=== PATIENT | male | born 1960 | race Caucasian/White ===

== ENCOUNTER → 2016-10-14 | Emergency (ER) | payer MEDICARE, OTHER | LOC: ED 13:51 | DX: I73.9 Peripheral vascular disease, unspecified (principal); E87.6 Hypokalemia; E87.1 Hypo-osmolality and hyponatremia; F17.200 Nicotine dependence, unspecified, uncomplicated; Z88.2 Allergy status to sulfonamides | CPT/HCPCS: 80053; 85025; 93925; 99284; J7040 ==

== ENCOUNTER → 2016-11-16 | Emergency (ER) | payer MEDICARE, OTHER ==
[~2016-11-16] VITALS: Ht 167.6 cm; Wt 56.7 kg
--- NOTE | ~2016-11-16 | CONS ---
[facility] [address] [place], [place] [address] Draft DATE OF CONSULATION: 11/16/16 IDENTIFICATION The patient came to the ER complaining of left buttock pain for 5 days. He could not eat 5 days ago because he says it hurts and need to have a bowel movement. An ER doctor felt this tender mass and called me thinking it was a perirectal abscess and I looked at him and said, "you know, it very well may be an abscess," but this thing is kind of far away from his rectum and there is no redness at all that I can see, which I usually see with perirectal abscesses as I thought that the patient should have further workup with a CT of his abdomen and pelvis with IV contrast to try to sort this out. The patient carries a little bit of medical baggage with what sounds like excessive alcohol usage. The patient plays it down, but he has elevated LFTs, he has cirrhosis, he has some ascites and bilirubin 7.4, half of is direct and half of is indirect. His AST is up. The radiologist on his CT says he has evidence of cirrhosis and portal hypertension also. The patient says he has not had any fevers. He says he is allergic to nothing. Takes no medicines. Operations includes what sounds like an AF bypass graft in [place] years ago. He appears quite malnourished, quite unkempt and he was a little bit hypotensive when he came in with a blood pressure in the 90s. With pain medicine, went down into the mid-80s, but now it is back up to the 100s with fluids. His white count is 20,000 and the ER doctor already gave him some Vancomycin. I suggested something t h at kills stool bugs like Levaquin and Flagyl and I went and talked to our Hospitalist with a feeling that this man if we operated on him here, we would require help because he is pretty ill looking. Hospitalist suggested Cefepime because he says a lot of our stool bugs are not sensitive to Levaquin, so we added Cefepime and I told him to go ahead and get a CT scan, give him fluids and give him some Potassium because his potassium was 2.8, and it took about an hour to get a CT scan, maybe a little bit longer. I reviewed the CT scan with the radiologist. Radiologist says this is a huge pelvic abscess that is pushing down into his perineum on his gluteus amelia and during the course of this work up, it became obvious that this ean very well might do better wi th possible interventional radiology rather than surgical treatment. I think anesthesia in this fellow who is malnourished and who has likely some severe liver disease could tip him over. Our Hospitalist clearly said that if this ean has cirrhosis, we should not take care of him here. So I went back and talked to the ER doctor and told him I thought that we should ship him somewhere where they have Interventional Radiology, suggested wherever he preferred or the [place]. The rest of his history and physical, he denies hypertension, diabetes, tuberculosis, seizures. Does not know if he has had transfusions. He says he quit smoking today. He said he drinks 3 beers a day, Georges, 16 ounces, I suspect it is more. He has no history of thromboembolic disease. He is not , never been, has 2 children, 1 in [place], 1 in [place]. Does not have any communication with them. A friend of his, Lele Mcintyre, he said to talk to if he has serious problems. He is not employed. 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 He was in the at some point in the past. He says he has had an ID in the past. Does not have any angina. Says his lungs are okay. Denies COPD. Says his GI tract is okay. Denies problems, skin problem, blood problems. Says his muscles are stiff and denies nerve PATIENT NAME: LARRY MCGOVERN CONSULTATION DATE OF : 56 PHYSICIAN: RAUL JAQUEZ MD REPORT #: [id number] REPORT IS CONFIDENTIAL AND NOT TO BE RELEASED WITHOUT AUTHORIZATION [facility] [address] [place], [place] [address] Draft problems. PHYSICAL EXAMINATION VITAL SIGNS: His blood pressure was pulse was in the 80s. He is afebrile. HEAD, EYES, EARS, NOSE, AND THROAT: Appear normal. His face has pretty good size, golf ball sized sebaceous cyst on his cheek, which nobody has dealt with. At some point in future that likely should be dealt with if he survives all this. CHEST: Pretty clear. I told to go ahead and get a chest x-ray. ABDOMEN: Healed midline incision. No abdominal tenderness. EXTREMITIES: He got a palpable right femoral pulse. Cannot feel a left femoral pulse. I suspect that limb of his graft is occluded. I cannot feel any pedal pulses anywhere. RECTAL: Everything feels okay. I got to say he has disk bulging in his left buttock in the perineum a good 3 inches from his anus and a CT kind of confirmed. Our radiologist here says that he cannot do interventional techniques here. I think he should go somewhere where interventional techniques likely should be the first point of attack and if that does not work, other surgical issues. The option is to send him to [place] or to a nearby larger institution that has those capability. It was discussed by me with the ER doctor and hopefully I will get him on road and get him some help. Of note, I did discuss the code situation with the patient. He said he did not want to be coded. I suspect that he already got Cefepime, Flagyl and Vancomycin and Levaquin in him, a little bit of pain medicine, a little bit of nausea medicine. I told him that he ought to put a Laguerre in him, probably put him on some oxygen and get him on the road. I have discussed this thoroughly with the ER doctor, thoroughly with our Hospitalist doctor and hopefully people will be able to help him. Total time spent back and forth to x-ray, seeing the patient in the ER, dictating, reviewing labs and discussing him with the Hospitalist was about an hour. MD LICO Camilo/Essence /[id number] cc: VERONICA Gallo PATIENT NAME: LARRY MCGOVERN CONSULTATION DATE OF : 56 PHYSICIAN: RAUL JAQUEZ MD REPORT #: [id number] REPORT IS CONFIDENTIAL AND NOT TO BE RELEASED WITHOUT AUTHORIZATION
--- NOTE | 2016-11-16 20:16 | EKG ---
[facility] [address] [facility] [place], [place] [address] Signed Normal sinus rhythm Low voltage QRS Prolonged QT Abnormal ECG No previous ECGs available Confirmed by RIAN CALERO MD ([id number]) on 11/16/2016 8:16:30 PM Electronically Signed By: RIAN CALERO MD 11/16/16 2016 PATIENT NAME: LARRY MCGOVERN Kwaku Electrocardiogram DATE OF : 56 PHYSICIAN: RIAN CALERO MD REPORT #: [id number] REPORT IS CONFIDENTIAL AND NOT TO BE RELEASED WITHOUT AUTHORIZATION
== END ==
LOC: ED 09:20
DX: L02.31 Cutaneous abscess of buttock (principal); K65.1 Peritoneal abscess; E80.6 Other disorders of bilirubin metabolism; E87.6 Hypokalemia; E46 Unspecified protein-calorie malnutrition; F17.200 Nicotine dependence, unspecified, uncomplicated; I73.9 Peripheral vascular disease, unspecified; J44.9 Chronic obstructive pulmonary disease, unspecified
CPT/HCPCS: 74177; 80053; 82248; 83605; 83880; 84484; 85025; 85610; 86850; 86900; 86901; 87040; 93005; 93010; 96361; 96365; 96366; 96368; 96375; 99291; 99292; J0692; J1170; J2405; J3370; J3480; J7030; J7060; Q9967

== ENCOUNTER 2019-10-03 10:24 | Emergency (ER) | payer MEDICARE, OTHER ==
[~2019-10-03] VITALS: Ht 167.6 cm; Wt 56.7 kg
--- OUTSIDE RECORDS SUMMARY | ~2019-10-03 | XMS | Encounter Summary ---
Demographics + + + | Address | [address] | | | [place] [address] | + + + | Home Phone | | + + + | Preferred Language | Unknown | + + + | Marital Status | Single | + + + | Presybeterian Affiliation | BAP | + + + | Race | White | + + + | Ethnic Group | Not or | + + + Author + + + | Author | [facility] | + + + | Organization | [facility] [employer] [facility] | + + + | Address | Unknown | + + + | Phone | Unavailable | + + + Support + + +---------+ + | Name | Relationship | Address | Phone | + + +---------+ + | Lele Conley | ECON | Unknown | | + + +---------+ + Care Team Providers + +------+ + | Care Clinical Systems Educator Name | Role | Phone | + +------+ + PCP | Unavailable | + +------+ + Encounter Details +--------+ + + + + | Date | Type | Department | Care Team | Description | +--------+ + + + + | 04/30/ | Respiratory | Respiratory | Nikita Holliday | | | 2007 | Therapy | Therapy [address] | [phone] | | | | | [address] | | | | | | Mailcode: [address] | | | | | | [place], [place] | | | | | | [address] | | | | | | [phone] | | | +--------+ + + + [...] on file | | + + + + + + + | Job Start Date | Occupation | Industry | + + + + | Not on file | Not on file | Not on file | + + + + + + + + | Travel History | Travel Start | Travel End | + + + + + + | No recent travel history available. | + + documented as of this encounter Plan of Treatment Not on filedocumented as of this encounter Procedures + +--------+ + + + | Procedure Name | Priori | Date/Time | Associated Diagnosis | Comments | | | ty | | | | + +--------+ + + + | RESP CARE THERAPY | Routin | 05/01/2007 | | Results for this | | | e | 11:30 PM | | procedure are in the | | | | PST | | results section. | + +--------+ + + + | RESP CARE THERAPY | Routin | 05/01/2007 | | Results for this | | | e | 3:16 AM | | procedure are in the | | | | PST | | results section. | + +--------+ + + + documented in this encounter Results RESP CARE THERAPY (05/01/2007 11:30 PM PST) + + + + + + | Component | Value | Ref Range | Performed | Pathologist | | | | | At | Signature | + + + + + + | RESPIRATORY | Oxygen device on | | [facility] | | | CARE | standby, nasal | | RESPIRATORY | | | | canula.Electronically | | THERAPY | | | | Signed by: George Caputo, | | | | | | SETTLEMENT WORKER | | | | + + + + + + + + | Specimen | + + | | + + + + + | Narrative | Performed At | + + + | Ordered by an unspecified provider. | [facility] | | | RESPIRATORY | | | THERAPY | + + + + + + + + | Performing | Address | City/State/Zipcode | Phone Number | | Organization | | | | + + + + + | [facility] | [address] | [place], [place] | | | THERAPY | [address] | [address] | | + + + + + | [facility] | [address] | [place], [place] | | | THERAPY | [facility] | [address] | | + + + + + RESP CARE THERAPY (05/01/2007 3:16 AM PST) + + + + + + | Component | Value | Ref Range | Performed | Pathologist | | | | | At | Signature | + + + + + + | RESPIRATORY | Nasal cannula at 4 | | [facility] | | | CARE | LPM.Electronically | | RESPIRATORY | | | | Signed by: Fern | | THERAPY | | | | DIE[place] Winter | | | | + + + + + + + + | Specimen | + + | | + + + + + | Narrative | Performed At | + + + | Ordered by an unspecified provider. | [facility] | | | RESPIRATORY | | | THERAPY | + + + + + + + + | Performing | Address | City/State/Zipcode | Phone Number | | Organization | | | | + + + + + | [facility] | [address] | [place], [place] | | | THERAPY | [address] | [address] | | + + + + + | [facility] | [address] | [place], [place] | | | THERAPY | [facility] | [address] | | + + + + + documented in this encounter Visit Diagnoses Not on filedocumented in this encounter"
--- OUTSIDE RECORDS SUMMARY | ~2019-10-03 | XMS | Encounter Summary ---
Demographics + + + | Address | [address] | | | [place] [address] | + + + | Home Phone | | + + + | Preferred Language | Unknown | + + + | Marital Status | Single | + + + | Protestant Affiliation | BAP | + + + | Race | White | + + + | Ethnic Group | Not or | + + + Author + + + | Organization | Unknown | + + + | Address | Unknown | + + + | Phone | Unavailable | + + + Support + + +---------+ + | Name | Relationship | Address | Phone | + + +---------+ + | Lele Conley | ECON | Unknown | | + + +---------+ + Care Team Providers + +------+ + | Care Catalytic Converter Operator Helper Name | Role | Phone | + +------+ + PCP | Unavailable | + +------+ + Encounter Details +--------+ + + + + | Date | Type | Department | Care Team | Description | +--------+ + + + + | // | Discharge | | Bina Harrington, | D/C Summary ODDS | | 2008 | Summary-Tra | | GNP [address] | | | | nscribed | | [facility] | | | | | | [place] [address] | | | | | | [phone] | | +--------+ + + + + [...] + + documented as of this encounter Discharge Summaries Bina Harrington - 05/13/2007 1:35 PM PDT [id number] 8005/02/2007 [id number] FROILAN JUAREZ [id number] Admission Date: 04/29/2007 Discharge Date: 05/02/2007 Staff Physician: Bina Harrington N.P. ADDENDUM The patient phoned prescription of Keflex 500 mg p.o. q.i.d. x5 days to [facility] at [phone]. Bina Harrington N.P. / [id number] / [id number] / [id number] / Reviewed or Edited By Bina Harrington on 05-04-2007 Electronically signed by Orlando Churchill 05-13-2007 01:33:53 PM documented in this encounter Plan of Treatment Not on filedocumented as of this encounter Visit Diagnoses Not on filedocumented in this encounter"
--- OUTSIDE RECORDS SUMMARY | ~2019-10-03 | XMS | Encounter Summary ---
Demographics + + + | Address | [address] | | | [place] [address] | + + + | Home Phone [...] Author + + + | Author | [facility] | + + + | Organization | [facility] | + + + | Address | Unknown | + + + | Phone | Unavailable | + + + Support + + +---------+ + | Name | Relationship | Address | Phone | + + +---------+ + | Lele Conley | ECON | Unknown | | + + +---------+ + Care Team Providers + +------+ + | Care Air Traffic Controller Name | Role | Phone | + +------+ + | No Pcp Per Patient | PCP | Unavailable | + +------+ + Reason for Visit +--------+ + | Reason | Comments | +--------+ + | Sepsis | | +--------+ + | Other | Pelvic Abscess | +--------+ + AUTH/CERT +--------+--------+ + + + + | Status | Reason | Specialty | Diagnoses / | Referred By | Referred To | | | | | Procedures | Contact | Contact | +--------+--------+ + + + + | | | | | | | +--------+--------+ + + + + Encounter Details +--------+ + + + + | Date | Type | Department | Care Team | Description | +--------+ + + + + | 11/17/ | Emergency | [facility] Emergency | Cristhian Mayer, | | | 2016 | | Department [address] | [address] [facility] | | | | | [address] | [facility] [place] | | | | | [facility] | [place], [place] | | | | | [place], [place] | [address] | | | | | [address] | [phone] | | | | | [phone] | | | +--------+ + + + [...] + + documented as of this encounter Medications at Time of Discharge + + + +---------+ + + | Medication | Sig | Dispensed | Refills | Start | End Date | | | | | | Date | | + + + +---------+ + + | | take 1 tablet by | 50 | 0 | 05/26/19 | | | hydrocodone-acetamin | oral route every 4-6 | | | 08 | | | ophen 5-500 mg Oral | hours as needed for | | | | | | Tablet | pain | | | | | + + + +---------+ + + documented as of this encounter Plan of Treatment Not on filedocumented as of this encounter Visit Diagnoses Not on filedocumented in this encounter"
--- OUTSIDE RECORDS SUMMARY | ~2019-10-03 | XMS | Encounter Summary ---
Demographics + + + | Address | [address] | | | [place] [address] | + + + | Home Phone | | + + + | Preferred Language | Unknown | + + + | Marital Status | Single | + + + | Orthodox Affiliation | BAP | + + + | Race | White | + + + | Ethnic Group | Not or | + + + Author + + + | Author | [facility] | + + + | Organization | [facility] | + + + | Address | Unknown | + + + | Phone | Unavailable | + + + Support + + +---------+ + | Name | Relationship | Address | Phone | + + +---------+ + | Lele Conley | ECON | Unknown | | + + +---------+ + Care Team Providers + +------+ + | Care Operator Weapon Locating Radar Name | Role | Phone | + +------+ + PCP | Unavailable | + +------+ + Encounter Details +--------+ + + + + | Date | Type | Department | Care Team | Description | +--------+ + + + + | / | Document-Sc | UNKNOWN DEPARTMENT | Unknown . | | | 2007 | anned | [address] | | | | | | [address] | | | | | | [place], [place] | | | | | | [address] | | | +--------+ + + + [...] | + +--------+ + + + | ORDERS OTHER | | 04/29/2007 | | Results for this | | | | 12:00 AM | | procedure are in the | | | | PST | | results section. | + +--------+ + + + | ORDERS OTHER | | 04/29/2007 | | Results for this | | | | 12:00 AM | | procedure are in the | | | | PST | | results section. | + +--------+ + + + documented in this encounter Results ORDERS OTHER (04/29/2007 12:00 AM PST) + + + | Narrative | Performed At | + + + | | | + + + + + | Transcriptions | + + | Nikita Holliday - 07/22/2011 9:38 AM PDT | + + ORDERS OTHER (04/29/2007 12:00 AM PST) + + + | Narrative | Performed At | + + + | | | + + + + + | Transcriptions | + + | Nikita Holliday - 07/22/2011 10:15 AM PDT | + + documented in this encounter Visit Diagnoses Not on filedocumented in this encounter"
--- OUTSIDE RECORDS SUMMARY | ~2019-10-03 | XMS | Encounter Summary ---
Demographics + + + | Address | [address] | | | [place] [address] | + + + | Home Phone | | + + + | Preferred Language | Unknown | + + + | Marital Status | Single | + + + | Restorationism Affiliation | BAP | + + + | Race | White | + + + | Ethnic Group | Not or | + + + Author + + + | Author | [facility] [employer] [facility] | + + + | Organization | [facility] | + + + | Address | Unknown | + + + | Phone | Unavailable | + + + Support + + +---------+ + | Name | Relationship | Address | Phone | + + +---------+ + | Lele Conley | ECON | Unknown | | + + +---------+ + Care Team Providers + +------+ + | Care Fusion Operator Name | Role | Phone | + +------+ + PCP | Unavailable | + +------+ + Encounter Details +--------+ + + + + | Date | Type | Department | Care Team | Description | +--------+ + + + + | 04/30/ | Respiratory | Respiratory | Nikita Holliday | | | 2007 | Therapy | Therapy [address] [facility] | [phone] | | | | | [address] | | | | | | Mailcode: [address] | | | | | | [place], [place] | | | | | | [address] | | | | | | [phone] | | | +--------+ + + + [...] Caputo, | | | | | | CARPENTER PROTOTYPE | | | | + + + [...] [facility] | [address] | [place], [place] | | | THERAPY | [address] | [address] | | + + + + + | [facility] | [address] | [place], [place] | | | THERAPY | [facility] | [address] | | + + + + + [...] [facility] | [address] | [place], [place] | | | THERAPY | [address] | [address] | | + + + + + | [facility] | [address] | [place], [place] | | | THERAPY | [facility] | [address] | | + + + + + documented in this encounter Visit Diagnoses Not on filedocumented in this encounter"
--- OUTSIDE RECORDS SUMMARY | ~2019-10-03 | XMS | Encounter Summary ---
Demographics + + + | Address | [address] | | | [place] [address] | + + + | Home Phone | | + + + | Preferred Language | Unknown | + + + | Marital Status | Single | + + + | Tenriism Affiliation | BAP | + + + | Race | White | + + + | Ethnic Group | Not or | + + + Author + + + | Author | [facility] | + + + | Organization | [facility] [employer] [facility] | + + + | Address | Unknown | + + + | Phone | Unavailable | + + + Support + + +---------+ + | Name | Relationship | Address | Phone | + + +---------+ + | Lele Conley | ECON | Unknown | | + + +---------+ + Care Team Providers + +------+ + | Care .Net Developer Name | Role | Phone | + +------+ + PCP | Unavailable | + +------+ + Encounter Details +--------+ + + + + | Date | Type | Department | Care Team | Description | +--------+ + + + + | 05/24/ | Telephone | Vascular Surgery | Orlando Mancilla, | | | 2007 | | at [facility] [address] | [address] | | | | | [address] | [address] | | | | | Physicians [place], | [place], [place] | | | | | [address] [place] [address] | [address] | | | | | [place], [place] | [phone] | | | | | [address] | | | | | | [phone] | | | +--------+ + + + [...]
--- OUTSIDE RECORDS SUMMARY | ~2019-10-03 | XMS | Encounter Summary ---
Demographics + + + | Address | [address] | | | [place] [address] | + + + | Home Phone [...] Author + + + | Author | [facility] | + + + | Organization | [facility] [employer] [facility] | + + + | Address | Unknown | + + + | Phone | Unavailable | + + + Support + + +---------+ + | Name | Relationship | Address | Phone | + + +---------+ + | Lele Conley | ECON | Unknown | | + + +---------+ + Care Team Providers + +------+ + | Care Environmental Scientist Name | Role | Phone | + [...] | | | | | [address] [facility] | [facility] [address] | | | | | [address] Mailcode: [address] | [place], [place] | | | | | [facility] | [address] | | | | | [place], [place] | [phone] | | | | | [address] | | | | | | [phone] | | | +--------+ + + + [...] + + + + | PRODUCT | [id number] | | [facility] | | | UNIT [...] + + + + + | [facility] DEPARTMENT OF | [address] | [place] [address] | | | PATHOLOGY | [address] | | | + + + + + | [facility] DEPARTMENT OF | [address] | [place] [address] | | | PATHOLOGY | [address] [...] | + + + + + | [facility] | [address] [facility] | [place] [address] | | | PATHOLOGY | [address] | | | + + + + + | [facility] DEPARTMENT OF | [facility] | [place] [address] | | | PATHOLOGY | [address] | | | + + + + + documented in this encounter Visit Diagnoses Not on filedocumented in this encounter"
--- OUTSIDE RECORDS SUMMARY | ~2019-10-03 | XMS | Clinical Summary ---
Demographics + + + | Address | [address] | | | [place] [address] | + + + | Home Phone | | + + + | Preferred Language | Unknown | + + + | Marital Status | Single | + + + | Episcopalian Affiliation | BAP | + + + | Race | White | + + + | Ethnic Group | Not or | + + + Author + + + | Author | NON REVENUE LOCATIONS | + + + | Organization | NON REVENUE LOCATIONS | + + + | Address | Unknown | + + + | Phone | Unavailable | + + + Support + + +---------+ + | Name | Relationship | Address | Phone | + + +---------+ + | Lele Conley | ECON | Unknown | | + + +---------+ + Care Team Providers + +------+ + | Care Painter And Body Mechanic Apprentice Name | Role | Phone | + +------+ + | No Pcp Per Patient | PCP | Unavailable | + +------+ + Source Comments [facility] is fully live [facility] both [facility] and [facility] Allergies Not on File Medications + + + +---------+------+------+-------+ | Medication | Sig | Dispensed | Refills | Star | End | Statu | | | | | | t | Date | s | | | | | | Date | | | + + + +---------+------+------+-------+ | | take 1 tablet by | 50 | 0 | 03/2 | | Activ | | hydrocodone-acetamin | oral route every 4-6 | | | 7/20 | | e | | ophen 5-500 mg Oral | hours as needed for | | | 08 | | | | Tablet | pain | | | | | | + + + +---------+------+------+-------+ Active Problems Not on file Social History + +-------+ +--------+------+ | Tobacco [...] recent travel history available. | + + Last Filed Vital Signs Not on file Plan of Treatment + + + + + | Health Maintenance | Due Date | Last Done | Comments | + + + + + | Influenza (Flu) | | | | | vaccination (#1) | 9 | | | + + + + + | Pneumococcal | Aged Out | | No longer eligible | | vaccination | | | based on patient's | | | | | age to complete this | | | | | topic | + + + + + Results Not on filefrom Last 3 Months Insurance + +--------+ +--------+ + +--------+ | Payer | Benefi | Subscriber | Effect | Phone | Address | Type | | | t Plan | ID | lance | | | | | | / | | Dates | | | | | | Group | | | | | | + +--------+ +--------+ + +--------+ | MEDICARE | MEDICA | xxxxxxxxxx | 04/30/19 | [phone] | [address] | [address] | | | RE A & | | 08-Pre | [phone] | [phone] | [address] | | | B | | sent | | [place] | | | | | | | | [address] | | + +--------+ +--------+ + +--------+ | SYSTEMS MANAGER MEDICAID | SYSTEMS MANAGER | xxxxxxxx | 10/31/19 | | | Medica | | | CAREOR | | 12-Pre | | | id | | | | | sent | | | | | | HEALTH | | | | | | | | SHARE | | | | | | + +--------+ +--------+ + +--------+ + +--------+ +--------+ + + | Guarantor Name | Accoun | Relation to | Date | Phone | Billing Address | | | t Type | Patient | of | | | | | | | | | | + +--------+ +--------+ + + | Jairo Theodore | Person | Self | [birth year] | [address] | | | al/Fam | | [address] | [phone] | [address] [place], | | | [place] | | | [address] (Home) | [place] [address] | + +--------+ +--------+ + +"
--- OUTSIDE RECORDS SUMMARY | ~2019-10-03 | XMS | Encounter Summary ---
Demographics + + + | Address | [address] | | | [place] [address] | + + + | Home Phone | | + + + | Preferred Language | Unknown | + + + | Marital Status | Single | + + + | Jainism Affiliation | BAP | + + + | Race | White | + + + | Ethnic Group | Not or | + + + Author + + + | Author | [facility] | + + + | Organization | [facility] | + + + | Address | Unknown | + + + | Phone | Unavailable | + + + Support + + +---------+ + | Name | Relationship | Address | Phone | + + +---------+ + | Lele Conley | ECON | Unknown | | + + +---------+ + Care Team Providers + +------+ + | Care Eligibility Consultant Name | Role | Phone | + +------+ + PCP | Unavailable | + +------+ + Encounter Details +--------+ + + + + | Date | Type | Department | Care Team | Description | +--------+ + + + + | 04/29/ | Procedure - | Vascular Surgery | Orlando Churchill, | Operative Report | | 2007 | | Interventional 3[address] | [address] | | | | Transcribed | [address] [facility] | Beny Ayesha Catherine | | | | | [address] Mail[address]: [address] | [place], [place] | | | | | [facility] | [address] | | | | | [place], [place] | [phone] | | | | | [address] | | | | | | [phone] | | | +--------+ + + + [...] Churchill MD - 04/30/2007 12:00 AM PST [id number] | | [id number] THEODORE LARRY [id number] Date: | | 04/30/2007 Attending Surgeon: Orlando Churchill M.D. Co-Surgeon: Rudolph Brewer M.D. | | Oil Burner(s): Jacky Morgan M.D. 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 Postoperative Diagnosis(es): Abdominal aortic | | pseudoaneurysm. Procedures Performed: Endovascular repair of abdominal aortic | | pseudoaneurysm. Anesthesia: General. Indications: This is a 47-year-old man who was | | flown to [facility] with an abdominal aortic pseudoaneurysm at the [...] The aneurysm was repaired with 2 Zenith Cook endovascular components. | | The most proximal [...] into the | | abdominal aorta. A 4-Cambodian pigtail catheter was then placed over the guidewire at | | approximately the level of the renal artery origins. A separate site on the graft limb | | was then punctured with an 18-gauge needle, and the guidewire advanced into the | | abdominal aorta. The patient was systematically heparinized at this point. A 16-Cambodian | | sheath was then placed over [...] aortofemoral graft limb. An | | iliac reflector driller and deburrer that is 12 mm at the proximal [...] | condition. Orlando Churchill M.D. OUSMANE / [id number] / [id number] / [id number] / D: | | 04/30/2007 Electronically signed [...] direct vision into the abdominal aorta. A 4-Cambodian pigtail | | catheter was then placed over the guidewire at approximately the level of | | the renal artery origins. | | | | A separate site on the graft limb was then punctured with an 18-gauge | | needle, and the guidewire advanced into the abdominal aorta. The patient | | was systematically heparinized at this point. A 16-Cambodian sheath was then | | placed over [...] | | aortofemoral graft limb. An iliac reflector driller and deburrer that is 12 mm at the proximal [...] | | GJL / HS | | [id number] / [id number] / [id number] / | | | | | | | | | | | | Electronically signed by Orlando Churchill 05-13-2007 01:33:44 PM | | | | | + + documented in this encounter Visit Diagnoses Not on filedocumented in this encounter"
--- OUTSIDE RECORDS SUMMARY | ~2019-10-03 | XMS | Encounter Summary ---
Demographics + + + | Address | [address] | | | [place] [address] | + + + | Home Phone [...] Providers + +------+ + | Care Vegetable Loader Machine Operator Name | Role | Phone | [...] Rd | | | | | | [place] [address] | | +--------+ + + + + [...] documented as of this encounter Discharge Summaries Roman Swartz - 05/13/2007 1:34 PM [facility] [id number] FROILAN JUAREZ [id number] Admission Date: 04/29/2007 Discharge Date: 05/02/2007 Staff [...] abdominal aortic pseudoaneurysm. He was transferred to [facility] via [facility] for definitive care. During [...] appointment. I also e-mailed the Vascular Surgery herpetologist with the patient's information to call the patient to schedule appointment as well. The patient should also follow up with his primary care doctor in 1 to 2 weeks and is to call to schedule appointment. Roman Swartz M.D. Orlando Churchill M.D. PDF / HS [id number] / [id number] / [id number] / Reviewed or Edited By Roman Swratz M.D. on 05-10-2007 Electronically signed by Orlando Churchill 05-13-2007 01:33:23 PM documented in this encounter Plan of Treatment Not on filedocumented as of this encounter Visit Diagnoses Not on filedocumented in this encounter"
--- OUTSIDE RECORDS SUMMARY | ~2019-10-03 | XMS | Encounter Summary ---
Demographics + + + | Address | [address] | | | [place] [address] | + + + | Home Phone | | + + + | Preferred Language | Unknown | + + + | Marital Status | Single | + + + | Sikh Affiliation | BAP | + + + | Race | White | + + + | Ethnic Group | Not or | + + + Author + + + | Author | [facility] | + + + | Organization | [facility] | + + + | Address | Unknown | + + + | Phone | Unavailable | + + + Support + + +---------+ + | Name | Relationship | Address | Phone | + + +---------+ + | Lele Conley | ECON | Unknown | | + + +---------+ + Care Team Providers + +------+ + | Care Insulation Board Coater Operator Name | Role | Phone | [...] + + | 11/17/ | Emergency | [facility] Emergency | Cristhian Mayer, | | | 2016 | | Department [address] | [address] [facility] | | | | | [address] | [facility] [place] | | | | | [facility] | [place], [place] | | | | | [place], [place] | [address] | | | | | [address] | [phone] | | | | | [phone] | | | +--------+ + + + [...]
--- OUTSIDE RECORDS SUMMARY | ~2019-10-03 | XMS | Encounter Summary ---
Demographics + + + | Address | [address] | | | [place] [address] | + + + | Home Phone | | + + + | Preferred Language | Unknown | + + + | Marital Status | Single | + + + | Christian Affiliation | BAP | + + + | Race | White | + + + | Ethnic Group | Not or | + + + Author + + + | Author | [facility] | + + + | Organization | [facility] | + + + | Address | Unknown | + + + | Phone | Unavailable | + + + Support + + +---------+ + | Name | Relationship | Address | Phone | + + +---------+ + | Lele Conley | ECON | Unknown | | + + +---------+ + Care Team Providers + +------+ + | Care Hog Room Supervisor Name | Role | Phone | [...] | | | | | [place], | | | | | | [place] [address] | | | +--------+ + + + [...] | + + | 05/02/2007 12:07 PM PST Anesthesia PostOp Report | | | | Patient: LARRY THEODORE [facility] Rec: [id number] Sex M Bdate: 1960 | | Date/Time Data | | Entered Into [facility] | | Anesth PostOp | | Surgery Date [id number] 05/02/07 12:07 | | Anesthesiologist NOEL CASH 05/02/07 12:07 | | | + + documented in this encounter Visit Diagnoses Not on filedocumented in this encounter"
--- OUTSIDE RECORDS SUMMARY | ~2019-10-03 | XMS | Encounter Summary ---
Demographics + + + | Address | [address] | | | [place] [address] | + + + | Home Phone | | + + + | Preferred Language | Unknown | + + + | Marital Status | Single | + + + | Sikhism Affiliation | BAP | + + + | Race | White | + + + | Ethnic Group | Not or | + + + Author + + + | Author | [facility] [employer] [facility] | + + + | Organization | [facility] | + + + | Address | Unknown | + + + | Phone | Unavailable | + + + Support + + +---------+ + | Name | Relationship | Address | Phone | + + +---------+ + | Lele Conley | ECON | Unknown | | + + +---------+ + Care Team Providers + +------+ + | Care Shake Packer Name | Role | Phone | [...] | | | | | [address] [facility] | [facility] [address] | | | | | Rd Mailcode: [address] | [place], [place] | | | | | [facility] | [address] | | | | | [place], [place] | [phone] | | | | | [address] | | | | | | [phone] | | | +--------+ + + + [...] + + + + | PRODUCT | [id number] | | [facility] | | | UNIT [...] | + + + + + | [facility] DEPARTMENT OF | [address] | [place] [address] | | | PATHOLOGY | [address] | | | + + + + + | [facility] DEPARTMENT OF | [address] | [place] [address] | | | PATHOLOGY | [address] [...] | + + + + + | [facility] | [address] [facility] | [place] [address] | | | PATHOLOGY | [address] | | | + + + + + | [facility] DEPARTMENT OF | [facility] | [place] [address] | | | PATHOLOGY | [address] | | | + + + + + documented in this encounter Visit Diagnoses Not on filedocumented in this encounter"
--- OUTSIDE RECORDS SUMMARY | ~2019-10-03 | XMS | Encounter Summary ---
Demographics + + + | Address | [address] | | | [place] [address] | + + + | Home Phone [...] Team Providers + +------+ + | Care Cna Pct Name | Role | Phone | + [...] | | | | cribed | | [facility] | | | | | | [place] [address] | | | | | | [phone] | | +--------+ + + + + [...] Bina Harrington - 05/18/2007 9:27 AM PDT [id number] 05/12/19 [id number] FROILAN JUAREZ [id number] Date: 05/12/2007 Patient: Jairo Theodore MR# [id number] The patient called to say that he is not able to keep his appointment on May 16, 2007, due to transportation issues. The patient cannot afford gas from [employer]. He states he is doing well. His incision line is without erythema, edema, or exudate. He is having no pain and not requiring any oxycodone. He is in the process of finding a PCP. He does have a 6-month refill of his metoprolol which he is taking. Bina Harrington N.P. / [id number] / [id number] / [id number] / [id number] C: 05/18/2007 rosa documented in this encounter Plan of Treatment Not on filedocumented as of this encounter Visit Diagnoses Not on filedocumented in this encounter"
--- OUTSIDE RECORDS SUMMARY | ~2019-10-03 | XMS | Encounter Summary ---
Demographics + + + | Address | [address] | | | [place] [address] | + + + | Home Phone | | + + + | Preferred Language | Unknown | + + + | Marital Status | Single | + + + | Voodoo Affiliation | BAP | + + + [...] Team Providers + +------+ + | Care Superintendent Building Name | Role | Phone | + [...] [address] | | | | | | [place] [address] | | +--------+ + + + + [...] Summaries Roman Swartz - 05/13/2007 1:34 PM [facility] [id number] FROILAN JUAREZ [id number] Admission Date: 04/29/2007 Discharge Date: 05/02/2007 Staff [...] abdominal aortic pseudoaneurysm. He was transferred to [facility] via [facility] for definitive care. [...] appointment. I also e-mailed the Vascular Surgery maintenance scheduler with the patient's information to call the patient to schedule appointment as well. The patient should also follow up with his primary care doctor in 1 to 2 weeks and is to call to schedule appointment. Roman Swartz M.D. Orlando Churchill M.D. PDF / HS [id number] / [id number] / [id number] / Reviewed or Edited By Roman Swartz M.D. on 05-10-2007 Electronically signed by Orlando Churchill 05-13-2007 01:33:23 PM documented in this encounter Plan of Treatment Not on filedocumented as of this encounter Visit Diagnoses Not on filedocumented in this encounter"
--- OUTSIDE RECORDS SUMMARY | ~2019-10-03 | XMS | Encounter Summary ---
Demographics + + + | Address | [address] | | | [place] [address] | + + + | Home Phone | | + + + | Preferred Language | Unknown | + + + | Marital Status | Single | + + + | Yazidism Affiliation | BAP | + + + | Race | White | + + + | Ethnic Group | Not or | + + + Author + + + | Author | [facility] | + + + | Organization | [facility] | + [...] Providers + +------+ + | Care Cloth Folder Hand Name | Role | Phone | [...] [address] | | | | | [place], [place] | [place], [place] | | | | | [address] | [address] | | | | | [phone] | [phone] | | | | | | | [...] [facility] DEPARTMENT OF | [facility] | [place] [address] | | | PATHOLOGY | [address] | | | + + + + + | [place] DEPARTMENT OF | [facility] | [place] [address] | | | PATHOLOGY | [address] [...] [facility] DEPARTMENT OF | [address] | [place] [address] | | | PATHOLOGY | [address] | | | + + + + + | [facility] DEPARTMENT OF | [address] | [place] [address] | | | PATHOLOGY | [address] [...] DEPARTMENT OF | [address] | [place] [address] | | | PATHOLOGY | [address] | | | + + + + + | [facility] DEPARTMENT OF | [address] | [place] [address] | | | PATHOLOGY | [address] [...] [facility] DEPARTMENT | [address] | [place] [address] | | | PATHOLOGY | [address] | | | + + + + + | [facility] | [address] [place] [address] | [place] [address] | | | PATHOLOGY | [address] [...] | [place] DEPARTMENT OF | [address] | [place] [address] | | | PATHOLOGY | [address] | | | + + + + + | [facility] DEPARTMENT OF | [address] | [place] [address] | | | PATHOLOGY | [address] | | | + + + + + MAGNESIUM, PLASMA (05/01/2007 2:10 AM PST) + +-------+ + + + | Component | Value | Ref Range | Performed | Pathologist | | | | | At | Signature | + +-------+ + + + | MAGNESIUM,P | 2.2 | 1.8 - 2.5 mg/dL | [place] | | | [facility] | | | [...] [facility] DEPARTMENT OF | [address] | [place] [address] | | | PATHOLOGY | [address] | | | + + + + + | [facility] DEPARTMENT OF | [address] | [place] [address] | | | PATHOLOGY | [address] [...] [facility] DEPARTMENT OF | [address] | [place] [address] | | | PATHOLOGY | [address] | | | + + + + + | [place] DEPARTMENT OF | [address] | [place] [address] | | | PATHOLOGY | [address] [...] | + + + + + | [facility] | [address] | [place] [address] | | | PATHOLOGY | [address] | | | + + + + + | [facility] | [address] | [place] [address] | | | PATHOLOGY | [address] [...] DEPARTMENT OF | [address] | [place] [address] | | | PATHOLOGY | [address] | | | + + + + + | [place] DEPARTMENT OF | [address] | [place] [address] | | | PATHOLOGY | [address] [...] | + + + + + | [facility] | [address] | [place] [address] | | | PATHOLOGY | [address] | | | + + + + + | [facility] | [address] | [place] [address] | | | PATHOLOGY | [address] [...] DEPARTMENT OF | [address] | [place] [address] | | | PATHOLOGY | [address] | | | + + + + + | [facility] DEPARTMENT OF | [address] | [place] [address] | | | PATHOLOGY | [address] [...] | + + + + + | [facility] | [address] | [place] [address] | | | PATHOLOGY | [address] | | | + + + + + | [facility] | [address] | [place] [address] | | | PATHOLOGY | [address] [...] | + + + + + | [facility] | [facility] | [place] [address] | | | PATHOLOGY | [address] | | | + + + + + | [facility] DEPARTMENT OF | [facility] | [place] [address] | | | PATHOLOGY | [address] [...] [facility] DEPARTMENT OF | [address] | [place] [address] | | | PATHOLOGY | [address] | | | + + + + + | [facility] DEPARTMENT OF | [address] | [place] [address] | | | PATHOLOGY | [address] [...] DEPARTMENT OF | [address] | [place] [address] | | | PATHOLOGY | [address] | | | + + + + + | [facility] DEPARTMENT OF | [address] | [place] [address] | | | PATHOLOGY | [address] | | | + + + + + PROTHROMBIN TIME (04/30/2007 6:30 PM PST) + + + + + + | Component | Value | Ref Range | Performed | Pathologist | | | | | At | Signature | + + + + + + | INR | 1.19Comment: | 0.90 - 1.20 INR | [facility] | | | | PT INR [...] DEPARTMENT OF | [address] | [place] [address] | | | PATHOLOGY | [address] | | | + + + + + | [facility] | [address] | [place] [address] | | | PATHOLOGY | [address] [...] endograftPrimary | | | | | | investment banking manager: Mickey | | | | | | Rigoberto | | | | | | attending investment banking manager: | | | | | | Rudolph Brewer | | | | | | JackyPrimarysurgeon: | | | | | | Leroy Jay M.D.Primary | | | | | | attending surgeon: | | | | | | Zhao | | | | | | GregoryM.D.Preoperative | | | | | | diagnosis: Proximal | | | | | | anastomoticpseudoaneurys | | | | | | mPostoperative | | | | | | diagnosis: | | | | | | SameOperations:Operation | | | | | | 1. 4-Slovak pigtail | | | | | | catheter and abdominal | | | | | | aortaOperation 2. | | | | | | 22-71 reversed graft | | | | | | proximallyOperation 3. | | | | | | 14-88 iliac | | | | | | extensiondistallyOperati | | | | | | on 4. Palmaz 4010 | | | | | | stent within | | | | | | endograftOperation5. | | | | | | 5-Slovak pigtail | | | | | | [...] | | | | | technique a 4-Slovak | | | | | | pigtail [...] a | | | | | | 16-Slovak sheath was | | | | | [...] | | | | | | the 16-Slovak sheath and | | | | | [...] | | | | | | balloon. A5-Slovak | | | | | | pigtail [...] above.STATUS | | | | | | FINAL / Dr. ROCKY BERNAL | | | | | | A. | | | | + + + + + + + + | Specimen | + + | | + + + +---------+ + + | Performing | Address | City/State/Zipcode | Phone Number | | Organization | | | | + +---------+ + + | [facility] DEPARTMENT OF | | | | | [...] | + + + + + | [facility] | [facility] | [place] [address] | | | PATHOLOGY | [address] | | | + + + + + | [facility] DEPARTMENT OF | [address] | [place] [address] | | | PATHOLOGY | [address] | | | + + + + + PHOSPHORUS, PLASMA (04/30/2007 4:05 AM PST) + +-------+ + + + | Component | Value | Ref Range | Performed | Pathologist | | | | | At | Signature | + +-------+ + + + | PHOSPHORUS, | 2.9 | 2.4 - 4.7 mg/dL | [facility] [...] DEPARTMENT OF | [address] | [place] [address] | | | PATHOLOGY | [address] | | | + + + + + | [place] DEPARTMENT OF | [address] | [place] [address] | | | PATHOLOGY | [address] [...] [facility] DEPARTMENT OF | [address] | [place] [address] | | | PATHOLOGY | [address] | | | + + + + + | [facility] DEPARTMENT OF | [address] | [place] [address] | | | PATHOLOGY | [address] [...] [facility] DEPARTMENT OF | [address] | [place] [address] | | | PATHOLOGY | [address] | | | + + + + + | [place] DEPARTMENT OF | [address] | [place] [address] | | | PATHOLOGY | [address] [...] DEPARTMENT OF | [address] | [place] [address] | | | PATHOLOGY | [address] | | | + + + + + | [facility] | [address] | [place] [address] | | | PATHOLOGY | [address] [...] the | | | | | | [place] and | | | | | [...] | + +---------+ + + | [facility] DEPARTMENT OF | | | | [...] the | | | | | | [place] and | | | | | [...] | + +---------+ + + | [facility] DEPARTMENT OF | | | | [...] | | + +---------+ + + | [facility] DEPARTMENT OF | | | | | [...] | + + + + + | [facility] | [address] [place] [address] | [place] [address] | | | PATHOLOGY | [address] | | | + + + + + | [facility] DEPARTMENT | [address] [place] [address] | [place] [address] | | | PATHOLOGY | [address] [...] | + + + + + | [facility] | [address] | [place] [address] | | | PATHOLOGY | [address] | | | + + + + + | [facility] | [address] | [place] [address] | | | PATHOLOGY | [address] [...] | | | PROTEIN | performed by [facility] | | | | | | [facility] | | | | | | [facility]. | | | | + + + + + + + + | Specimen | + + | | + + + + + + + | Performing | Address | City/State/Zipcode | Phone Number | | Organization | | | | + + + + + | [facility] | [address] | [place] [address] | | | LABORATORY | | | [...] DEPARTMENT OF | [address] | [place] [address] | | | PATHOLOGY | [address] | | | + + + + + | [facility] DEPARTMENT OF | [address] | [place] [address] | | | PATHOLOGY | [address] [...] (L) | 60 - 99 mg/dL | [facility] | | | PLASMA | | | [...] DEPARTMENT OF | [address] | [place] [address] | | | PATHOLOGY | [address] | | | + + + + + | [facility] DEPARTMENT OF | [address] | [place] [address] | | | PATHOLOGY | [address] | | | + + + + + SEDIMENTATION RATE (04/29/2007 6:15 PM PST) + + + + + + | Component | Value | Ref Range | Performed | Pathologist | | | | | At | Signature | + + + + + + | SEDIMENTATI | Quantity not Sufficient | <16 mm/hr | [facility] | | | ON RATE | for [...] [facility] DEPARTMENT OF | [address] | [place] [address] | | | PATHOLOGY | [address] | | | + + + + + | [place] DEPARTMENT OF | [address] | [place] [address] | | | PATHOLOGY | [address] [...] [facility] DEPARTMENT OF | [address] | [place] [address] | | | PATHOLOGY | [address] | | | + + + + + | [facility] DEPARTMENT OF | [address] | [place] [address] | | | PATHOLOGY | [address] [...] [facility] DEPARTMENT OF | [address] | [place] [address] | | | PATHOLOGY | [address] | | | + + + + + | [facility] DEPARTMENT OF | [address] | [place] [address] | | | PATHOLOGY | [address] [...] | + + + + + | [facility] | [address] | [place] [address] | | | PATHOLOGY | [address] | | | + + + + + | [facility] | [facility] | [place] [address] | | | PATHOLOGY | [address] | | | + + + + + PROTHROMBIN TIME (04/29/2007 6:15 PM PST) + + + + + + | Component | Value | Ref Range | Performed | Pathologist | | | | | At | Signature | + + + + + + | INR | 1.05Comment: | 0.90 - 1.20 INR | [facility] [...] [facility] DEPARTMENT | [address] | [place] [address] | | | PATHOLOGY | [address] | | | + + + + + | [facility] | [address] | [place] [address] | | | PATHOLOGY | [address] [...] + | Ionized Calcium, Whole Blood | [facility] | | | DEPARTMENT OF | | | PATHOLOGY | + + + + + + + + | Performing | Address | City/State/Zipcode | Phone Number | | Organization | | | | + + + + + | [facility] DEPARTMENT OF | [facility] | [place] [address] | | | PATHOLOGY | [address] | | | + + + + + | [facility] DEPARTMENT OF | [address] | [place] [address] | | | PATHOLOGY | [address] [...] | + + + + + | [facility] | [address] | [place] [address] | | | PATHOLOGY | [address] | | | + + + + + | [facility] | [address] | [place] [address] | | | PATHOLOGY | [address] | | | + + + + + documented in this encounter Visit Diagnoses Not on filedocumented in this encounter"
--- OUTSIDE RECORDS SUMMARY | ~2019-10-03 | XMS | Encounter Summary ---
Demographics + + + | Address | [address] | | | [place] [address] | + + + | Home Phone | | + + + | Preferred Language | Unknown | + + + | Marital Status | Single | + + + | Buddhism Affiliation | BAP | + + + | Race | White | + + + | Ethnic Group | Not or | + + + Author + + + | Author | [facility] | + + + | Organization | [facility] | + + + | Address | Unknown | + + + | Phone | Unavailable | + + + Support + + +---------+ + | Name | Relationship | Address | Phone | + + +---------+ + | Lele Conley | ECON | Unknown | | + + +---------+ + Care Team Providers + +------+ + | Care Manager Managed Backup Services Name | Role | Phone | + [...] [address] | | | | | | [place], [place] | | | | | | [address] | | | +--------+ + + + [...]
--- OUTSIDE RECORDS SUMMARY | ~2019-10-03 | XMS | Encounter Summary ---
Demographics + + + | Address | [address] | | | [place] [address] | + + + | Home Phone | | + + + | Preferred Language | Unknown | + + + | Marital Status | Single | + + + | Gnosticism Affiliation | BAP | + + + [...] Team Providers + +------+ + | Care Cane Weigher Name | Role | Phone | + [...] | | | | cribed | | [facility] | | | | | | [place] [address] | | | | | | [phone] | | +--------+ + + + + [...] Bina Harrington - 05/18/2007 9:27 AM PDT [id number] 05/12/19 [id number] [address] [id number] Date: 05/12/2007 Patient: Jairo Theodore MR# [id number] The patient called to say that he is not able to keep his appointment on May 16, 2007, due to transportation issues. The patient cannot afford gas from [employer]. He states he is doing well. His incision line is without erythema, edema, or exudate. He is having no pain and not requiring any oxycodone. He is in the process of finding a PCP. He does have a 6-month refill of his metoprolol which he is taking. Bina Harrington N.P. / [id number] / [id number] / [id number] / [id number] C: 05/18/2007 rosa documented in this encounter Plan of Treatment Not on filedocumented as of this encounter Visit Diagnoses Not on filedocumented in this encounter"
--- OUTSIDE RECORDS SUMMARY | ~2019-10-03 | XMS | Encounter Summary ---
Demographics + + + | Address | [address] | | | [place] [address] | + + + | Home Phone | | + + + | Preferred Language | Unknown | + + + | Marital Status | Single | + + + | Hindu Affiliation | BAP | + + + | Race | White | + + + | Ethnic Group | Not or | + + + Author + + + | Author | [facility] | + + + | Organization | [facility] | + + + | Address | Unknown | + + + | Phone | Unavailable | + + + Support + + +---------+ + | Name | Relationship | Address | Phone | + + +---------+ + | Lele Conley | ECON | Unknown | | + + +---------+ + Care Team Providers + +------+ + | Care Chef Instructor Name | Role | Phone | + [...] | | | Transcribed | [address] [facility] | [address] Ayesha Catherine | | | | | Florin Mailcode: OP11 | [place], [place] | | | | | [facility] | [address] | | | | | [place], [place] | [phone] | | | | | [address] | | | | | | [phone] | | | +--------+ + + + [...] Churchill MD - 04/30/2007 12:00 AM PST [id number] | | [id number] THEODORE LARRY [id number] Date: | | 04/30/2007 Attending Surgeon: Orlando Churchill M.D. Co-Surgeon: Rudolph Brewer M.D. | | Desk Officer(s): Jacky Morgan M.D. 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 Postoperative Diagnosis(es): Abdominal aortic | | pseudoaneurysm. Procedures Performed: Endovascular repair of abdominal aortic | | pseudoaneurysm. Anesthesia: General. Indications: This is a 47-year-old man who was | | flown to [facility] with an abdominal aortic pseudoaneurysm [...] into the | | abdominal aorta. A 4-Namibian pigtail catheter was then placed over the guidewire at | | approximately the level of the renal artery origins. A separate site on the graft limb | | was then punctured with an 18-gauge needle, and the guidewire advanced into the | | abdominal aorta. The patient was systematically heparinized at this point. A 16-Namibian | | sheath was then placed over [...] aortofemoral graft limb. An | | iliac veneer manufacturer that is 12 mm at the proximal [...] | condition. Orlando Churchill M.D. OUSMANE / [id number] / [id number] / [id number] / D: | | 04/30/2007 Electronically signed [...] direct vision into the abdominal aorta. A 4-Namibian pigtail | | catheter was then placed over the guidewire at approximately the level of | | the renal artery origins. | | | | A separate site on the graft limb was then punctured with an 18-gauge | | needle, and the guidewire advanced into the abdominal aorta. The patient | | was systematically heparinized at this point. A 16-Namibian sheath was then | | placed over [...] | | aortofemoral graft limb. An iliac veneer manufacturer that is 12 mm at the proximal [...] | | GJL / HS | | [id number] / [id number] / [id number] / | | | | | | | | | | | | Electronically signed by Orlando Churchill 05-13-2007 01:33:44 PM | | | | | + + documented in this encounter Visit Diagnoses Not on filedocumented in this encounter"
--- OUTSIDE RECORDS SUMMARY | ~2019-10-03 | XMS | Encounter Summary ---
Demographics + + + | Address | [address] | | | [place] [address] | + + + | Home Phone | | + + + | Preferred Language | Unknown | + + + | Marital Status | Single | + + + | Synagogue Affiliation | BAP | + + + [...] Team Providers + +------+ + | Care Lumber Cutter Name | Role | Phone | [...] | | | | nscribed | | [facility] | | | | | | [place] [address] | | | | | | [phone] | | +--------+ + + + + [...] Bina Harrington - 05/13/2007 1:35 PM PDT [id number] 8005/02/2007 [id number] [address]UARE[address] [id number] Admission Date: 04/29/2007 Discharge Date: 05/02/2007 Staff Physician: Bina Harrington N.P. ADDENDUM The patient phoned prescription of Keflex 500 mg p.o. q.i.d. x5 days to [facility] at [phone]. Bina Harrington N.P. / [id number] / [id number] / [id number] / Reviewed or Edited By Bina Harrington on 05-04-2007 Electronically signed by Orlando Churchill 05-13-2007 01:33:53 PM documented in this encounter Plan of Treatment Not on filedocumented as of this encounter Visit Diagnoses Not on filedocumented in this encounter"
--- OUTSIDE RECORDS SUMMARY | ~2019-10-03 | XMS | Clinical Summary ---
Demographics + + + | Address | [address] | | | [place] [address] | + + + | Home Phone [...] Team Providers + +------+ + | Care Pulp Mixer Name | Role | Phone | + +------+ + | No Pcp Per Patient | PCP | Unavailable | + +------+ + Source Comments [facility] Allergies Not on File Medications + + [...] | | | | | | | [id number] | | + +--------+ +--------+ + +--------+ | SUPERVISOR GRADING MEDICAID | SUPERVISOR GRADING | xxxxxxxx | 10/31/19 | | | [...] | | | 0 (Home) | [place] [address] | + +--------+ +--------+ + +"
--- OUTSIDE RECORDS SUMMARY | ~2019-10-03 | XMS | Encounter Summary ---
Demographics + + + | Address | [address] | | | [place] [address] | + + + | Home Phone | | + + + | Preferred Language | Unknown | + + + | Marital Status | Single | + + + | Latter-Day Affiliation | BAP | + + + | Race | White | + + + | Ethnic Group | Not or | + + + Author + + + | Author | [facility] [employer] [facility] | + + + | Organization | [facility] | + + + | Address | Unknown | + + + | Phone | Unavailable | + + + Support + + +---------+ + | Name | Relationship | Address | Phone | + + +---------+ + | Lele Conley | ECON | Unknown | | + + +---------+ + Care Team Providers + +------+ + | Care Flight Operations Coordinator Name | Role | Phone | [...] | | | | Physicians Katelyn, | [place], [place] | | | | | [address] [place] [address] | [address] | | | | | [place], [place] | [phone] | | | | | [address] | | | | | | [phone] | | | +--------+ + + + [...]
--- OUTSIDE RECORDS SUMMARY | ~2019-10-03 | XMS | Encounter Summary ---
Demographics + + + | Address | [address] | | | [place] [address] | + + + | Home Phone [...] | Author | [facility] [employer] [facility] | + + + | Organization | [facility] | [...] Team Providers + +------+ + | Care Vest Front Presser Name | Role | Phone | + [...] | | | | | [place], | | | | | | [place] [address] | | | +--------+ + + + [...] | | | | Patient: LARRY THEODORE [facility] Rec: [id number] Sex M Bdate: 1960 | | Date/Time Data | | Entered Into [facility] | | Anesth PostOp | | Surgery Date [id number] 05/02/07 12:07 | | Anesthesiologist NOEL CASH 05/02/07 12:07 | | | + + documented in this encounter Visit Diagnoses Not on filedocumented in this encounter"
--- OUTSIDE RECORDS SUMMARY | ~2019-10-03 | XMS | Encounter Summary ---
Demographics + + + | Address | [address] | | | [place] [address] | + + + | Home Phone [...] Author + + + | Author | [email or web address] | + + + | Organization | [facility] | + + + | Address | Unknown | + + + | Phone | Unavailable | + + + Support + + +---------+ + | Name | Relationship | Address | Phone | + + +---------+ + | Lele Conley | ECON | Unknown | | + + +---------+ + Care Team Providers + +------+ + | Care Immunohematologist Name | Role | Phone | + [...] [address] | | | | | [place], [place] | [place] | | | | | [address] | [address] | | | | | [phone] | [phone] | | | | | | | [...] | + + + + + | [facility] DEPARTMENT OF | [facility] | [place] [address] | | | PATHOLOGY | [address] | | | + + + + + | [place] DEPARTMENT OF | [facility] | [place] [address] | | | PATHOLOGY | [address] [...] | + + + + + | [facility] DEPARTMENT OF | [address] | [place] [address] | | | PATHOLOGY | [address] | | | + + + + + | [facility] DEPARTMENT OF | [address] | [place] [address] | | | PATHOLOGY | [address] [...] | + + + + + | [facility] DEPARTMENT OF | [address] | [place] [address] | | | PATHOLOGY | [address] | | | + + + + + | [facility] DEPARTMENT OF | [address] | [place] [address] | | | PATHOLOGY | [address] [...] | + + + + + | [facility] DEPARTMENT | [address] [facility] | [place] [address] | | | PATHOLOGY | [address] | | | + + + + + | [facility] | [address] [place] [address] | [place] [address] | | | PATHOLOGY | [address] [...] DEPARTMENT OF | [address] | [place] [address] | | | PATHOLOGY | [address] | | | + + + + + | [facility] DEPARTMENT OF | [address] | [place] [address] | | | PATHOLOGY | [address] [...] | + + + + + | [facility] DEPARTMENT OF | [address] | [place] [address] | | | PATHOLOGY | [address] | | | + + + + + | [facility] DEPARTMENT OF | [address] | [place] [address] | | | PATHOLOGY | [address] [...] | + + + + + | [facility] DEPARTMENT OF | [address] | [place] [address] | | | PATHOLOGY | [address] | | | + + + + + | [place] DEPARTMENT OF | [address] | [place] [address] | | | PATHOLOGY | [address] [...] + + + + + | [facility] | [address] [facility] | [place] [address] | | | PATHOLOGY | [address] | | | + + + + + | [facility] | [address] [facility] | [place] [address] | | | PATHOLOGY | [address] [...] | + + + + + | [facility] DEPARTMENT OF | [address] | [place] [address] | | | PATHOLOGY | [address] | | | + + + + + | [place] DEPARTMENT OF | [address] | [place] [address] | | | PATHOLOGY | [address] [...] + + + + + | [facility] | [address] [facility] | [place] [address] | | | PATHOLOGY | [address] | | | + + + + + | [facility] | [address] [facility] | [place] [address] | | | PATHOLOGY | [address] [...] | + + + + + | [facility] DEPARTMENT OF | [address] | [place] [address] | | | PATHOLOGY | [address] | | | + + + + + | [facility] DEPARTMENT OF | [address] | [place] [address] | | | PATHOLOGY | [address] [...] + + + + + | [facility] | [address] | [place] [address] | | | PATHOLOGY | [address] | | | + + + + + | [facility] | [address] | [place] [address] | | | PATHOLOGY | [address] [...] + + + + + | [facility] | [facility] | [place] [address] | | | PATHOLOGY | [address] | | | + + + + + | [facility] DEPARTMENT OF | [facility] | [place] [address] | | | PATHOLOGY | [address] [...] | + + + + + | [facility] DEPARTMENT OF | [address] [facility] | [place] [address] | | | PATHOLOGY | [address] | | | + + + + + | [facility] DEPARTMENT OF | [address] | [place] [address] | | | PATHOLOGY | [address] [...] DEPARTMENT OF | [address] | [place] [address] | | | PATHOLOGY | [address] | | | + + + + + | [facility] DEPARTMENT OF | [address] | [place] [address] | | | PATHOLOGY | [address] | | | + + + + + PROTHROMBIN TIME (04/30/2007 6:30 PM PST) + + + + + + | Component | Value | Ref Range | Performed | Pathologist | | | | | At | Signature | + + + + + + | INR | 1.19Comment: | 0.90 - 1.20 INR | [facility] | | | | [...] DEPARTMENT OF | [address] | [place] [address] | | | PATHOLOGY | [address] | | | + + + + + | [facility] | [address] | [place] [address] | | | PATHOLOGY | [address] [...] endograftPrimary | | | | | | liner installer: Mickey | | | | | | Rigoberto | | | | | | attending liner installer: | | | | | | Rudolph [...] | | | | | | 1. 4-Peruvian pigtail | | | | | | [...] endograftOperation5. | | | | | | 5-Peruvian pigtail | | | | | | [...] | | | | | technique a 4-Peruvian | | | | | | pigtail [...] a | | | | | | 16-Peruvian sheath was | | | | | [...] | | | | | | the 16-Peruvian sheath and | | | | | [...] | | | | | | balloon. A5-Peruvian | | | | | | pigtail [...] + + + + + | [facility] | [facility] | [place] [address] | | | PATHOLOGY | [address] | | | + + + + + | [facility] DEPARTMENT OF | [address] | [place] [address] | | | PATHOLOGY | [address] [...] DEPARTMENT OF | [address] | [place] [address] | | | PATHOLOGY | [address] | | | + + + + + | [place] DEPARTMENT OF | [address] [facility] | [place] [address] | | | PATHOLOGY | [address] [...] | + + + + + | [facility] DEPARTMENT OF | [address] | [place] [address] | | | PATHOLOGY | [address] | | | + + + + + | [facility] DEPARTMENT OF | [address] | [place] [address] | | | PATHOLOGY | [address] [...] | + + + + + | [facility] DEPARTMENT OF | [address] [facility] | [place] [address] | | | PATHOLOGY | [address] | | | + + + + + | [place] DEPARTMENT OF | [address] | [place] [address] | | | PATHOLOGY | [address] [...] DEPARTMENT OF | [address] | [place] [address] | | | PATHOLOGY | [address] | | | + + + + + | [facility] | [address] [facility] | [place] [address] | | | PATHOLOGY | [address] [...] the | | | | | | [place] and | | | | | [...] | | + +---------+ + + | [facility] DEPARTMENT OF | | [...] the | | | | | | [place] and | | | | | [...] | | + +---------+ + + | [facility] DEPARTMENT OF | | [...] + + + + + | [facility] | [address] [place] [address] | [place] [address] | | | PATHOLOGY | [address] | | | + + + + + | [facility] DEPARTMENT | [address] [place] [address] | [place] [address] | | | PATHOLOGY | [address] [...] + + + + + | [facility] | [address] [facility] | [place] [address] | | | PATHOLOGY | [address] | | | + + + + + | [facility] | [address] [facility] | [place] [address] | | | PATHOLOGY | [address] [...] + + + + + | [facility] | [address] | [place] [address] | | | LABORATORY | | | [...] DEPARTMENT OF | [address] | [place] [address] | | | PATHOLOGY | [address] | | | + + + + + | [facility] DEPARTMENT OF | [address] | [place] [address] | | | PATHOLOGY | [address] [...] (L) | 60 - 99 mg/dL | [facility] | | | PLASMA | | | [...] | + + + + + | [facility] DEPARTMENT OF | [address] | [place] [address] | | | PATHOLOGY | [address] | | | + + + + + | [facility] DEPARTMENT OF | [address] | [place] [address] | | | PATHOLOGY | [address] [...] | + + + + + | [facility] DEPARTMENT OF | [address] [facility] | [place] [address] | | | PATHOLOGY | [address] | | | + + + + + | [place] DEPARTMENT OF | [address] [facility] | [place] [address] | | | PATHOLOGY | [address] [...] | + + + + + | [facility] DEPARTMENT OF | [address] [facility] | [place] [address] | | | PATHOLOGY | [address] | | | + + + + + | [facility] DEPARTMENT OF | [address] [facility] | [place] [address] | | | PATHOLOGY | [address] [...] | + + + + + | [facility] DEPARTMENT OF | [address] | [place] [address] | | | PATHOLOGY | [address] | | | + + + + + | [facility] DEPARTMENT OF | [address] | [place] [address] | | | PATHOLOGY | [address] [...] + + + + + | [facility] | [address] [facility] | [place] [address] | | | PATHOLOGY | [address] | | | + + + + + | [facility] | [facility] | [place] [address] | | | PATHOLOGY | [address] [...] | + + + + + | [facility] DEPARTMENT | [address] [facility] | [place] [address] | | | PATHOLOGY | [address] | | | + + + + + | [facility] | [address] [facility] | [place] [address] | | | PATHOLOGY | [address] [...] | + + + + + | [facility] DEPARTMENT OF | [facility] | [place] [address] | | | PATHOLOGY | [address] | | | + + + + + | [facility] DEPARTMENT OF | [address] [facility] | [place] [address] | | | PATHOLOGY | [address] [...] + + + + + | [facility] | [address] | [place] [address] | | | PATHOLOGY | [address] | | | + + + + + | [facility] | [address] | [place] [address] | | | PATHOLOGY | [address] | | | + + + + + documented in this encounter Visit Diagnoses Not on filedocumented in this encounter"
--- OUTSIDE RECORDS SUMMARY | 2019-10-03 10:28 | XMS ---
PreManage Notification: LARRY MCGOVERN Security Youth Minister Events No recent Security Events currently on file CRITERIA MET - History of Sepsis Dx CARE PROVIDERS There are no care providers on record at this time. Brionna has no Care Guidelines for this patient. Luis VISIT COUNT (12 MO.) 1 ARELI [place] TOTAL 1 NOTE: Visits indicate total known visits. ED/C VISIT TRACKING (12 MO.) 10/03/2019 10:25 [place] TYPE: Emergency COMPLAINT: - SKIN ISSUE, R LEG/FOOT SWOLLEN INPATIENT VISIT TRACKING (12 MO.) No inpatient visits to display in this time frame [email or web address]
== END 2019-10-03 20:00 | disposition short-term general hospital (02) ==
LOC: ED 10:24
DX: L03.115 Cellulitis of right lower limb (principal); I72.4 Aneurysm of artery of lower extremity; F17.200 Nicotine dependence, unspecified, uncomplicated
CPT/HCPCS: 73630; 75635; 76857; 80053; 83605; 85025; 96365; 99284-25; J0696; Q9967

== ENCOUNTER 2019-10-23 11:17 | Emergency (ER) | payer MEDICARE, OTHER ==
[~2019-10-23] VITALS: Ht 167.6 cm; Wt 56.7 kg
--- OUTSIDE RECORDS SUMMARY | ~2019-10-23 | XMS | Encounter Summary ---
Demographics + + + | Address | [address] | | | [place] [address] | + + + | Home Phone | | + + + | Preferred Language | Unknown | + + + | Marital Status | Single | + + + | Quaker Affiliation | [id number] | + + + | Race | White | + + + | Ethnic Group | Not or | + + + Author + + + | Author | [facility] | | | and [place] | + + + | Organization | [facility] | | | and [place] | + + + | Address | Unknown | + + + | Phone | Unavailable | + + + Support + + +---------+ + | Name | Relationship | Address | Phone | + + +---------+ + | Lele Maysmartin | ECON | Unknown | | + + +---------+ + Care Team Providers + +------+ + | Care Fibreglass Gun Hand Name | Role | Phone | + +------+ + PCP | Unavailable | + +------+ + Encounter Details +--------+ + + + + | Date | Type | Department | Care Team | Description | +--------+ + + + + | 11/16/ | Hospital | [facility] | Conversion | Pain | | 2017 | Encounter | CONVERSION [address] | Transaction, | | | | | [address] | Provider Unknown | | | | | [place] | | | | | | [phone] | (Fax) | | | | | [phone] | | | +--------+ + + + + Social History + +-------+ +--------+------+ | Tobacco Use | Types | Packs/Day | Years | Date | | | | | Used | | + +-------+ +--------+------+ | Never Assessed | | | | | + +-------+ +--------+------+ + + + | Sex Assigned at | Date Recorded | | | | + + + | Not on file | | + + + documented as of this encounter Plan of Treatment +--------+---------+ + + + | Date | Type | Specialty | Care Team | Description | +--------+---------+ + + + | 10/24/ | Office | Vascular Surgery | Ricci De León DNP | | | 2019 | Visit | | [address] | | | | | | [place] | | | | | | [address] | | | | | | | | +--------+---------+ + + + documented as of this encounter Procedures + +--------+ + + + | Procedure Name | Priori | Date/Time | Associated Diagnosis | Comments | | | ty | | | | + +--------+ + + + | CT ABDOMEN PELVIS W | Routin | 11/16/2016 | | Results for this | | CONTRAST | e | 1:57 PM | | procedure are in the | | | | PDT | | results section. | + +--------+ + + + documented in this encounter Results CT Abdomen Pelvis w Contrast (11/16/2016 1:57 PM PDT) + + | Specimen | + + | | + + + + + | Narrative | Performed At | + + + | This is a non-reportable procedure without a radiologist report and | | | is used for image storage only | | + + + + + | Procedure Note | + + | Rafita Doran Cristiane - 10/13/2018 10:07 AM PDT This is a non-reportable procedure | | without a radiologist report and isused for image storage only | + + documented in this encounter Visit Diagnoses + + | Diagnosis | + + | Pain Generalized pain | + + documented in this encounter"
--- OUTSIDE RECORDS SUMMARY | ~2019-10-23 | XMS | Encounter Summary ---
Demographics + + + | Address | [address] | | | [place] [address] | + + + | Home Phone | | + + + | Preferred Language | Unknown | + + + | Marital Status | Single | + + + | Sabianism Affiliation | [id number] | + + + | Race | White | + + + | Ethnic Group | Not or | + + + Author + + + | Author | [facility] | | | and [place] | + + + | Organization | [facility] | | | and [...] Team Providers + +------+ + | Care Library Media Specialist Name | Role | Phone | + [...] | | | sm | | | +--------+--------+ + + + + Encounter Details +--------+---------+ + + + | Date | Type | Department | Care Team | Description | +--------+---------+ + + + | 10/06/ | Surgery | [facility] | Magdiel Arteaga MD | REPAIR | | 2020 | | [facility] | [address] | [place] | | | | OPER[address] | [address] | [address]EM[address]AL | | | | [address] | [place] [address] | | | | | [place], [place] | [phone] | | | | | [address] | | | | | | [phone] | | | +--------+---------+ + + + Social History + +-------+ +--------+ + | [...] of beer | 30.0 | last drink 10/01 | + + +---------+ + + + + | Sex Assigned at | Date Recorded | | | | + + + | Not on file | | + + + documented as of this encounter Last Filed Vital Signs + + + + + | Vital Sign | Reading | Time Taken | Comments | + + + + + | Blood Pressure | 171/82 | 10/07/2019 7:17 AM | | | | | PDT | | + + + + + | Pulse | 76 | 10/07/2019 7:17 AM | | | | | PDT | | + + + + + | Temperature | 36.4 C (97.6 F) | 10/07/2019 7:17 AM | | | | | PDT | | + + + + + | Respiratory Rate | 18 | 10/07/2019 7:17 AM | | | | | PDT | | + + + + + | Oxygen Saturation | 98% | 10/07/2019 7:17 AM | | | | | PDT | | + + + + + | Inhaled Oxygen | - | - | | | Concentration | | | | + + + + + | Weight | 54.3 kg (119 lb 11.2 | 10/03/2019 10:24 PM | | | | oz) | PDT | | + + + + + | Height | 170.2 cm (5' 7") | 10/03/2019 10:24 PM | | | | | PDT | | + + + + + | Body Mass Index | 22.86 | 10/03/2019 10:24 PM | | | | | PDT | | + + + + + documented in this encounter Discharge Summaries Mundo Pack MD - 10/16/2019 10:20 AM PDTFormatting of this note might be diff erent from the original. Hospitalist Discharge Summary Patient: Jairo Theodore : 1960 Date of Admission: 10/03/2019 Date of Discharge: 10/16/2019 Treatment Team: Magdiel Arteaga MD Discharging Provider: Mundo Pack MD Discharge Diagnoses: Principal Problem: Pseudoaneurysm right aorto femoral bypass Active Problems: Alcohol abuse Tobacco abuse Thrombosis of femoral-femoral bypass graft Resolved Problems: Cellulitis of right foot Peripheral arterial disease Post-operative pain Postprocedural hypotension Acute hyponatremia Leucocytosis Procedures Performed: Procedure(s) (LRB): THROMBECTOMY / EMBOLECTOMY of fem fem bypass (N/A) BYPASS GRAFT FEMORAL-POPLITEAL (Bilateral) ANGIOGRAM - EXTREMITY BILATERAL (24684) (Bilateral) Chief Complaint: No chief complaint on file. Hospital Course: Jairo Theodore is a 59 y.o. male Patient is a 59-year-old gentleman with past medical hist ory significant for coronary artery disease, hypertension, ongoing tobacco use, ongoing alco hol use, PAD, status post previous aorto bi femoral bypass and subsequent occluded limb and then underwent aorto uni-endograft, and who was admitted on 10/03/2019 Transfer from [facility] with bilateral hip and pelvic burning pain which occurs when he walks short distances relieved by resting and was also found to have a low right groin pseudoaneurysm fr om the aortobifemoral drop graft and cellulitis, patient was started on IV Unasyn initially then subsequently oral Augmentin for his cellulitis which he completed while he was in the h ospital, vascular surgery consulted, patient put on CIWA protocol for alcohol withdrawal, an d the patient subsequently had "1. Repair of right femoral limb of axillary bifemoral bypass with interposition dacron graft 2. Right femoral endarterectomy with patch angioplasty 3. Left femoral endarterectomy 4. Right to left femoral to femoral artery bypass with 8 mm PTFE" by vascular surgery on 10/07/2019. Patient had estimated blood loss of 1 L and was given 2 units of packed RBC post surgery, and was initially on Wade-Synephrine, subsequently pulse signal was lost on 10/09/2019 the pat ient was taken back to the OR and patient had"Right retroperitoneal exposure of right aortob ifemoral limb -Repair of large right groin pseudoaneurysm with interposition dacron graft -Right common femoral endarterectomy with patch angioplasty -Left common femoral endarterectomy -Right to left femoral to femoral artery bypass with 8 mm ringed PTFE graft " by vascular s ramiro, with the patient getting another 2 units of PRBC intraoperatively the patient was in ICU postop was able to get weaned off Wade-Synephrine and was transferred to acute care floo r service on 10/10/2019, continue to recover well there after with the patient getting his wo und VAC of bilateral groin wounds on 10/13/2019, subsequently the AUGUSTUS drain was removed 020 with the patient continued to progress well, was seen by OT PT considered safe enough to be discharged home with home OT PT and arrangements made for home health and nurse and woun d care visits patient then discharged home. Discharge Exam and Data: Vital Signs: BP 144/74 | Pulse 99 | Temp 36.7 C (98 F) (Oral) | Resp 18 | Ht 1.702 m (5' 7") | Wt 66.2 kg (145 lb 15.1 oz) | SpO2 93% | BMI 22.86 kg/m Physical Exam General Appearance: Alert, cooperative, no distress, appears older than stated age Head: Normocephalic, without obvious abnormality, atraumatic Eyes: PERRL, pale conjunctiva/corneas clear, EOM's intact, Ears: Normal external ear canals, both ears Nose: Nares normal, septum midline, mucosa normal, no drainage or sinus tenderness Throat: Lips, mucosa, and tongue normal, hole without drainage on right cheek; teeth and gums normal Neck: Supple, symmetrical, trachea midline, no adenopathy; thyroid: No enlargement/tenderness/nodules; no carotid bruit or JVD Back: Symmetric, no curvature, ROM normal, no CVA tenderness Lungs: Clear to auscultation bilaterally, respirations unlabored Chest wall: No tenderness or deformity Heart: Regular rate and rhythm, S1 and S2 normal, no murmur, rub or gallop Abdomen: Soft, tenderness around incision sites, bandaged, no bleeding,, bowel sounds a ctive all four quadrants, no masses, no organomegaly, incision site no erythema or discharg e healing well. And bandage no strikethrough bleeding from AUGUSTUS drain site Extremities: Positive bilateral groin wounds with positive bandaged wounds on both groi ns, no strikethrough bleeding. Both thighs are soft not stiff Pulses: 2+ and symmetric all extremities Skin: Skin color, texture, turgor normal, no rashes or lesions Lymph nodes: Cervical, supraclavicular, and axillary nodes normal Neurologic: CNII-XII intact. Normal strength, sensation and reflexes throughout Recent Labs Recent Labs Lab 10/16/19 0511 WBC 12.59* HGB 9.7* HCT 28.2* PLT 274 Recent Labs Lab 10/16/19 0511 10/15/19 0513 NA -- 134* K 3.0* 4.3 CL -- 106 CO2 -- 23 BUN -- 3* CALCIUM -- 7.5* Recent Radiology Results Xr Chest Ap Portable Result Date: 10/11/2019 CHEST PORTABLE ONE VIEW CLINICAL INFORMATION: Leukocytosis. COMPARISON: XR COUNT VERIFICATI ON NO CHARGE (10/07/2019); CT ABDOMEN PELVIS W CONTRAST (11/16/2016); FINDINGS: Coarsened inter stitial markings throughout the lungs bilaterally. Poorly defined opacities in the left mid lung and right lung base. Costophrenic angles are clear. No pneumothorax. Cardiac silhouet te is unremarkable. 1. Poorly defined opacities in the left mid lung and right lung base, which may represent a telectasis or consolidation. 2. Architectural changes concerning for COPD. Final Report Sign ed by: Jacky Mercado John Sign Date/Time: 10/11/2019 10:39 AM Vas Carotid Duplex Bilateral Result Date: 10/04/2019 CAROTID DUPLEX ULTRASOUND CLINICAL INFORMATION: Uncontrolled hypertension and cholesterol. COMPARISON: None PROCEDURE: Evaluation of the extracranial carotid and vertebral arteries wi production of real-time images integrating B-mode two-dimensional vascular structure, Dop pler spectral analysis and color-flow Doppler imaging. Carotid stenosis measurements based o n Society of Radiologists in Ultrasound consensus and [place] Criteria. FINDINGS: Peak sy stolic and diastolic velocities measured in the common and internal carotid arteries. All ve locities recorded in cm/sec: Anterior Circulation: Right CCA: 62/14 ICA: 56/13 ECA: 147/21 I CA/CCA: .9 Left CCA: 74/15 ICA: 67 /18 ECA: 101/11 ICA/CCA: .9 Posterior Circulation: Right: Vertebral: 62/12 Antegrade Left: Vertebral: 75/12 Antegrade Lauren scale images: Right: No si gnificant atherosclerotic plaque or significant stenosis by grayscale imaging. Left: No sign ificant atherosclerotic plaque or significant stenosis by grayscale imaging. Atherosclerotic vascular disease of both carotid bulbs but no high-grade stenosis to visual inspection. Mu ltifocal calcified plaque but no high-grade stenosis to visual inspection. There is some sh adowing through the plaques for example at the left carotid bulb on image 33/45. However wa veforms are normal 1. Atherosclerotic vascular disease with some shadowing plaque, limiting proximal left ICA visualization. However, no high-grade stenosis of either internal carotid artery by veloci ty. Final Report Signed by: Jacky Anderson Timothy Sign Date/Time: 10/04/2019 12:06 PM No results found. Outstanding Issues: Principal Problem: Peripheral arterial disease / Pseudoaneurysm right aorto femoral bypass status post v ascular surgery, patient will continue with wound care, [facility], continue with aspirin 81 mg daily, Plavix 75 mg daily, atorv astatin 40 mg daily. Active Problems: Alcohol abuse/ Tobacco abuse advised to stop smoking and drinking Cellulitis of right foot has been completely treated with Augmentin while in the hospital Discharge Information: Follow up: Teresita Bob MD [address] [place] [id number] Follow up for Home health [facility]ound [facility] [address] [place] [phone] Follow up Wound Care and Physical Therapy Discharge Procedure Orders Renal Function Panel Standing Status: Future Standing Exp. Date: 10/15/20 Order Comments: Send to his provider CBC w/ Auto Differential Standing Status: Future Standing Exp. Date: 10/15/20 Order Comments: Send to his provider Phosphorus Standing Status: Future Standing Exp. Date: 10/15/20 Order Comments: Send to his provider Magnesium Standing Status: Future Standing Exp. Date: 10/15/20 Order Comments: Send to his provider Calcium Standing Status: Future Standing Exp. Date: 10/15/20 Order Comments: Send to his provider Referral to Home Health Referral Priority: Routine Referral Type: Evaluate & Treat Referral Reason: Specialty Services Required Requested Specialty: Home Health Services Number of Visits Requested: 1 Diet fat and cholesterol modified; 1000 ml fluid Order Specific Question Answer Comments Type Diet fat and cholesterol modified fluid volume restictions 1000 ml fluid Activity Order Comments: As recommended by PT and OT Leave dressing on - Keep it clean, dry, and intact until clinic visit Order Comments: Until wound care sees you Follow Up Appointments: Follow-up with surgeon (specify): Order Comments: Dr. Arteaga on 10/25/2019 Call MD For: Temperature >100.4 Call MD For: Persistant Nausea and Vomiting Call MD For: Severe Uncontrolled Pain Call MD For: Redness, Tenderness, Or Signs Of Infection (pain, swelling, redness, odor or green/yellow discharge around incision site) Call MD For: Difficulty Breathing, Headache Or Visual Disturbances Call MD For: Persistant Dizziness Or Light-Headedness Call MD For: Extreme Fatigue Discharge Medications New Medications Details acetaminophen 325 mg tablet Take 2 tablets by mouth every 4 hours as needed for Pain (or fever >= 38.6 C (101.5 F)) fo r up to 30 days. aka: TYLENOL aspirin 81 mg chewable tablet Chew and swallow 1 tablet Daily for 30 days. Start: October 17, 2019 atorvaSTATin 40 mg tablet Take 1 tablet by mouth nightly for 30 days. aka: LIPITOR calcium carbonate 500 mg chewable tablet Chew and swallow 2 tablets every 4 hours as needed for Indigestion. aka: TUMS clopidogrel 75 mg tablet Take 1 tablet by mouth Daily. aka: PLAVIX Start: October 17, 2019 Disposition: home Condition: Stable Code Status: Prior Discharge medications reconciliation was completed by myself. I carefully reviewed all the medications with the patient. All the dosages was confirmed with the patient to the best o f patient's knowledge. I resumed most of patient's home medication after talking to the patient. I informed the p atient that, If you are not taking any of those medicines or if you think that dose is not right please talk to the primary care doctor for adjustment of doses and medications. Armani e take all the medication to your PCP and show him what medication you are taking so that he can adjust your medications if needed. An After Visit Summary was printed and given to the patient. Patient verbalized understanding, agreement, and compliance with discharge plan. Discharge took more than 35 minutes, to include final examination, discussion of admission, and preparation of prescriptions, instructions for on-going care, follow-up and documentati on of discharge summary. Mundo Pack MD 10:21 AM PDT documented i n this encounter Discharge Instructions Instructions Michael Abel PA-C - 10/16/2019 Discharge Instructions After Peripheral Artery Bypass Surgery You had a procedure known as peripheral artery bypass surgery. Peripheral arteries send blo od to your legs and feet. Over time,your artery palma may thicken and build up with a fatt y substance (plaque). As plaque builds up in an artery,blood flow can be reduced or even b locked. This can cause peripheral artery disease (PAD). Surgery to go around (bypass) this b lockage is called peripheral artery bypass surgery.A surgeon stitches a special tube (pk t) into the artery above and below the blockage. This creates a new path for blood flow. Activity Talk with your doctor about what you can and can t do as you recover. Don t drive for at ttyrr5dgyd after your surgery or while you are taking opioid pa in medicine (or if you are still having a lot of leg pain). Expect to start walking soon after surgery. Walking helps reduce swelling and helps your cut (incision)heal. But you will likely have some leg swelling after surgery. Don t stand or sit with your feet down for long. When you sit,raise your feet as hig h as you comfortably can. Home care Check your incision every day for signs of infection such as swelling, redness, warmth, or drainage. Don t bathe or soak in a tub or go swimming until your incisions are well healed (severo alvarez at as 2 weeks). You can shower to keep your incisions clean. Just make sure you dry th em well afterward. Take your medicines exactly as directed. Don t skip doses. Prevent skin basurto by testing the temperature of shower water before you get in. Wear slippers or shoes when walking. Don t go barefoot or wear open-toed shoes. Learn to take your pulse in your leg and your foot. Keep a record of your results. Ask y our doctor or nurse which pulse changes might be a problem. Follow-up See your doctor to have your stitches or tasha removed 10 to 14 days after your surger y. When to call your healthcare provider Call your provider right away if you have any of the following: Fever of 100.4F ( 38C) or higher, or as advised by your provider Signs of infection (redness, swelling, or warmth at the incision site) Drainage from your incision Changes in color,temperature,feeling,or movement in either foot Increasing pain or numbness inyour foot or leg Leg swelling that doesn't get better overnight Chest pain or trouble breathing [employer] last reviewed this educational content on 11/29/201819990502-[address] [employer]. [address] [place] [address], [place] [address]. All righ ts reserved. This information is not intended as a substitute for professional medical care. Always follow your healthcare professional's instructions. Smoking and Peripheral Arterial Disease (PAD) Smoking is the greatest single danger to the health of your arteries. It puts you at higher riskforperipheral arterialdisease (PAD). PAD is a disease of the arteries in the legs . If you have PAD, it s likely that other parts of your body are diseased, too. That puts you at high riskfor heart attack or stroke. How can smoking lead to PAD? Smoking causes swelling and redness (inflammation) that leads to plaque forming. Plaque is a waxy material made up of cholesterol and other particles. It can build up in your artery w alls. When there is too much plaque, your arteries can become narrowed and restrict blood fl ow. This then raisesyour risk for PAD and blood clots. It also worsens other risk factors, such as high blood pressure and high cholesterol. These are things that make you more likel y to have artery disease. What happens if you don t quit smoking? You have 2 to 4 times the riskof dying from a heart attack or stroke as a nonsmoker. You have a greater risk of getting severe PAD, pain in your legs when walking (claudicat ion), body tissue due to lack of blood flow (gangrene), or having a leg or foot amputat ed. You are at greater risk for abdominal aortic aneurysm (AAA). This is a bulge in the aort a, a major artery. It can burst suddenly and be fatal. What happens if you quit smoking? Your risk for heart attack and stroke drops as soon as you quit smoking. After 1 year of not smoking, your riskfor heart attack falls by half. In 5 to 15 years after you quit, yourriskfor heart attack or stroke is the same as s omeone who never smoked. Your riskfor amputation and other complications of PAD is reduced. Your risk of developing AAA decreases. To learn more Smokefree.gov/yhkc-lw-dh-expert National Cancer [place] Smoking Quitline:426-32E-TZVN (324-960-8079) [employer] last reviewed this educational content on 12/30/201819996121-[address] [employer]. [address] [place] [address], [place] [address]. All righ ts reserved. This information is not intended as a substitute for professional medical care. Always follow your healthcare professional's instructions. How to Quit Smoking Smoking is a hard habit to break. About 50% of allpeople who have ever smoked have been a ble to quit. Most peoplewho still smoke want to quit. Here are some of the best ways to st op smoking. Keep in mind the health benefits of quitting The health benefits of quitting start right away. They keep improving the longer you go wit hout smoking. Knowing this can help inspire you to stay on track. These benefits occur at an y age. If you are 17 or 70, quitting is a good choice. Some of the health benefits after you r last cigarette include: After 20 minutes: Your blood pressure and pulse return to normal. After 8 hours: Your oxygen levels return to normal. After 2 days: Your ability to smell and taste start to improve as damaged nerves regrow. After 2 to 3 weeks: Your circulation and lung function improve. After 1 to 9 months: Your coughing, congestion, and shortness of breath decrease. Your t iredness decreases. After 1 year: Your risk of heart attack decreases by 50%. After 5 years: Your risk of lung cancer decreases by 50%. Your risk of stroke becomes th e same as a nonsmoker s. Go cold turkey Mostformer smokers quit cold turkey. This means stopping all at once. Trying to cut back slowly often doesn't work as well. This may be because it continues the habit of smoking. Al so you may inhale more smoke while smoking fewer cigarettes. This leads to the same amount o f nicotine in your body. Get support Support programs can be a big help, especially for heavy smokers. These groups offer lectur es, ways to change behavior, and peer support. Here are some ways to find a support program: Free national quitline 070-KPDY-FEU (846-996-5556) [facility] quit-smoking programs [employer] 363-808-5152 [employer] 707-256-7422 Support at home is important too. Family and friends can offer praise and reassurance. If t he smoker in your life finds it hard to quit, encourage them to keep trying. Try juoq-zli-sjpulgj medicine Nicotine replacement therapymay make iteasier to quit. Some aids are available without a prescription. These include a nicotine patch, gum, and lozenges. But it's best to use thes e under the care of your healthcare provider. The skin patch gives a steady supply of nicoti ne. Nicotine gum and lozenges giveshort-time doses of low levels of nicotine. Both methods reduce the craving for cigarettes. If youhave nausea, vomiting, dizziness, weakness, or a fast heartbeat, stop using these products. See your provider. Ask about prescription medicine After reviewingyour smoking patterns and past attempts to quit, your healthcare provider may offer a prescription medicine such as bupropion, varenicline, a nicotine inhaler, or chris al spray. Each has advantages and side effects. Your provider can review these with you. Keep trying Most smokers make many attempts at quitting before they succeed. It s important not to gi ve up. To learn more For more on how to quit smoking, try these resources: www.cdc.gov/tobacco/quit_smoking/ 683-SWMI-JTW (179-083-3660) www.smokefree.gov 339-43N-OCPP (661-399-1445) www.lung.org/stop-smoking/ 800-LUNGUSA (167-919-2230) Herve lynn reviewed this educational content on 01/29/201919996624-[address] [employer]. [address] [place] [address]. All righ ts reserved. This information is not intended as a substitute for professional medical care. Always follow your healthcare professional's instructions. documented in this encounter Medications at Time of Discharge + + + +---------+ + + | Medication | Sig | Dispensed | Refills | Start | End Date | | | | | | Date | | + + + +---------+ + + | acetaminophen | Take 2 tablets by | 120 | 0 | 10/16/19 | | | (TYLENOL) 325 mg | mouth every 4 hours | tablet | | 20 | 0 | | tablet | as needed for Pain | | | | | | | (or fever >= 38.6 C | | | | | | | (101.5 F)) for up to | | | | | | | 30 days. | | | | | + + + +---------+ + + | aspirin 81 mg | Chew and swallow 1 | 30 | 1 | 10/17/19 | | | chewable tablet | tablet Daily for 30 | tablet | | 20 | 0 | | | days. | | | | | + + + +---------+ + + | atorvaSTATin | Take 1 tablet by | 30 | 1 | 10/16/19 | | | (LIPITOR) 40 mg | mouth nightly for 30 | tablet | | 20 | 0 | | tablet | days. | | | | | + + + +---------+ + + | calcium carbonate | Chew and swallow 2 | 90 | 0 | 10/16/19 | | | (TUMS) 500 mg | tablets every 4 | tablet | | 20 | | | chewable tablet | hours as needed for | | | | | | | Indigestion. | | | | | + + + +---------+ + + | clopidogrel | Take 1 tablet by | 30 | 1 | 10/17/19 | | | (PLAVIX) 75 mg | mouth Daily. | tablet | | 20 | | | tablet | | | | | | + + + +---------+ + + documented as of this encounter Progress Notes Celeste Gaviria RN - 10/16/2019 1:12 PM PDTDischarge information discussed with pt inclu ding dressing changes, site care, medications and follow up appointments. Pres[facility] sent to [facility], pt is picking up. Pt going home with friend. Wheelchair escort to exit. VSS . Celeste Gaviria RN 10/16/19 Michael Milian PA- C - 10/16/2019 7:20 AM PDT [facility] Service: Vascular Surgery Progress Note Hospital Day: LOS: 13 days Post-Op Day: 11/06 SUBJECTIVE Patient Summary: The patient is a 59 y.o. 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 He unde rwent aortobifemoral bypass in 1999. 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 He reports that his right foot has been swol roque for about one week now and also developed redness concerning for infection. 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 He was transferred to [facility] for evaluation and Vascular was consulted for management of his right groin pseudoan eurysm. Of note, he continues to drink more than a 6 pack per day and also is smoking 1 ppd currently. He additionally reports bilateral hip and pelvic "burning" which occurs when he w alks short distances that is relieved with resting. He denies any rest pain in either leg. Eyal angel denies any pain in his left leg on a regular basis but reports his left foot has been numb for a long time. Events Overnight: No acute events overnight. AUGUSTUS removed yesterday. Stool becoming more formed. Still having significant serous drainage from his left groin, dressings replaced mu ltiple times. Ambulating without walker. Quite adamant he wound like to go home today. Scheduled Medications aspirin 81 mg Oral Daily atorvaSTATin 40 mg Oral Nightly clopidogrel 75 mg Oral Daily enoxaparin 40 mg Subcutaneous Q24H lactobacillus 1 packet Oral TID sodium chloride 1 g Oral TID Continuous Infusions PRN Medications acetaminophen, calcium carbonate, dextrose, diphenhydrAMINE, diphenoxylate-atropine, docusa te sodium, hydrocortisone, labetalol, LORazepam, Magnesium replacement - NON ICU AND Mag nesium AND magnesium oxide AND magnesium sulfate AND magnesium sulfate, melatoni n, morphine, naloxone, ondansetron, oxyCODONE, Potassium replacement - NON ICU AND Potas sium AND potassium chloride AND potassium chloride AND potassium chloride IVPB ( other volumes & diluents) AND potassium chloride IVPB (other volumes & diluents), mei hernández OBJECTIVE Vital Signs: Vitals: 10/16/19 0706 BP: 144/74 Pulse: 99 Resp: 18 Temp: 36.7 C (98 F) Constitutional: Cachetic HENT: Right cheek with ulceration. Cardiovascular: Normal rate, regular rhythm Pulmonary/Chest: No respiratory distress Abdominal: Incision well approximated without erythema, induration or exudate. Dressing re placed Extremities: Poor muscle tone throughout his lower extremities. 1+ edema in right lower ex tremity and foot. LLE without edema. Groin incisions with mild erythema, well approximated no induration, exudate or dehiscence, cleansed and redressed. Serous drainage noted on dres sings. Left groin AUGUSTUS drain removed today. Above knee incisions well approximated no erythe ma, induration, exudate. Neurological: He is alert and oriented. VASCULAR: 2+PT and multiphasic DP and 1st digit arteries bilaterally. Toes are warm to kush ch, able to wiggle toes and dorsiflex and plantarflex DATA Recent Results (from the past 24 hour(s)) Potassium Collection Time: 10/16/19 5:11 AM Result Value Ref Range K 3.0 (L) 3.5 - 4.9 mmol/L Magnesium Collection Time: 10/16/19 5:11 AM Result Value Ref Range Magnesium 1.7 1.7 - 2.4 mg/dL CBC no Differential Collection Time: 10/16/19 5:11 AM Result Value Ref Range WBC 12.59 (H) 3.80 - 11.00 K/uL Red Blood Cells 3.06 (L) 4.20 - 5.70 M/uL Hemoglobin 9.7 (L) 13.2 - 17.0 g/dL Hematocrit 28.2 (L) 39.0 - 50.0 % MCV 92.2 80.0 - 100.0 fl MCH 31.7 27.0 - 34.0 pg MCHC 34.4 32.0 - 35.5 g/dL RDW-SD 50.3 37 - 53 fl Platelet Count 274 150 - 400 K/uL MPV 10.2 fl PROBLEM LIST Principal Problem: Pseudoaneurysm right aorto femoral bypass Active Problems: Alcohol abuse Tobacco abuse Cellulitis of right foot Peripheral arterial disease Thrombosis of femoral-femoral bypass graft Post-operative pain Acute hyponatremia Leucocytosis ASSESSMENT & PLAN POD 8 Femoral artery to femoral bypass thrombectomy, bilateral femoral to popliteal artery bypasses; POD 9 - Repair of right femoral limb of aorto bifemoral bypass with interposition dacron graft / Right femoral endarterectomy with patch angioplasty / Left femoral endarterec torie / Right to left femoral to femoral artery bypass with 8 mm PTFE - PT pulses and DP si gnals remain unchanged. No new pain in either leg. Ambulating without walker last night and this am. Still having some significant drainage from his left AUGUSTUS site, but it is serous. Con tinue to replace dressings when wet. He will need dressing supplies to go home with. 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 Still recommend discharge ho me with assist for his safety. Bilateral groin incisions remain erythematous, continue with dressing changes if soiled or wet. Continue on aspirin, plavix and statin daily. Appreciate hospitalist help with this patient. Stable for discharge today or tomorrow from surgical sta ndpoint. Will need close follow up given high risk of infection. Follow up in 2 weeks with Edgardo Arteaga. Will also need bilateral arterial duplex with DIANNE as outpatient. Disposition: Inpatient Code Status: Full Michael Abel PA-C 10/16/2019 uolayinka, Gerard Chaparro RN - 10/15/2019 6:52 PM PDTA/O, AUGUSTUS removed today, wounds less oozy today, possible d/ c tomorrow Electronically signed by: Nigel Starkey RN 10/15/2019 6:53 PM PDT undo Pack MD - 10/15/2019 10:30 AM PDT . Jairo Theodore [id number] Hospital Day: 12 SUBJECTIVE Events Overnight: Patient seen and examined at bedside on follow-up. Overnight the tracey walters has patient has been afebrile vital signs continue to be stable patient continues to b e on room air , his diarrhea has eased up, with the patient getting Imodium, as well his bi lateral groin wound vacs have been removed. Otherwise the patient denies chest pain, shortn ess of breath, he has been eating well. AUGUSTUS drain was removed by vascular surgery today. OBJECTIVE Vital Signs: Blood pressure 150/71, pulse 80, temperature 36.9 C (98.4 F), temperature source Oral, resp. rate 19, height 1.702 m (5' 7"), weight 66.2 kg (145 lb 15.1 oz), SpO2 100 %. Physical Exam General Appearance: Alert, cooperative, no distress, appears older than stated age Head: Normocephalic, without obvious abnormality, atraumatic Eyes: PERRL, pale conjunctiva/corneas clear, EOM's intact, Ears: Normal external ear canals, both ears Nose: Nares normal, septum midline, mucosa normal, no drainage or sinus tenderness Throat: Lips, mucosa, and tongue normal, hole without drainage on right cheek; teeth and gums normal Neck: Supple, symmetrical, trachea midline, no adenopathy; thyroid: No enlargement/tenderness/nodules; no carotid bruit or JVD Back: Symmetric, no curvature, ROM normal, no CVA tenderness Lungs: Clear to auscultation bilaterally, respirations unlabored Chest wall: No tenderness or deformity Heart: Regular rate and rhythm, S1 and S2 normal, no murmur, rub or gallop Abdomen: Soft, tenderness around incision sites, bandaged, no bleeding,, bowel sounds a ctive all four quadrants, no masses, no organomegaly, incision site no erythema or discharg e healing well. Extremities: Positive bilateral groin wounds with positive bandaged wounds on both groi ns, no strikethrough bleeding. Both thighs are soft not stiff Pulses: 2+ and symmetric all extremities Skin: Skin color, texture, turgor normal, no rashes or lesions Lymph nodes: Cervical, supraclavicular, and axillary nodes normal Neurologic: CNII-XII intact. Normal strength, sensation and reflexes throughout DATA Recent Labs Lab 10/15/19 0513 10/14/19 1528 10/14/19 0549 10/13/19 0437 10/12/19 1852 10/12/19 0408 10/11/19 0718 10/10/19 0416 10/09/19 0512 10/09/19 0510 10/08/19 1723 WBC 13.12* -- 12.21* -- -- -- -- 14.13* -- 21.39* 21.52* -- 24.92* -- 26.78 * HGB 9.9* -- 10.0* -- -- 9.5* -- 6.9* -- 7.8* 7.3* -- 8.7* -- 10.2* HCT 28.4* -- 29.1* -- -- 27.5* -- 19.9* -- 22.0* 20.6* -- 24.2* -- 29.7* PLT 242 -- 235 -- -- -- -- 192 -- 192 127* -- 129* -- 130* NA 134* -- 135 -- 135 -- -- 130* < > 128* 129* -- 129* -- 133* K 4.3 3.3* 3.2* < > 3.5 | 3.5 -- < > 3.1* -- 3.5 3.4* -- 3.9 -- 4.0 CL 106 -- 103 -- 104 -- -- 102 -- 100 102 -- 102 -- 106 CO2 23 -- 26 -- 25 -- -- 23 -- 24 20* -- 19* -- 18* ANIONGAP 9 -- 9 -- 10 -- -- 8 -- 8 10 -- 12 -- 13 BUN 3* -- 4* -- <5* -- -- 6* -- 8 12 -- 14 -- 11 CREA 0.60* -- 0.60* -- 0.65* -- -- 0.75 -- 0.89 1.03 -- 1.19 -- 0.69* GLU 76 -- 90 -- 89 -- -- 82 -- 72 94 -- 110* -- 144* CALCIUM 7.5* -- 7.6* -- 7.3* -- -- 7.2* -- 7.2* 6.7* -- 6.4* -- 6.3* TP -- -- -- -- -- -- -- 4.3* -- 4.8* 3.9* -- 4.0* < > -- ALBUMIN -- -- -- -- -- -- -- 2.5* -- 2.8* 2.4* -- 2.4* < > -- LACTATE -- -- -- -- -- -- -- -- -- -- -- 1.8 -- -- -- PHOS -- 1.3* -- -- -- -- -- -- -- -- -- -- 4.0 -- 3.4 MG 1.9 2.1 1.6* -- 1.7 -- -- 1.9 -- -- 1.8 -- 1.7 -- 1.8 BILI -- -- -- -- -- -- -- 1.0 -- 1.1 0.8 -- 0.9 < > -- AST -- -- -- -- -- -- -- 78* -- 73* 64* -- 37 < > -- ALT -- -- -- -- -- -- -- 37 -- 34 31 -- 21 < > -- ALKPHOS -- -- -- -- -- -- -- 80 -- 83 62 -- 55 < > -- < > = values in this interval not displayed. Recent Labs Lab 10/11/19 1116 COLORUA YELLOW CLARITYUA CLEAR SPECGRAVU 1.008 LEUKEST NEGATIVE NITRITEUA NEGATIVE UUROB <1.6 URINEPROTEIN NEGATIVE LABPH 6.0 BLOODUA SMALL* KETONESUA TRACE* BILIRUBINUA NEGATIVE GLUCOSEU NEGATIVE WBCUA 3-5 RBCUA 3-5 SQUAMEPIUA 6-10 BACTERIAUA NONE SEEN No results found. PROBLEM LIST/IMPRESSION/PLAN: Principal Problem: Thrombosis of femoral-femoral bypass graft Peripheral arterial disease Pseudoaneurysm right aorto femoral bypass status postStatus post femoral artery to femoral bypass, thro mbectomy, bilateral femoral to popliteal artery bypasses, repair of right femoral limb of ax illary bifemoral bypass with interposition of Dacron graft, right femoral endarterectomy wit h patch angioplasty left femoral endarterectomy right to left femoral [facility]. Continue with postop vascular surgery care. AUGUSTUS drain removed today and on discussion with vascular surgery if the patient continues to do well possible discharge t omorrow patient only needs front wheeled walker has been ambulating more than 200 feet. Active Problems: Alcohol abuse No signs of alcohol withdrawal Tobacco abuse patient does not appear to have any signs of nicotine withdrawal continu e to advise smoking cessation Cellulitis of right foot continue with Augmentin 875 125 twice daily for 7 doses com pleted, continue with wound care. Post-operative pain patient pain seems to have improved after removal of the drains, co ntinue with pain medication as needed. Acute hyponatremia ? Secondary to SIADH, serum osmolality is low, urine osmolality is normal fluid restriction for now and I have added salt tablets 1 g 3 times daily. It is now improved and is 134 sodium today diarrhea most likely secondary to patient being on amoxicillin, with C. difficile a resu lt being negative will give Lomotil as needed. Disposition: Likely home as recommended by PT Labs pending: pending CBC CMP tomorrow Radiology studies pending: None Cultures pending: Blood culture, Code Status: Full code I explainedlab findings and plan of care to patient and he verbalized understanding and ag reement and had no more questions for me after my interaction with him, he stated that he limon s been in touch with his Merrill, Lele [phone] and he did not want me to call him.. More th an 35 minutes spent directly face to face with patient and more than 65% spent for physical examination and discussing care and counseling about patient illness with patient and relat augusta at bedside, on chart review, coordinating care with other providers, formulating a plan of care and management as well as Computerized Physician Internet Technology Manager. Dictation software, [employer], used which may contain error for similar sounding words even af ter review. Portions of this chart may have been copied from previous notes for continuity of care. Mundo Pack MD, FACP, FAAP 10/15/2019 il son, Chelsi HebertJUICE - 10/15/2019 8:47 AM PDT [facility] Service: Vascular Surgery Progress Note Hospital Day: LOS: 12 days Post-Op Day: POD 7 Femoral artery to femoral bypass thrombectomy, bilateral femoral to pop liteal artery bypasses; POD 8 - Repair of right femoral limb of axillary bifemoral bypass wi th interposition dacron graft / Right femoral endarterectomy with patch angioplasty / Left f emoral endarterectomy / Right to left femoral to femoral artery bypass with 8 mm PTFE SUBJECTIVE Patient Summary: The patient is a 59 y.o. 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 He unde rwent aortobifemoral bypass in 1999. 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 He reports that his right foot has been swol roque for about one week now and also developed redness concerning for infection. 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 He was transferred to [facility] for evaluation and Vascular was consulted for management of his right groin pseudoan eurysm. Of note, he continues to drink more than a 6 pack per day and also is smoking 1 ppd currently. He additionally reports bilateral hip and pelvic "burning" which occurs when he w alks short distances that is relieved with resting. He denies any rest pain in either leg. Eyal angel denies any pain in his left leg on a regular basis but reports his left foot has been numb for a long time. Events Overnight: Showered yesterday, dressing changes over incisions slowing, loose b owel movements decreasing (total of 2 yesterday). Making good progress with PT, able to amb ulate a total 255 feet with a 2 wheeled walker. AUGUSTUS drain in left groin with 160 mL out yeste rday. He is eager to get home and have fresh food from his garden. Scheduled Medications aspirin 81 mg Oral Daily atorvaSTATin 40 mg Oral Nightly clopidogrel 75 mg Oral Daily enoxaparin 40 mg Subcutaneous Q24H lactobacillus 1 packet Oral TID sodium chloride 1 g Oral TID Continuous Infusions PRN Medications acetaminophen, calcium carbonate, dextrose, diphenhydrAMINE, diphenoxylate-atropine, docusa te sodium, hydrocortisone, labetalol, LORazepam, Magnesium replacement - NON ICU AND Mag nesium AND magnesium oxide AND magnesium sulfate AND magnesium sulfate, melatoni n, morphine, naloxone, ondansetron, oxyCODONE, Potassium replacement - NON ICU AND Potas sium AND potassium chloride AND potassium chloride AND potassium chloride IVPB ( other volumes & diluents) AND potassium chloride IVPB (other volumes & diluents), promet emeterio, sencharla OBJECTIVE Vital Signs: Vitals: 10/15/19 0532 BP: 145/73 Pulse: 89 Resp: 18 Temp: 36.5 C (97.7 F) Constitutional: Cachetic HENT: Right cheek with ulceration. Cardiovascular: Normal rate, regular rhythm Pulmonary/Chest: No respiratory distress Abdominal: Incision well approximated without erythema, induration or exudate. Dressing re placed Extremities: Poor muscle tone throughout his lower extremities. 1+ edema in right lower ex tremity and foot. LLE without edema. Groin incisions with mild erythema, well approximated no induration, exudate or dehiscence, cleansed and redressed. Serous drainage noted on dres sings. Left groin AUGUSTUS drain removed today. Above knee incisions well approximated no erythe ma, induration, exudate. Neurological: He is alert and oriented. VASCULAR: 2+PT and multiphasic DP and 1st digit arteries bilaterally. Toes are warm to kush ch, able to wiggle toes and dorsiflex and plantarflex DATA Recent Results (from the past 24 hour(s)) Phosphorus Collection Time: 10/14/19 3:28 PM Result Value Ref Range Phosphorus 1.3 (L) 2.3 - 4.8 mg/dL Magnesium Collection Time: 10/14/19 3:28 PM Result Value Ref Range Magnesium 2.1 1.7 - 2.4 mg/dL Potassium Collection Time: 10/14/19 3:28 PM Result Value Ref Range K 3.3 (L) 3.5 - 4.9 mmol/L Magnesium Collection Time: 10/15/19 5:13 AM Result Value Ref Range Magnesium 1.9 1.7 - 2.4 mg/dL Basic Metabolic Panel Collection Time: 10/15/19 5:13 AM Result Value Ref Range Na 134 (L) 135 - 145 mmol/L K 4.3 3.5 - 4.9 mmol/L Cl 106 99 - 109 mmol/L CO2 23 23 - 32 mmol/L Anion Gap 9 5 - 20 mmol/L Glucose 76 65 - 99 mg/dL BUN 3 (L) 8 - 25 mg/dL Creatinine 0.60 (L) 0.70 - 1.30 mg/dL BUN/Creatinine Ratio 5 Calcium 7.5 (L) 8.5 - 10.5 mg/dL Estimated GFR >60 >60 mL/min/1.73m2 CBC no Differential Collection Time: 10/15/19 5:13 AM Result Value Ref Range WBC 13.12 (H) 3.80 - 11.00 K/uL Red Blood Cells 3.06 (L) 4.20 - 5.70 M/uL Hemoglobin 9.9 (L) 13.2 - 17.0 g/dL Hematocrit 28.4 (L) 39.0 - 50.0 % MCV 92.8 80.0 - 100.0 fl MCH 32.4 27.0 - 34.0 pg MCHC 34.9 32.0 - 35.5 g/dL RDW-SD 50.2 37 - 53 fl Platelet Count 242 150 - 400 K/uL MPV 10.6 fl PROBLEM LIST Principal Problem: Pseudoaneurysm right aorto femoral bypass Active Problems: Alcohol abuse Tobacco abuse Cellulitis of right foot Peripheral arterial disease Thrombosis of femoral-femoral bypass graft Post-operative pain Acute hyponatremia Leucocytosis ASSESSMENT & PLAN POD 7 Femoral artery to femoral bypass thrombectomy, bilateral femoral to popliteal artery bypasses; POD 8 - Repair of right femoral limb of axillary bifemoral bypass with interpositi on dacron graft / Right femoral endarterectomy with patch angioplasty / Left femoral endarte rectomy / Right to left femoral to femoral artery bypass with 8 mm PTFE - PT pulses and DP signals remain unchanged. Patient able to ambulate 255 feet with two wheeled walker during physical therapy and is making good progress toward goal of discharging home with assist. D oes have three stairs to navigate to get into his home that he will have to be able to navig ate safely. AUGUSTUS drain in left groin with 160 mL serous output was removed today. Incisions are well approximated. Bilateral groin incisions with erythema, continue with dressing orellana ges if soiled or wet. Overall dressing changes are slowing and edema has improved. May teresa an incisions with wound cleanser if soiled. Encourage daily shower. Continue on aspirin, p lavix and statin daily. Continue encouraging ambulation with assistance, being OOB to chair and keeping feet elevated to minimize swelling. Call with any neurovascular changes. [facility] this patient. Disposition: Inpatient Code Status: Full Chelsi Arteaga PA-C 10/15/2019 Zuleyka Avila RN - 10/14/2019 6:37 PM PDTPatient's VSS. OOB to chair and ambulated in room. Dr campbell to R groin changed X1. AUGUSTUS drain remains in place. Potassium and magnesium levels chec ked after replacement. Phosphorus checked and low. Replacement ordered. End of shift chart audit complete. Zuleyka Gamez RN P Víctor Slade Chaplain - 10/14/2019 4:57 PM PDTRe-admit risk of 80 triggered visit. Pt sit ting up in chair, welcomed visit. Chp provided caring presence & listening. Pt gave brief hx of illness, surgery, hoped-for recovery & getting to go home early this coming week. Pt did life review r/t friends, losses, evolution of living situation. Pt seemed fairly relaxed, s aid he was getting great care, wanting to get home to help gagan the many veggies coming o ut of his garden. Good visit. Chaplain Víctor Russoy Zuleyka Gamez RN - 10/14/2019 1:17 PM PDTAssumed care of patient. Bedside handoff pe rformed. Agree with previous assessment. Zuleyka Gamez RN undo Pack MD - 10/14/2019 9:23 AM PDT Jairo Theodore [id number] Hospital Day: 11 SUBJECTIVE Events Overnight: Patient seen and examined at bedside on follow-up. Overnight the tracey walters has patient has been afebrile vital signs continue to be stable patient continues to b e on room air , his diarrhea has eased up, with the patient getting Imodium, as well his bi lateral groin wound vacs have been removed. Otherwise the patient denies chest pain, shortn ess of breath, he has been eating well. Count down to 12.1 from 14.13 on 10/12/2019, hemoglo bin is up to 10.0 today after the patient got 2 units of packed RBC on 10/12/2019, platelets are 235. Patient was seen by PT today and was able to ambulate with front-wheeled walker mo re than 200 feet. OBJECTIVE Vital Signs: Blood pressure 146/72, pulse 95, temperature 37.1 C (98.7 F), temperature source Oral, resp. rate 19, height 1.702 m (5' 7"), weight 66.2 kg (145 lb 15.1 oz), SpO2 97 %. Physical Exam General Appearance: Alert, cooperative, no distress, appears older than stated age Head: Normocephalic, without obvious abnormality, atraumatic Eyes: PERRL, pale conjunctiva/corneas clear, EOM's intact, Ears: Normal external ear canals, both ears Nose: Nares normal, septum midline, mucosa normal, no drainage or sinus tenderness Throat: Lips, mucosa, and tongue normal, hole without drainage on right cheek; teeth and gums normal Neck: Supple, symmetrical, trachea midline, no adenopathy; thyroid: No enlargement/tenderness/nodules; no carotid bruit or JVD Back: Symmetric, no curvature, ROM normal, no CVA tenderness Lungs: Clear to auscultation bilaterally, respirations unlabored Chest wall: No tenderness or deformity Heart: Regular rate and rhythm, S1 and S2 normal, no murmur, rub or gallop Abdomen: Soft, tenderness around incision sites, one drain in place with serosanguineou s fluid on the left pelvic area,, bowel sounds active all four quadrants, no masses, no org anomegaly, incision site no erythema or discharge healing well. Extremities: Positive bilateral groin wounds with wound VAC in place, positive bandaged wounds on both coughs, no strikethrough bleeding. Both thighs are soft not stiff Pulses: 2+ and symmetric all extremities Skin: Skin color, texture, turgor normal, no rashes or lesions Lymph nodes: Cervical, supraclavicular, and axillary nodes normal Neurologic: CNII-XII intact. Normal strength, sensation and reflexes throughout DATA Recent Labs Lab 10/14/19 0549 10/13/19 1107 10/13/19 0437 10/12/19 1852 10/12/19 0408 10/11/19 0718 10/10/19 0416 10/09/19 0512 10/09/19 0510 10/08/19 1723 10/07/19 1721 WBC 12.21* -- -- -- -- 14.13* -- 21.39* 21.52* -- 24.92* -- 26.78* < > -- HGB 10.0* -- -- 9.5* -- 6.9* -- 7.8* 7.3* -- 8.7* -- 10.2* < > -- HCT 29.1* -- -- 27.5* -- 19.9* -- 22.0* 20.6* -- 24.2* -- 29.7* < > -- PLT 235 -- -- -- -- 192 -- 192 127* -- 129* -- 130* < > -- NA 135 -- 135 -- -- 130* < > 128* 129* -- 129* -- 133* < > 137 K 3.2* 3.5 3.5 | 3.5 -- < > 3.1* -- 3.5 3.4* -- 3.9 -- 4.0 < > 4.4 CL 103 -- 104 -- -- 102 -- 100 102 -- 102 -- 106 < > 109 CO2 26 -- 25 -- -- 23 -- 24 20* -- 19* -- 18* < > 21* ANIONGAP 9 -- 10 -- -- 8 -- 8 10 -- 12 -- 13 < > 11 BUN 4* -- <5* -- -- 6* -- 8 12 -- 14 -- 11 < > 8 CREA 0.60* -- 0.65* -- -- 0.75 -- 0.89 1.03 -- 1.19 -- 0.69* < > 0.68* GLU 90 -- 89 -- -- 82 -- 72 94 -- 110* -- 144* < > 126* CALCIUM 7.6* -- 7.3* -- -- 7.2* -- 7.2* 6.7* -- 6.4* -- 6.3* < > 7.0* TP -- -- -- -- -- 4.3* -- 4.8* 3.9* -- 4.0* < > -- -- -- ALBUMIN -- -- -- -- -- 2.5* -- 2.8* 2.4* -- 2.4* < > -- -- -- LACTATE -- -- -- -- -- -- -- -- -- 1.8 -- -- -- -- -- PHOS -- -- -- -- -- -- -- -- -- -- 4.0 -- 3.4 -- -- MG 1.6* -- 1.7 -- -- 1.9 -- -- 1.8 -- 1.7 -- 1.8 < > -- BILI -- -- -- -- -- 1.0 -- 1.1 0.8 -- 0.9 < > -- -- -- AST -- -- -- -- -- 78* -- 73* 64* -- 37 < > -- -- -- ALT -- -- -- -- -- 37 -- 34 31 -- 21 < > -- -- -- ALKPHOS -- -- -- -- -- 80 -- 83 62 -- 55 < > -- -- -- INR -- -- -- -- -- -- -- -- -- -- -- -- -- -- 1.3 < > = values in this interval not displayed. Recent Labs Lab 10/11/19 1116 COLORUA YELLOW CLARITYUA CLEAR SPECGRAVU 1.008 LEUKEST NEGATIVE NITRITEUA NEGATIVE UUROB <1.6 URINEPROTEIN NEGATIVE LABPH 6.0 BLOODUA SMALL* KETONESUA TRACE* BILIRUBINUA NEGATIVE GLUCOSEU NEGATIVE WBCUA 3-5 RBCUA 3-5 SQUAMEPIUA 6-10 BACTERIAUA NONE SEEN No results found. PROBLEM LIST/IMPRESSION/PLAN: Principal Problem: Thrombosis of femoral-femoral bypass graft Peripheral arterial disease Pseudoaneurysm right aorto femoral bypass status postStatus post femoral artery to femoral bypass, thro mbectomy, bilateral femoral to popliteal artery bypasses, repair of right femoral limb of ax illary bifemoral bypass with interposition of Dacron graft, right femoral endarterectomy wit h patch angioplasty left femoral endarterectomy right to left femoral to femoral artery bytracey ss with 8 mm PTFE. Continue with postop vascular surgery care. AUGUSTUS drain is still in as it still had 150 mL out over 24 hours, and vascular surgery will reassess if the AUGUSTUS drain can b e removed tomorrow Active Problems: Alcohol abuse No signs of alcohol withdrawal Tobacco abuse patient does not appear to have any signs of nicotine withdrawal continu e to advise smoking cessation Cellulitis of right foot continue with Augmentin 875 125 twice daily for 7 doses, co ntinue with wound care. Post-operative pain patient pain seems to have improved after removal of the drains, co ntinue with pain medication as needed. Acute hyponatremia ? Secondary to SIADH, serum osmolality is low, urine osmolality is normal fluid restriction for now and I have added salt tablets 1 g 3 times daily. Continue to monitor Diarrhea most likely secondary to patient being on amoxicillin, with C. difficile a resu lt being negative will give Lomotil as needed. Disposition: Likely home as recommended by PT Labs pending: pending CBC CMP tomorrow Radiology studies pending: None Cultures pending: Blood culture, Code Status: Full code I explainedlab findings and plan of care to patient and he verbalized understanding and ag reement and had no more questions for me after my interaction with him, he stated that he limon s been in touch with his Merrill, Lele [phone] and he did not want me to call him.. More th an 35 minutes spent directly face to face with patient and more than 65% spent for physical examination and discussing care and counseling about patient illness with patient and relat augusta at bedside, on chart review, coordinating care with other providers, formulating a plan of care and management as well as Computerized Physician Internet Technology Manager. Dictation software, [employer], used which may contain error for similar sounding words even af ter review. Portions of this chart may have been copied from previous notes for continuity of care. Mundo Pack MD, FACP, FAAP 10/14/2019 il son, Chelsi HebertJUICE - 10/14/2019 8:44 AM PDT [facility] Service: Vascular Surgery Progress Note Hospital Day: LOS: 11 days Post-Op Day: POD 6 Femoral artery to femoral bypass thrombectomy, bilateral femoral to pop liteal artery bypasses; POD 7 - Repair of right femoral limb of axillary bifemoral bypass wi th interposition dacron graft / Right femoral endarterectomy with patch angioplasty / Left f emoral endarterectomy / Right to left femoral to femoral artery bypass with 8 mm PTFE SUBJECTIVE Patient Summary: The patient is a 59 y.o. 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 He unde rwent aortobifemoral bypass in 1999. 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 He reports that his right foot has been swol roque for about one week now and also developed redness concerning for infection. 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 He was transferred to [facility] for evaluation and Vascular was consulted for management of his right groin pseudoan eurysm. Of note, he continues to drink more than a 6 pack per day and also is smoking 1 ppd currently. He additionally reports bilateral hip and pelvic "burning" which occurs when he w alks short distances that is relieved with resting. He denies any rest pain in either leg. H e denies any pain in his left leg on a regular basis but reports his left foot has been numb for a long time. Events Overnight: continues with loose stools, improving in overall frequency with add ition of lomotil; tested negative for C.diff. Overall improving, plans on showering today. Scheduled Medications aspirin 81 mg Oral Daily atorvaSTATin 40 mg Oral Nightly clopidogrel 75 mg Oral Daily enoxaparin 40 mg Subcutaneous Q24H lactobacillus 1 packet Oral TID sodium chloride 1 g Oral TID Continuous Infusions PRN Medications acetaminophen, calcium carbonate, dextrose, diphenhydrAMINE, diphenoxylate-atropine, docusa te sodium, hydrocortisone, labetalol, LORazepam, Magnesium replacement - NON ICU AND Mag nesium AND magnesium oxide AND magnesium sulfate AND magnesium sulfate, melatoni n, morphine, naloxone, ondansetron, oxyCODONE, Potassium replacement - NON ICU AND Potas sium AND potassium chloride AND potassium chloride AND potassium chloride IVPB ( other volumes & diluents) AND potassium chloride IVPB (other volumes & diluents), promet hazine, senna OBJECTIVE Vital Signs: Vitals: 10/14/19 0736 BP: 146/72 Pulse: 95 Resp: 19 Temp: 37.1 C (98.7 F) Constitutional: Cachetic HENT: Right cheek with ulceration. Cardiovascular: Normal rate, regular rhythm Pulmonary/Chest: No respiratory distress Abdominal: Incision with minimal weeping of serous fluid Extremities: Poor muscle tone throughout his lower extremities. 2+ edema persisting in rig ht lower extremity and foot. LLE 1+ edema. Neurological: He is alert and oriented. VASCULAR: 2+PT and multiphasic DP and 1st digit arteries bilaterally. Toes are warm to kush ch, able to wiggle toes and dorsiflex and plantarflex DATA Recent Results (from the past 24 hour(s)) Potassium Collection Time: 10/13/19 11:07 AM Result Value Ref Range K 3.5 3.5 - 4.9 mmol/L Magnesium Collection Time: 10/14/19 5:49 AM Result Value Ref Range Magnesium 1.6 (L) 1.7 - 2.4 mg/dL Basic Metabolic Panel Collection Time: 10/14/19 5:49 AM Result Value Ref Range Na 135 135 - 145 mmol/L K 3.2 (L) 3.5 - 4.9 mmol/L Cl 103 99 - 109 mmol/L CO2 26 23 - 32 mmol/L Anion Gap 9 5 - 20 mmol/L Glucose 90 65 - 99 mg/dL BUN 4 (L) 8 - 25 mg/dL Creatinine 0.60 (L) 0.70 - 1.30 mg/dL BUN/Creatinine Ratio 7 Calcium 7.6 (L) 8.5 - 10.5 mg/dL Estimated GFR >60 >60 mL/min/1.73m2 CBC no Differential Collection Time: 10/14/19 5:49 AM Result Value Ref Range WBC 12.21 (H) 3.80 - 11.00 K/uL Red Blood Cells 3.16 (L) 4.20 - 5.70 M/uL Hemoglobin 10.0 (L) 13.2 - 17.0 g/dL Hematocrit 29.1 (L) 39.0 - 50.0 % MCV 92.1 80.0 - 100.0 fl MCH 31.6 27.0 - 34.0 pg MCHC 34.4 32.0 - 35.5 g/dL RDW-SD 48.8 37 - 53 fl Platelet Count 235 150 - 400 K/uL MPV 10.5 fl PROBLEM LIST Principal Problem: Pseudoaneurysm right aorto femoral bypass Active Problems: Alcohol abuse Tobacco abuse Cellulitis of right foot Peripheral arterial disease Thrombosis of femoral-femoral bypass graft Post-operative pain Acute hyponatremia Leucocytosis ASSESSMENT & PLAN POD 6 Femoral artery to femoral bypass thrombectomy, bilateral femoral to popliteal artery bypasses; POD 7 - Repair of right femoral limb of axillary bifemoral bypass with interpositi on dacron graft / Right femoral endarterectomy with patch angioplasty / Left femoral endarte rectomy / Right to left femoral to femoral artery bypass with 8 mm PTFE - Patient continue s with good perfusion to legs, and feels ambulation is improving. AUGUSTUS in left groin with 150 mL output. Will re-evaluate for removal tomorrow. Incisional dressing changes have decreas ed in frequency, continues to have serous weeping. Continue with dressing changes if soiled or wet. May clean with betadine if soiled. Encourage daily shower. Continue on aspirin, plavix and statin daily. Continue oral Augmentin per primary team. Continue encouraging am bulation with assistance, being OOB to chair and keeping feet elevated to minimize swelling. Call with any neurovascular changes. Appreciate hospitalitis assistance with management o f this patient. Disposition: Inpatient Code Status: Full Chelsi Arteaga PA-C 10/14/2019 [place] COTA - 10/13/2019 2:45 PM PDT MISSED OCCUPATIONAL THERAPY VISIT: Therapy attempted to see the following patient today: Jairo Theodore Missed Visit (patient declined) The reason for the missed visit was: .pt supine in bed refused to participate in OT session. Discussed completing bed level and or bedside pt continued to decline. Educated on importance of participating to maximize ind as well as assisting with returning back home. RN to assist with encouragement however chucho nued to decline. Will reattempt later as census permits and pt avilability erry, Xiang Allen, RD - 10/13/2019 2:22 PM PDT NUTRITION NOTE Summary Reason For Assessment: per organizational policy(Moderate follow up.) Visited pt this morning who is resting in bed, reports he feels hungry this morning. Fluid/Beverage Intake Oral Fluids Amount: 1000 ml FR. Food Intake Type of Food/Meals: Current active diet order is: Diet Diet fat and cholesterol modified; 1000 ml fluid; Effective Now Amount of Food: Pt reports appetite improving since this am, ordered the breakfast special. Per charting pt ate 100% of breakfast and 100% of lunch today. Nourishments: Pt agreeable to try chocolate boost pudding to optimize oral intake and promo te post op healing. Nutritionally Relevant Medications Lactobacillus, NaCl tab. Nutrition-Focused Physical Findings Extremities, Muscles and Bones: + 1 generalized, + 2 R/L leg, + 1 L foot, + 3 R foot edema noted. Skin: Wound care following. Anthropometrics Current wt is from 10/10, recommend daily wt's if able. Current Weight: 66.2 kg (145 lb 15.1 oz) Admit Weight: 54.3 kg (119 lb 11.2 oz) Biochemical Data, Medical Test, and Procedures Recent Labs 10/13/19 1107 10/13/19 0437 NA -- 135 K 3.5 3.5 | 3.5 GLU -- 89 BUN -- <5* CREA -- 0.65* MG -- 1.7 Estimated Energy Needs Energy Calorie Requirements: 0088-0486(28-32 kcal/kg per 54.3 kg admit wt ) Estimated Protein Needs Range Gm Protein (gm): 65-81(1.2-1.5 g/kg per 54.3 kg admit wt ) Nutrition Diagnosis Inadequate oral intake related to decreased ability to consume sufficient energy and protei n as evidenced by 81% IBW Recommendations Continue diet as ordered. Encourage high protein, nutrient dense foods. Send chocolate Angela t pudding BID as mid am, mid pm snack. RD staff to continue to follow per protocol. Nutritional Risk Required Follow Up: 5 days(10/12 M) Xiang Meyer RD,CD 10/13/2019 2:22 PM PDT Problem: Oral Intake Inadequate Goal: Improved Oral Intake Description: Pt will consume >75% of meals and snacks Outcome: Ongoing, progressing Note: Pt will consume > 75% of meals, supplements. Arlene Crum PA- C - 10/13/2019 10:33 AM PDT [facility] Service: Vascular Surgery Progress Note Hospital Day: LOS: 10 days Post-Op Day: POD 5 Femoral artery to femoral bypass thrombectomy, bilateral femoral to pop liteal artery bypasses; POD 6 - Repair of right femoral limb of axillary bifemoral bypass wi th interposition dacron graft / Right femoral endarterectomy with patch angioplasty / Left f emoral endarterectomy / Right to left femoral to femoral artery bypass with 8 mm PTFE SUBJECTIVE Patient Summary: The patient is a 59 y.o. 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 He unde rwent aortobifemoral bypass in 1999. 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 He reports that his right foot has been swol roque for about one week now and also developed redness concerning for infection. 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 He was transferred to [facility] for evaluation and Vascular was consulted for management of his right groin pseudoan eurysm. Of note, he continues to drink more than a 6 pack per day and also is smoking 1 ppd currently. He additionally reports bilateral hip and pelvic "burning" which occurs when he w alks short distances that is relieved with resting. He denies any rest pain in either leg. H e denies any pain in his left leg on a regular basis but reports his left foot has been numb for a long time. Events Overnight: patient with diarrhea; tested negative for C.diff. He complains of cramping over his left thigh near his incision. He is afebrile with yesterday's WBC count e levated. 2 units PRBCs yesterday. Scheduled Medications amoxicillin-clavulanate 1 tablet Oral BID aspirin 81 mg Oral Daily atorvaSTATin 40 mg Oral Nightly clopidogrel 75 mg Oral Daily enoxaparin 40 mg Subcutaneous Q24H lactobacillus 1 packet Oral TID sodium chloride 1 g Oral TID Continuous Infusions PRN Medications acetaminophen, calcium carbonate, dextrose, diphenhydrAMINE, diphenoxylate-atropine, docusa te sodium, hydrocortisone, labetalol, LORazepam, Magnesium replacement - NON ICU AND Mag nesium AND magnesium oxide AND magnesium sulfate AND magnesium sulfate, melatoni n, morphine, naloxone, ondansetron, oxyCODONE, Potassium replacement - NON ICU AND Potas sium AND potassium chloride AND potassium chloride AND potassium chloride IVPB ( other volumes & diluents) AND potassium chloride IVPB (other volumes & diluents), mei hernández OBJECTIVE Vital Signs: Vitals: 10/13/19 0833 BP: 155/76 Pulse: 85 Resp: 19 Temp: 36.9 C (98.5 F) Constitutional: Cachetic HENT: Right cheek with ulceration. Cardiovascular: Normal rate, regular rhythm Pulmonary/Chest: No respiratory distress Abdominal: Incision with minimal weeping of serous fluid, one dressing change overnight. P jean-incisional tenderness present. Extremities: Poor muscle tone throughout his lower extremities. 2+ edema persisting in rig ht lower extremity and foot. Left foot edema improved this AM. Neurological: He is alert and oriented. VASCULAR: Prevenas will be removed later today with replacement of dry dressings. 2+PT and multiphasic DP and 1st digit arteries bilaterally. Toes are warm to touch, able to wiggle toes and dorsiflex and plantarflex. 2+swelling over lower extremities. DATA Recent Results (from the past 24 hour(s)) Potassium Collection Time: 10/12/19 11:02 AM Result Value Ref Range K 3.3 (L) 3.5 - 4.9 mmol/L Clostridium difficile A and B EIA Collection Time: 10/12/19 4:03 PM Specimen: Stool Result Value Ref Range Clostridium Difficile GDH Antigen NEGATIVE NEG C. Diff Toxin A/B EIA NEGATIVE NEG C. difficile, Interp Negative for toxigenic C.difficile. Potassium Collection Time: 10/12/19 4:28 PM Result Value Ref Range K 3.3 (L) 3.5 - 4.9 mmol/L Hemoglobin and Hematocrit Collection Time: 10/12/19 6:52 PM Result Value Ref Range Hemoglobin 9.5 (L) 13.2 - 17.0 g/dL Hematocrit 27.5 (L) 39.0 - 50.0 % Magnesium Collection Time: 10/13/19 4:37 AM Result Value Ref Range Magnesium 1.7 1.7 - 2.4 mg/dL Basic Metabolic Panel Collection Time: 10/13/19 4:37 AM Result Value Ref Range Na 135 135 - 145 mmol/L K 3.5 3.5 - 4.9 mmol/L Cl 104 99 - 109 mmol/L CO2 25 23 - 32 mmol/L Anion Gap 10 5 - 20 mmol/L Glucose 89 65 - 99 mg/dL BUN <5 (L) 8 - 25 mg/dL Creatinine 0.65 (L) 0.70 - 1.30 mg/dL BUN/Creatinine Ratio UNABLE TO CALCULATE Calcium 7.3 (L) 8.5 - 10.5 mg/dL Estimated GFR >60 >60 mL/min/1.73m2 Potassium Collection Time: 10/13/19 4:37 AM Result Value Ref Range K 3.5 3.5 - 4.9 mmol/L PROBLEM LIST Principal Problem: Pseudoaneurysm right aorto femoral bypass Active Problems: Alcohol abuse Tobacco abuse Cellulitis of right foot Peripheral arterial disease Thrombosis of femoral-femoral bypass graft Post-operative pain Acute hyponatremia Leucocytosis ASSESSMENT & PLAN POD 5 Femoral artery to femoral bypass thrombectomy, bilateral femoral to popliteal artery bypasses; POD 6 - Repair of right femoral limb of axillary bifemoral bypass with interpositi on dacron graft / Right femoral endarterectomy with patch angioplasty / Left femoral endarte rectomy / Right to left femoral to femoral artery bypass with 8 mm PTFE - Patient continue s to have good perfusion to his legs. Please be sure that the patient's incisions are kept clean in light of his current diarrhea. If his incisions become soiled then please clean th em with betadine and place a clean dressing. The patient may shower on a vascular standpoin t. He continues on oral Augmentin. Continue aspirin, Plavix and statin daily. Continue encouraging the patient out of bed to chair and ambulating with assistance. Feet are to be elevated while his is in bed to minimize swelling. Please call with any neurovascular martin es. Appreciate hospitalitis assistance with management of this patient. Nutrition consult to increase protein and optimize wound healing. Addendum: 10/13/19 17:30 I returned to the room in the evening as the patient refused to ta ke a shower earlier today. Patient states he had not bathed since prior to his admission, " on the ." He continues to have diarrhea with concern for his incisions becoming infecte d. I spoke with the patient regarding the risks of his grafts becoming infected. After our discussion he is willing to take a shower everyday, "sometime in the afternoon." Please as sist the patient to shower everyday. Afterwards, be sure to pat the incisions dry and repla ce the dressings. At this time his incisions do not indicate any infection. He continues to have significant drainage from his AUGUSTUS at 170mL. Keep this drain in place until the serous fluid in minimize d. Please continue cleaning his incisions and changing his dressings if his wounds become s oiled or wet. Disposition: Inpatient Code Status: Full Arlene Lamar PA-C 10/13/2019 Mundo Munguia MD - 10/13/2019 9:19 AM PDTFormatting of this note might be different from stephon schneider original. Jairo Theodore [phone] Hospital Day: 10 SUBJECTIVE Events Overnight: Patient seen and examined at bedside on follow-up. Overnight the tracey walters has patient has been afebrile vital signs continue to be stable patient continues to b e on room air , his diarrhea has eased up, with the patient getting Imodium, as well his bi lateral groin wound vacs have been removed. Otherwise the patient denies chest pain, shortn ess of breath, he has been eating well. OBJECTIVE Vital Signs: Blood pressure 155/76, pulse 85, temperature 36.9 C (98.5 F), temperature source Axilla ry, resp. rate 19, height 1.702 m (5' 7"), weight 66.2 kg (145 lb 15.1 oz), SpO2 98 %. Physical Exam General Appearance: Alert, cooperative, no distress, appears older than stated age Head: Normocephalic, without obvious abnormality, atraumatic Eyes: PERRL, pale conjunctiva/corneas clear, EOM's intact, Ears: Normal external ear canals, both ears Nose: Nares normal, septum midline, mucosa normal, no drainage or sinus tenderness Throat: Lips, mucosa, and tongue normal, hole without drainage on right cheek; teeth and gums normal Neck: Supple, symmetrical, trachea midline, no adenopathy; thyroid: No enlargement/tenderness/nodules; no carotid bruit or JVD Back: Symmetric, no curvature, ROM normal, no CVA tenderness Lungs: Clear to auscultation bilaterally, respirations unlabored Chest wall: No tenderness or deformity Heart: Regular rate and rhythm, S1 and S2 normal, no murmur, rub or gallop Abdomen: Soft, tenderness around incision sites, one drain in place with serosanguineou s fluid on the left pelvic area,, bowel sounds active all four quadrants, no masses, no org anomegaly, incision site no erythema or discharge healing well. Extremities: Positive bilateral groin wounds with wound VAC in place, positive bandaged wounds on both coughs, no strikethrough bleeding. Both thighs are soft not stiff Pulses: 2+ and symmetric all extremities Skin: Skin color, texture, turgor normal, no rashes or lesions Lymph nodes: Cervical, supraclavicular, and axillary nodes normal Neurologic: CNII-XII intact. Normal strength, sensation and reflexes throughout DATA Recent Labs Lab 10/13/19 0437 10/12/19 1852 10/12/19 1628 10/12/19 1102 10/12/19 0408 10/11/19 0930 10/11/19 0718 10/10/19 0416 10/09/19 0512 10/09/19 0510 10/08/19 1723 10/07/19 1721 WBC -- -- -- -- 14.13* -- 21.39* 21.52* -- 24.92* -- 26.78* < > -- HGB -- 9.5* -- -- 6.9* -- 7.8* 7.3* -- 8.7* -- 10.2* < > -- HCT -- 27.5* -- -- 19.9* -- 22.0* 20.6* -- 24.2* -- 29.7* < > -- PLT -- -- -- -- 192 -- 192 127* -- 129* -- 130* < > -- NA 135 -- -- -- 130* 127* 128* 129* -- 129* -- 133* < > 137 K 3.5 | 3.5 -- 3.3* 3.3* 3.1* -- 3.5 3.4* -- 3.9 -- 4.0 < > 4.4 CL 104 -- -- -- 102 -- 100 102 -- 102 -- 106 < > 109 CO2 25 -- -- -- 23 -- 24 20* -- 19* -- 18* < > 21* ANIONGAP 10 -- -- -- 8 -- 8 10 -- 12 -- 13 < > 11 BUN <5* -- -- -- 6* -- 8 12 -- 14 -- 11 < > 8 CREA 0.65* -- -- -- 0.75 -- 0.89 1.03 -- 1.19 -- 0.69* < > 0.68* GLU 89 -- -- -- 82 -- 72 94 -- 110* -- 144* < > 126* CALCIUM 7.3* -- -- -- 7.2* -- 7.2* 6.7* -- 6.4* -- 6.3* < > 7.0* TP -- -- -- -- 4.3* -- 4.8* 3.9* -- 4.0* < > -- -- -- ALBUMIN -- -- -- -- 2.5* -- 2.8* 2.4* -- 2.4* < > -- -- -- LACTATE -- -- -- -- -- -- -- -- 1.8 -- -- -- -- -- PHOS -- -- -- -- -- -- -- -- -- 4.0 -- 3.4 -- -- MG 1.7 -- -- -- 1.9 -- -- 1.8 -- 1.7 -- 1.8 < > -- BILI -- -- -- -- 1.0 -- 1.1 0.8 -- 0.9 < > -- -- -- AST -- -- -- -- 78* -- 73* 64* -- 37 < > -- -- -- ALT -- -- -- -- 37 -- 34 31 -- 21 < > -- -- -- ALKPHOS -- -- -- -- 80 -- 83 62 -- 55 < > -- -- -- INR -- -- -- -- -- -- -- -- -- -- -- -- -- 1.3 < > = values in this interval not displayed. Recent Labs Lab 10/11/19 1116 COLORUA YELLOW CLARITYUA CLEAR SPECGRAVU 1.008 LEUKEST NEGATIVE NITRITEUA NEGATIVE UUROB <1.6 URINEPROTEIN NEGATIVE LABPH 6.0 BLOODUA SMALL* KETONESUA TRACE* BILIRUBINUA NEGATIVE GLUCOSEU NEGATIVE WBCUA 3-5 RBCUA 3-5 SQUAMEPIUA 6-10 BACTERIAUA NONE SEEN No results found. PROBLEM LIST/IMPRESSION/PLAN: Principal Problem: Thrombosis of femoral-femoral bypass graft Peripheral arterial disease Pseudoaneurysm right aorto femoral bypass status postStatus post femoral artery to femoral bypass, thro mbectomy, bilateral femoral to popliteal artery bypasses, repair of right femoral limb of ax illary bifemoral bypass with interposition of Dacron graft, right femoral endarterectomy wit h patch angioplasty left femoral endarterectomy right [facility]. Continue with postop vascular surgery care. AUGUSTUS drain is still in as it still had 170 mL out over 24 hours, however both wound vacs have been removed today. Active Problems: Alcohol abuse No signs of alcohol withdrawal Tobacco abuse patient does not appear to have any signs of nicotine withdrawal continu e to advise smoking cessation Cellulitis of right foot continue with Augmentin 875 125 twice daily for 7 doses, co ntinue with wound care. Post-operative pain patient pain seems to have improved after removal of the drains, co ntinue with pain medication as needed. Acute hyponatremia ? Secondary to SIADH, serum osmolality is low, urine osmolality is normal fluid restriction for now and I have added salt tablets 1 g 3 times daily. Continue to monitor Diarrhea most likely secondary to patient being on amoxicillin, with C. difficile a resu lt being negative will give Lomotil as needed. Disposition: Likely home as recommended by PT Labs pending: pending CBC CMP tomorrow Radiology studies pending: None Cultures pending: Blood culture, Code Status: Full code I explainedlab findings and plan of care to patient and he verbalized understanding and ag reement and had no more questions for me after my interaction with him, he stated that he limon s been in touch with his Merrill, Lele [phone] and he did not want me to call him.. More th an 35 minutes spent directly face to face with patient and more than 65% spent for physical examination and discussing care and counseling about patient illness with patient and relat augusta at bedside, on chart review, coordinating care with other providers, formulating a plan of care and management as well as Computerized Physician Internet Technology Manager. Dictation software, [employer], used which may contain error for similar sounding words even af ter review. Portions of this chart may have been copied from previous notes for continuity of care. Mundo Pack MD, FACP, FAAP 10/13/2019 Chiquita Cook OTR/[place] - 10/12/2019 3:28 PM PDT MISSED OCCUPATIONAL THERAPY VISIT: Therapy attempted to see the following patient today: Jairo Theodore Missed Visit (patient declined) The reason for the missed visit was: Pt reports he is not feeling well and will not get out of bed today nor complete in bed exercises. Will f/u as able and census permits. Mundo Munguia MD - 10/12/2019 9:34 AM PDTFormatting of this note might be different from the orig inal. Jairo Theodore [id number] Hospital Day: 9 SUBJECTIVE Events Overnight: Patient seen and examined at bedside on follow-up. Overnight the tracey walters has patient has been afebrile vital signs continue to be stable patient continues to b e on room air and saturating 96 to 100% but has had more serosanguineous output, and his hem oglobin dropped to 6.9 this morning, sodium is starting to creep up to 130, potassium is sti ll bit low at 3.3 and continue to need replacement, creatinine is 0.75 and BUN is 6 calcium 7.2 total protein 4.3 and albumin 2.5. Patient also has had more than 3 episodes of loose s tools today no blood. OBJECTIVE Vital Signs: Blood pressure 120/60, pulse 90, temperature 37.4 C (99.3 F), resp. rate 20, height 1.7 02 m (5' 7"), weight 66.2 kg (145 lb 15.1 oz), SpO2 100 %. Physical Exam General Appearance: Alert, cooperative, no distress, appears older than stated age Head: Normocephalic, without obvious abnormality, atraumatic Eyes: PERRL, pale conjunctiva/corneas clear, EOM's intact, Ears: Normal external ear canals, both ears Nose: Nares normal, septum midline, mucosa normal, no drainage or sinus tenderness Throat: Lips, mucosa, and tongue normal, hole without drainage on right cheek; teeth and gums normal Neck: Supple, symmetrical, trachea midline, no adenopathy; thyroid: No enlargement/tenderness/nodules; no carotid bruit or JVD Back: Symmetric, no curvature, ROM normal, no CVA tenderness Lungs: Clear to auscultation bilaterally, respirations unlabored Chest wall: No tenderness or deformity Heart: Regular rate and rhythm, S1 and S2 normal, no murmur, rub or gallop Abdomen: Soft, tenderness around incision sites, one drain in place with serosanguineou s fluid on the left pelvic area,, bowel sounds active all four quadrants, no masses, no org anomegaly, incision site no erythema or discharge healing well. Extremities: Positive bilateral groin wounds with wound VAC in place, positive bandaged wounds on both coughs, no strikethrough bleeding. Both thighs are soft not stiff Pulses: 2+ and symmetric all extremities Skin: Skin color, texture, turgor normal, no rashes or lesions Lymph nodes: Cervical, supraclavicular, and axillary nodes normal Neurologic: CNII-XII intact. Normal strength, sensation and reflexes throughout DATA Recent Labs Lab 10/12/19 0408 10/11/19 0930 10/11/19 0718 10/10/19 0416 10/09/19 0512 10/09/19 0510 10/08/19 1723 10/07/19 1721 WBC 14.13* -- 21.39* 21.52* -- 24.92* -- 26.78* < > -- HGB 6.9* -- 7.8* 7.3* -- 8.7* -- 10.2* < > -- HCT 19.9* -- 22.0* 20.6* -- 24.2* -- 29.7* < > -- PLT 192 -- 192 127* -- 129* -- 130* < > -- NA 130* 127* 128* 129* -- 129* -- 133* < > 137 K 3.1* -- 3.5 3.4* -- 3.9 -- 4.0 < > 4.4 CL 102 -- 100 102 -- 102 -- 106 < > 109 CO2 23 -- 24 20* -- 19* -- 18* < > 21* ANIONGAP 8 -- 8 10 -- 12 -- 13 < > 11 BUN 6* -- 8 12 -- 14 -- 11 < > 8 CREA 0.75 -- 0.89 1.03 -- 1.19 -- 0.69* < > 0.68* GLU 82 -- 72 94 -- 110* -- 144* < > 126* CALCIUM 7.2* -- 7.2* 6.7* -- 6.4* -- 6.3* < > 7.0* TP 4.3* -- 4.8* 3.9* -- 4.0* < > -- -- -- ALBUMIN 2.5* -- 2.8* 2.4* -- 2.4* < > -- -- -- LACTATE -- -- -- -- 1.8 -- -- -- -- -- PHOS -- -- -- -- -- 4.0 -- 3.4 -- -- MG 1.9 -- -- 1.8 -- 1.7 -- 1.8 < > -- BILI 1.0 -- 1.1 0.8 -- 0.9 < > -- -- -- AST 78* -- 73* 64* -- 37 < > -- -- -- ALT 37 -- 34 31 -- 21 < > -- -- -- ALKPHOS 80 -- 83 62 -- 55 < > -- -- -- INR -- -- -- -- -- -- -- -- -- 1.3 < > = values in this interval not displayed. Recent Labs Lab 10/11/19 1116 COLORUA YELLOW CLARITYUA CLEAR SPECGRAVU 1.008 LEUKEST NEGATIVE NITRITEUA NEGATIVE UUROB <1.6 URINEPROTEIN NEGATIVE LABPH 6.0 BLOODUA SMALL* KETONESUA TRACE* BILIRUBINUA NEGATIVE GLUCOSEU NEGATIVE WBCUA 3-5 RBCUA 3-5 SQUAMEPIUA 6-10 BACTERIAUA NONE SEEN No results found. PROBLEM LIST/IMPRESSION/PLAN: Principal Problem: Thrombosis of femoral-femoral bypass graft Peripheral arterial disease Pseudoaneurysm right aorto femoral bypass status postStatus post femoral artery to femoral bypass, thro mbectomy, bilateral femoral to popliteal artery bypasses, repair of right femoral limb of ax illary bifemoral bypass with interposition of Dacron graft, right femoral endarterectomy wit h patch angioplasty left femoral endarterectomy right [facility] femoral [facility] 8 mm [facility]. Continue with postop vascular surgery care. Active Problems: Alcohol abuse No signs of alcohol withdrawal Tobacco abuse patient does not appear to have any signs of nicotine withdrawal continu e to advise smoking cessation Cellulitis of right foot continue with Augmentin 875 125 twice daily for 7 doses, co ntinue with wound care. Post-operative pain patient pain seems to have improved after removal of the drains, co ntinue with pain medication as needed. Acute hyponatremia ? Secondary to SIADH, serum osmolality is low, urine osmolality is normal fluid restriction for now and I have added salt tablets 1 g 3 times daily. Continue to monitor Diarrhea most likely secondary to patient being on amoxicillin, with C. difficile a resu lt being negative will give Lomotil as needed. Disposition: Likely home as recommended by PT Labs pending: Urine osmolality, pending CBC CMP tomorrow Radiology studies pending: None Cultures pending: Blood culture, Code Status: Full code I explainedlab findings and plan of care to patient and he verbalized understanding and ag reement and had no more questions for me after my interaction with him, he stated that he limon s been in touch with his Merrill, Lele [phone] and he did not want me to call him.. More th an 35 minutes spent directly face to face with patient and more than 65% spent for physical examination and discussing care and counseling about patient illness with patient and relat augusta at bedside, on chart review, coordinating care with other providers, formulating a plan of care and management as well as Computerized Physician Internet Technology Manager. Dictation software, [employer], used which may contain error for similar sounding words even af ter review. Portions of this chart may have been copied from previous notes for continuity of care. Mundo Pack MD, FACP, FAAP 10/12/2019 il son, Chelsi JUICE Hebert - 10/12/2019 9:17 AM PDT [facility] Service: Vascular Surgery Progress Note Hospital Day: LOS: 9 days Post-Op Day: POD 4 Femoral artery to femoral bypass thrombectomy, bilateral femoral to pop liteal artery bypasses; POD 5 - Repair of right femoral limb of axillary bifemoral bypass wi th interposition dacron graft / Right femoral endarterectomy with patch angioplasty / Left f emoral endarterectomy / Right to left femoral to femoral artery bypass with 8 mm PTFE SUBJECTIVE Patient Summary: The patient is a 59 y.o. 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 He unde rwent aortobifemoral bypass in 1999. 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 He reports that his right foot has been swol orque for about one week now and also developed redness concerning for infection. 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 He was transferred to [facility] for evaluation and Vascular was consulted for management of his right groin pseudoan eurysm. Of note, he continues to drink more than a 6 pack per day and also is smoking 1 ppd currently. He additionally reports bilateral hip and pelvic "burning" which occurs when he w alks short distances that is relieved with resting. He denies any rest pain in either leg. Eyal angel denies any pain in his left leg on a regular basis but reports his left foot has been numb for a long time. Events Overnight: Patient very upset over fluid restriction. Does not want to engage in conversation secondary to anger. Continues to tolerate diet, however state he is not hun gry, continues to have regular BMs. BM this morning watery and black. Scheduled Medications amoxicillin-clavulanate 1 tablet Oral BID aspirin 81 mg Oral Daily atorvaSTATin 40 mg Oral Nightly clopidogrel 75 mg Oral Daily enoxaparin 40 mg Subcutaneous Q24H sodium chloride 1 g Oral TID Continuous Infusions PRN Medications acetaminophen, calcium carbonate, dextrose, diphenhydrAMINE, docusate sodium, hydrocortison e, labetalol, LORazepam, Magnesium replacement - NON ICU AND Magnesium AND magnesium oxide AND magnesium sulfate AND magnesium sulfate, melatonin, morphine, naloxone, o ndansetron, oxyCODONE, Potassium replacement - NON ICU AND Potassium AND potassium c hloride AND potassium chloride AND potassium chloride IVPB (other volumes & diluents ) AND potassium chloride IVPB (other volumes & diluents), promethazine, senna OBJECTIVE Vital Signs: Vitals: 10/12/19 0857 BP: 127/63 Pulse: 96 Resp: 20 Temp: 37.4 C (99.3 F) Constitutional: Cachetic HENT: Right cheek with ulceration. Cardiovascular: Normal rate, regular rhythm Pulmonary/Chest: No respiratory distress Abdominal: Incision with minimal weeping of serous fluid, one dressing change overnight. P jean-incisional tenderness present. Extremities: Poor muscle tone throughout his lower extremities. 2+ edema persisting in rig ht lower extremity and foot. Left foot edema improved this AM. Neurological: He is alert and oriented. VASCULAR: Prevenas needing continued reinforcement due to serous drainage from previous AUGUSTUS sites. AUGUSTUS #1 remains in left groin - 160 mL serous fluid overnight, remains in place. Lowe r extremity dressings replaced bilaterally x3 overnight secondary to serous drainage. 2+PT and multiphasic DP and 1st digit arteries bilaterally. Toes are warm to touch, able to wiggle toes and dorsiflex and plantarflex. DATA Recent Results (from the past 24 hour(s)) Osmolality, Serum Collection Time: 10/11/19 9:30 AM Result Value Ref Range Osmolality, Serum 262 (L) 280 - 301 mOsm/kg Sodium Collection Time: 10/11/19 9:30 AM Result Value Ref Range Na 127 (L) 135 - 145 mmol/L Osmolality, Urine Collection Time: 10/11/19 11:16 AM Result Value Ref Range OSMO URINE 239 50 - 1,200 mOsm/kg Urinalysis with Microscopic with Culture if Indicated Collection Time: 10/11/19 11:16 AM Specimen: Urine, Clean Catch Result Value Ref Range Color, UA YELLOW Clarity, Urine CLEAR Specific [place], Urine 1.008 1.002 - 1.030 Leukocyte esterase, UA NEGATIVE NEG Nitrite, UA NEGATIVE NEG Urobilinogen, Ur <1.6 <1.6 mg/dL Protein, Urine (mg/dL) NEGATIVE NEG mg/dL pH, Urine 6.0 5.0 - 8.0 Blood, UA SMALL (A) NEG Ketones, UA TRACE (A) NEG mg/dL Bilirubin, UA NEGATIVE NEG Glucose, Ur NEGATIVE NEG mg/dL WBC UA 3-5 0 - 5 /hpf Red Blood Cells, Urine 3-5 0 - 2 /hpf Squamous Epithelial Cells, Urine 6-10 /lpf Bacteria, Urine NONE SEEN NONE CBC no Differential Collection Time: 10/12/19 4:08 AM Result Value Ref Range WBC 14.13 (H) 3.80 - 11.00 K/uL Red Blood Cells 2.10 (L) 4.20 - 5.70 M/uL Hemoglobin 6.9 (LL) 13.2 - 17.0 g/dL Hematocrit 19.9 (LL) 39.0 - 50.0 % MCV 94.8 80.0 - 100.0 fl MCH 32.9 27.0 - 34.0 pg MCHC 34.7 32.0 - 35.5 g/dL RDW-SD 50.0 37 - 53 fl Platelet Count 192 150 - 400 K/uL MPV 9.9 fl Comprehensive Metabolic Panel Collection Time: 10/12/19 4:08 AM Result Value Ref Range Na 130 (L) 135 - 145 mmol/L K 3.1 (L) 3.5 - 4.9 mmol/L Cl 102 99 - 109 mmol/L CO2 23 23 - 32 mmol/L Anion Gap 8 5 - 20 mmol/L Glucose 82 65 - 99 mg/dL BUN 6 (L) 8 - 25 mg/dL Creatinine 0.75 0.70 - 1.30 mg/dL BUN/Creatinine Ratio 8 Calcium 7.2 (L) 8.5 - 10.5 mg/dL Protein, Total 4.3 (L) 6.3 - 8.2 g/dL Albumin 2.5 (L) 3.3 - 4.8 g/dL Globulin 1.8 1.3 - 4.9 g/dL A/G Ratio 1.4 1.0 - 2.4 BILIRUBIN, TOTAL 1.0 0.1 - 1.5 mg/dL ALK PHOS 80 35 - 115 U/L AST 78 (H) 10 - 45 U/L ALT 37 10 - 65 U/L Estimated GFR >60 >60 mL/min/1.73m2 Magnesium Collection Time: 10/12/19 4:08 AM Result Value Ref Range Magnesium 1.9 1.7 - 2.4 mg/dL Red Blood Cells (PRBC) - Crossmatch Collection Time: 10/12/19 7:41 AM Result Value Ref Range Product Code RED CELL GROUP Units ordered 2 BLOOD BANK COMMENT ORDER RECEIVED IN BLOOD BANK. BLOOD BANK COMMENT [place] [facility] [place] [place] [id number] Type and Screen Collection Time: 10/12/19 7:52 AM Result Value Ref Range ABO Rh A POSITIVE Antibody Screen NEGATIVE BB BAND [id number] BB BAND Testing [place] [facility] [place] [place] [id number] UNIT # [id number] Product Code LEUKODEPLETED PC Unit Division 00 Unit Status ALLOCATED Transfusion Status OK TO TRANSFUSE CROSSMATCH RESULT COMPATIBLE UNIT # [id number] Product Code LEUKODEPLETED PC Unit Division 00 Unit Status ALLOCATED Transfusion Status OK TO TRANSFUSE CROSSMATCH RESULT COMPATIBLE PROBLEM LIST Principal Problem: Pseudoaneurysm right aorto femoral bypass Active Problems: Alcohol abuse Tobacco abuse Cellulitis of right foot Peripheral arterial disease Thrombosis of femoral-femoral bypass graft Post-operative pain Acute hyponatremia Leucocytosis ASSESSMENT & PLAN POD 4 Femoral artery to femoral bypass thrombectomy, bilateral femoral to popliteal artery bypasses; POD 5 - Repair of right femoral limb of axillary bifemoral bypass with interpositi on dacron graft / Right femoral endarterectomy with patch angioplasty / Left femoral endarte rectomy / Right to left femoral to femoral artery bypass with 8 mm PTFE - Patient continue s to have good perfusion to his legs. Vitals improving, normal heart rate, normotensive tod ay. H&H at 6.9/19.9 today, no overt signs of bleeding from incisions or drain. Did have w atery, black stool this AM, will continue to monitor as all other stools have been brown in color. Will transfuse 2 units PRBC today. WBC improved at 14.1 today. He continues on ora l Augmentin. Sodium improved to 130 today. Drain wounds with copious serous drainage, con tinue to exchange dressings as needed to keep clean/dry/intact. Drain # 1 that remains with 160 mL overnight of serous output, will re-evaluate for removal tomorrow. Vascular team wi ll take down Prevenas tomorrow (10/13/19). Pain is controlled on current pain medication reg imen. Please continue with neurovascular checks. Continue aspirin, Plavix and statin daily . Continue encouraging the patient out of bed to chair with feet elevated. Please call [facility] h any neurovascular changes. Appreciate hospitalitis assistance with management of this pat ient. Disposition: Inpatient Code Status: Full Chelsi Arteaga PA-C 10/12/2019 Associated attestation - Magdiel Arteaga MD - 10/13/2019 7:53 AM PDTI saw and evaluated th e patient, participated in the management, and agree with the findings in the above note. W jeanne discussed the case and the treatment plan. Magdiel Arteaga MD Vascular Surgery Tonja Abel, RN - 10/12/2019 6:53 AM PDTEducated the pt on the need of FR due to low s odium. BL groins, and abd dressing changed 3 times with OPTI lock during shift due to copiou s serous drainage. Critical H/H 6.11/17, notified. 1 Unit of PRBC ordered. K+ and Mag+ re placed per protocol, recheck potassium at 1040. Chart Check Complete Tonja Abel RN vMundo spencer MD - 10/11/2019 9:16 AM PDTFormatting of this note might be different from the origina l. Jairo Theodore [id number] Hospital Day: 8 SUBJECTIVE Events Overnight: Patient seen and examined at bedside on follow-up. Overnight the pa romeo has been afebrile, he has needed intermittently 1 to 2 L of O2 by nasal cannula but th e time I saw him he did not have any oxygen on and was saturating 93%, his bandages were asha ng changed. His blood pressure now ranges from 111/82-170 no more hypotensive episodes . Patient states that he feels crappy as he had not eaten anything except clear liquid diet until breakfast this morning. No nausea or vomiting. Pain today ranges from 8-1 with joanne ent last getting 50 mg of oxycodone last night. Is a bilateral wound VAC on the groins are still in and vascular surgery today removed drains 2-5. He only has 1 drain left and his pe lvic area. WBC today is 21.39 hemoglobin 7.8 higher than 7.3 yesterday platelets are 192, s odium today is down to 128 from 129 yesterday, creatinine is 1.19 from 0.69 yesterday and se rum lactate is 1.8. Serum osmolality is a little bit low at 262, urine osmolality and urina lysis still pending. OBJECTIVE Vital Signs: Blood pressure 166/72, pulse 135, temperature 37.2 C (98.9 F), temperature source Oral, resp. rate 20, height 1.702 m (5' 7"), weight 66.2 kg (145 lb 15.1 oz), SpO2 98 %. Physical Exam General Appearance: Alert, cooperative, no distress, appears older than stated age Head: Normocephalic, without obvious abnormality, atraumatic Eyes: PERRL, pale conjunctiva/corneas clear, EOM's intact, Ears: Normal external ear canals, both ears Nose: Nares normal, septum midline, mucosa normal, no drainage or sinus tenderness Throat: Lips, mucosa, and tongue normal, hole without drainage on right cheek; teeth and gums normal Neck: Supple, symmetrical, trachea midline, no adenopathy; thyroid: No enlargement/tenderness/nodules; no carotid bruit or JVD Back: Symmetric, no curvature, ROM normal, no CVA tenderness Lungs: Clear to auscultation bilaterally, respirations unlabored Chest wall: No tenderness or deformity Heart: Regular rate and rhythm, S1 and S2 normal, no murmur, rub or gallop Abdomen: Soft, tenderness around incision sites, one drain in place with serosanguineou s fluid on the left pelvic area,, bowel sounds active all four quadrants, no masses, no org anomegaly, incision site no erythema or discharge healing well. Extremities: Positive bilateral groin wounds with wound VAC in place, positive bandaged wounds on both coughs, no strikethrough bleeding. Pulses: 2+ and symmetric all extremities Skin: Skin color, texture, turgor normal, no rashes or lesions Lymph nodes: Cervical, supraclavicular, and axillary nodes normal Neurologic: CNII-XII intact. Normal strength, sensation and reflexes throughout DATA Recent Labs Lab 10/11/19 0718 10/10/19 0416 10/09/19 0512 10/09/19 0510 10/08/19 1723 10/07/19 1721 WBC 21.39* 21.52* -- 24.92* 26.78* < > -- HGB 7.8* 7.3* -- 8.7* 10.2* < > -- HCT 22.0* 20.6* -- 24.2* 29.7* < > -- PLT 192 127* -- 129* 130* < > -- NA 128* 129* -- 129* 133* < > 137 K 3.5 3.4* -- 3.9 4.0 < > 4.4 CL 100 102 -- 102 106 < > 109 CO2 24 20* -- 19* 18* < > 21* ANIONGAP 8 10 -- 12 13 < > 11 BUN 8 12 -- 14 11 < > 8 CREA 0.89 1.03 -- 1.19 0.69* < > 0.68* GLU 72 94 -- 110* 144* < > 126* CALCIUM 7.2* 6.7* -- 6.4* 6.3* < > 7.0* TP 4.8* 3.9* -- 4.0* -- -- -- ALBUMIN 2.8* 2.4* -- 2.4* -- -- -- LACTATE -- -- 1.8 -- -- -- -- PHOS -- -- -- 4.0 3.4 -- -- MG -- 1.8 -- 1.7 1.8 < > -- BILI 1.1 0.8 -- 0.9 -- -- -- AST 73* 64* -- 37 -- -- -- ALT 34 31 -- 21 -- -- -- ALKPHOS 83 62 -- 55 -- -- -- INR -- -- -- -- -- -- 1.3 < > = values in this interval not displayed. No results for input(s): COLORUA, CLARITYUA, SPECGRAVU, LEUKEST, NITRITEUA, UUROB, URINEPRO TEIN, LABPH, BLOODUA, KETONESUA, BILIRUBINUA, GLUCOSEU, WBCUA, RBCUA, SQUAMEPIUA, BACTERIAUA , MUCUSUA, CRYSTALUA in the last 168 hours. No results found. PROBLEM LIST/IMPRESSION/PLAN: Principal Problem: Thrombosis of femoral-femoral bypass graft Peripheral arterial disease Pseudoaneurysm right aorto femoral bypass status postStatus post femoral artery to femoral bypass, thro mbectomy, bilateral femoral to popliteal artery bypasses, repair of right femoral limb of ax illary bifemoral bypass with interposition of Dacron graft, right femoral endarterectomy wit h patch angioplasty left femoral endarterectomy right to [facility] femoral [facility] 8 mm PTFE. Continue with postop vascular surgery care. Active Problems: Alcohol abuse No signs of alcohol withdrawal Tobacco abuse patient does not appear to have any signs of nicotine withdrawal continu e to advise smoking cessation Cellulitis of right foot continue with Augmentin 875 125 twice daily for 7 doses, co ntinue with wound care. Post-operative pain patient pain seems to have improved after removal of the drains, co ntinue with pain medication as needed. Acute hyponatremia ? Secondary to SIADH, serum osmolality is low, fluid restriction fo r now and I have added salt tablets 1 g 3 times daily. Leucocytosis ? Reactive secondary to the cellulitis, continue to monitor. Disposition: Likely home as recommended by PT Labs pending: Urine osmolality, pending CBC CMP tomorrow Radiology studies pending: None Cultures pending: Blood culture, Code Status: Full code I explainedlab findings and plan of care to patient and he verbalized understanding and ag reement and had no more questions for me after my interaction with him, he stated that he limon s been in touch with his Merrill, Lele [phone] and he did not want me to call him.. More th an 35 minutes spent directly face to face with patient and more than 65% spent for physical examination and discussing care and counseling about patient illness with patient and relat augusta at bedside, on chart review, coordinating care with other providers, formulating a plan of care and management as well as Computerized Physician Internet Technology Manager. Dictation software, [employer], used which may contain error for similar sounding words even af ter review. Portions of this chart may have been copied from previous notes for continuity of care. Mundo Pack MD, FACP, FAAP 10/11/2019 il son, Chelsi HebertJUICE - 10/11/2019 6:45 AM PDT [facility] Service: Vascular Surgery Progress Note Hospital Day: LOS: 8 days Post-Op Day: POD 3 Femoral artery to femoral bypass thrombectomy, bilateral femoral to pop liteal artery bypasses; POD 4 - Repair of right femoral limb of axillary bifemoral bypass wi th interposition dacron graft / Right femoral endarterectomy with patch angioplasty / Left f emoral endarterectomy / Right to left femoral to femoral artery bypass with 8 mm PTFE SUBJECTIVE Patient Summary: The patient is a 59 y.o. 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 He unde rwent aortobifemoral bypass in 1999. 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 He reports that his right foot has been swol roque for about one week now and also developed redness concerning for infection. 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 He was transferred to [facility] for evaluation and Vascular was consulted for management of his right groin pseudoan eurysm. Of note, he continues to drink more than a 6 pack per day and also is smoking 1 ppd currently. He additionally reports bilateral hip and pelvic "burning" which occurs when he w alks short distances that is relieved with resting. He denies any rest pain in either leg. Eyal angel denies any pain in his left leg on a regular basis but reports his left foot has been numb for a long time. Events Overnight: Itching has improved, swelling continues to persist, neurologically intact. Had BM overnight, and diet has been advanced. Prevenas reinforced and holding sucti on. His AUGUSTUS output is primarily serous fluid, JPs #2-5 removed today. Scheduled Medications amoxicillin-clavulanate 1 tablet Oral BID aspirin 81 mg Oral Daily atorvaSTATin 40 mg Oral Nightly clopidogrel 75 mg Oral Daily enoxaparin 40 mg Subcutaneous Q24H sodium chloride 1 g Oral TID Continuous Infusions PRN Medications acetaminophen, calcium carbonate, dextrose, diphenhydrAMINE, docusate sodium, hydrocortison e, labetalol, LORazepam, melatonin, morphine, naloxone, ondansetron, oxyCODONE, promethazine , senna OBJECTIVE Vital Signs: Vitals: 10/11/19 0917 BP: 111/82 Pulse: 99 Resp: Temp: 37.3 C (99.2 F) Constitutional: Cachetic HENT: Right cheek with ulceration. Cardiovascular: Tachycardic, regular rhythm Pulmonary/Chest: No respiratory distress Abdominal: Swelling and tenderness at bypass sites. Extremities: Poor muscle tone throughout his lower extremities with 2+edema. Neurological: He is alert and oriented. VASCULAR: Prevenas with good seal. AUGUSTUS drains with serous fluid. Drain #1 (left groin)- with 50mL overnight, remains in place Drain #2 (right) 20 mL, Drain #3 (right) 20 mL Drain #4 (right thigh) 7.5mL Drain #5 (left thigh) 20 mL Drains 2-5 removed and, dressings replaced with 4x4 and medipore. All incisions healing ni tomer, well approximated, no erythema, exudate or dehiscence. (abdomen and bilateral lower e xtremity dressings replaced) Bilateral 2+leg swelling. 2+PT and multiphasic DP and 1st digit arteries. Toes are warm t o touch, able to wiggle toes and dorsiflex and plantarflex. DATA Recent Results (from the past 24 hour(s)) CBC no Differential Collection Time: 10/11/19 7:18 AM Result Value Ref Range WBC 21.39 (H) 3.80 - 11.00 K/uL Red Blood Cells 2.31 (L) 4.20 - 5.70 M/uL Hemoglobin 7.8 (L) 13.2 - 17.0 g/dL Hematocrit 22.0 (L) 39.0 - 50.0 % MCV 95.2 80.0 - 100.0 fl MCH 33.8 27.0 - 34.0 pg MCHC 35.5 32.0 - 35.5 g/dL RDW-SD 49.3 37 - 53 fl Platelet Count 192 150 - 400 K/uL MPV 10.1 fl Comprehensive Metabolic Panel Collection Time: 10/11/19 7:18 AM Result Value Ref Range Na 128 (L) 135 - 145 mmol/L K 3.5 3.5 - 4.9 mmol/L Cl 100 99 - 109 mmol/L CO2 24 23 - 32 mmol/L Anion Gap 8 5 - 20 mmol/L Glucose 72 65 - 99 mg/dL BUN 8 8 - 25 mg/dL Creatinine 0.89 0.70 - 1.30 mg/dL BUN/Creatinine Ratio 9 Calcium 7.2 (L) 8.5 - 10.5 mg/dL Protein, Total 4.8 (L) 6.3 - 8.2 g/dL Albumin 2.8 (L) 3.3 - 4.8 g/dL Globulin 2.0 1.3 - 4.9 g/dL A/G Ratio 1.4 1.0 - 2.4 BILIRUBIN, TOTAL 1.1 0.1 - 1.5 mg/dL ALK PHOS 83 35 - 115 U/L AST 73 (H) 10 - 45 U/L ALT 34 10 - 65 U/L Estimated GFR >60 >60 mL/min/1.73m2 PROBLEM LIST Principal Problem: Pseudoaneurysm right aorto femoral bypass Active Problems: Alcohol abuse Tobacco abuse Cellulitis of right foot Peripheral arterial disease Thrombosis of femoral-femoral bypass graft Post-operative pain Postprocedural hypotension Acute hyponatremia Leucocytosis ASSESSMENT & PLAN POD 3 Femoral artery to femoral bypass thrombectomy, bilateral femoral to popliteal artery bypasses; POD 4 - Repair of right femoral limb of axillary bifemoral bypass with interpositi on dacron graft / Right femoral endarterectomy with patch angioplasty / Left femoral endarte rectomy / Right to left femoral to femoral artery bypass with 8 mm PTFE - Patient appears to have good perfusion to his legs. Drain output decreased, and drains 2-5 removed today. Prevenas to remain until 10/13/19, then will be taken down by vascular team. Pain is control led on current pain medication regimen. Please continue with neurovascular checks. He cont inues with IV Unasyn; WBCs stable at 21.39. He is hyponautremic today, discussed management with primary team, on fluid restriction 1L/day. He is to continue with Plavix 75 mg and as pirin 81 mg daily. Continue encouraging the patient out of bed to chair. Please call with any neurovascular changes. Disposition: To be determined Code Status: Full Chelsi Arteaga PA-C 10/11/2019 Rachel Trinidad, [facility] - 10/10/2019 11:59 AM PDTFormatting of this note might be different from the o riginal. Clinical Pharmacy Note: Intravenous to Oral Conversion Jairo Theodore is a 59 y.o. male. A review of patient's medication profile was conducted f or targeted drugs per Pharmacy Driven Intravenous to Oral Conversion Protocol (IV to PO Inte rchange). Assessment: Jairo meets the following criteria for initiation of IV to PO conversion: Has been tolerating food. There is no contraindications to oral medications. Has been tole rating other oral medications. Has been afebrile for at least 24 hours, trend in WBC is imp roving, and vital signs are stable. Diet: Clear liquid BP 118/58 | Pulse 107 | Temp 36.7 C (98.1 F) (Oral) | Resp 14 | Ht 1.702 m (5' 7") | Wt 59.7 kg (131 lb 9.8 oz) | SpO2 (P) 92% | BMI 20.61 kg/m Recent Labs Lab 10/10/19 0416 10/09/19 0510 10/08/19 1723 WBC 21.52* 24.92* 26.78* Plan: The following IV to PO conversion(s) was/were made per protocol: Ampicillin-sulbatam (Unasyn) 3 g IV every 6 hours to Augmentin 875-125 mg PO every 12 hours . Pharmacy will continue monitoring patient's ability to tolerate PO medications. Thank You, Rachel Cifuentes, PharmD, [facility] 10/10/19 11:59 AM PDT Arlene Crum P A-C - 10/10/2019 11:36 AM PDT [facility] Service: Vascular Surgery Progress Note Hospital Day: LOS: 7 days Post-Op Day: POD 2 Femoral artery to femoral bypass thrombectomy, bilateral femoral to pop liteal artery bypasses; POD 3 - Repair of right femoral limb of axillary bifemoral bypass wi th interposition dacron graft / Right femoral endarterectomy with patch angioplasty / Left f emoral endarterectomy / Right to left femoral to femoral artery bypass with 8 mm PTFE SUBJECTIVE Patient Summary: The patient is a 59 y.o. 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 He unde rwent aortobifemoral bypass in 1999. 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 He reports that his right foot has been swol roque for about one week now and also developed redness concerning for infection. 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 He was transferred to [facility] for evaluation and Vascular was consulted for management of his right groin pseudoan eurysm. Of note, he continues to drink more than a 6 pack per day and also is smoking 1 ppd currently. He additionally reports bilateral hip and pelvic "burning" which occurs when he w alks short distances that is relieved with resting. He denies any rest pain in either leg. Eyal angel denies any pain in his left leg on a regular basis but reports his left foot has been numb for a long time. 10/09/19 Required transfer to ICU secondary to hypotension and IV pain control post-operativ aracelis. Patient's blood pressures improved this AM, had IVF bolus yesterday evening, Phenylep hrine requirement decreasing. H&H 8.7/24.2 (received 2 units PRBC intraoperatively yesterda y), WBC 24.92 (improved from 26.78 yesterday), will continue to monitor. Lactate this AM at 1.8, procalcitonin at 0.65, continue IV antibiotics. Will resume Plavix 75 mg daily today. He is passing some gas, will progress diet to clear liquids. Encourage getting out of bed to chair today, PT eval/treat ordered. Events Overnight: Patient complains of pain and feeling, "itchy." He is neurologicall y intact however increased swelling over legs and abdomen. His Prevena is not longer vacuu melissa. His AUGUSTUS output is primarily serous fluid. WBCs trending down at 21.52 this morning, p latelet at 127. Hyponatremic at 129 and albumin at 2.4. Today, he is normotensive and tac hycardic. Scheduled Medications ampicillin-sulbactam 3 g Intravenous Q6H aspirin 81 mg Oral Daily atorvaSTATin 40 mg Oral Nightly clopidogrel 75 mg Oral Daily nicotine 1 patch Transdermal Daily Continuous Infusions sodium chloride 0.9% 50 mL/hr at 10/09/19 2331 PRN Medications acetaminophen, calcium carbonate, dextrose, diphenhydrAMINE, docusate sodium, fentaNYL (PF) , hydrocortisone, HYDROmorphone, labetalol, LORazepam, Magnesium replacement - NON ICU AND Magnesium AND magnesium oxide AND magnesium sulfate AND magnesium sulfate, me latonin, naloxone, ondansetron, oxyCODONE, Potassium replacement - NON ICU AND [START ON 10/11/2019] Potassium AND potassium chloride AND potassium chloride AND potassiu m chloride IVPB (other volumes & diluents) AND potassium chloride IVPB (other volumes & diluents), promethazine, senna OBJECTIVE Vital Signs: Vitals: 10/10/19 0800 BP: 118/58 Pulse: 107 Resp: 14 Temp: 36.7 C (98.1 F) Constitutional: Cachetic HENT: Right cheek with ulceration. Cardiovascular: Tachycardic, regular rhythm Pulmonary/Chest: No respiratory distress Abdominal: Swelling and tenderness at bypass sites. Extremities: Poor muscle tone throughout his lower extremities with 2+edema. Neurological: He is alert and oriented. VASCULAR: Prevenas in bilateral groins no longer suctioning. Lower leg Aquacel dressings w ith blood stain, however no indication of active bleeding. AUGUSTUS drains with serous fluid. Drain #1 (left)-150mL Drain #2 (right) 70L Drain #3 (right) 50L Drain #4 (right thigh)2mL Drain #5 (left thigh) 40mL Bilateral 2+leg swelling. 2+PT and multiphasic DP and 1st digit arteries. Toes are warm t o touch, able to wiggle toes and dorsiflex and plantarflex. DATA Recent Results (from the past 24 hour(s)) Magnesium Collection Time: 10/10/19 4:16 AM Result Value Ref Range Magnesium 1.8 1.7 - 2.4 mg/dL CBC with Differential Collection Time: 10/10/19 4:16 AM Result Value Ref Range WBC 21.52 (H) 3.80 - 11.00 K/uL Red Blood Cells 2.21 (L) 4.20 - 5.70 M/uL Hemoglobin 7.3 (L) 13.2 - 17.0 g/dL Hematocrit 20.6 (LL) 39.0 - 50.0 % MCV 93.2 80.0 - 100.0 fl MCH 33.0 27.0 - 34.0 pg MCHC 35.4 32.0 - 35.5 g/dL RDW-SD 51.9 37 - 53 fl Platelet Count 127 (L) 150 - 400 K/uL MPV 10.4 fl Diff Type AUTOMATED % nRBC 0.1 (H) 0 /100WBC % Neutrophils 86.40 % IMMATURE GRANULOCYTE 0.70 % % Lymphocytes 5.30 % Monocyte % 7.10 % Eosinophils % 0.30 % Basophils % 0.20 % Neutrophils, Absolute 18.57 (H) 1.90 - 7.40 K/uL IMMATURE GRANS AB 0.16 (H) 0.00 - 0.07 K/uL Absolute Lymphocytes 1.15 1.00 - 3.90 K/uL Absolute Monocytes 1.53 (H) 0.00 - 0.80 K/uL Eosinophils, Absolute 0.06 0.00 - 0.50 K/uL Basophils, Absolute 0.05 0.00 - 0.10 K/uL Comprehensive Metabolic Panel Collection Time: 10/10/19 4:16 AM Result Value Ref Range Na 129 (L) 135 - 145 mmol/L K 3.4 (L) 3.5 - 4.9 mmol/L Cl 102 99 - 109 mmol/L CO2 20 (L) 23 - 32 mmol/L Anion Gap 10 5 - 20 mmol/L Glucose 94 65 - 99 mg/dL BUN 12 8 - 25 mg/dL Creatinine 1.03 0.70 - 1.30 mg/dL BUN/Creatinine Ratio 12 Calcium 6.7 (L) 8.5 - 10.5 mg/dL Protein, Total 3.9 (L) 6.3 - 8.2 g/dL Albumin 2.4 (L) 3.3 - 4.8 g/dL Globulin 1.5 1.3 - 4.9 g/dL A/G Ratio 1.6 1.0 - 2.4 BILIRUBIN, TOTAL 0.8 0.1 - 1.5 mg/dL ALK PHOS 62 35 - 115 U/L AST 64 (H) 10 - 45 U/L ALT 31 10 - 65 U/L Estimated GFR >60 >60 mL/min/1.73m2 PROBLEM LIST Principal Problem: Pseudoaneurysm right aorto femoral bypass Active Problems: Alcohol abuse Tobacco abuse Cellulitis of right foot Peripheral arterial disease Thrombosis of femoral-femoral bypass graft Post-operative pain Postprocedural hypotension ASSESSMENT & PLAN POD 2 Femoral artery to femoral bypass thrombectomy, bilateral femoral to popliteal artery bypasses; POD 3 - Repair of right femoral limb of axillary bifemoral bypass with interpositi on dacron graft / Right femoral endarterectomy with patch angioplasty / Left femoral endarte rectomy / Right to left femoral to femoral artery bypass with 8 mm PTFE - Patient appears to have good perfusion to his legs. He continues to have pain and is requesting morphine ov er Dilaudid. Dilaudid has been cancelled and morphine 2-4mg IV for breakthrough pain ahs be en ordered. Please offer oral pain medications while the patient is awake. Please continue with neurovascular checks. He continues with IV Unasyn; WBCs trending down. He is normote nsive and no longer on phenylephrine. He is to continue with Plavix 75 mg and aspirin 81mg daily. DVT prophylaxis has been ordered, Lovenox 40units. Please encourage the patient out of bed to chair. Wound Care has been called and ordered to have [employer] wound vacs placed in li eu of the Prevena pumps. Please do not change the Prevena dressings. Vascular Services renato l assess his incisions tomorrow and perform dressing changes. Please call with any neurovas cular changes. He may be transferred to the step down unit on a Vascular standpoint. Joanne ent is to be transitioned back under the Hospitalist Service. We appreciate their managemen t of this patient. Disposition: To be determined Code Status: Prior Arlene Lamar PA-C 10/10/2019 Tyler Rivers MD - 10/10/2019 1:03 AM PDTFormatting of this note might be different from the or iginal. [facility] Service: Disc Pad Grinding Machine Feeder Progress Note Jairo Theodore 59 y.o. Hospital Day: LOS: 7 days Post-Op Day: 1 Day Post-Op Consulting Physicians Treatment Team: Magdiel Arteaga MD SUBJECTIVE Patient Summary: Per Dr. Vázquez's Consult note: The patient is a 59 y.o. male with significant past medical history of smoking, alcohol abu se, PAD, h/o right aortobifemoral bypass in 1999 complicated by pseudoaneurysm. He was farnsworth sferred on 10/03/2019 from [facility] for right foot swelling and increase in size of a rig ht groin pseudoaneurysm. On 10/07/19: he underwent repair of the right femoral limb of an axillary bifemoral bypass wi th interposition graft, right fem endarterectomy, left fem endarterectomy, right to left fem to fem artery bypass with 8 mm PTFE. On 10/08/19, faint left PT signal and no signal in the left fem-fem bypass. Dr. Arteaga, took patient to the OR for thrombosed femoral to femoral artery bypass and performed repair of ri ght femoral limb of axillary bifemoral bypass with interposition of dacron graft, right femo ral endarterectomy with patch angioplasty, left femoral endarterectomy, right to left femora l to femoral bypass with 8 mm PTFE. Patient was transferred to the ICU for pain management post-operatively and hemodynamic sup port requiring phenylephrine infusion. ICU Timeline: 10/08/19: transferred to ICU post-op for repair of thrombosed fem-fem artery bypass. Remai ns on phenylephrine infusion. 2 u PRBC intra-operatively 10/08: Remains in ICU. Off wade-later in the day. Events Overnight: Remains off of phenylephrine. SCHEDULED MEDICATIONS Reviewed. OBJECTIVE VITAL SIGNS Temp: [36.3 C (97.4 F)-37.2 C (98.9 F)] 36.6 C (97.9 F) Pulse: [92-135] 114 Resp: [11-29] 15 BP: (76-133)/(42-70) 109/56 Intake/Output Summary (Last 24 hours) at 10/10/2019 0103 Last data filed at 10/09/2019 2300 Gross per 24 hour Intake 3068.4 ml Output 1144 ml Net 1924.4 ml EXAM GEN: thin, appears older than stated age, sleeping, arousable not in acute distress. NEURO: PERRL, no facial asymmetry, moves all extremities to command GCS: 15 HEENT: sclerae clear, nonicteric, oral mmm, pink, no exudates NECK: supple, trachea midline CV: Regular rhythm, tachycardic, S1-S2 no murmur, rub or gallop, peripheral pulses doppler able, slow cap refill LUNGS: clear b/l, no wheezing, rales or rhonchi, symmetric chest expansion, even/unlabored respirations ABD: soft, nondistended, nontender to palpation, no masses, (+) surgical site w drain on ri ght lower quadrant EXTR: no edema, clubbing or cyanosis, (+) surgical incisions in both groin areas with 2 AUGUSTUS drains each side, 2 additional bilateral AUGUSTUS drains popliteal area pulses dopplerable both lo wer extremities DPs and PTs SKIN: cool, dry, no rash or mottling; (+) small hole on right cheek area - no purulent drai nage, has been present for several years per patient LINES/TUBES: PIV, Laguerre (10/06), right radial A line (10/06), AUGUSTUS drains x 5 Diagnostic Studies: Available labs and images have been reviewed and will be addressed as indicated in the assessment and plan. PROBLEM LIST Principal Problem: Pseudoaneurysm right aorto femoral bypass Active Problems: Alcohol abuse Tobacco abuse Cellulitis of right foot Peripheral arterial disease Thrombosis of femoral-femoral bypass graft Post-operative pain Postprocedural hypotension Resolved Problems: * No resolved hospital problems. * ASSESSMENT & PLAN NEURO: Post-operative pain. Fentanyl IV PRN for breakthrough pain as well as oxycodone. H/o alcohol abuse: patient admitted since 10/02 and so far no signs of withdrawals. On CI WA protocol CV: Hypotension: likely secondary to fluid shifts perioperatively and anesthetic effects. Now resolved off Wade-Synephrine.. PAD: as above, s/p fem-fem bypass (10/07), s/p repair of a femoral limb of axillary bifemo ral bypass, bilateral femoral endarterectomy (10/06). Continue dual antiplatelet therapy with ASA, Plavix as per vascular surgery. Vascular surgery following closely. PULM: No acute issues Tobacco abuse: needs to stop smoking; continue nicotine patch. Counseled on smoking jyoti sation GI/NUTRITION Care liquid diet. Advance as per vascular surgery. Nausea/Vomiting. Ondansetron prn RENAL/LYTES: Strict I&Os Avoid nephrotoxins and renally dose medications Monitor electrolytes and replace as needed ID: Cellulitis: right foot; on Unasyn. Present on admission. Resolving. HEME: Anemia: likely due to post-operative acute blood loss anemia. Last Hgb 10.2, received 2 u PRBC on 10/07 intra-operatively and 2 u PRBC on 10/07/19. Monitor CBCs and coags. ENDO: No acute issues. Blood glucose goal 100-180 mg/dL, maintain glycemic goal with SSI MUSC/SKIN: Reviewed skin cares with nursing. Mobilize when able Turns q2h to prevent pressure ulcers PT/OT when appropriate PROPHYLAXIS: Stress ulcer prophylaxis: N/A DVT prophylaxis: SCD's while in bed VAP: N/A Disposition: ICU cares as above. May be transferred to acute care later in the day. Code Status: Prior *Please bill 35 minutes of critical care time spent evaluating the patient, reviewing the d sue and formulating a plan exclusive of all other procedures. Tyler Elias MD 10/10/2019 Dictation software, [employer], was used which may contain error with similar sound words even after review. Portions of this chart may have been copied from previous notes for continuity of care. aniella Coleman RN - 10/09/2019 10:20 AM PDTFamily/ urgent care nurse practitioner updated by pt. Chelsi Orta PA-C - 10/09/2019 7:08 AM PDT [facility] Service: Vascular Surgery Progress Note Hospital Day: LOS: 6 days Post-Op Day: POD 1 Femoral artery to femoral bypass thrombectomy, bilateral femoral to pop liteal artery bypasses; POD 2 - Repair of right femoral limb of axillary bifemoral bypass wi th interposition dacron graft / Right femoral endarterectomy with patch angioplasty / Left f emoral endarterectomy / Right to left femoral to femoral artery bypass with 8 mm PTFE SUBJECTIVE Patient Summary: The patient is a 59 y.o. 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 He unde rwent aortobifemoral bypass in 1999. 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 He reports that his right foot has been swol roque for about one week now and also developed redness concerning for infection. 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 He was transferred to [facility] for evaluation and Vascular was consulted for management of his right groin pseudoan eurysm. Of note, he continues to drink more than a 6 pack per day and also is smoking 1 ppd currently. He additionally reports bilateral hip and pelvic "burning" which occurs when he w alks short distances that is relieved with resting. He denies any rest pain in either leg. Eyal angel denies any pain in his left leg on a regular basis but reports his left foot has been numb for a long time. Events Overnight: Required transfer to ICU secondary to hypotension and IV pain contro l post-operatively. Has been able to wean down on phenylephrine, reports legs feel better t alejandro. Passing a little gas, no BM yet. Scheduled Medications ampicillin-sulbactam 3 g Intravenous Q6H aspirin 81 mg Oral Daily atorvaSTATin 40 mg Oral Nightly clopidogrel 75 mg Oral Daily nicotine 1 patch Transdermal Daily Continuous Infusions phenylephrine 30 mcg/min (10/09/19 0251) sodium chloride 0.9% 50 mL/hr at 10/09/19 0240 PRN Medications acetaminophen, calcium carbonate, dextrose, dextrose, docusate sodium, fentaNYL (PF), hydro cortisone, HYDROmorphone, HYDROmorphone, labetalol, LORazepam, Magnesium replacement - NON I CU AND Magnesium AND magnesium oxide AND magnesium sulfate AND magnesium sul fate, melatonin, meperidine, naloxone, ondansetron, oxyCODONE, Potassium replacement - NON I CU AND Potassium AND potassium chloride AND potassium chloride, promethazine, se nna OBJECTIVE Vital Signs: Vitals: 10/09/19 0645 BP: Pulse: 107 Resp: 15 Temp: Constitutional: Cachetic HENT: Right cheek with ulceration. Cardiovascular: Tachycardic, regular rhythm Pulmonary/Chest: No respiratory distress Abdominal: Soft. No abdominal distension or tenderness. . Extremities: Poor muscle tone throughout his lower extremities. Neurological: He is alert and oriented. VASCULAR: Prevenas in bilateral groins holding suction. Lower leg dressings with small ooz e. AUGUSTUS drain to retroperitoneal space with ~100 mL overnight all others (right and left groi ns, and right and left lower legs) all with ~40 mL each overnight. No pulsatile abdominal o r groin mass noted. Right foot with improving cellulitis. Right foot Palpable PT dopplered DP, Left foot- Pal pable PT, dopplered DP DATA Recent Results (from the past 24 hour(s)) POC ISTAT, CG8, Arterial Collection Time: 10/08/19 1:22 PM Result Value Ref Range pH, Arterial, POC 7.334 (L) 7.350 - 7.450 pCO2, Arterial 39 35 - 45 mmHg pO2, Arterial 245 (HH) 80 - 105 mmHg HCO3, Arterial 21 (L) 22 - 26 mmol/L TCO2, Arterial, POC 22 (L) 23 - 27 mEq/L POC Base Deficit mmol/L 5 (H) 0.0 - 2.0 mmol/L SO2, Arterial, POC 100 (H) 95 - 98 % Sodium, POC 133 (L) 135 - 145 mEq/L Potassium, POC 3.8 3.5 - 5.0 mEq/L Ionized Calcium, POC 0.94 (L) 1.12 - 1.32 mmol/L Glucose, POC 87 65 - 99 mg/dL Hematocrit, POC 17 (LL) 40.0 - 50.0 % Hemoglobin, POC 5.8 (LL) 13.7 - 16.7 g/dL POC ISTAT, CG8, Arterial Collection Time: 10/08/19 2:04 PM Result Value Ref Range pH, Arterial, POC 7.291 (L) 7.350 - 7.450 pCO2, Arterial 39 35 - 45 mmHg pO2, Arterial 237 (HH) 80 - 105 mmHg HCO3, Arterial 19 (L) 22 - 26 mmol/L TCO2, Arterial, POC 20 (L) 23 - 27 mEq/L POC Base Deficit mmol/L 8 (H) 0.0 - 2.0 mmol/L SO2, Arterial, POC 100 (H) 95 - 98 % Sodium, POC 135 135 - 145 mEq/L Potassium, POC 3.6 3.5 - 5.0 mEq/L Ionized Calcium, POC 0.88 (L) 1.12 - 1.32 mmol/L Glucose, POC 99 65 - 99 mg/dL Hematocrit, POC 25 (L) 40.0 - 50.0 % Hemoglobin, POC 8.5 (L) 13.7 - 16.7 g/dL PTT Collection Time: 10/08/19 5:23 PM Result Value Ref Range PTT 32 23 - 32 seconds Basic Metabolic Panel Collection Time: 10/08/19 5:23 PM Result Value Ref Range Na 133 (L) 135 - 145 mmol/L K 4.0 3.5 - 4.9 mmol/L Cl 106 99 - 109 mmol/L CO2 18 (L) 23 - 32 mmol/L Anion Gap 13 5 - 20 mmol/L Glucose 144 (H) 65 - 99 mg/dL BUN 11 8 - 25 mg/dL Creatinine 0.69 (L) 0.70 - 1.30 mg/dL BUN/Creatinine Ratio 16 Calcium 6.3 (L) 8.5 - 10.5 mg/dL Estimated GFR >60 >60 mL/min/1.73m2 CBC with Differential Collection Time: 10/08/19 5:23 PM Result Value Ref Range WBC 26.78 (H) 3.80 - 11.00 K/uL Red Blood Cells 3.17 (L) 4.20 - 5.70 M/uL Hemoglobin 10.2 (L) 13.2 - 17.0 g/dL Hematocrit 29.7 (L) 39.0 - 50.0 % MCV 93.7 80.0 - 100.0 fl MCH 32.2 27.0 - 34.0 pg MCHC 34.3 32.0 - 35.5 g/dL RDW-SD 54.7 (H) 37 - 53 fl Platelet Count 130 (L) 150 - 400 K/uL MPV 11.0 fl Diff Type MANUAL % Segmented Neutrophils 74 % % Bands 19 % % Lymphocytes 2 % % Monocytes 4 % Basophils % 1 % Neutrophils, Absolute 19.81 (H) 1.90 - 7.40 K/uL Absolute Band Neutrophils 5.09 (H) 0.00 - 0.20 K/uL Absolute Lymphocytes 0.54 (L) 1.00 - 3.90 K/uL Absolute Monocytes 1.07 (H) 0.00 - 0.80 K/uL Basophils, Absolute 0.27 (H) 0.00 - 0.10 K/uL RBC Morphology RBC AND PLT MORPHOLOGY APPEAR NORMAL Magnesium Collection Time: 10/08/19 5:23 PM Result Value Ref Range Magnesium 1.8 1.7 - 2.4 mg/dL Phosphorus Collection Time: 10/08/19 5:23 PM Result Value Ref Range Phosphorus 3.4 2.3 - 4.8 mg/dL POC Glucose Collection Time: 10/09/19 12:47 AM Result Value Ref Range Glucose, POC 128 (H) 65 - 99 mg/dL CBC with Differential Collection Time: 10/09/19 5:10 AM Result Value Ref Range WBC 24.92 (H) 3.80 - 11.00 K/uL Red Blood Cells 2.61 (L) 4.20 - 5.70 M/uL Hemoglobin 8.7 (L) 13.2 - 17.0 g/dL Hematocrit 24.2 (L) 39.0 - 50.0 % MCV 92.7 80.0 - 100.0 fl MCH 33.3 27.0 - 34.0 pg MCHC 36.0 (H) 32.0 - 35.5 g/dL RDW-SD 54.6 (H) 37 - 53 fl Platelet Count 129 (L) 150 - 400 K/uL MPV 11.4 fl Diff Type AUTOMATED % nRBC 0.0 0 /100WBC % Neutrophils 81.10 % % Lymphocytes 7.40 % Monocyte % 10.40 % Eosinophils % 0.00 % Basophils % 0.20 % IMMATURE GRANULOCYTE 0.90 % Neutrophils, Absolute 20.22 (H) 1.90 - 7.40 K/uL Absolute Lymphocytes 1.84 1.00 - 3.90 K/uL Absolute Monocytes 2.59 (H) 0.00 - 0.80 K/uL Eosinophils, Absolute 0.00 0.00 - 0.50 K/uL Basophils, Absolute 0.05 0.00 - 0.10 K/uL IMMATURE GRANS AB 0.22 (H) 0.00 - 0.07 K/uL Platelet Estimate DECREASED RBC Morphology RBC AND PLT MORPHOLOGY APPEAR NORMAL Comment SLIDE SCANNED, AGREES WITH AUTOMATED RESULTS. Comprehensive Metabolic Panel Collection Time: 10/09/19 5:10 AM Result Value Ref Range Na 129 (L) 135 - 145 mmol/L K 3.9 3.5 - 4.9 mmol/L Cl 102 99 - 109 mmol/L CO2 19 (L) 23 - 32 mmol/L Anion Gap 12 5 - 20 mmol/L Glucose 110 (H) 65 - 99 mg/dL BUN 14 8 - 25 mg/dL Creatinine 1.19 0.70 - 1.30 mg/dL BUN/Creatinine Ratio 12 Calcium 6.4 (L) 8.5 - 10.5 mg/dL Protein, Total 4.0 (L) 6.3 - 8.2 g/dL Albumin 2.4 (L) 3.3 - 4.8 g/dL Globulin 1.6 1.3 - 4.9 g/dL A/G Ratio 1.5 1.0 - 2.4 BILIRUBIN, TOTAL 0.9 0.1 - 1.5 mg/dL ALK PHOS 55 35 - 115 U/L AST 37 10 - 45 U/L ALT 21 10 - 65 U/L Estimated GFR >60 >60 mL/min/1.73m2 Magnesium Collection Time: 10/09/19 5:10 AM Result Value Ref Range Magnesium 1.7 1.7 - 2.4 mg/dL Phosphorus Collection Time: 10/09/19 5:10 AM Result Value Ref Range Phosphorus 4.0 2.3 - 4.8 mg/dL Procalcitonin Collection Time: 10/09/19 5:10 AM Result Value Ref Range PROCALCITONIN 0.65 (H) <0.5 ng/mL Lactic Acid Collection Time: 10/09/19 5:12 AM Result Value Ref Range Lactate, Serum 1.8 0.4 - 2.0 mmol/L PROBLEM LIST Principal Problem: Pseudoaneurysm right aorto femoral bypass Active Problems: Alcohol abuse Tobacco abuse Cellulitis of right foot Peripheral arterial disease Thrombosis of femoral-femoral bypass graft Post-operative pain Postprocedural hypotension ASSESSMENT & PLAN POD 1 Femoral artery to femoral bypass thrombectomy, bilateral femoral to popliteal artery bypasses; POD 2 - Repair of right femoral limb of axillary bifemoral bypass with interpositi on dacron graft / Right femoral endarterectomy with patch angioplasty / Left femoral endarte rectomy / Right to left femoral to femoral artery bypass with 8 mm PTFE - Patient's blood pr essures improved this AM, had IVF bolus yesterday evening, Phenylephrine requirement decreas ing. H&H 8.7/24.2 (received 2 units PRBC intraoperatively yesterday), WBC 24.92 (improved f rom 26.78 yesterday), will continue to monitor. Lactate this AM at 1.8, procalcitonin at 0. 65, continue IV antibiotics. Will resume Plavix 75 mg daily today. He is passing some gas, will progress diet to clear liquids. Encourage getting out of bed to chair today, PT eval/ treat ordered. Appreciate ICU's management of this patient. Vascular will continue to foll ow. Disposition: To be determined Code Status: Prior Chelsi Philippe Chandler, PA-C 10/09/2019 Associated attestation - Magdiel Arteaga MD - 10/09/2019 10:38 AM PDTI saw and evaluated th e patient, participated in the management, and agree with the findings in the above note. W e discussed the case and the treatment plan. Magdiel Arteaga MD Vascular Surgery Julian Gr MD - 10/09/2019 1:28 AM PDT [facility] Service: Disc Pad Grinding Machine Feeder Progress Note Jairo Theodore 59 y.o. Hospital Day: LOS: 6 days Post-Op Day: 1 Day Post-Op Consulting Physicians Treatment Team: Magdiel Arteaga MD SUBJECTIVE Patient Summary: Per Dr. Vázquez's Consult note: The patient is a 59 y.o. male with significant past medical history of smoking, alcohol abu se, PAD, h/o right aortobifemoral bypass in 1999 complicated by pseudoaneurysm. He was [place] sferred on 10/03/2019 from [facility] for right foot swelling and increase in size of a rig ht groin pseudoaneurysm. On 10/07/19: he underwent repair of the right femoral limb of an axillary bifemoral bypass wi th interposition graft, right fem endarterectomy, left fem endarterectomy, right to left fem to fem artery bypass with 8 mm PTFE. On 10/08/19, faint left PT signal and no signal in the left fem-fem bypass. Dr. Arteaga, took patient to the OR for thrombosed femoral to femoral artery bypass and performed repair of ri ght femoral limb of axillary bifemoral bypass with interposition of dacron graft, right femo ral endarterectomy with patch angioplasty, left femoral endarterectomy, right to left femora l to femoral bypass with 8 mm PTFE. Patient was transferred to the ICU for pain management post-operatively and hemodynamic sup port requiring phenylephrine infusion. ICU Timeline: 10/08/19: transferred to ICU post-op for repair of thrombosed fem-fem artery bypass. Remai ns on phenylephrine infusion. 2 u PRBC intra-operatively Events Overnight: Weaning down phenylephrine. Receiving fentanyl prn for leg pain SCHEDULED MEDICATIONS Reviewed. OBJECTIVE VITAL SIGNS Temp: [35.6 C (96.1 F)-37.1 C (98.7 F)] 35.6 C (96.1 F) Pulse: [91-146] 114 Resp: [9-25] 16 BP: (71-124)/(38-75) 123/70 Arterial Line BP: (0-131)/(0-66) 86/55 Intake/Output Summary (Last 24 hours) at 10/09/2019 0228 Last data filed at 10/09/2019 0200 Gross per 24 hour Intake 5212 ml Output 2375 ml Net 2837 ml EXAM GEN: thin, appears older than stated age, awake, alert, complaining of leg pain and nausea NEURO: PERRL, no facial asymmetry, moves all extremities GCS: 15 HEENT: sclerae clear, nonicteric, oral mmm, pink, no exudates NECK: supple, trachea midline CV: tachycardic to 110s, no murmur, rub or gallop, peripheral pulses dopplerable, slow cap refill LUNGS: clear b/l, no wheezing, rales or rhonchi, symmetric chest expansion, even/unlabored respirations ABD: soft, nondistended, nontender to palpation, no masses, (+) surgical site w drain on ri ght lower quadrant EXTR: no edema, clubbing or cyanosis, (+) surgical incisions in both groin areas with 2 AUGUSTUS drains each side, 2 additional bilateral AUGUSTUS drains popliteal area SKIN: cool, dry, no rash or mottling; (+) small hole on right cheek area - no purulent drai nage, has been present for several years per patient LINES/TUBES: PIV, Laguerre (10/06), right radial A line (10/06), AUGUSTUS drains x 5 Diagnostic Studies: Available labs and images have been reviewed and will be addressed as indicated in the assessment and plan. PROBLEM LIST Principal Problem: Pseudoaneurysm right aorto femoral bypass Active Problems: Alcohol abuse Tobacco abuse Cellulitis of right foot Peripheral arterial disease Thrombosis of femoral-femoral bypass graft Post-operative pain Postprocedural hypotension Resolved Problems: * No resolved hospital problems. * ASSESSMENT & PLAN NEURO: Post-operative pain. Fentanyl IV PRN for breakthrough pain as well as oxycodone. H/o alcohol abuse: patient admitted since 10/02 and so far no signs of withdrawals. On CI WA protocol CV: Hypotension: likely secondary to fluid shifts perioperatively and anesthetic effects. N o significant output from drains. Monitor H/H and evaluate for signs of bleeding. Continue neosynephrine to keep MAP >65. Check lactate. PAD: as above, s/p fem-fem bypass (10/07), s/p repair of a femoral limb of axillary bifemo ral bypass, bilateral femoral endarterectomy (10/06). Continue dual antiplatelet therapy with ASA, Plavix. Vascular surgery following closely. PULM: No acute issues Tobacco abuse: needs to stop smoking; continue nicotine patch. Counseled on smoking jyoti sation GI/NUTRITION NPO for now Monitor for signs of ileus. Nausea/Vomiting. Ondansetron prn RENAL/LYTES: Strict I&Os Avoid nephrotoxins and renally dose medications Monitor electrolytes and replace as needed ID: Cellulitis: right foot; on Unasyn. Present on admission. Appears to be improving. HEME: Anemia: likely due to post-operative acute blood loss anemia. Last Hgb 10.2, received 2 u PRBC on 10/07 intra-operatively and 2 u PRBC on 10/07/19. Monitor CBCs and coags. ENDO: No acute issues. Blood glucose goal 100-180 mg/dL, maintain glycemic goal with SSI MUSC/SKIN: Reviewed skin cares with nursing. Mobilize when able Turns q2h to prevent pressure ulcers PT/OT when appropriate PROPHYLAXIS: Stress ulcer prophylaxis: N/A DVT prophylaxis: SCD's while in bed VAP: N/A Disposition: ICU cares as above. Code Status: Prior *Please bill 45 minutes of critical care time spent evaluating the patient, reviewing the d sue and formulating a plan exclusive of all other procedures. Julian Gr MD 10/09/2019 Dictation software, [employer], was used which may contain error with similar sound words even after review. Portions of this chart may have been copied from previous notes for continuity of care. Jada Petit RN - 10/08/2019 4:57 PM PDTPt arrived to [id number] around 1530. Pt SBPs were in 80-90s requir ing him to quickly go up to 60mcg of phenylephrine. ICU was consulted by vascular surgery. R eport given to [facility] ARCHITECT. Pt safely transferred to room 19860. Incisions and dressings were teresa an and dry. Post tib and pedal pulses dopplerable. JADA SHINE RN Chyna Rashid MD - 10/08/2019 4:07 PM PDT [facility] Service: Hospitalist Progress Note Hospital Day: LOS: 5 days SUBJECTIVE Patient Summary: Mr. Theodore is a 59 yr old man active smoker 1ppday with alcohol abuse, hx of PAD, s/p right aorto bifemoral bypass in 1999 complicated by pseudoaneurysm, s/p revision, was transferred from [facility] ED for right foot swelling and increasing size of the right groin pseud oaneurysm and was transferred here for cellulitis of the right foot and impending pseudoaneu rsym rupture. Patient was seen by vascular surgery and patient underwent repair of right fem oral limb of axillary bifemoral bypass with interposition graft; right femoral endarterectom y with patch angioplasty; left femoral endarterectomy, right to left femoral to femoral bytracey on 10/07/19. Patient had an EBL of 1L and received 2 units pRBC. He required to neosynephri ne for [persistently low BP readings. Events Overnight: Patient this morning was noted to have very faint PT signal on doppler on the left and no s ignal on the fem-fem bypass. Patient was taken back to the OR and underwent thrombectomy/emb olectomy of fem-fem bypass. EBL 200-400ml. He remains on neosynephrine at 50mcg/min with Bps in the 80's. Patient is still in pain. Vascular surgery has requested for ICU admission for pain control and vasopressor support. Scheduled Medications ampicillin-sulbactam 3 g Intravenous Q6H aspirin 81 mg Oral Daily atorvaSTATin 40 mg Oral Nightly clopidogrel 75 mg Oral Daily esmolol heparin 3,600 Units Intravenous Once nicotine 1 patch Transdermal Daily Continuous Infusions niCARdipine Stopped (10/07/19 1824) phenylephrine 60 mcg/min (10/08/19 1555) PRN Medications acetaminophen, calcium carbonate, dextrose, dextrose, docusate sodium, fentaNYL (PF), hydro cortisone, HYDROmorphone, HYDROmorphone, labetalol, labetalol, labetalol, LORazepam, Magnesi um replacement - NON ICU AND Magnesium AND magnesium oxide AND magnesium sulfate AND magnesium sulfate, melatonin, meperidine, naloxone, ondansetron, oxyCODONE, Potassi um replacement - NON ICU AND Potassium AND potassium chloride AND potassium chlo ride, promethazine, senna OBJECTIVE Vital Signs: BP 93/55 | Pulse 107 | Temp 36.3 C (97.3 F) (Temporal) | Resp 12 | Ht 1.702 m (5' 7 ") | Wt 59.7 kg (131 lb 9.8 oz) | SpO2 99% | BMI 20.61 kg/m Patient Vitals for the past 24 hrs: BP Temp Temp src Pulse Resp SpO2 Weight 10/08/19 1535 93/55 107 12 99 % 10/08/19 1530 (!) 86/55 105 99 % 10/08/19 1525 102 11 99 % 10/08/19 1520 91/58 100 10 99 % 10/08/19 1515 95/60 94 9 100 % 10/08/19 1510 96/56 96 9 100 % 10/08/19 1505 112/63 101 13 100 % 10/08/19 1500 102/63 94 11 100 % 10/08/19 1455 111/62 91 12 99 % 10/08/19 1450 101/62 93 14 100 % 10/08/19 1445 100/59 96 16 100 % 10/08/19 1432 (!) 88/72 36.3 C (97.3 F) Temporal 128 14 98 % 10/08/19 0900 118/59 101 14 97 % 10/08/19 0807 115/69 37.1 C (98.7 F) Oral 101 18 98 % 10/08/19 0800 110/67 101 15 96 % 10/08/19 0600 124/65 101 18 97 % 10/08/19 0530 117/69 105 17 97 % 10/08/19 0500 124/74 104 18 96 % 10/08/19 0430 116/75 109 18 98 % 10/08/19 0400 120/75 111 19 97 % 10/08/19 0330 117/69 111 19 96 % 10/08/19 0310 106/64 37 C (98.6 F) Oral 118 13 98 % 59.7 kg (131 lb 9.8 oz) 10/08/19 0300 117/65 115 18 97 % 10/08/19 0230 110/67 115 18 97 % 10/08/19 0200 118/68 110 17 98 % 10/08/19 0130 129/81 110 17 97 % 10/08/19 0100 122/69 117 14 98 % 10/08/19 0000 122/70 101 19 98 % 10/07/19 2343 136/78 36.8 C (98.3 F) Oral 117 16 99 % 10/07/19 2330 133/77 100 18 98 % 10/07/19 2300 130/77 96 18 97 % 10/07/19 2229 134/79 95 17 96 % 10/07/19 2200 139/74 105 15 98 % 10/07/19 2130 105/63 99 16 96 % 10/07/19 2100 113/71 121 17 98 % 10/07/19 2030 114/80 125 13 99 % 10/07/19 2000 116/71 96 17 98 % 10/07/19 1931 116/74 36.3 C (97.4 F) Axillary 101 12 98 % 10/07/19 1925 125/80 106 14 97 % 10/07/19 1900 118/73 99 17 97 % 10/07/19 1820 (!) 76/58 36.3 C (97.3 F) Oral 108 12 97 % 10/07/19 1735 99/68 36.4 C (97.6 F) 109 16 98 % 10/07/19 1730 96/66 101 19 100 % 10/07/19 1725 91/65 100 17 100 % 10/07/19 1720 113/68 98 18 100 % 10/07/19 1715 118/66 95 18 100 % 10/07/19 1710 104/63 100 17 100 % 10/07/19 1705 113/71 100 18 100 % 10/07/19 1700 119/73 91 16 100 % 10/07/19 1655 90/55 92 18 100 % 10/07/19 1650 136/68 85 14 100 % 10/07/19 1645 112/73 95 16 100 % 10/07/19 1642 102/64 36.5 C (97.7 F) Temporal 98 20 100 % Intake/Output Summary (Last 24 hours) at 10/08/2019 1607 Last data filed at 10/08/2019 1500 Gross per 24 hour Intake 6512 ml Output 1935 ml Net 4577 ml Physical Exam Constitutional: He is oriented to person, place, and time. Thin elderly man, lying in bed not in any distress HENT: Head: Normocephalic and atraumatic. Mouth/Throat: Oropharynx is clear and moist. Eyes: Pupils are equal, round, and reactive to light. Neck: Normal range of motion. No JVD present. Cardiovascular: Normal rate and regular rhythm. No murmur heard. Pulmonary/Chest: Effort normal. He has no wheezes. He has no rales. Abdominal: Soft. Bowel sounds are normal. There is no abdominal tenderness. AUGUSTUS drain in place Musculoskeletal: Comments: Right groin with dressing, AUGUSTUS drain in place, swelling and redness right leg i mproved, bilateral feet cool to touch, posterior tibial pulses by doppler only, no DP pulses appreciated Lymphadenopathy: He has no cervical adenopathy. Neurological: He is alert and oriented to person, place, and time. No cranial nerve deficit . Skin: Skin is warm. Psychiatric: Affect normal. DATA Recent Results (from the past 24 hour(s)) CBC no Differential Result Value Ref Range WBC 18.93 (H) 3.80 - 11.00 K/uL Red Blood Cells 3.18 (L) 4.20 - 5.70 M/uL Hemoglobin 10.6 (L) 13.2 - 17.0 g/dL Hematocrit 31.4 (L) 39.0 - 50.0 % MCV 98.7 80.0 - 100.0 fl MCH 33.3 27.0 - 34.0 pg MCHC 33.8 32.0 - 35.5 g/dL RDW-SD 58.3 (H) 37 - 53 fl Platelet Count 154 150 - 400 K/uL MPV 10.6 fl Basic Metabolic Panel Result Value Ref Range Na 137 135 - 145 mmol/L K 4.4 3.5 - 4.9 mmol/L Cl 109 99 - 109 mmol/L CO2 21 (L) 23 - 32 mmol/L Anion Gap 11 5 - 20 mmol/L Glucose 126 (H) 65 - 99 mg/dL BUN 8 8 - 25 mg/dL Creatinine 0.68 (L) 0.70 - 1.30 mg/dL BUN/Creatinine Ratio 12 Calcium 7.0 (L) 8.5 - 10.5 mg/dL Estimated GFR >60 >60 mL/min/1.73m2 Protime INR Result Value Ref Range INR 1.3 PTT Result Value Ref Range PTT 28 23 - 32 seconds Magnesium Result Value Ref Range Magnesium 1.6 (L) 1.7 - 2.4 mg/dL CBC with Differential Result Value Ref Range WBC 17.81 (H) 3.80 - 11.00 K/uL Red Blood Cells 2.79 (L) 4.20 - 5.70 M/uL Hemoglobin 9.5 (L) 13.2 - 17.0 g/dL Hematocrit 27.4 (L) 39.0 - 50.0 % MCV 98.2 80.0 - 100.0 fl MCH 34.1 (H) 27.0 - 34.0 pg MCHC 34.7 32.0 - 35.5 g/dL RDW-SD 56.7 (H) 37 - 53 fl Platelet Count 128 (L) 150 - 400 K/uL MPV 11.7 fl Diff Type AUTOMATED % nRBC 0.0 0 /100WBC % Neutrophils 79.60 % IMMATURE GRANULOCYTE 1.10 % % Lymphocytes 8.70 % Monocyte % 10.00 % Eosinophils % 0.20 % Basophils % 0.40 % Neutrophils, Absolute 14.18 (H) 1.90 - 7.40 K/uL IMMATURE GRANS AB 0.19 (H) 0.00 - 0.07 K/uL Absolute Lymphocytes 1.55 1.00 - 3.90 K/uL Absolute Monocytes 1.78 (H) 0.00 - 0.80 K/uL Eosinophils, Absolute 0.03 0.00 - 0.50 K/uL Basophils, Absolute 0.08 0.00 - 0.10 K/uL Basic Metabolic Panel Result Value Ref Range Na 134 (L) 135 - 145 mmol/L K 4.2 3.5 - 4.9 mmol/L Cl 105 99 - 109 mmol/L CO2 21 (L) 23 - 32 mmol/L Anion Gap 12 5 - 20 mmol/L Glucose 109 (H) 65 - 99 mg/dL BUN 12 8 - 25 mg/dL Creatinine 1.00 0.70 - 1.30 mg/dL BUN/Creatinine Ratio 12 Calcium 7.2 (L) 8.5 - 10.5 mg/dL Estimated GFR >60 >60 mL/min/1.73m2 POC ISTAT, CG8, Arterial Result Value Ref Range pH, Arterial, POC 7.334 (L) 7.350 - 7.450 pCO2, Arterial 39 35 - 45 mmHg pO2, Arterial 245 (HH) 80 - 105 mmHg HCO3, Arterial 21 (L) 22 - 26 mmol/L TCO2, Arterial, POC 22 (L) 23 - 27 mEq/L POC Base Deficit mmol/L 5 (H) 0.0 - 2.0 mmol/L SO2, Arterial, POC 100 (H) 95 - 98 % Sodium, POC 133 (L) 135 - 145 mEq/L Potassium, POC 3.8 3.5 - 5.0 mEq/L Ionized Calcium, POC 0.94 (L) 1.12 - 1.32 mmol/L Glucose, POC 87 65 - 99 mg/dL Hematocrit, POC 17 (LL) 40.0 - 50.0 % Hemoglobin, POC 5.8 (LL) 13.7 - 16.7 g/dL POC ISTAT, CG8, Arterial Result Value Ref Range pH, Arterial, POC 7.291 (L) 7.350 - 7.450 pCO2, Arterial 39 35 - 45 mmHg pO2, Arterial 237 (HH) 80 - 105 mmHg HCO3, Arterial 19 (L) 22 - 26 mmol/L TCO2, Arterial, POC 20 (L) 23 - 27 mEq/L POC Base Deficit mmol/L 8 (H) 0.0 - 2.0 mmol/L SO2, Arterial, POC 100 (H) 95 - 98 % Sodium, POC 135 135 - 145 mEq/L Potassium, POC 3.6 3.5 - 5.0 mEq/L Ionized Calcium, POC 0.88 (L) 1.12 - 1.32 mmol/L Glucose, POC 99 65 - 99 mg/dL Hematocrit, POC 25 (L) 40.0 - 50.0 % Hemoglobin, POC 8.5 (L) 13.7 - 16.7 g/dL IMAGES Recent Results (from the past 360 hour(s)) VAS Carotid Duplex Bilateral Narrative CAROTID DUPLEX ULTRASOUND CLINICAL INFORMATION: Uncontrolled hypertension and cholesterol. COMPARISON: None PROCEDURE: Evaluation of the extracranial carotid and vertebral arteries with production of real-time images integrating B-mode two-dimensional vascular structure, Doppler spectral analysis and color-flow Doppler imaging. Carotid stenosis measurements based on Society of Radiologists in Ultrasound consensus and [place] Criteria. FINDINGS: Peak systolic and diastolic velocities measured in the common and internal carotid arteries. All velocities recorded in cm/sec: Anterior Circulation: Right CCA: 62/14 ICA: 56/13 ECA: 147/21 ICA/CCA: .9 Left CCA: 74/15 ICA: 67 /18 ECA: 101/11 ICA/CCA: .9 Posterior Circulation: Right: Vertebral: 62/12 Antegrade Left: Vertebral: 75/12 Antegrade Lauren scale images: Right: No significant atherosclerotic plaque or significant stenosis by grayscale imaging. Left: No significant atherosclerotic plaque or significant stenosis by grayscale imaging. Atherosclerotic vascular disease of both carotid bulbs but no high-grade stenosis to visual inspection. Multifocal calcified plaque but no high-grade stenosis to visual inspection. There is some shadowing through the plaques for example at the left carotid bulb on image 33/45. However waveforms are normal Impression 1. Atherosclerotic vascular disease with some shadowing plaque, limiting proximal left ICA visualization. However, no high-grade stenosis of either internal carotid artery by velocity. Final Report Signed by: Jacky Anderson, Nicolas Graham Date/Time: 10/04/2019 12:06 PM PROBLEM LIST Principal Problem: Pseudoaneurysm right aorto femoral bypass Active Problems: Alcohol abuse Tobacco abuse Cellulitis of right foot Peripheral arterial disease ASSESSMENT & PLAN Cellulitis, right foot Improving Unasyn D4 MRSA PCR negative Prn pain medication Pseudoaneurysm right femoral artery S/p right femoral limb of axillary bifemoral bypass with interposition graft; right femora l endarterectomy with patch angioplasty; left femoral endarterectomy, right to left femoral to femoral bypass on 10/07/19 Complicated by fem-fem bypass thrombosis, s/p thrombectomy, embolectomy 10/08/19 Acute blood loss anemia, postsurgical hgb 8.5 now Continue to monitor tranfuse for hgb <7 or per vascular surgery's discretion Consider JALEEL From decreased renal perfusion Secondary to hypotension Creatinine today 1.0, baseline of ~ 7 Will continue to monitor creatinine Optimize hemodynamics Alcohol abuse CIWA protocol in place counseled Nicotine abuse On nicotine patch Counseled Elevated BP without prior diagnosis of HTN Hypotensive post op, on neosynephrine Held lisinopril 10mg daliy Prn labetalol Hypokalemia Replete per protocol Hypomagnesemia Related to ETOH abuse Replete per protocol DVT prophylaxis with lovenox Disposition: pending Code Status: Prior Chyna Shook MD 10/08/2019 4:07 PM PDT Magdiel Orta MD - 8:53 AM PDTVascular surgery 10/08/2019 Mr. Theodore is s/p repair of a large right groin psuedoaneurysm originating from the limb of his old aortobifemoral bypass with patch angioplasty of common femoral, interposition graft from right limb of aortobifemoral bypass to right common femoral, left common femoral endart erectomy, and right to left femoral to femoral artery bypass. Patient is doing well this mo rning. Quite a bit of pain from the right retroperitoneal exposure. He has a good PT, amisha levi, and AT signal on the right, however has a faint PT signal on the left which is new. N o signal in the fem-fem unfortunately. Bedside ultrasound holden not confirm flow in the fem-f em bypass. Given these finding I think the best course of action is to take back to the OR for thrombectomy of fem-fem, possible revision. I reviewed findings with patient. Patient wishes to proceed. Consent obtained. Magdiel Arteaga MD Vascular Surgery Jada Wilkins RN - 10/07/2019 7:45 PM PDTPt arrived at 1800. SBPs in 70-80s upon arrival. N eo increased to 50mcg. Pedal pulses remain absent. Post tib pulses dopplerable. Medicated fo r pain with PRN tylenol. Remains on RA. HR 90-110s. JADA SHINE RN Chyna Rashid MD - 10/07/2019 3:55 PM PDT [facility] Service: Hospitalist Progress Note Hospital Day: LOS: 4 days SUBJECTIVE Patient Summary: Mr. Theodore is a 59 yr old man active smoker 1ppday with alcohol abuse, hx of PAD, s/p right aorto bifemoral bypass in 1999 complicated by pseudoaneurysm, s/p revision, was transferred from [facility] ED for right foot swelling and increasing size of the right groin pseud oaneurysm and was transferred here for cellulitis of the right foot and impending pseudoaneu rsym rupture. Events Overnight: Patient was seen today at bedside, s/p pseudoaneursym repair. EBL was 1L. He received 2 uni ts pRBCs and now on neosynephrine. Scheduled Medications [APR Hold] ampicillin-sulbactam 3 g Intravenous Q6H [APR Hold] aspirin 81 mg Oral Daily [APR Hold] atorvaSTATin 40 mg Oral Nightly [APR Hold] ceFAZolin 2 g Intravenous Prior to Incision [APR Hold] heparin 5,000 Units Subcutaneous Q12H [APR Hold] lisinopril 10 mg Oral Daily [APR Hold] nicotine 1 patch Transdermal Daily Continuous Infusions phenylephrine PRN Medications [APR Hold] acetaminophen, [APR Hold] calcium carbonate, heparin, [APR Hold] hydrocortisone, [APR Hold] labetalol, [APR Hold] LORazepam, Magnesium replacement - NON ICU AND Magnesi um AND [APR Hold] magnesium oxide AND [APR Hold] magnesium sulfate AND [APR Hold ] magnesium sulfate, [APR Hold] melatonin, [APR Hold] morphine, [APR Hold] ondansetron, [APR Hold] oxyCODONE-acetaminophen, Potassium replacement - NON ICU AND Potassium AND [] potassium chloride AND [APR Hold] potassium chloride, [APR Hold] senna, thrombi n (recombinant) OBJECTIVE Vital Signs: BP 171/82 | Pulse 76 | Temp 36.4 C (97.6 F) (Temporal) | Resp 18 | Ht 1.702 m (5' 7 ") | Wt 54.3 kg (119 lb 11.2 oz) | SpO2 98% | BMI 18.75 kg/m Patient Vitals for the past 24 hrs: BP Temp Temp src Pulse Resp SpO2 10/07/19 0717 171/82 36.4 C (97.6 F) Temporal 76 18 98 % 10/07/19 0421 163/79 37.1 C (98.7 F) Oral 75 18 94 % 10/07/19 0130 159/78 80 10/06/19 2356 176/88 37.2 C (99 F) Oral 83 20 96 % 10/06/19 1938 150/90 36.9 C (98.4 F) Oral 78 18 97 % 10/06/19 1609 177/89 36.8 C (98.3 F) Temporal 59 18 99 % Intake/Output Summary (Last 24 hours) at 10/07/2019 1555 Last data filed at 10/07/2019 1533 Gross per 24 hour Intake 5600 ml Output 3375 ml Net 2225 ml Physical Exam Constitutional: He is oriented to person, place, and time. Thin elderly man, lying in bed not in any distress HENT: Head: Normocephalic and atraumatic. Mouth/Throat: Oropharynx is clear and moist. Eyes: Pupils are equal, round, and reactive to light. Neck: Normal range of motion. No JVD present. Cardiovascular: Normal rate and regular rhythm. No murmur heard. Pulmonary/Chest: Effort normal. He has no wheezes. He has no rales. Abdominal: Soft. Bowel sounds are normal. There is no abdominal tenderness. Musculoskeletal: Comments: Right groin with dressing, AUGUSTUS drain in place, swelling and redness right leg i mproved, bilateral feet cool to touch, posterior tibial pulses by doppler only, no DP pulses appreciated Lymphadenopathy: He has no cervical adenopathy. Neurological: He is alert and oriented to person, place, and time. No cranial nerve deficit . Skin: Skin is warm. Psychiatric: Affect normal. DATA Recent Results (from the past 24 hour(s)) CBC with Differential Result Value Ref Range WBC 9.34 3.80 - 11.00 K/uL Red Blood Cells 3.86 (L) 4.20 - 5.70 M/uL Hemoglobin 13.8 13.2 - 17.0 g/dL Hematocrit 39.8 39.0 - 50.0 % MCV 103.1 (H) 80.0 - 100.0 fl MCH 35.8 (H) 27.0 - 34.0 pg MCHC 34.7 32.0 - 35.5 g/dL RDW-SD 48.6 37 - 53 fl Platelet Count 156 150 - 400 K/uL MPV 10.2 fl Diff Type AUTOMATED % nRBC 0.0 0 /100WBC % Neutrophils 68.80 % IMMATURE GRANULOCYTE 0.60 % % Lymphocytes 17.30 % Monocyte % 9.50 % Eosinophils % 3.10 % Basophils % 0.70 % Neutrophils, Absolute 6.41 1.90 - 7.40 K/uL IMMATURE GRANS AB 0.06 0.00 - 0.07 K/uL Absolute Lymphocytes 1.62 1.00 - 3.90 K/uL Absolute Monocytes 0.89 (H) 0.00 - 0.80 K/uL Eosinophils, Absolute 0.29 0.00 - 0.50 K/uL Basophils, Absolute 0.07 0.00 - 0.10 K/uL Basic Metabolic Panel Result Value Ref Range Na 134 (L) 135 - 145 mmol/L K 4.1 3.5 - 4.9 mmol/L Cl 103 99 - 109 mmol/L CO2 26 23 - 32 mmol/L Anion Gap 9 5 - 20 mmol/L Glucose 98 65 - 99 mg/dL BUN 13 8 - 25 mg/dL Creatinine 0.81 0.70 - 1.30 mg/dL BUN/Creatinine Ratio 16 Calcium 9.2 8.5 - 10.5 mg/dL Estimated GFR >60 >60 mL/min/1.73m2 Magnesium Result Value Ref Range Magnesium 1.6 (L) 1.7 - 2.4 mg/dL Type and Screen Result Value Ref Range ABO Rh A POSITIVE Antibody Screen NEGATIVE BB BAND HOTEL LOBBY CONCIERGE 0630 BB BAND [place] [facility] [place] [place] [address];[place] [address] UNIT # [id number] Product Code LEUKODEPLETED PC Unit Division 00 Unit Status ISSUED Transfusion Status OK TO TRANSFUSE CROSSMATCH RESULT COMPATIBLE UNIT # [id number] Product Code LEUKODEPLETED PC Unit Division 00 Unit Status ISSUED Transfusion Status OK TO TRANSFUSE CROSSMATCH RESULT COMPATIBLE UNIT # [id number] Product Code LEUKODEPLETED PC Unit Division 00 Unit Status ALLOCATED Transfusion Status OK TO TRANSFUSE CROSSMATCH RESULT COMPATIBLE UNIT # [id number] Product Code LEUKODEPLETED PC Unit Division 00 Unit Status ALLOCATED Transfusion Status OK TO TRANSFUSE CROSSMATCH RESULT COMPATIBLE Red Blood Cells (PRBC) - Crossmatch and Hold Result Value Ref Range Product Code RED CELL GROUP Units ordered 2 BLOOD BANK COMMENT ORDER RECEIVED IN BLOOD BANK. BLOOD BANK COMMENT Testing performed [place] [facility] [place] [place] [address];[place] [address] POC ISTAT, CG8, Arterial Result Value Ref Range pH, Arterial, POC 7.314 (L) 7.350 - 7.450 pCO2, Arterial 44 35 - 45 mmHg pO2, Arterial 183 (H) 80 - 105 mmHg HCO3, Arterial 22 22 - 26 mmol/L TCO2, Arterial, POC 24 23 - 27 mEq/L POC Base Deficit mmol/L 4 (H) 0.0 - 2.0 mmol/L SO2, Arterial, POC 100 (H) 95 - 98 % Sodium, POC 136 135 - 145 mEq/L Potassium, POC 4.1 3.5 - 5.0 mEq/L Ionized Calcium, POC 1.13 1.12 - 1.32 mmol/L Glucose, POC 130 (H) 65 - 99 mg/dL Hematocrit, POC 42 40.0 - 50.0 % Hemoglobin, POC 14.3 13.7 - 16.7 g/dL POC ISTAT, CG8, Arterial Result Value Ref Range pH, Arterial, POC 7.334 (L) 7.350 - 7.450 pCO2, Arterial 39 35 - 45 mmHg pO2, Arterial 214 (HH) 80 - 105 mmHg HCO3, Arterial 20 (L) 22 - 26 mmol/L TCO2, Arterial, POC 22 (L) 23 - 27 mEq/L POC Base Deficit mmol/L 5 (H) 0.0 - 2.0 mmol/L SO2, Arterial, POC 100 (H) 95 - 98 % Sodium, POC 138 135 - 145 mEq/L Potassium, POC 3.6 3.5 - 5.0 mEq/L Ionized Calcium, POC 1.03 (L) 1.12 - 1.32 mmol/L Glucose, POC 111 (H) 65 - 99 mg/dL Hematocrit, POC 36 (L) 40.0 - 50.0 % Hemoglobin, POC 12.2 (L) 13.7 - 16.7 g/dL POC ISTAT, CG8, Arterial Result Value Ref Range pH, Arterial, POC 7.326 (L) 7.350 - 7.450 pCO2, Arterial 41 35 - 45 mmHg pO2, Arterial 221 (HH) 80 - 105 mmHg HCO3, Arterial 21 (L) 22 - 26 mmol/L TCO2, Arterial, POC 22 (L) 23 - 27 mEq/L POC Base Deficit mmol/L 5 (H) 0.0 - 2.0 mmol/L SO2, Arterial, POC 100 (H) 95 - 98 % Sodium, POC 137 135 - 145 mEq/L Potassium, POC 3.8 3.5 - 5.0 mEq/L Ionized Calcium, POC 1.21 1.12 - 1.32 mmol/L Glucose, POC 108 (H) 65 - 99 mg/dL Hematocrit, POC 32 (L) 40.0 - 50.0 % Hemoglobin, POC 10.9 (L) 13.7 - 16.7 g/dL Red Blood Cells (PRBC) - Crossmatch and Hold Result Value Ref Range Product Code RED CELL GROUP Units ordered 2 BLOOD BANK COMMENT ORDER RECEIVED IN BLOOD BANK. BLOOD BANK COMMENT Testing [place] [facility] [place] [place] [address];[place] [address] POC ISTAT, CG8, Arterial Result Value Ref Range pH, Arterial, POC 7.323 (L) 7.350 - 7.450 pCO2, Arterial 40 35 - 45 mmHg pO2, Arterial 234 (HH) 80 - 105 mmHg HCO3, Arterial 21 (L) 22 - 26 mmol/L TCO2, Arterial, POC 22 (L) 23 - 27 mEq/L POC Base Deficit mmol/L 5 (H) 0.0 - 2.0 mmol/L SO2, Arterial, POC 100 (H) 95 - 98 % Sodium, POC 138 135 - 145 mEq/L Potassium, POC 3.9 3.5 - 5.0 mEq/L Ionized Calcium, POC 1.13 1.12 - 1.32 mmol/L Glucose, POC 116 (H) 65 - 99 mg/dL Hematocrit, POC 36 (L) 40.0 - 50.0 % Hemoglobin, POC 12.2 (L) 13.7 - 16.7 g/dL IMAGES Recent Results (from the past 360 hour(s)) VAS Carotid Duplex Bilateral Narrative CAROTID DUPLEX ULTRASOUND CLINICAL INFORMATION: Uncontrolled hypertension and cholesterol. COMPARISON: None PROCEDURE: Evaluation of the extracranial carotid and vertebral arteries with production of real-time images integrating B-mode two-dimensional vascular structure, Doppler spectral analysis and color-flow Doppler imaging. Carotid stenosis measurements based on Society of Radiologists in Ultrasound consensus and Strandness Criteria. FINDINGS: Peak systolic and diastolic velocities measured in the common and internal carotid arteries. All velocities recorded in cm/sec: Anterior Circulation: Right CCA: 62/14 ICA: 56/13 ECA: 147/21 ICA/CCA: .9 Left CCA: 74/15 ICA: 67 /18 ECA: 101/11 ICA/CCA: .9 Posterior Circulation: Right: Vertebral: 62/12 Antegrade Left: Vertebral: 75/12 Antegrade Lauren scale images: Right: No significant atherosclerotic plaque or significant stenosis by grayscale imaging. Left: No significant atherosclerotic plaque or significant stenosis by grayscale imaging. Atherosclerotic vascular disease of both carotid bulbs but no high-grade stenosis to visual inspection. Multifocal calcified plaque but no high-grade stenosis to visual inspection. There is some shadowing through the plaques for example at the left carotid bulb on image 33/45. However waveforms are normal Impression 1. Atherosclerotic vascular disease with some shadowing plaque, limiting proximal left ICA visualization. However, no high-grade stenosis of either internal carotid artery by velocity. Final Report Signed by: Jacky Anderson Timothy Sign Date/Time: 10/04/2019 12:06 PM PROBLEM LIST Principal Problem: Pseudoaneurysm right aorto femoral bypass Active Problems: Alcohol abuse Tobacco abuse Cellulitis of right foot ASSESSMENT & PLAN Cellulitis, right foot Continue unasyn, will consider changing to PO in am MRSA PCR negative Prn pain medication Pseudoaneurysm right femoral artery S/p repair Acute blood loss anemia, postsurgical EBL 1L hgb dropped to 10, S/p 2 units pRBC Last hgb 12 posttransfusion Will continue to monitor Alcohol abuse CIWA protocol in place counseled Nicotine abuse On nicotine patch Counseled Elevated BP without prior diagnosis of HTN BP marginal at PACU, currently on neosynephrine Hold lisinopril 10mg daliy Prn labetalol Hypokalemia Replete per protocol Hypomagnesemia Related to ETOH abuse Replete per protocol DVT prophylaxis with lovenox Disposition: For discharge once cleared by vascular surgery Code Status: Full Code Chyna Shook MD 10/07/2019 3:55 PM PDT Michael Milian PA-C - 10/07/2019 7:08 AM PDT [facility] Service: Vascular Surgery Progress Note Hospital Day: LOS: 4 days Post-Op Day: * No surgery date entered * SUBJECTIVE Patient Summary: The patient is a 59 y.o. 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 He unde rwent aortobifemoral bypass in 1999. 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 He reports that his right foot has been swol roque for about one week now and also developed redness concerning for infection. 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 He was transferred to [facility] for evaluation and Vascular was consulted for management of his right groin pseudoan eurysm. Of note, he continues to drink more than a 6 pack per day and also is smoking 1 ppd currently. He additionally reports bilateral hip and pelvic "burning" which occurs when he w alks short distances that is relieved with resting. He denies any rest pain in either leg. H e denies any pain in his left leg on a regular basis but reports his left foot has been numb for a long time. Events Overnight: NPO since midnight. Surgery postponed yesterday and plan to go to OR this am. No acute events overnight. Scheduled Medications ampicillin-sulbactam 3 g Intravenous Q6H aspirin 81 mg Oral Daily atorvaSTATin 40 mg Oral Nightly ceFAZolin 2 g Intravenous Prior to Incision heparin 5,000 Units Subcutaneous Q12H lisinopril 10 mg Oral Daily nicotine 1 patch Transdermal Daily Continuous Infusions phenylephrine PRN Medications acetaminophen, calcium carbonate, hydrocortisone, labetalol, LORazepam, Magnesium replaceme nt - NON ICU AND Magnesium AND magnesium oxide AND magnesium sulfate AND mag nesium sulfate, melatonin, morphine, ondansetron, oxyCODONE-acetaminophen, Potassium replace ment - NON ICU AND Potassium AND potassium chloride AND potassium chloride, clark a OBJECTIVE Vital Signs: Vitals: 10/07/19 0421 BP: 163/79 Pulse: 75 Resp: 18 Temp: 37.1 C (98.7 F) Constitutional: Cachetic HENT: Right cheek with ulceration. Cardiovascular: Normal rate, regular rhythm Pulmonary/Chest: No respiratory distress, ronchi. Abdominal: Soft. No abdominal distension or tenderness. . Extremities: Poor muscle tone throughout his lower extremities. Neurological: He is alert and oriented. VASCULAR: Large pulsatile mass with thrill noted in right groin. No pulsatile abdominal ma ss noted. Right foot with cellulitis. No wounds noted. Dopplered PT and DP, 5 second capillary refi ll Left foot- Dopplered PT, 5 second capillary refill DATA Recent Results (from the past 24 hour(s)) CBC with Differential Collection Time: 10/07/19 3:55 AM Result Value Ref Range WBC 9.34 3.80 - 11.00 K/uL Red Blood Cells 3.86 (L) 4.20 - 5.70 M/uL Hemoglobin 13.8 13.2 - 17.0 g/dL Hematocrit 39.8 39.0 - 50.0 % MCV 103.1 (H) 80.0 - 100.0 fl MCH 35.8 (H) 27.0 - 34.0 pg MCHC 34.7 32.0 - 35.5 g/dL RDW-SD 48.6 37 - 53 fl Platelet Count 156 150 - 400 K/uL MPV 10.2 fl Diff Type AUTOMATED % nRBC 0.0 0 /100WBC % Neutrophils 68.80 % IMMATURE GRANULOCYTE 0.60 % % Lymphocytes 17.30 % Monocyte % 9.50 % Eosinophils % 3.10 % Basophils % 0.70 % Neutrophils, Absolute 6.41 1.90 - 7.40 K/uL IMMATURE GRANS AB 0.06 0.00 - 0.07 K/uL Absolute Lymphocytes 1.62 1.00 - 3.90 K/uL Absolute Monocytes 0.89 (H) 0.00 - 0.80 K/uL Eosinophils, Absolute 0.29 0.00 - 0.50 K/uL Basophils, Absolute 0.07 0.00 - 0.10 K/uL Basic Metabolic Panel Collection Time: 10/07/19 3:55 AM Result Value Ref Range Na 134 (L) 135 - 145 mmol/L K 4.1 3.5 - 4.9 mmol/L Cl 103 99 - 109 mmol/L CO2 26 23 - 32 mmol/L Anion Gap 9 5 - 20 mmol/L Glucose 98 65 - 99 mg/dL BUN 13 8 - 25 mg/dL Creatinine 0.81 0.70 - 1.30 mg/dL BUN/Creatinine Ratio 16 Calcium 9.2 8.5 - 10.5 mg/dL Estimated GFR >60 >60 mL/min/1.73m2 Magnesium Collection Time: 10/07/19 3:55 AM Result Value Ref Range Magnesium 1.6 (L) 1.7 - 2.4 mg/dL Type and Screen Collection Time: 10/07/19 3:55 AM Result Value Ref Range ABO Rh A POSITIVE Antibody Screen NEGATIVE BB BAND HOTEL LOBBY [employer]CIERGE 0630 BB BAND Testing [place] [facility] [place] [place] [address];[place] [address] UNIT # [id number] Product Code LEUKODEPLETED PC Unit Division 00 Unit Status ALLOCATED Transfusion Status OK TO TRANSFUSE CROSSMATCH RESULT COMPATIBLE UNIT # [id number] Product Code LEUKODEPLETED PC Unit Division 00 Unit Status ALLOCATED Transfusion Status OK TO TRANSFUSE CROSSMATCH RESULT COMPATIBLE Red Blood Cells (PRBC) - Crossmatch and Hold Collection Time: 10/07/19 6:30 AM Result Value Ref Range Product Code RED CELL GROUP Units ordered 2 BLOOD BANK COMMENT ORDER RECEIVED IN BLOOD BANK. BLOOD BANK COMMENT Testing performed [place] [facility] [place] [place] [address];[place] [address] PROBLEM LIST Principal Problem: Pseudoaneurysm right aorto femoral bypass Active Problems: Alcohol abuse Tobacco abuse Cellulitis of right foot ASSESSMENT & PLAN Pseudoaneurysm of right femoral artery / Status post aortobifem bypass complicated by pseud oaneurysm and subsequent right aortofemoral limb graft placement - NPO since midnight. Surge ry postpone yesterday and plan to proceed to OR this am. He did not have any questions rega rding his surgery. Previously consented for the above mentioned procedure. The risks of pr oposed treatment plan include potential bleeding, arterial occlusion, infection, leg ischemi a, heart attack, stroke, and . Will proceed to OR this am. Disposition: To be determined Code Status: Prior Michael Abel PA-C 10/07/2019 Associated attestation - Magdiel Arteaga MD - 10/07/2019 7:25 AM PDTI saw and evaluated th e patient, participated in the management, and agree with the findings in the above note. W e discussed the case and the treatment plan. Case cancelled yesterday d/t OR staffing. No changes overnight. Plan for OR this morning. Magdiel Arteaga MD Vascular Surgery Chyna Shook MD - 10/06/2019 10:34 AM PDT [facility] Service: Hospitalist Progress Note Hospital Day: LOS: 3 days SUBJECTIVE Patient Summary: Mr. Theodore is a 59 yr old man active smoker 1ppday with alcohol abuse, hx of PAD, s/p right aorto bifemoral bypass in 1999 complicated by pseudoaneurysm, s/p revision, was transferred from [facility] ED for right foot swelling and increasing size of the right groin pseud oaneurysm and was transferred here for cellulitis of the right foot and impending pseudoaneu rsym rupture. Events Overnight: Patient was seen today at bedside, has no complaint, pain and swelling of his right foot is improving. Scheduled Medications ampicillin-sulbactam 3 g Intravenous Q6H aspirin 81 mg Oral Daily atorvaSTATin 40 mg Oral Nightly heparin 5,000 Units Subcutaneous Q12H lisinopril 10 mg Oral Daily nicotine 1 patch Transdermal Daily Continuous Infusions PRN Medications acetaminophen, calcium carbonate, hydrocortisone, labetalol, LORazepam, Magnesium replaceme nt - NON ICU AND Magnesium AND magnesium oxide AND magnesium sulfate AND mag nesium sulfate, melatonin, morphine, ondansetron, oxyCODONE-acetaminophen, Potassium replace ment - NON ICU AND Potassium AND potassium chloride AND potassium chloride, clark a OBJECTIVE Vital Signs: BP 166/82 | Pulse 71 | Temp 37 C (98.6 F) (Oral) | Resp 18 | Ht 1.702 m (5' 7") | Wt 54.3 kg (119 lb 11.2 oz) | SpO2 99% | BMI 18.75 kg/m Patient Vitals for the past 24 hrs: BP Temp Temp src Pulse Resp SpO2 08/07/20 0804 166/82 37 C (98.6 F) Oral 71 18 99 % 10/06/19 0406 155/80 36.9 C (98.4 F) Oral 75 18 100 % 10/05/19 2322 159/81 36.7 C (98.1 F) Oral 72 18 97 % 10/05/19 1923 145/74 37 C (98.6 F) Oral 75 18 98 % 10/05/19 1653 151/83 10/05/19 1506 (!) 186/98 78 20 98 % 10/05/19 1459 37.3 C (99.1 F) Oral 78 20 98 % 10/05/19 1200 151/86 36.9 C (98.5 F) Oral 80 18 99 % Intake/Output Summary (Last 24 hours) at 10/06/2019 1034 Last data filed at 10/06/2019 0603 Gross per 24 hour Intake 2841 ml Output 700 ml Net 2141 ml Physical Exam Constitutional: He is oriented to person, place, and time. Thin elderly man, lying in bed not in any distress HENT: Head: Normocephalic and atraumatic. Mouth/Throat: Oropharynx is clear and moist. Eyes: Pupils are equal, round, and reactive to light. Neck: Normal range of motion. No JVD present. Cardiovascular: Normal rate and regular rhythm. No murmur heard. Pulmonary/Chest: Effort normal. He has no wheezes. He has no rales. Abdominal: Soft. Bowel sounds are normal. There is no abdominal tenderness. Musculoskeletal: Comments: + right groin mass; improving redness over entire right foot extending to the distal leg, improving swelling on the lateral side of the right foot Lymphadenopathy: He has no cervical adenopathy. Neurological: He is alert and oriented to person, place, and time. No cranial nerve deficit . Skin: Skin is warm. Psychiatric: Affect normal. DATA Recent Results (from the past 24 hour(s)) CBC with Differential Result Value Ref Range WBC 8.77 3.80 - 11.00 K/uL Red Blood Cells 3.86 (L) 4.20 - 5.70 M/uL Hemoglobin 13.6 13.2 - 17.0 g/dL Hematocrit 38.9 (L) 39.0 - 50.0 % MCV 100.8 (H) 80.0 - 100.0 fl MCH 35.2 (H) 27.0 - 34.0 pg MCHC 35.0 32.0 - 35.5 g/dL RDW-SD 47.2 37 - 53 fl Platelet Count 140 (L) 150 - 400 K/uL MPV 11.0 fl Diff Type AUTOMATED % nRBC 0.0 0 /100WBC % Neutrophils 70.90 % IMMATURE GRANULOCYTE 0.60 % % Lymphocytes 14.00 % Monocyte % 11.40 % Eosinophils % 2.20 % Basophils % 0.90 % Neutrophils, Absolute 6.22 1.90 - 7.40 K/uL IMMATURE GRANS AB 0.05 0.00 - 0.07 K/uL Absolute Lymphocytes 1.23 1.00 - 3.90 K/uL Absolute Monocytes 1.00 (H) 0.00 - 0.80 K/uL Eosinophils, Absolute 0.19 0.00 - 0.50 K/uL Basophils, Absolute 0.08 0.00 - 0.10 K/uL Basic Metabolic Panel Result Value Ref Range Na 136 135 - 145 mmol/L K 3.9 3.5 - 4.9 mmol/L Cl 105 99 - 109 mmol/L CO2 22 (L) 23 - 32 mmol/L Anion Gap 13 5 - 20 mmol/L Glucose 92 65 - 99 mg/dL BUN 9 8 - 25 mg/dL Creatinine 0.70 0.70 - 1.30 mg/dL BUN/Creatinine Ratio 13 Calcium 8.3 (L) 8.5 - 10.5 mg/dL Estimated GFR >60 >60 mL/min/1.73m2 Magnesium Result Value Ref Range Magnesium 1.6 (L) 1.7 - 2.4 mg/dL IMAGES Recent Results (from the past 360 hour(s)) VAS Carotid Duplex Bilateral Narrative CAROTID DUPLEX ULTRASOUND CLINICAL INFORMATION: Uncontrolled hypertension and cholesterol. COMPARISON: None PROCEDURE: Evaluation of the extracranial carotid and vertebral arteries with production of real-time images integrating B-mode two-dimensional vascular structure, Doppler spectral analysis and color-flow Doppler imaging. Carotid stenosis measurements based on Society of Radiologists in Ultrasound consensus and Strandness Criteria. FINDINGS: Peak systolic and diastolic velocities measured in the common and internal carotid arteries. All velocities recorded in cm/sec: Anterior Circulation: Right CCA: 62/14 ICA: 56/13 ECA: 147/21 ICA/CCA: .9 Left CCA: 74/15 ICA: 67 /18 ECA: 101/11 ICA/CCA: .9 Posterior Circulation: Right: Vertebral: 62/12 Antegrade Left: Vertebral: 75/12 Antegrade Lauren scale images: Right: No significant atherosclerotic plaque or significant stenosis by grayscale imaging. Left: No significant atherosclerotic plaque or significant stenosis by grayscale imaging. Atherosclerotic vascular disease of both carotid bulbs but no high-grade stenosis to visual inspection. Multifocal calcified plaque but no high-grade stenosis to visual inspection. There is some shadowing through the plaques for example at the left carotid bulb on image 33/45. However waveforms are normal Impression 1. Atherosclerotic vascular disease with some shadowing plaque, limiting proximal left ICA visualization. However, no high-grade stenosis of either internal carotid artery by velocity. Final Report Signed by: Jacky Anderson Timothy Sign Date/Time: 10/04/2019 12:06 PM PROBLEM LIST Principal Problem: Pseudoaneurysm right aorto femoral bypass Active Problems: Alcohol abuse Tobacco abuse Cellulitis of right foot ASSESSMENT & PLAN Cellulitis, right foot Continue unasyn MRSA PCR negative Prn pain medication Pseudoaneurysm right femoral artery Seen by vascular surgery, plan for repair on 10/06/19 Alcohol abuse CIWA protocol in place counseled Nicotine abuse On nicotine patch Counseled Elevated BP without prior diagnosis of HTN Suspect undiagnosed HTN Started lisinopril 10mg daily 10/05/19, will consider increasing dose if BP continues t obe Prn labetalol Hypokalemia Replete per protocol Hypomagnesemia Related to ETOH abuse Replete per protocol DVT prophylaxis with lovenox Disposition: For discharge once cleared by vascular surgery Code Status: Full Code Cyhna Shook MD 10/06/2019 10:34 AM PDT Arlene Crum PA-C - 10/06/2019 9:32 AM PDT [facility] Service: Vascular Surgery Progress Note Hospital Day: LOS: 3 days Post-Op Day: * No surgery date entered * SUBJECTIVE Patient Summary: The patient is a 59 y.o. 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 He unde rwent aortobifemoral bypass in 1999. 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 He reports that his right foot has been swol roque for about one week now and also developed redness concerning for infection. 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 He was transferred to [facility] for evaluation and Vascular was consulted for management of his right groin pseudoan eurysm. Of note, he continues to drink more than a 6 pack per day and also is smoking 1 ppd currently. He additionally reports bilateral hip and pelvic "burning" which occurs when he w alks short distances that is relieved with resting. He denies any rest pain in either leg. H e denies any pain in his left leg on a regular basis but reports his left foot has been numb for a long time. 10/05/19 Patient complains of right groin pain which has not changed since admission. Signed the consent for bypass. His echocardiogram was completed yesterday with 70% EF. Events Overnight: Patient has no complaints and ready for procedure later today. He is crossmatched 2 units, Covid negative, and vitals stable. He denies any fever, chills, coug h. Scheduled Medications ampicillin-sulbactam 3 g Intravenous Q6H aspirin 81 mg Oral Daily atorvaSTATin 40 mg Oral Nightly heparin 5,000 Units Subcutaneous Q12H lisinopril 10 mg Oral Daily nicotine 1 patch Transdermal Daily Continuous Infusions PRN Medications acetaminophen, calcium carbonate, hydrocortisone, labetalol, LORazepam, Magnesium replaceme nt - NON ICU AND Magnesium AND magnesium oxide AND magnesium sulfate AND mag nesium sulfate, melatonin, morphine, ondansetron, oxyCODONE-acetaminophen, Potassium replace ment - NON ICU AND Potassium AND potassium chloride AND potassium chloride, clrak a OBJECTIVE Vital Signs: Vitals: 10/06/19 0804 BP: 166/82 Pulse: 71 Resp: 18 Temp: 37 C (98.6 F) Constitutional: Cachetic HENT: Right cheek with ulceration. Cardiovascular: Normal rate, regular rhythm Pulmonary/Chest: No respiratory distress, ronchi. Abdominal: Soft. No abdominal distension or tenderness. . Extremities: Poor muscle tone throughout his lower extremities. Neurological: He is alert and oriented. VASCULAR: Large pulsatile mass with thrill noted in right groin. No pulsatile abdominal ma ss noted. Right foot with cellulitis. No wounds noted. Dopplered PT and DP, 5 second capillary refi ll Left foot- Dopplered PT, 5 second capillary refill DATA Recent Results (from the past 24 hour(s)) CBC with Differential Collection Time: 10/06/19 6:27 AM Result Value Ref Range WBC 8.77 3.80 - 11.00 K/uL Red Blood Cells 3.86 (L) 4.20 - 5.70 M/uL Hemoglobin 13.6 13.2 - 17.0 g/dL Hematocrit 38.9 (L) 39.0 - 50.0 % MCV 100.8 (H) 80.0 - 100.0 fl MCH 35.2 (H) 27.0 - 34.0 pg MCHC 35.0 32.0 - 35.5 g/dL RDW-SD 47.2 37 - 53 fl Platelet Count 140 (L) 150 - 400 K/uL MPV 11.0 fl Diff Type AUTOMATED % nRBC 0.0 0 /100WBC % Neutrophils 70.90 % IMMATURE GRANULOCYTE 0.60 % % Lymphocytes 14.00 % Monocyte % 11.40 % Eosinophils % 2.20 % Basophils % 0.90 % Neutrophils, Absolute 6.22 1.90 - 7.40 K/uL IMMATURE GRANS AB 0.05 0.00 - 0.07 K/uL Absolute Lymphocytes 1.23 1.00 - 3.90 K/uL Absolute Monocytes 1.00 (H) 0.00 - 0.80 K/uL Eosinophils, Absolute 0.19 0.00 - 0.50 K/uL Basophils, Absolute 0.08 0.00 - 0.10 K/uL Basic Metabolic Panel Collection Time: 10/06/19 6:27 AM Result Value Ref Range Na 136 135 - 145 mmol/L K 3.9 3.5 - 4.9 mmol/L Cl 105 99 - 109 mmol/L CO2 22 (L) 23 - 32 mmol/L Anion Gap 13 5 - 20 mmol/L Glucose 92 65 - 99 mg/dL BUN 9 8 - 25 mg/dL Creatinine 0.70 0.70 - 1.30 mg/dL BUN/Creatinine Ratio 13 Calcium 8.3 (L) 8.5 - 10.5 mg/dL Estimated GFR >60 >60 mL/min/1.73m2 Magnesium Collection Time: 10/06/19 6:27 AM Result Value Ref Range Magnesium 1.6 (L) 1.7 - 2.4 mg/dL PROBLEM LIST Principal Problem: Pseudoaneurysm right aorto femoral bypass Active Problems: Alcohol abuse Tobacco abuse Cellulitis of right foot ASSESSMENT & PLAN Pseudoaneurysm of right femoral artery / Status post aortobifem bypass complicated by pseud oaneurysm and subsequent right aortofemoral limb graft placement - The patient is tentativel y scheduled for a iliofemoral bypass as well as a right to left fem fem bypass today at 13:3 0. Please keep the patient NPO. He did not have any questions regarding his surgery. Yest erday he was consented for the above mentioned procedure. The risks of proposed treatment p griffin include potential bleeding, arterial occlusion, infection, leg ischemia, heart attack, s troke, and . Patient consented for this procedure and this was filed in his chart. Disposition: To be determined Code Status: Full Code Arlene Lamar PA-C 10/06/2019 Rachid, Haley weston MD - 10/05/2019 12:14 PM PDT [facility] Service: Hospitalist Progress Note Hospital Day: LOS: 2 days SUBJECTIVE Patient Summary: Mr. Theodore is a 59 yr old man active smoker 1ppday with alcohol abuse, hx of PAD, s/p right aorto bifemoral bypass in 1999 complicated by pseudoaneurysm, s/p revision, was transferred from [place]'s ED for right foot swelling and increasing size of the right groin pseud oaneurysm and was transferred here for cellulitis of the right foot and impending pseudoaneu rsym rupture. Events Overnight: Patient was seen today at bedside, complained of pain that was worse on the lateral side of his right foot and mild discomfort in his right groin. Scheduled Medications ampicillin-sulbactam 3 g Intravenous Q6H aspirin 81 mg Oral Daily atorvaSTATin 40 mg Oral Nightly folic acid with thiamine IVPB 1 mg Intravenous Daily heparin 5,000 Units Subcutaneous Q12H nicotine 1 patch Transdermal Daily Continuous Infusions PRN Medications acetaminophen, calcium carbonate, labetalol, LORazepam, Magnesium replacement - NON ICU A ND [START ON 10/06/2019] Magnesium AND magnesium oxide AND magnesium sulfate AND magnesium sulfate, melatonin, morphine, ondansetron, oxyCODONE-acetaminophen, Potassium rep lacement - NON ICU AND [START ON 10/06/2019] Potassium AND potassium chloride AND potassium chloride, senna OBJECTIVE Vital Signs: BP 161/77 | Pulse 68 | Temp 37.1 C (98.8 F) (Oral) | Resp 16 | Ht 1.702 m (5' 7") | Wt 54.3 kg (119 lb 11.2 oz) | SpO2 95% | BMI 18.75 kg/m Patient Vitals for the past 24 hrs: BP Temp Temp src Pulse Resp SpO2 10/05/19 1000 161/77 10/05/19 0720 189/86 37.1 C (98.8 F) Oral 16 95 % 10/05/19 0450 160/78 10/05/19 0448 182/86 36.9 C (98.4 F) Oral 68 16 99 % 10/05/19 0006 (!) 180/96 36.7 C (98.1 F) Oral 68 16 97 % 10/04/19 2031 183/81 36.8 C (98.3 F) Oral 79 16 98 % 10/04/19 1604 137/76 36.6 C (97.9 F) Oral 78 16 99 % 10/04/19 1219 181/80 36.7 C (98 F) Oral 81 16 99 % Intake/Output Summary (Last 24 hours) at 10/05/2019 1214 Last data filed at 10/05/2019 1000 Gross per 24 hour Intake 2448 ml Output 3485 ml Net -1037 ml Physical Exam Constitutional: He is oriented to person, place, and time. Thin elderly man, lying in bed not in any distress HENT: Head: Normocephalic and atraumatic. Mouth/Throat: Oropharynx is clear and moist. Eyes: Pupils are equal, round, and reactive to light. Neck: Normal range of motion. No JVD present. Cardiovascular: Normal rate and regular rhythm. No murmur heard. Pulmonary/Chest: Effort normal. He has no wheezes. He has no rales. Abdominal: Soft. Bowel sounds are normal. There is no abdominal tenderness. Musculoskeletal: Comments: + right groin mass; improving redness over entire right foot extending to the distal leg, improving swelling on the lateral side of the right foot Lymphadenopathy: He has no cervical adenopathy. Neurological: He is alert and oriented to person, place, and time. No cranial nerve deficit . Skin: Skin is warm. Psychiatric: Affect normal. DATA Recent Results (from the past 24 hour(s)) ECHO Complete Result Value Ref Range LVEF-TTE TRANSTHORACIC ECHO 70 % Aortic Valve Area by Planimetry 1.45 cm2 RA PRESSURE 3 mmHg LVIDd 3.63 cm FS 31 % LA volume 44.15 mL Ascending aorta 3.17 cm AV mean gradient 5.27 mmHg Aortic Valve Area by Continuity VTI 1.98 cm2 MV Area by P 1/2 method 2.72 cm2 PV peak gradient 2.21 mmHg LVOT diameter 2.11 cm LVOT peak destiny 95.12 cm/s LVOT peak VTI 18.91 cm AV peak destiny 160.32 cm/s AV VTI 33.46 cm AV peak gradient 10.28 mmHg TV peak gradient 0.77 mmHg PV mean gradient 0.97 mmHg MV Pressure 1/2 time 80.77 msec LA Volume Index 27 mL/m2 AV LVOT Peak Gradient 3.62 mmHg AV LVOT Mean Gradient 1.66 mmHg TR Peak Gradient 18 mmHg TR Velocity 212.75 cm/s PI Peak Velocity 74.32 cm/s LV Diastolic Length 4C 7.96 cm RV Diastolic Basal Diameter 2.69 cm LV Chung's Biplane EF 73 % LV ED Volume (Chung's) 68.34 ml LV ED Volume Index 42 ml/m2 LV ES Volume 18.2 ml LVOT Mean Velocity 60.64 cm/s RVSP Estimated 21 mmHg MV Deceleration Time 264.3 msec MV E/A Ratio 0.81 MV Peak A-Wave 96.32 cm/s MV Peak E-Wave 78.23 cm/s TV Deceleration Time 311.21 msec TV Peak A-Wave 37.53 cm/s TV Peak E-Wave 43.8 cm/s PV Mean Velocity 44.3 cm/s AV Mean Velocity 107.41 cm/s RA Area 13.12 cm2 LA/Aorta Ratio 0.98 LA Area 13.28 cm2 LA Major 0.3346 cm LV ES Volume Index 11 ml/m2 Cardiac Output 6.08 l/min Cardiac Index 3.75 l/min/m2 Vitals Heart Rate Rest 92 Vitals Height 170.2 Vitals Weight 54.30 Aortic Root Diameter 3.22 cm IVS Diastolic Thickness MM 1.28 cm LVPW Diastolic Thickness MM 1.39 cm IVS Systolic Thickness MM 1.69 cm LV Systolic Diameter MM 2.5 cm LVPW Systolic Thickness MM 1.9 cm AV Cusp Seperation MM 1.31 cm LA Systolic Diameter MM 3.16 cm TAPSE 1.96 cm CBC with Differential Result Value Ref Range WBC 7.93 3.80 - 11.00 K/uL Red Blood Cells 4.03 (L) 4.20 - 5.70 M/uL Hemoglobin 13.9 13.2 - 17.0 g/dL Hematocrit 40.3 39.0 - 50.0 % MCV 100.0 80.0 - 100.0 fl MCH 34.5 (H) 27.0 - 34.0 pg MCHC 34.5 32.0 - 35.5 g/dL RDW-SD 45.5 37 - 53 fl Platelet Count 130 (L) 150 - 400 K/uL MPV 10.7 fl Diff Type AUTOMATED % nRBC 0.0 0 /100WBC % Neutrophils 67.70 % IMMATURE GRANULOCYTE 0.60 % % Lymphocytes 17.00 % Monocyte % 11.60 % Eosinophils % 2.10 % Basophils % 1.00 % Neutrophils, Absolute 5.36 1.90 - 7.40 K/uL IMMATURE GRANS AB 0.05 0.00 - 0.07 K/uL Absolute Lymphocytes 1.35 1.00 - 3.90 K/uL Absolute Monocytes 0.92 (H) 0.00 - 0.80 K/uL Eosinophils, Absolute 0.17 0.00 - 0.50 K/uL Basophils, Absolute 0.08 0.00 - 0.10 K/uL Basic Metabolic Panel Result Value Ref Range Na 134 (L) 135 - 145 mmol/L K 3.3 (L) 3.5 - 4.9 mmol/L Cl 102 99 - 109 mmol/L CO2 26 23 - 32 mmol/L Anion Gap 9 5 - 20 mmol/L Glucose 92 65 - 99 mg/dL BUN 8 8 - 25 mg/dL Creatinine 0.70 0.70 - 1.30 mg/dL BUN/Creatinine Ratio 11 Calcium 8.4 (L) 8.5 - 10.5 mg/dL Estimated GFR >60 >60 mL/min/1.73m2 Magnesium Result Value Ref Range Magnesium 1.7 1.7 - 2.4 mg/dL IMAGES Recent Results (from the past 360 hour(s)) VAS Carotid Duplex Bilateral Narrative CAROTID DUPLEX ULTRASOUND CLINICAL INFORMATION: Uncontrolled hypertension and cholesterol. COMPARISON: None PROCEDURE: Evaluation of the extracranial carotid and vertebral arteries with production of real-time images integrating B-mode two-dimensional vascular structure, Doppler spectral analysis and color-flow Doppler imaging. Carotid stenosis measurements based on Society of Radiologists in Ultrasound consensus and [place] Criteria. FINDINGS: Peak systolic and diastolic velocities measured in the common and internal carotid arteries. All velocities recorded in cm/sec: Anterior Circulation: Right CCA: 62/14 ICA: 56/13 ECA: 147/21 ICA/CCA: .9 Left CCA: 74/15 ICA: 67 /18 ECA: 101/11 ICA/CCA: .9 Posterior Circulation: Right: Vertebral: 62/12 Antegrade Left: Vertebral: 75/12 Antegrade Lauren scale images: Right: No significant atherosclerotic plaque or significant stenosis by grayscale imaging. Left: No significant atherosclerotic plaque or significant stenosis by grayscale imaging. Atherosclerotic vascular disease of both carotid bulbs but no high-grade stenosis to visual inspection. Multifocal calcified plaque but no high-grade stenosis to visual inspection. There is some shadowing through the plaques for example at the left carotid bulb on image 33/45. However waveforms are normal Impression 1. Atherosclerotic vascular disease with some shadowing plaque, limiting proximal left ICA visualization. However, no high-grade stenosis of either internal carotid artery by velocity. Final Report Signed by: Jacky Anderson Timothy Sign Date/Time: 10/04/2019 12:06 PM PROBLEM LIST Principal Problem: Pseudoaneurysm right aorto femoral bypass Active Problems: Alcohol abuse Tobacco abuse Cellulitis of right foot ASSESSMENT & PLAN Cellulitis, right foot Continue unasyn MRSA PCR negative Prn pain medication Pseudoaneurysm right femoral artery Seen by vascular surgery, plan for repair on 10/06/19 NPO tonight Alcohol abuse CIKY protocol in place counseled Nicotine abuse On nicotine patch Counseled Elevated BP without prior diagnosis of HTN Suspect undiagnosed HTN Start lisinopril 10mg daily Prn albuterol Hypokalemia Replete per protocol DVT prophylaxis with lovenox Disposition: For discharge once cleared by vascular surgery Code Status: Full Code Chyna Shook MD 10/05/2019 12:14 PM PDT Arlene Crum PA-C - 10/05/2019 8:18 AM PDT [facility] Service: Vascular Surgery Progress Note Hospital Day: LOS: 2 days Post-Op Day: * No surgery date entered * SUBJECTIVE Patient Summary: The patient is a 59 y.o. 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 He unde rwent aortobifemoral bypass in 1999. 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 He reports that his right foot has been swol roque for about one week now and also developed redness concerning for infection. 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 He was transferred to [facility] for evaluation and Vascular was consulted for management of his right groin pseudoan eurysm. Of note, he continues to drink more than a 6 pack per day and also is smoking 1 ppd currently. He additionally reports bilateral hip and pelvic "burning" which occurs when he w alks short distances that is relieved with resting. He denies any rest pain in either leg. H e denies any pain in his left leg on a regular basis but reports his left foot has been numb for a long time. Events Overnight: Patient complains of right groin pain which has not changed since ad mission. He is prepared for his procedure tomorrow and signed the consent. His echocardiog vidal was completed yesterday with 70% EF. He denies any fever, chills, cough. Scheduled Medications ampicillin-sulbactam 3 g Intravenous Q6H aspirin 81 mg Oral Daily atorvaSTATin 40 mg Oral Nightly folic acid with thiamine IVPB 1 mg Intravenous Daily heparin 5,000 Units Subcutaneous Q12H nicotine 1 patch Transdermal Daily Continuous Infusions PRN Medications acetaminophen, calcium carbonate, labetalol, LORazepam, Magnesium replacement - NON ICU A ND [START ON 10/06/2019] Magnesium AND magnesium oxide AND magnesium sulfate AND magnesium sulfate, melatonin, morphine, ondansetron, oxyCODONE-acetaminophen, Potassium rep lacement - NON ICU AND [START ON 10/06/2019] Potassium AND potassium chloride AND potassium chloride, senna OBJECTIVE Vital Signs: Vitals: 10/05/19 0720 BP: 189/86 Pulse: Resp: 16 Temp: 37.1 C (98.8 F) Constitutional: Cachetic HENT: Right cheek with ulceration. Cardiovascular: Normal rate, regular rhythm Pulmonary/Chest: No respiratory distress, ronchi. Abdominal: Soft. No abdominal distension or tenderness. . Extremities: Poor muscle tone throughout his lower extremities. Neurological: He is alert and oriented. VASCULAR: Large pulsatile mass with thrill noted in right groin. No pulsatile abdominal ma ss noted. Right foot with cellulitis. No wounds noted. Dopplered PT and DP, 5 second capillary refi ll Left foot- Dopplered PT, 5 second capillary refill DATA Recent Results (from the past 24 hour(s)) MRSA NAAT Collection Time: 10/04/19 9:41 AM Specimen: Nares; Tissue Result Value Ref Range SOURCE: NARES(NOSE) Result NEGATIVE MRSNEG ECHO Complete Collection Time: 10/04/19 3:31 PM Result Value Ref Range LVEF-TTE TRANSTHORACIC ECHO 70 % Aortic Valve Area by Planimetry 1.45 cm2 RA PRESSURE 3 mmHg LVIDd 3.63 cm FS 31 % LA volume 44.15 mL Ascending aorta 3.17 cm AV mean gradient 5.27 mmHg Aortic Valve Area by Continuity VTI 1.98 cm2 MV Area by P 1/2 method 2.72 cm2 PV peak gradient 2.21 mmHg LVOT diameter 2.11 cm LVOT peak destiny 95.12 cm/s LVOT peak VTI 18.91 cm AV peak destiny 160.32 cm/s AV VTI 33.46 cm AV peak gradient 10.28 mmHg TV peak gradient 0.77 mmHg PV mean gradient 0.97 mmHg MV Pressure 1/2 time 80.77 msec LA Volume Index 27 mL/m2 AV LVOT Peak Gradient 3.62 mmHg AV LVOT Mean Gradient 1.66 mmHg TR Peak Gradient 18 mmHg TR Velocity 212.75 cm/s PI Peak Velocity 74.32 cm/s LV Diastolic Length 4C 7.96 cm RV Diastolic Basal Diameter 2.69 cm LV Chung's Biplane EF 73 % LV ED Volume (Chung's) 68.34 ml LV ED Volume Index 42 ml/m2 LV ES Volume 18.2 ml LVOT Mean Velocity 60.64 cm/s RVSP Estimated 21 mmHg MV Deceleration Time 264.3 msec MV E/A Ratio 0.81 MV Peak A-Wave 96.32 cm/s MV Peak E-Wave 78.23 cm/s TV Deceleration Time 311.21 msec TV Peak A-Wave 37.53 cm/s TV Peak E-Wave 43.8 cm/s PV Mean Velocity 44.3 cm/s AV Mean Velocity 107.41 cm/s RA Area 13.12 cm2 LA/Aorta Ratio 0.98 LA Area 13.28 cm2 LA Major 0.3346 cm LV ES Volume Index 11 ml/m2 Cardiac Output 6.08 l/min Cardiac Index 3.75 l/min/m2 Vitals Heart Rate Rest 92 Vitals Height 170.2 Vitals Weight 54.30 Aortic Root Diameter 3.22 cm IVS Diastolic Thickness MM 1.28 cm LVPW Diastolic Thickness MM 1.39 cm IVS Systolic Thickness MM 1.69 cm LV Systolic Diameter MM 2.5 cm LVPW Systolic Thickness MM 1.9 cm AV Cusp Seperation MM 1.31 cm LA Systolic Diameter MM 3.16 cm TAPSE 1.96 cm CBC with Differential Collection Time: 10/05/19 5:02 AM Result Value Ref Range WBC 7.93 3.80 - 11.00 K/uL Red Blood Cells 4.03 (L) 4.20 - 5.70 M/uL Hemoglobin 13.9 13.2 - 17.0 g/dL Hematocrit 40.3 39.0 - 50.0 % MCV 100.0 80.0 - 100.0 fl MCH 34.5 (H) 27.0 - 34.0 pg MCHC 34.5 32.0 - 35.5 g/dL RDW-SD 45.5 37 - 53 fl Platelet Count 130 (L) 150 - 400 K/uL MPV 10.7 fl Diff Type AUTOMATED % nRBC 0.0 0 /100WBC % Neutrophils 67.70 % IMMATURE GRANULOCYTE 0.60 % % Lymphocytes 17.00 % Monocyte % 11.60 % Eosinophils % 2.10 % Basophils % 1.00 % Neutrophils, Absolute 5.36 1.90 - 7.40 K/uL IMMATURE GRANS AB 0.05 0.00 - 0.07 K/uL Absolute Lymphocytes 1.35 1.00 - 3.90 K/uL Absolute Monocytes 0.92 (H) 0.00 - 0.80 K/uL Eosinophils, Absolute 0.17 0.00 - 0.50 K/uL Basophils, Absolute 0.08 0.00 - 0.10 K/uL Basic Metabolic Panel Collection Time: 10/05/19 5:02 AM Result Value Ref Range Na 134 (L) 135 - 145 mmol/L K 3.3 (L) 3.5 - 4.9 mmol/L Cl 102 99 - 109 mmol/L CO2 26 23 - 32 mmol/L Anion Gap 9 5 - 20 mmol/L Glucose 92 65 - 99 mg/dL BUN 8 8 - 25 mg/dL Creatinine 0.70 0.70 - 1.30 mg/dL BUN/Creatinine Ratio 11 Calcium 8.4 (L) 8.5 - 10.5 mg/dL Estimated GFR >60 >60 mL/min/1.73m2 Magnesium Collection Time: 10/05/19 5:02 AM Result Value Ref Range Magnesium 1.7 1.7 - 2.4 mg/dL PROBLEM LIST Principal Problem: Pseudoaneurysm right aorto femoral bypass Active Problems: Alcohol abuse Tobacco abuse Cellulitis of right foot ASSESSMENT & PLAN Pseudoaneurysm of right femoral artery / Status post aortobifem bypass complicated by pseud oaneurysm and subsequent right aortofemoral limb graft placement - The patient will require revascularization and open repair for his enlarging right RED HAT OPEN STACK ADMINISTRATOR pseudoaneurysm. He will need r etroperitoneal exposure with anticipated iliofemoral bypass as well as a right to left fem f em bypass. Patient is tentatively scheduled for his procedure tomorrow, 10/06/2019. The benef its and risks of operation were explained to the patient and the patient agreed to proceed. The risks of proposed treatment plan include potential bleeding, arterial occlusion, infect ion, leg ischemia, heart attack, stroke, and . Patient consented for this procedure. Please continue his aspirin and statin therapy. Patient is NPO after midnight. We had a lengthy discussion about smoking cessation. He is committed to quitting smoking. He would like to be discharged with nicotine patches. Disposition: To be determined Code Status: Full Code Arlene Lamar PA-C 10/05/2019 Haley Rashid MD - 10/04/2019 9:15 AM PDT [facility] Service: Hospitalist Progress Note Hospital Day: LOS: 1 day SUBJECTIVE Patient Summary: Mr. Theodore is a 59 yr old man active smoker 1ppday with alcohol abuse, hx of PAD, s/p right aorto bifemoral bypass in 1999 complicated by pseudoaneurysm, s/p revision, was transferred from [place]' ED for right foot swelling and increasing size of the right groin pseud oaneurysm and was transferred here for cellulitis of the right foot and impending pseudoaneu rsym rupture. Events Overnight: Patient was seen today at bedside, complained of pain that was worse on the lateral side of his right foot and mild discomfort in his right groin. Scheduled Medications ampicillin-sulbactam 3 g Intravenous Q6H atorvaSTATin 40 mg Oral Nightly folic acid with thiamine IVPB 1 mg Intravenous Daily heparin 5,000 Units Subcutaneous Q12H nicotine 1 patch Transdermal Daily Continuous Infusions sodium chloride 0.9% 100 mL/hr at 10/03/19 2345 PRN Medications acetaminophen, calcium carbonate, LORazepam, melatonin, morphine, ondansetron, oxyCODONE-ac etaminophen, senna OBJECTIVE Vital Signs: BP 154/90 | Pulse 72 | Temp 36.9 C (98.5 F) (Oral) | Resp 16 | Ht 1.702 m (5' 7") | Wt 54.3 kg (119 lb 11.2 oz) | SpO2 97% | BMI 18.75 kg/m Patient Vitals for the past 24 hrs: BP Temp Temp src Pulse Resp SpO2 Height Weight 10/04/19 0700 154/90 36.9 C (98.5 F) Oral 16 97 % 10/04/19 0339 169/77 37.1 C (98.8 F) Oral 72 18 96 % 10/04/19 0021 166/77 36.9 C (98.5 F) Oral 80 19 97 % 10/03/19 2224 1.702 m (5' 7") 54.3 kg (119 lb 11.2 oz) 10/03/19 2218 189/84 36.8 C (98.2 F) Oral 82 20 96 % Intake/Output Summary (Last 24 hours) at 10/04/2019 0915 Last data filed at 10/04/2019 0339 Gross per 24 hour Intake Output 675 ml Net -675 ml Physical Exam Constitutional: He is oriented to person, place, and time. Thin elderly man, appeared older than stated age, not in any distress HENT: Head: Normocephalic and atraumatic. Mouth/Throat: Oropharynx is clear and moist. Eyes: Pupils are equal, round, and reactive to light. Neck: Normal range of motion. No JVD present. Cardiovascular: Normal rate and regular rhythm. No murmur heard. Pulmonary/Chest: Effort normal. He has no wheezes. He has no rales. Abdominal: Soft. Bowel sounds are normal. There is no abdominal tenderness. Musculoskeletal: Comments: + right groin mass; + redness over entire right foot extending to the distal l eg, + swelling on the lateral side of the right foot Lymphadenopathy: He has no cervical adenopathy. Neurological: He is alert and oriented to person, place, and time. No cranial nerve deficit . Skin: Skin is warm. Psychiatric: Affect normal. DATA Recent Results (from the past 24 hour(s)) CBC with Differential Result Value Ref Range WBC 8.53 3.80 - 11.00 K/uL Red Blood Cells 3.96 (L) 4.20 - 5.70 M/uL Hemoglobin 14.0 13.2 - 17.0 g/dL Hematocrit 40.0 39.0 - 50.0 % MCV 101.0 (H) 80.0 - 100.0 fl MCH 35.4 (H) 27.0 - 34.0 pg MCHC 35.0 32.0 - 35.5 g/dL RDW-SD 47.9 37 - 53 fl Platelet Count 116 (L) 150 - 400 K/uL MPV 10.1 fl Diff Type AUTOMATED % nRBC 0.0 0 /100WBC % Neutrophils 72.10 % IMMATURE GRANULOCYTE 0.40 % % Lymphocytes 14.50 % Monocyte % 10.80 % Eosinophils % 1.50 % Basophils % 0.70 % Neutrophils, Absolute 6.15 1.90 - 7.40 K/uL IMMATURE GRANS AB 0.03 0.00 - 0.07 K/uL Absolute Lymphocytes 1.24 1.00 - 3.90 K/uL Absolute Monocytes 0.92 (H) 0.00 - 0.80 K/uL Eosinophils, Absolute 0.13 0.00 - 0.50 K/uL Basophils, Absolute 0.06 0.00 - 0.10 K/uL Comprehensive Metabolic Panel Result Value Ref Range Na 132 (L) 135 - 145 mmol/L K 3.2 (L) 3.5 - 4.9 mmol/L Cl 99 99 - 109 mmol/L CO2 26 23 - 32 mmol/L Anion Gap 10 5 - 20 mmol/L Glucose 89 65 - 99 mg/dL BUN 5 (L) 8 - 25 mg/dL Creatinine 0.64 (L) 0.70 - 1.30 mg/dL BUN/Creatinine Ratio 8 Calcium 8.6 8.5 - 10.5 mg/dL Protein, Total 6.4 6.3 - 8.2 g/dL Albumin 3.7 3.3 - 4.8 g/dL Globulin 2.7 1.3 - 4.9 g/dL A/G Ratio 1.4 1.0 - 2.4 BILIRUBIN, TOTAL 1.2 0.1 - 1.5 mg/dL ALK PHOS 114 35 - 115 U/L AST 58 (H) 10 - 45 U/L ALT 35 10 - 65 U/L Estimated GFR >60 >60 mL/min/1.73m2 Type and Screen Result Value Ref Range ABO Rh A POSITIVE Antibody Screen NEGATIVE BB BAND LYTY 0809 BB BAND [place] [facility] [place] [place] [address];[place] [address] ECG 12 lead Result Value Ref Range INTERPRETATION TEXT Not Confirmed Coronavirus (COVID-19) NAAT Specimen: Nasopharynx; Tissue Result Value Ref Range SARS-CoV-2, NAAT (COVID-19) NEGATIVE NEG CBC with Differential Result Value Ref Range WBC 8.64 3.80 - 11.00 K/uL Red Blood Cells 3.87 (L) 4.20 - 5.70 M/uL Hemoglobin 13.6 13.2 - 17.0 g/dL Hematocrit 38.9 (L) 39.0 - 50.0 % MCV 100.5 (H) 80.0 - 100.0 fl MCH 35.1 (H) 27.0 - 34.0 pg MCHC 35.0 32.0 - 35.5 g/dL RDW-SD 46.9 37 - 53 fl Platelet Count 114 (L) 150 - 400 K/uL MPV 10.7 fl Diff Type AUTOMATED % nRBC 0.0 0 /100WBC % Neutrophils 71.10 % IMMATURE GRANULOCYTE 0.50 % % Lymphocytes 13.50 % Monocyte % 12.40 % Eosinophils % 1.60 % Basophils % 0.90 % Neutrophils, Absolute 6.14 1.90 - 7.40 K/uL IMMATURE GRANS AB 0.04 0.00 - 0.07 K/uL Absolute Lymphocytes 1.17 1.00 - 3.90 K/uL Absolute Monocytes 1.07 (H) 0.00 - 0.80 K/uL Eosinophils, Absolute 0.14 0.00 - 0.50 K/uL Basophils, Absolute 0.08 0.00 - 0.10 K/uL Comprehensive Metabolic Panel Result Value Ref Range Na 134 (L) 135 - 145 mmol/L K 3.9 3.5 - 4.9 mmol/L Cl 101 99 - 109 mmol/L CO2 26 23 - 32 mmol/L Anion Gap 11 5 - 20 mmol/L Glucose 81 65 - 99 mg/dL BUN 7 (L) 8 - 25 mg/dL Creatinine 0.60 (L) 0.70 - 1.30 mg/dL BUN/Creatinine Ratio 12 Calcium 8.7 8.5 - 10.5 mg/dL Protein, Total 6.6 6.3 - 8.2 g/dL Albumin 2.7 (L) 3.3 - 4.8 g/dL Globulin 3.9 1.3 - 4.9 g/dL A/G Ratio 0.7 (L) 1.0 - 2.4 BILIRUBIN, TOTAL 1.1 0.1 - 1.5 mg/dL ALK PHOS 119 (H) 35 - 115 U/L AST 48 (H) 10 - 45 U/L ALT 35 10 - 65 U/L Estimated GFR >60 >60 mL/min/1.73m2 Lipid Panel Result Value Ref Range Cholesterol 129 <200 mg/dL Triglycerides 65 <150 mg/dL HDL 36 (L) >40 mg/dL LDL, Calculated 80 <100 mg/dL Protime INR Result Value Ref Range INR 1.1 IMAGES No results found for this or any previous visit (from the past 360 hour(s)). PROBLEM LIST Principal Problem: Pseudoaneurysm right aorto femoral bypass Active Problems: Alcohol abuse Tobacco abuse Cellulitis of right foot ASSESSMENT & PLAN Cellulitis, right foot Continue unasyn For MRSA PCR Will check if blood cultures were taken at [facility] Prn pain medication Pseudoaneurysm right femoral artery Seen by vascular surgery, plan for repair on 10/06/19 Alcohol abuse CIWA protocol in place counseled Nicotine abuse On nicotine patch Counseled DVT prophylaxis with lovenox Disposition: For discharge once cleared by vascular surgery Code Status: Full Code Chyna Shook MD 10/04/2019 9:15 AM PDT documented in this enco unter H&P Notes Latoya Oh DO - 10/03/2019 10:22 PM PDTFormatting of this note might be different from t he original. [facility] Service: Hospitalist Admission History & Physical Date of Admission: 10/03/2019 Primary Care Physician: No Physician on file Reason for Admission: Pseudoaneurysm right aortofemoral bypass, cellulitis of the right keny t, alcohol abuse and tobacco abuse History obtained chart review and the patient. CHIEF COMPLAINT: Pseudoaneurysm and prior aortofemoral bypass and cellulitis of the right f oot HISTORY OF PRESENT ILLNESS The patient is a 59 y.o. male with significant past medical history of aorta bifemoral bypa ss in 1999 with subsequent pseudoaneurysm and revision, PAD, alcohol and tobacco abuse who p resents as a transfer from [facility] ED for pseudoaneurysm of the right groin and celluli tis of the RLE. Per patient right pseudoaneurysm of the right groin has been getting bigger for at least a year. Right foot swelling for 5 days. Patient reports similar episodes at [facility] twice a year but this time it has persited. Patient soaked his feet in epson salt two ni ght in a row trying to get the swelling down but it worsen. Right groin and foot are not pa inful but uncomfortable. Patient is walking on his right heel due to pain in the front of hi s foot. Drinks a 6 pack of beer or more daily and smoke 1 ppd. No hx of withdrawal or DT or seizure. [facility] Medications acetaminophen (TYLENOL) tablet 650 mg (has no administration in time range) melatonin tablet 3 mg (has no administration in time range) calcium carbonate (TUMS) chewable tablet 1,000 mg (has no administration in time range) heparin 5,000 units/mL injection 5,000 Units (has no administration in time range) sodium chloride 0.9% (NS) infusion (has no administration in time range) oxyCODONE-acetaminophen (PERCOCET) 5-325 mg per tablet 1-2 tablet (has no administration in time range) morphine injection 2-6 mg (has no administration in time range) senna (SENOKOT) tablet 8.6 mg (has no administration in time range) ondansetron (ZOFRAN) injection 4 mg (has no administration in time range) nicotine (NICODERM) 14 mg/24 hr 1 patch (has no administration in time range) LORazepam (ATIVAN) injection 1-4 mg (has no administration in time range) folic acid 1 mg, thiamine (VITAMIN B-1) 100 mg in sodium chloride 0.9% 50 mL IVPB (has no a dministration in time range) ampicillin-sulbactam (UNASYN) 3 g in sodium chloride 0.9% 100 mL IVPB (has no administratio n in time range) potassium chloride (KLOR-CON) ER tablet 40 mEq (has no administration in time range) Active comorbid conditions include: - hypertension; essential - PVD Review of Systems Constitutional: Negative for appetite change, chills and fever. HENT: Negative for congestion, nosebleeds and sore throat. Eyes: Negative for photophobia and visual disturbance. Respiratory: Positive for cough (when he smokes pot). Negative for chest tightness, shortne ss of breath and wheezing. Cardiovascular: Negative for chest pain and palpitations. Gastrointestinal: Negative for abdominal pain, constipation, diarrhea, nausea and vomiting. Endocrine: Negative for polyuria. Genitourinary: Positive for frequency. Negative for dysuria. Musculoskeletal: Negative for arthralgias and myalgias. Left foot numb. Right painful / uncomfortable Psychiatric/Behavioral: Negative for agitation and confusion. PAST MEDICAL HISTORY Past Medical History: Diagnosis Date Coronary artery disease Hypertension Tobacco use PAST SURGICAL HISTORY Past Surgical History: Procedure Laterality Date AORTO-FEMORAL BYPASS GRAFT Bilateral ALLERGIES No Known Allergies HOME MEDICATIONS Prior to Admission medications None SOCIAL HISTORY reports that he has been smoking. He has been smoking about 1.00 pack per day. He has quit using smokeless tobacco. He reports current alcohol use of about 30.0 standard drinks of al cohol per week. He reports current drug use. Drug: Marijuana. FAMILY HISTORY family history includes Aneurysm in his mother; Stroke in his father. PHYSICAL EXAM BP 189/84 | Pulse 82 | Temp 36.8 C (98.2 F) (Oral) | Resp 20 | Ht 1.702 m (5' 7") | Wt 54.3 kg (119 lb 11.2 oz) | SpO2 96% | BMI 18.75 kg/m Physical Exam Constitutional: General: He is not in acute distress. Appearance: He is underweight. He is not diaphoretic. Comments: Appears older than his stated age HENT: Head: Normocephalic and atraumatic. Right Ear: External ear normal. Left Ear: External ear normal. Nose: Nose normal. Mouth/Throat: Pharynx: No oropharyngeal exudate. Eyes: General: No scleral icterus. Right eye: No discharge. Left eye: No discharge. Conjunctiva/sclera: Conjunctivae normal. Pupils: Pupils are equal, round, and reactive to light. Neck: Musculoskeletal: Normal range of motion and neck supple. Cardiovascular: Rate and Rhythm: Normal rate and regular rhythm. Heart sounds: Normal heart sounds. No murmur. Pulmonary: Effort: Pulmonary effort is normal. No respiratory distress. Breath sounds: Rhonchi present. No wheezing or rales. Chest: Chest wall: No tenderness. Abdominal: General: Bowel sounds are normal. There is no distension. Palpations: Abdomen is soft. Tenderness: There is no abdominal tenderness. Comments: Right groin protuberance 5 x 7 cm, nontender to palpation and without surround ing erythema or edema Musculoskeletal: Normal range of motion. General: No tenderness or deformity. Comments: Right foot edematous and erythematous. Fifth toe nail curve and burring into the flesh Skin: General: Skin is warm and dry. Findings: No erythema or rash. Neurological: Mental Status: He is alert and oriented to person, place, and time. Cranial Nerves: No cranial nerve deficit. Sensory: No sensory deficit. Motor: No abnormal muscle tone. Coordination: Coordination normal. Psychiatric: Behavior: Behavior normal. Thought Content: Thought content normal. Judgment: Judgment normal. DATA Recent Results (from the past 24 hour(s)) CBC with Differential Result Value Ref Range WBC 8.53 3.80 - 11.00 K/uL Red Blood Cells 3.96 (L) 4.20 - 5.70 M/uL Hemoglobin 14.0 13.2 - 17.0 g/dL Hematocrit 40.0 39.0 - 50.0 % MCV 101.0 (H) 80.0 - 100.0 fl MCH 35.4 (H) 27.0 - 34.0 pg MCHC 35.0 32.0 - 35.5 g/dL RDW-SD 47.9 37 - 53 fl Platelet Count 116 (L) 150 - 400 K/uL MPV 10.1 fl Diff Type AUTOMATED % nRBC 0.0 0 /100WBC % Neutrophils 72.10 % IMMATURE GRANULOCYTE 0.40 % % Lymphocytes 14.50 % Monocyte % 10.80 % Eosinophils % 1.50 % Basophils % 0.70 % Neutrophils, Absolute 6.15 1.90 - 7.40 K/uL IMMATURE GRANS AB 0.03 0.00 - 0.07 K/uL Absolute Lymphocytes 1.24 1.00 - 3.90 K/uL Absolute Monocytes 0.92 (H) 0.00 - 0.80 K/uL Eosinophils, Absolute 0.13 0.00 - 0.50 K/uL Basophils, Absolute 0.06 0.00 - 0.10 K/uL Comprehensive Metabolic Panel Result Value Ref Range Na 132 (L) 135 - 145 mmol/L K 3.2 (L) 3.5 - 4.9 mmol/L Cl 99 99 - 109 mmol/L CO2 26 23 - 32 mmol/L Anion Gap 10 5 - 20 mmol/L Glucose 89 65 - 99 mg/dL BUN 5 (L) 8 - 25 mg/dL Creatinine 0.64 (L) 0.70 - 1.30 mg/dL BUN/Creatinine Ratio 8 Calcium 8.6 8.5 - 10.5 mg/dL Protein, Total 6.4 6.3 - 8.2 g/dL Albumin 3.7 3.3 - 4.8 g/dL Globulin 2.7 1.3 - 4.9 g/dL A/G Ratio 1.4 1.0 - 2.4 BILIRUBIN, TOTAL 1.2 0.1 - 1.5 mg/dL ALK PHOS 114 35 - 115 U/L AST 58 (H) 10 - 45 U/L ALT 35 10 - 65 U/L Estimated GFR >60 >60 mL/min/1.73m2 Type and Screen Result Value Ref Range ABO Rh A POSITIVE Antibody Screen NEGATIVE BB BAND LYTY 0809 BB BAND Testing [place] [facility] [place] [place] [address];[place] [address] ECG 12 lead Result Value Ref Range INTERPRETATION TEXT Not Confirmed IMAGING No orders to display EKG at 2310: NSR, VR 72, Qtc 455. Data from [facility] -Ultrasound impression: 6.3 x 5.1 x 5.8 lobulated pseudoaneurysm extending off the anterior aspect of the aortofemoral bypass graft. This has increased in size compared to prior scan s dated November 16, 2016 -Foot x-ray 3 views, impression: Aside from a skin defect and soft tissue swelling overlyin g the fifth toe normal views of right foot ASSESSMENT & PLAN Principal Problem: Pseudoaneurysm right aorto femoral bypass: -Confirmed by ultrasound a 6.3 x 5.1 x 5.8 lobulated pseudoaneurysm -History of bifemoral aortic bypass in 1999 with subsequent revision -Dr. Chandler Veloz consulted, will see patient in the morning -N.p.o. after midnight -IV hydration -Pain management -Lipid profile and statins Active Problems: Cellulitis of right foot: -We will order Unasyn -Podiatric consultation in the morning for ingrown fifth toenail Alcohol abuse: -Drinks 6+ beers per day for many years -Denies history of delirium tremens, seizures from withdrawals or withdrawals -[facility] protocol initiated Tobacco abuse: -Quit smoking today smoke a pack of cigarettes per day -Nicotine patch Hypokalemia GI and DVT prophylaxis Code Status: Full Code Dictation software, Eve, used which may contain errors for similar sounding words even a fter reviewed. Personal communication requested for any clarification Latoya Oh DO 10/03/2019 11:43 PM PDT documented in this encou nter Consult Notes Asia Almodovar RD - 10/14/2019 8:12 AM PDTAssociated Order(s): IP CONSULT TO NUTRITION SE RVICESRD received consult to optimize nutrition for wound healing. RD has been following pt since admission, including an assessment yesterday (10/13/2019). RD has discussed importanc e of high protein foods with pt and pt is receiving high protein supplements. RD will chucho nue to follow per protocol. Asia Almodovar RD 10/14/2019 Feli Jordan RN - 10/10/2019 1:11 PM PDTAssociated Order(s): IP CONSULT TO WOUND OSTOMY NURSEHEIDI lópez from vascular surgery, they would like pt placed on NPWT to prevena dressings placed in OR. Vac Ulta's applied to bilateral groin Prevena dressings. Seal obtained with re-inforceme nt of dressing. Pt tolerated well. Pt has portable prevena machines in the room for DC when pt is ready. LETICIA Garcia RN CWON 10/10/19 13:12 PDT era Vázquez MD - 10/08/2019 5:40 PM PDTFormatting of this note might be different from the [facility] Service: Disc Pad Grinding Machine Feeder Initial Consult Note Jairo Theodore 59 y.o. Date of Admission: 10/03/2019 Reason for Consultation: hypotension Requesting Physician: Dr. Arteaga, [facility] History Obtained From: patient, chart review CHIEF COMPLAINT: right foot cellulitis Subjective HISTORY OF PRESENT ILLNESS The patient is a 59 y.o. male with significant past medical history of smoking, alcohol abu se, PAD ho right aortobifemoral bypass in 1999 complicated by pseudoaneurysm. He was transf erred 5 days ago from [facility] for right foot swelling and increase in size of a right groin pseudoaneurysm. He underwent repair of the right femoral limb of an axillary bifemora l bypass with interposition graft, right fem endarterectomy, left fem endarterectomy, right to left fem to fem artery bypass. Today he then underwent thrombectomy/embolectomy of fem f em bypass, bilateral bypass graft fem po with 6 mm PTFE. He was transferred to the ICU from the 9th floor initially for a dilaudid or fentanyl infusion to control pain, however, the p atient currently denies pain. He has been on phenylephrine gtt though at 50 mcg/min. Lashanda colindres denies complaints. He denies dyspnea. He is slightly tachycardic. Active comorbid conditions include: - CAD - hypertension; essential - PVD - HIV - Drugs/Alcohol/Tobacco - alcohol problem - substance abuse - tobacco use REVIEW OF SYSTEMS At least 10 of the 14 systems are reviewed PAST MEDICAL HISTORY Past Medical History: Diagnosis Date Coronary artery disease Hypertension Tobacco use PAST SURGICAL HISTORY Past Surgical History: Procedure Laterality Date AORTO-FEMORAL BYPASS GRAFT Bilateral ARTERY SURGERY Left 10/07/2019 Procedure: ENDARTERECTOMY FEMORAL; Surgeon: Magdiel Arteaga MD; [place] [facility] [place] FEMORAL-FEMORAL BYPASS GRAFT N/A 10/07/2019 Procedure: BYPASS GRAFT FEMORAL-FEMORAL; Surgeon: Magdiel Arteaga MD; [place] [facility] [place] OTHER SURGICAL HISTORY Right 10/07/2019 Procedure: REPAIR PSEUDOANEURYSM- FEMORAL; Surgeon: Magdiel Arteaga MD; [place] [facility] [place] GABI N OR ALLERGIES Allergies Allergen Reactions Protamine Other (See Comments) Significant hypotension, SBP in the 40s, responded to ephedrine and phenylephrine. Able to give rest of protamine but extremely slow infusion rate. MEDICATIONS PRIOR TO ADMISSION No medications prior to admission. SCHEDULED MEDICATIONS Reviewed. FAMILY HISTORY OF SIGNIFICANCE Family History Problem Relation Age of Onset Aneurysm Mother Stroke Father SOCIAL HISTORY Social History Socioeconomic History Marital status: Single Spouse name: Not on file Number of children: Not on file Years of education: Not on file Highest education level: Not on file Occupational History Not on file Social Needs Financial resource strain: Not on file Food insecurity Worry: Not on file Inability: Not on file Transportation needs Medical: Not on file Non-medical: Not on file Tobacco Use Smoking status: Current Every Day Smoker Packs/day: 1.00 Last attempt to quit: 10/03/2019 Years since quittin.0 Smokeless tobacco: Former User Substance and Sexual Activity Alcohol use: Yes Alcohol/week: 30.0 standard drinks Types: 30 Cans of beer per week Comment: last drink 10/01 Drug use: Yes Types: Marijuana Sexual activity: Not on file Lifestyle Physical activity Days per week: Not on file Minutes per session: Not on file Stress: Not on file Relationships Social connections Talks on phone: Not on file Gets together: Not on file Attends congregation service: Not on file Active member of club or organization: Not on file Attends meetings of clubs or organizations: Not on file Relationship status: Not on file Intimate partner violence Fear of current or ex partner: Not on file Emotionally abused: Not on file Physically abused: Not on file Forced sexual activity: Not on file Other Topics Concern Not on file Social History Narrative Not on file PHYSICAL EXAM VITAL SIGNS Temp: [36.3 C (97.3 F)-37.1 C (98.7 F)] 36.3 C (97.3 F) Pulse: [91-128] 117 Resp: [9-19] 14 BP: (76-139)/(55-81) 91/59 Arterial Line BP: (0-131)/(0-66) 0/0 Intake/Output Summary (Last 24 hours) at 10/08/2019 1743 Last data filed at 10/08/2019 1500 Gross per 24 hour Intake 5912 ml Output 1900 ml Net 4012 ml EXAM GEN: awake, alert, oriented x3, NAD NEURO: PERRLA, EOMI, no facial asymmetry, moves all extremities well GCS: 15 HEENT: sclerae clear, nonicteric, oral mmm, pink, no exudates NECK: supple, trachea midline CV: tachy, RR, S1/S2, no murmur, rub or gallop, peripheral pulses palpable, cap refill bris k LUNGS: clear b/l, no wheezing, rales or rhonchi, symmetric chest expansion, even/unlabored respirations ABD: soft, nondistended, nontender to palpation, no masses, no hepatosplenomegaly, (+) surg ical site w drain on right lower quadrant EXTR: no edema, clubbing or cyanosis, (+) surgical incisions in both groin areas with 2 catrina ins each side SKIN: warm, dry, no rash or mottling; no e/o skin breakdown over the occiput, scapulae, elb ows, sacrum or heels, (+) small hole on right cheek area - no purulent drainage, has been pr esent for several years per patient LINES/TUBES: A line (10/07) PROBLEM LIST Principal Problem: Pseudoaneurysm right aorto femoral bypass Active Problems: Alcohol abuse Tobacco abuse Cellulitis of right foot Peripheral arterial disease Resolved Problems: * No resolved hospital problems. * Diagnostic Studies: Available labs and images have been reviewed and will be addressed as indicated in the assessment and plan. ASSESSMENT & PLAN NEURO: Currently awake and alert. Denies pain. If needed he has dilaudid PRN ordered as well as oxycodone. If this is not enough, then fentanyl or dilaudid drips may be considered with EtCO2 monitoring H/o alcohol abuse: he has been here since 10/02 and so far no signs of withdrawals. On CI [place] CV: Hypotension: likely secondary to fluid shifts perioperatively but could also be due to b leeding. No significant output from drains. Will monitor H/H. Continue neosynephrine to k eep MAP >65 PAD: as above, s/p fem-fem bypass 10/07, s/p repair of a femoral limb of an ax fem bypass (10/06). On ASA, Plavix. Vascular surgery is following closely. PULM: No acute issues Tobacco abuse: needs to stop smoking; cont nicotine patch GI/NUTRITION No acute issues RENAL/LYTES: Creatinine normal at 0.69. Monitor urine ouptut Replace Mg and K per protocol ID: Cellulitis: right foot; on Unasyn, day 4. Appears to be improving. HEME: Anemia: likely due to acute blood loss anemia. Last Hgb 8.5. will recheck. ENDO: No acute issues MUSC/SKIN: No acute issues PROPHYLAXIS: Stress ulcer prophylaxis: N/A DVT prophylaxis: SCD's while in bed VAP: N/A Disposition: ICU care as above. Code Status: Prior Primary Care Physician: No Physician on file *Please bill 60 minutes of critical care time spent evaluating the patient, reviewing the d sue and formulating a plan exclusive of all other procedures. Tera Vázquez MD 10/08/2019 Michael Neville PA-C - 10/04/2019 8:26 AM PDTAssociated Order(s): PROVIDER TO PROVIDER CONSUL T [facility] Service: Vascular Surgery Initial Consult Note Date of Admission: 10/03/2019 Date of Consultation: 10/04/2019 Reason for Consultation: Pseudoaneurysm of right RED HAT OPEN STACK ADMINISTRATOR Primary Care Physician: Maribel Physician on file History Obtained From: Patient, chart review Code Status: Full Code CHIEF COMPLAINT: Right foot swelling and pain; Enlarging right femoral pseudoaneurysm HISTORY OF PRESENT ILLNESS The patient is a 59 y.o. male with significant past medical history of tobacco abuse, HTN, CAD, history of alcohol abuse who presented to [facility] with complaints of cellulitis o f right leg as well as enlarging pseudoaneurysm of right RED HAT OPEN STACK ADMINISTRATOR. He underwent aortobifemoral by pass in 1999. 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 He reports that his right foot has been swollen for about one week now and also developed redness concerning for infection. He underwent a CT scan which reveal ed enlargement of known right RED HAT OPEN STACK ADMINISTRATOR pseudoaneurysm. He was transferred to [facility] for evaluation and Vascular was consulted for management of his right groin pseudoaneurysm. Of note, he con tinues to drink more than a 6 pack per day and also is smoking 1 ppd currently. He additiona lly reports bilateral hip and pelvic "burning" which occurs when he walks short distances th at is relieved with resting. He denies any rest pain in either leg. He denies any pain in hi s left leg on a regular basis but reports his left foot has been numb for a long time. REVIEW OF SYSTEMS Review of Systems - Negative except those listed in HPI. Past Medical History: Diagnosis Date Coronary artery disease Hypertension Tobacco use Past Surgical History: Procedure Laterality Date AORTO-FEMORAL BYPASS GRAFT Bilateral No Known Allergies No medications prior to admission. Scheduled Medications ampicillin-sulbactam 3 g Intravenous Q6H atorvaSTATin 40 mg Oral Nightly folic acid with thiamine IVPB 1 mg Intravenous Daily heparin 5,000 Units Subcutaneous Q12H nicotine 1 patch Transdermal Daily Continuous Infusions sodium chloride 0.9% 100 mL/hr at 10/03/19 3305 PRN Medications acetaminophen, calcium carbonate, LORazepam, melatonin, morphine, ondansetron, oxyCODONE-ac etaminophen, senna Family History Problem Relation Age of Onset Aneurysm Mother Stroke Father Social History Socioeconomic History Marital status: Single Spouse name: Not on file Number of children: Not on file Years of education: Not on file Highest education level: Not on file Tobacco Use Smoking status: Current Every Day Smoker Packs/day: 1.00 Last attempt to quit: 10/03/2019 Smokeless tobacco: Former User Substance and Sexual Activity Alcohol use: Yes Alcohol/week: 30.0 standard drinks Types: 30 Cans of beer per week Comment: last drink 10/01 Drug use: Yes Types: Marijuana PHYSICAL EXAM Vital Signs: BP 154/90 | Pulse 72 | Temp 36.9 C (98.5 F) (Oral) | Resp 16 | Ht 1.702 m (5' 7") | Wt 54.3 kg (119 lb 11.2 oz) | SpO2 97% | BMI 18.75 kg/m Constitutional: Well nourished, no signs of distress HENT: Non icteric sclerae, oropharynx clear. Cardiovascular: Normal rate, regular rhythm Pulmonary/Chest: No respiratory distress. Abdominal: Soft. No abdominal distension or tenderness. Musculoskeletal: Normal range of motion. No evidence of arthritis. Extremities: No edema, cyanosis or clubbing. Neurological: He is alert and oriented. No muscle weakness and normal gait. VASCULAR: Palpable femoral pulse bilaterally. Large pulsatile mass with thrill noted in rig ht groin. No pulsatile abdominal mass noted. Right foot with cellulitis. No wounds noted. DATA Lab Results Component Value Date WBC 8.64 10/04/2019 HGB 13.6 10/04/2019 HCT 38.9 (L) 10/04/2019 PLT 114 (L) 10/04/2019 CHOL 129 10/04/2019 TRIG 65 10/04/2019 HDL 36 (L) 10/04/2019 LDL 80 10/04/2019 ALT 35 10/04/2019 AST 48 (H) 10/04/2019 NA 134 (L) 10/04/2019 K 3.9 10/04/2019 CL 101 10/04/2019 CREA 0.60 (L) 10/04/2019 BUN 7 (L) 10/04/2019 CO2 26 10/04/2019 INR 1.1 10/04/2019 PROBLEM LIST Principal Problem: Pseudoaneurysm right aorto femoral bypass Active Problems: Alcohol abuse Tobacco abuse Cellulitis of right foot ASSESSMENT & PLAN Pseudoaneurysm of right femoral artery / Status post aortobifem bypass complicated by pseud oaneurysm and subsequent right aortofemoral limb graft placement - The patient was transferr ed to [facility] for evaluation of his enlarging pseudoaneurysm, which has been the same size for the last year he reports. He was evaluated by [facility] doctor for his groin mass last year but was lost to any follow up. He has a complex history regarding his aortic repair and his left si de is chronically occluded per review of [facility] notes and angiographic report from 2007. His C TA with runoff yesterday showed enlarging right femoral pseudoaneurysm. Left RED HAT OPEN STACK ADMINISTRATOR shows no in flow but reconstitutes. The patient will require revascularization and open repair for his e nlarging right RED HAT OPEN STACK ADMINISTRATOR pseudoaneurysm. He will need retroperitoneal exposure with anticipated il iofemoral bypass as well as a right to left fem fem bypass. Will begin ASA 81 mg. He was alr federica started on statin therapy. We discussed need for abstinence from tobacco and alcohol. W ill give him a diet today and plan for OR on Wednesday. Keep NPO after midnight on 10/06/19, sips with meds. Covid testing negative. Will also get baseline echo. TRACEY Duran-Megan Vascular Surgery Associated attestation - Magdiel Arteaga MD - 10/05/2019 3:10 PM PDTI saw and evaluated th e patient, participated in the management, and agree with the findings in the above note. Krysta angel discussed the case and the treatment plan. Briefly, Mr. Theodore is a 59 year old male with significant vascular history. He has had a p revious Aortobifemoral bypass with subsequent occluded left limb. He then underwent a aorto -uni endograft. He has not seen a physician for several years. He recently presented to an OSH with a right lower extremity cellulitis. While there he was found to have a large righ t groin pulsatile mass. 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 I discussed his option to include re-do aortobifemoral graft vs iliofemoral, and f em-fem bypass. A redo aortobifemoral bypass would be challenging given need for endograft r emoval, redo surgery. I think the best course of action is an iliofemoral bypass with femor al to femoral bypass to address the left leg. I reviewed the risk, benefits and alternative s to surgery. Patient wishes to proceed. Plan for OR in am. Magdiel Arteaga MD Vascular Surgery documented in this encounter Miscellaneous Notes Plan of Care - Elijah Walker MSW - 10/16/2019 1:16 PM PDTCare Management Final Discharge Plan Readmission Risk: HIGH Discharge Plan Planned Disposition: Home Planned Destination: Home PCP: Lauren Bob MD Patient/Family Notified: yes Transportation will be provided by: Pt friend Transportation Date/Time: Ride Contact: Name: Pt friend Community Support Services Current Outpt/Agency/Support Groups: yes Community Agency Name: [facility] Home Health Disciplines: RN and PT - RN for wound care Equipment Durable Medical Equipment Provider: Home Equipment at Discharge: none Equipment Used at Home: cane, straight, single point Pharmacy Pharmacy/Medication needs: Pt is going to use Rx Pharmacy and will use his Medicare Part D benefits. TRAINING DIRECTOR and Pt called [facility], got him reestablished with the [facility], has not been seen since 2018 . Pt is now assigned to Team Linda [facility]. TRAINING DIRECTOR p/c with Rudolph at [facility] Team Linda Bob, states they will be calling Pt for follow up appt and will send referral for outpatient wound care. TRAINING DIRECTOR p/c with Carol at [facility], states she has received [facility] orders in the p ast and will follow up with Dr. Bob's office. TRAINING DIRECTOR provided referral and faxed Home health referral. Electronically signed: PORTILLO MCGUIRE 10/16/2019 1:16 PM PDT lan of Care - Avinash Philip, PT - 10/16/2019 11:55 AM PDT Physical Therapy Treatment Note Recommended discharge disposition: home with assist Post discharge physical therapy recommendation: home health Equipment Recommendations: none Barriers to community-based discharge None Recommended Frequency: 5 times/wk for 7 days with reassessment due by 10/16/19 Summary: Patient resting in bed, eager to DC home. Discussed DC planning, he is agreeable to HH RN/therapy. He declines needing an AD. Gait assessment reveals pt is able to ambulate without an assistive device. Pt able to independently dress as well including up and lower b rojelio dressing, as well as socks/shoes. All needs are met. PT services to DC. Pt appropriate t o return home. No DME needed (pt does have a SPC that he can use if needed). Vitals at rest in supine: HR 96, BP 144/74, SpO2 97% RA. Precautions Precautions/Limitations: falls Cognitive Assessment Mood/Behavior: cooperative, calm Orientation: oriented x 4 Arousal Level: opens eyes spontaneously Speech: clear Bed Mobility Supine to Sit, Level of Cochran: modified independent Sit to Supine, Level of Cochran: modified independent Safety Issues: decreased use of legs for bridging/pushing Transfers Sit-Stand, Level of Cochran: supervised Stand-Sit, Level of Cochran: supervised [id number], Assistive Device: none Gait Level of Cochran: supervised Assistive Device: none Distance (feet): 40 Goals Reflects last filed data and may be from multiple contributors. All Bed Mobility Goal Most Recent Value LTG Status new at 10/09/2019 1108 LTG Cochran Level modified independent at 10/09/2019 1108 LTG Assistive Device none at 10/09/2019 1108 All Transfers Goal Most Recent Value LTG Status new at 10/09/2019 1108 LTG Cochran Level modified independent at 10/09/2019 1108 LTG Assistive Device 2 wheeled walker (FWW) at 10/09/2019 1108 Gait Goal Most Recent Value LTG Status new at 10/09/2019 1108 LTG Cochran Level modified independent at 10/09/2019 1108 LTG Assistive Device 2 wheeled walker (FWW) at 10/09/2019 1108 LTG Distance (feet) 100 at 10/09/2019 1108 Stair Goal Most Recent Value LTG Status new at 10/09/2019 1108 LTG Cochran Level modified independent at 10/09/2019 1108 LTG Assistive Device 1 rail at 10/09/2019 1108 LTG Number of Stairs 3 at 10/09/2019 1108 PT Time Calculation Individual Start Time: 1048 Individual Stop Time: 1113 Individual Total Time: 25 PT Total Treatment Time: 25 lan of Celeste Smith RN - 10/16/2019 11:06 AM PDTPt ready for discharge. Ambulating well with no a ssistive devices. Nonskid socks in place. Bed in low position and locked. Celeste Gaviria RN 10/16/19 lan of Elijah Bradley RN - 10/16/2019 6:15 AM PDT Problem: Bleeding (Revascularization) Goal: Absence of Bleeding Outcome: Ongoing, progressing Bleeding has stopped, moderate amounts of serous fluid still weeping from incisions sites Problem: Skin Injury Risk Increased Goal: Skin Health and Integrity Outcome: Ongoing, progressing Dressings assessed and changed q4h, wounds cleansed and new, dry dressings replaced. Problem: Infection Goal: Infection Symptom Resolution Outcome: Ongoing, progressing Pt remains afebrile, no noted chills, N/V/D lan of Nigel Rahman RN - 10/15/2019 5:40 PM PDTProblem: B leeding (Revascularization) Goal: Absence of Bleeding Outcome: Ongoing, progressing Note: AUGUSTUS drain removed, dressings less saturated throughout shift, no s/s of acute bleed, H /H remains stable lan of Sigrid Salmeron RN - 10/14/2019 12:00 PM PDTProblem: Skin Injury Risk Increased Goal: Skin Health and Integrity Outcome: Ongoing, progressing PRN dressing changed provided d/t drainage. All incisions are healing with tasha intact. Mild drainage from incisions. Pillows used on pressure points. Pt up ambulating in the halls this shift. New pictures of incisions uploaded in the chart, per PA request. Chart check complete. Sigrid Calzada RN lan of Care - Makenzie Hunter, PT - 10/14/2019 10:05 AM PDT Physical Therapy Treatment Note Recommended discharge disposition: home with assist Post discharge physical therapy recommendation: home health Equipment Recommendations: 2 wheeled walker (FWW)(see OT recs for ADLs) Barriers to community-based discharge Lack of equipment, Home Design, and Precautions Recommended Frequency: 5 times/wk for 7 days with reassessment due by 10/16/19 Summary: Pt demonstrating marked increase in level of independence for transitional moveme nt and ambulation with ongoing postural assistance for acute pain management with poor martha manjinder stability and compensatory stabilization at transfer surface when not obtaining upright with FWW. Ongoing reduced motion of LE at surgical sites with education and return demo for LE HEP completed with patient to minimize kinematic impact on gait pattern and efficacy. Pt making good functional progress to anticipated d/c location of home with assistance. Isaias g benefit for acute care intervention with stair training to maximize d/c planning. Precautions Precautions/Limitations: falls Cognitive Assessment Mood/Behavior: calm, cooperative Bed Mobility Assistive Device: bed rails Supine to Sit, Level of Cochran: modified independent Safety Issues: decreased use of legs for bridging/pushing Impairments: ROM decreased, strength decreased Transfers Sit-Stand, Level of Cochran: stand by assist, verbal cues required Stand-Sit, Level of Cochran: stand by assist, verbal cues required [id number], Assistive Device: 2 wheeled walker (FWW), none Toilet, Level of Cochran: stand by assist, verbal cues required Toilet, Assistive Device: 2 wheeled walker (FWW), grab bars Gait Gait Comments: antalgic gait with flexed trunk posture and intermittent crouch position Level of Cochran: stand by assist, verbal cues required(verbal cues to reduce anterior translation walker frame) Assistive Device: 2 wheeled walker (FWW) Distance (feet): 125, 100, 2x15 Balance Sitting Balance: Static: good balance Sitting Balance: Dynamic: good balance Standing Balance: Static: fair balance Standing Balance: Dynamic: fair balance Goals Reflects last filed data and may be from multiple contributors. All Bed Mobility Goal Most Recent Value LTG Status new at 10/09/2019 1108 LTG Cochran Level modified independent at 10/09/2019 1108 LTG Assistive Device none at 10/09/2019 1108 All Transfers Goal Most Recent Value LTG Status new at 10/09/2019 1108 LTG Cochran Level modified independent at 10/09/2019 1108 LTG Assistive Device 2 wheeled walker (FWW) at 10/09/2019 1108 Gait Goal Most Recent Value LTG Status new at 10/09/2019 1108 LTG Cochran Level modified independent at 10/09/2019 1108 LTG Assistive Device 2 wheeled walker (FWW) at 10/09/2019 1108 LTG Distance (feet) 100 at 10/09/2019 1108 Stair Goal Most Recent Value LTG Status new at 10/09/2019 1108 LTG Cochran Level modified independent at 10/09/2019 1108 LTG Assistive Device 1 rail at 10/09/2019 1108 LTG Number of Stairs 3 at 10/09/2019 1108 PT Time Calculation Individual Start Time: 1005 Individual Stop Time: 1047 Individual Total Time: 42 PT Total Treatment Time: 42 lan of Care - Raghu Barton RN - 10/14/2019 6:42 AM PDT Problem: Adult Inpatient Plan of Care Goal: Plan of Care Review Outcome: Ongoing, progressing Plan of care reviewed with pt. All questions answered at this time. Problem: Bleeding (Revascularization) Goal: Absence of Bleeding Outcome: Ongoing, progressing No s/s of bleeding. Dressings monitored, changed (moderated amount of serous fluid). Bilat eral pedal and tibial pulses present, strong with doppler (improving). R foot > L foot (3+ pitting edema in R foot vs 1+ pitting edema in L foot). BLE elevated with pillows overnight. Pt verbalizes understand that he needs to restrict fluids, but pt is noncompliant with 1L F .R. and requests more water/ice from every staff member that enters room. Fluid restriction is clearly listed on sign outside of room. Small amount of ice chips provided throughout nig ht for pt comfort. Hourly rounding performed. No acute events overnight. All dressings changed as needed. Pt d eclined shower, but would like one later today. Chart check complete. lan of Care - Mundo Novoa, PT, DP T - 10/13/2019 10:39 AM PDT Physical Therapy Treatment Note Recommended discharge disposition: home with assist(Pt. continues to report that he will limon ve 21/09 support) Post discharge physical therapy recommendation: home health Equipment Recommendations: 2 wheeled walker (FWW) Barriers to community-based discharge Level of assistance for ADLs/mobility Recommended Frequency: 5 times/wk for 7 days with reassessment due by 10/16/19 Summary: wound vacs are out. The pt. continues to report frequent loose BMs but is much m ore agreeable to PT tx. today. He continues to report pain rated >5/10 throughout however d oes report ambulation "helped things feel better" even though pain continued to be >5/10. H e ambulated approx. 150' total with use of FWW and CGA during gait cycle. He requires Daphney for bed mobility and transfers. Gait is slow and antalgic however he was able to increase g ait speed slightly during ambulation. VSS throughout mobility progression. Precautions Precaution Comment: fall risk Precautions/Limitations: falls Cognitive Assessment Orientation: oriented x 4 Bed Mobility Supine to Sit, Level of Cochran: minimal assist (75% patient effort) Transfers Sit-Stand, Level of Cochran: minimal assist (75% patient effort) Gait Level of Cochran: minimal assist (75% patient effort) Assistive Device: 2 wheeled walker (FWW) Distance (feet): 150(4 standing rest breaks) Additional Documentation: pattern, deviations, safety, impairments Gait Pattern Analysis: swing-to gait Gait Deviations: stride length decreased, lionel decreased Safety Issues: step length decreased, weight-shifting ability decreased Balance Sitting Balance: Static: good balance Sitting Balance: Dynamic: good balance Standing Balance: Static: fair balance Standing Balance: Dynamic: fair balance Goals Reflects last filed data and may be from multiple contributors. All Bed Mobility Goal Most Recent Value LTG Status new at 10/09/2019 1108 LTG Cochran Level modified independent at 10/09/2019 1108 LTG Assistive Device none at 10/09/2019 1108 All Transfers Goal Most Recent Value LTG Status new at 10/09/2019 1108 LTG Cochran Level modified independent at 10/09/2019 1108 LTG Assistive Device 2 wheeled walker (FWW) at 10/09/2019 1108 Gait Goal Most Recent Value LTG Status new at 10/09/2019 1108 LTG Cochran Level modified independent at 10/09/2019 1108 LTG Assistive Device 2 wheeled walker (FWW) at 10/09/2019 1108 LTG Distance (feet) 100 at 10/09/2019 1108 Stair Goal Most Recent Value LTG Status new at 10/09/2019 1108 LTG Cochran Level modified independent at 10/09/2019 1108 LTG Assistive Device 1 rail at 10/09/2019 1108 LTG Number of Stairs 3 at 10/09/2019 1108 lan of Care - Archana Art RN - 10/13/2019 9:21 AM PDTPatient more pleasant and cooperative today , but refused shower, and has poor appetite. All incisions still draining copiously, needed to be changed frequently this shift d/t sundeep jarquin and stools. Bilat wound vacs removed (per Dr Arteaga). Incontinenet BMs x 6. Lomotol given x2. End of shift chart check done. Care plan note: Problem: Adult Inpatient Plan of Care Goal: Plan of Care Review Outcome: Ongoing, progressing Plan of care and daily goals discussed with patient; pt's questions answered, all care exp lained. Problem: Adult Inpatient Plan of Care Goal: Absence of Hospital-Acquired Illness or Injury Outcome: Ongoing, progressing Safe environment maintained. Problem: Adult Inpatient Plan of Care Goal: Optimal Comfort and Wellbeing Outcome: Ongoing, progressing Patient calm, pleasant and cooperative today, and appears motivated to work towards gettin g better. Problem: Fall Injury Risk Goal: Absence of Fall and Fall-Related Injury Outcome: Ongoing, progressing Fall prevention bundle implementation continued. Problem: Oral Intake Inadequate Goal: Improved Oral Intake Description: Pt will consume >75% of meals and snacks Outcome: Ongoing, progressing Patient more motivated to eat today. Will continue to encourage pt to eat and take nutriti on supplements. Problem: Bleeding (Revascularization) Goal: Absence of Bleeding Outcome: Ongoing, progressing Patient's bilat incisions still having copious amounts of serous drainage. lan of Care - Raghu Barton RN - 10/13/2019 6:47 AM PDT Problem: Adult Inpatient Plan of Care Goal: Plan of Care Review Outcome: Ongoing, progressing Plan of care reviewed. All questions answered at this time. Problem: Bleeding (Revascularization) Goal: Absence of Bleeding Outcome: Ongoing, progressing All sites monitored for bleeding. Optilocks reapplied to weeping wounds throughout night as needed (serous output). Bilateral pedal and tibial pulses present with doppler. Hourly rounding performed. Pt noncompliant with fluid restriction (pt went over his fluid r estriction but still attempted to talk phlebotomists, lab techs, or whoever who came into e room into giving him more water/ice). PRN Lomotil administered for diarrhea (dayshift had loose stool x9, nightshift had loose stool x3). Potassium replaced x2. AM Mg replaced x1. Next potassium lab draw @ 1045. Chart check complete. P DTPlan of Care - Archana Art RN - 10/12/2019 10:42 AM PDTVital signs stable. 2 units of PRBC given. Bilat pedal pulses to doppler. Bilateral upper leg incision and R ab dominal dressings still having large amount of drainage (dressings saturated and changed x3) . 120ml AUGUSTUS drain output. All output serous. Patient had 9 liquidy BMs this shift, but c-diff test negative. End of shift chart check done. Care plan note: Problem: Adult Inpatient Plan of Care Goal: Plan of Care Review Outcome: Ongoing, progressing Plan of care and daily goals discussed with patient; pt's questions answered, all care exp lained. Problem: Adult Inpatient Plan of Care Goal: Absence of Hospital-Acquired Illness or Injury Outcome: Ongoing, progressing Safe environment maintained. Problem: Adult Inpatient Plan of Care Goal: Optimal Comfort and Wellbeing Outcome: Ongoing, progressing Patient curses frequently and states he is frustrated with everything, but is cooperative, and is kind under gruff exterior. Problem: Fall Injury Risk Goal: Absence of Fall and Fall-Related Injury Outcome: Ongoing, progressing Fall prevention bundle implementation continued. Problem: Oral Intake Inadequate Goal: Improved Oral Intake Description: Pt will consume >75% of meals and snacks Outcome: Ongoing, progressing Patient has poor appetite. Will encourage pt to eat more, and at least try a couple bites of each meal tray. Problem: Bleeding (Revascularization) Goal: Absence of Bleeding Outcome: Ongoing, progressing Patient's bilat incisions still having copious amounts of serous drainage. 2 units PRBC to be given today d/t low H&H. lan of Care - Tonja Diaz RN - 10/12/2019 12:21 AM PDTPt has remained fall free during shift. Hourly round ing done and call light with in reach. Electronically signed by Tonja Abel RN at 2019 12:22 AM PDTPlan of Care - Kathie Llamas RN - 10/11/2019 5:22 PM PDT Problem: Fall Injury Risk Goal: Absence of Fall and Fall-Related Injury Outcome: Ongoing, progressing Patient calls appropriately, was up in chair for majority of day, back in bed at this time , wheels locked, call light and bed side table with personal possessions in reach. Problem: Bleeding (Revascularization) Goal: Absence of Bleeding Outcome: Ongoing, progressing Patient's removed AUGUSTUS drain sites have been very oozy, serous drainage, dressings changed f requently. L groin wound vac had 110 mL serous output, L groin AUGUSTUS drain had 110 mL serous o utput, R groin wound vac had 175 mL serosanguineous output. Wound vacs remain at 125 mmHg o f suction. Problem: Tissue Perfusion Altered (Revascularization) Goal: Effective Tissue Perfusion Outcome: Ongoing, progressing Patient's pulses are marked on bilateral feet, can be heard using doppler. Chart check complete. P DTPlan of Care - Avinash Carreon, PT - 10/11/2019 11:30 AM PDTFormatting of this note nicole ht be different from the original. Physical Therapy Treatment Note Recommended discharge disposition: home with assist Post discharge physical therapy recommendation: home health Equipment Recommendations: 2 wheeled walker (FWW) Barriers to community-based discharge Physical Impairment and Level of assistance for ADLs/mobility Recommended Frequency: 5 times/wk for 7 days with reassessment due by 10/16/19 Summary: Pt resting in the chair upon PT arrival, agreeable to participation. Pt with an i ncontinent BM. PROCESS PLANT OPERATOR and PT assisting with mobility and pericare. Pt benefits from 1+1 assist due to lines/tubes and having 2 wound vacs. He reports his pain is fairly well controlled, m ostly limited by stiffness in his LEs. Only 1 Augustus drain remains. Pt still needs min A for mob ility for safety. Gait is slow, shuffled, and antalgic. Pt is in the chair after activity. N eeds met. Vitals at rest in sitting: HR 14, BP 124/71, SpO2 95%RA, Precautions Precaution Comment: 2 wound vacs Precautions/Limitations: falls Cognitive Assessment Mood/Behavior: cooperative, anxious Orientation: oriented x 4 Arousal Level: opens eyes spontaneously Speech: clear Transfers Additional Documentation: toilet Sit-Stand, Level of Cochran: minimal assist (75% patient effort) Stand-Sit, Level of Cochran: minimal assist (75% patient effort) [id number], Assistive Device: 2 wheeled walker (FWW) Toilet, Level of Cochran: minimal assist (75% patient effort) Toilet, Assistive Device: 2 wheeled walker (FWW) Safety Issues: loses balance backward, weight-shifting ability decreased, step length decre ased, sequencing ability decreased, balance decreased during turns Impairments: ROM decreased, strength decreased, impaired balance Gait Gait Comments: reduced step length BLE, excessive trunk flexion, reduced weight bearing RLE , avoidance COG over HAN Level of Cochran: minimal assist (75% patient effort) Assistive Device: 2 wheeled walker (FWW) Distance (feet): 15x2 Goals Reflects last filed data and may be from multiple contributors. All Bed Mobility Goal Most Recent Value LTG Status new at 10/09/2019 1108 LTG Cochran Level modified independent at 10/09/2019 1108 LTG Assistive Device none at 10/09/2019 1108 All Transfers Goal Most Recent Value LTG Status new at 10/09/2019 1108 LTG Cochran Level modified independent at 10/09/2019 1108 LTG Assistive Device 2 wheeled walker (FWW) at 10/09/2019 1108 Gait Goal Most Recent Value LTG Status new at 10/09/2019 1108 LTG Cochran Level modified independent at 10/09/2019 1108 LTG Assistive Device 2 wheeled walker (FWW) at 10/09/2019 1108 LTG Distance (feet) 100 at 10/09/2019 1108 Stair Goal Most Recent Value LTG Status new at 10/09/2019 1108 LTG Cochran Level modified independent at 10/09/2019 1108 LTG Assistive Device 1 rail at 10/09/2019 1108 LTG Number of Stairs 3 at 10/09/2019 1108 PT Time Calculation Individual Start Time: 1052 Individual Stop Time: 1122 Individual Total Time: 30 PT Total Treatment Time: 30 lan of Care - Georgie Molina cia, RN - 10/11/2019 6:38 AM PDT Problem: Adult Inpatient Plan of Care Goal: Optimal Comfort and Wellbeing Outcome: Ongoing, progressing Pt's pain was well managed with PRN oxycodone per Pt. Pt reports pain level is at acceptabl e level. Appears comfortable. Problem: Oral Intake Inadequate Goal: Improved Oral Intake Description: Pt will consume >75% of meals and snacks Outcome: Ongoing, progressing Pt was frustrated at beginning of shift d/t being on clear liquid diet. Pt denied any nause a. Pt's diet was advanced. Pt ate fruit and refused to eat his sandwich. H2O intake adequate . Problem: Tissue Perfusion Altered (Revascularization) Goal: Effective Tissue Perfusion Outcome: Ongoing, progressing Pt's BLE appear normal in color and are warm to touch. Pedal pulses doppler. Pt reports bas michelle numbness to BLE. Problem: Skin Injury Risk Increased Goal: Skin Health and Integrity Outcome: Ongoing, progressing Pt does not have any signs of skin breakdown. Pt repositioned q2h and on ICU specialty bed . Hydrocolloids to BLE and RLQ abdomen changed per serous drainage noted. Surgical sites ignacio ear pink and tasha are intact. Bilateral groins with wound vac at 125 mm Hg. Left vac with 90cc of serosanguinous drainage noted. Right vac with scant amount of serous drainage noted and unable to measure. AUGUSTUS bulb drains intact and compressed X5. lan of Diana - Daniella Coleman RN - 10/10/2019 6:54 PM PDT Problem: Fall Injury Risk Goal: Absence of Fall and Fall-Related Injury 10/10/20191847 by Daniella Coleman RN Outcome: Ongoing, progressing Note: Room remain free of clutter, non-skid sock when OOB, call light and personal belongin gs within reach. Problem: Oral Intake Inadequate Goal: Improved Oral Intake Description: Pt will consume >75% of meals and snacks Outcome: Ongoing, progressing Intervention: Promote and Optimize Oral Intake Note: Oral hydration promoted. Problem: Bleeding (Revascularization) Goal: Absence of Bleeding 10/10/20191847 by Daniella Coleman RN Outcome: Ongoing, progressing Intervention: Monitor and Manage Bleeding Note: H/H trending down but no evidence of bleeding and blood pressure WNL. Wound dressings and AUGUSTUS drains monitored. Problem: Pain (Revascularization) Goal: Acceptable Pain Control 10/10/20191847 by Daniella Coleman RN Outcome: Ongoing, progressing 10/10/20191846 by Daniella Coleman RN Outcome: Ongoing, progressing Intervention: Prevent or Manage Pain Note: Pt received 15mg oxycodone q4 and one dose of 50mcg Fentanly for breakthrough. Pain h as been manageable, last pain assessment was rated 4/10. Pt has been experiencing discomfort from bodily itch; he was given benadryl PRN dose twice during this shift. lan of Diana - Kathie Yun, OT Student - 10/10/2019 3:45 PM PDTFormatting of this note might be diff erent from the original. Occupational Therapy Initial Evaluation Note Recommended discharge disposition: home with assist, other (see comments)(pending progress ) Post discharge occupational therapy recommendation: home health Equipment Recommendations: 2 wheeled walker (FWW), shower chair, contract clerk automobile, sock aide, long handled sponge, long handled shoe horn Barriers to community-based discharge Physical Impairment, Level of assistance for ADLs/mobility, Lack of equipment, and Fall ris k Planned Interventions: ADL retraining, IADL retraining, balance training, bed mobility vianney childress, cognitive retraining, fine motor coordination training, functional endurance training, patient/family education, strengthening, transfer training, discharge planning Frequency: 3 times/wk for 10 days with reassessment due by 10/20/19 Summary: Pt in bed and agreeable to OT evaluation. Pt oriented x4 and demonstrated good B UE strength and ROM. Pt completed bed mobility to sit EOB min A, STS t/f min A, stood for a minute with FWW, attempted to take a step forward and lost balance backwards and sat back on bed with assist from OT and OT student. Pt's vitals remained stable and left in bed with ne eds met at end of session. Living Environment Lives With: friend(s) Living Arrangements: mobile home Home Accessibility: stairs to enter home, stairs (1 railing present) Number of Stairs to Enter Home: 3 Number of Stairs Within Home: 0 Stair Railings at Home: outside, present on left side Living Environment Comment: BR: tub shower with grab bar, no HHSH, regular toilet, walker c ould fit in bathroom. Roomate able to assist at home. Prior Functional Level Comment: Indep in ADls/IADls. Used SPC occassionally. Plans to get a FWW before d/c home. Precautions Precaution Comment: monitor vitals, 6 AUGUSTUS, 2 wound vacs, loss of balance when standing Precautions/Limitations: falls Cognitive Assessment Cognitive Comments: Pt wanted to order a ham and cheese sandwhich. OT explained to pt that he is on a liquid diet. Pt stated he has eaten many ham and cheese snadwhiches since being a t the [facility] despite his chart saying he has been on a liquid diet. Unsure if his memory a nd recall of events is correct at this time. Orientation: oriented x 4 Impairments Found (describe specific impairments): functional endurance/activity tolerance, gait, locomotion, and balance, ROM Sensory Assessment Sensation Comments: Pt reports a little numbness to B UE hands. Vision Comments: wears reading glasses Bed Mobility Additional Documentation: supine to/from sit Assistive Device: HOB elevated, bed rails Supine to Sit, Level of Cochran: minimal assist (75% patient effort) Sit to Supine, Level of Cochran: moderate assist (50% patient effort) Safety Issues: decreased use of legs for bridging/pushing, decreased use of arms for pushin g/pulling Impairments: ROM decreased, strength decreased, postural control impaired, pain Transfers Additional Documentation: sit to/from stand Sit-Stand, Level of Cochran: minimal assist (75% patient effort) Stand-Sit, Level of Cochran: maximal assist (25% patient effort) Hco-Cyvrs-Yia, Assistive Device: 2 wheeled walker (FWW), gait belt Safety Issues: loses balance backward, weight-shifting ability decreased, step length decre ased, sequencing ability decreased, balance decreased during turns Impairments: ROM decreased, strength decreased, impaired balance ROM Comments: WFL Strength Comments: WFL. B talent sourcing specialist strength 4/5. B UE MMT 4/5 except for biceps 3+/5 Balance Sitting Balance: Static: good balance Sitting Balance: Dynamic: good balance Standing Balance: Static: poor balance Standing Balance: Dynamic: poor balance Goals Reflects last filed data and may be from multiple contributors. LB Dressing Goal Most Recent Value LTG Status new at 10/10/2019 1545 LTG Cochran Level minimum assist (75% patient effort), set up required at 10/10/2019 1545 LTG Adaptive Equipment contract clerk automobile, sock-aid at 10/10/2019 1545 Toilet Transfer Goal Most Recent Value LTG Status new at 10/10/2019 1545 LTG Cochran Level minimum assist (75% patient effort) at 10/10/2019 1545 LTG Assistive Device 2 wheeled walker (FWW), grab bars at 10/10/2019 1545 Associated attestation - Chiquita Ramirez OTR/L - 10/10/2019 5:09 PM PDTDocumentation and evaluation conducted by OTS , under the direction of the therapist cosigning below. I, the undersigning therapist, have reviewed and gone over this evaluation and/or treatment session that includes interventions and plan of care as noted below. I am directly responsible for all the treatments and interventions listed, I have reviewed this note, and I agree with the above plan of care and goals. Plan of Care - Sepideh Odonnell ARNP - 10/10/2019 12:07 PM PDTPatient evaluated for tr ansfer out of the ICU. Report was called to Dr. Pack who has graciously accepted the patient to the hospitalist service. Patient to be transferred to 9th floor per vascular dunn rgamber's request. Orders have been placed for transfer. GLEN Briggs 10/10/2019 12:08 PM PDT lan of Diana - Ramone, Mundo Powell MD - 10/10/2019 12:04 PM PDTPatient seen and examined briefly as day progress note has been made, at bedside in ICU on turnover by rigging engineer. Patient stat es he feels better, no headache, no dizziness no faintness, blood pressures and vital signs have been stable no fever. We will continue present course of treatments, and will continue to follow closely. lan of Diana - Makenzie Hunter PT - 10/10/2019 11:13 AM PDTFormatting of this note m ight be different from the original. Physical Therapy Treatment Note Recommended discharge disposition: home with assist Post discharge physical therapy recommendation: home health Equipment Recommendations: 2 wheeled walker (FWW)(see OT recs for ADLs) Barriers to community-based discharge Physical Impairment, Level of assistance for ADLs/mobility, Lack of equipment, Home Design, Pain, and Fall risk Recommended Frequency: 5 times/wk for 7 days with reassessment due by 10/16/19 Summary: Treatment intervention with emphasis for mobility progression, improved vitals st ability following positional change and activity demand this date with pt able to maintain t herapeutic SpO2 on RA and HR noted tachy with max at 140's versus previous 150's during stat ic task. Noted ongoing limitation for activity tolerance due to post op B groin pain with va scular surgeon aware, also aware of notable distal edema B LE with pedal and dorsal pulses a udible. Pt with progressive reduction for burden of transition to stance with increased repe tition and emerging ability to ambulate household distance with crouch posture due to pain a t AD. Pt anticipated to be able to progress to safe d/c to home with roommate support when m edically appropriate with ongoing acute PT intervention to facilitate normalizing gait patte rn, safety during stair negotiation and functional strength. Cognitive Assessment Mood/Behavior: calm, cooperative Bed Mobility Assistive Device: HOB elevated, bed rails Supine to Sit, Level of Cochran: minimal assist (75% patient effort) Transfers Bed-Chair, Level of Cochran: minimal assist (75% patient effort) Rwi-Djzia-Grm, Assistive Device: 2 wheeled walker (FWW), gait belt Sit-Stand, Level of Cochran: minimal assist (75% patient effort), stand by assist Stand-Sit, Level of Cochran: minimal assist (75% patient effort), stand by assist Gait Gait Comments: reduced step length BLE, excessive trunk flexion, reduced weight bearing RLE , avoidance COG over HAN Level of Cochran: minimal assist (75% patient effort), verbal cues required Assistive Device: 2 wheeled walker (FWW) Distance (feet): 12 Balance Balance Comments: retrowalking for facilitation knee extension/hip extension Sitting Balance: Static: good balance Sitting Balance: Dynamic: good balance Standing Balance: Static: fair balance Standing Balance: Dynamic: fair balance Goals Reflects last filed data and may be from multiple contributors. All Bed Mobility Goal Most Recent Value LTG Status new at 10/09/2019 1108 LTG Cochran Level modified independent at 10/09/2019 1108 LTG Assistive Device none at 10/09/2019 1108 All Transfers Goal Most Recent Value LTG Status new at 10/09/2019 1108 LTG Cochran Level modified independent at 10/09/2019 1108 LTG Assistive Device 2 wheeled walker (FWW) at 10/09/2019 1108 Gait Goal Most Recent Value LTG Status new at 10/09/2019 1108 LTG Cochran Level modified independent at 10/09/2019 1108 LTG Assistive Device 2 wheeled walker (FWW) at 10/09/2019 1108 LTG Distance (feet) 100 at 10/09/2019 1108 Stair Goal Most Recent Value LTG Status new at 10/09/2019 1108 LTG Cochran Level modified independent at 10/09/2019 1108 LTG Assistive Device 1 rail at 10/09/2019 1108 LTG Number of Stairs 3 at 10/09/2019 1108 PT Time Calculation Individual Start Time: 1113 Individual Stop Time: 1220 Individual Total Time: 67 PT Total Treatment Time: 67 lan of Viv Kelley MSW - 10/10/2019 10:10 AM PDTAttended morning rounds. Reviewed PT notes. PT is recommending home with assist and HH. Lives with roommate who reportedly plans to help care for pt after d/c. Contact Information Family Contact Information: Name: Lele Conley (Roommate) [id number] signed by PORTILLO Varner at 10/10/2019 10:13 AM PD TPlan of Moreno Tenorio RN - 10/10/2019 6:44 AM PDT Problem: Postoperative Nausea and Vomiting (Revascularization) Goal: Nausea and Vomiting Relief Outcome: Ongoing, progressing Prn antiemetics. Advance diet as able per vascular surgery. Problem: Tissue Perfusion Altered (Revascularization) Goal: Effective Tissue Perfusion Outcome: Ongoing, progressing Denies numbness/tingling. Pedal pulses per doppler. Remains off Wade. lan of Makenzie Scanlon PT - 10/09/2019 11:08 AM PDT Physical Therapy Initial Evaluation Note Recommended discharge disposition: home with assist Post discharge physical therapy recommendation: home health Equipment Recommendations: 2 wheeled walker (FWW)(see OT recs for ADLs) Barriers to community-based discharge Physical Impairment, Level of assistance for ADLs/mobility, Lack of equipment, Home Design, Precautions, Pain, and Fall risk Impairments Found (describe specific impairments): ROM, muscle performance, functional endu kenyatta/activity tolerance, gait, locomotion, and balance Planned Interventions: balance training, bed mobility training, gait training, home exercis e program, neuromuscular re-education, patient/family education, postural re-education, ROM (Range of Motion), stair training, strengthening, transfer training Recommended Frequency: 5 times/wk for 7 days with reassessment due by 10/16/19 Summary: Pt is a 59 yo M presenting POD2 femoral endarterectomy and POD1 B fem-pop bypass for PT evauluation with ongoing anticipated strength and motion limitations BLE reducing eff icacy and tolerance of transitional movements and brief duration of weight bearing. Benefit from use of FWW to unweight B LE with noted avoidance for full weight bearing through trey line versus increased hip flexion/plantar flexion BLE with fair self stabilization to uprigh t. Pt endorsing dizziness with initial mobility OOB, however unrelated to significant bp dec line. Noted significant limitations to mobility this date 2/2 post op pain despite being pre medicated for mobility intervention. Despite limitations for motion, strength and pain limi ting movement pt anticipated to be able to progress mobility skills with ongoing acute PT in tervention to allow d/c to home with roommate's support and ongoing benefit from HH services to reduce restriction of AD and DME when medically appropriate. Living Environment Lives With: friend(s) Living Arrangements: mobile home Home Accessibility: stairs to enter home, stairs (1 railing present) Number of Stairs to Enter Home: 3 Number of Stairs Within Home: 0 Stair Railings at Home: outside, present on left side Transportation Available: car, family or friend will provide Prior Functional Level Comment: Pt reporting intermittent use of SPC, mod I at baseline for mobility and independent with all ADLs/IADLs. Lives with a friend in mobile home, tub showe r with bathing completed in standing at baseline. Pt denie hx of falling. Precautions Precaution Comment: pre medicate for pain, bp monitor Precautions/Limitations: falls Cognitive Assessment Additional Documentation: mood/behavior Mood/Behavior: calm, cooperative Orientation: oriented x 4 Bed Mobility Additional Documentation: supine to/from sit Assistive Device: bed rails, HOB elevated Supine to Sit, Level of Cochran: maximal assist (25% patient effort) Safety Issues: decreased use of legs for bridging/pushing, impaired trunk control for bed m obility Impairments: pain, strength decreased, ROM decreased Transfers Additional Documentation: sit to/from stand, bed to/from chair Bed-Chair, Level of Cochran: moderate assist (50% patient effort) Cdz-Syeop-Gdw, Assistive Device: 2 wheeled walker (FWW) Sit-Stand, Level of Cochran: minimal assist (75% patient effort) Stand-Sit, Level of Cochran: minimal assist (75% patient effort) Wwz-Fnzii-Pre, Assistive Device: 2 wheeled walker (FWW) Safety Issues: weight-shifting ability decreased, loses balance backward, step length decre ased, balance decreased during turns Impairments: ROM decreased, strength decreased, impaired balance, pain Muscle Tone Assessment Muscle Tone Assessment: within normal limits Sensory Assessment Sensation Comments: Pt describes baseline distal numbness to L knee. Endorsing post op burn ing sensation to saddle region, RN aware. Range of Motion ROM Comments: BUE WFL, limitations B knee flexion/extension 2/2 post op pain, noted edema Strength Strength Comments: BUE WFL L LE Strength: MMT ankle DF 3+/5, PF 4/5 R LE Strength: MMT ankle DF 4/5, PF 4/5 Trunk strength: good Balance Sitting Balance: Static: good balance Sitting Balance: Dynamic: good balance Standing Balance: Static: poor balance Standing Balance: Dynamic: poor balance Goals Reflects last filed data and may be from multiple contributors. All Bed Mobility Goal Most Recent Value LTG Status new at 10/09/2019 1108 LTG Cochran Level modified independent at 10/09/2019 1108 LTG Assistive Device none at 10/09/2019 1108 All Transfers Goal Most Recent Value LTG Status new at 10/09/2019 1108 LTG Cochran Level modified independent at 10/09/2019 1108 LTG Assistive Device 2 wheeled walker (FWW) at 10/09/2019 1108 Gait Goal Most Recent Value LTG Status new at 10/09/2019 1108 LTG Cochran Level modified independent at 10/09/2019 1108 LTG Assistive Device 2 wheeled walker (FWW) at 10/09/2019 1108 LTG Distance (feet) 100 at 10/09/2019 1108 Stair Goal Most Recent Value LTG Status new at 10/09/2019 1108 LTG Cochran Level modified independent at 10/09/2019 1108 LTG Assistive Device 1 rail at 10/09/2019 1108 LTG Number of Stairs 3 at 10/09/2019 1108 lan of Care - Tyesha Holt RD - 10/09/2019 10:36 AM PDT NUTRITION NOTE Summary Moderate risk follow-up. Attended morning rounds. Pt s/p thrombectomy of femoral to femoral artery bypass, BLE angiogram, BL femoral to popliteal artery bypass on 10/07. Per RN, diet wi ll be advanced to clears today. Nutrition Intake Current active diet order is: Diet Diet NPO; strict NPO; Effective Now Nourishments: pt declined supplements at initial visit Medications NS @ 50 mL/hr Nutrition-Focused Physical Findings Extremities, Muscles and Bones: +2 BUE edema Digestive System (Mouth to Rectum): last BM 10/06 Skin: surgical incisions, R cheek wound Anthropometrics Current Weight: 59.7 kg (131 lb 9.8 oz) Admit Weight: 54.3 kg (119 lb 11.2 oz) Biochemical Data, Medical Test, and Procedures Recent Labs 10/09/19 0510 NA 129* K 3.9 GLU 110* BUN 14 CREA 1.19 PHOS 4.0 MG 1.7 Estimated Energy Needs Energy Calorie Requirements: 0287-4336(28-32 kcal/kg per 54.3 kg admit wt ) Estimated Protein Needs Range Gm Protein (gm): 65-81(1.2-1.5 g/kg per 54.3 kg admit wt ) Nutrition Diagnosis Inadequate oral intake related to decreased ability to consume sufficient energy and protei n as evidenced by 81% IBW Recommendations ADAT to general to optimize PO intake Encourage intake of nutrient-dense, high protein foods Oral nutrition supplements can be provided if patient agreeable Nutritional Risk Required Follow Up: (8/15 M) Tyesha Dove RD 10/09/2019 10:37 AM PDT Problem: Oral Intake Inadequate Goal: Improved Oral Intake Description: Pt will consume >75% of meals and snacks Outcome: Ongoing, progressing lan of Care - Daniella Ambrocio RN - 10/09/2019 10:24 AM PDT Problem: Adult Inpatient Plan of Care Goal: Rounds/Family Conference Outcome: Ongoing, progressing Flowsheets (Taken 10/09/2019 1024) Participants: catalytic case operator dietitian/nutrition services advanced practice nurse nursing pharmacy provider Note: Plan is to transfer out if pt remains off wade by noon. Problem: Fall Injury Risk Goal: Absence of Fall and Fall-Related Injury Outcome: Ongoing, progressing Intervention: Promote Injury-Free Environment Note: Pt room remains clutter free, personal belongings and call light within reach. Problem: Oral Intake Inadequate Goal: Improved Oral Intake Description: Pt will consume >70% of meals and snacks Outcome: Ongoing, progressing Intervention: Promote and Optimize Oral Intake Note: Pt started on clear liquid diet. Problem: Bleeding (Revascularization) Goal: Absence of Bleeding Outcome: Ongoing, progressing Intervention: Monitor and Manage Bleeding Flowsheets (Taken 10/09/2019 1024) Bleeding Precautions: blood pressure closely monitored Bleeding Management: dressing monitored Note: No evidence of bleeding. Will continue to monitor. Problem: Pain (Revascularization) Goal: Acceptable Pain Control Outcome: Ongoing, not progressing Intervention: Prevent or Manage Pain Note: Pain has been manageable per pt; pain rated between 3-5/10 with pain location at hip and groin. Pt given a lower dose of oxycodone - 5mg instead of 15mg to manage his pain. Will continue to monitor. Problem: Skin Injury Risk Increased Goal: Skin Health and Integrity Intervention: Promote and Optimize Oral Intake Note: Pt started on clear liquid diet. lan of [facility] Viv Santos MSW - 10/09/2019 9:44 AM PDTAttended morning rounds. Pt transferred to ICU post -op for repair of thrombosed fem-fem artery bypass. Progressing. Await PT to julissa and alissa tinajero. Has no PCP per CM note and FS. Insurance is [facility]. lan of Urszula Viramontes RN - 10/09/2019 8:02 AM PDTProblem: Adult Inpatient Plan of Care Goal: Optimal Comfort and Wellbeing Outcome: Ongoing, progressing Pt was given PRN oxycodone x2, PRN fentanyl x1 and PRN dilaudid x1 to manage his pain throu ghout the night. Problem: Postoperative Nausea and Vomiting (Revascularization) Goal: Nausea and Vomiting Relief Outcome: Ongoing, progressing Pt required PRN zofran and phenergan for nausea control. Pt experienced dry-heaving, howeve r it did not result in pt having emesis. Problem: Tissue Perfusion Altered (Revascularization) Goal: Effective Tissue Perfusion Outcome: Ongoing, progressing Pt was on wade at 30 mcg to maintain a SBP >90 and a MAP >65. Problem: Skin Injury Risk Increased Goal: Skin Health and Integrity Outcome: Ongoing, progressing Pt refused re-positioning throughout the night. Pt was educated regarding the importance of being repositioned, however he stated he was not able to tolerate turns related to having p ain. Urszula RN. reatme nt Amanda Shah RN - 10/08/2019 7:52 PM PDT12 hr chart check complete Electronic ally signed by Amanda Tim RN at 10/08/2019 7:53 PM PDTTreatment Amanda Shah RN - 10/08/2019 5:00 PM PDTPt responded to IVF bolus. Nurse held IV pain meds due to hypo tension. Pt has minimal pain. Labs sent H/H is stable/ Nurse will wean off Wade. Electronical ly signed by Amanda Tim RN at 10/08/2019 7:52 PM PDTBrief Op Note - Magdiel Arteaga MD - 10/08/2019 2:31 PM PDT BRIEF OPERATIVE NOTE [facility] Pt. Name/Age/: Jairo Theodore 59 y.o. 1960 Med. Record Number: [id number] Date of admission: 10/03/2019 Date of Operation/Procedure: 10/08/2019 Preoperative Diagnosis: 1. Thrombosed femoral to femoral artery bypass 2. 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 Procedure(s): THROMBECTOMY / EMBOLECTOMY of fem fem bypass BILATERAL BYPASS GRAFT FEMORAL-POPLITEAL WITH 6 MM PTFE ANGIOGRAM - EXTREMITY BILATERAL ([id number]) Operative Findings: Thrombosed femoral to femoral artery bypass without evidence of techni mago failure. Flow re-established and a lower extremity angiogram completed which showed poo r outflow of the left lower extremity. After bilat fem-pop bypass patient had palpable PT p ulses bilaterally. Wound Closure: Primary closure Evidence of infection: No infection noted. Estimated Blood Loss: 200-400mL IV Fluids: refer to anesthesia record Blood Transfusion: 2units PRBC Drains: Beny Almeida Drain/Device Site 10/07/19 1530 #1 Left gravity (Active) Insertion Site Appearance no hematoma;clean and dry 10/08/19 0315 Insertion Site Care dressing intact 10/07/19 1930 Drainage Characteristics/Odor sanguineous 10/08/19 0315 Drainage Amount small 10/08/19 0315 Output (mL) 10 10/08/19 0630 Drain/Device Site 10/07/19 1532 #3 Right gravity (Active) Insertion Site Appearance no hematoma;clean and dry 10/08/19 0315 Insertion Site Care dressing intact 10/07/19 1930 Drainage Characteristics/Odor sanguineous 10/08/19 0315 Drainage Amount small 10/08/19 0315 Output (mL) 10 10/08/19 0630 Drain/Device Site 10/07/19 1534 #2 Right gravity (Active) Insertion Site Appearance no hematoma;clean and dry 10/08/19 0315 Insertion Site Care dressing intact 10/07/19 1930 Drainage Characteristics/Odor sanguineous 10/08/19 0315 Drainage Amount small 10/08/19 0315 Output (mL) 10 10/08/19 0630 Drain/Device Site Right anterior thigh (Active) Drain/Device Site 10/08/19 1344 #2 other (see comments) anterior thigh (Active) Specimen (s): * No specimens in log * Implants: Implant Name Type Inv. Item Serial No. Correspondence Clerk Lot No. LRB No. Used Action GRAFT VAS PROPATEN 6-80MM - [id number] Graft GRAFT VAS PROPATEN 6-80MM [id number] [facility] [place] 1 Implanted GRAFT VAS PROPATEN 6-80MM - [id number] Graft GRAFT VAS PROPATEN 6-80MM [id number] [facility] [place] 1 Implanted Counts: Instrument, sponge, and needle counts were correct prior to closure and at the con clusion of the case. Complications: None Disposition: The patient was taken to PACU Immediate Post-Operative Condition: Stable Electronically signed by: Magdiel Arteaga MD, 10/08/2019, 2:31 PM PDT p Note - Magdiel Arteaga MD - 10/08/2019 10 :06 AM PDT [facility] OPERATIVE REPORT PATIENT NAME: Jairo Theodore AGE: 59 y.o. TODAY'S DATE: 10/09/2019 Surgeon: Surgeon(s): Magdiel Arteaga MD Surgical Assists: Maicol Abel PA-C (JUICE was required to help with positioning, prepping an d draping, exposure and closure). Anesthesiologist: No responsible provider has been recorded for the case. Anesthesia: General Pre-op Diagnosis: 1. Thrombosed right to left femoral to femoral artery bypass 2. Peripheral artery disease 3. Left lower extremity critical limb ischemia 4. Status post the following procedures: -Right retroperitoneal exposure of right aortobifemoral limb -Repair of large right groin pseudoaneurysm with interposition dacron graft -Right common femoral endarterectomy with patch angioplasty -Left common femoral endarterectomy -Right to left femoral to femoral artery bypass with 8 mm ringed PTFE graft -Modifier 25 for bilateral re-do groin exposures -Right groin angiogram Post-op Diagnosis: Same Procedures: 1. Thrombectomy of femoral to femoral artery bypass 2. Bilateral lower extremity angiogram 3. Bilateral femoral to popliteal artery bypass with 6 mm ringed PTFE Indications: Mr. Theodore is a 59-year-old gentleman with a past medical history significant f or an aortobifem bypass and done several years ago. Patient subsequently was noted to have an occluded left aortobifem limb. He then had undergone a endovascular aorto uni-graft of t he right aortobifem. Patient presented to our facility after being noted to have a very lar ge pulsatile right groin mass. 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 Patient had no evidence of recent illness or infection. Patient was taken to the operating room 1 day ago and underwent repair of the right pseudoaneurysm, bilateral femoral endarterectomies, and f emoral to femoral artery bypass. On exam this morning the patient was noted to have no puls e in his femoral to femoral artery bypass. He was also noted to have a very faint Doppler s ignal in his left foot with worsening pain. Therefore the decision was made to take the pat ient back to the operating room for intervention. I reviewed the risks, benefits, and alter natives to the procedure. The patient wished to proceed. Consent was obtained prior to the procedure. Findings: bilateral SFA occlusion. Poor outflow in left lower extremity which was likely r michelle for fem-fem thrombosis. Palpable PT bilaterally at conclusion. Estimated Blood Loss: 300 mL Transfused: Yes Complications: None apparent Technique/Procedure Description: The patient was brought to the operating room and placed i n the supine position. General endotracheal anesthesia was induced and maintained uneventfu lly throughout the case. The patient's abdomen and bilateral lower extremities were prepped and draped in the usual sterile fashion. A timeout was held verifying patient, procedure t o be performed, and consent. We began the procedure by reopening the patient's left groin i ncision. There was no appreciable pulse in the femoral to femoral artery bypass. Using a # 11 blade a transverse incision was made in the moncada of the left bypass. There was a visible clot. Using a #4 Alida catheter this was passed and a thrombectomy was performed of the femoral to femoral artery bypass. After several passes brisk inflow was reestablished. No further clot was which relieved on the final passing of the Alida catheter. The #4 Fogart y was then passed down the superficial femoral artery with no return of thrombus. There was a small amount of backbleeding from the SFA. Using a #3 Alida catheter a thrombectomy of the profunda femoris was performed. The first pass retrieved a small amount of thrombus. The Alida was passed again twice more without retrieval of clot and good strong backbleedi ng from the profunda. The graftotomy was then closed with interrupted 6-0 Prolene sutures. Using a micropuncture needle the moncada of the graft was accessed. A wire was advanced and t he femoral to femoral artery bypass and a micropuncture sheath was placed. Through the micr opuncture sheath and angiogram was performed of the left lower extremity. Angiography demon strated poor outflow from the extremity. The profunda appeared patent however diseased. Th e SFA appeared occluded with reconstitution of the above-knee popliteal artery. There looke d to be at least one main tibial vessel however the imaging quality was not ideal. Using a Kumpe catheter and angiogram was done of the right lower extremity. This demonstrated a pat ent profunda femoris artery. The SFA appeared to be occluded with reconstitution of the abo ve-knee popliteal artery. There looked to be three-vessel runoff proximally. Given the ang iogram findings I suspected that the femoral to femoral artery bypass occluded due to poor l eft lower extremity outflow. Therefore I made the decision to proceed with a left femoral t o popliteal artery bypass. Given the SFA occlusion and the extensive reconstruction of the right groin I elected to also perform a right femoral to popliteal artery bypass given the d ifficulty returning to the right groin. I introduced to 6 mm ringed PTFE graft to the field . I then turned my attention to making a medial incision just above the knee. This was car ried down with electrocautery. Fascia was incised. The popliteal fossa was entered and the popliteal artery was identified and freed from surrounding tissues. Vesseloops were then p laced proximally and distally. The artery was small but did not appear to have significant disease. After doing this in the left extremity I then turned my attention to the right low er extremity and again made a medial incision just above the knee. This was carried down wi th electrocautery. Fascia was incised. The popliteal fossa was entered and the popliteal a rtery was identified and encircled with Vesseloops proximally and distally. Then using the Azeb tunneler I tunneled a 6 mm ringed PTFE graft in both legs. I first performed the fe moral to popliteal artery bypass in the left lower extremity. Clamps were applied to the pr ofunda, SFA and the femorofemoral bypass. Using a #11 blade a graftotomy was made in the ho od of the femorofemoral bypass. Using 2 CV 6 [place]-Jamie sutures the 6 mm bypass was anastomos ed to the moncada of the left femoral to femoral artery bypass in a end-to-side fashion. Prior to completing the anastomosis the vessels were flushed with heparinized saline there was ex cellent backbleeding and inflow appreciated. The anastomosis was completed and flow was est ablished through the bypass graft. A clamp was then applied to the proximal femoral to abov e-knee popliteal artery bypass. I then turned my attention to the popliteal artery anastomo sis. The clamps were applied to the proximal and distal above-knee popliteal artery. Using a #11 blade a arteriotomy was made. This was extended with the Roberts scissors. The vessel appeared to be healthy with good backbleeding. The PTFE graft was cut to size. And the an astomosis was created with 2 CV 6 [place]-Jamie sutures. Prior to completing the anastomosis the arteries were flushed copiously with heparinized saline. There was good inflow and backble eding from the distal popliteal artery. The anastomosis was completed and flow was reestabl ished to the left lower extremity. Patient was noted to have a palpable posterior tibial ar re after completion of the bypass which augmented nicely. Patient also was noted to have a dorsalis pedis Doppler signal. After completing the bypass in the left lower extremity I turned my attention to the right lower extremity and repeated the steps creating the right l ower extremity femoral to above-knee popliteal artery bypass. Proximally the bypass origina daniela from the profunda femoris artery on the right. The above-knee popliteal artery also ignacio eared healthy on the right with no significant atherosclerotic disease. There was excellent backbleeding from the distal popliteal artery. Once flow was reestablished through the rig ht femoral to above-knee popliteal artery bypass there was a palpable posterior tibial pulse . Patient was noted to have a good anterior tibial Doppler signal as well. All wounds were copiously irrigated with an antibiotic solution. Hemostasis was achieved. 7 [place] drains were placed in both groins and both lower extremity incisions. Drains were brought out thr ough separate stab incisions and secured with a 3-0 nylon suture. The groin incisions were then closed in layers. The deep layers were closed with a 2-0 Vicryl followed by 3-0 Vicryl . The skin was reapproximated with tasha. Bilateral Tierney skin negative pressure dres sings were placed on bilateral groins. The lower extremity incisions were closed in layers first with a 3-0 Vicryl followed by tasha to reapproximate the skin. Sterile dressings we re applied to bilateral lower extremity incisions. The patient tolerated the procedure well . The patient received 2 units of PRBCs during the case. The patient was awakened, and ext ubated in the operating room. The patient was transferred to the recovery area in stable co ndition. All counts were correct at the conclusion of the case. Magdiel Arteaga MD Vascular Surgery Dictation software, [employer], used which may contain error for similar sounding words even af ter review. Personal communication requested for any clarification. Electronically signed by: Magdiel Arteaga MD, 10/09/2019 10:06 AM PDT [facility] lan of Care - Aggie Hayden RN - 10/08/2019 6:44 AM PDT Problem: Adult Inpatient Plan of Care Goal: Plan of Care Review Outcome: Ongoing, progressing Note: Plan of care reviewed with pt. Questions encouraged and answered. All care explained. Problem: Fall Injury Risk Goal: Absence of Fall and Fall-Related Injury Outcome: Ongoing, progressing Note: Fall prevention bundle maintained. Problem: Bleeding (Revascularization) Goal: Absence of Bleeding Outcome: Ongoing, progressing Note: Left groin, right abdomen, and right groin dressing sites are clean, dry, and intact. No signs of bleeding noted. Left Augustus drain put out 95ml, R abd 110ml, and R groin put out 80 ml. Problem: Pain (Revascularization) Goal: Acceptable Pain Control Outcome: Ongoing, progressing Note: Pt states pain persistently at 10/10. PRN pain meds given, see MAR. Problem: Postoperative Nausea and Vomiting (Revascularization) Goal: Nausea and Vomiting Relief Outcome: Ongoing, progressing Note: Pt c/o nausea and vomiting. PRN zofran given with relief. Problem: Tissue Perfusion Altered (Revascularization) Goal: Effective Tissue Perfusion Outcome: Ongoing, progressing Note: Pedal pulses continue to be absent; however, post tib pulses are dopplerable. Feet ar e cool to touch. VS stable. On RA. Pt weaned off Wade gtt at 0149. Post SBPs 110-120s. Laguerre UO 500ml. Aggie Hayden RN p Note - Edgardo Arteaga MD - 10/07/2019 7:00 PM PDT [facility] OPERATIVE REPORT PATIENT NAME: Jairo Theodore AGE: 59 y.o. TODAY'S DATE: 10/09/2019 Surgeon: Surgeon(s): Magdiel Arteaga MD Surgical Assists: Maicol Abel PA-C (JUICE was required to help with positioning, prepping an d draping, exposure and closure). Anesthesiologist: No responsible provider has been recorded for the case. Anesthesia: General Pre-op Diagnosis: 1. Peripheral arterial disease 2. Right groin pseudoaneurysm of aortobifemoral bypass 3. Left lower extremity critical limb ischemia Post-op Diagnosis: Same Procedures: 1. Right retroperitoneal exposure of right aortobifemoral limb 2. Repair of large right groin pseudoaneurysm with interposition dacron graft 3. Right common femoral endarterectomy with patch angioplasty 4. Left common femoral endarterectomy 5. Right to left femoral to femoral artery bypass with 8 mm ringed PTFE graft 6. Modifier 25 for bilateral re-do groin exposures 7. Right groin angiogram Indications: See preoperative history and physical Findings: Extensive scar tissue in bilateral groins. The right groin had complete disrupt ion of the aortobifemoral limb anastomosis. There was a disruption of the moncada of the limb as well. Bilateral SFA with disease. Estimated Blood Loss: 1000 ml Transfused: Yes Complications: None apparent Technique/Procedure Description: The patient was brought to the operating room and placed i n the supine position. General endotracheal anesthesia was induced uneventfully and maintai linnette throughout the case. Preoperative antibiotics were delivered. The patient's abdomen an d bilateral groins were prepped and draped in the usual sterile fashion. A timeout was held verifying patient, procedure to be performed, and consent. We began the procedure by jagruti cruz a vertical incision in the lower right groin and upper thigh. The incision was carried do wn with electrocautery. The sheath was incised and the superficial femoral artery was ident ified. The superficial femoral artery appeared small and sclerotic. It was freed from it s urrounding tissues and encircled with a vessel loop. We next identified the patient's profu nda femoris artery which appeared quite a bit larger. This was freed from surrounding tissu es and encircled with a vessel loop. After gaining inferior control we then accessed the co mmon femoral artery with a micropuncture needle. A wire was advanced and a micropuncture sh eath was placed. An angiogram of the right common femoral and aortobifem limb was completed however we are unable to fully identify the origin of the aortobifem graft. The angiogram of the right iliac and groin area showed just the a large pseudoaneurysm. Through the micro puncture sheath we placed a Glidewire and attempted to gain access to the limb of the aorto bifemoral bypass. The micropuncture sheath was then exchanged for a short Kumpe catheter. Using a Glidewire catheter and we are still unable to select out the limb of the aortobifem. The wire tract along in the pseudoaneurysm into the lower parts of the pelvis. We then ad vanced a wire and placed a 7 Mexican sheath. We again attempted to select out the limb of th e aortobifem bypass but were unsuccessful. The sheath was removed and a pursestring stitch was placed for hemostasis. At this point we elected to proceed with a right retroperitoneal exposure. A vertical incision was made in the right lower quadrant of the abdomen just lat eral to the rectus abdominal muscle. The fascia was incised sharply. The peritoneum was id entified and freed from its surrounding attachments with blunt dissection. The abdominal co ntents were retracted medially and superiorly. The Bookwalter retraction system was then se t up. We identified the right limb of the old aortobifem bypass graft which had dense adher ed tissue surrounding it. Using blunt and sharp dissection we are able to free a portion of the bypass and encircled it with a umbilical tape. At this point gauze was placed into thi s wound and I turned my attention to exposing the left groin. In an vertical incision was m meenakshi along the left groin. This incision was carried down with electrocautery. Using sharp dissection we were able to identify the old aortobifemoral bypass which was near the inguina l ligament. We are able to then dissect out the common femoral, superficial femoral, and pr ofunda femoris arteries. The superficial femoral artery was quite small sclerotic with no a ppreciable pulse within it. There was a weak pulse within the profunda femoris artery. The left groin had extensive scar tissue in required extra time for dissection. After encircli ng the vessels with Vesseloops and a moist gauze was placed in the groin and then I turned m y attention to dissecting out the right groin pseudoaneurysm. The patient was given systemi c heparin. After a period of 3 minutes clamps were applied to the limb of the right aortobi fem bypass, profunda, and superficial femoral arteries. I then extended the right vertical groin incision up to the level of the inguinal ligament. This was carried down with electro cautery. The capsule of the pseudoaneurysm was identified and was quite large. Using sharp dissection the pseudoaneurysm was opened. There was some inflow from large circumflex vess els on the external iliac artery. After controlling this with further dissection the pseudo aneurysm was resected back. There was complete disruption of the old aortobifem anastomosis . There was also a circular disruption on the moncada of the bypass graft which was likely due to the previous access years ago from the aorto uni-endograft. The common femoral artery w as quite disrupted with a large amount of tissue damage. This area was resected back. The groin dissection was quite difficult given the large amount of scar tissue and disruption re lated to the pseudoaneurysm. The old aortobifem graft did not appear to have any evidence o f infection and looked to be well incorporated by the tissue. Therefore the disrupted area was sharply debrided back. We obtained a healthy part of graft to which we could sew a new anastomosis on 2. Prior to doing this a right common femoral endarterectomy was performed w ith a [place] elevator. There was good backbleeding from the profunda femoris artery. The re did not appear to be good backbleeding from the superficial femoral artery however there was some present. After doing the endarterectomy I then proceeded to patch the right common femoral artery with a piece of Dacron graft. This was completed with two 5-0 Prolene sutur es. After completing the anastomosis using a #11 blade a graftotomy was made. This was ext ended with the Roberts scissors. I then introduced a new piece of 8 mm dacron graft. This wa s then anastomosed to the proximal piece of remaining graft from the aorto bifemoral bypass using 5-0 Prolene sutures. After completing the anastomosis the clamp on the proximal limb was released and there was excellent inflow through this graft. The graft was then cut to s ize and this was anastomosed to the new right common femoral artery patch using two 5-0 Prol leeroy sutures. Prior to completing the anastomosis the vessel was flushed with copious amount s of heparinized saline. The profunda had excellent backbleeding there again was some backb leeding from the superficial femoral artery. The anastomosis was completed and flow was ree stablished to the patient's right lower extremity. There was an excellent signal in the pro sandy femoris artery at the conclusion. There was a weak signal in the superficial femoral artery. The proximal dacron bypass had an excellent pulse. Using an aortic clamp a tunnel was made suprapubic for the femorofemoral bypass. I then passed a 8 mm ringed PTFE graft fr om the right to the left groin. A clamp was then placed on the new dacryon bypass as well a s the profunda and SFA. Using a #11 blade a graftotomy was made in the moncada of the new dacr yon interposition graft. The PTFE graft was cut to size. And then a end to side anastomosi s was created using two 6-0 Prolene sutures. After completing the anastomosis the clamps we re released and there was excellent inflow through the femorofemoral bypass. Clamps were re applied after flushing the graft with heparinized saline. I then turned my attention to the patient's left groin. Clamps were applied to the profunda and SFA. No proximal clamps wer e applied given known occlusion of that limb. Using a #11 blade a graftotomy was made in th e old aortobifem moncada. This was extended with Roberts scissors. There was no appreciable prashanth kbleeding from the profunda after releasing the clamp. It looked to be a large amount of in timal hyperplasia which had occluded the proximal profunda. Therefore a left common femoral endarterectomy was performed using the [place] elevator. After performing the endarterect carlyle there was brisk backbleeding from the profunda and some backbleeding from a small sclero tic superficial femoral artery. After performing the endarterectomy I cut the PTFE graft an d use this for the patch. Using two 6-0 Prolene sutures the PTFE graft was anastomosed in a end to side fashion to the common femoral artery which extended onto the superficial femora l artery. Prior to completing the anastomosis all vessels were allowed to backbleed and flu shed. There was excellent inflow through the femorofemoral bypass. The anastomosis was com pleted and flow was established into the patient's left lower extremity. There was a good s ignal in the profunda and a weak signal in the superficial femoral artery at the conclusion of the anastomosis. Then using the Doppler we noticed a PT signal in bilateral lower extrem ities. This point all wounds were copiously irrigated. Hemostasis was achieved. A 19 Fren ch round Deny drain was placed in the right retroperitoneal space and brought out through a separate stab incision. The drain was secured with a 3-0 nylon suture. The abdominal woun d was then closed in layers. The fascia was closed with 1-0 non-looped PDS sutures. Subcut aneous tissue was closed with a 3-0 Vicryl. Limestone were used to close the skin. I then tu rned my attention to closing the groin wounds. The groin wounds were copiously irrigated. There was good hemostasis. 7 Mexican flat AUGUSTUS drains were placed in both the groin wound beds . These were brought out through separate stab incisions. These were secured with 3-0 nylo n sutures. The wound were closed in layers first with a 2-0 Vicryl followed by 3-0 Vicryl f ollowed by tasha to reapproximate the skin. Sterile dressings were applied to all incisio ns. The patient tolerated the procedure well. The patient did receive 2 units of PRBCs dur ing the case. The patient was awakened and extubated in the operating room. The patient wa s transferred to the recovery area in stable condition. Magdiel Arteaga MD Vascular Surgery Dictation software, [employer], used which may contain error for similar sounding words even af ter review. Personal communication requested for any clarification. Electronically signed by: Magdiel Arteaga MD, 10/09/2019 9:28 AM PDT [facility] rief Op Note - Magdiel Arteaga MD - 10/07/2019 4:30 PM PDTFormatting of this note might be different from the or iginal. BRIEF OPERATIVE NOTE [facility] Pt. Name/Age/: Jairo Theodore 59 y.o. 1960 Med. Record Number: [id number] Date of admission: 10/03/2019 Date of Operation/Procedure: 10/07/2019 Preoperative Diagnosis: 1. Large right groin pseudoaneurysm 2. Peripheral arterial disease Postoperative Diagnosis: * Pseudoaneurysm (HCC) [I72.9] Surgeon: Magdiel Arteaga MD Recreational Programs Director: Maicol Abel PA-C Anesthesia Provider(s): Anesthesiologist: Rudolph Lowery MD BAKERY SALES CLERK: Neville Rush CRNA Anesthesia Type: General Procedure(s): 1. Repair of right femoral limb of axillary bifemoral bypass with interposition dacron pk t 2. Right femoral endarterectomy with patch angioplasty 3. Left femoral endarterectomy 4. Right to left femoral to femoral artery bypass with 8 mm PTFE Operative Findings: Large pseudoaneurysm of right axillary bifemoral bypass limb. PT sign als bilaterally. Wound Closure: Primary closure Evidence of infection: No infection noted. Estimated Blood Loss: 800-1000mL IV Fluids: refer to anesthesia record Blood Transfusion: 2 units PRBC Drains: 19F deny in right retroperitoneum, 7F AUGUSTUS in bilateral groins Drain/Device Site 10/07/19 1530 #1 Left gravity (Active) Drain/Device Site 10/07/19 1531 Right gravity (Active) Drain/Device Site 10/07/19 1532 #3 Right gravity (Active) Drain/Device Site 10/07/19 1534 #2 Right gravity (Active) Specimen (s): ID Type Source Tests Collected by Time Destination A : aortic limb of aortic by fem Tissue Leg, Right SURGICAL PATHOLOGY EXAM Alissa Marrufo 10/07/2019 1427 Implants: Implant Name Type Inv. Item Serial No. Correspondence Clerk Lot No. LRB No. Used Action GRAFT GORE PROPATEN [id number] - [id number] Graft GRAFT GORE PROPATEN [id number] WL GORE - WLGO NA Right 1 Implanted GRAFT HEMGRD KNIT [id number] - [id number] Graft GRAFT HEMGRD KNIT [id number] [employer] SALES - MAQU [id number] Right 1 Implanted Counts: Instrument, sponge, and needle counts were correct prior to closure and at the con clusion of the case. Complications: None Disposition: The patient was taken to PACU Immediate Post-Operative Condition: Stable Electronically signed by: Magdiel Arteaga MD, 10/07/2019, 4:31 PM PDT lan of Asia Alves RN - 10/07/19 20 6:50 AM PDTUneventful noc, up to the BR several times, VSS with one SBP in 170s recheck [id number]. Report given to preop nurse and 0600IVPB administered pror to leaving floor 24 hour chart check reviewed. Audit completed. Asia Snow RN Problem: Fall Injury Risk Goal: Absence of Fall and Fall-Related Injury Outcome: Ongoing, progressing Note: Ensure pt free of falls with frequent rounding, call light at bedside and clear walk pathways lan of Edgardo Carmichael RN - 10/06/2019 5:32 PM PDTPt procedure rescheduled for tomorrow morning. Pt place d on general diet and to resume NPO status at midnight. Morning meds held for surgery. No ch dane from morning assessment, vital signs stable. End of shift review complete. lan of Ian Carmichael RN - 10/06/2019 2:47 PM PDTCalled PACU for procedure u pdate, Pt scheduled for procedure at 1300 and still in room, Pt rescheduled for 1500 due to add-ons. lan of Emily Quick RN - 10/06/2019 1:19 PM PDTCare Management Follow-Up Readmission Risk: Medium Current Discharge Plan Anticipated Discharge Disposition: home Expected DC Date: 10/12/2019 Barriers to Discharge: none Steps Taken Toward Discharge: Initial assessment completed. Next Steps: CM to follow for discharge planning. Community Support Services Current Outpt/Agency/Support Groups: none Discharge Transportation Transportation Needs: family or friend will provide Notes:Per daily rounds, pt will have surgery today and will need to remain inpatient for 5 days post op. Pts needs will be dependent upon medical stability and PT recommendations. Electronically signed: EMILY CHRISTIANSON RN 10/06/2019 1:19 PM PDT lan of Ian Carmichael RN - 10/06/2019 1:13 PM PDTPt pre-procedure report given. Pt consent, blood ban d, and blood consent verified. Pt last voided at 1314, saline locked and ready for transport . lan of Diamond Guerrero RN - 10/06/2019 12:29 PM PDT Problem: Fall Injury Risk Goal: Absence of Fall and Fall-Related Injury Outcome: Ongoing, progressing Intervention: Identify and Manage Contributors to Fall Injury Risk Flowsheets (Taken 10/05/20192019 by Candace Manriquez, HARRISON) Self-Care Promotion: independence encouraged Note: Patient has been injury free while in the hospital. Patient has his call light with i n reach lan of Candace Azul RN - 10/06/2019 6:15 AM PDTProblem: Adult Inpatient Plan of Care Goal: Plan of Care Review Outcome: Ongoing, progressing Problem: Fall Injury Risk Goal: Absence of Fall and Fall-Related Injury Outcome: Ongoing, progressing End of shift note: Patient has been NPO since midnight. No acute changes to initial assessment overnight. Chart review and 24 hour chart check complete. lan of Zuleyka Olivier RN - 10/05/2019 5:28 PM PDTEND OF SHIFT NOTE: Pt has had no events this shift. Pt set for surgery tomorrow at 12:15 with vasculature. Pt to be NPO tat midnight. No changes from initial assessment. BP elevated this shift, PRNs giv en with good relief. Potassium replaced this shift. VSS will continue to monitor. End of breanna ft review complete. Problem: Fall Injury Risk Goal: Absence of Fall and Fall-Related Injury Outcome: Ongoing, progressing Intervention: Identify and Manage Contributors to Fall Injury Risk Flowsheets (Taken 10/05/2019 0755) Self-Care Promotion: independence encouraged Note: Pt uses non skid socks and is able to ambulate to the bathroom and back. Pt is indepe ndent in the room. Educated on the risk for falls. Problem: Oral Intake Inadequate Goal: Improved Oral Intake Description: Pt will consume >70% of meals and snacks Outcome: Ongoing, progressing Intervention: Promote and Optimize Oral Intake Flowsheets (Taken 10/05/2019 0755) Oral Nutrition Promotion: calorie dense foods provided Note: Pt tolerating oral liquids well. NPO at midnight. lan of Care - Oriana Mar RN - 10/04/2019 8:07 PM PDT Problem: Fall Injury Risk Goal: Absence of Fall and Fall-Related Injury Outcome: Ongoing, progressing Note: Patient provided with arm band, uncluttered walking paths in room, adequate room ligh ting, call light within reach, bed in lowest position, and non-skid footwear. Fall and injur y risk assessed. End of Shift Note: Patient had uneventful shift. No changes from shift assessment. No needs expressed throughout shift. Vital signs unremarkable for patient. 24 hour chart check and audit complete. lan of Care - Zuleyka Ramos RN - 10/04/2019 6:55 PM PDTEND OF SHIFT NOTE: Pt has had no events this shift. Tolerated abx. ECHO completed this shift. No changes from initial assessment. VSS will continue to monitor. End of shift review complete. Problem: Oral Intake Inadequate Goal: Improved Oral Intake Description: Pt will consume >70% of meals and snacks Outcome: Ongoing, progressing Intervention: Promote and Optimize Oral Intake Flowsheets (Taken 10/04/20192000) Oral Nutrition Promotion: calorie dense foods provided Note: Pt tolerated gen diet this shift. Pt NPO at midnight. Problem: Fall Injury Risk Goal: Absence of Fall and Fall-Related Injury Outcome: Ongoing, progressing Note: Pt walking to and from the bathroom. Path to the bathroom clear of clutter. lan of [facility] - Carol Olivares MSW - 10/04/2019 12:52 PM PDTCare Management Initial Assessment Readmission Risk: Medium Status Prior to Admission or Illness Arrival From: admitted as an inpatient, home or self-care Lives With: friend(s) Living Arrangements: mobile home Caregiver For: no one Home Accessibility: no concerns, stairs to enter home Transportation Available: car, family or friend will provide Able to return to prior living: yes Care Management Concerns Readmission Within Last 30 Days: no previous admission in last 30 days PCP: No Physician on file Contact Information Family Contact Information: Name: Lele Conley (Roommate) [place] Needs Assessment Current Outpt/Agency/Support Groups: none - pt is [facility] Anticipated Changes Related to Illness: none Concerns to be Addressed: no discharge needs identified Services Anticipated at Discharge: none Equipment Used at Home: cane, straight, single point Equipment Needed after Discharge: none Pharmacy/Medication Needs: other (see comments)([facility]) Transportation Needs: family or friend will provide Initial Plan Anticipated Discharge Disposition: home Expected DC Date: yes Steps Taken Toward Discharge: Initial assessment completed. Next Steps: CM to follow for discharge planning. Notes: Pt resides with his friend in [place]. Pt is independent - no caregiver, home health, oxy gen / CPAP, outpatient services, or blood thinners. Pt reports he uses a cane. Pt reports th at he drinks about a six-pack a day. Pt denies resources for ETOH, reports that he will drin k "until I ". Electronically signed: PORTILLO HERRERA 10/04/2019 12:53 PM PDT lan of Diana - Juli Sims, SHERWIN - 10/04/2019 11:16 AM PDTFormatting of this note might be differ ent from the original. NUTRITION NOTE Summary Triggered for screening secondary to IBW <85%. 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 Pt scheduled for pseudoaneurysm repair on 10/04. Diet Experience Self-Selected Diet: Pt states "I don't stop eating all day long", states he does not follow B/L/D meal times but just eats "whenever my stomach tells me to." Pt reports drinking a 6 pack of Yasmin beer per day. Fluid/Beverage Intake Oral Fluids Amount: Ad jyoti Food Intake Type of Food/Meals: Fat and Cholesterol Modified Amount of Food: No intake documented. Nourishments: Pt declined offer for oral nutrition supplements, states "I would rather eat the real stuff." Nutritionally Relevant Medications NS@100mL/hr, Folic Acid, Thiamine Nutrition-Focused Physical Findings Overall Appearance: Thin Digestive System (Mouth to Rectum): BM on 10/01; pt has no teeth or dentures - will order den shawna soft diet Skin: RLE cellulitis Anthropometrics Admit Weight: 54.3 kg, 81% IBW and BMI of 18.8. Pt reports no changes in weight, states 120 lbs has been his normal weight for years. No previous weights found on record. Biochemical Data, Medical Test, and Procedures Recent Labs 10/04/19 0426 NA 134* K 3.9 GLU 81 BUN 7* CREA 0.60* Estimated Energy Needs 8547-4811 kcal/day (28-32 kcal/kg per 54.3 kg admit wt) Estimated Protein Needs 65-81 g/day (1.2-1.5 g/kg per 54.3 kg admit wt) Nutrition Diagnosis Inadequate oral intake related to decreased ability to consume sufficient energy and protei n as evidenced by 81% IBW Recommendations General Diet to provide additional food choices Encourage intake of nutrient-dense, protein-rich food choices with goal to consume >70 of m eals and snacks Oral nutrition supplements available if patient agreeable Continue supplementation with thiamine and folic acid, as indicated - Monitor diet tolerance, adequacy of intake, weight trend, labs, hydration status, and sto oling patterns. Nutritional Risk and Follow-Up Level of Risk: Moderate Required Follow Up: 5 days(M; 10/08) Juli Hayes, MS-MPH, RDN 10/04/2019 11:16 AM PDT lan of Care - Oriana Vuong RN - 10/04/2019 1:26 AM PDT Problem: Fall Injury Risk Goal: Absence of Fall and Fall-Related Injury Outcome: Ongoing, progressing Note: Patient provided with arm band, uncluttered walking paths in room, adequate room ligh ting, call light within reach, bed in lowest position, and non-skid footwear. Fall and injur y risk assessed. End of Shift Note: Patient had uneventful shift. CIWA negative. NPO since midnight. No orellana ges from shift assessment. No needs expressed throughout shift. Vital signs unremarkable for patient. 24 hour chart check and audit complete. documented in th is encounter Plan of Treatment +--------+---------+ + + + | Date | Type | Specialty | Care Team | Description | +--------+---------+ + + + | 10/24/ | Office | Vascular Surgery | Ricci De León DNP | | | 2019 | Visit | | [address] | | | | | | [place] | | | | | | [id number] | | | | | | | | +--------+---------+ + + + + +---------+--------+ + + | Name | Type | Priori | Associated Diagnoses | Date/Time | | | | ty | | | + +---------+--------+ + + | FL C-Arm | Imaging | Routin | | 10/07/2019 5:07 PM | | | | e | | PDT | + +---------+--------+ + + | XR Count | Imaging | Routin | | 10/07/2019 5:03 PM | | Verification No | | e | | PDT | | Charge | | | | | + +---------+--------+ + + | FL C-Arm | Imaging | Routin | | 10/08/2019 3:56 PM | | | | e | | PDT | + +---------+--------+ + + + +---------+--------+ + + | Name | Type | Priori | Associated Diagnoses | Order Schedule | | | | ty | | | + +---------+--------+ + + | FL C-Arm | Imaging | Routin | | One time imaging One | | | | e | | time imaging for 1 | | | | | | Occurrences starting | | | | | | 10/07/2019 until | | | | | | 10/07/2019 | + +---------+--------+ + + | XR Count | Imaging | Routin | | One time imaging One | | Verification No | | e | | time imaging for 1 | | Charge | | | | Occurrences starting | | | | | | 10/07/2019 until | | | | | | 10/07/2019 | + +---------+--------+ + + | FL C-Arm | Imaging | Routin | | One time imaging One | | | | e | | time imaging for 1 | | | | | | Occurrences starting | | | | | | 10/08/2019 until | | | | | | 10/08/2019 | + +---------+--------+ + + | Renal Function Panel | Lab | Routin | Pseudoaneurysm | Expected: | | | | e | ([facility]) right aorto | 10/23/2019, Expires: | | | | | femoral bypass | 10/15/2020 | + +---------+--------+ + + | CBC w/ Auto | Lab | Routin | Pseudoaneurysm | Expected: | | Differential | | e | ([facility]) right aorto | 10/23/2019, Expires: | | | | | femoral bypass | 10/15/2020 | + +---------+--------+ + + | Phosphorus | Lab | Routin | Pseudoaneurysm | 1 Occurrences | | | | e | ([facility]) right aorto | starting 10/16/2019 | | | | | femoral bypass | until 10/15/2020 | + +---------+--------+ + + | Magnesium | Lab | Routin | Pseudoaneurysm | Expected: | | | | e | ([facility]) right aorto | 10/23/2019, Expires: | | | | | femoral bypass | 10/15/2020 | + +---------+--------+ + + | Calcium | Lab | Routin | Pseudoaneurysm | Expected: | | | | e | ([facility]) right aorto | 10/23/2019, Expires: | | | | | femoral bypass | 10/15/2020 | + +---------+--------+ + + + + +--------+ + + | Name | Type | Priori | Associated Diagnoses | Order Schedule | | | | ty | | | + + +--------+ + + | Referral to Home | Outpatient | Routin | Pseudoaneurysm | Ordered: 10/16/2019 | | Health | Referral | e | ([facility]) right aorto | | | | | | femoral bypass | | | | | | Cellulitis of right | | | | | | foot 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 | + +--------+ + + + | POTASSIUM | Routin | 10/16/2019 | | Results for this | | | e | 5:11 AM | | procedure are in the | | | | PDT | | results section. | + +--------+ + + + | MAGNESIUM | Routin | 10/16/2019 | | Results for this | | | e | 5:11 AM | | procedure are in the | | | | PDT | | results section. | + +--------+ + + + | CBC NO DIFFERENTIAL | Routin | 10/15/2019 | | Results for this | | | e | 5:13 AM | | procedure are in the | | | | PDT | | results section. | + +--------+ + + + | MAGNESIUM | Routin | 10/15/2019 | | Results for this | | | e | 5:13 AM | | procedure are in the | | | | PDT | | results section. | + +--------+ + + + | BASIC METABOLIC | Routin | 10/15/2019 | | Results for this | | PANEL | e | 5:13 AM | | procedure are in the | | | | PDT | | results section. | + +--------+ + + + | POTASSIUM | Add-On | 10/14/2019 | | Results for this | | | | 3:28 PM | | procedure are in the | | | | PDT | | results section. | + +--------+ + + + | PHOSPHORUS | Routin | 10/14/2019 | | Results for this | | | e | 3:28 PM | | procedure are in the | | | | PDT | | results section. | + +--------+ + + + | MAGNESIUM | Routin | 10/14/2019 | | Results for this | | | e | 3:28 PM | | procedure are in the | | | | PDT | | results section. | + +--------+ + + + | CBC NO DIFFERENTIAL | Routin | 10/14/2019 | | Results for this | | | e | 5:49 AM | | procedure are in the | | | | PDT | | results section. | + +--------+ + + + | MAGNESIUM | Routin | 10/14/2019 | | Results for this | | | e | 5:49 AM | | procedure are in the | | | | PDT | | results section. | + +--------+ + + + | BASIC METABOLIC | Routin | 10/14/2019 | | Results for this | | PANEL | e | 5:49 AM | | procedure are in the | | | | PDT | | results section. | + +--------+ + + + | POTASSIUM | Timed | 10/13/2019 | | Results for this | | | | 11:07 AM | | procedure are in the | | | | PDT | | results section. | + +--------+ + + + | POTASSIUM | STAT | 10/13/2019 | | Results for this | | | | 4:37 AM | | procedure are in the | | | | PDT | | results section. | + +--------+ + + + | MAGNESIUM | Routin | 10/13/2019 | | Results for this | | | e | 4:37 AM | | procedure are in the | | | | PDT | | results section. | + +--------+ + + + | BASIC METABOLIC | Routin | 10/13/2019 | | Results for this | | PANEL | e | 4:37 AM | | procedure are in the | | | | PDT | | results section. | + +--------+ + + + | HEMOGLOBIN AND | Timed | 10/12/2019 | | Results for this | | HEMATOCRIT | | 6:52 PM | | procedure are in the | | | | PDT | | results section. | + +--------+ + + + | POTASSIUM | Timed | 10/12/2019 | | Results for this | | | | 4:28 PM | | procedure are in the | | | | PDT | | results section. | + +--------+ + + + | CLOSTRIDIUM | Routin | 10/12/2019 | | Results for this | | DIFFICILE A AND B | e | 4:03 PM | | procedure are in the | | EIA | | PDT | | results section. | + +--------+ + + + | TRANSFUSE 1 UNIT RED | Routin | 10/12/2019 | | | | BLOOD CELLS | e | 3:00 PM | | | | | | PDT | | | + +--------+ + + + | TRANSFUSE 1 UNIT RED | Routin | 10/12/2019 | | | | BLOOD CELLS | e | 12:13 PM | | | | | | PDT | | | + +--------+ + + + | POTASSIUM | [facility] | 10/12/2019 | | Results for this | | | | 11:02 AM | | procedure are in the | | | | PDT | | results section. | + +--------+ + + + | TYPE AND SCREEN | [facility] | 10/12/2019 | | Results for this | | | | 7:52 AM | | procedure are in the | | | | PDT | | results section. | + +--------+ + + + | PRODUCT: RBC | [facility] | 10/12/2019 | | Results for this | | | | 7:41 AM | | procedure are in the | | | | PDT | | results section. | + +--------+ + + + | CBC NO DIFFERENTIAL | STAT | 10/12/2019 | | Results for this | | | | 4:08 AM | | procedure are in the | | | | PDT | | results section. | + +--------+ + + + | MAGNESIUM | Routin | 10/12/2019 | | Results for this | | | e | 4:08 AM | | procedure are in the | | | | PDT | | results section. | + +--------+ + + + | COMPREHENSIVE | STAT | 10/12/2019 | | Results for this | | METABOLIC PANEL | | 4:08 AM | | procedure are in the | | | | PDT | | results section. | + +--------+ + + + | URINALYSIS WITH | Routin | 10/11/2019 | | Results for this | | MICROSCOPIC WITH | e | 11:16 AM | | procedure are in the | | CULTURE IF INDICATED | | PDT | | results section. | + +--------+ + + + | OSMOLALITY, URINE | STAT | 10/11/2019 | | Results for this | | | | 11:16 AM | | procedure are in the | | | | PDT | | results section. | + +--------+ + + + | CULTURE, BLOOD | STAT | 10/11/2019 | | Results for this | | | | 10:15 AM | | procedure are in the | | | | PDT | | results section. | + +--------+ + + + | XR CHEST AP PORTABLE | Routin | 10/11/2019 | | Results for this | | | e | 9:59 AM | | procedure are in the | | | | PDT | | results section. | + +--------+ + + + | CULTURE, BLOOD | STAT | 10/11/2019 | | Results for this | | | | 9:30 AM | | procedure are in the | | | | PDT | | results section. | + +--------+ + + + | SODIUM | STAT | 10/11/2019 | | Results for this | | | | 9:30 AM | | procedure are in the | | | | PDT | | results section. | + +--------+ + + + | OSMOLALITY, SERUM | STAT | 10/11/2019 | | Results for this | | | | 9:30 AM | | procedure are in the | | | | PDT | | results section. | + +--------+ + + + | CBC NO DIFFERENTIAL | STAT | 10/11/2019 | | Results for this | | | | 7:18 AM | | procedure are in the | | | | PDT | | results section. | + +--------+ + + + | COMPREHENSIVE | STAT | 10/11/2019 | | Results for this | | METABOLIC PANEL | | 7:18 AM | | procedure are in the | | | | PDT | | results section. | + +--------+ + + + | CBC WITH | Routin | 10/10/2019 | | Results for this | | DIFFERENTIAL | e | 4:16 AM | | procedure are in the | | | | PDT | | results section. | + +--------+ + + + | MAGNESIUM | Routin | 10/10/2019 | | Results for this | | | e | 4:16 AM | | procedure are in the | | | | PDT | | results section. | + +--------+ + + + | COMPREHENSIVE | Routin | 10/10/2019 | | Results for this | | METABOLIC PANEL | e | 4:16 AM | | procedure are in the | | | | PDT | | results section. | + +--------+ + + + | LACTIC ACID | STAT | 10/09/2019 | | Results for this | | | | 5:12 AM | | procedure are in the | | | | PDT | | results section. | + +--------+ + + + | PROCALCITONIN, SERUM | STAT | 10/09/2019 | | Results for this | | | | 5:10 AM | | procedure are in the | | | | PDT | | results section. | + +--------+ + + + | CBC WITH | Routin | 10/09/2019 | | Results for this | | DIFFERENTIAL | e | 5:10 AM | | procedure are in the | | | | PDT | | results section. | + +--------+ + + + | PHOSPHORUS | Routin | 10/09/2019 | | Results for this | | | e | 5:10 AM | | procedure are in the | | | | PDT | | results section. | + +--------+ + + + | MAGNESIUM | Routin | 10/09/2019 | | Results for this | | | e | 5:10 AM | | procedure are in the | | | | PDT | | results section. | + +--------+ + + + | COMPREHENSIVE | Routin | 10/09/2019 | | Results for this | | METABOLIC PANEL | e | 5:10 AM | | procedure are in the | | | | PDT | | results section. | + +--------+ + + + | POC GLUCOSE (NON | Routin | 10/09/2019 | | Results for this | | ORD) | e | 12:47 AM | | procedure are in the | | | | PDT | | results section. | + +--------+ + + + | PTT | STAT | 10/08/2019 | | Results for this | | | | 5:23 PM | | procedure are in the | | | | PDT | | results section. | + +--------+ + + + | CBC WITH | STAT | 10/08/2019 | | Results for this | | DIFFERENTIAL | | 5:23 PM | | procedure are in the | | | | PDT | | results section. | + +--------+ + + + | PHOSPHORUS | STAT | 10/08/2019 | | Results for this | | | | 5:23 PM | | procedure are in the | | | | PDT | | results section. | + +--------+ + + + | MAGNESIUM | STAT | 10/08/2019 | | Results for this | | | | 5:23 PM | | procedure are in the | | | | PDT | | results section. | + +--------+ + + + | BASIC METABOLIC | STAT | 10/08/2019 | | Results for this | | PANEL | | 5:23 PM | | procedure are in the | | | | PDT | | results section. | + +--------+ + + + | EDWARD CASTILLO, | Routin | 10/08/2019 | | Results for this | | ARTERIAL | e | 2:04 PM | | procedure are in the | | | | PDT | | results section. | + +--------+ + + + | TRANSFUSE RED BLOOD | Routin | 10/08/2019 | | | | CELLS INTRAOP | e | 1:55 PM | | | | | | PDT | | | + +--------+ + + + | TRANSFUSE RED BLOOD | Routin | 10/08/2019 | | | | CELLS INTRAOP | e | 1:53 PM | | | | | | PDT | | | + +--------+ + + + | POC MIRNA, CG8, | Routin | 10/08/2019 | | Results for this | | ARTERIAL | e | 1:22 PM | | procedure are in the | | | | PDT | | results section. | + +--------+ + + + | CBC WITH | Routin | 10/08/2019 | | Results for this | | DIFFERENTIAL | e | 5:44 AM | | procedure are in the | | | | PDT | | results section. | + +--------+ + + + | MAGNESIUM | Routin | 10/08/2019 | | Results for this | | | e | 5:44 AM | | procedure are in the | | | | PDT | | results section. | + +--------+ + + + | BASIC METABOLIC | Routin | 10/08/2019 | | Results for this | | PANEL | e | 5:44 AM | | procedure are in the | | | | PDT | | results section. | + +--------+ + + + | PTT | STAT | 10/07/2019 | | Results for this | | | | 5:21 PM | | procedure are in the | | | | PDT | | results section. | + +--------+ + + + | PROTIME INR | STAT | 10/07/2019 | | Results for this | | | | 5:21 PM | | procedure are in the | | | | PDT | | results section. | + +--------+ + + + | BASIC METABOLIC | STAT | 10/07/2019 | | Results for this | | PANEL | | 5:21 PM | | procedure are in the | | | | PDT | | results section. | + +--------+ + + + | CBC NO DIFFERENTIAL | STAT | 10/07/2019 | | Results for this | | | | 5:20 PM | | procedure are in the | | | | PDT | | results section. | + +--------+ + + + | SURGICAL PATHOLOGY | Routin | 10/07/2019 | Pseudoaneurysm | Results for this | | EXAM | e | 2:27 PM | ([facility]) | procedure are in the | | | | PDT | | results section. | + +--------+ + + + | EDWARD CASTILLO, | Routin | 10/07/2019 | | Results for this | | ARTERIAL | e | 2:04 PM | | procedure are in the | | | | PDT | | results section. | + +--------+ + + + | PRODUCT: RBC | [facility] | 10/07/2019 | | Results for this | | | | 1:03 PM | | procedure are in the | | | | PDT | | results section. | + +--------+ + + + | TRANSFUSE RED BLOOD | Routin | 10/07/2019 | | | | CELLS INTRAOP | e | 1:01 PM | | | | | | PDT | | | + +--------+ + + + | TRANSFUSE RED BLOOD | Routin | 10/07/2019 | | | | CELLS INTRAOP | e | 12:41 PM | | | | | | PDT | | | + +--------+ + + + | EDWARD CASTILLO, | Routin | 10/07/2019 | | Results for this | | ARTERIAL | e | 12:37 PM | | procedure are in the | | | | PDT | | results section. | + +--------+ + + + | EDWARD CASTILLO, | Routin | 10/07/2019 | | Results for this | | ARTERIAL | e | 10:47 AM | | procedure are in the | | | | PDT | | results section. | + +--------+ + + + | EDWARD CASTILLO, | Routin | 10/07/2019 | | Results for this | | ARTERIAL | e | 8:40 AM | | procedure are in the | | | | PDT | | results section. | + +--------+ + + + | BYPASS GRAFT | | 10/07/2019 | Pseudoaneurysm | | | FEMORAL-FEMORAL | | 7:07 AM | ([facility]) | | | | | PDT | | | + +--------+ + + + +---+--------+ | | Case | | | Notes | | | | | | [facility] | | | | | | expect | | | s this | | | case | | | to be | | | long | | | per | | | Maya | | | in | | | office | | | | | | -10/03 | | | 17:46 | | | jw | +---+--------+ | | | | | Specia | | | l | | | Needs | | | Pt in | | | rm | | | 6619-1 | +---+--------+ + +---+ + +---+ | ENDARTERECTOMY | | 10/07/2019 | Pseudoaneurysm | | | FEMORAL | | 7:07 AM | ([facility]) | | | | | PDT | | | + +---+ + +---+ +---+--------+ | | Case | | | Notes | | | | | | Chandler | | | | | | expect | | | s this | | | case | | | to be | | | long | | | per | | | Maya | | | in | | | office | | | | | | -10/03 | | | 17:46 | | | jw | +---+--------+ | | | | | Specia | | | l | | | Needs | | | Pt in | | | rm | | | 6619-1 | +---+--------+ + +---+ + +---+ | REPAIR | | 10/07/2019 | Pseudoaneurysm | | | PSEUDOANEURYSM | | 7:07 AM | ([facility]CC) | | | | | PDT | | | + +---+ + +---+ +---+--------+ | | Case | | | Notes | | | | | | Chandler | | | | | | expect | | | s this | | | case | | | to be | | | long | | | per | | | Maya | | | in | | | office | | | | | | -10/03 | | | 17:46 | | | jw | +---+--------+ | | | | | Specia | | | l | | | Needs | | | Pt in | | | rm | | | 6619-1 | +---+--------+ + +--------+ +---+ + | PRODUCT: RBC | [facility] | 10/07/2019 | | Results for this | | | | 6:30 AM | | procedure are in the | | | | PDT | | results section. | + +--------+ +---+ + | CBC WITH | Routin | 10/07/2019 | | Results for this | | DIFFERENTIAL | e | 3:55 AM | | procedure are in the | | | | PDT | | results section. | + +--------+ +---+ + | TYPE AND SCREEN | [facility] | 10/07/2019 | | Results for this | | | | 3:55 AM | | procedure are in the | | | | PDT | | results section. | + +--------+ +---+ + | MAGNESIUM | Routin | 10/07/2019 | | Results for this | | | e | 3:55 AM | | procedure are in the | | | | PDT | | results section. | + +--------+ +---+ + | BASIC METABOLIC | Routin | 10/07/2019 | | Results for this | | PANEL | e | 3:55 AM | | procedure are in the | | | | PDT | | results section. | + +--------+ +---+ + | CBC WITH | Routin | 10/06/2019 | | Results for this | | DIFFERENTIAL | e | 6:27 AM | | procedure are in the | | | | PDT | | results section. | + +--------+ +---+ + | MAGNESIUM | Routin | 10/06/2019 | | Results for this | | | e | 6:27 AM | | procedure are in the | | | | PDT | | results section. | + +--------+ +---+ + | BASIC METABOLIC | Routin | 10/06/2019 | | Results for this | | PANEL | e | 6:27 AM | | procedure are in the | | | | PDT | | results section. | + +--------+ +---+ + | CBC WITH | Routin | 10/05/2019 | | Results for this | | DIFFERENTIAL | e | 5:02 AM | | procedure are in the | | | | PDT | | results section. | + +--------+ +---+ + | MAGNESIUM | Routin | 10/05/2019 | | Results for this | | | e | 5:02 AM | | procedure are in the | | | | PDT | | results section. | + +--------+ +---+ + | BASIC METABOLIC | Routin | 10/05/2019 | | Results for this | | PANEL | e | 5:02 AM | | procedure are in the | | | | PDT | | results section. | + +--------+ +---+ + | ECHO COMPLETE | Routin | 10/04/2019 | | Results for this | | | e | 3:31 PM | | procedure are in the | | | | PDT | | results section. | + +--------+ +---+ + | VAS CAROTID DUPLEX | Routin | 10/04/2019 | | Results for this | | BILATERAL | e | 11:50 AM | | procedure are in the | | | | PDT | | results section. | + +--------+ +---+ + | MRSA NAAT | Routin | 10/04/2019 | | Results for this | | | e | 9:41 AM | | procedure are in the | | | | PDT | | results section. | + +--------+ +---+ + | PROTIME INR | Routin | 10/04/2019 | | Results for this | | | e | 6:12 AM | | procedure are in the | | | | PDT | | results section. | + +--------+ +---+ + | LIPID PANEL | Routin | 10/04/2019 | | Results for this | | | e | 4:26 AM | | procedure are in the | | | | PDT | | results section. | + +--------+ +---+ + | CBC WITH | Routin | 10/04/2019 | | Results for this | | DIFFERENTIAL | e | 4:26 AM | | procedure are in the | | | | PDT | | results section. | + +--------+ +---+ + | URIC ACID | Add-On | 10/04/2019 | | Results for this | | | | 4:26 AM | | procedure are in the | | | | PDT | | results section. | + +--------+ +---+ + | COMPREHENSIVE | Routin | 10/04/2019 | | Results for this | | METABOLIC PANEL | e | 4:26 AM | | procedure are in the | | | | PDT | | results section. | + +--------+ +---+ + | CORONAVIRUS | Routin | 10/04/2019 | | Results for this | | (COVID-19) NAAT | e | 12:49 AM | | procedure are in the | | | | PDT | | results section. | + +--------+ +---+ + | ECG 12 LEAD | Routin | 10/03/2019 | | Results for this | | | e | 11:10 PM | | procedure are in the | | | | PDT | | results section. | + +--------+ +---+ + | CBC WITH | STAT | 10/03/2019 | | Results for this | | DIFFERENTIAL | | 10:41 PM | | procedure are in the | | | | PDT | | results section. | + +--------+ +---+ + | TYPE AND SCREEN | [facility] | 10/03/2019 | | Results for this | | | | 10:41 PM | | procedure are in the | | | | PDT | | results section. | + +--------+ +---+ + | COMPREHENSIVE | STAT | 10/03/2019 | | Results for this | | METABOLIC PANEL | | 10:41 PM | | procedure are in the | | | | PDT | | results section. | + +--------+ +---+ + documented in this encounter Results CBC no Differential (10/16/2019 5:11 AM PDT) + + + + + + | Component | Value | Ref Range | Performed | Pathologist | | | | | At | Signature | + + + + + + | WBC | 12.59 (H) | 3.80 - 11.00 | [facility] | | | | | K/uL | LABORATORY | | + + + + + + | Red Blood | 3.06 (L) | 4.20 - 5.70 | [facility] | | | Cells | | M/uL | LABORATORY | | + + + + + + | Hemoglobin | 9.7 (L) | 13.2 - 17.0 | [facility] | | | | | g/dL | LABORATORY | | + + + + + + | Hematocrit | 28.2 (L) | 39.0 - 50.0 % | [facility] | | | | | | LABORATORY | | + + + + + + | MCV | 92.2 | 80.0 - 100.0 fl | [facility] | | | | | | LABORATORY | | + + + + + + | MCH | 31.7 | 27.0 - 34.0 pg | [facility] | | | | | | LABORATORY | | + + + + + + | MCHC | 34.4 | 32.0 - 35.5 | [facility] | | | | | g/dL | LABORATORY | | + + + + + + | RDW-SD | 50.3 | 37 - 53 fl | [facility] | | | | | | LABORATORY | | + + + + + + | Platelet | 274 | 150 - 400 K/uL | [facility] | | | Count | | | LABORATORY | | + + + + + + | MPV | 10.2Comment: NO NORMAL | fl | [facility] | | | | RANGE ESTABLISHEDTesting | | LABORATORY | | | | performed at [facility], [address], | | | | | | [place] [address] | | | | + + + + + + + + | Specimen | + + | Blood | + + + + + + + | Performing | Address | City/State/Zipcode | Phone Number | | Organization | | | | + + + + + | [facility] | [address] | [place] [address] | [phone] | + + + + + Magnesium (10/16/2019 5:11 AM PDT) + + + + + + | Component | Value | Ref Range | Performed | Pathologist | | | | | At | Signature | + + + + + + | Magnesium | 1.7Comment: Testing | 1.7 - 2.4 mg/dL | [facility] | | | | performed at [facility] [place] | | LABORATORY | | | | [address];[place], [place] | | | | | | [address] | | | | + + + + + + + + | Specimen | + + | Blood | + + + + + + + | Performing | Address | City/State/Zipcode | Phone Number | | Organization | | | | + + + + + | [facility] | [address] | [place] [address] | [phone] | + + + + + Potassium (10/16/2019 5:11 AM PDT) + + + + + + | Component | Value | Ref Range | Performed | Pathologist | | | | | At | Signature | + + + + + + | K | 3.0 (L)Comment: Testing | 3.5 - 4.9 | [facility] | | | | performed at [facility] [place] | mmol/L | LABORATORY | | | | [address];[place] | | | | | | [address] | | | | + + + + + + + + | Specimen | + + | Blood | + + + + + + + | Performing | Address | City/State/Zipcode | Phone Number | | Organization | | | | + + + + + | [facility] | [address] | [place] [address] | [phone] | + + + + + CBC no Differential (10/15/2019 5:13 AM PDT) + + + + + + | Component | Value | Ref Range | Performed | Pathologist | | | | | At | Signature | + + + + + + | WBC | 13.12 (H) | 3.80 - 11.00 | [facility] | | | | | K/uL | LABORATORY | | + + + + + + | Red Blood | 3.06 (L) | 4.20 - 5.70 | [facility] | | | Cells | | M/uL | LABORATORY | | + + + + + + | Hemoglobin | 9.9 (L) | 13.2 - 17.0 | [facility] | | | | | g/dL | LABORATORY | | + + + + + + | Hematocrit | 28.4 (L) | 39.0 - 50.0 % | [facility] | | | | | | LABORATORY | | + + + + + + | MCV | 92.8 | 80.0 - 100.0 fl | [facility] | | | | | | LABORATORY | | + + + + + + | MCH | 32.4 | 27.0 - 34.0 pg | [facility] | | | | | | LABORATORY | | + + + + + + | MCHC | 34.9 | 32.0 - 35.5 | [facility] | | | | | g/dL | LABORATORY | | + + + + + + | RDW-SD | 50.2 | 37 - 53 fl | [facility] | | | | | | LABORATORY | | + + + + + + | Platelet | 242 | 150 - 400 K/uL | [facility] | | | Count | | | LABORATORY | | + + + + + + | MPV | 10.6Comment: NO NORMAL | fl | [facility] | | | | RANGE ESTABLISHEDTesting | | LABORATORY | | | | performed at [facility], [address] | | [address] | [address], | | | | | | [place] [address] | | | | + + + + + + + + | Specimen | + + | Blood | + + + + + + + | Performing | Address | City/State/Zipcode | Phone Number | | Organization | | | | + + + + + | [facility] | [address] | [place] [address] | [phone] | + + + + + Magnesium (10/15/2019 5:13 AM PDT) + + + + + + | Component | Value | Ref Range | Performed | Pathologist | | | | | At | Signature | + + + + + + | Magnesium | 1.9Comment: Testing | 1.7 - 2.4 mg/dL | [facility] | | | | performed at [facility] [place] | | LABORATORY | | | | [address];[place], [place] | | | | | | [address] | | | | + + + + + + + + | Specimen | + + | Blood | + + + + + + + | Performing | Address | City/State/Zipcode | Phone Number | | Organization | | | | + + + + + | [facility] | [address] | [place] [address] | [phone] | + + + + + Basic Metabolic Panel (10/15/2019 5:13 AM PDT) + + + + + + | Component | Value | Ref Range | Performed | Pathologist | | | | | At | Signature | + + + + + + | Na | 134 (L) | 135 - 145 | [facility] | | | | | mmol/L | LABORATORY | | + + + + + + | K | 4.3 | 3.5 - 4.9 | [facility] | | | | | mmol/L | LABORATORY | | + + + + + + | Cl | 106 | 99 - 109 mmol/L | [facility] | | | | | | LABORATORY | | + + + + + + | CO2 | 23 | 23 - 32 mmol/L | [facility] | | | | | | LABORATORY | | + + + + + + | Anion Gap | 9 | 5 - 20 mmol/L | [facility] | | | | | | LABORATORY | | + + + + + + | Glucose | 76 | 65 - 99 mg/dL | [facility] | | | | | | LABORATORY | | + + + + + + | BUN | 3 (L) | 8 - 25 mg/dL | [facility] | | | | | | LABORATORY | | + + + + + + | Creatinine | 0.60 (L) | 0.70 - 1.30 | [facility] | | | | | mg/dL | LABORATORY | | + + + + + + | BUN/Creatin | 5 | | [facility] | | | ine Ratio | | | LABORATORY | | + + + + + + | Calcium | 7.5 (L) | 8.5 - 10.5 | [facility] | | | | | mg/dL | LABORATORY | | + + + + + + | Estimated | >60Comment: GFR <60: | >60 | [facility] | | | GFR | CHRONIC KIDNEY DISEASE, | mL/min/1.73m2 | LABORATORY | | | | IF FOUND OVER A 3 MONTH | | | | | | PERIOD.GFR <15: KIDNEY | | | | | | FAILURE.FOR | | | | | | AMERICANS, MULTIPLY THE | | | | | | CALCULATED GFR BY | | | | | | 1.210.This eGFR is | | | | | | calculated using the | | | | | | MDRD IDCA traceable | | | | | | equation.Testing | | | | | | performed at [facility], [address] | | | | | | [facility], | | | | | | [place] [address] | | | | + + + + + + + + | Specimen | + + | Blood | + + + + + + + | Performing | Address | City/State/Zipcode | Phone Number | | Organization | | | | + + + + + | [facility] | [address] | [place] [address] | [phone] | + + + + + Potassium (10/14/2019 3:28 PM PDT) + + + + + + | Component | Value | Ref Range | Performed | Pathologist | | | | | At | Signature | + + + + + + | K | 3.3 (L)Comment: Testing | 3.5 - 4.9 | [facility] | | | | performed at [facility] [place] | mmol/L | LABORATORY | | | | [address];[place] | | | | | | [address] | | | | + + + + + + + + | Specimen | + + | Blood | + + + + + + + | Performing | Address | City/State/Zipcode | Phone Number | | Organization | | | | + + + + + | [facility] | [address] | [place] [address] | [phone] | + + + + + Magnesium (10/14/2019 3:28 PM PDT) + + + + + + | Component | Value | Ref Range | Performed | Pathologist | | | | | At | Signature | + + + + + + | Magnesium | 2.1Comment: Testing | 1.7 - 2.4 mg/dL | [facility] | | | | performed at [facility] [place] | | LABORATORY | | | | [address];[place], [place] | | | | | | [address] | | | | + + + + + + + + | Specimen | + + | Blood | + + + + + + + | Performing | Address | City/State/Zipcode | Phone Number | | Organization | | | | + + + + + | [facility] | [address] | [place] [address] | [phone] | + + + + + Phosphorus (10/14/2019 3:28 PM PDT) + + + + + + | Component | Value | Ref Range | Performed | Pathologist | | | | | At | Signature | + + + + + + | Phosphorus | 1.3 (L)Comment: Testing | 2.3 - 4.8 mg/dL | [facility] | | | | performed at [facility] [place] [place] | | LABORATORY | | | | [address];[place], [place] | | | | | | [address] | | | | + + + + + + + + | Specimen | + + | Blood | + + + + + + + | Performing | Address | City/State/Zipcode | Phone Number | | Organization | | | | + + + + + | [facility] | [address] | [place] [address] | [phone] | + + + + + CBC no Differential (10/14/2019 5:49 AM PDT) + + + + + + | Component | Value | Ref Range | Performed | Pathologist | | | | | At | Signature | + + + + + + | WBC | 12.21 (H) | 3.80 - 11.00 | [facility] | | | | | K/uL | LABORATORY | | + + + + + + | Red Blood | 3.16 (L) | 4.20 - 5.70 | [facility] | | | Cells | | M/uL | LABORATORY | | + + + + + + | Hemoglobin | 10.0 (L) | 13.2 - 17.0 | [facility] | | | | | g/dL | LABORATORY | | + + + + + + | Hematocrit | 29.1 (L) | 39.0 - 50.0 % | [facility] | | | | | | LABORATORY | | + + + + + + | MCV | 92.1 | 80.0 - 100.0 fl | [facility] | | | | | | LABORATORY | | + + + + + + | MCH | 31.6 | 27.0 - 34.0 pg | [facility] | | | | | | LABORATORY | | + + + + + + | MCHC | 34.4 | 32.0 - 35.5 | [facility] | | | | | g/dL | LABORATORY | | + + + + + + | RDW-SD | 48.8 | 37 - 53 fl | [facility] | | | | | | LABORATORY | | + + + + + + | Platelet | 235 | 150 - 400 K/uL | [facility] | | | Count | | | LABORATORY | | + + + + + + | MPV | 10.5Comment: NO NORMAL | fl | [facility] | | | | RANGE ESTABLISHEDTesting | | LABORATORY | | | | performed at [facility], [address] | | | | | [address], | | | | | | [place] [address] | | | | + + + + + + + + | Specimen | + + | Blood | + + + + + + + | Performing | Address | City/State/Zipcode | Phone Number | | Organization | | | | + + + + + | [facility] | [address] | [place] [address] | [phone] | + + + + + Magnesium (10/14/2019 5:49 AM PDT) + + + + + + | Component | Value | Ref Range | Performed | Pathologist | | | | | At | Signature | + + + + + + | Magnesium | 1.6 (L)Comment: Testing | 1.7 - 2.4 mg/dL | [facility] | | | | performed at [facility] [place] [place] | | LABORATORY | | | | [address];[place], [place] | | | | | | [address] | | | | + + + + + + + + | Specimen | + + | Blood | + + + + + + + | Performing | Address | City/State/Zipcode | Phone Number | | Organization | | | | + + + + + | [facility] | [address] | [place] [address] | [phone] | + + + + + Basic Metabolic Panel (10/14/2019 5:49 AM PDT) + + + + + + | Component | Value | Ref Range | Performed | Pathologist | | | | | At | Signature | + + + + + + | Na | 135 | 135 - 145 | [facility] | | | | | mmol/L | LABORATORY | | + + + + + + | K | 3.2 (L) | 3.5 - 4.9 | [facility] | | | | | mmol/L | LABORATORY | | + + + + + + | Cl | 103 | 99 - 109 mmol/L | [facility] | | | | | | LABORATORY | | + + + + + + | CO2 | 26 | 23 - 32 mmol/L | [facility] | | | | | | LABORATORY | | + + + + + + | Anion Gap | 9 | 5 - 20 mmol/L | [facility] | | | | | | LABORATORY | | + + + + + + | Glucose | 90 | 65 - 99 mg/dL | [facility] | | | | | | LABORATORY | | + + + + + + | BUN | 4 (L) | 8 - 25 mg/dL | [facility] | | | | | | LABORATORY | | + + + + + + | Creatinine | 0.60 (L) | 0.70 - 1.30 | [facility] | | | | | mg/dL | LABORATORY | | + + + + + + | BUN/Creatin | 7 | | [facility] | | | ine Ratio | | | LABORATORY | | + + + + + + | Calcium | 7.6 (L) | 8.5 - 10.5 | [facility] | | | | | mg/dL | LABORATORY | | + + + + + + | Estimated | >60Comment: GFR <60: | >60 | [facility] | | | GFR | CHRONIC KIDNEY DISEASE, | mL/min/1.73m2 | LABORATORY | | | | IF FOUND OVER A 3 MONTH | | | | | | PERIOD.GFR <15: KIDNEY | | | | | | FAILURE.FOR | | | | | | AMERICANS, MULTIPLY THE | | | | | | CALCULATED GFR BY | | | | | | 1.210.This eGFR is | | | | | | calculated using the | | | | | | MDRD IDCA traceable | | | | | | equation.Testing | | | | | | performed at [facility], [address] | | | | | | [facility], | | | | | | [place] [address] | | | | + + + + + + + + | Specimen | + + | Blood | + + + + + + + | Performing | Address | City/State/Zipcode | Phone Number | | Organization | | | | + + + + + | [facility] | [address] | [place] [address] | [phone] | + + + + + Potassium (10/13/2019 11:07 AM PDT) + + + + + + | Component | Value | Ref Range | Performed | Pathologist | | | | | At | Signature | + + + + + + | K | 3.5Comment: Testing | 3.5 - 4.9 | [facility] | | | | performed at [facility] [place] | mmol/L | LABORATORY | | | | [address];[place] | | | | | | [address] | | | | + + + + + + + + | Specimen | + + | Blood | + + + + + + + | Performing | Address | City/State/Zipcode | Phone Number | | Organization | | | | + + + + + | [facility] | [address] | [place] [address] | [phone] | + + + + + Potassium (10/13/2019 4:37 AM PDT) + + + + + + | Component | Value | Ref Range | Performed | Pathologist | | | | | At | Signature | + + + + + + | K | 3.5Comment: Testing | 3.5 - 4.9 | [facility] | | | | performed at [facility] [place] | mmol/L | LABORATORY | | | | [address];[place], [place] | | | | | | [address] | | | | + + + + + + + + | Specimen | + + | Blood | + + + + + + + | Performing | Address | City/State/Zipcode | Phone Number | | Organization | | | | + + + + + | [facility] | [address] | [place] [address] | [phone] | + + + + + Magnesium (10/13/2019 4:37 AM PDT) + + + + + + | Component | Value | Ref Range | Performed | Pathologist | | | | | At | Signature | + + + + + + | Magnesium | 1.7Comment: Testing | 1.7 - 2.4 mg/dL | [facility] | | | | [place] [facility] [place] | | LABORATORY | | | | [address];[place], [place] | | | | | | [address] | | | | + + + + + + + + | Specimen | + + | Blood | + + + + + + + | Performing | Address | City/State/Zipcode | Phone Number | | Organization | | | | + + + + + | [facility] | [address] | [place] [address] | [phone] | + + + + + Basic Metabolic Panel (10/13/2019 4:37 AM PDT) + + + + + + | Component | Value | Ref Range | Performed | Pathologist | | | | | At | Signature | + + + + + + | Na | 135 | 135 - 145 | [facility] | | | | | mmol/L | LABORATORY | | + + + + + + | K | 3.5 | 3.5 - 4.9 | [facility] | | | | | mmol/L | LABORATORY | | + + + + + + | Cl | 104 | 99 - 109 mmol/L | [facility] | | | | | | LABORATORY | | + + + + + + | CO2 | 25 | 23 - 32 mmol/L | [facility] | | | | | | LABORATORY | | + + + + + + | Anion Gap | 10 | 5 - 20 mmol/L | [facility] | | | | | | LABORATORY | | + + + + + + | Glucose | 89 | 65 - 99 mg/dL | [facility] | | | | | | LABORATORY | | + + + + + + | BUN | <5 (L) | 8 - 25 mg/dL | [facility] | | | | | | LABORATORY | | + + + + + + | Creatinine | 0.65 (L) | 0.70 - 1.30 | [facility] | | | | | mg/dL | LABORATORY | | + + + + + + | BUN/Creatin | UNABLE TO CALCULATE | | [facility] | | | ine Ratio | | | LABORATORY | | + + + + + + | Calcium | 7.3 (L) | 8.5 - 10.5 | [facility] | | | | | mg/dL | LABORATORY | | + + + + + + | Estimated | >60Comment: GFR <60: | >60 | [facility] | | | GFR | CHRONIC KIDNEY DISEASE, | mL/min/1.73m2 | LABORATORY | | | | IF FOUND OVER A 3 MONTH | | | | | | PERIOD.GFR <15: KIDNEY | | | | | | FAILURE.FOR | | | | | | AMERICANS, MULTIPLY THE | | | | | | CALCULATED GFR BY | | | | | | 1.210.This eGFR is | | | | | | calculated using the | | | | | | MDRD IDCA traceable | | | | | | equation.Testing | | | | | | performed at [facility] [place] | | | | | | [facility];[place], [place] | | | | | | [address] | | | | + + + + + + + + | Specimen | + + | Blood | + + + + + + + | Performing | Address | City/State/Zipcode | Phone Number | | Organization | | | | + + + + + | [facility] | [address] | [place] [address] | [phone] | + + + + + Hemoglobin and Hematocrit (10/12/2019 6:52 PM PDT) + + + + + + | Component | Value | Ref Range | Performed | Pathologist | | | | | At | Signature | + + + + + + | Hemoglobin | 9.5 (L) | 13.2 - 17.0 | [facility] | | | | | g/dL | LABORATORY | | + + + + + + | Hematocrit | 27.5 (L)Comment: Testing | 39.0 - 50.0 % | [facility] | | | | performed at [facility] [place] | | LABORATORY | | | | [address];[place] | | | | | | [address] | | | | + + + + + + + + | Specimen | + + | Blood | + + + + + + + | Performing | Address | City/State/Zipcode | Phone Number | | Organization | | | | + + + + + | [facility] | [address] | [place] [address] | [phone] | + + + + + Potassium (10/12/2019 4:28 PM PDT) + + + + + + | Component | Value | Ref Range | Performed | Pathologist | | | | | At | Signature | + + + + + + | K | 3.3 (L)Comment: Testing | 3.5 - 4.9 | [facility] | | | | performed at [facility] [place] | mmol/L | LABORATORY | | | | [address];[place] | | | | | | [address] | | | | + + + + + + + + | Specimen | + + | Blood | + + + + + + + | Performing | Address | City/State/Zipcode | Phone Number | | Organization | | | | + + + + + | [facility] | [address] | [place] [address] | [phone] | + + + + + Clostridium difficile A and B EIA (10/12/2019 4:03 PM PDT) + + + + + + | Component | Value | Ref Range | Performed | Pathologist | | | | | At | Signature | + + + + + + | Clostridium | NEGATIVE | NEG | [facility] | | | Difficile | | | LABORATORY | | | GDH Antigen | | | | | + + + + + + | C. Diff | NEGATIVE | NEG | [facility] | | | Toxin A/B | | | LABORATORY | | | EIA | | | | | + + + + + + | C. | Negative for toxigenic | | [facility] | | | difficile, | C.difficile.Comment: | | LABORATORY | | | Interp | Testing performed at | | | | | | [facility] [place] | | | | | | [address];[place] [address] | | | | + + + + + + + + | Specimen | + + | Stool - Stool | | specimen (specimen) | + + + + + + + | Performing | Address | City/State/Zipcode | Phone Number | | Organization | | | | + + + + + | [facility] | [address] | [place] [address] | [phone] | + + + + + Potassium (10/12/2019 11:02 AM PDT) + + + + + + | Component | Value | Ref Range | Performed | Pathologist | | | | | At | Signature | + + + + + + | K | 3.3 (L)Comment: Testing | 3.5 - 4.9 | [facility] | | | | performed at [facility] [place] | mmol/L | LABORATORY | | | | [facility];[place], [place] | | | | | | [address] | | | | + + + + + + + + | Specimen | + + | Blood | + + + + + + + | Performing | Address | City/State/Zipcode | Phone Number | | Organization | | | | + + + + + | [facility] | [address] | [place] [address] | [phone] | + + + + + Type and Screen (10/12/2019 7:52 AM PDT) + + + + + + | Component | Value | Ref Range | Performed | Pathologist | | | | | At | Signature | + + + + + + | ABO Rh | A POSITIVE | | [facility] | | | | | | LABORATORY | | + + + + + + | Antibody | NEGATIVE | | [facility] | | | Screen | | | LABORATORY | | + + + + + + | BB BAND | [id number] | | [facility] | | | | | | LABORATORY | | + + + + + + | UNIT # | [id number] | | [facility] | | | | | | LABORATORY | | + + + + + + | Product | LEUKODEPLETED PC | | [facility] | | | Code | | | LABORATORY | | + + + + + + | Unit | 00 | | [facility] | | | Division | | | LABORATORY | | + + + + + + | Unit Status | ISSUED,FINAL | | [facility] | | | | | | LABORATORY | | + + + + + + | Transfusion | OK TO TRANSFUSE | | [facility] | | | Status | | | LABORATORY | | + + + + + + | CROSSMATCH | COMPATIBLETesting | | [facility] | | | RESULT | performed at [facility] [place] | | LABORATORY | | | | [address];[place], [place] | | | | | | [address] | | | | + + + + + + | UNIT # | [id number] | | [facility] | | | | | | LABORATORY | | + + + + + + | Product | LEUKODEPLETED PC | | [facility] | | | Code | | | LABORATORY | | + + + + + + | Unit | 00 | | [facility] | | | Division | | | LABORATORY | | + + + + + + | Unit Status | ISSUED,FINAL | | [facility] | | | | | | LABORATORY | | + + + + + + | Transfusion | OK TO TRANSFUSE | | [facility] | | | Status | | | LABORATORY | | + + + + + + | CROSSMATCH | COMPATIBLE | | [facility] | | | RESULT | | | LABORATORY | | + + + + + + + + | Specimen | + + | Blood | + + + + + + + | Performing | Address | City/State/Zipcode | Phone Number | | Organization | | | | + + + + + | [facility] | [address] | [place] [address] | [phone] | + + + + + Red Blood Cells (PRBC) - Crossmatch (10/12/2019 7:41 AM PDT) + + + + + + | Component | Value | Ref Range | Performed | Pathologist | | | | | At | Signature | + + + + + + | Product | RED CELL GROUP | | [facility] | | | Code | | | LABORATORY | | + + + + + + | Units | 2 | | [facility] | | | ordered | | | LABORATORY | | + + + + + + | BLOOD BANK | ORDER RECEIVED IN BLOOD | | [facility] | | | COMMENT | BANK. | | LABORATORY | | + + + + + + | BLOOD BANK | Testing performed at | | [facility] | | | COMMENT | [facility] | | LABORATORY | | | | [address];[place] [address] | | | | + + + + + + + + | Specimen | + + | | + + + + + + + | Performing | Address | City/State/Zipcode | Phone Number | | Organization | | | | + + + + + | [facility] | [address] | [place] [address] | [phone] | + + + + + Magnesium (10/12/2019 4:08 AM PDT) + + + + + + | Component | Value | Ref Range | Performed | Pathologist | | | | | At | Signature | + + + + + + | Magnesium | 1.9Comment: Testing | 1.7 - 2.4 mg/dL | [facility] | | | | performed at [facility] [place];[address] | | LABORATORY | | | | [address];[place] | | | | | | [address] | | | | + + + + + + + + | Specimen | + + | Blood | + + + + + + + | Performing | Address | City/State/Zipcode | Phone Number | | Organization | | | | + + + + + | [facility] | [address] | [place] [address] | [phone] | + + + + + Comprehensive Metabolic Panel (10/12/2019 4:08 AM PDT) + + + + + + | Component | Value | Ref Range | Performed | Pathologist | | | | | At | Signature | + + + + + + | Na | 130 (L) | 135 - 145 | [facility] | | | | | mmol/L | LABORATORY | | + + + + + + | K | 3.1 (L) | 3.5 - 4.9 | [facility] | | | | | mmol/L | LABORATORY | | + + + + + + | Cl | 102 | 99 - 109 mmol/L | [facility] | | | | | | LABORATORY | | + + + + + + | CO2 | 23 | 23 - 32 mmol/L | [facility] | | | | | | LABORATORY | | + + + + + + | Anion Gap | 8 | 5 - 20 mmol/L | [facility] | | | | | | LABORATORY | | + + + + + + | Glucose | 82 | 65 - 99 mg/dL | [facility] | | | | | | LABORATORY | | + + + + + + | BUN | 6 (L) | 8 - 25 mg/dL | [facility] | | | | | | LABORATORY | | + + + + + + | Creatinine | 0.75 | 0.70 - 1.30 | [facility] | | | | | mg/dL | LABORATORY | | + + + + + + | BUN/Creatin | 8 | | [facility] | | | ine Ratio | | | LABORATORY | | + + + + + + | Calcium | 7.2 (L) | 8.5 - 10.5 | [facility] | | | | | mg/dL | LABORATORY | | + + + + + + | Protein, | 4.3 (L) | 6.3 - 8.2 g/dL | [facility] | | | Total | | | LABORATORY | | + + + + + + | Albumin | 2.5 (L) | 3.3 - 4.8 g/dL | [facility] | | | | | | LABORATORY | | + + + + + + | Globulin | 1.8 | 1.3 - 4.9 g/dL | [facility] | | | | | | LABORATORY | | + + + + + + | A/G Ratio | 1.4 | 1.0 - 2.4 | [facility] | | | | | | LABORATORY | | + + + + + + | BILIRUBIN, | 1.0 | 0.1 - 1.5 mg/dL | [facility] | | | TOTAL | | | LABORATORY | | + + + + + + | ALK PHOS | 80 | 35 - 115 U/L | [facility] | | | | | | LABORATORY | | + + + + + + | AST | 78 (H) | 10 - 45 U/L | [facility] | | | | | | LABORATORY | | + + + + + + | ALT | 37 | 10 - 65 U/L | [facility] | | | | | | LABORATORY | | + + + + + + | Estimated | >60Comment: GFR <60: | >60 | [facility] | | | GFR | CHRONIC KIDNEY DISEASE, | mL/min/1.73m2 | LABORATORY | | | | IF FOUND OVER A 3 MONTH | | | | | | PERIOD.GFR <15: KIDNEY | | | | | | FAILURE.FOR | | | | | | AMERICANS, MULTIPLY THE | | | | | | CALCULATED GFR BY | | | | | | 1.210.This eGFR is | | | | | | calculated using the | | | | | | MDRD IDCA traceable | | | | | | equation.Testing | | | | | | performed at [facility] [place] | | | | | | [facility];[place], [place] | | | | | | [address] | | | | + + + + + + + + | Specimen | + + | Blood | + + + + + + + | Performing | Address | City/State/Zipcode | Phone Number | | Organization | | | | + + + + + | [facility] | [address] | [place] [address] | [phone] | + + + + + CBC no Differential (10/12/2019 4:08 AM PDT) + + + + + + | Component | Value | Ref Range | Performed | Pathologist | | | | | At | Signature | + + + + + + | WBC | 14.13 (H) | 3.80 - 11.00 | [facility] | | | | | K/uL | LABORATORY | | + + + + + + | Red Blood | 2.10 (L) | 4.20 - 5.70 | [facility] | | | Cells | | M/uL | LABORATORY | | + + + + + + | Hemoglobin | 6.9 (LL)Comment: CALLED | 13.2 - 17.0 | [facility] | | | | NURSING [id number] H | g/dL | LABORATORY | | | | AT 0436 BY RHREAD BACK | | | | | | RESULTS VERIFIED | | | | | |READ BACK RESULTS VERIFIED | | | | | | | | | | + + + + + + | Hematocrit | 19.9 (LL)Comment: CALLED | 39.0 - 50.0 % | [facility] | | | | NURSING [id number] | | LABORATORY | | | | H AT 0436 BY RHREAD BACK | | | | | | RESULTS VERIFIED | | | | | |READ BACK RESULTS VERIFIED | | | | | | | | | | + + + + + + | MCV | 94.8 | 80.0 - 100.0 fl | [facility] | | | | | | LABORATORY | | + + + + + + | MCH | 32.9 | 27.0 - 34.0 pg | [facility] | | | | | | LABORATORY | | + + + + + + | MCHC | 34.7 | 32.0 - 35.5 | [facility] | | | | | g/dL | LABORATORY | | + + + + + + | RDW-SD | 50.0 | 37 - 53 fl | [facility] | | | | | | LABORATORY | | + + + + + + | Platelet | 192 | 150 - 400 K/uL | [facility] | | | Count | | | LABORATORY | | + + + + + + | MPV | 9.9Comment: NO NORMAL | fl | [facility] | | | | RANGE ESTABLISHEDTesting | | LABORATORY | | | | performed at [facility] [place] | | | | | | [address];[place], [place] | | | | | | [address] | | | | + + + + + + + + | Specimen | + + | Blood | + + + + + + + | Performing | Address | City/State/Zipcode | Phone Number | | Organization | | | | + + + + + | [facility] | [address] | [place] [address] | [phone] | + + + + + Urinalysis with Microscopic with Culture if Indicated (10/11/2019 11:16 AM PDT) + + + + + + | Component | Value | Ref Range | Performed | Pathologist | | | | | At | Signature | + + + + + + | Color, UA | YELLOW | | [facility] | | | | | | LABORATORY | | + + + + + + | Clarity, | CLEAR | | [facility] | | | Urine | | | LABORATORY | | + + + + + + | Specific | 1.008 | 1.002 - 1.030 | [facility] | | | [place], | | | LABORATORY | | | Urine | | | | | + + + + + + | Leukocyte | NEGATIVE | NEG | [facility] | | | esterase, | | | LABORATORY | | | UA | | | | | + + + + + + | Nitrite, UA | NEGATIVE | NEG | [facility] | | | | | | LABORATORY | | + + + + + + | Urobilinoge | <1.6 | <1.6 mg/dL | [facility] | | | n, Ur | | | LABORATORY | | + + + + + + | Protein, | NEGATIVE | NEG mg/dL | [facility] | | | Urine | | | LABORATORY | | | (mg/dL) | | | | | + + + + + + | pH, Urine | 6.0 | 5.0 - 8.0 | [facility] | | | | | | LABORATORY | | + + + + + + | Blood, UA | SMALL (A) | NEG | [facility] | | | | | | LABORATORY | | + + + + + + | Ketones, UA | TRACE (A) | NEG mg/dL | [facility] | | | | | | LABORATORY | | + + + + + + | Bilirubin, | NEGATIVE | NEG | [facility] | | | UA | | | LABORATORY | | + + + + + + | Glucose, Ur | NEGATIVE | NEG mg/dL | [facility] | | | | | | LABORATORY | | + + + + + + | WBC UA | 3-5 | 0 - 5 /hpf | [facility] | | | | | | LABORATORY | | + + + + + + | Red Blood | 3-5 | 0 - 2 /hpf | [facility] | | | Cells, | | | LABORATORY | | | Urine | | | | | + + + + + + | Squamous | 6-10 | /lpf | [facility] | | | Epithelial | | | LABORATORY | | | Cells, | | | | | | Urine | | | | | + + + + + + | Bacteria, | NONE SEENComment: | NONE | [facility] | | | Urine | Testing performed at | | LABORATORY | | | | [facility], [address] | | | | | | [place] | | | | | | [address] | | | | + + + + + + + + | Specimen | + + | Urine - Urine | | specimen obtained by | | clean catch | | procedure (specimen) | + + + + + + + | Performing | Address | City/State/Zipcode | Phone Number | | Organization | | | | + + + + + | [facility] | [address] | [place] [address] | [phone] | + + + + + Osmolality, Urine (10/11/2019 11:16 AM PDT) + + + + + + | Component | Value | Ref Range | Performed | Pathologist | | | | | At | Signature | + + + + + + | OSMO URINE | 239Comment: Testing | 50 - 1,200 | [facility] | | | | performed at [facility], [address] | mOsm/kg | LABORATORY | | | | [address], | | | | | | [place] [address] | | | | + + + + + + + + | Specimen | + + | Urine - Urine | | specimen obtained by | | clean catch | | procedure (specimen) | + + + + + + + | Performing | Address | City/State/Zipcode | Phone Number | | Organization | | | | + + + + + | [facility] | [address] | [place] [address] | [phone] | + + + + + Culture, Blood (10/11/2019 10:15 AM PDT) + + + + + + | Component | Value | Ref Range | Performed | Pathologist | | | | | At | Signature | + + + + + + | Special | LAC | | [facility] | | | Requests | | | LABORATORY | | + + + + + + | Special | Testing performed at | | [facility] | | | Requests | [facility] | | LABORATORY | | | | [address] [address] | | | | + + + + + + | RESULT | NO GROWTH 6 DAYS | | [facility] | | | | | | LABORATORY | | + + + + + + | RESULT | Testing performed at | | [facility] | | | | L, [address] [facility] | | LABORATORY | | | | [place] | | | | | | [address]Gbpaiin: Testing | | | | | | performed at [facility], [address] | | | | | | [address], [place] | | | | | | [address] | | | | + + + + + + + + | Specimen | + + | Blood - Swab of line | | insertion site | | (specimen) | + + + + + + + | Performing | Address | City/State/Zipcode | Phone Number | | Organization | | | | + + + + + | [facility] | [address] | [place] [address] | [phone] | + + + + + XR Chest AP Portable (10/11/2019 9:59 AM PDT) + + | Specimen | + + | | + + + + + | Impressions | Performed At | + + + | 1. Poorly defined opacities in the left mid lung and right lung | [facility] | | base, which may represent atelectasis or consolidation. 2. | | | Architectural changes concerning for COPD. Final Report | | | Signed by: Jacky Mercado, Rudolph Graham Date/Time: 10/11/2019 10:39 AM | | + + + + + + | Narrative | Performed At | + + + | CHEST PORTABLE ONE VIEW CLINICAL INFORMATION: Leukocytosis. | [facility] | | COMPARISON: XR COUNT VERIFICATION NO CHARGE (10/07/2019); CT | | | ABDOMEN PELVIS W CONTRAST (11/16/2016); FINDINGS: Coarsened | | | interstitial markings throughout the lungs bilaterally. Poorly | | | defined opacities in the left mid lung and right lung base. | | | Costophrenic angles are clear. No pneumothorax. Cardiac silhouette | | | is unremarkable. | | + + + + + | Procedure Note | + + | Espinoza, [id number] - 10/11/2019 10:42 AM PDT | | CHEST PORTABLE ONE VIEW | | | | CLINICAL INFORMATION: | | Leukocytosis. | | | | COMPARISON: | | XR COUNT VERIFICATION NO CHARGE (10/07/2019); CT ABDOMEN PELVIS W | | CONTRAST (11/16/2016); | | | | FINDINGS: | | Coarsened interstitial markings throughout the lungs bilaterally. | | Poorly defined opacities in the left mid lung and right lung base. | | Costophrenic angles are clear. No pneumothorax. Cardiac silhouette is | | unremarkable. | | | | IMPRESSION: | | 1. Poorly defined opacities in the left mid lung and right lung base, | | which may represent atelectasis or consolidation. | | 2. Architectural changes concerning for COPD. | | | | | | | | | | Final Report Signed by: Jacky Mercado John | | Sign Date/Time: 10/11/2019 10:39 AM | + + + +---------+ + + | Performing | Address | City/State/Zipcode | Phone Number | | Organization | | | | + +---------+ + + | [facility] | | | | + +---------+ + + Culture, Blood (10/11/2019 9:30 AM PDT) + + + + + + | Component | Value | Ref Range | Performed | Pathologist | | | | | At | Signature | + + + + + + | Special | R AC | | [facility] | | | Requests | | | LABORATORY | | + + + + + + | Special | Testing performed at | | [facility] | | | Requests | [facility] | | LABORATORY | | | | [place] [address] | | | | + + + + + + | RESULT | NO GROWTH 6 DAYS | | [facility] | | | | | | LABORATORY | | + + + + + + | RESULT | Testing performed at | | [facility] | | | | [facility], [address] [facility] | | LABORATORY | | | | [place] | | | | | | [id number]: Testing | | | | | | performed at [facility], [address] | | | | | | [address], [place] | | | | | | [address] | | | | + + + + + + + + | Specimen | + + | Blood - Peripheral | | blood specimen | | (specimen) | + + + + + + + | Performing | Address | City/State/Zipcode | Phone Number | | Organization | | | | + + + + + | [facility] | [address] | [place] [address] | [phone] | + + + + + Sodium (10/11/2019 9:30 AM PDT) + + + + + + | Component | Value | Ref Range | Performed | Pathologist | | | | | At | Signature | + + + + + + | Na | 127 (L)Comment: Testing | 135 - 145 | [facility] | | | | performed at [facility] | mmol/L | LABORATORY | | | | [address];[place] | | | | | | [address] | | | | + + + + + + + + | Specimen | + + | Blood | + + + + + + + | Performing | Address | City/State/Zipcode | Phone Number | | Organization | | | | + + + + + | [facility] | [address] | [place] [address] | [phone] | + + + + + Osmolality, Serum (10/11/2019 9:30 AM PDT) + + + + + + | Component | Value | Ref Range | Performed | Pathologist | | | | | At | Signature | + + + + + + | Osmolality, | 262 (L)Comment: Testing | 280 - 301 | [facility] | | | Serum | performed at [facility], [address] | mOsm/kg | LABORATORY | | | | [address], | | | | | | [place] [address] | | | | + + + + + + + + | Specimen | + + | Blood | + + + + + + + | Performing | Address | City/State/Zipcode | Phone Number | | Organization | | | | + + + + + | [facility] | [address] | [place] [address] | [phone] | + + + + + Comprehensive Metabolic Panel (10/11/2019 7:18 AM PDT) + + + + + + | Component | Value | Ref Range | Performed | Pathologist | | | | | At | Signature | + + + + + + | Na | 128 (L) | 135 - 145 | [facility] | | | | | mmol/L | LABORATORY | | + + + + + + | K | 3.5 | 3.5 - 4.9 | [facility] | | | | | mmol/L | LABORATORY | | + + + + + + | Cl | 100 | 99 - 109 mmol/L | [facility] | | | | | | LABORATORY | | + + + + + + | CO2 | 24 | 23 - 32 mmol/L | [facility] | | | | | | LABORATORY | | + + + + + + | Anion Gap | 8 | 5 - 20 mmol/L | [facility] | | | | | | LABORATORY | | + + + + + + | Glucose | 72 | 65 - 99 mg/dL | [facility] | | | | | | LABORATORY | | + + + + + + | BUN | 8 | 8 - 25 mg/dL | [facility] | | | | | | LABORATORY | | + + + + + + | Creatinine | 0.89 | 0.70 - 1.30 | [facility] | | | | | mg/dL | LABORATORY | | + + + + + + | BUN/Creatin | 9 | | [facility] | | | ine Ratio | | | LABORATORY | | + + + + + + | Calcium | 7.2 (L) | 8.5 - 10.5 | [facility] | | | | | mg/dL | LABORATORY | | + + + + + + | Protein, | 4.8 (L) | 6.3 - 8.2 g/dL | [facility] | | | Total | | | LABORATORY | | + + + + + + | Albumin | 2.8 (L) | 3.3 - 4.8 g/dL | [facility] | | | | | | LABORATORY | | + + + + + + | Globulin | 2.0 | 1.3 - 4.9 g/dL | [facility] | | | | | | LABORATORY | | + + + + + + | A/G Ratio | 1.4 | 1.0 - 2.4 | [facility] | | | | | | LABORATORY | | + + + + + + | BILIRUBIN, | 1.1 | 0.1 - 1.5 mg/dL | [facility] | | | TOTAL | | | LABORATORY | | + + + + + + | ALK PHOS | 83 | 35 - 115 U/L | [facility] | | | | | | LABORATORY | | + + + + + + | AST | 73 (H) | 10 - 45 U/L | [facility] | | | | | | LABORATORY | | + + + + + + | ALT | 34 | 10 - 65 U/L | [facility] | | | | | | LABORATORY | | + + + + + + | Estimated | >60Comment: GFR <60: | >60 | [facility] | | | GFR | CHRONIC KIDNEY DISEASE, | mL/min/1.73m2 | LABORATORY | | | | IF FOUND OVER A 3 MONTH | | | | | | PERIOD.GFR <15: KIDNEY | | | | | | FAILURE.FOR | | | | | | AMERICANS, MULTIPLY THE | | | | | | CALCULATED GFR BY | | | | | | 1.210.This eGFR is | | | | | | calculated using the | | | | | | MDRD IDCA traceable | | | | | | equation.Testing | | | | | | performed at [facility];[address] | | | | | | [facility];[place], [place] | | | | | | [address] | | | | + + + + + + + + | Specimen | + + | Blood | + + + + + + + | Performing | Address | City/State/Zipcode | Phone Number | | Organization | | | | + + + + + | [facility] | [address] | [place] [address] | [phone] | + + + + + CBC no Differential (10/11/2019 7:18 AM PDT) + + + + + + | Component | Value | Ref Range | Performed | Pathologist | | | | | At | Signature | + + + + + + | WBC | 21.39 (H) | 3.80 - 11.00 | [facility] | | | | | K/uL | LABORATORY | | + + + + + + | Red Blood | 2.31 (L) | 4.20 - 5.70 | [facility] | | | Cells | | M/uL | LABORATORY | | + + + + + + | Hemoglobin | 7.8 (L) | 13.2 - 17.0 | [facility] | | | | | g/dL | LABORATORY | | + + + + + + | Hematocrit | 22.0 (L) | 39.0 - 50.0 % | [facility] | | | | | | LABORATORY | | + + + + + + | MCV | 95.2 | 80.0 - 100.0 fl | [facility] | | | | | | LABORATORY | | + + + + + + | MCH | 33.8 | 27.0 - 34.0 pg | [facility] | | | | | | LABORATORY | | + + + + + + | MCHC | 35.5 | 32.0 - 35.5 | [facility] | | | | | g/dL | LABORATORY | | + + + + + + | RDW-SD | 49.3 | 37 - 53 fl | [facility] | | | | | | LABORATORY | | + + + + + + | Platelet | 192 | 150 - 400 K/uL | [facility] | | | Count | | | LABORATORY | | + + + + + + | MPV | 10.1Comment: NO NORMAL | fl | [facility] | | | | RANGE ESTABLISHEDTesting | | LABORATORY | | | | [place] [facility] [place] | | | | | | Anthony Mata;[place] | | | | | | [id number] | | | | + + + + + + + + | Specimen | + + | Blood | + + + + + + + | Performing | Address | City/State/Zipcode | Phone Number | | Organization | | | | + + + + + | [facility] | [address] | [place] [address] | [phone] | + + + + + Comprehensive Metabolic Panel (10/10/2019 4:16 AM PDT) + + + + + + | Component | Value | Ref Range | Performed | Pathologist | | | | | At | Signature | + + + + + + | Na | 129 (L) | 135 - 145 | [facility] | | | | | mmol/L | LABORATORY | | + + + + + + | K | 3.4 (L) | 3.5 - 4.9 | [facility] | | | | | mmol/L | LABORATORY | | + + + + + + | Cl | 102 | 99 - 109 mmol/L | [facility] | | | | | | LABORATORY | | + + + + + + | CO2 | 20 (L) | 23 - 32 mmol/L | [facility] | | | | | | LABORATORY | | + + + + + + | Anion Gap | 10 | 5 - 20 mmol/L | [facility] | | | | | | LABORATORY | | + + + + + + | Glucose | 94 | 65 - 99 mg/dL | [facility] | | | | | | LABORATORY | | + + + + + + | BUN | 12 | 8 - 25 mg/dL | [facility] | | | | | | LABORATORY | | + + + + + + | Creatinine | 1.03 | 0.70 - 1.30 | [facility] | | | | | mg/dL | LABORATORY | | + + + + + + | BUN/Creatin | 12 | | [facility] | | | ine Ratio | | | LABORATORY | | + + + + + + | Calcium | 6.7 (L) | 8.5 - 10.5 | [facility] | | | | | mg/dL | LABORATORY | | + + + + + + | Protein, | 3.9 (L) | 6.3 - 8.2 g/dL | [facility] | | | Total | | | LABORATORY | | + + + + + + | Albumin | 2.4 (L) | 3.3 - 4.8 g/dL | [facility] | | | | | | LABORATORY | | + + + + + + | Globulin | 1.5 | 1.3 - 4.9 g/dL | [facility] | | | | | | LABORATORY | | + + + + + + | A/G Ratio | 1.6 | 1.0 - 2.4 | [facility] | | | | | | LABORATORY | | + + + + + + | BILIRUBIN, | 0.8 | 0.1 - 1.5 mg/dL | [facility] | | | TOTAL | | | LABORATORY | | + + + + + + | ALK PHOS | 62 | 35 - 115 U/L | [facility] | | | | | | LABORATORY | | + + + + + + | AST | 64 (H) | 10 - 45 U/L | [facility] | | | | | | LABORATORY | | + + + + + + | ALT | 31 | 10 - 65 U/L | [facility] | | | | | | LABORATORY | | + + + + + + | Estimated | >60Comment: GFR <60: | >60 | [facility] | | | GFR | CHRONIC KIDNEY DISEASE, | mL/min/1.73m2 | LABORATORY | | | | IF FOUND OVER A 3 MONTH | | | | | | PERIOD.GFR <15: KIDNEY | | | | | | FAILURE.FOR | | | | | | AMERICANS, MULTIPLY THE | | | | | | CALCULATED GFR BY | | | | | | 1.210.This eGFR is | | | | | | calculated using the | | | | | | MDRD IDMS traceable | | | | | | equation.Testing | | | | | | performed at [facility] [place] | | | | | | [facility];[place], [place] | | | | | | [address] | | | | + + + + + + + + | Specimen | + + | Blood | + + + + + + + | Performing | Address | City/State/Zipcode | Phone Number | | Organization | | | | + + + + + | [facility] | [address] | [place] [address] | [phone] | + + + + + Magnesium (10/10/2019 4:16 AM PDT) + + + + + + | Component | Value | Ref Range | Performed | Pathologist | | | | | At | Signature | + + + + + + | Magnesium | 1.8Comment: Testing | 1.7 - 2.4 mg/dL | [facility] | | | | performed at [facility] [place] | | LABORATORY | | | | [address];[place] | | | | | | [address] | | | | + + + + + + + + | Specimen | + + | Blood | + + + + + + + | Performing | Address | City/State/Zipcode | Phone Number | | Organization | | | | + + + + + | [facility] | [address] | [place] [address] | [phone] | + + + + + CBC with Differential (10/10/2019 4:16 AM PDT) + + + + + + | Component | Value | Ref Range | Performed | Pathologist | | | | | At | Signature | + + + + + + | WBC | 21.52 (H) | 3.80 - 11.00 | [facility] | | | | | K/uL | LABORATORY | | + + + + + + | Red Blood | 2.21 (L) | 4.20 - 5.70 | [facility] | | | Cells | | M/uL | LABORATORY | | + + + + + + | Hemoglobin | 7.3 (L) | 13.2 - 17.0 | [facility] | | | | | g/dL | LABORATORY | | + + + + + + | Hematocrit | 20.6 (LL)Comment: CALLED | 39.0 - 50.0 % | [facility] | | | | TO RENETTA Garcia RN/10RP AT | | LABORATORY | | | | [id number] BY MWREAD BACK | | | | | | RESULTS VERIFIED | | | | | | | | | | + + + + + + | MCV | 93.2 | 80.0 - 100.0 fl | [facility] | | | | | | LABORATORY | | + + + + + + | MCH | 33.0 | 27.0 - 34.0 pg | [facility] | | | | | | LABORATORY | | + + + + + + | MCHC | 35.4 | 32.0 - 35.5 | [facility] | | | | | g/dL | LABORATORY | | + + + + + + | RDW-SD | 51.9 | 37 - 53 fl | [facility] | | | | | | LABORATORY | | + + + + + + | Platelet | 127 (L) | 150 - 400 K/uL | [facility] | | | Count | | | LABORATORY | | + + + + + + | MPV | 10.4Comment: NO NORMAL | fl | [facility] | | | | RANGE ESTABLISHED | | LABORATORY | | + + + + + + | Diff Type | AUTOMATED | | [facility] | | | | | | LABORATORY | | + + + + + + | % nRBC | 0.1 (H) | 0 /100WBC | [facility] | | | | | | LABORATORY | | + + + + + + | % | 86.40 | % | [facility] | | | Neutrophils | | | LABORATORY | | + + + + + + | IMMATURE | 0.70 | % | [facility] | | | GRANULOCYTE | | | LABORATORY | | + + + + + + | % | 5.30 | % | [facility] | | | Lymphocytes | | | LABORATORY | | + + + + + + | Monocyte % | 7.10 | % | [facility] | | | | | | LABORATORY | | + + + + + + | Eosinophils | 0.30 | % | [facility] | | | % | | | LABORATORY | | + + + + + + | Basophils % | 0.20 | % | [facility] | | | | | | LABORATORY | | + + + + + + | Neutrophils | 18.57 (H) | 1.90 - 7.40 | [facility] | | | , Absolute | | K/uL | LABORATORY | | + + + + + + | IMMATURE | 0.16 (H)Comment: NOTE | 0.00 - 0.07 | [facility] | | | GRANS AB | NEW REFERENCE RANGE | K/uL | LABORATORY | | + + + + + + | Absolute | 1.15 | 1.00 - 3.90 | [facility] | | | Lymphocytes | | K/uL | LABORATORY | | + + + + + + | Absolute | 1.53 (H) | 0.00 - 0.80 | [facility] | | | Monocytes | | K/uL | LABORATORY | | + + + + + + | Eosinophils | 0.06 | 0.00 - 0.50 | [facility] | | | , Absolute | | K/uL | LABORATORY | | + + + + + + | Basophils, | 0.05Comment: Testing | 0.00 - 0.10 | [facility] | | | Absolute | performed at [facility] [place] | K/uL | LABORATORY | | | | [address];[place] | | | | | | [address] | | | | + + + + + + + + | Specimen | + + | Blood | + + + + + + + | Performing | Address | City/State/Zipcode | Phone Number | | Organization | | | | + + + + + | [facility] | [address] | [place] [address] | [phone] | + + + + + Lactic Acid (10/09/2019 5:12 AM PDT) + + + + + + | Component | Value | Ref Range | Performed | Pathologist | | | | | At | Signature | + + + + + + | Lactate, | 1.8Comment: Testing | 0.4 - 2.0 | [facility] | | Serum | performed at [facility] [place] | mmol/L | LABORATORY | | | | [address];[place], [place] | | | | | | [address] | | | | + + + + + + + + | Specimen | + + | Blood | + + + + + + + | Performing | Address | City/State/Zipcode | Phone Number | | Organization | | | | + + + + + | [facility] | [address] | [place] [address] | [phone] | + + + + + Comprehensive Metabolic Panel (10/09/2019 5:10 AM PDT) + + + + + + | Component | Value | Ref Range | Performed | Pathologist | | | | | At | Signature | + + + + + + | Na | 129 (L) | 135 - 145 | [facility] | | | | | mmol/L | LABORATORY | | + + + + + + | K | 3.9 | 3.5 - 4.9 | [facility] | | | | | mmol/L | LABORATORY | | + + + + + + | Cl | 102 | 99 - 109 mmol/L | [facility] | | | | | | LABORATORY | | + + + + + + | CO2 | 19 (L) | 23 - 32 mmol/L | [facility] | | | | | | LABORATORY | | + + + + + + | Anion Gap | 12 | 5 - 20 mmol/L | [facility] | | | | | | LABORATORY | | + + + + + + | Glucose | 110 (H) | 65 - 99 mg/dL | [facility] | | | | | | LABORATORY | | + + + + + + | BUN | 14 | 8 - 25 mg/dL | [facility] | | | | | | LABORATORY | | + + + + + + | Creatinine | 1.19 | 0.70 - 1.30 | [facility] | | | | | mg/dL | LABORATORY | | + + + + + + | BUN/Creatin | 12 | | [facility] | | | ine Ratio | | | LABORATORY | | + + + + + + | Calcium | 6.4 (L) | 8.5 - 10.5 | [facility] | | | | | mg/dL | LABORATORY | | + + + + + + | Protein, | 4.0 (L) | 6.3 - 8.2 g/dL | [facility] | | | Total | | | LABORATORY | | + + + + + + | Albumin | 2.4 (L) | 3.3 - 4.8 g/dL | [facility] | | | | | | LABORATORY | | + + + + + + | Globulin | 1.6 | 1.3 - 4.9 g/dL | [facility] | | | | | | LABORATORY | | + + + + + + | A/G Ratio | 1.5 | 1.0 - 2.4 | [facility] | | | | | | LABORATORY | | + + + + + + | BILIRUBIN, | 0.9 | 0.1 - 1.5 mg/dL | [facility] | | | TOTAL | | | LABORATORY | | + + + + + + | ALK PHOS | 55 | 35 - 115 U/L | [facility] | | | | | | LABORATORY | | + + + + + + | AST | 37 | 10 - 45 U/L | [facility] | | | | | | LABORATORY | | + + + + + + | ALT | 21 | 10 - 65 U/L | [facility] | | | | | | LABORATORY | | + + + + + + | Estimated | >60Comment: GFR <60: | >60 | [facility] | | | GFR | CHRONIC KIDNEY DISEASE, | mL/min/1.73m2 | LABORATORY | | | | IF FOUND OVER A 3 MONTH | | | | | | PERIOD.GFR <15: KIDNEY | | | | | | FAILURE.FOR | | | | | | AMERICANS, MULTIPLY THE | | | | | | CALCULATED GFR BY | | | | | | 1.210.This eGFR is | | | | | | calculated using the | | | | | | MDRD IDMS traceable | | | | | | equation.Testing | | | | | | performed at [facility] [place] | | | | | | [facility];[place], [place] | | | | | | [address] | | | | + + + + + + + + | Specimen | + + | Blood | + + + + + + + | Performing | Address | City/State/Zipcode | Phone Number | | Organization | | | | + + + + + | [facility] | [address] | [place] [address] | [phone] | + + + + + Procalcitonin (10/09/2019 5:10 AM PDT) + + + + + + | Component | Value | Ref Range | Performed | Pathologist | | | | | At | Signature | + + + + + + | PROCALCITON | 0.65 (H)Comment: | <0.5 ng/mL | [facility] | | | IN | INTERPRETIVE | | LABORATORY | | | | INFORMATION: | | | | | | PROCALCITONIN PCT <= | | | | | | 0.5 ng/mL: Low risk | | | | | | for progression to | | | | | | severe systemic | | | | | | bacterial infection | | | | | | (severe sepsis/septic | | | | | | shock). Does not | | | | | | exclude an infection, | | | | | | because localized | | | | | | infections may be | | | | | | associated with such low | | | | | | levels. If PCT is | | | | | | measured very early | | | | | | after bacterial | | | | | | challenge (usually <6 | | | | | | hours), results may | | | | | | still be low and | | | | | | should re-assess PCT | | | | | | 6-24 hours later. PCT | | | | | | >0.5 and <= 2 ng/mL: | | | | | | Moderate risk for | | | | | | progression to severe | | | | | | systemic infection | | | | | | (severe sepsis/septic | | | | | | shock). Other | | | | | | conditions are known | | | | | | to elevate PCT, patient | | | | | | should be closely | | | | | | monitored both | | | | | | clinically and by | | | | | | re-assessing PCT | | | | | | within 6-24 hours. PCT > | | | | | | 2 ng/mL: High | | | | | | likelihood for | | | | | | progression to severe | | | | | | systemic bacterial | | | | | | infection (severe | | | | | | sepsis/septic shock). | | | | | | PCT >= 10 ng/mL: | | | | | | High likelihood of | | | | | | severe sepsis or septic | | | | | | shock.Testing performed | | | | | | at [facility] [place] | | | | | | [address];[place] [address] | | | | + + + + + + + + | Specimen | + + | Blood | + + + + + + + | Performing | Address | City/State/Zipcode | Phone Number | | Organization | | | | + + + + + | [facility] | [address] | [place] [address] | [phone] | + + + + + Phosphorus (10/09/2019 5:10 AM PDT) + + + + + + | Component | Value | Ref Range | Performed | Pathologist | | | | | At | Signature | + + + + + + | Phosphorus | 4.0Comment: Testing | 2.3 - 4.8 mg/dL | [facility] | | | | performed at [facility] [place] | | LABORATORY | | | | [facility];[place], [place] | | | | | | [address] | | | | + + + + + + + + | Specimen | + + | Blood | + + + + + + + | Performing | Address | City/State/Zipcode | Phone Number | | Organization | | | | + + + + + | [facility] | [address] | [place] [address] | [phone] | + + + + + Magnesium (10/09/2019 5:10 AM PDT) + + + + + + | Component | Value | Ref Range | Performed | Pathologist | | | | | At | Signature | + + + + + + | Magnesium | 1.7Comment: Testing | 1.7 - 2.4 mg/dL | [facility] | | | | performed at [facility] [place] | | LABORATORY | | | | [address];[place] | | | | | | [address] | | | | + + + + + + + + | Specimen | + + | Blood | + + + + + + + | Performing | Address | City/State/Zipcode | Phone Number | | Organization | | | | + + + + + | [facility] | [address] | [place] [address] | [phone] | + + + + + CBC with Differential (10/09/2019 5:10 AM PDT) + + + + + + | Component | Value | Ref Range | Performed | Pathologist | | | | | At | Signature | + + + + + + | WBC | 24.92 (H) | 3.80 - 11.00 | [facility] | | | | | K/uL | LABORATORY | | + + + + + + | Red Blood | 2.61 (L) | 4.20 - 5.70 | [facility] | | | Cells | | M/uL | LABORATORY | | + + + + + + | Hemoglobin | 8.7 (L) | 13.2 - 17.0 | [facility] | | | | | g/dL | LABORATORY | | + + + + + + | Hematocrit | 24.2 (L) | 39.0 - 50.0 % | [facility] | | | | | | LABORATORY | | + + + + + + | MCV | 92.7 | 80.0 - 100.0 fl | [facility] | | | | | | LABORATORY | | + + + + + + | MCH | 33.3 | 27.0 - 34.0 pg | [facility] | | | | | | LABORATORY | | + + + + + + | MCHC | 36.0 (H) | 32.0 - 35.5 | [facility] | | | | | g/dL | LABORATORY | | + + + + + + | RDW-SD | 54.6 (H) | 37 - 53 fl | [facility] | | | | | | LABORATORY | | + + + + + + | Platelet | 129 (L) | 150 - 400 K/uL | [facility] | | | Count | | | LABORATORY | | + + + + + + | MPV | 11.4Comment: NO NORMAL | fl | [facility] | | | | RANGE ESTABLISHED | | LABORATORY | | + + + + + + | Diff Type | AUTOMATED | | [facility] | | | | | | LABORATORY | | + + + + + + | % nRBC | 0.0 | 0 /100WBC | [facility] | | | | | | LABORATORY | | + + + + + + | % | 81.10 | % | [facility] | | | Neutrophils | | | LABORATORY | | + + + + + + | % | 7.40 | % | [facility] | | | Lymphocytes | | | LABORATORY | | + + + + + + | Monocyte % | 10.40 | % | [facility] | | | | | | LABORATORY | | + + + + + + | Eosinophils | 0.00 | % | [facility] | | | % | | | LABORATORY | | + + + + + + | Basophils % | 0.20 | % | [facility] | | | | | | LABORATORY | | + + + + + + | IMMATURE | 0.90 | % | [facility] | | | GRANULOCYTE | | | LABORATORY | | + + + + + + | Neutrophils | 20.22 (H) | 1.90 - 7.40 | [facility] | | | , Absolute | | K/uL | LABORATORY | | + + + + + + | Absolute | 1.84 | 1.00 - 3.90 | [facility] | | | Lymphocytes | | K/uL | LABORATORY | | + + + + + + | Absolute | 2.59 (H) | 0.00 - 0.80 | [facility] | | | Monocytes | | K/uL | LABORATORY | | + + + + + + | Eosinophils | 0.00 | 0.00 - 0.50 | [facility] | | | , Absolute | | K/uL | LABORATORY | | + + + + + + | Basophils, | 0.05 | 0.00 - 0.10 | [facility] | | | Absolute | | K/uL | LABORATORY | | + + + + + + | IMMATURE | 0.22 (H) | 0.00 - 0.07 | [facility] | | | GRANS AB | | K/uL | LABORATORY | | + + + + + + | Platelet | DECREASED | | [facility] | | | Estimate | | | LABORATORY | | + + + + + + | RBC | RBC AND PLT MORPHOLOGY | | [facility] | | | Morphology | APPEAR NORMAL | | LABORATORY | | + + + + + + | Comment | SLIDE SCANNED, AGREES | | [facility] | | | | WITH AUTOMATED | | LABORATORY | | | | RESULTS.Comment: Testing | | | | | | performed at [facility] [place] | | | | | | [facility];[place], [place] | | | | | | [address] | | | | + + + + + + + + | Specimen | + + | Blood | + + + + + + + | Performing | Address | City/State/Zipcode | Phone Number | | Organization | | | | + + + + + | [facility] | [address] | [place] [address] | [phone] | + + + + + POC Glucose (10/09/2019 12:47 AM PDT) + + + + + + | Component | Value | Ref Range | Performed | Pathologist | | | | | At | Signature | + + + + + + | Glucose, | 128 (H)Comment: Testing | 65 - 99 mg/dL | [facility] | | | POC | performed at [facility] [place] | | LABORATORY | | | | [address];[place], [place] | | | | | | [address] | | | | + + + + + + + + | Specimen | + + | | + + + + + + + | Performing | Address | City/State/Zipcode | Phone Number | | Organization | | | | + + + + + | [facility] | [address] | [place] [address] | [phone] | + + + + + Phosphorus (10/08/2019 5:23 PM PDT) + + + + + + | Component | Value | Ref Range | Performed | Pathologist | | | | | At | Signature | + + + + + + | Phosphorus | 3.4Comment: Testing | 2.3 - 4.8 mg/dL | [facility] | | | | performed at [facility] [place];[address] | | LABORATORY | | | | [address];[place] | | | | | | [address] | | | | + + + + + + + + | Specimen | + + | Blood | + + + + + + + | Performing | Address | City/State/Zipcode | Phone Number | | Organization | | | | + + + + + | [facility] | [address] | [place] [address] | [phone] | + + + + + Magnesium (10/08/2019 5:23 PM PDT) + + + + + + | Component | Value | Ref Range | Performed | Pathologist | | | | | At | Signature | + + + + + + | Magnesium | 1.8Comment: Testing | 1.7 - 2.4 mg/dL | [facility] | | | | performed at [facility] [place] | | LABORATORY | | | | [address];[place] | | | | | | [address] | | | | + + + + + + + + | Specimen | + + | Blood | + + + + + + + | Performing | Address | City/State/Zipcode | Phone Number | | Organization | | | | + + + + + | [facility] | [address] | [place] [address] | [phone] | + + + + + CBC with Differential (10/08/2019 5:23 PM PDT) + + + + + + | Component | Value | Ref Range | Performed | Pathologist | | | | | At | Signature | + + + + + + | WBC | 26.78 (H) | 3.80 - 11.00 | [facility] | | | | | K/uL | LABORATORY | | + + + + + + | Red Blood | 3.17 (L) | 4.20 - 5.70 | [facility] | | | Cells | | M/uL | LABORATORY | | + + + + + + | Hemoglobin | 10.2 (L) | 13.2 - 17.0 | [facility] | | | | | g/dL | LABORATORY | | + + + + + + | Hematocrit | 29.7 (L) | 39.0 - 50.0 % | [facility] | | | | | | LABORATORY | | + + + + + + | MCV | 93.7 | 80.0 - 100.0 fl | [facility] | | | | | | LABORATORY | | + + + + + + | MCH | 32.2 | 27.0 - 34.0 pg | [facility] | | | | | | LABORATORY | | + + + + + + | MCHC | 34.3 | 32.0 - 35.5 | [facility] | | | | | g/dL | LABORATORY | | + + + + + + | RDW-SD | 54.7 (H) | 37 - 53 fl | [facility] | | | | | | LABORATORY | | + + + + + + | Platelet | 130 (L) | 150 - 400 K/uL | [facility] | | | Count | | | LABORATORY | | + + + + + + | MPV | 11.0Comment: NO NORMAL | fl | [facility] | | | | RANGE ESTABLISHED | | LABORATORY | | + + + + + + | Diff Type | MANUAL | | [facility] | | | | | | LABORATORY | | + + + + + + | % Segmented | 74 | % | [facility] | | | | | | LABORATORY | | | Neutrophils | | | | | + + + + + + | % Bands | 19 | % | [facility] | | | | | | LABORATORY | | + + + + + + | % | 2 | % | [facility] | | | Lymphocytes | | | LABORATORY | | + + + + + + | % Monocytes | 4 | % | [facility] | | | | | | LABORATORY | | + + + + + + | Basophils % | 1 | % | [facility] | | | | | | LABORATORY | | + + + + + + | Neutrophils | 19.81 (H) | 1.90 - 7.40 | [facility] | | | , Absolute | | K/uL | LABORATORY | | + + + + + + | Absolute | 5.09 (H) | 0.00 - 0.20 | [facility] | | | Band | | K/uL | LABORATORY | | | Neutrophils | | | | | + + + + + + | Absolute | 0.54 (L) | 1.00 - 3.90 | [facility] | | | Lymphocytes | | K/uL | LABORATORY | | + + + + + + | Absolute | 1.07 (H) | 0.00 - 0.80 | [facility] | | | Monocytes | | K/uL | LABORATORY | | + + + + + + | Basophils, | 0.27 (H) | 0.00 - 0.10 | [facility] | | | Absolute | | K/uL | LABORATORY | | + + + + + + | RBC | RBC AND PLT MORPHOLOGY | | [facility] | | | Morphology | APPEAR NORMALComment: | | LABORATORY | | | | Testing performed at | | | | | | [facility] [place] [place] [address] | | | | | | [facility];[place] [address] | | | | + + + + + + + + | Specimen | + + | Blood | + + + + + + + | Performing | Address | City/State/Zipcode | Phone Number | | Organization | | | | + + + + + | [facility] | [address] | [place] [address] | [phone] | + + + + + Basic Metabolic Panel (10/08/2019 5:23 PM PDT) + + + + + + | Component | Value | Ref Range | Performed | Pathologist | | | | | At | Signature | + + + + + + | Na | 133 (L) | 135 - 145 | [facility] | | | | | mmol/L | LABORATORY | | + + + + + + | K | 4.0 | 3.5 - 4.9 | [facility] | | | | | mmol/L | LABORATORY | | + + + + + + | Cl | 106 | 99 - 109 mmol/L | [facility] | | | | | | LABORATORY | | + + + + + + | CO2 | 18 (L) | 23 - 32 mmol/L | [facility] | | | | | | LABORATORY | | + + + + + + | Anion Gap | 13 | 5 - 20 mmol/L | [facility] | | | | | | LABORATORY | | + + + + + + | Glucose | 144 (H) | 65 - 99 mg/dL | [facility] | | | | | | LABORATORY | | + + + + + + | BUN | 11 | 8 - 25 mg/dL | [facility] | | | | | | LABORATORY | | + + + + + + | Creatinine | 0.69 (L) | 0.70 - 1.30 | [facility] | | | | | mg/dL | LABORATORY | | + + + + + + | BUN/Creatin | 16 | | [facility] | | | ine Ratio | | | LABORATORY | | + + + + + + | Calcium | 6.3 (L) | 8.5 - 10.5 | [facility] | | | | | mg/dL | LABORATORY | | + + + + + + | Estimated | >60Comment: GFR <60: | >60 | [facility] | | | GFR | CHRONIC KIDNEY DISEASE, | mL/min/1.73m2 | LABORATORY | | | | IF FOUND OVER A 3 MONTH | | | | | | PERIOD.GFR <15: KIDNEY | | | | | | FAILURE.FOR | | | | | | AMERICANS, MULTIPLY THE | | | | | | CALCULATED GFR BY | | | | | | 1.210.This eGFR is | | | | | | calculated using the | | | | | | MDRD [facility] traceable | | | | | | equation.Testing | | | | | | performed at [facility] [place] | | | | | | [facility];[place], [place] | | | | | | [address] | | | | + + + + + + + + | Specimen | + + | Blood | + + + + + + + | Performing | Address | City/State/Zipcode | Phone Number | | Organization | | | | + + + + + | [facility] | [address] | [place] [address] | [phone] | + + + + + PTT (10/08/2019 5:23 PM PDT) + + + + + + | Component | Value | Ref Range | Performed | Pathologist | | | | | At | Signature | + + + + + + | PTT | 32Comment: Testing | 23 - 32 seconds | [facility] | | | | performed at [facility] [place];[address] | | LABORATORY | | | | [address];[place] | | | | | | [address] | | | | + + + + + + + + | Specimen | + + | Blood | + + + + + + + | Performing | Address | City/State/Zipcode | Phone Number | | Organization | | | | + + + + + | [facility] | [address] | [place] [address] | [phone] | + + + + + POC EDWARD BRADLEY Arterial (10/08/2019 2:04 PM PDT) + + + + + + | Component | Value | Ref Range | Performed | Pathologist | | | | | At | Signature | + + + + + + | pH, | 7.291 (L) | 7.350 - 7.450 | [facility] | | | Arterial, | | | LABORATORY | | | POC | | | | | + + + + + + | pCO2, | 39 | 35 - 45 mmHg | [facility] | | | Arterial | | | LABORATORY | | + + + + + + | pO2, | 237 (HH) | 80 - 105 mmHg | [facility] | | | Arterial | | | LABORATORY | | + + + + + + | HCO3, | 19 (L) | 22 - 26 mmol/L | [facility] | | | Arterial | | | LABORATORY | | + + + + + + | TCO2, | 20 (L) | 23 - 27 mEq/L | [facility] | | | Arterial, | | | LABORATORY | | | POC | | | | | + + + + + + | POC Base | 8 (H) | 0.0 - 2.0 | [facility] | | | Deficit | | mmol/L | LABORATORY | | | mmol/L | | | | | + + + + + + | SO2, | 100 (H) | 95 - 98 % | [facility] | | | Arterial, | | | LABORATORY | | | POC | | | | | + + + + + + | Sodium, POC | 135 | 135 - 145 mEq/L | [facility] | | | | | | LABORATORY | | + + + + + + | Potassium, | 3.6 | 3.5 - 5.0 mEq/L | [facility] | | | POC | | | LABORATORY | | + + + + + + | Ionized | 0.88 (L) | 1.12 - 1.32 | [facility] | | | Calcium, | | mmol/L | LABORATORY | | | POC | | | | | + + + + + + | Glucose, | 99 | 65 - 99 mg/dL | [facility] | | | POC | | | LABORATORY | | + + + + + + | Hematocrit, | 25 (L) | 40.0 - 50.0 % | [facility] | | | POC | | | LABORATORY | | + + + + + + | Hemoglobin, | 8.5 (L)Comment: Testing | 13.7 - 16.7 | [facility] | | | POC | performed at [facility] [place] | g/dL | LABORATORY | | | | [address];[place], [place] | | | | | | [address] | | | | + + + + + + + + | Specimen | + + | | + + + + + + + | Performing | Address | City/State/Zipcode | Phone Number | | Organization | | | | + + + + + | [facility] | [address] | [place] [address] | [phone] | + + + + + POC ISTAStephon, [id number], Arterial (10/08/2019 1:22 PM PDT) + + + + + + | Component | Value | Ref Range | Performed | Pathologist | | | | | At | Signature | + + + + + + | pH, | 7.334 (L) | 7.350 - 7.450 | [facility] | | | Arterial, | | | LABORATORY | | | POC | | | | | + + + + + + | pCO2, | 39 | 35 - 45 mmHg | [facility] | | | Arterial | | | LABORATORY | | + + + + + + | pO2, | 245 (HH) | 80 - 105 mmHg | [facility] | | | Arterial | | | LABORATORY | | + + + + + + | HCO3, | 21 (L) | 22 - 26 mmol/L | [facility] | | | Arterial | | | LABORATORY | | + + + + + + | TCO2, | 22 (L) | 23 - 27 mEq/L | [facility] | | | Arterial, | | | LABORATORY | | | POC | | | | | + + + + + + | POC Base | 5 (H) | 0.0 - 2.0 | [facility] | | | Deficit | | mmol/L | LABORATORY | | | mmol/L | | | | | + + + + + + | SO2, | 100 (H) | 95 - 98 % | [facility] | | | Arterial, | | | LABORATORY | | | POC | | | | | + + + + + + | Sodium, POC | 133 (L) | 135 - 145 mEq/L | [facility] | | | | | | LABORATORY | | + + + + + + | Potassium, | 3.8 | 3.5 - 5.0 mEq/L | [facility] | | | POC | | | LABORATORY | | + + + + + + | Ionized | 0.94 (L) | 1.12 - 1.32 | [facility] | | | Calcium, | | mmol/L | LABORATORY | | | POC | | | | | + + + + + + | Glucose, | 87 | 65 - 99 mg/dL | [facility] | | | POC | | | LABORATORY | | + + + + + + | Hematocrit, | 17 (LL) | 40.0 - 50.0 % | [facility] | | | POC | | | LABORATORY | | + + + + + + | Hemoglobin, | 5.8 (LL)Comment: Testing | 13.7 - 16.7 | [facility] | | | POC | performed at [facility] [place] | g/[place] | LABORATORY | | | | [address];[place], [place] | | | | | | [address] | | | | + + + + + + + + | Specimen | + + | | + + + + + + + | Performing | Address | City/State/Zipcode | Phone Number | | Organization | | | | + + + + + | [facility] | [address] | [place] [address] | [phone] | + + + + + Basic Metabolic Panel (10/08/2019 5:44 AM PDT) + + + + + + | Component | Value | Ref Range | Performed | Pathologist | | | | | At | Signature | + + + + + + | Na | 134 (L) | 135 - 145 | [facility] | | | | | mmol/L | LABORATORY | | + + + + + + | K | 4.2 | 3.5 - 4.9 | [facility] | | | | | mmol/L | LABORATORY | | + + + + + + | Cl | 105 | 99 - 109 mmol/L | [facility] | | | | | | LABORATORY | | + + + + + + | CO2 | 21 (L) | 23 - 32 mmol/L | [facility] | | | | | | LABORATORY | | + + + + + + | Anion Gap | 12 | 5 - 20 mmol/L | [facility] | | | | | | LABORATORY | | + + + + + + | Glucose | 109 (H) | 65 - 99 mg/dL | [facility] | | | | | | LABORATORY | | + + + + + + | BUN | 12 | 8 - 25 mg/dL | [facility] | | | | | | LABORATORY | | + + + + + + | Creatinine | 1.00 | 0.70 - 1.30 | [facility] | | | | | mg/dL | LABORATORY | | + + + + + + | BUN/Creatin | 12 | | [facility] | | | ine Ratio | | | LABORATORY | | + + + + + + | Calcium | 7.2 (L) | 8.5 - 10.5 | [facility] | | | | | mg/dL | LABORATORY | | + + + + + + | Estimated | >60Comment: GFR <60: | >60 | [facility] | | | GFR | CHRONIC KIDNEY DISEASE, | mL/min/1.73m2 | LABORATORY | | | | IF FOUND OVER A 3 MONTH | | | | | | PERIOD.GFR <15: KIDNEY | | | | | | FAILURE.FOR | | | | | | AMERICANS, MULTIPLY THE | | | | | | CALCULATED GFR BY | | | | | | 1.210.This eGFR is | | | | | | calculated using the | | | | | | MDRD IDMS traceable | | | | | | equation.Testing | | | | | | performed at [facility], [address] | | | | | [facility], | | | | | | [place] [address] | | | | + + + + + + + + | Specimen | + + | Blood | + + + + + + + | Performing | Address | City/State/Zipcode | Phone Number | | Organization | | | | + + + + + | [facility] | [address] | [place] [address] | [phone] | + + + + + CBC with Differential (10/08/2019 5:44 AM PDT) + + + + + + | Component | Value | Ref Range | Performed | Pathologist | | | | | At | Signature | + + + + + + | WBC | 17.81 (H) | 3.80 - 11.00 | [facility] | | | | | K/uL | LABORATORY | | + + + + + + | Red Blood | 2.79 (L) | 4.20 - 5.70 | [facility] | | | Cells | | M/uL | LABORATORY | | + + + + + + | Hemoglobin | 9.5 (L) | 13.2 - 17.0 | [facility] | | | | | g/dL | LABORATORY | | + + + + + + | Hematocrit | 27.4 (L) | 39.0 - 50.0 % | [facility] | | | | | | LABORATORY | | + + + + + + | MCV | 98.2 | 80.0 - 100.0 fl | [facility] | | | | | | LABORATORY | | + + + + + + | MCH | 34.1 (H) | 27.0 - 34.0 pg | [facility] | | | | | | LABORATORY | | + + + + + + | MCHC | 34.7 | 32.0 - 35.5 | [facility] | | | | | g/dL | LABORATORY | | + + + + + + | RDW-SD | 56.7 (H) | 37 - 53 fl | [facility] | | | | | | LABORATORY | | + + + + + + | Platelet | 128 (L) | 150 - 400 K/uL | [facility] | | | Count | | | LABORATORY | | + + + + + + | MPV | 11.7Comment: NO NORMAL | fl | [facility] | | | | RANGE ESTABLISHED | | LABORATORY | | + + + + + + | Diff Type | AUTOMATED | | [facility] | | | | | | LABORATORY | | + + + + + + | % nRBC | 0.0 | 0 /100WBC | [facility] | | | | | | LABORATORY | | + + + + + + | % | 79.60 | % | [facility] | | | Neutrophils | | | LABORATORY | | + + + + + + | IMMATURE | 1.10 | % | [facility] | | | GRANULOCYTE | | | LABORATORY | | + + + + + + | % | 8.70 | % | [facility] | | | Lymphocytes | | | LABORATORY | | + + + + + + | Monocyte % | 10.00 | % | [facility] | | | | | | LABORATORY | | + + + + + + | Eosinophils | 0.20 | % | [facility] | | | % | | | LABORATORY | | + + + + + + | Basophils % | 0.40 | % | [facility] | | | | | | LABORATORY | | + + + + + + | Neutrophils | 14.18 (H) | 1.90 - 7.40 | [facility] | | | , Absolute | | K/uL | LABORATORY | | + + + + + + | IMMATURE | 0.19 (H)Comment: NOTE | 0.00 - 0.07 | [facility] | | | GRANS AB | NEW REFERENCE RANGE | K/uL | LABORATORY | | + + + + + + | Absolute | 1.55 | 1.00 - 3.90 | [facility] | | | Lymphocytes | | K/uL | LABORATORY | | + + + + + + | Absolute | 1.78 (H) | 0.00 - 0.80 | [facility] | | | Monocytes | | K/uL | LABORATORY | | + + + + + + | Eosinophils | 0.03 | 0.00 - 0.50 | [facility] | | | , Absolute | | K/uL | LABORATORY | | + + + + + + | Basophils, | 0.08Comment: Testing | 0.00 - 0.10 | [facility] | | | Absolute | performed at [facility], [address] | K/uL | LABORATORY | | | | [address], | | | | | | [place] [address] | | | | + + + + + + + + | Specimen | + + | Blood | + + + + + + + | Performing | Address | City/State/Zipcode | Phone Number | | Organization | | | | + + + + + | [facility] | [address] | [place] [address] | [phone] | + + + + + Magnesium (10/08/2019 5:44 AM PDT) + + + + + + | Component | Value | Ref Range | Performed | Pathologist | | | | | At | Signature | + + + + + + | Magnesium | 1.6 (L)Comment: Testing | 1.7 - 2.4 mg/dL | [facility] | | | | performed at [facility] | | LABORATORY | | | | [address];[place], [place] | | | | | | [address] | | | | + + + + + + + + | Specimen | + + | Blood | + + + + + + + | Performing | Address | City/State/Zipcode | Phone Number | | Organization | | | | + + + + + | [facility] | [address] | [place] [address] | [phone] | + + + + + PTT (10/07/2019 5:21 PM PDT) + + + + + + | Component | Value | Ref Range | Performed | Pathologist | | | | | At | Signature | + + + + + + | PTT | 28Comment: Testing | 23 - 32 seconds | [facility] | | | | performed at [facility];[address] | | LABORATORY | | | | [address];[place] | | | | | | [address] | | | | + + + + + + + + | Specimen | + + | Blood - Artery, | | Radial, Right | + + + + + + + | Performing | Address | City/State/Zipcode | Phone Number | | Organization | | | | + + + + + | [facility] | [address] | [place] [address] | [phone] | + + + + + Protime INR (10/07/2019 5:21 PM PDT) + + + + + + | Component | Value | Ref Range | Performed | Pathologist | | | | | At | Signature | + + + + + + | INR | 1.3Comment: REFERENCE | | [facility] | | | | RANGE:0.9 - 1.2 | | LABORATORY | | | | NON-ANTICOAGULATED2.0 | | | | | | - 3.0 ALL OTHER | | | | | | THERAPEUTIC | | | | | | INDICATIONS2.5 - 3.5 | | | | | | MECHANICAL HEART VALVES, | | | | | | RECURRENT OR SYSTEMIC | | | | | | EMBOLISMTesting | | | | | | performed at [facility] | | | | | | [facility];[place], [place] | | | | | | [address] | | | | + + + + + + + + | Specimen | + + | Blood - Artery, | | Radial, Right | + + + + + + + | Performing | Address | City/State/Zipcode | Phone Number | | Organization | | | | + + + + + | [facility] | [address] | [place] [address] | [phone] | + + + + + Basic Metabolic Panel (10/07/2019 5:21 PM PDT) + + + + + + | Component | Value | Ref Range | Performed | Pathologist | | | | | At | Signature | + + + + + + | Na | 137 | 135 - 145 | [facility] | | | | | mmol/L | LABORATORY | | + + + + + + | K | 4.4 | 3.5 - 4.9 | [facility] | | | | | mmol/L | LABORATORY | | + + + + + + | Cl | 109 | 99 - 109 mmol/L | [facility] | | | | | | LABORATORY | | + + + + + + | CO2 | 21 (L) | 23 - 32 mmol/L | [facility] | | | | | | LABORATORY | | + + + + + + | Anion Gap | 11 | 5 - 20 mmol/L | [facility] | | | | | | LABORATORY | | + + + + + + | Glucose | 126 (H) | 65 - 99 mg/dL | [facility] | | | | | | LABORATORY | | + + + + + + | BUN | 8 | 8 - 25 mg/dL | [facility] | | | | | | LABORATORY | | + + + + + + | Creatinine | 0.68 (L) | 0.70 - 1.30 | [facility] | | | | | mg/dL | LABORATORY | | + + + + + + | BUN/Creatin | 12 | | [facility] | | | ine Ratio | | | LABORATORY | | + + + + + + | Calcium | 7.0 (L) | 8.5 - 10.5 | [facility] | | | | | mg/dL | LABORATORY | | + + + + + + | Estimated | >60Comment: GFR <60: | >60 | [facility] | | | GFR | CHRONIC KIDNEY DISEASE, | mL/min/1.73m2 | LABORATORY | | | | IF FOUND OVER A 3 MONTH | | | | | | PERIOD.GFR <15: KIDNEY | | | | | | FAILURE.FOR | | | | | | AMERICANS, MULTIPLY THE | | | | | | CALCULATED GFR BY | | | | | | 1.210.This eGFR is | | | | | | calculated using the | | | | | | MDRD IDMS traceable | | | | | | equation.Testing | | | | | | performed at [facility];[address] | | | | | | [facility];[place], [place] | | | | | | [address] | | | | + + + + + + + + | Specimen | + + | Blood - Artery, | | Radial, Right | + + + + + + + | Performing | Address | City/State/Zipcode | Phone Number | | Organization | | | | + + + + + | [facility] | [address] [facility] | [place] [address] | [phone] | + + + + + CBC no Differential (10/07/2019 5:20 PM PDT) + + + + + + | Component | Value | Ref Range | Performed | Pathologist | | | | | At | Signature | + + + + + + | WBC | 18.93 (H) | 3.80 - 11.00 | [facility] | | | | | K/uL | LABORATORY | | + + + + + + | Red Blood | 3.18 (L) | 4.20 - 5.70 | [facility] | | | Cells | | M/uL | LABORATORY | | + + + + + + | Hemoglobin | 10.6 (L) | 13.2 - 17.0 | [facility] | | | | | g/dL | LABORATORY | | + + + + + + | Hematocrit | 31.4 (L) | 39.0 - 50.0 % | [facility] | | | | | | LABORATORY | | + + + + + + | MCV | 98.7 | 80.0 - 100.0 fl | [facility] | | | | | | LABORATORY | | + + + + + + | MCH | 33.3 | 27.0 - 34.0 pg | [facility] | | | | | | LABORATORY | | + + + + + + | MCHC | 33.8 | 32.0 - 35.5 | [facility] | | | | | g/dL | LABORATORY | | + + + + + + | RDW-SD | 58.3 (H) | 37 - 53 fl | [facility] | | | | | | LABORATORY | | + + + + + + | Platelet | 154 | 150 - 400 K/uL | [facility] | | | Count | | | LABORATORY | | + + + + + + | MPV | 10.6Comment: NO NORMAL | fl | [facility] | | | | RANGE ESTABLISHEDTesting | | LABORATORY | | | | performed at [facility];[address] | | | | | | [address];[place] | | | | | | [address] | | | | + + + + + + + + | Specimen | + + | Blood - Right upper | | arm structure (body | | structure) | + + + + + + + | Performing | Address | City/State/Zipcode | Phone Number | | Organization | | | | + + + + + | [facility] | [address] | [place] [address] | [phone] | + + + + + Surgical Pathology Exam (10/07/2019 2:27 PM PDT) + + | Specimen | + + | Tissue - Entire | | right lower leg | | (body structure) | + + + + + | Narrative | Performed At | + + + | SPECIMEN(S): A | [facility] | | AORTIC LIMB OF AORTA BY FEM SPECIMEN SOURCE:A. AORTIC LIMB OF AORTA | [facility] | | BY FEM / CLINICAL HISTORY:I72.9 (aneurysm of unspecified site) FINAL | | | PATHOLOGIC DIAGNOSIS:Pseudo-aneurysmal tissue, resection:- Synthetic | | | tubular mesh with attached fibrin, focal hemorrhage and inflammation | | | including foreign body giant cell reaction. AMB:emh:C2NR MICROSCOPIC | | | EXAMINATION:Histologic sections of all submitted blocks are examined | | | by light microscopy. These findings, together with the gross | | | examination, support the pathologic diagnosis. 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 Seam Presser sections are submitted in | | | onecassette (A1).AI (under the direct supervision of a pathologist) | | | The Gross Description was prepared using a voice recognition system. | | | The report was reviewed for accuracy; however, sound-alike word | | | errors, addition and/or deletions may occur. If there is anyquestion | | | about this report, please contact Client Services. PERFORMING | | | LABORATORY:The technical component was performed by [facility] | | | [employer], [address] [place] [address] (Ecommerce Marketing Manager: | | | Asia Rodriguez MD; CLIA# [id number]).Professional interpretation was | | | performed by [facility] [place] [address] | | | [place] [address] (Ecommerce Marketing Manager: Sol[employer] | | | Jacky Recio; CLIA#: [id number]). Diagnostician: Asia Rodriguez | | | MDPathologistElectronically Signed 10/10/2019 | | | | | |PERFORMING LABORATORY: | | |The technical component was performed by [facility], [address] [place] [address] (Ecommerce Marketing Manager: Asia Rodriguez MD; CLIA# [id number]). | | |Professional interpretation was [facility] by [facility], [address] [place] [id number] (Ecommerce Marketing Manager: Solitario Recio M.D.; CLIA#: [id number]). | | | | | |Diagnostician: Asia Rodriguez MD | | |Pathologist | | |Electronically Signed 10/10/2019 | | | | | | | | + + + + +---------+ + + | Performing | Address | City/State/Zipcode | Phone Number | | Organization | | | | + +---------+ + + | [facility] | | | | | [facility] | | | | + +---------+ + + POC ISTAT, CG8, Arterial (10/07/2019 2:04 PM PDT) + + + + + + | Component | Value | Ref Range | Performed | Pathologist | | | | | At | Signature | + + + + + + | pH, | 7.323 (L) | 7.350 - 7.450 | [facility] | | | Arterial, | | | LABORATORY | | | POC | | | | | + + + + + + | pCO2, | 40 | 35 - 45 mmHg | [facility] | | | Arterial | | | LABORATORY | | + + + + + + | pO2, | 234 (HH) | 80 - 105 mmHg | [facility] | | | Arterial | | | LABORATORY | | + + + + + + | HCO3, | 21 (L) | 22 - 26 mmol/L | [facility] | | | Arterial | | | LABORATORY | | + + + + + + | TCO2, | 22 (L) | 23 - 27 mEq/L | [facility] | | | Arterial, | | | LABORATORY | | | POC | | | | | + + + + + + | POC Base | 5 (H) | 0.0 - 2.0 | [facility] | | | Deficit | | mmol/L | LABORATORY | | | mmol/L | | | | | + + + + + + | SO2, | 100 (H) | 95 - 98 % | [facility] | | | Arterial, | | | LABORATORY | | | POC | | | | | + + + + + + | Sodium, POC | 138 | 135 - 145 mEq/L | [facility] | | | | | | LABORATORY | | + + + + + + | Potassium, | 3.9 | 3.5 - 5.0 mEq/L | [facility] | | | POC | | | LABORATORY | | + + + + + + | Ionized | 1.13 | 1.12 - 1.32 | [facility] | | | Calcium, | | mmol/L | LABORATORY | | | POC | | | | | + + + + + + | Glucose, | 116 (H) | 65 - 99 mg/dL | [facility] | | | POC | | | LABORATORY | | + + + + + + | Hematocrit, | 36 (L) | 40.0 - 50.0 % | [facility] | | | POC | | | LABORATORY | | + + + + + + | Hemoglobin, | 12.2 (L)Comment: Testing | 13.7 - 16.7 | [facility] | | | POC | performed at [facility] | g/dL | LABORATORY | | | | [address];[place], [place] | | | | | | [address] | | | | + + + + + + + + | Specimen | + + | | + + + + + + + | Performing | Address | City/State/Zipcode | Phone Number | | Organization | | | | + + + + + | [facility] | [address] | [place] [address] | [phone] | + + + + + Red Blood Cells (PRBC) - Crossmatch and Hold (10/07/2019 1:03 PM PDT) + + + + + + | Component | Value | Ref Range | Performed | Pathologist | | | | | At | Signature | + + + + + + | Product | RED CELL GROUP | | [facility] | | | Code | | | LABORATORY | | + + + + + + | Units | 2 | | [facility] | | | ordered | | | LABORATORY | | + + + + + + | BLOOD BANK | ORDER RECEIVED IN BLOOD | | [facility] | | | COMMENT | BANK. | | LABORATORY | | + + + + + + | BLOOD BANK | Testing performed at | | [facility] | | | COMMENT | [facility];[address] [facility] | | LABORATORY | | | | [address]vd;[place] [address] | | | | + + + + + + + + | Specimen | + + | | + + + + + + + | Performing | Address | City/State/Zipcode | Phone Number | | Organization | | | | + + + + + | [facility] | [address] | [place] [address] | [phone] | + + + + + POC ISTAT, CG8, Arterial (10/07/2019 12:37 PM PDT) + + + + + + | Component | Value | Ref Range | Performed | Pathologist | | | | | At | Signature | + + + + + + | pH, | 7.326 (L) | 7.350 - 7.450 | [facility] | | | Arterial, | | | LABORATORY | | | POC | | | | | + + + + + + | pCO2, | 41 | 35 - 45 mmHg | [facility] | | | Arterial | | | LABORATORY | | + + + + + + | pO2, | 221 (HH) | 80 - 105 mmHg | [facility] | | | Arterial | | | LABORATORY | | + + + + + + | HCO3, | 21 (L) | 22 - 26 mmol/L | [facility] | | | Arterial | | | LABORATORY | | + + + + + + | TCO2, | 22 (L) | 23 - 27 mEq/L | [facility] | | | Arterial, | | | LABORATORY | | | POC | | | | | + + + + + + | POC Base | 5 (H) | 0.0 - 2.0 | [facility] | | | Deficit | | mmol/L | LABORATORY | | | mmol/L | | | | | + + + + + + | SO2, | 100 (H) | 95 - 98 % | [facility] | | | Arterial, | | | LABORATORY | | | POC | | | | | + + + + + + | Sodium, POC | 137 | 135 - 145 mEq/L | [facility] | | | | | | LABORATORY | | + + + + + + | Potassium, | 3.8 | 3.5 - 5.0 mEq/L | [facility] | | | POC | | | LABORATORY | | + + + + + + | Ionized | 1.21 | 1.12 - 1.32 | [facility] | | | Calcium, | | mmol/L | LABORATORY | | | POC | | | | | + + + + + + | Glucose, | 108 (H) | 65 - 99 mg/dL | [facility] | | | POC | | | LABORATORY | | + + + + + + | Hematocrit, | 32 (L) | 40.0 - 50.0 % | [facility] | | | POC | | | LABORATORY | | + + + + + + | Hemoglobin, | 10.9 (L)Comment: Testing | 13.7 - 16.7 | [facility] | | | POC | performed at [facility] | g/dL | LABORATORY | | | | [address];[place], [place] | | | | | | [address] | | | | + + + + + + + + | Specimen | + + | | + + + + + + + | Performing | Address | City/State/Zipcode | Phone Number | | Organization | | | | + + + + + | [facility] | [address] | [place] [address] | [phone] | + + + + + POC ISTAT, CG8, Arterial (10/07/2019 10:47 AM PDT) + + + + + + | Component | Value | Ref Range | Performed | Pathologist | | | | | At | Signature | + + + + + + | pH, | 7.334 (L) | 7.350 - 7.450 | [facility] | | | Arterial, | | | LABORATORY | | | POC | | | | | + + + + + + | pCO2, | 39 | 35 - 45 mmHg | [facility] | | | Arterial | | | LABORATORY | | + + + + + + | pO2, | 214 (HH) | 80 - 105 mmHg | [facility] | | | Arterial | | | LABORATORY | | + + + + + + | HCO3, | 20 (L) | 22 - 26 mmol/L | [facility] | | | Arterial | | | LABORATORY | | + + + + + + | TCO2, | 22 (L) | 23 - 27 mEq/L | [facility] | | | Arterial, | | | LABORATORY | | | POC | | | | | + + + + + + | POC Base | 5 (H) | 0.0 - 2.0 | [facility] | | | Deficit | | mmol/L | LABORATORY | | | mmol/L | | | | | + + + + + + | SO2, | 100 (H) | 95 - 98 % | [facility] | | | Arterial, | | | LABORATORY | | | POC | | | | | + + + + + + | Sodium, POC | 138 | 135 - 145 mEq/L | [facility] | | | | | | LABORATORY | | + + + + + + | Potassium, | 3.6 | 3.5 - 5.0 mEq/L | [facility] | | | POC | | | LABORATORY | | + + + + + + | Ionized | 1.03 (L) | 1.12 - 1.32 | [facility] | | | Calcium, | | mmol/L | LABORATORY | | | POC | | | | | + + + + + + | Glucose, | 111 (H) | 65 - 99 mg/dL | [facility] | | | POC | | | LABORATORY | | + + + + + + | Hematocrit, | 36 (L) | 40.0 - 50.0 % | [facility] | | | POC | | | LABORATORY | | + + + + + + | Hemoglobin, | 12.2 (L)Comment: Testing | 13.7 - 16.7 | [facility] | | | POC | performed at [facility] | g/dL | LABORATORY | | | | [address];[place], [place] | | | | | | [address] | | | | + + + + + + + + | Specimen | + + | | + + + + + + + | Performing | Address | City/State/Zipcode | Phone Number | | Organization | | | | + + + + + | [facility] | [address] | [place] [address] | [phone] | + + + + + POC SCOTT [id number], Arterial (10/07/2019 8:40 AM PDT) + + + + + + | Component | Value | Ref Range | Performed | Pathologist | | | | | At | Signature | + + + + + + | pH, | 7.314 (L) | 7.350 - 7.450 | [facility] | | | Arterial, | | | LABORATORY | | | POC | | | | | + + + + + + | pCO2, | 44 | 35 - 45 mmHg | [facility] | | | Arterial | | | LABORATORY | | + + + + + + | pO2, | 183 (H) | 80 - 105 mmHg | [facility] | | | Arterial | | | LABORATORY | | + + + + + + | HCO3, | 22 | 22 - 26 mmol/L | [facility] | | | Arterial | | | LABORATORY | | + + + + + + | TCO2, | 24 | 23 - 27 mEq/L | [facility] | | | Arterial, | | | LABORATORY | | | POC | | | | | + + + + + + | POC Base | 4 (H) | 0.0 - 2.0 | [facility] | | | Deficit | | mmol/L | LABORATORY | | | mmol/L | | | | | + + + + + + | SO2, | 100 (H) | 95 - 98 % | [facility] | | | Arterial, | | | LABORATORY | | | POC | | | | | + + + + + + | Sodium, POC | 136 | 135 - 145 mEq/L | [facility] | | | | | | LABORATORY | | + + + + + + | Potassium, | 4.1 | 3.5 - 5.0 mEq/L | [facility] | | | POC | | | LABORATORY | | + + + + + + | Ionized | 1.13 | 1.12 - 1.32 | [facility] | | | Calcium, | | mmol/L | LABORATORY | | | POC | | | | | + + + + + + | Glucose, | 130 (H) | 65 - 99 mg/dL | [facility] | | | POC | | | LABORATORY | | + + + + + + | Hematocrit, | 42 | 40.0 - 50.0 % | [facility] | | | POC | | | LABORATORY | | + + + + + + | Hemoglobin, | 14.3Comment: Testing | 13.7 - 16.7 | [facility] | | | POC | performed at [facility] | g/dL | LABORATORY | | | | [address];[place] | | | | | | [address] | | | | + + + + + + + + | Specimen | + + | | + + + + + + + | Performing | Address | City/State/Zipcode | Phone Number | | Organization | | | | + + + + + | [facility] | [address] | [place] [address] | [phone] | + + + + + Red Blood Cells (PRBC) - Crossmatch and Hold (10/07/2019 6:30 AM PDT) + + + + + + | Component | Value | Ref Range | Performed | Pathologist | | | | | At | Signature | + + + + + + | Product | [facility] | | [facility] | | | Code | | | LABORATORY | | + + + + + + | Units | 2 | | [facility] | | | ordered | | | LABORATORY | | + + + + + + | BLOOD BANK | ORDER RECEIVED IN BLOOD | | [facility] | | | COMMENT | BANK. | | LABORATORY | | + + + + + + | BLOOD BANK | Testing performed at | | [facility] | | | COMMENT | [facility] [place] | | LABORATORY | | | | [place] [address] | | | | + + + + + + + + | Specimen | + + | | + + + + + + + | Performing | Address | City/State/Zipcode | Phone Number | | Organization | | | | + + + + + | [facility] | [address] | [place] [address] | [phone] | + + + + + Magnesium (10/07/2019 3:55 AM PDT) + + + + + + | Component | Value | Ref Range | Performed | Pathologist | | | | | At | Signature | + + + + + + | Magnesium | 1.6 (L)Comment: Testing | 1.7 - 2.4 mg/dL | [facility] | | | | [place] at [facility] [place] | | LABORATORY | | | | [facility];[place], [place] | | | | | | [address] | | | | + + + + + + + + | Specimen | + + | Blood | + + + + + + + | Performing | Address | City/State/Zipcode | Phone Number | | Organization | | | | + + + + + | [facility] | [address] | [place] [address] | [phone] | + + + + + Type and Screen (10/07/2019 3:55 AM PDT) + + + + + + | Component | Value | Ref Range | Performed | Pathologist | | | | | At | Signature | + + + + + + | ABO Rh | A POSITIVE | | [facility] | | | | | | LABORATORY | | + + + + + + | Antibody | NEGATIVE | | [facility] | | | Screen | | | LABORATORY | | + + + + + + | BB BAND | [address] | | [facility] | | | | | | LABORATORY | | + + + + + + | UNIT # | [id number] | | [facility] | | | | | | LABORATORY | | + + + + + + | Product | [employer]UKODE[employer] | | [facility] | | | Code | | | LABORATORY | | + + + + + + | Unit | 00 | | [facility] | | | Division | | | LABORATORY | | + + + + + + | Unit Status | ISSUED,FINAL | | [facility] | | | | | | LABORATORY | | + + + + + + | Transfusion | OK TO TRANSFUSE | | [facility] | | | Status | | | LABORATORY | | + + + + + + | CROSSMATCH | COMPATIBLE | | [facility] | | | RESULT | | | LABORATORY | | + + + + + + | UNIT # | [id number] | | [facility] | | | | | | LABORATORY | | + + + + + + | Product | LEUKODEPLETED PC | | [facility] | | | Code | | | LABORATORY | | + + + + + + | Unit | 00 | | [facility] | | | Division | | | LABORATORY | | + + + + + + | Unit Status | ISSUED,FINAL | | [facility] | | | | | | LABORATORY | | + + + + + + | Transfusion | OK TO TRANSFUSE | | [facility] | | | Status | | | LABORATORY | | + + + + + + | CROSSMATCH | COMPATIBLE | | [facility] | | | RESULT | | | LABORATORY | | + + + + + + | UNIT # | [id number] | | [facility] | | | | | | LABORATORY | | + + + + + + | Product | LE[employer]KODEPLET[employer] | | [facility] | | | Code | | | LABORATORY | | + + + + + + | Unit | 00 | | [facility] | | | Division | | | LABORATORY | | + + + + + + | Unit Status | ISSUED,FINAL | | [facility] | | | | | | LABORATORY | | + + + + + + | Transfusion | OK TO TRANSFUSE | | [facility] | | | Status | | | LABORATORY | | + + + + + + | CROSSMATCH | COMPATIBLE | | [facility] | | | RESULT | | | LABORATORY | | + + + + + + | UNIT # | [id number] | | [facility] | | | | | | LABORATORY | | + + + + + + | Product | LEUKODEPLETED PC | | [facility] | | | Code | | | LABORATORY | | + + + + + + | Unit | 00 | | [facility] | | | Division | | | LABORATORY | | + + + + + + | Unit Status | ISSUED,FINAL | | [facility] | | | | | | LABORATORY | | + + + + + + | Transfusion | OK TO TRANSFUSE | | [facility] | | | Status | | | LABORATORY | | + + + + + + | CROSSMATCH | COMPATIBLETesting | | JUAN M | | | RESULT | performed [place] [facility] [place] | | LABORATORY | | | | [address];[place], [place] | | | | | | [address] | | | | + + + + + + + + | Specimen | + + | Blood | + + + + + + + | Performing | Address | City/State/Zipcode | Phone Number | | Organization | | | | + + + + + | [facility] | [address] | [place] [address] | [phone] | + + + + + Basic Metabolic Panel (10/07/2019 3:55 AM PDT) + + + + + + | Component | Value | Ref Range | Performed | Pathologist | | | | | At | Signature | + + + + + + | Na | 134 (L) | 135 - 145 | [facility] | | | | | mmol/L | LABORATORY | | + + + + + + | K | 4.1 | 3.5 - 4.9 | [facility] | | | | | mmol/L | LABORATORY | | + + + + + + | Cl | 103 | 99 - 109 mmol/L | [facility] | | | | | | LABORATORY | | + + + + + + | CO2 | 26 | 23 - 32 mmol/L | [facility] | | | | | | LABORATORY | | + + + + + + | Anion Gap | 9 | 5 - 20 mmol/L | [facility] | | | | | | LABORATORY | | + + + + + + | Glucose | 98 | 65 - 99 mg/dL | [facility] | | | | | | LABORATORY | | + + + + + + | BUN | 13 | 8 - 25 mg/dL | [facility] | | | | | | LABORATORY | | + + + + + + | Creatinine | 0.81 | 0.70 - 1.30 | [facility] | | | | | mg/dL | LABORATORY | | + + + + + + | BUN/Creatin | 16 | | [facility] | | | ine Ratio | | | LABORATORY | | + + + + + + | Calcium | 9.2 | 8.5 - 10.5 | [facility] | | | | | mg/dL | LABORATORY | | + + + + + + | Estimated | >60Comment: GFR <60: | >60 | [facility] | | | GFR | CHRONIC KIDNEY DISEASE, | mL/min/1.73m2 | LABORATORY | | | | IF FOUND OVER A 3 MONTH | | | | | | PERIOD.GFR <15: KIDNEY | | | | | | FAILURE.FOR | | | | | | AMERICANS, MULTIPLY THE | | | | | | CALCULATED GFR BY | | | | | | 1.210.This eGFR is | | | | | | calculated using the | | | | | | MDRD IDMS traceable | | | | | | equation.Testing | | | | | | performed at [facility] [place] | | | | | | [facility];[place], [place] | | | | | | [address] | | | | + + + + + + + + | Specimen | + + | Blood | + + + + + + + | Performing | Address | City/State/Zipcode | Phone Number | | Organization | | | | + + + + + | [facility] | [address] | [place] [address] | [phone] | + + + + + CBC with Differential (10/07/2019 3:55 AM PDT) + + + + + + | Component | Value | Ref Range | Performed | Pathologist | | | | | At | Signature | + + + + + + | WBC | 9.34 | 3.80 - 11.00 | [facility] | | | | | K/uL | LABORATORY | | + + + + + + | Red Blood | 3.86 (L) | 4.20 - 5.70 | [facility] | | | Cells | | M/uL | LABORATORY | | + + + + + + | Hemoglobin | 13.8 | 13.2 - 17.0 | [facility] | | | | | g/dL | LABORATORY | | + + + + + + | Hematocrit | 39.8 | 39.0 - 50.0 % | [facility] | | | | | | LABORATORY | | + + + + + + | MCV | 103.1 (H) | 80.0 - 100.0 fl | [facility] | | | | | | LABORATORY | | + + + + + + | MCH | 35.8 (H) | 27.0 - 34.0 pg | [facility] | | | | | | LABORATORY | | + + + + + + | MCHC | 34.7 | 32.0 - 35.5 | [facility] | | | | | g/dL | LABORATORY | | + + + + + + | RDW-SD | 48.6 | 37 - 53 fl | [facility] | | | | | | LABORATORY | | + + + + + + | Platelet | 156 | 150 - 400 K/uL | [facility] | | | Count | | | LABORATORY | | + + + + + + | MPV | 10.2Comment: NO NORMAL | fl | [facility] | | | | RANGE ESTABLISHED | | LABORATORY | | + + + + + + | Diff Type | AUTOMATED | | [facility] | | | | | | LABORATORY | | + + + + + + | % nRBC | 0.0 | 0 /100WBC | [facility] | | | | | | LABORATORY | | + + + + + + | % | 68.80 | % | [facility] | | | Neutrophils | | | LABORATORY | | + + + + + + | IMMATURE | 0.60 | % | [facility] | | | GRANULOCYTE | | | LABORATORY | | + + + + + + | % | 17.30 | % | [facility] | | | Lymphocytes | | | LABORATORY | | + + + + + + | Monocyte % | 9.50 | % | [facility] | | | | | | LABORATORY | | + + + + + + | Eosinophils | 3.10 | % | [facility] | | | % | | | LABORATORY | | + + + + + + | Basophils % | 0.70 | % | [facility] | | | | | | LABORATORY | | + + + + + + | Neutrophils | 6.41 | 1.90 - 7.40 | [facility] | | | , Absolute | | K/uL | LABORATORY | | + + + + + + | IMMATURE | 0.06Comment: NOTE NEW | 0.00 - 0.07 | [facility] | | | GRANS AB | REFERENCE RANGE | K/uL | LABORATORY | | + + + + + + | Absolute | 1.62 | 1.00 - 3.90 | [facility] | | | Lymphocytes | | K/uL | LABORATORY | | + + + + + + | Absolute | 0.89 (H) | 0.00 - 0.80 | [facility] | | | Monocytes | | K/uL | LABORATORY | | + + + + + + | Eosinophils | 0.29 | 0.00 - 0.50 | [facility] | | | , Absolute | | K/uL | LABORATORY | | + + + + + + | Basophils, | 0.07Comment: Testing | 0.00 - 0.10 | [facility] | | | Absolute | performed at [facility] [place] | K/uL | LABORATORY | | | | [address];[place], [place] | | | | | | [address] | | | | + + + + + + + + | Specimen | + + | Blood | + + + + + + + | Performing | Address | City/State/Zipcode | Phone Number | | Organization | | | | + + + + + | [facility] | [address] | [place] [address] | [phone] | + + + + + Magnesium (10/06/2019 6:27 AM PDT) + + + + + + | Component | Value | Ref Range | Performed | Pathologist | | | | | At | Signature | + + + + + + | Magnesium | 1.6 (L)Comment: Testing | 1.7 - 2.4 mg/dL | [facility] | | | | performed at [facility] [place] | | LABORATORY | | | | [address];[place] | | | | | | [address] | | | | + + + + + + + + | Specimen | + + | Blood | + + + + + + + | Performing | Address | City/State/Zipcode | Phone Number | | Organization | | | | + + + + + | [facility] | [address] | [place] [address] | [phone] | + + + + + Basic Metabolic Panel (10/06/2019 6:27 AM PDT) + + + + + + | Component | Value | Ref Range | Performed | Pathologist | | | | | At | Signature | + + + + + + | Na | 136 | 135 - 145 | [facility] | | | | | mmol/L | LABORATORY | | + + + + + + | K | 3.9 | 3.5 - 4.9 | [facility] | | | | | mmol/L | LABORATORY | | + + + + + + | Cl | 105 | 99 - 109 mmol/L | [facility] | | | | | | LABORATORY | | + + + + + + | CO2 | 22 (L) | 23 - 32 mmol/L | [facility] | | | | | | LABORATORY | | + + + + + + | Anion Gap | 13 | 5 - 20 mmol/L | [facility] | | | | | | LABORATORY | | + + + + + + | Glucose | 92 | 65 - 99 mg/dL | [facility] | | | | | | LABORATORY | | + + + + + + | BUN | 9 | 8 - 25 mg/dL | [facility] | | | | | | LABORATORY | | + + + + + + | Creatinine | 0.70 | 0.70 - 1.30 | [facility] | | | | | mg/dL | LABORATORY | | + + + + + + | BUN/Creatin | 13 | | [facility] | | | ine Ratio | | | LABORATORY | | + + + + + + | Calcium | 8.3 (L) | 8.5 - 10.5 | [facility] | | | | | mg/dL | LABORATORY | | + + + + + + | Estimated | >60Comment: GFR <60: | >60 | [facility] | | | GFR | CHRONIC KIDNEY DISEASE, | mL/min/1.73m2 | LABORATORY | | | | IF FOUND OVER A 3 MONTH | | | | | | PERIOD.GFR <15: KIDNEY | | | | | | FAILURE.FOR | | | | | | AMERICANS, MULTIPLY THE | | | | | | CALCULATED GFR BY | | | | | | 1.210.This eGFR is | | | | | | calculated using the | | | | | | MDRD IDMS traceable | | | | | | equation.Testing | | | | | | performed at [facility], [address] | | | | | | [address], | | | | | | [place] [address] | | | | + + + + + + + + | Specimen | + + | Blood | + + + + + + + | Performing | Address | City/State/Zipcode | Phone Number | | Organization | | | | + + + + + | [facility] | [address] | [place] [address] | [phone] | + + + + + CBC with Differential (10/06/2019 6:27 AM PDT) + + + + + + | Component | Value | Ref Range | Performed | Pathologist | | | | | At | Signature | + + + + + + | WBC | 8.77 | 3.80 - 11.00 | [facility] | | | | | K/uL | LABORATORY | | + + + + + + | Red Blood | 3.86 (L) | 4.20 - 5.70 | [facility] | | | Cells | | M/uL | LABORATORY | | + + + + + + | Hemoglobin | 13.6 | 13.2 - 17.0 | [facility] | | | | | g/dL | LABORATORY | | + + + + + + | Hematocrit | 38.9 (L) | 39.0 - 50.0 % | [facility] | | | | | | LABORATORY | | + + + + + + | MCV | 100.8 (H) | 80.0 - 100.0 fl | [facility] | | | | | | LABORATORY | | + + + + + + | MCH | 35.2 (H) | 27.0 - 34.0 pg | [facility] | | | | | | LABORATORY | | + + + + + + | MCHC | 35.0 | 32.0 - 35.5 | [facility] | | | | | g/dL | LABORATORY | | + + + + + + | RDW-SD | 47.2 | 37 - 53 fl | [facility] | | | | | | LABORATORY | | + + + + + + | Platelet | 140 (L) | 150 - 400 K/uL | [facility] | | | Count | | | LABORATORY | | + + + + + + | MPV | 11.0Comment: NO NORMAL | fl | [facility] | | | | RANGE ESTABLISHED | | LABORATORY | | + + + + + + | Diff Type | AUTOMATED | | [facility] | | | | | | LABORATORY | | + + + + + + | % nRBC | 0.0 | 0 /100WBC | [facility] | | | | | | LABORATORY | | + + + + + + | % | 70.90 | % | [facility] | | | Neutrophils | | | LABORATORY | | + + + + + + | IMMATURE | 0.60 | % | [facility] | | | GRANULOCYTE | | | LABORATORY | | + + + + + + | % | 14.00 | % | [facility] | | | Lymphocytes | | | LABORATORY | | + + + + + + | Monocyte % | 11.40 | % | [facility] | | | | | | LABORATORY | | + + + + + + | Eosinophils | 2.20 | % | [facility] | | | % | | | LABORATORY | | + + + + + + | Basophils % | 0.90 | % | [facility] | | | | | | LABORATORY | | + + + + + + | Neutrophils | 6.22 | 1.90 - 7.40 | [facility] | | | , Absolute | | K/uL | LABORATORY | | + + + + + + | IMMATURE | 0.05Comment: NOTE NEW | 0.00 - 0.07 | [facility] | | | GRANS AB | REFERENCE RANGE | K/uL | LABORATORY | | + + + + + + | Absolute | 1.23 | 1.00 - 3.90 | [facility] | | | Lymphocytes | | K/uL | LABORATORY | | + + + + + + | Absolute | 1.00 (H) | 0.00 - 0.80 | [facility] | | | Monocytes | | K/uL | LABORATORY | | + + + + + + | Eosinophils | 0.19 | 0.00 - 0.50 | [facility] | | | , Absolute | | K/uL | LABORATORY | | + + + + + + | Basophils, | 0.08Comment: Testing | 0.00 - 0.10 | [facility] | | | Absolute | performed at [facility], [address] | K/uL | LABORATORY | | | | [address], | | | | | | [place] [address] | | | | + + + + + + + + | Specimen | + + | Blood | + + + + + + + | Performing | Address | City/State/Zipcode | Phone Number | | Organization | | | | + + + + + | [facility] | [address] | [place] [address] | [phone] | + + + + + Magnesium (10/05/2019 5:02 AM PDT) + + + + + + | Component | Value | Ref Range | Performed | Pathologist | | | | | At | Signature | + + + + + + | Magnesium | 1.7Comment: Testing | 1.7 - 2.4 mg/dL | [facility] | | | | performed at [facility] [place] | | LABORATORY | | | | [address];[place] | | | | | | [address] | | | | + + + + + + + + | Specimen | + + | Blood | + + + + + + + | Performing | Address | City/State/Zipcode | Phone Number | | Organization | | | | + + + + + | [facility] | [address] | [place] [address] | [phone] | + + + + + Basic Metabolic Panel (10/05/2019 5:02 AM PDT) + + + + + + | Component | Value | Ref Range | Performed | Pathologist | | | | | At | Signature | + + + + + + | Na | 134 (L) | 135 - 145 | [facility] | | | | | mmol/L | LABORATORY | | + + + + + + | K | 3.3 (L) | 3.5 - 4.9 | [facility] | | | | | mmol/L | LABORATORY | | + + + + + + | Cl | 102 | 99 - 109 mmol/L | [facility] | | | | | | LABORATORY | | + + + + + + | CO2 | 26 | 23 - 32 mmol/L | [facility] | | | | | | LABORATORY | | + + + + + + | Anion Gap | 9 | 5 - 20 mmol/L | [facility] | | | | | | LABORATORY | | + + + + + + | Glucose | 92 | 65 - 99 mg/dL | [facility] | | | | | | LABORATORY | | + + + + + + | BUN | 8 | 8 - 25 mg/dL | [facility] | | | | | | LABORATORY | | + + + + + + | Creatinine | 0.70 | 0.70 - 1.30 | [facility] | | | | | mg/dL | LABORATORY | | + + + + + + | BUN/Creatin | 11 | | [facility] | | | ine Ratio | | | LABORATORY | | + + + + + + | Calcium | 8.4 (L) | 8.5 - 10.5 | [facility] | | | | | mg/dL | LABORATORY | | + + + + + + | Estimated | >60Comment: GFR <60: | >60 | [facility] | | | GFR | CHRONIC KIDNEY DISEASE, | mL/min/1.73m2 | LABORATORY | | | | IF FOUND OVER A 3 MONTH | | | | | | PERIOD.GFR <15: KIDNEY | | | | | | FAILURE.FOR | | | | | | AMERICANS, MULTIPLY THE | | | | | | CALCULATED GFR BY | | | | | | 1.210.This eGFR is | | | | | | calculated using the | | | | | | MDRD IDMS traceable | | | | | | equation.Testing | | | | | | performed at [facility], [address] | | | | | | [facility], | | | | | | [place] [address] | | | | + + + + + + + + | Specimen | + + | Blood | + + + + + + + | Performing | Address | City/State/Zipcode | Phone Number | | Organization | | | | + + + + + | [facility] | [address] | [place] [address] | [phone] | + + + + + CBC with Differential (10/05/2019 5:02 AM PDT) + + + + + + | Component | Value | Ref Range | Performed | Pathologist | | | | | At | Signature | + + + + + + | WBC | 7.93 | 3.80 - 11.00 | [facility] | | | | | K/uL | LABORATORY | | + + + + + + | Red Blood | 4.03 (L) | 4.20 - 5.70 | [facility] | | | Cells | | M/uL | LABORATORY | | + + + + + + | Hemoglobin | 13.9 | 13.2 - 17.0 | [facility] | | | | | g/dL | LABORATORY | | + + + + + + | Hematocrit | 40.3 | 39.0 - 50.0 % | [facility] | | | | | | LABORATORY | | + + + + + + | MCV | 100.0 | 80.0 - 100.0 fl | [facility] | | | | | | LABORATORY | | + + + + + + | MCH | 34.5 (H) | 27.0 - 34.0 pg | [facility] | | | | | | LABORATORY | | + + + + + + | MCHC | 34.5 | 32.0 - 35.5 | [facility] | | | | | g/dL | LABORATORY | | + + + + + + | RDW-SD | 45.5 | 37 - 53 fl | [facility] | | | | | | LABORATORY | | + + + + + + | Platelet | 130 (L) | 150 - 400 K/uL | [facility] | | | Count | | | LABORATORY | | + + + + + + | MPV | 10.7Comment: NO NORMAL | fl | [facility] | | | | RANGE ESTABLISHED | | LABORATORY | | + + + + + + | Diff Type | AUTOMATED | | [facility] | | | | | | LABORATORY | | + + + + + + | % nRBC | 0.0 | 0 /100WBC | [facility] | | | | | | LABORATORY | | + + + + + + | % | 67.70 | % | [facility] | | | Neutrophils | | | LABORATORY | | + + + + + + | IMMATURE | 0.60 | % | [facility] | | | GRANULOCYTE | | | LABORATORY | | + + + + + + | % | 17.00 | % | [facility] | | | Lymphocytes | | | LABORATORY | | + + + + + + | Monocyte % | 11.60 | % | [facility] | | | | | | LABORATORY | | + + + + + + | Eosinophils | 2.10 | % | [facility] | | | % | | | LABORATORY | | + + + + + + | Basophils % | 1.00 | % | [facility] | | | | | | LABORATORY | | + + + + + + | Neutrophils | 5.36 | 1.90 - 7.40 | [facility] | | | , Absolute | | K/uL | LABORATORY | | + + + + + + | IMMATURE | 0.05Comment: NOTE NEW | 0.00 - 0.07 | [facility] | | | GRANS AB | REFERENCE RANGE | K/uL | LABORATORY | | + + + + + + | Absolute | 1.35 | 1.00 - 3.90 | [facility] | | | Lymphocytes | | K/uL | LABORATORY | | + + + + + + | Absolute | 0.92 (H) | 0.00 - 0.80 | [facility] | | | Monocytes | | K/uL | LABORATORY | | + + + + + + | Eosinophils | 0.17 | 0.00 - 0.50 | [facility] | | | , Absolute | | K/uL | LABORATORY | | + + + + + + | Basophils, | 0.08Comment: Testing | 0.00 - 0.10 | [facility] | | | Absolute | performed at [facility], [address] | K/uL | LABORATORY | | | | [address], | | | | | | [place] [address] | | | | + + + + + + + + | Specimen | + + | Blood | + + + + + + + | Performing | Address | City/State/Zipcode | Phone Number | | Organization | | | | + + + + + | [facility] | [address] | [place] [address] | [phone] | + + + + + ECHO Complete (10/04/2019 3:31 PM PDT) + +--------+ + + + | Component | Value | Ref Range | Performed | Pathologist | | | | | At | Signature | + +--------+ + + + | LVEF-TTE | 70 | % | [facility] | | | TRANSTHORAC | | | | | | IC ECHO | | | | | + +--------+ + + + | Aortic | 1.45 | cm2 | [facility] | | | Valve Area | | | | | | by | | | | | | Planimetry | | | | | + +--------+ + + + | RA PRESSURE | 3 | mmHg | [facility] | | + +--------+ + + + | LVIDd | 3.63 | cm | [facility] | | + +--------+ + + + | FS | 31 | % | [facility] | | + +--------+ + + + | LA volume | 44.15 | mL | [facility] | | + +--------+ + + + | Ascending | 3.17 | cm | [facility] | | | aorta | | | | | + +--------+ + + + | AV mean | 5.27 | mmHg | [facility] | | | gradient | | | | | + +--------+ + + + | Aortic | 1.98 | cm2 | [facility] | | | Valve Area | | | | | | by | | | | | | Continuity | | | | | | VTI | | | | | + +--------+ + + + | MV Area by | 2.72 | cm2 | [facility] | | | P 1/2 | | | | | | method | | | | | + +--------+ + + + | PV peak | 2.21 | mmHg | [facility] | | | gradient | | | | | + +--------+ + + + | LVOT | 2.11 | cm | [facility] | | | diameter | | | | | + +--------+ + + + | LVOT peak | 95.12 | cm/s | [facility] | | | destiny | | | | | + +--------+ + + + | LVOT peak | 18.91 | cm | [facility] | | | VTI | | | | | + +--------+ + + + | AV peak destiny | 160.32 | cm/s | [facility] | | + +--------+ + + + | AV VTI | 33.46 | cm | [facility] | | + +--------+ + + + | AV peak | 10.28 | mmHg | [facility] | | | gradient | | | | | + +--------+ + + + | TV peak | 0.77 | mmHg | [facility] | | | gradient | | | | | + +--------+ + + + | PV mean | 0.97 | mmHg | [facility] | | | gradient | | | | | + +--------+ + + + | MV Pressure | 80.77 | msec | [facility] | | | 1/2 time | | | | | + +--------+ + + + | LA Volume | 27 | mL/m2 | [facility] | | | Index | | | | | + +--------+ + + + | AV LVOT | 3.62 | mmHg | [facility] | | | Peak | | | | | | Gradient | | | | | + +--------+ + + + | AV LVOT | 1.66 | mmHg | [facility] | | | Mean | | | | | | Gradient | | | | | + +--------+ + + + | TR Peak | 18 | mmHg | [facility] | | | Gradient | | | | | + +--------+ + + + | TR Velocity | 212.75 | cm/s | [facility] | | + +--------+ + + + | PI Peak | 74.32 | cm/s | [facility] | | | Velocity | | | | | + +--------+ + + + | LV | 7.96 | cm | [facility] | | | Diastolic | | | | | | Length 4C | | | | | + +--------+ + + + | RV | 2.69 | cm | [facility] | | | Diastolic | | | | | | Basal | | | | | | Diameter | | | | | + +--------+ + + + | LV | 73 | % | [facility] | | | Chung's | | | | | | Biplane EF | | | | | + +--------+ + + + | LV ED | 68.34 | ml | [facility] | | | Volume | | | | | | (Chung's) | | | | | + +--------+ + + + | LV ED | 42 | ml/m2 | [facility] | | | Volume | | | | | | Index | | | | | + +--------+ + + + | LV ES | 18.2 | ml | [facility] | | | Volume | | | | | + +--------+ + + + | LVOT Mean | 60.64 | cm/s | [facility] | | | Velocity | | | | | + +--------+ + + + | RVSP | 21 | mmHg | [facility] | | | Estimated | | | | | + +--------+ + + + | MV | 264.3 | msec | [facility] | | | Deceleratio | | | | | | n Time | | | | | + +--------+ + + + | MV E/A | 0.81 | | [facility] | | | Ratio | | | | | + +--------+ + + + | MV Peak | 96.32 | cm/s | [facility] | | | A-Wave | | | | | + +--------+ + + + | MV Peak | 78.23 | cm/s | [facility] | | | E-Wave | | | | | + +--------+ + + + | TV | 311.21 | msec | [facility] | | | Deceleratio | | | | | | n Time | | | | | + +--------+ + + + | TV Peak | 37.53 | cm/s | [facility] | | | A-Wave | | | | | + +--------+ + + + | TV Peak | 43.8 | cm/s | [facility] | | | E-Wave | | | | | + +--------+ + + + | PV Mean | 44.3 | cm/s | [facility] | | | Velocity | | | | | + +--------+ + + + | AV Mean | 107.41 | cm/s | [facility] | | | Velocity | | | | | + +--------+ + + + | RA Area | 13.12 | cm2 | [facility] | | + +--------+ + + + | LA/Aorta | 0.98 | | [facility] | | | Ratio | | | | | + +--------+ + + + | LA Area | 13.28 | cm2 | [facility] | | + +--------+ + + + | LA Major | 0.3346 | cm | [facility] | | + +--------+ + + + | LV ES | 11 | ml/m2 | [facility] | | | Volume | | | | | | Index | | | | | + +--------+ + + + | Cardiac | 6.08 | l/min | [facility] | | | Output | | | | | + +--------+ + + + | Cardiac | 3.75 | l/min/m2 | [facility] | | | Index | | | | | + +--------+ + + + | Vitals | 92 | | [facility] | | | Heart Rate | | | | | | Rest | | | | | + +--------+ + + + | Vitals | 170.2 | | [facility] | | | Height | | | | | + +--------+ + + + | Vitals | 54.30 | | [facility] | | | Weight | | | | | + +--------+ + + + | Aortic Root | 3.22 | cm | [facility] | | | Diameter | | | | | + +--------+ + + + | IVS | 1.28 | cm | [facility] | | | Diastolic | | | | | | Thickness | | | | | | MM | | | | | + +--------+ + + + | LVPW | 1.39 | cm | [facility] | | | Diastolic | | | | | | Thickness | | | | | | MM | | | | | + +--------+ + + + | IVS | 1.69 | cm | [facility] | | | Systolic | | | | | | Thickness | | | | | | MM | | | | | + +--------+ + + + | LV Systolic | 2.5 | cm | [facility] | | | Diameter | | | | | | MM | | | | | + +--------+ + + + | LVPW | 1.9 | cm | [facility] | | | Systolic | | | | | | Thickness | | | | | | MM | | | | | + +--------+ + + + | AV Cusp | 1.31 | cm | [facility] | | | Seperation | | | | | | MM | | | | | + +--------+ + + + | LA Systolic | 3.16 | cm | [facility] | | | Diameter | | | | | | MM | | | | | + +--------+ + + + | TAPSE | 1.96 | cm | [facility] | | + +--------+ + + + + + | Specimen | + + | | + + + + + | Narrative | Performed At | + + + | There is | [facility] | | normal left ventricular systolic function. The left ventricular | | | ejection fraction is 70%. There is moderate concentric left | | | ventricular hypertrophy. There is normal left atrial pressure and | | | grade I left ventricular diastolic dysfunction. Normal size right | | | ventricle, with normal right ventricular systolic function. There is | | | mild aortic sclerosis, without stenosis. No significant valvular | | | abnormalities are noted. There are no previous echocardiographic | | | studies available for comparison. | | | There are no previous echocardiographic studies available for | | |comparison. | | | | | + + + + +---------+ + + | Performing | Address | City/State/Zipcode | Phone Number | | Organization | | | | + +---------+ + + | [facility] | | | | + +---------+ + + VAS Carotid Duplex Bilateral (10/04/2019 11:50 AM PDT) + + | Specimen | + + | | + + + + + | Impressions | Performed At | + + + | 1. Atherosclerotic vascular disease with some shadowing plaque, | [facility] | | limiting proximal left ICA visualization. However, no high-grade | | | stenosis of either internal carotid artery by velocity. | | | Final Report Signed by: Jacky Anderson, Nicolas Graham Date/Time: | | | 10/04/2019 12:06 PM | | + + + + + + | Narrative | Performed At | + + + | CAROTID DUPLEX ULTRASOUND CLINICAL INFORMATION: Uncontrolled | [facility] | | hypertension and cholesterol. COMPARISON: None PROCEDURE: | | | Evaluation of the extracranial carotid and vertebral arteries with | | | production of real-time images integrating B-mode two-dimensional | | | vascular structure, Doppler spectral analysis and color-flow Doppler | | | imaging. Carotid stenosis measurements based on Society of | | | Radiologists in Ultrasound consensus and [place] Criteria. | | | FINDINGS: Peak systolic and diastolic velocities measured in the | | | common and internal carotid arteries. All velocities recorded in | | | cm/sec: Anterior Circulation: Right CCA: 62/14 ICA: 56/13 | | | ECA: 147/21 ICA/CCA: .9 Left CCA: 74/15 ICA: 67 /18 ECA: | | | 101/11 ICA/CCA: .9 Posterior Circulation: Right: Vertebral: | | | 62/12 Antegrade Left: Vertebral: 75/12 Antegrade Lauren scale | | | images: Right: No significant atherosclerotic plaque or | | | significant stenosis by grayscale imaging. Left: No significant | | | atherosclerotic plaque or significant stenosis by grayscale imaging. | | | Atherosclerotic vascular disease of both carotid bulbs but no | | | high-grade stenosis to visual inspection. Multifocal calcified | | | plaque but no high-grade stenosis to visual inspection. There is | | | some shadowing through the plaques for example at the left carotid | | | bulb on image 33/45. However waveforms are normal | | + + + + + | Procedure Note | + + | Espinoza, [id number] - 10/04/2019 12:10 PM PDT | | CAROTID DUPLEX ULTRASOUND | | | | CLINICAL INFORMATION: | | Uncontrolled hypertension and cholesterol. | | | | COMPARISON: | | None | | | | PROCEDURE: | | Evaluation of the extracranial carotid and vertebral arteries with | | production of real-time images integrating B-mode two-dimensional | | vascular structure, Doppler spectral analysis and color-flow Doppler | | imaging. | | | | Carotid stenosis measurements based on Society of Radiologists in | | Ultrasound consensus and [place] Criteria. | | | | FINDINGS: | | Peak systolic and diastolic velocities measured in the common and | | internal carotid arteries. All velocities recorded in cm/sec: | | | | Anterior Circulation: | | | | Right | | CCA: 62/14 | | ICA: 56/13 | | ECA: 147/21 | | ICA/CCA: .9 | | | | Left | | CCA: 74/15 | | ICA: 67 /18 | | ECA: 101/11 | | ICA/CCA: .9 | | | | Posterior Circulation: | | | | Right: | | Vertebral: 62/12 Antegrade | | | | Left: | | Vertebral: 75/12 Antegrade | | | | Lauren scale images: | | | | Right: No significant atherosclerotic plaque or significant stenosis by | | grayscale imaging. | | | | Left: No significant atherosclerotic plaque or significant stenosis by | | grayscale imaging. | | | | Atherosclerotic vascular disease of both carotid bulbs but no | | high-grade stenosis to visual inspection. Multifocal calcified plaque | | but no high-grade stenosis to visual inspection. There is some | | shadowing through the plaques for example at the left carotid bulb on | | image 33/45. However waveforms are normal | | | | IMPRESSION: | | 1. Atherosclerotic vascular disease with some shadowing plaque, | | limiting proximal left ICA visualization. However, no high-grade | | stenosis of either internal carotid artery by velocity. | | | | | | | | Final Report Signed by: Jacky Anderson, Nicolas | | Sign Date/Time: 10/04/2019 12:06 PM | + + + +---------+ + + | Performing | Address | City/State/Zipcode | Phone Number | | Organization | | | | + +---------+ + + | [facility] | | | | + +---------+ + + MRSA NAAT (10/04/2019 9:41 AM PDT) + + + + + + | Component | Value | Ref Range | Performed | Pathologist | | | | | At | Signature | + + + + + + | SOURCE: | NARES(NOSE) | | [facility] | | | | | | LABORATORY | | + + + + + + | Result | NEGATIVEComment: Testing | MRSNEG | [facility] | | | | performed at [facility] [place] | | LABORATORY | | | | [address];[place] | | | | | | [address] | | | | + + + + + + + + | Specimen | + + | Tissue - Both | | anterior nares (body | | structure) | + + + + + + + | Performing | Address | City/State/Zipcode | Phone Number | | Organization | | | | + + + + + | [facility] | [address] | [place] [address] | [phone] | + + + + + Protime INR (10/04/2019 6:12 AM PDT) + + + + + + | Component | Value | Ref Range | Performed | Pathologist | | | | | At | Signature | + + + + + + | INR | 1.1Comment: REFERENCE | | [facility] | | | | RANGE:0.9 - 1.2 | | LABORATORY | | | | NON-ANTICOAGULATED2.0 | | | | | | - 3.0 ALL OTHER | | | | | | THERAPEUTIC | | | | | | INDICATIONS2.5 - 3.5 | | | | | | MECHANICAL HEART VALVES, | | | | | | RECURRENT OR SYSTEMIC | | | | | | EMBOLISMTesting | | | | | | performed at [facility] [place] | | | | | | [address];[place] | | | | | | [address] | | | | + + + + + + + + | Specimen | + + | Blood | + + + + + + + | Performing | Address | City/State/Zipcode | Phone Number | | Organization | | | | + + + + + | [facility] | [address] | [place] [address] | [phone] | + + + + + Uric Acid (10/04/2019 4:26 AM PDT) + + + + + + | Component | Value | Ref Range | Performed | Pathologist | | | | | At | Signature | + + + + + + | Uric Acid | 3.2Comment: Testing | 3.2 - 8.6 mg/dL | [facility] | | | | performed at [facility], [address] | | LABORATORY | | | | [address], | | | | | | [place] [address] | | | | + + + + + + + + | Specimen | + + | Blood | + + + + + + + | Performing | Address | City/State/Zipcode | Phone Number | | Organization | | | | + + + + + | [facility] | [address] | [place] [address] | [phone] | + + + + + Lipid Panel (10/04/2019 4:26 AM PDT) + + + + + + | Component | Value | Ref Range | Performed | Pathologist | | | | | At | Signature | + + + + + + | Cholesterol | 129 | <200 mg/dL | [facility] | | | | | | LABORATORY | | + + + + + + | Triglycerid | 65 | <150 mg/dL | [facility] | | | es | | | LABORATORY | | + + + + + + | HDL | 36 (L) | >40 mg/dL | [facility] | | | | | | LABORATORY | | + + + + + + | LDL, | 80Comment: Testing | <100 mg/dL | [facility] | | | Calculated | performed at [facility], [address] | | LABORATORY | | | | [address], | | | | | | [place] [address] | | | | + + + + + + + + | Specimen | + + | Blood | + + + + + + + | Performing | Address | City/State/Zipcode | Phone Number | | Organization | | | | + + + + + | [facility] | [address] | [place] [address] | [phone] | + + + + + Comprehensive Metabolic Panel (10/04/2019 4:26 AM PDT) + + + + + + | Component | Value | Ref Range | Performed | Pathologist | | | | | At | Signature | + + + + + + | Na | 134 (L) | 135 - 145 | [facility] | | | | | mmol/L | LABORATORY | | + + + + + + | K | 3.9 | 3.5 - 4.9 | [facility] | | | | | mmol/L | LABORATORY | | + + + + + + | Cl | 101 | 99 - 109 mmol/L | [facility] | | | | | | LABORATORY | | + + + + + + | CO2 | 26 | 23 - 32 mmol/L | [facility] | | | | | | LABORATORY | | + + + + + + | Anion Gap | 11 | 5 - 20 mmol/L | [facility] | | | | | | LABORATORY | | + + + + + + | Glucose | 81 | 65 - 99 mg/dL | [facility] | | | | | | LABORATORY | | + + + + + + | BUN | 7 (L) | 8 - 25 mg/dL | [facility] | | | | | | LABORATORY | | + + + + + + | Creatinine | 0.60 (L) | 0.70 - 1.30 | [facility] | | | | | mg/dL | LABORATORY | | + + + + + + | BUN/Creatin | 12 | | [facility] | | | ine Ratio | | | LABORATORY | | + + + + + + | Calcium | 8.7 | 8.5 - 10.5 | [facility] | | | | | mg/dL | LABORATORY | | + + + + + + | Protein, | 6.6 | 6.3 - 8.2 g/dL | [facility] | | | Total | | | LABORATORY | | + + + + + + | Albumin | 2.7 (L) | 3.3 - 4.8 g/dL | [facility] | | | | | | LABORATORY | | + + + + + + | Globulin | 3.9 | 1.3 - 4.9 g/dL | [facility] | | | | | | LABORATORY | | + + + + + + | A/G Ratio | 0.7 (L) | 1.0 - 2.4 | [facility] | | | | | | LABORATORY | | + + + + + + | BILIRUBIN, | 1.1 | 0.1 - 1.5 mg/dL | [facility] | | | TOTAL | | | LABORATORY | | + + + + + + | ALK PHOS | 119 (H) | 35 - 115 U/L | [facility] | | | | | | LABORATORY | | + + + + + + | AST | 48 (H) | 10 - 45 U/L | [facility] | | | | | | LABORATORY | | + + + + + + | ALT | 35 | 10 - 65 U/L | [facility] | | | | | | LABORATORY | | + + + + + + | Estimated | >60Comment: GFR <60: | >60 | [facility] | | | GFR | CHRONIC KIDNEY DISEASE, | mL/min/1.73m2 | LABORATORY | | | | IF FOUND OVER A 3 MONTH | | | | | | PERIOD.GFR <15: KIDNEY | | | | | | FAILURE.FOR | | | | | | AMERICANS, MULTIPLY THE | | | | | | CALCULATED GFR BY | | | | | | 1.210.This eGFR is | | | | | | calculated using the | | | | | | MDRD IDCA traceable | | | | | | equation.Testing | | | | | | performed at [facility], [address] | | | | | | [facility], | | | | | | [place] [address] | | | | + + + + + + + + | Specimen | + + | Blood | + + + + + + + | Performing | Address | City/State/Zipcode | Phone Number | | Organization | | | | + + + + + | [facility] | [address] | [place] [address] | [phone] | + + + + + CBC with Differential (10/04/2019 4:26 AM PDT) + + + + + + | Component | Value | Ref Range | Performed | Pathologist | | | | | At | Signature | + + + + + + | WBC | 8.64 | 3.80 - 11.00 | [facility] | | | | | K/uL | LABORATORY | | + + + + + + | Red Blood | 3.87 (L) | 4.20 - 5.70 | [facility] | | | Cells | | M/uL | LABORATORY | | + + + + + + | Hemoglobin | 13.6 | 13.2 - 17.0 | [facility] | | | | | g/dL | LABORATORY | | + + + + + + | Hematocrit | 38.9 (L) | 39.0 - 50.0 % | [facility] | | | | | | LABORATORY | | + + + + + + | MCV | 100.5 (H) | 80.0 - 100.0 fl | [facility] | | | | | | LABORATORY | | + + + + + + | MCH | 35.1 (H) | 27.0 - 34.0 pg | [facility] | | | | | | LABORATORY | | + + + + + + | MCHC | 35.0 | 32.0 - 35.5 | [facility] | | | | | g/dL | LABORATORY | | + + + + + + | RDW-SD | 46.9 | 37 - 53 fl | [facility] | | | | | | LABORATORY | | + + + + + + | Platelet | 114 (L) | 150 - 400 K/uL | [facility] | | | Count | | | LABORATORY | | + + + + + + | MPV | 10.7Comment: NO NORMAL | fl | [facility] | | | | RANGE ESTABLISHED | | LABORATORY | | + + + + + + | Diff Type | AUTOMATED | | [facility] | | | | | | LABORATORY | | + + + + + + | % nRBC | 0.0 | 0 /100WBC | [facility] | | | | | | LABORATORY | | + + + + + + | % | 71.10 | % | [facility] | | | Neutrophils | | | LABORATORY | | + + + + + + | IMMATURE | 0.50 | % | [facility] | | | GRANULOCYTE | | | LABORATORY | | + + + + + + | % | 13.50 | % | [facility] | | | Lymphocytes | | | LABORATORY | | + + + + + + | Monocyte % | 12.40 | % | [facility] | | | | | | LABORATORY | | + + + + + + | Eosinophils | 1.60 | % | [facility] | | | % | | | LABORATORY | | + + + + + + | Basophils % | 0.90 | % | [facility] | | | | | | LABORATORY | | + + + + + + | Neutrophils | 6.14 | 1.90 - 7.40 | [facility] | | | , Absolute | | K/uL | LABORATORY | | + + + + + + | IMMATURE | 0.04Comment: NOTE NEW | 0.00 - 0.07 | [facility] | | | GRANS AB | REFERENCE RANGE | K/uL | LABORATORY | | + + + + + + | Absolute | 1.17 | 1.00 - 3.90 | [facility] | | | Lymphocytes | | K/uL | LABORATORY | | + + + + + + | Absolute | 1.07 (H) | 0.00 - 0.80 | [facility] | | | Monocytes | | K/uL | LABORATORY | | + + + + + + | Eosinophils | 0.14 | 0.00 - 0.50 | [facility] | | | , Absolute | | K/uL | LABORATORY | | + + + + + + | Basophils, | 0.08Comment: Testing | 0.00 - 0.10 | [facility] | | | Absolute | performed at [address], [address] | K/u[address] | LABORATORY | | | | [facility] [address] | | | | | | [place] [address] | | | | + + + + + + + + | Specimen | + + | Blood | + + + + + + + | Performing | Address | City/State/Zipcode | Phone Number | | Organization | | | | + + + + + | [facility] | [address] | [place] [address] | [phone] | + + + + + Coronavirus (COVID-19) NAAStephon (10/04/2019 12:49 AM PDT) + + + + + + | Component | Value | Ref Range | Performed | Pathologist | | | | | At | Signature | + + + + + + | SARS-CoV-2, | NEGATIVEComment: This | NEG | [facility] | | | NAAT | test was developed and | | LABORATORY | | | (COVID-19) | its performance | | | | | | characteristics | | | | | | determined byCepheid. It | | | | | | has not been cleared or | | | | | | approved by the [place] FDA. | | | | | | This test has | | | | | | beenauthorized by FDA | | | | | | under an Emergency Use | | | | | | Authorization (EUA). | | | | | | Clinicians shouldbe | | | | | | advised to consider a | | | | | | patients signs, | | | | | | symptoms, history, and | | | | | | results ofother | | | | | | diagnostic tests when | | | | | | interpreting | | | | | | results.Testing | | | | | | performed at [facility] [place] | | | | | | [facility];[place], [place] | | | | | | [address] | | | | + + + + + + + + | Specimen | + + | Tissue - Entire | | nasopharynx (body | | structure) | + + + + + + + | Performing | Address | City/State/Zipcode | Phone Number | | Organization | | | | + + + + + | [facility] | [address] | [place] [address] | [phone] | + + + + + ECG 12 lead (10/03/2019 11:10 PM PDT) + + + + + + | Component | Value | Ref Range | Performed | Pathologist | | | | | At | Signature | + + + + + + | VENTRICULAR | 72 | BPM | [facility] | | | RATE EKG | | | | | + + + + + + | ATRIAL RATE | 72 | BPM | [facility] | | + + + + + + | P-R | 168 | ms | [facility] | | | INTERVAL | | | | | + + + + + + | QRS | 82 | ms | [facility] | | | DURATION | | | | | + + + + + + | Q-T | 416 | ms | [facility] | | | INTERVAL | | | | | + + + + + + | Q-T | 455 | ms | [facility] | | | INTERVAL | | | | | | (CORRECTED) | | | | | + + + + + + | P WAVE AXIS | 69 | degrees | [facility] | | + + + + + + | QRS AXIS | 38 | degrees | [facility] | | + + + + + + | T AXIS | 61 | degrees | [facility] | | + + + + + + | INTERPRETAT | Normal sinus | | [facility] | | | ION TEXT | rhythmPossible Left | | | | | | atrial enlargementMildly | | | | | | Prolonged Q-T | | | | | | intervalOtherwise normal | | | | | | ECGNo previous ECGs | | | | | | availableConfirmed by | | | | | | XIANG HART MD ([id number]) | | | | | | on 10/04/2019 7:50:43 PM | | | | + + + + + + + + | Specimen | + + | | + + + + + | Narrative | Performed At | + + + | | | + + + + +---------+ + + | Performing | Address | City/State/Zipcode | Phone Number | | Organization | | | | + +---------+ + + | [facility] | | | | + +---------+ + + Type and Screen (10/03/2019 10:41 PM PDT) + + + + + + | Component | Value | Ref Range | Performed | Pathologist | | | | | At | Signature | + + + + + + | ABO Rh | A POSITIVE | | [facility] | | | | | | LABORATORY | | + + + + + + | Antibody | NEGATIVE | | [facility] | | | Screen | | | LABORATORY | | + + + + + + | BB BAND | [address] | | [facility] | | | | | | LABORATORY | | + + + + + + | BB BAND | Testing performed at | | [facility] | | | | [facility] [place] | | LABORATORY | | | | [place] [address] | | | | + + + + + + + + | Specimen | + + | Blood | + + + + + + + | Performing | Address | City/State/Zipcode | Phone Number | | Organization | | | | + + + + + | [facility] | [address] | [place] [address] | [phone] | + + + + + Comprehensive Metabolic Panel (10/03/2019 10:41 PM PDT) + + + + + + | Component | Value | Ref Range | Performed | Pathologist | | | | | At | Signature | + + + + + + | Na | 132 (L) | 135 - 145 | [facility] | | | | | mmol/L | LABORATORY | | + + + + + + | K | 3.2 (L) | 3.5 - 4.9 | [facility] | | | | | mmol/L | LABORATORY | | + + + + + + | Cl | 99 | 99 - 109 mmol/L | [facility] | | | | | | LABORATORY | | + + + + + + | CO2 | 26 | 23 - 32 mmol/L | [facility] | | | | | | LABORATORY | | + + + + + + | Anion Gap | 10 | 5 - 20 mmol/L | [facility] | | | | | | LABORATORY | | + + + + + + | Glucose | 89 | 65 - 99 mg/dL | [facility] | | | | | | LABORATORY | | + + + + + + | BUN | 5 (L) | 8 - 25 mg/dL | [facility] | | | | | | LABORATORY | | + + + + + + | Creatinine | 0.64 (L) | 0.70 - 1.30 | [facility] | | | | | mg/dL | LABORATORY | | + + + + + + | BUN/Creatin | 8 | | [facility] | | | ine Ratio | | | LABORATORY | | + + + + + + | Calcium | 8.6 | 8.5 - 10.5 | [facility] | | | | | mg/dL | LABORATORY | | + + + + + + | Protein, | 6.4 | 6.3 - 8.2 g/dL | [facility] | | | Total | | | LABORATORY | | + + + + + + | Albumin | 3.7 | 3.3 - 4.8 g/dL | [facility] | | | | | | LABORATORY | | + + + + + + | Globulin | 2.7 | 1.3 - 4.9 g/dL | [facility] | | | | | | LABORATORY | | + + + + + + | A/G Ratio | 1.4 | 1.0 - 2.4 | [facility] | | | | | | LABORATORY | | + + + + + + | BILIRUBIN, | 1.2 | 0.1 - 1.5 mg/dL | [facility] | | | TOTAL | | | LABORATORY | | + + + + + + | ALK PHOS | 114 | 35 - 115 U/L | [facility] | | | | | | LABORATORY | | + + + + + + | AST | 58 (H) | 10 - 45 U/L | [facility] | | | | | | LABORATORY | | + + + + + + | ALT | 35 | 10 - 65 U/L | [facility] | | | | | | LABORATORY | | + + + + + + | Estimated | >60Comment: GFR <60: | >60 | [facility] | | | GFR | CHRONIC KIDNEY DISEASE, | mL/min/1.73m2 | LABORATORY | | | | IF FOUND OVER A 3 MONTH | | | | | | PERIOD.GFR <15: KIDNEY | | | | | | FAILURE.FOR | | | | | | AMERICANS, MULTIPLY THE | | | | | | CALCULATED GFR BY | | | | | | 1.210.This eGFR is | | | | | | calculated using the | | | | | | MDRD IDMS traceable | | | | | | equation.Testing | | | | | | performed at [facility] [place] | | | | | [address];[place] | | | | | | [address] | | | | + + + + + + + + | Specimen | + + | Blood | + + + + + + + | Performing | Address | City/State/Zipcode | Phone Number | | Organization | | | | + + + + + | [facility] | [address] | [place] [address] | [phone] | + + + + + CBC with Differential (10/03/2019 10:41 PM PDT) + + + + + + | Component | Value | Ref Range | Performed | Pathologist | | | | | At | Signature | + + + + + + | WBC | 8.53 | 3.80 - 11.00 | [facility] | | | | | K/uL | LABORATORY | | + + + + + + | Red Blood | 3.96 (L) | 4.20 - 5.70 | [facility] | | | Cells | | M/uL | LABORATORY | | + + + + + + | Hemoglobin | 14.0 | 13.2 - 17.0 | [facility] | | | | | g/dL | LABORATORY | | + + + + + + | Hematocrit | 40.0 | 39.0 - 50.0 % | [facility] | | | | | | LABORATORY | | + + + + + + | MCV | 101.0 (H) | 80.0 - 100.0 fl | [facility] | | | | | | LABORATORY | | + + + + + + | MCH | 35.4 (H) | 27.0 - 34.0 pg | [facility] | | | | | | LABORATORY | | + + + + + + | MCHC | 35.0 | 32.0 - 35.5 | [facility] | | | | | g/dL | LABORATORY | | + + + + + + | RDW-SD | 47.9 | 37 - 53 fl | [facility] | | | | | | LABORATORY | | + + + + + + | Platelet | 116 (L) | 150 - 400 K/uL | [facility] | | | Count | | | LABORATORY | | + + + + + + | MPV | 10.1Comment: NO NORMAL | fl | [facility] | | | | RANGE ESTABLISHED | | LABORATORY | | + + + + + + | Diff Type | AUTOMATED | | [facility] | | | | | | LABORATORY | | + + + + + + | % nRBC | 0.0 | 0 /100WBC | [facility] | | | | | | LABORATORY | | + + + + + + | % | 72.10 | % | [facility] | | | Neutrophils | | | LABORATORY | | + + + + + + | IMMATURE | 0.40 | % | [facility] | | | GRANULOCYTE | | | LABORATORY | | + + + + + + | % | 14.50 | % | [facility] | | | Lymphocytes | | | LABORATORY | | + + + + + + | Monocyte % | 10.80 | % | [facility] | | | | | | LABORATORY | | + + + + + + | Eosinophils | 1.50 | % | [facility] | | | % | | | LABORATORY | | + + + + + + | Basophils % | 0.70 | % | [facility] | | | | | | LABORATORY | | + + + + + + | Neutrophils | 6.15 | 1.90 - 7.40 | [facility] | | | , Absolute | | K/uL | LABORATORY | | + + + + + + | IMMATURE | 0.03Comment: NOTE NEW | 0.00 - 0.07 | [facility] | | | GRANS AB | REFERENCE RANGE | K/uL | LABORATORY | | + + + + + + | Absolute | 1.24 | 1.00 - 3.90 | [facility] | | | Lymphocytes | | K/uL | LABORATORY | | + + + + + + | Absolute | 0.92 (H) | 0.00 - 0.80 | [facility] | | | Monocytes | | K/uL | LABORATORY | | + + + + + + | Eosinophils | 0.13 | 0.00 - 0.50 | [facility] | | | , Absolute | | K/uL | LABORATORY | | + + + + + + | Basophils, | 0.06Comment: Testing | 0.00 - 0.10 | [facility] | | | Absolute | performed at [facility] [place] | [address] | LABORATORY | | | | [address];[place] | | | | | | [address] | | | | + + + + + + + + | Specimen | + + | Blood | + + + + + + + | Performing | Address | City/State/Zipcode | Phone Number | | Organization | | | | + + + + + | [facility] | [address] | [place] [address] | [phone] | + + + + + documented in this encounter Visit Diagnoses + + | Diagnosis | + + | Pseudoaneurysm (HCC) Aneurysm of unspecified site | + + documented in this encounter Admitting Diagnoses + + | Diagnosis | + + | Peripheral arterial disease (HCC) Unspecified disorders of arteries and arterioles | + + documented in this encounter Administered Medications + +--------+ +--------+------+------+ | Medication Order | MAR | Action | Dose | Rate | Site | | | Action | Date | | | | + +--------+ +--------+------+------+ | acetaminophen (TYLENOL) tablet | Given | 10/15/19 | 650 mg | | | | 650 mg 650 mg, Oral, EVERY 4 | | 20 8:40 | | | | | HOURS PRN, Pain, or fever >= 38.6 | | AM PDT | | | | | C (101.5 F), Starting 10/03/19 | | | | | | | at 2230 | | | | | | + +--------+ +--------+------+------+ +-------+ +--------+---+---+ | Given | 10/11/19 | 650 mg | | | | | 20 3:59 | | | | | | PM PDT | | | | +-------+ +--------+---+---+ | Given | 10/09/19 | 650 mg | | | | | 20 4:19 | | | | | | PM PDT | | | | +-------+ +--------+---+---+ +---+---+ | | | +---+---+ + +-------+ +-------+---+---+ | aspirin chewable tablet 81 mg | Given | 10/16/19 | 81 mg | | | | 81 mg, Oral, DAILY, First dose on | | 20 8:37 | | | | | 10/04/19 at 1100 | | AM PDT | | | | + +-------+ +-------+---+---+ +-------+ +-------+---+---+ | Given | 10/15/19 | 81 mg | | | | | 20 8:39 | | | | | | AM PDT | | | | +-------+ +-------+---+---+ | Given | 10/14/19 | 81 mg | | | | | 20 8:36 | | | | | | AM PDT | | | | +-------+ +-------+---+---+ +---+---+ | | | +---+---+ + +-------+ +-------+---+---+ | atorvaSTATin (LIPITOR) tablet | Given | 10/15/19 | 40 mg | | | | 40 mg 40 mg, Oral, NIGHTLY, | | 20 7:51 | | | | | First dose on Wed10/04/19 at 0015 | | PM PDT | | | | + +-------+ +-------+---+---+ +-------+ +-------+---+---+ | Given | 10/14/19 | 40 mg | | | | | 20 8:35 | | | | | | PM PDT | | | | +-------+ +-------+---+---+ | Given | 10/13/19 | 40 mg | | | | | 20 9:03 | | | | | | PM PDT | | | | +-------+ +-------+---+---+ +---+---+ | | | +---+---+ + +-------+ +-------+---+---+ | clopidogrel (PLAVIX) tablet 75 | Given | 10/16/19 | 75 mg | | | | mg 75 mg, Oral, DAILY, First | | 20 8:37 | | | | | dose on 10/08/19 at 1600 | | AM PDT | | | | + +-------+ +-------+---+---+ +-------+ +-------+---+---+ | Given | 10/15/19 | 75 mg | | | | | 20 8:39 | | | | | | AM PDT | | | | +-------+ +-------+---+---+ | Given | 10/14/19 | 75 mg | | | | | 20 8:36 | | | | | | AM PDT | | | | +-------+ +-------+---+---+ + +---+ | | | + +---+ | dextrose 50% injection 12.5-25 | | | g 12.5-25 g, Intravenous, EVERY | | | 15 MIN PRN, Low Blood Sugar, For | | | hypoglycemia. Give 12.5g (25ml) | | | IV if blood glucose 50-69 | | | mg/dL. Give 25g (50ml) IV if | | | blood glucose < 50, Starting Sun | | | 10/08/19 at 1431, Give over 2 min. | | | Repeat in 15 min if blood | | | glucose remains < 70 mg/dL. | | | Repeat blood glucose in 30 min | | | once blood glucose > 70., | | + +---+ | | | + +---+ + +-------+ +---------+---+---+ | diphenhydrAMINE (BENADRYL) | Given | 10/11/19 | 12.5 mg | | | | injection 12.5 mg 12.5 mg, | | 20 12:33 | | | | | Intravenous, EVERY 6 HOURS PRN, | | AM PDT | | | | | Itching, Starting 10/10/19 at | | | | | | | 1057, Notify provider if | | | | | | | ineffective. Monitor | | | | | | | respiratory status closely during | | | | | | | concomitant use of opioid | | | | | | | agonists., | | | | | | + +-------+ +---------+---+---+ +-------+ +---------+---+---+ | Given | 10/10/19 | 12.5 mg | | | | | 20 6:11 | | | | | | PM PDT | | | | +-------+ +---------+---+---+ | Given | 10/10/19 | 12.5 mg | | | | | 20 11:14 | | | | | | AM PDT | | | | +-------+ +---------+---+---+ +---+---+ | | | +---+---+ + +-------+ +---------+---+---+ | diphenoxylate-atropine | Given | 10/13/19 | 2 | | | | (LOMOTIL) 2.5-0.025 mg per tablet | | 20 5:20 | tablets | | | | 2 tablet 2 tablet, Oral, 4 | | PM PDT | | | | | TIMES DAILY PRN, Diarrhea, | | | | | | | Starting [facility] 10/12/19 at 1744 | | | | | | + +-------+ +---------+---+---+ +-------+ +---------+---+---+ | Given | 10/13/19 | 2 | | | | | 20 8:55 | tablets | | | | | AM PDT | | | | +-------+ +---------+---+---+ | Given | 10/12/19 | 2 | | | | | 20 8:13 | tablets | | | | | PM PDT | | | | +-------+ +---------+---+---+ +---+---+ | | | +---+---+ + +-------+ +-------+---+ + | enoxaparin (LOVENOX) 40 mg/0.4 | Given | 10/16/19 | 40 mg | | Abdomen- | | mL injection 40 mg 40 mg, | | 20 8:36 | | | RLQ | | Subcutaneous, EVERY 24 HOURS, | | AM PDT | | | | | First dose on Wed10/10/19 at 1215 | | | | | | + +-------+ +-------+---+ + +-------+ +-------+---+ + | Given | 08/16/20 | 40 mg | | Abdomen- | | | 20 8:40 | | | LLQ | | | AM PDT | | | | +-------+ +-------+---+ + | Given | 08/15/20 | 40 mg | | Abdomen- | | | 20 8:37 | | | LLQ | | | AM PDT | | | | +-------+ +-------+---+ + +---+---+ | | | +---+---+ + +-------+ +--------+---+---+ | heparin 5,000 units/mL | Given | 10/07/19 | 5,000 | | | | injection PRN, Starting Sat | | 20 9:04 | Units | | | | 20 at 0904, Intra-op | | AM PDT | | | | + +-------+ +--------+---+---+ + +---+ | | | + +---+ | hydrocortisone (ANUSOL-HC) | | | suppository 25 mg 25 mg, Rectal, | | | 2 TIMES DAILY PRN, Hemorrhoidal | | | Pain, Starting [facility] 10/05/19 at 1227 | | + +---+ | | | + +---+ + +-------+ +---+---+---+ | labetalol (TRANDATE) 5 mg/mL | Given | 10/11/19 | | | | | injection 10 mg 10 mg, | | 20 9:07 | | | | | Intravenous, EVERY 1 HOUR PRN, | | AM PDT | | | | | SBP > 180, Starting 10/09/19 | | | | | | | at 0200 | | | | | | + +-------+ +---+---+---+ +---+---+ | | | +---+---+ + +-------+ + +---+---+ | lactobacillus (FLORANEX) | Given | 10/16/19 | 1 packet | | | | granule 1 packet 1 packet, Oral, | | 20 8:37 | | | | | 3 TIMES DAILY, First dose on [facility] | | AM PDT | | | | | 10/12/19 at 1545, Do not crush., | | | | | | + +-------+ + +---+---+ +-------+ + +---+---+ | Given | 10/15/19 | 1 packet | | | | | 20 7:51 | | | | | | PM PDT | | | | +-------+ + +---+---+ | Given | 10/15/19 | 1 packet | | | | | 20 1:14 | | | | | | PM PDT | | | | +-------+ + +---+---+ +---+---+ | | | +---+---+ + +-------+ +------+---+---+ | LORazepam (ATIVAN) injection | Given | 10/11/19 | 1 mg | | | | 1-4 mg 1-4 mg, Intravenous, PRN, | | 20 3:26 | | | | | Withdrawal Symptoms, Starting | | AM PDT | | | | | 10/03/19 at 2308, CIWA less | | | | | | | than 9: No dose, reassess in 4 | | | | | | | hours CIWA 9-14: Give 1 mg, | | | | | | | reassess in 2 hours CIWA 15-20: | | | | | | | Give 2 mg, reassess in 1 hour | | | | | | | CIWA 21-25: Give 3 mg, reassess | | | | | | | in 30 minutes CIWA greater than | | | | | | | 25: 4 mg, reassess in 30 minutes, | | | | | | | | | | | | | + +-------+ +------+---+---+ +-------+ +------+---+---+ | Given | 10/09/19 | 1 mg | | | | | 20 1:00 | | | | | | AM PDT | | | | +-------+ +------+---+---+ +---+---+ | | | +---+---+ + +-------+ +--------+---+---+ | magnesium oxide (MAG-OX) tablet | Given | 10/15/19 | 800 mg | | | | 800 mg 800 mg, Oral, DAILY PRN, | | 20 8:40 | | | | | Per protocol, Starting Wed | | AM PDT | | | | | 10/11/19 at 1111, NON-ICU Protocol | | | | | | | Replace magnesium once per day | | | | | | | based on morning magnesium level. | | | | | | | Use scale below to determine | | | | | | | dose. If further replacement is | | | | | | | required after this morning dose | | | | | | | of magnesium, notify provider | | | | | | | Protocol NOT recommended if Scr > | | | | | | | 1.8, dialysis patients or CrCl < | | | | | | | 50 mL/min Magnesium = 1-1.9 | | | | | | | mg/dL Give magnesium oxide 800 | | | | | | | mg PO x1 * Check magnesium in | | | | | | | AM If unable to tolerate po or | | | | | | | magnesium < 1mg/dL use IV | | | | | | | magnesium replacement. Give PO or | | | | | | | IV but never both. Maximum | | | | | | | recommended infusion rate = 1 | | | | | | | gram/hour., | | | | | | + +-------+ +--------+---+---+ +-------+ +--------+---+---+ | Given | 10/13/19 | 800 mg | | | | | 20 6:44 | | | | | | AM PDT | | | | +-------+ +--------+---+---+ | Given | 10/12/19 | 800 mg | | | | | 20 6:40 | | | | | | AM PDT | | | | +-------+ +--------+---+---+ +---+---+ | | | +---+---+ + +---------+ +-----+ +---+ | magnesium sulfate 2 g/50 mL | New Bag | 10/14/19 | 2 g | 25 mL/hr | | | IVPB 2 g 2 g, Intravenous, | | 20 8:37 | | | | | Administer over 120 Minutes, | | AM PDT | | | | | DAILY PRN, Per protocol, Starting | | | | | | | 10/11/19 at 1111, NON-ICU | | | | | | | Protocol Replace magnesium once | | | | | | | per day based on morning | | | | | | | magnesium level. Use scale below | | | | | | | to determine dose. If further | | | | | | | replacement is required after | | | | | | | this morning dose of magnesium, | | | | | | | notify provider Protocol NOT | | | | | | | recommended if Scr > 1.8, | | | | | | | dialysis patients or CrCl < 50 | | | | | | | mL/min Magnesium = 1-1.9 mg/dL | | | | | | | Give magnesium sulfate 2 g IV x1 | | | | | | | * Check magnesium 2 hours | | | | | | | after infusion is completed If | | | | | | | magnesium still < 1.9 mg/dL, | | | | | | | contact provider for further | | | | | | | instruction. Give PO or IV but | | | | | | | never both. Maximum recommended | | | | | | | infusion rate = 1 gram/hour., | | | | | | + +---------+ +-----+ +---+ + +---+ | | | + +---+ | magnesium sulfate 4 g/100 mL | | | IVPB 4 g 4 g, Intravenous, | | | Administer over 240 Minutes, | | | DAILY PRN, Per protocol, Starting | | | Wed10/11/19 at 1111, NON-ICU | | | Protocol Replace magnesium once | | | per day based on morning | | | magnesium level. Use scale below | | | to determine dose. If further | | | replacement is required after | | | this morning dose of magnesium, | | | notify provider Protocol NOT | | | recommended if Scr > 1.8, | | | dialysis patients or CrCl < 50 | | | mL/min Magnesium < 1 mg/dL | | | Give magnesium sulfate 4 g IV x1 | | | * Check magnesium 2 hours | | | after infusion is completed If | | | magnesium still < 1.9 mg/dL, | | | contact provider for further | | | instruction. Give PO or IV but | | | never both. Maximum recommended | | | infusion rate = 1 gram/hour., | | + +---+ | | | + +---+ + +-------+ +------+---+---+ | melatonin tablet 3 mg 3 mg, | Given | 10/08/19 | 3 mg | | | | Oral, NIGHTLY PRN, Insomnia, | | 20 8:48 | | | | | Starting Wed10/03/19 at 2230 | | PM PDT | | | | + +-------+ +------+---+---+ + +---+ | | | + +---+ | morphine injection 2-4 mg 2-4 | | | mg, Intravenous, EVERY 2 HOURS | | | PRN, Other, breakthrough pain, | | | Starting 10/10/19 at 1216, | | | First dose must be the lowest | | | dose, can titrate to effective | | | dose by repeat of lowest dose | | | every 60 minutes prn pain, may | | | not exceed maximum dose ordered | | | per interval. Use Pasero Sedation | | | Scale., | | + +---+ | | | + +---+ + +-------+ +------+---+---+ | ondansetron (ZOFRAN) injection | Given | 10/09/19 | 4 mg | | | | 4 mg 4 mg, Intravenous, EVERY 4 | | 20 6:41 | | | | | HOURS PRN, Nausea, Vomiting, | | PM PDT | | | | | Starting 10/08/19 at 1431 | | | | | | + +-------+ +------+---+---+ +-------+ +------+---+---+ | Given | 10/08/19 | 4 mg | | | | | 20 11:18 | | | | | | PM PDT | | | | +-------+ +------+---+---+ | Given | 10/08/19 | 4 mg | | | | | 20 6:47 | | | | | | PM PDT | | | | +-------+ +------+---+---+ +---+---+ | | | +---+---+ + +-------+ +------+---+---+ | oxyCODONE (ROXICODONE) tablet | Given | 10/12/19 | 5 mg | | | | 5-15 mg 5-15 mg, Oral, EVERY 4 | | 20 8:14 | | | | | HOURS PRN, Pain, Starting Wed | | PM PDT | | | | | 10/11/19 at 0815, First dose must | | | | | | | be the lowest dose, can titrate | | | | | | | to effective dose by repeat of | | | | | | | lowest dose every 60 minutes prn | | | | | | | pain, may not exceed maximum dose | | | | | | | ordered per interval. Use Pasero | | | | | | | Sedation Scale., | | | | | | + +-------+ +------+---+---+ +---+---+ | | | +---+---+ + +-------+ +--------+---+---+ | potassium chloride (KLOR-CON) | Given | 10/16/19 | 40 mEq | | | | ER tablet 20-40 mEq 20-40 mEq, | | 20 8:37 | | | | | Oral, DAILY PRN, Per protocol, | | AM PDT | | | | | Starting Wed10/11/19 at 1111, | | | | | | | NON-ICU Protocol Replace | | | | | | | potassium once per day based on | | | | | | | morning potassium level. Use | | | | | | | scale below to determine dose. If | | | | | | | further replacement is required | | | | | | | after this morning dose of | | | | | | | potassium, notify provider | | | | | | | Protocol NOT recommended if Scr > | | | | | | | 1.8, dialysis patients or CrCl < | | | | | | | 50 mL/min [K+] =3.6 - 4 mEql/L | | | | | | | Give 20 mEq KCl PO x 1 dose | | | | | | | [K+] 3.0 - 3.5 mEql/L Give 40 | | | | | | | mEq KCl PO x 1 dose [K+] < 3.0 | | | | | | | mEq/L Notify provider * | | | | | | | Recheck K+ 4 hours after | | | | | | | replacement is done. Give either | | | | | | | tablet, liquid, or IV but never | | | | | | | more than one form. If repeat K | | | | | | | is still < 3.5, contact provider | | | | | | | for further instruction. May take | | | | | | | with food to decrease GI upset., | | | | | | | | | | | | | + +-------+ +--------+---+---+ +-------+ +--------+---+---+ | Given | 10/13/19 | 40 mEq | | | | | 20 6:43 | | | | | | AM PDT | | | | +-------+ +--------+---+---+ | Given | 10/12/19 | 40 mEq | | | | | 20 12:24 | | | | | | PM PDT | | | | +-------+ +--------+---+---+ +---+---+ | | | +---+---+ + +-------+ +--------+---+---+ | potassium chloride (KLOR-CON) | Given | 10/14/19 | 40 mEq | | | | packet 20-40 mEq 20-40 mEq, Per | | 20 6:32 | | | | | G Tube, DAILY PRN, Per Protocol, | | PM PDT | | | | | Starting 10/11/19 at 1111, | | | | | | | NON-ICU Protocol Replace | | | | | | | potassium once per day based on | | | | | | | morning potassium level. Use | | | | | | | scale below to determine dose. If | | | | | | | further replacement is required | | | | | | | after this morning dose of | | | | | | | potassium, notify provider | | | | | | | Protocol NOT recommended if Scr > | | | | | | | 1.8, dialysis patients or CrCl < | | | | | | | 50 mL/min [K+] =3.6 - 4 mEql/L | | | | | | | Give 20 mEq KCl PO x 1 dose | | | | | | | [K+] 3.0 - 3.5 mEql/L Give 40 | | | | | | | mEq KCl PO x 1 dose [K+] < 3.0 | | | | | | | mEq/L Notify provider * | | | | | | | Recheck K+ 4 hours after | | | | | | | replacement is done. Give either | | | | | | | tablet, liquid, or IV but never | | | | | | | more than one form. If repeat K | | | | | | | is still < 3.5, contact provider | | | | | | | for further instruction., | | | | | | + +-------+ +--------+---+---+ + +---+ | | | + +---+ | potassium chloride 20 mEq in | | | sodium chloride 0.9% 250 mL IVPB | | | 20 mEq, Intravenous, Administer | | | over 2 Hours, DAILY PRN, Per | | | protocol, Starting 10/11/19 at | | | 1111, NON-ICU Protocol Replace | | | potassium once per day based on | | | morning potassium level. Use | | | scale below to determine dose. If | | | further replacement is required | | | after this morning dose of | | | potassium, notify provider | | | Protocol NOT recommended if Scr > | | | 1.8, dialysis patients or CrCl < | | | 50 mL/min [K+] =3.6 - 4 mEql/L | | | Give 20 mEq KCl IV X 1 dose | | | * Recheck K+ 2 hours after | | | replacement is done. Give either | | | tablet, liquid, or IV but never | | | more than one form. If repeat K | | | is still < 3.5, contact provider | | | for further instruction., | | + +---+ | | | + +---+ + +---------+ +--------+-------+---+ | potassium chloride 40 mEq in | New Bag | 10/14/19 | 40 mEq | 130 | | | sodium chloride 0.9% 500 mL IVPB | | 20 9:10 | | mL/hr | | | 40 mEq, Intravenous, Administer | | AM PDT | | | | | over 4 Hours, DAILY PRN, Per | | | | | | | protocol, Starting 10/11/19 at | | | | | | | 1111, NON-ICU Protocol Replace | | | | | | | potassium once per day based on | | | | | | | morning potassium level. Use | | | | | | | scale below to determine dose. If | | | | | | | further replacement is required | | | | | | | after this morning dose of | | | | | | | potassium, notify provider | | | | | | | Protocol NOT recommended if Scr > | | | | | | | 1.8, dialysis patients or CrCl < | | | | | | | 50 mL/min [K+] 3.0 - 3.5 mEql/L | | | | | | | Give 40 mEq KCl IV X 1 dose | | | | | | | * Recheck K+ 2 hours after | | | | | | | replacement is done. Give either | | | | | | | tablet, liquid, or IV but never | | | | | | | more than one form. If repeat K | | | | | | | is still < 3.5, contact provider | | | | | | | for further instruction., | | | | | | + +---------+ +--------+-------+---+ +---------+ +--------+-------+---+ | New Bag | 10/12/19 | 40 mEq | 130 | | | | 20 8:15 | | mL/hr | | | | PM PDT | | | | +---------+ +--------+-------+---+ +---+---+ | | | +---+---+ + +-------+ +---------+---+---+ | promethazine (PHENERGAN) (IV | Given | 10/09/19 | 6.25 mg | | | | ONLY) injection 6.25 mg 6.25 mg, | | 20 8:58 | | | | | Intravenous, EVERY 15 MIN PRN, | | PM PDT | | | | | Nausea, Starting 10/08/19 at | | | | | | | 1431, For 4 doses, TAKE | | | | | | | PRECAUTIONS WHEN ADMINISTERING | | | | | | | Dilute to 10-20 mL with NS. Give | | | | | | | over 2-3 minutes into large vein. | | | | | | | Use Ondansetron first if both | | | | | | | are ordered., | | | | | | + +-------+ +---------+---+---+ +-------+ +---------+---+---+ | Given | 10/09/19 | 6.25 mg | | | | | 20 2:37 | | | | | | AM PDT | | | | +-------+ +---------+---+---+ +---+---+ | | | +---+---+ + +-------+ +-----+---+---+ | sodium chloride tablet 1 g 1 | Given | 10/16/19 | 1 g | | | | g, Oral, 3 TIMES DAILY, First | | 20 8:37 | | | | | dose on Wed10/10/19 at 1400 | | AM PDT | | | | + +-------+ +-----+---+---+ +-------+ +-----+---+---+ | Given | 10/15/19 | 1 g | | | | | 20 11:16 | | | | | | PM PDT | | | | +-------+ +-----+---+---+ | Given | 10/15/19 | 1 g | | | | | 20 4:21 | | | | | | PM PDT | | | | +-------+ +-----+---+---+ +---+---+ | | | +---+---+ + +-------+ +--------+---+---+ | thrombin (recombinant) | Given | 10/07/19 | 5,000 | | | | (RECOTHROM) solution PRN, | | 20 9:04 | Units | | | | Starting 10/07/19 at 0904, | | AM PDT | | | | | Intra-op | | | | | | + +-------+ +--------+---+---+ +---+---+ | | | +---+---+ documented in this encounter Additional Health Concerns + + + + + | Infection | Onset Date | Last Indicated | Resolved Time | + + + + + | Rule out C. | 10/12/2019 | 10/12/2019 | 10/12/2019 5:07 PM | | Difficile | | | PDT | + + + + + documented as of this encounter
--- OUTSIDE RECORDS SUMMARY | ~2019-10-23 | XMS | Encounter Summary ---
Demographics + + + | Address | [address] | | | [place] [address] | + + + | Home Phone | | + + + | Preferred Language | Unknown | + + + | Marital Status | Single | + + + | Moravian Affiliation | BAP | + + + | Race | White | + + + | Ethnic Group | Not or | + + + Author + + + | Author | [facility] [employer] [facility] | + + + | Organization | [facility] | + + + | Address | Unknown | + + + | Phone | Unavailable | + + + Support + + +---------+ + | Name | Relationship | Address | Phone | + + +---------+ + | Lele Conley | ECON | Unknown | | + + +---------+ + Care Team Providers + +------+ + | Care Swine Extension Field Specialist Name | Role | Phone | + +------+ + PCP | Unavailable | + +------+ + Encounter Details +--------+ + + + + | Date | Type | Department | Care Team | Description | +--------+ + + + + | / | Results | Vascular Surgery | Orlando Churchill, | | | 2007 | Only | Interventional [address] | | | | | [address] [facility] | [facility] [address] | | | | | [address] Mailcode: [address] | [place], [place] | | | | | [facility] | [address] | | | | | [place], [place] | [phone] | | | | | [address] | | | | | | [phone] | | | +--------+ + + + [...] | + +--------+ + + + | PRODUCT - RED CELLS | Routin | 04/29/2007 | | Results for this | | LEUKOREDUCED | e | 7:16 PM | | procedure are in the | | | | PST | | results section. | + +--------+ + + + | TYPE AND CROSSMATCH | Routin | 04/29/2007 | | Results for this | | | e | 6:58 PM | | procedure are in the | | | | PST | | results section. | + +--------+ + + + documented in this encounter Results RED CELLS, LEUKOREDUCED (04/29/2007 7:16 PM PST) + + + + + + | Component | Value | Ref Range | Performed | Pathologist | | | | | At | Signature | + + + + + + | PRODUCT | -1 RED BLOOD | | [facility] | | | DESCRIPTION | CELLS,ADENINE-SALINE | | DEPARTMENT | | | | ADDED,LEUKOCYTES REDUCED | | OF | | | | | | PATHOLOGY | | + + + + + + | PRODUCT | [id number] | | [facility] | | | UNIT # | | | DEPARTMENT | | | | | | OF | | | | | | PATHOLOGY | | + + + + + + | UNIT ABO | A | | [facility] | | | | | | DEPARTMENT | | | | | | OF | | | | | | PATHOLOGY | | + + + + + + | UNIT RH | POS | | [facility] | | | | | | DEPARTMENT | | | | | | OF | | | | | | PATHOLOGY | | + + + + + + | CROSSMATCH | Compatible | | [facility] | | | ANALYSIS | | | DEPARTMENT | | | | | | OF | | | | | | PATHOLOGY | | + + + + + + | STATUS OF | Released | | [facility] | | | UNIT | | | DEPARTMENT | | | | | | OF | | | | | | PATHOLOGY | | + + + + + + + + | Specimen | + + | | + + + + + + + | Performing | Address | City/State/Zipcode | Phone Number | | Organization | | | | + + + + + | [facility]MENT [facility] | [address] | [place] [address] | | | PATHOLOGY | [address] | | | + + + + + | [facility] DEPARTMENT OF | [address] | [place] [address] | | | PATHOLOGY | [address] | | | + + + + + TYPE AND CROSSMATCH (04/29/2007 6:58 PM PST) + + + + + + | Component | Value | Ref Range | Performed | Pathologist | | | | | At | Signature | + + + + + + | ABO GROUP | A | | [facility] | | | | | | DEPARTMENT | | | | | | OF | | | | | | PATHOLOGY | | + + + + + + | RH TYPE | Positive | | [facility] | | | | | | DEPARTMENT | | | | | | OF | | | | | | PATHOLOGY | | + + + + + + | Antibody | Negative | | [facility] | | | Screen | | | DEPARTMENT | | | | | | OF | | | | | | PATHOLOGY | | + + + + + + + + | Specimen | + + | | + + + + + + + | Performing | Address | City/State/Zipcode | Phone Number | | Organization | | | | + + + + + | [facility] DEPARTMENT OF | [address] | [place] [address] | | | PATHOLOGY | [address] | | | + + + + + | [facility] | [address] | [place] [address] | | | PATHOLOGY | [address] | | | + + + + + documented in this encounter Visit Diagnoses Not on filedocumented in this encounter"
--- OUTSIDE RECORDS SUMMARY | ~2019-10-23 | XMS | Encounter Summary ---
Demographics + + + | Address | [address] | | | [place] [address] | + + + | Home Phone | | + + + | Preferred Language | Unknown | + + + | Marital Status | Single | + + + | Jew Affiliation | 1009 | + + + | Race | White | + + + | Ethnic Group | Not or | + + + Author + + + | Author | [facility] | | | and [place] | + + + | Organization | [facility] | | [...] Team Providers + +------+ + | Care Blacksmith Assistant Name | Role | Phone | [...] + | 10/07/ | Anesthesia | [facility] | Katina, | | | 2020 | [facility] | DO [address] | | | | | OPERATING ROOM [address] | | | | | [place] | [place] [address] | | | | | [place], [place] | [phone] | | | | | [address] | | | | | | [phone] | | | +--------+ + + + [...] +----+---+ + + | | 1 | [place] | | | | 0 | 43-degrees | | | | 0 | | | | | 0 | | | +----+---+ + + | | 1 | Quick Note | [facility] transfusion Unit [id number] | | | 3 | | | | | 3 | | | | | 2 | | | +----+---+ + + | | 1 | Quick Note | [facility] unit [id number] | | | 3 | | | [...] + + + | Periph | 10/06/19; 1857; Right; Posterior | 10/06/19 1857 by | 10/11/19 0900 by | | eral | (dorsal); Forearm; | Ian Linn RN | Amanda Tim RN | | IV | llev-vwd-vrnvit catheter system; | | | | | 20 gauge; distraction; IV leaking | | | | | ; 10/11/19; 0900 | | | +--------+ + + + | Urethr | 10/07/19; 0733; indicated due to | 10/07/19 0733 by | 10/09/19 2338 by | | al | specific surgical [...] Starkey RN | | Site | | Schoengarth, RN | | +--------+ + + + | Drain/ | 10/07/19; 1532; #3; Right; | 10/07/19 1532 by | 10/11/19 0900 by | | Device | gravity; removed in past; | Beverley Logan | Kathie Llamas RN | | Site | 10/11/19; 09 (not present upon | HARRISON Flanagan | | | | arrival) | | | +--------+ + + + | Drain/ | 10/07/19; 1534; #2; Right; | 10/07/19 1534 by | 10/11/19 0900 by | | Device | (groin); gravity; removed in | Beverley Logan | Kathie Llamas RN | | Site | past; 10/11/19; 09 (not present | HARRISON Flanagan | | | | upon arrival) | | | +--------+ + + + | Drain/ | 10/08/19; #4; Right; anterior; | 10/08/19 0000 by | 10/11/19 0800 by | | Device | thigh; collapsible closed device; | Karishma Hunter RN | Amanda Tim RN | | Site | 10/11/19; 08 | | | +--------+ + + + | Airway | Placement Date: 10/08/19; | 10/08/19 09 by | 10/08/19 142 by | | | Placement Time: 945 [...] | | | | 10/08/19; Removal Time: 1427 | | | +--------+ + + + | Drain/ | 10/08/19; 1344; #5; Left | 10/08/19 1344 by | 10/11/19 0900 by | | Device | (bilateral drain 7 f deny | Beverley Logan | Kathie Llamas RN | | Site | drain); anterior; thigh; | HARRISON Flanagan | | | | collapsible closed device; | | | | | removed in past; 10/11/19; 0900 | | | | | (not present [...] EVALUATION Jairo Theodore 59 y.o. male 1960 [id number] Procedure(s) THROMBECTOMY / EMBOLECTOMY of fem fem bypass (N/A ) BYPASS GRAFT FEMORAL-POPLITEAL (Bilateral Leg Upper) ANGIOGRAM - EXTREMITY BILATERAL (92824) (Bilateral ) Cooperates? Yes Mental Status Answers [...] Orlando Ambriz DO 10/08/2019 2:39 PM PDT [facility] Orlando Ambriz DO at 2019 [...] 9:25 AM PDT ANESTHESIA PREANESTHESIA EVALUATION Jairo Kwaku Arben 59 y.o. 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 male 1960 [id number] THROMBECTOMY / EMBOLECTOMY of fem fem bypass (N/A ) BYPASS GRAFT FEMORAL-POPLITEAL (Bilateral Leg Upper) ANGIOGRAM - EXTREMITY BILATERAL (44161) (Bilateral ) HANDOFF NOTE Handoff Protocol Used: [...] Orlando Ambriz DO 10/08/2019 2:33 PM PDT [facility] by Orlando Ambriz DO at 2019 2:34 PM PDTdocumented in this encounter Plan of Treatment +--------+---------+ + [...] [place] | | | | | | [address] | | | | | | | [...] | | | DO Authorizing provider: Orlando MacDonnell, DO Please see | | | intraoperative [...] | +---+---+ + +-------+ +--------+---+---+ | glycopyrrolate (EMEARLD) | Given | 10/08/19 | 0.4 mg [...]
--- OUTSIDE RECORDS SUMMARY | ~2019-10-23 | XMS | Encounter Summary ---
Demographics + + + | Address | [address] | | | [place] [address] | + + + | Home Phone | | + + + | Preferred Language | Unknown | + + + | Marital Status | Single | + + + | Yazdanism Affiliation | BAP | + + + | Race | White | + + + | Ethnic Group | Not or | + + + Author + + + | Author | [facility] | + + + | Organization | [facility] | + + + | Address | Unknown | + + + | Phone | Unavailable | + + + Support + + +---------+ + | Name | Relationship | Address | Phone | + + +---------+ + | Lele Conley | ECON | Unknown | | + + +---------+ + Care Team Providers + +------+ + | Care Plant Guide Name | Role | Phone | + +------+ + PCP | Unavailable | + +------+ + Encounter Details +--------+ + + + + | Date | Type | Department | Care Team | Description | +--------+ + + + + | 04/29/ | Procedure - | Vascular Surgery | Orlando Churchill, | Operative Report | | 2007 | | Interventional [id number] | [id number] | | | | Transcribed | INDIGO Resendiz [facility] | Beny Ayesha Catherine | | | | | Florin Mailcode: OP11 | [place], [place] | | | | | [facility] | [address] | | | | | [place], [place] | [phone] | | | | | [address] | | | | | | [phone] | | | +--------+ + + + [...] + documented as of this encounter Procedure Orlando Tamayo - 04/30/2007 12:00 AM PSTAssociated Order(s): OPERATION RECORD [id number] FROILAN JUAREZ [id number] Date: 04/30/2007 Attending Surgeon: Orlando Churchill M.D. Co-Surgeon: Rudolph Brewer M.D. Reinsurance Claims Analyst(s): Jacky Morgan M.D. 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 Procedures Performed: Endovascular repair of abdominal aortic pseudoaneurysm. Anesthesia: General. Indications: This is a 47-year-old man who was flown to [facility] with an abdominal aortic pseudoaneurysm at the proximal anastomosis of a previous aortobifemoral graft. He has suitable anatomy for endovascular repair of the pseudoaneurysm, and is taken to surgery for this. Findings: 1. The repair was performed through a right femoral cutdown accessing the distal moncada of his right aortofemoral graft limb. 2. The aneurysm was repaired with 2 [employer] endovascular components. The most proximal component is a 23 x 12 mm iliac flared limb which was replaced in a reversed fashion such that the 23 mm component is just distal to the left renal artery origin. The graft was then extended down the right aortofemoral graft limb with a 14 mm iliac extension limb. There was an infolding in the stent in its midportion which was further repaired with a Palmaz balloon expandable stent. 3. Completion arteriogram demonstrated excellent arterial flow in the right aortofemoral graft limb. There was no evidence of endoleak. 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 Procedure: The procedure was performed in the interventional radiology suite. The patient was brought to the angiography suite, and general anesthesia was administered by the anesthesiologists. The abdomen and legs were then prepped and draped sterilely. A longitudinal right groin incision was made using the patient's previous right groin incision from his aortobifemoral bypass. Sharp dissection and electrocautery were used to dissect down to the moncada of the right aortofemoral graft limb. The graft limb was accessed with an 18-gauge needle and a guidewire advanced under direct vision into the abdominal aorta. A 4-Scottish pigtail catheter was then placed over the guidewire at approximately the level of the renal artery origins. A separate site on the graft limb was then punctured with an 18-gauge needle, and the guidewire advanced into the abdominal aorta. The patient was systematically heparinized at this point. A 16-Scottish sheath was then placed over the guidewire and advanced approximately to the level of the renal artery origin under direct vision. An arteriogram was then performed to demonstrate the renal artery origins. A 12 x 23 mm iliac extension limb was then reversed in its sheath and placed such that the 23 mm portion is most cephalad. An arteriogram was performed to confirm placement of the stent just distal to the left renal artery origin, and after confirming this, the stent was deployed. An extension limb was then placed to extend the graft down the right aortofemoral graft limb. An iliac trainman that is 12 mm at the proximal end and 14 at the distal end, was deployed with a 2-stent body overlap between the 2 components. The graft was deployed under direct vision, ending in the right aortofemoral graft limb. Balloon angioplasty was then performed of the entire graft. We did notice an area of infolding in the graft that we felt may be potentially flow limiting, and therefore, an additional stent was placed. A bare metal Palmaz stent was mounted, a 12 mm balloon, and was deployed at the site of fabric infolding, with resolution of the infolding. A completion arteriogram was then performed demonstrating excellent flow through the stent with no evidence of endoleak. The pigtail catheter and sheath were then removed and hemostasis achieved with 4-0 Prolene suture. The wound was then irrigated and closed in multiple layers. He had excellent Doppler signals in his feet at the completion of the case. He tolerated the procedure well without complication and was taken to the recovery room in stable condition. Orlando Churchill M.D. OUSMANE / HS [id number] / [id number] / [id number] / Electronically signed by Orlando Churchill 05-13-2007 01:33:44 PM documented in this enco unter Plan of Treatment Not on filedocumented as of this encounter Procedures + +--------+ + + + | Procedure Name | Priori | Date/Time | Associated Diagnosis | Comments | | | ty | | | | + +--------+ + + + | OPERATION RECORD | | 04/30/2007 | | Results for this | | | | 12:00 AM | | procedure are in the | | | | PST | | results section. | + +--------+ + + + documented in this encounter Results OPERATION RECORD (04/30/2007 12:00 AM PST) + + | Procedure Note | + + | Orlando Churchill MD - 04/30/2007 12:00 AM PST [id number] | | [id number] FROILAN JUAREZ [id number] Date: | | 04/30/2007 Attending Surgeon: Orlando Churchill M.D. Co-Surgeon: Rudolph Brewer M.D. | | Reinsurance Claims Analyst(s): Leroy Jay M.D. Marc Arevalo M.D. 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 Postoperative Diagnosis(es): Abdominal aortic | | pseudoaneurysm. Procedures Performed: Endovascular repair of abdominal aortic | | pseudoaneurysm. Anesthesia: General. Indications: This is a 47-year-old man who was | | flown to [facility] with an abdominal aortic pseudoaneurysm at the proximal anastomosis of a | | previous aortobifemoral graft. He has suitable anatomy for endovascular repair of the | | pseudoaneurysm, and is taken to surgery for this. Findings: 1. The repair was performed | | through a right femoral cutdown accessing the distal moncada of his right aortofemoral | | graft limb. 2. The aneurysm was repaired with 2 [employer] endovascular components. | | The most proximal component is a 23 x 12 mm iliac flared limb which was replaced in a | | reversed fashion such that the 23 mm component is just distal to the left renal artery | | origin. The graft was then extended down the right aortofemoral graft limb with a 14 mm | | iliac extension limb. There was an infolding in the stent in its midportion which was | | further repaired with a Palmaz balloon expandable stent. 3. Completion arteriogram | | demonstrated excellent arterial flow in the right aortofemoral graft limb. There was no | | evidence of endoleak. 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 | | Procedure: The procedure was performed in the interventional radiology suite. The | | patient was brought to the angiography suite, and general anesthesia was administered by | | the anesthesiologists. The abdomen and legs were then prepped and draped sterilely. A | | longitudinal right groin incision was made using the patient's previous right groin | | incision from his aortobifemoral bypass. Sharp dissection and electrocautery were used | | to dissect down to the moncada of the right aortofemoral graft limb. The graft limb was | | accessed with an 18-gauge needle and a guidewire advanced under direct vision into the | | abdominal aorta. A 4-Scottish pigtail catheter was then placed over the guidewire at | | approximately the level of the renal artery origins. A separate site on the graft limb | | was then punctured with an 18-gauge needle, and the guidewire advanced into the | | abdominal aorta. The patient was systematically heparinized at this point. A 16-Scottish | | sheath was then placed over the guidewire and advanced approximately to the level of the | | renal artery origin under direct vision. An arteriogram was then performed to | | demonstrate the renal artery origins. A 12 x 23 mm iliac extension limb was then | | reversed in its sheath and placed such that the 23 mm portion is most cephalad. An | | arteriogram was performed to confirm placement of the stent just distal to the left | | renal artery origin, and after confirming this, the stent was deployed. An extension | | limb was then placed to extend the graft down the right aortofemoral graft limb. An | | iliac trainman that is 12 mm at the proximal end and 14 at the distal end, was deployed | | with a 2-stent body overlap between the 2 components. The graft was deployed under | | direct vision, ending in the right aortofemoral graft limb. Balloon angioplasty was | | then performed of the entire graft. We did notice an area of infolding in the graft that | | we felt may be potentially flow limiting, and therefore, an additional stent was | | placed. A bare metal Palmaz stent was mounted, a 12 mm balloon, and was deployed at the | | site of fabric infolding, with resolution of the infolding. A completion arteriogram | | was then performed demonstrating excellent flow through the stent with no evidence of | | endoleak. The pigtail catheter and sheath were then removed and hemostasis achieved with | | 4-0 Prolene suture. The wound was then irrigated and closed in multiple layers. He had | | excellent Doppler signals in his feet at the completion of the case. He tolerated the | | procedure well without complication and was taken to the recovery room in stable | | condition. Orlando Churchill M.D. OUSMANE / REBEL [id number] / [id number] / [id number] / D: | | 04/30/2007 Electronically signed by Orlando Churchill 05-13-2007 01:33:44 | | PM | | bypass. Sharp dissection and electrocautery were used to dissect down to | | the moncada of the right aortofemoral graft limb. | | | | The graft limb was accessed with an 18-gauge needle and a guidewire | | advanced under direct vision into the abdominal aorta. A 4-Scottish pigtail | | catheter was then placed over the guidewire at approximately the level of | | the renal artery origins. | | | | A separate site on the graft limb was then punctured with an 18-gauge | | needle, and the guidewire advanced into the abdominal aorta. The patient | | was systematically heparinized at this point. A 16-Scottish sheath was then | | placed over the guidewire and advanced approximately to the level of the | | renal artery origin under direct vision. | | | | An arteriogram was then performed to demonstrate the renal artery origins. | | A 12 x 23 mm iliac extension limb was then reversed in its sheath and | | placed such that the 23 mm portion is most cephalad. An arteriogram was | | performed to confirm placement of the stent just distal to the left renal | | artery origin, and after confirming this, the stent was deployed. | | | | An extension limb was then placed to extend the graft down the right | | aortofemoral graft limb. An iliac trainman that is 12 mm at the proximal | | end and 14 at the distal end, was deployed with a 2-stent body overlap | | between the 2 components. The graft was deployed under direct vision, | | ending in the right aortofemoral graft limb. | | | | Balloon angioplasty was then performed of the entire graft. We did notice | | an area of infolding in the graft that we felt may be potentially flow | | limiting, and therefore, an additional stent was placed. A bare metal | | Palmaz stent was mounted, a 12 mm balloon, and was deployed at the site of | | fabric infolding, with resolution of the infolding. | | | | A completion arteriogram was then performed demonstrating excellent flow | | through the stent with no evidence of endoleak. The pigtail catheter and | | sheath were then removed and hemostasis achieved with 4-0 Prolene suture. | | The wound was then irrigated and closed in multiple layers. He had | | excellent Doppler signals in his feet at the completion of the case. He | | tolerated the procedure well without complication and was taken to the | | recovery room in stable condition. | | | | | | | | | | Orlando Churchill M.D. | | | | GJL / HS | | [id number] / [id number] / [id number] / | | | | | | | | | | | | Electronically signed by Orlando Churchill 05-13-2007 01:33:44 PM | | | | | + + documented in this encounter Visit Diagnoses Not on filedocumented in this encounter"
--- OUTSIDE RECORDS SUMMARY | ~2019-10-23 | XMS | Encounter Summary ---
Demographics + + + | Address | [address] | | | [place] [address] | + + + | Home Phone | | + + + | Preferred Language | Unknown | + + + | Marital Status | Single | + + + | Bahai Affiliation | 1009 | + + + | Race | White | + + + | Ethnic Group | Not or | + + + Author + + + | Author | [facility] | | | and [place] | + + + | Organization | [facility] | | | and [...] Team Providers + +------+ + | Care Truck Cleaner Name | Role | Phone | + +------+ + | No, Physician | PCP | Unavailable | + +------+ + Encounter Details +--------+ + + + + | Date | Type | Department | Care Team | Description | +--------+ + + + + | 10/06/ | Anesthesia | [facility] | Rudolph Lowery | | | 2020 | Event | [facility] | MD [address] | | | | | [address]PER[address] | [address] | | | | | [address] | [place] [address] | | | | | [place], [place] | [phone] | | | | | [address] | | | | | | [phone] | Hossein Gregorio, Taisha, | | | | | | UNSTACKER [address] [facility] | | | | | | [place] [address] | | | | | | [phone] | | | | | | | [...] EVALUATION Jairo Covarrubiases 59 y.o. male 1960 [id number] Procedure(s): REPAIR PSEUDOANEURYSM- FEMORAL (Right ) Medical,anesthesia, [...] who presents as a tra nsfer from [facility] ED for pseudoaneurysm of the right [...] to aid in hemodynamic monitoring. documented in is encounter Plan of Treatment +--------+---------+ + + + | Date | Type | Specialty | Care Team | Description | +--------+---------+ + + + | 10/24/ | Office | Vascular Surgery | Ricci De León DNP | | | 2019 | Visit | | [address] | | | | | | [place] | | | | | | [id number] | | | | | | | | +--------+---------+ + + + documented as of this encounter Visit Diagnoses Not on filedocumented in this encounter"
--- OUTSIDE RECORDS SUMMARY | ~2019-10-23 | XMS | Encounter Summary ---
Demographics + + + | Address | [address] | | | [place] [address] | + + + | Home Phone | | + + + | Preferred Language | Unknown | + + + | Marital Status | Single | + + + | Episcopal Affiliation | BAP | + + + [...] Providers + +------+ + | Care Rn Shift Mgr Name | Role | Phone | + [...] | | | | cribed | | [facility] | | | | | | [place] [address] | | | | | | [phone] | | +--------+ + + + + [...] documented as of this encounter Progress Notes Bian Harrington - 05/18/2007 9:27 AM PDT [id number] 05/12/19 08 [id number] FROILAN JUAREZ [id number] Date: 05/12/2007 Patient: Jairo Theodore MR# [id number] The patient called to say that he is not able to keep his appointment on May 16, 2007, due to transportation issues. The patient cannot afford gas from [employer]. He states he is doing well. His incision line is without erythema, edema, or exudate. He is having no pain and not requiring any oxycodone. He is in the process of finding a PCP. He does have a 6-month refill of his metoprolol which he is taking. Bina Harrington, N.P. / [id number] / [id number] / [id number] / [id number] C: 05/18/2007 rosa documented in this encounter Plan of Treatment Not on filedocumented as of this encounter Visit Diagnoses Not on filedocumented in this encounter"
--- OUTSIDE RECORDS SUMMARY | ~2019-10-23 | XMS | Encounter Summary ---
Demographics + + + | Address | [address] | | | [place] [address] | + + + | Home Phone | | + + + | Preferred Language | Unknown | + + + | Marital Status | Single | + + + | Lutheran Affiliation | 1009 | + + + | Race | White | + + + | Ethnic Group | Not or | + + + Author + + + | Author | [facility] | | | and [place] | + + + | Organization | [facility] | | | [...] Team Providers + +------+ + | Care Supervisor Wet Room Name | Role | Phone | + [...] | | | | | | sm ([facility]) | MD Alissa [address] | | | | | | Cellulitis | [address] | | | | | | of right | [place], [place] | | | | | | foot | [address] | | | | | | Thrombosis | Phone: | | | | | | of | [phone] | | | | | | femoral-femo | Fax: | | | | | | ral bypass | [phone] | | | | | | graft ([facility]) | | | | | | | [...] + + | 10/02/ | Hospital | [facility] | Jairo Renner MD | Pseudoaneurysm ([facility]) | | 2020 - | Encounter | [facility] | [address] | right aorto femoral | | | | [address] | [place] [address] | bypass (Primary | | 10/15/ | | [place], [place] | [phone] | Dx); Peripheral | | 2019 | | [phone] | | arterial disease | | | | [phone] | Latoya Oh, | ([facility]); | | | | | [address] | Pseudoaneurysm | | | | | [place] [address] | ([facility]); Peripheral | | | | | [phone] | arterial disease | | | | | | ([facility]); Cellulitis of | | | | | Chyna Shook MD | right foot; | | | | | [address] | Thrombosis of | | | | | [place] [address] | femoral-femoral | | | | | [phone] | bypass graft (HCC); | | | | | | Post-operative pain | | | | | Tera Vázquez | | | | | | Jose Castañeda MD [address] | | | | | [address] | | | | | | [place] [address] | | | | | | [phone] | | | | | | | | | | | | Mundo Pack | | | | | | Poli Powell MD [address] | | | | [address] [place], [place] | | | | | | [address] | | | | | | | [...] GRAFT FEMORAL-POPLITEAL (Bilateral) ANGIOGRAM - EXTREMITY BILATERAL (03202) (Bilateral) Chief Complaint: No chief complaint on [...] who was admitted on 10/03/2019 Transfer from [facility] with bilateral hip and pelvic burning [...] Anderson, Nicolas Graham Date/Time: 10/04/2019 12:06 PM No results found. Outstanding Issues: Principal Problem: Peripheral arterial disease / Pseudoaneurysm right aorto femoral bypass status post v ascular surgery, patient will continue with wound care, will have wound check in 2 weeks wit [facility] to provide transportation, continue with aspirin 81 mg daily, Plavix 75 mg daily, atorv astatin 40 mg daily. Active Problems: Alcohol abuse/ Tobacco abuse advised to stop smoking and drinking Cellulitis of right foot has been completely treated with Augmentin while in the hospital Discharge Information: Follow up: Teresita Bob MD [address] [place] [address] Follow up for Home health Wound Care ZULY GRIFFIN [facility] [address] [place] [phone] Follow up Wound Care and Physical [...] doctor for adjustment of doses and medications. Airamnoelle angel take all the medication to your [...] you recover. Don t drive for at skokm3nval after your surgery or while you are [...] swimming until your incisions are well healed (usua lly at leas 2 weeks). You can shower [...] better overnight Chest pain or trouble breathing [employer] last reviewed this educational content on 11/29/201819999288-0366 [employer]. [address] [place] [address], [place] [address]. All righ ts reserved. This information is [...] of developing AAA decreases. To learn more Smokefree.gov/daek-lw-ay-expert National Cancer [employer] Smoking Quitline:958-47S-BTRR (786-547-2214) [employer] last reviewed this educational content on 12/30/201819997005-2386 [employer]. [address] [place] [address]. All righ ts reserved. This information is [...] find a support program: Free national quitline 452-GTQD-ZQR (084-135-8743) [facility] quit-smoking programs [employer] 675-503-4542 [place] [employer] 886-221-9024 Support at home is important too. Family and friends can offer praise and reassurance. If t he smoker in your life finds it hard to quit, encourage them to keep trying. Try jewj-yub-fdwzitn medicine Nicotine replacement therapymay make iteasier to [...] to quit smoking, try these resources: www.cdc.gov/tobacco/quit_smoking/ 573-PKNM-NXG (050-956-7362) www.smokefree.gov 260-96T-HONC (402-767-1876) www.lung.org/stop-smoking/ 800-LUNGUSA (139-736-1604) [employer] last reviewed this educational content on 01/29/201919998525-2623 [employer]. [address] [place] [address]. All righ ts reserved. This information is [...] PA- C - 10/16/2019 7:20 AM PDT [facility] Service: Vascular Surgery Progress Note Hospital Day: LOS: 13 days Post-Op Day: 11/06 SUBJECTIVE Patient Summary: The patient is a 59 y.o. 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 He unde rwent aortobifemoral bypass in 1999. [...] scan which revealed enlargement of known right PUSHER OPERATOR pseudoaneurysm. He was transferred to [facility] for evaluation and Vascular was consulted [...] importance of following up with our office mcc. Still recommend discharge ho me with assist [...] Nigel Starkey RN 10/15/2019 6:53 PM PDT amone, Mundo Powell MD - 10/15/2019 10:30 AM PDT . Jairo Theodore [id number] Hospital Day: 12 SUBJECTIVE Events Overnight: Patient [...] been in touch with his Merrill, Lele [phone] and he did not want me to [...] and management as well as Computerized Physician Baseball Scout. Dictation software, [employer], used which may contain error for similar sounding words even af ter review. Portions of this chart may have been copied from previous notes for continuity of care. 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 He unde rwent aortobifemoral bypass in 1999. [...] scan which revealed enlargement of known right PUSHER OPERATOR pseudoaneurysm. He was transferred to [facility] for evaluation and Vascular was consulted [...] minimize swelling. Call with any neurovascular changes. [facility] [place] with management of this patient. Disposition: Inpatient Code Status: Full Chelsi Atreaga PA-C 10/15/2019 Zuleyka Avila RN - 10/14/2019 6:37 PM PDTPatient's VSS. OOB to chair and ambulated in room. Dr campbell to R groin changed X1. AUGUSTUS drain remains in place. Potassium and magnesium levels che ked after replacement. Phosphorus checked and low. [...] Agree with previous assessment. Zuleyka Gamez RN amone, Mundo Powell MD - 10/14/2019 9:23 AM PDT Jairo Theodore [id number] Hospital Day: 11 SUBJECTIVE Events Overnight: Patient [...] right [facility] left [facility] with 8 mm PTFE. Continue with [...] been in touch with his Merrill, Lele [phone] and he did not want me to [...] and management as well as Computerized Physician Baseball Scout. Dictation software, [employer], used which may contain error for similar sounding words even af ter review. Portions of this chart may have been copied from previous notes for continuity of care. Mundo Pack MD, FACP, FAAP 10/14/2019 il son, Chelsi Hebert TRACEY-Megan - 10/14/2019 8:44 AM PDT [facility] Service: Vascular Surgery Progress Note Hospital [...] history of alcohol abuse who presented to [facility] with com plaints of cellulitis of right leg as well as enlarging pseudoaneurysm of right PUSHER OPERATOR. He unde rwent aortobifemoral bypass in 1999. [...] scan which revealed enlargement of known right PUSHER OPERATOR pseudoaneurysm. He was transferred to [facility] for evaluation and Vascular was consulted [...] 1.7 Estimated Energy Needs Energy Calorie Requirements: 7644-7354(28-32 kcal/kg per 54.3 kg admit wt ) [...] PA- C - 10/13/2019 10:33 AM PDT [facility] Service: Vascular Surgery Progress Note Hospital [...] history of alcohol abuse who presented to [facility] with com plaints of cellulitis of right leg as well as enlarging pseudoaneurysm of right PUSHER OPERATOR. He unde rwent aortobifemoral bypass in 1999. [...] scan which revealed enlargement of known right PUSHER OPERATOR pseudoaneurysm. He was transferred to [facility] for evaluation and Vascular was consulted [...] Code Status: Full Arlene Lamar PA-C 10/13/2019 vjohanna , Mundo Powell MD - 10/13/2019 9:19 AM PDTFormatting of this note might be different from t wyatt original. Jairo Theodore [id number] Hospital Day: 10 SUBJECTIVE Events Overnight: Patient [...] been in touch with his Merrill, Lele [phone] and he did not want me to [...] and management as well as Computerized Physician Baseball Scout. Dictation software, [employer], used which may contain error for similar [...] different from the orig inal. Jairo Theodore [id number] Hospital Day: 9 SUBJECTIVE Events Overnight: Patient [...] been in touch with his Merrill, Lele [phone] and he did not want me to [...] and management as well as Computerized Physician Baseball Scout. Dictation software, [employer], used which may contain error for similar sounding words even af ter review. Portions of this chart may have been copied from previous notes for continuity of care. Mundo Pack MD, FACP, FAAP 10/12/2019 il son, Chelsi HebertJUICE - 10/12/2019 9:17 AM PDT [facility] Service: Vascular Surgery Progress Note Hospital [...] history of alcohol abuse who presented to [facility] with com plaints of cellulitis of right leg as well as enlarging pseudoaneurysm of right PUSHER OPERATOR. He unde rwent aortobifemoral bypass in 1999. [...] scan which revealed enlargement of known right PUSHER OPERATOR pseudoaneurysm. He was transferred to [facility] for evaluation and Vascular was consulted [...] Color, UA YELLOW Clarity, Urine CLEAR Specific Haskell, Urine 1.008 1.002 - 1.030 Leukocyte esterase, [...] BANK. BLOOD BANK COMMENT Testing performed at [facility];[address] [place] [address] Type and Screen Collection Time: 10/12/19 7:52 AM Result Value Ref Range ABO Rh A POSITIVE Antibody Screen NEGATIVE BB BAND [id number] BB BAND Testing performed at [facility];[address] [place] [address] UNIT # [id number] Product Code LEUKODEPLETED PC Unit Division 00 Unit Status ALLOCATED Transfusion Status OK TO TRANSFUSE CROSSMATCH RESULT COMPATIBLE UNIT # [id number] Product Code LEUKODEPLETED PC Unit Division 00 [...] call wit h any neurovascular changes. Appreciate hospitalitis assistance [...] this note might be different from the gregorio Theodore [id number] Hospital Day: 8 SUBJECTIVE Events Overnight: Patient [...] been in touch with his Merrill, Lele [phone] and he did not want me to [...] and management as well as Computerized Physician Baseball Scout. Dictation software, [employer], used which may contain error for similar sounding words even af ter review. Portions of this chart may have been copied from previous notes for continuity of care. Mundo Pack MD, FACP, FAAP 10/11/2019 il son, Chelsi HebertJUICE - 10/11/2019 6:45 AM PDT [facility] Service: Vascular Surgery Progress Note Hospital [...] history of alcohol abuse who presented to [facility] with com plaints of cellulitis of right leg as well as enlarging pseudoaneurysm of right PUSHER OPERATOR. He unde rwent aortobifemoral bypass in 1999. [...] scan which revealed enlargement of known right PUSHER OPERATOR pseudoaneurysm. He was transferred to [facility] for evaluation and Vascular was consulted [...] Full Chelsi Arteaga PA-C 10/11/2019 Rachel Trinidad, [facility] - 10/10/2019 11:59 AM PDTFormatting of this [...] PO medications. Thank You, Rachel Cifuentes, PharmD, [facility] 10/10/19 11:59 AM PDT Radames ArleneSiddharth Day - 10/10/2019 11:36 AM PDT [facility] Service: Vascular Surgery Progress Note Hospital [...] history of alcohol abuse who presented to [facility] with com plaints of cellulitis of right leg as well as enlarging pseudoaneurysm of right PUSHER OPERATOR. He unde rwent aortobifemoral bypass in 1999. [...] scan which revealed enlargement of known right PUSHER OPERATOR pseudoaneurysm. He was transferred to [facility] for evaluation and Vascular was consulted [...] might be different from the or iginal. [facility] Service: Quality Facilitator Progress Note Jairo Theodore 59 y.o. Hospital [...] He was farnsworth sferred on 10/03/2019 from [facility] for right foot swelling and increase in [...] right cheek area - no purulent drai nagjeanne, has been present for several years per [...] procedures. Tyler Elias MD 10/10/2019 Dictation software, [employer], was used which may contain error with similar sound words even after review. Portions of this chart may have been copied from previous notes for continuity of care. ared, Daniella Golden RN - 10/09/2019 10:20 AM PDTFamily/ child daycare worker updated by pt. Chelsi Orta PA-C - 10/09/2019 7:08 AM PDT [facility] Service: Vascular Surgery Progress Note Hospital [...] history of alcohol abuse who presented to [facility] with com plaints of cellulitis of right leg as well as enlarging pseudoaneurysm of right PUSHER OPERATOR. He unde rwent aortobifemoral bypass in 1999. [...] scan which revealed enlargement of known right PUSHER OPERATOR pseudoaneurysm. He was transferred to [facility] for evaluation and Vascular was consulted [...] Gr MD - 10/09/2019 1:28 AM PDT [facility] Service: Quality Facilitator Progress Note Jairo Theodore 59 y.o. Hospital [...] He was farnsworth sferred on 10/03/2019 from [facility] for right foot swelling and increase in [...] continue nicotine patch. Counseled on smoking jyoti laguerre GI/NUTRITION NPO for now Monitor for signs [...] procedures. Julian Gr MD 10/09/2019 Dictation software, [employer], was used which may contain error with [...] by vascular surgery. R eport given to RESEARCH ENVIRONMENTAL SCIENTIST. Pt safely transferred to room 76147. Incisions and dressings were teresa an and dry. Post tib and pedal pulses dopplerable. JADA SHINE RN Chyna Rashid MD - 10/08/2019 4:07 PM PDT [facility] Service: Hospitalist Progress Note Hospital Day: LOS: 5 days SUBJECTIVE Patient Summary: Mr. Theodore is a 59 yr old man active smoker 1ppday with alcohol abuse, hx of PAD, s/p right aorto bifemoral bypass in 1999 complicated by pseudoaneurysm, s/p revision, was transferred from [facility] ED for right foot swelling and increasing [...] endarterectomy, right [facility]. Patient had an EBL [...] Shook MD 10/08/2019 4:07 PM PDT Magdiel rOta MD - 8:53 AM PDTVascular surgery 10/08/2019 [...] Consent obtained. Magdiel Arteaga MD Vascular Surgery apisherri willson, Jada Mercado RN - 10/07/2019 7:45 PM PDTPt arrived at 1800. SBPs in 70-80s upon arrival. N eo increased to 50mcg. Pedal pulses remain absent. Post tib pulses dopplerable. Medicated fo r pain with PRN tylenol. Remains on RA. HR 90-110s. JADA SHINE RN Chyna Rashid MD - 10/07/2019 3:55 PM PDT [facility] Service: Hospitalist Progress Note Hospital Day: LOS: 4 days SUBJECTIVE Patient Summary: Mr. Theodore is a 59 yr old man active smoker 1ppday with alcohol abuse, hx of PAD, s/p right aorto bifemoral bypass in 1999 complicated by pseudoaneurysm, s/p revision, was transferred from [facility] ED for right foot swelling and increasing size of the right groin pseud oaneurysm and was transferred here for cellulitis of the right foot and impending pseudoaneu rsym rupture. Events Overnight: Patient was seen today at bedside, s/p pseudoaneursym repair. EBL was 1L. He received 2 uni ts pRBCs and now on neosynephrine. Scheduled Medications [Apr] ampicillin-sulbactam 3 g Intravenous Q6H [APR Hold] aspirin 81 mg Oral Daily [APR Hold] atorvaSTATin 40 mg Oral Nightly [Apr] ceFAZolin [...] magnesium oxide AND [Apr] magnesium sulfate AND [APR Hold ] magnesium sulfate, [Apr] melatonin, [APR Hold] morphine, [APR Hold] ondansetron, [...] (98.4 F) Oral 78 18 97 % 08/07/20 1609 177/89 36.8 C (98.3 F) Temporal [...] A POSITIVE Antibody Screen NEGATIVE BB BAND STATION MECHANIC 0630 BB BAND Testing performed at [facility];[address] [place] [address];[place] [address] UNIT # [id number] Product Code LEUKODEPLETED PC Unit Division 00 Unit Status ISSUED Transfusion Status OK TO TRANSFUSE CROSSMATCH RESULT COMPATIBLE UNIT # [id number] Product Code LEUKODEPLETED PC Unit Division 00 Unit Status ISSUED Transfusion Status OK TO TRANSFUSE CROSSMATCH RESULT COMPATIBLE UNIT # [id number] Product Code LEUKODEPLETED PC Unit Division 00 Unit Status ALLOCATED Transfusion Status OK TO TRANSFUSE CROSSMATCH RESULT COMPATIBLE UNIT # [id number] Product Code LEUKODEPLETED PC Unit Division 00 Unit Status ALLOCATED Transfusion Status OK TO TRANSFUSE CROSSMATCH RESULT COMPATIBLE Red Blood Cells (PRBC) - Crossmatch and Hold Result Value Ref Range Product Code RED CELL GROUP Units ordered 2 BLOOD BANK COMMENT ORDER RECEIVED IN BLOOD BANK. BLOOD BANK COMMENT Testing performed at [facility];[address] [place] [address];[place] [address] POC ISTAT, CG8, Arterial Result Value Ref [...] BANK. BLOOD BANK COMMENT Testing performed at [facility];[address] [facility];[place] [address] POC ISTAT, CG8, Arterial Result Value Ref [...] Milian PA-C - 10/07/2019 7:08 AM PDT [facility] Service: Vascular Surgery Progress Note Hospital Day: LOS: 4 days Post-Op Day: * No surgery date entered * SUBJECTIVE Patient Summary: The patient is a 59 y.o. 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 He unde rwent aortobifemoral bypass in 1999. [...] scan which revealed enlargement of known right PUSHER OPERATOR pseudoaneurysm. He was transferred to [facility] for evaluation and Vascular was consulted [...] A POSITIVE Antibody Screen NEGATIVE BB BAND STATION MECHANIC 0630 BB BAND Testing performed at [facility];[address] [place] [address] UNIT # [id number] Product Code LEUKODEPLETED PC Unit Division 00 Unit Status ALLOCATED Transfusion Status OK TO TRANSFUSE CROSSMATCH RESULT COMPATIBLE UNIT # [id number] Product Code LEUKODEPLETED PC Unit Division 00 Unit Status ALLOCATED Transfusion Status OK TO TRANSFUSE CROSSMATCH RESULT COMPATIBLE Red Blood Cells (PRBC) - Crossmatch and Hold Collection Time: 10/07/19 6:30 AM Result Value Ref Range Product Code RED CELL GROUP Units ordered 2 BLOOD BANK COMMENT ORDER RECEIVED IN BLOOD BANK. BLOOD BANK COMMENT Testing performed at [facility];[address] [place] [address] PROBLEM LIST Principal Problem: Pseudoaneurysm right aorto [...] Shook MD - 10/06/2019 10:34 AM PDT [facility] Service: Hospitalist Progress Note Hospital Day: LOS: 3 days SUBJECTIVE Patient Summary: Mr. Theodore is a 59 yr old man active smoker 1ppday with alcohol abuse, hx of PAD, s/p right aorto bifemoral bypass in 1999 complicated by pseudoaneurysm, s/p revision, was transferred from [facility] ED for right foot swelling and increasing [...] velocity. Final Report Signed by: Jacky Anderson Nicolas Santos Date/Time: 10/04/2019 12:06 PM PROBLEM LIST Principal [...] Crum PA-C - 10/06/2019 9:32 AM PDT [facility] Service: Vascular Surgery Progress Note Hospital Day: LOS: 3 days Post-Op Day: * No surgery date entered * SUBJECTIVE Patient Summary: The patient is a 59 y.o. 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 He unde rwent aortobifemoral bypass in 1999. [...] scan which revealed enlargement of known right PUSHER OPERATOR pseudoaneurysm. He was transferred to [facility] for evaluation and Vascular was consulted [...] Rashid MD - 10/05/2019 12:14 PM PDT [facility] Service: Hospitalist Progress Note Hospital Day: LOS: 2 days SUBJECTIVE Patient Summary: Mr. Theodore is a 59 yr old man active smoker 1ppday with alcohol abuse, hx of PAD, s/p right aorto bifemoral bypass in 1999 complicated by pseudoaneurysm, s/p revision, was transferred from [place] ED for right foot swelling and increasing [...] Crum PA-C - 10/05/2019 8:18 AM PDT [facility] Service: Vascular Surgery Progress Note Hospital Day: LOS: 2 days Post-Op Day: * No surgery date entered * SUBJECTIVE Patient Summary: The patient is a 59 y.o. 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 He unde rwent aortobifemoral bypass in 1999. [...] scan which revealed enlargement of known right PUSHER OPERATOR pseudoaneurysm. He was transferred to [facility] for evaluation and Vascular was consulted [...] and open repair for his enlarging right PUSHER OPERATOR pseudoaneurysm. He will need r etroperitoneal exposure [...] Rashid MD - 10/04/2019 9:15 AM PDT [facility] Service: Hospitalist Progress Note Hospital Day: LOS: 1 day SUBJECTIVE Patient Summary: Mr. Theodore is a 59 yr old man active smoker 1ppday with alcohol abuse, hx of PAD, s/p right aorto bifemoral bypass in 1999 complicated by pseudoaneurysm, s/p revision, was transferred from [facility] ED for right foot swelling and increasing [...] LYTY 0809 BB BAND Testing performed at [facility];[address] [place] [address];[place] [address] ECG 12 lead Result Value Ref Range [...] check if blood cultures were taken at [facility] Prn pain medication Pseudoaneurysm right femoral artery Seen by vascular surgery, plan for repair on 10/06/19 Alcohol abuse CIWA protocol in place counseled Nicotine abuse On nicotine patch Counseled DVT prophylaxis with lovenox Disposition: For discharge once cleared by vascular surgery Code Status: Full Code Chyna Shook MD 10/04/2019 9:15 AM PDT documented in this enco unter H&P Notes Latoya Oh, DO - 10/03/2019 10:22 PM PDTFormatting of this note might be different from t he original. [facility] Service: Hospitalist Admission History & Physical [...] who p resents as a transfer from [facility] ED for pseudoaneurysm of the right groin and celluli tis of the RLE. Per patient right pseudoaneurysm of the right groin has been getting bigger for at least a year. Right foot swelling for 5 days. Patient reports similar episodes at [facility] twice a year but this time [...] LYTY 0809 BB BAND Testing performed at [facility];[address];[place] [address] ECG 12 lead Result Value Ref Range INTERPRETATION TEXT Not Confirmed IMAGING No orders to display EKG at 2310: NSR, VR 72, Qtc 455. Data from [facility] -Ultrasound impression: 6.3 x 5.1 x 5.8 [...] delirium tremens, seizures from withdrawals or withdrawals -METHODIST JENNIE EDMUNDSON protocol initiated Tobacco abuse: -Quit smoking today smoke a pack of cigarettes per day -Nicotine patch Hypokalemia GI and DVT prophylaxis Code Status: Full Code Dictation software, Cognitum, used which may contain errors for similar [...] Order(s): IP CONSULT TO WOUND OSTOMY NURSETC giulianoi rene from vascular surgery, they would like [...] this note might be different from the [facility] Service: Quality Facilitator Initial Consult Note Jairo Theodore 59 y.o. [...] was transf erred 5 days ago from [facility] for right foot swelling and increase in [...] ENDARTERECTOMY FEMORAL; Surgeon: Magdiel Arteaga MD; Location: [facility] MAIN OR FEMORAL-FEMORAL BYPASS GRAFT N/A 10/07/2019 Procedure: BYPASS GRAFT FEMORAL-FEMORAL; Surgeon: Magdiel Arteaga MD; Location: [facility] MAIN OR OTHER SURGICAL HISTORY Right 10/07/2019 Procedure: REPAIR PSEUDOANEURYSM- FEMORAL; Surgeon: Magdiel Arteaga MD; Location: [facility] GABI N OR ALLERGIES Allergies Allergen [...] file Gets together: Not on file Attends alevism service: Not on file Active member of [...] incisions in both groin areas with 2 cartina ins each side SKIN: warm, dry, no [...] PDTAssociated Order(s): PROVIDER TO PROVIDER CONSUL T [facility] Service: Vascular Surgery Initial Consult Note Date of Admission: 10/03/2019 Date of Consultation: 10/04/2019 Reason for Consultation: Pseudoaneurysm of right PUSHER OPERATOR Primary Care Physician: No Physician on file History Obtained From: Patient, chart review Code Status: Full Code CHIEF COMPLAINT: Right foot swelling and pain; Enlarging right femoral pseudoaneurysm HISTORY OF PRESENT ILLNESS The patient is a 59 y.o. male with significant past medical history of tobacco abuse, HTN, CAD, history of alcohol abuse who presented to [facility] with complaints of cellulitis o f right leg as well as enlarging pseudoaneurysm of right PUSHER OPERATOR. He underwent aortobifemoral by pass in 1999. [...] which reveal ed enlargement of known right PUSHER OPERATOR pseudoaneurysm. He was transferred to [facility] for evaluation and Vascular was consulted [...] - The patient was transferr ed to [facility] for evaluation of his enlarging pseudoaneurysm, which has been the same size for the last year he reports. [facility] year but was lost to any follow up. He has a complex history regarding his aortic repair and his left si de is chronically occluded per review of [facility] notes and angiographic report from 2007. His C TA with runoff yesterday showed enlarging right femoral pseudoaneurysm. Left PUSHER OPERATOR shows no in flow but reconstitutes. The patient will require revascularization and open repair for his e nlarging right PUSHER OPERATOR pseudoaneurysm. He will need retroperitoneal exposure with [...] negative. Will also get baseline echo. TRACEY Duran-C Vascular Surgery Associated attestation - Magdiel Arteaga [...] Miscellaneous Notes Plan of Care - Elijah aWlker MSW - 10/16/2019 1:16 PM PDTCare Management Final Discharge Plan Readmission Risk: HIGH Discharge Plan Planned Disposition: Home Planned Destination: Home PCP: Lauren Bob MD Patient/Family Notified: yes Transportation will be provided by: Pt friend Transportation Date/Time: Ride Contact: Name: Pt friend Community Support Services Current Outpt/Agency/Support Groups: yes Community Agency Name: [facility] Home Health Disciplines: RN and PT - RN for wound care Equipment Durable Medical Equipment Provider: Home Equipment at Discharge: none Equipment Used at Home: cane, straight, single point Pharmacy Pharmacy/Medication needs: Pt is going to use [facility] and will use his Medicare Part D benefits. ENTRY MANAGER and Pt called [facility], got him reestablished with the [facility], has not been seen since 2018 . Pt is now assigned to Team Linda Bob. ENTRY MANAGER p/c with Rudolph at [facility] Team Linda Bob, states they will be calling Pt for follow up appt and will send referral for outpatient wound care. ENTRY MANAGER p/c with Carol at [facility], states she has received [facility] orders in the p ast and will follow up with Dr. Bob's office. ENTRY MANAGER provided referral and faxed Home health referral. [...] Bed Mobility Supine to Sit, Level of Dewey: modified independent Sit to Supine, Level of Dewey: modified independent Safety Issues: decreased use of legs for bridging/pushing Transfers Sit-Stand, Level of Dewey: supervised Stand-Sit, Level of Dewey: supervised Qts-Vkgnm-Wvd, Assistive Device: none Gait Level of Dewey: supervised Assistive Device: none Distance (feet): 40 Goals Reflects last filed data and may be from multiple contributors. All Bed Mobility Goal Most Recent Value LTG Status new at 10/09/2019 1108 LTG Dewey Level modified independent at 10/09/2019 1108 LTG Assistive Device none at 10/09/2019 1108 All Transfers Goal Most Recent Value LTG Status new at 10/09/2019 1108 LTG Dewey Level modified independent at 10/09/2019 1108 LTG Assistive Device 2 wheeled walker (FWW) at 10/09/2019 1108 Gait Goal Most Recent Value LTG Status new at 10/09/2019 1108 LTG Dewey Level modified independent at 10/09/2019 1108 LTG Assistive Device 2 wheeled walker (FWW) at 10/09/2019 1108 LTG Distance (feet) 100 at 10/09/2019 1108 Stair Goal Most Recent Value LTG Status new at 10/09/2019 1108 LTG Dewey Level modified independent at 10/09/2019 1108 LTG [...] bed rails Supine to Sit, Level of Dewey: modified independent Safety Issues: decreased use of legs for bridging/pushing Impairments: ROM decreased, strength decreased Transfers Sit-Stand, Level of Dewey: stand by assist, verbal cues required Stand-Sit, Level of Dewey: stand by assist, verbal cues required Kkx-Yffld-Ejf, Assistive Device: 2 wheeled walker (FWW), none Toilet, Level of Dewey: stand by assist, verbal cues required Toilet, Assistive Device: 2 wheeled walker (FWW), grab bars Gait Gait Comments: antalgic gait with flexed trunk posture and intermittent crouch position Level of Dewey: stand by assist, verbal cues required(verbal cues [...] LTG Status new at 10/09/2019 1108 LTG Dewey Level modified independent at 10/09/2019 1108 LTG Assistive Device none at 10/09/2019 1108 All Transfers Goal Most Recent Value LTG Status new at 10/09/2019 1108 LTG Dewey Level modified independent at 10/09/2019 1108 LTG Assistive Device 2 wheeled walker (FWW) at 10/09/2019 1108 Gait Goal Most Recent Value LTG Status new at 10/09/2019 1108 LTG Dewey Level modified independent at 10/09/2019 1108 LTG Assistive Device 2 wheeled walker (FWW) at 10/09/2019 1108 LTG Distance (feet) 100 at 10/09/2019 1108 Stair Goal Most Recent Value LTG Status new at 10/09/2019 1108 LTG Dewey Level modified independent at 10/09/2019 1108 LTG [...] to report that he will limon ve 24/7 support) Post discharge physical therapy recommendation: home [...] Bed Mobility Supine to Sit, Level of Dewey: minimal assist (75% patient effort) Transfers Sit-Stand, Level of Dewey: minimal assist (75% patient effort) Gait Level of Dewey: minimal assist (75% patient effort) Assistive Device: [...] LTG Status new at 10/09/2019 1108 LTG Dewey Level modified independent at 10/09/2019 1108 LTG Assistive Device none at 10/09/2019 1108 All Transfers Goal Most Recent Value LTG Status new at 10/09/2019 1108 LTG Dewey Level modified independent at 10/09/2019 1108 LTG Assistive Device 2 wheeled walker (FWW) at 10/09/2019 1108 Gait Goal Most Recent Value LTG Status new at 10/09/2019 1108 LTG Dewey Level modified independent at 10/09/2019 1108 LTG Assistive Device 2 wheeled walker (FWW) at 10/09/2019 1108 LTG Distance (feet) 100 at 10/09/2019 1108 Stair Goal Most Recent Value LTG Status new at 10/09/2019 1108 LTG Dewey Level modified independent at 10/09/2019 1108 LTG [...] participation. Pt with an i ncontinent BM. INDUSTRIAL ELECTRICIAN JOURNEYMAN and PT assisting with mobility and pericare. [...] Transfers Additional Documentation: toilet Sit-Stand, Level of Dewey: minimal assist (75% patient effort) Stand-Sit, Level of Dewey: minimal assist (75% patient effort) Ozj-Btscv-Bgl, Assistive Device: 2 wheeled walker (FWW) Toilet, Level of Dewey: minimal assist (75% patient effort) Toilet, Assistive Device: 2 wheeled walker (FWW) Safety Issues: loses balance backward, weight-shifting ability decreased, step length decre ased, sequencing ability decreased, balance decreased during turns Impairments: ROM decreased, strength decreased, impaired balance Gait Gait Comments: reduced step length BLE, excessive trunk flexion, reduced weight bearing RLE , avoidance COG over HAN Level of Dewey: minimal assist (75% patient effort) Assistive Device: 2 wheeled walker (FWW) Distance (feet): 15x2 Goals Reflects last filed data and may be from multiple contributors. All Bed Mobility Goal Most Recent Value LTG Status new at 10/09/2019 1108 LTG Dewey Level modified independent at 10/09/2019 1108 LTG Assistive Device none at 10/09/2019 1108 All Transfers Goal Most Recent Value LTG Status new at 10/09/2019 1108 LTG Dewey Level modified independent at 10/09/2019 1108 LTG Assistive Device 2 wheeled walker (FWW) at 10/09/2019 1108 Gait Goal Most Recent Value LTG Status new at 10/09/2019 1108 LTG Dewey Level modified independent at 10/09/2019 1108 LTG Assistive Device 2 wheeled walker (FWW) at 10/09/2019 1108 LTG Distance (feet) 100 at 10/09/2019 1108 Stair Goal Most Recent Value LTG Status new at 10/09/2019 1108 LTG Dewey Level modified independent at 10/09/2019 1108 LTG Assistive Device 1 rail at 10/09/2019 1108 LTG Number of Stairs 3 at 10/09/2019 1108 PT Time Calculation Individual Start Time: 1052 Individual Stop Time: 1122 Individual Total Time: 30 PT Total Treatment Time: 30 lan of Georgie Maya cia RN - 10/11/2019 6:38 AM PDT Problem: [...] Absence of Fall and Fall-Related Injury 10/10/2019 184 by Daniella Coleman, H[place]ISON Outcome: Ongoing, progressing [...] Recommendations: 2 wheeled walker (FWW), shower chair, hospitalist, sock aide, long handled sponge, long handled [...] cheese snadwhiches since being a t the [facility] despite his chart saying he has [...] bed rails Supine to Sit, Level of Dewey: minimal assist (75% patient effort) Sit to Supine, Level of Dewey: moderate assist (50% patient effort) Safety Issues: decreased use of legs for bridging/pushing, decreased use of arms for pushin g/pulling Impairments: ROM decreased, strength decreased, postural control impaired, pain Transfers Additional Documentation: sit to/from stand Sit-Stand, Level of Dewey: minimal assist (75% patient effort) Stand-Sit, Level of Dewey: maximal assist (25% patient effort) Kwz-Danhm-Hfw, Assistive Device: 2 wheeled walker (FWW), gait belt Safety Issues: loses balance backward, weight-shifting ability decreased, step length decre ased, sequencing ability decreased, balance decreased during turns Impairments: ROM decreased, strength decreased, impaired balance ROM Comments: WFL Strength Comments: WFL. B aerospace engineer officer armament strength 4/5. B UE MMT 4/5 except for biceps 3+/5 Balance Sitting Balance: Static: good balance Sitting Balance: Dynamic: good balance Standing Balance: Static: poor balance Standing Balance: Dynamic: poor balance Goals Reflects last filed data and may be from multiple contributors. LB Dressing Goal Most Recent Value LTG Status new at 10/10/2019 1545 LTG Dewey Level minimum assist (75% patient effort), set up required at 10/10/2019 1545 LTG Adaptive Equipment hospitalist, sock-aid at 10/10/2019 1545 Toilet Transfer Goal Most Recent Value LTG Status new at 10/10/2019 1545 LTG Dewey Level minimum assist (75% patient effort) at [...] Briggs 10/10/2019 12:08 PM PDT lan of Care - Mundo Pack MD - 10/10/2019 12:04 PM PDTPatient seen and examined briefly as day progress note has been made, at bedside in ICU on turnover by flanging operator. Patient stat es he feels better, no headache, no dizziness no faintness, blood pressures and vital signs have been stable no fever. We will continue present course of treatments, and will continue to follow closely. lan of Care - Makenzie Hunter T, PT - 10/10/2019 11:13 AM PDTFormatting of [...] PT intervention to facilitate normalizing gait guillermina rn, safety during stair negotiation and functional strength. Cognitive Assessment Mood/Behavior: calm, cooperative Bed Mobility Assistive Device: HOB elevated, bed rails Supine to Sit, Level of Dewey: minimal assist (75% patient effort) Transfers Bed-Chair, Level of Dewey: minimal assist (75% patient effort) Jno-Nvwim-Dph, Assistive Device: 2 wheeled walker (FWW), gait belt Sit-Stand, Level of Dewey: minimal assist (75% patient effort), stand by assist Stand-Sit, Level of Dewey: minimal assist (75% patient effort), stand by assist Gait Gait Comments: reduced step length BLE, excessive trunk flexion, reduced weight bearing RLE , avoidance COG over HAN Level of Dewey: minimal assist (75% patient effort), verbal cues [...] LTG Status new at 10/09/2019 1108 LTG Dewey Level modified independent at 10/09/2019 1108 LTG Assistive Device none at 10/09/2019 1108 All Transfers Goal Most Recent Value LTG Status new at 10/09/2019 1108 LTG Dewey Level modified independent at 10/09/2019 1108 LTG Assistive Device 2 wheeled walker (FWW) at 10/09/2019 1108 Gait Goal Most Recent Value LTG Status new at 10/09/2019 1108 LTG Dewey Level modified independent at 10/09/2019 1108 LTG Assistive Device 2 wheeled walker (FWW) at 10/09/2019 1108 LTG Distance (feet) 100 at 10/09/2019 1108 Stair Goal Most Recent Value LTG Status new at 10/09/2019 1108 LTG Dewey Level modified independent at 10/09/2019 1108 LTG [...] Family Contact Information: Name: Lele Conley (Roommate) [id number] signed by PORTILLO Varner at 10/10/2019 10:13 [...] doppler. Remains off Wade. lan of Makenzie Scanlon, PT - 10/09/2019 11:08 AM PDT Physical [...] with roommate's support and ongoing benefit from services to reduce restriction of AD and [...] HOB elevated Supine to Sit, Level of Dewey: maximal assist (25% patient effort) Safety Issues: decreased use of legs for bridging/pushing, impaired trunk control for bed m obility Impairments: pain, strength decreased, ROM decreased Transfers Additional Documentation: sit to/from stand, bed to/from chair Bed-Chair, Level of Dewey: moderate assist (50% patient effort) Qbi-Rxhtk-Zst, Assistive Device: 2 wheeled walker (FWW) Sit-Stand, Level of Dewey: minimal assist (75% patient effort) Stand-Sit, Level of Dewey: minimal assist (75% patient effort) Sxg-Meecf-Zvs, Assistive Device: 2 wheeled walker (FWW) Safety [...] LTG Status new at 10/09/2019 1108 LTG Dewey Level modified independent at 10/09/2019 1108 LTG Assistive Device none at 10/09/2019 1108 All Transfers Goal Most Recent Value LTG Status new at 10/09/2019 1108 LTG Dewey Level modified independent at 10/09/2019 1108 LTG Assistive Device 2 wheeled walker (FWW) at 10/09/2019 1108 Gait Goal Most Recent Value LTG Status new at 10/09/2019 1108 LTG Dewey Level modified independent at 10/09/2019 1108 LTG Assistive Device 2 wheeled walker (FWW) at 10/09/2019 1108 LTG Distance (feet) 100 at 10/09/2019 1108 Stair Goal Most Recent Value LTG Status new at 10/09/2019 1108 LTG Dewey Level modified independent at 10/09/2019 1108 LTG [...] 1.7 Estimated Energy Needs Energy Calorie Requirements: 5698-1001(28-32 kcal/kg per 54.3 kg admit wt ) [...] patient agreeable Nutritional Risk Required Follow Up: (815 M) Tyesha Dove RD 10/09/2019 10:37 AM PDT Problem: Oral Intake Inadequate Goal: Improved Oral Intake Description: Pt will consume >75% of meals and snacks Outcome: Ongoing, progressing lan of Care - Daniella Ambrocio RN - 10/09/2019 10:24 AM PDT Problem: Adult Inpatient Plan of Care Goal: Rounds/Family Conference Outcome: Ongoing, progressing Flowsheets (Taken 10/09/2019 1024) Participants: disease case manager dietitian/nutrition services advanced practice nurse [...] started on clear liquid diet. lan of [facility] - Viv Santos MSW - 10/09/2019 9:44 AM PDTAttended morning rounds. Pt transferred to ICU post -op for repair of thrombosed fem-fem artery bypass. Progressing. Await PT to eval and alissa baez recommendations. Has no PCP per CM note and FS. Insurance is [email or web address]. lan of [facility] - Urszula Garcia RN - 10/09/2019 8:02 AM [...] having p ainWalter Seaman RN. reatme nt Amanda Shah RN - [...] 10/08/2019 2:31 PM PDT BRIEF OPERATIVE NOTE [facility] Pt. Name/Age/: Jairo Theodore 59 y.o. 1960 Med. Record Number: [id number] Date of admission: 10/03/2019 Date of Operation/Procedure: [...] disease (HCC) [I73.9] Surgeon: Magdiel Arteaga MD Search Engine Optimization Analyst: Maicol Abel PA-C Anesthesia Provider(s): Anesthesiologist: Orlando Ambriz DO APPLICATIONS DEVELOPMENT ANALYST: Som Garcia CRNA Anesthesia Type: Anesthesia type not filed in the log. Procedure(s): THROMBECTOMY / EMBOLECTOMY of fem fem bypass BILATERAL BYPASS GRAFT FEMORAL-POPLITEAL WITH 6 MM PTFE ANGIOGRAM - EXTREMITY BILATERAL (64829) Operative Findings: Thrombosed femoral to femoral artery [...] Implant Name Type Inv. Item Serial No. Mask Design Engineer Lot No. LRB No. Used Action GRAFT VAS PROPATEN 6-80MM - [id number] Graft GRAFT VAS PROPATEN 6-80MM [id number] NEPTALI [facility] NA N/A 1 Implanted GRAFT VAS PROPATEN 6-80MM - [id number] Graft GRAFT VAS PROPATEN 6-80MM [id number] Norma [facility] NA N/A 1 Implanted Counts: Instrument, sponge, and needle counts were correct prior to closure and at the con clusion of the case. Complications: None Disposition: The patient was taken to PACU Immediate Post-Operative Condition: Stable Electronically signed by: Magdiel Arteaga MD, 10/08/2019, 2:31 PM PDT p Note - Magdiel Arteaga MD - 10/08/2019 10 :06 AM PDT [facility] OPERATIVE REPORT PATIENT NAME: Jairo Theodore [...] imaging quality was not ideal. Using a PWRFpe catheter and angiogram was done of the [...] the femorofemoral bypass. Using 2 CV 6 [place]-Jamie sutures the 6 mm bypass was anastomos [...] astomosis was created with 2 CV 6 [place]-Jamie sutures. Prior to completing the anastomosis the [...] an antibiotic solution. Hemostasis was achieved. 7 Malaysian drains were placed in both groins and [...] Magdiel Arteaga MD Vascular Surgery Dictation software, [employer], used which may contain error for similar sounding words even af ter review. Personal communication requested for any clarification. Electronically signed by: Magdiel Arteaga MD, 10/09/2019 10:06 AM [address] [facility] lan of Care [...] Arteaga MD - 10/07/2019 7:00 PM PDT [facility] OPERATIVE REPORT PATIENT NAME: Jairo Theodore [...] vanced a wire and placed a 7 Malaysian sheath. We again attempted to select out [...] femoral endarterectomy was performed w ith a Ward elevator. There was good backbleeding from the [...] common femoral endarterectomy was performed using the Ward elevator. After performing the endarterect carlyle there [...] copiously irrigated. There was good hemostasis. 7 Malaysian flat AUGUSTUS drains were placed in both [...] Magdiel Arteaga MD Vascular Surgery Dictation software, [employer], used which may contain error for similar sounding words even af ter review. Personal communication requested for any clarification. Electronically signed by: Magdiel Arteaga MD, 10/09/2019 9:28 AM PDT [facility] rief Op Note - Magdiel Arteaga MD - 10/07/2019 4:30 PM PDTFormatting of this note might be different from the or iginal. BRIEF OPERATIVE NOTE [facility] Pt. Name/Age/: Jairo Theodore 59 y.o. 1960 Med. Record Number: [id number] Date of admission: 10/03/2019 Date of Operation/Procedure: 10/07/2019 Preoperative Diagnosis: 1. Large right groin pseudoaneurysm 2. Peripheral arterial disease Postoperative Diagnosis: * Pseudoaneurysm (HCC) [I72.9] Surgeon: Magdiel Arteaga MD Search Engine Optimization Analyst: Maicol Abel PA-C Anesthesia Provider(s): Anesthesiologist: Rudolph Lowery MD APPLICATIONS DEVELOPMENT ANALYST: Neville Rush CRNA Anesthesia Type: General Procedure(s): [...] Implant Name Type Inv. Item Serial No. Mask Design Engineer Lot No. LRB No. Used Action GRAFT GORE PROPATEN [id number] - [id number] Graft GRAFT GORE PROPATEN [id number] WL GORE - WLGO NA Right 1 Implanted GRAFT HEMGRD KNIT [id number] - [id number] Graft GRAFT HEMGRD KNIT [id number] [employer] SALES - MAQU [id number] Right 1 Implanted Counts: Instrument, sponge, and needle counts were correct prior to closure and at the con clusion of the case. Complications: None Disposition: The patient was taken to PACU Immediate Post-Operative Condition: Stable Electronically signed by: Magdiel Arteaga MD, 10/07/2019, 4:31 PM PDT lan of [place] - Asia Snow RN - 10/07/19 6:50 AM PDTUneventful noc, up to the BR several times, VSS with one SBP in 170s recheck [id number]. Report given to preop nurse and [id number] [...] and ready for transport . lan of Care - Diamond Yang RN - 10/06/2019 12:29 [...] light with i n reach lan of Care - Candace Chavira RN - 10/06/2019 6:15 AM PDTProblem: Adult Inpatient Plan of Care Goal: Plan of Care Review Outcome: Ongoing, progressing Problem: Fall Injury Risk Goal: Absence of Fall and Fall-Related Injury Outcome: Ongoing, progressing End of shift note: Patient has been NPO since midnight. No acute changes to initial assessment overnight. Chart review and 24 hour chart check complete. lan of Care - Zuleyka Valdovinos RN - 10/05/2019 5:28 [...] to Fall Injury Risk Flowsheets (Taken 10/05/2019 0655) Self-Care Promotion: independence encouraged Note: Pt uses [...] liquids well. NPO at midnight. lan of [facility] - Oriana Mar RN - 10/04/2019 8:07 [...] chart check and audit complete. lan of [facility] - Zuleyka Ramos RN - 10/04/2019 6:55 [...] the bathroom clear of clutter. lan of [facility] - Carol Olivares MSW - 10/04/2019 12:52 [...] Current Outpt/Agency/Support Groups: none - pt is [place] Anticipated Changes Related to Illness: none Concerns [...] Notes: Pt resides with his friend in [place]. Pt is independent - no caregiver, home [...] of RLE and enlarging pseudoaneurysm of right PUSHER OPERATOR. Pt scheduled for pseudoaneurysm repair on 10/04. [...] BUN 7* CREA 0.60* Estimated Energy Needs 9478-9036 kcal/day (28-32 kcal/kg per 54.3 kg admit [...] RDN 10/04/2019 11:16 AM PDT lan of Oriana Gutierrez RN - 10/04/2019 1:26 AM PDT Problem: [...] | | | | | [place], [place] | | | | | | [id number] | | | | | | | [...] Expected: | | | | e | [facility] right aorto | 10/23/2019, Expires: | | | | | femoral bypass | 10/15/2020 | + +---------+--------+ + + | CBC w/ Auto | Lab | Routin | Pseudoaneurysm | Expected: | | Differential | | e | ([facility] right aorto | 10/23/2019, Expires: | | | | | femoral bypass | 10/15/2020 | + +---------+--------+ + + | Phosphorus | Lab | Routin | Pseudoaneurysm | 1 Occurrences | | | | e | ([facility]) right aorto | starting 10/16/2019 | | | | | femoral bypass | until 10/15/2020 | + +---------+--------+ + + | Magnesium | Lab | Routin | Pseudoaneurysm | Expected: | | | | e | ([facility]) right aorto | 10/23/2019, Expires: | | | | | femoral bypass | 10/15/2020 | + +---------+--------+ + + | Calcium | Lab | Routin | Pseudoaneurysm | Expected: | | | | e | ([facility]) right aorto | 10/23/2019, [...] | Health | Referral | e | ([facility]) right aorto | | | | | | femoral bypass | | | | | | Cellulitis of right | | | | | | foot 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 (HCC) | | | | | | Post-operative [...] EXTREMITY BILATERAL | | 9:22 AM | ([facility]) Peripheral | | | (12971) | | PDT | arterial disease | | | | | | ([facility]) | | + +--------+ + + + | BYPASS GRAFT | | 10/08/2019 | Pseudoaneurysm | | | FEMORAL-POPLITEAL | | 9:22 AM | ([facility]) Peripheral | | | | | PDT | arterial disease | | | | | | ([facility]) | | + +--------+ + [...] | + +--------+ + + + | SCOTT CASTILLO8, | Routin | 10/07/2019 | | Results [...] + +--------+ + + + | POC EDWARD BRADLEY, | Routin | 10/07/2019 | | Results [...] +---+--------+ | | Case | | | Janet | | | | | | Chandler | | | | | | expect | | | s this | | | case | | | to be | | | long | | | per | | | Maya | | | in | | | office | | | | | | -08 | | | 17:46 | | | [...] LABORATORY | | | | performed at [facility], [address] | | | [address], | | | | | | [place] [address] | | | | + + + + + + + + | Specimen | + + | Blood | + + + + + + + | Performing | Address | City/State/Zipcode | Phone Number | | Organization | | | | + + + + + | [facility] | [address] | [place] [address] | [phone] | + + + + + Magnesium (10/16/2019 5:11 AM PDT) + + + + + + | Component | Value | Ref Range | Performed | Pathologist | | | | | At | Signature | + + + + + + | Magnesium | 1.7Comment: Testing | 1.7 - 2.4 mg/dL | [facility] | | | | performed at [facility];[address] | | LABORATORY | | | | [address];[place] | | | | | | [address] | | | | + + + + + + + + | Specimen | + + | Blood | + + + + + + + | Performing | Address | City/State/Zipcode | Phone Number | | Organization | | | | + + + + + | [facility] | [address] [facility] | [place] [address] | [phone] | + + + + + Potassium (10/16/2019 5:11 AM PDT) + + + + + + | Component | Value | Ref Range | Performed | Pathologist | | | | | At | Signature | + + + + + + | K | 3.0 (L)Comment: Testing | 3.5 - 4.9 | [facility] | | | | performed at [facility];[address] | mmol/L | LABORATORY | | | | [address];[place], [place] | | | | | | [address] | | | | + + + + + + + + | Specimen | + + | Blood | + + + + + + + | Performing | Address | City/State/Zipcode | Phone Number | | Organization | | | | + + + + + | [facility] | [address] | [place] [address] | [phone] | + + + + + CBC [...] LABORATORY | | | | performed at [facility], [address] | | | [address] | [address], | | | | | | [place] [address] | | | | + + + + + + + + | Specimen | + + | Blood | + + + + + + + | Performing | Address | City/State/Zipcode | Phone Number | | Organization | | | | + + + + + | [facility] | [address] | [place] [address] | [phone] | + + + + + Magnesium (10/15/2019 5:13 AM PDT) + + + + + + | Component | Value | Ref Range | Performed | Pathologist | | | | | At | Signature | + + + + + + | Magnesium | 1.9Comment: Testing | 1.7 - 2.4 mg/dL | [facility] | | | | performed at [facility];[address] | | LABORATORY | | | | [address];[place], [place] | | | | | | [address] | | | | + + + + + + + + | Specimen | + + | Blood | + + + + + + + | Performing | Address | City/State/Zipcode | Phone Number | | Organization | | | | + + + + + | [facility] | [address] | [place] [address] | [phone] | + + + + + Basic [...] | | | | | performed at [facility], [address] | | | | | | [address] [facility], | | | | | | [place] [address] | | | | + + + + + + + + | Specimen | + + | Blood | + + + + + + + | Performing | Address | City/State/Zipcode | Phone Number | | Organization | | | | + + + + + | [facility] | [address] | [place] [address] | [phone] | + + + + + Potassium (10/14/2019 3:28 PM PDT) + + + + + + | Component | Value | Ref Range | Performed | Pathologist | | | | | At | Signature | + + + + + + | K | 3.3 (L)Comment: Testing | 3.5 - 4.9 | [facility] | | | | performed at [facility];[address] | mmol/L | LABORATORY | | | | [address];[place], [place] | | | | | | [address] | | | | + + + + + + + + | Specimen | + + | Blood | + + + + + + + | Performing | Address | City/State/Zipcode | Phone Number | | Organization | | | | + + + + + | [facility] | [address] | [place] [address] | [phone] | + + + + + Magnesium (10/14/2019 3:28 PM PDT) + + + + + + | Component | Value | Ref Range | Performed | Pathologist | | | | | At | Signature | + + + + + + | Magnesium | 2.1Comment: Testing | 1.7 - 2.4 mg/dL | [facility] | | | | performed at [facility];[address] | | LABORATORY | | | | [address];[place] | | | | | | [address] | | | | + + + + + + + + | Specimen | + + | Blood | + + + + + + + | Performing | Address | City/State/Zipcode | Phone Number | | Organization | | | | + + + + + | [facility] | [address] | [place] [address] | [phone] | + + + + + Phosphorus (10/14/2019 3:28 PM PDT) + + + + + + | Component | Value | Ref Range | Performed | Pathologist | | | | | At | Signature | + + + + + + | Phosphorus | 1.3 (L)Comment: Testing | 2.3 - 4.8 mg/dL | [facility] | | | | performed at [facility];[address] | | LABORATORY | | | | [address];[place], [place] | | | | | | [address] | | | | + + + + + + + + | Specimen | + + | Blood | + + + + + + + | Performing | Address | City/State/Zipcode | Phone Number | | Organization | | | | + + + + + | [facility] | [address] | [place] [address] | [phone] | + + + + + CBC [...] LABORATORY | | | | performed at [facility], [address] | | | | | [address], | | | | | | [place] [address] | | | | + + + + + + + + | Specimen | + + | Blood | + + + + + + + | Performing | Address | City/State/Zipcode | Phone Number | | Organization | | | | + + + + + | [facility] | [address] | [place] [address] | [phone] | + + + + + Magnesium (10/14/2019 5:49 AM PDT) + + + + + + | Component | Value | Ref Range | Performed | Pathologist | | | | | At | Signature | + + + + + + | Magnesium | 1.6 (L)Comment: Testing | 1.7 - 2.4 mg/dL | [facility] | | | | performed at [facility];[address] | | LABORATORY | | | | [address];[place] | | | | | | [address] | | | | + + + + + + + + | Specimen | + + | Blood | + + + + + + + | Performing | Address | City/State/Zipcode | Phone Number | | Organization | | | | + + + + + | [facility] | [address] | [place] [address] | [phone] | + + + + + Basic [...] | | | | | performed at [facility], [address] | | | | | | [facility], | | | | | | [place] [address] | | | | + + + + + + + + | Specimen | + + | Blood | + + + + + + + | Performing | Address | City/State/Zipcode | Phone Number | | Organization | | | | + + + + + | [facility] | [address] | [place] [address] | [phone] | + + + + + Potassium (10/13/2019 11:07 AM PDT) + + + + + + | Component | Value | Ref Range | Performed | Pathologist | | | | | At | Signature | + + + + + + | K | 3.5Comment: Testing | 3.5 - 4.9 | [facility] | | | | performed at [facility];888 | mmol/L | LABORATORY | | | | [address];[place] | | | | | | [address] | | | | + + + + + + + + | Specimen | + + | Blood | + + + + + + + | Performing | Address | City/State/Zipcode | Phone Number | | Organization | | | | + + + + + | [facility] | [address] | [place] [address] | [phone] | + + + + + Potassium (10/13/2019 4:37 AM PDT) + + + + + + | Component | Value | Ref Range | Performed | Pathologist | | | | | At | Signature | + + + + + + | K | 3.5Comment: Testing | 3.5 - 4.9 | [facility] | | | | performed at [facility];[address] | mmol/L | LABORATORY | | | | [address];[place] | | | | | | [address] | | | | + + + + + + + + | Specimen | + + | Blood | + + + + + + + | Performing | Address | City/State/Zipcode | Phone Number | | Organization | | | | + + + + + | [facility] | [address] | [place] [address] | [phone] | + + + + + Magnesium (10/13/2019 4:37 AM PDT) + + + + + + | Component | Value | Ref Range | Performed | Pathologist | | | | | At | Signature | + + + + + + | Magnesium | 1.7Comment: Testing | 1.7 - 2.4 mg/dL | [facility] | | | | performed at [facility];[address] | | LABORATORY | | | | [address];[place] | | | | | | [address] | | | | + + + + + + + + | Specimen | + + | Blood | + + + + + + + | Performing | Address | City/State/Zipcode | Phone Number | | Organization | | | | + + + + + | [facility] | [address] | [place] [address] | [phone] | + + + + + Basic [...] | | | | | performed at [facility];[address] | | | | | | [facility];[place], [place] | | | | | | [address] | | | | + + + + + + + + | Specimen | + + | Blood | + + + + + + + | Performing | Address | City/State/Zipcode | Phone Number | | Organization | | | | + + + + + | [facility] | [address] | [place] [address] | [phone] | + + + + + Hemoglobin [...] [facility] | | | | performed at [facility];[address] | | LABORATORY | | | | [address];[place] | | | | | | [address] | | | | + + + + + + + + | Specimen | + + | Blood | + + + + + + + | Performing | Address | City/State/Zipcode | Phone Number | | Organization | | | | + + + + + | [facility] | [address] | [place] [address] | [phone] | + + + + + Potassium (10/12/2019 4:28 PM PDT) + + + + + + | Component | Value | Ref Range | Performed | Pathologist | | | | | At | Signature | + + + + + + | K | 3.3 (L)Comment: Testing | 3.5 - 4.9 | [facility] | | | | performed at [facility];[address] | mmol/L | LABORATORY | | | | [address];[place] | | | | | | [address] | | | | + + + + + + + + | Specimen | + + | Blood | + + + + + + + | Performing | Address | City/State/Zipcode | Phone Number | | Organization | | | | + + + + + | [facility] | [address] | [place] [address] | [phone] | + + + + + Clostridium [...] at | | | | | | [facility];[address] [place] [address] | | | | | | [facility];[place] [address] | | | | + + + + + + + + | Specimen | + + | Stool - Stool | | specimen (specimen) | + + + + + + + | Performing | Address | City/State/Zipcode | Phone Number | | Organization | | | | + + + + + | [facility] | [address] | [place] [address] | [phone] | + + + + + Potassium (10/12/2019 11:02 AM PDT) + + + + + + | Component | Value | Ref Range | Performed | Pathologist | | | | | At | Signature | + + + + + + | K | 3.3 (L)Comment: Testing | 3.5 - 4.9 | [facility] | | | | performed at [facility];[address] | mmol/L | LABORATORY | | | | [address];[place], [place] | | | | | | [address] | | | | + + + + + + + + | Specimen | + + | Blood | + + + + + + + | Performing | Address | City/State/Zipcode | Phone Number | | Organization | | | | + + + + + | [facility] | [address] | [place] [address] | [phone] | + + + + + Type [...] + + + | BB BAND | [id number] | | [facility] | | | | | | LABORATORY | | + + + + + + | UNIT # | [id number] | | [facility] | | | | [...] | | | RESULT | performed at [facility];[address] | | LABORATORY | | | | [address];[place], [place] | | | | | | [address] | | | | + + + + + + | UNIT # | [id number] | | [facility] | | | | [...] + + | [facility] | [address] | [place] [address] | [phone] | + + + + + Red [...] BANK | Testing performed at | | [facility] | | | COMMENT | [facility];[address] | | LABORATORY | | | | [address];[place] [address] | | | | + + + + + + + + | Specimen | + + | | + + + + + + + | Performing | Address | City/State/Zipcode | Phone Number | | Organization | | | | + + + + + | [facility] | [address] | [place] [address] | [phone] | + + + + + Magnesium (10/12/2019 4:08 AM PDT) + + + + + + | Component | Value | Ref Range | Performed | Pathologist | | | | | At | Signature | + + + + + + | Magnesium | 1.9Comment: Testing | 1.7 - 2.4 mg/dL | [facility] | | | | performed at [facility];[address] | | LABORATORY | | | | [facility];[place], [place] | | | | | | [address] | | | | + + + + + + + + | Specimen | + + | Blood | + + + + + + + | Performing | Address | City/State/Zipcode | Phone Number | | Organization | | | | + + + + + | [facility] | [address] | [place] [address] | [phone] | + + + + + Comprehensive [...] | >60Comment: GFR <60: | >60 | [facility] | | | GFR | CHRONIC [...] | | | | | | MDRD IDTX traceable | | | | | | equation.Testing | | | | | | performed at [facility] | | | | | | [facility];[place], [place] | | | | | | [address] | | | | + + + + + + + + | Specimen | + + | Blood | + + + + + + + | Performing | Address | City/State/Zipcode | Phone Number | | Organization | | | | + + + + + | [facility] | [address] | [place] [address] | [phone] | + + + + + CBC [...] | [facility] | | | | NURSING [id number] H | g/dL | LABORATORY | | [...] | [facility] | | | | NURSING [id number] | | LABORATORY | | | | [...] LABORATORY | | | | performed at [facility];[address] | | | | | | [address];[place], [place] | | | | | | [address] | | | | + + + + + + + + | Specimen | + + | Blood | + + + + + + + | Performing | Address | City/State/Zipcode | Phone Number | | Organization | | | | + + + + + | [facility] | [address] | [place] [address] | [phone] | + + + + + Urinalysis [...] - 1.030 | [facility] | | | [place], | | | LABORATORY | | | [...] | | LABORATORY | | | | [address] | | | | | | [place] | | | | | | [address] | | | | + + + [...] | + + + + + | [facility] | [address] | [place] [address] | [phone] | + + + + + Osmolality, Urine (10/11/2019 11:16 AM PDT) + + + + + + | Component | Value | Ref Range | Performed | Pathologist | | | | | At | Signature | + + + + + + | OSMO URINE | 239Comment: Testing | 50 - 1,200 | [facility] | | | | performed at [facility], [address] | mOsm/kg | LABORATORY | | | | [address], | | | | | | [place] [address] | | | | + + + [...] | + + + + + | [facility] | [address] | [place] [address] | [phone] | + + + + + Culture, [...] | | LABORATORY | | | | Blvd;[place] [address] | | | | + + + + + + | RESULT | NO GROWTH 6 DAYS | | [facility] | | | | | | LAB[facility]AT[facility] | | + + + + + + | RESULT | Testing performed at | | [facility] | | | | [facility], [address] [facility] | | LABORATORY | | | | [place] | | | | | | [id number]: Testing | | | | | | performed at [facility], [address] | | | | | | [address] [place] | | | | | | [address] | | | | + + + + + + + + | Specimen | + + | Blood - Swab of line | | insertion site | | (specimen) | + + + + + + + | Performing | Address | City/State/Zipcode | Phone Number | | Organization | | | | + + + + + | [facility] | [address] | [place] [address] | [phone] | + + + + + XR [...] Procedure Note | + + | Espinoza, [id number] - 10/11/2019 10:42 AM PDT | | [...] | | LABORATORY | | | | Blvd;[place] [address] | | | | + + + + + + | RESULT | NO GROWTH 6 DAYS | | [facility] | | | | | | LABORATORY | | + + + + + + | RESULT | Testing performed at | | [facility] | | | | [facility], [address] [facility] | | LABORATORY | | | | [place] | | | | | | [address]Frutbih: Testing | | | | | | performed at [facility], [address] | | | | | | [address] [place] [place] | | | | | | [address] | | | | + + + + + + + + | Specimen | + + | Blood - Peripheral | | blood specimen | | (specimen) | + + + + + + + | Performing | Address | City/State/Zipcode | Phone Number | | Organization | | | | + + + + + | [facility] | [address] | [place] [address] | [phone] | + + + + + Sodium (10/11/2019 9:30 AM PDT) + + + + + + | Component | Value | Ref Range | Performed | Pathologist | | | | | At | Signature | + + + + + + | Na | 127 (L)Comment: Testing | 135 - 145 | [facility] | | | | performed at [facility];[address] | mmol/L | LABORATORY | | | | [address];[place] | | | | | | [address] | | | | + + + + + + + + | Specimen | + + | Blood | + + + + + + + | Performing | Address | City/State/Zipcode | Phone Number | | Organization | | | | + + + + + | [facility] | [address] | [place] [address] | [phone] | + + + + + Osmolality, Serum (10/11/2019 9:30 AM PDT) + + + + + + | Component | Value | Ref Range | Performed | Pathologist | | | | | At | Signature | + + + + + + | Osmolality, | 262 (L)Comment: Testing | 280 - 301 | [facility] | | | Serum | performed at [facility], [address] | mOsm/kg | LABORATORY | | | | [address], | | | | | | [place] [address] | | | | + + + + + + + + | Specimen | + + | Blood | + + + + + + + | Performing | Address | City/State/Zipcode | Phone Number | | Organization | | | | + + + + + | [facility] | [address] | [place] [address] | [phone] | + + + + + Comprehensive [...] | | | | | performed at [facility] | | | | | | [facility];[place], [place] | | | | | | [address] | | | | + + + + + + + + | Specimen | + + | Blood | + + + + + + + | Performing | Address | City/State/Zipcode | Phone Number | | Organization | | | | + + + + + | [facility] | [address] | [place] [address] | [phone] | + + + + + CBC [...] LABORATORY | | | | performed at [facility] | | | | | | [address];[place], [place] | | | | | | [address] | | | | + + + + + + + + | Specimen | + + | Blood | + + + + + + + | Performing | Address | City/State/Zipcode | Phone Number | | Organization | | | | + + + + + | [facility] | [address] | [place] [address] | [phone] | + + + + + Comprehensive [...] | | | | | performed at [facility];[address] | | | | | | [facility];[place], [place] | | | | | | [address] | | | | + + + + + + + + | Specimen | + + | Blood | + + + + + + + | Performing | Address | City/State/Zipcode | Phone Number | | Organization | | | | + + + + + | [facility] | [address] [facility] [address] | [place] [address] | [phone] | + + + + + Magnesium (10/10/2019 4:16 AM PDT) + + + + + + | Component | Value | Ref Range | Performed | Pathologist | | | | | At | Signature | + + + + + + | Magnesium | 1.8Comment: Testing | 1.7 - 2.4 mg/dL | [facility] | | | | performed at [facility];[address] | | LABORATORY | | | | [facility];[place], [place] | | | | | | [address] | | | | + + + + + + + + | Specimen | + + | Blood | + + + + + + + | Performing | Address | City/State/Zipcode | Phone Number | | Organization | | | | + + + + + | [facility] | [address] | [place] [address] | [phone] | + + + + + CBC with Differential (10/10/2019 4:16 AM PDT) + + + + + + | Component | Value | Ref Range | Performed | Pathologist | | | | | At | Signature | + + + + + + | WBC | 21.52 (H) | 3.80 - 11.00 | [facility] [...] | | | Absolute | performed at [facility];[address] | K/uL | LABORATORY | | | | [address];[place], [place] | | | | | | [address] | | | | + + + + + + + + | Specimen | + + | Blood | + + + + + + + | Performing | Address | City/State/Zipcode | Phone Number | | Organization | | | | + + + + + | [facility] | [address] | [place] [address] | [phone] | + + + + + Lactic Acid (10/09/2019 5:12 AM PDT) + + + + + + | Component | Value | Ref Range | Performed | Pathologist | | | | | At | Signature | + + + + + + | Lactate, | 1.8Comment: Testing | 0.4 - 2.0 | [facility] | | | Serum | performed at [facility];[address] | mmol/L | LABORATORY | | | | [address];[place] | | | | | | [address] | | | | + + + + + + + + | Specimen | + + | Blood | + + + + + + + | Performing | Address | City/State/Zipcode | Phone Number | | Organization | | | | + + + + + | [facility] | [address] | [place] [address] | [phone] | + + + + + Comprehensive [...] | >60Comment: GFR <60: | >60 | [facility] | | | GFR | CHRONIC [...] | | | | | performed at [facility] | | | | | | [facility];[place], [place] | | | | | | [address] | | | | + + + + + + + + | Specimen | + + | Blood | + + + + + + + | Performing | Address | City/State/Zipcode | Phone Number | | Organization | | | | + + + + + | [facility] | [address] | [place] [address] | [phone] | + + + + + Procalcitonin (10/09/2019 5:10 AM PDT) + + + + + + | Component | Value | Ref Range | Performed | Pathologist | | | | | At | Signature | + + + + + + | PROCALCITON | 0.65 (H)Comment: | <0.5 ng/mL | [facility] | | | [place] | INTERPRETIVE [...] | | | | | | at [facility];[address] [place] [address] | | | | | | [facility];[place] [address] | | | | + + + + + + + + | Specimen | + + | Blood | + + + + + + + | Performing | Address | City/State/Zipcode | Phone Number | | Organization | | | | + + + + + | [facility] | [address] | [place] [address] | [phone] | + + + + + Phosphorus (10/09/2019 5:10 AM PDT) + + + + + + | Component | Value | Ref Range | Performed | Pathologist | | | | | At | Signature | + + + + + + | Phosphorus | 4.0Comment: Testing | 2.3 - 4.8 mg/dL | [facility] | | | | performed at [facility];[address] | | LABORATORY | | | | [address];[place] | | | | | | [address] | | | | + + + + + + + + | Specimen | + + | Blood | + + + + + + + | Performing | Address | City/State/Zipcode | Phone Number | | Organization | | | | + + + + + | [facility] | [address] | [place] [address] | [phone] | + + + + + Magnesium (10/09/2019 5:10 AM PDT) + + + + + + | Component | Value | Ref Range | Performed | Pathologist | | | | | At | Signature | + + + + + + | Magnesium | 1.7Comment: Testing | 1.7 - 2.4 mg/dL | [facility] | | | | performed at [facility] | | LABORATORY | | | | [address] [facility];[place], [place] | | | | | | [address] | | | | + + + + + + + + | Specimen | + + | Blood | + + + + + + + | Performing | Address | City/State/Zipcode | Phone Number | | Organization | | | | + + + + + | [facility] | [address] | [place] [address] | [phone] | + + + + + CBC [...] | | | | | performed at [facility] [place];[facility] | | | | | | [address];[place] | | | | | | [address] | | | | + + + + + + + + | Specimen | + + | Blood | + + + + + + + | Performing | Address | City/State/Zipcode | Phone Number | | Organization | | | | + + + + + | [facility] | [address] | [place] [address] | [phone] | + + + + + POC Glucose (10/09/2019 12:47 AM PDT) + + + + + + | Component | Value | Ref Range | Performed | Pathologist | | | | | At | Signature | + + + + + + | Glucose, | 128 (H)Comment: Testing | 65 - 99 mg/dL | [facility] | | | POC | performed at [facility];[address] | | LABORATORY | | | | [address];[place], [place] | | | | | | [address] | | | | + + + + + + + + | Specimen | + + | | + + + + + + + | Performing | Address | City/State/Zipcode | Phone Number | | Organization | | | | + + + + + | [facility] | [address] | [place] [address] | [phone] | + + + + + Phosphorus (10/08/2019 5:23 PM PDT) + + + + + + | Component | Value | Ref Range | Performed | Pathologist | | | | | At | Signature | + + + + + + | Phosphorus | 3.4Comment: Testing | 2.3 - 4.8 mg/dL | [facility] | | | | performed at [facility];[address] | | LABORATORY | | | | [address];[place], [place] | | | | | | [address] | | | | + + + + + + + + | Specimen | + + | Blood | + + + + + + + | Performing | Address | City/State/Zipcode | Phone Number | | Organization | | | | + + + + + | [facility] | [address] | [place] [address] | [phone] | + + + + + Magnesium (10/08/2019 5:23 PM PDT) + + + + + + | Component | Value | Ref Range | Performed | Pathologist | | | | | At | Signature | + + + + + + | Magnesium | 1.8Comment: Testing | 1.7 - 2.4 mg/dL | [facility] | | | | performed at [facility];[address] | | LABORATORY | | | | [address];[place] | | | | | | [address] | | | | + + + + + + + + | Specimen | + + | Blood | + + + + + + + | Performing | Address | City/State/Zipcode | Phone Number | | Organization | | | | + + + + + | [facility] | [address] | [place] [address] | [phone] | + + + + + CBC [...] at | | | | | | [facility];[address];[place] [address] | | | | + + + + + + + + | Specimen | + + | Blood | + + + + + + + | Performing | Address | City/State/Zipcode | Phone Number | | Organization | | | | + + + + + | [facility] | [address] | [place] [address] | [phone] | + + + + + Basic [...] | | | | | performed at [facility];[address] | | | | | | [address];[place] | | | | | | [address] | | | | + + + + + + + + | Specimen | + + | Blood | + + + + + + + | Performing | Address | City/State/Zipcode | Phone Number | | Organization | | | | + + + + + | [facility] | [address] | [place] [address] | [phone] | + + + + + PTT (10/08/2019 5:23 PM PDT) + + + + + + | Component | Value | Ref Range | Performed | Pathologist | | | | | At | Signature | + + + + + + | PTT | 32Comment: Testing | 23 - 32 seconds | [facility] | | | | performed at [facility];[address] | | LABORATORY | | | | [address];[place], [place] | | | | | | [address] | | | | + + + + + + + + | Specimen | + + | Blood | + + + + + + + | Performing | Address | City/State/Zipcode | Phone Number | | Organization | | | | + + + + + | [facility] | [address] | [place] [address] | [phone] | + + + + + POC [...] | | | POC | performed at [facility];888 | g/dL | LABORATORY | | | | [address];[place] | | | | | | [address] | | | | + + + + + + + + | Specimen | + + | | + + + + + + + | Performing | Address | City/State/Zipcode | Phone Number | | Organization | | | | + + + + + | [facility] | [address] | [place] [address] | [phone] | + + + + + POC MIRNA, CG8, Arterial (10/08/2019 1:22 PM PDT) + [...] | | | POC | performed at [facility];[address] | g/dL | LABORATORY | | | | [address];[place], [place] | | | | | | [address] | | | | + + + + + + + + | Specimen | + + | | + + + + + + + | Performing | Address | City/State/Zipcode | Phone Number | | Organization | | | | + + + + + | [facility] | [address] | [place] [address] | [phone] | + + + + + Basic [...] | | | | | performed at [facility], [address] | | | | | | [facility], | | | | | | [place] [address] | | | | + + + + + + + + | Specimen | + + | Blood | + + + + + + + | Performing | Address | City/State/Zipcode | Phone Number | | Organization | | | | + + + + + | [facility] | [address] | [place] [address] | [phone] | + + + + + CBC [...] | | | Absolute | performed at [facility], [address] | K/uL | LABORATORY | | | | [address], | | | | | | [place] [address] | | | | + + + + + + + + | Specimen | + + | Blood | + + + + + + + | Performing | Address | City/State/Zipcode | Phone Number | | Organization | | | | + + + + + | [facility] | [address] | [place] [address] | [phone] | + + + + + Magnesium (10/08/2019 5:44 AM PDT) + + + + + + | Component | Value | Ref Range | Performed | Pathologist | | | | | At | Signature | + + + + + + | Magnesium | 1.6 (L)Comment: Testing | 1.7 - 2.4 mg/dL | [facility] | | | | performed at [facility];[address] | | LABORATORY | | | | [address];[place], [place] | | | | | | [address] | | | | + + + + + + + + | Specimen | + + | Blood | + + + + + + + | Performing | Address | City/State/Zipcode | Phone Number | | Organization | | | | + + + + + | [facility] | [address] | [place] [address] | [phone] | + + + + + PTT (10/07/2019 5:21 PM PDT) + + + + + + | Component | Value | Ref Range | Performed | Pathologist | | | | | At | Signature | + + + + + + | PTT | 28Comment: Testing | 23 - 32 seconds | [facility] | | | | performed at [facility];[address] | | LABORATORY | | | | [address];[place] | | | | | | [address] | | | | + + + + + + + + | Specimen | + + | Blood - Artery, | | Radial, Right | + + + + + + + | Performing | Address | City/State/Zipcode | Phone Number | | Organization | | | | + + + + + | [facility] | [address] | [place] [address] | [phone] | + + + + + Protime INR (10/07/2019 5:21 PM PDT) + + + + + + | Component | Value | Ref Range | Performed | Pathologist | | | | | At | Signature | + + + + + + | INR | 1.3Comment: REFERENCE | | [facility] | | | | RANGE:0.9 - [...] | | | | | performed at [facility];[address] | | | | | | [address];[place] | | | | | | [address] | | | | + + + + + + + + | Specimen | + + | Blood - Artery, | | Radial, Right | + + + + + + + | Performing | Address | City/State/Zipcode | Phone Number | | Organization | | | | + + + + + | [facility] | [address] | [place] [address] | [phone] | + + + + + Basic [...] | | | | | performed at [facility] | | | | | | [facility];[place], [place] | | | | | | [address] | | | | + + + + + + + + | Specimen | + + | Blood - Artery, | | Radial, Right | + + + + + + + | Performing | Address | City/State/Zipcode | Phone Number | | Organization | | | | + + + + + | [facility] | [address] | [place] [address] | [phone] | + + + + + CBC [...] LABORATORY | | | | performed at [facility];[address] | | | | | | [address];[place] | | | | | | [address] | | | | + + + + + + + + | Specimen | + + | Blood - Right upper | | arm structure (body | | structure) | + + + + + + + | Performing | Address | City/State/Zipcode | Phone Number | | Organization | | | | + + + + + | [facility] | [address] | [place] [address] | [phone] | + + + + + Surgical [...] | including foreign body giant cell reaction. AMB:[facility]:C2NR MICROSCOPIC | | | EXAMINATION:Histologic sections [...] attached red-white | | | fibromembranous tissue. Cable[employer] sections are submitted in | | [...] | LABORATORY:The technical component was performed by [facility] | | | [facility], [address] [place] [address] (Molding Supervisor: | | | Asia Rodriguez MD; CLIA# [id number]).Professional interpretation was | | | performed by [facility], [facility], [facility] | | | [place] [address] (Molding Supervisor: Solitario | | | Jacky Recio; CLIA#: [id number]). Diagnostician: Asia Rodriguez | | | MDPathologistElectronically Signed 10/10/2019 | | | | | |PERFORMING LABORATORY: | | |The technical component was performed by [facility], [address] [place] [address] (Molding Supervisor: Asia Rodriguez MD; CLIA# [id number]). | | |Professional interpretation was performed by [facility], [facility], [address] [place] [id number] (Molding Supervisor: Solitario Recio M.D.; CLIA#: [id number]). | | | | | |Diagnostician: Asia [...] | | + +---------+ + + POC MIRNA CG8, Arterial (10/07/2019 2:04 PM PDT) + [...] | | | POC | performed at [facility];888 | g/dL | LABORATORY | | | | [address];[place], [place] | | | | | | [address] | | | | + + + + + + + + | Specimen | + + | | + + + + + + + | Performing | Address | City/State/Zipcode | Phone Number | | Organization | | | | + + + + + | [facility] | [address] | [place] [address] | [phone] | + + + + + Red [...] | [facility] | | | COMMENT | [address] | | LABORATORY | | | | [address];[place] [address] | | | | + + + + + + + + | Specimen | + + | | + + + + + + + | Performing | Address | City/State/Zipcode | Phone Number | | Organization | | | | + + + + + | [facility] | [address] | [place] [address] | [phone] | + + + + + EDWARD CASTILLO Arterial (10/07/2019 12:37 PM PDT) + + [...] | | | POC | performed at [facility];[address] | g/dL | LABORATORY | | | | [address];[place], [place] | | | | | | [address] | | | | + + + + + + + + | Specimen | + + | | + + + + + + + | Performing | Address | City/State/Zipcode | Phone Number | | Organization | | | | + + + + + | [facility] | [address] | [place] [address] | [phone] | + + + + + POC ISTAT CG8, Arterial (10/07/2019 10:47 AM PDT) + [...] | | | POC | performed at [facility];[address] | g/dL | LABORATORY | | | | [address];[place], [place] | | | | | | [address] | | | | + + + + + + + + | Specimen | + + | | + + + + + + + | Performing | Address | City/State/Zipcode | Phone Number | | Organization | | | | + + + + + | [facility] | [address] | [place] [address] | [phone] | + + + + + POC ISTAT, CG8, Arterial (10/07/2019 8:40 AM PDT) + + + + + + | Component | Value | Ref Range | Performed | Pathologist | | | | | At | Signature | + + + + + + | pH, | 7.314 (L) | 7.350 - 7.450 | [facility] | | | Arterial, | | [...] | | | POC | performed at [facility];[address] | g/dL | LABORATORY | | | | [address];[place], [place] | | | | | | [address] | | | | + + + + + + + + | Specimen | + + | | + + + + + + + | Performing | Address | City/State/Zipcode | Phone Number | | Organization | | | | + + + + + | [facility] | [address] | [place] [address] | [phone] | + + + + + Red [...] BANK | Testing performed at | | JUA NM | | | COMMENT | [facility];[address] | | LABORATORY | | | | [address];[place] [address] | | | | + + + + + + + + | Specimen | + + | | + + + + + + + | Performing | Address | City/State/Zipcode | Phone Number | | Organization | | | | + + + + + | [facility] | [address] | [place] [address] | [phone] | + + + + + Magnesium (10/07/2019 3:55 AM PDT) + + + + + + | Component | Value | Ref Range | Performed | Pathologist | | | | | At | Signature | + + + + + + | Magnesium | 1.6 (L)Comment: Testing | 1.7 - 2.4 mg/dL | [facility] | | | | performed at [facility];[address] | | LABORATORY | | | | [address];[place], [place] | | | | | | [address] | | | | + + + + + + + + | Specimen | + + | Blood | + + + + + + + | Performing | Address | City/State/Zipcode | Phone Number | | Organization | | | | + + + + + | [facility] | [address] | [place] [address] | [phone] | + + + + + Type [...] + + + | BB BAND | [address] | | [facility] | | | | | | LABORATORY | | + + + + + + | UNIT # | [id number] | | [facility] | | | | [...] + + + | UNIT # | [id number] | | [facility] | | | | [...] + + + | UNIT # | [id number] | | [facility] | | | | [...] + + + | UNIT # | [id number] | | [facility] | | | | [...] | | | RESULT | performed at [facility] | | LABORATORY | | | | [address];[place] | | | | | | [address] | | | | + + + + + + + + | Specimen | + + | Blood | + + + + + + + | Performing | Address | City/State/Zipcode | Phone Number | | Organization | | | | + + + + + | [facility] | [address] | [place] [address] | [phone] | + + + + + Basic [...] | 9.2 | 8.5 - 10.5 | [facility] | | | | | mg/dL | LABORATORY | | + + + + + + | Estimated | >60Comment: GFR <60: | >60 | [facility] | | | GFR | CHRONIC [...] | | | | | | MDRD IDTX traceable | | | | | | equation.Testing | | | | | | performed at [facility];[address] | | | | | | [facility];[place], [place] | | | | | | [address] | | | | + + + + + + + + | Specimen | + + | Blood | + + + + + + + | Performing | Address | City/State/Zipcode | Phone Number | | Organization | | | | + + + + + | [facility] | [address] | [place] [address] | [phone] | + + + + + CBC [...] 0.07Comment: Testing | 0.00 - 0.10 | [facility] | | | Absolute | performed at [facility];[address] | K/uL | LABORATORY | | | | [address];[place] | | | | | | [address] | | | | + + + + + + + + | Specimen | + + | Blood | + + + + + + + | Performing | Address | City/State/Zipcode | Phone Number | | Organization | | | | + + + + + | [facility] | [address] | [place] [address] | [phone] | + + + + + Magnesium (10/06/2019 6:27 AM PDT) + + + + + + | Component | Value | Ref Range | Performed | Pathologist | | | | | At | Signature | + + + + + + | Magnesium | 1.6 (L)Comment: Testing | 1.7 - 2.4 mg/dL | [facility] | | | | performed at [facility];[address] | | LABORATORY | | | | [address];[place] | | | | | | [address] | | | | + + + + + + + + | Specimen | + + | Blood | + + + + + + + | Performing | Address | City/State/Zipcode | Phone Number | | Organization | | | | + + + + + | [facility] | [address] | [place] [address] | [phone] | + + + + + Basic [...] | >60Comment: GFR <60: | >60 | [facility] | | | GFR | CHRONIC [...] | | | | | performed at [facility], [address] | | | | | | [facility], | | | | | | [place] [address] | | | | + + + + + + + + | Specimen | + + | Blood | + + + + + + + | Performing | Address | City/State/Zipcode | Phone Number | | Organization | | | | + + + + + | [facility] | [address] | [place] [address] | [phone] | + + + + + CBC [...] 0.08Comment: Testing | 0.00 - 0.10 | [facility] | | | Absolute | performed at [facility], [address] | K/uL | LABORATORY | | | | [address], | | | | | | [place] [address] | | | | + + + + + + + + | Specimen | + + | Blood | + + + + + + + | Performing | Address | City/State/Zipcode | Phone Number | | Organization | | | | + + + + + | [facility] | [address] | [place] [address] | [phone] | + + + + + Magnesium (10/05/2019 5:02 AM PDT) + + + + + + | Component | Value | Ref Range | Performed | Pathologist | | | | | At | Signature | + + + + + + | Magnesium | 1.7Comment: Testing | 1.7 - 2.4 mg/dL | [facility] | | | | performed at [facility];[address] | | LABORATORY | | | | [address];[place], [place] | | | | | | [address] | | | | + + + + + + + + | Specimen | + + | Blood | + + + + + + + | Performing | Address | City/State/Zipcode | Phone Number | | Organization | | | | + + + + + | [facility] | [address] | [place] [address] | [phone] | + + + + + Basic [...] | >60Comment: GFR <60: | >60 | [facility] | | | GFR | CHRONIC [...] | | | | | performed at [facility], [address] | | | | | | [facility], | | | | | | [place] [address] | | | | + + + + + + + + | Specimen | + + | Blood | + + + + + + + | Performing | Address | City/State/Zipcode | Phone Number | | Organization | | | | + + + + + | [facility] | [address] | [place] [address] | [phone] | + + + + + CBC [...] 0.08Comment: Testing | 0.00 - 0.10 | [facility] | | | Absolute | performed at [facility], [address] | [address]/u[address] | LABORATORY | | | | [address], | | | | | | [place] [address] | | | | + + + + + + + + | Specimen | + + | Blood | + + + + + + + | Performing | Address | City/State/Zipcode | Phone Number | | Organization | | | | + + + + + | [facility] | [address] | [place] [address] | [phone] | + + + + + ECHO [...] | Procedure Note | + + | [facility], [id number] - 10/04/2019 12:10 PM PDT | | [...] Result | NEGATIVEComment: Testing | MRSNEG | KT | | | | performed at [facility];[address] | | LABORATORY | | | | [address];[place] | | | | | | [address] | | | | + + + [...] [facility] | [address] | [place] [address] | [phone] | + + + + + Protime [...] | | | | | performed at [facility] | | | | | | [facility];[place], [place] | | | | | | [address] | | | | + + + + + + + + | Specimen | + + | Blood | + + + + + + + | Performing | Address | City/State/Zipcode | Phone Number | | Organization | | | | + + + + + | [facility] | [address] | [place] [address] | [phone] | + + + + + Uric Acid (10/04/2019 4:26 AM PDT) + + + + + + | Component | Value | Ref Range | Performed | Pathologist | | | | | At | Signature | + + + + + + | Uric Acid | 3.2Comment: Testing | 3.2 - 8.6 mg/dL | [facility] | | | | performed at [facility], [address] | | LABORATORY | | | | [address], | | | | | | [place] [address] | | | | + + + + + + + + | Specimen | + + | Blood | + + + + + + + | Performing | Address | City/State/Zipcode | Phone Number | | Organization | | | | + + + + + | [facility] | [address] | [place] [address] | [phone] | + + + + + Lipid [...] | 80Comment: Testing | <100 mg/dL | [facility] | | | Calculated | performed at [facility], [address] | | LABORATORY | | | | [address], | | | | | | [place] [address] | | | | + + + + + + + + | Specimen | + + | Blood | + + + + + + + | Performing | Address | City/State/Zipcode | Phone Number | | Organization | | | | + + + + + | [facility] | [address] | [place] [address] | [phone] | + + + + + Comprehensive [...] | | | | | performed at [facility], [address] | | | | | | [facility], | | | | | | [place] [address] | | | | + + + + + + + + | Specimen | + + | Blood | + + + + + + + | Performing | Address | City/State/Zipcode | Phone Number | | Organization | | | | + + + + + | [facility] | [address] | [place] [address] | [phone] | + + + + + CBC [...] | | | Absolute | performed at [facility], [address] | K/u[address] | LABORATORY | | | | [facility], | | | | | | [place] [address] | | | | + + + + + + + + | Specimen | + + | Blood | + + + + + + + | Performing | Address | City/State/Zipcode | Phone Number | | Organization | | | | + + + + + | [facility] | [address] | [place] [address] | [phone] | + + + + + Coronavirus [...] | | | | | performed at [facility] | | | | | | [facility];[place], [place] | | | | | | [address] | | | | + + + + + + + + | Specimen | + + | Tissue - Entire | | nasopharynx (body | | structure) | + + + + + + + | Performing | Address | City/State/Zipcode | Phone Number | | Organization | | | | + + + + + | [facility] | [address] | [place] [address] | [phone] | + + + + + ECG [...] | | | | XIANG HART MD ([id number]) | | | | | | on [...] LABORATORY | | | | Blvd;[place] [address] | | | | + + + + + + + + | Specimen | + + | Blood | + + + + + + + | Performing | Address | City/State/Zipcode | Phone Number | | Organization | | | | + + + + + | [facility] | [address] | [place] [address] | [phone] | + + + + + Comprehensive [...] | | | | | performed at [facility];[address] | | | | | | [facility];[place], [place] | | | | | | [address] | | | | + + + + + + + + | Specimen | + + | Blood | + + + + + + + | Performing | Address | City/State/Zipcode | Phone Number | | Organization | | | | + + + + + | [facility] | [address] | [place] [address] | [phone] | + + + + + CBC [...] 0.06Comment: Testing | 0.00 - 0.10 | [facility] | | | Absolute | performed at [facility];[address] | K/uL | LABORATORY | | | | [address];[place] | | | | | | [address] | | | | + + + + + + + + | Specimen | + + | Blood | + + + + + + + | Performing | Address | City/State/Zipcode | Phone Number | | Organization | | | | + + + + + | [facility] | [address] | [place] [address] | [phone] | + + + + + documented [...] clopidogrel (PLAVIX) tablet 75 | Given | 08/17/20 | 75 mg | | | | [...] | | | | | | Starting [facility] 10/12/19 at 1744 | | | [...] | | | | | | longer, svebez-kqc-hiedu use of | | | | | [...] | | | | | | | kofrse-swt-mlkmb use of at least | | | [...] | | | | | | | cciqhn-lvr-qenkj use of at least | | | [...] | | | | | | | Wed10/11/19 at 1111, NON-ICU | | | | [...] 11:51 | | | | | ONCE, Wed10/04/19 at 0000, For 1 | | PM [...]
--- OUTSIDE RECORDS SUMMARY | ~2019-10-23 | XMS | Encounter Summary ---
Demographics + + + | Address | [address] | | | [place] [address] | + + + | Home Phone | | + + + | Preferred Language | Unknown | + + + | Marital Status | Single | + + + | Orthodoxy Affiliation | BAP | + + + | Race | White | + + + | Ethnic Group | Not or | + + + Author + + + | Author | [facility] [employer] [facility] | + + + | Organization | [facility] | + + + | Address | Unknown | + + + | Phone | Unavailable | + + + Support + + +---------+ + | Name | Relationship | Address | Phone | + + +---------+ + | Lele Conley | ECON | Unknown | | + + +---------+ + Care Team Providers + +------+ + | Care Tanker Serviceman Name | Role | Phone | + [...] [address] | | | | | [place] | [place] | | | | | [address] | [address] | | | | | [phone] | [phone] | | | | | | | [...] DEPARTMENT OF | [address] | [place] [address] | | | PATHOLOGY | [address] | | | + + + + + | [facility] DEPARTMENT OF | [address] | [place] [address] | | | PATHOLOGY | [address] [...] DEPARTMENT OF | [address] | [place] [address] | | | PATHOLOGY | [address] | | | + + + + + | [facility] DEPARTMENT OF | [address] | [place] [address] | | | PATHOLOGY | [address] [...] + | [facility] DEPARTMENT OF | [address] | [place] [address] | | | PATHOLOGY | [address] | | | + + + + + | [facility] DEPARTMENT OF | [address] | [place] [address] | | | PATHOLOGY | [address] [...] | + + + + + | [facility] DEPARTMENT OF | [address] | [place] [address] | | | PATHOLOGY | [address] | | | + + + + + | [facility] DEPARTMENT OF | [address] | [place] [address] | | | PATHOLOGY | [address] [...] | + + + + + | [facility] OF | [address] | [place] [address] | | | PATHOLOGY | [address] | | | + + + + + | [facility] OF | [facility] [address] | [place] [address] | | | PATHOLOGY | [address] [...] | + + + + + | [facility] DEPARTMENT OF | [address] | [place] [address] | | | PATHOLOGY | [address] | | | + + + + + | [facility] DEPARTMENT OF | [address] | [place] [address] | | | PATHOLOGY | [address] | | | + + + + + PHOSPHORUS, PLASMA (05/01/2007 2:10 AM PST) + +-------+ + + + | Component | Value | Ref Range | Performed | Pathologist | | | | | At | Signature | + +-------+ + + + | PHOSPHORUS, | 3.0 | 2.4 - 4.7 mg/dL | [facility] | | | PLASMA | | | [...] | + + + + + | [facility] DEPARTMENT | [address] | [place] [address] | | | PATHOLOGY | [address] | | | + + + + + | [facility] | [address] [place] [address] | [place] [address] | | | PATHOLOGY | [address] [...] | + + + + + | [facility] DEPARTMENT OF | [address] | [place] [address] | | | PATHOLOGY | [address] | | | + + + + + | [facility] DEPARTMENT OF | [address] | [place] [address] | | | PATHOLOGY | [address] [...] | + + + + + | [facility] DEPARTMENT OF | [address] | [place] [address] | | | PATHOLOGY | [address] | | | + + + + + | [facility] DEPARTMENT OF | [address] | [place] [address] | | | PATHOLOGY | [address] [...] | + + + + + | [facility] DEPARTMENT OF | [address] | [place] [address] | | | PATHOLOGY | [address] | | | + + + + + | [facility] DEPARTMENT OF | [address] | [place] [address] | | | PATHOLOGY | [address] [...] | + + + + + | [facility] DEPARTMENT OF | [address] | [place] [address] | | | PATHOLOGY | [address] | | | + + + + + | [facility] DEPARTMENT OF | [address] | [place] [address] | | | PATHOLOGY | [address] [...] | + + + + + | [facility] DEPARTMENT OF | [address] | [place] [address] | | | PATHOLOGY | [address] | | | + + + + + | [facility] DEPARTMENT OF | [address] | [place] [address] | | | PATHOLOGY | [address] [...] + + | [facility] DEPARTMENT OF | [address] | [place] [address] | | | PATHOLOGY | [address] | | | + + + + + | [facility] DEPARTMENT OF | [address] | [place] [address] | | | PATHOLOGY | [address] [...] | + + + + + | [facility] DEPARTMENT OF | [address] | [place] [address] | | | PATHOLOGY | [address] | | | + + + + + | [facility] DEPARTMENT OF | [address] | [place] [address] | | | PATHOLOGY | [address] [...] + | [facility] DEPARTMENT OF | [address] | [place] [address] | | | PATHOLOGY | [address] | | | + + + + + | [facility] DEPARTMENT OF | [address] | [place] [address] | | | PATHOLOGY | [address] [...] + + + + + | [facility] | [address] | [place] [address] | | | PATHOLOGY | [address] | | | + + + + + | [facility] | [address] | [place] [address] | | | PATHOLOGY | [address] [...] endograftPrimary | | | | | | destination imagination coordinator: Mickey, | | | | | | PederMDAssistant | | | | | | attending destination imagination coordinator: | | | | | | Rudolph [...] | | | | | | 1. 4-Indonesian pigtail | | | | | | [...] endograftOperation5. | | | | | | 5-Indonesian pigtail | | | | | | [...] | | | | | technique a 4-Indonesian | | | | | | pigtail [...] a | | | | | | 16-Indonesian sheath was | | | | | [...] | | | | | | the 16-Indonesian sheath and | | | | | [...] | | | | | | balloon. A5-Indonesian | | | | | | pigtail [...] | | + +---------+ + + | [facility] DEPARTMENT OF | | | | | [...] DEPARTMENT OF | [address] | [place] [address] | | | PATHOLOGY | [address] | | | + + + + + | [facility] DEPARTMENT OF | [address] | [place] [address] | | | PATHOLOGY | [address] | | | + + + + + PHOSPHORUS, PLASMA (04/30/2007 4:05 AM PST) + +-------+ + + + | Component | Value | Ref Range | Performed | Pathologist | | | | | At | Signature | + +-------+ + + + | PHOSPHORUS, | 2.9 | 2.4 - 4.7 mg/dL | [facility] | | | PLASMA | | | [...] + + + + + | [facility] | [address] | [place] [address] | | | PATHOLOGY | [address] | | | + + + + + | [facility] OF | [address] | [place] [address] | | | PATHOLOGY | [address] [...] + + + + + | [facility] | [facility] | [place] [address] | | | PATHOLOGY | [address] | | | + + + + + | [facility] DEPARTMENT OF | [facility] | [place] [address] | | | PATHOLOGY | [address] [...] | + + + + + | [facility] DEPARTMENT OF | [address] | [place] [address] | | | PATHOLOGY | [address] | | | + + + + + | [facility] DEPARTMENT OF | [address] | [place] [address] | | | PATHOLOGY | [address] [...] + + + + + | [facility] | [address] | [place] [address] | | | PATHOLOGY | [address] | | | + + + + + | [facility] | [address] | [place] [address] | | | PATHOLOGY | [address] [...] the | | | | | | [facility] and | | | | | [...] | | + +---------+ + + | [facility] DEPARTMENT OF | | | | | [...] the | | | | | | [facility] and | | | | | [...] | | + +---------+ + + | [facility] DEPARTMENT OF | | | | | [...] | | + +---------+ + + | [facility] DEPARTMENT OF | | | | | [...] DEPARTMENT OF | [address] | [place] [address] | | | PATHOLOGY | [address] | | | + + + + + | [facility] DEPARTMENT | [address] | [place] [address] | | | PATHOLOGY | [address] [...] + + + + + | [facility] | [address] | [place] [address] | | | PATHOLOGY | [address] | | | + + + + + | [facility] | [address] | [place] [address] | | | PATHOLOGY | [address] [...] + + + | [facility] | [address] | [place] [address] | | | LABORATORY | | | [...] + + + + + | [facility] | [address] | [place] [address] | | | PATHOLOGY | [address] | | | + + + + + | [facility] | [address] | [place] [address] | | | PATHOLOGY | [address] [...] | + + + + + | [facility] DEPARTMENT OF | [address] | [place] [address] | | | PATHOLOGY | [address] | | | + + + + + | [facility] DEPARTMENT OF | [address] | [place] [address] | | | PATHOLOGY | [address] [...] | + + + + + | [facility] | [address] | [place] [address] | | | PATHOLOGY | [address] | | | + + + + + | [facility] OF | [address] | [place] [address] | | | PATHOLOGY | [address] [...] + + + + + | [facility] | [facility] | [place] [address] | | | PATHOLOGY | [address] | | | + + + + + | [facility] DEPARTMENT OF | [facility] | [place] [address] | | | PATHOLOGY | [address] [...] | + + + + + | [facility] DEPARTMENT OF | [address] | [place] [address] | | | PATHOLOGY | [address] | | | + + + + + | [facility] DEPARTMENT OF | [address] | [place] [address] | | | PATHOLOGY | [address] [...] + + | [facility] DEPARTMENT OF | [address] | [place] [address] | | | PATHOLOGY | [address] | | | + + + + + | [facility] DEPARTMENT OF | [address] | [place] [address] | | | PATHOLOGY | [address] | | | + + + + + PROTHROMBIN TIME (04/29/2007 6:15 PM PST) + + + + + + | Component | Value | Ref Range | Performed | Pathologist | | | | | At | Signature | + + + + + + | INR | 1.05Comment: | 0.90 - 1.20 INR | [facility] | | | | PT INR Therapeutic [...] + + + + + | [facility] | [facility] | [place] [address] | | | PATHOLOGY | [address] | | | + + + + + | [facility] DEPARTMENT OF | [address] | [place] [address] | | | PATHOLOGY | [address] [...] DEPARTMENT OF | [address] | [place] [address] | | | PATHOLOGY | [address] | | | + + + + + | [facility] DEPARTMENT | [address] | [place] [address] | | | PATHOLOGY | [address] [...] + + + + + | [facility] | [address] | [place] [address] | | | PATHOLOGY | [address] | | | + + + + + | [facility] | [address] | [place] [address] | | | PATHOLOGY | [address] | | | + + + + + documented in this encounter Visit Diagnoses Not on filedocumented in this encounter"
--- OUTSIDE RECORDS SUMMARY | ~2019-10-23 | XMS | Encounter Summary ---
Demographics + + + | Address | [address] | | | [place] [address] | + + + | Home Phone | | + + + | Preferred Language | Unknown | + + + | Marital Status | Single | + + + | Latter Day Affiliation | 1009 | + + + [...] Team Providers + +------+ + | Care Laser/Electro Optics Technician Name | Role | Phone | [...] + + + | 10/16/ Telephone | [facility] | Rachel Juarez, | Follow-up | | 2019 | | VASCULAR SURGERY | RN | | | | | [address] | | | | | | [place] | | | | | | [address] | | | | | | [phone] | | | +--------+ + + + [...] Justinjeanne Iveth Desmond - [facility]2019 [facility] and [...] | | 2019 | Visit | | [address] | | | | | | [place] | | | | | | [id number] | | | | | | | | +--------+---------+ + + + documented as of this encounter Visit Diagnoses Not on filedocumented in this encounter"
--- OUTSIDE RECORDS SUMMARY | ~2019-10-23 | XMS | Clinical Summary ---
Demographics + + + | Address | [address] | | | [place] [address] | + + + | Home Phone | | + + + | Preferred Language | Unknown | + + + | Marital Status | Single | + + + | Yazidism Affiliation | 1009 | + + + | Race | White | + + + | Ethnic Group | Not or | + + + Author + + + | Author | [facility] | | | and [place] | + + + | Organization | [facility] | | [...] Team Providers + +------+ + | Care Lieutenant General Name | Role | Phone | + [...] | | + + + +---------+------+------+-------+ | acetaminophen | Take 2 tablets by | 120 | 0 | 08/1 | 09/ | Activ | | (TYLENOL) 325 mg | mouth every 4 hours | tablet | | / | 08/18 | e | | tablet | as needed for Pain | | | 20 | 20 | | | | (or fever >= 38.6 C | | | | | | | | (101.5 F)) for up to | | | | | | | | 30 days. | | | | | | + + + +---------+------+------+-------+ | aspirin 81 mg | Chew and swallow 1 | 30 | 1 | 08/1 | 09/1 | Activ | | chewable tablet | tablet Daily for 30 | tablet | | 8/20 | 7/20 | e | | | days. | | | 20 | 20 | | + + + +---------+------+------+-------+ | atorvaSTATin | Take 1 tablet by | 30 | 1 | 08/1 | 09/ | Activ | | (LIPITOR) 40 mg | mouth nightly for 30 | tablet | | 7/20 | 6/20 | e | | tablet | days. | | | 20 | 20 | | + + + +---------+------+------+-------+ | [...] | mouth Daily. | tablet | | 8 | | e | | tablet | | | | 20 | | | + + + +---------+------+------+-------+ Active Problems + + + | Problem [...] automatically from request for surgery | | [id number] | + + Encounters +--------+ + + + + | Date | Type | Specialty | Care Team | Description | +--------+ + + + + | 10/16/ | Telephone | Vascular Surgery | Rachel Juarez, | Follow-up | | 2019 | | | RN | | +--------+ + + + + | 10/07/ | Anesthesia | | Katina, | | | 2019 | Event | [...] 2019 | Event | | MD Ketan Hossein | | | | | | Taisha Perkins CRNA | | +--------+ + + + + | 10/02/ | Hospital | Internal Medicine | Jairo Renner MD | 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); | | | | | Poli Powell MD | Pseudoaneurysm | | | | | | ([facility]); Peripheral | | | | | | arterial disease | | | | | | (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); | | | | | [...] + + + | Blood Pressure | 144/74 | 10/16/2019 7:06 AM | | | | | PDT | | + + + + + | Pulse | 99 | 10/16/2019 7:06 AM | | | | | PDT | | + + + + + | Temperature | 36.7 C (98 F) | 10/16/2019 7:06 AM | | | | | PDT | | + + + + + | Respiratory Rate | 18 | 10/16/2019 7:06 AM | | | | | PDT | | + + + + + | Oxygen Saturation | 93% | 10/16/2019 7:06 AM | | | [...] + + + + Plan of Treatment +--------+---------+ + + + | Date | Type | Specialty | Care Team | Description | +--------+---------+ + + + | 10/24/ | Office | Vascular Surgery | Ricci De León DNP | | | 2020 | Visit | | [address] | | | | | | [place] | | | | | | [address] | | | | | | | | +--------+---------+ + + + + + +-------+ + | Health Maintenance | Due Date | Last | Comments | | | | Done | | + + +-------+ + | Hepatitis C | | | | | Screening | 8 | | | + + +-------+ + | Vaccine: | | | | | Pneumococcal 19-64 | 4 | | | | (1 of 1 - PPSV23) | | | | + + +-------+ + | Vaccine: | | | | | Dtap/Tdap/Td (1 - | 7 | | | | Tdap) | | | | + + +-------+ + | Colorectal Cancer | | | | | Screening | 8 | | | | (Colonoscopy) | | | | + + +-------+ + | Vaccine: Zoster (1 | | | | | of 2) | 8 | | | + + +-------+ + | Vaccine: Influenza | | | | | (#1) | 0 | | | + + +-------+ + Implants + +-------+------+ +--------+--------+--------+ | Implanted | Type | Area | Manufacture | Device | Shelf | Model | | | | | r | | Expira | / | | | | | | Identi | tion | Serial | | | | | | fier | Date | / Lot | + +-------+------+ +--------+--------+--------+ | Graft Emerson Propaten [id number] | Graft | | [facility] - | | | [id number] | | - [id number]: | | | WLGO | | | 50A | | Qty: 1 on 10/07/2019 by | | | | | | /[id number] | | Magdiel Arteaga MD at [facility] | | | | | | [id number] | | [facility] | | | | | | 5 /NA | | CENTER | | | | | | | + +-------+------+ +--------+--------+--------+ | Graft Hemgrd Knit [id number] - | Graft | | MAQUET | | | [id number] | | [id number]: Qty: 1 | | | CARDIOVASCU | | | 8-40 | | on 10/07/2019 by Magdiel Arteaga | | | LAR US | | | /[id number] | | MD Norma at [facility] | | | SALES - | | | [id number] | | [facility] | | | MAQU | | | /[id number] | + +-------+------+ +--------+--------+--------+ | Graft Vas Propaten 6-80mm - | Graft | | [facility] - | | 02/22/ | [id number] | | [id number]: Qty: | | | WLGO | | 3 | 80A | | 1 on 10/08/2019 by Chandler, | | | | | | /[id number] | | Magdiel Green MD at [facility] | | | | | | [id number] | | [facility] | | | | | | 1 /NA | + +-------+------+ +--------+--------+--------+ | Graft Vas Propaten 6-80mm - | Graft | | [facility] - | | 06/27/ | [id number] | | [id number]: Qty: | | | WLGO | | 4 | 80A | | 1 on 10/08/2019 by Chandler, | | | | | | /[id number] | | Magdiel Green MD at [facility] | | | | | | [id number] | | [facility] | | | | | | 2 [...] EXTREMITY BILATERAL | | 9:22 AM | ([facility]) Peripheral | | | (77455) | | PDT | arterial disease | | | | | | (HCC) | | + +--------+ + + + | BYPASS GRAFT | | 10/08/2019 | Pseudoaneurysm | | | FEMORAL-POPLITEAL | | 9:22 AM | ([facility]) Peripheral | | | | [...] + +--------+ + + + | POC SCOTT BRADLEY8, | Routin | 10/07/2019 | | Results [...] | FEMORAL | | 7:07 AM | ([facility]) | | | | | [...] +---+ + from Last 3 Months Results CBC no Differential (10/16/2019 5:11 AM PDT)Only the most recent of 6 results within the martha period is included. + + + [...] LABORATORY | | | | performed at [facility], [address] | | [address], | | | | | | [place] [address] | | | | + + + + + + + + | Specimen | + + | Blood | + + + + + + + | Performing | Address | City/State/Zipcode | Phone Number | | Organization | | | | + + + + + | [facility] | [address] | [place] [address] | [phone] | + + + + + Potassium [...] (L)Comment: Testing | 3.5 - 4.9 | [facility] | | | | performed at [facility];[address] | mmol/L | LABORATORY | | | | [address];[place], [place] | | | | | | [address] | | | | + + + + + + + + | Specimen | + + | Blood | + + + + + + + | Performing | Address | City/State/Zipcode | Phone Number | | Organization | | | | + + + + + | [facility] | [address] | [place] [address] | [phone] | + + + + + Magnesium [...] KT | | | | performed at [facility];[address] | | LABORATORY | | | | [address];[place] | | | | | | [address] | | | | + + + + + + + + | Specimen | + + | Blood | + + + + + + + | Performing | Address | City/State/Zipcode | Phone Number | | Organization | | | | + + + + + | [facility] | [address] | [place] [address] | [phone] | + + + + + Basic [...] 134 (L) | 135 - 145 | [facility] [...] | | | | | performed at [facility], [address] | | | | | | [facility], | | | | | | [place] [address] | | | | + + + + + + + + | Specimen | + + | Blood | + + + + + + + | Performing | Address | City/State/Zipcode | Phone Number | | Organization | | | | + + + + + | [facility] | [address] | [place] [address] | [phone] | + + + + + Phosphorus [...] Testing | 2.3 - 4.8 mg/dL | [facility] | | | | performed at [facility];[address] | | LABORATORY | | | | [address];[place], [place] | | | | | | [address] | | | | + + + + + + + + | Specimen | + + | Blood | + + + + + + + | Performing | Address | City/State/Zipcode | Phone Number | | Organization | | | | + + + + + | [facility] | [address] | [place] [address] | [phone] | + + + + + Hemoglobin [...] KT | | | | performed at [facility];[address] | | LABORATORY | | | | [address];[place] | | | | | | [address] | | | | + + + + + + + + | Specimen | + + | Blood | + + + + + + + | Performing | Address | City/State/Zipcode | Phone Number | | Organization | | | | + + + + + | [facility] | [address] | [place] [address] | [phone] | + + + + + Clostridium [...] C. | Negative for toxigenic | | [facility] | | | difficile, | C.difficile.Comment: | | LABORATORY | | | Interp | Testing performed at | | | | | | [facility];[address] | | | | | | [address];[place] [address] | | | | + + + + + + + + | Specimen | + + | Stool - Stool | | specimen (specimen) | + + + + + + + | Performing | Address | City/State/Zipcode | Phone Number | | Organization | | | | + + + + + | [facility] | [address] | [place] [address] | [phone] | + + + + + Red [...] + + + | BB BAND | [id number] | | [facility] | | | | | | LABORATORY | | + + + + + + | UNIT # | [id number] | | [facility] | | | | [...] | | | RESULT | performed at [facility];[address] | | LABORATORY | | | | [address];[place], [place] | | | | | | [address] | | | | + + + + + + | UNIT # | [id number] | | [facility] | | | | [...] + + + + + | [facility] | [address] | [place] [address] | [phone] | + + + + + Red [...] | ORDER RECEIVED IN BLOOD | | [facility] | | | COMMENT | BANK. | | LABORATORY | | + + + + + + | BLOOD BANK | Testing performed at | | [facility] | | | COMMENT | [facility];[address] | | LABORATORY | | | | [address];[place] [address] | | | | + + + + + + + + | Specimen | + + | | + + + + + + + | Performing | Address | City/State/Zipcode | Phone Number | | Organization | | | | + + + + + | [facility] | [address] | [place] [address] | [phone] | + + + + + Comprehensive [...] | | | | | | MDRD [facility] traceable | | | | | | equation.Testing | | | | | | performed at [facility];[address] | | | | | | [address];[place], [place] | | | | | | [address] | | | | + + + + + + + + | Specimen | + + | Blood | + + + + + + + | Performing | Address | City/State/Zipcode | Phone Number | | Organization | | | | + + + + + | [facility] | [address] | [place] [address] | [phone] | + + + + + Urinalysis [...] - 1.030 | [facility] | | | [place], | | | LABORATORY | | | [...] LABORATORY | | | | [facility], [address] | | | | | | [place] | | | | | | [address] | | | | + + + [...] + + + + + | [facility] | [address] | [place] [address] | [phone] | + + + + + Osmolality, [...] | | | | | [place] [address] | | | | + + + [...] [facility] | [address] | [place] [address] | [phone] | + + + + + Culture, [...] Special | Testing performed at | | [facility] | | | Requests | [facility];[address] | | LABORATORY | | | | [address];[place] [address] | | | | + + + + + + | RESULT | NO GROWTH 6 DAYS | | [facility] | | | | | | LABORATORY | | + + + + + + | RESULT | Testing performed at | | [facility] | | | | [facility], [address] [facility] | | LABORATORY | | | | [address], [place], [place] | | | | | | [address]Juzaoug: Testing | | | | | | performed at [facility], [address] | | | | | [address], [place], [place] | | | | | | [address] | | | | + + + + + + + + | Specimen | + + | Blood - Swab of line | | insertion site | | (specimen) | + + + + + + + | Performing | Address | City/State/Zipcode | Phone Number | | Organization | | | | + + + + + | [facility] | [address] | [place] [address] | [phone] | + + + + + XR [...] Procedure Note | + + | Espinoza, [id number] - 10/11/2019 10:42 AM PDT | | [...] [facility] | | | | performed at [facility];[address] | mmol/L | LABORATORY | | | | [address];[place], [place] | | | | | | [address] | | | | + + + + + + + + | Specimen | + + | Blood | + + + + + + + | Performing | Address | City/State/Zipcode | Phone Number | | Organization | | | | + + + + + | [facility] | [address] | [place] [address] | [phone] | + + + + + Osmolality, Serum (10/11/2019 9:30 AM PDT) + + + + + + | Component | Value | Ref Range | Performed | Pathologist | | | | | At | Signature | + + + + + + | Osmolality, | 262 (L)Comment: Testing | 280 - 301 | [facility] | | | Serum | performed at [facility], [address] | mOsm/kg | LABORATORY | | | | [address], | | | | | | [place] [address] | | | | + + + + + + + + | Specimen | + + | Blood | + + + + + + + | Performing | Address | City/State/Zipcode | Phone Number | | Organization | | | | + + + + + | [facility] | [address] | [place] [address] | [phone] | + + + + + CBC [...] 0.05Comment: Testing | 0.00 - 0.10 | [facility] | | | Absolute | performed at [facility];[address] | K/uL | LABORATORY | | | | [address];[place], [place] | | | | | | [address] | | | | + + + + + + + + | Specimen | + + | Blood | + + + + + + + | Performing | Address | City/State/Zipcode | Phone Number | | Organization | | | | + + + + + | [facility] | [address] | [place] [address] | [phone] | + + + + + Lactic Acid (10/09/2019 5:12 AM PDT) + + + + + + | Component | Value | Ref Range | Performed | Pathologist | | | | | At | Signature | + + + + + + | Lactate, | 1.8Comment: Testing | 0.4 - 2.0 | [facility] | | | Serum | performed at [facility];[address] | mmol/L | LABORATORY | | | | [address];[place], [place] | | | | | | [address] | | | | + + + + + + + + | Specimen | + + | Blood | + + + + + + + | Performing | Address | City/State/Zipcode | Phone Number | | Organization | | | | + + + + + | [facility] | [address] | [place] [address] | [phone] | + + + + + Procalcitonin (10/09/2019 5:10 AM PDT) + + + + + + | Component | Value | Ref Range | Performed | Pathologist | | | | | At | Signature | + + + + + + | PROCALCITON | 0.65 (H)Comment: | <0.5 ng/mL | [facility] | | | IN | INTERPRETIVE [...] | | | | | | at [facility];[address] [place] [address] | | | | | | [facility];[place] [address] | | | | + + + + + + + + | Specimen | + + | Blood | + + + + + + + | Performing | Address | City/State/Zipcode | Phone Number | | Organization | | | | + + + + + | [facility] | [address] | [place] [address] | [phone] | + + + + + POC Glucose (10/09/2019 12:47 AM PDT) + + + + + + | Component | Value | Ref Range | Performed | Pathologist | | | | | At | Signature | + + + + + + | Glucose, | 128 (H)Comment: Testing | 65 - 99 mg/dL | [facility] | | | POC | performed at [facility];[address] | | LABORATORY | | | | [address];[place], [place] | | | | | | [address] | | | | + + + + + + + + | Specimen | + + | | + + + + + + + | Performing | Address | City/State/Zipcode | Phone Number | | Organization | | | | + + + + + | [facility] | [address] | [place] [address] | [phone] | + + + + + PTT [...] [facility] | | | | performed at [facility];[address] | | LABORATORY | | | | [address];[place] | | | | | | [address] | | | | + + + + + + + + | Specimen | + + | Blood | + + + + + + + | Performing | Address | City/State/Zipcode | Phone Number | | Organization | | | | + + + + + | [facility] | [address] | [place] [address] | [phone] | + + + + + POC [...] 7.291 (L) | 7.350 - 7.450 | [facility] | | | Arterial, | | [...] | | | POC | performed at [facility];[address] | g/dL | LABORATORY | | | | [address];[place], [place] | | | | | | [address] | | | | + + + + + + + + | Specimen | + + | | + + + + + + + | Performing | Address | City/State/Zipcode | Phone Number | | Organization | | | | + + + + + | [facility] | [address] | [place] [address] | [phone] | + + + + + Red [...] | INR | 1.3Comment: REFERENCE | | [facility] | | | | RANGE:0.9 - [...] | | | | | performed at [facility];[address] | | | | | | [address];[place], [place] | | | | | | [address] | | | | + + + + + + + + | Specimen | + + | Blood - Artery, | | Radial, Right | + + + + + + + | Performing | Address | City/State/Zipcode | Phone Number | | Organization | | | | + + + + + | [facility] | [address] | [place] [address] | [phone] | + + + + + Surgical [...] | including foreign body giant cell reaction. AMB:[facility]:C2NR MICROSCOPIC | | | EXAMINATION:Histologic sections [...] attached red-white | | | fibromembranous tissue. Shadowgraph Scale Operator sections are submitted in | | | laith (A1).COLTEN (under the direct supervision of a [...] | LABORATORY:The technical component was performed by [facility] | | | [facility], [address] [place] [address] (Fiber Technologist: | | | Asia Rodriguez MD; CLIA# [id number]).Professional interpretation was | | | performed by [facility] | | | [place] [address] (Fiber Technologist: Solitario | | | Jacky Recio; CLIA#: [id number]). Diagnostician: Asia Rodriguez | | | MDPathologistElectronically Signed 10/10/2019 | | | | | |PERFORMING LABORATORY: | | |The technical component was performed by [facility], [address] [place] [address] (Fiber Technologist: Asia Rodriguez MD; CLIA# [id number]). | | |Professional interpretation [facility], [address] [place] [address] (Fiber Technologist: Solitario Recio M.D.; CLIA#: [id number]). | | | | | |Diagnostician: Asia [...] Authorizing provider: Rudolph Lowery | | | MD Please see intraoperative grid for any [...] | + + | [facility], [id number] - 10/04/2019 12:10 PM PDT | | [...] + + | Performing | Address | City/State/[facility] Centercode | Phone Number | | Organization [...] [facility] | | | | performed at [facility] | | LABORATORY | | | | [address];[place] | | | | | | [address] | | | | + + + + + + + + | Specimen | + + | Tissue - Both | | anterior nares (body | | structure) | + + + + + + + | Performing | Address | City/State/Zipcode | Phone Number | | Organization | | | | + + + + + | [facility] | [address] | [place] [address] | [phone] | + + + + + Lipid [...] | | | Calculated | performed at [facility], [address] | | LABORATORY | | | | [address], | | | | | | [place] [address] | | | | + + + + + + + + | Specimen | + + | Blood | + + + + + + + | Performing | Address | City/State/Zipcode | Phone Number | | Organization | | | | + + + + + | [facility] | [address] | [place] [address] | [phone] | + + + + + Uric Acid (10/04/2019 4:26 AM PDT) + + + + + + | Component | Value | Ref Range | Performed | Pathologist | | | | | At | Signature | + + + + + + | Uric Acid | 3.2Comment: Testing | 3.2 - 8.6 mg/dL | [facility] | | | | performed at [facility], [address] | | LABORATORY | | | | [address], | | | | | | [place] [address] | | | | + + + + + + + + | Specimen | + + | Blood | + + + + + + + | Performing | Address | City/State/Zipcode | Phone Number | | Organization | | | | + + + + + | [facility] | [address] | [place] [address] | [phone] | + + + + + Coronavirus [...] | | | | | performed at [facility] | | | | | | [address];[place], [place] | | | | | | [address] | | | | + + + + + + + + | Specimen | + + | Tissue - Entire | | nasopharynx (body | | structure) | + + + + + + + | Performing | Address | City/State/Zipcode | Phone Number | | Organization | | | | + + + + + | [facility] | [address] | [place] [address] | [phone] | + + + + + ECG [...] | | | | ELLA HART MD ([id number]) | | | | | | on [...] from Last 3 Months Insurance + +--------+ +--------+-------+---------+--------+ | Payer | Benefi | Subscriber | Effect | Phone | Address | Type | | | t Plan | ID | lance | | | | | | / | | Dates | | | | | | Group | | | | | | + +--------+ +--------+-------+---------+--------+ | [employer] [place] | [id number] | 10/04/19 | | | Indemn | | | COMMUN | | 20-Pre | | | ity | | | ITY | | sent | | | | | | CARE | | | | | | + +--------+ +--------+-------+---------+--------+ | [employer] | [place] | [id number] | | | | Indemn | | | NS | | 009-Pr | | | ity | | | ADMIN | | esent | | | | | | [place] | | | | | | | | [place] | | | | | | + +--------+ +--------+-------+---------+--------+ + +--------+ +--------+ + + | Guarantor [...] Mike | | | al/Fam | | 1960 | [phone] | [address] | | | [place] | | | [address] (Home) | [place] [address] | + +--------+ +--------+ + + Advance Directives + + + + + | Type | Date Recorded | Patient | Explanation | | | | Shadowgraph Scale Operator | | + + + + + | Power of | | | | | Tanning Consultant | | | | + + + [...]
--- OUTSIDE RECORDS SUMMARY | ~2019-10-23 | XMS | Encounter Summary ---
Demographics + + + | Address | [address] | | | [place] [address] | + + + | Home Phone [...] + + | Author | [facility] | + + + | Organization | [facility] | + + + | Address | Unknown | + + + | Phone | Unavailable | + + + Support + + +---------+ + | Name | Relationship | Address | Phone | + + +---------+ + | Lele Conley | ECON | Unknown | | + + +---------+ + Care Team Providers + +------+ + | Care Train Gate Attendant Name | Role | Phone | + [...] [address] | | | | | | [place], [place] | | | | | | [address] | | | +--------+ + + + [...]
--- OUTSIDE RECORDS SUMMARY | ~2019-10-23 | XMS | Encounter Summary ---
Demographics + + + | Address | [address] | | | [place] [address] | + + + | Home Phone [...] Team Providers + +------+ + | Care Training Director Name | Role | Phone | + [...] + + | 10/06/ | Anesthesia | [facility] | Rudolph Lowery | | | 2020 | [facility] | MD [address] | | | | | OPER[address] RO[address] | [address] | | | | | ANTHONY MENDEZ | [place] [address] | | | | | [place], [place] | [phone] | | | | | [address] | | | | | | [phone] | | | +--------+ + + + + Anesthesia Record + + + + + | Procedure Name | Responsible | Anesthesia Start | Anesthesia Stop Time | | | Anesthesiologist | Time | | + + + + + | REPAIR | Rudolph Lowery, | 10/07/19 07 | 10/07/19 1645 | | PSEUDOANEURYSM- | [...] +----+---+ + + | | 0 | [place] | | | | 8 | 43-degrees [...] Wound | 10/07/19; 1615; Incision; | 10/07/19 161 by | | | | Bilateral; groin | Beverley Logan | | | | | HARRISON Flanagan | | +--------+ + + + | Wound | 10/07/19; 1615; Incision; | 10/07/19 161 by | | | | Bilateral; abdomen; right | Beverley Logan | | | | | HARRISON Flanagan | | +--------+ + + + | Periph | 10/06/19; 1856; Right; Posterior | 10/06/191856 by | 10/11/19 0900 by | | eral | (dorsal); Forearm; | Ian Linn RN | Amanda Tim RN | | IV | [id number] catheter system; | | | | | 20 gauge; distraction; IV leaking | | | | | ; 10/11/19; 09 | | | +--------+ + + + | Airway | Placement Date: 10/07/19; | 10/07/19729 by | 10/07/19 1634 by | | | Placement Time: 729 (created via | Rudolph Lowery, | Rudolph Lowery, | | | procedure documentation); Mask [...] | | | | | Removal Time: 1634; Additional | | | | | Comments: No issues with | | | | | intubation. ET tube placed | | | | | atraumatically with preservation | | | | | of oral structures in their | | | | | pre-operative state. | | | +--------+ + + + | Urethr | 10/07/19; 07; indicated due to | 10/07/19 0733 by | 10/09/192337 by | | al | specific surgical [...] use; | | | | | 10/09/19; 2337 | | | +--------+ + + + [...] | 10/07/19; 0753 (created via | 10/07/19 075 by | 10/10/19 0431 by | | [...] IV | Proximal, Medial; Forearm; 18 | | RN | | | gauge; site [...] Llamas RN | | Cecelia | 10/11/19; 0900 (not present upon | [...] EVALUATION Jairo Theodore 59 y.o. male 1960 [id number] Procedure(s) REPAIR PSEUDOANEURYSM- FEMORAL (Right ) Cooperates? [...] Rudolph Lowery MD 10/07/2019 4:54 PM PDT [facility] Lowery MD at 10/06 4:54 PM PDTAnesthesia Procedure Notes - Rudolph Lowery MD - 10/07/2019 8:39 A M PDTAssociated [...] provider: Rudolph Lowery MD Authorizing provider: Rudolph Lowrey MD Comments: No issues with intubation. ET [...] EVALUATION Jairo Theodore 59 y.o. male 1960 [id number] Procedure(s): REPAIR PSEUDOANEURYSM- FEMORAL (Right ) Medical,anesthesia, [...] who presents as a tra nsfer from [facility] ED for pseudoaneurysm of the right groin [...] NOTE Jairo Theodore 59 y.o. male 1960 [id number] REPAIR PSEUDOANEURYSM- FEMORAL (Right ) HANDOFF NOTE [...] Rudolph Lowery MD 10/07/2019 4:45 PM PDT [facility] Rud[facility] Lowery MD at 10/06 [...] RANKIN | | | | | | [id number] | | | | | | | [...] 20 4:07 | | | | | 820 at 0805, Anesthesia | | PM PDT [...]
--- OUTSIDE RECORDS SUMMARY | ~2019-10-23 | XMS | Clinical Summary ---
Demographics + + + | Address | [address] | | | [place] [address] | + + + | Home Phone | | + + + | Preferred Language | Unknown | + + + | Marital Status | Single | + + + | Nondenominational Affiliation | BAP | + + + [...] Team Providers + +------+ + | Care Aquatics Director Name | Role | Phone | + +------+ + | No Pcp Per Patient | PCP | Unavailable | + +------+ + Source Comments [facility] is fully live [facility] both [facility] and [facility] Allergies Not on File Medications + [...] + +--------+ | MEDICARE | MEDICA | [id number] | 04/30/19 | [phone] | [address] | | | RE A & | | 08-Pre | [phone] | [address] | | | [address] | | sent | | [place], [place] | | | | | | | | [address] | | + +--------+ +--------+ + +--------+ | SECURITY ATTENDANT MEDICAID | SECURITY ATTENDANT | [id number] | 10/31/19 | | | [address] | [...] | | | 0 (Home) | [place] [address] | + +--------+ +--------+ + +"
--- OUTSIDE RECORDS SUMMARY | ~2019-10-23 | XMS | Encounter Summary ---
Demographics + + + | Address | [address] | | | [place] [address] | + + + | Home Phone | | + + + | Preferred Language | Unknown | + + + | Marital Status | Single | + + + | Anabaptism Affiliation | BAP | + + + | Race | White | + + + | Ethnic Group | Not or | + + + Author + + + | Author | [facility] [employer] [facility] | + + + | Organization | [facility] | + + + | Address | Unknown | + + + | Phone | Unavailable | + + + Support + + +---------+ + | Name | Relationship | Address | Phone | + + +---------+ + | Lele Conley | ECON | Unknown | | + + +---------+ + Care Team Providers + +------+ + | Care Nurse Epidemiologist Name | Role | Phone | + [...] | | | | | [place], | | | | | | [place] [address] | | | +--------+ + + + [...] Anesthesia PostO p Report Patient: LARRY THEODORE [facility] Rec: [id number] Sex M Bdate: 1960 Date/Time Data Entered Into [facility] Anesth PostOp Surgery Date [id number] 05/02/07 12:07 Anesthesiologist NOEL CASH 05/02/07 12:07 [...] | + + | 05/02/2007 12:07 PM [facility] Anesthesia PostOp Report | | | | Patient: LARRY THEODORE [facility] Rec: [id number] Sex M Bdate: 1960 | | Date/Time Data | | Entered Into [facility] | | Anesth PostOp | | Surgery Date [id number] 05/02/07 12:07 | | Anesthesiologist NOEL CASH 05/02/07 12:07 | | | + + documented in this encounter Visit Diagnoses Not on filedocumented in this encounter"
--- OUTSIDE RECORDS SUMMARY | ~2019-10-23 | XMS | Encounter Summary ---
Demographics + + + | Address | [address] | | | [place] [address] | + + + | Home Phone | | + + + | Preferred Language | Unknown | + + + | Marital Status | Single | + + + | Shinto Affiliation | 1009 | + + + | Race | White | + + + | Ethnic Group | Not or | + + + Author + + + | Author | [facility] | | | and [place] | + + + | Organization | [facility] | | | [...] Team Providers + +------+ + | Care Silver Steward Name | Role | Phone | + [...] + + | 10/07/ | Surgery | [facility] | Magdiel Arteaga MD | THROMBECTOMY / | | 2019 | | [facility] | [address] | EMBOLECTOMY of fem | | | | OPERATING ROOM [address] | [facility] Yoana [facility] | fem bypass | | | | [address] | [place] [address] | | | | | [place], [place] | [phone] | | | | | [address] | | | | | | [phone] | | | +--------+---------+ + + + [...] GRAFT FEMORAL-POPLITEAL (Bilateral) ANGIOGRAM - EXTREMITY BILATERAL (03497) (Bilateral) Chief Complaint: No chief complaint on [...] who was admitted on 10/03/2019 Transfer from [facility] with bilateral hip and pelvic burning [...] have wound check in 2 weeks wit [facility] to provide transportation, continue with aspirin 81 mg daily, Plavix 75 mg daily, atorv astatin 40 mg daily. Active Problems: Alcohol abuse/ Tobacco abuse advised to stop smoking and drinking Cellulitis of right foot has been completely treated with Augmentin while in the hospital Discharge Information: Follow up: Teresita Bob MD [address] [facility] [place] [address] Follow up for Home health Wound Care [facility] [address] [phone] Follow up Wound Care and [...] you recover. Don t drive for at [id number] after your surgery or while you are [...] better overnight Chest pain or trouble breathing Vestiage last reviewed this educational content on 11/29/201819992259-7742 [employer]. [address] [place] [address], [place] [address]. All righ ts reserved. This information is [...] of developing AAA decreases. To learn more Smokefree.gov/vgmf-yi-ws-expert National Cancer [place] Smoking Quitline:095-91C-LYDB (077-478-3719) [employer] last reviewed this educational content on 12/30/201819999869-8754 [employer]. [address] [place] [address], [place] [address]. All righ ts reserved. This information is [...] find a support program: Free national quitline 470-KIFZ-APB (595-889-8039) [facility] quit-smoking programs [employer] [employer] 198-028-0512 [place] [employer] 779-156-3737 Support at home is important too. Family and friends can offer praise and reassurance. If t he smoker in your life finds it hard to quit, encourage them to keep trying. Try kjbq-pno-fphaetg medicine Nicotine replacement therapymay make iteasier to [...] to quit smoking, try these resources: www.cdc.gov/tobacco/quit_smoking/ 342-CGJY-CPT (358-024-5072) www.smokefree.gov 122-24Q-UYMQ (023-171-1177) www.lung.org/stop-smoking/ 800-LUNGUSA (841-438-8166) Herve lynn reviewed this educational content on 01/29/201919992927-5078 [employer]. [address] [place] [address]. All righ ts reserved. This information is [...] PA- C - 10/16/2019 7:20 AM PDT [facility] Service: Vascular Surgery Progress Note Hospital Day: LOS: 13 days Post-Op Day: 11/06 SUBJECTIVE Patient Summary: The patient is a 59 y.o. male with significant past medical history of tobacco abuse, HTN, CAD, history of alcohol abuse who presented to 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 He unde rwent aortobifemoral bypass in 1999. [...] scan which revealed enlargement of known right FINANCIAL ANALYST ACCOUNTANT pseudoaneurysm. He was transferred to [facility] for evaluation and Vascular was [...] importance of following up with our office customer field representative. Still recommend discharge ho me with assist [...] Code Status: Full Michael Abel PA-C 10/16/2019 unlmalathi, Gerard Chaparro RN - 10/15/2019 6:52 PM PDTA/O, AUGUSTUS removed today, wounds less oozy today, possible d/ c tomorrow Electronically signed by: Nigel Starkey RN 10/15/2019 6:53 PM PDT undo Pack MD - 10/15/2019 10:30 AM PDT . Jairo Theodore [id number] Hospital Day: 12 SUBJECTIVE Events Overnight: Patient [...] right to left femoral to femoral artery [facility] with 8 mm PTFE. Continue with [...] been in touch with his Merrill, Lele [phone] and he did not want me to [...] and management as well as Computerized Physician Scorer Helper. Dictation software, Pharmaxis, used which may contain error for similar sounding words even af ter review. Portions of this chart may have been copied from previous notes for continuity of care. 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 He unde rwent aortobifemoral bypass in 1999. [...] scan which revealed enlargement of known right FINANCIAL ANALYST ACCOUNTANT pseudoaneurysm. He was transferred to [facility] for evaluation and Vascular was [...] swelling. Call with any neurovascular changes. [facility] with management of this patient. Disposition: [...] - 10/14/2019 9:23 AM PDT Jairo Theodore [id number] Hospital Day: 11 SUBJECTIVE Events Overnight: Patient [...] to left femoral to femoral artery gill ss with 8 mm PTFE. Continue with [...] been in touch with his Merrill, Lele [phone] and he did not want me to [...] and management as well as Computerized Physician Scorer Helper. Dictation software, Pharmaxis, used which may contain error for similar sounding words even af ter review. Portions of this chart may have been copied from previous notes for continuity of care. 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 He unde rwent aortobifemoral bypass in 1999. [...] scan which revealed enlargement of known right FINANCIAL ANALYST ACCOUNTANT pseudoaneurysm. He was transferred to 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 He unde rwent aortobifemoral bypass in 1999. [...] scan which revealed enlargement of known right FINANCIAL ANALYST ACCOUNTANT pseudoaneurysm. He was transferred to [facility] for evaluation and Vascular was [...] be different from t wyatt original. Jairo Covarrubiases [id number] Hospital Day: 10 SUBJECTIVE Events Overnight: Patient [...] right to left femoral to femoral [facility] with 8 mm PTFE. Continue with [...] been in touch with his Merrill, Lele [phone] and he did not want me to [...] and management as well as Computerized Physician Scorer Helper. Dictation software, Pharmaxis, used which may contain error for similar [...] different from the orig inal. Jairo Theodore [id number] Hospital Day: 9 SUBJECTIVE Events Overnight: Patient [...] right to left femoral to femoral [facility] with 8 mm PTFE. Continue with [...] been in touch with his Merrill, Lele [phone] and he did not want me to [...] and management as well as Computerized Physician Scorer Helper. Dictation software, Pharmaxis, used which may contain error for similar sounding words even af ter review. Portions of this chart may have been copied from previous notes for continuity of care. 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 He unde rwent aortobifemoral bypass in 1999. [...] scan which revealed enlargement of known right FINANCIAL ANALYST ACCOUNTANT pseudoaneurysm. He was transferred to [facility] for evaluation and Vascular was [...] Color, UA YELLOW Clarity, Urine CLEAR Specific [place], Urine 1.008 1.002 - 1.030 Leukocyte esterase, [...] BANK. BLOOD BANK COMMENT Testing performed at [facility];[address] [place] [address] Type and Screen Collection Time: 10/12/19 7:52 AM Result Value Ref Range ABO Rh A POSITIVE Antibody Screen NEGATIVE BB BAND [id number] BB BAND Testing performed at [facility];[address] [place] [address] UNIT # [id number] Product Code LEUKODEPLETED PC Unit Division 00 Unit Status ALLOCATED Transfusion Status OK TO TRANSFUSE CROSSMATCH RESULT COMPATIBLE UNIT # [id number] Product Code LEUKODEPLETED PC Unit Division 00 [...] different from the origina l. Jairo Theodore [id number] Hospital Day: 8 SUBJECTIVE Events Overnight: Patient [...] right to left femoral to femoral [facility] with 8 mm PTFE. Continue with [...] been in touch with his Merrill, Lele [phone] and he did not want me to [...] and management as well as Computerized Physician Scorer Helper. Dictation software, Pharmaxis, used which may contain error for similar sounding words even af ter review. Portions of this chart may have been copied from previous notes for continuity of care. 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 He unde rwent aortobifemoral bypass in 1999. [...] scan which revealed enlargement of known right FINANCIAL ANALYST ACCOUNTANT pseudoaneurysm. He was transferred to [facility] for evaluation and Vascular was [...] any rest pain in either leg. H yoana denies any pain in his left leg [...] Arteaga PA-C 10/11/2019 Rachel Trinidad [facility] - 10/10/2019 11:59 AM PDTFormatting of [...] PO medications. 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 He unde rwent aortobifemoral bypass in 1999. [...] scan which revealed enlargement of known right FINANCIAL ANALYST ACCOUNTANT pseudoaneurysm. He was transferred to [facility] for evaluation and Vascular was [...] might be different from the or iginal. [facility] Service: Sampler And Test Preparer Progress Note Jairo Theodore 59 [facility].o. Hospital [...] procedures. Tyler Elias MD 10/10/2019 Dictation software, Pharmaxis, was used which may contain error with similar sound words even after review. Portions of this chart may have been copied from previous notes for continuity of care. Daniella Arias RN - 10/09/2019 10:20 AM PDTFamily/ neurocritical care physician updated by pt. 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 He unde rwent aortobifemoral bypass in 1999. [...] scan which revealed enlargement of known right FINANCIAL ANALYST ACCOUNTANT pseudoaneurysm. He was transferred to [facility] for evaluation and Vascular was [...] Results (from the past 24 hour(s)) POC ISPHANIT, CG8, Arterial Collection Time: 10/08/19 1:22 PM [...] plan. Magdiel Arteaga MD Vascular Surgery Julian rG MD - 10/09/2019 1:28 AM PDT [facility] Service: Sampler And Test Preparer Progress Note Jairo Theodore 59 y.o. Hospital [...] procedures. Julian Gr MD 10/09/2019 Dictation software, Pharmaxis, was used which may contain error with [...] by vascular surgery. R eport given to DIRECTOR GRAPHICS. Pt safely transferred to room 76453. Incisions and dressings were teresa an and dry. Post tib and pedal pulses dopplerable. JADA SHINE RN Chyna Rashid MD - 10/08/2019 4:07 PM PDT [facility] Service: Hospitalist Progress Note Hospital Day: [...] endarterectomy, right to left femoral to femoral [facility] on 10/07/19. Patient had an EBL [...] 10/07/19 1710 104/63 100 17 100 % 08/08/20 1705 113/71 100 18 100 % 10/07/19 [...] artery by velocity. Final Report Signed by: aJcky Anderson Timothy Sign Date/Time: 10/04/2019 12:06 PM [...] Rashid MD - 10/07/2019 3:55 PM PDT [facility] Service: Hospitalist Progress Note Hospital Day: [...] A POSITIVE Antibody Screen NEGATIVE BB BAND STRAIGHT KNIFE MACHINE CUTTER 0630 BB BAND Testing performed at [facility];[address] [place] [address];[place] [address] UNIT # [id number] Product Code LEUKODEPLETED PC Unit Division 00 Unit Status ISSUED Transfusion Status OK TO TRANSFUSE CROSSMATCH RESULT COMPATIBLE UNIT # [id number] Product Code LEUKODEPLETED PC Unit Division 00 Unit Status ISSUED Transfusion Status OK TO TRANSFUSE CROSSMATCH RESULT COMPATIBLE UNIT # [id number] Product Code LEUKODEPLETED PC Unit Division 00 Unit Status ALLOCATED Transfusion Status OK TO TRANSFUSE CROSSMATCH RESULT COMPATIBLE UNIT # [id number] Product Code LEUKODEPLETED PC Unit Division 00 Unit Status ALLOCATED Transfusion Status OK TO TRANSFUSE CROSSMATCH RESULT COMPATIBLE Red Blood Cells (PRBC) - Crossmatch and Hold Result Value Ref Range Product Code RED CELL GROUP Units ordered 2 BLOOD BANK COMMENT ORDER RECEIVED IN BLOOD BANK. BLOOD BANK COMMENT Testing performed at [facility];[address] [place] [address];[place] [address] POC ISTAT, CG8, Arterial Result Value Ref [...] BANK. 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 He unde rwent aortobifemoral bypass in 1999. [...] scan which revealed enlargement of known right FINANCIAL ANALYST ACCOUNTANT pseudoaneurysm. He was transferred to [facility] for evaluation and Vascular was [...] A POSITIVE Antibody Screen NEGATIVE BB BAND STRAIGHT KNIFE MACHINE CUTTER 0630 BB BAND Testing performed at [facility];[address] [place] [address];[place] [address] UNIT # [id number] Product Code LEUKODEPLETED PC Unit Division 00 Unit Status ALLOCATED Transfusion Status OK TO TRANSFUSE CROSSMATCH RESULT COMPATIBLE UNIT # [id number] Product Code LEUKODEPLETED PC Unit Division 00 Unit Status ALLOCATED Transfusion Status OK TO TRANSFUSE CROSSMATCH RESULT COMPATIBLE Red Blood Cells (PRBC) - Crossmatch and Hold Collection Time: 10/07/19 6:30 AM Result Value Ref Range Product Code RED CELL GROUP Units ordered 2 BLOOD BANK COMMENT ORDER RECEIVED IN BLOOD BANK. 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 He unde rwent aortobifemoral bypass in 1999. [...] scan which revealed enlargement of known right FINANCIAL ANALYST ACCOUNTANT pseudoaneurysm. He was transferred to [facility] for evaluation and Vascular was [...] Rashid MD - 10/05/2019 12:14 PM PDT [facility] Service: Hospitalist Progress Note Hospital Day: [...] repair on 10/06/19 NPO tonight Alcohol abuse CILA protocol in place counseled Nicotine abuse On nicotine patch Counseled Elevated BP without prior diagnosis of HTN Suspect undiagnosed HTN Start lisinopril 10mg daily Prn albuterol Hypokalemia Replete per protocol DVT prophylaxis with lovenox Disposition: For discharge once cleared by vascular surgery Code Status: Full Code Chyna Shook MD 10/05/2019 12:14 PM PDT Arlene Crum PA-C - 10/05/2019 8:18 AM PDT [facility] Service: Vascular Surgery Progress Note Hospital Day: [...] as well as enlarging pseudoaneurysm of right 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 He unde rwent aortobifemoral bypass in 1999. [...] scan which revealed enlargement of known right FINANCIAL ANALYST ACCOUNTANT pseudoaneurysm. He was transferred to [facility] for evaluation and Vascular was [...] and open repair for his enlarging right FINANCIAL ANALYST ACCOUNTANT pseudoaneurysm. He will need r etroperitoneal exposure [...] Rashid MD - 10/04/2019 9:15 AM PDT [facility] Service: Hospitalist Progress Note Hospital Day: LOS: 1 day SUBJECTIVE Patient Summary: Mr. Theodore is a 59 yr old man active smoker 1ppday with alcohol abuse, hx of PAD, s/p right aorto bifemoral bypass in 1999 complicated by pseudoaneurysm, s/p revision, was transferred from [place]'s ED for right foot swelling and increasing [...] LYTY 0809 BB BAND Testing performed at [facility];[address] [place] [address];[place] [address] ECG 12 lead Result Value Ref Range [...] might be different from t he original. [facility] Service: Hospitalist Admission History & Physical [...] who p resents as a transfer from [facility] ED for pseudoaneurysm of the right groin and celluli tis of the RLE. Per patient right pseudoaneurysm of the right groin has been getting bigger for at least a year. Right foot swelling for 5 days. Patient reports similar episodes at le ast twice a year but this time it [...] LYTY 0809 BB BAND Testing performed at [facility];[address] [place] [address];[place] [address] ECG 12 lead Result Value Ref Range INTERPRETATION TEXT Not Confirmed IMAGING No orders to display EKG at 2310: NSR, VR 72, Qtc 455. Data from [facility] -Ultrasound impression: 6.3 x 5.1 x [...] delirium tremens, seizures from withdrawals or withdrawals -[facility] protocol initiated Tobacco abuse: -Quit smoking today smoke a pack of cigarettes per day -Nicotine patch Hypokalemia GI and DVT prophylaxis Code Status: Full Code Dictation software, Capigami, used which may contain errors for similar [...] this note might be different from the [facility] Service: Sampler And Test Preparer Initial Consult Note Jairo Theodore 59 y.o. [...] ENDARTERECTOMY FEMORAL; Surgeon: Magdiel Arteaga MD; Location: [facility] MAIN OR FEMORAL-FEMORAL BYPASS GRAFT N/A 10/07/2019 Procedure: BYPASS GRAFT FEMORAL-FEMORAL; Surgeon: Magdiel Arteaga MD; Location: [facility] MAIN OR OTHER SURGICAL HISTORY Right 10/07/2019 Procedure: REPAIR PSEUDOANEURYSM- FEMORAL; Surgeon: Magdiel Arteaga MD; Location: [facility] GABI N OR ALLERGIES Allergies [...] PDTAssociated Order(s): PROVIDER TO PROVIDER CONSUL T [facility] Service: Vascular Surgery Initial Consult Note Date of Admission: 10/03/2019 Date of Consultation: 10/04/2019 Reason for Consultation: Pseudoaneurysm of right FINANCIAL ANALYST ACCOUNTANT Primary Care Physician: No Physician on file [...] as well as enlarging pseudoaneurysm of right 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 He underwent aortobifemoral by pass in 1999. [...] which reveal ed enlargement of known right FINANCIAL ANALYST ACCOUNTANT pseudoaneurysm. He was transferred to [facility] for evaluation and Vascular was [...] sodium chloride 0.9% 100 mL/hr at 10/03/19 2655 PRN Medications acetaminophen, calcium carbonate, LORazepam, melatonin, [...] - The patient was transferr ed to [facility] for evaluation of his enlarging pseudoaneurysm, which has been the same size for the last year he reports. He was evaluated by [place] doctor for his groin mass last year but was lost to any follow up. 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 His C TA with runoff yesterday showed enlarging right femoral pseudoaneurysm. Left FINANCIAL ANALYST ACCOUNTANT shows no in flow but reconstitutes. The patient will require revascularization and open repair for his e nlarging right FINANCIAL ANALYST ACCOUNTANT pseudoaneurysm. He will need retroperitoneal exposure with [...] Current Outpt/Agency/Support Groups: yes Community Agency Name: [facility] Health Disciplines: RN and PT - RN for wound care Equipment Durable Medical Equipment Provider: Home Equipment at Discharge: none Equipment Used at Home: cane, straight, single point Pharmacy Pharmacy/Medication needs: Pt is going to use [facility] Pharm[facility] and will use his Medicare Part D benefits. SENIOR CLINICAL RESEARCH SCIENTIST and Pt called [facility], got him reestablished with the [facility], has not been seen since 2018 . Pt is now assigned to Team Linda Bob. SENIOR CLINICAL RESEARCH SCIENTIST p/c with Rudolph at [facility] Team Linda Bob, states they will be calling Pt for follow up appt and will send referral for outpatient wound care. SENIOR CLINICAL RESEARCH SCIENTIST p/c with Carol at [facility], states she has received [facility] orders in the p ast and will follow up with Dr. Bob's office. SENIOR CLINICAL RESEARCH SCIENTIST provided referral and faxed Home health referral. [...] Bed Mobility Supine to Sit, Level of [place]: modified independent Sit to Supine, Level of [place]: modified independent Safety Issues: decreased use of legs for bridging/pushing Transfers Sit-Stand, Level of [place]: supervised Stand-Sit, Level of [place]: supervised Uga-Ztvar-Xqa, Assistive Device: none Gait Level of [place]: supervised Assistive Device: none Distance (feet): 40 Goals Reflects last filed data and may be from multiple contributors. All Bed Mobility Goal Most Recent Value LTG Status new at 10/09/2019 1108 LTG [place] Level modified independent at 10/09/2019 1108 LTG Assistive Device none at 10/09/2019 1108 All Transfers Goal Most Recent Value LTG Status new at 10/09/2019 1108 LTG [place] Level modified independent at 10/09/2019 1108 LTG Assistive Device 2 wheeled walker (FWW) at 10/09/2019 1108 Gait Goal Most Recent Value LTG Status new at 10/09/2019 1108 LTG [place] Level modified independent at 10/09/2019 1108 LTG Assistive Device 2 wheeled walker (FWW) at 10/09/2019 1108 LTG Distance (feet) 100 at 10/09/2019 1108 Stair Goal Most Recent Value LTG Status new at 10/09/2019 1108 LTG [place] Level modified independent at 10/09/2019 1108 [...] bed rails Supine to Sit, Level of [place]: modified independent Safety Issues: decreased use of legs for bridging/pushing Impairments: ROM decreased, strength decreased Transfers Sit-Stand, Level of [place]: stand by assist, verbal cues required Stand-Sit, Level of [place]: stand by assist, verbal cues required Vsy-Rytzc-Acd, Assistive Device: 2 wheeled walker (FWW), none Toilet, Level of [place]: stand by assist, verbal cues required Toilet, Assistive Device: 2 wheeled walker (FWW), grab bars Gait Gait Comments: antalgic gait with flexed trunk posture and intermittent crouch position Level of [place]: stand by assist, verbal cues required(verbal [...] LTG Status new at 10/09/2019 1108 LTG [place] Level modified independent at 10/09/2019 1108 LTG Assistive Device none at 10/09/2019 1108 All Transfers Goal Most Recent Value LTG Status new at 10/09/2019 1108 LTG [place] Level modified independent at 10/09/2019 1108 LTG Assistive Device 2 wheeled walker (FWW) at 10/09/2019 1108 Gait Goal Most Recent Value LTG Status new at 10/09/2019 1108 LTG [place] Level modified independent at 10/09/2019 1108 LTG Assistive Device 2 wheeled walker (FWW) at 10/09/2019 1108 LTG Distance (feet) 100 at 10/09/2019 1108 Stair Goal Most Recent Value LTG Status new at 10/09/2019 1108 LTG [place] Level modified independent at 10/09/2019 1108 [...] Chart check complete. lan of Care - Sommer, Mundo Logan, PT, DP T - 10/13/2019 10:39 AM [...] Bed Mobility Supine to Sit, Level of [place]: minimal assist (75% patient effort) Transfers Sit-Stand, Level of [place]: minimal assist (75% patient effort) Gait Level of [place]: minimal assist (75% patient effort) Assistive [...] LTG Status new at 10/09/2019 1108 LTG [place] Level modified independent at 10/09/2019 1108 LTG Assistive Device none at 10/09/2019 1108 All Transfers Goal Most Recent Value LTG Status new at 10/09/2019 1108 LTG [place] Level modified independent at 10/09/2019 1108 LTG Assistive Device 2 wheeled walker (FWW) at 10/09/2019 1108 Gait Goal Most Recent Value LTG Status new at 10/09/2019 1108 LTG [place] Level modified independent at 10/09/2019 1108 LTG Assistive Device 2 wheeled walker (FWW) at 10/09/2019 1108 LTG Distance (feet) 100 at 10/09/2019 1108 Stair Goal Most Recent Value LTG Status new at 10/09/2019 1108 LTG [place] Level modified independent at 10/09/2019 1108 [...] participation. Pt with an i ncontinent BM. COMMUNITY ARTIST and PT assisting with mobility and pericare. [...] Transfers Additional Documentation: toilet Sit-Stand, Level of [place]: minimal assist (75% patient effort) Stand-Sit, Level of [place]: minimal assist (75% patient effort) Vps-Whtgg-Fpi, Assistive Device: 2 wheeled walker (FWW) Toilet, Level of [place]: minimal assist (75% patient effort) Toilet, Assistive Device: 2 wheeled walker (FWW) Safety Issues: loses balance backward, weight-shifting ability decreased, step length decre ased, sequencing ability decreased, balance decreased during turns Impairments: ROM decreased, strength decreased, impaired balance Gait Gait Comments: reduced step length BLE, excessive trunk flexion, reduced weight bearing RLE , avoidance COG over HAN Level of [place]: minimal assist (75% patient effort) Assistive Device: 2 wheeled walker (FWW) Distance (feet): 15x2 Goals Reflects last filed data and may be from multiple contributors. All Bed Mobility Goal Most Recent Value LTG Status new at 10/09/2019 1108 LTG [place] Level modified independent at 10/09/2019 1108 LTG Assistive Device none at 10/09/2019 1108 All Transfers Goal Most Recent Value LTG Status new at 10/09/2019 1108 LTG [place] Level modified independent at 10/09/2019 1108 LTG Assistive Device 2 wheeled walker (FWW) at 10/09/2019 1108 Gait Goal Most Recent Value LTG Status new at 10/09/2019 1108 LTG [place] Level modified independent at 10/09/2019 1108 LTG Assistive Device 2 wheeled walker (FWW) at 10/09/2019 1108 LTG Distance (feet) 100 at 10/09/2019 1108 Stair Goal Most Recent Value LTG Status new at 10/09/2019 1108 LTG [place] Level modified independent at 10/09/2019 1108 [...] Recommendations: 2 wheeled walker (FWW), shower chair, bulk plant operator, sock aide, long handled sponge, long [...] ham and cheese snadwhiches since being a the [facility] despite his chart saying he has been [...] bed rails Supine to Sit, Level of [place]: minimal assist (75% patient effort) Sit to Supine, Level of [place]: moderate assist (50% patient effort) Safety Issues: decreased use of legs for bridging/pushing, decreased use of arms for pushin g/pulling Impairments: ROM decreased, strength decreased, postural control impaired, pain Transfers Additional Documentation: sit to/from stand Sit-Stand, Level of [place]: minimal assist (75% patient effort) Stand-Sit, Level of [place]: maximal assist (25% patient effort) Ulj-Bvzkq-Ddr, Assistive Device: 2 wheeled walker (FWW), gait belt Safety Issues: loses balance backward, weight-shifting ability decreased, step length decre ased, sequencing ability decreased, balance decreased during turns Impairments: ROM decreased, strength decreased, impaired balance ROM Comments: WFL Strength Comments: WFL. B log handling equipment operator strength 4/5. B UE MMT 4/5 except for biceps 3+/5 Balance Sitting Balance: Static: good balance Sitting Balance: Dynamic: good balance Standing Balance: Static: poor balance Standing Balance: Dynamic: poor balance Goals Reflects last filed data and may be from multiple contributors. LB Dressing Goal Most Recent Value LTG Status new at 10/10/2019 1545 LTG [place] Level minimum assist (75% patient effort), set up required at 10/10/2019 1545 LTG Adaptive Equipment bulk plant operator, sock-aid at 10/10/2019 1545 Toilet Transfer Goal Most Recent Value LTG Status new at 10/10/2019 1545 LTG [place] Level minimum assist (75% patient effort) [...] Briggs 10/10/2019 12:08 PM PDT lan of Mundo Andersen MD - 10/10/2019 12:04 PM PDTPatient seen and examined briefly as day progress note has been made, at bedside in ICU on turnover by bulk plant operator. Patient stat es he feels better, no headache, no dizziness no faintness, blood pressures and vital signs have been stable no fever. We will continue present course of treatments, and will continue to follow closely. lan of Makenzie Scanlon PT - 10/10/2019 11:13 AM PDTFormatting of [...] bed rails Supine to Sit, Level of [place]: minimal assist (75% patient effort) Transfers Bed-Chair, Level of [place]: minimal assist (75% patient effort) Zvk-Qwtrh-Xob, Assistive Device: 2 wheeled walker (FWW), gait belt Sit-Stand, Level of [place]: minimal assist (75% patient effort), stand by assist Stand-Sit, Level of [place]: minimal assist (75% patient effort), stand by assist Gait Gait Comments: reduced step length BLE, excessive trunk flexion, reduced weight bearing RLE , avoidance COG over HAN Level of [place]: minimal assist (75% patient effort), verbal [...] LTG Status new at 10/09/2019 1108 LTG [place] Level modified independent at 10/09/2019 1108 LTG Assistive Device none at 10/09/2019 1108 All Transfers Goal Most Recent Value LTG Status new at 10/09/2019 1108 LTG [place] Level modified independent at 10/09/2019 1108 LTG Assistive Device 2 wheeled walker (FWW) at 10/09/2019 1108 Gait Goal Most Recent Value LTG Status new at 10/09/2019 1108 LTG [place] Level modified independent at 10/09/2019 1108 LTG Assistive Device 2 wheeled walker (FWW) at 10/09/2019 1108 LTG Distance (feet) 100 at 10/09/2019 1108 Stair Goal Most Recent Value LTG Status new at 10/09/2019 1108 LTG [place] Level modified independent at 10/09/2019 1108 [...] Family Contact Information: Name: Lele Conley (Roommate) Fimavmzfiloysy signed by PORTILLO Varner at 10/10/2019 10:13 [...] HOB elevated Supine to Sit, Level of [place]: maximal assist (25% patient effort) Safety Issues: decreased use of legs for bridging/pushing, impaired trunk control for bed m obility Impairments: pain, strength decreased, ROM decreased Transfers Additional Documentation: sit to/from stand, bed to/from chair Bed-Chair, Level of [place]: moderate assist (50% patient effort) Fxv-Gchus-Nsf, Assistive Device: 2 wheeled walker (FWW) Sit-Stand, Level of [place]: minimal assist (75% patient effort) Stand-Sit, Level of [place]: minimal assist (75% patient effort) Xfj-Sztwm-Brz, Assistive Device: 2 wheeled walker (FWW) Safety [...] LTG Status new at 10/09/2019 1108 LTG [place] Level modified independent at 10/09/2019 1108 LTG Assistive Device none at 10/09/2019 1108 All Transfers Goal Most Recent Value LTG Status new at 10/09/2019 1108 LTG [place] Level modified independent at 10/09/2019 1108 LTG Assistive Device 2 wheeled walker (FWW) at 10/09/2019 1108 Gait Goal Most Recent Value LTG Status new at 10/09/2019 1108 LTG [place] Level modified independent at 10/09/2019 1108 LTG Assistive Device 2 wheeled walker (FWW) at 10/09/2019 1108 LTG Distance (feet) 100 at 10/09/2019 1108 Stair Goal Most Recent Value LTG Status new at 10/09/2019 1108 LTG [place] Level modified independent at 10/09/2019 1108 [...] 1.7 Estimated Energy Needs Energy Calorie Requirements: 6606-4450(28-32 kcal/kg per 54.3 kg admit wt ) [...] Ongoing, progressing Flowsheets (Taken 10/09/2019 1024) Participants: rn case management dietitian/nutrition services advanced practice nurse [...] started on clear liquid diet. lan of [facility] - Viv Santos MSW - 10/09/2019 9:44 AM PDTAttended morning rounds. Pt transferred to ICU post -op for repair of thrombosed fem-fem artery bypass. Progressing. Await PT to cecil tinajero. Has no PCP per CM note and FS. Insurance is [facility]. lan of [facility] Urszula Chaudhary RN - 10/09/2019 8:02 AM [...] tolerate turns related to having p ain. Usrzula RN. reatme nt Plan - Amanda Tim [...] 10/08/2019 2:31 PM PDT BRIEF OPERATIVE NOTE [facility] Pt. Name/Age/: Jairo Theodore 59 y.o. 1960 Med. Record Number: [id number] Date of admission: 10/03/2019 Date of Operation/Procedure: [...] disease (HCC) [I73.9] Surgeon: Magdiel Arteaga MD English Horn Player: Maicol Abel PA-C Anesthesia Provider(s): Anesthesiologist: Orlando Ambriz DO BLACK TOP PAVER OPERATOR: Som Garcai CRNA Anesthesia Type: Anesthesia type not filed in the log. Procedure(s): THROMBECTOMY / EMBOLECTOMY of fem fem bypass BILATERAL BYPASS GRAFT FEMORAL-POPLITEAL WITH 6 MM PTFE ANGIOGRAM - EXTREMITY BILATERAL (90380) Operative Findings: Thrombosed femoral to femoral artery [...] Implant Name Type Inv. Item Serial No. Assembler Unit Lot No. LRB No. Used Action GRAFT VAS PROPATEN 6-80MM - [id number] Graft GRAFT VAS PROPATEN 6-80MM [id number] [facility] NA N/A 1 Implanted GRAFT VAS PROPATEN 6-80MM - [id number] Graft GRAFT VAS PROPATEN 6-80MM [id number] [facility] NA N/A 1 Implanted Counts: Instrument, sponge, and needle counts were correct prior to closure and at the con clusion of the case. Complications: None Disposition: The patient was taken to PACU Immediate Post-Operative Condition: Stable Electronically signed by: Magdiel Arteaga MD, 10/08/2019, 2:31 PM PDT p Note - Magdiel Arteaga MD - 10/08/2019 10 :06 AM PDT [facility] OPERATIVE REPORT PATIENT NAME: Jairo [...] the femorofemoral bypass. Using 2 CV 6 [place]-Jamie sutures the 6 mm bypass was anastomos [...] astomosis was created with 2 CV 6 [place]-Jamie sutures. Prior to completing the anastomosis the [...] an antibiotic solution. Hemostasis was achieved. 7 Lao drains were placed in both groins and [...] Magdiel Arteaga MD Vascular Surgery Dictation software, Pharmaxis, used which may contain error for similar sounding words even af ter review. Personal communication requested for any clarification. Electronically signed by: Magdiel Arteaga MD, 10/09/2019 10:06 AM PDT [facility] lan of Care - Aggie Hayden [...] 110-120s. Laguerre UO 500ml. Aggie Hayden RN itlaly Note - Edgardo Arteaga MD - 10/07/2019 7:00 PM PDT [facility] OPERATIVE REPORT PATIENT NAME: Jairo [...] vanced a wire and placed a 7 Lao sheath. We again attempted to select out [...] femoral endarterectomy was performed w ith a Hunt elevator. There was good backbleeding from the [...] common femoral endarterectomy was performed using the Hunt elevator. After performing the endarterect carlyle there [...] copiously irrigated. There was good hemostasis. 7 Lao flat AUGUSTUS drains were placed in both [...] Magdiel Arteaga MD Vascular Surgery Dictation software, Pharmaxis, used which may contain error for similar sounding words even af ter review. Personal communication requested for any clarification. Electronically signed by: Magdiel Arteaga MD, 10/09/2019 9:28 AM PDT [facility] rief Op Note - Magdiel Arteaga MD - 10/07/2019 4:30 PM PDTFormatting of this note might be different from the or iginal. BRIEF OPERATIVE NOTE [facility] Pt. Name/Age/: Jairo Theodore 59 y.o. 1960 Med. Record Number: [id number] Date of admission: 10/03/2019 Date of Operation/Procedure: 10/07/2019 Preoperative Diagnosis: 1. Large right groin pseudoaneurysm 2. Peripheral arterial disease Postoperative Diagnosis: * Pseudoaneurysm (HCC) [I72.9] Surgeon: Magdiel Arteaga MD English Horn Player: Maicol Abel PA-C Anesthesia Provider(s): Anesthesiologist: Rudolph Lowery MD BLACK TOP PAVER OPERATOR: Neville Rush CRNA Anesthesia Type: General [...] fem Tissue Leg, Right SURGICAL PATHOLOGY EXAM Sherry Marrufo 10/07/2019 1427 Implants: Implant Name Type Inv. Item Serial No. Assembler Unit Lot No. LRB No. Used Action GRAFT GORE PROPATEN [id number] - [id number] Graft GRAFT GORE PROPATEN [id number] [employer] - WLGO NA Right 1 Implanted GRAFT HEMGRD KNIT [id number] - [id number] Graft GRAFT HEMGRD KNIT [id number] [employer] - MAQU [id number] Right 1 Implanted [...] VSS with one SBP in 170s recheck [id number]. Report given to preop nurse and 0600IVPB [...] Notes: Pt resides with his friend in [place]. 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 Pt scheduled for pseudoaneurysm repair on 10/04. [...] BUN 7* CREA 0.60* Estimated Energy Needs 5840-9203 kcal/day (28-32 kcal/kg per 54.3 kg admit [...] | | | | | [place] | | | | | | [address] [...] Expected: | | | | e | ([facility]) right aorto | 10/23/2019, Expires: | | | | | femoral bypass | 10/15/2020 | + +---------+--------+ + + | CBC w/ Auto | Lab | Routin | Pseudoaneurysm | Expected: | | Differential | | e | ([facility]) right aorto | 10/23/2019, Expires: | | | | | femoral bypass | 10/15/2020 | + +---------+--------+ + + | Phosphorus | Lab | Routin | Pseudoaneurysm | 1 Occurrences | | | | e | ([facility]) right aorto | starting 10/16/2019 | [...] Expected: | | | | e | ([facility]) right aorto | 10/23/2019, Expires: | [...] | Health | Referral | e | ([facility]) right aorto | | | | | | femoral bypass | | | | | | Cellulitis of right | | | | | | foot 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 ([facility]) | | | | | | [...] + +--------+ + + + | POC ISTASerenity, CG8, | Routin | 10/08/2019 | | [...] [facility]) Peripheral | | | ([address]177) | | PDT | arterial disease | [...] +--------+ + + + | POC ISLILLIE, SCOTT8, | Routin | 10/07/2019 | | Results for this | | ARTERIAL | e | 10:47 AM | | procedure are in the | | | | PDT | | results section. | + +--------+ + + + | POC ASPENSCOTT MOREIRA8, | Routin | 10/07/2019 | | Results [...] LABORATORY | | | | performed at [facility], [address] | | | | | [address], | | | | | | [place] [address] | | | | + + + + + + + + | Specimen | + + | Blood | + + + + + + + | Performing | Address | City/State/Zipcode | Phone Number | | Organization | | | | + + + + + | [facility] | [address] | [place] [address] | [phone] | + + + + + Magnesium (10/16/2019 5:11 AM PDT) + + + + + + | Component | Value | Ref Range | Performed | Pathologist | | | | | At | Signature | + + + + + + | Magnesium | 1.7Comment: Testing | 1.7 - 2.4 mg/dL | KT | | | | performed at [facility];[address] | | LABORATORY | | | | [address];[place], [place] | | | | | | [address] | | | | + + + + + + + + | Specimen | + + | Blood | + + + + + + + | Performing | Address | City/State/Zipcode | Phone Number | | Organization | | | | + + + + + | [facility] | [address] | [place] [address] | [phone] | + + + + + Potassium (10/16/2019 5:11 AM PDT) + + + + + + | Component | Value | Ref Range | Performed | Pathologist | | | | | At | Signature | + + + + + + | K | 3.0 (L)Comment: Testing | 3.5 - 4.9 | [facility] | | | | performed at [facility];[address] | mmol/L | LABORATORY | | | | [address];[place] | | | | | | [address] | | | | + + + + + + + + | Specimen | + + | Blood | + + + + + + + | Performing | Address | City/State/Zipcode | Phone Number | | Organization | | | | + + + + + | [facility] | [address] | [place] [address] | [phone] | + + + + + CBC [...] LABORATORY | | | | performed at [facility], [address] | | | | | [address], | | | | | | [place] [address] | | | | + + + + + + + + | Specimen | + + | Blood | + + + + + + + | Performing | Address | City/State/Zipcode | Phone Number | | Organization | | | | + + + + + | [facility] | [address] | [place] [address] | [phone] | + + + + + Magnesium (10/15/2019 5:13 AM PDT) + + + + + + | Component | Value | Ref Range | Performed | Pathologist | | | | | At | Signature | + + + + + + | Magnesium | 1.9Comment: Testing | 1.7 - 2.4 mg/dL | [facility] | | | | performed at [facility];[address] | | LABORATORY | | | | [address];[place], [place] | | | | | | [address] | | | | + + + + + + + + | Specimen | + + | Blood | + + + + + + + | Performing | Address | City/State/Zipcode | Phone Number | | Organization | | | | + + + + + | [facility] | [address] | [place] [address] | [phone] | + + + + + Basic [...] | >60Comment: GFR <60: | >60 | [facility] | | | GFR | [...] | | | | | performed at [facility], [address] | | | | | | [facility], | | | | | | [place] [address] | | | | + + + + + + + + | Specimen | + + | Blood | + + + + + + + | Performing | Address | City/State/Zipcode | Phone Number | | Organization | | | | + + + + + | [facility] | [address] | [place] [address] | [phone] | + + + + + Potassium (10/14/2019 3:28 PM PDT) + + + + + + | Component | Value | Ref Range | Performed | Pathologist | | | | | At | Signature | + + + + + + | K | 3.3 (L)Comment: Testing | 3.5 - 4.9 | [facility] | | | | performed at [facility];[address] | mmol/L | LABORATORY | | | | [address];[place] | | | | | | [address] | | | | + + + + + + + + | Specimen | + + | Blood | + + + + + + + | Performing | Address | City/State/Zipcode | Phone Number | | Organization | | | | + + + + + | [facility] | [address] | [place] [address] | [phone] | + + + + + Magnesium (10/14/2019 3:28 PM PDT) + + + + + + | Component | Value | Ref Range | Performed | Pathologist | | | | | At | Signature | + + + + + + | Magnesium | 2.1Comment: Testing | 1.7 - 2.4 mg/dL | [facility] | | | | performed at [facility];[address] | | LABORATORY | | | | [address];[place] | | | | | | [address] | | | | + + + + + + + + | Specimen | + + | Blood | + + + + + + + | Performing | Address | City/State/Zipcode | Phone Number | | Organization | | | | + + + + + | [facility] | [address] | [place] [address] | [phone] | + + + + + Phosphorus (10/14/2019 3:28 PM PDT) + + + + + + | Component | Value | Ref Range | Performed | Pathologist | | | | | At | Signature | + + + + + + | Phosphorus | 1.3 (L)Comment: Testing | 2.3 - 4.8 mg/dL | [facility] | | | | performed at [facility];[address] | | LABORATORY | | | | [address];[place], [place] | | | | | | [address] | | | | + + + + + + + + | Specimen | + + | Blood | + + + + + + + | Performing | Address | City/State/Zipcode | Phone Number | | Organization | | | | + + + + + | [facility] | [address] | [place] [address] | [phone] | + + + + + CBC no Differential (10/14/2019 5:49 AM PDT) + + + + + + | Component | Value | Ref Range | Performed | Pathologist | | | | | At | Signature | + + + + + + | WBC | 12.21 (H) | 3.80 - 11.00 | [facility] | | | | | K/uL | [...] LABORATORY | | | | performed at [facility], [address] | | | | | [address], | | | | | | [place] [address] | | | | + + + + + + + + | Specimen | + + | Blood | + + + + + + + | Performing | Address | City/State/Zipcode | Phone Number | | Organization | | | | + + + + + | [facility] | [address] | [place] [address] | [phone] | + + + + + Magnesium (10/14/2019 5:49 AM PDT) + + + + + + | Component | Value | Ref Range | Performed | Pathologist | | | | | At | Signature | + + + + + + | Magnesium | 1.6 (L)Comment: Testing | 1.7 - 2.4 mg/dL | [facility] | | | | performed at [facility];[address] | | LABORATORY | | | | [address];[place], [place] | | | | | | [address] | | | | + + + + + + + + | Specimen | + + | Blood | + + + + + + + | Performing | Address | City/State/Zipcode | Phone Number | | Organization | | | | + + + + + | [facility] | [address] | [place] [address] | [phone] | + + + + + Basic [...] | | | | | | [facility]D [facility] traceable | | | | | | equation.Testing | | | | | | performed at [facility], [address] | | | | | | [facility], | | | | | | [place] [address] | | | | + + + + + + + + | Specimen | + + | Blood | + + + + + + + | Performing | Address | City/State/Zipcode | Phone Number | | Organization | | | | + + + + + | [facility] | [address] | [place] [address] | [phone] | + + + + + Potassium (10/13/2019 11:07 AM PDT) + + + + + + | Component | Value | Ref Range | Performed | Pathologist | | | | | At | Signature | + + + + + + | K | 3.5Comment: Testing | 3.5 - 4.9 | [facility] | | | | performed at [facility];[address] | mmol/L | LABORATORY | | | | [facility];[place], [place] | | | | | | [address] | | | | + + + + + + + + | Specimen | + + | Blood | + + + + + + + | Performing | Address | City/State/Zipcode | Phone Number | | Organization | | | | + + + + + | [facility] | [address] | [place] [address] | [phone] | + + + + + Potassium (10/13/2019 4:37 AM PDT) + + + + + + | Component | Value | Ref Range | Performed | Pathologist | | | | | At | Signature | + + + + + + | K | 3.5Comment: Testing | 3.5 - 4.9 | [facility] | | | | performed at [facility];[address] | mmol/L | LABORATORY | | | | [address];[place] | | | | | | [address] | | | | + + + + + + + + | Specimen | + + | Blood | + + + + + + + | Performing | Address | City/State/Zipcode | Phone Number | | Organization | | | | + + + + + | [facility] [facility] | [address] | [place] [address] | [phone] | + + + + + Magnesium (10/13/2019 4:37 AM PDT) + + + + + + | Component | Value | Ref Range | Performed | Pathologist | | | | | At | Signature | + + + + + + | Magnesium | 1.7Comment: Testing | 1.7 - 2.4 mg/dL | KT | | | | performed at [facility];[address] | | LABORATORY | | | | [address];[place] | | | | | | [address] | | | | + + + + + + + + | Specimen | + + | Blood | + + + + + + + | Performing | Address | City/State/Zipcode | Phone Number | | Organization | | | | + + + + + | [facility] | [address] | [place] [address] | [phone] | + + + + + Basic [...] | | | | | performed at [facility];888 | | | | | | [facility];[place], [place] | | | | | | [address] | | | | + + + + + + + + | Specimen | + + | Blood | + + + + + + + | Performing | Address | City/State/Zipcode | Phone Number | | Organization | | | | + + + + + | [facility] | [address] [facility] | [place] [address] | [phone] | + + + + + Hemoglobin [...] [facility] | | | | performed at [facility];888 | | LABORATORY | | | | [address];[place] | | | | | | [address] | | | | + + + + + + + + | Specimen | + + | Blood | + + + + + + + | Performing | Address | City/State/Zipcode | Phone Number | | Organization | | | | + + + + + | [facility] | [address] | [place] [address] | [phone] | + + + + + Potassium (10/12/2019 4:28 PM PDT) + + + + + + | Component | Value | Ref Range | Performed | Pathologist | | | | | At | Signature | + + + + + + | K | 3.3 (L)Comment: Testing | 3.5 - 4.9 | [facility] | | | | performed at [facility];888 | mmol/L | LABORATORY | [...] + + + + + | [facility] | [address] | [place] [address] | [phone] | + + + + + Clostridium [...] at | | | | | | [facility];[address] [place] [address] | | | | | | Blvd;[place] [address] | | | | + + + + + + + + | Specimen | + + | Stool - Stool | | specimen (specimen) | + + + + + + + | Performing | Address | City/State/Zipcode | Phone Number | | Organization | | | | + + + + + | [facility] | [address] | [place] [address] | [phone] | + + + + + Potassium (10/12/2019 11:02 AM PDT) + + + + + + | Component | Value | Ref Range | Performed | Pathologist | | | | | At | Signature | + + + + + + | K | 3.3 (L)Comment: Testing | 3.5 - 4.9 | [facility] | | | | performed at [facility];888 | mmol/L | LABORATORY | | | | [address];[place] | | | | | | [address] | | | | + + + + + + + + | Specimen | + + | Blood | + + + + + + + | Performing | Address | City/State/Zipcode | Phone Number | | Organization | | | | + + + + + | [facility] | [address] | [place] [address] | [phone] | + + + + + Type [...] + + + | BB BAND | [id number] | | [facility] | | | | | | LABORATORY | | + + + + + + | UNIT # | [id number] | | [facility] | | | | [...] | | | RESULT | performed at [facility] | | LABORATORY | | | | [address];[place], [place] | | | | | | [address] | | | | + + + + + + | UNIT # | [id number] | | [facility] | | | | [...] + + + + + | [facility] | [address] | [place] [address] | [phone] | + + + + + Red [...] | [facility] | | | COMMENT | [facility];[address] | | LABORATORY | | | | [address];[place] [address] | | | | + + + + + + + + | Specimen | + + | | + + + + + + + | Performing | Address | City/State/Zipcode | Phone Number | | Organization | | | | + + + + + | [facility] | [address] | [place] [address] | [phone] | + + + + + Magnesium (10/12/2019 4:08 AM PDT) + + + + + + | Component | Value | Ref Range | Performed | Pathologist | | | | | At | Signature | + + + + + + | Magnesium | 1.9Comment: Testing | 1.7 - 2.4 mg/dL | [facility] | | | | performed at [facility];[address] | | LABORATORY | | | | [address];[place] | | | | | | [address] | | | | + + + + + + + + | Specimen | + + | Blood | + + + + + + + | Performing | Address | City/State/Zipcode | Phone Number | | Organization | | | | + + + + + | [facility] | [address] | [place] [address] | [phone] | + + + + + Comprehensive [...] 37 | 10 - 65 U/L | [facility] | | | | | | LABORATORY | | + + + + + + | Estimated | >60Comment: GFR <60: | >60 | [facility] | | | GFR | [...] | | | | | performed at [facility];88 | | | | | | [facility];[place], [place] | | | | | | [address] | | | | + + + + + + + + | Specimen | + + | Blood | + + + + + + + | Performing | Address | City/State/Zipcode | Phone Number | | Organization | | | | + + + + + | [facility] | [address] | [place] [address] | [phone] | + + + + + CBC [...] | [facility] | | | | NURSING [id number] | g/dL | LABORATORY | | [...] | [facility] | | | | NURSING [id number] | | LABORATORY | | | | [...] LABORATORY | | | | performed at [facility];[address] | | | | | | [address];[place] | | | | | | [address] | | | | + + + + + + + + | Specimen | + + | Blood | + + + + + + + | Performing | Address | City/State/Zipcode | Phone Number | | Organization | | | | + + + + + | [facility] | [address] | [place] [address] | [phone] | + + + + + Urinalysis [...] - 1.030 | [facility] | | | [place], | | | LABORATORY | | | [...] Bacteria, | NONE SEENComment: | NONE | [facility] | | | Urine | Testing performed at | | LABORATORY | | | | [facility], [address] | | | | | | [place] | | | | | | [address] | | | | + + + [...] + + + + + | [facility] | [address] | [place] [address] | [phone] | + + + + + Osmolality, [...] | | | | | [place] [address] | | | | + + + [...] [facility] | [address] | [place] [address] | [phone] | + + + + + Culture, [...] Special | Testing performed at | | [facility] | | | Requests | [facility];[address] | | LABORATORY | | | | [address];[place] [address] | | | | + + + + + + | RESULT | NO GROWTH 6 DAYS | | [facility] | | | | | | LABORATORY | | + + + + + + | RESULT | Testing performed at | | [facility] | | | | T[facility], [address] [facility] | | LABORATORY | | | | [place] | | | | | | [address]Koolond: Testing | | | | | | performed at [facility], [address] | | | | | | [address], [place] | | | | | | [address] | | | | + + + + + + + + | Specimen | + + | Blood - Swab of line | | insertion site | | (specimen) | + + + + + + + | Performing | Address | City/State/Zipcode | Phone Number | | Organization | | | | + + + + + | [facility] | [address] | [place] [address] | [phone] | + + + + + XR [...] Procedure Note | + + | Espinoza, [id number] - 10/11/2019 10:42 AM PDT | | [...] Special | Testing performed at | | [facility] | | | Requests | [address] | | LABORATORY | | | | [address];[place] [address] | | | | + + + + + + | RESULT | NO GROWTH 6 DAYS | | [facility] | | | | | | LABORATORY | | + + + + + + | RESULT | Testing performed at | | [facility] | | | | TCL, [address] [facility] | | LABORATORY | | | | [place] | | | | | | [address]Vacsany: Testing | | | | | | performed at [facility], [address] | | | | | | [address] [place] | | | | | | [address] | | | | + + + + + + + + | Specimen | + + | Blood - Peripheral | | blood specimen | | (specimen) | + + + + + + + | Performing | Address | City/State/Zipcode | Phone Number | | Organization | | | | + + + + + | [facility] | [address] | [place] [address] | [phone] | + + + + + Sodium (10/11/2019 9:30 AM PDT) + + + + + + | Component | Value | Ref Range | Performed | Pathologist | | | | | At | Signature | + + + + + + | Na | 127 (L)Comment: Testing | 135 - 145 | [facility] | | | | performed at [facility];888 | mmol/L | LABORATORY | | | | [address];[place] | | | | | | [address] | | | | + + + + + + + + | Specimen | + + | Blood | + + + + + + + | Performing | Address | City/State/Zipcode | Phone Number | | Organization | | | | + + + + + | [facility] | [address] | [place] [address] | [phone] | + + + + + Osmolality, [...] | | | | | [place] [address] | | | | + + + + + + + + | Specimen | + + | Blood | + + + + + + + | Performing | Address | City/State/Zipcode | Phone Number | | Organization | | | | + + + + + | [facility] | [address] | [place] [address] | [phone] | + + + + + Comprehensive [...] | | | | | | MDRD [facility] traceable | | | | | | equation.Testing | | | | | | performed at [facility];[address] | | | | | | [facility];[place], [place] | | | | | | [address] | | | | + + + + + + + + | Specimen | + + | Blood | + + + + + + + | Performing | Address | City/State/Zipcode | Phone Number | | Organization | | | | + + + + + | [facility] | [address] | [place] [address] | [phone] | + + + + + CBC [...] LABORATORY | | | | performed at [facility];[address] | | | | | [address];[place], [place] | | | | | | [address] | | | | + + + + + + + + | Specimen | + + | Blood | + + + + + + + | Performing | Address | City/State/Zipcode | Phone Number | | Organization | | | | + + + + + | [facility] | [address] | [place] [address] | [phone] | + + + + + Comprehensive [...] | >60Comment: GFR <60: | >60 | [facility] | | | GFR | [...] | | | | | | MDRD [facility] traceable | | | | | | equation.Testing | | | | | | performed at [facility];[address] | | | | | | [facility];[place], [place] | | | | | | [address] | | | | + + + + + + + + | Specimen | + + | Blood | + + + + + + + | Performing | Address | City/State/Zipcode | Phone Number | | Organization | | | | + + + + + | [facility] | [address] | [place] [address] | [phone] | + + + + + Magnesium (10/10/2019 4:16 AM PDT) + + + + + + | Component | Value | Ref Range | Performed | Pathologist | | | | | At | Signature | + + + + + + | Magnesium | 1.8Comment: Testing | 1.7 - 2.4 mg/dL | [facility] | | | | performed at [facility];[address] | | LABORATORY | | | | [address];[place] | | | | | | [address] | | | | + + + + + + + + | Specimen | + + | Blood | + + + + + + + | Performing | Address | City/State/Zipcode | Phone Number | | Organization | | | | + + + + + | [facility] | [address] | [place] [address] | [phone] | + + + + + CBC [...] | | | Absolute | performed at [facility];[address] | K/uL | LABORATORY | | | | [address];[place], [place] | | | | | | [address] | | | | + + + + + + + + | Specimen | + + | Blood | + + + + + + + | Performing | Address | City/State/Zipcode | Phone Number | | Organization | | | | + + + + + | [facility] | [address] | [place] [address] | [phone] | + + + + + Lactic Acid (10/09/2019 5:12 AM PDT) + + + + + + | Component | Value | Ref Range | Performed | Pathologist | | | | | At | Signature | + + + + + + | Lactate, | 1.8Comment: Testing | 0.4 - 2.0 | [facility] | | | Serum | performed at [facility];888 | mmol/L | LABORATORY | | | | [address];[place], [place] | | | | | | [address] | | | | + + + + + + + + | Specimen | + + | Blood | + + + + + + + | Performing | Address | City/State/Zipcode | Phone Number | | Organization | | | | + + + + + | [facility] | [address] | [place] [address] | [phone] | + + + + + Comprehensive [...] | | | | | | MDRD ID[facility] traceable | | | | | | equation.Testing | | | | | | performed at [facility];[address] | | | | | | [facility];[place], [place] | | | | | | [address] | | | | + + + + + + + + | Specimen | + + | Blood | + + + + + + + | Performing | Address | City/State/Zipcode | Phone Number | | Organization | | | | + + + + + | [facility] | [address] | [place] [address] | [phone] | + + + + + Procalcitonin [...] | | | | | | at [facility];[address] | | | | | | [address];[place] [address] | | | | + + + + + + + + | Specimen | + + | Blood | + + + + + + + | Performing | Address | City/State/Zipcode | Phone Number | | Organization | | | | + + + + + | [facility] | [address] | [place] [address] | [phone] | + + + + + Phosphorus (10/09/2019 5:10 AM PDT) + + + + + + | Component | Value | Ref Range | Performed | Pathologist | | | | | At | Signature | + + + + + + | Phosphorus | 4.0Comment: Testing | 2.3 - 4.8 mg/dL | [facility] | | | | performed at [facility];[address] | | LABORATORY | | | | [address];[place], [place] | | | | | | [address] | | | | + + + + + + + + | Specimen | + + | Blood | + + + + + + + | Performing | Address | City/State/Zipcode | Phone Number | | Organization | | | | + + + + + | [facility] | [address] | [place] [address] | [phone] | + + + + + Magnesium (10/09/2019 5:10 AM PDT) + + + + + + | Component | Value | Ref Range | Performed | Pathologist | | | | | At | Signature | + + + + + + | Magnesium | 1.7Comment: Testing | 1.7 - 2.4 mg/dL | [facility] | | | | performed at [facility];[address] | | LABORATORY | | | | [address];[place] | | | | | | [address] | | | | + + + + + + + + | Specimen | + + | Blood | + + + + + + + | Performing | Address | City/State/Zipcode | Phone Number | | Organization | | | | + + + + + | [facility] | [address] | [place] [address] | [phone] | + + + + + CBC [...] Comment | SLIDE SCANNED, AGREES | | [facility] | | | | WITH AUTOMATED | | LABORATORY | | | | RESULTS.Comment: Testing | | | | | | performed at [facility];[address] | | | | | | [address];[place], [place] | | | | | | [address] | | | | + + + + + + + + | Specimen | + + | Blood | + + + + + + + | Performing | Address | City/State/Zipcode | Phone Number | | Organization | | | | + + + + + | [facility] | [address] | [place] [address] | [phone] | + + + + + POC [...] | | | POC | performed at [facility];[address] | | LABORATORY | | | | [address];[place], [place] | | | | | | [address] | | | | + + + + + + + + | Specimen | + + | | + + + + + + + | Performing | Address | City/State/Zipcode | Phone Number | | Organization | | | | + + + + + | [facility] | [address] | [place] [address] | [phone] | + + + + + Phosphorus (10/08/2019 5:23 PM PDT) + + + + + + | Component | Value | Ref Range | Performed | Pathologist | | | | | At | Signature | + + + + + + | Phosphorus | 3.4Comment: Testing | 2.3 - 4.8 mg/dL | [facility] | | | | performed at [facility];[address] | | LABORATORY | | | | [address];[place] | | | | | | [address] | | | | + + + + + + + + | Specimen | + + | Blood | + + + + + + + | Performing | Address | City/State/Zipcode | Phone Number | | Organization | | | | + + + + + | [facility] | [address] | [place] [address] | [phone] | + + + + + Magnesium (10/08/2019 5:23 PM PDT) + + + + + + | Component | Value | Ref Range | Performed | Pathologist | | | | | At | Signature | + + + + + + | Magnesium | 1.8Comment: Testing | 1.7 - 2.4 mg/dL | [facility] | | | | performed at [facility];[address] | | LABORATORY | | | | [address];[place], [place] | | | | | | [address] | | | | + + + + + + + + | Specimen | + + | Blood | + + + + + + + | Performing | Address | City/State/Zipcode | Phone Number | | Organization | | | | + + + + + | [facility] | [address] | [place] [address] | [phone] | + + + + + CBC [...] at | | | | | | [facility];[address] [place] [address] | | | | | | [facility];[place] [address] | | | | + + + + + + + + | Specimen | + + | Blood | + + + + + + + | Performing | Address | City/State/Zipcode | Phone Number | | Organization | | | | + + + + + | [facility] | [address] | [place] [address] | [phone] | + + + + + Basic [...] | >60Comment: GFR <60: | >60 | [facility] | | | GFR | [...] | | | | | performed at [facility] | | | | | | [facility];[place], [place] | | | | | | [address] | | | | + + + + + + + + | Specimen | + + | Blood | + + + + + + + | Performing | Address | City/State/Zipcode | Phone Number | | Organization | | | | + + + + + | [facility] | [address] | [place] [address] | [phone] | + + + + + PTT (10/08/2019 5:23 PM PDT) + + + + + + | Component | Value | Ref Range | Performed | Pathologist | | | | | At | Signature | + + + + + + | PTT | 32Comment: Testing | 23 - 32 seconds | [facility] | | | | performed at [facility];[address] | | LABORATORY | | | | [address];[place] | | | | | | [address] | | | | + + + + + + + + | Specimen | + + | Blood | + + + + + + + | Performing | Address | City/State/Zipcode | Phone Number | | Organization | | | | + + + + + | [facility] | [address] | [place] [address] | [phone] | + + + + + POC SCOTT BRADLEY8, Arterial (10/08/2019 2:04 PM PDT) + [...] | | | POC | performed at [facility];888 | g/dL | LABORATORY | | | | [address];[place], [place] | | | | | | [address] | | | | + + + + + + + + | Specimen | + + | | + + + + + + + | Performing | Address | City/State/Zipcode | Phone Number | | Organization | | | | + + + + + | [facility] | [address] | [place] [address] | [phone] | + + + + + EDWARD CASTILLO Arterial (10/08/2019 1:22 PM PDT) + + [...] (LL)Comment: Testing | 13.7 - 16.7 | [facility] | | | POC | performed at [facility];[address] | g/dL | LABORATORY | | | | [address];[place], [place] | | | | | | [address] | | | | + + + + + + + + | Specimen | + + | | + + + + + + + | Performing | Address | City/State/Zipcode | Phone Number | | Organization | | | | + + + + + | [facility] | [address] | [place] [address] | [phone] | + + + + + Basic [...] | | | | | performed at [facility], [address] | | | | | | [address], | | | | | | [place] [address] | | | | + + + + + + + + | Specimen | + + | Blood | + + + + + + + | Performing | Address | City/State/Zipcode | Phone Number | | Organization | | | | + + + + + | [facility] | [address] | [place] [address] | [phone] | + + + + + CBC [...] | | | Absolute | performed at [facility], [address] | K/uL | LABORATORY | | | | [address], | | | | | | [place] [address] | | | | + + + + + + + + | Specimen | + + | Blood | + + + + + + + | Performing | Address | City/State/Zipcode | Phone Number | | Organization | | | | + + + + + | [facility] | [address] | [place] [address] | [phone] | + + + + + Magnesium (10/08/2019 5:44 AM PDT) + + + + + + | Component | Value | Ref Range | Performed | Pathologist | | | | | At | Signature | + + + + + + | Magnesium | 1.6 (L)Comment: Testing | 1.7 - 2.4 mg/dL | [facility] | | | | performed at [facility];[address] | | LABORATORY | | | | [address];[place] | | | | | | [address] | | | | + + + + + + + + | Specimen | + + | Blood | + + + + + + + | Performing | Address | City/State/Zipcode | Phone Number | | Organization | | | | + + + + + | [facility] | [address] | [place] [address] | [phone] | + + + + + PTT (10/07/2019 5:21 PM PDT) + + + + + + | Component | Value | Ref Range | Performed | Pathologist | | | | | At | Signature | + + + + + + | PTT | 28Comment: Testing | 23 - 32 seconds | [facility] | | | | performed at [facility];[address] | | LABORATORY | | | | [facility];[place], [place] | | | | | | [address] | | | | + + + + + + + + | Specimen | + + | Blood - Artery, | | Radial, Right | + + + + + + + | Performing | Address | City/State/Zipcode | Phone Number | | Organization | | | | + + + + + | [facility] | [address] | [place] [address] | [phone] | + + + + + Protime [...] | | | | | performed at [facility];[address] | | | | | | [address];[place] | | | | | | [address] | | | | + + + + + + + + | Specimen | + + | Blood - Artery, | | Radial, Right | + + + + + + + | Performing | Address | City/State/Zipcode | Phone Number | | Organization | | | | + + + + + | [facility] | [address] | [place] [address] | [phone] | + + + + + Basic [...] | | | | | performed at [facility];[address] | | | | | | [facility];[place], [place] | | | | | | [address] | | | | + + + + + + + + | Specimen | + + | Blood - Artery, | | Radial, Right | + + + + + + + | Performing | Address | City/State/Zipcode | Phone Number | | Organization | | | | + + + + + | [facility] | [address] | [place] [address] | [phone] | + + + + + CBC [...] LABORATORY | | | | performed at [facility];[address] | | | | | | [address];[place] | | | | | | [address] | | | | + + + + + + + + | Specimen | + + | Blood - Right upper | | arm structure (body | | structure) | + + + + + + + | Performing | Address | City/State/Zipcode | Phone Number | | Organization | | | | + + + + + | [facility] | [address] | [place] [address] | [phone] | + + + + + Surgical [...] attached red-white | | | fibromembranous tissue. Exchange Operator sections are submitted in | | | onezaneette (A1).AI (under the direct supervision of a [...] | LABORATORY:The technical component was performed by [employer] | | | [facility], [address] [place] [address] (Cafeteria Director: | | | Asia Rodriguez MD; CLIA# [id number]).Professional interpretation was | | | performed by [facility] [address] | | | [address] (Cafeteria Director: Solitario | | | Jacky Recio; CLIA#: [id number]). Diagnostician: Asia Rodriguez | | | MDPathologistElectronically Signed 10/10/2019 | | | | | |PERFORMING LABORATORY: | | |The technical component was performed by [employer], [address] [place] [address] (Cafeteria Director: Asia Rodriguez MD; CLIA# [id number]). | | |[facility], [address] [place], [place] [id number] (Cafeteria Director: Solitario Recio M.D.; CLIA#: [id number]). | | | | | |Diagnostician: Asia [...] (L)Comment: Testing | 13.7 - 16.7 | [facility] | | | POC | performed at [facility];[address] | g/dL | LABORATORY | | | | [address];[place] | | | | | | [address] | | | | + + + + + + + + | Specimen | + + | | + + + + + + + | Performing | Address | City/State/Zipcode | Phone Number | | Organization | | | | + + + + + | [facility] | [address] | [place] [address] | [phone] | + + + + + Red [...] | [facility] | | | COMMENT | [facility]. | | LABORATORY | | + + + + + + | BLOOD BANK | Testing performed at | | [facility] | | | COMMENT | [facility];[address] | | LABORATORY | | | | [address];[place] [address] | | | | + + + + + + + + | Specimen | + + | | + + + + + + + | Performing | Address | City/State/Zipcode | Phone Number | | Organization | | | | + + + + + | [facility] | [address] | [place] [address] | [phone] | + + + + + POC [...] | | | POC | performed at [facility];[address] | g/dL | LABORATORY | | | | [address];[place], [place] | | | | | | [address] | | | | + + + + + + + + | Specimen | + + | | + + + + + + + | Performing | Address | City/State/Zipcode | Phone Number | | Organization | | | | + + + + + | [facility] | [address] | [place] [address] | [phone] | + + + + + POC ISTAT, CG8, Arterial (10/07/2019 10:47 AM PDT) + + + + + + | Component | Value | Ref Range | Performed | Pathologist | | | | | At | Signature | + + + + + + | pH, | 7.334 (L) | 7.350 - 7.450 | [facility] | | | Arterial, | [...] | | | POC | performed at [facility];[address] | g/dL | LABORATORY | | | | [address];[place] | | | | | | [address] | | | | + + + + + + + + | Specimen | + + | | + + + + + + + | Performing | Address | City/State/Zipcode | Phone Number | | Organization | | | | + + + + + | [facility] | [address] | [place] [address] | [phone] | + + + + + POC [...] | | | POC | performed at [facility];[address] | g/dL | LABORATORY | | | | [address];[place], [place] | | | | | | [address] | | | | + + + + + + + + | Specimen | + + | | + + + + + + + | Performing | Address | City/State/Zipcode | Phone Number | | Organization | | | | + + + + + | [facility] | [address] | [place] [address] | [phone] | + + + + + Red [...] | [facility] | | | COMMENT | [facility] | | LABORATORY | | | | [address];[place] [address] | | | | + + + + + + + + | Specimen | + + | | + + + + + + + | Performing | Address | City/State/Zipcode | Phone Number | | Organization | | | | + + + + + | [facility] | [address] | [place] [address] | [phone] | + + + + + Magnesium (10/07/2019 3:55 AM PDT) + + + + + + | Component | Value | Ref Range | Performed | Pathologist | | | | | At | Signature | + + + + + + | Magnesium | 1.6 (L)Comment: Testing | 1.7 - 2.4 mg/dL | [facility] | | | | performed at [facility] | | LABORATORY | | | | [address];[place], [place] | | | | | | [address] | | | | + + + + + + + + | Specimen | + + | Blood | + + + + + + + | Performing | Address | City/State/Zipcode | Phone Number | | Organization | | | | + + + + + | [facility] | [address] | [place] [address] | [phone] | + + + + + Type [...] + + + | BB BAND | STRAIGHT 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 | [address] | [place] [address] | [phone] | + + + + + Basic [...] | | | | | performed at [facility];[address] | | | | | | [address];[place], [place] | | | | | | [address] | | | | + + + + + + + + | Specimen | + + | Blood | + + + + + + + | Performing | Address | City/State/Zipcode | Phone Number | | Organization | | | | + + + + + | [facility] | [address] | [place] [address] | [phone] | + + + + + CBC [...] | | | Absolute | performed at [facility];[address] | K/uL | LABORATORY | | | | [address];[place], [place] | | | | | | [address] | | | | + + + + + + + + | Specimen | + + | Blood | + + + + + + + | Performing | Address | City/State/Zipcode | Phone Number | | Organization | | | | + + + + + | [facility] | [address] | [place] [address] | [phone] | + + + + + Magnesium (10/06/2019 6:27 AM PDT) + + + + + + | Component | Value | Ref Range | Performed | Pathologist | | | | | At | Signature | + + + + + + | Magnesium | 1.6 (L)Comment: Testing | 1.7 - 2.4 mg/dL | [facility] | | | | performed at [facility];[address] | | LABORATORY | | | | [address];[place] | | | | | | [address] | | | | + + + + + + + + | Specimen | + + | Blood | + + + + + + + | Performing | Address | City/State/Zipcode | Phone Number | | Organization | | | | + + + + + | [facility] | [address] | [place] [address] | [phone] | + + + + + Basic [...] 8.3 (L) | 8.5 - 10.5 | [facility] | | | | | mg/dL | LABORATORY | | + + + + + + | Estimated | >60Comment: GFR <60: | >60 | [facility] | | | GFR | [...] | | | | | performed at [facility], [address] | | | | | | [facility], | | | | | | [place] [address] | | | | + + + + + + + + | Specimen | + + | Blood | + + + + + + + | Performing | Address | City/State/Zipcode | Phone Number | | Organization | | | | + + + + + | [facility] | [address] | [place] [address] | [phone] | + + + + + CBC [...] | | | Absolute | performed at [facility], [address] | K/uL | LABORATORY | | | | [address], | | | | | | [place] [address] | | | | + + + + + + + + | Specimen | + + | Blood | + + + + + + + | Performing | Address | City/State/Zipcode | Phone Number | | Organization | | | | + + + + + | [facility] | [address] | [place] [address] | [phone] | + + + + + Magnesium (10/05/2019 5:02 AM PDT) + + + + + + | Component | Value | Ref Range | Performed | Pathologist | | | | | At | Signature | + + + + + + | Magnesium | 1.7Comment: Testing | 1.7 - 2.4 mg/dL | [facility] | | | | performed at [facility];[address] | | LABORATORY | | | | [address];[place] | | | | | | [address] | | | | + + + + + + + + | Specimen | + + | Blood | + + + + + + + | Performing | Address | City/State/Zipcode | Phone Number | | Organization | | | | + + + + + | [facility] | [address] | [place] [address] | [phone] | + + + + + Basic [...] 8.4 (L) | 8.5 - 10.5 | [facility] | | | | | mg/dL | LABORATORY | | + + + + + + | Estimated | >60Comment: GFR <60: | >60 | [facility] | | | GFR | [...] | | | | | | MDRD [facility] traceable | | | | | | equation.Testing | | | | | | performed at [facility], [address] | | | | | | [facility], | | | | | | [place] [address] | | | | + + + + + + + + | Specimen | + + | Blood | + + + + + + + | Performing | Address | City/State/Zipcode | Phone Number | | Organization | | | | + + + + + | [facility] | [address] | [place] [address] | [phone] | + + + + + CBC [...] | | | Absolute | performed at [facility], [address] | K/uL | LABORATORY | | | | [address], | | | | | | [place] [address] | | | | + + + + + + + + | Specimen | + + | Blood | + + + + + + + | Performing | Address | City/State/Zipcode | Phone Number | | Organization | | | | + + + + + | [facility] | [address] | [place] [address] | [phone] | + + + + + ECHO [...] Procedure Note | + + | Espinoza, [id number] - 10/04/2019 12:10 PM PDT | | [...] [facility] | | | | performed at [facility] | | LABORATORY | | | | [address];[place] | | | | | | [address] | | | | + + + + + + + + | Specimen | + + | Tissue - Both | | anterior nares (body | | structure) | + + + + + + + | Performing | Address | City/State/Zipcode | Phone Number | | Organization | | | | + + + + + | [facility] | [address] | [place] [address] | [phone] | + + + + + Protime INR (10/04/2019 6:12 AM PDT) + + + + + + | Component | Value | Ref Range | Performed | Pathologist | | | | | At | Signature | + + + + + + | INR | 1.1Comment: REFERENCE | | [facility] | | | | RANGE:0.9 [...] | | | | | performed at [facility];[address] | | | | | | [address];[place] | | | | | | [address] | | | | + + + + + + + + | Specimen | + + | Blood | + + + + + + + | Performing | Address | City/State/Zipcode | Phone Number | | Organization | | | | + + + + + | [facility] | [address] | [place] [address] | [phone] | + + + + + Uric Acid (10/04/2019 4:26 AM PDT) + + + + + + | Component | Value | Ref Range | Performed | Pathologist | | | | | At | Signature | + + + + + + | Uric Acid | 3.2Comment: Testing | 3.2 - 8.6 mg/dL | [facility] | | | | performed at [facility], [address] | | LABORATORY | | | | [address], | | | | | | [place] [address] | | | | + + + + + + + + | Specimen | + + | Blood | + + + + + + + | Performing | Address | City/State/Zipcode | Phone Number | | Organization | | | | + + + + + | [facility] | [address] | [place] [address] | [phone] | + + + + + Lipid [...] | | | Calculated | performed at [facility], [address] | | LABORATORY | | | | [address], | | | | | | [place] [address] | | | | + + + + + + + + | Specimen | + + | Blood | + + + + + + + | Performing | Address | City/State/Zipcode | Phone Number | | Organization | | | | + + + + + | [facility] | [address] | [place] [address] | [phone] | + + + + + Comprehensive [...] | | | | | performed at [facility], [address] | | | | | | [facility], | | | | | | [place] [address] | | | | + + + + + + + + | Specimen | + + | Blood | + + + + + + + | Performing | Address | City/State/Zipcode | Phone Number | | Organization | | | | + + + + + | [facility] | [address] | [place] [address] | [phone] | + + + + + CBC [...] | | | | | [place] [address] | | | | + + + + + + + + | Specimen | + + | Blood | + + + + + + + | Performing | Address | City/State/Zipcode | Phone Number | | Organization | | | | + + + + + | [facility] | [address] | [place] [address] | [phone] | + + + + + Coronavirus (COVID-19) NAAT (10/04/2019 12:49 AM PDT) + + + + + + | Component | Value | Ref Range | Performed | Pathologist | | | | | At | Signature | + + + + + + | SARS-CoV-2, | NEGATIVEComment: This | NEG | [facility] | | | NAAT | [...] | | | | | performed at [facility];[address] | | | | | | [address];[place], [place] | | | | | | [address] | | | | + + + + + + + + | Specimen | + + | Tissue - Entire | | nasopharynx (body | | structure) | + + + + + + + | Performing | Address | City/State/Zipcode | Phone Number | | Organization | | | | + + + + + | [facility] | [address] | [place] [address] | [phone] | + + + + + ECG [...] | | | | XIANG HART MD ([id number]) | | | | | | on [...] BAND | Testing performed at | | [facility] | | | | [facility];[address] | | LABORATORY | | | | [address];[place] [address] | | | | + + + + + + + + | Specimen | + + | Blood | + + + + + + + | Performing | Address | City/State/Zipcode | Phone Number | | Organization | | | | + + + + + | [facility] | [address] | [place] [address] | [phone] | + + + + + Comprehensive [...] | | | | | performed at [facility];[address] | | | | | | [facility];[place], [place] | | | | | | [address] | | | | + + + + + + + + | Specimen | + + | Blood | + + + + + + + | Performing | Address | City/State/Zipcode | Phone Number | | Organization | | | | + + + + + | [facility] | [address] | [place] [address] | [phone] | + + + + + CBC [...] | | | Absolute | performed at [facility];[address] | K/uL | LABORATORY | | | | [address];[place] | | | | | | [address] | | | | + + + + + + + + | Specimen | + + | Blood | + + + + + + + | Performing | Address | City/State/Zipcode | Phone Number | | Organization | | | | + + + + + | [facility] | [address] | [place] [address] | [phone] | + + + + + documented [...] +-------+ +-------+---+---+ +-------+ +-------+---+---+ | Given | 08/16/20 | 75 mg | | | | [...] | | | Starting [facility] 10/12/19 at 1744 | | | | [...] 8:48 | | | | | Starting Tu 10/03/19 at 2230 | | PM PDT | | | | + +-------+ +------+---+---+ + +---+ | | | + +---+ | morphine injection 2-4 mg 2-4 | | | mg, Intravenous, EVERY 2 HOURS | | | PRN, Other, breakthrough pain, | | | Starting [facility] 10/10/19 at 1216, | | | First [...]
--- OUTSIDE RECORDS SUMMARY | ~2019-10-23 | XMS | Encounter Summary ---
Demographics + + + | Address | [address] | | | [place] [address] | + + + | Home Phone | | + + + | Preferred Language | Unknown | + + + | Marital Status | Single | + + + | Mandaeism Affiliation | BAP | + + + [...] Team Providers + +------+ + | Care Lens And Frames Prescription Clerk Name | Role | Phone | [...] | | | | nscribed | | [facility] | | | | | | [place] [address] | | | | | | [phone] | | +--------+ + + + + [...] Bina Harrington - 05/13/2007 1:35 PM PDT [id number] 8005/02/2007 [id number] [place] JUAREZ [id number] Admission Date: 04/29/2007 Discharge Date: 05/02/2007 Staff Physician: Bina Harrington N.P. ADDENDUM The patient phoned prescription of Keflex 500 mg p.o. q.i.d. x5 days to [facility] at [phone]. Bina Harrington N.P. / [id number] / [id number] / [id number] / Reviewed or Edited By Bina Harrington on 05-04-2007 Electronically signed by Orlando Churchill 05-13-2007 01:33:53 PM documented in this encounter Plan of Treatment Not on filedocumented as of this encounter Visit Diagnoses Not on filedocumented in this encounter"
--- OUTSIDE RECORDS SUMMARY | ~2019-10-23 | XMS | Encounter Summary ---
Demographics + + + | Address | [address] | | | [place] [address] | + + + | Home Phone [...] Team Providers + +------+ + | Care Fleet Operations Manager Name | Role | Phone | [...] [address] | | | | | | [place] [address] | | +--------+ + + + + [...] Roman Reynoso - 05/13/2007 1:34 PM PDT [id number] FROILAN JUAREZ [id number] Admission Date: 04/29/2007 Discharge Date: 05/02/2007 Staff [...] abdominal aortic pseudoaneurysm. He was transferred to [facility] via [facility] for definitive care. [...] appointment. I also e-mailed the Vascular Surgery assembler wire group with the patient's information to call the patient to schedule appointment as well. The patient should also follow up with his primary care doctor in 1 to 2 weeks and is to call to schedule appointment. Jacky Elizabeth M.D. PDF / HS [id number] / [id number] / [id number] / Reviewed or Edited By Roman Swartz M.D. on 05-10-2007 Electronically signed by Orlando Churchill 05-13-2007 01:33:23 PM documented in this encounter Plan of Treatment Not on filedocumented as of this encounter Visit Diagnoses Not on filedocumented in this encounter"
--- OUTSIDE RECORDS SUMMARY | ~2019-10-23 | XMS | Encounter Summary ---
Demographics + + + | Address | [address] | | | [place] [address] | + + + | Home Phone [...] Author + + + | Author | [facility] [email or web address] [facility] | + + + | Organization | [facility] [employer] [facility] | + + + | Address | Unknown | + + + | Phone | Unavailable | + + + Support + + +---------+ + | Name | Relationship | Address | Phone | + + +---------+ + | Lele Conley | ECON | Unknown | | + + +---------+ + Care Team Providers + +------+ + | Care Crew Director Name | Role | Phone | + +------+ + PCP | Unavailable | + +------+ + Encounter Details +--------+ + + + + | Date | Type | Department | Care Team | Description | +--------+ + + + + | 04/30/ | Respiratory | Respiratory | Nikita Holliday | | | 2007 | Therapy | Therapy [address] [facility] | [phone] | | | | | [address] | | | | | | Mailcode: [address] | | | | | | [place], [place] | | | | | | [address] | | | | | | [phone] | | | +--------+ + + + [...] Caputo, | | | | | | GASSER MACHINE OPERATOR | | | | + + + [...] [facility] | [address] | [place], [place] | | | THERAPY | [facility] | [address] | | + + + + + | [facility] | [address] [facility] [address] | [place], [place] | | | THERAPY | [facility] | [address] | | + + + + + [...] | THERAPY | | | | Moy, GASSER MACHINE OPERATOR | | | | + + + [...] [facility] | [address] | [place], [place] | | | THERAPY | [address] | [address] | | + + + + + | [facility] | [address] | [place], [place] | | | THERAPY | [address] [place] | [address] | | + + + + + documented in this encounter Visit Diagnoses Not on filedocumented in this encounter"
--- OUTSIDE RECORDS SUMMARY | ~2019-10-23 | XMS | Encounter Summary ---
Demographics + + + | Address | [address] | | | [place] [address] | + + + | Home Phone [...] [facility] | + + + | Organization | [facility] | + + + | Address | Unknown | + + + | Phone | Unavailable | + + + Support + + +---------+ + | Name | Relationship | Address | Phone | + + +---------+ + | Lele Conley | ECON | Unknown | | + + +---------+ + Care Team Providers + +------+ + | Care Ross Lift Operator Name | Role | Phone | [...] | | | | Physicians Katelyn, | [place], [place] | | | | | [address] [place] [address] | [address] | | | | | [place], [place] | [phone] | | | | | [address] | | | | | | [phone] | | | +--------+ + + + [...] Jairo know this was called to his [facility] in [place] at [phone]. 10 :25 AM PDTTelephone Encounter - Nicolas [...]
--- OUTSIDE RECORDS SUMMARY | ~2019-10-23 | XMS | Encounter Summary ---
Demographics + + + | Address | [address] | | | [place] [address] | + + + | Home Phone [...] + + | Author | [facility] [employer] [facility] | + + + | Organization | [facility] | + + + | Address | Unknown | + + + | Phone | Unavailable | + + + Support + + +---------+ + | Name | Relationship | Address | Phone | + + +---------+ + | Lele Conley | ECON | Unknown | | + + +---------+ + Care Team Providers + +------+ + | Care Hand Developer Name | Role | Phone | [...] + + | 11/17/ | Emergency | [facility] Emergency | Cristhian Mayer, | | | 2016 | | Department [address] | [address] [facility] | | | | | [address] | [facility] | | | | | [facility] | [place], [place] | | | | | [place], [place] | [address] | | | | | [address] | [phone] | | | | | [phone] | | | +--------+ + + + [...] per ref pt will be going to [facility] MCElectronically signed by Joanna Vuong at 10:58 PM [facility] Jojo Ayers - 11/16/2016 8:48 PM PDTHOLD-referring exp jorge placement elsewhere due to delays. Will call back to update if bed found elsewhere. E lectronically signed by Jojo Adams at 11/16/2016 8:48 PM [facility] AdamsJojo - 11/16/2016 8:20 [address] PDTSt Hiren [...] [facility] transfer [facility] Carlie Mejia - 11/16/2016 5:49 [...] from transferring tonight. Paged group 18. omm [place] - Carlie Mcdowell - 11/16/2016 5:[address] [place]on (Colorectal). [place] weeks signed by Carlie Lincoln at 11/16/2016 5:45 PM PDTdocumented in this encounter Plan of Treatment Not on filedocumented as of this encounter Visit Diagnoses Not on filedocumented in this encounter"
--- OUTSIDE RECORDS SUMMARY | 2019-10-23 11:20 | XMS ---
PreManage Notification: LARRY MCGOVERN Security Top Collar Maker Events No recent Security Events currently on file CRITERIA MET - History of Sepsis [facility] - 2 Visits in 30 Days CARE PROVIDERS Name Unknown Metalizer: Clinical 10/04/2019-Current PHONE: [phone] Brionna has no Care Guidelines for this patient. Care History Medical/Surgical 10/04/2019 [facility] \T\middot;\T\nbsp; PATIENT [place]CE[place]OUGH [place]. \T\middot;\T\nbsp; Location: [address], [place] [address]- E.D. VISIT COUNT (12 MO.) 2 [facility] TOTAL 2 NOTE: Visits indicate total known visits. ED/UCC VISIT TRACKING (12 MO.) 10/23/2019 11:17 [facility] [place] TYPE: Emergency COMPLAINT: - HAND LAC 10/03/2019 10:25 [facility] [place] TYPE: Emergency COMPLAINT: - SKIN ISSUE, R LEG/FOOT SWOLLEN DIAGNOSES: - Aneurysm of artery of lower extremity - Cellulitis of right lower limb - Nicotine dependence, unspecified, uncomplicated INPATIENT VISIT TRACKING (12 MO.) 10/03/2019 22:09 [facility] TYPE: Internal Medicine DIAGNOSES: - Peripheral vascular disease, unspecified - Cellulitis of right lower limb - pseudoaneurysm - Thrombosis due to vascular prosthetic devices, implants and g - Other acute postprocedural pain - Aneurysm of unspecified site [email or web address]
== END 2019-10-23 11:32 | disposition home or self-care (01) ==
LOC: ED 11:17
DX: S61.412A Laceration without foreign body of left hand, initial encounter (principal); W26.0XXA Contact with knife, initial encounter

== ENCOUNTER 2019-10-28 11:15 | Emergency (ER) | payer MEDICARE, OTHER ==
[~2019-10-28] VITALS: Ht 167.6 cm; Wt 56.7 kg
--- OUTSIDE RECORDS SUMMARY | 2019-10-28 11:18 | XMS ---
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 Care History Medical/Surgical 10/04/2019 [facility] \T\middot;\T\nbsp; PATIENT IS A -RECEIVES SERVICES THROUGH [facility] IN [place]. \T\middot;\T\nbsp; Location: [address], [place] [address]- E.D. VISIT COUNT ([address] [facility] TOTAL 3 NOTE: Visits indicate total known visits. ED/UCC VISIT TRACKING (12 MO.) 10/28/2019 11:16 [facility] [place] TYPE: Emergency COMPLAINT: - HAND PAIN/ INJ 10/23/2019 11:17 [facility] [place] TYPE: Emergency COMPLAINT: - HAND LAC DIAGNOSES: - Laceration without foreign body of left hand, initial encount - Contact with knife, initial encounter - Laceration without foreign body of left hand, initial encount 10/03/2019 10:25 [facility] [place] [facility] [place] TYPE: Emergency COMPLAINT: - SKIN ISSUE, R LEG/FOOT SWOLLEN DIAGNOSES: - Aneurysm of artery of lower extremity - Cellulitis of right lower limb - Nicotine dependence, unspecified, uncomplicated INPATIENT VISIT TRACKING (12 MO.) 10/03/2019 22:09 [facility] Cassy [facility] TYPE: Internal Medicine DIAGNOSES: - Peripheral vascular disease, unspecified - Cellulitis of right lower limb - pseudoaneurysm - Thrombosis due to vascular prosthetic devices, implants and g - Other acute postprocedural pain - Aneurysm of unspecified site [email or web address]
[2019-10-28] MEDS ORDERED: KEFLEX500 MG PO (14:54)
[2019-10-28] MEDS ORDERED: NORCO 5-325 TA1 EACH PO (14:54)
== END 2019-10-28 15:23 | disposition home or self-care (01) ==
LOC: ED 11:15
DX: L03.113 Cellulitis of right upper limb (principal); F17.200 Nicotine dependence, unspecified, uncomplicated
CPT/HCPCS: 99283; A9270

== ENCOUNTER 2019-11-02 20:20 | Inpatient (IN) | payer MEDICARE, OTHER ==
[~2019-11-02] VITALS: Ht 167.6 cm; Wt 50.8 kg
--- OUTSIDE RECORDS SUMMARY | ~2019-11-02 | XMS | Encounter Summary ---
Demographics + + + | Address | [address] | | | [place] [address] | + + + | Home Phone | | + + + | Preferred Language | Unknown | + + + | Marital Status | Single | + + + | Adventist Affiliation | [id number] | + + + | Race | White | + + + | Ethnic Group | Not or | + + + Author + + + | Author | [facility] | | | and [place] | + + + | Organization | [facility] | | | and [...] Team Providers + +------+ + | Care Cutter V Groove Name | Role | Phone | + +------+ + | Teresita Bob MD | PCP | | + +------+ + Reason for Referral Evaluate & Treat (Routine) + + + + + + + | Status | Reason | Specialty | Diagnoses / | Referred By | Referred To | | | | | Procedures | Contact | Contact | + + + + + + + | Pending | Specialty | Home Health | Diagnoses | | | | Review | Services | Services | | Ramone, | | | | Required | | Pseudoaneury | Mundo Ashton | | | | | | sm ([facility]) | MD Alissa [address] | | | | | | Cellulitis | [address] | | | | | | of right | [place], [place] | | | | | | foot | [address] | | | | | | Thrombosis | Phone: | | | | | | of | [phone] | | | | | | femoral-femo | Fax: | | | | | | ral bypass | [phone] | | | | | | graft ([facility]) | | | | | | | | | | | | | | Post-operati | | | | | | | ve pain | | | + + + + + + + Reason for Visit Auth/Cert +--------+--------+ + [...] | +--------+ + + + + | 10/02/ | Hospital | [facility] | Jairo Renner MD | Pseudoaneurysm ([facility]) | | 2019 - | Encounter | [facility] | [address] | right aorto femoral | | | | [address] | [place] [address] | bypass (Primary | | 10/15/ | | [place], [place] | [phone] | Dx); Peripheral | | 2019 | | [address] | | arterial disease | | | | [phone] | Latoya Oh DO | ([facility]); | | | | | [address] | Pseudoaneurysm | | | | | [place] [address] | ([facility]); Peripheral | | | | | [phone] | arterial disease | | | | | | ([facility]); Cellulitis of | | | | | Chyna Shook MD | right foot; | | | | | [address] | Thrombosis of | | | | | [place] [address] | femoral-femoral | | | | | [phone] | bypass graft (HCC); | | | | | | Post-operative pain | | | | | Tera Vázquez | | | | | | Jose Castañeda MD [address] | | | | [address] | | | | | | [place] [address] | | | | | | [phone] | | | | | | | | | | | | Mundo Pack | | | | | | Poli [place] MD [address] | | | | [address] [place], [place] | | | | | | [address] | | | | | | | [...] + + + | Blood Pressure | 159/78 | 10/15/2019 11:11 PM | | | | | PDT | | + + + + + | Pulse | 87 | 10/15/2019 11:11 PM | | | | | PDT | | + + + + + | Temperature | 37.1 C (98.8 F) | 10/15/2019 11:11 PM | | | | | PDT | | + + + + + | Respiratory Rate | 20 | 10/15/2019 11:11 PM | | | | | PDT | | + + + + + | Oxygen Saturation | 98% | 10/15/2019 11:11 PM | | | | | PDT | | + + + + + | Inhaled Oxygen | - | - | | | Concentration | | | | + + + + + | Weight | 66.2 kg (145 lb 15.1 | 10/11/2019 5:00 AM | | | | oz) | PDT [...] GRAFT FEMORAL-POPLITEAL (Bilateral) ANGIOGRAM - EXTREMITY BILATERAL (76951) (Bilateral) Chief Complaint: No chief complaint on [...] who was admitted on 10/03/2019 Transfer from [facility] with bilateral hip and pelvic burning [...] veloci ty. Final Report Signed by: Jacky Anderson, Nicolas Sign Date/Time: 10/04/2019 12:06 PM No results found. Outstanding Issues: Principal Problem: Peripheral arterial disease / Pseudoaneurysm right aorto femoral bypass status post v ascular surgery, patient will continue with wound care, will have wound check in 2 weeks wit [facility] to provide transportation, continue with aspirin 81 mg daily, Plavix 75 mg daily, atorv astatin 40 mg daily. Active Problems: Alcohol abuse/ Tobacco abuse advised to stop smoking and drinking Cellulitis of right foot has been completely treated with Augmentin while in the hospital Discharge Information: Follow up: Teresita Bob MD [address] [place] [id number] Follow up for Home health Wound Care ZULY GRIFFIN [address] [address] Follow up Wound Care and Physical Therapy [...] for adjustment of doses and medications. Armani angel take all the medication to your PCP [...] you recover. Don t drive for at [id number] after your surgery or while you are [...] incisions are well healed (severo alvarez at leas 2 weeks). You can shower to keep [...] better overnight Chest pain or trouble breathing INVOLTA last reviewed this educational content on 11/29/201819996729-0670 [employer]. [address] [place] [address]. All righ ts reserved. This information is [...] of developing AAA decreases. To learn more Smokefree.gov/hzuz-pg-ap-expert National Cancer [place] Smoking Quitline:303-01Q-NENL (804-454-7120) INVOLTA last reviewed this educational content on 12/30/201819992250-3783 [employer]. [address] [place] [address]. All righ ts reserved. This information is [...] find a support program: Free national quitline 353-LTOH-ZTJ (491-470-5026) [facility] quit-smoking programs [employer] [place] 555-357-7174 [place] [employer] 938-746-3474 Support at home is important too. Family and friends can offer praise and reassurance. If t he smoker in your life finds it hard to quit, encourage them to keep trying. Try djxk-qfq-celzxod medicine Nicotine replacement therapymay make iteasier to [...] to quit smoking, try these resources: www.cdc.gov/tobacco/quit_smoking/ 145-XEST-WHN (828-327-3236) www.smokefree.gov 235-25J-LWCX (408-661-0085) www.lung.org/stop-smoking/ 800-LUNGUSA (419-728-7989) Herve last reviewed this educational content on 01/29/201919990530-9790 [employer]. [address] [place] [address], [place] [address]. All righ ts reserved. This information is [...] Wheelchair escort to exit. VSS . Celeste Guzman. HARRISON Gaviria 10/16/19 Michael Milian PA- C - 10/16/2019 7:20 AM PDT [facility] Service: Vascular Surgery Progress Note Hospital Day: LOS: 13 days Post-Op Day: 11/06 SUBJECTIVE Patient Summary: The patient is a 59 y.o. male with significant past medical history of tobacco abuse, HTN, CAD, history of alcohol abuse who presented to [facility] with com plaints of cellulitis of right leg as well as enlarging pseudoaneurysm of right MANAGER BASKETBALL. He unde rwent aortobifemoral bypass in 1999. [...] scan which revealed enlargement of known right MANAGER BASKETBALL pseudoaneurysm. He was transferred to [facility] for evaluation and Vascular was [...] promet hazine, senna OBJECTIVE Vital Signs: Vitals: 10/16/19 0706 BP: [...] arteries bilaterally. Toes are warm to kush , able to wiggle toes and dorsiflex and [...] importance of following up with our office correction. Still recommend discharge ho me with assist [...] Code Status: Full Michael Abel PA-C 10/16/2019 uGerard bhagat RN - 10/15/2019 6:52 PM PDTA/O, AUGUSTUS removed today, wounds less oozy today, possible d/ c tomorrow Electronically signed by: Nigel Starkey RN 10/15/2019 6:53 PM PDT undo Pack MD - 10/15/2019 10:30 AM PDT . Jairo Theodore [id number] Hospital Day: 12 SUBJECTIVE Events Overnight: Patient seen and examined at bedside on follow-up. Overnight the pa romeo has patient has been afebrile vital signs [...] right to left femoral to femoral artery bypa ss with 8 mm PTFE. Continue with [...] been in touch with his Merrill, Lele [phone] and he did not want me to [...] and management as well as Computerized Physician Recyclable Materials Distributor. Dictation software, Skyepack, used which may contain error for similar sounding words even af ter review. Portions of this chart may have been copied from previous notes for continuity of care. Mundo Pack MD, FACP, FAAP 10/15/2019 il son, Chelsi JUICE Hebert - 10/15/2019 8:47 AM PDT [facility] Service: Vascular Surgery Progress Note Hospital [...] history of alcohol abuse who presented to [facility] with com plaints of cellulitis of right leg as well as enlarging pseudoaneurysm of right MANAGER BASKETBALL. He unde rwent aortobifemoral bypass in 1999. [...] scan which revealed enlargement of known right MANAGER BASKETBALL pseudoaneurysm. He was transferred to [facility] for evaluation and Vascular was [...] promet hazine, senna OBJECTIVE Vital Signs: Vitals: 10/15/19 0532 BP: [...] swelling. Call with any neurovascular changes. [facility] with management of this patient. Disposition: [...] - 10/14/2019 9:23 AM PDT Jairo Theodore [id number] Hospital Day: 11 SUBJECTIVE Events Overnight: Patient seen and examined at bedside on follow-up. Overnight the pa tient has patient has been afebrile vital signs [...] right to left femoral to femoral artery bypa ss with 8 mm PTFE. Continue with [...] been in touch with his Merrill, Lele [phone] and he did not want me to [...] and management as well as Computerized Physician Recyclable Materials Distributor. Dictation software, Skyepack, used which may contain error for similar sounding words even af ter review. Portions of this chart may have been copied from previous notes for continuity of care. Mundo Pack MD, FACP, FAAP 10/14/2019 il son, Chelsi HebertJUICE - 10/14/2019 8:44 AM PDT [facility] Service: Vascular Surgery Progress Note Hospital [...] history of alcohol abuse who presented to [facility] with com plaints of cellulitis of right leg as well as enlarging pseudoaneurysm of right MANAGER BASKETBALL. He unde rwent aortobifemoral bypass in 1999. [...] scan which revealed enlargement of known right MANAGER BASKETBALL pseudoaneurysm. He was transferred to [facility] for evaluation and Vascular was [...] potassium chloride IVPB (other volumes & diluents), alejandraet mei storm OBJECTIVE Vital Signs: Vitals: 10/14/19 0736 BP: [...] later as census permits and pt avilability Ella Anand RD - 10/13/2019 2:22 PM PDT NUTRITION [...] 1.7 Estimated Energy Needs Energy Calorie Requirements: 1526-2217(28-32 kcal/kg per 54.3 kg admit wt ) [...] Risk Required Follow Up: 5 days(10/12 M) Ella Meyer RD,CD 10/13/2019 2:22 PM PDT Problem: Oral Intake Inadequate Goal: Improved Oral Intake Description: Pt will consume >75% of meals and snacks Outcome: Ongoing, progressing Note: Pt will consume > 75% of meals, supplements. Arlene Crum PA- C - 10/13/2019 10:33 AM PDT [facility] Service: Vascular Surgery Progress Note Hospital [...] history of alcohol abuse who presented to [facility] with com plaints of cellulitis of right leg as well as enlarging pseudoaneurysm of right MANAGER BASKETBALL. He unde rwent aortobifemoral bypass in 1999. [...] scan which revealed enlargement of known right MANAGER BASKETBALL pseudoaneurysm. He was transferred to [facility] for evaluation and Vascular was [...] potassium chloride IVPB (other volumes & diluents), alejandraet mei storm OBJECTIVE Vital Signs: Vitals: 10/13/19 0833 BP: [...] this note might be different from t wyatt original. Jairo Theodore [id number] Hospital Day: 10 SUBJECTIVE Events Overnight: Patient seen and examined at bedside on follow-up. Overnight the pa romeo has patient has been afebrile vital signs [...] to left femoral to femoral artery bytracey with 8 mm PTFE. Continue with postop [...] been in touch with his Merrill, Lele [phone] and he did not want me to [...] and management as well as Computerized Physician Recyclable Materials Distributor. Dictation software, Skyepack, used which may contain error for similar sounding words even af ter review. Portions of this chart may have been copied from previous notes for continuity of care. Mundo Pack MD, FACP, FAAP 10/13/2019 Chiquita Cook OTR/L - 10/12/2019 3:28 PM PDT MISSED OCCUPATIONAL [...] different from the orig inal. Jairo Theodore [id number] Hospital Day: 9 SUBJECTIVE Events Overnight: Patient [...] right to left femoral to femoral artery bypa ss with 8 mm PTFE. Continue with [...] been in touch with his Merrill, Lele [phone] and he did not want me to [...] and management as well as Computerized Physician Recyclable Materials Distributor. Dictation software, Skyepack, used which may contain error for similar sounding words even af ter review. Portions of this chart may have been copied from previous notes for continuity of care. Mundo Pack MD, FACP, FAAP 10/12/2019 il son, Chelsi Hebert, JUICE - 10/12/2019 9:17 AM PDT [facility] Service: Vascular Surgery Progress Note Hospital [...] history of alcohol abuse who presented to [facility] with com plaints of cellulitis of right leg as well as enlarging pseudoaneurysm of right MANAGER BASKETBALL. He unde rwent aortobifemoral bypass in 1999. [...] scan which revealed enlargement of known right MANAGER BASKETBALL pseudoaneurysm. He was transferred to [facility] for evaluation and Vascular was [...] Color, UA YELLOW Clarity, Urine CLEAR Specific Hoffmeister, Urine 1.008 1.002 - 1.030 Leukocyte esterase, [...] BANK. BLOOD BANK COMMENT Testing performed at [facility] [place] [address] Type and Screen Collection Time: 10/12/19 7:52 AM Result Value Ref Range ABO Rh A POSITIVE Antibody Screen NEGATIVE BB BAND [id number] BB BAND Testing performed at [facility] [place] [address] UNIT # [id number] Product Code LEUKODEPLETED PC Unit Division 00 Unit Status ALLOCATED Transfusion Status OK TO TRANSFUSE CROSSMATCH RESULT COMPATIBLE UNIT # [id number] Product Code LEUKODEPLETED PC Unit Division 00 [...] heart rate, normotensive tod ay. H&H at .11/17.9 today, no overt signs of bleeding from [...] to chair with feet elevated. Please call [facility] h any neurovascular changes. Appreciate hospitalitis [...] plan. Magdiel Arteaga MD Vascular Surgery Tonja Abel RN - 10/12/2019 6:53 AM PDTEducated the pt on the need of FR due to low s odium. BL groins, and abd dressing changed 3 times with OPTI lock during shift due to copiou s serous drainage. Critical H/H .11/17MD notified. 1 Unit of PRBC ordered. K+ and Mag+ re placed per protocol, recheck potassium at 1040. Chart Check Complete Tonja Abel RN undo Pack MD - 10/11/2019 9:16 AM PDTFormatting of this note might be different from the origina smooth Jairo Theodore [id number] Hospital Day: 8 SUBJECTIVE Events Overnight: Patient [...] His blood pressure now ranges from 111/82-170 9/75 no more hypotensive episodes . Patient states [...] right [facility] left femoral [facility]. Continue with [...] been in touch with his Merrill, Lele [phone] and he did not want me to [...] and management as well as Computerized Physician Recyclable Materials Distributor. Dictation software, Skyepack, used which may contain error for similar sounding words even af ter review. Portions of this chart may have been copied from previous notes for continuity of care. Mundo Pack MD, FACP, FAAP 10/11/2019 il son, Chelsi Hebert, JUICE - 10/11/2019 6:45 AM PDT [facility] Service: Vascular Surgery Progress Note Hospital [...] history of alcohol abuse who presented to [facility] with com plaints of cellulitis of right leg as well as enlarging pseudoaneurysm of right MANAGER BASKETBALL. He unde rwent aortobifemoral bypass in 1999. [...] scan which revealed enlargement of known right MANAGER BASKETBALL pseudoaneurysm. He was transferred to [facility] for evaluation and Vascular was [...] Full Chelsi Arteaga PA-C 10/11/2019 Rachel Trinidad, [facility] - 10/10/2019 11:59 AM PDTFormatting of this note might be different from the o riginal. Clinical Pharmacy Note: Intravenous to Oral Conversion Jairo Theodore is a 59 y.o. male. A review of patient's medication profile was conducted f or targeted drugs per Pharmacy Driven Intravenous to Oral Conversion Protocol (IV to PO Inte rchan). Assessment: Jairo meets the following criteria for [...] PO medications. Thank You, Rachel Cifuentes, PharmD, [facility] 10/10/19 11:59 AM PDT rlene Lamar P A-C - 10/10/2019 11:36 AM PDT [facility] Service: Vascular Surgery Progress Note Hospital [...] history of alcohol abuse who presented to [facility] with com plaints of cellulitis of right leg as well as enlarging pseudoaneurysm of right MANAGER BASKETBALL. He unde rwent aortobifemoral bypass in 1999. [...] scan which revealed enlargement of known right MANAGER BASKETBALL pseudoaneurysm. He was transferred to [facility] for evaluation and Vascular was [...] change the Prevena dressings. Vascular Services renato castañeda assess his incisions tomorrow and perform dressing [...] the or iginal. [facility] Service: Lead Etl Developer Progress Note Jairo Theodore 59 y.o. Hospital [...] He was farnsworth sferred on 10/03/2019 from [facility] for right foot swelling and increase in [...] procedures. Tyler Elias MD 10/10/2019 Dictation software, Skyepack, was used which may contain error with similar sound words even after review. Portions of this chart may have been copied from previous notes for continuity of care. Daniella Arias RN - 10/09/2019 10:20 AM PDTFamily/ child care associate teacher updated by pt. Chelsi Orta PA-C - 10/09/2019 7:08 AM PDT [facility] Service: Vascular Surgery Progress Note Hospital [...] history of alcohol abuse who presented to [facility] with com plaints of cellulitis of right leg as well as enlarging pseudoaneurysm of right MANAGER BASKETBALL. He unde rwent aortobifemoral bypass in 1999. [...] scan which revealed enlargement of known right MANAGER BASKETBALL pseudoaneurysm. He was transferred to [facility] for evaluation and Vascular was [...] To be determined Code Status: Prior Chelsi Arteaga PA-C 10/09/2019 Associated attestation - Magdiel Arteaga MD - 10/09/2019 10:38 AM PDTI saw and evaluated th e patient, participated in the management, and agree with the findings in the above note. W e discussed the case and the treatment plan. Magdiel Arteaga MD Vascular Surgery Julian Gr MD - 10/09/2019 1:28 AM PDT [facility] Service: Lead Etl Developer Progress Note Jairo Theodore 59 y.o. Hospital [...] He was farnsworth sferred on 10/03/2019 from [facility] for right foot swelling and increase in [...] procedures. Julian Gr MD 10/09/2019 Dictation software, Skyepack, was used which may contain error with [...] by vascular surgery. R eport given to HAND EDGER. Pt safely transferred to room 24849. Incisions and dressings were teresa an and dry. Post tib and pedal pulses dopplerable. JADA SHINE RN Chyna Rashid MD - 10/08/2019 4:07 PM PDT [facility] Service: Hospitalist Progress Note Hospital Day: LOS: 5 days SUBJECTIVE Patient Summary: Mr. Theodore is a 59 yr old man active smoker 1ppday with alcohol abuse, hx of PAD, s/p right aorto bifemoral bypass in 1999 complicated by pseudoaneurysm, s/p revision, was transferred from [facility] ED for right foot swelling and increasing [...] endarterectomy, right to left femoral to femoral bypa ss on 10/07/19. Patient had an EBL of [...] 10/07/19 2100 113/71 121 17 98 % 10/07/192029 114/80 125 13 99 % 10/07/19 2000 [...] Chyna Shook MD 10/08/2019 4:07 PM PDT agdiel Arteaga MD - 8:53 AM PDTVascular surgery 10/08/2019 [...] retroperitoneal exposure. He has a good PT, maisha levi, and AT signal on the right, [...] Consent obtained. Magdiel Arteaga MD Vascular Surgery ada Chen RN - 10/07/2019 7:45 PM PDTPt arrived at 1800. SBPs in 70-80s upon arrival. N eo increased to 50mcg. Pedal pulses remain absent. Post tib pulses dopplerable. Medicated fo r pain with PRN tylenol. Remains on RA. HR 90-110s. JADA SHINE RN Chyna Rashid MD - 10/07/2019 3:55 PM PDT [facility] Service: Hospitalist Progress Note Hospital Day: LOS: 4 days SUBJECTIVE Patient Summary: Mr. Theodore is a 59 yr old man active smoker 1ppday with alcohol abuse, hx of PAD, s/p right aorto bifemoral bypass in 1999 complicated by pseudoaneurysm, s/p revision, was transferred from [facility] ED for right foot swelling and increasing size of the right groin pseud oaneurysm and was transferred here for cellulitis of the right foot and impending pseudoaneu rsym rupture. Events Overnight: Patient was seen today at bedside, s/p pseudoaneursym repair. EBL was 1L. He received 2 uni ts pRBCs and now on neosynephrine. Scheduled Medications [Apr] ampicillin-sulbactam 3 g Intravenous Q6H [Apr] aspirin 81 mg Oral Daily [Apr] atorvaSTATin 40 mg Oral Nightly [Apr] ceFAZolin 2 g Intravenous Prior to Incision [Apr] heparin 5,000 Units Subcutaneous Q12H [APR Hold] lisinopril 10 mg Oral Daily [Apr] nicotine 1 patch Transdermal Daily Continuous Infusions phenylephrine PRN Medications [Apr] acetaminophen, [Apr] calcium carbonate, heparin, [Apr] hydrocortisone, [Apr] labetalol, [Apr] LORazepam, Magnesium replacement - NON ICU AND Magnesi um AND [Apr] magnesium oxide AND [Apr] magnesium sulfate AND [Apr ] magnesium sulfate, [Apr] melatonin, [Apr] morphine, [APR Hold] ondansetron, [APR Hold] oxyCODONE-acetaminophen, Potassium replacement - NON ICU AND Potassium AND [] potassium chloride AND [Apr] potassium chloride, [Apr] senna, thrombi n (recombinant) OBJECTIVE Vital Signs: [...] A POSITIVE Antibody Screen NEGATIVE BB BAND GRINDING SUPERVISOR 0630 BB BAND Testing performed at [facility] [place] [address] UNIT # [id number] Product Code LEUKODEPLETED PC Unit Division 00 Unit Status ISSUED Transfusion Status OK TO TRANSFUSE CROSSMATCH RESULT COMPATIBLE UNIT # [id number] Product Code LEUKODEPLETED PC Unit Division 00 Unit Status ISSUED Transfusion Status OK TO TRANSFUSE CROSSMATCH RESULT COMPATIBLE UNIT # [id number] Product Code LEUKODEPLETED PC Unit Division 00 Unit Status ALLOCATED Transfusion Status OK TO TRANSFUSE CROSSMATCH RESULT COMPATIBLE UNIT # [id number] Product Code LEUKODEPLETED PC Unit Division 00 Unit Status ALLOCATED Transfusion Status OK TO TRANSFUSE CROSSMATCH RESULT COMPATIBLE Red Blood Cells (PRBC) - Crossmatch and Hold Result Value Ref Range Product Code RED CELL GROUP Units ordered 2 BLOOD BANK COMMENT ORDER RECEIVED IN BLOOD BANK. BLOOD BANK COMMENT Testing performed at [facility];[address] [place] [address];[place] [address] POC ISTAT, CG8, Arterial Result Value Ref [...] BANK. BLOOD BANK COMMENT Testing performed at [facility];[address] [place] [address];[place] [address] POC ISTAT, CG8, Arterial Result Value Ref [...] Final Report Signed by: Jacky Anderson, Nicolas Sign Date/Time: 10/04/2019 12:06 PM PROBLEM LIST [...] Milian PA-C - 10/07/2019 7:08 AM PDT [facility] Service: Vascular Surgery Progress Note Hospital Day: LOS: 4 days Post-Op Day: * No surgery date entered * SUBJECTIVE Patient Summary: The patient is a 59 y.o. male with significant past medical history of tobacco abuse, HTN, CAD, history of alcohol abuse who presented to [facility] with com plaints of cellulitis of right leg as well as enlarging pseudoaneurysm of right MANAGER BASKETBALL. He unde rwent aortobifemoral bypass in 1999. [...] scan which revealed enlargement of known right MANAGER BASKETBALL pseudoaneurysm. He was transferred to [facility] for evaluation and Vascular was [...] A POSITIVE Antibody Screen NEGATIVE BB BAND GRINDING SUPERVISOR 0630 BB BAND Testing [place] [facility] [place] [address];[place] [address] UNIT # [id number] Product Code LEUKODEPLETED PC Unit Division 00 Unit Status ALLOCATED Transfusion Status OK TO TRANSFUSE CROSSMATCH RESULT COMPATIBLE UNIT # [id number] Product Code LEUKODEPLETED PC Unit Division 00 Unit Status ALLOCATED Transfusion Status OK TO TRANSFUSE CROSSMATCH RESULT COMPATIBLE Red Blood Cells (PRBC) - Crossmatch and Hold Collection Time: 10/07/19 6:30 AM Result Value Ref Range Product Code RED CELL GROUP Units ordered 2 BLOOD BANK COMMENT ORDER RECEIVED IN BLOOD BANK. BLOOD BANK COMMENT Testing performed at [facility] [place] [address];[place] [address] PROBLEM LIST Principal Problem: Pseudoaneurysm right aorto [...] 10:34 AM PDT [facility] Service: Hospitalist Progress Note Hospital Day: LOS: 3 days SUBJECTIVE Patient Summary: Mr. Theodore is a 59 yr old man active smoker 1ppday with alcohol abuse, hx of PAD, s/p right aorto bifemoral bypass in 1999 complicated by pseudoaneurysm, s/p revision, was transferred from [facility] ED for right foot swelling and increasing [...] BP Temp Temp src Pulse Resp SpO2 10/06/19 0804 166/82 37 C (98.6 F) Oral [...] Code Status: Full Code Chyna Shook MD 10/06/2019 10:34 AM PDT Arlene Crum PA-C - 10/06/2019 9:32 AM PDT [facility] Service: Vascular Surgery Progress Note Hospital Day: LOS: 3 days Post-Op Day: * No surgery date entered * SUBJECTIVE Patient Summary: The patient is a 59 y.o. male with significant past medical history of tobacco abuse, HTN, CAD, history of alcohol abuse who presented to [facility] with com plaints of cellulitis of right leg as well as enlarging pseudoaneurysm of right MANAGER BASKETBALL. He unde rwent aortobifemoral bypass in 1999. [...] scan which revealed enlargement of known right MANAGER BASKETBALL pseudoaneurysm. He was transferred to [facility] for evaluation and Vascular was [...] chloride, clark a OBJECTIVE Vital Signs: Vitals: 10/06/19 0804 [...] Status: Full Code Arlene Lamar PA-C 10/06/2019 Haley Rashid MD - 10/05/2019 12:14 PM PDT [facility] Service: Hospitalist Progress Note Hospital Day: LOS: 2 days SUBJECTIVE Patient Summary: Mr. Theodore is a 59 yr old man active smoker 1ppday with alcohol abuse, hx of PAD, s/p right aorto bifemoral bypass in 1999 complicated by pseudoaneurysm, s/p revision, was transferred from [facility] ED for right foot swelling and increasing [...] repair on 10/06/19 NPO tonight Alcohol abuse CIWA protocol in place counseled [...] Crum PA-C - 10/05/2019 8:18 AM PDT [facility] Service: Vascular Surgery Progress Note Hospital Day: LOS: 2 days Post-Op Day: * No surgery date entered * SUBJECTIVE Patient Summary: The patient is a 59 y.o. male with significant past medical history of tobacco abuse, HTN, CAD, history of alcohol abuse who presented to [facility] with com plaints of cellulitis of right leg as well as enlarging pseudoaneurysm of right MANAGER BASKETBALL. He unde rwent aortobifemoral bypass in 1999. [...] scan which revealed enlargement of known right MANAGER BASKETBALL pseudoaneurysm. He was transferred to [facility] for evaluation and Vascular was [...] and open repair for his enlarging right MANAGER BASKETBALL pseudoaneurysm. He will need r etroperitoneal exposure [...] 9:15 AM PDT [facility] Service: Hospitalist Progress Note Hospital Day: LOS: 1 day SUBJECTIVE Patient Summary: Mr. Theodore is a 59 yr old man active smoker 1ppday with alcohol abuse, hx of PAD, s/p right aorto bifemoral bypass in 1999 complicated by pseudoaneurysm, s/p revision, was transferred from [facility] ED for right foot swelling and increasing [...] LYTY 0809 BB BAND Testing performed at [facility] [place] [address];[place] [address] ECG 12 lead Result Value Ref Range [...] check if blood cultures were taken at [facility] Prn pain medication Pseudoaneurysm right femoral artery Seen by vascular surgery, plan for repair on 10/06/19 Alcohol abuse CIWA protocol in place counseled Nicotine abuse On nicotine patch Counseled DVT prophylaxis with lovenox Disposition: For discharge once cleared by vascular surgery Code Status: Full Code Chyna Shook MD 10/04/2019 9:15 AM PDT documented in this enco unter H&P Notes LobitoLatoya castañeda, DO - 10/03/2019 10:22 PM PDTFormatting of this note might be different from t he original. [facility] Service: Hospitalist Admission History & Physical Date [...] who p resents as a transfer from [facility] ED for pseudoaneurysm of the right groin and celluli tis of the RLE. Per patient right pseudoaneurysm of the right groin has been getting bigger for at least a year. Right foot swelling for 5 days. Patient reports similar episodes at [facility] twice a year but this time it [...] LYTY 0809 BB BAND Testing performed at [facility] [place] [address];[place] [address] ECG 12 lead Result Value Ref Range INTERPRETATION TEXT Not Confirmed IMAGING No orders to display EKG at 2310: NSR, VR 72, Qtc 455. Data from [facility] -Ultrasound impression: 6.3 x 5.1 x 5.8 [...] delirium tremens, seizures from withdrawals or withdrawals -[facility] protocol initiated Tobacco abuse: -Quit smoking today smoke a pack of cigarettes per day -Nicotine patch Hypokalemia GI and DVT prophylaxis Code Status: Full Code Dictation software, Avtodoria, used which may contain errors for similar sounding words even a fter reviewed. Personal communication requested for any clarification Latoya Oh DO 10/03/2019 11:43 PM PDT documented in this encou nter Consult Notes Asia Almodovar, RD - 10/14/2019 8:12 AM PDTAssociated Order(s): [...] LETICIA Garcia RN CWON 10/10/19 13:12 PDT Tera Dubon MD - 10/08/2019 5:40 PM PDTFormatting of this note might be different from the [facility] Service: Lead Etl Developer Initial Consult Note Jairo Theodore 59 y.o. Date of Admission: 10/03/2019 Reason for Consultation: hypotension Requesting Physician: Dr. Arteaga, Vascular Surery History Obtained From: patient, chart review CHIEF COMPLAINT: right foot cellulitis Subjective HISTORY OF PRESENT ILLNESS The patient is a 59 y.o. male with significant past medical history of smoking, alcohol abu se, PAD ho right aortobifemoral bypass in 1999 complicated by pseudoaneurysm. He was transf erred 5 days ago from [facility] for right foot swelling and increase in [...] ENDARTERECTOMY FEMORAL; Surgeon: Magdiel Arteaga MD; [place] [facility] [place] FEMORAL-FEMORAL BYPASS GRAFT N/A 10/07/2019 Procedure: BYPASS GRAFT FEMORAL-FEMORAL; Surgeon: Magdiel Arteaga MD; [place] [facility] [place] OTHER SURGICAL HISTORY Right 10/07/2019 Procedure: REPAIR PSEUDOANEURYSM- FEMORAL; Surgeon: Magdiel Arteaga MD; [place] [facility] GABI N OR ALLERGIES Allergies Allergen Reactions [...] file Gets together: Not on file Attends spiritism service: Not on file Active member of [...] PROVIDER CONSUL T [facility] Service: Vascular Surgery Initial Consult Note Date of Admission: 10/03/2019 Date of Consultation: 10/04/2019 Reason for Consultation: Pseudoaneurysm of right MANAGER BASKETBALL Primary Care Physician: No Physician on file History Obtained From: Patient, chart review Code Status: Full Code CHIEF COMPLAINT: Right foot swelling and pain; Enlarging right femoral pseudoaneurysm HISTORY OF PRESENT ILLNESS The patient is a 59 y.o. male with significant past medical history of tobacco abuse, HTN, CAD, history of alcohol abuse who presented to [facility] with complaints of cellulitis o f right leg as well as enlarging pseudoaneurysm of right MANAGER BASKETBALL. He underwent aortobifemoral by pass in 1999. [...] which reveal ed enlargement of known right MANAGER BASKETBALL pseudoaneurysm. He was transferred to [facility] for evaluation and Vascular was consulted for management of his right groin pseudoaneurysm. Of note, he con tinues to drink more than a 6 pack per day and also is smoking 1 ppd currently. He elsie alvarez reports bilateral hip and pelvic "burning" which [...] sodium chloride 0.9% 100 mL/hr at 10/03/19 2195 PRN Medications acetaminophen, calcium carbonate, LORazepam, melatonin, [...] - The patient was transferr ed to [facility] for evaluation of his enlarging pseudoaneurysm, which has been the same size for the last year he reports. [facility] but was lost to any follow up. He has a complex history regarding his aortic repair and his left si de is chronically occluded per review of [facility] notes and angiographic report from 2007. His C TA with runoff yesterday showed enlarging right femoral pseudoaneurysm. Left MANAGER BASKETBALL shows no in flow but reconstitutes. The patient will require revascularization and open repair for his e nlarging right MANAGER BASKETBALL pseudoaneurysm. He will need retroperitoneal exposure with anticipated il iofemoral bypass as well as a right to left fem fem bypass. Will begin ASA 81 mg. He was alr federica started on statin therapy. We discussed need for abstinence from tobacco and alcohol. W maude give him a diet today and plan [...] Current Outpt/Agency/Support Groups: yes Community Agency Name: [facility] Home Health Disciplines: RN and PT - RN for wound care Equipment Durable Medical Equipment Provider: Home Equipment at Discharge: none Equipment Used at Home: cane, straight, single point Pharmacy Pharmacy/Medication needs: Pt is going to use Rx Pharmacy and will use his Medicare Part D benefits. DOCUMENTATION SPECIALIST and Pt called [facility], got him reestablished with the [facility], has not been seen since 2018 . Pt is now assigned to [facility]. Bob. DOCUMENTATION SPECIALIST p/c with Rudolph at [facility], states they will be calling Pt for follow up appt and will send referral for outpatient wound care. DOCUMENTATION SPECIALIST p/c with Carol at [facility], states she has received [place] orders in the p ast and will follow up with Dr. Bob's office. DOCUMENTATION SPECIALIST provided referral and faxed Home health referral. Electronically signed: PORTILLO MCGUIRE 10/16/2019 1:16 PM PDT lan of Care - Avinash Philip PT - 10/16/2019 11:55 AM PDT Physical Therapy Treatment Note Recommended discharge disposition: home with assist Post discharge physical therapy recommendation: home health Equipment Recommendations: none Barriers to community-based discharge None Recommended Frequency: 5 times/wk for 7 days with reassessment due by 10/16/19 Summary: Patient resting in bed, eager to DC home. Discussed DC planning, he is agreeable to RN/therapy. He declines needing an AD. Gait [...] Bed Mobility Supine to Sit, Level of Apache: modified independent Sit to Supine, Level of Apache: modified independent Safety Issues: decreased use of legs for bridging/pushing Transfers Sit-Stand, Level of Apache: supervised Stand-Sit, Level of Apache: supervised Tja-Qzmjh-Xvx, Assistive Device: none Gait Level of Apache: supervised Assistive Device: none Distance (feet): 40 Goals Reflects last filed data and may be from multiple contributors. All Bed Mobility Goal Most Recent Value LTG Status new at 10/09/2019 1108 LTG Apache Level modified independent at 10/09/2019 1108 LTG Assistive Device none at 10/09/2019 1108 All Transfers Goal Most Recent Value LTG Status new at 10/09/2019 1108 LTG Apache Level modified independent at 10/09/2019 1108 LTG Assistive Device 2 wheeled walker (FWW) at 10/09/2019 1108 Gait Goal Most Recent Value LTG Status new at 10/09/2019 1108 LTG Apache Level modified independent at 10/09/2019 1108 LTG Assistive Device 2 wheeled walker (FWW) at 10/09/2019 1108 LTG Distance (feet) 100 at 10/09/2019 1108 Stair Goal Most Recent Value LTG Status new at 10/09/2019 1108 LTG Apache Level modified independent at 10/09/2019 1108 LTG Assistive Device 1 rail at 10/09/2019 1108 LTG Number of Stairs 3 at 10/09/2019 1108 PT Time Calculation Individual Start Time: 1048 Individual Stop Time: 1113 Individual Total Time: 25 PT Total Treatment Time: 25 lan of Diana - Celeste Mendoza RN - 10/16/2019 11:06 AM PDTPt ready [...] check complete. Sigrid Calzada RN lan of Makenzie Scanlon PT - 10/14/2019 10:05 AM PDT Physical [...] anticipated d/c location of home with assistance. Ontremaine g benefit for acute care intervention with stair training to maximize d/c planning. Precautions Precautions/Limitations: falls Cognitive Assessment Mood/Behavior: calm, cooperative Bed Mobility Assistive Device: bed rails Supine to Sit, Level of Apache: modified independent Safety Issues: decreased use of legs for bridging/pushing Impairments: ROM decreased, strength decreased Transfers Sit-Stand, Level of Apache: stand by assist, verbal cues required Stand-Sit, Level of Apache: stand by assist, verbal cues required Ado-Kvape-Xnt, Assistive Device: 2 wheeled walker (FWW), none Toilet, Level of Apache: stand by assist, verbal cues required Toilet, Assistive Device: 2 wheeled walker (FWW), grab bars Gait Gait Comments: antalgic gait with flexed trunk posture and intermittent crouch position Level of Apache: stand by assist, verbal cues required(verbal cues [...] LTG Status new at 10/09/2019 1108 LTG Apache Level modified independent at 10/09/2019 1108 LTG Assistive Device none at 10/09/2019 1108 All Transfers Goal Most Recent Value LTG Status new at 10/09/2019 1108 LTG Apache Level modified independent at 10/09/2019 1108 LTG Assistive Device 2 wheeled walker (FWW) at 10/09/2019 1108 Gait Goal Most Recent Value LTG Status new at 10/09/2019 1108 LTG Apache Level modified independent at 10/09/2019 1108 LTG Assistive Device 2 wheeled walker (FWW) at 10/09/2019 1108 LTG Distance (feet) 100 at 10/09/2019 1108 Stair Goal Most Recent Value LTG Status new at 10/09/2019 1108 LTG Apache Level modified independent at 10/09/2019 1108 LTG [...] lan of Care - Mundo Novoa, PT, ARLETTE T - 10/13/2019 10:39 AM PDT Physical Therapy Treatment Note Recommended discharge disposition: home with assist(Pt. continues to report that he will limon ve 24/ support) Post discharge physical therapy recommendation: home [...] Bed Mobility Supine to Sit, Level of Apache: minimal assist (75% patient effort) Transfers Sit-Stand, Level of Apache: minimal assist (75% patient effort) Gait Level of Apache: minimal assist (75% patient effort) Assistive Device: [...] LTG Status new at 10/09/2019 1108 LTG Apache Level modified independent at 10/09/2019 1108 LTG Assistive Device none at 10/09/2019 1108 All Transfers Goal Most Recent Value LTG Status new at 10/09/2019 1108 LTG Apache Level modified independent at 10/09/2019 1108 LTG Assistive Device 2 wheeled walker (FWW) at 10/09/2019 1108 Gait Goal Most Recent Value LTG Status new at 10/09/2019 1108 LTG Apache Level modified independent at 10/09/2019 1108 LTG Assistive Device 2 wheeled walker (FWW) at 10/09/2019 1108 LTG Distance (feet) 100 at 10/09/2019 1108 Stair Goal Most Recent Value LTG Status new at 10/09/2019 1108 LTG Apache Level modified independent at 10/09/2019 1108 LTG [...] participation. Pt with an i ncontinent BM. CHARGE MASTER ANALYST and PT assisting with mobility and pericare. [...] Transfers Additional Documentation: toilet Sit-Stand, Level of Apache: minimal assist (75% patient effort) Stand-Sit, Level of Apache: minimal assist (75% patient effort) Dxk-Qrnej-Tle, Assistive Device: 2 wheeled walker (FWW) Toilet, Level of Apache: minimal assist (75% patient effort) Toilet, Assistive Device: 2 wheeled walker (FWW) Safety Issues: loses balance backward, weight-shifting ability decreased, step length decre ased, sequencing ability decreased, balance decreased during turns Impairments: ROM decreased, strength decreased, impaired balance Gait Gait Comments: reduced step length BLE, excessive trunk flexion, reduced weight bearing RLE , avoidance COG over HAN Level of Apache: minimal assist (75% patient effort) Assistive Device: 2 wheeled walker (FWW) Distance (feet): 15x2 Goals Reflects last filed data and may be from multiple contributors. All Bed Mobility Goal Most Recent Value LTG Status new at 10/09/2019 1108 LTG Apache Level modified independent at 10/09/2019 1108 LTG Assistive Device none at 10/09/2019 1108 All Transfers Goal Most Recent Value LTG Status new at 10/09/2019 1108 LTG [place] Level modified independent at 10/09/2019 1108 LTG Assistive Device 2 wheeled walker (FWW) at 10/09/2019 1108 Gait Goal Most Recent Value LTG Status new at 10/09/2019 1108 LTG Apache Level modified independent at 10/09/2019 1108 LTG Assistive Device 2 wheeled walker (FWW) at 10/09/2019 1108 LTG Distance (feet) 100 at 10/09/2019 1108 Stair Goal Most Recent Value LTG Status new at 10/09/2019 1108 LTG Apache Level modified independent at 10/09/2019 1108 LTG [...] Goal: Absence of Fall and Fall-Related Injury 10/10/2019 1848 by Daniella Coleman, HARRISON Outcome: Ongoing, progressing Note: Room remain free [...] dose twice during this shift. lan of Care - Kathie Yun, OT Student - 10/10/2019 3:45 PM PDTFormatting of this note might be diff erent from the original. Occupational Therapy Initial Evaluation Note Recommended discharge disposition: home with assist, other (see comments)(pending progress ) Post discharge occupational therapy recommendation: home health Equipment Recommendations: 2 wheeled walker (FWW), shower chair, biology manager, sock aide, long handled sponge, long handled [...] cheese snadwhiches since being a t the [facility] despite his chart saying he has been [...] bed rails Supine to Sit, Level of Apache: minimal assist (75% patient effort) Sit to Supine, Level of Apache: moderate assist (50% patient effort) Safety Issues: decreased use of legs for bridging/pushing, decreased use of arms for pushin g/pulling Impairments: ROM decreased, strength decreased, postural control impaired, pain Transfers Additional Documentation: sit to/from stand Sit-Stand, Level of Apache: minimal assist (75% patient effort) Stand-Sit, Level of Apache: maximal assist (25% patient effort) Mjp-Vvkvp-Yen, Assistive Device: 2 wheeled walker (FWW), gait belt Safety Issues: loses balance backward, weight-shifting ability decreased, step length decre ased, sequencing ability decreased, balance decreased during turns Impairments: ROM decreased, strength decreased, impaired balance ROM Comments: WFL Strength Comments: WFL. B monotype operator strength 4/5. B UE MMT 4/5 except for biceps 3+/5 Balance Sitting Balance: Static: good balance Sitting Balance: Dynamic: good balance Standing Balance: Static: poor balance Standing Balance: Dynamic: poor balance Goals Reflects last filed data and may be from multiple contributors. LB Dressing Goal Most Recent Value LTG Status new at 10/10/2019 154 LTG Apache Level minimum assist (75% patient effort), set up required at 10/10/20191544 LTG Adaptive Equipment biology manager, sock-aid at 10/10/20191544 Toilet Transfer Goal Most Recent Value LTG Status new at 10/10/2019 154 LTG Apache Level minimum assist (75% patient effort) at 10/10/2019 154 LTG Assistive Device 2 wheeled walker (FWW), grab bars at 10/10/20191544 Associated attestation - Chiquita Ramirez OTR/L - [...] 10/10/2019 12:07 PM PDTPatient evaluated for tr sophia out of the ICU. Report was called to Dr. Pack who has graciously accepted the patient to the hospitalist service. Patient to be transferred to 9th floor per vascular dunn rgery's request. Orders have been placed for transfer. GLEN Briggs 10/10/2019 12:08 PM PDT lan of Diana - RamoneMundo smith MD - 10/10/2019 12:04 PM PDTPatient seen and examined briefly as day progress note has been made, at bedside in ICU on turnover by electrical subcontractor. Patient stat es he feels better, no headache, no dizziness no faintness, blood pressures and vital signs have been stable no fever. We will continue present course of treatments, and will continue to follow closely. lan of Care - Makenzie Hunter PT - 10/10/2019 11:13 [...] bed rails Supine to Sit, Level of Apache: minimal assist (75% patient effort) Transfers Bed-Chair, Level of Apache: minimal assist (75% patient effort) Ddl-Oijot-Thc, Assistive Device: 2 wheeled walker (FWW), gait belt Sit-Stand, Level of Apache: minimal assist (75% patient effort), stand by assist Stand-Sit, Level of Apache: minimal assist (75% patient effort), stand by assist Gait Gait Comments: reduced step length BLE, excessive trunk flexion, reduced weight bearing RLE , avoidance COG over HAN Level of Apache: minimal assist (75% patient effort), verbal cues [...] LTG Status new at 10/09/2019 1108 LTG Apache Level modified independent at 10/09/2019 1108 LTG Assistive Device none at 10/09/2019 1108 All Transfers Goal Most Recent Value LTG Status new at 10/09/2019 1108 LTG [place] Level modified independent at 10/09/2019 1108 LTG Assistive Device 2 wheeled walker (FWW) at 10/09/2019 1108 Gait Goal Most Recent Value LTG Status new at 10/09/2019 1108 LTG Apache Level modified independent at 10/09/2019 1108 LTG Assistive Device 2 wheeled walker (FWW) at 10/09/2019 1108 LTG Distance (feet) 100 at 10/09/2019 1108 Stair Goal Most Recent Value LTG Status new at 10/09/2019 1108 LTG Apache Level modified independent at 10/09/2019 1108 LTG Assistive Device 1 rail at 10/09/2019 1108 LTG Number of Stairs 3 at 10/09/2019 1108 PT Time Calculation Individual Start Time: 1113 Individual Stop Time: 1220 Individual Total Time: 67 PT Total Treatment Time: 67 lan of Care - Viv Trinh MSW - 10/10/2019 10:10 AM PDTAttended morning rounds. Reviewed PT notes. PT is recommending home with assist and HH. Lives with roommate who reportedly plans to help care for pt after d/c. Contact Information Family Contact Information: Name: Lele Conley (Roommate) [id number] signed by PORTILLO Varner at 10/10/2019 10:13 [...] HOB elevated Supine to Sit, Level of Apache: maximal assist (25% patient effort) Safety Issues: decreased use of legs for bridging/pushing, impaired trunk control for bed m obility Impairments: pain, strength decreased, ROM decreased Transfers Additional Documentation: sit to/from stand, bed to/from chair Bed-Chair, Level of Apache: moderate assist (50% patient effort) Oiw-Ziiuz-Elt, Assistive Device: 2 wheeled walker (FWW) Sit-Stand, Level of Apache: minimal assist (75% patient effort) Stand-Sit, Level of Apache: minimal assist (75% patient effort) Ogi-Ecttr-Xcd, Assistive Device: 2 wheeled walker (FWW) Safety [...] LTG Status new at 10/09/2019 1108 LTG Apache Level modified independent at 10/09/2019 1108 LTG Assistive Device none at 10/09/2019 1108 All Transfers Goal Most Recent Value LTG Status new at 10/09/2019 1108 LTG [place] Level modified independent at 10/09/2019 1108 LTG Assistive Device 2 wheeled walker (FWW) at 10/09/2019 1108 Gait Goal Most Recent Value LTG Status new at 10/09/2019 1108 LTG [place] Level modified independent at 10/09/2019 1108 LTG Assistive Device 2 wheeled walker (FWW) at 10/09/2019 1108 LTG Distance (feet) 100 at 10/09/2019 1108 Stair Goal Most Recent Value LTG Status new at 10/09/2019 1108 LTG Apache Level modified independent at 10/09/2019 1108 LTG Assistive Device 1 rail at 10/09/2019 1108 LTG Number of Stairs 3 at 10/09/2019 1108 lan of Care - Kimmie reinoso, Tyesha Cruz, RD - 10/09/2019 10:36 AM PDT NUTRITION [...] 1.7 Estimated Energy Needs Energy Calorie Requirements: 4613-9444(28-32 kcal/kg per 54.3 kg admit wt ) [...] Ongoing, progressing Flowsheets (Taken 10/09/2019 1024) Participants: correctional counselor/case manager dietitian/nutrition services advanced practice nurse nursing pharmacy [...] started on clear liquid diet. lan of [facility] Viv Santos MSW - 10/09/2019 9:44 AM PDTAttended morning rounds. Pt transferred to ICU post -op for repair of thrombosed fem-fem artery bypass. Progressing. Await PT to julissa and alissa tinajero. Has no PCP per CM note and FS. Insurance is [facility]. lan of [facility] Urszula Garcia RN - 10/09/2019 8:02 AM PDTProblem: Adult [...] to tolerate turns related to having p ainWalter Seaman RN. reatme nt Plan - Amanda Tim RN - 10/08/2019 7:52 PM PDT12 hr chart check complete Electronic ally signed by Amanda Tim RN at 10/08/2019 7:53 PM PDTTreatment Plan - Amanda Tim RN - 10/08/2019 5:00 PM PDTPt responded to IVF bolus. Nurse held IV pain meds due to hypo tension. Pt has minimal pain. Labs sent H/H is stable/ Nurse will wean off Wade. Electronical ly signed by Amanda Tim RN at 10/08/2019 7:52 PM PDTBrief Op Note - Magdiel Arteaga MD - 10/08/2019 2:31 PM PDT BRIEF OPERATIVE NOTE [facility] Pt. Name/Age/: Jairo Theodore 59 y.o. 1960 Med. Record Number: [id number] Date of admission: 10/03/2019 Date of Operation/Procedure: [...] disease (HCC) [I73.9] Surgeon: Magdiel Arteaga MD Engraved Roller Inspector: Maicol Abel PA-C Anesthesia Provider(s): Anesthesiologist: Orlando Ambriz DO POLICY WRITER SALES: Som Garcia CRNA Anesthesia Type: Anesthesia type not filed in the log. Procedure(s): THROMBECTOMY / EMBOLECTOMY of fem fem bypass BILATERAL BYPASS GRAFT FEMORAL-POPLITEAL WITH 6 MM PTFE ANGIOGRAM - EXTREMITY BILATERAL ([id number]) Operative Findings: Thrombosed femoral to femoral artery [...] Implant Name Type Inv. Item Serial No. Burning Supervisor Lot No. LRB No. Used Action GRAFT VAS PROPATEN 6-80MM - [id number] Graft GRAFT VAS PROPATEN 6-80MM [id number] [facility] NA N/A 1 Implanted GRAFT VAS PROPATEN 6-80MM - [id number] Graft GRAFT VAS PROPATEN 6-80MM [id number] [facility] NA N/A 1 Implanted Counts: Instrument, sponge, and needle counts were correct prior to closure and at the con clusion of the case. Complications: None Disposition: The patient was taken to PACU Immediate Post-Operative Condition: Stable Electronically signed by: Magdiel Arteaga MD, 10/08/2019, 2:31 PM PDT p Note - Magdiel Arteaga MD - 10/08/2019 10 :06 AM PDT [facility] OPERATIVE REPORT PATIENT NAME: Jairo Theodore AGE: [...] the femorofemoral bypass. Using 2 CV 6 [place]-Jamie sutures the 6 mm bypass was anastomos [...] astomosis was created with 2 CV 6 [place]-Jamie sutures. Prior to completing the anastomosis the [...] an antibiotic solution. Hemostasis was achieved. 7 Frisian drains were placed in both groins and [...] Magdiel Arteaga MD Vascular Surgery Dictation software, Skyepack, used which may contain error for similar sounding words even af ter review. Personal communication requested for any clarification. Electronically signed by: Magdiel Arteaga MD, 10/09/2019 10:[address] [facility] lan of Care - Aggie Hayden RN [...] Arteaga MD - 10/07/2019 7:00 PM PDT [facility] OPERATIVE REPORT PATIENT NAME: Jairo Theodore [...] vanced a wire and placed a 7 Frisian sheath. We again attempted to select out [...] femoral endarterectomy was performed w ith a [place] elevator. There was good backbleeding from the [...] common femoral endarterectomy was performed using the [place] elevator. After performing the endarterect carlyle there [...] tissue was closed with a 3-0 Vicryl. Tasha were used to close the skin. I then tu rned my attention to closing the groin wounds. The groin wounds were copiously irrigated. There was good hemostasis. 7 Frisian flat AUGUSTUS drains were placed in both [...] Magdiel Arteaga MD Vascular Surgery Dictation software, Skyepack, used which may contain error for similar sounding words even af ter review. Personal communication requested for any clarification. Electronically signed by: Magdiel Arteaga MD, 10/09/2019 9:[address] [facility] rief Op Note - Magdiel Arteaga MD - 10/07/2019 4:30 PM PDTFormatting of this note might be different from the or iginal. BRIEF OPERATIVE NOTE [facility] Pt. Name/Age/: Jairo Theodore 59 y.o. 1960 Med. Record Number: [id number] Date of admission: 10/03/2019 Date of Operation/Procedure: 10/07/2019 Preoperative Diagnosis: 1. Large right groin pseudoaneurysm 2. Peripheral arterial disease Postoperative Diagnosis: * Pseudoaneurysm (HCC) [I72.9] Surgeon: Magdiel Arteaga MD Engraved Roller Inspector: Maicol Abel PA-C Anesthesia Provider(s): Anesthesiologist: Rudolph Lowery MD POLICY WRITER SALES: Neville Rush CRNA Anesthesia Type: General Procedure(s): [...] Implant Name Type Inv. Item Serial No. Burning Supervisor Lot No. LRB No. Used Action GRAFT GORE PROPATEN [id number] - [id number] Graft GRAFT GORE PROPATEN [id number] [employer] [facility] NA Right 1 Implanted GRAFT HEMGRD KNIT [id number] - [id number] Graft GRAFT HEMGRD KNIT [id number] [employer] - MAQU [id number] Right 1 Implanted Counts: Instrument, sponge, and needle counts were correct prior to closure and at the con clusion of the case. Complications: None Disposition: The patient was taken to PACU Immediate Post-Operative Condition: Stable Electronically signed by: Magdiel Artegaa MD, 10/07/2019, 4:31 PM PDT lan of [facility] Asia Snow RN - 10/07/19 20 6:50 AM PDTUneventful noc, up to the BR several times, VSS with one SBP in 170s recheck [id number]. Report given to preop nurse and [id number] [...] and ready for transport . lan of [facility] - Diamond Yang RN - 10/06/2019 12:29 PM PDT Problem: Fall Injury Risk Goal: Absence of Fall and Fall-Related Injury Outcome: Ongoing, progressing Intervention: Identify and Manage Contributors to Fall Injury Risk Flowsheets (Taken 10/05/20192019 by Candace Manriquez, RN) Self-Care Promotion: independence encouraged Note: Patient has been injury free while in the hospital. Patient has his call light with i n reach lan of [facility] - Candace Chavira RN - 10/06/2019 6:15 AM PDTProblem: Adult Inpatient Plan of Care Goal: Plan of Care Review Outcome: Ongoing, progressing Problem: Fall Injury Risk Goal: Absence of Fall and Fall-Related Injury Outcome: Ongoing, progressing End of shift note: Patient has been NPO since midnight. No acute changes to initial assessment overnight. Chart review and 24 hour chart check complete. lan of [facility] - Zuleyka Valdovinos RN - 10/05/2019 5:28 PM PDTEND OF [...] and Optimize Oral Intake Flowsheets (Taken 10/05/2019 6005) Oral Nutrition Promotion: calorie dense foods provided Note: Pt tolerating oral liquids well. NPO at midnight. lan of [facility] Oriana Mar RN - 10/04/2019 8:07 PM [...] chart check and audit complete. lan of [facility] Zuleyka Ramos RN - 10/04/2019 6:55 PM [...] the bathroom clear of clutter. lan of [facility] Carol Olivares MSW - 10/04/2019 12:52 PM [...] Notes: Pt resides with his friend in [place]. Pt is independent - no caregiver, home health, oxy gen / CPAP, outpatient services, or blood thinners. Pt reports he uses a cane. Pt reports th at he drinks about a six-pack a day. Pt denies resources for ETOH, reports that he will drin k "until I ". Electronically signed: PORTILLO HERRERA 10/04/2019 12:53 PM PDT lan of Care - Juli Sims, SHERWIN - 10/04/2019 11:16 AM PDTFormatting of this note might be differ ent from the original. NUTRITION NOTE Summary Triggered for screening secondary to IBW <85%. 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 Pt scheduled for pseudoaneurysm repair on 10/04. [...] BUN 7* CREA 0.60* Estimated Energy Needs 6453-5633 kcal/day (28-32 kcal/kg per 54.3 kg admit [...] Required Follow Up: 5 days(M; 10/08) Juli Hayes MS-MPH, RDN 10/04/2019 11:16 AM PDT lan of [facility] - Oriana Vuong RN - 10/04/2019 1:26 [...] in th is encounter Plan of Treatment +--------+ + + + + | Date | Type | Specialty | Care Team | Description | +--------+ + + + + | 11/07/ | Appointment | Radiology | Ricci De León DNP | | | 2019 | | | [address] | | | | | | [place] | | | | | | [id number] | | | | | | | | +--------+ + + + + | 11/07/ | Office | Vascular Surgery | Ricci De León DNP | | 2019 | Visit | | [address] | | | | | | [place] | | | | | | [address] | | | | | | | | +--------+ + + + + + +---------+--------+ + + [...] | | Differential | | e | (HCC) right aorto | 10/23/2019, Expires: | | | | | femoral bypass | 10/15/2020 | + +---------+--------+ + + | Phosphorus | Lab | Routin | Pseudoaneurysm | 1 Occurrences | | | | e | (HCC) right aorto | starting 10/16/2019 | | [...] | Health | Referral | e | ([facility]) right aorto | | | | | | femoral bypass | | | | | | Cellulitis of right | | | | | | foot 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 ([facility]) | | | | | | Post-operative [...] + +--------+ + + + | POC ISLILLIE, CG8, | Routin | 10/08/2019 | | Results for this | | ARTERIAL | e | 1:22 PM | | procedure are in the | | | | PDT | | results section. | + +--------+ + + + | ANGIOGRAM - | | 10/08/2019 | Pseudoaneurysm | | | EXTREMITY BILATERAL | | 9:22 AM | ([facility]) Peripheral | | | (97347) | | PDT | arterial disease | | | | | | (HCC) | | + +--------+ + + + | BYPASS GRAFT | | 10/08/2019 | Pseudoaneurysm | | | FEMORAL-POPLITEAL | | 9:22 AM | ([facility]) Peripheral | | | | | PDT | arterial disease | | | | | | ([facility]) | | + +--------+ + + + | THROMBECTOMY / | | 10/08/2019 | Pseudoaneurysm | | | EMBOLECTOMY | | 9:22 AM | ([facility]) Peripheral | | | | | PDT | arterial disease | | | | | | (HCC) | | + +--------+ + + + [...] | + +--------+ + + + | NOAH ASPENEDWARD MOREIRA, | Routin | 10/07/2019 | | Results [...] | FEMORAL-FEMORAL | | 7:07 AM | ([facility]) | | | | | PDT | | | + +--------+ + + + +---+--------+ | | Case | | | Notes | | | . | | | Chandler | | | [...] | FEMORAL | | 7:07 AM | (HCC) | | | | | PDT | | | + +---+ + +---+ +---+--------+ | | Case | | | Notes | | | Dr. | | | Chandler | | | [...] LABORATORY | | | | performed at [facility], [address] | | | | | [address], | | | | | | [place] [address] | | | | + + + + + + + + | Specimen | + + | Blood | + + + + + + + | Performing | Address | City/State/Zipcode | Phone Number | | Organization | | | | + + + + + | [facility] | [address] | [place] [address] | [phone] | + + + + + Magnesium (10/16/2019 5:11 AM PDT) + + + + + + | Component | Value | Ref Range | Performed | Pathologist | | | | | At | Signature | + + + + + + | Magnesium | 1.7Comment: Testing | 1.7 - 2.4 mg/dL | [facility] | | | | performed at [facility];[address] | | LABORATORY | | | | [address];[place] | | | | | | [address] | | | | + + + + + + + + | Specimen | + + | Blood | + + + + + + + | Performing | Address | City/State/Zipcode | Phone Number | | Organization | | | | + + + + + | [facility] | [address] | [place] [address] | [phone] | + + + + + Potassium (10/16/2019 5:11 AM PDT) + + + + + + | Component | Value | Ref Range | Performed | Pathologist | | | | | At | Signature | + + + + + + | K | 3.0 (L)Comment: Testing | 3.5 - 4.9 | [facility] | | | | performed at [facility];[address] | mmol/L | LABORATORY | | | | [address];[place] | | | | | | [address] | | | | + + + + + + + + | Specimen | + + | Blood | + + + + + + + | Performing | Address | City/State/Zipcode | Phone Number | | Organization | | | | + + + + + | [facility] | [address] | [place] [address] | [phone] | + + + + + CBC [...] | 10.6Comment: NO NORMAL | fl | [facility] | | | | RANGE ESTABLISHEDTesting | | LABORATORY | | | | performed at [facility], [address] | | | [address] | [address], | | | | | | [place] [address] | | | | + + + + + + + + | Specimen | + + | Blood | + + + + + + + | Performing | Address | City/State/Zipcode | Phone Number | | Organization | | | | + + + + + | [facility] | [address] | [place] [address] | [phone] | + + + + + Magnesium (10/15/2019 5:13 AM PDT) + + + + + + | Component | Value | Ref Range | Performed | Pathologist | | | | | At | Signature | + + + + + + | Magnesium | 1.9Comment: Testing | 1.7 - 2.4 mg/dL | [facility] | | | | performed at [facility];[address] | | LABORATORY | | | | [facility];[place], [place] | | | | | | [address] | | | | + + + + + + + + | Specimen | + + | Blood | + + + + + + + | Performing | Address | City/State/Zipcode | Phone Number | | Organization | | | | + + + + + | [facility] | [address] | [place] [address] | [phone] | + + + + + Basic [...] 7.5 (L) | 8.5 - 10.5 | [facility] | | | | | mg/dL | LABORATORY | | + + + + + + | Estimated | >60Comment: GFR <60: | >60 | [facility] | | | GFR | [...] | | | | | | [facility] traceable | | | | | | equation.Testing | | | | | | performed at [facility], [address] | | | | | | [facility], | | | | | | [place] [address] | | | | + + + + + + + + | Specimen | + + | Blood | + + + + + + + | Performing | Address | City/State/Zipcode | Phone Number | | Organization | | | | + + + + + | [facility] | [address] | [place] [address] | [phone] | + + + + + Potassium (10/14/2019 3:28 PM PDT) + + + + + + | Component | Value | Ref Range | Performed | Pathologist | | | | | At | Signature | + + + + + + | K | 3.3 (L)Comment: Testing | 3.5 - 4.9 | [facility] | | | | performed at [facility];[address] | mmol/L | LABORATORY | | | | [address];[place] | | | | | | [address] | | | | + + + + + + + + | Specimen | + + | Blood | + + + + + + + | Performing | Address | City/State/Zipcode | Phone Number | | Organization | | | | + + + + + | [facility] | [address] | [place] [address] | [phone] | + + + + + Magnesium (10/14/2019 3:28 PM PDT) + + + + + + | Component | Value | Ref Range | Performed | Pathologist | | | | | At | Signature | + + + + + + | Magnesium | 2.1Comment: Testing | 1.7 - 2.4 mg/dL | [facility] | | | | performed at [facility];[address] | | LABORATORY | | | | [address];[place], [place] | | | | | | [address] | | | | + + + + + + + + | Specimen | + + | Blood | + + + + + + + | Performing | Address | City/State/Zipcode | Phone Number | | Organization | | | | + + + + + | [facility] | [address] | [place] [address] | [phone] | + + + + + Phosphorus (10/14/2019 3:28 PM PDT) + + + + + + | Component | Value | Ref Range | Performed | Pathologist | | | | | At | Signature | + + + + + + | Phosphorus | 1.3 (L)Comment: Testing | 2.3 - 4.8 mg/dL | [facility] | | | | performed at [facility];[address] | | LABORATORY | | | | [facility];[place], [place] | | | | | | [address] | | | | + + + + + + + + | Specimen | + + | Blood | + + + + + + + | Performing | Address | City/State/Zipcode | Phone Number | | Organization | | | | + + + + + | [facility] | [address] | [place] [address] | [phone] | + + + + + CBC [...] | 10.5Comment: NO NORMAL | fl | [facility] | | | | RANGE ESTABLISHEDTesting | | LABORATORY | | | | performed at [facility], [address] | | | | | [address], | | | | | | [place] [address] | | | | + + + + + + + + | Specimen | + + | Blood | + + + + + + + | Performing | Address | City/State/Zipcode | Phone Number | | Organization | | | | + + + + + | [facility] | [address] | [place] [address] | [phone] | + + + + + Magnesium (10/14/2019 5:49 AM PDT) + + + + + + | Component | Value | Ref Range | Performed | Pathologist | | | | | At | Signature | + + + + + + | Magnesium | 1.6 (L)Comment: Testing | 1.7 - 2.4 mg/dL | [facility] | | | | performed at [facility];[address] | | LABORATORY | | | | [facility];[place], [place] | | | | | | [address] | | | | + + + + + + + + | Specimen | + + | Blood | + + + + + + + | Performing | Address | City/State/Zipcode | Phone Number | | Organization | | | | + + + + + | [facility] | [address] | [place] [address] | [phone] | + + + + + Basic [...] | >60Comment: GFR <60: | >60 | [facility] | | | GFR | [...] | | | | | performed at [facility], [address] | | | | | | [facility], | | | | | | [place] [address] | | | | + + + + + + + + | Specimen | + + | Blood | + + + + + + + | Performing | Address | City/State/Zipcode | Phone Number | | Organization | | | | + + + + + | [facility] | [address] | [place] [address] | [phone] | + + + + + Potassium (10/13/2019 11:07 AM PDT) + + + + + + | Component | Value | Ref Range | Performed | Pathologist | | | | | At | Signature | + + + + + + | K | 3.5Comment: Testing | 3.5 - 4.9 | [facility] | | | | performed at [facility];[address] | mmol/L | LABORATORY | | | | [address];[place] | | | | | | [address] | | | | + + + + + + + + | Specimen | + + | Blood | + + + + + + + | Performing | Address | City/State/Zipcode | Phone Number | | Organization | | | | + + + + + | [facility] | [address] | [place] [address] | [phone] | + + + + + Potassium (10/13/2019 4:37 AM PDT) + + + + + + | Component | Value | Ref Range | Performed | Pathologist | | | | | At | Signature | + + + + + + | K | 3.5Comment: Testing | 3.5 - 4.9 | [facility] | | | | performed at [facility];[address] | mmol/L | LABORATORY | | | | [address];[place], [place] | | | | | | [address] | | | | + + + + + + + + | Specimen | + + | Blood | + + + + + + + | Performing | Address | City/State/Zipcode | Phone Number | | Organization | | | | + + + + + | [facility] | [address] | [place] [address] | [phone] | + + + + + Magnesium (10/13/2019 4:37 AM PDT) + + + + + + | Component | Value | Ref Range | Performed | Pathologist | | | | | At | Signature | + + + + + + | Magnesium | 1.7Comment: Testing | 1.7 - 2.4 mg/dL | [facility] | | | | performed at [facility] | | LABORATORY | | | | [address];[place] | | | | | | [address] | | | | + + + + + + + + | Specimen | + + | Blood | + + + + + + + | Performing | Address | City/State/Zipcode | Phone Number | | Organization | | | | + + + + + | [facility] | [address] | [place] [address] | [phone] | + + + + + Basic [...] | >60Comment: GFR <60: | >60 | [facility] | | | GFR | [...] | | | | | | [facility] traceable | | | | | | equation.Testing | | | | | | performed at [facility];[address] | | | | | | [facility] [facility] [address];[place], [place] | | | | | | [address] | | | | + + + + + + + + | Specimen | + + | Blood | + + + + + + + | Performing | Address | City/State/Zipcode | Phone Number | | Organization | | | | + + + + + | [facility] | [address] | [place] [address] | [phone] | + + + + + Hemoglobin [...] [facility] | | | | performed at [facility];[address] | | LABORATORY | | | | [address];[place], [place] | | | | | | [address] | | | | + + + + + + + + | Specimen | + + | Blood | + + + + + + + | Performing | Address | City/State/Zipcode | Phone Number | | Organization | | | | + + + + + | [facility] | [address] | [place] [address] | [phone] | + + + + + Potassium (10/12/2019 4:28 PM PDT) + + + + + + | Component | Value | Ref Range | Performed | Pathologist | | | | | At | Signature | + + + + + + | K | 3.3 (L)Comment: Testing | 3.5 - 4.9 | [facility] | | | | performed at [facility];[address] | mmol/L | LABORATORY | | | | [address];[place] | | | | | | [address] | | | | + + + + + + + + | Specimen | + + | Blood | + + + + + + + | Performing | Address | City/State/Zipcode | Phone Number | | Organization | | | | + + + + + | [facility] | [address] | [place] [address] | [phone] | + + + + + Clostridium [...] C. | Negative for toxigenic | | [facility] | | | difficile, | C.difficile.Comment: | | LABORATORY | | | Interp | Testing performed at | | | | | | [facility];[address] | | | | | | [address];[place] [address] | | | | + + + + + + + + | Specimen | + + | Stool - Stool | | specimen (specimen) | + + + + + + + | Performing | Address | City/State/Zipcode | Phone Number | | Organization | | | | + + + + + | [facility] | [address] | [place] [address] | [phone] | + + + + + Potassium (10/12/2019 11:02 AM PDT) + + + + + + | Component | Value | Ref Range | Performed | Pathologist | | | | | At | Signature | + + + + + + | K | 3.3 (L)Comment: Testing | 3.5 - 4.9 | [facility] | | | | performed at [facility];[address] | mmol/L | LABORATORY | | | | [address];[place], [place] | | | | | | [address] | | | | + + + + + + + + | Specimen | + + | Blood | + + + + + + + | Performing | Address | City/State/Zipcode | Phone Number | | Organization | | | | + + + + + | [facility] | [address] | [place] [address] | [phone] | + + + + + Type [...] + + + | BB BAND | [id number] | | [facility] | | | | | | LABORATORY | | + + + + + + | UNIT # | [id number] | | [facility] | | | | [...] | | | RESULT | performed at [facility] | | LABORATORY | | | | [address];[place], [place] | | | | | | [address] | | | | + + + + + + | UNIT # | [id number] | | [facility] | | | | [...] | + + + + + | [facility] | [address] | [place] [address] | [phone] | + + + + + Red [...] BANK | Testing performed at | | KT | | | COMMENT | [facility];[address] [facility] | | LABORATORY | | | | [address]vd;[place] [address] | | | | + + + + + + + + | Specimen | + + | | + + + + + + + | Performing | Address | City/State/Zipcode | Phone Number | | Organization | | | | + + + + + | [facility] | [address] | [place] [address] | [phone] | + + + + + Magnesium (10/12/2019 4:08 AM PDT) + + + + + + | Component | Value | Ref Range | Performed | Pathologist | | | | | At | Signature | + + + + + + | Magnesium | 1.9Comment: Testing | 1.7 - 2.4 mg/dL | [facility] | | | | performed at [facility];[address] | | LABORATORY | | | | [address];[place] | | | | | | [address] | | | | + + + + + + + + | Specimen | + + | Blood | + + + + + + + | Performing | Address | City/State/Zipcode | Phone Number | | Organization | | | | + + + + + | [facility] | [address] | [place] [address] | [phone] | + + + + + Comprehensive [...] 37 | 10 - 65 U/L | [facility] | | | | | | LABORATORY | | + + + + + + | Estimated | >60Comment: GFR <60: | >60 | [facility] | | | GFR | [...] | | | | | | MDRD IDDE traceable | | | | | | equation.Testing | | | | | | performed at [facility] | | | | | | [facility];[place], [place] | | | | | | [address] | | | | + + + + + + + + | Specimen | + + | Blood | + + + + + + + | Performing | Address | City/State/Zipcode | Phone Number | | Organization | | | | + + + + + | [facility] | [address] | [place] [address] | [phone] | + + + + + CBC [...] | [facility] | | | | NURSING [id number],TONJA H | g/dL | LABORATORY | | [...] | [facility] | | | | NURSING [id number],TONJA | | LABORATORY | | | | [...] LABORATORY | | | | performed at [facility] | | | | | | [address];[place] | | | | | | [address] | | | | + + + + + + + + | Specimen | + + | Blood | + + + + + + + | Performing | Address | City/State/Zipcode | Phone Number | | Organization | | | | + + + + + | [facility] | [address] | [place] [address] | [phone] | + + + + + Urinalysis [...] - 1.030 | [facility] | | | [place], | | | LABORATORY | | | [...] Bacteria, | NONE SEENComment: | NONE | [facility] | | | Urine | Testing performed at | | LABORATORY | | | | [facility], [address] [facility] [address] | | | | | | [place] | | | | | | [address] | | | | + + + [...] | + + + + + | [facility] | [address] | [place] [address] | [phone] | + + + + + Osmolality, [...] | | | | | [place] [address] | | | | + + + [...] | + + + + + | [facility] | [address] | [place] [address] | [phone] | + + + + + Culture, Blood (10/11/2019 10:15 AM PDT) + + + + + + | Component | Value | Ref Range | Performed | Pathologist | | | | | At | Signature | + + + + + + | Special | LAC | | [facility] | | | Requests | | | LABORATORY | | + + + + + + | Special | Testing performed at | | [facility] | | | Requests | [facility];[address] | | LABORATORY | | | | [place] [address] | | | | + + + + + + | RESULT | NO GROWTH 6 DAYS | | [facility] | | | | | | LABORATORY | | + + + + + + | RESULT | Testing performed at | | [facility] | | | | [facility], [address] | | LABORATORY | | | | [place] | | | | | | [address]Stblmyd: Testing | | | | | | performed at [facility], [address] | | | | | | [address] [place], [place] | | | | | | [address] | | | | + + + + + + + + | Specimen | + + | Blood - Swab of line | | insertion site | | (specimen) | + + + + + + + | Performing | Address | City/State/Zipcode | Phone Number | | Organization | | | | + + + + + | [facility] | [address] | [place] [address] | [phone] | + + + + + XR [...] Report | | | Signed by: Jacky Mercado John Sign Date/Time: 10/11/2019 10:39 AM | | + [...] Procedure Note | + + | Espinoza, [id number] - 10/11/2019 10:42 AM PDT | | [...] Special | Testing performed at | | [facility] | | | Requests | [facility];[address] | | LABORATORY | | | | [place] [address] | | | | + + + + + + | RESULT | NO GROWTH 6 DAYS | | [facility] | | | | | | LABORATORY | | + + + + + + | RESULT | Testing performed at | | [facility] | | | | [facility], [address] | | LABORATORY | | | | [place] | | | | | | [address]Qztvftq: Testing | | | | | | performed at [facility], [address] | | | | | | [place] | | | | | | [address] | | | | + + + + + + + + | Specimen | + + | Blood - Peripheral | | blood specimen | | (specimen) | + + + + + + + | Performing | Address | City/State/Zipcode | Phone Number | | Organization | | | | + + + + + | [facility] | [address] | [place] [address] | [phone] | + + + + + Sodium (10/11/2019 9:30 AM PDT) + + + + + + | Component | Value | Ref Range | Performed | Pathologist | | | | | At | Signature | + + + + + + | Na | 127 (L)Comment: Testing | 135 - 145 | [facility] | | | | performed at [facility];[address] | mmol/L | LABORATORY | | | | [address];[place] | | | | | | [address] | | | | + + + + + + + + | Specimen | + + | Blood | + + + + + + + | Performing | Address | City/State/Zipcode | Phone Number | | Organization | | | | + + + + + | [facility] | [address] | [place] [address] | [phone] | + + + + + Osmolality, [...] | | | | | [place] [address] | | | | + + + + + + + + | Specimen | + + | Blood | + + + + + + + | Performing | Address | City/State/Zipcode | Phone Number | | Organization | | | | + + + + + | [facility] | [address] | [place] [address] | [phone] | + + + + + Comprehensive [...] | >60Comment: GFR <60: | >60 | [facility] | | | GFR | [...] | | | | | | MDRD IDDE traceable | | | | | | equation.Testing | | | | | | performed at [facility] | | | | | | [facility];[place], [place] | | | | | | [address] | | | | + + + + + + + + | Specimen | + + | Blood | + + + + + + + | Performing | Address | City/State/Zipcode | Phone Number | | Organization | | | | + + + + + | [facility] | [address] | [place] [address] | [phone] | + + + + + CBC [...] LABORATORY | | | | performed at [facility];[address] | | | | | | [address];[place] | | | | | | [address] | | | | + + + + + + + + | Specimen | + + | Blood | + + + + + + + | Performing | Address | City/State/Zipcode | Phone Number | | Organization | | | | + + + + + | [facility] | [address] | [place] [address] | [phone] | + + + + + Comprehensive [...] 31 | 10 - 65 U/L | [facility] | | | | | [...] | | | | | | MDRD IDDE traceable | | | | | | equation.Testing | | | | | | performed at [facility] | | | | | | [facility];[place], [place] | | | | | | [address] | | | | + + + + + + + + | Specimen | + + | Blood | + + + + + + + | Performing | Address | City/State/Zipcode | Phone Number | | Organization | | | | + + + + + | [facility] | [address] | [place] [address] | [phone] | + + + + + Magnesium (10/10/2019 4:16 AM PDT) + + + + + + | Component | Value | Ref Range | Performed | Pathologist | | | | | At | Signature | + + + + + + | Magnesium | 1.8Comment: Testing | 1.7 - 2.4 mg/dL | [facility] | | | | performed at [facility];[address] | | LABORATORY | | | | [address];[place] | | | | | | [address] | | | | + + + + + + + + | Specimen | + + | Blood | + + + + + + + | Performing | Address | City/State/Zipcode | Phone Number | | Organization | | | | + + + + + | [facility] | [address] | [place] [address] | [phone] | + + + + + CBC [...] | | | Absolute | performed at [facility];[address] | K/uL | LABORATORY | | | | [facility];[place] | | | | | | [address] | | | | + + + + + + + + | Specimen | + + | Blood | + + + + + + + | Performing | Address | City/State/Zipcode | Phone Number | | Organization | | | | + + + + + | [facility] | [address] | [place] [address] | [phone] | + + + + + Lactic Acid (10/09/2019 5:12 AM PDT) + + + + + + | Component | Value | Ref Range | Performed | Pathologist | | | | | At | Signature | + + + + + + | Lactate, | 1.8Comment: Testing | 0.4 - 2.0 | [facility] | | | Serum | performed at [facility];[address] | mmol/L | LABORATORY | | | | [address];[place], [place] | | | | | | [address] | | | | + + + + + + + + | Specimen | + + | Blood | + + + + + + + | Performing | Address | City/State/Zipcode | Phone Number | | Organization | | | | + + + + + | [facility] | [address] | [place] [address] | [phone] | + + + + + Comprehensive [...] | >60Comment: GFR <60: | >60 | [facility] | | | GFR | CHRONIC KIDNEY [...] | | | | | performed at [facility];[address] | | | | | | [address] [facility];[place], [place] | | | | | | [address] | | | | + + + + + + + + | Specimen | + + | Blood | + + + + + + + | Performing | Address | City/State/Zipcode | Phone Number | | Organization | | | | + + + + + | [facility] | [address] | [place] [address] | [phone] | + + + + + Procalcitonin [...] | | | | | | at [facility];[address] | | | | | | [address];[place] [address] | | | | + + + + + + + + | Specimen | + + | Blood | + + + + + + + | Performing | Address | City/State/Zipcode | Phone Number | | Organization | | | | + + + + + | [facility] | [address] | [place] [address] | [phone] | + + + + + Phosphorus (10/09/2019 5:10 AM PDT) + + + + + + | Component | Value | Ref Range | Performed | Pathologist | | | | | At | Signature | + + + + + + | Phosphorus | 4.0Comment: Testing | 2.3 - 4.8 mg/dL | [facility] | | | | performed at [facility] | | LABORATORY | | | | [facility];[place], [place] | | | | | | [address] | | | | + + + + + + + + | Specimen | + + | Blood | + + + + + + + | Performing | Address | City/State/Zipcode | Phone Number | | Organization | | | | + + + + + | [facility] | [address] | [place] [address] | [phone] | + + + + + Magnesium (10/09/2019 5:10 AM PDT) + + + + + + | Component | Value | Ref Range | Performed | Pathologist | | | | | At | Signature | + + + + + + | Magnesium | 1.7Comment: Testing | 1.7 - 2.4 mg/dL | [facility] | | | | performed at [facility];[address] | | LABORATORY | | | | [address];[place] | | | | | | [address] | | | | + + + + + + + + | Specimen | + + | Blood | + + + + + + + | Performing | Address | City/State/Zipcode | Phone Number | | Organization | | | | + + + + + | [facility] | [address] | [place] [address] | [phone] | + + + + + CBC [...] Comment | SLIDE SCANNED, AGREES | | [facility] | | | | WITH AUTOMATED | | LABORATORY | | | | RESULTS.Comment: Testing | | | | | | performed at [facility];[address] | | | | | | [address];[place] | | | | | | [address] | | | | + + + + + + + + | Specimen | + + | Blood | + + + + + + + | Performing | Address | City/State/Zipcode | Phone Number | | Organization | | | | + + + + + | [facility] | [address] | [place] [address] | [phone] | + + + + + POC [...] | | | POC | performed at [facility];[address] | | LABORATORY | | | | [address] [facility];[place], [place] | | | | | | [address] | | | | + + + + + + + + | Specimen | + + | | + + + + + + + | Performing | Address | City/State/Zipcode | Phone Number | | Organization | | | | + + + + + | [facility] | [address] | [place] [address] | [phone] | + + + + + Phosphorus (10/08/2019 5:23 PM PDT) + + + + + + | Component | Value | Ref Range | Performed | Pathologist | | | | | At | Signature | + + + + + + | Phosphorus | 3.4Comment: Testing | 2.3 - 4.8 mg/dL | [facility] | | | | performed at [facility];[address] | | LABORATORY | | | | [address];[place] | | | | | | [address] | | | | + + + + + + + + | Specimen | + + | Blood | + + + + + + + | Performing | Address | City/State/Zipcode | Phone Number | | Organization | | | | + + + + + | [facility] | [address] | [place] [address] | [phone] | + + + + + Magnesium (10/08/2019 5:23 PM PDT) + + + + + + | Component | Value | Ref Range | Performed | Pathologist | | | | | At | Signature | + + + + + + | Magnesium | 1.8Comment: Testing | 1.7 - 2.4 mg/dL | [facility] | | | | performed at [facility];[address] | | LABORATORY | | | | [address];[place] | | | | | | [address] | | | | + + + + + + + + | Specimen | + + | Blood | + + + + + + + | Performing | Address | City/State/Zipcode | Phone Number | | Organization | | | | + + + + + | [facility] | [address] | [place] [address] | [phone] | + + + + + CBC with Differential (10/08/2019 5:23 PM PDT) + + + + + + | Component | Value | Ref Range | Performed | Pathologist | | | | | At | Signature | + + + + + + | WBC | 26.78 (H) | 3.80 - 11.00 | [facility] | | | | | K/uL | LABORATORY | | + + + + + + | Red Blood | 3.17 (L) | 4.20 - 5.70 | [facility] | | | Cells | | M/uL [...] at | | | | | | [facility];[address] [place] [address] | | | | | | [facility];[place] [address] | | | | + + + + + + + + | Specimen | + + | Blood | + + + + + + + | Performing | Address | City/State/Zipcode | Phone Number | | Organization | | | | + + + + + | [facility] | [address] | [place] [address] | [phone] | + + + + + Basic [...] | >60Comment: GFR <60: | >60 | [facility] | | | GFR | [...] | | | | | | MDRD [facility] traceable | | | | | | equation.Testing | | | | | | performed at [facility] | | | | | | [facility];[place], [place] | | | | | | [address] | | | | + + + + + + + + | Specimen | + + | Blood | + + + + + + + | Performing | Address | City/State/Zipcode | Phone Number | | Organization | | | | + + + + + | [facility] | [address] | [place] [address] | [phone] | + + + + + PTT (10/08/2019 5:23 PM PDT) + + + + + + | Component | Value | Ref Range | Performed | Pathologist | | | | | At | Signature | + + + + + + | PTT | 32Comment: Testing | 23 - 32 seconds | [facility] | | | | performed at [facility];[address] | | LABORATORY | | | | [address];[place] | | | | | | [address] | | | | + + + + + + + + | Specimen | + + | Blood | + + + + + + + | Performing | Address | City/State/Zipcode | Phone Number | | Organization | | | | + + + + + | [facility] | [address] | [place] [address] | [phone] | + + + + + POC MIRNA, CG8, Arterial (10/08/2019 2:04 PM PDT) + + [...] (L)Comment: Testing | 13.7 - 16.7 | [facility] | | | POC | performed at [facility];[address] | g/dL | LABORATORY | | | | [address];[place], [place] | | | | | | [address] | | | | + + + + + + + + | Specimen | + + | | + + + + + + + | Performing | Address | City/State/Zipcode | Phone Number | | Organization | | | | + + + + + | [facility] | [address] | [place] [address] | [phone] | + + + + + POC SCOTT BRADLEY8, Arterial (10/08/2019 1:22 PM PDT) + + [...] | | | POC | performed at [facility];[address] | g/dL | LABORATORY | | | | [address];[place], [place] | | | | | | [address] | | | | + + + + + + + + | Specimen | + + | | + + + + + + + | Performing | Address | City/State/Zipcode | Phone Number | | Organization | | | | + + + + + | [facility] | [address] | [place] [address] | [phone] | + + + + + Basic [...] | | | | | performed at [facility], [address] | | | | | | [facility], | | | | | | [place] [address] | | | | + + + + + + + + | Specimen | + + | Blood | + + + + + + + | Performing | Address | City/State/Zipcode | Phone Number | | Organization | | | | + + + + + | [facility] | [address] | [place] [address] | [phone] | + + + + + CBC [...] | | | Absolute | performed at [facility], [address] | K/uL | LABORATORY | | | | [address], | | | | | | [place] [address] | | | | + + + + + + + + | Specimen | + + | Blood | + + + + + + + | Performing | Address | City/State/Zipcode | Phone Number | | Organization | | | | + + + + + | [facility] | [address] | [place] [address] | [phone] | + + + + + Magnesium (10/08/2019 5:44 AM PDT) + + + + + + | Component | Value | Ref Range | Performed | Pathologist | | | | | At | Signature | + + + + + + | Magnesium | 1.6 (L)Comment: Testing | 1.7 - 2.4 mg/dL | [facility] | | | | performed at [facility];[address] | | LABORATORY | | | | [address];[place], [place] | | | | | | [address] | | | | + + + + + + + + | Specimen | + + | Blood | + + + + + + + | Performing | Address | City/State/Zipcode | Phone Number | | Organization | | | | + + + + + | [facility] | [address] | [place] [address] | [phone] | + + + + + PTT (10/07/2019 5:21 PM PDT) + + + + + + | Component | Value | Ref Range | Performed | Pathologist | | | | | At | Signature | + + + + + + | PTT | 28Comment: Testing | 23 - 32 seconds | [facility] | | | | performed at [facility];[address] | | LABORATORY | | | | [address];[place] | | | | | | [address] | | | | + + + + + + + + | Specimen | + + | Blood - Artery, | | Radial, Right | + + + + + + + | Performing | Address | City/State/Zipcode | Phone Number | | Organization | | | | + + + + + | [facility] | [address] | [place] [address] | [phone] | + + + + + Protime INR (10/07/2019 5:21 PM PDT) + + + + + + | Component | Value | Ref Range | Performed | Pathologist | | | | | At | Signature | + + + + + + | INR | 1.3Comment: REFERENCE | | [facility] | | | | RANGE:0.9 - 1.2 [...] | | | | | performed at [facility];[address] | | | | | | [facility];[place], [place] | | | | | | [address] | | | | + + + + + + + + | Specimen | + + | Blood - Artery, | | Radial, Right | + + + + + + + | Performing | Address | City/State/Zipcode | Phone Number | | Organization | | | | + + + + + | [facility] | [address] | [place] [address] | [phone] | + + + + + Basic [...] | | | | | performed at [facility];[address] | | | | | | [facility];[place], [place] | | | | | | [address] | | | | + + + + + + + + | Specimen | + + | Blood - Artery, | | Radial, Right | + + + + + + + | Performing | Address | City/State/Zipcode | Phone Number | | Organization | | | | + + + + + | [facility] | [address] [facility] | [place] [address] | [phone] | + + + + + CBC [...] LABORATORY | | | | performed at [facility];[address] | | | | | | [address];[place] | | | | | | [address] | | | | + + + + + + + + | Specimen | + + | Blood - Right upper | | arm structure (body | | structure) | + + + + + + + | Performing | Address | City/State/Zipcode | Phone Number | | Organization | | | | + + + + + | [facility] | [address] | [place] [address] | [phone] | + + + + + Surgical [...] attached red-white | | | fibromembranous tissue. [employer] sections are submitted in | | | [...] | LABORATORY:The technical component was performed by [facility] | | | [facility], [address] [place] [address] (Re Etcher: | | | Asia Rodriguez MD; CLIA# [id number]).Professional interpretation was | | | performed by [facility] [address] | | | [place] [address] (Re Etcher: Solitario | | | Jacky Recio; CLIA#: [id number]). Diagnostician: Asia Rodriguez | | | MDPathologistElectronically Signed 10/10/2019 | | | | | |PERFORMING LABORATORY: | | |The technical component was performed by [facility], [address] [place] [address] (Re Etcher: Asia Rodriguez MD; CLIA# [id number]). | | |Professional interpretation [facility], [address] [place] [id number] (Re Etcher: Solitario Recio M.D.; CLIA#: [id number]). | | | | | |Diagnostician: Asia [...] | | | POC | performed at [facility];[address] | g/dL | LABORATORY | | | | [address];[place], [place] | | | | | | [address] | | | | + + + + + + + + | Specimen | + + | | + + + + + + + | Performing | Address | City/State/Zipcode | Phone Number | | Organization | | | | + + + + + | [facility] | [address] | [place] [address] | [phone] | + + + + + Red [...] | ORDER RECEIVED IN BLOOD | | [facility] | | | COMMENT | BANK. | | LABORATORY | | + + + + + + | BLOOD BANK | Testing performed at | | [facility] | | | COMMENT | [facility];[address] | | LABORATORY | | | | [address];[place] [address] | | | | + + + + + + + + | Specimen | + + | | + + + + + + + | Performing | Address | City/State/Zipcode | Phone Number | | Organization | | | | + + + + + | [facility] | [address] | [place] [address] | [phone] | + + + + + POC ISTAT, CG8, Arterial (10/07/2019 12:37 PM PDT) + + + + + + | Component | Value | Ref Range | Performed | Pathologist | | | | | At | Signature | + + + + + + | pH, | 7.326 (L) | 7.350 - 7.450 | [facility] | | | Arterial, | | | LABORATORY | | | POC | | | | | + + + + + + | pCO2, | 41 | 35 - 45 mmHg | [facility] [...] | | | POC | performed at [facility];[address] | g/dL | LABORATORY | | | | [address];[place], [place] | | | | | | [address] | | | | + + + + + + + + | Specimen | + + | | + + + + + + + | Performing | Address | City/State/Zipcode | Phone Number | | Organization | | | | + + + + + | [facility] | [address] | [place] [address] | [phone] | + + + + + POC ISTAT, CG8, Arterial (10/07/2019 10:47 AM PDT) + + + + + + | Component | Value | Ref Range | Performed | Pathologist | | | | | At | Signature | + + + + + + | pH, | 7.334 (L) | 7.350 - 7.450 | [facility] [...] | | | POC | performed at [facility];[address] | g/dL | LABORATORY | | | | [address];[place], [place] | | | | | | [address] | | | | + + + + + + + + | Specimen | + + | | + + + + + + + | Performing | Address | City/State/Zipcode | Phone Number | | Organization | | | | + + + + + | [facility] | [address] | [place] [address] | [phone] | + + + + + POC MIRNA CG8, Arterial (10/07/2019 8:40 AM PDT) + + [...] 14.3Comment: Testing | 13.7 - 16.7 | [facility] | | | POC | performed at [facility];[address] | g/dL | LABORATORY | | | | [address];[place], [place] | | | | | | [address] | | | | + + + + + + + + | Specimen | + + | | + + + + + + + | Performing | Address | City/State/Zipcode | Phone Number | | Organization | | | | + + + + + | [facility] | [address] | [place] [address] | [phone] | + + + + + Red [...] BANK | Testing performed at | | [facility] | | | COMMENT | [facility];[address] | | LABORATORY | | | | [address];[place] [address] | | | | + + + + + + + + | Specimen | + + | | + + + + + + + | Performing | Address | City/State/Zipcode | Phone Number | | Organization | | | | + + + + + | [facility] | [address] | [place] [address] | [phone] | + + + + + Magnesium (10/07/2019 3:55 AM PDT) + + + + + + | Component | Value | Ref Range | Performed | Pathologist | | | | | At | Signature | + + + + + + | Magnesium | 1.6 (L)Comment: Testing | 1.7 - 2.4 mg/dL | [facility] | | | | performed at [facility] | | LABORATORY | | | | [address];[place], [place] | | | | | | [address] | | | | + + + + + + + + | Specimen | + + | Blood | + + + + + + + | Performing | Address | City/State/Zipcode | Phone Number | | Organization | | | | + + + + + | [facility] | [address] | [place] [address] | [phone] | + + + + + Type [...] + + + | [facility] | [facility] [address] | | [facility] | | | | | | LABORATORY | | + + + + + + | UNIT # | [id number] | | [facility] | | | | [...] + + + | UNIT # | [id number] | | [facility] | | | | [...] + + + | UNIT # | [id number] | | [facility] | | | | [...] + + + | UNIT # | [id number] | | [facility] | | | | [...] | | | RESULT | performed at [facility];[address] | | LABORATORY | | | | [address];[place], [place] | | | | | | [address] | | | | + + + + + + + + | Specimen | + + | Blood | + + + + + + + | Performing | Address | City/State/Zipcode | Phone Number | | Organization | | | | + + + + + | [facility] | [address] | [place] [address] | [phone] | + + + + + Basic [...] | >60Comment: GFR <60: | >60 | KR | | | GFR | CHRONIC KIDNEY [...] | | | | | performed at [facility];[address] | | | | | | [facility];[place], [place] | | | | | | [address] | | | | + + + + + + + + | Specimen | + + | Blood | + + + + + + + | Performing | Address | City/State/Zipcode | Phone Number | | Organization | | | | + + + + + | [facility] [facility] | [address] | [place] [address] | [phone] | + + + + + CBC [...] | | | Absolute | performed at [facility] | K/uL | LABORATORY | | | | [address];[place] | | | | | | [address] | | | | + + + + + + + + | Specimen | + + | Blood | + + + + + + + | Performing | Address | City/State/Zipcode | Phone Number | | Organization | | | | + + + + + | [facility] | [address] | [place] [address] | [phone] | + + + + + Magnesium (10/06/2019 6:27 AM PDT) + + + + + + | Component | Value | Ref Range | Performed | Pathologist | | | | | At | Signature | + + + + + + | Magnesium | 1.6 (L)Comment: Testing | 1.7 - 2.4 mg/dL | [facility] | | | | performed at [facility] | | LABORATORY | | | | [address];[place] | | | | | | [address] | | | | + + + + + + + + | Specimen | + + | Blood | + + + + + + + | Performing | Address | City/State/Zipcode | Phone Number | | Organization | | | | + + + + + | [facility] | [address] | [place] [address] | [phone] | + + + + + Basic [...] | | | | | performed at [facility], [address] | | | | | | [facility], | | | | | | [place] [address] | | | | + + + + + + + + | Specimen | + + | Blood | + + + + + + + | Performing | Address | City/State/Zipcode | Phone Number | | Organization | | | | + + + + + | [facility] | [address] | [place] [address] | [phone] | + + + + + CBC [...] | | | Absolute | performed at [facility], [address] | K/uL | LABORATORY | | | | [facility], | | | | | | [place] [address] | | | | + + + + + + + + | Specimen | + + | Blood | + + + + + + + | Performing | Address | City/State/Zipcode | Phone Number | | Organization | | | | + + + + + | [facility] | [address] | [place] [address] | [phone] | + + + + + Magnesium (10/05/2019 5:02 AM PDT) + + + + + + | Component | Value | Ref Range | Performed | Pathologist | | | | | At | Signature | + + + + + + | Magnesium | 1.7Comment: Testing | 1.7 - 2.4 mg/dL | [facility] | | | | performed at [facility] | | LABORATORY | | | | [address];[place] | | | | | | [address] | | | | + + + + + + + + | Specimen | + + | Blood | + + + + + + + | Performing | Address | City/State/Zipcode | Phone Number | | Organization | | | | + + + + + | [facility] | [address] | [place] [address] | [phone] | + + + + + Basic [...] | | | | | | [facility] traceable | | | | | | equation.Testing | | | | | | performed at [facility], [address] | | | | | | [facility], | | | | | | [place] [address] | | | | + + + + + + + + | Specimen | + + | Blood | + + + + + + + | Performing | Address | City/State/Zipcode | Phone Number | | Organization | | | | + + + + + | [facility] | [address] | [place] [address] | [phone] | + + + + + CBC [...] | | | Absolute | performed at [facility], [address] | K/uL | LABORATORY | | | | [address], | | | | | | [place] [address] | | | | + + + + + + + + | Specimen | + + | Blood | + + + + + + + | Performing | Address | City/State/Zipcode | Phone Number | | Organization | | | | + + + + + | [facility] | [address] | [place] [address] | [phone] | + + + + + ECHO [...] | | Final Report Signed by: Jacky Anderson Timothy Sign Date/Time: | | | 10/04/2019 12:06 PM [...] | Procedure Note | + + | [facility], [id number] - 10/04/2019 12:10 PM PDT | | [...] [facility] | | | | performed at [facility] | | LABORATORY | | | | [address];[place] | | | | | | [address] | | | | + + + + + + + + | Specimen | + + | Tissue - Both | | anterior nares (body | | structure) | + + + + + + + | Performing | Address | City/State/Zipcode | Phone Number | | Organization | | | | + + + + + | [facility] | [address] | [place] [address] | [phone] | + + + + + Protime INR (10/04/2019 6:12 AM PDT) + + + + + + | Component | Value | Ref Range | Performed | Pathologist | | | | | At | Signature | + + + + + + | INR | 1.1Comment: REFERENCE | | KR | | | | RANGE:0.9 - 1.2 [...] | | | | | performed at [facility] | | | | | | [address];[place] | | | | | | [address] | | | | + + + + + + + + | Specimen | + + | Blood | + + + + + + + | Performing | Address | City/State/Zipcode | Phone Number | | Organization | | | | + + + + + | [facility] | [address] | [place] [address] | [phone] | + + + + + Uric Acid (10/04/2019 4:26 AM PDT) + + + + + + | Component | Value | Ref Range | Performed | Pathologist | | | | | At | Signature | + + + + + + | Uric Acid | 3.2Comment: Testing | 3.2 - 8.6 mg/dL | [facility] | | | | performed at [facility], [address] | | LABORATORY | | | | [address] [facility], | | | | | | [place] [address] | | | | + + + + + + + + | Specimen | + + | Blood | + + + + + + + | Performing | Address | City/State/Zipcode | Phone Number | | Organization | | | | + + + + + | [facility] | [address] | [place] [address] | [phone] | + + + + + Lipid Panel (10/04/2019 4:26 AM PDT) + + + + + + | Component | Value | Ref Range | Performed | Pathologist | | | | | At | Signature | + + + + + + | Cholesterol | 129 | <200 mg/dL | [facility] | | | | | | LABORATORY [...] | | | Calculated | performed at [facility], [address] | | LABORATORY | | | | [address], | | | | | | [place] [address] | | | | + + + + + + + + | Specimen | + + | Blood | + + + + + + + | Performing | Address | City/State/Zipcode | Phone Number | | Organization | | | | + + + + + | [facility] | [address] | [place] [address] | [phone] | + + + + + Comprehensive [...] | | | | | | [facility] traceable | | | | | | equation.Testing | | | | | | performed at [facility], [address] | | | | | | [facility], | | | | | | [place] [address] | | | | + + + + + + + + | Specimen | + + | Blood | + + + + + + + | Performing | Address | City/State/Zipcode | Phone Number | | Organization | | | | + + + + + | [facility] | [address] | [place] [address] | [phone] | + + + + + CBC [...] | | | Absolute | performed at [facility], [address] | K/uL | LABORATORY | | | | [address], | | | | | | [place] [address] | | | | + + + + + + + + | Specimen | + + | Blood | + + + + + + + | Performing | Address | City/State/Zipcode | Phone Number | | Organization | | | | + + + + + | [facility] | [address] | [place] [address] | [phone] | + + + + + Coronavirus (COVID-19) NAASerenity (10/04/2019 12:49 AM PDT) + + + + + + | Component | Value | Ref Range | Performed | Pathologist | | | | | At | Signature | + + + + + + | SARS-CoV-2, | NEGATIVEComment: This | NEG | [facility] | | | NAAT | test was [...] | | | | | performed at [facility] | | | | | | [facility];[place], [place] | | | | | | [address] | | | | + + + + + + + + | Specimen | + + | Tissue - Entire | | nasopharynx (body | | structure) | + + + + + + + | Performing | Address | City/State/Zipcode | Phone Number | | Organization | | | | + + + + + | [facility] | [address] | [place] [address] | [phone] | + + + + + ECG [...] by | | | | | | ELLA HART MD ([id number]) | | | | | | on [...] | | KT | | | | [facility] | | LABORATORY | | | | [address] [address] | | | | + + + + + + + + | Specimen | + + | Blood | + + + + + + + | Performing | Address | City/State/Zipcode | Phone Number | | Organization | | | | + + + + + | [facility] | [address] | [place] [address] | [phone] | + + + + + Comprehensive [...] | | | | | performed at [facility];[address] | | | | | | [address];[place] | | | | | | [address] | | | | + + + + + + + + | Specimen | + + | Blood | + + + + + + + | Performing | Address | City/State/Zipcode | Phone Number | | Organization | | | | + + + + + | [facility] | [address] | [place] [address] | [phone] | + + + + + CBC [...] | | | Absolute | performed at [facility];[address] | K/uL | LABORATORY | | | | [address];[place], [place] | | | | | | [address] | | | | + + + + + + + + | Specimen | + + | Blood | + + + + + + + | Performing | Address | City/State/Zipcode | Phone Number | | Organization | | | | + + + + + | [facility] | [address] | [place] [address] | [phone] | + + + + + documented in this encounter Visit Diagnoses + + | Diagnosis | + + | Pseudoaneurysm (HCC) right aorto femoral bypass - Primary Aneurysm of unspecified | | site | + + | Peripheral arterial disease (HCC) Unspecified disorders of arteries and arterioles | + + | Cellulitis of right foot Cellulitis and abscess of foot, except toes | + + | Thrombosis of femoral-femoral bypass graft (HCC) | + + | Post-operative pain Other acute postoperative pain | + + | Alcohol abuse Alcohol abuse, unspecified | + + | Tobacco abuse Tobacco use disorder | + + | Postprocedural hypotension Other iatrogenic hypotension | + + | Acute hyponatremia Hyposmolality and/or hyponatremia | + + | Leucocytosis Leukocytosis, unspecified | + + documented in this encounter [...] | acetaminophen (TYLENOL) tablet | Given | 16 | 650 mg | | | | 650 mg 650 mg, Oral, EVERY 4 | | 20 8:40 | | | | | HOURS PRN, Pain, or fever >= 38.6 | | AM PDT | | | | | C (101.5 F), Starting Wed10/03/19 | | | | | | | [...] | +---+---+ + +-------+ + +---+---+ | amoxicillin-clavulanate | Given | 10/13/19 | 1 tablet | | | | (AUGMENTIN) 875-125 mg per tablet | | 20 9:03 | | | | | 1 tablet 1 tablet, Oral, 2 | | PM PDT | | | | | TIMES DAILY, First dose (after | | | | | | | last modification) on Wed10/10/19 | | | | | | | at 1800, For 7 doses, | | | | | | | Indications: SKIN AND SOFT TISSUE | | | | | | | ABSCESS | | | | | | + +-------+ + +---+---+ +-------+ + +---+---+ | Given | 10/13/19 | 1 tablet | | | | | 20 8:55 | | | | | | AM PDT | | | | +-------+ + +---+---+ | Given | 10/12/19 | 1 tablet | | | | | 20 8:13 | | | | | | PM PDT | | | | +-------+ + +---+---+ +---+---+ | | | +---+---+ + +---------+ +-----+-------+---+ | ampicillin-sulbactam (UNASYN) 3 | New Bag | 10/10/19 | 3 g | 200 | | | g in sodium chloride 0.9% 100 mL | | 20 12:33 | | mL/hr | | | IVPB 3 g, Intravenous, | | PM PDT | | | | | Administer over 30 Minutes, EVERY | | | | | | | 6 HOURS, First dose on Wed | | | | | | | 10/04/19 at 0000, For 27 doses, | | | | | | | Activate system and mix before | | | | | | | use., Indications: SKIN AND SOFT | | | | | | | TISSUE ABSCESS | | | | | | + +---------+ +-----+-------+---+ +---------+ +-----+-------+---+ | New Bag | 10/10/19 | 3 g | 200 | | | | 20 6:54 | | mL/hr | | | | AM PDT | | | | +---------+ +-----+-------+---+ | New Bag | 10/09/19 | 3 g | 200 | | | | 20 11:30 | | mL/hr | | | | PM PDT | | | | +---------+ +-----+-------+---+ +---+---+ | | | +---+---+ + +-------+ [...] | | | | | | Starting [facility] 10/12/19 at 1744 | | | [...] + +-------+ +-------+---+ + | Given | 10/15/19 | 40 mg | | Abdomen- | | | 20 8:40 | | | LLQ | | | AM PDT | | | | +-------+ +-------+---+ + | Given | 10/14/19 | 40 mg | | Abdomen- | | | 20 8:37 | | | LLQ | | | AM PDT | | | | +-------+ +-------+---+ + +---+---+ | | | +---+---+ + +-------+ +--------+---+---+ | fentaNYL (PF) injection 25-50 | Given | 10/08/19 | 25 mcg | | | | mcg 25-50 mcg, Intravenous, | | 20 8:38 | | | | | EVERY 5 MIN PRN, Pain, Initial | | PM PDT | | | | | postop medication for URGENT PAIN | | | | | | | OR ESCALATING PAIN, Starting Sun | | | | | | | 10/08/19 at 1431, For 4 doses, | | | | | | | First dose must be lowest dose. | | | | | | | Use Pasero Sedation Scale. | | | | | | | [Opioid tolerant = One week or | | | | | | | longer, yimjvv-jvv-wwfen use of | | | | | | | at least the following DAILY | | | | | | | dose: 60mg oral morphine, 60mg | | | | | | | oral hydrocodone, 30mg oral | | | | | | | oxycodone, 8mg oral | | | | | | | hydromorphone, fentanyl patch | | | | | | | 25mcg/hr, or equivalent dose of | | | | | | | another opioid], | | | | | | + +-------+ +--------+---+---+ +---+---+ | | | +---+---+ + +-------+ +--------+---+---+ | fentaNYL (PF) injection 25-50 | Given | 10/09/19 | 50 mcg | | | | mcg 25-50 mcg, Intravenous, | | 20 12:22 | | | | | EVERY 1 HOUR PRN, Pain, Initial | | AM PDT | | | | | postop medication for URGENT PAIN | | | | | | | OR ESCALATING PAIN, Starting Mon | | | | | | | 10/09/19 at 0000, First dose must | | | | | | | be lowest dose. Use Pasero | | | | | | | Sedation Scale. [Opioid tolerant | | | | | | | = One week or longer, | | | | | | | mizrle-wdo-bswro use of at least | | | | | | | the following DAILY dose: 60mg | | | | | | | oral morphine, 60mg oral | | | | | | | hydrocodone, 30mg oral oxycodone, | | | | | | | 8mg oral hydromorphone, fentanyl | | | | | | | patch 25mcg/hr, or equivalent | | | | | | | dose of another opioid], | | | | | | + +-------+ +--------+---+---+ +---+---+ | | | +---+---+ + +-------+ +--------+---+---+ | fentaNYL (PF) injection 25-50 | Given | 10/10/19 | 50 mcg | | | | mcg 25-50 mcg, Intravenous, | | 20 12:35 | | | | | EVERY 1 HOUR PRN, Pain, Starting | | PM PDT | | | | | 10/09/19 at 0206 | | | | | | + +-------+ +--------+---+---+ +---+---+ | | | +---+---+ + +---------+ +------+--------+---+ | folic acid 1 mg, thiamine | New Bag | 10/05/19 | 1 mg | 102.4 | | | (VITAMIN B-1) 100 mg in sodium | | 20 8:44 | | mL/hr | | | chloride 0.9% 50 mL IVPB 1 mg, | | PM PDT | | | | | Intravenous, Administer over 30 | | | | | | | Minutes, DAILY, First dose on Wed | | | | | | | 10/03/19 at 2315, For 3 doses, | | | | | | | give 1st dose prior to any food | | | | | | | or dextrose containing IV., | | | | | | + +---------+ +------+--------+---+ +---------+ +------+--------+---+ | New Bag | 10/04/19 | 1 mg | 102.4 | | | | 20 8:42 | | mL/hr | | | | PM PDT | | | | +---------+ +------+--------+---+ | New Bag | 10/03/19 | 1 mg | 102.4 | | | | 20 11:45 | | mL/hr | | | | PM PDT | | | | +---------+ +------+--------+---+ +---+---+ | | | +---+---+ + +-------+ +--------+---+ + | heparin 5,000 units/mL | Given | 10/07/19 | 5,000 | | Abdomen- | | injection 5,000 Units 5,000 | | 20 8:39 | Units | | LLQ | | Units, Subcutaneous, EVERY 12 | | PM PDT | | | | | HOURS, First dose on Wed10/03/19 | | | | | | | at 2300 | | | | | | + +-------+ +--------+---+ + +-------+ +--------+---+ + | Given | 10/04/19 | 5,000 | | Abdomen- | | | 20 8:42 | Units | | LLQ | | | PM PDT | | | | +-------+ +--------+---+ + + +---+ | | | + +---+ | hydrocortisone (ANUSOL-HC) | | | suppository 25 mg 25 mg, Rectal, | | | 2 TIMES DAILY PRN, Hemorrhoidal | | | Pain, Starting [facility] 10/05/19 at 1227 | | + +---+ | | | + +---+ + +-------+ +--------+---+---+ | HYDROmorphone (DILAUDID) | Given | 10/08/19 | 0.4 mg | | | | injection 0.2-0.6 mg 0.2-0.6 mg, | | 20 3:24 | | | | | Intravenous, EVERY 5 MIN PRN, | | PM PDT | | | | | Pain, Starting 10/08/19 at | | | | | | | 1431, First dose must be lowest | | | | | | | dose, can increase subsequent | | | | | | | doses by 0.2mg within dosing | | | | | | | range. If patient meets opioid | | | | | | | tolerant definition, can start | | | | | | | with 0.4mg dose. [Maximum total | | | | | | | PACU dose 2 mg] Use Pasero | | | | | | | Sedation Scale. [Opioid tolerant | | | | | | | = One week or longer, | | | | | | | pczyxk-apm-cohbd use of at least | | | | | | | the following DAILY dose: 60mg | | | | | | | oral morphine, 60mg oral | | | | | | | hydrocodone, 30mg oral oxycodone, | | | | | | | 8mg oral hydromorphone, fentanyl | | | | | | | patch 25mcg/hr, or equivalent | | | | | | | dose of another opioid], | | | | | | + +-------+ +--------+---+---+ +-------+ +--------+---+---+ | Given | 10/08/19 | 0.4 mg | | | | | 20 3:04 | | | | | | PM PDT | | | | +-------+ +--------+---+---+ +---+---+ | | | +---+---+ + +-------+ +--------+---+---+ | HYDROmorphone (DILAUDID) | Given | 10/09/19 | 0.4 mg | | | | injection 0.4-0.8 mg 0.4-0.8 mg, | | 20 8:20 | | | | | Intravenous, EVERY 1 HOUR PRN, | | PM PDT | | | | | Pain, Starting 10/09/19 at | | | | | | | 0150 | | | | | | + +-------+ +--------+---+---+ +-------+ +--------+---+---+ | Given | 10/09/19 | 0.4 mg | | | | | 20 2:15 | | | | | | AM PDT | | | | +-------+ +--------+---+---+ +---+---+ | | | +---+---+ + +-------+ +---+---+---+ | labetalol (TRANDATE) 5 [...] | | +---+---+ + +-------+ +-------+---+---+ | labetalol (TRANDATE) 5 mg/mL | Given | 10/07/19 | 10 mg | | | | injection 20 mg 20 mg, | | 20 8:05 | | | | | Intravenous, EVERY 4 HOURS PRN, | | AM PDT | | | | | SBP > 180, Starting Urvashi 10/05/19 at | | | | | | | 0807 | | | | | | + +-------+ +-------+---+---+ +-------+ +-------+---+---+ | Given | 10/05/19 | 20 mg | | | | | 20 3:06 | | | | | | PM [...] | | +---+---+ + +-------+ +-------+---+---+ | lisinopril (PRINIVIL, ZESTRIL) | Given | 10/06/19 | 10 mg | | | | tablet 10 mg 10 mg, Oral, DAILY, | | 20 8:04 | | | | | First dose on Wed10/05/19 at 1300 | | AM PDT | | | | + +-------+ +-------+---+---+ +-------+ +-------+---+---+ | Given | 10/05/19 | 10 mg | | | | | 20 12:35 | | | | | | PM [...] 2 g/50 mL | New Bag | 10/10/19 | 2 g | 25 mL/hr | | | IVPB 2 g 2 g, Intravenous, | | 20 5:13 | | | | | Administer over 120 Minutes, | | AM PDT | | | | | DAILY PRN, Per protocol, Starting | | | | | | | Urvashi 10/05/19 at 0648, NON-ICU | | | | | | [...] | | | + +---------+ +-----+ +---+ +---+---+ | | | +---+---+ + +---------+ [...] Other, breakthrough pain, | | | Starting Wed10/10/19 at 1216, | | | First dose [...] | | | + +---+ + +---------+ +---------+---+ + | nicotine (NICODERM) 14 mg/24 hr | Patch | 10/10/19 | 1 patch | | Arm-Righ | | 1 patch 1 patch, Transdermal, | Applied | 20 8:23 | | | t Upper | | DAILY, First dose on Wed10/04/19 | | AM PDT | | | | | at 0900 | | | | | | + +---------+ +---------+---+ + + + +---------+---+ + | Patch Applied | 10/09/19 | 1 patch | | Arm-Left | | | 20 8:30 | | | Upper | | | AM PDT | | | | + + +---------+---+ + | Patch Applied | 10/05/19 | 1 patch | | Arm-Righ | | | 20 9:49 | | | t Lower | | | AM PDT | | | | + + +---------+---+ + +---+---+ | | | +---+---+ + [...] | | +---+---+ + +-------+ +-------+---+---+ | oxyCODONE (ROXICODONE) tablet | Given | 10/10/19 | 15 mg | | | | 15 mg 15 mg, Oral, EVERY 4 HOURS | | 20 9:05 | | | | | PRN, Pain, Starting 10/08/19 | | PM PDT | | | | | at 1445 | | | | | | + +-------+ +-------+---+---+ +-------+ +-------+---+---+ | Given | 10/10/19 | 15 mg | | | | | 20 4:37 | | | | | | PM PDT | | | | +-------+ +-------+---+---+ | Given | 10/10/19 | 15 mg | | | | | 20 10:52 | | | | | | AM PDT | | | | +-------+ +-------+---+---+ +---+---+ | | | +---+---+ + +-------+ +-------+---+---+ | oxyCODONE (ROXICODONE) tablet | Given | 10/08/19 | 10 mg | | | | 5-10 mg 5-10 mg, Oral, EVERY 4 | | 20 6:25 | | | | | HOURS PRN, Pain, Starting Sat | | AM PDT | | | | | 10/07/19 at 1815 | | | | | | + +-------+ +-------+---+---+ +-------+ +-------+---+---+ | Given | 10/08/19 | 10 mg | | | | | 20 1:18 | | | | | | AM PDT | | | | +-------+ +-------+---+---+ | Given | 10/07/19 | 5 mg | | | | | 20 8:38 | | | | | | PM [...] +------+---+---+ +---+---+ | | | +---+---+ + + + +---------+---------+---+ | phenylephrine (WADE-SYNEPHRINE, | Rate/Dos | 10/09/19 | 10 | 6 mL/hr | | | VAZCULEP) 100 mcg/mL in sodium | e Change | 20 4:05 | mcg/min | | | | chloride 0.9% 500 mL infusion | | PM PDT | | | | | 0-180 mcg/min (0-108 mL/hr), at | | | | | | | 0-108 mL/hr, Intravenous, | | | | | | | TITRATED, Starting 10/07/19 at | | | | | | | 1630, Titration Instruction: See | | | | | | | below, Goal: Other, Other goal: | | | | | | | SBP 90 and greater, Initial dose: | | | | | | | 30 mcg/min, Increase rate by: 10 | | | | | | | mcg/min every 5 minutes., | | | | | | | Decrease rate by: 10 mcg/min | | | | | | | every 5 minutes., *: Titrate drug | | | | | | | per order as tolerated. | | | | | | | Titration may vary based on the | | | | | | | patient | | | | | | | | | | | | | | s critical condition. | | | | | | + + + +---------+---------+---+ + + +---------+ +---+ | Rate/Dose Change | 10/09/19 | 20 | 12 mL/hr | | | | 20 3:40 | mcg/min | | | | | PM PDT | | | | + + +---------+ +---+ | Rate/Dose Change | 10/09/19 | 30 | 18 mL/hr | | | | 20 1:41 | mcg/min | | | | | PM PDT | | | | + + +---------+ +---+ +---+---+ | | | +---+---+ + +-------+ +--------+---+---+ | potassium chloride (KLOR-CON) | Given | 10/05/19 | 40 mEq | | | | ER tablet 20-40 mEq 20-40 mEq, | | 20 3:05 | | | | | Oral, DAILY PRN, Per protocol, | | PM PDT | | | | | Starting Urvashi 10/05/19 at 0648, | | | | | | | [...] | | | replacement is done. Give tablet | | | | | | | or liquid but never both. If | | | | | | | repeat K is still < 3.5, contact | | | | | | | provider for further instruction. | | | | | | | May take with food to decrease | | | | | | | GI upset., | | | | | | + [...] | potassium chloride (KLOR-CON) | Given | 10/03/19 | 40 mEq | | | | ER tablet 40 mEq 40 mEq, Oral, | | 20 11:51 | | | | | ONCE, 10/04/19 at 0000, For 1 | | PM PDT | | | | | dose, May take with food to | | | | | | | decrease GI upset., | | | | | | + [...] 40 mEq in | New Bag | 10/10/19 | 40 mEq | 130 | | | sodium chloride 0.9% 500 mL IVPB | | 20 8:00 | | mL/hr | | | 40 mEq, Intravenous, Administer | | AM PDT | | | | | over 4 Hours, DAILY PRN, Per | | | | | | | protocol, Starting 10/10/19 at | | | | | | | 0535, NON-ICU Protocol Replace | | | | [...] | | | | + +---------+ +--------+-------+---+ +---+---+ | | | +---+---+ + +---------+ +--------+-------+---+ | potassium chloride 40 [...] | | | | | protocol, Starting Wed10/11/19 at | | | | | | [...] +---+---+ | | | +---+---+ + +-------+ +--------+---+ + | rifAMPin injection 600 mg 600 | Given | 10/07/19 | 600 mg | | Surgical | | mg, Other, ONCE, 10/07/19 at | | 20 8:36 | | | Site | | 0845, For 1 dose, Rifampin 600 mg | | AM PDT | | | | | to soak dacron graft for surgery | | | | | | | this am Protect from light., | | | | | | | Indications: graft detachment/ | | | | | | | nonadherence | | | | | | + +-------+ +--------+---+ + +---+---+ | | | +---+---+ + +---------+ +---------+-------+---+ | sodium chloride 0.9% (NS) bolus | New Bag | 10/08/19 | 500 mLs | 1000 | | | 500 mL 500 mL, Intravenous, | | 20 4:30 | | mL/hr | | | Administer over 30 Minutes, ONCE, | | PM PDT | | | | | 10/08/19 at 1845, For 1 dose | | | | | | + +---------+ +---------+-------+---+ +---+---+ | | | +---+---+ + +---------+ +---+-------+---+ | sodium chloride 0.9% (NS) | New Bag | 10/03/19 | | 100 | | | infusion at 100 mL/hr, | | 20 11:45 | | mL/hr | | | Intravenous, CONTINUOUS, Starting | | PM PDT | | | | | 10/03/19 at 2300 | | | | | | + +---------+ +---+-------+---+ +---+---+ | | | +---+---+ + +---------+ +---+ +---+ | sodium chloride 0.9% (NS) | New Bag | 10/09/19 | | 50 mL/hr | | | infusion at 50 mL/hr, | | 20 11:31 | | | | | Intravenous, CONTINUOUS, Starting | | PM PDT | | | | | Tanya 10/08/19 at 1930 | | | | | | + +---------+ +---+ +---+ + + +---+ +---+ | Restarted | 10/09/19 | | 50 mL/hr | | | | 20 12:21 | | | | | | PM PDT | | | | + + +---+ +---+ | Rate/Dose Change | 10/09/19 | | 50 mL/hr | | | | 20 2:40 | | | | | | AM PDT | | | | + + +---+ +---+ +---+---+ | | | +---+---+ + +-------+ [...] +-----+---+---+ +---+---+ | | | +---+---+ + +---------+ +---------+-------+---+ | sodium phosphate 15 mmol in | New Bag | 10/14/19 | 15 mmol | 42.5 | | | sodium chloride 0.9% 250 mL IVPB | | 20 7:01 | | mL/hr | | | 15 mmol, Intravenous, Administer | | PM PDT | | | | | over 6 Hours, ONCE, 10/14/19 | | | | | | | at 1900, For 1 dose, For doses | | | | | | | greater than or equal to 33 mMol, | | | | | | | central line administration | | | | | | | preferred. If no central access, | | | | | | | administer peripherally into | | | | | | | large vein. Do not give in | | | | | | | hand/wrist or foot/ankle vein., | | | | | | + +---------+ +---------+-------+---+ +---+---+ | | | +---+---+ documented in [...]
--- OUTSIDE RECORDS SUMMARY | ~2019-11-02 | XMS | Encounter Summary ---
Demographics + + + | Address | [address] | | | [place] [address] | + + + | Home Phone | | + + + | Preferred Language | Unknown | + + + | Marital Status | Single | + + + | Uatsdin Affiliation | 1009 | + + + | Race | White | + + + | Ethnic Group | Not or | + + + Author + + + | Author | [facility] | | | and [place] | + + + | Organization | [facility] | | | [...] Team Providers + +------+ + | Care Head Butler Name | Role | Phone | + +------+ + | No, Physician | PCP | Unavailable | + +------+ + Encounter Details +--------+ + + + + | Date | Type | Department | Care Team | Description | +--------+ + + + + | 10/06/ | Anesthesia | [facility] | Rudolph Lowery | | | 2020 | Event | [facility] | MD [address] | | | | | [address] | [address] | | | | | [address] | [place] [address] | | | | | [place], [place] | [phone] | | | | | [address] | | | | | | [phone] | Hossein Gregorio, Taisha, | | | | | | MEDICAL RECORDS CLERK [address] [facility] | | | | | | [place] [address] | | | | | | [phone] | | | | | | | | +--------+ + + + + Anesthesia Record + + + + + | Procedure Name | Responsible | Anesthesia Start | Anesthesia Stop Time | | | Anesthesiologist | Time | | + + + + + | REPAIR | | | | | PSEUDOANEURYSM- | | | | | FEMORAL (voided) | | | | + + + + + + + | No events on file. | + + +------+ | Meds | +------+ + + + No medications | on file. | + + + + + | No agents on file. | + + + + | No blood administrations on file. | + + +-------+ + +---------+ | Type | Details | Placement | Removal | +-------+ + +---------+ | Wound | 10/07/19; 1615; Incision; | 10/07/19 1615 by | | | | Bilateral; karen | Beverley Logan | | | | | HARRISON Flanagan | | +-------+ + +---------+ | Wound | 10/07/19; 1615; Incision; | 10/07/19 1615 by | | | | Bilateral; abdomen; right | Beverley Logan | | | | | HARRISON Flanagan | | +-------+ + +---------+ | Wound | 10/08/19; 1358; Incision; Left; | 10/08/19 1358 by | | | | anterior; groin; Left Wound Vac | Georgie Catalan RN | | | | and AUGUSTUS drain | | | +-------+ + +---------+ | Wound | 10/08/19; 1358; Incision; Right; | 10/08/19 1358 by | | | | anterior; groin; prevena Wound | Beverley Logan | | | | Vac and AUGUSTUS drain | HARRISON Flanagan | | +-------+ + +---------+ | Wound | 10/08/19; 1417; Incision; | 10/08/19 1417 by | | | | Bilateral; leg; deny drain | Beverley Logan | | | | (bilateral) | HARRISON Flanagan | | +-------+ + +---------+ documented in this encounter Social History + [...] as of this encounter OR Notes Anesthesia Preprocedure Evaluation - Rudolph Lowery MD - 10/06/2019 10:45 AM PDTForm atting of this note might be different from the original. ANESTHESIA PREANESTHESIA EVALUATION Jairo Covarrubiases 59 y.o. male 1960 [id number] Procedure(s): REPAIR PSEUDOANEURYSM- FEMORAL (Right ) Medical,anesthesia, drug, allergy histories reviewed, NPO status verified. ECG reviewed. Labs reviewed. Review of Systems / Med History Anesthesia [...] who presents as a tra nsfer from [facility] ED for pseudoaneurysm of the right [...] valvular abnormalities a re noted. Physical Exam Other LABS: 06 October 2019: CBC: 8>13.6/38.9<140 [...] carotid artery by velocity. Anesthesia Plan ASA: 3 Type: General. GETA Induction: Intravenous. Potential problems: None anticipated. Monitors: Standard ASA monitors. Arterial line and CVP (possible CVP. ) to aid in hemodynamic monitoring. documented in th is encounter Plan of [...] [place] | | | | | | [address] | | | | | | | | +--------+ + + + + | 11/07/ | Office | Vascular Surgery | Ricci De León DNP | | 2019 | Visit | | [address] | | | | | | [place] | | | | | | [address] | | | | | | | | +--------+ + + + + documented as of this encounter Visit Diagnoses Not on filedocumented in this encounter"
--- OUTSIDE RECORDS SUMMARY | ~2019-11-02 | XMS | Encounter Summary ---
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 enlarging right femoral pseudoaneurysm. Left RFID SPECIALIST shows no in flow but reconstitutes. The patient will require revascularization and open repair for his e nlarging right RFID SPECIALIST pseudoaneurysm. He will need retroperitoneal exposure with [...] testing negative. Will also get baseline echo. Michael Abel PA-C Vascular Surgery Associated attestation - Magdiel Arteaga [...] Current Outpt/Agency/Support Groups: yes Community Agency Name: [facility] Home Health Disciplines: RN and PT - RN for wound care Equipment Durable Medical Equipment Provider: Home Equipment at Discharge: none Equipment Used at Home: cane, straight, single point Pharmacy Pharmacy/Medication needs: Pt is going to use Rx Pharmacy and will use his Medicare Part D benefits. WASTE HANDLING TECHNICIAN and Pt called [facility], got him reestablished with the [facility], has not been seen since 2018 . Pt is now assigned to Team Linda Bob. WASTE HANDLING TECHNICIAN p/c with Rudolph at [facility] Team Linda Bob, states they will be calling Pt for follow up appt and will send referral for outpatient wound care. WASTE HANDLING TECHNICIAN p/c with Carol at [facility], states she has received [facility] orders in the p ast and will follow up with Dr. Bob's office. WASTE HANDLING TECHNICIAN provided referral and faxed Home health referral. [...] Bed Mobility Supine to Sit, Level of [place]: modified independent Sit to Supine, Level of [place]: modified independent Safety Issues: decreased use of legs for bridging/pushing Transfers Sit-Stand, Level of [place]: supervised Stand-Sit, Level of [place]: supervised Gbr-Tbnqv-Yfn, Assistive Device: none Gait Level of [place]: supervised Assistive Device: none Distance (feet): 40 Goals Reflects last filed data and may be from multiple contributors. All Bed Mobility Goal Most Recent Value LTG Status new at 10/09/2019 1108 LTG [place] Level modified independent at 10/09/2019 1108 LTG Assistive Device none at 10/09/2019 1108 All Transfers Goal Most Recent Value LTG Status new at 10/09/2019 1108 LTG [place] Level modified independent at 10/09/2019 1108 LTG Assistive Device 2 wheeled walker (FWW) at 10/09/2019 1108 Gait Goal Most Recent Value LTG Status new at 10/09/2019 1108 LTG [place] Level modified independent at 10/09/2019 1108 LTG Assistive Device 2 wheeled walker (FWW) at 10/09/2019 1108 LTG Distance (feet) 100 at 10/09/2019 1108 Stair Goal Most Recent Value LTG Status new at 10/09/2019 1108 LTG [place] Level modified independent at 10/09/2019 1108 LTG [...] d/c location of home with assistance. Isaias cruz benefit for acute care intervention with stair training to maximize d/c planning. Precautions Precautions/Limitations: falls Cognitive Assessment Mood/Behavior: calm, cooperative Bed Mobility Assistive Device: bed rails Supine to Sit, Level of [place]: modified independent Safety Issues: decreased use of legs for bridging/pushing Impairments: ROM decreased, strength decreased Transfers Sit-Stand, Level of [place]: stand by assist, verbal cues required Stand-Sit, Level of [place]: stand by assist, verbal cues required Zye-Ojnhv-Eiz, Assistive Device: 2 wheeled walker (FWW), none Toilet, Level of [place]: stand by assist, verbal cues required Toilet, Assistive Device: 2 wheeled walker (FWW), grab bars Gait Gait Comments: antalgic gait with flexed trunk posture and intermittent crouch position Level of [place]: stand by assist, verbal cues required(verbal cues [...] LTG Status new at 10/09/2019 1108 LTG [place] Level modified independent at 10/09/2019 1108 LTG Assistive Device none at 10/09/2019 1108 All Transfers Goal Most Recent Value LTG Status new at 10/09/2019 1108 LTG [place] Level modified independent at 10/09/2019 1108 LTG Assistive Device 2 wheeled walker (FWW) at 10/09/2019 1108 Gait Goal Most Recent Value LTG Status new at 10/09/2019 1108 LTG [place] Level modified independent at 10/09/2019 1108 LTG Assistive Device 2 wheeled walker (FWW) at 10/09/2019 1108 LTG Distance (feet) 100 at 10/09/2019 1108 Stair Goal Most Recent Value LTG Status new at 10/09/2019 1108 LTG [place] Level modified independent at 10/09/2019 1108 LTG [...] Bed Mobility Supine to Sit, Level of [place]: minimal assist (75% patient effort) Transfers Sit-Stand, Level of [place]: minimal assist (75% patient effort) Gait Level of [place]: minimal assist (75% patient effort) Assistive Device: [...] LTG Status new at 10/09/2019 1108 LTG [place] Level modified independent at 10/09/2019 1108 LTG Assistive Device none at 10/09/2019 1108 All Transfers Goal Most Recent Value LTG Status new at 10/09/2019 1108 LTG [place] Level modified independent at 10/09/2019 1108 LTG Assistive Device 2 wheeled walker (FWW) at 10/09/2019 1108 Gait Goal Most Recent Value LTG Status new at 10/09/2019 1108 LTG [place] Level modified independent at 10/09/2019 1108 LTG Assistive Device 2 wheeled walker (FWW) at 10/09/2019 110 LTG Distance (feet) 100 at 10/09/2019 1108 Stair Goal Most Recent Value LTG Status new at 10/09/2019 1108 LTG [place] Level modified independent at 10/09/2019 1108 LTG Assistive Device 1 rail at 10/09/2019 1108 LTG Number of Stairs 3 at 10/09/2019 1108 lan of Care - Archana Art RN - 10/13/2019 9:21 AM PDTPatient more pleasant and cooperative today , but refused shower, and has poor appetite. All incisions still draining copiously, needed to be changed frequently this shift d/t drrebeca jarquin and stools. Bilat wound vacs removed [...] complete. P DTPlan of Care - Avinash Carreon PT - 10/11/2019 11:30 AM PDTFormatting of [...] participation. Pt with an i ncontinent BM. SUPERVISOR WATERPROOFING and PT assisting with mobility and pericare. [...] Transfers Additional Documentation: toilet Sit-Stand, Level of [place]: minimal assist (75% patient effort) Stand-Sit, Level of [place]: minimal assist (75% patient effort) Ext-Oipeu-Blx, Assistive Device: 2 wheeled walker (FWW) Toilet, Level of [place]: minimal assist (75% patient effort) Toilet, Assistive Device: 2 wheeled walker (FWW) Safety Issues: loses balance backward, weight-shifting ability decreased, step length decre ased, sequencing ability decreased, balance decreased during turns Impairments: ROM decreased, strength decreased, impaired balance Gait Gait Comments: reduced step length BLE, excessive trunk flexion, reduced weight bearing RLE , avoidance COG over HAN Level of [place]: minimal assist (75% patient effort) Assistive Device: 2 wheeled walker (FWW) Distance (feet): 15x2 Goals Reflects last filed data and may be from multiple contributors. All Bed Mobility Goal Most Recent Value LTG Status new at 10/09/2019 1108 LTG [place] Level modified independent at 10/09/2019 1108 LTG Assistive Device none at 10/09/2019 1108 All Transfers Goal Most Recent Value LTG Status new at 10/09/2019 1108 LTG [place] Level modified independent at 10/09/2019 1108 LTG Assistive Device 2 wheeled walker (FWW) at 10/09/2019 1108 Gait Goal Most Recent Value LTG Status new at 10/09/2019 1108 LTG [place] Level modified independent at 10/09/2019 1108 LTG Assistive Device 2 wheeled walker (FWW) at 10/09/2019 1108 LTG Distance (feet) 100 at 10/09/2019 1108 Stair Goal Most Recent Value LTG Status new at 10/09/2019 1108 LTG [place] Level modified independent at 10/09/2019 1108 LTG [...] drains intact and compressed X5. lan of Daniella Chen RN - 10/10/2019 6:54 PM PDT Problem: [...] this shift. lan of Diana - Kathie Yun OT Student - 10/10/2019 3:45 PM PDTFormatting of this note might be diff erent from the original. Occupational Therapy Initial Evaluation Note Recommended discharge disposition: home with assist, other (see comments)(pending progress ) Post discharge occupational therapy recommendation: home health Equipment Recommendations: 2 wheeled walker (FWW), shower chair, part time flexible clerk, sock aide, long handled sponge, long handled [...] cheese snadwhiches since being a t the hospital despite his chart saying he has [...] bed rails Supine to Sit, Level of [place]: minimal assist (75% patient effort) Sit to Supine, Level of [place]: moderate assist (50% patient effort) Safety Issues: decreased use of legs for bridging/pushing, decreased use of arms for pushin g/pulling Impairments: ROM decreased, strength decreased, postural control impaired, pain Transfers Additional Documentation: sit to/from stand Sit-Stand, Level of [place]: minimal assist (75% patient effort) Stand-Sit, Level of [place]: maximal assist (25% patient effort) Pxv-Eeuvo-Miv, Assistive Device: 2 wheeled walker (FWW), gait belt Safety Issues: loses balance backward, weight-shifting ability decreased, step length decre ased, sequencing ability decreased, balance decreased during turns Impairments: ROM decreased, strength decreased, impaired balance ROM Comments: WFL Strength Comments: WFL. B bearing inspector strength 4/5. B UE MMT 4/5 except for biceps 3+/5 Balance Sitting Balance: Static: good balance Sitting Balance: Dynamic: good balance Standing Balance: Static: poor balance Standing Balance: Dynamic: poor balance Goals Reflects last filed data and may be from multiple contributors. LB Dressing Goal Most Recent Value LTG Status new at 10/10/2019 1545 LTG [place] Level minimum assist (75% patient effort), set up required at 10/10/2019 1545 LTG Adaptive Equipment part time flexible clerk, sock-aid at 10/10/2019 1545 Toilet Transfer Goal Most Recent Value LTG Status new at 10/10/2019 1545 LTG [place] Level minimum assist (75% patient effort) at [...] at bedside in ICU on turnover by goodwill representative. Patient stat es he feels better, no [...] acute PT intervention to facilitate normalizing gait guillermina hayes, safety during stair negotiation and functional strength. Cognitive Assessment Mood/Behavior: calm, cooperative Bed Mobility Assistive Device: HOB elevated, bed rails Supine to Sit, Level of [place]: minimal assist (75% patient effort) Transfers Bed-Chair, Level of [place]: minimal assist (75% patient effort) Nmg-Stiqe-Tbe, Assistive Device: 2 wheeled walker (FWW), gait belt Sit-Stand, Level of [place]: minimal assist (75% patient effort), stand by assist Stand-Sit, Level of [place]: minimal assist (75% patient effort), stand by assist Gait Gait Comments: reduced step length BLE, excessive trunk flexion, reduced weight bearing RLE , avoidance COG over HAN Level of [place]: minimal assist (75% patient effort), verbal cues [...] LTG Status new at 10/09/2019 1108 LTG [place] Level modified independent at 10/09/2019 1108 LTG Assistive Device none at 10/09/2019 1108 All Transfers Goal Most Recent Value LTG Status new at 10/09/2019 1108 LTG [place] Level modified independent at 10/09/2019 1108 LTG Assistive Device 2 wheeled walker (FWW) at 10/09/2019 1108 Gait Goal Most Recent Value LTG Status new at 10/09/2019 1108 LTG [place] Level modified independent at 10/09/2019 1108 LTG Assistive Device 2 wheeled walker (FWW) at 10/09/2019 1108 LTG Distance (feet) 100 at 10/09/2019 1108 Stair Goal Most Recent Value LTG Status new at 10/09/2019 1108 LTG [place] Level modified independent at 10/09/2019 1108 LTG [...] Family Contact Information: Name: Lele Conley (Roommate) [id number] signed by PORTILLO Varner at 10/10/2019 10:13 [...] HOB elevated Supine to Sit, Level of [place]: maximal assist (25% patient effort) Safety Issues: decreased use of legs for bridging/pushing, impaired trunk control for bed m obility Impairments: pain, strength decreased, ROM decreased Transfers Additional Documentation: sit to/from stand, bed to/from chair Bed-Chair, Level of [place]: moderate assist (50% patient effort) Wny-Wtglh-Mtq, Assistive Device: 2 wheeled walker (FWW) Sit-Stand, Level of [place]: minimal assist (75% patient effort) Stand-Sit, Level of [place]: minimal assist (75% patient effort) Pwz-Ammnh-Kjj, Assistive Device: 2 wheeled walker (FWW) Safety [...] LTG Status new at 10/09/2019 1108 LTG [place] Level modified independent at 10/09/2019 1108 LTG Assistive Device none at 10/09/2019 1108 All Transfers Goal Most Recent Value LTG Status new at 10/09/2019 1108 LTG [place] Level modified independent at 10/09/2019 1108 LTG Assistive Device 2 wheeled walker (FWW) at 10/09/2019 1108 Gait Goal Most Recent Value LTG Status new at 10/09/2019 1108 LTG [place] Level modified independent at 10/09/2019 1108 LTG Assistive Device 2 wheeled walker (FWW) at 10/09/2019 1108 LTG Distance (feet) 100 at 10/09/2019 1108 Stair Goal Most Recent Value LTG Status new at 10/09/2019 1108 LTG [place] Level modified independent at 10/09/2019 1108 LTG [...] 1.7 Estimated Energy Needs Energy Calorie Requirements: 8346-0725(28-32 kcal/kg per 54.3 kg admit wt ) [...] Ongoing, progressing Flowsheets (Taken 10/09/2019 1024) Participants: case managers dietitian/nutrition services advanced practice nurse nursing pharmacy [...] clear liquid diet. lan of [facility] Viv Santos MSW - 10/09/2019 9:44 AM PDTAttended morning rounds. Pt transferred to ICU post -op for repair of thrombosed fem-fem artery bypass. Progressing. Await PT to julissa and alissa tinajero. Has no PCP per CM note and FS. Insurance is [facility]. lan of [facility] Urszula Garcia RN - 10/09/2019 8:02 [...] having p ain. Urszula RN. reatme nt Plan - Amanda Tim [...] 10/08/2019 2:31 PM PDT BRIEF OPERATIVE NOTE [facility] Pt. Name/Age/: Jairo Theodore 59 y.o. 1960 Med. Record Number: [id number] Date of admission: 10/03/2019 Date of Operation/Procedure: [...] disease (HCC) [I73.9] Surgeon: Magdiel Arteaga MD Instrument Assembler: Maicol Abel PA-C Anesthesia Provider(s): Anesthesiologist: Orlando Ambriz DO CUSTOMER SUPPORT PROFESSIONAL: Som Garcia CRNA Anesthesia Type: Anesthesia type not filed in the log. Procedure(s): THROMBECTOMY / EMBOLECTOMY of fem fem bypass BILATERAL BYPASS GRAFT FEMORAL-POPLITEAL WITH 6 MM PTFE ANGIOGRAM - EXTREMITY BILATERAL ([id number]) Operative Findings: Thrombosed femoral to femoral artery [...] Implant Name Type Inv. Item Serial No. Asparagus Cutter Lot No. LRB No. Used Action GRAFT VAS PROPATEN 6-80MM - [id number] Graft GRAFT VAS PROPATEN 6-80MM [id number] WL G ORE - WLGO NA N/A 1 Implanted GRAFT VAS PROPATEN 6-80MM - [id number] Graft GRAFT VAS PROPATEN 6-80MM [id number] WL G ORE - WLGO NA N/A 1 Implanted Counts: Instrument, sponge, and needle counts were correct prior to closure and at the con clusion of the case. Complications: None Disposition: The patient was taken to PACU Immediate Post-Operative Condition: Stable Electronically signed by: Magdiel Arteaga MD, 10/08/2019, 2:31 PM PDT p Note - Magdiel Arteaga MD - 10/08/2019 10 :06 AM PDT [facility] OPERATIVE REPORT PATIENT NAME: Jairo Theodore [...] the knee. This was carried down wi electrocautery. Fascia was incised. The popliteal fossa [...] the femorofemoral bypass. Using 2 CV 6 [place]-Jamie sutures the 6 mm bypass was anastomos [...] astomosis was created with 2 CV 6 [place]-Jamie sutures. Prior to completing the anastomosis the [...] an antibiotic solution. Hemostasis was achieved. 7 Scottish drains were placed in both groins and [...] Magdiel Arteaga MD Vascular Surgery Dictation software, GoMiles, used which may contain error for similar sounding words even af ter review. Personal communication requested for any clarification. Electronically signed by: Magdiel Arteaga MD, 10/09/2019 10:06 AM PDT [facility] lan of Care - Aggie Hayden [...] Post SBPs 110-120s. Laguerre UO 500ml. Aggie Hayden, RN p Note - Edgardo Arteaga MD - 10/07/2019 7:00 PM PDT [facility] OPERATIVE REPORT PATIENT NAME: Jairo Theodore [...] vanced a wire and placed a 7 Scottish sheath. We again attempted to select out [...] femoral endarterectomy was performed w ith a [place] elevator. There was good backbleeding from the [...] common femoral endarterectomy was performed using the [place] elevator. After performing the endarterect carlyle there [...] copiously irrigated. There was good hemostasis. 7 Scottish flat AUGUSTUS drains were placed in both [...] Magdiel Arteaga MD Vascular Surgery Dictation software, GoMiles, used which may contain error for similar sounding words even af ter review. Personal communication requested for any clarification. Electronically signed by: Magdiel Arteaga MD, 10/09/2019 9:28 AM PDT [facility] rief Op Note - Magdiel Arteaga MD - 10/07/2019 4:30 PM PDTFormatting of this note might be different from the or iginal. BRIEF OPERATIVE NOTE [facility] Pt. Name/Age/: Jairo Theodore 59 y.o. 1960 Med. Record Number: [id number] Date of admission: 10/03/2019 Date of Operation/Procedure: 10/07/2019 Preoperative Diagnosis: 1. Large right groin pseudoaneurysm 2. Peripheral arterial disease Postoperative Diagnosis: * Pseudoaneurysm (HCC) [I72.9] Surgeon: Magdiel Arteaga MD Instrument Assembler: Maicol Abel PA-C Anesthesia Provider(s): Anesthesiologist: Rudolph Lowery MD CUSTOMER SUPPORT PROFESSIONAL: Neville Rush CRNA Anesthesia Type: General Procedure(s): [...] Implant Name Type Inv. Item Serial No. Asparagus Cutter Lot No. LRB No. Used Action GRAFT GORE PROPATEN [id number] - [id number] Graft GRAFT GORE PROPATEN [id number] WL GORE - WLGO NA Right 1 Implanted GRAFT HEMGRD KNIT [id number] - [id number] Graft GRAFT HEMGRD KNIT [id number] [employer] - MAQU [id number] Right 1 Implanted [...] VSS with one SBP in 170s recheck [id number]. Report given to preop nurse and [id number] [...] clear of clutter. lan of [facility] - Carol Olivares MSW - 10/04/2019 12:52 [...] Notes: Pt resides with his friend in [place]. Pt is independent - no caregiver, home health, oxy gen / CPAP, outpatient services, or blood thinners. Pt reports he uses a cane. Pt reports th at he drinks about a six-pack a day. Pt denies resources for ETOH, reports that he will drin k "until I ". Electronically signed: PORTILLO HERRERA 10/04/2019 12:53 PM PDT lan of Diana - Juli Sims RD - 10/04/2019 11:16 AM PDTFormatting of this note might be differ ent from the original. NUTRITION NOTE Summary Triggered for screening secondary to IBW <85%. 59 year-old male with PMG of HTN, CAD, alcohol abuse who was admitted for cellulitis of RLE and enlarging pseudoaneurysm of right RFID SPECIALIST. Pt scheduled for pseudoaneurysm repair on 10/04. [...] BUN 7* CREA 0.60* Estimated Energy Needs 3175-7912 kcal/day (28-32 kcal/kg per 54.3 kg admit [...] [place] | | | | | | [id number] | | | | | | | | +--------+ + + + + | 11/07/ | Office | Vascular Surgery | Ricci De León DNP | | | 2019 | Visit | | [address] | | | | | | [place] | | | | | | [address] | | | | | | | [...] Expected: | | | | e | ([facility]) right aorto | 10/23/2019, Expires: | | | | | femoral bypass | 10/15/2020 | + +---------+--------+ + + | CBC w/ Auto | Lab | Routin | Pseudoaneurysm | Expected: | | Differential | | e | ([facility]) right aorto | 10/23/2019, Expires: | | | | | femoral bypass | 10/15/2020 | + +---------+--------+ + + | Phosphorus | Lab | Routin | Pseudoaneurysm | 1 Occurrences | | | | e | ([facility]) right aorto | starting 10/16/2019 | | | | | femoral bypass | until 10/15/2020 | + +---------+--------+ + + | Magnesium | Lab | Routin | Pseudoaneurysm | Expected: | | | | e | ([facility]) right aorto | 10/23/2019, Expires: | | | | | femoral bypass | 10/15/2020 | + +---------+--------+ + + | Calcium | Lab | Routin | Pseudoaneurysm | Expected: | | | | e | ([facility]) right aorto | 10/23/2019, Expires: [...] | Health | Referral | e | ([facility]) right aorto | | | | | | femoral bypass | | | | | | Cellulitis of right | | | | | | foot 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 ([facility]) | | | | | [...] | POC ISLILLIE, CG8, | Routin | 10/07/2019 | | Results [...] + +--------+ + + + | POC ISTAT, CG8, | Routin | 10/07/2019 | | Results for this | | ARTERIAL | e | 8:40 AM | | procedure are in the | | | | PDT | | results section. | + +--------+ + + + | BYPASS GRAFT | | 10/07/2019 | Pseudoaneurysm | | | FEMORAL-FEMORAL | | 7:07 AM | (HCC) | [...] LABORATORY | | | | performed at [facility], [address] | | | [address], | | | | | | [place] [address] | | | | + + + + + + + + | Specimen | + + | Blood | + + + + + + + | Performing | Address | City/State/Zipcode | Phone Number | | Organization | | | | + + + + + | [facility] | [address] | [place] [address] | [phone] | + + + + + Magnesium (10/16/2019 5:11 AM PDT) + + + + + + | Component | Value | Ref Range | Performed | Pathologist | | | | | At | Signature | + + + + + + | Magnesium | 1.7Comment: Testing | 1.7 - 2.4 mg/dL | [facility] | | | | performed at [facility] [facility];[address] | LABORATORY | | | | [address];[place] | | | | | | [address] | | | | + + + + + + + + | Specimen | + + | Blood | + + + + + + + | Performing | Address | City/State/Zipcode | Phone Number | | Organization | | | | + + + + + | [facility] | [address] | [place] [address] | [phone] | + + + + + Potassium (10/16/2019 5:11 AM PDT) + + + + + + | Component | Value | Ref Range | Performed | Pathologist | | | | | At | Signature | + + + + + + | K | 3.0 (L)Comment: Testing | 3.5 - 4.9 | [facility] [facility] | | | | performed at [facility];888 | mmol/L | LABORATORY | | | | [address];[place] | | | | | | [address] | | | | + + + + + + + + | Specimen | + + | Blood | + + + + + + + | Performing | Address | City/State/Zipcode | Phone Number | | Organization | | | | + + + + + | [facility] | [address] | [place] [address] | [phone] | + + + + + CBC [...] LABORATORY | | | | performed at [facility], [address] | | | | | [address], | | | | | | [place] [address] | | | | + + + + + + + + | Specimen | + + | Blood | + + + + + + + | Performing | Address | City/State/Zipcode | Phone Number | | Organization | | | | + + + + + | [facility] | [address] | [place] [address] | [phone] | + + + + + Magnesium (10/15/2019 5:13 AM PDT) + + + + + + | Component | Value | Ref Range | Performed | Pathologist | | | | | At | Signature | + + + + + + | Magnesium | 1.9Comment: Testing | 1.7 - 2.4 mg/dL | [facility] | | | | performed at [facility];888 | | LABORATORY | | | | [address];[place] | | | | | | [address] | | | | + + + + + + + + | Specimen | + + | Blood | + + + + + + + | Performing | Address | City/State/Zipcode | Phone Number | | Organization | | | | + + + + + | [facility] | [address] | [place] [address] | [phone] | + + + + + Basic [...] | | | | | performed at [facility], [address] | | | | | | [facility], | | | | | | [place] [address] | | | | + + + + + + + + | Specimen | + + | Blood | + + + + + + + | Performing | Address | City/State/Zipcode | Phone Number | | Organization | | | | + + + + + | [facility] | [address] | [place] [address] | [phone] | + + + + + Potassium (10/14/2019 3:28 PM PDT) + + + + + + | Component | Value | Ref Range | Performed | Pathologist | | | | | At | Signature | + + + + + + | K | 3.3 (L)Comment: Testing | 3.5 - 4.9 | [facility] | | | | performed at [facility];888 | mmol/L | LABORATORY | | | | [address];[place] | | | | | | [address] | | | | + + + + + + + + | Specimen | + + | Blood | + + + + + + + | Performing | Address | City/State/Zipcode | Phone Number | | Organization | | | | + + + + + | [facility] | [address] | [place] [address] | [phone] | + + + + + Magnesium (10/14/2019 3:28 PM PDT) + + + + + + | Component | Value | Ref Range | Performed | Pathologist | | | | | At | Signature | + + + + + + | Magnesium | 2.1Comment: Testing | 1.7 - 2.4 mg/dL | [facility] | | | | performed at [facility];[address] | | LABORATORY | | | | [address];[place], [place] | | | | | | [address] | | | | + + + + + + + + | Specimen | + + | Blood | + + + + + + + | Performing | Address | City/State/Zipcode | Phone Number | | Organization | | | | + + + + + | [facility] | [address] | [place] [address] | [phone] | + + + + + Phosphorus (10/14/2019 3:28 PM PDT) + + + + + + | Component | Value | Ref Range | Performed | Pathologist | | | | | At | Signature | + + + + + + | Phosphorus | 1.3 (L)Comment: Testing | 2.3 - 4.8 mg/dL | [facility] | | | | performed at [facility];888 | | LABORATORY | | | | [address];[place], [place] | | | | | | [address] | | | | + + + + + + + + | Specimen | + + | Blood | + + + + + + + | Performing | Address | City/State/Zipcode | Phone Number | | Organization | | | | + + + + + | [facility] | [address] | [place] [address] | [phone] | + + + + + CBC [...] | 10.5Comment: NO NORMAL | fl | [facility] | | | | RANGE ESTABLISHEDTesting | | LABORATORY | | | | performed at [facility], [address] | | | | | | [address], | | | | | | [place] [address] | | | | + + + + + + + + | Specimen | + + | Blood | + + + + + + + | Performing | Address | City/State/Zipcode | Phone Number | | Organization | | | | + + + + + | [facility] | [address] | [place] [address] | [phone] | + + + + + Magnesium (10/14/2019 5:49 AM PDT) + + + + + + | Component | Value | Ref Range | Performed | Pathologist | | | | | At | Signature | + + + + + + | Magnesium | 1.6 (L)Comment: Testing | 1.7 - 2.4 mg/dL | [facility] | | | | performed at [facility];[address] | | LABORATORY | | | | [address];[place] | | | | | | [address] | | | | + + + + + + + + | Specimen | + + | Blood | + + + + + + + | Performing | Address | City/State/Zipcode | Phone Number | | Organization | | | | + + + + + | [facility] | [address] | [place] [address] | [phone] | + + + + + Basic [...] | | | | | performed at [facility], [address] | | | | | | [facility], | | | | | | [place] [address] | | | | + + + + + + + + | Specimen | + + | Blood | + + + + + + + | Performing | Address | City/State/Zipcode | Phone Number | | Organization | | | | + + + + + | [facility] | [address] | [place] [address] | [phone] | + + + + + Potassium (10/13/2019 11:07 AM PDT) + + + + + + | Component | Value | Ref Range | Performed | Pathologist | | | | | At | Signature | + + + + + + | K | 3.5Comment: Testing | 3.5 - 4.9 | [facility] | | | | performed at [facility];888 | mmol/L | LABORATORY | | | | [address];[place], [place] | | | | | | [address] | | | | + + + + + + + + | Specimen | + + | Blood | + + + + + + + | Performing | Address | City/State/Zipcode | Phone Number | | Organization | | | | + + + + + | [facility] | [address] | [place] [address] | [phone] | + + + + + Potassium (10/13/2019 4:37 AM PDT) + + + + + + | Component | Value | Ref Range | Performed | Pathologist | | | | | At | Signature | + + + + + + | K | 3.5Comment: Testing | 3.5 - 4.9 | [facility] | | | | performed at [facility];888 | mmol/L | LABORATORY | | | | [address];[place], [place] | | | | | | [address] | | | | + + + + + + + + | Specimen | + + | Blood | + + + + + + + | Performing | Address | City/State/Zipcode | Phone Number | | Organization | | | | + + + + + | [facility] | [address] | [place] [address] | [phone] | + + + + + Magnesium (10/13/2019 4:37 AM PDT) + + + + + + | Component | Value | Ref Range | Performed | Pathologist | | | | | At | Signature | + + + + + + | Magnesium | 1.7Comment: Testing | 1.7 - 2.4 mg/dL | [facility] | | | | performed at [facility];[address] | | LABORATORY | | | | [address];[place] | | | | | | [address] | | | | + + + + + + + + | Specimen | + + | Blood | + + + + + + + | Performing | Address | City/State/Zipcode | Phone Number | | Organization | | | | + + + + + | [facility] | [address] | [place] [address] | [phone] | + + + + + Basic [...] 7.3 (L) | 8.5 - 10.5 | [facility] | | | | | mg/dL | LABORATORY | | + + + + + + | Estimated | >60Comment: GFR <60: | >60 | [facility] | | | GFR | [...] | | | | | | MDRD [facility] traceable | | | | | | equation.Testing | | | | | | performed at [facility] | | | | | | [address];[place], [place] | | | | | | [address] | | | | + + + + + + + + | Specimen | + + | Blood | + + + + + + + | Performing | Address | City/State/Zipcode | Phone Number | | Organization | | | | + + + + + | [facility] | [address] | [place] [address] | [phone] | + + + + + Hemoglobin and Hematocrit (10/12/2019 6:52 PM PDT) + + + + + + | Component | Value | Ref Range | Performed | Pathologist | | | | | At | Signature | + + + + + + | Hemoglobin | 9.5 (L) | 13.2 - 17.0 | [facility] | | | | | g/dL | LABORATORY | | + + + + + + | Hematocrit | 27.5 (L)Comment: Testing | 39.0 - 50.0 % | [facility] | | | | performed at [facility];888 | | LABORATORY | | | | [address];[place] | | | | | | [address] | | | | + + + + + + + + | Specimen | + + | Blood | + + + + + + + | Performing | Address | City/State/Zipcode | Phone Number | | Organization | | | | + + + + + | [facility] | [address] | [place] [address] | [phone] | + + + + + Potassium (10/12/2019 4:28 PM PDT) + + + + + + | Component | Value | Ref Range | Performed | Pathologist | | | | | At | Signature | + + + + + + | K | 3.3 (L)Comment: Testing | 3.5 - 4.9 | [facility] | | | | performed at [facility];888 | mmol/L | LABORATORY | | | | [address];[place] | | | | | | [address] | | | | + + + + + + + + | Specimen | + + | Blood | + + + + + + + | Performing | Address | City/State/Zipcode | Phone Number | | Organization | | | | + + + + + | [facility] | [address] | [place] [address] | [phone] | + + + + + Clostridium [...] C. | Negative for toxigenic | | [facility] | | | difficile, | C.difficile.Comment: | | LABORATORY | | | Interp | Testing performed at | | | | | | [facility];[address] [place] [address] | | | | | | Bl;[place] [address] | | | | + + + + + + + + | Specimen | + + | Stool - Stool | | specimen (specimen) | + + + + + + + | Performing | Address | City/State/Zipcode | Phone Number | | Organization | | | | + + + + + | [facility] | [address] | [place] [address] | [phone] | + + + + + Potassium (10/12/2019 11:02 AM PDT) + + + + + + | Component | Value | Ref Range | Performed | Pathologist | | | | | At | Signature | + + + + + + | K | 3.3 (L)Comment: Testing | 3.5 - 4.9 | [facility] | | | | performed at [facility];888 | mmol/L | LABORATORY | | | | [address];[place], [place] | | | | | | [address] | | | | + + + + + + + + | Specimen | + + | Blood | + + + + + + + | Performing | Address | City/State/Zipcode | Phone Number | | Organization | | | | + + + + + | [facility] | [address] | [place] [address] | [phone] | + + + + + Type [...] + + + | BB BAND | [id number] | | [facility] | | | | | | LABORATORY | | + + + + + + | UNIT # | [id number] | | [facility] | | | | [...] | | | RESULT | performed at [facility] | | LABORATORY | | | | [address];[place] | | | | | | [address] | | | | + + + + + + | UNIT # | [id number] | | [facility] | | | | [...] M LABORATORY | [address] | [place] [address] | [phone] | + + + + + Red [...] | [facility] | | | COMMENT | [facility];[address] | | LABORATORY | | | | [address];[place] [address] | | | | + + + + + + + + | Specimen | + + | | + + + + + + + | Performing | Address | City/State/Zipcode | Phone Number | | Organization | | | | + + + + + | [facility] | [address] | [place] [address] | [phone] | + + + + + Magnesium (10/12/2019 4:08 AM PDT) + + + + + + | Component | Value | Ref Range | Performed | Pathologist | | | | | At | Signature | + + + + + + | Magnesium | 1.9Comment: Testing | 1.7 - 2.4 mg/dL | [facility] | | | | performed at [facility];888 | | LABORATORY | | | | [address];[place], [place] | | | | | | [address] | | | | + + + + + + + + | Specimen | + + | Blood | + + + + + + + | Performing | Address | City/State/Zipcode | Phone Number | | Organization | | | | + + + + + | [facility] | [address] | [place] [address] | [phone] | + + + + + Comprehensive [...] | | | | | performed at [facility];[address] | | | | | | [address];[place], [place] | | | | | | [address] | | | | + + + + + + + + | Specimen | + + | Blood | + + + + + + + | Performing | Address | City/State/Zipcode | Phone Number | | Organization | | | | + + + + + | [facility] | [address] | [place] [address] | [phone] | + + + + + CBC [...] | [facility] | | | | NURSING [id number],TONJA H | g/dL | LABORATORY | | [...] | [facility] | | | | NURSING TONJA MORRIS | | LABORATORY | | | | [...] LABORATORY | | | | performed at [facility];[address] | | | | | | [address];[place] | | | | | | [address] | | | | + + + + + + + + | Specimen | + + | Blood | + + + + + + + | Performing | Address | City/State/Zipcode | Phone Number | | Organization | | | | + + + + + | [facility] | [address] | [place] [address] | [phone] | + + + + + Urinalysis [...] - 1.030 | [facility] | | | Hardy, | | | LABORATORY | | | [...] Bacteria, | NONE SEENComment: | NONE | [facility] | | | Urine | Testing performed at | | LABORATORY | | | | [facility], [address] | | | | | | [place] | | | | | | [address] | | | | + + + [...] + + + + + | [facility] | [address] | [place] [address] | [phone] | + + + + + Osmolality, Urine (10/11/2019 11:16 AM PDT) + + + + + + | Component | Value | Ref Range | Performed | Pathologist | | | | | At | Signature | + + + + + + | OSMO URINE | 239Comment: Testing | 50 - 1,200 | [facility] | | | | performed at [facility], [address] | mOsm/kg | LABORATORY | | | | [address], | | | | | | [place] [address] | | | | + + + [...] + + + + + | [facility] | [address] | [place] [address] | [phone] | + + + + + Culture, [...] Special | Testing performed at | | [facility] | | | Requests | [facility];[address] | | LABORATORY | | | | [address];[place] [address] | | | | + + + + + + | RESULT | NO GROWTH 6 DAYS | | [facility] | | | | | | LABORATORY | | + + + + + + | RESULT | Testing performed at | | [facility] | | | | [facility], [address] | | LABORATORY | | | | [place], [place] | | | | | | [address]Bxtrnep: Testing | | | | | | performed at [facility], [address] | | | | | | [facility], [place], [place] | | | | | | [address] | | | | + + + + + + + + | Specimen | + + | Blood - Swab of line | | insertion site | | (specimen) | + + + + + + + | Performing | Address | City/State/Zipcode | Phone Number | | Organization | | | | + + + + + | [facility] | [address] | [place] [address] | [phone] | + + + + + XR [...] Procedure Note | + + | Espinoza, [id number] - 10/11/2019 10:42 AM PDT | | [...] Special | Testing performed at | | [facility] | | | Requests | [facility];[address] | | LABORATORY | | | | [address];[place] [address] | | | | + + + + + + | RESULT | NO GROWTH 6 DAYS | | [facility] | | | | | | LABORATORY | | + + + + + + | RESULT | Testing performed at | | [facility] | | | | [facility], [address] | | LABORATORY | | | | [place], [place] | | | | | | [address]Itineyf: Testing | | | | | | performed at [facility], [address] | | | | | | [place], [place] | | | | | | [address] | | | | + + + + + + + + | Specimen | + + | Blood - Peripheral | | blood specimen | | (specimen) | + + + + + + + | Performing | Address | City/State/Zipcode | Phone Number | | Organization | | | | + + + + + | [facility] | [address] | [place] [address] | [phone] | + + + + + Sodium (10/11/2019 9:30 AM PDT) + + + + + + | Component | Value | Ref Range | Performed | Pathologist | | | | | At | Signature | + + + + + + | Na | 127 (L)Comment: Testing | 135 - 145 | [facility] | | | | performed at [facility];888 | mmol/L | LABORATORY | | | | [address];[place], [place] | | | | | | [address] | | | | + + + + + + + + | Specimen | + + | Blood | + + + + + + + | Performing | Address | City/State/Zipcode | Phone Number | | Organization | | | | + + + + + | [facility] | [address] | [place] [address] | [phone] | + + + + + Osmolality, Serum (10/11/2019 9:30 AM PDT) + + + + + + | Component | Value | Ref Range | Performed | Pathologist | | | | | At | Signature | + + + + + + | Osmolality, | 262 (L)Comment: Testing | 280 - 301 | [facility] | | | Serum | performed at [facility], [address] | mOsm/kg | LABORATORY | | | | [address], | | | | | | [place] [address] | | | | + + + + + + + + | Specimen | + + | Blood | + + + + + + + | Performing | Address | City/State/Zipcode | Phone Number | | Organization | | | | + + + + + | [facility] | [address] | [place] [address] | [phone] | + + + + + Comprehensive [...] | | | | | | MDRD [facility] traceable | | | | | | equation.Testing | | | | | | performed at [facility];[address] | | | | | | [address];[place], [place] | | | | | | [address] | | | | + + + + + + + + | Specimen | + + | Blood | + + + + + + + | Performing | Address | City/State/Zipcode | Phone Number | | Organization | | | | + + + + + | [facility] | [address] | [place] [address] | [phone] | + + + + + CBC [...] | 10.1Comment: NO NORMAL | fl | [facility] | | | | RANGE ESTABLISHEDTesting | | LABORATORY | | | | performed at [facility];[address] | | | | | | [address];[place], [place] | | | | | | [address] | | | | + + + + + + + + | Specimen | + + | Blood | + + + + + + + | Performing | Address | City/State/Zipcode | Phone Number | | Organization | | | | + + + + + | [facility] | [address] | [place] [address] | [phone] | + + + + + Comprehensive [...] 31 | 10 - 65 U/L | [facility] [...] | | | | | performed at [facility] | | | | | | [address];[place], [place] | | | | | | [address] | | | | + + + + + + + + | Specimen | + + | Blood | + + + + + + + | Performing | Address | City/State/Zipcode | Phone Number | | Organization | | | | + + + + + | [facility] | [address] | [place] [address] | [phone] | + + + + + Magnesium (10/10/2019 4:16 AM PDT) + + + + + + | Component | Value | Ref Range | Performed | Pathologist | | | | | At | Signature | + + + + + + | Magnesium | 1.8Comment: Testing | 1.7 - 2.4 mg/dL | [facility] | | | | performed at [facility];[address] | | LABORATORY | | | | [address];[place], [place] | | | | | | [address] | | | | + + + + + + + + | Specimen | + + | Blood | + + + + + + + | Performing | Address | City/State/Zipcode | Phone Number | | Organization | | | | + + + + + | [facility] | [address] | [place] [address] | [phone] | + + + + + CBC [...] 0.05Comment: Testing | 0.00 - 0.10 | [facility] | | | Absolute | performed at [facility];[address] | K/uL | LABORATORY | | | | [address];[place], [place] | | | | | | [address] | | | | + + + + + + + + | Specimen | + + | Blood | + + + + + + + | Performing | Address | City/State/Zipcode | Phone Number | | Organization | | | | + + + + + | [facility] | [address] | [place] [address] | [phone] | + + + + + Lactic Acid (10/09/2019 5:12 AM PDT) + + + + + + | Component | Value | Ref Range | Performed | Pathologist | | | | | At | Signature | + + + + + + | Lactate, | 1.8Comment: Testing | 0.4 - 2.0 | [facility] | | | Serum | performed at [facility];[address] | mmol/L | LABORATORY | | | | [address];[place], [place] | | | | | | [address] | | | | + + + + + + + + | Specimen | + + | Blood | + + + + + + + | Performing | Address | City/State/Zipcode | Phone Number | | Organization | | | | + + + + + | [facility] | [address] | [place] [address] | [phone] | + + + + + Comprehensive [...] | | | | | performed at [facility];[address] | | | | | | [address];[place], [place] | | | | | | [address] | | | | + + + + + + + + | Specimen | + + | Blood | + + + + + + + | Performing | Address | City/State/Zipcode | Phone Number | | Organization | | | | + + + + + | [facility] | [address] | [place] [address] | [phone] | + + + + + Procalcitonin [...] | | | | | | at [facility];[address] [place] [address] | | | | | | [facility];[place] [address] | | | | + + + + + + + + | Specimen | + + | Blood | + + + + + + + | Performing | Address | City/State/Zipcode | Phone Number | | Organization | | | | + + + + + | [facility] | [address] | [place] [address] | [phone] | + + + + + Phosphorus (10/09/2019 5:10 AM PDT) + + + + + + | Component | Value | Ref Range | Performed | Pathologist | | | | | At | Signature | + + + + + + | Phosphorus | 4.0Comment: Testing | 2.3 - 4.8 mg/dL | [facility] | | | | performed at [facility];[address] | | LABORATORY | | | | [address];[place] | | | | | | [address] | | | | + + + + + + + + | Specimen | + + | Blood | + + + + + + + | Performing | Address | City/State/Zipcode | Phone Number | | Organization | | | | + + + + + | [facility] | [address] | [place] [address] | [phone] | + + + + + Magnesium (10/09/2019 5:10 AM PDT) + + + + + + | Component | Value | Ref Range | Performed | Pathologist | | | | | At | Signature | + + + + + + | Magnesium | 1.7Comment: Testing | 1.7 - 2.4 mg/dL | [facility] | | | | performed at [facility];[address] | | LABORATORY | | | | [address];[place], [place] | | | | | | [address] | | | | + + + + + + + + | Specimen | + + | Blood | + + + + + + + | Performing | Address | City/State/Zipcode | Phone Number | | Organization | | | | + + + + + | [facility] | [address] | [place] [address] | [phone] | + + + + + CBC [...] Comment | SLIDE SCANNED, AGREES | | [facility] | | | | WITH AUTOMATED | | LABORATORY | | | | RESULTS.Comment: Testing | | | | | | performed at [facility] | | | | | | [address];[place], [place] | | | | | | [address] | | | | + + + + + + + + | Specimen | + + | Blood | + + + + + + + | Performing | Address | City/State/Zipcode | Phone Number | | Organization | | | | + + + + + | [facility] | [address] | [place] [address] | [phone] | + + + + + POC Glucose (10/09/2019 12:47 AM PDT) + + + + + + | Component | Value | Ref Range | Performed | Pathologist | | | | | At | Signature | + + + + + + | Glucose, | 128 (H)Comment: Testing | 65 - 99 mg/dL | [place] | | | POC | performed at [facility];[address] | LABORATORY | [address];[place] | | | | | | [address] | | | | + + + + + + + + | Specimen | + + | | + + + + + + + | Performing | Address | City/State/Zipcode | Phone Number | | Organization | | | | + + + + + | [facility] | [address] | [place] [address] | [phone] | + + + + + Phosphorus (10/08/2019 5:23 PM PDT) + + + + + + | Component | Value | Ref Range | Performed | Pathologist | | | | | At | Signature | + + + + + + | Phosphorus | 3.4Comment: Testing | 2.3 - 4.8 mg/dL | [place] | | | | performed at [facility];[address] | | LABORATORY | | | | [address];[place], [place] | | | | | | [address] | | | | + + + + + + + + | Specimen | + + | Blood | + + + + + + + | Performing | Address | City/State/Zipcode | Phone Number | | Organization | | | | + + + + + | [facility] | [address] | [place] [address] | [phone] | + + + + + Magnesium (10/08/2019 5:23 PM PDT) + + + + + + | Component | Value | Ref Range | Performed | Pathologist | | | | | At | Signature | + + + + + + | Magnesium | 1.8Comment: Testing | 1.7 - 2.4 mg/dL | [facility] | | | | performed at [facility];[address] | | LABORATORY | | | [address];[place], [place] | | | | | | [address] | | | | + + + + + + + + | Specimen | + + | Blood | + + + + + + + | Performing | Address | City/State/Zipcode | Phone Number | | Organization | | | | + + + + + | [facility] | [address] | [place] [address] | [phone] | + + + + + CBC [...] at | | | | | | [facility];[address] [place] [address] | | | | | | Blvd;[place] [address] | | | | + + + + + + + + | Specimen | + + | Blood | + + + + + + + | Performing | Address | City/State/Zipcode | Phone Number | | Organization | | | | + + + + + | [facility] | [address] | [place] [address] | [phone] | + + + + + Basic [...] | | | | | performed at [facility] | | | | | | [facility];[place], [place] | | | | | | [address] | | | | + + + + + + + + | Specimen | + + | Blood | + + + + + + + | Performing | Address | City/State/Zipcode | Phone Number | | Organization | | | | + + + + + | [facility] | [address] | [place] [address] | [phone] | + + + + + PTT (10/08/2019 5:23 PM PDT) + + + + + + | Component | Value | Ref Range | Performed | Pathologist | | | | | At | Signature | + + + + + + | PTT | 32Comment: Testing | 23 - 32 seconds | KT | | | | performed at [facility];[address] | | LABORATORY | | | | [address];[place] | | | | | | [address] | | | | + + + + + + + + | Specimen | + + | Blood | + + + + + + + | Performing | Address | City/State/Zipcode | Phone Number | | Organization | | | | + + + + + | [facility] | [address] | [place] [address] | [phone] | + + + + + POC ISTAT, CG8, Arterial (10/08/2019 2:04 PM PDT) + [...] | | | POC | performed at [facility];[address] | g/dL | LABORATORY | | | | [address];[place], [place] | | | | | | [address] | | | | + + + + + + + + | Specimen | + + | | + + + + + + + | Performing | Address | City/State/Zipcode | Phone Number | | Organization | | | | + + + + + | [facility] | [address] | [place] [address] | [phone] | + + + + + POC ISTAT, CG8, Arterial (10/08/2019 1:22 PM PDT) + [...] | | | POC | performed at [facility];888 | g/dL | LABORATORY | | | | [address];[place] | | | | | | [address] | | | | + + + + + + + + | Specimen | + + | | + + + + + + + | Performing | Address | City/State/Zipcode | Phone Number | | Organization | | | | + + + + + | [facility] | [address] | [place] [address] | [phone] | + + + + + Basic [...] 7.2 (L) | 8.5 - 10.5 | [facility] | | | | | mg/dL | LABORATORY | | + + + + + + | Estimated | >60Comment: GFR <60: | >60 | [facility] | | | GFR | [...] | | | | | | MDRD IDNM traceable | | | | | | equation.Testing | | | | | | performed at [facility], [address] | | | | | | [facility], | | | | | | [place] [address] | | | | + + + + + + + + | Specimen | + + | Blood | + + + + + + + | Performing | Address | City/State/Zipcode | Phone Number | | Organization | | | | + + + + + | [facility] | [address] | [place] [address] | [phone] | + + + + + CBC [...] | | | Absolute | performed at [facility], [address] | K/uL | LABORATORY | | | | [address], | | | | | | [place] [address] | | | | + + + + + + + + | Specimen | + + | Blood | + + + + + + + | Performing | Address | City/State/Zipcode | Phone Number | | Organization | | | | + + + + + | [facility] | [address] | [place] [address] | [phone] | + + + + + Magnesium (10/08/2019 5:44 AM PDT) + + + + + + | Component | Value | Ref Range | Performed | Pathologist | | | | | At | Signature | + + + + + + | Magnesium | 1.6 (L)Comment: Testing | 1.7 - 2.4 mg/dL | [facility] | | | | performed at [facility];[address] | | LABORATORY | | | | [address];[place] | | | | | | [address] | | | | + + + + + + + + | Specimen | + + | Blood | + + + + + + + | Performing | Address | City/State/Zipcode | Phone Number | | Organization | | | | + + + + + | [facility] | [address] | [place] [address] | [phone] | + + + + + PTT (10/07/2019 5:21 PM PDT) + + + + + + | Component | Value | Ref Range | Performed | Pathologist | | | | | At | Signature | + + + + + + | PTT | 28Comment: Testing | 23 - 32 seconds | KT | | | | performed at [facility];[address] | | LABORATORY | | | | [address];[place] | | | | | | [address] | | | | + + + + + + + + | Specimen | + + | Blood - Artery, | | Radial, Right | + + + + + + + | Performing | Address | City/State/Zipcode | Phone Number | | Organization | | | | + + + + + | [facility] | [address] | [place] [address] | [phone] | + + + + + Protime [...] | | | | | performed at [facility] | | | | | | [address];[place], [place] | | | | | | [address] | | | | + + + + + + + + | Specimen | + + | Blood - Artery, | | Radial, Right | + + + + + + + | Performing | Address | City/State/Zipcode | Phone Number | | Organization | | | | + + + + + | [facility] | [address] | [place] [address] | [phone] | + + + + + Basic [...] 7.0 (L) | 8.5 - 10.5 | [facility] | | | | | mg/dL | LABORATORY | | + + + + + + | Estimated | >60Comment: GFR <60: | >60 | [facility] | | | GFR | [...] | | | | | performed at [facility];[address] | | | | | | [address];[place], [place] | | | | | | [address] | | | | + + + + + + + + | Specimen | + + | Blood - Artery, | | Radial, Right | + + + + + + + | Performing | Address | City/State/Zipcode | Phone Number | | Organization | | | | + + + + + | [facility] | [address] | [place] [address] | [phone] | + + + + + CBC [...] | 10.6Comment: NO NORMAL | fl | KT | | | | RANGE ESTABLISHEDTesting | | LABORATORY | | | | performed at [facility];[address] | | | | | | [address];[place] | | | | | | [address] | | | | + + + + + + + + | Specimen | + + | Blood - Right upper | | arm structure (body | | structure) | + + + + + + + | Performing | Address | City/State/Zipcode | Phone Number | | Organization | | | | + + + + + | [facility] | [address] | [place] [address] | [phone] | + + + + + Surgical [...] | including foreign body giant cell reaction. AMB:[facility]:C2NR MICROSCOPIC | | | EXAMINATION:Histologic sections of [...] attached red-white | | | fibromembranous tissue. Housekeeping Assistant sections are submitted in | | | [...] | LABORATORY:The technical component was performed by [employer] | | | [employer], [address] [place] [address] (C Wpf Developer: | | | Asia Rodriguez MD; CLIA# [id number]).Professional interpretation was | | | performed by [facility], [address] | | | [place] [address] (C Wpf Developer: [employer] | | | Jacky Recio; CLIA#: [id number]). Diagnostician: Asia Rodriguez | | | MDPathologistElectronically Signed 10/10/2019 | | | | | |PERFORMING LABORATORY: | | |The technical component was performed by [employer], [address] [place] [address] (C Wpf Developer: Asia Rodriguez MD; CLIA# [id number]). | | |Professional interpretation was performed by [facility], [address] [place] [address] (C Wpf Developer: Solitario Recio M.D.; CLIA#: [id number]). | | | | | |Diagnostician: Asia [...] | | | POC | performed at [facility];[address] | g/dL | LABORATORY | | | | [address];[place] | | | | | | [address] | | | | + + + + + + + + | Specimen | + + | | + + + + + + + | Performing | Address | City/State/Zipcode | Phone Number | | Organization | | | | + + + + + | [facility] | [address] | [place] [address] | [phone] | + + + + + Red [...] BANK | Testing performed at | | [facility] | | | COMMENT | [facility];[address] [facility] | | LABORATORY | | | | Blvd;[place] [address] | | | | + + + + + + + + | Specimen | + + | | + + + + + + + | Performing | Address | City/State/Zipcode | Phone Number | | Organization | | | | + + + + + | [facility] | [address] | [place] [address] | [phone] | + + + + + POC MIRNA, CG8, Arterial (10/07/2019 12:37 PM PDT) + [...] | | | POC | performed at [facility];[address] | g/dL | LABORATORY | | | | [address];[place], [place] | | | | | | [address] | | | | + + + + + + + + | Specimen | + + | | + + + + + + + | Performing | Address | City/State/Zipcode | Phone Number | | Organization | | | | + + + + + | [facility] | [address] | [place] [address] | [phone] | + + + + + POC EDWARD BRADLEY Arterial (10/07/2019 10:47 AM PDT) + + [...] | | | POC | performed at [facility];[address] | g/dL | LABORATORY | | | | [address];[place] | | | | | | [address] | | | | + + + + + + + + | Specimen | + + | | + + + + + + + | Performing | Address | City/State/Zipcode | Phone Number | | Organization | | | | + + + + + | [facility] | [address] | [place] [address] | [phone] | + + + + + POC ISTAT, CG8, Arterial (10/07/2019 8:40 AM PDT) + [...] 14.3Comment: Testing | 13.7 - 16.7 | [facility] | | | POC | performed at [facility];[address] | g/dL | LABORATORY | | | | [address];[place], [place] | | | | | | [address] | | | | + + + + + + + + | Specimen | + + | | + + + + + + + | Performing | Address | City/State/Zipcode | Phone Number | | Organization | | | | + + + + + | [facility] | [address] | [place] [address] | [phone] | + + + + + Red [...] | [facility] | | | COMMENT | [facility];[address] | | LABORATORY | | | | Blvd;[place] [address] | | | | + + + + + + + + | Specimen | + + | | + + + + + + + | Performing | Address | City/State/Zipcode | Phone Number | | Organization | | | | + + + + + | [facility] | [address] | [place] [address] | [phone] | + + + + + Magnesium (10/07/2019 3:55 AM PDT) + + + + + + | Component | Value | Ref Range | Performed | Pathologist | | | | | At | Signature | + + + + + + | Magnesium | 1.6 (L)Comment: Testing | 1.7 - 2.4 mg/dL | [facility] | | | | performed at [facility];[address] | | LABORATORY | | | | [address];[place] | | | | | | [address] | | | | + + + + + + + + | Specimen | + + | Blood | + + + + + + + | Performing | Address | City/State/Zipcode | Phone Number | | Organization | | | | + + + + + | [facility] | [address] | [place] [address] | [phone] | + + + + + Type [...] + + + | BB BAND | ESTATE [employer]30 | | [facility] | | | | | | LABORATORY | | + + + + + + | UNIT # | [id number] | | [facility] | | | | [...] + + + | UNIT # | [id number] | | [facility] | | | | [...] + + + | UNIT # | [id number] | | [facility] | | | | [...] + + + | UNIT # | [id number] | | [facility] | | | | [...] | | | RESULT | performed at [facility] | | LABORATORY | | | | [address];[place], [place] | | | | | | [address] | | | | + + + + + + + + | Specimen | + + | Blood | + + + + + + + | Performing | Address | City/State/Zipcode | Phone Number | | Organization | | | | + + + + + | [facility] | [address] | [place] [address] | [phone] | + + + + + Basic [...] >60Comment: GFR <60: | >60 | [facility] | | | GFR | [...] | | | | | | MDRD IDNM traceable | | | | | | equation.Testing | | | | | | performed at [facility];[address] | | | | | | [address];[place], [place] | | | | | | [address] | | | | + + + + + + + + | Specimen | + + | Blood | + + + + + + + | Performing | Address | City/State/Zipcode | Phone Number | | Organization | | | | + + + + + | [facility] | [address] | [place] [address] | [phone] | + + + + + CBC [...] | | | Absolute | performed at [facility];[address] | K/uL | LABORATORY | | | | [address];[place], [place] | | | | | | [address] | | | | + + + + + + + + | Specimen | + + | Blood | + + + + + + + | Performing | Address | City/State/Zipcode | Phone Number | | Organization | | | | + + + + + | [facility] | [address] | [place] [address] | [phone] | + + + + + Magnesium (10/06/2019 6:27 AM PDT) + + + + + + | Component | Value | Ref Range | Performed | Pathologist | | | | | At | Signature | + + + + + + | Magnesium | 1.6 (L)Comment: Testing | 1.7 - 2.4 mg/dL | [facility] | | | | performed at [facility];[address] | | LABORATORY | | | | [address];[place] | | | | | | [address] | | | | + + + + + + + + | Specimen | + + | Blood | + + + + + + + | Performing | Address | City/State/Zipcode | Phone Number | | Organization | | | | + + + + + | [facility] | [address] | [place] [address] | [phone] | + + + + + Basic [...] | | | | | | MDRD IDNM traceable | | | | | | equation.Testing | | | | | | performed at [facility], [address] | | | | | | [facility], | | | | | | [place] [address] | | | | + + + + + + + + | Specimen | + + | Blood | + + + + + + + | Performing | Address | City/State/Zipcode | Phone Number | | Organization | | | | + + + + + | [facility] | [address] | [place] [address] | [phone] | + + + + + CBC [...] | | | Absolute | performed at [facility], [address] | K/uL | LABORATORY | | | | [address], | | | | | | [place] [address] | | | | + + + + + + + + | Specimen | + + | Blood | + + + + + + + | Performing | Address | City/State/Zipcode | Phone Number | | Organization | | | | + + + + + | [facility] | [address] | [place] [address] | [phone] | + + + + + Magnesium (10/05/2019 5:02 AM PDT) + + + + + + | Component | Value | Ref Range | Performed | Pathologist | | | | | At | Signature | + + + + + + | Magnesium | 1.7Comment: Testing | 1.7 - 2.4 mg/dL | [facility] | | | | performed at [facility];[address] | | LABORATORY | | | | [address];[place] | | | | | | [address] | | | | + + + + + + + + | Specimen | + + | Blood | + + + + + + + | Performing | Address | City/State/Zipcode | Phone Number | | Organization | | | | + + + + + | [facility] | [address] | [place] [address] | [phone] | + + + + + Basic [...] | | | | | performed at [facility], [address] | | | | | | [facility], | | | | | | [place] [address] | | | | + + + + + + + + | Specimen | + + | Blood | + + + + + + + | Performing | Address | City/State/Zipcode | Phone Number | | Organization | | | | + + + + + | [facility] | [address] | [place] [address] | [phone] | + + + + + CBC [...] | | | Absolute | performed at [facility], [address] | K/uL | LABORATORY | | | | [address], | | | | | | [place] [address] | | | | + + + + + + + + | Specimen | + + | Blood | + + + + + + + | Performing | Address | City/State/Zipcode | Phone Number | | Organization | | | | + + + + + | [facility] | [address] | [place] [address] | [phone] | + + + + + ECHO [...] Signed by: Jacky Anderson, Nicolas Sign Date/Time: | | | 10/04/2019 12:06 [...] | Procedure Note | + + | [facility], [id number] - 10/04/2019 12:10 PM PDT | | [...] Final Report Signed by: Jacky Anderson Timothy | | Sign Date/Time: 10/04/2019 12:06 PM [...] + + + + | SOURCE: | LUCY(NOSE) | | [facility] | | | | | | LABORATORY | | + + + + + + | Result | NEGATIVEComment: Testing | MRSNEG | [facility] | | | | performed at [facility];[address] | | LABORATORY | | | | [address];[place] | | | | | | [address] | | | | + + + + + + + + | Specimen | + + | Tissue - Both | | anterior nares (body | | structure) | + + + + + + + | Performing | Address | City/State/Zipcode | Phone Number | | Organization | | | | + + + + + | [facility] | [address] | [place] [address] | [phone] | + + + + + Zeinabime INR (10/04/2019 6:12 AM PDT) + + [...] | | | | | performed at [facility] | | | | | | [address];[place], [place] | | | | | | [address] | | | | + + + + + + + + | Specimen | + + | Blood | + + + + + + + | Performing | Address | City/State/Zipcode | Phone Number | | Organization | | | | + + + + + | [facility] | [address] | [place] [address] | [phone] | + + + + + Uric Acid (10/04/2019 4:26 AM PDT) + + + + + + | Component | Value | Ref Range | Performed | Pathologist | | | | | At | Signature | + + + + + + | Uric Acid | 3.2Comment: Testing | 3.2 - 8.6 mg/dL | [facility] | | | | performed at [facility], [address] | | LABORATORY | | | | [address], | | | | | | [place] [address] | | | | + + + + + + + + | Specimen | + + | Blood | + + + + + + + | Performing | Address | City/State/Zipcode | Phone Number | | Organization | | | | + + + + + | [facility] | [address] | [place] [address] | [phone] | + + + + + Lipid Panel (10/04/2019 4:26 AM PDT) + + + + + + | Component | Value | Ref Range | Performed | Pathologist | | | | | At | Signature | + + + + + + | Cholesterol | 129 | <200 mg/dL | [facility] | | | | [...] | | | Calculated | performed at [facility], [address] | | LABORATORY | | | | [address], | | | | | | [place] [address] | | | | + + + + + + + + | Specimen | + + | Blood | + + + + + + + | Performing | Address | City/State/Zipcode | Phone Number | | Organization | | | | + + + + + | [facility] | [address] | [place] [address] | [phone] | + + + + + Comprehensive [...] 35 | 10 - 65 U/L | [facility] [...] | | | | | | MDRD [facility] traceable | | | | | | equation.Testing | | | | | | performed at [facility], [address] | | | | | | [facility], | | | | | | [place] [address] | | | | + + + + + + + + | Specimen | + + | Blood | + + + + + + + | Performing | Address | City/State/Zipcode | Phone Number | | Organization | | | | + + + + + | [facility] | [address] | [place] [address] | [phone] | + + + + + CBC [...] | | | Absolute | performed at [facility], [address] | K/uL | LABORATORY | | | | [address], | | | | | | [place] [address] | | | | + + + + + + + + | Specimen | + + | Blood | + + + + + + + | Performing | Address | City/State/Zipcode | Phone Number | | Organization | | | | + + + + + | [facility] | [address] | [place] [address] | [phone] | + + + + + Coronavirus (COVID-19) NAAT (10/04/2019 12:49 AM PDT) + + + + + + | Component | Value | Ref Range | Performed | Pathologist | | | | | At | Signature | + + + + + + | SARS-CoV-2, | NEGATIVEComment: This | NEG | [facility] | | | NAAT | [...] | | | | | performed at [facility];[address] | | | | | | [address] [facility];[place], [place] | | | | | | [address] | | | | + + + + + + + + | Specimen | + + | Tissue - Entire | | nasopharynx (body | | structure) | + + + + + + + | Performing | Address | City/State/Zipcode | Phone Number | | Organization | | | | + + + + + | [facility] | [address] | [place] [address] | [phone] | + + + + + ECG [...] | | | | XIANG HART MD ([id number]) | | | | | | on [...] BB BAND | [address] | | [facility] | | | | | | LABORATORY | | + + + + + + | BB BAND | Testing performed at | | [facility] | | | | [address] | | LABORATORY | | | | [address];[place] [address] | | | | + + + + + + + + | Specimen | + + | Blood | + + + + + + + | Performing | Address | City/State/Zipcode | Phone Number | | Organization | | | | + + + + + | [facility] | [address] | [place] [address] | [phone] | + + + + + Comprehensive [...] >60Comment: GFR <60: | >60 | [facility] | | | GFR | [...] | | | | | performed at [facility];[address] | | | | | | [address];[place], [place] | | | | | | [address] | | | | + + + + + + + + | Specimen | + + | Blood | + + + + + + + | Performing | Address | City/State/Zipcode | Phone Number | | Organization | | | | + + + + + | [facility] | [address] | [place] [address] | [phone] | + + + + + CBC [...] | | | Absolute | performed at [facility];[address] | K/uL | LABORATORY | | | | [address];[place], [place] | | | | | | [address] | | | | + + + + + + + + | Specimen | + + | Blood | + + + + + + + | Performing | Address | City/State/Zipcode | Phone Number | | Organization | | | | + + + + + | [facility] | [address] | [place] [address] | [phone] | + + + + + documented [...] | | | | | dose on Wed10/08/19 at 1600 | | AM PDT | [...] | | | | | | Starting [facility] 10/12/19 at 1744 | | | | [...] 9:04 | Units | | | | 10/07/19 at 0904, Intra-op | | AM PDT [...] PRN, Per | | | protocol, Starting Wed10/11/19 at | | | 1111, NON-ICU Protocol [...]
--- OUTSIDE RECORDS SUMMARY | ~2019-11-02 | XMS | Encounter Summary ---
Demographics + + + | Address | [address] | | | [place] [address] | + + + | Home Phone | | + + + | Preferred Language | Unknown | + + + | Marital Status | Single | + + + | Jain Affiliation | BAP | + + + [...] Team Providers + +------+ + | Care Weather Analyst Name | Role | Phone | + +------+ + PCP | Unavailable | + +------+ + Encounter Details +--------+ + + + + | Date | Type | Department | Care Team | Description | +--------+ + + + + | // | Discharge | | Roman Swartz | D/C Summary ODDS | | 2008 | Summary-Tra | | MD Edgardo [address] | | | | nscribed | | [address] | | | | | | [place] [address] | | +--------+ + + + + [...] documented as of this encounter Discharge Summaries Maxime Roman Reynoso - 05/13/2007 1:34 PM PDT [id number] FROILAN JUAREZ [id number] Admission Date: 04/29/2007 Discharge Date: 05/02/2007 Staff Physician: Orlando Churchill M.D. Principal Final Diagnosis: 1. Abdominal aortic pseudoaneurysm. 2. Peripheral vascular disease. Secondary Diagnoses: 1. Coronary artery disease. 2. History of alcohol abuse. 3. History of tobacco abuse. 4. Previous placement of aortobifemoral graft. Principal Procedure: 1. Endovascular repair of abdominal pseudoaneurysm on 04/30/2007 under angiography. 2. Chest radiographs. 3. CT scan of the abdomen and pelvis with and without contrast. Reason for Admission: Mr. Theodore is a very pleasant 47-year-old male with the above-mentioned history who has had some acute onset of right lower quadrant pain on 04/29/2007 and went to his local Emergency Department. He had a CT scan there and was found to have abdominal aortic pseudoaneurysm. He was transferred to [facility] for definitive care. During the entire time, he was completely hemodynamically stable. He was admitted to the Surgical ICU. Brief Hospital Course: The patient was admitted to the Surgical ICU on 04/29/2007 for the above-mentioned diagnoses. During that time, he remained entirely hemodynamically stable. Therefore, it was determined that the patient met criteria for placement of an endovascular repair of abdominal aortic pseudoaneurysm with grafting stenting. This was performed on 04/30/2007 under the supervision of Dr. Churchill from Vascular Surgery. No complications were noted per the computer-generated operative report. The patient had a relatively uncomplicated postoperative course. He was eventually transferred to the floor in stable condition. He continued to progress well. The patient was seen on the morning of 05/02/2007 with Vascular Surgery team, and it was determined that the patient met criteria for discharge home. The patient had palpable bilateral lower extremity DP and PT pulses. Condition on Discharge: Stable. Discharge Medication(s): 1. Aspirin enteric coated 325 mg 1 p.o. daily, quantity #30, six refills. 2. Metoprolol 12.5 mg 1 p.o. b.i.d., quantity #60 with 6 refills. 3. Oxycodone 5 mg 1 to 3 p.o. q.3 h. p.r.n. pain, quantity #50, zero refills. 4. Tylenol 325 mg 1 to 2 p.o. q.4-6 h. p.r.n. pain or fever, quantity #100, six refills. Discharge Instruction(s): 1. Diet: Cardiac diet. 2. Activity: The patient is not to drive or operate heavy machinery while taking pain medications. He is to limit his lifting to less than 10 pounds. Weightbearing is limited to as tolerated. Bathing is limited to sponge bath and showers. No soaking in tub baths or hot tubs. He may return to work or school when cleared by physician at followup appointment. 3. The patient has been instructed to call [facility] or 911 should he experience any difficulty breathing or unusual shortness of breath, excessive bleeding, drainage at the operative site, fevers, chills, increased pain that is not relieved by pain medications, or persistent nausea or vomiting. 4. Followup: The patient is to follow up with [facility] in approximately 2 weeks' time and has been provided phone number and should call for an appointment. I also e-mailed the Vascular Surgery level vial grinder with the patient's information to call the patient to schedule appointment as well. The patient should also follow up with his primary care doctor in 1 to 2 weeks and is to call to schedule appointment. Jacky Elizabeth M.D. PDF / HS [id number] / [id number] / [id number] / Reviewed or Edited By Roman Swartz M.D. on 05-10-2007 Electronically signed by Orlando Churchill 05-13-2007 01:33:23 PM documented in this encounter Plan of Treatment Not on filedocumented as of this encounter Visit Diagnoses Not on filedocumented in this encounter"
--- OUTSIDE RECORDS SUMMARY | ~2019-11-02 | XMS | Encounter Summary ---
Demographics + + + | Address | [address] | | | [place] [address] | + + + | Home Phone | | + + + | Preferred Language | Unknown | + + + | Marital Status | Single | + + + | Islam Affiliation | BAP | + + + [...] Team Providers + +------+ + | Care Telemetry Technician Name | Role | Phone | + +------+ + PCP | Unavailable | + +------+ + Encounter Details +--------+ + + + + | Date | Type | Department | Care Team | Description | +--------+ + + + + | 05/11/ | Office | | Bina Harrington, | Progress Note | | 2007 | Visit-Trans | | [address] | | | | cribed | | [facility] | | | | | | [place] [address] | | | | | | [phone] | | +--------+ + + + + [...] documented as of this encounter Progress Notes Bina Harrington - 05/18/2007 9:27 AM PDT [id number] 05/12/19 08 [id number] FROILAN JUAREZ [id number] Date: 05/12/2007 Patient: Jairo Theodore MR# [id number] The patient called to say that he is not able to keep his appointment on May 16, 2007, due to transportation issues. The patient cannot afford gas from [employer]. He states he is doing well. His incision line is without erythema, edema, or exudate. He is having no pain and not requiring any oxycodone. He is in the process of finding a PCP. He does have a 6-month refill of his metoprolol which he is taking. Bina Harrington, N.P. / [id number] / [id number] / [id number] / [id number] C: 05/18/2007 rosa documented in this encounter Plan of Treatment Not on filedocumented as of this encounter Visit Diagnoses Not on filedocumented in this encounter"
--- OUTSIDE RECORDS SUMMARY | ~2019-11-02 | XMS | Encounter Summary ---
Demographics + + + | Address | [address] | | | [place] [address] | + + + | Home Phone [...] Team Providers + +------+ + | Care Golf Club Head Inspector Name | Role | Phone | + [...] + + | 10/07/ | Anesthesia | [facility] | [facility] | | | 2020 | Event | [facility] | DO [address] | | | | | [address] | [address] | | | | | [address] | [place] [address] | | | | | [place], [place] | [phone] | | | | | [address] | | | | | | [phone] | | | +--------+ + + + [...] +----+---+ + + | | 1 | Cheyney | | | | 0 | 43-degrees | | | | 0 | | | | | 0 | | | +----+---+ + + | | 1 | Quick Note | PRBC transfusion Unit [id number] | | | 3 | | | | | 3 | | | | | 2 | | | +----+---+ + + | | 1 | Quick Note | PRB unit [id number] | | | 3 | | | [...] Amanda Tim RN | | IV | crmo-maa-enofvo catheter system; | | | | | [...] EVALUATION Jairo Theodore 59 y.o. male 1960 [id number] Procedure(s) THROMBECTOMY / EMBOLECTOMY of fem fem bypass (N/A ) BYPASS GRAFT FEMORAL-POPLITEAL (Bilateral Leg Upper) ANGIOGRAM - EXTREMITY BILATERAL (81420) (Bilateral ) Cooperates? Yes Mental Status Answers [...] Orlando Ambriz DO 10/08/2019 2:39 PM PDT [facility] Orlando Ambriz DO at [...] EVALUATION Jairo Theodore 59 y.o. male 1960 [id number] Procedure(s): THROMBECTOMY / EMBOLECTOMY of fem fem [...] who presents as a tra nsfer from [facility] ED for pseudoaneurysm of the right [...] NOTE Jairo Theodore 59 y.o. male 1960 [id number] THROMBECTOMY / EMBOLECTOMY of fem fem bypass (N/A ) BYPASS GRAFT FEMORAL-POPLITEAL (Bilateral Leg Upper) ANGIOGRAM - EXTREMITY BILATERAL (33060) (Bilateral ) HANDOFF NOTE Handoff Protocol Used: [...] Orlando Ambriz DO 10/08/2019 2:33 PM PDT [facility] Orlando Ambriz DO at [...] [place] | | | | | | [address] | | | | | | | | +--------+ + + + + | 11/07/ | Office | Vascular Surgery | Ricci De León DNP | | 2019 | Visit | | [address] | | | | | | [place] | | | | | | [address] | | | | | | | [...] + +---------+ +------+------+------+ +---------+ +---+---+---+ | New Bag | 10/08/19 | | [...] | | | | to Incision, Starting Wed10/06/19 | | | | | | | [...] | | | PRN, Starting 10/08/19 at 1408, | | PM PDT | | | | | Anesthesia Intra-op | | | | | | + +-------+ +------+---+---+ +---+---+ | | | +---+---+ + +-------+ +-------+---+---+ | esmolol (BREVIBLOC) 10 mg/mL | Given | 10/08/19 | 20 mg | | | | injection Intravenous, PRN, | | 20 2:36 | | | | | Starting 10/08/19 at 1436, | | PM PDT | [...] | PRN, Starting 10/08/19 at | | AM PDT | [...]
--- OUTSIDE RECORDS SUMMARY | ~2019-11-02 | XMS | Encounter Summary ---
Demographics + + + | Address | [address] | | | [place] [address] | + + + | Home Phone [...] Team Providers + +------+ + | Care Butter Production Supervisor Name | Role | Phone | + [...] | | | | cribed | | [facility] | | | | | | [place] [address] | | | | | | [phone] | | +--------+ + + + + [...] Bina Harrington - 05/18/2007 9:27 AM PDT [id number] 05/12/19 08 [id number] FROILAN JUAREZ [id number] Date: 05/12/2007 Patient: Jairo Theodore MR# [id number] The patient called to say that he is not able to keep his appointment on May 16, 2007, due to transportation issues. The patient cannot afford gas from [employer]. He states he is doing well. His incision line is without erythema, edema, or exudate. He is having no pain and not requiring any oxycodone. He is in the process of finding a PCP. He does have a 6-month refill of his metoprolol which he is taking. Bina Harrington, N.P. / [id number] / [id number] / [id number] / [id number] C: 05/18/2007 rosa documented in this encounter Plan of Treatment Not on filedocumented as of this encounter Visit Diagnoses Not on filedocumented in this encounter"
--- OUTSIDE RECORDS SUMMARY | ~2019-11-02 | XMS | Encounter Summary ---
Demographics + + + | Address | [address] | | | [place] [address] | + + + | Home Phone | | + + + | Preferred Language | Unknown | + + + | Marital Status | Single | + + + | Lutheran Affiliation | BAP | + + + | Race | White | + + + | Ethnic Group | Not or | + + + Author + + + | Author | [facility] | + + + | Organization | [facility] | + + + | Address | Unknown | + + + | Phone | Unavailable | + + + Support + + +---------+ + | Name | Relationship | Address | Phone | + + +---------+ + | Lele Conley | ECON | Unknown | | + + +---------+ + Care Team Providers + +------+ + | Care Nursing Project Coordinator Name | Role | Phone | + +------+ + PCP | Unavailable | + +------+ + Encounter Details +--------+ + + + + | Date | Type | Department | Care Team | Description | +--------+ + + + + | 05/01/ | Documentati | Anesthesiology | Unknown . | | | 2007 | on | [address] | | | | | | [place], | | | | | | [place] [address] | | | +--------+ + + + [...] + + documented as of this encounter Procedure Notes Unknown - 05/02/2007 12:07 PM PSTAssociated Order(s): ANESTHESIA/SEDATION Anesthesia PostO p Report Patient: LARRY THEODORE [facility] Rec: [id number] Sex M Bdate: 1960 Date/Time Data Entered Into [facility] Anesth PostOp Surgery Date [id number] 05/02/07 12:07 Anesthesiologist NOEL CASH 05/02/07 12:07 documented in this encounter Plan of Treatment Not on filedocumented as of this encounter Procedures + +--------+ + + + | Procedure Name | Priori | Date/Time | Associated Diagnosis | Comments | | | ty | | | | + +--------+ + + + | ANESTHESIA/SEDATION | | 05/02/2007 | | Results for this | | | | 12:07 PM | | procedure are in the | | | | PST | | results section. | + +--------+ + + + documented in this encounter Results ANESTHESIA/SEDATION (05/02/2007 12:07 PM PST) + + + | Narrative | Performed At | + + + | Ordered by an unspecified provider. | | + + + + + | Transcriptions | + + | 05/02/2007 12:07 PM [facility] Anesthesia PostOp Report | | | | Patient: LARRY THEODORE [facility] Rec: [id number] Sex M Bdate: 1960 | | Date/Time Data | | Entered Into [facility] | | Anesth PostOp | | Surgery Date [id number] 05/02/07 12:07 | | Anesthesiologist NOEL CASH 05/02/07 12:07 | | | + + documented in this encounter Visit Diagnoses Not on filedocumented in this encounter"
--- OUTSIDE RECORDS SUMMARY | ~2019-11-02 | XMS | Encounter Summary ---
Demographics + + + | Address | [address] | | | [place] [address] | + + + | Home Phone | | + + + | Preferred Language | Unknown | + + + | Marital Status | Single | + + + | Bahai Affiliation | BAP | + + + | Race | White | + + + | Ethnic Group | Not or | + + + Author + + + | Author | [facility] | + + + | Organization | [facility] | + + + | Address | Unknown | + + + | Phone | Unavailable | + + + Support + + +---------+ + | Name | Relationship | Address | Phone | + + +---------+ + | Lele Conley | ECON | Unknown | | + + +---------+ + Care Team Providers + +------+ + | Care Last Marker Name | Role | Phone | + +------+ + | No Pcp Per Patient | PCP | Unavailable | + +------+ + Encounter Details +--------+ + + + + | Date | Type | Department | Care Team | Description | +--------+ + + + + | / | Hospital | Registration [address] | [place], | | | 2008 | Activity | [address] | [address] | | | | | [address] Mailcode: [id number] | [address] | | | | | [place], [place] | [place], [place] | | | | | [address] | [address] | | | | | [phone] | [phone] | | | | | | | [...] as of this encounter Plan of Treatment + +---------+--------+ + + | Name | Type | Priori | Associated Diagnoses | Date/Time | | | | ty | | | + +---------+--------+ + + | X-RAY CHEST 1 VIEW | Imaging | Urgent | | 04/29/2007 7:35 PM | | | | | | PST | + +---------+--------+ + + documented as of this encounter Procedures + +--------+ + + + | Procedure Name | Priori | Date/Time | Associated Diagnosis | Comments | | | ty | | | | + +--------+ + + + | BASIC METABOLIC SET | Routin | 05/02/2007 | | Results for this | | (NA, K, CL, TCO2, | e | 5:19 AM | | procedure are in the | | BUN, CR, GLU, CA) | | PST | | results section. | + +--------+ + + + | CBC ONLY | Routin | 05/02/2007 | | Results for this | | | e | 5:19 AM | | procedure are in the | | | | PST | | results section. | + +--------+ + + + | HEPARIN PLT AB DAYRON | Routin | 05/01/2007 | | Results for this | | AGG, SERUM | e | 12:00 PM | | procedure are in the | | | | PST | | results section. | + +--------+ + + + | POTASSIUM, PLASMA | Urgent | 05/01/2007 | | Results for this | | | | 12:00 PM | | procedure are in the | | | | PST | | results section. | + +--------+ + + + | RENAL FUNCTION SET | Urgent | 05/01/2007 | | Results for this | | (NA,K,CL,CO2,BUN,CRE | | 2:10 AM | | procedure are in the | | AT,GLUC,CA,PHOS,ALB | | PST | | results section. | | ) | | | | | + +--------+ + + + | CBC ONLY | Urgent | 05/01/2007 | | Results for this | | | | 2:10 AM | | procedure are in the | | | | PST | | results section. | + +--------+ + + + | PHOSPHORUS, PLASMA | Urgent | 05/01/2007 | | Results for this | | | | 2:10 AM | | procedure are in the | | | | PST | | results section. | + +--------+ + + + | MAGNESIUM, PLASMA | Urgent | 05/01/2007 | | Results for this | | | | 2:10 AM | | procedure are in the | | | | PST | | results section. | + +--------+ + + + | INR | Urgent | 04/30/2007 | | Results for this | | | | 6:30 PM | | procedure are in the | | | | PST | | results section. | + +--------+ + + + | TROPONIN I, PLASMA | Routin | 04/30/2007 | | Results for this | | | e | 6:30 PM | | procedure are in the | | | | PST | | results section. | + +--------+ + + + | BASIC METABOLIC SET | Urgent | 04/30/2007 | | Results for this | | (NA, K, CL, TCO2, | | 6:30 PM | | procedure are in the | | BUN, CR, GLU, CA) | | PST | | results section. | + +--------+ + + + | CBC ONLY | Urgent | 04/30/2007 | | Results for this | | | | 6:30 PM | | procedure are in the | | | | PST | | results section. | + +--------+ + + + | APTT (ACT. PART. | Urgent | 04/30/2007 | | Results for this | | THROMBO TIME) | | 6:30 PM | | procedure are in the | | | | PST | | results section. | + +--------+ + + + | PHOSPHORUS, PLASMA | Urgent | 04/30/2007 | | Results for this | | | | 6:30 PM | | procedure are in the | | | | PST | | results section. | + +--------+ + + + | BLOOD GASES, | Urgent | 04/30/2007 | | Results for this | | ARTERIAL - LAB | | 6:30 PM | | procedure are in the | | | | PST | | results section. | + +--------+ + + + | MAGNESIUM, PLASMA | Urgent | 04/30/2007 | | Results for this | | | | 6:30 PM | | procedure are in the | | | | PST | | results section. | + +--------+ + + + | ARTERIO, ABDOMINAL | Routin | 04/30/2007 | | Results for this | | | e | 11:09 AM | | procedure are in the | | | | PST | | results section. | + +--------+ + + + | TROPONIN I, PLASMA | Urgent | 04/30/2007 | | Results for this | | | | 4:05 AM | | procedure are in the | | | | PST | | results section. | + +--------+ + + + | BASIC METABOLIC SET | Urgent | 04/30/2007 | | Results for this | | (NA, K, CL, TCO2, | | 4:05 AM | | procedure are in the | | BUN, CR, GLU, CA) | | PST | | results section. | + +--------+ + + + | CBC ONLY | Urgent | 04/30/2007 | | Results for this | | | | 4:05 AM | | procedure are in the | | | | PST | | results section. | + +--------+ + + + | PHOSPHORUS, PLASMA | Urgent | 04/30/2007 | | Results for this | | | | 4:05 AM | | procedure are in the | | | | PST | | results section. | + +--------+ + + + | MAGNESIUM, PLASMA | Urgent | 04/30/2007 | | Results for this | | | | 4:05 AM | | procedure are in the | | | | PST | | results section. | + +--------+ + + + | CTA PELVIS WWO IV | Routin | 04/29/2007 | | Results for this | | CONTRAST | e | 9:49 PM | | procedure are in the | | | | PST | | results section. | + +--------+ + + + | CTA ABDOMEN WWO IV | Routin | 04/29/2007 | | Results for this | | CONTRAST | e | 9:49 PM | | procedure are in the | | | | PST | | results section. | + +--------+ + + + | X-RAY CHEST 1 VIEW | Urgent | 04/29/2007 | | Results for this | | | | 7:18 PM | | procedure are in the | | | | PST | | results section. | + +--------+ + + + | TROPONIN I, PLASMA | Urgent | 04/29/2007 | | Results for this | | | | 6:40 PM | | procedure are in the | | | | PST | | results section. | + +--------+ + + + | SEDIMENTATION RATE | Urgent | 04/29/2007 | | Results for this | | | | 6:40 PM | | procedure are in the | | | | PST | | results section. | + +--------+ + + + | C-REACTIVE PROTEIN | Routin | 04/29/2007 | | Results for this | | | e | 6:35 PM | | procedure are in the | | | | PST | | results section. | + +--------+ + + + | INR | Urgent | 04/29/2007 | | Results for this | | | | 6:15 PM | | procedure are in the | | | | PST | | results section. | + +--------+ + + + | TROPONIN I, PLASMA | Urgent | 04/29/2007 | | Results for this | | | | 6:15 PM | | procedure are in the | | | | PST | | results section. | + +--------+ + + + | COMPLETE METABOLIC | Urgent | 04/29/2007 | | Results for this | | SET | | 6:15 PM | | procedure are in the | | (NA,K,CL,CO2,BUN,CRE | | PST | | results section. | | AT,GLUC,CA,AST,ALT,B | | | | | | YELENA TOTAL,ALK | | | | | | PHOS,ALB,PROT TOTAL) | | | | | + +--------+ + + + | CBC ONLY | Urgent | 04/29/2007 | | Results for this | | | | 6:15 PM | | procedure are in the | | | | PST | | results section. | + +--------+ + + + | APTT (ACT. PART. | Urgent | 04/29/2007 | | Results for this | | THROMBO TIME) | | 6:15 PM | | procedure are in the | | | | PST | | results section. | + +--------+ + + + | SEDIMENTATION RATE | Urgent | 04/29/2007 | | Results for this | | | | 6:15 PM | | procedure are in the | | | | PST | | results section. | + +--------+ + + + | PHOSPHORUS, PLASMA | Urgent | 04/29/2007 | | Results for this | | | | 6:15 PM | | procedure are in the | | | | PST | | results section. | + +--------+ + + + | CALCIUM, IONIZED, | Urgent | 04/29/2007 | | Results for this | | WHOLE BLOOD | | 6:15 PM | | procedure are in the | | | | PST | | results section. | + +--------+ + + + | MAGNESIUM, PLASMA | Urgent | 04/29/2007 | | Results for this | | | | 6:15 PM | | procedure are in the | | | | PST | | results section. | + +--------+ + + + documented in this encounter Results BASIC METABOLIC SET, PLASMA (05/02/2007 5:19 AM PST) + +---------+ + + + | Component | Value | Ref Range | Performed | Pathologist | | | | | At | Signature | + +---------+ + + + | GLUCOSE, | 96 | 60 - 99 mg/dL | [facility] | | | PLASMA | | | DEPARTMENT | | | (LAB) | | | OF | | | | | | PATHOLOGY | | + +---------+ + + + | BUN, PLASMA | 1 (L) | 6 - 20 mg/dL | [facility] | | | (LAB) | | | DEPARTMENT | | | | | | OF | | | | | | PATHOLOGY | | + +---------+ + + + | CREATININE | 0.7 | 0.7 - 1.3 mg/dL | [facility] | | | PLASMA | | | DEPARTMENT | | | (LAB) | | | OF | | | | | | PATHOLOGY | | + +---------+ + + + | SODIUM, | 130 (L) | 136 - 145 | [facility] | | | PLASMA | | mmol/L | DEPARTMENT | | | (LAB) | | | OF | | | | | | PATHOLOGY | | + +---------+ + + + | POTASSIUM, | 3.4 (L) | 3.5 - 5.1 | [facility] | | | PLASMA | | mmol/L | DEPARTMENT | | | (LAB) | | | OF | | | | | | PATHOLOGY | | + +---------+ + + + | CHLORIDE, | 93 (L) | 98 - 107 mmol/L | [facility] | | | PLASMA | | | DEPARTMENT | | | (LAB) | | | OF | | | | | | PATHOLOGY | | + +---------+ + + + | TOTAL CO2, | 28 | 23 - 29 mmol/L | [facility] | | | PLASMA | | | DEPARTMENT | | | (LAB) | | | OF | | | | | | PATHOLOGY | | + +---------+ + + + | CALCIUM, | 9.2 | 8.5 - 10.5 | [facility] | | | PLASMA | | mg/dL | DEPARTMENT | | | (LAB) | | | OF | | | | | | PATHOLOGY | | + +---------+ + + + + + | Specimen | + + | | + + + + + + + | Performing | Address | City/State/Zipcode | Phone Number | | Organization | | | | + + + + + | [facility] DEPARTMENT OF | [address] | [place] [address] | | | PATHOLOGY | [address] | | | + + + + + | [facility] DEPARTMENT OF | [address] | [place] [address] | | | PATHOLOGY | [address] | | | + + + + + CBC ONLY (05/02/2007 5:19 AM PST) + + + + + + | Component | Value | Ref Range | Performed | Pathologist | | | | | At | Signature | + + + + + + | WHITE CELL | 18.0 (H) | 4.4 - 11.0 K/cu | [facility] | | | COUNT | | mm | DEPARTMENT | | | | | | OF | | | | | | PATHOLOGY | | + + + + + + | RED CELL | 4.51 | 4.50 - 5.90 | [facility] | | | COUNT | | M/cu mm | DEPARTMENT | | | | | | OF | | | | | | PATHOLOGY | | + + + + + + | HEMOGLOBIN | 15.4 | 13.5 - 17.5 | [facility] | | | | | g/dL | DEPARTMENT | | | | | | OF | | | | | | PATHOLOGY | | + + + + + + | HEMATOCRIT | 42.2 | 41.0 - 53.0 % | [facility] | | | | | | DEPARTMENT | | | | | | OF | | | | | | PATHOLOGY | | + + + + + + | MCV | 93.5 | 80.0 - 96.0 fL | [facility] | | | | | | DEPARTMENT | | | | | | OF | | | | | | PATHOLOGY | | + + + + + + | MCHC | 36.4 (H) | 33.4 - 35.5 | [facility] | | | | | g/dL | DEPARTMENT | | | | | | OF | | | | | | PATHOLOGY | | + + + + + + | RDW | 12.3 | 11.5 - 15.0 % | [facility] | | | | | | DEPARTMENT | | | | | | OF | | | | | | PATHOLOGY | | + + + + + + | PLATELET | 108 (L) | 150 - 400 K/cu | [facility] | | | COUNT | | mm | DEPARTMENT | | | | | [...] DEPARTMENT OF | [address] | [place] [address] | | | PATHOLOGY | [address] | | | + + + + + | [facility] DEPARTMENT OF | [address] | [place] [address] | | | PATHOLOGY | [address] | | | + + + + + HEPARIN PLT AB DAYRON AGG (05/01/2007 12:00 PM PST) + + + + + + | Component | Value | Ref Range | Performed | Pathologist | | | | | At | Signature | + + + + + + | HEPARIN PLT | Negative | | [facility] | | | AB DAYRON, | | | DEPARTMENT | | | AGG | | | OF | | | | | | PATHOLOGY | | + + + + + + + + | Specimen | + + | | + + + + + | Narrative | Performed At | + + + | HIT assay may be negative in early stage of HIT. If suspect HIT | [facility] | | clinically, stop all heparin, start alternative anticoagulation with | DEPARTMENT OF | | an anti-Thrombin. Repeat HIT assay in 24-48 hr. | PATHOLOGY | + + + + + + + + | Performing | Address | City/State/Zipcode | Phone Number | | Organization | | | | + + + + + | [facility] DEPARTMENT OF | [address] | [place] [address] | | | PATHOLOGY | [address] | | | + + + + + | [facility] DEPARTMENT OF | [address] | [place] [address] | | | PATHOLOGY | [address] | | | + + + + + POTASSIUM, PLASMA (05/01/2007 12:00 PM PST) + +-------+ + + + | Component | Value | Ref Range | Performed | Pathologist | | | | | At | Signature | + +-------+ + + + | POTASSIUM, | 4.3 | 3.5 - 5.1 | [facility] | | | PLASMA | | mmol/L | DEPARTMENT | | | (LAB) | | | OF | | | | | | PATHOLOGY | | + +-------+ + + + + + | Specimen | + + | | + + + + + + + | Performing | Address | City/State/Zipcode | Phone Number | | Organization | | | | + + + + + | [facility] DEPARTMENT OF | [address] | [place] [address] | | | PATHOLOGY | [address] | | | + + + + + | [facility] DEPARTMENT OF | [address] | [place] [address] | | | PATHOLOGY | [address] | | | + + + + + RENAL FUNCTION SET (05/01/2007 2:10 AM PST) + +---------+ + + + | Component | Value | Ref Range | Performed | Pathologist | | | | | At | Signature | + +---------+ + + + | GLUCOSE, | 99 | 60 - 99 mg/dL | [facility] | | | PLASMA | | | DEPARTMENT | | | (LAB) | | | OF | | | | | | PATHOLOGY | | + +---------+ + + + | BUN, PLASMA | 2 (L) | 6 - 20 mg/dL | [facility] | | | (LAB) | | | DEPARTMENT | | | | | | OF | | | | | | PATHOLOGY | | + +---------+ + + + | CREATININE | 0.5 (L) | 0.7 - 1.3 mg/dL | [facility] | | | PLASMA | | | DEPARTMENT | | | (LAB) | | | OF | | | | | | PATHOLOGY | | + +---------+ + + + | ALBUMIN, | 2.7 (L) | 3.5 - 4.7 g/dL | [facility] | | | PLASMA | | | DEPARTMENT | | | (LAB) | | | OF | | | | | | PATHOLOGY | | + +---------+ + + + | CALCIUM, | 8.3 (L) | 8.5 - 10.5 | [facility] | | | PLASMA | | mg/dL | DEPARTMENT | | | (LAB) | | | OF | | | | | | PATHOLOGY | | + +---------+ + + + | PHOSPHORUS, | 3.0 | 2.4 - 4.7 mg/dL | [facility] | | | PLASMA | | | DEPARTMENT | | | (LAB) | | | OF | | | | | | PATHOLOGY | | + +---------+ + + + | SODIUM, | 131 (L) | 136 - 145 | [facility] | | | PLASMA | | mmol/L | DEPARTMENT | | | (LAB) | | | OF | | | | | | PATHOLOGY | | + +---------+ + + + | POTASSIUM, | 3.3 (L) | 3.5 - 5.1 | [facility] | | | PLASMA | | mmol/L | DEPARTMENT | | | (LAB) | | | OF | | | | | | PATHOLOGY | | + +---------+ + + + | CHLORIDE, | 100 | 98 - 107 mmol/L | [facility] | | | PLASMA | | | DEPARTMENT | | | (LAB) | | | OF | | | | | | PATHOLOGY | | + +---------+ + + + | TOTAL CO2, | 24 | 23 - 29 mmol/L | [facility] | | | PLASMA | | | DEPARTMENT | | | (LAB) | | | OF | | | | | | PATHOLOGY | | + +---------+ + + + + + | Specimen | + + | | + + + + + + + | Performing | Address | City/State/Zipcode | Phone Number | | Organization | | | | + + + + + | [facility] | [address] | [place] [address] | | | PATHOLOGY | [address] | | | + + + + + | [facility] | [facility] [address] | [place] [address] | | | PATHOLOGY | [address] | | | + + + + + MAGNESIUM, PLASMA (05/01/2007 2:10 AM PST) + +-------+ + + + | Component | Value | Ref Range | Performed | Pathologist | | | | | At | Signature | + +-------+ + + + | MAGNESIUM,P | 2.2 | 1.8 - 2.5 mg/dL | [facility] | | | LASMA | | | DEPARTMENT | | | | | | OF | | | | | | PATHOLOGY | | + +-------+ + + + + + | Specimen | + + | | + + + + + + + | Performing | Address | City/State/Zipcode | Phone Number | | Organization | | | | + + + + + | [facility] DEPARTMENT OF | [address] | [place] [address] | | | PATHOLOGY | [address] | | | + + + + + | [facility] DEPARTMENT OF | [address] | [place] [address] | | | PATHOLOGY | [address] | | | + + + + + PHOSPHORUS, PLASMA (05/01/2007 2:10 AM PST) + +-------+ + + + | Component | Value | Ref Range | Performed | Pathologist | | | | | At | Signature | + +-------+ + + + | PHOSPHORUS, | 3.0 | 2.4 - 4.7 mg/dL | [facility] | | | PLASMA | | | DEPARTMENT | | | (LAB) | | | OF | | | | | | PATHOLOGY | | + +-------+ + + + + + | Specimen | + + | | + + + + + + + | Performing | Address | City/State/Zipcode | Phone Number | | Organization | | | | + + + + + | [facility] DEPARTMENT | [address] | [place] [address] | | | PATHOLOGY | [address] | | | + + + + + | [facility] | [address] [place] [address] | [place] [address] | | | PATHOLOGY | [address] | | | + + + + + CBC ONLY (05/01/2007 2:10 AM PST) + + + + + + | Component | Value | Ref Range | Performed | Pathologist | | | | | At | Signature | + + + + + + | WHITE CELL | 8.8 | 4.4 - 11.0 K/cu | [facility] | | | COUNT | | mm | DEPARTMENT | | | | | | OF | | | | | | PATHOLOGY | | + + + + + + | RED CELL | 3.92 (L) | 4.50 - 5.90 | [facility] | | | COUNT | | M/cu mm | DEPARTMENT | | | | | | OF | | | | | | PATHOLOGY | | + + + + + + | HEMOGLOBIN | 13.6 | 13.5 - 17.5 | [facility] | | | | | g/dL | DEPARTMENT | | | | | | OF | | | | | | PATHOLOGY | | + + + + + + | HEMATOCRIT | 36.7 (L) | 41.0 - 53.0 % | [facility] | | | | | | DEPARTMENT | | | | | | OF | | | | | | PATHOLOGY | | + + + + + + | MCV | 93.7 | 80.0 - 96.0 fL | [facility] | | | | | | DEPARTMENT | | | | | | OF | | | | | | PATHOLOGY | | + + + + + + | MCHC | 36.9 (H) | 33.4 - 35.5 | [facility] | | | | | g/dL | DEPARTMENT | | | | | | OF | | | | | | PATHOLOGY | | + + + + + + | RDW | 12.3 | 11.5 - 15.0 % | [facility] | | | | | | DEPARTMENT | | | | | | OF | | | | | | PATHOLOGY | | + + + + + + | PLATELET | 92 (L) | 150 - 400 K/cu | [facility] | | | COUNT | | mm | DEPARTMENT | | | | | | OF | | | | | | PATHOLOGY | | + + + + + + + + | Specimen | + + | | + + + + + + + | Performing | Address | City/State/Zipcode | Phone Number | | Organization | | | | + + + + + | [facility] DEPARTMENT [facility] | [address] | [place] [address] | | | PATHOLOGY | [address] | | | + + + + + | [facility] DEPARTMENT OF | [address] | [place] [address] | | | PATHOLOGY | [address] | | | + + + + + TROPONIN I, PLASMA (04/30/2007 6:30 PM PST) + +-------+ + + + | Component | Value | Ref Range | Performed | Pathologist | | | | | At | Signature | + +-------+ + + + | TROPONIN I | 0.01 | <0.50 ng/mL | [facility] | | | | | | DEPARTMENT | | | | | | OF | | | | | | PATHOLOGY | | + +-------+ + + + + + | Specimen | + + | | + + + + + + + | Performing | Address | City/State/Zipcode | Phone Number | | Organization | | | | + + + + + | [facility] DEPARTMENT [facility] | [address] | [place] [address] | | | PATHOLOGY | [address] | | | + + + + + | [facility] DEPARTMENT OF | [address] | [place] [address] | | | PATHOLOGY | [address] | | | + + + + + PHOSPHORUS, PLASMA (04/30/2007 6:30 PM PST) + +-------+ + + + | Component | Value | Ref Range | Performed | Pathologist | | | | | At | Signature | + +-------+ + + + | PHOSPHORUS, | 3.0 | 2.4 - 4.7 mg/dL | [facility] | | | PLASMA | | | DEPARTMENT | | | (LAB) | | | OF | | | | | | PATHOLOGY | | + +-------+ + + + + + | Specimen | + + | | + + + + + + + | Performing | Address | City/State/Zipcode | Phone Number | | Organization | | | | + + + + + | [facility] DEPARTMENT [facility] | [address] | [place] [address] | | | PATHOLOGY | [address] | | | + + + + + | [facility] DEPARTMENT OF | [address] | [place] [address] | | | PATHOLOGY | [address] | | | + + + + + MAGNESIUM, PLASMA (04/30/2007 6:30 PM PST) + +---------+ + + + | Component | Value | Ref Range | Performed | Pathologist | | | | | At | Signature | + +---------+ + + + | MAGNESIUM,P | 1.7 (L) | 1.8 - 2.5 mg/dL | [facility] | | | LASMA | | | DEPARTMENT | | | | | | OF | | | | | | PATHOLOGY | | + +---------+ + + + + + | Specimen | + + | | + + + + + + + | Performing | Address | City/State/Zipcode | Phone Number | | Organization | | | | + + + + + | [facility] DEPARTMENT [facility] | [address] | [place] [address] | | | PATHOLOGY | [address] | | | + + + + + | [facility] DEPARTMENT OF | [address] | [place] [address] | | | PATHOLOGY | [address] | | | + + + + + BLOOD GASES, ARTERIAL - LAB (04/30/2007 6:30 PM PST) + + + + + + | Component | Value | Ref Range | Performed | Pathologist | | | | | At | Signature | + + + + + + | PAT TEMP | 37.2 | Degree C | [facility] | | | ARTERIAL | | | DEPARTMENT | | | | | | OF | | | | | | PATHOLOGY | | + + + + + + | FIO2 | .40 | | [facility] | | | ARTERIAL | | | DEPARTMENT | | | | | | OF | | | | | | PATHOLOGY | | + + + + + + | PH ARTERIAL | 7.34 (L) | 7.37 - 7.44 | [facility] | | | | | | DEPARTMENT | | | | | | OF | | | | | | PATHOLOGY | | + + + + + + | PCO2 | 43 | 32 - 43 mmHg | [facility] | | | ARTERIAL | | | DEPARTMENT | | | | | | OF | | | | | | PATHOLOGY | | + + + + + + | PO2 | 147 (H) | 72 - 104 mmHg | [facility] | | | ARTERIAL | | | DEPARTMENT | | | | | | OF | | | | | | PATHOLOGY | | + + + + + + | BASE EXCESS | -2.7 | | [facility] | | | ARTERIAL | | | DEPARTMENT | | | | | | OF | | | | | | PATHOLOGY | | + + + + + + | HCO3 | 23 | 21 - 27 mmol/L | [facility] | | | ARTERIAL | | | DEPARTMENT | | | | | | OF | | | | | | PATHOLOGY | | + + + + + + | TOTAL CO2 | 24 | 22 - 28 mmol/L | [facility] | | | ARTERIAL | | | DEPARTMENT | | | | | | OF | | | | | | PATHOLOGY | | + + + + + + | O2 SAT, | 99.6 (H) | 92.0 - 98.0 % | [facility] | | | ARTERIAL | | | DEPARTMENT | | | | | | OF | | | | | | PATHOLOGY | | + + + + + + + + | Specimen | + + | | + + + + + | Narrative | Performed At | + + + | Arterial Blood Gas | [facility] | | | DEPARTMENT OF | | | PATHOLOGY | + + + + + + + + | Performing | Address | City/State/Zipcode | Phone Number | | Organization | | | | + + + + + | [facility] DE[facility]MENT [facility] | [address] | [place] [address] | | | PATHOLOGY | [address] | | | + + + + + | [facility] DEPARTMENT OF | [address] | [place] [address] | | | PATHOLOGY | [address] | | | + + + + + BASIC METABOLIC SET, PLASMA (04/30/2007 6:30 PM PST) + +---------+ + + + | Component | Value | Ref Range | Performed | Pathologist | | | | | At | Signature | + +---------+ + + + | GLUCOSE, | 71 | 60 - 99 mg/dL | [facility] | | | PLASMA | | | DEPARTMENT | | | (LAB) | | | OF | | | | | | PATHOLOGY | | + +---------+ + + + | BUN, PLASMA | 2 (L) | 6 - 20 mg/dL | [facility] | | | (LAB) | | | DEPARTMENT | | | | | | OF | | | | | | PATHOLOGY | | + +---------+ + + + | CREATININE | 0.6 (L) | 0.7 - 1.3 mg/dL | [facility] | | | PLASMA | | | DEPARTMENT | | | (LAB) | | | OF | | | | | | PATHOLOGY | | + +---------+ + + + | SODIUM, | 135 (L) | 136 - 145 | [facility] | | | PLASMA | | mmol/L | DEPARTMENT | | | (LAB) | | | OF | | | | | | PATHOLOGY | | + +---------+ + + + | POTASSIUM, | 3.3 (L) | 3.5 - 5.1 | [facility] | | | PLASMA | | mmol/L | DEPARTMENT | | | (LAB) | | | OF | | | | | | PATHOLOGY | | + +---------+ + + + | CHLORIDE, | 107 | 98 - 107 mmol/L | [facility] | | | PLASMA | | | DEPARTMENT | | | (LAB) | | | OF | | | | | | PATHOLOGY | | + +---------+ + + + | TOTAL CO2, | 23 | 23 - 29 mmol/L | [facility] | | | PLASMA | | | DEPARTMENT | | | (LAB) | | | OF | | | | | | PATHOLOGY | | + +---------+ + + + | CALCIUM, | 7.4 (L) | 8.5 - 10.5 | [facility] | | | PLASMA | | mg/dL | DEPARTMENT | | | (LAB) | | | OF | | | | | | PATHOLOGY | | + +---------+ + + + + + | Specimen | + + | | + + + + + + + | Performing | Address | City/State/Zipcode | Phone Number | | Organization | | | | + + + + + | [facility] DEPARTMENT OF | [id number] | [place] [address] | | | PATHOLOGY | [address] | | | + + + + + | [facility] DEPARTMENT OF | [address] | [place] [address] | | | PATHOLOGY | [address] | | | + + + + + CBC ONLY (04/30/2007 6:30 PM PST) + + + + + + | Component | Value | Ref Range | Performed | Pathologist | | | | | At | Signature | + + + + + + | WHITE CELL | 6.1 | 4.4 - 11.0 K/cu | [facility] | | | COUNT | | mm | DEPARTMENT | | | | | | OF | | | | | | PATHOLOGY | | + + + + + + | RED CELL | 3.56 (L) | 4.50 - 5.90 | [facility] | | | COUNT | | M/cu mm | DEPARTMENT | | | | | | OF | | | | | | PATHOLOGY | | + + + + + + | HEMOGLOBIN | 12.3 (L) | 13.5 - 17.5 | [facility] | | | | | g/dL | DEPARTMENT | | | | | | OF | | | | | | PATHOLOGY | | + + + + + + | HEMATOCRIT | 33.8 (L) | 41.0 - 53.0 % | [facility] | | | | | | DEPARTMENT | | | | | | OF | | | | | | PATHOLOGY | | + + + + + + | MCV | 94.8 | 80.0 - 96.0 fL | [facility] | | | | | | DEPARTMENT | | | | | | OF | | | | | | PATHOLOGY | | + + + + + + | MCHC | 36.3 (H) | 33.4 - 35.5 | [facility] | | | | | g/dL | DEPARTMENT | | | | | | OF | | | | | | PATHOLOGY | | + + + + + + | RDW | 12.3 | 11.5 - 15.0 % | [facility] | | | | | | DEPARTMENT | | | | | | OF | | | | | | PATHOLOGY | | + + + + + + | PLATELET | 95 (L) | 150 - 400 K/cu | [facility] | | | COUNT | | mm | DEPARTMENT | | | | | | OF | | | | | | PATHOLOGY | | + + + + + + + + | Specimen | + + | | + + + + + + + | Performing | Address | City/State/Zipcode | Phone Number | | Organization | | | | + + + + + | [facility] | [address] | [place] [address] | | | PATHOLOGY | [address] | | | + + + + + | [facility] | [address] | [place] [address] | | | PATHOLOGY | [address] | | | + + + + + APTT (ACT. PART. THROMBO TIME) (04/30/2007 6:30 PM PST) + + + + + + | Component | Value | Ref Range | Performed | Pathologist | | | | | At | Signature | + + + + + + | APTT | > 200.0 (*)Comment: | 26.0 - 36.0 | [facility] | | | | APTT Therapeutic | seconds | DEPARTMENT | | | | Range | | OF | | | | | | PATHOLOGY | | | | (75-120)sec | | | | | | Heparin levels | | | | | | of 0.35-0.7 U/mL | | | | + + + + + + + + | Specimen | + + | | + + + + + | Narrative | Performed At | + + + | PTT Phoned Readback. | [facility] | | | DEPARTMENT OF | | | PATHOLOGY | + + + + + + + + | Performing | Address | City/State/Zipcode | Phone Number | | Organization | | | | + + + + + | [facility] | [address] | [place] [address] | | | PATHOLOGY | [address] | | | + + + + + | [facility]MENT [facility] | [address] | [place] [address] | | | PATHOLOGY | [address] | | | + + + + + PROTHROMBIN TIME (04/30/2007 6:30 PM PST) + + + + + + | Component | Value | Ref Range | Performed | Pathologist | | | | | At | Signature | + + + + + + | INR | 1.19Comment: | 0.90 - 1.20 INR | [facility] | | | | PT INR Therapeutic | | DEPARTMENT | | | | ranges for full | | OF | | | | anticoagulation: | | PATHOLOGY | | | | INR for | | | | | | Venous Thromboembolism | | | | | | | | | | | | (2.0-3.0)INR | | | | | | INR for most | | | | | | patients with mech. | | | | | | valves (2.5-3.5)INR | | | | + + + + + + + + | Specimen | + + | | + + + + + | Narrative | Performed At | + + + | PTT Phoned Readback. | [facility] | | | DEPARTMENT OF | | | PATHOLOGY | + + + + + + + + | Performing | Address | City/State/Zipcode | Phone Number | | Organization | | | | + + + + + | [facility] | [address] | [place] [address] | | | PATHOLOGY | [address] | | | + + + + + | [facility] | [address] | [place] [address] | | | PATHOLOGY | [address] | | | + + + + + ARTERIO, ABDOMINAL (04/30/2007 11:09 AM PST) + + + + + + | Component | Value | Ref Range | Performed | Pathologist | | | | | At | Signature | + + + + + + | ARTERIO, | Procedure: Aortic | | | | | ABDOMINAL | endograftPrimary | | | | | | welder operator: Mickey, | | | | | | PederMDAssistant | | | | | | attending welder operator: | | | | | | Rudolph Brewer | | | | | | M.D.Primarysurgeon: | | | | | | Leroy Jay.RosaPrimary | | | | | | attending surgeon: | | | | | | Zhao, | | | | | | ChadPreoperative | | | | | | diagnosis: Proximal | | | | | | anastomoticpseudoaneurys | | | | | | mPostoperative | | | | | | diagnosis: | | | | | | SameOperations:Operation | | | | | | 1. 4-Belarusian pigtail | | | | | | catheter and abdominal | | | | | | aortaOperation 2. | | | | | | 22-71 reversed graft | | | | | | proximallyOperation 3. | | | | | | 14-88 iliac | | | | | | extensiondistallyOperati | | | | | | on 4. Melody 4010 | | | | | | stent within | | | | | | endograftOperation5. | | | | | | 5-Belarusian pigtail | | | | | | catheter abdominal | | | | | | aortaOperation | | | | | | 6.Operation | | | | | | 7.Indications:47-year-ol | | | | | | d male status | | | | | | postaortobifemoral graft | | | | | | with contained rupture | | | | | | of proximal | | | | | | anastomosis.There is no | | | | | | evidence of infection. | | | | | | The left limb of the | | | | | | graft ischronically | | | | | | occluded. There is a | | | | | | change in the proximal | | | | | | portion ofthe right limb | | | | | | of the surgical graft. | | | | | | There is 15 mm long | | | | | | infrarenalneck measuring | | | | | | 18 mm in | | | | | | diameter.Procedure:The | | | | | | attendingphysician was | | | | | | present for the entire | | | | | | procedure. Written | | | | | | informedconsent was | | | | | | obtained in a PARQ | | | | | | conference with the | | | | | | patient. Theprocedure | | | | | | was performed with | | | | | | general anesthesia.The | | | | | | patient wasprepped and | | | | | | draped in the usual | | | | | | manner. The old surgical | | | | | | graft in theright groin | | | | | | was surgically exposed. | | | | | | This will be | | | | | | described in thesurgical | | | | | | note. The endograft | | | | | | portions of the | | | | | | procedure wereperformed | | | | | | with equal contribution | | | | | | by the radiologic and | | | | | | surgicalattending. | | | | | | Utilizing Seldinger | | | | | | technique a 4-Belarusian | | | | | | pigtail catheterwas | | | | | | introduced through the | | | | | | exposed graft and | | | | | | positioned in | | | | | | theabdominal aorta. An | | | | | | AP aortogram was | | | | | | obtained. Utilizing | | | | | | aSeldinger technique a | | | | | | 16-Belarusian sheath was | | | | | | introduced through | | | | | | aseparate access site in | | | | | | the same exposure and | | | | | | advanced into | | | | | | theabdominal aorta. | | | | | | The patient was given | | | | | | 5000 units of heparin. | | | | | | A22-71 Zenith TFLE AAA | | | | | | iliac graft was loaded | | | | | | in reversed fashion | | | | | | intothe sheath and | | | | | | advanced into the aorta. | | | | | | Magnification AP | | | | | | aortogramswere utilized | | | | | | to localize the renal | | | | | | arteries. The pigtail | | | | | | catheterwas withdrawn | | | | | | and the graft deployed. | | | | | | A 14-88 iliac graft | | | | | | wasintroduced through | | | | | | the 16-Belarusian sheath and | | | | | | two stents overlap | | | | | | wasachieved. The graft | | | | | | was deployed with | | | | | | extension into the right | | | | | | limbof the surgical | | | | | | graft. The delivery | | | | | | system was removed and a | | | | | | 20millimeter diameter | | | | | | by 4 cm angioplasty | | | | | | balloon was introduced | | | | | | andinflated throughout | | | | | | the entire length of the | | | | | | graft. | | | | | | Visualinspection of | | | | | | the graft revealed | | | | | | stenosis at the site of | | | | | | previouslyidentified | | | | | | change in the right limb | | | | | | of the graft. This | | | | | | was treatedwith a | | | | | | balloon expandable stent | | | | | | deployed on a 12 mm | | | | | | balloon. A5-Belarusian | | | | | | pigtail catheter was | | | | | | advanced through the | | | | | | sheath into theabdominal | | | | | | aorta and an AP | | | | | | aortogram obtained. A | | | | | | magnification viewof the | | | | | | renal arteries was | | | | | | obtained. All | | | | | | catheters and | | | | | | guidewireswere removed. | | | | | | The access site and | | | | | | surgical exposure was | | | | | | repaired bythe surgeons | | | | | | and will be described in | | | | | | their note. Total | | | | | | fluoroscopytime was 12 | | | | | | minutes 40 seconds. | | | | | | Total contrast was | | | | | | 150cc.Findings:There are | | | | | | single widely patent | | | | | | renal | | | | | | arteriesbilaterally. | | | | | | The left renal artery | | | | | | is lowest. There is no | | | | | | evidenceof contrast | | | | | | extravasation. The | | | | | | left limb of the | | | | | | surgical graft | | | | | | isoccluded. There is a | | | | | | widely patent right | | | | | | limb with a posterior | | | | | | kinkat the origin. The | | | | | | inferior mesenteric | | | | | | artery is reconstituted | | | | | | viathe arc of Riolan and | | | | | | supplies the pelvic | | | | | | vasculature. | | | | | | Followingplacement of | | | | | | the endograft there is | | | | | | no evidence of | | | | | | perigraftperfusion. | | | | | | Both renal arteries | | | | | | remain widely patent | | | | | | with the top ofthe graft | | | | | | one to 2 mm above the | | | | | | inferior aspect of the | | | | | | left renalartery origin. | | | | | | There is no | | | | | | impediment to flow to | | | | | | the left | | | | | | renalartery.Impression:1 | | | | | | . Proximal anastomotic | | | | | | pseudoaneurysm | | | | | | ofaortobifemoral graft | | | | | | with occluded left limb | | | | | | of graft and | | | | | | posteriorkink in right | | | | | | limb.2. Single patent | | | | | | renal | | | | | | arteriesbilaterally.3. | | | | | | Stent graft exclusion | | | | | | of anastomotic | | | | | | pseudoaneurysmwith | | | | | | extension into right | | | | | | limb of graft utilizing | | | | | | tapered | | | | | | endograftcomponents as | | | | | | described above.STATUS | | | | | | MELBA / Dr. ROCKY BERNAL | | | | | | A. | | | | + + + + + + + + | Specimen | + + | | + + + +---------+ + + | Performing | Address | City/State/Zipcode | Phone Number | | Organization | | | | + +---------+ + + | [facility]MENT [facility] | | | | | RADIOLOGY | | | | + +---------+ + + MAGNESIUM, PLASMA (04/30/2007 4:05 AM PST) + +-------+ + + + | Component | Value | Ref Range | Performed | Pathologist | | | | | At | Signature | + +-------+ + + + | MAGNESIUM,P | 1.9 | 1.8 - 2.5 mg/dL | [facility] | | | LASMA | | | DEPARTMENT | | | | | | OF | | | | | | PATHOLOGY | | + +-------+ + + + + + | Specimen | + + | | + + + + + + + | Performing | Address | City/State/Zipcode | Phone Number | | Organization | | | | + + + + + | [facility] DE[facility]MENT [facility] | [address] | [place] [address] | | | PATHOLOGY | [address] | | | + + + + + | [facility] | [address] | [place] [address] | | | PATHOLOGY | [address] | | | + + + + + PHOSPHORUS, PLASMA (04/30/2007 4:05 AM PST) + +-------+ + + + | Component | Value | Ref Range | Performed | Pathologist | | | | | At | Signature | + +-------+ + + + | PHOSPHORUS, | 2.9 | 2.4 - 4.7 mg/dL | [facility] | | | PLASMA | | | DEPARTMENT | | | (LAB) | | | OF | | | | | | PATHOLOGY | | + +-------+ + + + + + | Specimen | + + | | + + + + + + + | Performing | Address | City/State/Zipcode | Phone Number | | Organization | | | | + + + + + | [facility] | [address] | [place] [address] | | | PATHOLOGY | [address] | | | + + + + + | [facility] | [address] | [place] [address] | | | PATHOLOGY | [address] | | | + + + + + BASIC METABOLIC SET, PLASMA (04/30/2007 4:05 AM PST) + +---------+ + + + | Component | Value | Ref Range | Performed | Pathologist | | | | | At | Signature | + +---------+ + + + | GLUCOSE, | 78 | 60 - 99 mg/dL | [facility] | | | PLASMA | | | DEPARTMENT | | | (LAB) | | | OF | | | | | | PATHOLOGY | | + +---------+ + + + | BUN, PLASMA | 3 (L) | 6 - 20 mg/dL | [facility] | | | (LAB) | | | DEPARTMENT | | | | | | OF | | | | | | PATHOLOGY | | + +---------+ + + + | CREATININE | 0.6 (L) | 0.7 - 1.3 mg/dL | [facility] | | | PLASMA | | | DEPARTMENT | | | (LAB) | | | OF | | | | | | PATHOLOGY | | + +---------+ + + + | SODIUM, | 132 (L) | 136 - 145 | [facility] | | | PLASMA | | mmol/L | DEPARTMENT | | | (LAB) | | | OF | | | | | | PATHOLOGY | | + +---------+ + + + | POTASSIUM, | 3.6 | 3.5 - 5.1 | [facility] | | | PLASMA | | mmol/L | DEPARTMENT | | | (LAB) | | | OF | | | | | | PATHOLOGY | | + +---------+ + + + | CHLORIDE, | 101 | 98 - 107 mmol/L | [facility] | | | PLASMA | | | DEPARTMENT | | | (LAB) | | | OF | | | | | | PATHOLOGY | | + +---------+ + + + | TOTAL CO2, | 25 | 23 - 29 mmol/L | [facility] | | | PLASMA | | | DEPARTMENT | | | (LAB) | | | OF | | | | | | PATHOLOGY | | + +---------+ + + + | CALCIUM, | 8.2 (L) | 8.5 - 10.5 | [facility] | | | PLASMA | | mg/dL | DEPARTMENT | | | (LAB) | | | OF | | | | | | PATHOLOGY | | + +---------+ + + + + + | Specimen | + + | | + + + + + + + | Performing | Address | City/State/Zipcode | Phone Number | | Organization | | | | + + + + + | [facility] | [facility] | [place] [address] | | | PATHOLOGY | [address] | | | + + + + + | [facility] | [facility] | [place] [address] | | | PATHOLOGY | [address] | | | + + + + + TROPONIN I, PLASMA (04/30/2007 4:05 AM PST) + +-------+ + + + | Component | Value | Ref Range | Performed | Pathologist | | | | | At | Signature | + +-------+ + + + | TROPONIN I | 0.02 | <0.50 ng/mL | [facility] | | | | | | DEPARTMENT | | | | | | OF | | | | | | PATHOLOGY | | + +-------+ + + + + + | Specimen | + + | | + + + + + + + | Performing | Address | City/State/Zipcode | Phone Number | | Organization | | | | + + + + + | [facility] | [address] | [place] [address] | | | PATHOLOGY | [address] | | | + + + + + | [facility] | [address] | [place] [address] | | | PATHOLOGY | [address] | | | + + + + + CBC ONLY (04/30/2007 4:05 AM PST) + + + + + + | Component | Value | Ref Range | Performed | Pathologist | | | | | At | Signature | + + + + + + | WHITE CELL | 7.5 | 4.4 - 11.0 K/cu | [facility] | | | COUNT | | mm | DEPARTMENT | | | | | | OF | | | | | | PATHOLOGY | | + + + + + + | RED CELL | 4.07 (L) | 4.50 - 5.90 | [facility] | | | COUNT | | M/cu mm | DEPARTMENT | | | | | | OF | | | | | | PATHOLOGY | | + + + + + + | HEMOGLOBIN | 13.9 | 13.5 - 17.5 | [facility] | | | | | g/dL | DEPARTMENT | | | | | | OF | | | | | | PATHOLOGY | | + + + + + + | HEMATOCRIT | 38.3 (L) | 41.0 - 53.0 % | [facility] | | | | | | DEPARTMENT | | | | | | OF | | | | | | PATHOLOGY | | + + + + + + | MCV | 94.0 | 80.0 - 96.0 fL | [facility] | | | | | | DEPARTMENT | | | | | | OF | | | | | | PATHOLOGY | | + + + + + + | MCHC | 36.4 (H) | 33.4 - 35.5 | [facility] | | | | | g/dL | DEPARTMENT | | | | | | OF | | | | | | PATHOLOGY | | + + + + + + | RDW | 12.5 | 11.5 - 15.0 % | [facility] | | | | | | DEPARTMENT | | | | | | OF | | | | | | PATHOLOGY | | + + + + + + | PLATELET | 100 (L) | 150 - 400 K/cu | [facility] | | | COUNT | | mm | DEPARTMENT | | | | | | OF | | | | | | PATHOLOGY | | + + + + + + + + | Specimen | + + | | + + + + + + + | Performing | Address | City/State/Zipcode | Phone Number | | Organization | | | | + + + + + | [facility] | [address] | [place] [address] | | | PATHOLOGY | [address] | | | + + + + + | [facility] | [address] | [place] [address] | | | PATHOLOGY | [address] | | | + + + + + CT CTA PELVIS WWO CONTRAST (04/29/2007 9:49 PM PST) + + + + + + | Component | Value | Ref Range | Performed | Pathologist | | | | | At | Signature | + + + + + + | CT CTA | CT SCAN: ABDOMEN, PELVIS | | | | | PELVIS WWO | AND PROXIMAL LOWER | | | | | CONTRAST | EXTREMITIES, | | | | | | PRECONTRASTAND | | | | | | POSTCONTRAST: (COMPUTED | | | | | | TOMOGRAPHY ANGIOGRAPHY | | | | | | WITH PRE-STENTGRAFT | | | | | | PROTOCOL) ( | | | | | | [facility])TECHNIQUE: | | | | | | Following oral water, | | | | | | helical scanning was | | | | | | performed fromthe | | | | | | diaphragm, through the | | | | | | abdomen, pelvis and | | | | | | proximal | | | | | | lowerextremities to the | | | | | | mid thigh using 3 mm | | | | | | scans at 1.5 | | | | | | intervals..Subsequently, | | | | | | following the infusion | | | | | | of Visipaque 320 (100 | | | | | | cc)helical scanning | | | | | | using 2 mm imaging at 1 | | | | | | mm spacing was | | | | | | performedfrom the | | | | | | diaphragm to the abdomen | | | | | | pelvis and proximal | | | | | | thighs. Inaddition, | | | | | | some scanning was | | | | | | performed during the | | | | | | venous phasesthrough the | | | | | | same regions. | | | | | | Sagittal and coronal | | | | | | reconstructions | | | | | | wereperformed.COMPARISON | | | | | | : NoneFINDINGS:In the | | | | | | visualized thorax, mild | | | | | | centrilobular emphysema | | | | | | is evident.Minimal | | | | | | posterior basilar | | | | | | atelectasis is noted. | | | | | | No focal nodules | | | | | | areidentified. Minimal | | | | | | bronchiectasis is | | | | | | suggested. The | | | | | | mediastinumand chest | | | | | | wall are unremarkable.In | | | | | | the abdomen, severe | | | | | | fatty infiltration of | | | | | | the liver is present. | | | | | | Nofocal abnormalities | | | | | | are identified. The | | | | | | spleen is unremarkable. | | | | | | Asmall hiatal hernia | | | | | | is present. A stomach | | | | | | and duodenum are | | | | | | otherwiseunremarkable. | | | | | | The pancreas, biliary | | | | | | and and portal systems | | | | | | areintact. The adrenal | | | | | | glands are | | | | | | unremarkable. Focal | | | | | | scarring isevident | | | | | | involving a right | | | | | | kidney. There is no | | | | | | evidence ofadenopathy. | | | | | | The mesentery and | | | | | | bowel are | | | | | | unremarkable.In the | | | | | | pelvis, the urinary | | | | | | bladder is moderately | | | | | | distended butotherwise | | | | | | unremarkable. The | | | | | | ureters are opacified on | | | | | | the venousphase and | | | | | | normal in appearance. | | | | | | The pelvic organs are | | | | | | otherwiseunremarkable.Th | | | | | | e distal thoracic aorta | | | | | | is normal in appearance. | | | | | | Calcification | | | | | | isevident at the origin | | | | | | of the celiac axis with | | | | | | minimal stenosispresent. | | | | | | Standard hepatic | | | | | | arterial anatomy is | | | | | | evident. The | | | | | | superiormesenteric | | | | | | artery is intact without | | | | | | evidence of stenosis. | | | | | | Theinferior mesenteric | | | | | | artery is occluded at | | | | | | its origin.An aorto | | | | | | bifemoral bypass graft | | | | | | is evident. At the | | | | | | level of theproximal | | | | | | anastomosis, and | | | | | | anastomotic aneurysm is | | | | | | present with asecond | | | | | | component measuring 3.6 | | | | | | cm in diameter which is | | | | | | immediatelyadjacent to | | | | | | the aneurysmally dilated | | | | | | abdominal aorta, also | | | | | | 3.6 cm indiameter. | | | | | | Below the level of the | | | | | | anastomosis, the | | | | | | abdominal aortaand iliac | | | | | | arteries are occluded. | | | | | | Thrombus is evident | | | | | | within theaortic | | | | | | component of the graft. | | | | | | The left femoral limb | | | | | | is occludedthroughout | | | | | | its entirety. The | | | | | | right limb is intact.On | | | | | | the right, right limb is | | | | | | slightly dilated and | | | | | | terminates in aright | | | | | | common iliac artery | | | | | | which is aneurysmally | | | | | | dilated measuring 18mm | | | | | | in diameter. The | | | | | | superficial femoral and | | | | | | profunda femorisarteries | | | | | | are intact. The study | | | | | | terminates at the level | | | | | | of theabductor canal.On | | | | | | the left, both the | | | | | | [place] common and | | | | | | external iliac arteries | | | | | | andthe left limb of the | | | | | | aortobifemoral bypass | | | | | | graft are occluded. | | | | | | Thecommon femoral | | | | | | artery is also included. | | | | | | There is | | | | | | reconstitution ofthe | | | | | | superficial femoral and | | | | | | profunda femoris just | | | | | | below theirexpected | | | | | | origins. However, the | | | | | | superficial femoral | | | | | | artery isextremely small | | | | | | in caliber throughout | | | | | | its course secondary to | | | | | | severediffuse | | | | | | atherosclerotic disease. | | | | | | Focal occlusions | | | | | | cannot be ruledout with | | | | | | certainty.IMPRESSION:1. | | | | | | Aortobifemoral bypass | | | | | | graft with 3.6 cm | | | | | | proximal | | | | | | anastomoticaneurysm,, | | | | | | minimal distal | | | | | | anastomotic aneurysm on | | | | | | the right andocclusion | | | | | | of the left limb.2. | | | | | | Severe atherosclerotic | | | | | | disease with multiple | | | | | | stenosis involvingthe | | | | | | left superficial femoral | | | | | | artery with occlusion | | | | | | of the left | | | | | | commonfemoral artery.3. | | | | | | Severe fatty | | | | | | infiltration of the | | | | | | liver4. Small hiatal | | | | | | hernia5. Mild | | | | | | centrilobular pulmonary | | | | | | emphysemaI have | | | | | | personally viewed this | | | | | | procedure/exam and | | | | | | reviewed this | | | | | | report.STATUS FINAL / | | | | | | Dr. LUIS WINKLER | | | | + + + + + + + + | Specimen | + + | | + + + +---------+ + + | Performing | Address | City/State/Zipcode | Phone Number | | Organization | | | | + +---------+ + + | [facility]MENT [facility] | | | | | RADIOLOGY | | | | + +---------+ + + CT CTA ABDOMEN WWO CONTRAST (04/29/2007 9:49 PM PST) + + + + + + | Component | Value | Ref Range | Performed | Pathologist | | | | | At | Signature | + + + + + + | CT CTA | CT SCAN: ABDOMEN, PELVIS | | | | | ABDOMEN WWO | AND PROXIMAL LOWER | | | | | CONTRAST | EXTREMITIES, | | | | | | PRECONTRASTAND | | | | | | POSTCONTRAST: (COMPUTED | | | | | | TOMOGRAPHY ANGIOGRAPHY | | | | | | WITH PRE-STENTGRAFT | | | | | | PROTOCOL) ( | | | | | | [facility] | | | | [facility])TECHNIQUE: | | | | | | Following oral water, | | | | | | helical scanning was | | | | | | performed fromthe | | | | | | diaphragm, through the | | | | | | abdomen, pelvis and | | | | | | proximal | | | | | | lowerextremities to the | | | | | | mid thigh using 3 mm | | | | | | scans at 1.5 | | | | | | intervals..Subsequently, | | | | | | following the infusion | | | | | | of Visipaque 320 (100 | | | | | | cc)helical scanning | | | | | | using 2 mm imaging at 1 | | | | | | mm spacing was | | | | | | performedfrom the | | | | | | diaphragm to the abdomen | | | | | | pelvis and proximal | | | | | | thighs. Inaddition, | | | | | | some scanning was | | | | | | performed during the | | | | | | venous phasesthrough the | | | | | | same regions. | | | | | | Sagittal and coronal | | | | | | reconstructions | | | | | | wereperformed.COMPARISON | | | | | | : NoneFINDINGS:In the | | | | | | visualized thorax, mild | | | | | | centrilobular emphysema | | | | | | is evident.Minimal | | | | | | posterior basilar | | | | | | atelectasis is noted. | | | | | | No focal nodules | | | | | | areidentified. Minimal | | | | | | bronchiectasis is | | | | | | suggested. The | | | | | | mediastinumand chest | | | | | | wall are unremarkable.In | | | | | | the abdomen, severe | | | | | | fatty infiltration of | | | | | | the liver is present. | | | | | | Nofocal abnormalities | | | | | | are identified. The | | | | | | spleen is unremarkable. | | | | | | Asmall hiatal hernia | | | | | | is present. A stomach | | | | | | and duodenum are | | | | | | otherwiseunremarkable. | | | | | | The pancreas, biliary | | | | | | and and portal systems | | | | | | areintact. The adrenal | | | | | | glands are | | | | | | unremarkable. Focal | | | | | | scarring isevident | | | | | | involving a right | | | | | | kidney. There is no | | | | | | evidence ofadenopathy. | | | | | | The mesentery and | | | | | | bowel are | | | | | | unremarkable.In the | | | | | | pelvis, the urinary | | | | | | bladder is moderately | | | | | | distended butotherwise | | | | | | unremarkable. The | | | | | | ureters are opacified on | | | | | | the venousphase and | | | | | | normal in appearance. | | | | | | The pelvic organs are | | | | | | otherwiseunremarkable.Th | | | | | | e distal thoracic aorta | | | | | | is normal in appearance. | | | | | | Calcification | | | | | | isevident at the origin | | | | | | of the celiac axis with | | | | | | minimal stenosispresent. | | | | | | Standard hepatic | | | | | | arterial anatomy is | | | | | | evident. The | | | | | | superiormesenteric | | | | | | artery is intact without | | | | | | evidence of stenosis. | | | | | | Theinferior mesenteric | | | | | | artery is occluded at | | | | | | its origin.An aorto | | | | | | bifemoral bypass graft | | | | | | is evident. At the | | | | | | level of theproximal | | | | | | anastomosis, and | | | | | | anastomotic aneurysm is | | | | | | present with asecond | | | | | | component measuring 3.6 | | | | | | cm in diameter which is | | | | | | immediatelyadjacent to | | | | | | the aneurysmally dilated | | | | | | abdominal aorta, also | | | | | | 3.6 cm indiameter. | | | | | | Below the level of the | | | | | | anastomosis, the | | | | | | abdominal aortaand iliac | | | | | | arteries are occluded. | | | | | | Thrombus is evident | | | | | | within theaortic | | | | | | component of the graft. | | | | | | The left femoral limb | | | | | | is occludedthroughout | | | | | | its entirety. The | | | | | | right limb is intact.On | | | | | | the right, right limb is | | | | | | slightly dilated and | | | | | | terminates in aright | | | | | | common iliac artery | | | | | | which is aneurysmally | | | | | | dilated measuring 18mm | | | | | | in diameter. The | | | | | | superficial femoral and | | | | | | profunda femorisarteries | | | | | | are intact. The study | | | | | | terminates at the level | | | | | | of theabductor canal.On | | | | | | the left, both the | | | | | | [place] common and | | | | | | external iliac arteries | | | | | | andthe left limb of the | | | | | | aortobifemoral bypass | | | | | | graft are occluded. | | | | | | Thecommon femoral | | | | | | artery is also included. | | | | | | There is | | | | | | reconstitution ofthe | | | | | | superficial femoral and | | | | | | profunda femoris just | | | | | | below theirexpected | | | | | | origins. However, the | | | | | | superficial femoral | | | | | | artery isextremely small | | | | | | in caliber throughout | | | | | | its course secondary to | | | | | | severediffuse | | | | | | atherosclerotic disease. | | | | | | Focal occlusions | | | | | | cannot be ruledout with | | | | | | certainty.IMPRESSION:1. | | | | | | Aortobifemoral bypass | | | | | | graft with 3.6 cm | | | | | | proximal | | | | | | anastomoticaneurysm,, | | | | | | minimal distal | | | | | | anastomotic aneurysm on | | | | | | the right andocclusion | | | | | | of the left limb.2. | | | | | | Severe atherosclerotic | | | | | | disease with multiple | | | | | | stenosis involvingthe | | | | | | left superficial femoral | | | | | | artery with occlusion | | | | | | of the left | | | | | | commonfemoral artery.3. | | | | | | Severe fatty | | | | | | infiltration of the | | | | | | liver4. Small hiatal | | | | | | hernia5. Mild | | | | | | centrilobular pulmonary | | | | | | emphysemaI have | | | | | | personally viewed this | | | | | | procedure/exam and | | | | | | reviewed this | | | | | | report.STATUS FINAL / | | | | | | Dr. LUIS WINKLER | | | | + + + + + + + + | Specimen | + + | | + + + +---------+ + + | Performing | Address | City/State/Zipcode | Phone Number | | Organization | | | | + +---------+ + + | [facility] DEPARTMENT OF | | | | | RADIOLOGY | | | | + +---------+ + + X-RAY CHEST 1 VIEW (04/29/2007 7:18 PM PST) + + + + + + | Component | Value | Ref Range | Performed | Pathologist | | | | | At | Signature | + + + + + + | CHEST, 1 | EXAM: AP Chest | | | | | VIEW | radiograph | | | | | | 04/29/07COMPARISON: | | | | | | NoneFINDINGS:The right | | | | | | costophrenic angle is | | | | | | excluded from the | | | | | | radiograph. Thelungs | | | | | | are clear. The cardiac | | | | | | silhouette, caitlin and | | | | | | mediastinalcontours are | | | | | | normal. No pleural | | | | | | abnormality is seen. The | | | | | | osseousstructures are | | | | | | unremarkable.IMPRESSION: | | | | | | No acute | | | | | | cardiopulmonaryabnormali | | | | | | ty.I have personally | | | | | | viewed this | | | | | | procedure/exam | | | | | | andreviewed this | | | | | | report.STATUS FINAL / | | | | | | Dr. ELIZABETH SEVERINO | | | | + + + + + + + + | Specimen | + + | | + + + +---------+ + + | Performing | Address | City/State/Zipcode | Phone Number | | Organization | | | | + +---------+ + + | [facility] DEPARTMENT OF | | | | | RADIOLOGY | | | | + +---------+ + + SEDIMENTATION RATE (04/29/2007 6:40 PM PST) + +-------+ + + + | Component | Value | Ref Range | Performed | Pathologist | | | | | At | Signature | + +-------+ + + + | SEDIMENTATI | 7 | <16 mm/hr | [facility] | | | ON RATE | | | DEPARTMENT | | | | | | OF | | | | | | PATHOLOGY | | + +-------+ + + + + + | Specimen | + + | | + + + + + + + | Performing | Address | City/State/Zipcode | Phone Number | | Organization | | | | + + + + + | [facility] DEPARTMENT OF | [address] | [place] [address] | | | PATHOLOGY | [address] | | | + + + + + | [facility] DEPARTMENT | [address] | [place] [address] | | | PATHOLOGY | [address] | | | + + + + + TROPONIN I, PLASMA (04/29/2007 6:40 PM PST) + +-------+ + + + | Component | Value | Ref Range | Performed | Pathologist | | | | | At | Signature | + +-------+ + + + | TROPONIN I | 0.02 | <0.50 ng/mL | [facility] | | | | | | DEPARTMENT | | | | | | OF | | | | | | PATHOLOGY | | + +-------+ + + + + + | Specimen | + + | | + + + + + + + | Performing | Address | City/State/Zipcode | Phone Number | | Organization | | | | + + + + + | [facility] | [address] | [place] [address] | | | PATHOLOGY | [address] | | | + + + + + | [facility] | [address] | [place] [address] | | | PATHOLOGY | [address] | | | + + + + + C-REACTIVE PROTEIN, SERUM (04/29/2007 6:35 PM PST) + + + + + + | Component | Value | Ref Range | Performed | Pathologist | | | | | At | Signature | + + + + + + | C-REACTIVE | 0.2Comment: Test | <0.9 mg/dl | | | | PROTEIN | performed by Sumeet | | | | | | Arnold Dalton | | | | | | Eleanor. | | | | + + + + + + + + | Specimen | + + | | + + + + + + + | Performing | Address | City/State/Zipcode | Phone Number | | Organization | | | | + + + + + | [facility] | [address] | [place] [address] | | | LABORATORY | | | | + + + + + MAGNESIUM, PLASMA (04/29/2007 6:15 PM PST) + +-------+ + + + | Component | Value | Ref Range | Performed | Pathologist | | | | | At | Signature | + +-------+ + + + | MAGNESIUM,P | 2.0 | 1.8 - 2.5 mg/dL | [facility] | | | LASMA | | | DEPARTMENT | | | | | | OF | | | | | | PATHOLOGY | | + +-------+ + + + + + | Specimen | + + | | + + + + + + + | Performing | Address | City/State/Zipcode | Phone Number | | Organization | | | | + + + + + | [facility] | [address] | [place] [address] | | | PATHOLOGY | [address] | | | + + + + + | [facility] | [address] | [place] [address] | | | PATHOLOGY | [address] | | | + + + + + COMP METABOLIC SET, PLASMA (04/29/2007 6:15 PM PST) + +---------+ + + + | Component | Value | Ref Range | Performed | Pathologist | | | | | At | Signature | + +---------+ + + + | GLUCOSE, | 53 (L) | 60 - 99 mg/dL | [facility] | | | PLASMA | | | DEPARTMENT | | | (LAB) | | | OF | | | | | | PATHOLOGY | | + +---------+ + + + | BUN, PLASMA | 3 (L) | 6 - 20 mg/dL | [facility] | | | (LAB) | | | DEPARTMENT | | | | | | OF | | | | | | PATHOLOGY | | + +---------+ + + + | CREATININE | 0.7 | 0.7 - 1.3 mg/dL | [facility] | | | PLASMA | | | DEPARTMENT | | | (LAB) | | | OF | | | | | | PATHOLOGY | | + +---------+ + + + | TOTAL | 6.3 | 6.1 - 7.9 g/dL | [facility] | | | PROTEIN, | | | DEPARTMENT | | | PLASMA | | | OF | | | (LAB) | | | PATHOLOGY | | + +---------+ + + + | ALBUMIN, | 3.3 (L) | 3.5 - 4.7 g/dL | [facility] | | | PLASMA | | | DEPARTMENT | | | (LAB) | | | OF | | | | | | PATHOLOGY | | + +---------+ + + + | CALCIUM, | 8.4 (L) | 8.5 - 10.5 | [facility] | | | PLASMA | | mg/dL | DEPARTMENT | | | (LAB) | | | OF | | | | | | PATHOLOGY | | + +---------+ + + + | BILIRUBIN | 2.2 (H) | 0.3 - 1.2 mg/dL | [facility] | | | TOTAL | | | DEPARTMENT | | | | | | OF | | | | | | PATHOLOGY | | + +---------+ + + + | ALK PHOS | 101 | 53 - 128 U/L | [facility] | | | | | | DEPARTMENT | | | | | | OF | | | | | | PATHOLOGY | | + +---------+ + + + | AST(SGOT) | 92 (H) | 15 - 41 U/L | [facility] | | | | | | DEPARTMENT | | | | | | OF | | | | | | PATHOLOGY | | + +---------+ + + + | SODIUM, | 133 (L) | 136 - 145 | [facility] | | | PLASMA | | mmol/L | DEPARTMENT | | | (LAB) | | | OF | | | | | | PATHOLOGY | | + +---------+ + + + | POTASSIUM, | 3.7 | 3.5 - 5.1 | [facility] | | | PLASMA | | mmol/L | DEPARTMENT | | | (LAB) | | | OF | | | | | | PATHOLOGY | | + +---------+ + + + | CHLORIDE, | 103 | 98 - 107 mmol/L | [facility] | | | PLASMA | | | DEPARTMENT | | | (LAB) | | | OF | | | | | | PATHOLOGY | | + +---------+ + + + | TOTAL CO2, | 17 (L) | 23 - 29 mmol/L | [facility] | | | PLASMA | | | DEPARTMENT | | | (LAB) | | | OF | | | | | | PATHOLOGY | | + +---------+ + + + | ALT (SGPT) | 75 (H) | 13 - 48 U/L | [facility] | | | | | | DEPARTMENT | | | | | | OF | | | | | | PATHOLOGY | | + +---------+ + + + + + | Specimen | + + | | + + + + + + + | Performing | Address | City/State/Zipcode | Phone Number | | Organization | | | | + + + + + | [facility] DEPARTMENT [facility] | [address] | [place] [address] | | | PATHOLOGY | [address] | | | + + + + + | [facility] DEPARTMENT OF | [address] | [place] [address] | | | PATHOLOGY | [address] | | | + + + + + SEDIMENTATION RATE (04/29/2007 6:15 PM PST) + + + + + + | Component | Value | Ref Range | Performed | Pathologist | | | | | At | Signature | + + + + + + | SEDIMENTATI | Quantity not Sufficient | <16 mm/hr | [facility] | | | ON RATE | for test. | | DEPARTMENT | | | | | | OF | | | | | | PATHOLOGY | | + + + + + + + + | Specimen | + + | | + + + + + + + | Performing | Address | City/State/Zipcode | Phone Number | | Organization | | | | + + + + + | [facility] | [address] | [place] [address] | | | PATHOLOGY | [address] | | | + + + + + | [facility] | [address] | [place] [address] | | | PATHOLOGY | [address] | | | + + + + + CBC ONLY (04/29/2007 6:15 PM PST) + + + + + + | Component | Value | Ref Range | Performed | Pathologist | | | | | At | Signature | + + + + + + | WHITE CELL | 8.7 | 4.4 - 11.0 K/cu | [facility] | | | COUNT | | mm | DEPARTMENT | | | | | | OF | | | | | | PATHOLOGY | | + + + + + + | RED CELL | 4.39 (L) | 4.50 - 5.90 | [facility] | | | COUNT | | M/cu mm | DEPARTMENT | | | | | | OF | | | | | | PATHOLOGY | | + + + + + + | HEMOGLOBIN | 15.1 | 13.5 - 17.5 | [facility] | | | | | g/dL | DEPARTMENT | | | | | | OF | | | | | | PATHOLOGY | | + + + + + + | HEMATOCRIT | 42.1 | 41.0 - 53.0 % | [facility] | | | | | | DEPARTMENT | | | | | | OF | | | | | | PATHOLOGY | | + + + + + + | MCV | 95.8 | 80.0 - 96.0 fL | [facility] | | | | | | DEPARTMENT | | | | | | OF | | | | | | PATHOLOGY | | + + + + + + | MCHC | 36.0 (H) | 33.4 - 35.5 | [facility] | | | | | g/dL | DEPARTMENT | | | | | | OF | | | | | | PATHOLOGY | | + + + + + + | RDW | 12.7 | 11.5 - 15.0 % | [facility] | | | | | | DEPARTMENT | | | | | | OF | | | | | | PATHOLOGY | | + + + + + + | PLATELET | 122 (L) | 150 - 400 K/cu | [facility] | | | COUNT | | mm | DEPARTMENT | | | | | | OF | | | | | | PATHOLOGY | | + + + + + + + + | Specimen | + + | | + + + + + + + | Performing | Address | City/State/Zipcode | Phone Number | | Organization | | | | + + + + + | [facility] | [facility] | [place] [address] | | | PATHOLOGY | [address] | | | + + + + + | [facility] DEPARTMENT OF | [facility] | [place] [address] | | | PATHOLOGY | [address] | | | + + + + + APTT (ACT. PART. THROMBO TIME) (04/29/2007 6:15 PM PST) + + + + + + | Component | Value | Ref Range | Performed | Pathologist | | | | | At | Signature | + + + + + + | APTT | 32.3Comment: | 26.0 - 36.0 | [facility] | | | | APTT Therapeutic Range | seconds | DEPARTMENT | | | | | | OF | | | | | | PATHOLOGY | | | | (75-120)sec | | | | | | Heparin levels | | | | | | of 0.35-0.7 U/mL | | | | + + + + + + + + | Specimen | + + | | + + + + + + + | Performing | Address | City/State/Zipcode | Phone Number | | Organization | | | | + + + + + | [facility] DEPARTMENT OF | [address] | [place] [address] | | | PATHOLOGY | [address] | | | + + + + + | [facility] DEPARTMENT OF | [address] | [place] [address] | | | PATHOLOGY | [address] | | | + + + + + PHOSPHORUS, PLASMA (04/29/2007 6:15 PM PST) + +-------+ + + + | Component | Value | Ref Range | Performed | Pathologist | | | | | At | Signature | + +-------+ + + + | PHOSPHORUS, | 3.4 | 2.4 - 4.7 mg/dL | [facility] | | | PLASMA | | | DEPARTMENT | | | (LAB) | | | OF | | | | | | PATHOLOGY | | + +-------+ + + + + + | Specimen | + + | | + + + + + + + | Performing | Address | City/State/Zipcode | Phone Number | | Organization | | | | + + + + + | [facility] DEPARTMENT OF | [address] | [place] [address] | | | PATHOLOGY | [address] | | | + + + + + | [facility] DEPARTMENT OF | [address] | [place] [address] | | | PATHOLOGY | [address] | | | + + + + + PROTHROMBIN TIME (04/29/2007 6:15 PM PST) + + + + + + | Component | Value | Ref Range | Performed | Pathologist | | | | | At | Signature | + + + + + + | INR | 1.05Comment: | 0.90 - 1.20 INR | [facility] | | | | PT INR Therapeutic | | DEPARTMENT | | | | ranges for full | | OF | | | | anticoagulation: | | PATHOLOGY | | | | INR for | | | | | | Venous Thromboembolism | | | | | | | | | | | | (2.0-3.0)INR | | | | | | INR for most | | | | | | patients with mech. | | | | | | valves (2.5-3.5)INR | | | | + + + + + + + + | Specimen | + + | | + + + + + + + | Performing | Address | City/State/Zipcode | Phone Number | | Organization | | | | + + + + + | [facility] | [facility] | [place] [address] | | | PATHOLOGY | [address] | | | + + + + + | [facility] DEPARTMENT OF | [address] | [place] [address] | | | PATHOLOGY | [address] | | | + + + + + CALCIUM, IONIZED, WHOLE BLOOD (04/29/2007 6:15 PM PST) + + + + + + | Component | Value | Ref Range | Performed | Pathologist | | | | | At | Signature | + + + + + + | ANNMARIE ICA, | 1.10 (L) | 1.14 - 1.32 | [facility] | | | WHOLE BLD | | mmol/L | DEPARTMENT | | | | | | OF | | | | | | PATHOLOGY | | + + + + + + | PH, WHOLE | 7.43 | | [facility] | | | BLOOD | | | DEPARTMENT | | | | | | OF | | | | | | PATHOLOGY | | + + + + + + | CALC ICA, | 1.11 (L) | 1.14 - 1.28 | [facility] | | | WHOLE BLD | | mmol/L | DEPARTMENT | | | | | | OF | | | | | | PATHOLOGY | | + + + + + + + + | Specimen | + + | | + + + + + | Narrative | Performed At | + + + | Ionized Calcium, Whole Blood | [facility] | | | DEPARTMENT OF | | | PATHOLOGY | + + + + + + + + | Performing | Address | City/State/Zipcode | Phone Number | | Organization | | | | + + + + + | [facility] DEPARTMENT OF | [address] | [place] [address] | | | PATHOLOGY | [address] | | | + + + + + | [facility] | [address] | [place] [address] | | | PATHOLOGY | [address] | | | + + + + + TROPONIN I, PLASMA (04/29/2007 6:15 PM PST) + + + + + + | Component | Value | Ref Range | Performed | Pathologist | | | | | At | Signature | + + + + + + | TROPONIN I | Spc unsat | <0.50 ng/mL | [facility] | | | | | [...] | + + + + + | [facility] | [address] | [place] [address] | | | PATHOLOGY | [address] | | | + + + + + | [facility] | [address] | [place] [address] | | | PATHOLOGY | [address] | | | + + + + + documented in this encounter Visit Diagnoses Not on filedocumented in this encounter"
--- OUTSIDE RECORDS SUMMARY | ~2019-11-02 | XMS | Encounter Summary ---
Demographics + + + | Address | [address] | | | [place] [address] | + + + | Home Phone | | + + + | Preferred Language | Unknown | + + + | Marital Status | Single | + + + | Catholic Affiliation | BAP | + + + [...] Team Providers + +------+ + | Care Rheologist Name | Role | Phone | + [...] | | | | nscribed | | [facility] | | | | | | [place] [address] | | | | | | [phone] | | +--------+ + + + + [...] Bina Harrington - 05/13/2007 1:35 PM PDT [id number] 8005/02/2007 [id number] THEODOREKOLE JUAREZ [id number] Admission Date: 04/29/2007 Discharge Date: 05/02/2007 Staff Physician: Bina Harrington N.P. ADDENDUM The patient phoned prescription of Keflex 500 mg p.o. q.i.d. x5 days to [facility] at [phone]. Bina Harrington N.P. / [id number] / [id number] / [id number] / Reviewed or Edited By Bina Harrington on 05-04-2007 Electronically signed by Orlando Churchill 05-13-2007 01:33:53 PM documented in this encounter Plan of Treatment Not on filedocumented as of this encounter Visit Diagnoses Not on filedocumented in this encounter"
--- OUTSIDE RECORDS SUMMARY | ~2019-11-02 | XMS | Encounter Summary ---
Demographics + + + | Address | [address] | | | [place] [address] | + + + | Home Phone | | + + + | Preferred Language | Unknown | + + + | Marital Status | Single | + + + | Restoration Affiliation | [id number] | + + + | Race | White | + + + | Ethnic Group | Not or | + + + Author + + + | Author | [facility] | | | and [place] | + + + | Organization | [facility] | | [...] Team Providers + +------+ + | Care Cloth Mercerizer Back Tender Name | Role | Phone | + [...] | | | | | disease) | [place], [place] | | | | | | ([facility]) | [address] | | | | | | Procedures | Phone: | | | | | | VAS Lwr Ext | [phone] | | | | | | Art Bilat w | Fax: | | | | | | DIANNE Multi | [phone] | | | | | | Lvl [...] | | | | | Peripheral | [address] | [place] | | | | | Arterial | Phone: | [place] | | | | | Disease | [phone] | [address] Phone: | | | | | | Fax: | [phone] | | | | | | [phone] | Fax: | | | | | | | [phone] | +--------+--------+ + + + + Encounter Details +--------+---------+ + + + | Date | Type | Department | Care Team | Description | +--------+---------+ + + + | 10/24/ | Office | [facility] | Ricci DeL eón, CLYDE | PAD (peripheral | | 2020 | Visit | VASCULAR SURGERY | [address] | artery disease) | | | | [address] | [place] | ([facility]) (Primary Dx); | | | | [place] | [address] | S/P aortobifemoral | | | | [address] | | bypass surgery; S/P | | | | [phone] | | femoral-femoral | | | | [...] De León DNP - 10/25/2019 9:30 AM [facility] [address] [place] [id number] Office: [phone] DATE OF VISIT: 10/25/2019 PATIENT NAME: Jairo Theodore : 1960; AGE: 59 y.o.; Sex:M PHONE NUMBER: ; ; PROVIDER: Ricci De León DNP PRIMARY CARE / REFERRING PHYSICIAN: No ref. provider found / Lauren Bob MD / [facility] [place] [facility] [address] REASON FOR EVALUATION / CHIEF COMPLAINT: Vascular [...] [place] | | | | | | [address] | | | | | | | | +--------+ + + + + | 11/07/ | Office | Vascular Surgery | Ricci De León DNP | | | 2019 | Visit | | [address] | | | | | | [place] | | | | | | [address] | | | | | | | | +--------+ + + + + + +---------+--------+ + + | Name | Type | Priori | Associated Diagnoses | Order Schedule | | | | ty | | | + +---------+--------+ + + | VAS Lwr Ext Art | Imaging | Routin | PAD (peripheral | Expected: 10/25/2019 | | Bilat w DIANNE Multi | | e | artery disease) | (Approximate), | | Lvl | | | (HCC) | Expires: 10/24/2020 | + +---------+--------+ + + documented as of this encounter Visit Diagnoses + + | Diagnosis | + + | PAD (peripheral artery disease) ([facility]) - Primary Unspecified disorders of arteries and [...]
--- OUTSIDE RECORDS SUMMARY | ~2019-11-02 | XMS | Encounter Summary ---
Demographics + + + | Address | [address] | | | [place] [address] | + + + | Home Phone | | + + + | Preferred Language | Unknown | + + + | Marital Status | Single | + + + | Congregational Affiliation | 1009 | + + + | Race | White | + + + | Ethnic Group | Not or | + + + Author + + + | Author | [facility] | | | and [place] | + + + | Organization | [facility] | | | [...] Team Providers + +------+ + | Care Intermediate Project Manager Name | Role | Phone | [...] | | | | | disease) | [place], [place] | | | | | | ([facility]) | [address] | | | | | | Procedures | Phone: | | | | | | VAS Lwr Ext | [phone] | | | | | | Art Bilat w | Fax: | | | | | | DIANNE Multi | [phone] | | | | | | Lvl [...] | | | | | Peripheral | [address] | [place] | | | | | Arterial | Phone: | [place] | | | | | Disease | [phone] | [address] Phone: | | | | | | Fax: | [phone] | | | | | | [phone] | Fax: | | | | | | | [phone] | +--------+--------+ + + + + Encounter Details +--------+---------+ + + + | Date | Type | Department | Care Team | Description | +--------+---------+ + + + | 10/24/ | Office | [facility] | Ricci De León, CLYDE | PAD (peripheral | | 2020 | Visit | VASCULAR SURGERY | [address] | artery disease) | | | | [address] | [place] | ([facility]) (Primary Dx); | | | | [place] | [address] | S/P aortobifemoral | | | | [address] | | bypass surgery; S/P | | | | [phone] | | femoral-femoral | | | | [...] De León DNP - 10/25/2019 9:30 AM [facility] [address] [place] [id number] Office: [phone] DATE OF VISIT: 10/25/2019 PATIENT NAME: Jairo Theodore : 1960; AGE: 59 y.o.; Sex:M PHONE NUMBER: ; ; PROVIDER: Ricci De León DNP PRIMARY CARE / REFERRING PHYSICIAN: No ref. provider found / Lauren Bob MD / [facility] / [facility] [address] REASON FOR EVALUATION / CHIEF COMPLAINT: Vascular [...] [place] | | | | | | [address] | | | | | | | | +--------+ + + + + | 11/07/ | Office | Vascular Surgery | Ricci De León DNP | | | 2019 | Visit | | [address] | | | | | | [place] | | | | | | [address] | | | | | | | [...] + + | PAD (peripheral artery disease) ([facility]) - Primary Unspecified disorders of [...]
--- OUTSIDE RECORDS SUMMARY | ~2019-11-02 | XMS | Encounter Summary ---
Demographics + + + | Address | [address] | | | [place] [address] | + + + | Home Phone | | + + + | Preferred Language | Unknown | + + + | Marital Status | Single | + + + | Jainism Affiliation | [id number] | + + + | Race | White | + + + | Ethnic Group | Not or | + + + Author + + + | Author | [facility] | | | and [place] | + + + | Organization | [facility] | | [...] Providers + +------+ + | Care Clinical Lab Technologist Name | Role | Phone | + [...] + + | 10/07/ | Anesthesia | [facility] | [facility], | | | 2020 | Event | [facility] | DO [address] | | | | | [address]PER[address] | [address] | | | | | [address] | [place] [address] | | | | | [place], [place] | [phone] | | | | | [address] | | | | | | [phone] | | | +--------+ + + + [...] +----+---+ + + | | 1 | [place] | | | | 0 | 43-degrees | | | | 0 | | | | | 0 | | | +----+---+ + + | | 1 | Quick Note | PRBC transfusion Unit [id number] | | | 3 | | | | | 3 | | | | | 2 | | | +----+---+ + + | | 1 | Quick Note | PRB unit [id number] | | | 3 | | | [...] Amanda Tim RN | | IV | rwta-vxy-ubxygj catheter system; | | | | | [...] 10/11/19; 09 (not present upon | [facility] | | | | arrival) | | [...] EVALUATION Jairo Theodore 59 y.o. male 1960 [id number] Procedure(s) THROMBECTOMY / EMBOLECTOMY of fem fem bypass (N/A ) BYPASS GRAFT FEMORAL-POPLITEAL (Bilateral Leg Upper) ANGIOGRAM - EXTREMITY BILATERAL (47590) (Bilateral ) Cooperates? Yes Mental Status Answers [...] Orlando Ambriz DO 10/08/2019 2:[address] [facility] [place] [facility] [...] EVALUATION Jairo Theodore 59 y.o. male 1960 [id number] Procedure(s): THROMBECTOMY / EMBOLECTOMY of fem fem [...] who presents as a tra nsfer from [facility] ED for pseudoaneurysm of the right [...] NOTE Jairo Theodore 59 y.o. male 1960 [id number] THROMBECTOMY / EMBOLECTOMY of fem fem bypass (N/A ) BYPASS GRAFT FEMORAL-POPLITEAL (Bilateral Leg Upper) ANGIOGRAM - EXTREMITY BILATERAL (53532) (Bilateral ) HANDOFF NOTE Handoff Protocol Used: [...] Orlando Ambriz DO 10/08/2019 2:[address] [facility] [place] Amb[facility] at [...] [place] | | | | | | [address] | | | | | | | | +--------+ + + + + | 11/07/ | Office | Vascular Surgery | Ricci De León DNP | | 2019 | Visit | | [address] | | | | | | [place] | | | | | | [address] | | | | | | | [...]
--- OUTSIDE RECORDS SUMMARY | ~2019-11-02 | XMS | Encounter Summary ---
Demographics + + + | Address | [address] | | | [place] [address] | + + + | Home Phone | | + + + | Preferred Language | Unknown | + + + | Marital Status | Single | + + + | Holiness Affiliation | 1009 | + + + | Race | White | + + + | Ethnic Group | Not or | + + + Author + + + | Author | [facility] | | | and [place] | + + + | Organization | [facility] | | | [...] Team Providers + +------+ + | Care Guest Service Representative Name | Role | Phone | + [...] + + | 10/07/ | Surgery | [facility] | Magdiel Arteaga MD | THROMBECTOMY / | | 2019 | [facility] | [address] | EMBOLECTOMY of fem | | | | OPERATING RO[address] | [address] | fem bypass | | | | [address] | [place] [address] | | | | | [place], [place] | [phone] | | | | | [address] | | | | | | [phone] | | | +--------+---------+ + + + [...] GRAFT FEMORAL-POPLITEAL (Bilateral) ANGIOGRAM - EXTREMITY BILATERAL (31297) (Bilateral) Chief Complaint: No chief complaint on [...] who was admitted on 10/03/2019 Transfer from [facility] with bilateral hip and pelvic burning pain [...] have wound check in 2 weeks wit [facility] to provide transportation, continue with aspirin 81 mg daily, Plavix 75 mg daily, atorv astatin 40 mg daily. Active Problems: Alcohol abuse/ Tobacco abuse advised to stop smoking and drinking Cellulitis of right foot has been completely treated with Augmentin while in the hospital Discharge Information: Follow up: [facility]resita Bob [facility] [place] [address] Follow up for Home health Wound Care [facility] [address] [place] [phone] Follow up Wound Care and Physical [...] you recover. Don t drive for at [id number] after your surgery or while you are [...] Herve last reviewed this educational content on 11/29/201819995787-9877 [employer]. [address] [place] [address], [place] [address]. All righ ts reserved. This information is [...] of developing AAA decreases. To learn more Smokefree.gov/hwbm-rq-fq-expert National Cancer [place] Smoking Quitline:908-25A-GXXP (016-352-9821) [employer] last reviewed this educational content on 12/30/201819995771-4923 [employer]. [address] [place] [address], [place] [address]. All righ ts reserved. This information is [...] find a support program: Free national quitline 126-EKDI-OJA (456-703-7893) [facility] quit-smoking programs [employer] [employer] 277-066-8596 [place] [employer] 112-285-3092 Support at home is important too. Family and friends can offer praise and reassurance. If t he smoker in your life finds it hard to quit, encourage them to keep trying. Try kzir-hru-tclrrbx medicine Nicotine replacement therapymay make iteasier to [...] to quit smoking, try these resources: www.cdc.gov/tobacco/quit_smoking/ 059-NHMJ-HOC (678-399-9894) www.smokefree.gov 808-59Y-HTKJ (854-298-0809) www.lung.org/stop-smoking/ 800-LUNGUSA (470-444-4605) [employer] lynn reviewed this educational content on 01/29/201919992649-1373 [employer]. [address] [place] [address]. All righ ts reserved. This information is [...] swallow 2 | 90 | 0 | 08/17/20 | | | (TUMS) 500 mg | [...] of alcohol abuse who presented to [facility] with com plaints of cellulitis of right leg as well as enlarging pseudoaneurysm of right MIXING PLANT DUMPER. He unde rwent aortobifemoral bypass in 1999. [...] scan which revealed enlargement of known right MIXING PLANT DUMPER pseudoaneurysm. He was transferred to [facility] for evaluation and Vascular was consulted [...] importance of following up with our office long-term. Still recommend discharge ho me with assist [...] possible d/ c tomorrow Electronically signed by: Niegl Starkey RN 10/15/2019 6:53 PM PDT undo Pack MD - 10/15/2019 10:30 AM PDT . Jairo Theodore [id number] Hospital Day: 12 SUBJECTIVE Events Overnight: Patient [...] right [facility] femoral [facility] 8 mm PTFE. Continue with [...] been in touch with his Merrill, Lele [phone] and he did not want me to [...] and management as well as Computerized Physician Tug Boat Engineer. 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 He unde rwent aortobifemoral bypass in 1999. [...] scan which revealed enlargement of known right MIXING PLANT DUMPER pseudoaneurysm. He was transferred to [facility] for evaluation and Vascular was consulted [...] swelling. Call with any neurovascular changes. Appr [facility] assistance with management of this patient. Disposition: Inpatient Code Status: Full Chelis Arteaga PA-C 10/15/2019 Zuleyka Avila RN - [...] - 10/14/2019 9:23 AM PDT Jairo Theodore [id number] Hospital Day: 11 SUBJECTIVE Events Overnight: Patient [...] been in touch with his Merrill, Lele [phone] and he did not want me to [...] and management as well as Computerized Physician Tug Boat Engineer. 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 He unde rwent aortobifemoral bypass in 1999. [...] scan which revealed enlargement of known right MIXING PLANT DUMPER pseudoaneurysm. 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 He unde rwent aortobifemoral bypass in 1999. [...] scan which revealed enlargement of known right MIXING PLANT DUMPER pseudoaneurysm. He was transferred to [facility] for evaluation and Vascular was consulted [...] different from t wyatt original. Jairo Theodore [id number] Hospital Day: 10 SUBJECTIVE Events Overnight: Patient [...] right to left femoral [facility] with 8 mm PTFE. Continue with [...] been in touch with his Merrill, Lele [phone] and he did not want me to [...] and management as well as Computerized Physician Tug Boat Engineer. Dictation software, [employer], used which may contain error for similar [...] different from the orig inal. Jairo Theodore [id number] Hospital Day: 9 SUBJECTIVE Events Overnight: Patient [...] right to left femoral [facility] with 8 mm PTFE. Continue with [...] been in touch with his Merrill, Lele [phone] and he did not want me to [...] and management as well as Computerized Physician Tug Boat Engineer. 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 He unde rwent aortobifemoral bypass in 1999. [...] scan which revealed enlargement of known right MIXING PLANT DUMPER pseudoaneurysm. He was transferred to [facility] for evaluation and Vascular was consulted [...] Color, UA YELLOW Clarity, Urine CLEAR Specific [place], Urine 1.008 1.002 - 1.030 Leukocyte esterase, [...] performed at [facility];[address] [place] [address] Type and Screen Collection Time: 10/12/19 7:52 AM Result Value Ref Range ABO Rh A POSITIVE Antibody Screen NEGATIVE BB BAND [id number] BB BAND Testing performed at [facility];[address] [place] [address] UNIT # [id number] Product Code LEUKODEPLETED PC Unit Division 00 Unit Status ALLOCATED Transfusion Status OK TO TRANSFUSE CROSSMATCH RESULT COMPATIBLE UNIT # [id number] Product Code LEUKODEPLETED PC Unit Division 00 [...] call wit h any neurovascular changes. Appreciate [facility] assistance with management of this pat ient. [...] be different from the originluis lWalter Theodore [id number] Hospital Day: 8 SUBJECTIVE Events Overnight: Patient [...] right to left femoral [facility] with 8 mm PTFE. Continue with [...] been in touch with his Merrill, Lele [phone] and he did not want me to [...] and management as well as Computerized Physician Tug Boat Engineer. 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 He unde rwent aortobifemoral bypass in 1999. [...] scan which revealed enlargement of known right MIXING PL[employer] DUMPER pseudoaneurysm. He was transferred to [facility] for evaluation and Vascular was consulted [...] Full Chelsi Arteaga PA-C 10/11/2019 Rachel Trinidad [facility] - 10/10/2019 11:59 [...] PO medications. 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 He unde rwent aortobifemoral bypass in 1999. [...] scan which revealed enlargement of known right MIXING PLANT DUMPER pseudoaneurysm. He was transferred to [facility] for evaluation and Vascular was consulted [...] might be different from the or iginal. [facility] Service: Wheel Molder Progress Note Jairo Theodore 59 y.o. Hospital [...] was farnsworth sferred on 10/03/2019 from [facility] for right foot swelling and increase [...] procedures. Tyler Elias MD 10/10/2019 Dictation software, [employer], was used which may contain error with similar sound words even after review. Portions of this chart may have been copied from previous notes for continuity of care. Daniella Arias RN - 10/09/2019 10:20 AM PDTFamily/ medicare insurance specialist updated by pt. Chelsi Orta PA-C - [...] of alcohol abuse who presented to [facility] with com plaints of cellulitis of right leg as well as enlarging pseudoaneurysm of right MIXING PLANT DUMPER. He unde rwent aortobifemoral bypass in 1999. [...] scan which revealed enlargement of known right MIXING PLANT DUMPER pseudoaneurysm. He was transferred to [facility] for evaluation and Vascular was consulted [...] Gr MD - 10/09/2019 1:28 AM PDT [facility] Service: Wheel Molder Progress Note Jairo Theodore 59 y.o. Hospital [...] was farnsworth sferred on 10/03/2019 from [facility] for right foot swelling and increase [...] procedures. Julian Gr MD 10/09/2019 Dictation software, [employer], was used which may contain error with [...] by vascular surgery. R eport given to ELECTRONICS ENGINEERING TECHNICIAN. Pt safely transferred to room 20598. Incisions and dressings were teresa an and dry. Post tib and pedal pulses dopplerable. JADA SHINE RN Chyna Rashid MD - 10/08/2019 4:07 PM PDT [facility] Service: Hospitalist Progress Note Hospital Day: LOS: 5 days SUBJECTIVE Patient Summary: Mr. Theodore is a 59 yr old man active smoker 1ppday with alcohol abuse, hx of PAD, s/p right aorto bifemoral bypass in 1999 complicated by pseudoaneurysm, s/p revision, [facility] for right foot swelling and increasing [...] endarterectomy, right to left femoral [facility]. Patient had an EBL [...] Rashid MD - 10/07/2019 3:55 PM PDT [facility] Service: Hospitalist Progress Note Hospital Day: LOS: 4 days SUBJECTIVE Patient Summary: Mr. Theodore is a 59 yr old man active smoker 1ppday with alcohol abuse, hx of PAD, s/p right aorto bifemoral bypass in 1999 complicated by pseudoaneurysm, s/p revision, was transferred from [facility] ED for right foot swelling and [...] A POSITIVE Antibody Screen NEGATIVE BB BAND BATTERY INSPECTOR 0630 BB BAND Testing performed at [facility];[address] [place] [address];[place] [address] UNIT # [id number] Product Code LEUKODEPLETED PC Unit Division 00 Unit Status ISSUED Transfusion Status OK TO TRANSFUSE CROSSMATCH RESULT COMPATIBLE UNIT # [id number] Product Code LEUKODEPLETED PC Unit Division 00 Unit Status ISSUED Transfusion Status OK TO TRANSFUSE CROSSMATCH RESULT COMPATIBLE UNIT # [id number] Product Code LEUKODEPLETED PC Unit Division 00 Unit Status ALLOCATED Transfusion Status OK TO TRANSFUSE CROSSMATCH RESULT COMPATIBLE UNIT # [id number] Product Code LEUKODEPLETED PC Unit Division 00 Unit Status ALLOCATED Transfusion Status OK TO TRANSFUSE CROSSMATCH RESULT COMPATIBLE Red Blood Cells (PRBC) - Crossmatch and Hold Result Value Ref Range Product Code RED CELL GROUP Units ordered 2 BLOOD BANK COMMENT ORDER RECEIVED IN BLOOD BANK. 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 He unde rwent aortobifemoral bypass in 1999. [...] scan which revealed enlargement of known right MIXING PLANT DUMPER pseudoaneurysm. He was transferred to [facility] for evaluation and Vascular was consulted [...] A POSITIVE Antibody Screen NEGATIVE BB BAND BATTERY INSPECTOR 0630 BB BAND Testing performed at [facility];[address] [place] [address] UNIT # [id number] Product Code LEUKODEPLETED PC Unit Division 00 Unit Status ALLOCATED Transfusion Status OK TO TRANSFUSE CROSSMATCH RESULT COMPATIBLE UNIT # [id number] Product Code LEUKODEPLETED PC Unit Division 00 Unit Status ALLOCATED Transfusion Status OK TO TRANSFUSE CROSSMATCH RESULT COMPATIBLE Red Blood Cells (PRBC) - Crossmatch and Hold Collection Time: 10/07/19 6:30 AM Result Value Ref Range Product Code RED CELL GROUP Units ordered 2 BLOOD BANK COMMENT ORDER RECEIVED IN BLOOD BANK. BLOOD BANK COMMENT Testing performed at [facility];[address] [place] [address] PROBLEM LIST Principal Problem: Pseudoaneurysm right aorto [...] Abel PA-C 10/07/2019 Associated attestation - Magdiel Arteaag MD - 10/07/2019 7:25 AM PDTI saw and evaluated th e patient, participated in the management, and agree with the findings in the above note. W e discussed the case and the treatment plan. Case cancelled yesterday d/t OR staffing. No changes overnight. Plan for OR this morning. Magdiel Arteaga MD Vascular Surgery Chyna Shook MD - 10/06/2019 10:34 AM PDT [facility] Service: Hospitalist Progress Note Hospital Day: LOS: 3 days SUBJECTIVE Patient Summary: Mr. 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 He unde rwent aortobifemoral bypass in 1999. [...] scan which revealed enlargement of known right MIXING PLANT DUMPER pseudoaneurysm. He was transferred to [facility] for evaluation and Vascular was consulted [...] Rashid MD - 10/05/2019 12:14 PM PDT [facility] Service: Hospitalist Progress Note Hospital Day: LOS: 2 days SUBJECTIVE Patient Summary: Mr. Theodore is a 59 yr old man active smoker 1ppday with alcohol abuse, hx of PAD, s/p right aorto bifemoral bypass in 1999 complicated by pseudoaneurysm, s/p revision, was transferred from [facility] ED for right foot swelling and [...] of alcohol abuse who presented to [facility] with com plaints of cellulitis of right leg as well as enlarging pseudoaneurysm of right MIXING PLANT DUMPER. He unde rwent aortobifemoral bypass in 1999. [...] scan which revealed enlargement of known right MIXING PLANT DUMPER pseudoaneurysm. He was transferred to [facility] for evaluation and Vascular was consulted [...] and open repair for his enlarging right MIXING PLANT DUMPER pseudoaneurysm. He will need r etroperitoneal exposure [...] Rashid MD - 10/04/2019 9:15 AM PDT [facility] Service: Hospitalist Progress Note Hospital Day: LOS: 1 day SUBJECTIVE Patient Summary: Mr. Theodore is a 59 yr old man active smoker 1ppday with alcohol abuse, hx of PAD, s/p right aorto bifemoral bypass in 1999 complicated by pseudoaneurysm, s/p revision, was [facility] for right foot swelling and increasing [...] performed at [facility];[address] [place] [address];[place] [address] ECG 12 lead Result Value Ref Range [...] if blood cultures were taken at [facility] Prn pain medication Pseudoaneurysm right femoral [...] might be different from t he original. [facility] Service: Hospitalist Admission History & Physical Date [...] resents as a transfer from [facility] ED for pseudoaneurysm of the right groin and celluli tis of the RLE. Per patient right pseudoaneurysm of the right groin has been getting bigger for at least a year. Right foot swelling for 5 days. Patient reports [facility] at [facility] a year but this [...] performed at [facility];[address] [place] [address];[place] [address] ECG 12 lead Result Value Ref Range INTERPRETATION TEXT Not Confirmed IMAGING No orders to display EKG at 2310: NSR, VR 72, Qtc 455. Data from [facility] -Ultrasound impression: 6.3 x 5.1 x 5.8 [...] delirium tremens, seizures from withdrawals or withdrawals -[facility] protocol initiated Tobacco abuse: -Quit smoking today smoke a pack of cigarettes per day -Nicotine patch Hypokalemia GI and DVT prophylaxis Code Status: Full Code Dictation software, [employer], used which may contain errors for similar [...] from the [facility] Service: Wheel Molder Initial Consult Note Jairo Theodore 59 y.o. [...] transf erred 5 days ago from [facility] for right foot swelling and increase [...] file Gets together: Not on file Attends episcopal service: Not on file Active member of [...] PDTAssociated Order(s): PROVIDER TO PROVIDER CONSUL T [facility] Service: Vascular Surgery Initial Consult Note Date of Admission: 10/03/2019 Date of Consultation: 10/04/2019 Reason for Consultation: Pseudoaneurysm of right MIXING PLANT DUMPER Primary Care Physician: No Physician on file History Obtained From: Patient, chart review Code Status: Full Code CHIEF COMPLAINT: Right foot swelling and pain; Enlarging right femoral pseudoaneurysm HISTORY OF PRESENT ILLNESS The patient is a 59 y.o. male with significant past medical history of tobacco abuse, HTN, CAD, history of alcohol abuse who presented to [facility] with complaints of cellulitis o f right leg as well as enlarging pseudoaneurysm of right MIXING PLANT DUMPER. He underwent aortobifemoral by pass in 1999. [...] which reveal ed enlargement of known right MIXING PLANT DUMPER pseudoaneurysm. He was transferred to [facility] for evaluation and Vascular was consulted [...] - The patient was transferr ed to [facility] for evaluation of his enlarging pseudoaneurysm, which has been the same size for the last year he reports. [facility] last year but was lost to any follow up. 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 His C TA with runoff yesterday showed enlarging right femoral pseudoaneurysm. Left MIXING PLANT DUMPER shows no in flow but reconstitutes. The patient will require revascularization and open repair for his e nlarging right MIXING PLANT DUMPER pseudoaneurysm. He will need retroperitoneal exposure with [...] Current Outpt/Agency/Support Groups: yes Community Agency Name: [facility] Disciplines: RN and PT - RN for wound care Equipment Durable Medical Equipment Provider: Home Equipment at Discharge: none Equipment Used at Home: cane, straight, single point Pharmacy Pharmacy/Medication needs: Pt is going to use Rx Pharm[facility] and will use his Medicare Part D benefits. KNOCKER OFF and Pt called [facility], got him reestablished with the [facility], has not been seen since 2018 . Pt is now assigned to [facility]. KNOCKER OFF p/c with Rudolph at [facility] Linda Bob, states they will be calling Pt for follow up appt and will send referral for outpatient wound care. KNOCKER OFF p/c with Carol at [facility], states she has received [facility] orders in the p ast and will follow up with Dr. Bob's office. KNOCKER OFF provided referral and faxed Home health referral. [...] Bed Mobility Supine to Sit, Level of [place]: modified independent Sit to Supine, Level of [place]: modified independent Safety Issues: decreased use of legs for bridging/pushing Transfers Sit-Stand, Level of [place]: supervised Stand-Sit, Level of [place]: supervised Omq-[id number]-Cpa, Assistive Device: none Gait Level of [place]: supervised Assistive Device: none Distance (feet): 40 Goals Reflects last filed data and may be from multiple contributors. All Bed Mobility Goal Most Recent Value LTG Status new at 10/09/2019 1108 LTG [place] Level modified independent at 10/09/2019 1108 LTG Assistive Device none at 10/09/2019 1108 All Transfers Goal Most Recent Value LTG Status new at 10/09/2019 1108 LTG [place] Level modified independent at 10/09/2019 1108 LTG Assistive Device 2 wheeled walker (FWW) at 10/09/2019 1108 Gait Goal Most Recent Value LTG Status new at 10/09/2019 1108 LTG [place] Level modified independent at 10/09/2019 1108 LTG Assistive Device 2 wheeled walker (FWW) at 10/09/2019 1108 LTG Distance (feet) 100 at 10/09/2019 1108 Stair Goal Most Recent Value LTG Status new at 10/09/2019 1108 LTG [place] Level modified independent at 10/09/2019 1108 LTG [...] bed rails Supine to Sit, Level of [place]: modified independent Safety Issues: decreased use of legs for bridging/pushing Impairments: ROM decreased, strength decreased Transfers Sit-Stand, Level of [place]: stand by assist, verbal cues required Stand-Sit, Level of [place]: stand by assist, verbal cues required Ere-Ybreh-Sru, Assistive Device: 2 wheeled walker (FWW), none Toilet, Level of [place]: stand by assist, verbal cues required Toilet, Assistive Device: 2 wheeled walker (FWW), grab bars Gait Gait Comments: antalgic gait with flexed trunk posture and intermittent crouch position Level of [place]: stand by assist, verbal cues required(verbal cues [...] LTG Status new at 10/09/2019 1108 LTG [place] Level modified independent at 10/09/2019 1108 LTG Assistive Device none at 10/09/2019 1108 All Transfers Goal Most Recent Value LTG Status new at 10/09/2019 1108 LTG [place] Level modified independent at 10/09/2019 1108 LTG Assistive Device 2 wheeled walker (FWW) at 10/09/2019 1108 Gait Goal Most Recent Value LTG Status new at 10/09/2019 1108 LTG [place] Level modified independent at 10/09/2019 1108 LTG Assistive Device 2 wheeled walker (FWW) at 10/09/2019 1108 LTG Distance (feet) 100 at 10/09/2019 1108 Stair Goal Most Recent Value LTG Status new at 10/09/2019 1108 LTG [place] Level modified independent at 10/09/2019 1108 LTG [...] Bed Mobility Supine to Sit, Level of [place]: minimal assist (75% patient effort) Transfers Sit-Stand, Level of [place]: minimal assist (75% patient effort) Gait Level of [place]: minimal assist (75% patient effort) Assistive Device: [...] LTG Status new at 10/09/2019 1108 LTG [place] Level modified independent at 10/09/2019 1108 LTG Assistive Device none at 10/09/2019 1108 All Transfers Goal Most Recent Value LTG Status new at 10/09/2019 1108 LTG [place] Level modified independent at 10/09/2019 1108 LTG Assistive Device 2 wheeled walker (FWW) at 10/09/2019 1108 Gait Goal Most Recent Value LTG Status new at 10/09/2019 1108 LTG [place] Level modified independent at 10/09/2019 1108 LTG Assistive Device 2 wheeled walker (FWW) at 10/09/2019 1108 LTG Distance (feet) 100 at 10/09/2019 1108 Stair Goal Most Recent Value LTG Status new at 10/09/2019 1108 LTG [place] Level modified independent at 10/09/2019 1108 LTG [...] participation. Pt with an i ncontinent BM. JUDICIAL CLERK and PT assisting with mobility and pericare. [...] Transfers Additional Documentation: toilet Sit-Stand, Level of [place]: minimal assist (75% patient effort) Stand-Sit, Level of [place]: minimal assist (75% patient effort) [id number]-[id number], Assistive Device: 2 wheeled walker (FWW) Toilet, Level of [place]: minimal assist (75% patient effort) Toilet, Assistive Device: 2 wheeled walker (FWW) Safety Issues: loses balance backward, weight-shifting ability decreased, step length decre ased, sequencing ability decreased, balance decreased during turns Impairments: ROM decreased, strength decreased, impaired balance Gait Gait Comments: reduced step length BLE, excessive trunk flexion, reduced weight bearing RLE , avoidance COG over HAN Level of [place]: minimal assist (75% patient effort) Assistive Device: 2 wheeled walker (FWW) Distance (feet): 15x2 Goals Reflects last filed data and may be from multiple contributors. All Bed Mobility Goal Most Recent Value LTG Status new at 10/09/2019 1108 LTG [place] Level modified independent at 10/09/2019 1108 LTG Assistive Device none at 10/09/2019 1108 All Transfers Goal Most Recent Value LTG Status new at 10/09/2019 1108 LTG [place] Level modified independent at 10/09/2019 1108 LTG Assistive Device 2 wheeled walker (FWW) at 10/09/2019 1108 Gait Goal Most Recent Value LTG Status new at 10/09/2019 1108 LTG [place] Level modified independent at 10/09/2019 1108 LTG Assistive Device 2 wheeled walker (FWW) at 10/09/2019 1108 LTG Distance (feet) 100 at 10/09/2019 1108 Stair Goal Most Recent Value LTG Status new at 10/09/2019 1108 LTG [place] Level modified independent at 10/09/2019 1108 LTG [...] Recommendations: 2 wheeled walker (FWW), shower chair, sew on operator, sock aide, long handled sponge, long handled [...] bed rails Supine to Sit, Level of [place]: minimal assist (75% patient effort) Sit to Supine, Level of [place]: moderate assist (50% patient effort) Safety Issues: decreased use of legs for bridging/pushing, decreased use of arms for pushin g/pulling Impairments: ROM decreased, strength decreased, postural control impaired, pain Transfers Additional Documentation: sit to/from stand Sit-Stand, Level of [place]: minimal assist (75% patient effort) Stand-Sit, Level of [place]: maximal assist (25% patient effort) Xas-Uefij-Ugz, Assistive Device: 2 wheeled walker (FWW), gait belt Safety Issues: loses balance backward, weight-shifting ability decreased, step length decre ased, sequencing ability decreased, balance decreased during turns Impairments: ROM decreased, strength decreased, impaired balance ROM Comments: WFL Strength Comments: WFL. B preparator strength 4/5. B UE MMT 4/5 except for biceps 3+/5 Balance Sitting Balance: Static: good balance Sitting Balance: Dynamic: good balance Standing Balance: Static: poor balance Standing Balance: Dynamic: poor balance Goals Reflects last filed data and may be from multiple contributors. LB Dressing Goal Most Recent Value LTG Status new at 10/10/2019 1545 LTG [place] Level minimum assist (75% patient effort), set up required at 10/10/2019 1545 LTG Adaptive Equipment sew on operator, sock-aid at 10/10/2019 1545 Toilet Transfer Goal Most Recent Value LTG Status new at 10/10/2019 1545 LTG [place] Level minimum assist (75% patient effort) at [...] at bedside in ICU on turnover by team manager. Patient stat es he feels better, no [...] bed rails Supine to Sit, Level of [place]: minimal assist (75% patient effort) Transfers Bed-Chair, Level of [place]: minimal assist (75% patient effort) Wvi-Rfuii-Elo, Assistive Device: 2 wheeled walker (FWW), gait belt Sit-Stand, Level of [place]: minimal assist (75% patient effort), stand by assist Stand-Sit, Level of [place]: minimal assist (75% patient effort), stand by assist Gait Gait Comments: reduced step length BLE, excessive trunk flexion, reduced weight bearing RLE , avoidance COG over HAN Level of [place]: minimal assist (75% patient effort), verbal cues [...] LTG Status new at 10/09/2019 1108 LTG [place] Level modified independent at 10/09/2019 1108 LTG Assistive Device none at 10/09/2019 1108 All Transfers Goal Most Recent Value LTG Status new at 10/09/2019 1108 LTG [place] Level modified independent at 10/09/2019 1108 LTG Assistive Device 2 wheeled walker (FWW) at 10/09/2019 1108 Gait Goal Most Recent Value LTG Status new at 10/09/2019 1108 LTG [place] Level modified independent at 10/09/2019 1108 LTG Assistive Device 2 wheeled walker (FWW) at 10/09/2019 1108 LTG Distance (feet) 100 at 10/09/2019 1108 Stair Goal Most Recent Value LTG Status new at 10/09/2019 1108 LTG [place] Level modified independent at 10/09/2019 1108 LTG [...] Family Contact Information: Name: Lele Conley (Roommate) [id number] signed by PORTILLO Varner at 10/10/2019 10:13 [...] HOB elevated Supine to Sit, Level of [place]: maximal assist (25% patient effort) Safety Issues: decreased use of legs for bridging/pushing, impaired trunk control for bed m obility Impairments: pain, strength decreased, ROM decreased Transfers Additional Documentation: sit to/from stand, bed to/from chair Bed-Chair, Level of [place]: moderate assist (50% patient effort) Qiq-Fypxf-Yoc, Assistive Device: 2 wheeled walker (FWW) Sit-Stand, Level of [place]: minimal assist (75% patient effort) Stand-Sit, Level of [place]: minimal assist (75% patient effort) Mvu-Nkdle-Xzr, Assistive Device: 2 wheeled walker (FWW) Safety [...] LTG Status new at 10/09/2019 1108 LTG [place] Level modified independent at 10/09/2019 1108 LTG Assistive Device none at 10/09/2019 1108 All Transfers Goal Most Recent Value LTG Status new at 10/09/2019 1108 LTG [place] Level modified independent at 10/09/2019 1108 LTG Assistive Device 2 wheeled walker (FWW) at 10/09/2019 1108 Gait Goal Most Recent Value LTG Status new at 10/09/2019 1108 LTG [place] Level modified independent at 10/09/2019 1108 LTG Assistive Device 2 wheeled walker (FWW) at 10/09/2019 1108 LTG Distance (feet) 100 at 10/09/2019 1108 Stair Goal Most Recent Value LTG Status new at 10/09/2019 1108 LTG [place] Level modified independent at 10/09/2019 1108 LTG [...] 1.7 Estimated Energy Needs Energy Calorie Requirements: 3183-1776(28-32 kcal/kg per 54.3 kg admit wt ) [...] Ongoing, progressing Flowsheets (Taken 10/09/2019 1024) Participants: pillowcase maker dietitian/nutrition services advanced practice nurse nursing pharmacy [...] started on clear liquid diet. lan of [facility] - Viv Sanots MSW - 10/09/2019 9:44 AM PDTAttended morning rounds. Pt transferred to ICU post -op for repair of thrombosed fem-fem artery bypass. Progressing. Await PT to eval and alissa baez recommendations. Has no PCP per CM note and FS. Insurance is [place]-. lan of [facility] Urszula Chaudhary RN - 10/09/2019 8:02 AM [...] 10/08/2019 2:31 PM PDT BRIEF OPERATIVE NOTE [facility] Pt. Name/Age/: Jairo Theodore 59 y.o. 1960 Med. Record Number: [id number] Date of admission: 10/03/2019 Date of Operation/Procedure: [...] disease (HCC) [I73.9] Surgeon: Magdiel Arteaga MD Import Clerk: Maicol Abel PA-C Anesthesia Provider(s): Anesthesiologist: Orlando Ambriz DO SONOSCOPE OPERATOR: Som Garcia CRNA Anesthesia Type: Anesthesia type not filed in the log. Procedure(s): THROMBECTOMY / EMBOLECTOMY of fem fem bypass BILATERAL BYPASS GRAFT FEMORAL-POPLITEAL WITH 6 MM PTFE ANGIOGRAM - EXTREMITY BILATERAL (13096) Operative Findings: Thrombosed femoral to femoral artery [...] Implant Name Type Inv. Item Serial No. [employer] Special Education Teacher Lot No. LRB No. Used Action GRAFT VAS PROPATEN 6-80MM - [id number] Graft GRAFT VAS PROPATEN 6-80MM [id number] WL G SABINA - NEPTALIGO NA N/A 1 Implanted GRAFT VAS PROPATEN 6-80MM - [id number] Graft GRAFT VAS PROPATEN 6-80MM [id number] WL G ORE - WLGO NA N/A 1 Implanted Counts: Instrument, sponge, and needle counts were correct prior to closure and at the con clusion of the case. Complications: None Disposition: The patient was taken to PACU Immediate Post-Operative Condition: Stable Electronically signed by: Magdiel Arteaga MD, 10/08/2019, 2:31 PM PDT p Note - Magdiel Arteaga MD - 10/08/2019 10 :06 AM PDT [facility] OPERATIVE REPORT PATIENT NAME: Jairo Theodore [...] the femorofemoral bypass. Using 2 CV 6 [place]-Jamie sutures the 6 mm bypass was anastomos [...] astomosis was created with 2 CV 6 [place]-Jamie sutures. Prior to completing the anastomosis the [...] an antibiotic solution. Hemostasis was achieved. 7 [place] drains were placed in both groins and [...] Magdiel Arteaga MD Vascular Surgery Dictation software, [employer], used which may contain error for similar sounding words even af ter review. Personal communication requested for any clarification. Electronically signed by: Magdiel Arteaga MD, 10/09/2019 10:[address] [facility] lan of Care - Aggie [...] Arteaga MD - 10/07/2019 7:00 PM PDT [facility] OPERATIVE REPORT PATIENT NAME: Jairo Theodore [...] vanced a wire and placed a 7 [place] sheath. We again attempted to select out [...] femoral endarterectomy was performed w ith a [place] elevator. There was good backbleeding from the [...] common femoral endarterectomy was performed using the [place] elevator. After performing the endarterect carlyle there [...] copiously irrigated. There was good hemostasis. 7 [place]ian flat AUGUSTUS drains were placed in both [...] Magdiel Arteaga MD Vascular Surgery Dictation software, [employer], used which may contain error for similar sounding words even af ter review. Personal communication requested for any clarification. Electronically signed by: Magdiel Arteaga MD, 10/09/2019 9:28 AM [facility] rief Op Note - Magdiel Arteaga MD - 10/07/2019 4:30 PM PDTFormatting of this note might be different from the or iginal. BRIEF OPERATIVE NOTE [facility] Pt. Name/Age/: Jairo Theodore 59 y.o. 1960 Med. Record Number: [id number] Date of admission: 10/03/2019 Date of Operation/Procedure: 10/07/2019 Preoperative Diagnosis: 1. Large right groin pseudoaneurysm 2. Peripheral arterial disease Postoperative Diagnosis: * Pseudoaneurysm (HCC) [I72.9] Surgeon: Magdiel Arteaga MD Import Clerk: Maicol Abel PA-C Anesthesia Provider(s): Anesthesiologist: Rudolph Lowery MD SONOSCOPE OPERATOR: Neville Rush CRNA Anesthesia Type: General Procedure(s): [...] Implant Name Type Inv. Item Serial No. [employer] Special Education Teacher Lot No. LRB No. Used Action GRAFT GORE PROPATEN [id number] - [id number] Graft GRAFT GORE PROPATEN [id number] WL GORE - WLGO NA Right 1 Implanted GRAFT HEMGRD KNIT [id number] - [id number] Graft GRAFT HEMGRD KNIT [id number] [employer]NA[employer]ES - MAQU [id number] Right 1 Implanted [...] VSS with one SBP in 170s recheck [id number]. Report given to preop nurse and 0600IVPB [...] VSS will continue to monitor. End of breanan ft review complete. Problem: Fall Injury Risk [...] Notes: Pt resides with his friend in [place]. 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 Pt scheduled for pseudoaneurysm repair on 10/04. [...] BUN 7* CREA 0.60* Estimated Energy Needs 1560-1010 kcal/day (28-32 kcal/kg per 54.3 kg admit [...] [place] | | | | | | [id number] | | | | | | | | +--------+ + + + + | 11/07/ | Office | Vascular Surgery | Ricci De León DNP | | | 2019 | Visit | | [address] | | | | | | [place] | | | | | | [address] | | | | | | | [...] Expected: | | | | e | ([facility]) right aorto | 10/23/2019, Expires: | | | | | femoral bypass | 10/15/2020 | + +---------+--------+ + + | CBC w/ Auto | Lab | Routin | Pseudoaneurysm | Expected: | | Differential | | e | ([facility]) right aorto | 10/23/2019, Expires: | | | | | femoral bypass | 10/15/2020 | + +---------+--------+ + + | Phosphorus | Lab | Routin | Pseudoaneurysm | 1 Occurrences | | | | e | ([facility]) right aorto | starting 10/16/2019 | | | | | femoral bypass | until 10/15/2020 | + +---------+--------+ + + | Magnesium | Lab | Routin | Pseudoaneurysm | Expected: | | | | e | ([facility]) right aorto | 10/23/2019, Expires: | | | | | femoral bypass | 10/15/2020 | + +---------+--------+ + + | Calcium | Lab | Routin | Pseudoaneurysm | Expected: | | | | e | ([facility]) right aorto | 10/23/2019, Expires: | | [...] | Referral | e | ([facility]) right aorto | | | | | | femoral bypass | | | | | | Cellulitis of right | | | | | | foot 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 ([facility]) | | | | | | [...] | | 9:22 AM | ([facility]) Peripheral | | | (53149) | | PDT | arterial disease | | | | | | (HCC) | | + +--------+ + + + | BYPASS GRAFT | | 10/08/2019 | Pseudoaneurysm | | | FEMORAL-POPLITEAL | | 9:22 AM | ([facility]) Peripheral | | | | | PDT | arterial disease | | | | | | ([facility]) | | + +--------+ + + + | THROMBECTOMY / | | 10/08/2019 | Pseudoaneurysm | | | EMBOLECTOMY | | 9:22 AM | ([facility]) Peripheral | | | | | [...] | + +--------+ + + + | EDWADR CASTILLO, | Routin | 10/07/2019 | | [...] LABORATORY | | | | performed at [facility], [address] | | | | | [address], | | | | | | [place] [address] | | | | + + + + + + + + | Specimen | + + | Blood | + + + + + + + | Performing | Address | City/State/Zipcode | Phone Number | | Organization | | | | + + + + + | [facility] | [address] | [place] [address] | [phone] | + + + + + Magnesium (10/16/2019 5:11 AM PDT) + + + + + + | Component | Value | Ref Range | Performed | Pathologist | | | | | At | Signature | + + + + + + | Magnesium | 1.7Comment: Testing | 1.7 - 2.4 mg/dL | [facility] | | | | performed at [facility];[address] | | LABORATORY | | | | [address];[place] | | | | | | [address] | | | | + + + + + + + + | Specimen | + + | Blood | + + + + + + + | Performing | Address | City/State/Zipcode | Phone Number | | Organization | | | | + + + + + | [facility] | [address] | [place] [address] | [phone] | + + + + + Potassium (10/16/2019 5:11 AM PDT) + + + + + + | Component | Value | Ref Range | Performed | Pathologist | | | | | At | Signature | + + + + + + | K | 3.0 (L)Comment: Testing | 3.5 - 4.9 | [facility] | | | | performed at [facility];[address] | mmol/L | LABORATORY | | | | [address];[place], [place] | | | | | | [address] | | | | + + + + + + + + | Specimen | + + | Blood | + + + + + + + | Performing | Address | City/State/Zipcode | Phone Number | | Organization | | | | + + + + + | [facility] | [address] | [place] [address] | [phone] | + + + + + CBC [...] LABORATORY | | | | performed at [facility], [address] | | | | | [address], | | | | | | [place] [address] | | | | + + + + + + + + | Specimen | + + | Blood | + + + + + + + | Performing | Address | City/State/Zipcode | Phone Number | | Organization | | | | + + + + + | [facility] | [address] | [place] [address] | [phone] | + + + + + Magnesium (10/15/2019 5:13 AM PDT) + + + + + + | Component | Value | Ref Range | Performed | Pathologist | | | | | At | Signature | + + + + + + | Magnesium | 1.9Comment: Testing | 1.7 - 2.4 mg/dL | [facility] | | | | performed at [facility];[address] | | LABORATORY | | | | [address];[place] | | | | | | [address] | | | | + + + + + + + + | Specimen | + + | Blood | + + + + + + + | Performing | Address | City/State/Zipcode | Phone Number | | Organization | | | | + + + + + | [facility] | [address] | [place] [address] | [phone] | + + + + + Basic [...] | | | | | performed at [facility], [address] | | | | | | [address], | | | | | | [place] [address] | | | | + + + + + + + + | Specimen | + + | Blood | + + + + + + + | Performing | Address | City/State/Zipcode | Phone Number | | Organization | | | | + + + + + | [facility] | [address] | [place] [address] | [phone] | + + + + + Potassium (10/14/2019 3:28 PM PDT) + + + + + + | Component | Value | Ref Range | Performed | Pathologist | | | | | At | Signature | + + + + + + | K | 3.3 (L)Comment: Testing | 3.5 - 4.9 | [facility] | | | | performed at [facility];[address] | mmol/L | LABORATORY | | | | [address];[place], [place] | | | | | | [address] | | | | + + + + + + + + | Specimen | + + | Blood | + + + + + + + | Performing | Address | City/State/Zipcode | Phone Number | | Organization | | | | + + + + + | [facility] | [address] | [place] [address] | [phone] | + + + + + Magnesium [...] | LABORATORY | | | [address];[place], [place] | | | | | | [address] | | | | + + + + + + + + | Specimen | + + | Blood | + + + + + + + | Performing | Address | City/State/Zipcode | Phone Number | | Organization | | | | + + + + + | [facility] | [address] | [place] [address] | [phone] | + + + + + Phosphorus (10/14/2019 3:28 PM PDT) + + + + + + | Component | Value | Ref Range | Performed | Pathologist | | | | | At | Signature | + + + + + + | Phosphorus | 1.3 (L)Comment: Testing | 2.3 - 4.8 mg/dL | [facility] | | | | performed at [facility];[address] | | LABORATORY | | | | [address];[place], [place] | | | | | | [address] | | | | + + + + + + + + | Specimen | + + | Blood | + + + + + + + | Performing | Address | City/State/Zipcode | Phone Number | | Organization | | | | + + + + + | [facility] | [address] | [place] [address] | [phone] | + + + + + CBC [...] LABORATORY | | | | performed at [facility], [address] | | | | | [address], | | | | | | [place] [address] | | | | + + + + + + + + | Specimen | + + | Blood | + + + + + + + | Performing | Address | City/State/Zipcode | Phone Number | | Organization | | | | + + + + + | [facility] | [address] | [place] [address] | [phone] | + + + + + Magnesium [...] LABORATORY | | | | [address];[place] | | | | | | [address] | | | | + + + + + + + + | Specimen | + + | Blood | + + + + + + + | Performing | Address | City/State/Zipcode | Phone Number | | Organization | | | | + + + + + | [facility] | [address] | [place] [address] | [phone] | + + + + + Basic [...] 7.6 (L) | 8.5 - 10.5 | KR [...] | | | | | performed at [facility], [address] | | | | | | [facility], | | | | | | [place] [address] | | | | + + + + + + + + | Specimen | + + | Blood | + + + + + + + | Performing | Address | City/State/Zipcode | Phone Number | | Organization | | | | + + + + + | [facility] | [address] | [place] [address] | [phone] | + + + + + Potassium (10/13/2019 11:07 AM PDT) + + + + + + | Component | Value | Ref Range | Performed | Pathologist | | | | | At | Signature | + + + + + + | K | 3.5Comment: Testing | 3.5 - 4.9 | [facility] | | | | performed at [facility];[address] | mmol/L | LABORATORY | | | | [address];[place], [place] | | | | | | [address] | | | | + + + + + + + + | Specimen | + + | Blood | + + + + + + + | Performing | Address | City/State/Zipcode | Phone Number | | Organization | | | | + + + + + | [facility] | [address] | [place] [address] | [phone] | + + + + + Potassium [...] | LABORATORY | | | | [address];[place], [place] | | | | | | [address] | | | | + + + + + + + + | Specimen | + + | Blood | + + + + + + + | Performing | Address | City/State/Zipcode | Phone Number | | Organization | | | | + + + + + | [facility] | [address] | [place] [address] | [phone] | + + + + + Magnesium (10/13/2019 4:37 AM PDT) + + + + + + | Component | Value | Ref Range | Performed | Pathologist | | | | | At | Signature | + + + + + + | Magnesium | 1.7Comment: Testing | 1.7 - 2.4 mg/dL | [facility] | | | | performed at [facility];[address] | | LABORATORY | | | | [address];[place] | | | | | | [address] | | | | + + + + + + + + | Specimen | + + | Blood | + + + + + + + | Performing | Address | City/State/Zipcode | Phone Number | | Organization | | | | + + + + + | [facility] | [address] | [place] [address] | [phone] | + + + + + Basic [...] 7.3 (L) | 8.5 - 10.5 | [facility] | | | | | mg/dL | LABORATORY | | + + + + + + | Estimated | >60Comment: GFR <60: | >60 | [facility] | | | GFR | CHRONIC [...] performed at [facility] | | | | | | [facility];[place], [place] | | | | | | [address] | | | | + + + + + + + + | Specimen | + + | Blood | + + + + + + + | Performing | Address | City/State/Zipcode | Phone Number | | Organization | | | | + + + + + | [facility] | [address] | [place] [address] | [phone] | + + + + + Hemoglobin [...] Testing | 39.0 - 50.0 % | [facility] | | | | performed at [facility];[address] | | LABORATORY | | | | [address];[place] | | | | | | [address] | | | | + + + + + + + + | Specimen | + + | Blood | + + + + + + + | Performing | Address | City/State/Zipcode | Phone Number | | Organization | | | | + + + + + | [facility] | [address] | [place] [address] | [phone] | + + + + + Potassium [...] | LABORATORY | | | | [address];[place], [place] | | | | | | [address] | | | | + + + + + + + + | Specimen | + + | Blood | + + + + + + + | Performing | Address | City/State/Zipcode | Phone Number | | Organization | | | | + + + + + | [facility] | [address] | [place] [address] | [phone] | + + + + + Clostridium [...] | | [facility];[address] [place] [address] | | | | | | Bl;[place] [address] | | | | + + + + + + + + | Specimen | + + | Stool - Stool | | specimen (specimen) | + + + + + + + | Performing | Address | City/State/Zipcode | Phone Number | | Organization | | | | + + + + + | [facility] | [address] | [place] [address] | [phone] | + + + + + Potassium (10/12/2019 11:02 AM PDT) + + + + + + | Component | Value | Ref Range | Performed | Pathologist | | | | | At | Signature | + + + + + + | K | 3.3 (L)Comment: Testing | 3.5 - 4.9 | [facility] | | | | performed at [facility];[address] | mmol/L | LABORATORY | | | | [address];[place] | | | | | | [address] | | | | + + + + + + + + | Specimen | + + | Blood | + + + + + + + | Performing | Address | City/State/Zipcode | Phone Number | | Organization | | | | + + + + + | [facility] [facility] | [address] | [place] [address] | [phone] | + + + + + Type [...] + + + | BB BAND | [id number] | | [facility] | | | | | | LABORATORY | | + + + + + + | UNIT # | [id number] | | [facility] | | | | [...] | LABORATORY | | | | [address];[place], [place] | | | | | | [address] | | | | + + + + + + | UNIT # | [id number] | | [facility] | | | | [...] | + + + + + | [facility] | [address] | [place] [address] | [phone] | + + + + + Red [...] COMMENT | [facility];[address] | | LABORATORY | | | | Blvd;[place] [address] | | | | + + + + + + + + | Specimen | + + | | + + + + + + + | Performing | Address | City/State/Zipcode | Phone Number | | Organization | | | | + + + + + | [facility] | [address] | [place] [address] | [phone] | + + + + + Magnesium [...] LABORATORY | | | | [address];[place] | | | | | | [address] | | | | + + + + + + + + | Specimen | + + | Blood | + + + + + + + | Performing | Address | City/State/Zipcode | Phone Number | | Organization | | | | + + + + + | [facility] | [address] | [place] [address] | [phone] | + + + + + Comprehensive [...] CITY;[address] | | | | | | [address];[place] | | | | | | [address] | | | | + + + + + + + + | Specimen | + + | Blood | + + + + + + + | Performing | Address | City/State/Zipcode | Phone Number | | Organization | | | | + + + + + | [facility] | [address] | [place] [address] | [phone] | + + + + + CBC [...] | | | | NURSING TONJA MORRIS H | g/dL | LABORATORY | | [...] | [facility] | | | | NURSING [id number] AJ | | LABORATORY | | | [...] [facility];8 | | | | | | [address];[place] | | | | | | [address] | | | | + + + + + + + + | Specimen | + + | Blood | + + + + + + + | Performing | Address | City/State/Zipcode | Phone Number | | Organization | | | | + + + + + | [facility] | [address] | [place] [address] | [phone] | + + + + + Urinalysis [...] - 1.030 | [facility] | | | [place], | | | LABORATORY | | | [...] [place] | | | | | | [address] | | | | + + + [...] | + + + + + | [facility] | [address] | [place] [address] | [phone] | + + + + + Osmolality, Urine (10/11/2019 11:16 AM PDT) + + + + + + | Component | Value | Ref Range | Performed | Pathologist | | | | | At | Signature | + + + + + + | OSMO URINE | 239Comment: Testing | 50 - 1,200 | [facility] | | | | performed at [facility], [address] | mOsm/kg | LABORATORY | | | | [address], | | | | | | [place] [address] | | | | + + + [...] | + + + + + | [facility] | [address] | [place] [address] | [phone] | + + + + + Culture, [...] | | LABORATORY | | | | Blvd;[place] [address] | | | | + + + + + + | RESULT | NO GROWTH 6 DAYS | | [facility] | | | | | | LABORATORY | | + + + + + + | RESULT | Testing performed at | | [facility] | | | | [facility], [address] | | LABORATORY | | | | [place], [place] | | | | | | [address]Igrgqic: Testing | | | | | | performed at [facility], [address] | | | | | | [address], [place], [place] | | | | | | [address] | | | | + + + + + + + + | Specimen | + + | Blood - Swab of line | | insertion site | | (specimen) | + + + + + + + | Performing | Address | City/State/Zipcode | Phone Number | | Organization | | | | + + + + + | [facility] | [address] | [place] [address] | [phone] | + + + + + XR [...] Procedure Note | + + | Espinoza, [id number] - 10/11/2019 10:42 AM PDT | | [...] | | Final Report Signed by: Jacky eMrcado John | | Sign Date/Time: 10/11/2019 10:39 [...] Requests | [facility];[address] | | LABORATORY | | | | Blvd;[place] [address] | | | | + + + + + + | RESULT | NO GROWTH 6 DAYS | | [facility] | | | | | | LABORATORY | | + + + + + + | RESULT | Testing performed at | | [facility] | | | | [facility], [address] | | LABORATORY | | | | [place], [place] | | | | | | [address]Zacykpn: Testing | | | | | | performed at [facility], [address] | | | | | | [address], [place], [place] | | | | | | [address] | | | | + + + + + + + + | Specimen | + + | Blood - Peripheral | | blood specimen | | (specimen) | + + + + + + + | Performing | Address | City/State/Zipcode | Phone Number | | Organization | | | | + + + + + | [facility] | [address] | [place] [address] | [phone] | + + + + + Sodium [...] | LABORATORY | | | | [address];[place] | | | | | | [address] | | | | + + + + + + + + | Specimen | + + | Blood | + + + + + + + | Performing | Address | City/State/Zipcode | Phone Number | | Organization | | | | + + + + + | [facility] | [address] | [place] [address] | [phone] | + + + + + Osmolality, Serum (10/11/2019 9:30 AM PDT) + + + + + + | Component | Value | Ref Range | Performed | Pathologist | | | | | At | Signature | + + + + + + | Osmolality, | 262 (L)Comment: Testing | 280 - 301 | [facility] | | | Serum | performed at [facility], [address] | mOsm/kg | LABORATORY | | | | [address], | | | | | | [place] [address] | | | | + + + + + + + + | Specimen | + + | Blood | + + + + + + + | Performing | Address | City/State/Zipcode | Phone Number | | Organization | | | | + + + + + | [facility] | [address] | [place] [address] | [phone] | + + + + + Comprehensive [...] 34 | 10 - 65 U/L | [facility] | | | | | | LABORATORY | | + + + + + + | Estimated | >60Comment: GFR <60: | >60 | [facility] | | | GFR | CHRONIC [...] | | | | | | [facility];[place], [place] | | | | | | [address] | | | | + + + + + + + + | Specimen | + + | Blood | + + + + + + + | Performing | Address | City/State/Zipcode | Phone Number | | Organization | | | | + + + + + | [facility] | [address] | [place] [address] | [phone] | + + + + + CBC [...] | 10.1Comment: NO NORMAL | fl | JUAN M | | | | RANGE ESTABLISHEDTesting | | LABORATORY | | | | performed at [facility];[address] | | | | | | [address];[place] | | | | | | [address] | | | | + + + + + + + + | Specimen | + + | Blood | + + + + + + + | Performing | Address | City/State/Zipcode | Phone Number | | Organization | | | | + + + + + | [facility] | [address] | [place] [address] | [phone] | + + + + + Comprehensive [...] | | | | | | [facility];[place], [place] | | | | | | [address] | | | | + + + + + + + + | Specimen | + + | Blood | + + + + + + + | Performing | Address | City/State/Zipcode | Phone Number | | Organization | | | | + + + + + | [facility] | [address] | [place] [address] | [phone] | + + + + + Magnesium (10/10/2019 4:16 AM PDT) + + + + + + | Component | Value | Ref Range | Performed | Pathologist | | | | | At | Signature | + + + + + + | Magnesium | 1.8Comment: Testing | 1.7 - 2.4 mg/dL | [facility] | | | | performed at [facility];[address] | | LABORATORY | | | | [address];[place] | | | | | | [address] | | | | + + + + + + + + | Specimen | + + | Blood | + + + + + + + | Performing | Address | City/State/Zipcode | Phone Number | | Organization | | | | + + + + + | [facility] | [address] | [place] [address] | [phone] | + + + + + CBC [...] | LABORATORY | | | | [address];[place], [place] | | | | | | [address] | | | | + + + + + + + + | Specimen | + + | Blood | + + + + + + + | Performing | Address | City/State/Zipcode | Phone Number | | Organization | | | | + + + + + | [facility] | [address] | [place] [address] | [phone] | + + + + + Lactic [...] | LABORATORY | | | | [address];[place], [place] | | | | | | [address] | | | | + + + + + + + + | Specimen | + + | Blood | + + + + + + + | Performing | Address | City/State/Zipcode | Phone Number | | Organization | | | | + + + + + | [facility] | [address] | [place] [address] | [phone] | + + + + + Comprehensive [...] CITY;[address] | | | | | | [address];[place], [place] | | | | | | [address] | | | | + + + + + + + + | Specimen | + + | Blood | + + + + + + + | Performing | Address | City/State/Zipcode | Phone Number | | Organization | | | | + + + + + | [facility] | [address] [facility] | [place] [address] | [phone] | + + + + + Procalcitonin [...] | at [facility];[address] [place] [address] | | | | | | [facility];[place] [address] | | | | + + + + + + + + | Specimen | + + | Blood | + + + + + + + | Performing | Address | City/State/Zipcode | Phone Number | | Organization | | | | + + + + + | [facility] | [address] | [place] [address] | [phone] | + + + + + Phosphorus (10/09/2019 5:10 AM PDT) + + + + + + | Component | Value | Ref Range | Performed | Pathologist | | | | | At | Signature | + + + + + + | Phosphorus | 4.0Comment: Testing | 2.3 - 4.8 mg/dL | [facility] | | | | performed at [facility];[address] | | LABORATORY | | | | [address];[place] | | | | | | [address] | | | | + + + + + + + + | Specimen | + + | Blood | + + + + + + + | Performing | Address | City/State/Zipcode | Phone Number | | Organization | | | | + + + + + | [facility] | [address] | [place] [address] | [phone] | + + + + + Magnesium (10/09/2019 5:10 AM PDT) + + + + + + | Component | Value | Ref Range | Performed | Pathologist | | | | | At | Signature | + + + + + + | Magnesium | 1.7Comment: Testing | 1.7 - 2.4 mg/dL | [facility] | | | | performed at [facility];[address] | | LABORATORY | | | | [address];[place] | | | | | | [address] | | | | + + + + + + + + | Specimen | + + | Blood | + + + + + + + | Performing | Address | City/State/Zipcode | Phone Number | | Organization | | | | + + + + + | [facility] | [address] | [place] [address] | [phone] | + + + + + CBC [...] CITY;[address] | | | | | | [address];[place] | | | | | | [address] | | | | + + + + + + + + | Specimen | + + | Blood | + + + + + + + | Performing | Address | City/State/Zipcode | Phone Number | | Organization | | | | + + + + + | [facility] | [address] | [place] [address] | [phone] | + + + + + POC Glucose (10/09/2019 12:47 AM PDT) + + + + + + | Component | Value | Ref Range | Performed | Pathologist | | | | | At | Signature | + + + + + + | Glucose, | 128 (H)Comment: Testing | 65 - 99 mg/dL | [facility] | | | POC | performed at [facility];[address] | | LABORATORY | | | | [address];[place] | | | | | | [address] | | | | + + + + + + + + | Specimen | + + | | + + + + + + + | Performing | Address | City/State/Zipcode | Phone Number | | Organization | | | | + + + + + | [facility] | [address] | [place] [address] | [phone] | + + + + + Phosphorus (10/08/2019 5:23 PM PDT) + + + + + + | Component | Value | Ref Range | Performed | Pathologist | | | | | At | Signature | + + + + + + | Phosphorus | 3.4Comment: Testing | 2.3 - 4.8 mg/dL | [facility] | | | | performed at [facility];[address] | | LABORATORY | | | | [address];[place], [place] | | | | | | [address] | | | | + + + + + + + + | Specimen | + + | Blood | + + + + + + + | Performing | Address | City/State/Zipcode | Phone Number | | Organization | | | | + + + + + | [facility] | [address] | [place] [address] | [phone] | + + + + + Magnesium [...] | LABORATORY | | | | [facility];[place], [place] | | | | | | [address] | | | | + + + + + + + + | Specimen | + + | Blood | + + + + + + + | Performing | Address | City/State/Zipcode | Phone Number | | Organization | | | | + + + + + | [facility] | [address] | [place] [address] | [phone] | + + + + + CBC [...] | | [facility];[address] [place] [address] | | | | | | [facility];[place] [address] | | | | + + + + + + + + | Specimen | + + | Blood | + + + + + + + | Performing | Address | City/State/Zipcode | Phone Number | | Organization | | | | + + + + + | [facility] | [address] | [place] [address] | [phone] | + + + + + Basic [...] 6.3 (L) | 8.5 - 10.5 | [facility] | | | | | mg/dL | LABORATORY | | + + + + + + | Estimated | >60Comment: GFR <60: | >60 | [facility] | | | GFR | CHRONIC [...] | | | | | | MDRD IDTN traceable | | | | | | equation.Testing | | | | | | performed at [facility] | | | | | | [facility];[place], [place] | | | | | | [address] | | | | + + + + + + + + | Specimen | + + | Blood | + + + + + + + | Performing | Address | City/State/Zipcode | Phone Number | | Organization | | | | + + + + + | [facility] | [address] | [place] [address] | [phone] | + + + + + PTT [...] | LABORATORY | | | | [address];[place], [place] | | | | | | [address] | | | | + + + + + + + + | Specimen | + + | Blood | + + + + + + + | Performing | Address | City/State/Zipcode | Phone Number | | Organization | | | | + + + + + | [facility] | [address] | [place] [address] | [phone] | + + + + + POC CSOTT BRADLEY8, Arterial (10/08/2019 2:04 PM PDT) + + [...] g/dL | LABORATORY | | | | [address];[place], [place] | | | | | | [address] | | | | + + + + + + + + | Specimen | + + | | + + + + + + + | Performing | Address | City/State/Zipcode | Phone Number | | Organization | | | | + + + + + | [facility] | [address] | [place] [address] | [phone] | + + + + + POC [...] | LABORATORY | | | | [address];[place], [place] | | | | | | [address] | | | | + + + + + + + + | Specimen | + + | | + + + + + + + | Performing | Address | City/State/Zipcode | Phone Number | | Organization | | | | + + + + + | [facility] | [address] | [place] [address] | [phone] | + + + + + Basic [...] 7.2 (L) | 8.5 - 10.5 | [facility] | | | | | mg/dL | LABORATORY | | + + + + + + | Estimated | >60Comment: GFR <60: | >60 | [facility] | | | GFR | CHRONIC [...] | | | | | | MDRD IDTN traceable | | | | | | equation.Testing | | | | | | performed at [facility], [address] | | | | | | [facility], | | | | | | [place] [address] | | | | + + + + + + + + | Specimen | + + | Blood | + + + + + + + | Performing | Address | City/State/Zipcode | Phone Number | | Organization | | | | + + + + + | [facility] | [address] | [place] [address] | [phone] | + + + + + CBC with Differential (10/08/2019 5:44 AM PDT) + + + + + + | Component | Value | Ref Range | Performed | Pathologist | | | | | At | Signature | + + + + + + | WBC | 17.81 (H) | 3.80 - 11.00 | [facility] | | | | | K/uL | [...] 0.08Comment: Testing | 0.00 - 0.10 | [facility] | | | Absolute | performed at [facility], [address] | K/uL | LABORATORY | | | | [address], | | | | | | [place] [address] | | | | + + + + + + + + | Specimen | + + | Blood | + + + + + + + | Performing | Address | City/State/Zipcode | Phone Number | | Organization | | | | + + + + + | [facility] | [address] | [place] [address] | [phone] | + + + + + Magnesium [...] | LABORATORY | | | | [address] [facility];[place], [place] | | | | | | [address] | | | | + + + + + + + + | Specimen | + + | Blood | + + + + + + + | Performing | Address | City/State/Zipcode | Phone Number | | Organization | | | | + + + + + | [facility] | [address] | [place] [address] | [phone] | + + + + + PTT (10/07/2019 5:21 PM PDT) + + + + + + | Component | Value | Ref Range | Performed | Pathologist | | | | | At | Signature | + + + + + + | PTT | 28Comment: Testing | 23 - 32 seconds | [facility] | | | | performed at [facility];[address] | | LABORATORY | | | | [address];[place], [place] | | | | | | [address] | | | | + + + + + + + + | Specimen | + + | Blood - Artery, | | Radial, Right | + + + + + + + | Performing | Address | City/State/Zipcode | Phone Number | | Organization | | | | + + + + + | [facility] | [address] | [place] [address] | [phone] | + + + + + Protime [...] performed at [facility] | | | | | | [address];[place], [place] | | | | | | [address] | | | | + + + + + + + + | Specimen | + + | Blood - Artery, | | Radial, Right | + + + + + + + | Performing | Address | City/State/Zipcode | Phone Number | | Organization | | | | + + + + + | [facility] | [address] | [place] [address] | [phone] | + + + + + Basic [...] | >60Comment: GFR <60: | >60 | [facility] | | | GFR | CHRONIC [...] | | | | | | MDRD [facility] traceable | | | | | | equation.Testing | | | | | | performed at [facility];[address] | | | | | | [facility];[place], [place] | | | | | | [address] | | | | + + + + + + + + | Specimen | + + | Blood - Artery, | | Radial, Right | + + + + + + + | Performing | Address | City/State/Zipcode | Phone Number | | Organization | | | | + + + + + | [facility] | [address] | [place] [address] | [phone] | + + + + + CBC [...] CITY;[address] | | | | | | [address];[place] | | | | | | [address] | | | | + + + + + + + + | Specimen | + + | Blood - Right upper | | arm structure (body | | structure) | + + + + + + + | Performing | Address | City/State/Zipcode | Phone Number | | Organization | | | | + + + + + | [facility] | [address] | [place] [address] | [phone] | + + + + + Surgical [...] | including foreign body giant cell reaction. AMB:[facility]:C2NR MICROSCOPIC | | | EXAMINATION:Histologic sections of [...] attached red-white | | | fibromembranous tissue. Thinner Sprayer sections are submitted in | | | [...] | LABORATORY:The technical component was performed by [employer] | | | [employer], [address] [place] [address] (Athletics Teacher: | | | Asia Rodriguez MD; CLIA# [id number]).Professional interpretation was | | | performed by [employer], [facility], [address] | | | [place] [address] (Athletics Teacher: Solitario | | | Jacky Recio; CLIA#: [id number]). Diagnostician: Asia Rodriguez | | | MDPathologistElectronically Signed 10/10/2019 | | | | | |PERFORMING LABORATORY: | | |The technical component was performed by [employer], [address] [place] [address] (Athletics Teacher: Asia Rodriguez MD; CLIA# [id number]). | | |Professional interpretation was performed by [facility], [address] [place] [address] (Athletics Teacher: Solitario Recio M.D.; CLIA#: [id number]). | | | | | |Diagnostician: Asia [...] | LABORATORY | | | | [address];[place] | | | | | | [address] | | | | + + + + + + + + | Specimen | + + | | + + + + + + + | Performing | Address | City/State/Zipcode | Phone Number | | Organization | | | | + + + + + | [facility] | [address] | [place] [address] | [phone] | + + + + + Red [...] | KT | | | COMMENT | [facility];[address] [facility] | | LABORATORY | | | | Blvd;[place] [address] | | | | + + + + + + + + | Specimen | + + | | + + + + + + + | Performing | Address | City/State/Zipcode | Phone Number | | Organization | | | | + + + + + | [facility] | [address] | [place] [address] | [phone] | + + + + + POC ISTAT, CG8, Arterial (10/07/2019 12:37 PM PDT) + + + + + + | Component | Value | Ref Range | Performed | Pathologist | | | | | At | Signature | + + + + + + | pH, | 7.326 (L) | 7.350 - 7.450 | [facility] | | | Arterial, | | [...] | LABORATORY | | | | [address];[place] | | | | | | [address] | | | | + + + + + + + + | Specimen | + + | | + + + + + + + | Performing | Address | City/State/Zipcode | Phone Number | | Organization | | | | + + + + + | [facility] | [address] | [place] [address] | [phone] | + + + + + POC [...] (L)Comment: Testing | 13.7 - 16.7 | [facility] | | | POC | performed at [facility];[address] | g/dL | LABORATORY | | | | [address];[place] | | | | | | [address] | | | | + + + + + + + + | Specimen | + + | | + + + + + + + | Performing | Address | City/State/Zipcode | Phone Number | | Organization | | | | + + + + + | [facility] | [address] | [place] [address] | [phone] | + + + + + POC [...] | LABORATORY | | | | [address];[place], [place] | | | | | | [address] | | | | + + + + + + + + | Specimen | + + | | + + + + + + + | Performing | Address | City/State/Zipcode | Phone Number | | Organization | | | | + + + + + | [facility] | [address] | [place] [address] | [phone] | + + + + + Red [...] | ORDER RECEIVED IN BLOOD | | [facility] | | | COMMENT | BANK. | | LABORATORY | | + + + + + + | BLOOD BANK | Testing performed at | | [facility] | | | COMMENT | [facility];[address] [facility] | | LABORATORY | | | | [address];[place] [address] | | | | + + + + + + + + | Specimen | + + | | + + + + + + + | Performing | Address | City/State/Zipcode | Phone Number | | Organization | | | | + + + + + | [facility] | [address] | [place] [address] | [phone] | + + + + + Magnesium (10/07/2019 3:55 AM PDT) + + + + + + | Component | Value | Ref Range | Performed | Pathologist | | | | | At | Signature | + + + + + + | Magnesium | 1.6 (L)Comment: Testing | 1.7 - 2.4 mg/dL | [facility] | | | | performed at [facility];[address] | | LABORATORY | | | | [address];[place], [place] | | | | | | [address] | | | | + + + + + + + + | Specimen | + + | Blood | + + + + + + + | Performing | Address | City/State/Zipcode | Phone Number | | Organization | | | | + + + + + | [facility] | [address] | [place] [address] | [phone] | + + + + + Type [...] + + + | BB BAND | BATTERY INSPECTOR 0630 | | [facility] | | | | | | LABORATORY | | + + + + + + | UNIT # | [id number] | | [facility] | | | | [...] + + + | UNIT # | [id number] | | [facility] | | | | [...] + + + | UNIT # | [id number] | | [facility] | | | | [...] + + + | UNIT # | [id number] | | [facility] | | | | [...] performed at [facility] | | LABORATORY | | | | [address];[place], [place] | | | | | | [address] | | | | + + + + + + + + | Specimen | + + | Blood | + + + + + + + | Performing | Address | City/State/Zipcode | Phone Number | | Organization | | | | + + + + + | [facility] | [address] | [place] [address] | [phone] | + + + + + Basic [...] | | | | | | [facility];[place], [place] | | | | | | [address] | | | | + + + + + + + + | Specimen | + + | Blood | + + + + + + + | Performing | Address | City/State/Zipcode | Phone Number | | Organization | | | | + + + + + | [facility] | [address] | [place] [address] | [phone] | + + + + + CBC [...] | LABORATORY | | | | [address];[place] | | | | | | [address] | | | | + + + + + + + + | Specimen | + + | Blood | + + + + + + + | Performing | Address | City/State/Zipcode | Phone Number | | Organization | | | | + + + + + | [facility] | [address] | [place] [address] | [phone] | + + + + + Magnesium (10/06/2019 6:27 AM PDT) + + + + + + | Component | Value | Ref Range | Performed | Pathologist | | | | | At | Signature | + + + + + + | Magnesium | 1.6 (L)Comment: Testing | 1.7 - 2.4 mg/dL | [facility] | | | | performed at [facility];[address] | | LABORATORY | | | | [address];[place] | | | | | | [address] | | | | + + + + + + + + | Specimen | + + | Blood | + + + + + + + | Performing | Address | City/State/Zipcode | Phone Number | | Organization | | | | + + + + + | [facility] | [address] | [place] [address] | [phone] | + + + + + Basic [...] | | | | | performed at [facility] [facility], [address] | | | | | | Albina Alexandremeenakshi, | | | | | | [place] [address] | | | | + + + + + + + + | Specimen | + + | Blood | + + + + + + + | Performing | Address | City/State/Zipcode | Phone Number | | Organization | | | | + + + + + | [facility] | [address] | [place] [address] | [phone] | + + + + + CBC [...] | | | Absolute | performed at [facility], [address] | K/uL | LABORATORY | | | | Albina Mata, | | | | | | [place] [address] | | | | + + + + + + + + | Specimen | + + | Blood | + + + + + + + | Performing | Address | City/State/Zipcode | Phone Number | | Organization | | | | + + + + + | [facility] | [address] | [place] [address] | [phone] | + + + + + Magnesium [...] | LABORATORY | | | | Quinn [place] | | | | | | [address] | | | | + + + + + + + + | Specimen | + + | Blood | + + + + + + + | Performing | Address | City/State/Zipcode | Phone Number | | Organization | | | | + + + + + | [facility] | [address] | [place] [address] | [phone] | + + + + + Basic [...] | | | | | performed at [facility], [address] | | | | | | Albina Adolfo, | | | | | | [place] [address] | | | | + + + + + + + + | Specimen | + + | Blood | + + + + + + + | Performing | Address | City/State/Zipcode | Phone Number | | Organization | | | | + + + + + | [facility] | [address] | [place] [address] | [phone] | + + + + + CBC [...] | | | Absolute | performed at [facility], [address] | K/uL | LABORATORY | | | | Albina Mata, | | | | | | [place] [address] | | | | + + + + + + + + | Specimen | + + | Blood | + + + + + + + | Performing | Address | City/State/Zipcode | Phone Number | | Organization | | | | + + + + + | [facility] | [address] | [place] [address] | [phone] | + + + + + ECHO [...] | Procedure Note | + + | [facility], [id number] - 10/04/2019 12:10 PM PDT | | [...] + + | Performing | Address | City/State/[facility] | Phone Number | | Organization | [...] LABORATORY | | | | Quinn Mata;[place] | | | | | | [address] | | | | + + + + + + + + | Specimen | + + | Tissue - Both | | anterior nares (body | | structure) | + + + + + + + | Performing | Address | City/State/Zipcode | Phone Number | | Organization | | | | + + + + + | [facility] | [address] | [place] [address] | [phone] | + + + + + Zeinabime [...] performed at [facility] | | | | | | [address];[place], [place] | | | | | | [address] | | | | + + + + + + + + | Specimen | + + | Blood | + + + + + + + | Performing | Address | City/State/Zipcode | Phone Number | | Organization | | | | + + + + + | [facility] | [address] | [place] [address] | [phone] | + + + + + Uric Acid (10/04/2019 4:26 AM PDT) + + + + + + | Component | Value | Ref Range | Performed | Pathologist | | | | | At | Signature | + + + + + + | Uric Acid | 3.2Comment: Testing | 3.2 - 8.6 mg/dL | [facility] | | | | performed at [facility], [address] | | LABORATORY | | | | [place] Mata, | | | | | | [place] [address] | | | | + + + + + + + + | Specimen | + + | Blood | + + + + + + + | Performing | Address | City/State/Zipcode | Phone Number | | Organization | | | | + + + + + | [facility] | [address] | [place] [address] | [phone] | + + + + + Lipid [...] | | | Calculated | performed at [facility], [address] | | LABORATORY | | | | Alb[place] Mata, | | | | | | [place] [address] | | | | + + + + + + + + | Specimen | + + | Blood | + + + + + + + | Performing | Address | City/State/Zipcode | Phone Number | | Organization | | | | + + + + + | [facility] | [address] | [place] [address] | [phone] | + + + + + Comprehensive [...] | | | | | performed at [facility], [address] | | | | | | [facility], | | | | | | [place] [address] | | | | + + + + + + + + | Specimen | + + | Blood | + + + + + + + | Performing | Address | City/State/Zipcode | Phone Number | | Organization | | | | + + + + + | [facility] | [address] | [place] [address] | [phone] | + + + + + CBC [...] 0.08Comment: Testing | 0.00 - 0.10 | [facility] | | | Absolute | performed at [facility], [address] | K/uL | LABORATORY | | | | Alb[place] Mata, | | | | | | [place] [address] | | | | + + + + + + + + | Specimen | + + | Blood | + + + + + + + | Performing | Address | City/State/Zipcode | Phone Number | | Organization | | | | + + + + + | [facility] | [address] | [place] [address] | [phone] | + + + + + Coronavirus [...] CITY;[address] | | | | | | [address] [place] | | | | | | [address] | | | | + + + + + + + + | Specimen | + + | Tissue - Entire | | nasopharynx (body | | structure) | + + + + + + + | Performing | Address | City/State/Zipcode | Phone Number | | Organization | | | | + + + + + | [facility] | [address] | [place] [address] | [phone] | + + + + + ECG [...] | | | | XIANG HART MD ([id number]) | | | | | | on [...] | [facility] | | | | [facility] | | LABORATORY | | | | [address];[place] [address] | | | | + + + + + + + + | Specimen | + + | Blood | + + + + + + + | Performing | Address | City/State/Zipcode | Phone Number | | Organization | | | | + + + + + | [facility] | [address] | [place] [address] | [phone] | + + + + + Comprehensive Metabolic Panel (10/03/2019 10:41 PM PDT) + + + + + + | Component | Value | Ref Range | Performed | Pathologist | | | | | At | Signature | + + + + + + | Na | 132 (L) | 135 - 145 | KR | | | | | mmol/L | [...] | >60Comment: GFR <60: | >60 | [facility] | | | GFR | CHRONIC [...] | | | | | | [facility]D [facility] traceable | | | | | | equation.Testing | | | | | | performed at [facility];[address] | | | | | | [address];[place], [place] | | | | | | [address] | | | | + + + + + + + + | Specimen | + + | Blood | + + + + + + + | Performing | Address | City/State/Zipcode | Phone Number | | Organization | | | | + + + + + | [facility] | [address] | [place] [address] | [phone] | + + + + + CBC [...] LABORATORY | | | | [place] [address] | | | | | | [address] | | | | + + + + + + + + | Specimen | + + | Blood | + + + + + + + | Performing | Address | City/State/Zipcode | Phone Number | | Organization | | | | + + + + + | [facility] | [address] | [place] [address] | [phone] | + + + + + documented [...] +--------+ +--------+------+------+ +-------+ +--------+---+---+ | Given | 08/12/20 | 650 mg | | | | [...] < 50, Starting Sun | | | 8/9/20 at 1431, Give over 2 min. | [...] | | | | | | Starting [facility] 10/12/19 at 1744 | | [...]
--- OUTSIDE RECORDS SUMMARY | ~2019-11-02 | XMS | Encounter Summary ---
Demographics + + + | Address | [address] | | | [place] [address] | + + + | Home Phone | | + + + | Preferred Language | Unknown | + + + | Marital Status | Single | + + + | Temple Affiliation | BAP | + + + | Race | White | + + + | Ethnic Group | Not or | + + + Author + + + | Author | Replaced By [facility] | + + + | Organization | Replaced By [facility] | + + + | Address | Unknown | + + + | Phone | Unavailable | + + + Support + + +---------+ + | Name | Relationship | Address | Phone | + + +---------+ + | Lele Conley | ECON | Unknown | | + + +---------+ + Care Team Providers + +------+ + | Care Blood Or Blood Bank Technician Name | Role | Phone | [...] | | | | Physicians [place]n, | [place], [place] | | | | | [address] [place] [address] | [address] | | | | | [place], [place] | [phone] | | | | | [address] | | | | | | [phone] | | | +--------+ + + + [...] this encounter Miscellaneous Notes Telephone Encounter - Laura Lucas Ma - 05/26/2007 10:25 AM PDTPer Jairo Asencio was given Vicoden 5/500, quantity of 50 with no refills. Directions to take 1 tablet by mouth every 4-6 hours as needed for pain. I let Jairo know this was called to his [facility] in [place] at [phone]. 10 :25 AM PDTTelephone Encounter - Nicolas [...]
--- OUTSIDE RECORDS SUMMARY | ~2019-11-02 | XMS | Encounter Summary ---
Demographics + + + | Address | [address] | | | [place] [address] | + + + | Home Phone [...] Author + + + | Author | [facility] | | | and [place] | + + + | Organization | [facility] | | | [...] Team Providers + +------+ + | Care Dental Amalgam Processor Name | Role | Phone | + +------+ + | Teresita Bob MD | PCP | | + +------+ + Reason for Visit + +--------+ + | Reason | Onset | Comments | | | Date | | + +--------+ + | Follow-up | 10/16/ | | | | 2020 | | + +--------+ + Encounter Details +--------+ + + + + | Date | Type | Department | Care Team | Description | +--------+ + + + + | 10/16/ Telephone | [facility] | Rachel Juarez, | Follow-up | | 2019 | | VASCULAR SURGERY | RN | | | | | [address] | | | | | | [place] | | | | | | [address] | | | | | | [phone] | | | +--------+ + + + [...] this encounter Miscellaneous Notes Telephone Encounter - Justinjeanne Iveth Desmond - [facility]20[facility]2019 2[facility] and would like a call back. Additional Call Details: Caller stated they are needing an earlier in the day appointment due to transportation. elephone Rachel Lamas RN - 10/17/2019 2:38 PM PDTFollow up call made to patient. Unable to contact patient or leave a message. Electronically signed by Rachel Juarez RN at 0 10/17/2019 2:42 PM PDTdocumented in this encounter Plan of [...] [place] | | | | | | [address] | | | | | | | | +--------+ + + + + | 11/07/ | Office | Vascular Surgery | Ricci De León DNP | | 2019 | Visit | | [address] | | | | | | [place] | | | | | | [address] | | | | | | | | +--------+ + + + + documented as of this encounter Visit Diagnoses Not on filedocumented in this encounter"
--- OUTSIDE RECORDS SUMMARY | ~2019-11-02 | XMS | Encounter Summary ---
Demographics + + + | Address | [address] | | | [place] [address] | + + + | Home Phone | | + + + | Preferred Language | Unknown | + + + | Marital Status | Single | + + + | Pentecostalism Affiliation | 1009 | + + + | Race | White | + + + | Ethnic Group | Not or | + + + Author + + + | Author | [facility] | | | and [place] | + + + | Organization | [facility] | | | [...] Team Providers + +------+ + | Care Steam Pressure Chamber Operator Name | Role | Phone | [...] + + + | 10/16/ Telephone | [facility] | Rachel Juarez, | Follow-up | | 2019 | | VASCULAR SURGERY | RN | | | | | [address] | | | | | | [place] | | | | | | [address] | | | | | | [phone] | | | +--------+ + + + [...] Justinjeanne Iveth Desmond - 10/20/2019 2:[facility] PM [facility] and would [...]
--- OUTSIDE RECORDS SUMMARY | ~2019-11-02 | XMS | Encounter Summary ---
Demographics + + + | Address | [address] | | | [place] [address] | + + + | Home Phone | | + + + | Preferred Language | Unknown | + + + | Marital Status | Single | + + + | Evangelical Affiliation | BAP | + + + | Race | White | + + + | Ethnic Group | Not or | + + + Author + + + | Author | [facility] [employer] [facility] | + + + | Organization | [facility] | + + + | Address | Unknown | + + + | Phone | Unavailable | + + + Support + + +---------+ + | Name | Relationship | Address | Phone | + + +---------+ + | Lele Colney | ECON | Unknown | | + + +---------+ + Care Team Providers + +------+ + | Care Helpdesk Analyst Name | Role | Phone | [...] + + | 11/17/ | Emergency | [facility] Emergency | Cristhian Mayer, | | | 2016 | | Department [address] | [address] [facility] | | | | | [address] | [facility] | | | | | [facility] | [place], [place] | | | | | [place], [place] | [address] | | | | | [address] | [phone] | | | | | [phone] | | | +--------+ + + + [...] per ref pt will be going to [facility] MCElectronically signed by Joanna Vuong at 10:58 PM PDTCarolinas [facility] Jojo Ayers - 11/16/2016 8:48 PM PDTHOLD-referring exp jorge placement elsewhere due to delays. Will call back to update if bed found elsewhere. E lectronically signed by Jojo Adams at 11/16/2016 8:48 PM PDTAspirus [facility] AdamsJojo - 11/16/2016 8:20 [address]St [...] [facility] transfer l ist at this time. [facility] Carlie Mejia - 11/16/2016 5:49 PM PDTConnected [...] from transferring tonight. Paged group 18. omm [place] - Carlie Mcdowell - 11/16/2016 5:[address] [place] (Colorectal). [place] weeks signed by Carlie Lincoln at 11/16/2016 5:45 PM PDTdocumented in this encounter Plan of Treatment Not on filedocumented as of this encounter Visit Diagnoses Not on filedocumented in this encounter"
--- OUTSIDE RECORDS SUMMARY | ~2019-11-02 | XMS | Encounter Summary ---
Demographics + + + | Address | [address] | | | [place] [address] | + + + | Home Phone | | + + + | Preferred Language | Unknown | + + + | Marital Status | Single | + + + | Amish Affiliation | BAP | + + + | Race | White | + + + | Ethnic Group | Not or | + + + Author + + + | Author | [facility] | + + + | Organization | [facility] | + + + | Address | Unknown | + + + | Phone | Unavailable | + + + Support + + +---------+ + | Name | Relationship | Address | Phone | + + +---------+ + | Lele Conley | ECON | Unknown | | + + +---------+ + Care Team Providers + +------+ + | Care Dinkey Locomotive Operator Name | Role | Phone | [...] | | | | | [place], | | | | | | [place] [address] | | | +--------+ + + + [...] p Report Patient: LARRY THEODORE [facility] Rec: [id number] Sex M Bdate: 1960 Date/Time Data Entered Into [facility] Anesth PostOp Surgery Date [id number] 05/02/07 12:07 Anesthesiologist NOEL CASH 05/02/07 12:07 [...] | + + | 05/02/2007 12:07 PM [facility] Anesthesia PostOp Report | | | | Patient: LARRY THEODORE [facility] Rec: [id number] Sex M Bdate: 1960 | | Date/Time Data | | Entered Into [facility] | | Anesth PostOp | | Surgery Date [id number] 05/02/07 12:07 | | Anesthesiologist NOEL CASH 05/02/07 12:07 | | | + + documented in this encounter Visit Diagnoses Not on filedocumented in this encounter"
--- OUTSIDE RECORDS SUMMARY | ~2019-11-02 | XMS | Clinical Summary ---
Demographics + + + | Address | [address] | | | [place] [address] | + + + | Home Phone [...] Team Providers + +------+ + | Care Plumber Helper Name | Role | Phone | + +------+ + | No Pcp Per Patient | PCP | Unavailable | + +------+ + Source Comments [facility] is fully live on both [facility] Allergies Not on File Medications + + [...] + + + Last Filed Vital Signs Not on file Plan of Treatment + + +-------+ + | Health Maintenance | Due Date | Last | Comments | | | | Done | | + + +-------+ + | Influenza (Flu) | | | | | vaccination (#1) | 9 | | | + + +-------+ + | Pneumococcal | Aged Out | | No longer eligible based on patient's age | | vaccination | | | to complete this topic | + + +-------+ + Results Not on filefrom Last 3 [...] + +--------+ | MEDICARE | MEDICA | [id number] | 04/30/19 | [phone] | [address] | [employer] | | | RE A & | | 08-Pre | [address] | [address] | | | [address] | | sent | | [place], [place] | | | | | | | | [address] | | + +--------+ +--------+ + +--------+ | 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
--- OUTSIDE RECORDS SUMMARY | ~2019-11-02 | XMS | Encounter Summary ---
Demographics + + + | Address | [address] | | | [place] [address] | + + + | Home Phone [...] Team Providers + +------+ + | Care Emergency Medical Technician Basic Name | Role | Phone | + [...] | | | | | | sm ([facility]) | MD Alissa [address] | | | | | | Cellulitis | [address] | | | | | | of right | [place], [place] | | | | | | foot | [address] | | | | | | Thrombosis | Phone: | | | | | | of | [phone] | | | | | | femoral-femo | Fax: | | | | | | ral bypass | [phone] | | | | | | graft ([facility]) | | | | | | [...] + + | 10/02/ | Hospital | [facility] | Jairo Renner MD | Pseudoaneurysm ([facility]) | | 2019 - | Encounter | [facility] | [address] | right aorto femoral | | | | [address] | [place] [address] | bypass (Primary | | 10/15/ | | [place], [place] | [phone] | Dx); Peripheral | | 2019 | | [address] | | arterial disease | | | | [phone] | Latoya Oh DO | ([facility]); | | | | | [address] | Pseudoaneurysm | | | | | [place] [address] | ([facility]); Peripheral | | | | | [phone] | arterial disease | | | | | | ([facility]); Cellulitis of | | | | | Chyna Shook MD | right foot; | | | | | [address] | Thrombosis of | | | | | [place] [address] | femoral-femoral | | | | | [phone] | bypass graft (HCC); | | | | | | Post-operative pain | | | | | Tera Vázquez | | | | | | Jose Castañeda MD [address] | | | | [address] | | | | | | [place] [address] | | | | | | [phone] | | | | | | | | | | | | Mundo Pack | | | | | | Poli Powell MD [address] | | | | [address] [place], [place] | | | | | | [address] | | | | | | | [...] GRAFT FEMORAL-POPLITEAL (Bilateral) ANGIOGRAM - EXTREMITY BILATERAL (66465) (Bilateral) Chief Complaint: No chief complaint on [...] who was admitted on 10/03/2019 Transfer from [facility] with bilateral hip and pelvic burning [...] have wound check in 2 weeks wit [facility] to provide transportation, continue with aspirin 81 mg daily, Plavix 75 mg daily, atorv astatin 40 mg daily. Active Problems: Alcohol abuse/ Tobacco abuse advised to stop smoking and drinking Cellulitis of right foot has been completely treated with Augmentin while in the hospital Discharge Information: Follow up: Teresita Bob MD [address] [place] [id number] Follow up for Home health Wound Care ZULY GRIFFIN [address] [address] Follow up Wound Care and Physical Therapy [...] follow-up and documentati on of discharge summary. Munod Pack MD 10:21 AM PDT documented i [...] you recover. Don t drive for at ytkpa4char after your surgery or while you are [...] better overnight Chest pain or trouble breathing [employer] last reviewed this educational content on 11/29/201819991452-1576 [employer]. [address] [place] [address]. All righ ts reserved. This information is [...] of developing AAA decreases. To learn more Smokefree.gov/iqbt-ee-wu-expert National Cancer [employer] Smoking Quitline:947-56Y-ZXIP (038-720-7229) [employer] last reviewed this educational content on 12/30/201819994490-1087 [employer]. [address] [place] [address]. All righ ts reserved. This information is [...] find a support program: Free national quitline 797-OLEJ-WEI (367-100-3823) [facility] quit-smoking programs [employer] 797-807-8310 [employer] 972-318-0476 Support at home is important too. Family and friends can offer praise and reassurance. If t he smoker in your life finds it hard to quit, encourage them to keep trying. Try wjbd-iya-syvvrpl medicine Nicotine replacement therapymay make iteasier to [...] to quit smoking, try these resources: www.cdc.gov/tobacco/quit_smoking/ 984-QJKN-NQQ (597-364-6094) www.smokefree.gov 474-49S-RLLT (951-631-4804) www.lung.org/stop-smoking/ 800-LUNGUSA (346-148-5809) [employer] last reviewed this educational content on 01/29/201919994042-1784 [employer]. [address] [place] [address], [place] [address]. All righ ts reserved. This information is [...] PA- C - 10/16/2019 7:20 AM PDT [facility] Service: Vascular Surgery Progress Note Hospital Day: LOS: 13 days Post-Op Day: 11/06 SUBJECTIVE Patient Summary: The patient is a 59 y.o. 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 He unde rwent aortobifemoral bypass in [...] scan which revealed enlargement of known right LINE HAUL OWNER OPERATOR pseudoaneurysm. He was transferred to [facility] for evaluation and Vascular was [...] importance of following up with our office residential. Still recommend discharge ho me with assist [...] 10/15/2019 10:30 AM PDT . Jairo Theodore [id number] Hospital Day: 12 SUBJECTIVE Events Overnight: Patient [...] been in touch with his Merrill, Lele [phone] and he did not want me to [...] and management as well as Computerized Physician Olericulture Teacher. Dictation software, Animated Speech, used which may contain error for similar sounding words even af ter review. Portions of this chart may have been copied from previous notes for continuity of care. 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 He unde rwent aortobifemoral bypass in [...] scan which revealed enlargement of known right LINE HAUL OWNER OPERATOR pseudoaneurysm. He was transferred to [facility] for evaluation and Vascular was [...] swelling. Call with any neurovascular changes. [facility] with management of this patient. Disposition: [...] - 10/14/2019 9:23 AM PDT Jairo Theodore [id number] Hospital Day: 11 SUBJECTIVE Events Overnight: Patient [...] been in touch with his Merrill, Lele [phone] and he did not want me to [...] and management as well as Computerized Physician Olericulture Teacher. Dictation software, Animated Speech, used which may contain error for similar sounding words even af ter review. Portions of this chart may have been copied from previous notes for continuity of care. 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 He unde rwent aortobifemoral bypass in [...] scan which revealed enlargement of known right LINE HAUL OWNER OPERATOR pseudoaneurysm. 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 He unde rwent aortobifemoral bypass in [...] scan which revealed enlargement of known right LINE HAUL OWNER OPERATOR pseudoaneurysm. He was transferred to [facility] for evaluation and Vascular was [...] different from t wyatt original. Jairo Theodore [id number] Hospital Day: 10 SUBJECTIVE Events Overnight: Patient [...] been in touch with his Merrill, Lele [phone] and he did not want me to [...] and management as well as Computerized Physician Olericulture Teacher. Dictation software, Animated Speech, used which may contain error for similar [...] different from the orig inal. Jairo Theodore [id number] Hospital Day: 9 SUBJECTIVE Events Overnight: Patient [...] been in touch with his Merrill, Lele [phone] and he did not want me to [...] and management as well as Computerized Physician Olericulture Teacher. Dictation software, Animated Speech, used which may contain error for similar sounding words even af ter review. Portions of this chart may have been copied from previous notes for continuity of care. 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 He unde rwent aortobifemoral bypass in [...] scan which revealed enlargement of known right LINE HAUL OWNER OPERATOR pseudoaneurysm. He was transferred to [facility] for evaluation and Vascular was [...] Color, UA YELLOW Clarity, Urine CLEAR Specific Transfer, Urine 1.008 1.002 - 1.030 Leukocyte esterase, [...] BANK. BLOOD BANK COMMENT Testing performed at [facility];[address] [place] [address] Type and Screen Collection Time: 10/12/19 7:52 AM Result Value Ref Range ABO Rh A POSITIVE Antibody Screen NEGATIVE BB BAND [id number] BB BAND Testing performed at [facility];[address] [place] [address] UNIT # [id number] Product Code LEUKODEPLETED PC Unit Division 00 Unit Status ALLOCATED Transfusion Status OK TO TRANSFUSE CROSSMATCH RESULT COMPATIBLE UNIT # [id number] Product Code LEUKODEPLETED PC Unit Division 00 [...] to chair with feet elevated. Please call [facility] any neurovascular changes. Appreciate hospitalitis [...] different from the origina smooth Jairo Theodore [id number] Hospital Day: 8 SUBJECTIVE Events Overnight: Patient [...] right to left femoral [facility] 8 mm PTFE. Continue with [...] been in touch with his Merrill, Lele [phone] and he did not want me to [...] and management as well as Computerized Physician Olericulture Teacher. Dictation software, Animated Speech, used which may contain error for similar sounding words even af ter review. Portions of this chart may have been copied from previous notes for continuity of care. 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 He unde rwent aortobifemoral bypass in [...] scan which revealed enlargement of known right LINE HAUL OWNER OPERATOR pseudoaneurysm. 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 He unde rwent aortobifemoral bypass in [...] scan which revealed enlargement of known right LINE HAUL OWNER OPERATOR pseudoaneurysm. He was transferred to [facility] for evaluation and Vascular was [...] might be different from the or iginal. [facility] Service: Early Childhood Education Worker Progress Note Jairo Theodore 59 y.o. Hospital [...] He was farnsworth sferred on 10/03/2019 from [facility] for right foot swelling and increase in [...] procedures. Tyler Elias MD 10/10/2019 Dictation software, Animated Speech, was used which may contain error with similar sound words even after review. Portions of this chart may have been copied from previous notes for continuity of care. Daniella Arias RN - 10/09/2019 10:20 AM PDTFamily/ neonatal critical care nurse updated by pt. 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 He unde rwent aortobifemoral bypass in [...] scan which revealed enlargement of known right LINE HAUL OWNER OPERATOR pseudoaneurysm. He was transferred to [facility] for evaluation and Vascular was [...] Gr MD - 10/09/2019 1:[address] AM PDT [facility] Service: Early Childhood Education Worker Progress Note Jairo Theodore 59 y.o. Hospital [...] He was farnsworth sferred on 10/03/2019 from [facility] for right foot swelling and increase in [...] smoking; continue nicotine patch. Counseled on smoking yjoti sation GI/NUTRITION NPO for now Monitor for [...] procedures. Julian Gr MD 10/09/2019 Dictation software, Animated Speech, was used which may contain error with [...] by vascular surgery. R eport given to CODING ASSISTANT. Pt safely transferred to room 80825. Incisions and dressings were teresa an and dry. Post tib and pedal pulses dopplerable. JADA SHINE RN Chyna Rashid MD - 10/08/2019 4:[address] [facility] Service: Hospitalist Progress Note Hospital Day: LOS: 5 days SUBJECTIVE Patient Summary: Mr. Theodore is a 59 yr old man active smoker 1ppday with alcohol abuse, hx of PAD, s/p right aorto bifemoral bypass in 1999 complicated by pseudoaneurysm, s/p revision, was transferred from [facility] ED for right foot swelling and increasing [...] Rashid MD - 10/07/2019 3:[address] [facility] Service: Hospitalist Progress Note Hospital Day: LOS: 4 days SUBJECTIVE Patient Summary: Mr. hTeodore is a 59 yr old man active smoker 1ppday with alcohol abuse, hx of PAD, s/p right aorto bifemoral bypass in 1999 complicated by pseudoaneurysm, s/p revision, was transferred from [facility] ED for right foot swelling and increasing [...] A POSITIVE Antibody Screen NEGATIVE BB BAND APPLIANCES SAMPLE MAKER 0630 BB BAND Testing performed at [facility];[address] [place] [address] UNIT # [id number] Product Code LEUKODEPLETED PC Unit Division 00 Unit Status ISSUED Transfusion Status OK TO TRANSFUSE CROSSMATCH RESULT COMPATIBLE UNIT # [id number] Product Code LEUKODEPLETED PC Unit Division 00 Unit Status ISSUED Transfusion Status OK TO TRANSFUSE CROSSMATCH RESULT COMPATIBLE UNIT # [id number] Product Code LEUKODEPLETED PC Unit Division 00 Unit Status ALLOCATED Transfusion Status OK TO TRANSFUSE CROSSMATCH RESULT COMPATIBLE UNIT # [id number] Product Code LEUKODEPLETED PC Unit Division 00 Unit Status ALLOCATED Transfusion Status OK TO TRANSFUSE CROSSMATCH RESULT COMPATIBLE Red Blood Cells (PRBC) - Crossmatch and Hold Result Value Ref Range Product Code RED CELL GROUP Units ordered 2 BLOOD BANK COMMENT ORDER RECEIVED IN BLOOD BANK. BLOOD BANK COMMENT Testing performed at [facility];[address] [place] [address];[place] [address] POC ISTAT, CG8, Arterial Result Value Ref [...] BANK. BLOOD BANK COMMENT Testing performed at [facility];[address] [place] [address];[place] [address] POC ISTAT, CG8, Arterial Result Value Ref [...] Milian PA-C - 10/07/2019 7:08 AM PDT [facility] Service: Vascular Surgery Progress Note Hospital Day: LOS: 4 days Post-Op Day: * No surgery date entered * SUBJECTIVE Patient Summary: The patient is a 59 y.o. 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 He unde rwent aortobifemoral bypass in [...] scan which revealed enlargement of known right LINE HAUL OWNER OPERATOR pseudoaneurysm. He was transferred to [facility] for evaluation and Vascular was [...] A POSITIVE Antibody Screen NEGATIVE BB BAND APPLIANCES SAMPLE MAKER 0630 BB BAND Testing performed at [facility];[address] [place] [address];[place] [address] UNIT # [id number] Product Code LEUKODEPLETED PC Unit Division 00 Unit Status ALLOCATED Transfusion Status OK TO TRANSFUSE CROSSMATCH RESULT COMPATIBLE UNIT # [id number] Product Code LEUKODEPLETED PC Unit Division 00 Unit Status ALLOCATED Transfusion Status OK TO TRANSFUSE CROSSMATCH RESULT COMPATIBLE Red Blood Cells (PRBC) - Crossmatch and Hold Collection Time: 10/07/19 6:30 AM Result Value Ref Range Product Code RED CELL GROUP Units ordered 2 BLOOD BANK COMMENT ORDER RECEIVED IN BLOOD BANK. BLOOD BANK COMMENT Testing performed at [facility];[address] [place] [address];[place] [address] PROBLEM LIST Principal Problem: Pseudoaneurysm right aorto [...] Shook MD - 10/06/2019 10:[address] [facility] Service: Hospitalist Progress Note Hospital Day: LOS: 3 days SUBJECTIVE Patient Summary: Mr. Theodore is a 59 yr old man active smoker 1ppday with alcohol abuse, hx of PAD, s/p right aorto bifemoral bypass in 1999 complicated by pseudoaneurysm, s/p revision, was transferred from [facility] ED for right foot swelling and increasing [...] Crum PA-C - 10/06/2019 9:32 AM PDT [facility] Service: Vascular Surgery Progress Note Hospital Day: LOS: 3 days Post-Op Day: * No surgery date entered * SUBJECTIVE Patient Summary: The patient is a 59 y.o. 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 He unde rwent aortobifemoral bypass in [...] scan which revealed enlargement of known right LINE HAUL OWNER OPERATOR pseudoaneurysm. He was transferred to [facility] for evaluation and Vascular was [...] Rashid MD - 10/05/2019 12:[address] [facility] Service: Hospitalist Progress Note Hospital Day: LOS: 2 days SUBJECTIVE Patient Summary: Mr. Theodore is a 59 yr old man active smoker 1ppday with alcohol abuse, hx of PAD, s/p right aorto bifemoral bypass in 1999 complicated by pseudoaneurysm, s/p revision, was transferred from [facility] ED for right foot swelling and increasing [...] Crum PA-C - 10/05/2019 8:18 AM PDT [facility] Service: Vascular Surgery Progress Note Hospital Day: LOS: 2 days Post-Op Day: * No surgery date entered * SUBJECTIVE Patient Summary: The patient is a 59 y.o. 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 He unde rwent aortobifemoral bypass in [...] scan which revealed enlargement of known right LINE HAUL OWNER OPERATOR pseudoaneurysm. He was transferred to [facility] for evaluation and Vascular was [...] and open repair for his enlarging right LINE HAUL OWNER OPERATOR pseudoaneurysm. He will need r etroperitoneal [...] Rashid MD - 10/04/2019 9:[address] [facility] Service: Hospitalist Progress Note Hospital Day: LOS: 1 day SUBJECTIVE Patient Summary: Mr. Theodore is a 59 yr old man active smoker 1ppday with alcohol abuse, hx of PAD, s/p right aorto bifemoral bypass in 1999 complicated by pseudoaneurysm, s/p revision, was transferred from [facility] ED for right foot swelling and increasing [...] LYTY 0809 BB BAND Testing performed at [facility];[address] [place] [address];[place] [address] ECG 12 lead Result Value Ref Range [...] check if blood cultures were taken at [facility] Prn pain medication Pseudoaneurysm right femoral artery [...] might be different from t he original. [facility] Service: Hospitalist Admission History & [...] who p resents as a transfer from [facility] ED for pseudoaneurysm of the right groin and celluli tis of the RLE. Per patient right pseudoaneurysm of the right groin has been getting bigger for at least a year. Right foot swelling for 5 days. Patient reports similar episodes at the [facility] twice a year but this time [...] LYTY 0809 BB BAND Testing performed at [facility];[address] [place] [address];[place] [address] ECG 12 lead Result Value Ref Range INTERPRETATION TEXT Not Confirmed IMAGING No orders to display EKG at 2310: NSR, VR 72, Qtc 455. Data from [facility] -Ultrasound impression: 6.3 x [...] delirium tremens, seizures from withdrawals or withdrawals -[facility] protocol initiated Tobacco abuse: -Quit smoking today smoke a pack of cigarettes per day -Nicotine patch Hypokalemia GI and DVT prophylaxis Code Status: Full Code Dictation software, [employer], used which may contain errors for similar [...] might be different from the [facility] Service: Early Childhood Education Worker Initial Consult Note Jairo Theodore 59 y.o. [...] was transf erred 5 days ago from [facility] for right foot swelling and increase in [...] ENDARTERECTOMY FEMORAL; Surgeon: Magdiel Arteaga MD; Location: [facility] MAIN OR FEMORAL-FEMORAL BYPASS GRAFT N/A 10/07/2019 Procedure: BYPASS GRAFT FEMORAL-FEMORAL; Surgeon: Magdiel Arteaga MD; Location: [facility] MAIN OR OTHER SURGICAL HISTORY Right 10/07/2019 Procedure: REPAIR PSEUDOANEURYSM- FEMORAL; Surgeon: Magdiel Arteaga MD; Location: [facility] GABI N OR ALLERGIES Allergies Allergen Reactions [...] file Gets together: Not on file Attends gnosticism service: Not on file Active member of [...] PDTAssociated Order(s): PROVIDER TO PROVIDER CONSUL T [facility] Service: Vascular Surgery Initial Consult Note Date of Admission: 10/03/2019 Date of Consultation: 10/04/2019 Reason for Consultation: Pseudoaneurysm of right LINE HAUL OWNER OPERATOR Primary Care Physician: No Physician on file History Obtained From: Patient, chart review Code Status: Full Code CHIEF COMPLAINT: Right foot swelling and pain; Enlarging right femoral pseudoaneurysm HISTORY OF PRESENT ILLNESS The patient is a 59 y.o. 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 He underwent aortobifemoral by pass in [...] which reveal ed enlargement of known right LINE HAUL OWNER OPERATOR pseudoaneurysm. He was transferred to [facility] for evaluation and Vascular was [...] sodium chloride 0.9% 100 mL/hr at 10/03/19 7765 PRN Medications acetaminophen, calcium carbonate, LORazepam, melatonin, [...] - The patient was transferr ed to [facility] for evaluation of his enlarging pseudoaneurysm, which has been the same size for the last year he reports. [facility] year but was lost to any follow up. 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 His C TA with runoff yesterday showed enlarging right femoral pseudoaneurysm. Left LINE HAUL OWNER OPERATOR shows no in flow but reconstitutes. The patient will require revascularization and open repair for his e nlarging right LINE HAUL OWNER OPERATOR pseudoaneurysm. He will need retroperitoneal exposure [...] will use his Medicare Part D benefits. GILL BOX FIXER and Pt called [facility], got him reestablished with the [facility], has not been seen since 2018 . Pt is now assigned to [facility]. GILL BOX FIXER p/c with Rudolph at [facility], states they will be calling Pt for follow up appt and will send referral for outpatient wound care. GILL BOX FIXER p/c with Carol at [facility], states she has received [place] orders in the p ast and will follow up with Dr. Bob's office. GILL BOX FIXER provided referral and faxed Home health referral. [...] Bed Mobility Supine to Sit, Level of Bartholomew: modified independent Sit to Supine, Level of Bartholomew: modified independent Safety Issues: decreased use of legs for bridging/pushing Transfers Sit-Stand, Level of Bartholomew: supervised Stand-Sit, Level of Bartholomew: supervised Wyt-Smequ-Vfx, Assistive Device: none Gait Level of Bartholomew: supervised Assistive Device: none Distance (feet): 40 Goals Reflects last filed data and may be from multiple contributors. All Bed Mobility Goal Most Recent Value LTG Status new at 10/09/2019 1108 LTG Bartholomew Level modified independent at 10/09/2019 1108 LTG Assistive Device none at 10/09/2019 1108 All Transfers Goal Most Recent Value LTG Status new at 10/09/2019 1108 LTG Bartholomew Level modified independent at 10/09/2019 1108 LTG Assistive Device 2 wheeled walker (FWW) at 10/09/2019 1108 Gait Goal Most Recent Value LTG Status new at 10/09/2019 1108 LTG Bartholomew Level modified independent at 10/09/2019 1108 LTG Assistive Device 2 wheeled walker (FWW) at 10/09/2019 1108 LTG Distance (feet) 100 at 10/09/2019 1108 Stair Goal Most Recent Value LTG Status new at 10/09/2019 1108 LTG Bartholomew Level modified independent at 10/09/2019 1108 LTG [...] bed rails Supine to Sit, Level of Bartholomew: modified independent Safety Issues: decreased use of legs for bridging/pushing Impairments: ROM decreased, strength decreased Transfers Sit-Stand, Level of Bartholomew: stand by assist, verbal cues required Stand-Sit, Level of Bartholomew: stand by assist, verbal cues required Erk-Goscy-Okr, Assistive Device: 2 wheeled walker (FWW), none Toilet, Level of Bartholomew: stand by assist, verbal cues required Toilet, Assistive Device: 2 wheeled walker (FWW), grab bars Gait Gait Comments: antalgic gait with flexed trunk posture and intermittent crouch position Level of Bartholomew: stand by assist, verbal cues required(verbal cues [...] LTG Status new at 10/09/2019 1108 LTG Bartholomew Level modified independent at 10/09/2019 1108 LTG Assistive Device none at 10/09/2019 1108 All Transfers Goal Most Recent Value LTG Status new at 10/09/2019 1108 LTG Bartholomew Level modified independent at 10/09/2019 1108 LTG Assistive Device 2 wheeled walker (FWW) at 10/09/2019 1108 Gait Goal Most Recent Value LTG Status new at 10/09/2019 1108 LTG Bartholomew Level modified independent at 10/09/2019 1108 LTG Assistive Device 2 wheeled walker (FWW) at 10/09/2019 1108 LTG Distance (feet) 100 at 10/09/2019 1108 Stair Goal Most Recent Value LTG Status new at 10/09/2019 1108 LTG Bartholomew Level modified independent at 10/09/2019 1108 LTG [...] Bed Mobility Supine to Sit, Level of Bartholomew: minimal assist (75% patient effort) Transfers Sit-Stand, Level of Bartholomew: minimal assist (75% patient effort) Gait Level of Bartholomew: minimal assist (75% patient effort) Assistive Device: [...] LTG Status new at 10/09/2019 1108 LTG Bartholomew Level modified independent at 10/09/2019 1108 LTG Assistive Device none at 10/09/2019 1108 All Transfers Goal Most Recent Value LTG Status new at 10/09/2019 1108 LTG Bartholomew Level modified independent at 10/09/2019 1108 LTG Assistive Device 2 wheeled walker (FWW) at 10/09/2019 1108 Gait Goal Most Recent Value LTG Status new at 10/09/2019 1108 LTG Bartholomew Level modified independent at 10/09/2019 1108 LTG Assistive Device 2 wheeled walker (FWW) at 10/09/2019 1108 LTG Distance (feet) 100 at 10/09/2019 1108 Stair Goal Most Recent Value LTG Status new at 10/09/2019 1108 LTG Bartholomew Level modified independent at 10/09/2019 1108 LTG [...] participation. Pt with an i ncontinent BM. CONFIGURATION MANAGEMENT CONSULTANT and PT assisting with mobility and pericare. [...] Transfers Additional Documentation: toilet Sit-Stand, Level of Bartholomew: minimal assist (75% patient effort) Stand-Sit, Level of Bartholomew: minimal assist (75% patient effort) Snt-Jrinf-Atm, Assistive Device: 2 wheeled walker (FWW) Toilet, Level of Bartholomew: minimal assist (75% patient effort) Toilet, Assistive Device: 2 wheeled walker (FWW) Safety Issues: loses balance backward, weight-shifting ability decreased, step length decre ased, sequencing ability decreased, balance decreased during turns Impairments: ROM decreased, strength decreased, impaired balance Gait Gait Comments: reduced step length BLE, excessive trunk flexion, reduced weight bearing RLE , avoidance COG over HAN Level of Bartholomew: minimal assist (75% patient effort) Assistive Device: 2 wheeled walker (FWW) Distance (feet): 15x2 Goals Reflects last filed data and may be from multiple contributors. All Bed Mobility Goal Most Recent Value LTG Status new at 10/09/2019 1108 LTG Bartholomew Level modified independent at 10/09/2019 1108 LTG Assistive Device none at 10/09/2019 1108 All Transfers Goal Most Recent Value LTG Status new at 10/09/2019 1108 LTG Bartholomew Level modified independent at 10/09/2019 1108 LTG Assistive Device 2 wheeled walker (FWW) at 10/09/2019 1108 Gait Goal Most Recent Value LTG Status new at 10/09/2019 1108 LTG Bartholomew Level modified independent at 10/09/2019 1108 LTG Assistive Device 2 wheeled walker (FWW) at 10/09/2019 1108 LTG Distance (feet) 100 at 10/09/2019 1108 Stair Goal Most Recent Value LTG Status new at 10/09/2019 1108 LTG Bartholomew Level modified independent at 10/09/2019 1108 LTG [...] Recommendations: 2 wheeled walker (FWW), shower chair, mill operator head, sock aide, long handled sponge, long handled [...] cheese snadwhiches since [facility] despite his chart saying he has been [...] bed rails Supine to Sit, Level of Bartholomew: minimal assist (75% patient effort) Sit to Supine, Level of Bartholomew: moderate assist (50% patient effort) Safety Issues: decreased use of legs for bridging/pushing, decreased use of arms for pushin g/pulling Impairments: ROM decreased, strength decreased, postural control impaired, pain Transfers Additional Documentation: sit to/from stand Sit-Stand, Level of Bartholomew: minimal assist (75% patient effort) Stand-Sit, Level of Bartholomew: maximal assist (25% patient effort) Hin-Mhowa-Fwa, Assistive Device: 2 wheeled walker (FWW), gait belt Safety Issues: loses balance backward, weight-shifting ability decreased, step length decre ased, sequencing ability decreased, balance decreased during turns Impairments: ROM decreased, strength decreased, impaired balance ROM Comments: WFL Strength Comments: WFL. B sandblast or shotblast equipment tender strength 4/5. B UE MMT 4/5 except for biceps 3+/5 Balance Sitting Balance: Static: good balance Sitting Balance: Dynamic: good balance Standing Balance: Static: poor balance Standing Balance: Dynamic: poor balance Goals Reflects last filed data and may be from multiple contributors. LB Dressing Goal Most Recent Value LTG Status new at 10/10/2019 154 LTG Bartholomew Level minimum assist (75% patient effort), set up required at 10/10/20191544 LTG Adaptive Equipment mill operator head, sock-aid at 10/10/20191544 Toilet Transfer Goal Most Recent Value LTG Status new at 10/10/2019 154 LTG Bartholomew Level minimum assist (75% patient effort) at [...] at bedside in ICU on turnover by overhead door technician. Patient stat es he feels better, no [...] bed rails Supine to Sit, Level of Bartholomew: minimal assist (75% patient effort) Transfers Bed-Chair, Level of Bartholomew: minimal assist (75% patient effort) Mrh-Nirew-Ceb, Assistive Device: 2 wheeled walker (FWW), gait belt Sit-Stand, Level of Bartholomew: minimal assist (75% patient effort), stand by assist Stand-Sit, Level of Bartholomew: minimal assist (75% patient effort), stand by assist Gait Gait Comments: reduced step length BLE, excessive trunk flexion, reduced weight bearing RLE , avoidance COG over HAN Level of Bartholomew: minimal assist (75% patient effort), verbal cues [...] LTG Status new at 10/09/2019 1108 LTG Bartholomew Level modified independent at 10/09/2019 1108 LTG Assistive Device none at 10/09/2019 1108 All Transfers Goal Most Recent Value LTG Status new at 10/09/2019 1108 LTG Bartholomew Level modified independent at 10/09/2019 1108 LTG Assistive Device 2 wheeled walker (FWW) at 10/09/2019 1108 Gait Goal Most Recent Value LTG Status new at 10/09/2019 1108 LTG Bartholomew Level modified independent at 10/09/2019 1108 LTG Assistive Device 2 wheeled walker (FWW) at 10/09/2019 1108 LTG Distance (feet) 100 at 10/09/2019 1108 Stair Goal Most Recent Value LTG Status new at 10/09/2019 1108 LTG Bartholomew Level modified independent at 10/09/2019 1108 LTG [...] Family Contact Information: Name: Lele Conley (Roommate) Cyhxboavzpsvuf signed by PORTILLO Varner at 10/10/2019 10:13 [...] HOB elevated Supine to Sit, Level of Bartholomew: maximal assist (25% patient effort) Safety Issues: decreased use of legs for bridging/pushing, impaired trunk control for bed m obility Impairments: pain, strength decreased, ROM decreased Transfers Additional Documentation: sit to/from stand, bed to/from chair Bed-Chair, Level of Bartholomew: moderate assist (50% patient effort) Vkn-Rnviv-Tsb, Assistive Device: 2 wheeled walker (FWW) Sit-Stand, Level of Bartholomew: minimal assist (75% patient effort) Stand-Sit, Level of Bartholomew: minimal assist (75% patient effort) Mdl-Ltkel-Btl, Assistive Device: 2 wheeled walker (FWW) Safety [...] LTG Status new at 10/09/2019 1108 LTG Bartholomew Level modified independent at 10/09/2019 1108 LTG Assistive Device none at 10/09/2019 1108 All Transfers Goal Most Recent Value LTG Status new at 10/09/2019 1108 LTG Bartholomew Level modified independent at 10/09/2019 1108 LTG Assistive Device 2 wheeled walker (FWW) at 10/09/2019 1108 Gait Goal Most Recent Value LTG Status new at 10/09/2019 1108 LTG Bartholomew Level modified independent at 10/09/2019 1108 LTG Assistive Device 2 wheeled walker (FWW) at 10/09/2019 1108 LTG Distance (feet) 100 at 10/09/2019 1108 Stair Goal Most Recent Value LTG Status new at 10/09/2019 1108 LTG Bartholomew Level modified independent at 10/09/2019 1108 LTG [...] 1.7 Estimated Energy Needs Energy Calorie Requirements: 7064-7355(28-32 kcal/kg per 54.3 kg admit wt ) [...] Ongoing, progressing Flowsheets (Taken 10/09/2019 1024) Participants: nurse case management dietitian/nutrition services advanced practice nurse nursing pharmacy [...] started on clear liquid diet. lan of [facility] Viv Santos MSW - 10/09/2019 9:44 AM PDTAttended morning rounds. Pt transferred to ICU post -op for repair of thrombosed fem-fem artery bypass. Progressing. Await PT to julissa and alissa tinajero. Has no PCP per CM note and FS. [facility] Urszula Garcia RN - 10/09/2019 8:02 AM [...] 2:31 PM PDT BRIEF OPERATIVE NOTE [facility] Pt. Name/Age/: Jairo Theodore 59 y.o. 1960 Med. Record Number: [id number] Date of admission: 10/03/2019 Date of Operation/Procedure: [...] (HCC) [I73.9] Surgeon: Magdiel Arteaga MD Refrigeration Specialist: Maicol Abel PA-C Anesthesia Provider(s): Anesthesiologist: Orlando Ambriz DO COMMUNITY SERVICE OFFICER COORDINATOR: Som Garcia CRNA Anesthesia Type: Anesthesia type not filed in the log. Procedure(s): THROMBECTOMY / EMBOLECTOMY of fem fem bypass BILATERAL BYPASS GRAFT FEMORAL-POPLITEAL WITH 6 MM PTFE ANGIOGRAM - EXTREMITY BILATERAL (48504) Operative Findings: Thrombosed femoral to femoral artery [...] Implant Name Type Inv. Item Serial No. Second Steward Lot No. LRB No. Used Action GRAFT VAS PROPATEN 6-80MM - [id number] Graft GRAFT VAS PROPATEN 6-80MM [id number] [facility] NA N/A 1 Implanted GRAFT VAS PROPATEN 6-80MM - [id number] Graft GRAFT VAS PROPATEN 6-80MM [id number] [facility] NA N/A 1 Implanted Counts: Instrument, sponge, and needle counts were correct prior to closure and at the con clusion of the case. Complications: None Disposition: The patient was taken to PACU Immediate Post-Operative Condition: Stable Electronically signed by: Magdiel Arteaga MD, 10/08/2019, 2:31 PM PDT p Note - Magdiel Arteaga MD - 10/08/2019 10 :06 AM PDT [facility] OPERATIVE REPORT PATIENT NAME: [...] the femorofemoral bypass. Using 2 CV 6 Castorland-Jamie sutures the 6 mm bypass was anastomos [...] astomosis was created with 2 CV 6 Castorland-Jamie sutures. Prior to completing the anastomosis the [...] an antibiotic solution. Hemostasis was achieved. 7 Pashto drains were placed in both groins and [...] Magdiel Arteaga MD Vascular Surgery Dictation software, Animated Speech, used which may contain error for similar sounding words even af ter review. Personal communication requested for any clarification. Electronically signed by: Magdiel Arteaga MD, 10/09/2019 10:06 AM PDT [facility] lan of Care - Aggie [...] Arteaga MD - 10/07/2019 7:00 PM PDT [facility] OPERATIVE REPORT PATIENT NAME: Jairo Theodore [...] vanced a wire and placed a 7 Pashto sheath. We again attempted to select out [...] femoral endarterectomy was performed w ith a Jackson elevator. There was good backbleeding from the [...] common femoral endarterectomy was performed using the Jackson elevator. After performing the endarterect carlyle there [...] copiously irrigated. There was good hemostasis. 7 Pashto flat AUGUSTUS drains were placed in both [...] Magdiel Arteaga MD Vascular Surgery Dictation software, Animated Speech, used which may contain error for similar sounding words even af ter review. Personal communication requested for any clarification. Electronically signed by: Magdiel Arteaga MD, 10/09/2019 9:28 AM PDT [facility] rief Op Note - Magdiel Arteaga MD - 10/07/2019 4:30 PM PDTFormatting of this note might be different from the or iginal. BRIEF OPERATIVE NOTE [facility] Pt. Name/Age/: Jairo Theodore 59 y.o. 1960 Med. Record Number: [id number] Date of admission: 10/03/2019 Date of Operation/Procedure: 10/07/2019 Preoperative Diagnosis: 1. Large right groin pseudoaneurysm 2. Peripheral arterial disease Postoperative Diagnosis: * Pseudoaneurysm (HCC) [I72.9] Surgeon: Magdiel Arteaga MD Refrigeration Specialist: Maicol Abel PA-C Anesthesia Provider(s): Anesthesiologist: Rudolph Lowery MD COMMUNITY SERVICE OFFICER COORDINATOR: Neville Rush CRNA Anesthesia Type: General Procedure(s): [...] Implant Name Type Inv. Item Serial No. Second Steward Lot No. LRB No. Used Action GRAFT GORE PROPATEN [id number] - [id number] Graft GRAFT GORE PROPATEN [id number] WL GORE - WLGO NA Right 1 Implanted GRAFT HEMGRD KNIT [id number] - [id number] Graft GRAFT HEMGRD KNIT [id number] US SALES - [id number] [id number] Right 1 [...] VSS with one SBP in 170s recheck [id number]. Report given to preop nurse and 0600IVPB [...] and Optimize Oral Intake Flowsheets (Taken 10/05/2019 9365) Oral Nutrition Promotion: calorie dense foods provided Note: Pt tolerating oral liquids well. NPO at midnight. [facility] of [facility] Oriana Mar RN - 10/04/2019 8:07 PM [...] chart check and audit complete. [facility] Zuleyka Ramos RN - 10/04/2019 6:55 PM [...] the bathroom clear of clutter. [facility] Carol Olivares MSW - 10/04/2019 12:52 PM [...] Notes: Pt resides with his friend in [place]. 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 Pt scheduled for pseudoaneurysm repair on [...] BUN 7* CREA 0.60* Estimated Energy Needs 0925-8251 kcal/day (28-32 kcal/kg per 54.3 kg admit [...] [place] | | | | | | [id number] | | | | | | | | +--------+ + + + + | 11/07/ | Office | Vascular Surgery | Ricci De León DNP | | 2019 | Visit | | [address] | | | | | | [place] | | | | | | [address] | | | | | | | [...] | Health | Referral | e | ([facility]) right aorto | | | | | | femoral bypass | | | | | | Cellulitis of right | | | | | | foot 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 ([facility]) | | | | | | [...] [facility]) Peripheral | | | (33088) | | PDT | arterial disease | [...] | EMBOLECTOMY | | 9:22 AM | ([facility] [...] LAB[facility]ATORY | | | | performed at [facility], [address] | | | | | [address], | | | | | | [place] [address] | | | | + + + + + + + + | Specimen | + + | Blood | + + + + + + + | Performing | Address | City/State/Zipcode | Phone Number | | Organization | | | | + + + + + | [facility] | [address] | [place] [address] | [phone] | + + + + + Magnesium (10/16/2019 5:11 AM PDT) + + + + + + | Component | Value | Ref Range | Performed | Pathologist | | | | | At | Signature | + + + + + + | Magnesium | 1.7Comment: Testing | 1.7 - 2.4 mg/dL | [facility] | | | | performed at [facility];[address] | | LABORATORY | | | | [address];[place] | | | | | | [address] | | | | + + + + + + + + | Specimen | + + | Blood | + + + + + + + | Performing | Address | City/State/Zipcode | Phone Number | | Organization | | | | + + + + + | [facility] | [address] | [place] [address] | [phone] | + + + + + Potassium (10/16/2019 5:11 AM PDT) + + + + + + | Component | Value | Ref Range | Performed | Pathologist | | | | | At | Signature | + + + + + + | K | 3.0 (L)Comment: Testing | 3.5 - 4.9 | [facility] | | | | performed at [facility];[address] | mmol/L | LABORATORY | | | | [address];[place] | | | | | | [address] | | | | + + + + + + + + | Specimen | + + | Blood | + + + + + + + | Performing | Address | City/State/Zipcode | Phone Number | | Organization | | | | + + + + + | [facility] | [address] | [place] [address] | [phone] | + + + + + CBC [...] | 10.6Comment: NO NORMAL | fl | [facility] | | | | RANGE ESTABLISHEDTesting | | LABORATORY | | | | performed at [facility], [address] | | | [address], | | | | | | [place] [address] | | | | + + + + + + + + | Specimen | + + | Blood | + + + + + + + | Performing | Address | City/State/Zipcode | Phone Number | | Organization | | | | + + + + + | [facility] | [address] | [place] [address] | [phone] | + + + + + Magnesium (10/15/2019 5:13 AM PDT) + + + + + + | Component | Value | Ref Range | Performed | Pathologist | | | | | At | Signature | + + + + + + | Magnesium | 1.9Comment: Testing | 1.7 - 2.4 mg/dL | [facility] | | | | performed at [facility];[address] | | LABORATORY | | | | [facility];[place], [place] | | | | | | [address] | | | | + + + + + + + + | Specimen | + + | Blood | + + + + + + + | Performing | Address | City/State/Zipcode | Phone Number | | Organization | | | | + + + + + | [facility] | [address] | [place] [address] | [phone] | + + + + + Basic [...] | >60Comment: GFR <60: | >60 | [facility] | | | GFR | [...] | | | | | | MDRD [facility] traceable | | | | | | equation.Testing | | | | | | performed at [facility], [address] | | | | | | [facility], | | | | | | [place] [address] | | | | + + + + + + + + | Specimen | + + | Blood | + + + + + + + | Performing | Address | City/State/Zipcode | Phone Number | | Organization | | | | + + + + + | [facility] | [address] | [place] [address] | [phone] | + + + + + Potassium (10/14/2019 3:28 PM PDT) + + + + + + | Component | Value | Ref Range | Performed | Pathologist | | | | | At | Signature | + + + + + + | K | 3.3 (L)Comment: Testing | 3.5 - 4.9 | [facility] | | | | performed at [facility];[address] | mmol/L | LABORATORY | | | | [address];[place] | | | | | | [address] | | | | + + + + + + + + | Specimen | + + | Blood | + + + + + + + | Performing | Address | City/State/Zipcode | Phone Number | | Organization | | | | + + + + + | [facility] | [address] | [place] [address] | [phone] | + + + + + Magnesium (10/14/2019 3:28 PM PDT) + + + + + + | Component | Value | Ref Range | Performed | Pathologist | | | | | At | Signature | + + + + + + | Magnesium | 2.1Comment: Testing | 1.7 - 2.4 mg/dL | [facility] | | | | performed at [facility];[address] | | LABORATORY | | | | [address];[place], [place] | | | | | | [address] | | | | + + + + + + + + | Specimen | + + | Blood | + + + + + + + | Performing | Address | City/State/Zipcode | Phone Number | | Organization | | | | + + + + + | [facility] | [address] | [place] [address] | [phone] | + + + + + Phosphorus (10/14/2019 3:28 PM PDT) + + + + + + | Component | Value | Ref Range | Performed | Pathologist | | | | | At | Signature | + + + + + + | Phosphorus | 1.3 (L)Comment: Testing | 2.3 - 4.8 mg/dL | [facility] | | | | performed at [facility];[address] | | LABORATORY | | | | [facility] [address];[place], [place] | | | | | | [address] | | | | + + + + + + + + | Specimen | + + | Blood | + + + + + + + | Performing | Address | City/State/Zipcode | Phone Number | | Organization | | | | + + + + + | [facility] | [address] | [place] [address] | [phone] | + + + + + CBC [...] | 10.5Comment: NO NORMAL | fl | [facility] | | | | RANGE ESTABLISHEDTesting | | LABORATORY | | | | performed at [facility], [address] | | | | | [address], | | | | | | [place] [address] | | | | + + + + + + + + | Specimen | + + | Blood | + + + + + + + | Performing | Address | City/State/Zipcode | Phone Number | | Organization | | | | + + + + + | [facility] | [address] | [place] [address] | [phone] | + + + + + Magnesium (10/14/2019 5:49 AM PDT) + + + + + + | Component | Value | Ref Range | Performed | Pathologist | | | | | At | Signature | + + + + + + | Magnesium | 1.6 (L)Comment: Testing | 1.7 - 2.4 mg/dL | [facility] | | | | performed at [facility];[address] | | LABORATORY | | | | [address] [facility] [address];[place], [place] | | | | | | [address] | | | | + + + + + + + + | Specimen | + + | Blood | + + + + + + + | Performing | Address | City/State/Zipcode | Phone Number | | Organization | | | | + + + + + | [facility] | [address] | [place] [address] | [phone] | + + + + + Basic [...] | >60Comment: GFR <60: | >60 | [facility] | | | GFR | [...] | | | | | performed at [facility], [address] | | | | | | [facility], | | | | | | [place] [address] | | | | + + + + + + + + | Specimen | + + | Blood | + + + + + + + | Performing | Address | City/State/Zipcode | Phone Number | | Organization | | | | + + + + + | [facility] LABORATORY | [address] | [place] [address] | [phone] | + + + + + Potassium (10/13/2019 11:07 AM PDT) + + + + + + | Component | Value | Ref Range | Performed | Pathologist | | | | | At | Signature | + + + + + + | K | 3.5Comment: Testing | 3.5 - 4.9 | [facility] | | | | performed at [facility];888 | mmol/L | LABORATORY | | | | [address];[place] | | | | | | [address] | | | | + + + + + + + + | Specimen | + + | Blood | + + + + + + + | Performing | Address | City/State/Zipcode | Phone Number | | Organization | | | | + + + + + | [facility] | [address] | [place] [address] | [phone] | + + + + + Potassium (10/13/2019 4:37 AM PDT) + + + + + + | Component | Value | Ref Range | Performed | Pathologist | | | | | At | Signature | + + + + + + | K | 3.5Comment: Testing | 3.5 - 4.9 | [facility] | | | | performed at [facility];888 | mmol/L | LABORATORY | | | | [address];[place], [place] | | | | | | [address] | | | | + + + + + + + + | Specimen | + + | Blood | + + + + + + + | Performing | Address | City/State/Zipcode | Phone Number | | Organization | | | | + + + + + | [facility] | [address] | [place] [address] | [phone] | + + + + + Magnesium (10/13/2019 4:37 AM PDT) + + + + + + | Component | Value | Ref Range | Performed | Pathologist | | | | | At | Signature | + + + + + + | Magnesium | 1.7Comment: Testing | 1.7 - 2.4 mg/dL | [facility] | | | | performed at [facility] | | LABORATORY | | | | [address];[place] | | | | | | [address] | | | | + + + + + + + + | Specimen | + + | Blood | + + + + + + + | Performing | Address | City/State/Zipcode | Phone Number | | Organization | | | | + + + + + | [facility] | [address] | [place] [address] | [phone] | + + + + + Basic [...] | >60Comment: GFR <60: | >60 | [facility] | | | GFR | [...] | | | | | | MDRD [facility] traceable | | | | | | equation.Testing | | | | | | performed at [facility];[address] | | | | | | [facility];[place], [place] | | | | | | [address] | | | | + + + + + + + + | Specimen | + + | Blood | + + + + + + + | Performing | Address | City/State/Zipcode | Phone Number | | Organization | | | | + + + + + | [facility] | [address] | [place] [address] | [phone] | + + + + + Hemoglobin [...] [facility] | | | | performed at [facility];[address] | | LABORATORY | | | | [address];[place], [place] | | | | | | [address] | | | | + + + + + + + + | Specimen | + + | Blood | + + + + + + + | Performing | Address | City/State/Zipcode | Phone Number | | Organization | | | | + + + + + | [facility] | [address] | [place] [address] | [phone] | + + + + + Potassium (10/12/2019 4:28 PM PDT) + + + + + + | Component | Value | Ref Range | Performed | Pathologist | | | | | At | Signature | + + + + + + | K | 3.3 (L)Comment: Testing | 3.5 - 4.9 | [facility] | | | | performed at [facility];888 | mmol/L | LABORATORY | | | | [address];[place] | | | | | | [address] | | | | + + + + + + + + | Specimen | + + | Blood | + + + + + + + | Performing | Address | City/State/Zipcode | Phone Number | | Organization | | | | + + + + + | [facility] | [address] | [place] [address] | [phone] | + + + + + Clostridium [...] C. | Negative for toxigenic | | [facility] | | | difficile, | C.difficile.Comment: | | LABORATORY | | | Interp | Testing performed at | | | | | | [facility];[address] | | | | | | [address];[place] [address] | | | | + + + + + + + + | Specimen | + + | Stool - Stool | | specimen (specimen) | + + + + + + + | Performing | Address | City/State/Zipcode | Phone Number | | Organization | | | | + + + + + | [facility] | [address] | [place] [address] | [phone] | + + + + + Potassium (10/12/2019 11:02 AM PDT) + + + + + + | Component | Value | Ref Range | Performed | Pathologist | | | | | At | Signature | + + + + + + | K | 3.3 (L)Comment: Testing | 3.5 - 4.9 | [facility] | | | | performed at [facility];888 | mmol/L | LABORATORY | | | | [address];[place], [place] | | | | | | [address] | | | | + + + + + + + + | Specimen | + + | Blood | + + + + + + + | Performing | Address | City/State/Zipcode | Phone Number | | Organization | | | | + + + + + | [facility] | [address] | [place] [address] | [phone] | + + + + + Type [...] + + + | BB BAND | [id number] | | [facility] | | | | | | LABORATORY | | + + + + + + | UNIT # | [id number] | | [facility] | | | | [...] | | | RESULT | performed at [facility] | | LABORATORY | | | | [address];[place], [place] | | | | | | [address] | | | | + + + + + + | UNIT # | [id number] | | [facility] | | | | [...] | + + + + + | [facility] | [address] | [place] [address] | [phone] | + + + + + Red [...] | KT | | | COMMENT | [facility];[address] [facility] | | LABORATORY | | | | Blvd;[place] [address] | | | | + + + + + + + + | Specimen | + + | | + + + + + + + | Performing | Address | City/State/Zipcode | Phone Number | | Organization | | | | + + + + + | [facility] | [address] | [place] [address] | [phone] | + + + + + Magnesium (10/12/2019 4:08 AM PDT) + + + + + + | Component | Value | Ref Range | Performed | Pathologist | | | | | At | Signature | + + + + + + | Magnesium | 1.9Comment: Testing | 1.7 - 2.4 mg/dL | [facility] | | | | performed at [facility];[address] | | LABORATORY | | | | [address];[place] | | | | | | [address] | | | | + + + + + + + + | Specimen | + + | Blood | + + + + + + + | Performing | Address | City/State/Zipcode | Phone Number | | Organization | | | | + + + + + | [facility] | [address] | [place] [address] | [phone] | + + + + + Comprehensive [...] 37 | 10 - 65 U/L | [facility] | | | | | | LABORATORY | | + + + + + + | Estimated | >60Comment: GFR <60: | >60 | [facility] | | | GFR | [...] | | | | | performed at [facility] | | | | | | [facility];[place], [place] | | | | | | [address] | | | | + + + + + + + + | Specimen | + + | Blood | + + + + + + + | Performing | Address | City/State/Zipcode | Phone Number | | Organization | | | | + + + + + | [facility] | [address] | [place] [address] | [phone] | + + + + + CBC [...] | [facility] | | | | NURSING [id number],TONJA H | g/dL | LABORATORY | | [...] | [facility] | | | | NURSING [id number] | | LABORATORY | | | | [...] LABORATORY | | | | performed at [facility];[address] | | | | | | [address];[place] | | | | | | [address] | | | | + + + + + + + + | Specimen | + + | Blood | + + + + + + + | Performing | Address | City/State/Zipcode | Phone Number | | Organization | | | | + + + + + | [facility] | [address] | [place] [address] | [phone] | + + + + + Urinalysis [...] - 1.030 | [facility] | | | Transfer, | | | LABORATORY | | | [...] Bacteria, | NONE SEENComment: | NONE | [facility] | | | Urine | Testing performed at | | LABORATORY | | | | [facility], [address] [facility] | | | | | | [place] | | | | | | [address] | | | | + + + [...] | + + + + + | [facility] | [address] | [place] [address] | [phone] | + + + + + Osmolality, [...] | | | | | [place] [address] | | | | + + + [...] | + + + + + | [facility] | [address] | [place] [address] | [phone] | + + + + + Culture, [...] Special | Testing performed at | | [facility] | | | Requests | [facility];[address] | | LABORATORY | | | | [address];[place] [address] | | | | + + + + + + | RESULT | NO GROWTH 6 DAYS | | [facility] | | | | | | LABORATORY | | + + + + + + | RESULT | Testing performed at | | [facility] | | | | [facility], [address] [facility] | | LABORATORY | | | | [place] | | | | | | [address]Zyngeaq: Testing | | | | | | performed at [facility], [address] | | | | | | [address], [place] | | | | | | [address] | | | | + + + + + + + + | Specimen | + + | Blood - Swab of line | | insertion site | | (specimen) | + + + + + + + | Performing | Address | City/State/Zipcode | Phone Number | | Organization | | | | + + + + + | [facility] | [address] | [place] [address] | [phone] | + + + + + XR [...] Procedure Note | + + | Espinoza, [id number] - 10/11/2019 10:42 AM PDT | | [...] Special | Testing performed at | | [facility] | | | Requests | [facility];[address] | | LABORATORY | | | | [address];[place] [address] | | | | + + + + + + | RESULT | NO GROWTH 6 DAYS | | [facility] | | | | | | LABORATORY | | + + + + + + | RESULT | Testing performed at | | [facility] | | | | [facility], [address] [facility] | | LABORATORY | | | | [place] | | | | | | [address]Nfeuxse: Testing | | | | | | performed at [facility], [address] | | | | | | [place] | | | | | | [address] [...] | + + + + + | [facility] | [address] | [place] [address] | [phone] | + + + + + Sodium (10/11/2019 9:30 AM PDT) + + + + + + | Component | Value | Ref Range | Performed | Pathologist | | | | | At | Signature | + + + + + + | Na | 127 (L)Comment: Testing | 135 - 145 | [facility] | | | | performed at [facility];888 | mmol/L | LABORATORY | | | | [address];[place] | | | | | | [address] | | | | + + + + + + + + | Specimen | + + | Blood | + + + + + + + | Performing | Address | City/State/Zipcode | Phone Number | | Organization | | | | + + + + + | [facility] | [address] | [place] [address] | [phone] | + + + + + Osmolality, [...] | | | | | [place] [address] | | | | + + + + + + + + | Specimen | + + | Blood | + + + + + + + | Performing | Address | City/State/Zipcode | Phone Number | | Organization | | | | + + + + + | [facility] | [address] | [place] [address] | [phone] | + + + + + Comprehensive [...] | >60Comment: GFR <60: | >60 | [facility] | | | GFR | [...] | | | | | performed at [facility] | | | | | | [facility];[place], [place] | | | | | | [address] | | | | + + + + + + + + | Specimen | + + | Blood | + + + + + + + | Performing | Address | City/State/Zipcode | Phone Number | | Organization | | | | + + + + + | [facility] | [address] | [place] [address] | [phone] | + + + + + CBC [...] LABORATORY | | | | performed at [facility];[address] | | | | | | [address];[place] | | | | | | [address] | | | | + + + + + + + + | Specimen | + + | Blood | + + + + + + + | Performing | Address | City/State/Zipcode | Phone Number | | Organization | | | | + + + + + | [facility] | [address] | [place] [address] | [phone] | + + + + + Comprehensive [...] | | | | | performed at [facility] | | | | | | [facility];[place], [place] | | | | | | [address] | | | | + + + + + + + + | Specimen | + + | Blood | + + + + + + + | Performing | Address | City/State/Zipcode | Phone Number | | Organization | | | | + + + + + | [facility] | [address] | [place] [address] | [phone] | + + + + + Magnesium (10/10/2019 4:16 AM PDT) + + + + + + | Component | Value | Ref Range | Performed | Pathologist | | | | | At | Signature | + + + + + + | Magnesium | 1.8Comment: Testing | 1.7 - 2.4 mg/dL | [facility] | | | | performed at [facility];[address] | | LABORATORY | | | | [address];[place] | | | | | | [address] | | | | + + + + + + + + | Specimen | + + | Blood | + + + + + + + | Performing | Address | City/State/Zipcode | Phone Number | | Organization | | | | + + + + + | [facility] | [address] | [place] [address] | [phone] | + + + + + CBC [...] | | | Absolute | performed at [facility];[address] | K/uL | LABORATORY | | | | [facility];[place] | | | | | | [address] | | | | + + + + + + + + | Specimen | + + | Blood | + + + + + + + | Performing | Address | City/State/Zipcode | Phone Number | | Organization | | | | + + + + + | [facility] | [address] | [place] [address] | [phone] | + + + + + Lactic Acid (10/09/2019 5:12 AM PDT) + + + + + + | Component | Value | Ref Range | Performed | Pathologist | | | | | At | Signature | + + + + + + | Lactate, | 1.8Comment: Testing | 0.4 - 2.0 | [facility] | | | Serum | performed at [facility];888 | mmol/L | LABORATORY | | | | [address];[place], [place] | | | | | | [address] | | | | + + + + + + + + | Specimen | + + | Blood | + + + + + + + | Performing | Address | City/State/Zipcode | Phone Number | | Organization | | | | + + + + + | [facility] | [address] | [place] [address] | [phone] | + + + + + Comprehensive [...] | | | | | performed at [facility];[address] | | | | | | [address] [facility];[place], [place] | | | | | | [address] | | | | + + + + + + + + | Specimen | + + | Blood | + + + + + + + | Performing | Address | City/State/Zipcode | Phone Number | | Organization | | | | + + + + + | [facility] | [address] | [place] [address] | [phone] | + + + + + Procalcitonin [...] | | | | | | at [facility];[address] | | | | | | [address];[place] [address] | | | | + + + + + + + + | Specimen | + + | Blood | + + + + + + + | Performing | Address | City/State/Zipcode | Phone Number | | Organization | | | | + + + + + | [facility] | [address] | [place] [address] | [phone] | + + + + + Phosphorus (10/09/2019 5:10 AM PDT) + + + + + + | Component | Value | Ref Range | Performed | Pathologist | | | | | At | Signature | + + + + + + | Phosphorus | 4.0Comment: Testing | 2.3 - 4.8 mg/dL | [facility] | | | | performed at [facility] | | LABORATORY | | | | [facility];[place], [place] | | | | | | [address] | | | | + + + + + + + + | Specimen | + + | Blood | + + + + + + + | Performing | Address | City/State/Zipcode | Phone Number | | Organization | | | | + + + + + | [facility] | [address] | [place] [address] | [phone] | + + + + + Magnesium (10/09/2019 5:10 AM PDT) + + + + + + | Component | Value | Ref Range | Performed | Pathologist | | | | | At | Signature | + + + + + + | Magnesium | 1.7Comment: Testing | 1.7 - 2.4 mg/dL | [facility] | | | | performed at [facility];[address] | | LABORATORY | | | | [address];[place] | | | | | | [address] | | | | + + + + + + + + | Specimen | + + | Blood | + + + + + + + | Performing | Address | City/State/Zipcode | Phone Number | | Organization | | | | + + + + + | [facility] | [address] | [place] [address] | [phone] | + + + + + CBC [...] Comment | SLIDE SCANNED, AGREES | | [facility] | | | | WITH AUTOMATED | | LABORATORY | | | | RESULTS.Comment: Testing | | | | | | performed at [facility];[address] | | | | | | [address];[place] | | | | | | [address] | | | | + + + + + + + + | Specimen | + + | Blood | + + + + + + + | Performing | Address | City/State/Zipcode | Phone Number | | Organization | | | | + + + + + | [facility] | [address] | [place] [address] | [phone] | + + + + + POC [...] | | | POC | performed at [facility];[address] | | LABORATORY | | | | [address] [facility];[place], [place] | | | | | | [address] | | | | + + + + + + + + | Specimen | + + | | + + + + + + + | Performing | Address | City/State/Zipcode | Phone Number | | Organization | | | | + + + + + | [facility] | [address] | [place] [address] | [phone] | + + + + + Phosphorus (10/08/2019 5:23 PM PDT) + + + + + + | Component | Value | Ref Range | Performed | Pathologist | | | | | At | Signature | + + + + + + | Phosphorus | 3.4Comment: Testing | 2.3 - 4.8 mg/dL | [facility] | | | | performed at [facility];[address] | | LABORATORY | | | | [address];[place] | | | | | | [address] | | | | + + + + + + + + | Specimen | + + | Blood | + + + + + + + | Performing | Address | City/State/Zipcode | Phone Number | | Organization | | | | + + + + + | [facility] | [address] | [place] [address] | [phone] | + + + + + Magnesium (10/08/2019 5:23 PM PDT) + + + + + + | Component | Value | Ref Range | Performed | Pathologist | | | | | At | Signature | + + + + + + | Magnesium | 1.8Comment: Testing | 1.7 - 2.4 mg/dL | [facility] | | | | performed at [facility];[address] | | LABORATORY | | | | [address];[place] | | | | | | [address] | | | | + + + + + + + + | Specimen | + + | Blood | + + + + + + + | Performing | Address | City/State/Zipcode | Phone Number | | Organization | | | | + + + + + | [facility] | [address] | [place] [address] | [phone] | + + + + + CBC with Differential (10/08/2019 5:23 PM PDT) + + + + + + | Component | Value | Ref Range | Performed | Pathologist | | | | | At | Signature | + + + + + + | WBC | 26.78 (H) | 3.80 - 11.00 | [facility] | | | | | [...] at | | | | | | [facility];[address] [place] [address] | | | | | | [facility];[place] [address] | | | | + + + + + + + + | Specimen | + + | Blood | + + + + + + + | Performing | Address | City/State/Zipcode | Phone Number | | Organization | | | | + + + + + | [facility] | [address] | [place] [address] | [phone] | + + + + + Basic [...] | >60Comment: GFR <60: | >60 | [facility] | | | GFR | [...] | | | | | | MDRD [facility] traceable | | | | | | equation.Testing | | | | | | performed at [facility] | | | | | | [facility];[place], [place] | | | | | | [address] | | | | + + + + + + + + | Specimen | + + | Blood | + + + + + + + | Performing | Address | City/State/Zipcode | Phone Number | | Organization | | | | + + + + + | [facility] | [address] | [place] [address] | [phone] | + + + + + PTT (10/08/2019 5:23 PM PDT) + + + + + + | Component | Value | Ref Range | Performed | Pathologist | | | | | At | Signature | + + + + + + | PTT | 32Comment: Testing | 23 - 32 seconds | [facility] | | | | performed at [facility];[address] | | LABORATORY | | | | [address];[place] | | | | | | [address] | | | | + + + + + + + + | Specimen | + + | Blood | + + + + + + + | Performing | Address | City/State/Zipcode | Phone Number | | Organization | | | | + + + + + | [facility] | [address] | [place] [address] | [phone] | + + + + + POC [...] (L)Comment: Testing | 13.7 - 16.7 | [facility] | | | POC | performed at [facility];[address] | g/dL | LABORATORY | | | | [address];[place], [place] | | | | | | [address] | | | | + + + + + + + + | Specimen | + + | | + + + + + + + | Performing | Address | City/State/Zipcode | Phone Number | | Organization | | | | + + + + + | [facility] | [address] | [place] [address] | [phone] | + + + + + POC [...] | | | POC | performed at [facility];888 | g/dL | LABORATORY | | | | [address];[place], [place] | | | | | | [address] | | | | + + + + + + + + | Specimen | + + | | + + + + + + + | Performing | Address | City/State/Zipcode | Phone Number | | Organization | | | | + + + + + | [facility] | [address] | [place] [address] | [phone] | + + + + + Basic [...] | | | | | performed at [facility], [address] | | | | | | [facility], | | | | | | [place] [address] | | | | + + + + + + + + | Specimen | + + | Blood | + + + + + + + | Performing | Address | City/State/Zipcode | Phone Number | | Organization | | | | + + + + + | [facility] | [address] | [place] [address] | [phone] | + + + + + CBC [...] | | | Absolute | performed at [facility], [address] | K/uL | LABORATORY | | | | [address], | | | | | | [place] [address] | | | | + + + + + + + + | Specimen | + + | Blood | + + + + + + + | Performing | Address | City/State/Zipcode | Phone Number | | Organization | | | | + + + + + | [facility] | [address] | [place] [address] | [phone] | + + + + + Magnesium (10/08/2019 5:44 AM PDT) + + + + + + | Component | Value | Ref Range | Performed | Pathologist | | | | | At | Signature | + + + + + + | Magnesium | 1.6 (L)Comment: Testing | 1.7 - 2.4 mg/dL | [facility] | | | | performed at [facility];[address] | | LABORATORY | | | | [address];[place], [place] | | | | | | [address] | | | | + + + + + + + + | Specimen | + + | Blood | + + + + + + + | Performing | Address | City/State/Zipcode | Phone Number | | Organization | | | | + + + + + | [facility] | [address] | [place] [address] | [phone] | + + + + + PTT (10/07/2019 5:21 PM PDT) + + + + + + | Component | Value | Ref Range | Performed | Pathologist | | | | | At | Signature | + + + + + + | PTT | 28Comment: Testing | 23 - 32 seconds | [facility] | | | | performed at [facility];[address] | | LABORATORY | | | | [address];[place] | | | | | | [address] | | | | + + + + + + + + | Specimen | + + | Blood - Artery, | | Radial, Right | + + + + + + + | Performing | Address | City/State/Zipcode | Phone Number | | Organization | | | | + + + + + | [facility] | [address] | [place] [address] | [phone] | + + + + + Protime INR (10/07/2019 5:21 PM PDT) + + + + + + | Component | Value | Ref Range | Performed | Pathologist | | | | | At | Signature | + + + + + + | INR | 1.3Comment: REFERENCE | | [facility] | | | | RANGE:0.9 [...] | | | | | performed at [facility];[address] | | | | | | [facility];[place], [place] | | | | | | [address] | | | | + + + + + + + + | Specimen | + + | Blood - Artery, | | Radial, Right | + + + + + + + | Performing | Address | City/State/Zipcode | Phone Number | | Organization | | | | + + + + + | [facility] | [address] | [place] [address] | [phone] | + + + + + Basic [...] | | | | | performed at [facility];[address] | | | | | | [facility];[place], [place] | | | | | | [address] | | | | + + + + + + + + | Specimen | + + | Blood - Artery, | | Radial, Right | + + + + + + + | Performing | Address | City/State/Zipcode | Phone Number | | Organization | | | | + + + + + | [facility] | [address] [facility] | [place] [address] | [phone] | + + + + + CBC [...] LABORATORY | | | | performed at [facility];[address] | | | | | | [address];[place] | | | | | | [address] | | | | + + + + + + + + | Specimen | + + | Blood - Right upper | | arm structure (body | | structure) | + + + + + + + | Performing | Address | City/State/Zipcode | Phone Number | | Organization | | | | + + + + + | [facility] | [address] | [place] [address] | [phone] | + + + + + Surgical [...] attached red-white | | | fibromembranous tissue. Supervisor Remelt sections are submitted in | | | [...] | LABORATORY:The technical component was performed by [facility] | | | [facility], [address] [place] [address] (Swatch Paster: | | | Asia Rodriguez MD; CLIA# [id number]).Professional interpretation was | | | performed by [facility] [address] | | | [place] [address] (Swatch Paster: Sol[employer] | | | Jacky Recio; CLIA#: [id number]). Diagnostician: Asia Rodriguez | | | MDPathologistElectronically Signed 10/10/2019 | | | | | |PERFORMING LABORATORY: | | |The technical component was performed by [facility], [address] [place] [address] (Swatch Paster: Asia Rodriguez MD; CLIA# [id number]). | | |[facility], [address] [place] [id number] (Swatch Paster: Solitario Recio M.D.; CLIA#: [id number]). | | | | | |Diagnostician: Asia [...] | | | POC | performed at [facility];[address] | g/dL | LABORATORY | | | | [address];[place], [place] | | | | | | [address] | | | | + + + + + + + + | Specimen | + + | | + + + + + + + | Performing | Address | City/State/Zipcode | Phone Number | | Organization | | | | + + + + + | [facility] | [address] | [place] [address] | [phone] | + + + + + Red [...] | ORDER RECEIVED IN BLOOD | | [facility] | | | COMMENT | BANK. | | LABORATORY | | + + + + + + | BLOOD BANK | Testing performed at | | [facility] | | | COMMENT | [facility];[address] | | LABORATORY | | | | [address];[place] [address] | | | | + + + + + + + + | Specimen | + + | | + + + + + + + | Performing | Address | City/State/Zipcode | Phone Number | | Organization | | | | + + + + + | [facility] | [address] | [place] [address] | [phone] | + + + + + POC [...] | | | POC | performed at [facility];[address] | g/dL | LABORATORY | | | | [address];[place], [place] | | | | | | [address] | | | | + + + + + + + + | Specimen | + + | | + + + + + + + | Performing | Address | City/State/Zipcode | Phone Number | | Organization | | | | + + + + + | [facility] | [address] | [place] [address] | [phone] | + + + + + POC [...] | | | POC | performed at [facility];[address] | g/dL | LABORATORY | | | | [address];[place], [place] | | | | | | [address] | | | | + + + + + + + + | Specimen | + + | | + + + + + + + | Performing | Address | City/State/Zipcode | Phone Number | | Organization | | | | + + + + + | [facility] | [address] | [place] [address] | [phone] | + + + + + POC [...] 14.3Comment: Testing | 13.7 - 16.7 | [facility] | | | POC | performed at [facility];[address] | g/dL | LABORATORY | | | | [address];[place], [place] | | | | | | [address] | | | | + + + + + + + + | Specimen | + + | | + + + + + + + | Performing | Address | City/State/Zipcode | Phone Number | | Organization | | | | + + + + + | [facility] | [address] | [place] [address] | [phone] | + + + + + Red [...] BANK | Testing performed at | | [facility] | | | COMMENT | [facility];[address] | | LABORATORY | | | | [address];[place] [address] | | | | + + + + + + + + | Specimen | + + | | + + + + + + + | Performing | Address | City/State/Zipcode | Phone Number | | Organization | | | | + + + + + | [facility] | [address] | [place] [address] | [phone] | + + + + + Magnesium (10/07/2019 3:55 AM PDT) + + + + + + | Component | Value | Ref Range | Performed | Pathologist | | | | | At | Signature | + + + + + + | Magnesium | 1.6 (L)Comment: Testing | 1.7 - 2.4 mg/dL | [facility] | | | | performed at [facility] | | LABORATORY | | | | [address];[place], [place] | | | | | | [address] | | | | + + + + + + + + | Specimen | + + | Blood | + + + + + + + | Performing | Address | City/State/Zipcode | Phone Number | | Organization | | | | + + + + + | [facility] | [address] | [place] [address] | [phone] | + + + + + Type [...] + + + | BB BAND | [address] | | [facility] | | | | | | LABORATORY | | + + + + + + | UNIT # | [id number] | | [facility] | | | | [...] + + + | UNIT # | [id number] | | [facility] | | | | [...] + + + | UNIT # | [id number] | | [facility] | | | | [...] + + + | UNIT # | [id number] | | [facility] | | | | [...] | | | RESULT | performed at [facility];[address] | | LABORATORY | | | | [address];[place], [place] | | | | | | [address] | | | | + + + + + + + + | Specimen | + + | Blood | + + + + + + + | Performing | Address | City/State/Zipcode | Phone Number | | Organization | | | | + + + + + | [facility] | [address] | [place] [address] | [phone] | + + + + + Basic [...] | | | | | performed at [facility];[address] | | | | | | [facility];[place], [place] | | | | | | [address] | | | | + + + + + + + + | Specimen | + + | Blood | + + + + + + + | Performing | Address | City/State/Zipcode | Phone Number | | Organization | | | | + + + + + | [facility] | [address] | [place] [address] | [phone] | + + + + + CBC [...] | | | Absolute | performed at [facility];[address] | K/uL | LABORATORY | | | | [address];[place] | | | | | | [address] | | | | + + + + + + + + | Specimen | + + | Blood | + + + + + + + | Performing | Address | City/State/Zipcode | Phone Number | | Organization | | | | + + + + + | [facility] | [address] | [place] [address] | [phone] | + + + + + Magnesium (10/06/2019 6:27 AM PDT) + + + + + + | Component | Value | Ref Range | Performed | Pathologist | | | | | At | Signature | + + + + + + | Magnesium | 1.6 (L)Comment: Testing | 1.7 - 2.4 mg/dL | [facility] | | | | performed at [facility];[address] | | LABORATORY | | | | [address];[place] | | | | | | [address] | | | | + + + + + + + + | Specimen | + + | Blood | + + + + + + + | Performing | Address | City/State/Zipcode | Phone Number | | Organization | | | | + + + + + | [facility] | [address] | [place] [address] | [phone] | + + + + + Basic [...] | | | | | performed at [facility], [address] | | | | | | [facility] [address], | | | | | | [place] [address] | | | | + + + + + + + + | Specimen | + + | Blood | + + + + + + + | Performing | Address | City/State/Zipcode | Phone Number | | Organization | | | | + + + + + | [facility] | [address] | [place] [address] | [phone] | + + + + + CBC [...] | | | Absolute | performed at [facility], [address] | K/uL | LABORATORY | | | | [facility], | | | | | | [place] [address] | | | | + + + + + + + + | Specimen | + + | Blood | + + + + + + + | Performing | Address | City/State/Zipcode | Phone Number | | Organization | | | | + + + + + | [facility] | [address] | [place] [address] | [phone] | + + + + + Magnesium (10/05/2019 5:02 AM PDT) + + + + + + | Component | Value | Ref Range | Performed | Pathologist | | | | | At | Signature | + + + + + + | Magnesium | 1.7Comment: Testing | 1.7 - 2.4 mg/dL | [facility] | | | | performed at [facility];[address] | | LABORATORY | | | | [address];[place] | | | | | | [address] | | | | + + + + + + + + | Specimen | + + | Blood | + + + + + + + | Performing | Address | City/State/Zipcode | Phone Number | | Organization | | | | + + + + + | [facility] | [address] | [place] [address] | [phone] | + + + + + Basic [...] | | | | | | [facility]D [facility] traceable | | | | | | equation.Testing | | | | | | performed at [facility], [address] | | | | | | [facility], | | | | | | [place] [address] | | | | + + + + + + + + | Specimen | + + | Blood | + + + + + + + | Performing | Address | City/State/Zipcode | Phone Number | | Organization | | | | + + + + + | [facility] | [address] | [place] [address] | [phone] | + + + + + CBC [...] | | | Absolute | performed at [facility], [address] | K/uL | LABORATORY | | | | [address], | | | | | | [place] [address] | | | | + + + + + + + + | Specimen | + + | Blood | + + + + + + + | Performing | Address | City/State/Zipcode | Phone Number | | Organization | | | | + + + + + | [facility] | [address] | [place] [address] | [phone] | + + + + + ECHO [...] | Procedure Note | + + | [facility], [id number] - 10/04/2019 12:10 PM PDT | | [...] [facility] | | | | performed at [facility] | | LABORATORY | | | | [address];[place] | | | | | | [address] | | | | + + + + + + + + | Specimen | + + | Tissue - Both | | anterior nares (body | | structure) | + + + + + + + | Performing | Address | City/State/Zipcode | Phone Number | | Organization | | | | + + + + + | [facility] | [address] | [place] [address] | [phone] | + + + + + Protime [...] | | | | | performed at [facility];[address] | | | | | | [address];[place] | | | | | | [address] | | | | + + + + + + + + | Specimen | + + | Blood | + + + + + + + | Performing | Address | City/State/Zipcode | Phone Number | | Organization | | | | + + + + + | [facility] | [address] | [place] [address] | [phone] | + + + + + Uric Acid (10/04/2019 4:26 AM PDT) + + + + + + | Component | Value | Ref Range | Performed | Pathologist | | | | | At | Signature | + + + + + + | Uric Acid | 3.2Comment: Testing | 3.2 - 8.6 mg/dL | [facility] | | | | performed at [facility], [address] | | LABORATORY | | | | [facility], | | | | | | [place] [address] | | | | + + + + + + + + | Specimen | + + | Blood | + + + + + + + | Performing | Address | City/State/Zipcode | Phone Number | | Organization | | | | + + + + + | [facility] | [address] | [place] [address] | [phone] | + + + + + Lipid [...] | | | Calculated | performed at [facility], [address] | | LABORATORY | | | | [address], | | | | | | [place] [address] | | | | + + + + + + + + | Specimen | + + | Blood | + + + + + + + | Performing | Address | City/State/Zipcode | Phone Number | | Organization | | | | + + + + + | [facility] | [address] | [place] [address] | [phone] | + + + + + Comprehensive [...] | | | | | | MDRD [facility] traceable | | | | | | equation.Testing | | | | | | performed at [facility], [address] | | | | | | [facility], | | | | | | [place] [address] | | | | + + + + + + + + | Specimen | + + | Blood | + + + + + + + | Performing | Address | City/State/Zipcode | Phone Number | | Organization | | | | + + + + + | [facility] | [address] | [place] [address] | [phone] | + + + + + CBC [...] | | | Absolute | performed at [facility], [address] | K/uL | LABORATORY | | | | [address], | | | | | | [place] [address] | | | | + + + + + + + + | Specimen | + + | Blood | + + + + + + + | Performing | Address | City/State/Zipcode | Phone Number | | Organization | | | | + + + + + | [facility] | [address] | [place] [address] | [phone] | + + + + + Coronavirus (COVID-19) NAASerenity (10/04/2019 12:49 AM PDT) + + + + + + | Component | Value | Ref Range | Performed | Pathologist | | | | | At | Signature | + + + + + + | SARS-CoV-2, | NEGATIVEComment: This | NEG | [facility] | | | NAAT | [...] | | | | | performed at [facility] | | | | | | [facility];[place], [place] | | | | | | [address] | | | | + + + + + + + + | Specimen | + + | Tissue - Entire | | nasopharynx (body | | structure) | + + + + + + + | Performing | Address | City/State/Zipcode | Phone Number | | Organization | | | | + + + + + | [facility] | [address] | [place] [address] | [phone] | + + + + + ECG [...] | | | | ELLA HART MD ([id number]) | | | | | | on [...] | | KT | | | | [facility];[address] | | LABORATORY | | | | [address];[place] [address] | | | | + + + + + + + + | Specimen | + + | Blood | + + + + + + + | Performing | Address | City/State/Zipcode | Phone Number | | Organization | | | | + + + + + | [facility] | [address] | [place] [address] | [phone] | + + + + + Comprehensive [...] | | | | | performed at [facility];[address] | | | | | | [address];[place] | | | | | | [address] | | | | + + + + + + + + | Specimen | + + | Blood | + + + + + + + | Performing | Address | City/State/Zipcode | Phone Number | | Organization | | | | + + + + + | [facility] | [address] [facility] | [place] [address] | [phone] | + + + + + CBC [...] | | | Absolute | performed at [facility];[address] | K/uL | LABORATORY | | | | [address];[place], [place] | | | | | | [address] | | | | + + + + + + + + | Specimen | + + | Blood | + + + + + + + | Performing | Address | City/State/Zipcode | Phone Number | | Organization | | | | + + + + + | [facility] | [address] | [place] [address] | [phone] | + + + + + documented [...] | | | | | | longer, tlflzq-csv-zfgyi use of | | | | | [...] | | | | | | | lrhpdr-nhd-ldlgw use of at least | | | [...] PRN, Hemorrhoidal | | | Pain, Starting [facility] 10/05/19 at 1227 | | + [...] | | | | | | | zydbhc-mbx-gaqvp use of at least | | | [...]
--- OUTSIDE RECORDS SUMMARY | ~2019-11-02 | XMS | Encounter Summary ---
Demographics + + + | Address | [address] | | | [place] [address] | + + + | Home Phone [...] + + + | Author | [facility] [employer] [facility] | + + + | Organization | [facility] [employer] [facility] | + + [...] Providers + +------+ + | Care Senior Manufacturing Test Engineer Name | Role | Phone | + [...] [address] | | | | | [place] | [place] | | | | | [address] | [address] | | | | | [phone] | [phone] | | | | | | | [...] DEPARTMENT OF | [address] | [place] [address] | | | PATHOLOGY | [address] | | | + + + + + | [facility] DEPARTMENT OF | [address] | [place] [address] | | | PATHOLOGY | [address] [...] DEPARTMENT OF | [address] | [place] [address] | | | PATHOLOGY | [address] | | | + + + + + | [facility] DEPARTMENT OF | [address] | [place] [address] | | | PATHOLOGY | [address] [...] + | [facility] DEPARTMENT OF | [address] [facility] | [place] [address] | | | PATHOLOGY | [address] | | | + + + + + | [facility] DEPARTMENT OF | [address] [facility] | [place] [address] | | | PATHOLOGY | [address] [...] | + + + + + | [facility] DEPARTMENT OF | [address] | [place] [address] | | | PATHOLOGY | [address] | | | + + + + + | [facility] DEPARTMENT OF | [address] | [place] [address] | | | PATHOLOGY | [address] [...] | + + + + + | [facility] OF | [address] | [place] [address] | | | PATHOLOGY | [address] | | | + + + + + | [facility] | [facility] [address] | [place] [address] | | | PATHOLOGY | [address] [...] | + + + + + | [facility] DEPARTMENT OF | [address] | [place] [address] | | | PATHOLOGY | [address] | | | + + + + + | [facility] DEPARTMENT OF | [address] | [place] [address] | | | PATHOLOGY | [address] | | | + + + + + PHOSPHORUS, PLASMA (05/01/2007 2:10 AM PST) + +-------+ + + + | Component | Value | Ref Range | Performed | Pathologist | | | | | At | Signature | + +-------+ + + + | PHOSPHORUS, | 3.0 | 2.4 - 4.7 mg/dL | [facility] | | | PLASMA | [...] | + + + + + | [facility] DEPARTMENT | [address] [facility] | [place] [address] | | | PATHOLOGY | [address] | | | + + + + + | [facility] | [address] [place] [address] | [place] [address] | | | PATHOLOGY | [address] [...] | + + + + + | [facility] DEPARTMENT OF | [address] | [place] [address] | | | PATHOLOGY | [address] | | | + + + + + | [facility] DEPARTMENT OF | [address] | [place] [address] | | | PATHOLOGY | [address] [...] | + + + + + | [facility] DEPARTMENT OF | [address] | [place] [address] | | | PATHOLOGY | [address] | | | + + + + + | [facility] DEPARTMENT OF | [address] | [place] [address] | | | PATHOLOGY | [address] [...] | + + + + + | [facility] DEPARTMENT OF | [address] | [place] [address] | | | PATHOLOGY | [address] | | | + + + + + | [facility] DEPARTMENT OF | [address] | [place] [address] | | | PATHOLOGY | [address] [...] | + + + + + | [facility] DEPARTMENT OF | [address] | [place] [address] | | | PATHOLOGY | [address] | | | + + + + + | [facility] DEPARTMENT OF | [address] | [place] [address] | | | PATHOLOGY | [address] [...] | + + + + + | [facility] DEPARTMENT OF | [address] | [place] [address] | | | PATHOLOGY | [address] | | | + + + + + | [facility] DEPARTMENT OF | [address] | [place] [address] | | | PATHOLOGY | [address] [...] + + | [facility] DEPARTMENT OF | [address] | [place] [address] | | | PATHOLOGY | [address] | | | + + + + + | [facility] DEPARTMENT OF | [address] | [place] [address] | | | PATHOLOGY | [address] [...] | + + + + + | [facility] DEPARTMENT OF | [address] | [place] [address] | | | PATHOLOGY | [address] | | | + + + + + | [facility] DEPARTMENT OF | [address] | [place] [address] | | | PATHOLOGY | [address] [...] + | [facility] DEPARTMENT OF | [address] [facility] | [place] [address] | | | PATHOLOGY | [address] | | | + + + + + | [facility] DEPARTMENT OF | [address] [facility] | [place] [address] | | | PATHOLOGY | [address] [...] [facility] | [address] [facility] | [place] [address] | | | PATHOLOGY | [address] | | | + + + + + | [facility] | [address] [facility] | [place] [address] | | | PATHOLOGY | [address] [...] endograftPrimary | | | | | | brake repairer: Mickey, | | | | | | PederMDAssistant | | | | | | attending brake repairer: | | | | | | Rudolph [...] | | | | | | 1. 4-Nigerian pigtail | | | | | | [...] endograftOperation5. | | | | | | 5-Nigerian pigtail | | | | | | [...] | | | | | technique a 4-Nigerian | | | | | | pigtail [...] a | | | | | | 16-Nigerian sheath was | | | | | [...] | | | | | | the 16-Nigerian sheath and | | | | | [...] | | | | | | balloon. A5-Nigerian | | | | | | pigtail [...] | | + +---------+ + + | [facility] DEPARTMENT OF | | | [...] DEPARTMENT OF | [address] | [place] [address] | | | PATHOLOGY | [address] | | | + + + + + | [facility] DEPARTMENT OF | [address] | [place] [address] | | | PATHOLOGY | [address] | | | + + + + + PHOSPHORUS, PLASMA (04/30/2007 4:05 AM PST) + +-------+ + + + | Component | Value | Ref Range | Performed | Pathologist | | | | | At | Signature | + +-------+ + + + | PHOSPHORUS, | 2.9 | 2.4 - 4.7 mg/dL | [facility] | | | PLASMA | | | [...] [facility] | [address] | [place] [address] | | | PATHOLOGY | [address] | | | + + + + + | [facility] | [address] | [place] [address] | | | PATHOLOGY | [address] [...] | [facility] | [facility] | [place] [address] | | | PATHOLOGY | [address] | | | + + + + + | [facility] DEPARTMENT OF | [facility] | [place] [address] | | | PATHOLOGY | [address] [...] | + + + + + | [facility] DEPARTMENT OF | [address] | [place] [address] | | | PATHOLOGY | [address] | | | + + + + + | [facility] DEPARTMENT OF | [address] | [place] [address] | | | PATHOLOGY | [address] [...] [facility] | [address] [facility] | [place] [address] | | | PATHOLOGY | [address] | | | + + + + + | [facility] | [address] [facility] | [place] [address] | | | PATHOLOGY | [address] [...] the | | | | | | [place] and | | | | | [...] | | + +---------+ + + | [facility] DEPARTMENT OF | | | [...] the | | | | | | [place] and | | | | | [...] | | + +---------+ + + | [facility] DEPARTMENT OF | | | [...] | | + +---------+ + + | [facility] DEPARTMENT OF | | | [...] + | [facility] DEPARTMENT OF | [address] | [place] [address] | | | PATHOLOGY | [address] | | | + + + + + | [facility] DEPARTMENT | [address] | [place] [address] | | | PATHOLOGY | [address] [...] [facility] | [address] | [place] [address] | | | PATHOLOGY | [address] | | | + + + + + | [facility] | [address] [facility] | [place] [address] | | | PATHOLOGY | [address] [...] + + + | [facility] | [address] | [place] [address] | | | LABORATORY | | | [...] [facility] | [address] [facility] | [place] [address] | | | PATHOLOGY | [address] | | | + + + + + | [facility] | [address] [facility] | [place] [address] | | | PATHOLOGY | [address] [...] | + + + + + | [facility] DEPARTMENT OF | [address] | [place] [address] | | | PATHOLOGY | [address] | | | + + + + + | [facility] DEPARTMENT OF | [address] | [place] [address] | | | PATHOLOGY | [address] [...] | + + + + + | [facility] | [address] | [place] [address] | | | PATHOLOGY | [address] | | | + + + + + | [facility] | [address] | [place] [address] | | | PATHOLOGY | [address] [...] | [facility] | [facility] | [place] [address] | | | PATHOLOGY | [address] | | | + + + + + | [facility] DEPARTMENT OF | [facility] | [place] [address] | | | PATHOLOGY | [address] [...] | + + + + + | [facility] DEPARTMENT OF | [address] | [place] [address] | | | PATHOLOGY | [address] | | | + + + + + | [facility] DEPARTMENT OF | [address] | [place] [address] | | | PATHOLOGY | [address] [...] + + | [facility] DEPARTMENT OF | [address] | [place] [address] | | | PATHOLOGY | [address] | | | + + + + + | [facility] DEPARTMENT OF | [address] | [place] [address] | | | PATHOLOGY | [address] | | | + + + + + PROTHROMBIN TIME (04/29/2007 6:15 PM PST) + + + + + + | Component | Value | Ref Range | Performed | Pathologist | | | | | At | Signature | + + + + + + | INR | 1.05Comment: | 0.90 - 1.20 INR | [facility] | | | | PT [...] | [facility] | [facility] | [place] [address] | | | PATHOLOGY | [address] | | | + + + + + | [facility] DEPARTMENT OF | [address] | [place] [address] | | | PATHOLOGY | [address] | | | + + + [...] DEPARTMENT OF | [address] | [place] [address] | | | PATHOLOGY | [address] | | | + + + + + | [facility] DEPARTMENT | [address] | [place] [address] | | | PATHOLOGY | [address] [...] [facility] | [address] | [place] [address] | | | PATHOLOGY | [address] | | | + + + + + | [facility] | [address] | [place] [address] | | | PATHOLOGY | [address] | | | + + + + + documented in this encounter Visit Diagnoses Not on filedocumented in this encounter"
--- OUTSIDE RECORDS SUMMARY | ~2019-11-02 | XMS | Encounter Summary ---
Demographics + + + | Address | [address] | | | [place] [address] | + + + | Home Phone [...] Author + + + | Author | [facility] | | | and [place] | + + + | Organization | [facility] | | | and [place] | + + + | Address | Unknown | + + + | Phone | Unavailable | + + + Support + + +---------+ + | Name | Relationship | Address | Phone | + + +---------+ + | eLle Maysmartin | ECON | Unknown | | + + +---------+ + Care Team Providers + +------+ + | Care Travel Consultant Name | Role | Phone | + +------+ + PCP | Unavailable | + +------+ + Encounter Details +--------+ + + + + | Date | Type | Department | Care Team | Description | +--------+ + + + + | 11/16/ | Hospital | [facility] | Conversion | Pain | | 2017 | Encounter | CONVERSION DEP [address] | Transaction, | | | | | [address] | Provider Unknown | | | | | [place] | | | | | | [phone] | (Fax) | | | | | [phone] | | | +--------+ + + + [...] [place] | | | | | | [address] | | | | | | | | +--------+ + + + + | 11/07/ | Office | Vascular Surgery | Ricci De León DNP | | | 2019 | Visit | | [address] | | | | | | [place] | | | | | | [address] | | | | | | | [...]
--- OUTSIDE RECORDS SUMMARY | ~2019-11-02 | XMS | Encounter Summary ---
Demographics + + + | Address | [address] | | | [place] [address] | + + + | Home Phone | | + + + | Preferred Language | Unknown | + + + | Marital Status | Single | + + + | Uatsdin Affiliation | BAP | + + + | Race | White | + + + | Ethnic Group | Not or | + + + Author + + + | Author | [facility] [employer] [facility] | + + + | Organization | [facility] [employer] [facility] | + + + | Address | Unknown | + + + | Phone | Unavailable | + + + Support + + +---------+ + | Name | Relationship | Address | Phone | + + +---------+ + | Lele Conley | ECON | Unknown | | + + +---------+ + Care Team Providers + +------+ + | Care Order Processing Clerk Name | Role | Phone | + [...] | | | | | [address] [facility] | [facility] [address] | | | | | [address] Mailcode: [address] | [place], [place] | | | | | [facility] | [address] | | | | | [place], [place] | [phone] | | | | | [address] | | | | | | [phone] | | | +--------+ + + + [...] + + + + | PRODUCT | [id number] | | [facility] | | | UNIT [...] DEPARTMENT OF | [address] | [place] [address] | | | PATHOLOGY | [address] | | | + + + + + | [facility] DEPARTMENT OF | [address] | [place] [address] | | | PATHOLOGY | [address] [...] DEPARTMENT OF | [address] | [place] [address] | | | PATHOLOGY | [address] | | | + + + + + | [facility] | [address] | [place] [address] | | | PATHOLOGY | [address] | | | + + + + + documented in this encounter Visit Diagnoses Not on filedocumented in this encounter"
--- OUTSIDE RECORDS SUMMARY | ~2019-11-02 | XMS | Clinical Summary ---
Demographics + + + | Address | [address] | | | [place] [address] | + + + | Home Phone | | + + + | Preferred Language | Unknown | + + + | Marital Status | Single | + + + | Scientology Affiliation | [id number] | + + + [...] Team Providers + +------+ + | Care Central Supply Aide Name | Role | Phone | + [...] | 30 | 1 | 08/1 | | Activ | | (PLAVIX) 75 mg | mouth Daily. | tablet | | 8/20 | | e | | tablet | | | | 20 | | | + + + +---------+------+------+-------+ | cephalexin | | | 0 | 08/2 | | Activ | | (KEFLEX) 500 mg | | | | 5/20 | | e | | capsule | | | | 20 | | | + + + +---------+------+------+-------+ | | | | 0 | 08/2 [...] automatically from request for surgery | | [id number] | + + Encounters +--------+ + + + + | Date | Type | Specialty | Care Team | Description | +--------+ + + + + | 10/24/ | Office | Vascular Surgery | Ricci De León, CLYDE | PAD (peripheral | | 2020 | Visit | | | artery disease) | | | | | | (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); | | | | | Poli Powell MD | Pseudoaneurysm | | | | | | ([facility]); Peripheral | | | | | | arterial disease | | | | | | (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); | | | | | | [...] + + + | Blood Pressure | 143/86 [...] [place] | | | | | | [address] | | | | | | | | +--------+ + + + + | 11/07/ | Office | Vascular Surgery | Ricci De León DNP | | | 2019 | Visit | | [address] | | | | | | [place] | | | | | | [address] | | | | | | | [...] Lot | + +-------+------+ +--------+--------+--------+ | Graft Sapphire Propaten [id number] | Graft | | [facility] - | | | [id number] | | - [id number]: | | | WLGO | | | 50A | | Qty: 1 on 10/07/2019 by | | | | | | /[id number] | | Magdiel Arteaga MD at [facility] | | | | | | [id number] | | [facility] | | | | | | 5 /NA | | CENTER | | | | | | | + +-------+------+ +--------+--------+--------+ | Graft Hemgrd Knit [id number] - | Graft | | MAQUET | | | [id number] | | [id number]: Qty: 1 | | | CARDIOVASCU | | | 8-40 | | on 10/07/2019 by Magdiel Arteaga | | | LAR US | | | /[id number] | | MD Norma at [facility] | | | SALES - | | | [address] | [facility] | | | MAQU | | | /[id number] | + +-------+------+ +--------+--------+--------+ | Graft Vas Propaten 6-80mm - | Graft | | NEPTALI MELGAR - | | 02/22/ | [id number] | | [id number]: Qty: | | | WLGO | | 2022 | 80A | | 1 on 10/08/2019 by Chandler, | | | | | | /[id number] | | Magdiel Green MD at [facility] | | | | | | 29PP01 | | [facility] | | | | | | 1 /NA | + +-------+------+ +--------+--------+--------+ | Graft Vas Propaten 6-80mm - | Graft | | WL RAMÓN - | | 06/27/ | [id number] | | [id number]: Qty: | | | WLGO | | 2024 | 80A | | 1 on 10/08/2019 by Chandler, | | | | | | /[id number] | | Magdiel Green MD at [facility] | | | | | | 96PP02 | | [facility] | | | | | | 2 [...] | POC MIRNA CG8, | Routin | 10/08/2019 | | [...] EXTREMITY BILATERAL | | 9:22 AM | ([facility]) Peripheral | | | (59154) | | PDT | arterial disease | | | | | | ([facility]) | | + +--------+ + + + | BYPASS GRAFT | | 10/08/2019 | Pseudoaneurysm | | | FEMORAL-POPLITEAL | | 9:22 AM | ([facility]) Peripheral | | | | | PDT | arterial disease | | | | | | ([facility]) | | + +--------+ + + + | THROMBECTOMY / | | 10/08/2019 | Pseudoaneurysm | | | EMBOLECTOMY | | 9:22 AM | ([facility]) Peripheral | | | | | [...] + +--------+ + + + | NOAH ASPENPHANISCOTT BentonSabrina, | Routin | 10/07/2019 | | Results for this | | ARTERIAL | e | 10:47 AM | | procedure are in the | | | | PDT | | results section. | + +--------+ + + + | NOAH ASPENLILLIESCOTTSabrina, | Routin | 10/07/2019 | | Results [...] office | | | | | | -08/05 | | | 17:46 | | | [...] most recent of 6 results within the period is included. + + + + [...] performed at [facility], [address] | | | | | [address], | | | | | | [place] [address] | | | | + + + + + + + + | Specimen | + + | Blood | + + + + + + + | Performing | Address | City/State/Zipcode | Phone Number | | Organization | | | | + + + + + | [facility] | [address] | [place] [address] | [phone] | + + + + + Potassium [...] | | | | performed at [facility];[address] | mmol/L | LABORATORY | | | | [address];[place], [place] | | | | | | [address] | | | | + + + + + + + + | Specimen | + + | Blood | + + + + + + + | Performing | Address | City/State/Zipcode | Phone Number | | Organization | | | | + + + + + | [facility] | [address] | [place] [address] | [phone] | + + + + + Magnesium (10/16/2019 5:11 AM PDT)Only the most recent of 13 results within the time perio d is included. + + + + + + | Component | Value | Ref Range | Performed | Pathologist | | | | | At | Signature | + + + + + + | Magnesium | 1.7Comment: Testing | 1.7 - 2.4 mg/dL | [facility] | | | | performed at [facility];[address] | | LABORATORY | | | | [address];[place], [place] | | | | | | [address] | | | | + + + + + + + + | Specimen | + + | Blood | + + + + + + + | Performing | Address | City/State/Zipcode | Phone Number | | Organization | | | | + + + + + | [facility] | [address] | [place] [address] | [phone] | + + + + + Basic [...] performed at [facility], [address] | | | | | | [address], | | | | | | [place] [address] | | | | + + + + + + + + | Specimen | + + | Blood | + + + + + + + | Performing | Address | City/State/Zipcode | Phone Number | | Organization | | | | + + + + + | [facility] | [address] | [place] [address] | [phone] | + + + + + Phosphorus (10/14/2019 3:28 PM PDT)Only the most recent of 3 results within the time hugo jeffries is included. + + + + + + | Component | Value | Ref Range | Performed | Pathologist | | | | | At | Signature | + + + + + + | Phosphorus | 1.3 (L)Comment: Testing | 2.3 - 4.8 mg/dL | [facility] | | | | performed at [facility];[address] | | LABORATORY | | | | [address];[place], [place] | | | | | | [address] | | | | + + + + + + + + | Specimen | + + | Blood | + + + + + + + | Performing | Address | City/State/Zipcode | Phone Number | | Organization | | | | + + + + + | [facility] | [address] | [place] [address] | [phone] | + + + + + Hemoglobin [...] | | | | performed at [facility] | | LABORATORY | | | | [address];[place] | | | | | | [address] | | | | + + + + + + + + | Specimen | + + | Blood | + + + + + + + | Performing | Address | City/State/Zipcode | Phone Number | | Organization | | | | + + + + + | [facility] | [address] | [place] [address] | [phone] | + + + + + Clostridium [...] | | | | | | [facility];[address] [place] [address] | | | | | | [facility];[place] [address] | | | | + + + + + + + + | Specimen | + + | Stool - Stool | | specimen (specimen) | + + + + + + + | Performing | Address | City/State/Zipcode | Phone Number | | Organization | | | | + + + + + | [facility] | [address] | [place] [address] | [phone] | + + + + + Red [...] + + + | BB BAND | [id number] | | [facility] | | | | | | LABORATORY | | + + + + + + | UNIT # | [id number] | | [facility] | | | | [...] | | RESULT | performed at [facility];[address] | | LABORATORY | | | | [address];[place] | | | | | | [address] | | | | + + + + + + | UNIT # | [id number] | | [facility] | | | | [...] | + + + + + | [facility] | [address] | [place] [address] | [phone] | + + + + + Red [...] | [facility] | | | COMMENT | [facility];[address] | | LABORATORY | | | | [address];[place] [address] | | | | + + + + + + + + | Specimen | + + | | + + + + + + + | Performing | Address | City/State/Zipcode | Phone Number | | Organization | | | | + + + + + | [facility] | [address] [facility] | [place] [address] | [phone] | + + + + + Comprehensive [...] (H) | 10 - 45 U/L | [facility] | | | | | | LABORATORY | | + + + + + + | ALT | 37 | 10 - 65 U/L | [facility] | | | | | | LAB[facility]ATORY | | + + + + + + | Estimated | >60Comment: GFR <60: | >60 | [facility] | | | GFR | [...] | | | | performed at [facility];[address] | | | | | | [facility];[place], [place] | | | | | | [address] | | | | + + + + + + + + | Specimen | + + | Blood | + + + + + + + | Performing | Address | City/State/Zipcode | Phone Number | | Organization | | | | + + + + + | [facility] | [address] | [place] [address] | [phone] | + + + + + Urinalysis [...] - 1.030 | [facility] | | | [place], | | | LABORATORY | | | [...] LABORATORY | | | | [address], [address] | | | | | | [place] | | | | | | [address] | | | | + + + [...] | + + + + + | [facility] | [address] | [place] [address] | [phone] | + + + + + Osmolality, Urine (10/11/2019 11:16 AM PDT) + + + + + + | Component | Value | Ref Range | Performed | Pathologist | | | | | At | Signature | + + + + + + | OSMO URINE | 239Comment: Testing | 50 - 1,200 | [facility] | | | | performed at [facility], [address] | mOsm/kg | LABORATORY | | | | [address], | | | | | | [place] [address] | | | | + + + [...] | + + + + + | [facility] | [address] | [place] [address] | [phone] | + + + + + Culture, [...] | [facility] | | | Requests | [place];[address] | | LABORATORY | | | | [address];[place] [address] | | | | + + + + + + | RESULT | NO GROWTH 6 DAYS | | [facility] | | | | | | LABORATORY | | + + + + + + | RESULT | Testing performed at | | [facility] | | | | [facility], [address] | | LABORATORY | | | | [place] | | | | | | [address]Pahfxwn: Testing | | | | | | performed at [facility], [address] | | | | | | [address], [place] | | | | | | [address] | | | | + + + + + + + + | Specimen | + + | Blood - Swab of line | | insertion site | | (specimen) | + + + + + + + | Performing | Address | City/State/Zipcode | Phone Number | | Organization | | | | + + + + + | [facility] | [address] | [place] [address] | [phone] | + + + + + XR [...] Procedure Note | + + | Espinoza, [id number] - 10/11/2019 10:42 AM PDT | | [...] | | | | performed at [facility];[address] | mmol/L | LABORATORY | | | | [address];[place] | | | | | | [address] | | | | + + + + + + + + | Specimen | + + | Blood | + + + + + + + | Performing | Address | City/State/Zipcode | Phone Number | | Organization | | | | + + + + + | [facility] | [address] | [place] [address] | [phone] | + + + + + Osmolality, Serum (10/11/2019 9:30 AM PDT) + + + + + + | Component | Value | Ref Range | Performed | Pathologist | | | | | At | Signature | + + + + + + | Osmolality, | 262 (L)Comment: Testing | 280 - 301 | [facility] | | | Serum | performed at [facility], [address] | mOsm/kg | LABORATORY | | | | [address], | | | | | | [place] [address] | | | | + + + + + + + + | Specimen | + + | Blood | + + + + + + + | Performing | Address | City/State/Zipcode | Phone Number | | Organization | | | | + + + + + | [facility] | [address] | [place] [address] | [phone] | + + + + + CBC [...] | | Absolute | performed at [facility];[address] | K/uL | LABORATORY | | | | [address];[place] | | | | | | [address] | | | | + + + + + + + + | Specimen | + + | Blood | + + + + + + + | Performing | Address | City/State/Zipcode | Phone Number | | Organization | | | | + + + + + | [facility] | [address] | [place] [address] | [phone] | + + + + + Lactic Acid (10/09/2019 5:12 AM PDT) + + + + + + | Component | Value | Ref Range | Performed | Pathologist | | | | | At | Signature | + + + + + + | Lactate, | 1.8Comment: Testing | 0.4 - 2.0 | [facility] | | | Serum | performed at [facility];[address] | mmol/L | LABORATORY | | | | [address];[place] | | | | | | [address] | | | | + + + + + + + + | Specimen | + + | Blood | + + + + + + + | Performing | Address | City/State/Zipcode | Phone Number | | Organization | | | | + + + + + | [facility] | [address] | [place] [address] | [phone] | + + + + + Procalcitonin [...] | | | | | at [facility];[address] | | | | | | [place] [address] | | | | + + + + + + + + | Specimen | + + | Blood | + + + + + + + | Performing | Address | City/State/Zipcode | Phone Number | | Organization | | | | + + + + + | [facility] | [address] | [place] [address] | [phone] | + + + + + POC [...] | | POC | performed at [facility];[address] | | LABORATORY | | | | [address];[place], [place] | | | | | | [address] | | | | + + + + + + + + | Specimen | + + | | + + + + + + + | Performing | Address | City/State/Zipcode | Phone Number | | Organization | | | | + + + + + | [facility] | [address] | [place] [address] | [phone] | + + + + + PTT [...] | | | | performed at [facility];[address] | | LABORATORY | | | | [address];[place], [place] | | | | | | [address] | | | | + + + + + + + + | Specimen | + + | Blood | + + + + + + + | Performing | Address | City/State/Zipcode | Phone Number | | Organization | | | | + + + + + | [facility] | [address] | [place] [address] | [phone] | + + + + + POC SCOTT BRADLEY8, Arterial (10/08/2019 2:04 PM PDT)Only the most [...] | | POC | performed at [facility];[address] | g/dL | LABORATORY | | | | [address];[place] | | | | | | [address] | | | | + + + + + + + + | Specimen | + + | | + + + + + + + | Performing | Address | City/State/Zipcode | Phone Number | | Organization | | | | + + + + + | [facility] | [address] | [place] [address] | [phone] | + + + + + Red [...] | | | | performed at [facility] | | | | | | [address];[place], [place] | | | | | | [address] | | | | + + + + + + + + | Specimen | + + | Blood - Artery, | | Radial, Right | + + + + + + + | Performing | Address | City/State/Zipcode | Phone Number | | Organization | | | | + + + + + | [facility] | [address] | [place] [address] | [phone] | + + + + + Surgical [...] attached red-white | | | fibromembranous tissue. Process Owner sections are submitted in | | | [...] | LABORATORY:The technical component was performed by [facility] | | | [facility], [address] [place] [address] (Middle School History Teacher: | | | Asia Rodriguez MD; CLIA# [id number]).Professional interpretation was | | | performed by [email or web address] [address] | | | [place] [address] (Middle School History Teacher: Solitario | | | Jacky Recio; CLIA#: [id number]). Diagnostician: Asia Rodriguez | | | MDPathologistElectronically Signed 10/10/2019 | | | | | |PERFORMING LABORATORY: | | |The technical component was performed by [facility], [address] [place] [address] (Middle School History Teacher: Asia Rodriguez MD; CLIA# [id number]). | | |[facility], [address] [place] [id number] (Middle School History Teacher: Solitario Recio M.D.; [facility]#: [id number]). | | | | | |Diagnostician: Asia [...] | Procedure Note | + + | Espinoza [id number] - 10/04/2019 12:10 PM PDT | | [...] | | | | performed at [facility] | | LABORATORY | | | | [address];[place] | | | | | | [address] | | | | + + + [...] LABORATORY | [address] | [place] [address] | [phone] | + + + + + Lipid [...] performed at [facility], [address] | | LABORATORY | | | | [address], | | | | | | [place] [address] | | | | + + + + + + + + | Specimen | + + | Blood | + + + + + + + | Performing | Address | City/State/Zipcode | Phone Number | | Organization | | | | + + + + + | [facility] | [address] | [place] [address] | [phone] | + + + + + Uric Acid (10/04/2019 4:26 AM PDT) + + + + + + | Component | Value | Ref Range | Performed | Pathologist | | | | | At | Signature | + + + + + + | Uric Acid | 3.2Comment: Testing | 3.2 - 8.6 mg/dL | [facility] | | | | performed at [facility], [address] | | LABORATORY | | | | [address], | | | | | | [place] [address] | | | | + + + + + + + + | Specimen | + + | Blood | + + + + + + + | Performing | Address | City/State/Zipcode | Phone Number | | Organization | | | | + + + + + | [facility] | [address] | [place] [address] | [phone] | + + + + + Coronavirus (COVID-19) NAASerenity (10/04/2019 12:49 AM PDT) + + + + + + | Component | Value | Ref Range | Performed | Pathologist | | | | | At | Signature | + + + + + + | SARS-CoV-2, | NEGATIVEComment: This | NEG | [facility] | | | NAAT | [...] | | | | performed at [facility];[address] | | | | | | [facility];[place], [place] | | | | | | [address] | | | | + + + + + + + + | Specimen | + + | Tissue - Entire | | nasopharynx (body | | structure) | + + + + + + + | Performing | Address | City/State/Zipcode | Phone Number | | Organization | | | | + + + + + | [facility] | [address] | [place] [address] | [phone] | + + + + + ECG [...] | | | | ELLA HART MD ([id number]) | | | | | | on [...] +---------+--------+ | [employer] | [place] | [id number] | 10/03/19 | | | Indemn | | | COMMUN | | 20-Pre | | | ity | | | ITY | | sent | | | | | | CARE | | | | | | + +--------+ +--------+ +---------+--------+ | [employer] | [place] | [id number] | | | | Indemn | | | NS | | 009-Pr | | | ity | | | ADMIN | | esent | | | | | | [place] | | | | | | | | [place] | | | | | | + +--------+ +--------+ +---------+--------+ | MEDICARE | MEDICA | [id number] | 04/30/19 | [phone] | | Medica | | | RE | | 08-Pre | 5 | | re | | | PART A | | sent | | | | | | AND B | | | | | | + +--------+ +--------+ +---------+--------+ | MEDICAID [place] | MEDICA | [id number] | 05/31/19 | [phone] | | Medica [...] + +--------+ +--------+ + + | Jairo hTeodore | Person | Self [birth year] [address] | | | al/Fam | | 1960 | [phone] | [address] [place], | | | [place] | | | [address] (Home) | [place] [address] | + +--------+ +--------+ + + | Jairo Theodore | Person | Self | [birth year] | [address] | | | al/Fam | | 1960 | [phone] [address] [place], | | | [place] | | | [address] (Home) | [place] [address] | + +--------+ +--------+ + + Advance Directives + + + + + | Type | Date Recorded | Patient | Explanation | | | | Process Owner | | + + + + + | Power of | | | | | General Office Worker | | | | + + + [...]
--- OUTSIDE RECORDS SUMMARY | ~2019-11-02 | XMS | Encounter Summary ---
Demographics + + + | Address | [address] | | | [place] [address] | + + + | Home Phone | | + + + | Preferred Language | Unknown | + + + | Marital Status | Single | + + + | Zoroastrianism Affiliation | 1009 | + + + | Race | White | + + + | Ethnic Group | Not or | + + + Author + + + | Author | [facility] | | | and [place] | + + + | Organization | [facility] | | | and [...] Team Providers + +------+ + | Care Slunk Skinner Name | Role | Phone | + [...] + | 10/06/ | Surgery | [facility] | Magdiel Arteaga MD | REPAIR | | 2019 | | [facility] | [address] | [place]- | | | | OPER[address] | [address] | FEMORAL | | | | [address] | [place] [address] | | | | | [place], [place] | [phone] | | | | | [address] | | | | | | [phone] | | | +--------+---------+ + + + [...] GRAFT FEMORAL-POPLITEAL (Bilateral) ANGIOGRAM - EXTREMITY BILATERAL (55871) (Bilateral) Chief Complaint: No chief complaint on [...] was admitted on 10/03/2019 Transfer from [facility] with bilateral hip and [...] have wound check in 2 weeks wit [facility] to provide transportation, continue with aspirin 81 mg daily, Plavix 75 mg daily, atorv astatin 40 mg daily. Active Problems: Alcohol abuse/ Tobacco abuse advised to stop smoking and drinking Cellulitis of right foot has been completely treated with Augmentin while in the hospital Discharge Information: Follow up: Teresita Bob MD [address] [facility] [address] Follow up for Home health Wound Care [facility] [address] [id number] Follow up Wound Care and [...] you recover. Don t drive for at [id number] after your surgery or while you are [...] better overnight Chest pain or trouble breathing [employer] last reviewed this educational content on 11/29/201819998326-3494 [employer]. [address] [place] [address]. All righ ts reserved. This information is [...] of developing AAA decreases. To learn more Smokefree.gov/kpdx-xh-mh-expert National Cancer [place] Smoking Quitline:001-98V-DNIY (417-692-3015) [employer] last reviewed this educational content on 12/30/201819991462-1649 [employer]. [address] [place] [address], [place] [address]. All righ ts reserved. This information is [...] find a support program: Free national quitline 095-JOTY-FCQ (209-685-5490) [facility] quit-smoking programs [place] [employer] 629-876-9090 [place] [employer] 770-607-6081 Support at home is important too. Family and friends can offer praise and reassurance. If t he smoker in your life finds it hard to quit, encourage them to keep trying. Try gqyh-dvn-rumjdnh medicine Nicotine replacement therapymay make iteasier to [...] to quit smoking, try these resources: www.cdc.gov/tobacco/quit_smoking/ 503-HIUY-JNX (384-545-6728) www.smokefree.gov 740-04N-RYGR (055-140-2162) www.lung.org/stop-smoking/ 800-LUNGUSA (965-884-4330) Herve lynn reviewed this educational content on 01/29/201919991312-0096 [employer]. [address] [place] [address]. All righ ts reserved. This information is [...] PA- C - 10/16/2019 7:20 AM PDT [facility] Service: Vascular Surgery Progress Note Hospital Day: LOS: 13 days Post-Op Day: 11/06 SUBJECTIVE Patient Summary: The patient is a 59 y.o. 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 He unde rwent aortobifemoral bypass in 1999. [...] scan which revealed enlargement of known right CLIENT PORTFOLIO MANAGER pseudoaneurysm. He was transferred to [facility] for evaluation and Vascular was consulted [...] importance of following up with our office retirement. Still recommend discharge ho me with assist [...] 10/15/2019 10:30 AM PDT . Jairo Theodore [id number] Hospital Day: 12 SUBJECTIVE Events Overnight: Patient [...] been in touch with his Merrill, Lele [phone] and he did not want me to [...] and management as well as Computerized Physician Cellophaner. Dictation software, CargoSense, used which may contain error for similar sounding words even af ter review. Portions of this chart may have been copied from previous notes for continuity of care. Mundo Pack MD, FACP, FAAP 10/15/2019 il son, Chelsi Hebert PA-C - 10/15/2019 8:47 AM PDT [facility] Service: Vascular Surgery Progress Note Hospital [...] of alcohol abuse who presented to [facility] with com plaints of cellulitis of right leg as well as enlarging pseudoaneurysm of right CLIENT PORTFOLIO MANAGER. He unde rwent aortobifemoral bypass in 1999. [...] scan which revealed enlargement of known right CLIENT PORTFOLIO MANAGER pseudoaneurysm. He was transferred to [facility] for evaluation and Vascular was consulted [...] Call with any neurovascular changes. [facility] of this patient. [...] - 10/14/2019 9:23 AM PDT Jairo Theodore [id number] Hospital Day: 11 SUBJECTIVE Events Overnight: Patient [...] been in touch with his Merrill, Lele [phone] and he did not want me to [...] and management as well as Computerized Physician Cellophaner. Dictation software, CargoSense, used which may contain error for similar sounding words even af ter review. Portions of this chart may have been copied from previous notes for continuity of care. Mundo Pack MD, FACP, FAAP 10/14/2019 il son, Chelsi Hebert PA-C - 10/14/2019 8:44 AM PDT [facility] Service: Vascular Surgery Progress Note Hospital [...] of alcohol abuse who presented to [facility] with com plaints of cellulitis of right leg as well as enlarging pseudoaneurysm of right CLIENT PORTFOLIO MANAGER. He unde rwent aortobifemoral bypass in 1999. [...] scan which revealed enlargement of known right CLIENT PORTFOLIO MANAGER pseudoaneurysm. He was transferred to [facility] for evaluation and Vascular was consulted [...] 1.7 Estimated Energy Needs Energy Calorie Requirements: 1138-0477(28-32 kcal/kg per 54.3 kg admit wt ) [...] PA- C - 10/13/2019 10:33 AM PDT [facility] Service: Vascular Surgery Progress Note Hospital [...] of alcohol abuse who presented to [facility] with com plaints of cellulitis of right leg as well as enlarging pseudoaneurysm of right CLIENT PORTFOLIO MANAGER. He unde rwent aortobifemoral bypass in 1999. [...] scan which revealed enlargement of known right CLIENT PORTFOLIO MANAGER pseudoaneurysm. He was transferred to [facility] for evaluation and Vascular was consulted [...] different from t wyatt original. Jairo Theodore [id number] Hospital Day: 10 SUBJECTIVE Events Overnight: Patient [...] been in touch with his Merrill, Lele [phone] and he did not want me to [...] and management as well as Computerized Physician Cellophaner. Dictation software, CargoSense, used which may contain error for similar [...] different from the orig inal. Jairo Theodore [id number] Hospital Day: 9 SUBJECTIVE Events Overnight: Patient [...] been in touch with his Merrill, Lele [phone] and he did not want me to [...] and management as well as Computerized Physician Cellophaner. Dictation software, CargoSense, used which may contain error for similar sounding words even af ter review. Portions of this chart may have been copied from previous notes for continuity of care. Mundo Pack MD, FACP, FAAP 10/12/2019 il son, Chelsi HebertJUICE - 10/12/2019 9:17 AM PDT [facility] Service: Vascular Surgery Progress Note Hospital [...] of alcohol abuse who presented to [facility] with com plaints of cellulitis of right leg as well as enlarging pseudoaneurysm of right CLIENT PORTFOLIO MANAGER. He unde rwent aortobifemoral bypass in 1999. [...] scan which revealed enlargement of known right CLIENT PORTFOLIO MANAGER pseudoaneurysm. He was transferred to [facility] for evaluation and Vascular was consulted [...] Color, UA YELLOW Clarity, Urine CLEAR Specific [place], Urine 1.008 1.002 - 1.030 Leukocyte esterase, [...] BANK. BLOOD BANK COMMENT Testing performed at [facility];[address] [place] [address] Type and Screen Collection Time: 10/12/19 7:52 AM Result Value Ref Range ABO Rh A POSITIVE Antibody Screen NEGATIVE BB BAND [id number] BB BAND Testing performed at [facility];[address] [place] [address] UNIT # [id number] Product Code LEUKODEPLETED PC Unit Division 00 Unit Status ALLOCATED Transfusion Status OK TO TRANSFUSE CROSSMATCH RESULT COMPATIBLE UNIT # [id number] Product Code LEUKODEPLETED PC Unit Division 00 [...] to chair with feet elevated. [facility] any neurovascular changes. Appreciate hospitalitis assistance [...] from the originluis rebollar Jairo Kwaku Theodore [id number] Hospital Day: 8 SUBJECTIVE Events Overnight: Patient [...] been in touch with his Merrill, Lele [phone] and he did not want me to [...] and management as well as Computerized Physician Cellophaner. Dictation software, CargoSense, used which may contain error for similar sounding words even af ter review. Portions of this chart may have been copied from previous notes for continuity of care. Mundo Pack MD, FACP, FAAP 10/11/2019 il son, Chelsi HebertJUICE - 10/11/2019 6:45 AM PDT [facility] Service: Vascular Surgery Progress Note Hospital [...] of alcohol abuse who presented to [facility] with com plaints of cellulitis of right leg as well as enlarging pseudoaneurysm of right CLIENT PORTFOLIO MANAGER. He unde rwent aortobifemoral bypass in 1999. [...] scan which revealed enlargement of known right CLIENT PORTFOLIO MANAGER pseudoaneurysm. He was transferred to [facility] for evaluation and Vascular was consulted [...] Full Chelsi Arteaga PA-C 10/11/2019 Rachel Trinidad [facility] - 10/10/2019 11:59 AM [...] You, Rachel Cifuentes, PharmD, [facility] 10/10/19 11:59 AM PDT Arlene Crum P A-C - 10/10/2019 11:36 AM PDT [facility] Service: Vascular Surgery Progress Note Hospital [...] of alcohol abuse who presented to [facility] with com plaints of cellulitis of right leg as well as enlarging pseudoaneurysm of right CLIENT PORTFOLIO MANAGER. He unde rwent aortobifemoral bypass in 1999. [...] scan which revealed enlargement of known right CLIENT PORTFOLIO MANAGER pseudoaneurysm. He was transferred to [facility] for evaluation and Vascular was consulted [...] might be different from the or iginal. [facility] Service: Immunologist Progress Note Jairo Kwaku Theodore 59 y.o. [...] was farnsworth sferred on 10/03/2019 from [facility] for right foot swelling and increase [...] procedures. Tyler Elias MD 10/10/2019 Dictation software, CargoSense, was used which may contain error with similar sound words even after review. Portions of this chart may have been copied from previous notes for continuity of care. aniella Coleman RN - 10/09/2019 10:20 AM PDTFamily/ hearing care professional updated by pt. Chelsi Orta PA-C - 10/09/2019 7:08 AM PDT [facility] Service: Vascular Surgery Progress Note Hospital [...] of alcohol abuse who presented to [facility] with com plaints of cellulitis of right leg as well as enlarging pseudoaneurysm of right CLIENT PORTFOLIO MANAGER. He unde rwent aortobifemoral bypass in 1999. [...] scan which revealed enlargement of known right CLIENT PORTFOLIO MANAGER pseudoaneurysm. He was transferred to [facility] for evaluation and Vascular was consulted [...] Gr MD - 10/09/2019 1:[address] [facility] Service: Immunologist Progress Note Jairo Theodore 59 [facility].o. Hospital [...] was farnsworth sferred on 10/03/2019 from [facility] for right foot swelling and increase [...] procedures. Julian Gr MD 10/09/2019 Dictation software, CargoSense, was used which may contain error with [...] by vascular surgery. R eport given to NEONATAL NURSE. Pt safely transferred to room 29598. Incisions and dressings were teresa an and dry. Post tib and pedal pulses dopplerable. JADA SHINE RN Chyna Rashid MD - 10/08/2019 4:[address] [facility] Service: Hospitalist Progress Note Hospital Day: LOS: 5 days SUBJECTIVE Patient Summary: Mr. Theodore is a 59 yr old man active smoker 1ppday with alcohol abuse, hx of PAD, s/p right aorto bifemoral bypass in 1999 complicated by pseudoaneurysm, s/p revision, was transferred from [facility] ED for right foot swelling and increasing [...] [facility]. Patient had an EBL [...] Rashid MD - 10/07/2019 3:[address] [facility] Service: Hospitalist Progress Note Hospital Day: LOS: 4 days SUBJECTIVE Patient Summary: Mr. Theodore is a 59 yr old man active smoker 1ppday with alcohol abuse, hx of PAD, s/p right aorto bifemoral bypass in 1999 complicated by pseudoaneurysm, s/p revision, was transferred from [facility] ED for right foot swelling and [...] A POSITIVE Antibody Screen NEGATIVE BB BAND YACHT BUILDER 0630 BB BAND Testing performed at [facility];[address] [place] [address];[place] [address] UNIT # [id number] Product Code LEUKODEPLETED PC Unit Division 00 Unit Status ISSUED Transfusion Status OK TO TRANSFUSE CROSSMATCH RESULT COMPATIBLE UNIT # [id number] Product Code LEUKODEPLETED PC Unit Division 00 Unit Status ISSUED Transfusion Status OK TO TRANSFUSE CROSSMATCH RESULT COMPATIBLE UNIT # [id number] Product Code LEUKODEPLETED PC Unit Division 00 Unit Status ALLOCATED Transfusion Status OK TO TRANSFUSE CROSSMATCH RESULT COMPATIBLE UNIT # [id number] Product Code LEUKODEPLETED PC Unit Division 00 Unit Status ALLOCATED Transfusion Status OK TO TRANSFUSE CROSSMATCH RESULT COMPATIBLE Red Blood Cells (PRBC) - Crossmatch and Hold Result Value Ref Range Product Code RED CELL GROUP Units ordered 2 BLOOD BANK COMMENT ORDER RECEIVED IN BLOOD BANK. BLOOD BANK COMMENT Testing performed at [facility];[address] [place] [address];[place] [address] POC ISTAT, CG8, Arterial Result Value Ref [...] BANK. BLOOD BANK COMMENT Testing performed at [facility];[address] [place] [address];[place] [address] POC ISTAT, CG8, Arterial Result Value Ref [...] Milian PA-C - 10/07/2019 7:08 AM PDT [facility] Service: Vascular Surgery Progress Note Hospital Day: LOS: 4 days Post-Op Day: * No surgery date entered * SUBJECTIVE Patient Summary: The patient is a 59 y.o. 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 He unde rwent aortobifemoral bypass in 1999. [...] scan which revealed enlargement of known right CLIENT PORTFOLIO MANAGER pseudoaneurysm. He was transferred to [facility] for evaluation and Vascular was consulted [...] A POSITIVE Antibody Screen NEGATIVE BB BAND YACHT BUILDER 0630 BB BAND Testing performed at [facility];[address] [place] [address] UNIT # [id number] Product Code LEUKODEPLETED PC Unit Division 00 Unit Status ALLOCATED Transfusion Status OK TO TRANSFUSE CROSSMATCH RESULT COMPATIBLE UNIT # [id number] Product Code LEUKODEPLETED PC Unit Division 00 Unit Status ALLOCATED Transfusion Status OK TO TRANSFUSE CROSSMATCH RESULT COMPATIBLE Red Blood Cells (PRBC) - Crossmatch and Hold Collection Time: 10/07/19 6:30 AM Result Value Ref Range Product Code RED CELL GROUP Units ordered 2 BLOOD BANK COMMENT ORDER RECEIVED IN BLOOD BANK. BLOOD BANK COMMENT Testing performed at [facility];[address] [place] [address] PROBLEM LIST Principal Problem: Pseudoaneurysm right aorto [...] Shook MD - 10/06/2019 10:[address] [facility] Service: Hospitalist Progress Note Hospital Day: LOS: 3 days SUBJECTIVE Patient Summary: Mr. Theodore is a 59 yr old man active smoker 1ppday with alcohol abuse, hx of PAD, s/p right aorto bifemoral bypass in 1999 complicated by pseudoaneurysm, s/p revision, was transferred from [facility] ED for right foot swelling and [...] Crum PA-C - 10/06/2019 9:32 AM PDT [facility] Service: Vascular Surgery Progress Note Hospital Day: LOS: 3 days Post-Op Day: * No surgery date entered * SUBJECTIVE Patient Summary: The patient is a 59 y.o. 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 He unde rwent aortobifemoral bypass in 1999. [...] scan which revealed enlargement of known right CLIENT PORTFOLIO MANAGER pseudoaneurysm. He was transferred to [facility] for evaluation and Vascular was consulted [...] Rashid MD - 10/05/2019 12:[address] [facility] Service: Hospitalist Progress Note Hospital Day: LOS: 2 days SUBJECTIVE Patient Summary: Mr. Theodore is a 59 yr old man active smoker 1ppday with alcohol abuse, hx of PAD, s/p right aorto bifemoral bypass in 1999 complicated by pseudoaneurysm, s/p revision, was transferred from [facility] ED for right foot swelling and [...] Crum PA-C - 10/05/2019 8:18 AM PDT [facility] Service: Vascular Surgery Progress Note Hospital Day: LOS: 2 days Post-Op Day: * No surgery date entered * SUBJECTIVE Patient Summary: The patient is a 59 y.o. 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 He unde rwent aortobifemoral bypass in 1999. [...] scan which revealed enlargement of known right CLIENT PORTFOLIO MANAGER pseudoaneurysm. He was transferred to [facility] for evaluation and Vascular was consulted [...] and open repair for his enlarging right CLIENT PORTFOLIO MANAGER pseudoaneurysm. He will need r etroperitoneal exposure [...] Rashid MD - 10/04/2019 9:[address] [facility] Service: Hospitalist Progress Note Hospital Day: LOS: 1 day SUBJECTIVE Patient Summary: Mr. Theodore is a 59 yr old man active smoker 1ppday with alcohol abuse, hx of PAD, s/p right aorto bifemoral bypass in 1999 complicated by pseudoaneurysm, s/p revision, was transferred from [facility] ED for right foot swelling and increasing [...] LYTY 0809 BB BAND Testing performed at [facility];[address];[place] [address] ECG 12 lead Result Value Ref Range [...] if blood cultures were taken at [facility] Prn pain medication Pseudoaneurysm right femoral [...] might be different from t he original. [facility] Service: Hospitalist Admission [...] who p resents as a transfer from [facility] ED for pseudoaneurysm of the right groin and celluli tis of the RLE. Per patient right pseudoaneurysm of the right groin has been getting bigger for at least a year. Right foot swelling for 5 days. Patient reports similar [facility] at [facility] twice a year but this [...] LYTY 0809 BB BAND Testing performed at [facility];[address] [place] [address];[place] [address] ECG 12 lead Result Value Ref Range INTERPRETATION TEXT Not Confirmed IMAGING No orders to display EKG at 2310: NSR, VR 72, Qtc 455. Data from [facility] -Ultrasound impression: 6.3 x 5.1 [...] tremens, seizures from withdrawals or withdrawals -[facility] protocol initiated Tobacco abuse: -Quit smoking today smoke a pack of cigarettes per day -Nicotine patch Hypokalemia GI and DVT prophylaxis Code Status: Full Code Dictation software, AAMPP, used which may contain errors for similar [...] note might be different from the [facility] Service: Immunologist Initial Consult Note Jairo Theodore 59 y.o. [...] transf erred 5 days ago from [facility] for right foot swelling and increase [...] ENDARTERECTOMY FEMORAL; Surgeon: Magdiel Arteaga MD; Location: [facility] MAIN OR FEMORAL-FEMORAL BYPASS GRAFT N/A 10/07/2019 Procedure: BYPASS GRAFT FEMORAL-FEMORAL; Surgeon: Magdiel Arteaga MD; Location: [facility] MAIN OR OTHER SURGICAL HISTORY Right 10/07/2019 Procedure: REPAIR PSEUDOANEURYSM- FEMORAL; Surgeon: Magdiel Arteaga MD; Location: [facility] GABI N OR ALLERGIES Allergies Allergen Reactions [...] file Gets together: Not on file Attends scientologist service: Not on file Active member of [...] PDTAssociated Order(s): PROVIDER TO PROVIDER CONSUL T [facility] Service: Vascular Surgery Initial Consult Note Date of Admission: 10/03/2019 Date of Consultation: 10/04/2019 Reason for Consultation: Pseudoaneurysm of right CLIENT PORTFOLIO MANAGER Primary Care Physician: Maribel Physician on file History Obtained From: Patient, chart review Code Status: Full Code CHIEF COMPLAINT: Right foot swelling and pain; Enlarging right femoral pseudoaneurysm HISTORY OF PRESENT ILLNESS The patient is a 59 y.o. male with significant past medical history of tobacco abuse, HTN, CAD, history of alcohol abuse who presented to [facility] with complaints of cellulitis o f right leg as well as enlarging pseudoaneurysm of right CLIENT PORTFOLIO MANAGER. He underwent aortobifemoral by pass in 1999. [...] which reveal ed enlargement of known right CLIENT PORTFOLIO MANAGER pseudoaneurysm. He was transferred to [facility] for evaluation and Vascular was consulted [...] - The patient was transferr ed to [facility] for evaluation of his enlarging pseudoaneurysm, which has been the same size for the last year he reports. [facility] but was lost to any follow up. He has a complex history regarding his aortic repair and his left si de is chronically occluded per review of [facility] notes and angiographic report from 2007. His C TA with runoff yesterday showed enlarging right femoral pseudoaneurysm. Left CLIENT PORTFOLIO MANAGER shows no in flow but reconstitutes. The patient will require revascularization and open repair for his e nlarging right CLIENT PORTFOLIO MANAGER pseudoaneurysm. He will need retroperitoneal exposure with [...] Outpt/Agency/Support Groups: yes Community Agency Name: [facility] Home Health Disciplines: RN and PT - RN for wound care Equipment Durable Medical Equipment Provider: Home Equipment at Discharge: none Equipment Used at Home: cane, straight, single point Pharmacy Pharmacy/Medication needs: Pt is going to use Rx Pharmacy and will use his Medicare Part D benefits. TURF AND GROUNDS SUPERVISOR and Pt called [facility], got him reestablished with the [facility], has not been seen since 2018 . Pt is now assigned to Team Linda Bob. TURF AND GROUNDS SUPERVISOR p/c with Rudolph at [facility] Team Linda Bob, states they will be calling Pt for follow up appt and will send referral for outpatient wound care. TURF AND GROUNDS SUPERVISOR p/c with Carol at [facility], states she has received [facility] orders in the p ast and will follow up with Dr. Bob's office. TURF AND GROUNDS SUPERVISOR provided referral and faxed Home health referral. [...] Bed Mobility Supine to Sit, Level of Miller: modified independent Sit to Supine, Level of Miller: modified independent Safety Issues: decreased use of legs for bridging/pushing Transfers Sit-Stand, Level of Miller: supervised Stand-Sit, Level of Miller: supervised Ufd-Myjjz-Dda, Assistive Device: none Gait Level of Miller: supervised Assistive Device: none Distance (feet): 40 Goals Reflects last filed data and may be from multiple contributors. All Bed Mobility Goal Most Recent Value LTG Status new at 10/09/2019 1108 LTG Miller Level modified independent at 10/09/2019 1108 LTG Assistive Device none at 10/09/2019 1108 All Transfers Goal Most Recent Value LTG Status new at 10/09/2019 1108 LTG Miller Level modified independent at 10/09/2019 1108 LTG Assistive Device 2 wheeled walker (FWW) at 10/09/2019 1108 Gait Goal Most Recent Value LTG Status new at 10/09/2019 1108 LTG Miller Level modified independent at 10/09/2019 1108 LTG Assistive Device 2 wheeled walker (FWW) at 10/09/2019 1108 LTG Distance (feet) 100 at 10/09/2019 1108 Stair Goal Most Recent Value LTG Status new at 10/09/2019 1108 LTG Miller Level modified independent at 10/09/2019 1108 LTG [...] bed rails Supine to Sit, Level of Miller: modified independent Safety Issues: decreased use of legs for bridging/pushing Impairments: ROM decreased, strength decreased Transfers Sit-Stand, Level of Miller: stand by assist, verbal cues required Stand-Sit, Level of Miller: stand by assist, verbal cues required Zwk-Qyrfe-Qjw, Assistive Device: 2 wheeled walker (FWW), none Toilet, Level of Miller: stand by assist, verbal cues required Toilet, Assistive Device: 2 wheeled walker (FWW), grab bars Gait Gait Comments: antalgic gait with flexed trunk posture and intermittent crouch position Level of Miller: stand by assist, verbal cues required(verbal cues [...] LTG Status new at 10/09/2019 1108 LTG Miller Level modified independent at 10/09/2019 1108 LTG Assistive Device none at 10/09/2019 1108 All Transfers Goal Most Recent Value LTG Status new at 10/09/2019 1108 LTG Miller Level modified independent at 10/09/2019 1108 LTG Assistive Device 2 wheeled walker (FWW) at 10/09/2019 1108 Gait Goal Most Recent Value LTG Status new at 10/09/2019 1108 LTG Miller Level modified independent at 10/09/2019 1108 LTG Assistive Device 2 wheeled walker (FWW) at 10/09/2019 1108 LTG Distance (feet) 100 at 10/09/2019 1108 Stair Goal Most Recent Value LTG Status new at 10/09/2019 1108 LTG Miller Level modified independent at 10/09/2019 1108 LTG [...] Bed Mobility Supine to Sit, Level of Miller: minimal assist (75% patient effort) Transfers Sit-Stand, Level of Miller: minimal assist (75% patient effort) Gait Level of Miller: minimal assist (75% patient effort) Assistive Device: [...] LTG Status new at 10/09/2019 1108 LTG Miller Level modified independent at 10/09/2019 1108 LTG Assistive Device none at 10/09/2019 1108 All Transfers Goal Most Recent Value LTG Status new at 10/09/2019 1108 LTG Miller Level modified independent at 10/09/2019 1108 LTG Assistive Device 2 wheeled walker (FWW) at 10/09/2019 1108 Gait Goal Most Recent Value LTG Status new at 10/09/2019 1108 LTG Miller Level modified independent at 10/09/2019 1108 LTG Assistive Device 2 wheeled walker (FWW) at 10/09/2019 110 LTG Distance (feet) 100 at 10/09/2019 1108 Stair Goal Most Recent Value LTG Status new at 10/09/2019 1108 LTG Miller Level modified independent at 10/09/2019 1108 LTG [...] participation. Pt with an i ncontinent BM. SERVICES HOST and PT assisting with mobility and pericare. [...] Transfers Additional Documentation: toilet Sit-Stand, Level of Miller: minimal assist (75% patient effort) Stand-Sit, Level of Miller: minimal assist (75% patient effort) Hvf-Bfekf-Ifm, Assistive Device: 2 wheeled walker (FWW) Toilet, Level of Miller: minimal assist (75% patient effort) Toilet, Assistive Device: 2 wheeled walker (FWW) Safety Issues: loses balance backward, weight-shifting ability decreased, step length decre ased, sequencing ability decreased, balance decreased during turns Impairments: ROM decreased, strength decreased, impaired balance Gait Gait Comments: reduced step length BLE, excessive trunk flexion, reduced weight bearing RLE , avoidance COG over HAN Level of Miller: minimal assist (75% patient effort) Assistive Device: 2 wheeled walker (FWW) Distance (feet): 15x2 Goals Reflects last filed data and may be from multiple contributors. All Bed Mobility Goal Most Recent Value LTG Status new at 10/09/2019 1108 LTG Miller Level modified independent at 10/09/2019 1108 LTG Assistive Device none at 10/09/2019 1108 All Transfers Goal Most Recent Value LTG Status new at 10/09/2019 1108 LTG Miller Level modified independent at 10/09/2019 1108 LTG Assistive Device 2 wheeled walker (FWW) at 10/09/2019 1108 Gait Goal Most Recent Value LTG Status new at 10/09/2019 1108 LTG Miller Level modified independent at 10/09/2019 1108 LTG Assistive Device 2 wheeled walker (FWW) at 10/09/2019 1108 LTG Distance (feet) 100 at 10/09/2019 1108 Stair Goal Most Recent Value LTG Status new at 10/09/2019 1108 LTG Miller Level modified independent at 10/09/2019 1108 LTG [...] Recommendations: 2 wheeled walker (FWW), shower chair, blueprint maker, sock aide, long handled sponge, long handled [...] bed rails Supine to Sit, Level of Miller: minimal assist (75% patient effort) Sit to Supine, Level of Miller: moderate assist (50% patient effort) Safety Issues: decreased use of legs for bridging/pushing, decreased use of arms for pushin g/pulling Impairments: ROM decreased, strength decreased, postural control impaired, pain Transfers Additional Documentation: sit to/from stand Sit-Stand, Level of Miller: minimal assist (75% patient effort) Stand-Sit, Level of Miller: maximal assist (25% patient effort) Jcv-Cfstx-Lon, Assistive Device: 2 wheeled walker (FWW), gait belt Safety Issues: loses balance backward, weight-shifting ability decreased, step length decre ased, sequencing ability decreased, balance decreased during turns Impairments: ROM decreased, strength decreased, impaired balance ROM Comments: WFL Strength Comments: WFL. B waterworks supervisor strength 4/5. B UE MMT 4/5 except for biceps 3+/5 Balance Sitting Balance: Static: good balance Sitting Balance: Dynamic: good balance Standing Balance: Static: poor balance Standing Balance: Dynamic: poor balance Goals Reflects last filed data and may be from multiple contributors. LB Dressing Goal Most Recent Value LTG Status new at 10/10/2019 1545 LTG Miller Level minimum assist (75% patient effort), set up required at 10/10/2019 1545 LTG Adaptive Equipment blueprint maker, sock-aid at 10/10/2019 1545 Toilet Transfer Goal Most Recent Value LTG Status new at 10/10/2019 1545 LTG Miller Level minimum assist (75% patient effort) at [...] at bedside in ICU on turnover by selling manager. Patient stat es he feels better, [...] bed rails Supine to Sit, Level of Miller: minimal assist (75% patient effort) Transfers Bed-Chair, Level of Miller: minimal assist (75% patient effort) Trq-Evjed-Yim, Assistive Device: 2 wheeled walker (FWW), gait belt Sit-Stand, Level of Miller: minimal assist (75% patient effort), stand by assist Stand-Sit, Level of Miller: minimal assist (75% patient effort), stand by assist Gait Gait Comments: reduced step length BLE, excessive trunk flexion, reduced weight bearing RLE , avoidance COG over HAN Level of Miller: minimal assist (75% patient effort), verbal cues [...] LTG Status new at 10/09/2019 1108 LTG Miller Level modified independent at 10/09/2019 1108 LTG Assistive Device none at 10/09/2019 1108 All Transfers Goal Most Recent Value LTG Status new at 10/09/2019 1108 LTG Miller Level modified independent at 10/09/2019 1108 LTG Assistive Device 2 wheeled walker (FWW) at 10/09/2019 1108 Gait Goal Most Recent Value LTG Status new at 10/09/2019 1108 LTG Miller Level modified independent at 10/09/2019 1108 LTG Assistive Device 2 wheeled walker (FWW) at 10/09/2019 1108 LTG Distance (feet) 100 at 10/09/2019 1108 Stair Goal Most Recent Value LTG Status new at 10/09/2019 1108 LTG Miller Level modified independent at 10/09/2019 1108 LTG [...] Family Contact Information: Name: Lele Conley (Roommate) Rokpujjlrbtono signed by PORTILLO Varner at 10/10/2019 10:13 [...] HOB elevated Supine to Sit, Level of Miller: maximal assist (25% patient effort) Safety Issues: decreased use of legs for bridging/pushing, impaired trunk control for bed m obility Impairments: pain, strength decreased, ROM decreased Transfers Additional Documentation: sit to/from stand, bed to/from chair Bed-Chair, Level of Miller: moderate assist (50% patient effort) Jop-Rchne-Gwy, Assistive Device: 2 wheeled walker (FWW) Sit-Stand, Level of Miller: minimal assist (75% patient effort) Stand-Sit, Level of Miller: minimal assist (75% patient effort) Wes-Lkzuy-Kxx, Assistive Device: 2 wheeled walker (FWW) Safety [...] LTG Status new at 10/09/2019 1108 LTG Miller Level modified independent at 10/09/2019 1108 LTG Assistive Device none at 10/09/2019 1108 All Transfers Goal Most Recent Value LTG Status new at 10/09/2019 1108 LTG Miller Level modified independent at 10/09/2019 1108 LTG Assistive Device 2 wheeled walker (FWW) at 10/09/2019 1108 Gait Goal Most Recent Value LTG Status new at 10/09/2019 1108 LTG Miller Level modified independent at 10/09/2019 1108 LTG Assistive Device 2 wheeled walker (FWW) at 10/09/2019 1108 LTG Distance (feet) 100 at 10/09/2019 1108 Stair Goal Most Recent Value LTG Status new at 10/09/2019 1108 LTG Miller Level modified independent at 10/09/2019 1108 LTG [...] 1.7 Estimated Energy Needs Energy Calorie Requirements: 4860-7157(28-32 kcal/kg per 54.3 kg admit wt ) [...] Ongoing, progressing Flowsheets (Taken 10/09/2019 1024) Participants: lead case manager dietitian/nutrition services advanced practice nurse [...] started on clear liquid diet. lan of [facility] Viv Santos MSW - 10/09/2019 9:44 AM PDTAttended morning rounds. Pt transferred to ICU post -op for repair of thrombosed fem-fem artery bypass. Progressing. Await PT to julissa and alissa tinajero. Has no PCP per CM note and FS. Insurance is [facility]. lan of [facility] Urszula Garcia RN - 10/09/2019 8:02 [...] 10/08/2019 2:31 PM PDT BRIEF OPERATIVE NOTE [facility] Pt. Name/Age/: Jairo Theodore 59 y.o. 1960 Med. Record Number: [id number] Date of admission: 10/03/2019 Date of Operation/Procedure: [...] disease (HCC) [I73.9] Surgeon: Magdiel Arteaga MD Wheel Installer: Maicol Abel PA-C Anesthesia Provider(s): Anesthesiologist: Orlando Ambriz DO SPORTS MEDICINE MASSEUR: Som Garcia CRNA Anesthesia Type: Anesthesia type not filed in the log. Procedure(s): THROMBECTOMY / EMBOLECTOMY of fem fem bypass BILATERAL BYPASS GRAFT FEMORAL-POPLITEAL WITH 6 MM PTFE ANGIOGRAM - EXTREMITY BILATERAL (39635) Operative Findings: Thrombosed femoral to femoral artery [...] Implant Name Type Inv. Item Serial No. Self Defense Instructor Lot No. LRB No. Used Action GRAFT VAS PROPATEN 6-80MM - [id number] Graft GRAFT VAS PROPATEN 6-80MM [id number] WL G ORE - WLGO NA N/A 1 Implanted GRAFT VAS PROPATEN 6-80MM - [id number] Graft GRAFT VAS PROPATEN 6-80MM [id number] WL G ORE - WLGO NA N/A 1 Implanted Counts: Instrument, sponge, and needle counts were correct prior to closure and at the con clusion of the case. Complications: None Disposition: The patient was taken to PACU Immediate Post-Operative Condition: Stable Electronically signed by: Magdiel Arteaga MD, 10/08/2019, 2:31 PM PDT p Note - Magdiel Arteaga MD - 10/08/2019 10 :06 AM PDT [facility] OPERATIVE REPORT PATIENT NAME: Jairo Theodore [...] the femorofemoral bypass. Using 2 CV 6 Hiram-Jamie sutures the 6 mm bypass was anastomos [...] astomosis was created with 2 CV 6 Hiram-Jamie sutures. Prior to completing the anastomosis the [...] Magdiel Arteaga MD Vascular Surgery Dictation software, CargoSense, used which may contain error for similar sounding words even af ter review. Personal communication requested for any clarification. Electronically signed by: Magdiel Arteaga MD, 10/09/2019 10:06 AM PDT [facility] lan of Care - Aggie Hayden RN [...] Arteaga MD - 10/07/2019 7:00 PM PDT [facility] OPERATIVE REPORT PATIENT NAME: Jairo Theodore [...] femoral endarterectomy was performed w ith a [place] elevator. There was good backbleeding from the [...] common femoral endarterectomy was performed using the [place] elevator. After performing the endarterect carlyle there [...] Magdiel Arteaga MD Vascular Surgery Dictation software, CargoSense, used which may contain error for similar sounding words even af ter review. Personal communication requested for any clarification. Electronically signed by: Magdiel Arteaga MD, 10/09/2019 9:28 AM PDT [facility] rief Op Note - Magdiel Arteaga MD - 10/07/2019 4:30 PM PDTFormatting of this note might be different from the or iginal. BRIEF OPERATIVE NOTE [facility] Pt. Name/Age/: Jairo Theodore 59 y.o. 1960 Med. Record Number: [id number] Date of admission: 10/03/2019 Date of Operation/Procedure: 10/07/2019 Preoperative Diagnosis: 1. Large right groin pseudoaneurysm 2. Peripheral arterial disease Postoperative Diagnosis: * Pseudoaneurysm (HCC) [I72.9] Surgeon: Magdiel Arteaga MD Wheel Installer: Maicol Abel PA-C Anesthesia Provider(s): Anesthesiologist: Rudolph Lowery MD SPORTS MEDICINE MASSEUR: Neville Rush CRNA Anesthesia Type: General Procedure(s): [...] Implant Name Type Inv. Item Serial No. Self Defense Instructor Lot No. LRB No. Used Action GRAFT GORE PROPATEN [id number] - [id number] Graft GRAFT GORE PROPATEN [id number] WL GORE - WLGO NA Right 1 Implanted GRAFT HEMGRD KNIT [id number] - [id number] Graft GRAFT HEMGRD KNIT [id number] [employer] MAQU [id number] Right 1 Implanted [...] VSS with one SBP in 170s recheck [id number]. Report given to preop nurse and 0600IVPB [...] the bathroom clear of clutter. lan of [facility] - Carol Olivares MSW - 10/04/2019 12:52 [...] Notes: Pt resides with his friend in [place]. Pt is independent - no caregiver, home [...] of RLE and enlarging pseudoaneurysm of right CLIENT PORTFOLIO MANAGER. Pt scheduled for pseudoaneurysm repair on 10/04. [...] BUN 7* CREA 0.60* Estimated Energy Needs 1813-2043 kcal/day (28-32 kcal/kg per 54.3 kg admit [...] MCKEON | | | | | | [id number] | | | | | | | | +--------+ + + + + | 11/07/ | Office | Vascular Surgery | Ricci De León DNP | | | 2019 | Visit | | [address] | | | | | | [place] | | | | | | [address] | | | | | | | [...] | | | e | ([facility]) right aorto | 10/23/2019, Expires: | | | | | femoral bypass | 10/15/2020 | + +---------+--------+ + + | CBC w/ Auto | Lab | Routin | Pseudoaneurysm | Expected: | | Differential | | e | ([facility]) right aorto | 10/23/2019, Expires: | | | | | femoral bypass | 10/15/2020 | + +---------+--------+ + + | Phosphorus | Lab | Routin | Pseudoaneurysm | 1 Occurrences | | | | e | ([facility]) right aorto | starting 10/16/2019 | | | | | femoral bypass | until 10/15/2020 | + +---------+--------+ + + | Magnesium | Lab | Routin | Pseudoaneurysm | Expected: | | | | e | ([facility]) right aorto | 10/23/2019, Expires: | | | | | femoral bypass | 10/15/2020 | + +---------+--------+ + + | Calcium | Lab | Routin | Pseudoaneurysm | Expected: | | | | e | ([facility]) right aorto | 10/23/2019, Expires: [...] | Referral | e | ([facility]) right aorto | | | | | | femoral bypass | | | | | | Cellulitis of right | | | | | | foot 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 ([facility]) | | | | | [...] LABORATORY | | | | performed at [facility], [address] | | | | | [address], | | | | | | [place] [address] | | | | + + + + + + + + | Specimen | + + | Blood | + + + + + + + | Performing | Address | City/State/Zipcode | Phone Number | | Organization | | | | + + + + + | [facility] | [address] | [place] [address] | [phone] | + + + + + Magnesium (10/16/2019 5:11 AM PDT) + + + + + + | Component | Value | Ref Range | Performed | Pathologist | | | | | At | Signature | + + + + + + | Magnesium | 1.7Comment: Testing | 1.7 - 2.4 mg/dL | [facility] | | | | performed at [facility];[address] | | LABORATORY | | | | [address];[place] | | | | | | [address] | | | | + + + + + + + + | Specimen | + + | Blood | + + + + + + + | Performing | Address | City/State/Zipcode | Phone Number | | Organization | | | | + + + + + | [facility] | [address] | [place] [address] | [phone] | + + + + + Potassium (10/16/2019 5:11 AM PDT) + + + + + + | Component | Value | Ref Range | Performed | Pathologist | | | | | At | Signature | + + + + + + | K | 3.0 (L)Comment: Testing | 3.5 - 4.9 | [facility] | | | | performed at [facility];[address] | mmol/L | LABORATORY | | | | [address];[place] | | | | | | [address] | | | | + + + + + + + + | Specimen | + + | Blood | + + + + + + + | Performing | Address | City/State/Zipcode | Phone Number | | Organization | | | | + + + + + | [facility] | [address] | [place] [address] | [phone] | + + + + + CBC [...] LABORATORY | | | | performed at [facility], [address] | | | | | [address], | | | | | | [place] [address] | | | | + + + + + + + + | Specimen | + + | Blood | + + + + + + + | Performing | Address | City/State/Zipcode | Phone Number | | Organization | | | | + + + + + | [facility] | [address] | [place] [address] | [phone] | + + + + + Magnesium (10/15/2019 5:13 AM PDT) + + + + + + | Component | Value | Ref Range | Performed | Pathologist | | | | | At | Signature | + + + + + + | Magnesium | 1.9Comment: Testing | 1.7 - 2.4 mg/dL | [place] | | | | performed at [facility];[address] | | LABORATORY | | | | [address];[place] | | | | | | [address] | | | | + + + + + + + + | Specimen | + + | Blood | + + + + + + + | Performing | Address | City/State/Zipcode | Phone Number | | Organization | | | | + + + + + | [facility] | [address] | [place] [address] | [phone] | + + + + + Basic [...] | | | | | performed at [facility], [address] | | | | | | [facility], | | | | | | [place] [address] | | | | + + + + + + + + | Specimen | + + | Blood | + + + + + + + | Performing | Address | City/State/Zipcode | Phone Number | | Organization | | | | + + + + + | [facility] | [address] | [place] [address] | [phone] | + + + + + Potassium (10/14/2019 3:28 PM PDT) + + + + + + | Component | Value | Ref Range | Performed | Pathologist | | | | | At | Signature | + + + + + + | K | 3.3 (L)Comment: Testing | 3.5 - 4.9 | [facility] | | | | performed at [facility];[address] | mmol/L | LABORATORY | | | | [address];[place] | | | | | | [address] | | | | + + + + + + + + | Specimen | + + | Blood | + + + + + + + | Performing | Address | City/State/Zipcode | Phone Number | | Organization | | | | + + + + + | [facility] | [address] | [place] [address] | [phone] | + + + + + Magnesium (10/14/2019 3:28 PM PDT) + + + + + + | Component | Value | Ref Range | Performed | Pathologist | | | | | At | Signature | + + + + + + | Magnesium | 2.1Comment: Testing | 1.7 - 2.4 mg/dL | [place] | | | | performed at [facility];[address] | | LABORATORY | | | | [address];[place], [place] | | | | | | [address] | | | | + + + + + + + + | Specimen | + + | Blood | + + + + + + + | Performing | Address | City/State/Zipcode | Phone Number | | Organization | | | | + + + + + | [facility] | [address] | [place] [address] | [phone] | + + + + + Phosphorus (10/14/2019 3:28 PM PDT) + + + + + + | Component | Value | Ref Range | Performed | Pathologist | | | | | At | Signature | + + + + + + | Phosphorus | 1.3 (L)Comment: Testing | 2.3 - 4.8 mg/dL | [facility] | | | | performed at [facility];[address] | | LABORATORY | | | | [address];[place], [place] | | | | | | [address] | | | | + + + + + + + + | Specimen | + + | Blood | + + + + + + + | Performing | Address | City/State/Zipcode | Phone Number | | Organization | | | | + + + + + | [facility] | [address] | [place] [address] | [phone] | + + + + + CBC [...] LABORATORY | | | | performed at [facility], [address] | | | | | [address] [facility] [address], | | | | | | [place] [address] | | | | + + + + + + + + | Specimen | + + | Blood | + + + + + + + | Performing | Address | City/State/Zipcode | Phone Number | | Organization | | | | + + + + + | [facility] | [address] | [place] [address] | [phone] | + + + + + Magnesium (10/14/2019 5:49 AM PDT) + + + + + + | Component | Value | Ref Range | Performed | Pathologist | | | | | At | Signature | + + + + + + | Magnesium | 1.6 (L)Comment: Testing | 1.7 - 2.4 mg/dL | [facility] | | | | performed at [facility];[address] | | LABORATORY | | | [address];[place] | | | | | | [address] | | | | + + + + + + + + | Specimen | + + | Blood | + + + + + + + | Performing | Address | City/State/Zipcode | Phone Number | | Organization | | | | + + + + + | [facility] | [address] | [place] [address] | [phone] | + + + + + Basic [...] | | | | | performed at [facility], [address] | | | | | | [facility], | | | | | | [place] [address] | | | | + + + + + + + + | Specimen | + + | Blood | + + + + + + + | Performing | Address | City/State/Zipcode | Phone Number | | Organization | | | | + + + + + | [facility] | [address] | [place] [address] | [phone] | + + + + + Potassium (10/13/2019 11:07 AM PDT) + + + + + + | Component | Value | Ref Range | Performed | Pathologist | | | | | At | Signature | + + + + + + | K | 3.5Comment: Testing | 3.5 - 4.9 | [facility] | | | | performed at [facility];[address] | mmol/L | LABORATORY | | | | [address];[place], [place] | | | | | | [address] | | | | + + + + + + + + | Specimen | + + | Blood | + + + + + + + | Performing | Address | City/State/Zipcode | Phone Number | | Organization | | | | + + + + + | [facility] | [address] | [place] [address] | [phone] | + + + + + Potassium (10/13/2019 4:37 AM PDT) + + + + + + | Component | Value | Ref Range | Performed | Pathologist | | | | | At | Signature | + + + + + + | K | 3.5Comment: Testing | 3.5 - 4.9 | [facility] | | | | performed at [facility];[address] | mmol/L | LABORATORY | | | | [address];[place], [place] | | | | | | [address] | | | | + + + + + + + + | Specimen | + + | Blood | + + + + + + + | Performing | Address | City/State/Zipcode | Phone Number | | Organization | | | | + + + + + | [facility] | [address] | [place] [address] | [phone] | + + + + + Magnesium (10/13/2019 4:37 AM PDT) + + + + + + | Component | Value | Ref Range | Performed | Pathologist | | | | | At | Signature | + + + + + + | Magnesium | 1.7Comment: Testing | 1.7 - 2.4 mg/dL | [facility] | | | | performed at [facility];[address] | | LABORATORY | | | | [address];[place] | | | | | | [address] | | | | + + + + + + + + | Specimen | + + | Blood | + + + + + + + | Performing | Address | City/State/Zipcode | Phone Number | | Organization | | | | + + + + + | [facility] | [address] | [place] [address] | [phone] | + + + + + Basic [...] 7.3 (L) | 8.5 - 10.5 | [facility] | | | | | mg/dL | LABORATORY | | + + + + + + | Estimated | >60Comment: GFR <60: | >60 | [facility] | | | GFR | CHRONIC [...] | | | | | | MDRD [facility] traceable | | | | | | equation.Testing | | | | | | performed at [facility] | | | | | | [facility];[place], [place] | | | | | | [address] | | | | + + + + + + + + | Specimen | + + | Blood | + + + + + + + | Performing | Address | City/State/Zipcode | Phone Number | | Organization | | | | + + + + + | [facility] | [address] | [place] [address] | [phone] | + + + + + Hemoglobin [...] [facility] | | | | performed at [facility];[address] | | LABORATORY | | | | [address];[place] | | | | | | [address] | | | | + + + + + + + + | Specimen | + + | Blood | + + + + + + + | Performing | Address | City/State/Zipcode | Phone Number | | Organization | | | | + + + + + | [facility] | [address] | [place] [address] | [phone] | + + + + + Potassium (10/12/2019 4:28 PM PDT) + + + + + + | Component | Value | Ref Range | Performed | Pathologist | | | | | At | Signature | + + + + + + | K | 3.3 (L)Comment: Testing | 3.5 - 4.9 | [facility] | | | | performed at [facility];[address] | mmol/L | LABORATORY | | | | [address];[place] | | | | | | [address] | | | | + + + + + + + + | Specimen | + + | Blood | + + + + + + + | Performing | Address | City/State/Zipcode | Phone Number | | Organization | | | | + + + + + | [facility] | [address] | [place] [address] | [phone] | + + + + + Clostridium [...] at | | | | | | [facility];[address] [place] [address] | | | | | | Bl;[place] [address] | | | | + + + + + + + + | Specimen | + + | Stool - Stool | | specimen (specimen) | + + + + + + + | Performing | Address | City/State/Zipcode | Phone Number | | Organization | | | | + + + + + | [facility] | [address] | [place] [address] | [phone] | + + + + + Potassium (10/12/2019 11:02 AM PDT) + + + + + + | Component | Value | Ref Range | Performed | Pathologist | | | | | At | Signature | + + + + + + | K | 3.3 (L)Comment: Testing | 3.5 - 4.9 | [facility] | | | | performed at [facility];[address] | mmol/L | LABORATORY | | | | [address];[place], [place] | | | | | | [address] | | | | + + + + + + + + | Specimen | + + | Blood | + + + + + + + | Performing | Address | City/State/Zipcode | Phone Number | | Organization | | | | + + + + + | [facility] | [address] | [place] [address] | [phone] | + + + + + Type [...] + + + | BB BAND | [id number] | | [facility] | | | | | | LABORATORY | | + + + + + + | UNIT # | [id number] | | [facility] | | | | [...] | | | RESULT | performed at [facility] | | LABORATORY | | | | [address];[place] | | | | | | [address] | | | | + + + + + + | UNIT # | [id number] | | [facility] | | | | [...] M [facility] | [address] | [place] [address] | [phone] | + + + + + Red [...] | [facility] | | | COMMENT | [facility];[address] | | LABORATORY | | | | [address];[place] [address] | | | | + + + + + + + + | Specimen | + + | | + + + + + + + | Performing | Address | City/State/Zipcode | Phone Number | | Organization | | | | + + + + + | [facility] | [address] | [place] [address] | [phone] | + + + + + Magnesium (10/12/2019 4:08 AM PDT) + + + + + + | Component | Value | Ref Range | Performed | Pathologist | | | | | At | Signature | + + + + + + | Magnesium | 1.9Comment: Testing | 1.7 - 2.4 mg/dL | [facility] | | | | performed at [facility];[address] | | LABORATORY | | | | [address];[place], [place] | | | | | | [address] | | | | + + + + + + + + | Specimen | + + | Blood | + + + + + + + | Performing | Address | City/State/Zipcode | Phone Number | | Organization | | | | + + + + + | [facility] | [address] | [place] [address] | [phone] | + + + + + Comprehensive [...] | | | | | performed at [facility];[address] | | | | | | [address];[place], [place] | | | | | | [address] | | | | + + + + + + + + | Specimen | + + | Blood | + + + + + + + | Performing | Address | City/State/Zipcode | Phone Number | | Organization | | | | + + + + + | [facility] | [address] | [place] [address] | [phone] | + + + + + CBC [...] | [facility] | | | | NURSING MZRO2VC,TONJA H | g/dL | LABORATORY | | [...] LABORATORY | | | | performed at [facility];[address] | | | | | | [address];[place] | | | | | | [address] | | | | + + + + + + + + | Specimen | + + | Blood | + + + + + + + | Performing | Address | City/State/Zipcode | Phone Number | | Organization | | | | + + + + + | [facility] | [address] | [place] [address] | [phone] | + + + + + Urinalysis [...] - 1.030 | [facility] | | | [place], | | | LABORATORY | | | [...] [place] | | | | | | [address] | | | | + + + [...] | + + + + + | [facility] | [address] | [place] [address] | [phone] | + + + + + Osmolality, Urine (10/11/2019 11:16 AM PDT) + + + + + + | Component | Value | Ref Range | Performed | Pathologist | | | | | At | Signature | + + + + + + | OSMO URINE | 239Comment: Testing | 50 - 1,200 | [facility] | | | | performed at [facility], [address] | mOsm/kg | LABORATORY | | | | [address], | | | | | | [place] [address] | | | | + + + [...] | + + + + + | [facility] | [address] | [place] [address] | [phone] | + + + + + Culture, [...] LABORATORY | | | | [address];[place] [address] | | | | + + + + + + | RESULT | NO GROWTH 6 DAYS | | [facility] | | | | | | LABORATORY | | + + + + + + | RESULT | Testing performed at | | [facility] | | | | [facility], [address] | | LABORATORY | | | | [place], [place] | | | | | | [address]Xisardr: Testing | | | | | | performed at [facility], [address] | | | | | | [facility] [place], [place] | | | | | | [address] | | | | + + + + + + + + | Specimen | + + | Blood - Swab of line | | insertion site | | (specimen) | + + + + + + + | Performing | Address | City/State/Zipcode | Phone Number | | Organization | | | | + + + + + | [facility] | [address] | [place] [address] | [phone] | + + + + + XR [...] Procedure Note | + + | Espinoza, [id number] - 10/11/2019 10:42 AM PDT | | [...] | [facility] | | | Requests | [facility];[address] | | LABORATORY | | | | [address];[place] [address] | | | | + + + + + + | RESULT | NO GROWTH 6 DAYS | | [facility] | | | | | | LABORATORY | | + + + + + + | RESULT | Testing performed at | | [facility] | | | | [facility], [address] | | LABORATORY | | | | [place], [place] | | | | | | [address]Qlmfdfe: Testing | | | | | | performed at [facility], [address] | | | | | | [place], [place] | | | | | | [address] | | | | + + + + + + + + | Specimen | + + | Blood - Peripheral | | blood specimen | | (specimen) | + + + + + + + | Performing | Address | City/State/Zipcode | Phone Number | | Organization | | | | + + + + + | [facility] | [address] | [place] [address] | [phone] | + + + + + Sodium (10/11/2019 9:30 AM PDT) + + + + + + | Component | Value | Ref Range | Performed | Pathologist | | | | | At | Signature | + + + + + + | Na | 127 (L)Comment: Testing | 135 - 145 | [facility] | | | | performed at [facility];[address] | mmol/L | LABORATORY | | | | [address];[place], [place] | | | | | | [address] | | | | + + + + + + + + | Specimen | + + | Blood | + + + + + + + | Performing | Address | City/State/Zipcode | Phone Number | | Organization | | | | + + + + + | [facility] | [address] | [place] [address] | [phone] | + + + + + Osmolality, [...] | | | | | [place] [address] | | | | + + + + + + + + | Specimen | + + | Blood | + + + + + + + | Performing | Address | City/State/Zipcode | Phone Number | | Organization | | | | + + + + + | [facility] | [address] | [place] [address] | [phone] | + + + + + Comprehensive [...] | | | | | | MDRD [facility] traceable | | | | | | equation.Testing | | | | | | performed at [facility];[address] | | | | | | [facility];[place], [place] | | | | | | [address] | | | | + + + + + + + + | Specimen | + + | Blood | + + + + + + + | Performing | Address | City/State/Zipcode | Phone Number | | Organization | | | | + + + + + | [facility] | [address] | [place] [address] | [phone] | + + + + + CBC [...] | 10.1Comment: NO NORMAL | fl | [facility] | | | | RANGE ESTABLISHEDTesting | | LABORATORY | | | | performed at [facility];[address] | | | | | [address];[place], [place] | | | | | | [address] | | | | + + + + + + + + | Specimen | + + | Blood | + + + + + + + | Performing | Address | City/State/Zipcode | Phone Number | | Organization | | | | + + + + + | [facility] | [address] | [place] [address] | [phone] | + + + + + Comprehensive [...] | | | | | performed at [facility] | | | | | | [facility];[place], [place] | | | | | | [address] | | | | + + + + + + + + | Specimen | + + | Blood | + + + + + + + | Performing | Address | City/State/Zipcode | Phone Number | | Organization | | | | + + + + + | [facility] | [address] | [place] [address] | [phone] | + + + + + Magnesium (10/10/2019 4:16 AM PDT) + + + + + + | Component | Value | Ref Range | Performed | Pathologist | | | | | At | Signature | + + + + + + | Magnesium | 1.8Comment: Testing | 1.7 - 2.4 mg/dL | [facility] | | | | performed at [facility];[address] | | LABORATORY | | | | [address];[place], [place] | | | | | | [address] | | | | + + + + + + + + | Specimen | + + | Blood | + + + + + + + | Performing | Address | City/State/Zipcode | Phone Number | | Organization | | | | + + + + + | [facility] | [address] | [place] [address] | [phone] | + + + + + CBC [...] | | | Absolute | performed at [facility];[address] | K/uL | LABORATORY | | | | [address];[place], [place] | | | | | | [address] | | | | + + + + + + + + | Specimen | + + | Blood | + + + + + + + | Performing | Address | City/State/Zipcode | Phone Number | | Organization | | | | + + + + + | [facility] | [address] | [place] [address] | [phone] | + + + + + Lactic Acid (10/09/2019 5:12 AM PDT) + + + + + + | Component | Value | Ref Range | Performed | Pathologist | | | | | At | Signature | + + + + + + | Lactate, | 1.8Comment: Testing | 0.4 - 2.0 | [facility] | | | Serum | performed at [facility];[address] | mmol/L | LABORATORY | | | | [address];[place], [place] | | | | | | [address] | | | | + + + + + + + + | Specimen | + + | Blood | + + + + + + + | Performing | Address | City/State/Zipcode | Phone Number | | Organization | | | | + + + + + | [facility] | [address] | [place] [address] | [phone] | + + + + + Comprehensive [...] | | | | | performed at [facility];[address] | | | | | | [facility];[place], [place] | | | | | | [address] | | | | + + + + + + + + | Specimen | + + | Blood | + + + + + + + | Performing | Address | City/State/Zipcode | Phone Number | | Organization | | | | + + + + + | [facility] | [address] | [place] [address] | [phone] | + + + + + Procalcitonin [...] | | | | | | at [facility];[address] [place] [address] | | | | | | [facility];[place] [address] | | | | + + + + + + + + | Specimen | + + | Blood | + + + + + + + | Performing | Address | City/State/Zipcode | Phone Number | | Organization | | | | + + + + + | [facility] | [address] | [place] [address] | [phone] | + + + + + Phosphorus (10/09/2019 5:10 AM PDT) + + + + + + | Component | Value | Ref Range | Performed | Pathologist | | | | | At | Signature | + + + + + + | Phosphorus | 4.0Comment: Testing | 2.3 - 4.8 mg/dL | [facility] | | | | performed at [facility];[address] | | LABORATORY | | | | [address];[place] | | | | | | [address] | | | | + + + + + + + + | Specimen | + + | Blood | + + + + + + + | Performing | Address | City/State/Zipcode | Phone Number | | Organization | | | | + + + + + | [facility] | [address] | [place] [address] | [phone] | + + + + + Magnesium (10/09/2019 5:10 AM PDT) + + + + + + | Component | Value | Ref Range | Performed | Pathologist | | | | | At | Signature | + + + + + + | Magnesium | 1.7Comment: Testing | 1.7 - 2.4 mg/dL | [facility] | | | | performed at [facility];[address] | | LABORATORY | | | | [address];[place], [place] | | | | | | [address] | | | | + + + + + + + + | Specimen | + + | Blood | + + + + + + + | Performing | Address | City/State/Zipcode | Phone Number | | Organization | | | | + + + + + | [facility] | [address] | [place] [address] | [phone] | + + + + + CBC [...] | | | | | performed at [facility] | | | | | | [facility];[place], [place] | | | | | | [address] | | | | + + + + + + + + | Specimen | + + | Blood | + + + + + + + | Performing | Address | City/State/Zipcode | Phone Number | | Organization | | | | + + + + + | [facility] | [address] | [place] [address] | [phone] | + + + + + POC [...] | | | POC | performed at [facility];[address] | | LABORATORY | | | | [address];[place] | | | | | | [address] | | | | + + + + + + + + | Specimen | + + | | + + + + + + + | Performing | Address | City/State/Zipcode | Phone Number | | Organization | | | | + + + + + | [facility] | [address] | [place] [address] | [phone] | + + + + + Phosphorus (10/08/2019 5:23 PM PDT) + + + + + + | Component | Value | Ref Range | Performed | Pathologist | | | | | At | Signature | + + + + + + | Phosphorus | 3.4Comment: Testing | 2.3 - 4.8 mg/dL | [facility] | | | | performed at [facility];8 | | LABORATORY | | | | [address];[place], [place] | | | | | | [address] | | | | + + + + + + + + | Specimen | + + | Blood | + + + + + + + | Performing | Address | City/State/Zipcode | Phone Number | | Organization | | | | + + + + + | [facility] | [address] | [place] [address] | [phone] | + + + + + Magnesium (10/08/2019 5:23 PM PDT) + + + + + + | Component | Value | Ref Range | Performed | Pathologist | | | | | At | Signature | + + + + + + | Magnesium | 1.8Comment: Testing | 1.7 - 2.4 mg/dL | [facility] | | | | performed at [facility];[address] | | LABORATORY | | | | [address];[place], [place] | | | | | | [address] | | | | + + + + + + + + | Specimen | + + | Blood | + + + + + + + | Performing | Address | City/State/Zipcode | Phone Number | | Organization | | | | + + + + + | [facility] | [address] | [place] [address] | [phone] | + + + + + CBC [...] at | | | | | | [facility];[address] [place] [address] | | | | | | Blvd;[place] [address] | | | | + + + + + + + + | Specimen | + + | Blood | + + + + + + + | Performing | Address | City/State/Zipcode | Phone Number | | Organization | | | | + + + + + | [facility] | [address] | [place] [address] | [phone] | + + + + + Basic [...] | | | | | performed at [facility] | | | | | | [address] [facility];[place], [place] | | | | | | [address] | | | | + + + + + + + + | Specimen | + + | Blood | + + + + + + + | Performing | Address | City/State/Zipcode | Phone Number | | Organization | | | | + + + + + | [facility] | [address] | [place] [address] | [phone] | + + + + + PTT (10/08/2019 5:23 PM PDT) + + + + + + | Component | Value | Ref Range | Performed | Pathologist | | | | | At | Signature | + + + + + + | PTT | 32Comment: Testing | 23 - 32 seconds | [facility] | | | | performed at [facility];[address] | | LABORATORY | | | | [address];[place] | | | | | | [address] | | | | + + + + + + + + | Specimen | + + | Blood | + + + + + + + | Performing | Address | City/State/Zipcode | Phone Number | | Organization | | | | + + + + + | [facility] | [address] | [place] [address] | [phone] | + + + + + POC [...] | | | POC | performed at [facility];[address] | g/dL | LABORATORY | | | | [address];[place], [place] | | | | | | [address] | | | | + + + + + + + + | Specimen | + + | | + + + + + + + | Performing | Address | City/State/Zipcode | Phone Number | | Organization | | | | + + + + + | [facility] | [address] | [place] [address] | [phone] | + + + + + POC [...] | | | POC | performed at [facility];[address] | g/dL | LABORATORY | | | | [address];[place] | | | | | | [address] | | | | + + + + + + + + | Specimen | + + | | + + + + + + + | Performing | Address | City/State/Zipcode | Phone Number | | Organization | | | | + + + + + | [facility] | [address] | [place] [address] | [phone] | + + + + + Basic [...] 7.2 (L) | 8.5 - 10.5 | [facility] | | | | | mg/dL | LABORATORY | | + + + + + + | Estimated | >60Comment: GFR <60: | >60 | [facility] | | | GFR | CHRONIC [...] | | | | | | MDRD IDNC traceable | | | | | | equation.Testing | | | | | | performed at [facility], [address] | | | | | | [facility], | | | | | | [place] [address] | | | | + + + + + + + + | Specimen | + + | Blood | + + + + + + + | Performing | Address | City/State/Zipcode | Phone Number | | Organization | | | | + + + + + | [facility] | [address] | [place] [address] | [phone] | + + + + + CBC [...] | | | Absolute | performed at [facility], [address] | K/uL | LABORATORY | | | | [address], | | | | | | [place] [address] | | | | + + + + + + + + | Specimen | + + | Blood | + + + + + + + | Performing | Address | City/State/Zipcode | Phone Number | | Organization | | | | + + + + + | [facility] | [address] | [place] [address] | [phone] | + + + + + Magnesium (10/08/2019 5:44 AM PDT) + + + + + + | Component | Value | Ref Range | Performed | Pathologist | | | | | At | Signature | + + + + + + | Magnesium | 1.6 (L)Comment: Testing | 1.7 - 2.4 mg/dL | [facility] | | | | performed at [facility];[address] | | LABORATORY | | | | [address];[place] | | | | | | [address] | | | | + + + + + + + + | Specimen | + + | Blood | + + + + + + + | Performing | Address | City/State/Zipcode | Phone Number | | Organization | | | | + + + + + | [facility] | [address] | [place] [address] | [phone] | + + + + + PTT (10/07/2019 5:21 PM PDT) + + + + + + | Component | Value | Ref Range | Performed | Pathologist | | | | | At | Signature | + + + + + + | PTT | 28Comment: Testing | 23 - 32 seconds | K[facility] | | | | performed at [facility];[address] | | LABORATORY | | | | [address];[place] | | | | | | [address] | | | | + + + + + + + + | Specimen | + + | Blood - Artery, | | Radial, Right | + + + + + + + | Performing | Address | City/State/Zipcode | Phone Number | | Organization | | | | + + + + + | [facility] | [address] | [place] [address] | [phone] | + + + + + Protime [...] | | | | | performed at [facility] | | | | | | [address];[place], [place] | | | | | | [address] | | | | + + + + + + + + | Specimen | + + | Blood - Artery, | | Radial, Right | + + + + + + + | Performing | Address | City/State/Zipcode | Phone Number | | Organization | | | | + + + + + | [facility] | [address] | [place] [address] | [phone] | + + + + + Basic [...] 7.0 (L) | 8.5 - 10.5 | [facility] | | | | | mg/dL | LABORATORY | | + + + + + + | Estimated | >60Comment: GFR <60: | >60 | [facility] | | | GFR | CHRONIC [...] | | | | | performed at [facility];[address] | | | | | | [facility];[place], [place] | | | | | | [address] | | | | + + + + + + + + | Specimen | + + | Blood - Artery, | | Radial, Right | + + + + + + + | Performing | Address | City/State/Zipcode | Phone Number | | Organization | | | | + + + + + | [facility] | [address] | [place] [address] | [phone] | + + + + + CBC [...] LABORATORY | | | | performed at [facility];[address] | | | | | | [address];[place] | | | | | | [address] | | | | + + + + + + + + | Specimen | + + | Blood - Right upper | | arm structure (body | | structure) | + + + + + + + | Performing | Address | City/State/Zipcode | Phone Number | | Organization | | | | + + + + + | [facility] | [address] | [place] [address] | [phone] | + + + + + Surgical [...] | including foreign body giant cell reaction. AMB:[facility]:C2NR MICROSCOPIC | | | EXAMINATION:Histologic sections of [...] attached red-white | | | fibromembranous tissue. Productivity Engineer sections are submitted in | | | [...] | LABORATORY:The technical component was performed by [facility] | | | [employer], [address] [place] [id number] (Tire Manager: | | | Asia Rodriguez MD; CLIA# [id number]).Professional interpretation was | | | performed by [facility], [address] | | | [place] [address] (Tire Manager: Solitario | | | Jacky Recio; CLIA#: [id number]). Diagnostician: Asia Rodriguez | | | MDPathologistElectronically Signed 10/10/2019 | | | | | |PERFORMING LABORATORY: | | |The technical component was performed by [employer], [address] [place] [address] (Tire Manager: Asia Rodriguez MD; CLIA# [id number]). | | |[facility], [address] [place] [address] (Tire Manager: Solitario Recio M.D.; CLIA#: [id number]). | | | | | |Diagnostician: Asia [...] | | | POC | performed at [facility];[address] | g/dL | LABORATORY | | | | [place] | | | | | | [address] | | | | + + + + + + + + | Specimen | + + | | + + + + + + + | Performing | Address | City/State/Zipcode | Phone Number | | Organization | | | | + + + + + | [facility] | [address] | [place] [address] | [phone] | + + + + + Red [...] [facility] | | | COMMENT | [facility];[address] [facility] | | LABORATORY | | | | [address]vd;[place] [address] | | | | + + + + + + + + | Specimen | + + | | + + + + + + + | Performing | Address | City/State/Zipcode | Phone Number | | Organization | | | | + + + + + | [facility] | [address] | [place] [address] | [phone] | + + + + + POC [...] | | | POC | performed at [facility];888 | g/dL | LABORATORY | | | | [address];[place], [place] | | | | | | [address] | | | | + + + + + + + + | Specimen | + + | | + + + + + + + | Performing | Address | City/State/Zipcode | Phone Number | | Organization | | | | + + + + + | [facility] | [address] | [place] [address] | [phone] | + + + + + POC [...] | | | POC | performed at [facility];888 | g/dL | LABORATORY | | | | [address];[place] | | | | | | [address] | | | | + + + + + + + + | Specimen | + + | | + + + + + + + | Performing | Address | City/State/Zipcode | Phone Number | | Organization | | | | + + + + + | [facility] | [address] | [place] [address] | [phone] | + + + + + POC [...] | | | POC | performed at [facility];888 | g/dL | LABORATORY | | | | [address];[place], [place] | | | | | | [address] | | | | + + + + + + + + | Specimen | + + | | + + + + + + + | Performing | Address | City/State/Zipcode | Phone Number | | Organization | | | | + + + + + | [facility] | [address] | [place] [address] | [phone] | + + + + + Red [...] | [facility] | | | COMMENT | [facility];[address] | | LABORATORY | | | | [address];[place] [address] | | | | + + + + + + + + | Specimen | + + | | + + + + + + + | Performing | Address | City/State/Zipcode | Phone Number | | Organization | | | | + + + + + | [facility] | [address] | [place] [address] | [phone] | + + + + + Magnesium (10/07/2019 3:55 AM PDT) + + + + + + | Component | Value | Ref Range | Performed | Pathologist | | | | | At | Signature | + + + + + + | Magnesium | 1.6 (L)Comment: Testing | 1.7 - 2.4 mg/dL | [facility] | | | | performed at [facility];[address] | | LABORATORY | | | | [address];[place] | | | | | | [address] | | | | + + + + + + + + | Specimen | + + | Blood | + + + + + + + | Performing | Address | City/State/Zipcode | Phone Number | | Organization | | | | + + + + + | [facility] | [address] | [place] [address] | [phone] | + + + + + Type [...] + + + | BB BAND | [address] | | [facility] | | | | | | LABORATORY | | + + + + + + | UNIT # | [id number] | | [facility] | | | | [...] + + + | UNIT # | [id number] | | [facility] | | | | [...] + + + | UNIT # | [id number] | | [facility] | | | | [...] + + + | UNIT # | [id number] | | [facility] | | | | [...] | | | RESULT | performed at [facility] | | LABORATORY | | | | [address];[place], [place] | | | | | | [address] | | | | + + + + + + + + | Specimen | + + | Blood | + + + + + + + | Performing | Address | City/State/Zipcode | Phone Number | | Organization | | | | + + + + + | [facility] | [address] | [place] [address] | [phone] | + + + + + Basic [...] | >60Comment: GFR <60: | >60 | [facility] | | | GFR | CHRONIC [...] | | | | | | MDRD IDNC traceable | | | | | | equation.Testing | | | | | | performed at [facility];[address] | | | | | | [address];[place], [place] | | | | | | [address] | | | | + + + + + + + + | Specimen | + + | Blood | + + + + + + + | Performing | Address | City/State/Zipcode | Phone Number | | Organization | | | | + + + + + | [facility] | [address] | [place] [address] | [phone] | + + + + + CBC [...] | | | Absolute | performed at [facility];[address] | K/uL | LABORATORY | | | | [address];[place], [place] | | | | | | [address] | | | | + + + + + + + + | Specimen | + + | Blood | + + + + + + + | Performing | Address | City/State/Zipcode | Phone Number | | Organization | | | | + + + + + | [facility] | [address] | [place] [address] | [phone] | + + + + + Magnesium (10/06/2019 6:27 AM PDT) + + + + + + | Component | Value | Ref Range | Performed | Pathologist | | | | | At | Signature | + + + + + + | Magnesium | 1.6 (L)Comment: Testing | 1.7 - 2.4 mg/dL | [facility] | | | | performed at [facility];[address] | | LABORATORY | | | | [address];[place] | | | | | | [address] | | | | + + + + + + + + | Specimen | + + | Blood | + + + + + + + | Performing | Address | City/State/Zipcode | Phone Number | | Organization | | | | + + + + + | [facility] | [address] | [place] [address] | [phone] | + + + + + Basic [...] | | | | | | MDRD IDNC traceable | | | | | | equation.Testing | | | | | | performed at [facility], [address] | | | | | | [facility], | | | | | | [place] [address] | | | | + + + + + + + + | Specimen | + + | Blood | + + + + + + + | Performing | Address | City/State/Zipcode | Phone Number | | Organization | | | | + + + + + | [facility] | [address] | [place] [address] | [phone] | + + + + + CBC [...] | | | | | [place] [address] | | | | + + + + + + + + | Specimen | + + | Blood | + + + + + + + | Performing | Address | City/State/Zipcode | Phone Number | | Organization | | | | + + + + + | [facility] | [address] | [place] [address] | [phone] | + + + + + Magnesium (10/05/2019 5:02 AM PDT) + + + + + + | Component | Value | Ref Range | Performed | Pathologist | | | | | At | Signature | + + + + + + | Magnesium | 1.7Comment: Testing | 1.7 - 2.4 mg/dL | [facility] | | | | performed at [facility];[address] | | LABORATORY | | | | [address];[place] | | | | | | [address] | | | | + + + + + + + + | Specimen | + + | Blood | + + + + + + + | Performing | Address | City/State/Zipcode | Phone Number | | Organization | | | | + + + + + | [facility] | [address] | [place] [address] | [phone] | + + + + + Basic [...] | | | | | performed at [facility], [address] | | | | | | [address] [facility], | | | | | | [place] [address] | | | | + + + + + + + + | Specimen | + + | Blood | + + + + + + + | Performing | Address | City/State/Zipcode | Phone Number | | Organization | | | | + + + + + | [facility] | [address] | [place] [address] | [phone] | + + + + + CBC [...] | | | | | [place] [address] | | | | + + + + + + + + | Specimen | + + | Blood | + + + + + + + | Performing | Address | City/State/Zipcode | Phone Number | | Organization | | | | + + + + + | [facility] | [address] | [place] [address] | [phone] | + + + + + ECHO [...] | Procedure Note | + + | [facility], [id number] - 10/04/2019 12:10 PM PDT | | [...] [facility] | | | | performed at [facility];[address] | | LABORATORY | | | | [address];[place] | | | | | | [address] | | | | + + + + + + + + | Specimen | + + | Tissue - Both | | anterior nares (body | | structure) | + + + + + + + | Performing | Address | City/State/Zipcode | Phone Number | | Organization | | | | + + + + + | [facility] | [address] | [place] [address] | [phone] | + + + + + Zeinabime [...] | | | | | performed at [facility] | | | | | | [address];[place], [place] | | | | | | [address] | | | | + + + + + + + + | Specimen | + + | Blood | + + + + + + + | Performing | Address | City/State/Zipcode | Phone Number | | Organization | | | | + + + + + | [facility] | [address] | [place] [address] | [phone] | + + + + + Uric Acid (10/04/2019 4:26 AM PDT) + + + + + + | Component | Value | Ref Range | Performed | Pathologist | | | | | At | Signature | + + + + + + | Uric Acid | 3.2Comment: Testing | 3.2 - 8.6 mg/dL | [facility] | | | | performed at [facility], [address] | | LABORATORY | | | | [address], | | | | | | [place] [address] | | | | + + + + + + + + | Specimen | + + | Blood | + + + + + + + | Performing | Address | City/State/Zipcode | Phone Number | | Organization | | | | + + + + + | [facility] | [address] | [place] [address] | [phone] | + + + + + Lipid [...] | | | Calculated | performed at [facility], [address] | | LABORATORY | | | | [address], | | | | | | [place] [address] | | | | + + + + + + + + | Specimen | + + | Blood | + + + + + + + | Performing | Address | City/State/Zipcode | Phone Number | | Organization | | | | + + + + + | [facility] | [address] | [place] [address] | [phone] | + + + + + Comprehensive [...] | | | | | | MDRD [facility] traceable | | | | | | equation.Testing | | | | | | performed at [facility], [address] | | | | | | [facility], | | | | | | [place] [address] | | | | + + + + + + + + | Specimen | + + | Blood | + + + + + + + | Performing | Address | City/State/Zipcode | Phone Number | | Organization | | | | + + + + + | [facility] | [address] | [place] [address] | [phone] | + + + + + CBC [...] | | | Absolute | performed at [facility], [address] | K/uL | LABORATORY | | | | [address], | | | | | | [place] [address] | | | | + + + + + + + + | Specimen | + + | Blood | + + + + + + + | Performing | Address | City/State/Zipcode | Phone Number | | Organization | | | | + + + + + | [facility] | [address] | [place] [address] | [phone] | + + + + + Coronavirus (COVID-19) NAAT (10/04/2019 12:49 AM PDT) + + + + + + | Component | Value | Ref Range | Performed | Pathologist | | | | | At | Signature | + + + + + + | SARS-CoV-2, | NEGATIVEComment: This | NEG | [facility] | | | NAAT | test [...] | | | | | performed at [facility];[address] | | | | | | [address] [facility];[place], [place] | | | | | | [address] | | | | + + + + + + + + | Specimen | + + | Tissue - Entire | | nasopharynx (body | | structure) | + + + + + + + | Performing | Address | City/State/Zipcode | Phone Number | | Organization | | | | + + + + + | [facility] | [address] | [place] [address] | [phone] | + + + + + ECG [...] | | | | XIANG HART MD ([id number]) | | | | | | on [...] | | LABORATORY | | | | [address];[place] [address] | | | | + + + + + + + + | Specimen | + + | Blood | + + + + + + + | Performing | Address | City/State/Zipcode | Phone Number | | Organization | | | | + + + + + | [facility] | [address] | [place] [address] | [phone] | + + + + + Comprehensive [...] | >60Comment: GFR <60: | >60 | [facility] | | | GFR | CHRONIC [...] | | | | | performed at [facility];[address] | | | | | | [facility];[place], [place] | | | | | | [address] | | | | + + + + + + + + | Specimen | + + | Blood | + + + + + + + | Performing | Address | City/State/Zipcode | Phone Number | | Organization | | | | + + + + + | [facility] | [address] | [place] [address] | [phone] | + + + + + CBC [...] | | | Absolute | performed at [facility];[address] | K/uL | LABORATORY | | | | [address];[place], [place] | | | | | | [address] | | | | + + + + + + + + | Specimen | + + | Blood | + + + + + + + | Performing | Address | City/State/Zipcode | Phone Number | | Organization | | | | + + + + + | [facility] | [address] | [place] [address] | [phone] | + + + + + documented [...] | | | | | | Starting [facility] 10/12/19 at 1744 | | | [...]
--- OUTSIDE RECORDS SUMMARY | ~2019-11-02 | XMS | Encounter Summary ---
Demographics + + + | Address | [address] | | | [place] [address] | + + + | Home Phone | | + + + | Preferred Language | Unknown | + + + | Marital Status | Single | + + + | Samaritan Affiliation | BAP | + + + | Race | White | + + + | Ethnic Group | Not or | + + + Author + + + | Author | [facility] | + + + | Organization | [facility] | + + + | Address | Unknown | + + + | Phone | Unavailable | + + + Support + + +---------+ + | Name | Relationship | Address | Phone | + + +---------+ + | Lele Conley | ECON | Unknown | | + + +---------+ + Care Team Providers + +------+ + | Care Business Analysis Analyst Name | Role | Phone | [...] [address] | | | | | | [place], [place] | | | | | | [address] | | | +--------+ + + + [...]
--- OUTSIDE RECORDS SUMMARY | ~2019-11-02 | XMS | Clinical Summary ---
Demographics + + + | Address | [address] | | | [place] [address] | + + + | Home Phone | | + + + | Preferred Language | Unknown | + + + | Marital Status | Single | + + + | Jew Affiliation | BAP | + + + [...] Team Providers + +------+ + | Care Axle And Frame Mechanic Name | Role | Phone | + +------+ + | No Pcp Per Patient | PCP | Unavailable | + +------+ + Source Comments [facility] is fully live on both [facility] and [facility] In[facility] Allergies Not on File Medications [...] + +--------+ | MEDICARE | MEDICA | [id number] | 04/30/19 | [phone] | [address] | [address] | | | RE A & | | 08-Pre | [address] | [address] | [address] | | | [address] | | sent | | [place], [place] | | | | | | | | [address] | | + +--------+ +--------+ + +--------+ | PIPING ENGINEER MEDICAID | PIPING ENGINEER | [id number] | 10/31/19 | | | Medica | [...] | | | 0 (Home) | [place] [address] | + +--------+ +--------+ + +"
--- OUTSIDE RECORDS SUMMARY | ~2019-11-02 | XMS | Encounter Summary ---
Demographics + + + | Address | [address] | | | [place] [address] | + + + | Home Phone [...] + | Author | [facility] [employer] [facility] | + + + | Organization | [facility] | + + + | Address | Unknown | + + + | Phone | Unavailable | + + + Support + + +---------+ + | Name | Relationship | Address | Phone | + + +---------+ + | Lele Conley | ECON | Unknown | | + + +---------+ + Care Team Providers + +------+ + | Care Flight Communications Specialist Name | Role | Phone | [...] | | | Transcribed | [facility] | Beny Ayesha Catherine | | | | | [address] Mailcode: [address] | [place], [place] | | | | | [facility] | [address] | | | | | [place], [place] | [phone] | | | | | [address] | | | | | | [phone] | | | +--------+ + + + [...] 04/30/2007 12:00 AM PSTAssociated Order(s): OPERATION RECORD [id number] [place] [id number] Date: 04/30/2007 Attending Surgeon: Orlando Churchill M.D. Co-Surgeon: Rudolph Brewer M.D. Financial Operations Clerk(s): Jacky Morgan M.D. 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 Procedures Performed: Endovascular repair of abdominal aortic pseudoaneurysm. Anesthesia: General. 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 He has suitable anatomy for endovascular repair of the pseudoaneurysm, and is taken to surgery for this. Findings: 1. The repair was performed through a right femoral cutdown accessing the distal moncada of his right aortofemoral graft limb. 2. The aneurysm was repaired with 2 Zenc-crowd endovascular components. The most proximal component is [...] direct vision into the abdominal aorta. A 4-Palestinian pigtail catheter was then placed over the guidewire at approximately the level of the renal artery origins. A separate site on the graft limb was then punctured with an 18-gauge needle, and the guidewire advanced into the abdominal aorta. The patient was systematically heparinized at this point. A 16-Palestinian sheath was then placed over the guidewire [...] the right aortofemoral graft limb. An iliac construction superintendent that is 12 mm at the proximal [...] condition. Orlando Churchill M.D. OUSMANE / HS [id number] / [id number] / [id number] / Electronically signed by Orlando Churchill 05-13-2007 [...] Churchill MD - 04/30/2007 12:00 AM PST [id number] | | [id number] [place] [id number] Date: | | 04/30/2007 Attending Surgeon: Orlando Churchill M.D. Co-Surgeon: Rudolph Brewer M.D. | | Financial Operations Clerk(s): Leroy Jay M.D. Marc Arevalo M.D. 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 Postoperative Diagnosis(es): Abdominal aortic | | pseudoaneurysm. Procedures Performed: Endovascular repair of abdominal aortic | | pseudoaneurysm. Anesthesia: General. Indications: This is a 47-year-old man who was | | flown to [facility] with an abdominal aortic pseudoaneurysm at the [...] The aneurysm was repaired with 2 Zenith Myrl endovascular components. | | The most proximal [...] into the | | abdominal aorta. A 4-Palestinian pigtail catheter was then placed over the guidewire at | | approximately the level of the renal artery origins. A separate site on the graft limb | | was then punctured with an 18-gauge needle, and the guidewire advanced into the | | abdominal aorta. The patient was systematically heparinized at this point. A 16-Palestinian | | sheath was then placed over [...] aortofemoral graft limb. An | | iliac construction superintendent that is 12 mm at the proximal [...] condition. Orlando Churchill M.D. OUSMANE / REBEL [id number] / [id number] / [id number] / D: | | 04/30/2007 Electronically signed [...] direct vision into the abdominal aorta. A 4-Palestinian pigtail | | catheter was then placed over the guidewire at approximately the level of | | the renal artery origins. | | | | A separate site on the graft limb was then punctured with an 18-gauge | | needle, and the guidewire advanced into the abdominal aorta. The patient | | was systematically heparinized at this point. A 16-Palestinian sheath was then | | placed over [...] | | aortofemoral graft limb. An iliac construction superintendent that is 12 mm at the proximal [...] | | GJL / HS | | [id number] / [id number] / [id number] / | | | | | | | | | | | | Electronically signed by Orlando Churchill 05-13-2007 01:33:44 PM | | | | | + + documented in this encounter Visit Diagnoses Not on filedocumented in this encounter"
--- OUTSIDE RECORDS SUMMARY | ~2019-11-02 | XMS | Clinical Summary ---
Demographics + + + | Address | [address] | | | [place] [address] | + + + | Home Phone | | + + + | Preferred Language | Unknown | + + + | Marital Status | Single | + + + | Denominational Affiliation | 1009 | + + + | Race | White | + + + | Ethnic Group | Not or | + + + Author + + + | Author | [facility] | | | and [place] | + + + | Organization | [facility] | | | [...] Team Providers + +------+ + | Care Financial Investment Adviser Name | Role | Phone | + [...] automatically from request for surgery | | [id number] | + + Encounters +--------+ + + + + | Date | Type | Specialty | Care Team | Description | +--------+ + + + + | 10/24/ | Office | Vascular Surgery | Ricci De León, CLYDE | PAD (peripheral | | 2020 | Visit | | | artery disease) | | | | | | ([facility]) (Primary Dx); | | | | | [...] Medicine | Jairo Renner MD | 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 | | Latoya Oh DO | right aorto femoral | | | | | Chyna Thomas MD | bypass (Primary | | 10/15/ | | | Tera Vázquez | Dx); Peripheral | | 2019 | | | Jose Logan MD | arterial disease | | | | | Mundo Pack | ([facility]); | | | | | Poli Powell MD | Pseudoaneurysm | | | | | | ([facility]); Peripheral | | | | | | arterial disease | | | | | | ([facility]); Cellulitis of | | | | | | right foot; | | | | | | 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 ([facility]); | | | | | [...] [place] | | | | | | [address] | | | | | | | | +--------+ + + + + | 11/07/ | Office | Vascular Surgery | Ricci De León DNP | | | 2019 | Visit | | [address] | | | | | | [place] | | | | | | [address] | | | | | | | [...] Lot | + +-------+------+ +--------+--------+--------+ | Graft [place] Propaten [id number] | Graft | | [facility] GORE - | | | [id number] | | - [id number]: | | | WLGO | | | 50A | | Qty: 1 on 10/07/2019 by | | | | | | /[id number] | | Magdiel Arteaga MD at [facility] | | | | | | [id number] | | [facility] | | | | | | 5 /NA | | CENTER | | | | | | | + +-------+------+ +--------+--------+--------+ | Graft Hemgrd Knit [id number] - | Graft | | MAQUET | | | [id number] | | [id number]: Qty: 1 | | | CARDIOVASCU | | | 8-40 | | on 10/07/2019 by Magdiel Arteaga | | | LAR US | | | /[id number] | | MD Norma at [facility] | | | SALES - | | | [address] | [facility] | | | MAQU | | | /[id number] | + +-------+------+ +--------+--------+--------+ | Graft Vas Propaten 6-80mm - | Graft | | NEPTALI MELGAR - | | 02/22/ | [id number] | | [id number]: Qty: | | | WLGO | | 2022 | 80A | | 1 on 10/08/2019 by Chandler, | | | | | | /[id number] | | Magdiel Green MD at [facility] | | | | | | 29PP01 | | [facility] | | | | | | 1 /NA | + +-------+------+ +--------+--------+--------+ | Graft Vas Propaten 6-80mm - | Graft | | WL RAMÓN - | | 06/27/ | [id number] | | [id number]: Qty: | | | WLGO | | 2024 | 80A | | 1 on 10/08/2019 by Chandler, | | | | | | /[id number] | | Magdiel Green MD at [facility] | | | | | | [id number] | | [facility] | | | | | | 2 [...] | | 9:22 AM | ([facility]) Peripheral | | | (91261) | | PDT | arterial disease | | | | | | ([facility]) | | + +--------+ + + + | BYPASS GRAFT | | 10/08/2019 | Pseudoaneurysm | | | FEMORAL-POPLITEAL | | 9:22 AM | ([facility]) Peripheral | | | | | PDT | arterial disease | | | | | | ([facility]) | | + +--------+ + + + | THROMBECTOMY / | | 10/08/2019 | Pseudoaneurysm | | | EMBOLECTOMY | | 9:22 AM | ([facility]) Peripheral | | | | [...] LABORATORY | | | | performed at [facility], [address] | | | | | [address], | | | | | | [place] [address] | | | | + + + + + + + + | Specimen | + + | Blood | + + + + + + + | Performing | Address | City/State/Zipcode | Phone Number | | Organization | | | | + + + + + | [facility] | [address] | [place] [address] | [phone] | + + + + + Potassium [...] [facility] | | | | performed at [facility];[address] | mmol/L | LABORATORY | | | | [address];[place], [place] | | | | | | [address] | | | | + + + + + + + + | Specimen | + + | Blood | + + + + + + + | Performing | Address | City/State/Zipcode | Phone Number | | Organization | | | | + + + + + | [facility] | [address] | [place] [address] | [phone] | + + + + + Magnesium [...] Testing | 1.7 - 2.4 mg/dL | [facility] | | | | performed at [facility];[address] | | LABORATORY | | | | [address];[place], [place] | | | | | | [address] | | | | + + + + + + + + | Specimen | + + | Blood | + + + + + + + | Performing | Address | City/State/Zipcode | Phone Number | | Organization | | | | + + + + + | [facility] | [address] | [place] [address] | [phone] | + + + + + Basic [...] | | | | | performed at [facility], [address] | | | | | | [address], | | | | | | [place] [address] | | | | + + + + + + + + | Specimen | + + | Blood | + + + + + + + | Performing | Address | City/State/Zipcode | Phone Number | | Organization | | | | + + + + + | [facility] | [address] | [place] [address] | [phone] | + + + + + Phosphorus [...] Testing | 2.3 - 4.8 mg/dL | [facility] | | | | performed at [facility];[address] | | LABORATORY | | | | [address];[place], [place] | | | | | | [address] | | | | + + + + + + + + | Specimen | + + | Blood | + + + + + + + | Performing | Address | City/State/Zipcode | Phone Number | | Organization | | | | + + + + + | [facility] | [address] | [place] [address] | [phone] | + + + + + Hemoglobin [...] [facility] | | | | performed at [facility] | | LABORATORY | | | | [address];[place] | | | | | | [address] | | | | + + + + + + + + | Specimen | + + | Blood | + + + + + + + | Performing | Address | City/State/Zipcode | Phone Number | | Organization | | | | + + + + + | [facility] | [address] | [place] [address] | [phone] | + + + + + Clostridium [...] at | | | | | | [facility];[address] [place] [address] | | | | | | [facility];[place] [address] | | | | + + + + + + + + | Specimen | + + | Stool - Stool | | specimen (specimen) | + + + + + + + | Performing | Address | City/State/Zipcode | Phone Number | | Organization | | | | + + + + + | [facility] | [address] | [place] [address] | [phone] | + + + + + Red [...] + + + | BB BAND | [id number] | | [facility] | | | | | | LABORATORY | | + + + + + + | UNIT # | [id number] | | [facility] | | | | [...] | | | RESULT | performed at [facility];[address] | | LABORATORY | | | | [address];[place] | | | | | | [address] | | | | + + + + + + | UNIT # | [id number] | | [facility] | | | | [...] | + + + + + | [facility] | [address] | [place] [address] | [phone] | + + + + + Red [...] | [facility] | | | COMMENT | [facility];[address] | | LABORATORY | | | | [address];[place] [address] | | | | + + + + + + + + | Specimen | + + | | + + + + + + + | Performing | Address | City/State/Zipcode | Phone Number | | Organization | | | | + + + + + | [facility] | [address] | [place] [address] | [phone] | + + + + + Comprehensive [...] | >60Comment: GFR <60: | >60 | [facility] | | | GFR | [...] | | | | | performed at [facility];[address] | | | | | | [facility];[place], [place] | | | | | | [address] | | | | + + + + + + + + | Specimen | + + | Blood | + + + + + + + | Performing | Address | City/State/Zipcode | Phone Number | | Organization | | | | + + + + + | [facility] | [address] | [place] [address] | [phone] | + + + + + Urinalysis [...] - 1.030 | [facility] | | | [place], | | | LABORATORY | | | [...] [place] | | | | | | [address] | | | | + + + [...] | + + + + + | [facility] | [address] | [place] [address] | [phone] | + + + + + Osmolality, Urine (10/11/2019 11:16 AM PDT) + + + + + + | Component | Value | Ref Range | Performed | Pathologist | | | | | At | Signature | + + + + + + | OSMO URINE | 239Comment: Testing | 50 - 1,200 | [facility] | | | | performed at [facility], [address] | mOsm/kg | LABORATORY | | | | [address], | | | | | | [place] [address] | | | | + + [...] | + + + + + | [facility] | [address] | [place] [address] | [phone] | + + + + + Culture, [...] | | LABORATORY | | | | Blvd;[place] [address] | | | | + + + + + + | RESULT | NO GROWTH 6 DAYS | | [facility] | | | | | | LABORATORY | | + + + + + + | RESULT | Testing performed at | | [facility] | | | | [facility], [address] | | LABORATORY | | | | [place] | | | | | | [address]Xjegxva: Testing | | | | | | performed at [facility], [address] | | | | | | [address], [place] | | | | | | [address] | | | | + + + + + + + + | Specimen | + + | Blood - Swab of line | | insertion site | | (specimen) | + + + + + + + | Performing | Address | City/State/Zipcode | Phone Number | | Organization | | | | + + + + + | [facility] | [address] | [place] [address] | [phone] | + + + + + XR [...] Procedure Note | + + | Espinoza, [id number] - 10/11/2019 10:42 AM PDT | | [...] [facility] | | | | performed at [facility];[address] | mmol/L | LABORATORY | | | | [address];[place] | | | | | | [address] | | | | + + + + + + + + | Specimen | + + | Blood | + + + + + + + | Performing | Address | City/State/Zipcode | Phone Number | | Organization | | | | + + + + + | [facility] | [address] | [place] [address] | [phone] | + + + + + Osmolality, Serum (10/11/2019 9:30 AM PDT) + + + + + + | Component | Value | Ref Range | Performed | Pathologist | | | | | At | Signature | + + + + + + | Osmolality, | 262 (L)Comment: Testing | 280 - 301 | [facility] | | | Serum | performed at [facility], [address] | mOsm/kg | LABORATORY | | | | [address], | | | | | | [place] [address] | | | | + + + + + + + + | Specimen | + + | Blood | + + + + + + + | Performing | Address | City/State/Zipcode | Phone Number | | Organization | | | | + + + + + | [facility] | [address] | [place] [address] | [phone] | + + + + + CBC [...] | | | Absolute | performed at [facility];[address] | K/uL | LABORATORY | | | | [address];[place] | | | | | | [address] | | | | + + + + + + + + | Specimen | + + | Blood | + + + + + + + | Performing | Address | City/State/Zipcode | Phone Number | | Organization | | | | + + + + + | [facility] | [address] | [place] [address] | [phone] | + + + + + Lactic Acid (10/09/2019 5:12 AM PDT) + + + + + + | Component | Value | Ref Range | Performed | Pathologist | | | | | At | Signature | + + + + + + | Lactate, | 1.8Comment: Testing | 0.4 - 2.0 | [facility] | | | Serum | performed at [facility];[address] | mmol/L | LABORATORY | | | | [address];[place] | | | | | | [address] | | | | + + + + + + + + | Specimen | + + | Blood | + + + + + + + | Performing | Address | City/State/Zipcode | Phone Number | | Organization | | | | + + + + + | [facility] | [address] | [place] [address] | [phone] | + + + + + Procalcitonin [...] | | | | | | at [facility];[address] | | | | | | [address] [address] | | | | + + + + + + + + | Specimen | + + | Blood | + + + + + + + | Performing | Address | City/State/Zipcode | Phone Number | | Organization | | | | + + + + + | [facility] | [address] | [place] [address] | [phone] | + + + + + POC [...] | | | POC | performed at [facility];[address] | | LABORATORY | | | | [address];[place], [place] | | | | | | [address] | | | | + + + + + + + + | Specimen | + + | | + + + + + + + | Performing | Address | City/State/Zipcode | Phone Number | | Organization | | | | + + + + + | [facility] | [address] | [place] [address] | [phone] | + + + + + PTT [...] KT | | | | performed at [facility];[address] | | LABORATORY | | | | [address];[place], [place] | | | | | | [address] | | | | + + + + + + + + | Specimen | + + | Blood | + + + + + + + | Performing | Address | City/State/Zipcode | Phone Number | | Organization | | | | + + + + + | [facility] | [address] | [place] [address] | [phone] | + + + + + POC [...] | | | POC | performed at [facility];[address] | g/dL | LABORATORY | | | | [address];[place] | | | | | | [address] | | | | + + + + + + + + | Specimen | + + | | + + + + + + + | Performing | Address | City/State/Zipcode | Phone Number | | Organization | | | | + + + + + | [facility] | [address] | [place] [address] | [phone] | + + + + + Red [...] | | | | | performed at [facility] | | | | | | [address];[place], [place] | | | | | | [address] | | | | + + + + + + + + | Specimen | + + | Blood - Artery, | | Radial, Right | + + + + + + + | Performing | Address | City/State/Zipcode | Phone Number | | Organization | | | | + + + + + | [facility] | [address] | [place] [address] | [phone] | + + + + + Surgical [...] attached red-white | | | fibromembranous tissue. Mother Baby Rn sections are submitted in | | | [...] | LABORATORY:The technical component was performed by [facility] | | | [employer], [address] [place] [address] (Cistern Room Working Supervisor: | | | Asia Rodriguez MD; CLIA# [id number]).Professional interpretation was | | | performed by [email or web address] [address] | | | [place] [address] (Cistern Room Working Supervisor: Solitario | | | Jacky Recio; CLIA#: [id number]). Diagnostician: Asia Rodriguez | | | MDPathologistElectronically Signed 10/10/2019 | | | | | |PERFORMING LABORATORY: | | |The technical component was performed by [email or web address], [address] [place] [address] (Cistern Room Working Supervisor: Asia Rodriguez MD; CLIA# [id number]). | | |Professional interpretation was performed by [email or web address], [address] [place] [address] (Cistern Room Working Supervisor: Solitario Recio M.D.; [facility]#: [id number]). | | | | | |Diagnostician: Asia [...] Procedure Note | + + | Espinoza [id number] - 10/04/2019 12:10 PM PDT | | [...] [facility] | | | | performed at [facility] | | LABORATORY | | | | [address];[place] | | | | | | [address] | | | | + + + [...] [facility]AT[facility] | [address] | [place] [address] | [phone] | + + + + + Lipid [...] | | | Calculated | performed at [facility], [address] | | LABORATORY | | | | [address], | | | | | | [place] [address] | | | | + + + + + + + + | Specimen | + + | Blood | + + + + + + + | Performing | Address | City/State/Zipcode | Phone Number | | Organization | | | | + + + + + | [facility] | [address] | [place] [address] | [phone] | + + + + + Uric Acid (10/04/2019 4:26 AM PDT) + + + + + + | Component | Value | Ref Range | Performed | Pathologist | | | | | At | Signature | + + + + + + | Uric Acid | 3.2Comment: Testing | 3.2 - 8.6 mg/dL | [facility] | | | | performed at [facility], [address] | | LABORATORY | | | | [address], | | | | | | [place] [address] | | | | + + + + + + + + | Specimen | + + | Blood | + + + + + + + | Performing | Address | City/State/Zipcode | Phone Number | | Organization | | | | + + + + + | [facility] | [address] | [place] [address] | [phone] | + + + + + Coronavirus (COVID-19) NAASerenity (10/04/2019 12:49 AM PDT) + + + + + + | Component | Value | Ref Range | Performed | Pathologist | | | | | At | Signature | + + + + + + | SARS-CoV-2, | NEGATIVEComment: This | NEG | [facility] | | | NAAT | [...] | | | | | performed at [facility];[address] | | | | | | [facility];[place], [place] | | | | | | [address] | | | | + + + + + + + + | Specimen | + + | Tissue - Entire | | nasopharynx (body | | structure) | + + + + + + + | Performing | Address | City/State/Zipcode | Phone Number | | Organization | | | | + + + + + | [facility] | [address] | [place] [address] | [phone] | + + + + + ECG [...] | | | | ELLA HART MD ([id number]) | | | | | | on [...] +---------+--------+ | [employer]MIN | [place] | [id number] | 10/03/19 | | | Indemn | | | COMMUN | | 20-Pre | | | ity | | | ITY | | sent | | | | | | CARE | | | | | | + +--------+ +--------+ +---------+--------+ | [employer]MIN | [place] | [id number] | | | | Indemn | | | NS | | 009-Pr | | | ity | | | ADMIN | | esent | | | | | | [place] | | | | | | | | [place] | | | | | | + +--------+ +--------+ +---------+--------+ | MEDICARE | MEDICA | [id number] | 04/30/19 | [phone] | | Medica | | | RE | | 08-Pre | 5 | | re | | | PART A | | sent | | | | | | AND B | | | | | | + +--------+ +--------+ +---------+--------+ | MEDICAID [place] | MEDICA | [id number] | 05/31/19 | [phone] | | Medica [...] Self | [birth year] [address] | | | al/Fam | | 1960 | [phone] | [address] [place], | | | [place] | | | [address] (Home) | [place] [address] | + +--------+ +--------+ + + | Jairo Theodore | Person | Self | [birth year] | [address] | | | al/Fam | | 1960 | [phone] [address] [place], | | | [place] | | | [address] (Home) | [place] [address] | + +--------+ +--------+ + + Advance Directives + + + + + | Type | Date Recorded | Patient | Explanation | | | | Mother Baby Rn | | + + + + + | Power of | | | | | Clerical Methods Analyst | | | | + + + [...]
--- OUTSIDE RECORDS SUMMARY | ~2019-11-02 | XMS | Encounter Summary ---
Demographics + + + | Address | [address] | | | [place] [address] | + + + | Home Phone [...] Team Providers + +------+ + | Care Director Music Name | Role | Phone | + [...] | | | | nscribed | | [facility] | | | | | | [place] [address] | | | | | | [phone] | | +--------+ + + + + [...] Bina Harrington - 05/13/2007 1:35 PM PDT [id number] 8005/02/2007 [id number] [place] [id number] Admission Date: 04/29/2007 Discharge Date: 05/02/2007 Staff Physician: Bina Harrington N.P. ADDENDUM The patient phoned prescription of Keflex 500 mg p.o. q.i.d. x5 days to [facility] at [phone]. Bina Harrington N.P. / [id number] / [id number] / [id number] / Reviewed or Edited By Bina Harrington on 05-04-2007 Electronically signed by Orlando Churchill 05-13-2007 01:33:53 PM documented in this encounter Plan of Treatment Not on filedocumented as of this encounter Visit Diagnoses Not on filedocumented in this encounter"
--- OUTSIDE RECORDS SUMMARY | ~2019-11-02 | XMS | Encounter Summary ---
Demographics + + + | Address | [address] | | | [place] [address] | + + + | Home Phone [...] Author + + + | Author | [facility] | + + + | Organization | [facility] [email or web address] | + + + | Address | Unknown | + + + | Phone | Unavailable | + + + Support + + +---------+ + | Name | Relationship | Address | Phone | + + +---------+ + | Lele Conley | ECON | Unknown | | + + +---------+ + Care Team Providers + +------+ + | Care Pole Truck Driver Name | Role | Phone | + +------+ + PCP | Unavailable | + +------+ + Encounter Details +--------+ + + + + | Date | Type | Department | Care Team | Description | +--------+ + + + + | 04/30/ | Respiratory | Respiratory | Nikita Holliday | | | 2007 | Therapy | Therapy [address] [facility] | [phone] | | | | | [address] | | | | | | Mailcode: UHS13 | | | | | | [place], [place] | | | | | | [address] | | | | | | [phone] | | | +--------+ + + + [...] Caputo, | | | | | | TEST DESK TROUBLE LOCATOR | | | | + + + [...] [facility] | [address] | [place], [place] | | | THERAPY | [facility] | [address] | | + + + + + | [facility] | [address] | [place], [place] | | | THERAPY | [facility] | [address] | | + + + + + [...] | THERAPY | | | | Moy, TEST DESK TROUBLE LOCATOR | | | | + + + [...] [facility] | [address] | [place], [place] | | | THERAPY | [address] | [address] | | + + + + + | [facility] | [address] | [place], [place] | | | THERAPY | [address] | [address] | | + + + + + documented in this encounter Visit Diagnoses Not on filedocumented in this encounter"
--- OUTSIDE RECORDS SUMMARY | ~2019-11-02 | XMS | Encounter Summary ---
Demographics + + + | Address | [address] | | | [place] [address] | + + + | Home Phone [...] Team Providers + +------+ + | Care Tear Down Worker Name | Role | Phone | + [...] [address] | | | | | | [place] [address] | | +--------+ + + + + [...] Roman Reynoso - 05/13/2007 1:34 PM PDT [id number] [place] [id number] Admission Date: 04/29/2007 Discharge Date: 05/02/2007 Staff [...] abdominal aortic pseudoaneurysm. He was transferred to [facility] via [facility] for definitive care. During [...] appointment. I also e-mailed the Vascular Surgery senior power scheduler with the patient's information to call the patient to schedule appointment as well. The patient should also follow up with his primary care doctor in 1 to 2 weeks and is to call to schedule appointment. Jacky Elizabeth M.D. PDF / HS [id number] / [id number] / [id number] / Reviewed or Edited By Roman Swartz M.D. on 05-10-2007 Electronically signed by Orlando Churchill 05-13-2007 01:33:23 PM documented in this encounter Plan of Treatment Not on filedocumented as of this encounter Visit Diagnoses Not on filedocumented in this encounter"
--- OUTSIDE RECORDS SUMMARY | ~2019-11-02 | XMS | Encounter Summary ---
Demographics + + + | Address | [address] | | | [place] [address] | + + + | Home Phone [...] + + + | Author | [facility] [employer] [facility] | + + + | Organization | [facility] | + + + | Address | Unknown | + + + | Phone | Unavailable | + + + Support + + +---------+ + | Name | Relationship | Address | Phone | + + +---------+ + | Lele Conley | ECON | Unknown | | + + +---------+ + Care Team Providers + +------+ + | Care Clinical Laboratory Manager Name | Role | Phone | [...] [address] | | | | | | [place], [place] | | | | | | [phone] | | | +--------+ + + + [...]
--- OUTSIDE RECORDS SUMMARY | ~2019-11-02 | XMS | Encounter Summary ---
Demographics + + + | Address | [address] | | | [place] [address] | + + + | Home Phone | | + + + | Preferred Language | Unknown | + + + | Marital Status | Single | + + + | Worship Affiliation | BAP | + + + | Race | White | + + + | Ethnic Group | Not or | + + + Author + + + | Author | [facility] | + + + | Organization | [facility] | + + + | Address | Unknown | + + + | Phone | Unavailable | + + + Support + + +---------+ + | Name | Relationship | Address | Phone | + + +---------+ + | Lele Conley | ECON | Unknown | | + + +---------+ + Care Team Providers + +------+ + | Care Radio Machinist Name | Role | Phone | + [...] | | | | Physicians [facility], | [place], [place] | | | | | [address] [place] [address] | [address] | | | | | [place], [place] | [phone] | | | | | [address] | | | | | | [phone] | | | +--------+ + + + [...] Jairo know this was called to his [facility] in [place] at [phone]. 10 :25 AM PDTTelephone Encounter - Nicolas [...]
--- OUTSIDE RECORDS SUMMARY | ~2019-11-02 | XMS | Encounter Summary ---
Demographics + + + | Address | [address] | | | [place] [address] | + + + | Home Phone | | + + + | Preferred Language | Unknown | + + + | Marital Status | Single | + + + | Shinto Affiliation | BAP | + + + | Race | White | + + + | Ethnic Group | Not or | + + + Author + + + | Author | [facility] | + + + | Organization | [facility] | + + + | Address | Unknown | + + + | Phone | Unavailable | + + + Support + + +---------+ + | Name | Relationship | Address | Phone | + + +---------+ + | Lele Conley | ECON | Unknown | | + + +---------+ + Care Team Providers + +------+ + | Care Utilization Management Um Nurse Name | Role | Phone | + [...] | | | | | [facility] | [facility] | | | | | [address] Mailcode: [address] | [place], [place] | | | | | [facility] | [address] | | | | | [place], [place] | [phone] | | | | | [address] | | | | | | [phone] | | | +--------+ + + + [...] + + + + | PRODUCT | [id number] | | [facility] | | | UNIT [...] DEPARTMENT OF | [address] | [place] [address] | | | PATHOLOGY | [address] | | | + + + + + | [facility] DEPARTMENT OF | [address] | [place] [address] | | | PATHOLOGY | [address] [...] DEPARTMENT OF | [address] | [place] [address] | | | PATHOLOGY | [address] | | | + + + + + | [facility] | [address] | [place] [address] | | | PATHOLOGY | [address] | | | + + + + + documented in this encounter Visit Diagnoses Not on filedocumented in this encounter"
--- OUTSIDE RECORDS SUMMARY | ~2019-11-02 | XMS | Encounter Summary ---
Demographics + + + | Address | [address] | | | [place] [address] | + + + | Home Phone | | + + + | Preferred Language | Unknown | + + + | Marital Status | Single | + + + | Jain Affiliation | [id number] | + + + [...] Team Providers + +------+ + | Care Fork Lift Mechanic Name | Role | Phone | [...] + + | 10/06/ | Anesthesia | [facility] | Rudolph Lowery | | | 2020 | Event | [facility] | [address] | | | | | [address] | [address] | | | | | [address] | [place] [address] | | | | | [place], [place] | [phone] | | | | | [address] | | | | | | [phone] | | | +--------+ + + + [...] +----+---+ + + | | 0 | [place] | | | | 8 | [...] Amanda Tim RN | | IV | tqib-iye-mpnsaw catheter system; | | | | | [...] EVALUATION Jairo Theodore 59 y.o. male 1960 [id number] Procedure(s) REPAIR PSEUDOANEURYSM- FEMORAL (Right ) Cooperates? [...] Rudolph Lowery MD 10/07/2019 4:54 PM PDT [facility] [...] EVALUATION Jairo Theodore 59 y.o. male 1960 [id number] Procedure(s): REPAIR PSEUDOANEURYSM- FEMORAL (Right ) Medical,anesthesia, [...] who presents as a tra nsfer from [facility] ED for pseudoaneurysm of the [...] NOTE Jairo Theodore 59 y.o. male 1960 [id number] REPAIR PSEUDOANEURYSM- FEMORAL (Right ) HANDOFF NOTE [...] Rudolph Lowery MD 10/07/2019 4:45 PM PDT [facility] [...] [place] | | | | | | [phone] | | | | | | | [...] 20 7:27 | | | | | 88/20 at 0727, Anesthesia | | AM PDT [...] +---+---+---+ | Red Blood Cells | New | 10/07/19 | | | | | [...]
--- OUTSIDE RECORDS SUMMARY | ~2019-11-02 | XMS | Encounter Summary ---
Demographics + + + | Address | [address] | | | [place] [address] | + + + | Home Phone | | + + + | Preferred Language | Unknown | + + + | Marital Status | Single | + + + | Caodaism Affiliation | 1009 | + + + | Race | White | + + + | Ethnic Group | Not or | + + + Author + + + | Author | [facility] | | | and [place] | + + + | Organization | [facility] | | | and [...] Team Providers + +------+ + | Care Etched Circuit Processor Name | Role | Phone | + +------+ + | No, Physician | PCP | Unavailable | + +------+ + Encounter Details +--------+ + + + + | Date | Type | Department | Care Team | Description | +--------+ + + + + | 10/06/ | Anesthesia | [facility] | Rudolph Lowery | | | 2020 | Event | [facility] | [address] | | | | | [address] | [address] | | | | | [address] | [place] [address] | | | | | [place], [place] | [phone] | | | | | [address] | | | | | | [phone] | Hossein Gregorio, Taisha, | | | | | | DRUG REGULATORY AFFAIRS SPECIALIST [address] [facility] | | | | | | [place] [address] | | | | | | [phone] | | | | | | | [...] EVALUATION Jairo Covarrubiases 59 y.o. male 1960 [id number] Procedure(s): REPAIR PSEUDOANEURYSM- FEMORAL (Right ) Medical,anesthesia, [...] who presents as a tra nsfer from [facility] ED for pseudoaneurysm of the right groin [...] [place] | | | | | | [address] | | | | | | | | +--------+ + + + + | 11/07/ | Office | Vascular Surgery | Ricci De León DNP | | 2019 | Visit | | [address] | | | | | | [place] | | | | | | [address] | | | | | | | | +--------+ + + + + documented as of this encounter Visit Diagnoses Not on filedocumented in this encounter"
--- OUTSIDE RECORDS SUMMARY | ~2019-11-02 | XMS | Encounter Summary ---
Demographics + + + | Address | [address] | | | [place] [address] | + + + | Home Phone [...] Author + + + | Author | [facility] | | | and [place] | + + + | Organization | [facility] | | | and [...] Team Providers + +------+ + | Care Peripatologist Name | Role | Phone | + [...] + + | 10/07/ | Surgery | [facility] | Magdiel Arteaga MD | THROMBECTOMY / | | 2019 | [facility] | [address] | EMBOLECTOMY of fem | | | | OPERATING RO[address] | [address] | fem bypass | | | | [address] | [place] [address] | | | | | [place], [place] | [phone] | | | | | [address] | | | | | | [phone] | | | +--------+---------+ + + + [...] GRAFT FEMORAL-POPLITEAL (Bilateral) ANGIOGRAM - EXTREMITY BILATERAL (89754) (Bilateral) Chief Complaint: No chief complaint on [...] who was admitted on 10/03/2019 Transfer from [facility] with bilateral hip and pelvic burning [...] have wound check in 2 weeks wit [facility] to provide transportation, continue with aspirin 81 mg daily, Plavix 75 mg daily, atorv astatin 40 mg daily. Active Problems: Alcohol abuse/ Tobacco abuse advised to stop smoking and drinking Cellulitis of right foot has been completely treated with Augmentin while in the hospital Discharge Information: Follow [facility] Bob [facility] [address] Follow up for Home health Wound Care [facility] [address] [place] [phone] Follow up Wound Care and Physical [...] you recover. Don t drive for at [id number] after your surgery or while you are [...] Herve last reviewed this educational content on 11/29/201819998336-8429 [employer]. [address] [place] [address], [place] [address]. All righ ts reserved. This information is [...] of developing AAA decreases. To learn more Smokefree.gov/pmqt-qv-xo-expert National Cancer [place] Smoking Quitline:961-67A-OSUM (515-125-4523) [employer] last reviewed this educational content on 12/30/201819991860-4222 [employer]. [address] [place] [address], [place] [address]. All righ ts reserved. This information is [...] find a support program: Free national quitline 740-OBEO-JOM (502-227-0499) [facility] quit-smoking programs [employer] 378-244-5791 [employer] 217-475-5426 Support at home is important too. Family and friends can offer praise and reassurance. If t he smoker in your life finds it hard to quit, encourage them to keep trying. Try bwyt-hla-hexhmqr medicine Nicotine replacement therapymay make iteasier to [...] to quit smoking, try these resources: www.cdc.gov/tobacco/quit_smoking/ 236-GQSV-LAH (010-258-9089) www.smokefree.gov 991-41U-PFTG (595-197-9471) www.lung.org/stop-smoking/ 800-LUNGUSA (056-832-9647) [facility] Foundation[facility] lynn reviewed this educational content on 01/29/201919997422-9347 [employer]. [address] [place] [address]. All righ ts reserved. This information is [...] C - 10/16/2019 7:20 AM PDT [facility] Service: Vascular Surgery Progress Note Hospital Day: LOS: 13 days Post-Op Day: 11/06 SUBJECTIVE Patient Summary: The patient is a 59 y.o. 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 He unde rwent aortobifemoral bypass in [...] scan which revealed enlargement of known right B[employer] POL[employer]ER pseudoaneurysm. He was transferred to [facility] for evaluation and Vascular was consulted [...] 10/15/2019 10:30 AM PDT . Jairo Theodore [id number] Hospital Day: 12 SUBJECTIVE Events Overnight: Patient [...] right to left femoral to [facility] with 8 mm PTFE. Continue with [...] been in touch with his Merrill, Lele [phone] and he did not want me to [...] and management as well as Computerized Physician Senior Account Clerk. Dictation software, Yarraa, used which may contain error for similar sounding words even af ter review. Portions of this chart may have been copied from previous notes for continuity of care. Mundo Pack MD, FACP, FAAP 10/15/2019 il son, Chelsi Hebert PA-C - 10/15/2019 8:47 AM PDT [facility] Service: Vascular Surgery Progress Note [...] history of alcohol abuse who presented to [facility] with com plaints of cellulitis of right leg as well as enlarging pseudoaneurysm of right B[employer]ACE [employer] POL[employer]ER. He unde rwent aortobifemoral bypass in [...] scan which revealed enlargement of known right B[employer] POL[employer]ER pseudoaneurysm. He was transferred to [facility] for evaluation and Vascular was consulted [...] swelling. Call with any neurovascular changes. Appr [facility] assistance with management of this patient. [...] - 10/14/2019 9:23 AM PDT Jairo Theodore [id number] Hospital Day: 11 SUBJECTIVE Events Overnight: Patient [...] been in touch with his Merrill, Lele [phone] and he did not want me to [...] and management as well as Computerized Physician Senior Account Clerk. Dictation software, Yarraa, used which may contain error for similar sounding words even af ter review. Portions of this chart may have been copied from previous notes for continuity of care. Mundo Pack MD, FACP, FAAP 10/14/2019 il son, Chelsi Hebert PA-C - 10/14/2019 8:44 AM PDT [facility] Service: Vascular Surgery Progress Note [...] history of alcohol abuse who presented to [facility] with com plaints of cellulitis of right leg as well as enlarging pseudoaneurysm of right B[employer] POL[employer]ER. He unde rwent aortobifemoral bypass in [...] scan which revealed enlargement of known right [employer]ER pseudoaneurysm. He was transferred to [facility] for evaluation and Vascular was consulted [...] 1.7 Estimated Energy Needs Energy Calorie Requirements: 4743-6157(28-32 kcal/kg per 54.3 kg admit wt ) [...] C - 10/13/2019 10:33 AM PDT [facility] Service: Vascular Surgery Progress Note [...] history of alcohol abuse who presented to [facility] with com plaints of cellulitis of right leg as well as enlarging pseudoaneurysm of right BEVEL FACE [employer]ER [employer] POLISHER. He unde rwent aortobifemoral bypass in [...] scan which revealed enlargement of known right [employer]ER pseudoaneurysm. He was transferred to [facility] for evaluation and Vascular was consulted [...] different from t wyatt original. Jairo Theodore [id number] Hospital Day: 10 SUBJECTIVE Events Overnight: Patient [...] right to left femoral to femoral artery [facility] with 8 mm PTFE. Continue with [...] been in touch with his Merrill, Lele [phone] and he did not want me to [...] and management as well as Computerized Physician Senior Account Clerk. Dictation software, Yarraa, used which may contain error for similar [...] different from the orig inal. Jairo Theodore [id number] Hospital Day: 9 SUBJECTIVE Events Overnight: Patient [...] right to left femoral to femoral artery [facility] with 8 mm PTFE. Continue with [...] been in touch with his Merrill, Lele [phone] and he did not want me to [...] and management as well as Computerized Physician Senior Account Clerk. Dictation software, Yarraa, used which may contain error for similar sounding words even af ter review. Portions of this chart may have been copied from previous notes for continuity of care. Mundo Pack MD, FACP, FAAP 10/12/2019 il son, Chelsi Hebert PA-C - 10/12/2019 9:17 AM PDT [facility] Service: Vascular Surgery Progress Note [...] history of alcohol abuse who presented to [facility] with com plaints of cellulitis of right leg as well as enlarging pseudoaneurysm of right [employer] POL[employer]ER. He unde rwent aortobifemoral bypass in [...] scan which revealed enlargement of known right [employer]ER pseudoaneurysm. He was transferred to [facility] for evaluation and Vascular was consulted [...] Color, UA YELLOW Clarity, Urine CLEAR Specific [place], Urine 1.008 1.002 - 1.030 Leukocyte esterase, [...] BANK. BLOOD BANK COMMENT Testing performed at [facility];[address] [place] [address] Type and Screen Collection Time: 10/12/19 7:52 AM Result Value Ref Range ABO Rh A POSITIVE Antibody Screen NEGATIVE BB BAND [id number] BB BAND Testing performed at [facility];[address] [place] [address] UNIT # [id number] Product Code LEUKODEPLETED PC Unit Division 00 Unit Status ALLOCATED Transfusion Status OK TO TRANSFUSE CROSSMATCH RESULT COMPATIBLE UNIT # [id number] Product Code LEUKODEPLETED PC Unit Division 00 [...] call wit h any neurovascular changes. [facility] assistance with management of this pat [...] be different from the originluis lWalter Theodore [id number] Hospital Day: 8 SUBJECTIVE Events Overnight: Patient [...] right to left femoral to femoral artery [facility] with 8 mm PTFE. Continue with [...] been in touch with his Merrill, Lele [phone] and he did not want me to [...] and management as well as Computerized Physician Senior Account Clerk. Dictation software, Yarraa, used which may contain error for similar sounding words even af ter review. Portions of this chart may have been copied from previous notes for continuity of care. Mundo Pack MD, FACP, FAAP 10/11/2019 il son, Chelsi Hebert PA-C - 10/11/2019 6:45 AM PDT [facility] Service: Vascular Surgery Progress Note [...] history of alcohol abuse who presented to [facility] with com plaints of cellulitis of right leg as well as enlarging pseudoaneurysm of right B[employer] FACE [employer] POLISHER. He unde rwent aortobifemoral bypass in [...] scan which revealed enlargement of known right B[employer] POL[employer]ER pseudoaneurysm. He was transferred to [facility] for evaluation and Vascular was consulted [...] Chelsi Arteaga PA-C 10/11/2019 Rachel Trinidad [facility] - 10/10/2019 11:59 AM PDTFormatting of [...] PO medications. Thank You, Rachel Cifuentes, PharmD, [facility] 10/10/19 11:59 AM PDT Arlene Crum P A-C - 10/10/2019 11:36 AM PDT [facility] Service: Vascular Surgery Progress Note [...] history of alcohol abuse who presented to [facility] with com plaints of cellulitis of right leg as well as enlarging pseudoaneurysm of right B[employer]ACE [employer] POL[employer]ER. He unde rwent aortobifemoral bypass in [...] scan which revealed enlargement of known right BEV[employer]ACE [employer]ER [employer] POL[employer]ER pseudoaneurysm. He was transferred to [facility] for evaluation and Vascular was consulted [...] might be different from the or iginal. [facility] Service: Ruby Developer Progress Note Jairo Theodore 59 y.o. [...] He was farnsworth sferred on 10/03/2019 from [facility] for right foot swelling and increase in [...] procedures. Tyler Elias MD 10/10/2019 Dictation software, Yarraa, was used which may contain error with similar sound words even after review. Portions of this chart may have been copied from previous notes for continuity of care. Daniella Arias RN - 10/09/2019 10:20 AM PDTFamily/ care director rn updated by pt. Chelsi Orta PA-C - 10/09/2019 7:08 AM PDT [facility] Service: Vascular Surgery Progress Note [...] history of alcohol abuse who presented to [facility] with com plaints of cellulitis of right leg as well as enlarging pseudoaneurysm of right BEVEL FACE [employer]ER AND POLISHER. He unde rwent aortobifemoral bypass in [...] scan which revealed enlargement of known right BEV[employer] POLISHER pseudoaneurysm. He was transferred to [facility] for evaluation and Vascular was consulted [...] Gr MD - 10/09/2019 1:28 AM PDT [facility] Service: Ruby Developer Progress Note Jairo Theodore 59 y.o. [...] He was farnsworth sferred on 10/03/2019 from [facility] for right foot swelling and increase in [...] procedures. Julian Gr MD 10/09/2019 Dictation software, Yarraa, was used which may contain error with [...] by vascular surgery. R eport given to CITIZENSHIP INSTRUCTOR. Pt safely transferred to room 65486. Incisions and dressings were teresa an and dry. Post tib and pedal pulses dopplerable. JADA SHINE RN Chyna Rashid MD - 10/08/2019 4:07 PM PDT [facility] Service: Hospitalist Progress Note Hospital Day: LOS: 5 days SUBJECTIVE Patient Summary: Mr. Theodore is a 59 yr old man active smoker 1ppday with alcohol abuse, hx of PAD, s/p right aorto bifemoral bypass in 1999 complicated by pseudoaneurysm, s/p revision, was transferred from [place] ED for right foot swelling and increasing [...] endarterectomy, right to left femoral to femoral [facility] on 10/07/19. Patient had an EBL [...] Rashid MD - 10/07/2019 3:55 PM PDT [facility] Service: Hospitalist Progress Note Hospital Day: LOS: 4 days SUBJECTIVE Patient Summary: Mr. Theodore is a 59 yr old man active smoker 1ppday with alcohol abuse, hx of PAD, s/p right aorto bifemoral bypass in 1999 complicated by pseudoaneurysm, s/p revision, was transferred from [facility] ED for right foot swelling and increasing [...] A POSITIVE Antibody Screen NEGATIVE BB BAND SENIOR OUTSIDE SALES REPRESENTATIVE 0630 BB BAND Testing performed at [facility];[address] [place] [address];[place] [address] UNIT # [id number] Product Code LEUKODEPLETED PC Unit Division 00 Unit Status ISSUED Transfusion Status OK TO TRANSFUSE CROSSMATCH RESULT COMPATIBLE UNIT # [id number] Product Code LEUKODEPLETED PC Unit Division 00 Unit Status ISSUED Transfusion Status OK TO TRANSFUSE CROSSMATCH RESULT COMPATIBLE UNIT # [id number] Product Code LEUKODEPLETED PC Unit Division 00 Unit Status ALLOCATED Transfusion Status OK TO TRANSFUSE CROSSMATCH RESULT COMPATIBLE UNIT # [id number] Product Code LEUKODEPLETED PC Unit Division 00 Unit Status ALLOCATED Transfusion Status OK TO TRANSFUSE CROSSMATCH RESULT COMPATIBLE Red Blood Cells (PRBC) - Crossmatch and Hold Result Value Ref Range Product Code RED CELL GROUP Units ordered 2 BLOOD BANK COMMENT ORDER RECEIVED IN BLOOD BANK. BLOOD BANK COMMENT Testing performed at [facility];[address] [place] [address];[place] [address] POC ISTAT, CG8, Arterial Result Value Ref [...] BANK. BLOOD BANK COMMENT Testing performed at [facility];[address] [place] [address];[place] [address] POC ISTAT, CG8, Arterial Result Value Ref [...] PA-C - 10/07/2019 7:08 AM PDT [facility] Service: Vascular Surgery Progress Note Hospital Day: LOS: 4 days Post-Op Day: * No surgery date entered * SUBJECTIVE Patient Summary: The patient is a 59 y.o. 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 He unde rwent aortobifemoral bypass in [...] scan which revealed enlargement of known right BEV[employer] FACE [employer]ER [employer] POLISHER pseudoaneurysm. He was transferred to [facility] for evaluation and Vascular was consulted [...] A POSITIVE Antibody Screen NEGATIVE BB BAND SENIOR OUTSIDE SALES REPRESENTATIVE 0630 BB BAND Testing performed at [facility];[address] [place] [address] UNIT # [id number] Product Code LEUKODEPLETED PC Unit Division 00 Unit Status ALLOCATED Transfusion Status OK TO TRANSFUSE CROSSMATCH RESULT COMPATIBLE UNIT # [id number] Product Code LEUKODEPLETED PC Unit Division 00 Unit Status ALLOCATED Transfusion Status OK TO TRANSFUSE CROSSMATCH RESULT COMPATIBLE Red Blood Cells (PRBC) - Crossmatch and Hold Collection Time: 10/07/19 6:30 AM Result Value Ref Range Product Code RED CELL GROUP Units ordered 2 BLOOD BANK COMMENT ORDER RECEIVED IN BLOOD BANK. BLOOD BANK COMMENT Testing performed at [facility];[address] [place] [address] PROBLEM LIST Principal Problem: Pseudoaneurysm right aorto [...] Shook MD - 10/06/2019 10:34 AM PDT [facility] Service: Hospitalist Progress Note Hospital Day: LOS: 3 days SUBJECTIVE Patient Summary: Mr. Theodore is a 59 yr old man active smoker 1ppday with alcohol abuse, hx of PAD, s/p right aorto bifemoral bypass in 1999 complicated by pseudoaneurysm, s/p revision, was transferred from [place] ED for right foot swelling and increasing [...] PA-C - 10/06/2019 9:32 AM PDT [facility] Service: Vascular Surgery Progress Note Hospital Day: LOS: 3 days Post-Op Day: * No surgery date entered * SUBJECTIVE Patient Summary: The patient is a 59 y.o. 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 He unde rwent aortobifemoral bypass in [...] scan which revealed enlargement of known right BEV[employer] F[employer] POLISHER pseudoaneurysm. He was transferred to [facility] for evaluation and Vascular was consulted [...] Rashid MD - 10/05/2019 12:14 PM PDT [facility] Service: Hospitalist Progress Note Hospital Day: LOS: 2 days SUBJECTIVE Patient Summary: Mr. Theodore is a 59 yr old man active smoker 1ppday with alcohol abuse, hx of PAD, s/p right aorto bifemoral bypass in 1999 complicated by pseudoaneurysm, s/p revision, was transferred from [facility] ED for right foot swelling and increasing [...] PA-C - 10/05/2019 8:18 AM PDT [facility] Service: Vascular Surgery Progress Note Hospital Day: LOS: 2 days Post-Op Day: * No surgery date entered * SUBJECTIVE Patient Summary: The patient is a 59 y.o. 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 He unde rwent aortobifemoral bypass in [...] scan which revealed enlargement of known right B[employer] POLISHER pseudoaneurysm. He was transferred to [facility] for evaluation and Vascular was consulted [...] and open repair for his enlarging right BEV[employer] FACE [employer] POL[employer]ER pseudoaneurysm. He will need r etroperitoneal [...] Rashid MD - 10/04/2019 9:15 AM PDT [facility] Service: Hospitalist Progress Note Hospital Day: LOS: 1 day SUBJECTIVE Patient Summary: Mr. Theodore is a 59 yr old man active smoker 1ppday with alcohol abuse, hx of PAD, s/p right aorto bifemoral bypass in 1999 complicated by pseudoaneurysm, s/p revision, was transferred from [place] ED for right foot swelling and increasing [...] LYTY 0809 BB BAND Testing performed at [facility];[address] [place] [address];[place] [address] ECG 12 lead Result Value Ref Range [...] check if blood cultures were taken at [facility] Prn pain medication Pseudoaneurysm right femoral artery [...] might be different from t he original. [facility] Service: Hospitalist Admission History & [...] who p resents as a transfer from [facility] ED for pseudoaneurysm of the right groin and celluli tis of the RLE. Per patient right pseudoaneurysm of the right groin has been getting bigger for at least a year. Right foot swelling for 5 days. [facility] but this time [...] LYTY 0809 BB BAND Testing performed at [facility];[address] [place] [address];[place] [address] ECG 12 lead Result Value Ref Range INTERPRETATION TEXT Not Confirmed IMAGING No orders to display EKG at 2310: NSR, VR 72, Qtc 455. Data from [facility] -Ultrasound impression: 6.3 x 5.1 x [...] prophylaxis Code Status: Full Code Dictation software, [employer], used which may contain errors for similar [...] note might be different from the [facility]: Ruby Developer Initial Consult Note Jairo Theodore 59 [...] was transf erred 5 days ago from [facility] for right foot swelling and increase in [...] ENDARTERECTOMY FEMORAL; Surgeon: Magdiel Arteaga MD; Location: [facility] MAIN OR FEMORAL-FEMORAL BYPASS GRAFT N/A 10/07/2019 Procedure: BYPASS GRAFT FEMORAL-FEMORAL; Surgeon: Magdiel Arteaga MD; Location: [facility] MAIN OR OTHER SURGICAL HISTORY Right 10/07/2019 Procedure: REPAIR PSEUDOANEURYSM- FEMORAL; Surgeon: Magdiel Arteaga MD; Location: [facility] GABI N OR ALLERGIES Allergies Allergen Reactions [...] PDTAssociated Order(s): PROVIDER TO PROVIDER CONSUL T [facility] Service: Vascular Surgery Initial Consult Note Date of Admission: 10/03/2019 Date of Consultation: 10/04/2019 Reason for Consultation: Pseudoaneurysm of right BEVEL FACE STONER AND POLISHER Primary Care Physician: No Physician on file History Obtained From: Patient, chart review Code Status: Full Code CHIEF COMPLAINT: Right foot swelling and pain; Enlarging right femoral pseudoaneurysm HISTORY OF PRESENT ILLNESS The patient is a 59 y.o. male with significant past medical history of tobacco abuse, HTN, CAD, history of alcohol abuse who presented to [facility] with complaints of cellulitis o f right leg as well as enlarging pseudoaneurysm of right BEVEL FACE [employer] AND POLISHER. He underwent aortobifemoral by pass in [...] which reveal ed enlargement of known right BEV[employer] FACE [employer]ER AND POLISHER pseudoaneurysm. He was transferred to [facility] for evaluation and Vascular was consulted [...] - The patient was transferr ed to [facility] for evaluation of his enlarging pseudoaneurysm, which has been the same size for the last year he reports. [facility] but was lost to any follow up. 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 His C TA with runoff yesterday showed enlarging right femoral pseudoaneurysm. Left BEVEL FACE [employer]ONER AND POLISHER shows no in flow but reconstitutes. The patient will require revascularization and open repair for his e nlarging right BEVEL FACE [employer]ONER AND POLISHER pseudoaneurysm. He will need retroperitoneal exposure [...] Current Outpt/Agency/Support Groups: yes Community Agency Name: [facility] Disciplines: RN and PT - RN for wound care Equipment Durable Medical Equipment Provider: Home Equipment at Discharge: none Equipment Used at Home: cane, straight, single point Pharmacy Pharmacy/Medication needs: Pt is going to use Rx Pharmacy and will use his Medicare Part D benefits. GEOSCIENCE LABORATORY TECHNICIAN and Pt called [facility], got him reestablished with the [facility], has not been seen since 2018 . Pt is now assigned to [facility]. GEOSCIENCE LABORATORY TECHNICIAN p/c with Rudolph at [facility], states they will be calling Pt for follow up appt and will send referral for outpatient wound care. GEOSCIENCE LABORATORY TECHNICIAN p/c with Carol at [facility], states she has received [facility] orders in the p ast and will follow up with Dr. Bob's office. GEOSCIENCE LABORATORY TECHNICIAN provided referral and faxed Home health [...] Bed Mobility Supine to Sit, Level of Tunas: modified independent Sit to Supine, Level of Tunas: modified independent Safety Issues: decreased use of legs for bridging/pushing Transfers Sit-Stand, Level of Tunas: supervised Stand-Sit, Level of Tunas: supervised Ppr-Bsdxp-Exq, Assistive Device: none Gait Level of Tunas: supervised Assistive Device: none Distance (feet): 40 Goals Reflects last filed data and may be from multiple contributors. All Bed Mobility Goal Most Recent Value LTG Status new at 10/09/2019 1108 LTG [place] Level modified independent at 10/09/2019 1108 LTG Assistive Device none at 10/09/2019 1108 All Transfers Goal Most Recent Value LTG Status new at 10/09/2019 1108 LTG [place] Level modified independent at 10/09/2019 1108 LTG Assistive Device 2 wheeled walker (FWW) at 10/09/2019 1108 Gait Goal Most Recent Value LTG Status new at 10/09/2019 1108 LTG [place] Level modified independent at 10/09/2019 1108 LTG Assistive Device 2 wheeled walker (FWW) at 10/09/2019 1108 LTG Distance (feet) 100 at 10/09/2019 1108 Stair Goal Most Recent Value LTG Status new at 10/09/2019 1108 LTG [place] Level modified independent at 10/09/2019 1108 LTG [...] bed rails Supine to Sit, Level of Tunas: modified independent Safety Issues: decreased use of legs for bridging/pushing Impairments: ROM decreased, strength decreased Transfers Sit-Stand, Level of Tunas: stand by assist, verbal cues required Stand-Sit, Level of Tunas: stand by assist, verbal cues required Scb-[id number]-Pnd, Assistive Device: 2 wheeled walker (FWW), none Toilet, Level of Tunas: stand by assist, verbal cues required Toilet, Assistive Device: 2 wheeled walker (FWW), grab bars Gait Gait Comments: antalgic gait with flexed trunk posture and intermittent crouch position Level of Tunas: stand by assist, verbal cues required(verbal cues [...] LTG Status new at 10/09/2019 1108 LTG [place] Level modified independent at 10/09/2019 1108 LTG Assistive Device none at 10/09/2019 1108 All Transfers Goal Most Recent Value LTG Status new at 10/09/2019 1108 LTG [place] Level modified independent at 10/09/2019 1108 LTG Assistive Device 2 wheeled walker (FWW) at 10/09/2019 1108 Gait Goal Most Recent Value LTG Status new at 10/09/2019 1108 LTG [place] Level modified independent at 10/09/2019 1108 LTG Assistive Device 2 wheeled walker (FWW) at 10/09/2019 1108 LTG Distance (feet) 100 at 10/09/2019 1108 Stair Goal Most Recent Value LTG Status new at 10/09/2019 1108 LTG [place] Level modified independent at 10/09/2019 1108 LTG [...] Bed Mobility Supine to Sit, Level of Tunas: minimal assist (75% patient effort) Transfers Sit-Stand, Level of Tunas: minimal assist (75% patient effort) Gait Level of Tunas: minimal assist (75% patient effort) Assistive Device: [...] LTG Status new at 10/09/2019 1108 LTG [place] Level modified independent at 10/09/2019 1108 LTG Assistive Device none at 10/09/2019 1108 All Transfers Goal Most Recent Value LTG Status new at 10/09/2019 1108 LTG [place] Level modified independent at 10/09/2019 1108 LTG Assistive Device 2 wheeled walker (FWW) at 10/09/2019 1108 Gait Goal Most Recent Value LTG Status new at 10/09/2019 1108 LTG [place] Level modified independent at 10/09/2019 1108 LTG Assistive Device 2 wheeled walker (FWW) at 10/09/2019 1108 LTG Distance (feet) 100 at 10/09/2019 1108 Stair Goal Most Recent Value LTG Status new at 10/09/2019 1108 LTG [place] Level modified independent at 10/09/2019 1108 LTG [...] participation. Pt with an i ncontinent BM. DETAIL SUPERVISOR and PT assisting with mobility and pericare. [...] Transfers Additional Documentation: toilet Sit-Stand, Level of Tunas: minimal assist (75% patient effort) Stand-Sit, Level of Tunas: minimal assist (75% patient effort) Gml-Busok-Atc, Assistive Device: 2 wheeled walker (FWW) Toilet, Level of Tunas: minimal assist (75% patient effort) Toilet, Assistive Device: 2 wheeled walker (FWW) Safety Issues: loses balance backward, weight-shifting ability decreased, step length decre ased, sequencing ability decreased, balance decreased during turns Impairments: ROM decreased, strength decreased, impaired balance Gait Gait Comments: reduced step length BLE, excessive trunk flexion, reduced weight bearing RLE , avoidance COG over HAN Level of Tunas: minimal assist (75% patient effort) Assistive Device: 2 wheeled walker (FWW) Distance (feet): 15x2 Goals Reflects last filed data and may be from multiple contributors. All Bed Mobility Goal Most Recent Value LTG Status new at 10/09/2019 1108 LTG [place] Level modified independent at 10/09/2019 1108 LTG Assistive Device none at 10/09/2019 1108 All Transfers Goal Most Recent Value LTG Status new at 10/09/2019 1108 LTG [place] Level modified independent at 10/09/2019 1108 LTG Assistive Device 2 wheeled walker (FWW) at 10/09/2019 1108 Gait Goal Most Recent Value LTG Status new at 10/09/2019 1108 LTG [place] Level modified independent at 10/09/2019 1108 LTG Assistive Device 2 wheeled walker (FWW) at 10/09/2019 1108 LTG Distance (feet) 100 at 10/09/2019 1108 Stair Goal Most Recent Value LTG Status new at 10/09/2019 1108 LTG [place] Level modified independent at 10/09/2019 1108 LTG [...] Recommendations: 2 wheeled walker (FWW), shower chair, canceling and cutting control clerk, sock aide, long handled sponge, long [...] bed rails Supine to Sit, Level of Tunas: minimal assist (75% patient effort) Sit to Supine, Level of Tunas: moderate assist (50% patient effort) Safety Issues: decreased use of legs for bridging/pushing, decreased use of arms for pushin g/pulling Impairments: ROM decreased, strength decreased, postural control impaired, pain Transfers Additional Documentation: sit to/from stand Sit-Stand, Level of Tunas: minimal assist (75% patient effort) Stand-Sit, Level of Tunas: maximal assist (25% patient effort) Lan-Jacyz-Tpj, Assistive Device: 2 wheeled walker (FWW), gait belt Safety Issues: loses balance backward, weight-shifting ability decreased, step length decre ased, sequencing ability decreased, balance decreased during turns Impairments: ROM decreased, strength decreased, impaired balance ROM Comments: WFL Strength Comments: WFL. B ocean freight forwarder strength 4/5. B UE MMT 4/5 except for biceps 3+/5 Balance Sitting Balance: Static: good balance Sitting Balance: Dynamic: good balance Standing Balance: Static: poor balance Standing Balance: Dynamic: poor balance Goals Reflects last filed data and may be from multiple contributors. LB Dressing Goal Most Recent Value LTG Status new at 10/10/2019 1545 LTG [place] Level minimum assist (75% patient effort), set up required at 10/10/2019 1545 LTG Adaptive Equipment canceling and cutting control clerk, sock-aid at 10/10/2019 1545 Toilet Transfer Goal Most Recent Value LTG Status new at 10/10/2019 1545 LTG [place] Level minimum assist (75% patient effort) at [...] at bedside in ICU on turnover by seal delivery vehicle team technician. Patient stat es he feels better, [...] bed rails Supine to Sit, Level of Tunas: minimal assist (75% patient effort) Transfers Bed-Chair, Level of Tunas: minimal assist (75% patient effort) Ctj-Ozfcy-Qhk, Assistive Device: 2 wheeled walker (FWW), gait belt Sit-Stand, Level of Tunas: minimal assist (75% patient effort), stand by assist Stand-Sit, Level of Tunas: minimal assist (75% patient effort), stand by assist Gait Gait Comments: reduced step length BLE, excessive trunk flexion, reduced weight bearing RLE , avoidance COG over HAN Level of Tunas: minimal assist (75% patient effort), verbal cues [...] LTG Status new at 10/09/2019 1108 LTG [place] Level modified independent at 10/09/2019 1108 LTG Assistive Device none at 10/09/2019 1108 All Transfers Goal Most Recent Value LTG Status new at 10/09/2019 1108 LTG [place] Level modified independent at 10/09/2019 1108 LTG Assistive Device 2 wheeled walker (FWW) at 10/09/2019 1108 Gait Goal Most Recent Value LTG Status new at 10/09/2019 1108 LTG Tun[place] Level modified independent at 10/09/2019 1108 LTG Assistive Device 2 wheeled walker (FWW) at 10/09/2019 1108 LTG Distance (feet) 100 at 10/09/2019 1108 Stair Goal Most Recent Value LTG Status new at 10/09/2019 1108 LTG Tunas Level modified independent at 10/09/2019 1108 LTG [...] Family Contact Information: Name: Lele Conley (Roommate) Hijatudonsxhoh signed by PORTILLO Varner at 10/10/2019 10:13 [...] HOB elevated Supine to Sit, Level of Tunas: maximal assist (25% patient effort) Safety Issues: decreased use of legs for bridging/pushing, impaired trunk control for bed m obility Impairments: pain, strength decreased, ROM decreased Transfers Additional Documentation: sit to/from stand, bed to/from chair Bed-Chair, Level of Tunas: moderate assist (50% patient effort) Frd-Dspbr-Xew, Assistive Device: 2 wheeled walker (FWW) Sit-Stand, Level of Tunas: minimal assist (75% patient effort) Stand-Sit, Level of Tunas: minimal assist (75% patient effort) Oow-Yuzvg-Dgq, Assistive Device: 2 wheeled walker (FWW) Safety [...] LTG Status new at 10/09/2019 1108 LTG [place] Level modified independent at 10/09/2019 1108 LTG Assistive Device none at 10/09/2019 1108 All Transfers Goal Most Recent Value LTG Status new at 10/09/2019 1108 LTG [place] Level modified independent at 10/09/2019 1108 LTG Assistive Device 2 wheeled walker (FWW) at 10/09/2019 1108 Gait Goal Most Recent Value LTG Status new at 10/09/2019 1108 LTG [place] Level modified independent at 10/09/2019 1108 LTG Assistive Device 2 wheeled walker (FWW) at 10/09/2019 1108 LTG Distance (feet) 100 at 10/09/2019 1108 Stair Goal Most Recent Value LTG Status new at 10/09/2019 1108 LTG Tun[place] Level modified independent at 10/09/2019 1108 LTG [...] 1.7 Estimated Energy Needs Energy Calorie Requirements: 4056-8213(28-32 kcal/kg per 54.3 kg admit wt ) [...] started on clear liquid diet. lan of [facility] - Viv Santos MSW - 10/09/2019 9:44 AM PDTAttended morning rounds. Pt transferred to ICU post -op for repair of thrombosed fem-fem artery bypass. Progressing. Await PT to eval and alissa baez recommendations. Has no PCP per CM note and FS. [place] is [place]-. lan of [facility] Urszula Chaudhary RN - 10/09/2019 8:02 AM [...] 10/08/2019 2:31 PM PDT BRIEF OPERATIVE NOTE [facility] Pt. Name/Age/: Jairo Theodore 59 y.o. 1960 Med. Record Number: [id number] Date of admission: 10/03/2019 Date of Operation/Procedure: [...] disease (HCC) [I73.9] Surgeon: Magdiel Arteaga MD Studio Set Up Worker: Maicol Abel PA-C Anesthesia Provider(s): Anesthesiologist: Orlando Ambriz DO CHAIRPERSON ANESTHESIOLOGY: Som Garcia CRNA Anesthesia Type: Anesthesia type not filed in the log. Procedure(s): THROMBECTOMY / EMBOLECTOMY of fem fem bypass BILATERAL BYPASS GRAFT FEMORAL-POPLITEAL WITH 6 MM PTFE ANGIOGRAM - EXTREMITY BILATERAL (08777) Operative Findings: Thrombosed femoral to femoral artery [...] Implant Name Type Inv. Item Serial No. Long Goods Drier Lot No. LRB No. Used Action GRAFT VAS PROPATEN 6-80MM - [id number] Graft GRAFT VAS PROPATEN 6-80MM [id number] WL G SABINA - NEPTALIGO NA N/A 1 Implanted GRAFT VAS PROPATEN 6-80MM - [id number] Graft GRAFT VAS PROPATEN 6-80MM [id number] WL G ORE - WLGO NA N/A 1 Implanted Counts: Instrument, sponge, and needle counts were correct prior to closure and at the con clusion of the case. Complications: None Disposition: The patient was taken to PACU Immediate Post-Operative Condition: Stable Electronically signed by: Magdiel Arteaga MD, 10/08/2019, 2:31 PM PDT p Note - Magdiel Arteaga MD - 10/08/2019 10 :06 AM PDT [facility] OPERATIVE REPORT PATIENT NAME: Jairo Theodore [...] the femorofemoral bypass. Using 2 CV 6 [place]wan[place]-Jamie sutures the 6 mm bypass was anastomos [...] astomosis was created with 2 CV 6 [place]nee-Jamie sutures. Prior to completing the anastomosis the [...] an antibiotic solution. Hemostasis was achieved. 7 Vietnamese drains were placed in both groins and [...] Magdiel Arteaga MD Vascular Surgery Dictation software, Yarraa, used which may contain error for similar sounding words even af ter review. Personal communication requested for any clarification. Electronically signed by: Magdiel Arteaga MD, 10/09/2019 10:06 AM PDT [facility] lan of Care - Aggie [...] Arteaga MD - 10/07/2019 7:00 PM PDT [facility] OPERATIVE REPORT PATIENT NAME: Jairo Theodore [...] vanced a wire and placed a 7 Vietnamese sheath. We again attempted to select out [...] femoral endarterectomy was performed w ith a [place] elevator. There was good backbleeding from the [...] common femoral endarterectomy was performed using the [place] elevator. After performing the endarterect carlyle there [...] copiously irrigated. There was good hemostasis. 7 Vietnamese flat AUGUSTUS drains were placed in both [...] Magdiel Arteaga MD Vascular Surgery Dictation software, Yarraa, used which may contain error for similar sounding words even af ter review. Personal communication requested for any clarification. Electronically signed by: Magdiel Arteaga MD, 10/09/2019 9:28 AM [facility] rief Op Note - Magdiel Arteaga MD - 10/07/2019 4:30 PM PDTFormatting of this note might be different from the or iginal. BRIEF OPERATIVE NOTE [facility] Pt. Name/Age/: Jairo Theodore 59 y.o. 1960 Med. Record Number: [id number] Date of admission: 10/03/2019 Date of Operation/Procedure: 10/07/2019 Preoperative Diagnosis: 1. Large right groin pseudoaneurysm 2. Peripheral arterial disease Postoperative Diagnosis: * Pseudoaneurysm (HCC) [I72.9] Surgeon: Magdiel Arteaga MD Studio Set Up Worker: Maicol Abel PA-C Anesthesia Provider(s): Anesthesiologist: Rudolph Lowery MD CHAIRPERSON ANESTHESIOLOGY: Neville Rush CRNA Anesthesia Type: General Procedure(s): [...] Implant Name Type Inv. Item Serial No. Long Goods Drier Lot No. LRB No. Used Action GRAFT GORE PROPATEN [id number] - [id number] Graft GRAFT GORE PROPATEN [id number] WL GORE - WLGO NA Right 1 Implanted GRAFT HEMGRD KNIT [id number] - [id number] Graft GRAFT HEMGRD KNIT [id number] [employer] SALES - [id number] [id number] Right 1 Implanted [...] VSS with one SBP in 170s recheck [id number]. Report given to preop nurse and [id number] [...] Notes: Pt resides with his friend in [place]. 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 Pt scheduled for pseudoaneurysm repair on [...] BUN 7* CREA 0.60* Estimated Energy Needs 7772-3871 kcal/day (28-32 kcal/kg per 54.3 kg admit [...] [place] | | | | | | [id number] | | | | | | | | +--------+ + + + + | 11/07/ | Office | Vascular Surgery | Ricci De León DNP | | | 2019 | Visit | | [address] | | | | | | [place] | | | | | | [address] | | | | | | | [...] Expected: | | | | e | ([facility]) right aorto | 10/23/2019, Expires: | | | | | femoral bypass | 10/15/2020 | + +---------+--------+ + + | CBC w/ Auto | Lab | Routin | Pseudoaneurysm | Expected: | | Differential | | e | ([facility]) right aorto | 10/23/2019, Expires: | | | | | femoral bypass | 10/15/2020 | + +---------+--------+ + + | Phosphorus | Lab | Routin | Pseudoaneurysm | 1 Occurrences | | | | e | ([facility]) right aorto | starting 10/16/2019 | | | | | femoral bypass | until 10/15/2020 | + +---------+--------+ + + | Magnesium | Lab | Routin | Pseudoaneurysm | Expected: | | | | e | ([facility]) right aorto | 10/23/2019, Expires: | | | | | femoral bypass | 10/15/2020 | + +---------+--------+ + + | Calcium | Lab | Routin | Pseudoaneurysm | Expected: | | | | e | ([facility]) right aorto | 10/23/2019, Expires: | [...] | Health | Referral | e | ([facility]) right aorto | | | | | | femoral bypass | | | | | | Cellulitis of right | | | | | | foot 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 ([facility]) | | | | | | [...] EXTREMITY BILATERAL | | 9:22 AM | ([facility]) Peripheral | | | (38252) | | PDT | arterial disease | | | | | | (HCC) | | + +--------+ + + + | BYPASS GRAFT | | 10/08/2019 | Pseudoaneurysm | | | FEMORAL-POPLITEAL | | 9:22 AM | ([facility]) Peripheral | | | | | PDT | arterial disease | | | | | | ([facility]) | | + +--------+ + + + | THROMBECTOMY / | | 10/08/2019 | Pseudoaneurysm | | | EMBOLECTOMY | | 9:22 AM | ([facility]) Peripheral | | | | | [...] LABORATORY | | | | performed at [facility], [address] | | | [address], | | | | | | [place] [address] | | | | + + + + + + + + | Specimen | + + | Blood | + + + + + + + | Performing | Address | City/State/Zipcode | Phone Number | | Organization | | | | + + + + + | [facility] | [address] | [place] [address] | [phone] | + + + + + Magnesium (10/16/2019 5:11 AM PDT) + + + + + + | Component | Value | Ref Range | Performed | Pathologist | | | | | At | Signature | + + + + + + | Magnesium | 1.7Comment: Testing | 1.7 - 2.4 mg/dL | [facility] | | | | performed at [facility];[address] | | LABORATORY | | | | [address];[place] | | | | | | [address] | | | | + + + + + + + + | Specimen | + + | Blood | + + + + + + + | Performing | Address | City/State/Zipcode | Phone Number | | Organization | | | | + + + + + | [facility] | [address] | [place] [address] | [phone] | + + + + + Potassium (10/16/2019 5:11 AM PDT) + + + + + + | Component | Value | Ref Range | Performed | Pathologist | | | | | At | Signature | + + + + + + | K | 3.0 (L)Comment: Testing | 3.5 - 4.9 | [facility] | | | | performed at [facility];[address] | mmol/L | LABORATORY | | | | [address];[place], [place] | | | | | | [address] | | | | + + + + + + + + | Specimen | + + | Blood | + + + + + + + | Performing | Address | City/State/Zipcode | Phone Number | | Organization | | | | + + + + + | [facility] | [address] | [place] [address] | [phone] | + + + + + CBC [...] LABORATORY | | | | performed at [facility], [address] | | | [address] | [address], | | | | | | [place] [address] | | | | + + + + + + + + | Specimen | + + | Blood | + + + + + + + | Performing | Address | City/State/Zipcode | Phone Number | | Organization | | | | + + + + + | [facility] | [address] | [place] [address] | [phone] | + + + + + Magnesium (10/15/2019 5:13 AM PDT) + + + + + + | Component | Value | Ref Range | Performed | Pathologist | | | | | At | Signature | + + + + + + | Magnesium | 1.9Comment: Testing | 1.7 - 2.4 mg/dL | [facility] | | | | performed at [facility];[address] | | LABORATORY | | | | [address];[place] | | | | | | [address] | | | | + + + + + + + + | Specimen | + + | Blood | + + + + + + + | Performing | Address | City/State/Zipcode | Phone Number | | Organization | | | | + + + + + | [facility] | [address] | [place] [address] | [phone] | + + + + + Basic [...] | | | | | performed at [facility], [address] | | | | | [address], | | | | | | [place] [address] | | | | + + + + + + + + | Specimen | + + | Blood | + + + + + + + | Performing | Address | City/State/Zipcode | Phone Number | | Organization | | | | + + + + + | [facility] | [address] | [place] [address] | [phone] | + + + + + Potassium (10/14/2019 3:28 PM PDT) + + + + + + | Component | Value | Ref Range | Performed | Pathologist | | | | | At | Signature | + + + + + + | K | 3.3 (L)Comment: Testing | 3.5 - 4.9 | [facility] | | | | performed at [facility];[address] | mmol/L | LABORATORY | | | | [address];[place], [place] | | | | | | [address] | | | | + + + + + + + + | Specimen | + + | Blood | + + + + + + + | Performing | Address | City/State/Zipcode | Phone Number | | Organization | | | | + + + + + | [facility] | [address] | [place] [address] | [phone] | + + + + + Magnesium (10/14/2019 3:28 PM PDT) + + + + + + | Component | Value | Ref Range | Performed | Pathologist | | | | | At | Signature | + + + + + + | Magnesium | 2.1Comment: Testing | 1.7 - 2.4 mg/dL | [place] | | | | performed at [facility];[address] | | LABORATORY | | | | [address];[place], [place] | | | | | | [address] | | | | + + + + + + + + | Specimen | + + | Blood | + + + + + + + | Performing | Address | City/State/Zipcode | Phone Number | | Organization | | | | + + + + + | [facility] | [address] | [place] [address] | [phone] | + + + + + Phosphorus (10/14/2019 3:28 PM PDT) + + + + + + | Component | Value | Ref Range | Performed | Pathologist | | | | | At | Signature | + + + + + + | Phosphorus | 1.3 (L)Comment: Testing | 2.3 - 4.8 mg/dL | [facility] | | | | performed at [facility];[address] | | LABORATORY | | | | [address];[place], [place] | | | | | | [address] | | | | + + + + + + + + | Specimen | + + | Blood | + + + + + + + | Performing | Address | City/State/Zipcode | Phone Number | | Organization | | | | + + + + + | [facility] | [address] | [place] [address] | [phone] | + + + + + CBC [...] LABORATORY | | | | performed at [facility], [address] | | | | | [address], | | | | | | [place] [address] | | | | + + + + + + + + | Specimen | + + | Blood | + + + + + + + | Performing | Address | City/State/Zipcode | Phone Number | | Organization | | | | + + + + + | [facility] | [address] | [place] [address] | [phone] | + + + + + Magnesium (10/14/2019 5:49 AM PDT) + + + + + + | Component | Value | Ref Range | Performed | Pathologist | | | | | At | Signature | + + + + + + | Magnesium | 1.6 (L)Comment: Testing | 1.7 - 2.4 mg/dL | [facility] | | | | performed at [facility];[address] | | LABORATORY | | | | [address];[place] | | | | | | [address] | | | | + + + + + + + + | Specimen | + + | Blood | + + + + + + + | Performing | Address | City/State/Zipcode | Phone Number | | Organization | | | | + + + + + | [facility] | [address] | [place] [address] | [phone] | + + + + + Basic [...] | | | | | performed at [facility], [address] | | | | | | [facility], | | | | | | [place] [address] | | | | + + + + + + + + | Specimen | + + | Blood | + + + + + + + | Performing | Address | City/State/Zipcode | Phone Number | | Organization | | | | + + + + + | [facility] | [address] | [place] [address] | [phone] | + + + + + Potassium (10/13/2019 11:07 AM PDT) + + + + + + | Component | Value | Ref Range | Performed | Pathologist | | | | | At | Signature | + + + + + + | K | 3.5Comment: Testing | 3.5 - 4.9 | [place] | | | | performed at [facility];[address] | mmol/L | LABORATORY | | | | [address];[place], [place] | | | | | | [address] | | | | + + + + + + + + | Specimen | + + | Blood | + + + + + + + | Performing | Address | City/State/Zipcode | Phone Number | | Organization | | | | + + + + + | [facility] | [address] [facility] | [place] [address] | [phone] | + + + + + Potassium (10/13/2019 4:37 AM PDT) + + + + + + | Component | Value | Ref Range | Performed | Pathologist | | | | | At | Signature | + + + + + + | K | 3.5Comment: Testing | 3.5 - 4.9 | [facility] | | | | performed at [facility];888 | mmol/L | LABORATORY | | | | [address];[place], [place] | | | | | | [address] | | | | + + + + + + + + | Specimen | + + | Blood | + + + + + + + | Performing | Address | City/State/Zipcode | Phone Number | | Organization | | | | + + + + + | [facility] | [address] | [place] [address] | [phone] | + + + + + Magnesium (10/13/2019 4:37 AM PDT) + + + + + + | Component | Value | Ref Range | Performed | Pathologist | | | | | At | Signature | + + + + + + | Magnesium | 1.7Comment: Testing | 1.7 - 2.4 mg/dL | [facility] | | | | performed at [facility];[address] | | LABORATORY | | | | [address];[place] | | | | | | [address] | | | | + + + + + + + + | Specimen | + + | Blood | + + + + + + + | Performing | Address | City/State/Zipcode | Phone Number | | Organization | | | | + + + + + | [facility] | [address] | [place] [address] | [phone] | + + + + + Basic [...] 7.3 (L) | 8.5 - 10.5 | [facility] | | | | | mg/dL | LABORATORY | | + + + + + + | Estimated | >60Comment: GFR <60: | >60 | [facility] | | | GFR | CHRONIC [...] | | | | | performed at [facility];[employer] | | | | | | [facility];[place], [place] | | | | | | [address] | | | | + + + + + + + + | Specimen | + + | Blood | + + + + + + + | Performing | Address | City/State/Zipcode | Phone Number | | Organization | | | | + + + + + | [facility] | [address] | [place] [address] | [phone] | + + + + + Hemoglobin [...] M | | | | performed at [facility];[address] | | LABORATORY | | | | [address];[place] | | | | | | [address] | | | | + + + + + + + + | Specimen | + + | Blood | + + + + + + + | Performing | Address | City/State/Zipcode | Phone Number | | Organization | | | | + + + + + | [facility] | [address] | [place] [address] | [phone] | + + + + + Potassium (10/12/2019 4:28 PM PDT) + + + + + + | Component | Value | Ref Range | Performed | Pathologist | | | | | At | Signature | + + + + + + | K | 3.3 (L)Comment: Testing | 3.5 - 4.9 | [facility] | | | | performed at [facility];888 | mmol/L | LABORATORY | | | | [address];[place], [place] | | | | | | [address] | | | | + + + + + + + + | Specimen | + + | Blood | + + + + + + + | Performing | Address | City/State/Zipcode | Phone Number | | Organization | | | | + + + + + | [facility] | [address] | [place] [address] | [phone] | + + + + + Clostridium [...] at | | | | | | [facility];[address] [place] [address] | | | | | | Bl;[place] [address] | | | | + + + + + + + + | Specimen | + + | Stool - Stool | | specimen (specimen) | + + + + + + + | Performing | Address | City/State/Zipcode | Phone Number | | Organization | | | | + + + + + | [facility] | [address] | [place] [address] | [phone] | + + + + + Potassium (10/12/2019 11:02 AM PDT) + + + + + + | Component | Value | Ref Range | Performed | Pathologist | | | | | At | Signature | + + + + + + | K | 3.3 (L)Comment: Testing | 3.5 - 4.9 | [facility] | | | | performed at [facility];888 | mmol/L | LABORATORY | | | | [address];[place] | | | | | | [address] | | | | + + + + + + + + | Specimen | + + | Blood | + + + + + + + | Performing | Address | City/State/Zipcode | Phone Number | | Organization | | | | + + + + + | [facility] | [address] | [place] [address] | [phone] | + + + + + Type [...] + + + | BB BAND | [id number] | | [facility] | | | | | | LABORATORY | | + + + + + + | UNIT # | [id number] | | [facility] | | | | [...] | | | RESULT | performed at [facility];[address] | | LABORATORY | | | | [address];[place], [place] | | | | | | [address] | | | | + + + + + + | UNIT # | [id number] | | [facility] | | | | [...] | + + + + + | [facility] | [address] | [place] [address] | [phone] | + + + + + Red [...] | [facility] | | | COMMENT | [facility];[address] | | LABORATORY | | | | Blvd;[place] [address] | | | | + + + + + + + + | Specimen | + + | | + + + + + + + | Performing | Address | City/State/Zipcode | Phone Number | | Organization | | | | + + + + + | [facility] | [address] | [place] [address] | [phone] | + + + + + Magnesium (10/12/2019 4:08 AM PDT) + + + + + + | Component | Value | Ref Range | Performed | Pathologist | | | | | At | Signature | + + + + + + | Magnesium | 1.9Comment: Testing | 1.7 - 2.4 mg/dL | [facility] | | | | performed at [facility];[address] | | LABORATORY | | | | [address];[place] | | | | | | [address] | | | | + + + + + + + + | Specimen | + + | Blood | + + + + + + + | Performing | Address | City/State/Zipcode | Phone Number | | Organization | | | | + + + + + | [facility] | [address] | [place] [address] | [phone] | + + + + + Comprehensive [...] | | | | | performed at [facility];[address] | | | | | | [address];[place] | | | | | | [address] | | | | + + + + + + + + | Specimen | + + | Blood | + + + + + + + | Performing | Address | City/State/Zipcode | Phone Number | | Organization | | | | + + + + + | [facility] | [address] | [place] [address] | [phone] | + + + + + CBC [...] | [facility] | | | | NURSING [id number] AJ | | LABORATORY | | | [...] LABORATORY | | | | performed at [facility];8 | | | | | | [address];[place] | | | | | | [address] | | | | + + + + + + + + | Specimen | + + | Blood | + + + + + + + | Performing | Address | City/State/Zipcode | Phone Number | | Organization | | | | + + + + + | [facility] | [address] | [place] [address] | [phone] | + + + + + Urinalysis [...] - 1.030 | [facility] | | | [place], | | | LABORATORY | | | [...] [place] | | | | | | [address] | | | | + + + [...] | + + + + + | [facility] | [address] | [place] [address] | [phone] | + + + + + Osmolality, Urine (10/11/2019 11:16 AM PDT) + + + + + + | Component | Value | Ref Range | Performed | Pathologist | | | | | At | Signature | + + + + + + | OSMO URINE | 239Comment: Testing | 50 - 1,200 | [facility] | | | | performed at [facility], [address] | mOsm/kg | LABORATORY | | | | [address], | | | | | | [place] [address] | | | | + + + [...] | + + + + + | [facility] | [address] | [place] [address] | [phone] | + + + + + Culture, [...] | | LABORATORY | | | | Blvd;[place] [address] | | | | + + + + + + | RESULT | NO GROWTH 6 DAYS | | [facility] | | | | | | LABORATORY | | + + + + + + | RESULT | Testing performed at | | [facility] | | | | [facility], [address] | | LABORATORY | | | | [place] | | | | | | [address]Vhtrxxu: Testing | | | | | | performed at [facility], [address] | | | | | | [address], [place], [place] | | | | | | [address] | | | | + + + + + + + + | Specimen | + + | Blood - Swab of line | | insertion site | | (specimen) | + + + + + + + | Performing | Address | City/State/Zipcode | Phone Number | | Organization | | | | + + + + + | [facility] | [address] | [place] [address] | [phone] | + + + + + XR [...] Procedure Note | + + | Espinoza, [id number] - 10/11/2019 10:42 AM PDT | | [...] | [facility] | | | Requests | [facility];[address] | | LABORATORY | | | | Blvd;[place] [address] | | | | + + + + + + | RESULT | NO GROWTH 6 DAYS | | [facility] | | | | | | LABORATORY | | + + + + + + | RESULT | Testing performed at | | [facility] | | | | [facility], [address] | | LABORATORY | | | | [place], [place] | | | | | | [address]Zejhdpt: Testing | | | | | | performed at [facility], [address] | | | | | | [address], [place], [place] | | | | | | [address] | | | | + + + + + + + + | Specimen | + + | Blood - Peripheral | | blood specimen | | (specimen) | + + + + + + + | Performing | Address | City/State/Zipcode | Phone Number | | Organization | | | | + + + + + | [facility] | [address] | [place] [address] | [phone] | + + + + + Sodium (10/11/2019 9:30 AM PDT) + + + + + + | Component | Value | Ref Range | Performed | Pathologist | | | | | At | Signature | + + + + + + | Na | 127 (L)Comment: Testing | 135 - 145 | [facility] | | | | performed at [facility];888 | mmol/L | LABORATORY | | | | [address];[place] | | | | | | [address] | | | | + + + + + + + + | Specimen | + + | Blood | + + + + + + + | Performing | Address | City/State/Zipcode | Phone Number | | Organization | | | | + + + + + | [facility] | [address] | [place] [address] | [phone] | + + + + + Osmolality, Serum (10/11/2019 9:30 AM PDT) + + + + + + | Component | Value | Ref Range | Performed | Pathologist | | | | | At | Signature | + + + + + + | Osmolality, | 262 (L)Comment: Testing | 280 - 301 | [facility] | | | Serum | performed at [facility], [address] | mOsm/kg | LABORATORY | | | | [address], | | | | | | [place] [address] | | | | + + + + + + + + | Specimen | + + | Blood | + + + + + + + | Performing | Address | City/State/Zipcode | Phone Number | | Organization | | | | + + + + + | [facility] | [address] | [place] [address] | [phone] | + + + + + Comprehensive [...] 34 | 10 - 65 U/L | [facility] | | | | | | LABORATORY | | + + + + + + | Estimated | >60Comment: GFR <60: | >60 | [facility] | | | GFR | CHRONIC [...] | | | | | performed at [facility];[address] | | | | | | [facility];[place], [place] | | | | | | [address] | | | | + + + + + + + + | Specimen | + + | Blood | + + + + + + + | Performing | Address | City/State/Zipcode | Phone Number | | Organization | | | | + + + + + | [facility] | [address] | [place] [address] | [phone] | + + + + + CBC [...] LABORATORY | | | | performed at [facility];[address] | | | | | | [address];[place] | | | | | | [address] | | | | + + + + + + + + | Specimen | + + | Blood | + + + + + + + | Performing | Address | City/State/Zipcode | Phone Number | | Organization | | | | + + + + + | [facility] | [address] | [place] [address] | [phone] | + + + + + Comprehensive [...] | | | | | performed at [facility];[address] | | | | | | [facility];[place], [place] | | | | | | [address] | | | | + + + + + + + + | Specimen | + + | Blood | + + + + + + + | Performing | Address | City/State/Zipcode | Phone Number | | Organization | | | | + + + + + | [facility] | [address] | [place] [address] | [phone] | + + + + + Magnesium (10/10/2019 4:16 AM PDT) + + + + + + | Component | Value | Ref Range | Performed | Pathologist | | | | | At | Signature | + + + + + + | Magnesium | 1.8Comment: Testing | 1.7 - 2.4 mg/dL | [facility] | | | | performed at [facility];[address] | | LABORATORY | | | | [address];[place] | | | | | | [address] | | | | + + + + + + + + | Specimen | + + | Blood | + + + + + + + | Performing | Address | City/State/Zipcode | Phone Number | | Organization | | | | + + + + + | [facility] | [address] | [place] [address] | [phone] | + + + + + CBC [...] | | | Absolute | performed at [facility];[address] | K/uL | LABORATORY | | | | [address];[place], [place] | | | | | | [address] | | | | + + + + + + + + | Specimen | + + | Blood | + + + + + + + | Performing | Address | City/State/Zipcode | Phone Number | | Organization | | | | + + + + + | [facility] | [address] | [place] [address] | [phone] | + + + + + Lactic Acid (10/09/2019 5:12 AM PDT) + + + + + + | Component | Value | Ref Range | Performed | Pathologist | | | | | At | Signature | + + + + + + | Lactate, | 1.8Comment: Testing | 0.4 - 2.0 | [facility] | | | Serum | performed at [facility];[address] | mmol/L | LABORATORY | | | | [address];[place], [place] | | | | | | [address] | | | | + + + + + + + + | Specimen | + + | Blood | + + + + + + + | Performing | Address | City/State/Zipcode | Phone Number | | Organization | | | | + + + + + | [facility] | [address] | [place] [address] | [phone] | + + + + + Comprehensive [...] | | | | | performed at [facility];[address] | | | | | | [address];[place], [place] | | | | | | [address] | | | | + + + + + + + + | Specimen | + + | Blood | + + + + + + + | Performing | Address | City/State/Zipcode | Phone Number | | Organization | | | | + + + + + | [facility] | [address] [facility] | [place] [address] | [phone] | + + + + + Procalcitonin [...] | | | | | | at [facility];[address] [place] [address] | | | | | | [facility];[place] [address] | | | | + + + + + + + + | Specimen | + + | Blood | + + + + + + + | Performing | Address | City/State/Zipcode | Phone Number | | Organization | | | | + + + + + | [facility] | [address] | [place] [address] | [phone] | + + + + + Phosphorus (10/09/2019 5:10 AM PDT) + + + + + + | Component | Value | Ref Range | Performed | Pathologist | | | | | At | Signature | + + + + + + | Phosphorus | 4.0Comment: Testing | 2.3 - 4.8 mg/dL | [facility] | | | | performed at [facility];[address] | | LABORATORY | | | | [address];[place] | | | | | | [address] | | | | + + + + + + + + | Specimen | + + | Blood | + + + + + + + | Performing | Address | City/State/Zipcode | Phone Number | | Organization | | | | + + + + + | [facility] | [address] | [place] [address] | [phone] | + + + + + Magnesium (10/09/2019 5:10 AM PDT) + + + + + + | Component | Value | Ref Range | Performed | Pathologist | | | | | At | Signature | + + + + + + | Magnesium | 1.7Comment: Testing | 1.7 - 2.4 mg/dL | [facility] | | | | performed at [facility];[address] | | LABORATORY | | | | [address];[place] | | | | | | [address] | | | | + + + + + + + + | Specimen | + + | Blood | + + + + + + + | Performing | Address | City/State/Zipcode | Phone Number | | Organization | | | | + + + + + | [facility] | [address] | [place] [address] | [phone] | + + + + + CBC [...] | | | | | performed at [facility];[address] | | | | | | [address];[place] | | | | | | [address] | | | | + + + + + + + + | Specimen | + + | Blood | + + + + + + + | Performing | Address | City/State/Zipcode | Phone Number | | Organization | | | | + + + + + | [facility] | [address] | [place] [address] | [phone] | + + + + + POC Glucose (10/09/2019 12:47 AM PDT) + + + + + + | Component | Value | Ref Range | Performed | Pathologist | | | | | At | Signature | + + + + + + | Glucose, | 128 (H)Comment: Testing | 65 - 99 mg/dL | [facility] | | | POC | performed at [facility];[address] | | LABORATORY | | | | [address];[place] | | | | | | [address] | | | | + + + + + + + + | Specimen | + + | | + + + + + + + | Performing | Address | City/State/Zipcode | Phone Number | | Organization | | | | + + + + + | [facility] | [address] | [place] [address] | [phone] | + + + + + Phosphorus (10/08/2019 5:23 PM PDT) + + + + + + | Component | Value | Ref Range | Performed | Pathologist | | | | | At | Signature | + + + + + + | Phosphorus | 3.4Comment: Testing | 2.3 - 4.8 mg/dL | [facility] | | | | performed at [facility];[address] | | LABORATORY | | | | [address];[place], [place] | | | | | | [address] | | | | + + + + + + + + | Specimen | + + | Blood | + + + + + + + | Performing | Address | City/State/Zipcode | Phone Number | | Organization | | | | + + + + + | [facility] | [address] | [place] [address] | [phone] | + + + + + Magnesium (10/08/2019 5:23 PM PDT) + + + + + + | Component | Value | Ref Range | Performed | Pathologist | | | | | At | Signature | + + + + + + | Magnesium | 1.8Comment: Testing | 1.7 - 2.4 mg/dL | [facility] | | | | performed at [facility];[address] | | LABORATORY | | | | [address] [address];[place], [place] | | | | | | [address] | | | | + + + + + + + + | Specimen | + + | Blood | + + + + + + + | Performing | Address | City/State/Zipcode | Phone Number | | Organization | | | | + + + + + | [facility] | [address] | [place] [address] | [phone] | + + + + + CBC [...] at | | | | | | [facility];[address] [place] [address] | | | | | | [facility];[place] [address] | | | | + + + + + + + + | Specimen | + + | Blood | + + + + + + + | Performing | Address | City/State/Zipcode | Phone Number | | Organization | | | | + + + + + | [facility] | [address] | [place] [address] | [phone] | + + + + + Basic [...] 6.3 (L) | 8.5 - 10.5 | [facility] | | | | | mg/dL | LABORATORY | | + + + + + + | Estimated | >60Comment: GFR <60: | >60 | [facility] | | | GFR | CHRONIC [...] | | | | | | MDRD IDPR traceable | | | | | | equation.Testing | | | | | | performed at [facility];[employer] | | | | | | [facility];[place], [place] | | | | | | [address] | | | | + + + + + + + + | Specimen | + + | Blood | + + + + + + + | Performing | Address | City/State/Zipcode | Phone Number | | Organization | | | | + + + + + | [facility] | [address] | [place] [address] | [phone] | + + + + + PTT (10/08/2019 5:23 PM PDT) + + + + + + | Component | Value | Ref Range | Performed | Pathologist | | | | | At | Signature | + + + + + + | PTT | 32Comment: Testing | 23 - 32 seconds | [facility] | | | | performed at [facility];[address] | | LABORATORY | | | | [address];[place], [place] | | | | | | [address] | | | | + + + + + + + + | Specimen | + + | Blood | + + + + + + + | Performing | Address | City/State/Zipcode | Phone Number | | Organization | | | | + + + + + | [facility] | [address] | [place] [address] | [phone] | + + + + + POC [...] | | | POC | performed at [facility];888 | g/dL | LABORATORY | | | | [address];[place], [place] | | | | | | [address] | | | | + + + + + + + + | Specimen | + + | | + + + + + + + | Performing | Address | City/State/Zipcode | Phone Number | | Organization | | | | + + + + + | [facility] | [address] | [place] [address] | [phone] | + + + + + POC [...] | | | POC | performed at [facility];888 | g/dL | LABORATORY | | | | [address];[place], [place] | | | | | | [address] | | | | + + + + + + + + | Specimen | + + | | + + + + + + + | Performing | Address | City/State/Zipcode | Phone Number | | Organization | | | | + + + + + | [facility] | [address] | [place] [address] | [phone] | + + + + + Basic [...] 7.2 (L) | 8.5 - 10.5 | [facility] | | | | | mg/dL | LABORATORY | | + + + + + + | Estimated | >60Comment: GFR <60: | >60 | [facility] | | | GFR | CHRONIC [...] | | | | | | MDRD IDPR traceable | | | | | | equation.Testing | | | | | | performed at [facility], [address] | | | | | | [facility], | | | | | | [place] [address] | | | | + + + + + + + + | Specimen | + + | Blood | + + + + + + + | Performing | Address | City/State/Zipcode | Phone Number | | Organization | | | | + + + + + | [facility] | [address] | [place] [address] | [phone] | + + + + + CBC [...] 0.08Comment: Testing | 0.00 - 0.10 | [facility] | | | Absolute | performed at [facility], [address] | K/uL | LABORATORY | | | | [address], | | | | | | [place] [address] | | | | + + + + + + + + | Specimen | + + | Blood | + + + + + + + | Performing | Address | City/State/Zipcode | Phone Number | | Organization | | | | + + + + + | [facility] | [address] | [place] [address] | [phone] | + + + + + Magnesium (10/08/2019 5:44 AM PDT) + + + + + + | Component | Value | Ref Range | Performed | Pathologist | | | | | At | Signature | + + + + + + | Magnesium | 1.6 (L)Comment: Testing | 1.7 - 2.4 mg/dL | [facility] | | | | performed at [facility];[address] | | LABORATORY | | | | [address] [facility];[place], [place] | | | | | | [address] | | | | + + + + + + + + | Specimen | + + | Blood | + + + + + + + | Performing | Address | City/State/Zipcode | Phone Number | | Organization | | | | + + + + + | [facility] | [address] | [place] [address] | [phone] | + + + + + PTT (10/07/2019 5:21 PM PDT) + + + + + + | Component | Value | Ref Range | Performed | Pathologist | | | | | At | Signature | + + + + + + | PTT | 28Comment: Testing | 23 - 32 seconds | [facility] | | | | performed at [facility];[address] | | LABORATORY | | [address];[place], [place] | | | | | | [address] | | | | + + + + + + + + | Specimen | + + | Blood - Artery, | | Radial, Right | + + + + + + + | Performing | Address | City/State/Zipcode | Phone Number | | Organization | | | | + + + + + | [facility] | [address] | [place] [address] | [phone] | + + + + + Protime [...] | | | | | performed at [facility] | | | | | | [address];[place], [place] | | | | | | [address] | | | | + + + + + + + + | Specimen | + + | Blood - Artery, | | Radial, Right | + + + + + + + | Performing | Address | City/State/Zipcode | Phone Number | | Organization | | | | + + + + + | [facility] | [address] | [place] [address] | [phone] | + + + + + Basic [...] | >60Comment: GFR <60: | >60 | [facility] | | | GFR | CHRONIC [...] | | | | | | [facility] traceable | | | | | | equation.Testing | | | | | | performed at [facility];[address] | | | | | | [facility];[place], [place] | | | | | | [address] | | | | + + + + + + + + | Specimen | + + | Blood - Artery, | | Radial, Right | + + + + + + + | Performing | Address | City/State/Zipcode | Phone Number | | Organization | | | | + + + + + | [facility] | [address] | [place] [address] | [phone] | + + + + + CBC [...] LABORATORY | | | | performed at [facility];[address] | | | | | | [address];[place] | | | | | | [address] | | | | + + + + + + + + | Specimen | + + | Blood - Right upper | | arm structure (body | | structure) | + + + + + + + | Performing | Address | City/State/Zipcode | Phone Number | | Organization | | | | + + + + + | [facility] | [address] | [place] [address] | [phone] | + + + + + Surgical [...] | including foreign body giant cell reaction. AMB:[facility]:[id number] MICROSCOPIC | | | EXAMINATION:Histologic sections [...] attached red-white | | | fibromembranous tissue. Director Of Workforce Development sections are submitted in | | | [...] | LABORATORY:The technical component was performed by [employer] | | | [employer], [address] [place] [address] (Photographic Aide: | | | Asia Rodriguez MD; CLIA# [id number]).Professional interpretation was | | | performed by [employer], [facility], [address] | | | [place] [address] (Photographic Aide: Solit[employer] | | | Jacky Recio; CLIA#: [id number]). Diagnostician: Asia Rodriguez | | | MDPathologistElectronically Signed 10/10/2019 | | | | | |PERFORMING LABORATORY: | | |The technical component was performed by [employer], [address] [place] [address] (Photographic Aide: Asia Rodriguez MD; CLIA# [id number]). | | |Professional interpretation was performed by [facility], [address] [place] [address] (Photographic Aide: Solitario Recio M.D.; CLIA#: [id number]). | | | | | |Diagnostician: Asia [...] | | | POC | performed at [facility];888 | g/dL | LABORATORY | | | | [address];[place] | | | | | | [address] | | | | + + + + + + + + | Specimen | + + | | + + + + + + + | Performing | Address | City/State/Zipcode | Phone Number | | Organization | | | | + + + + + | [facility] | [address] | [place] [address] | [phone] | + + + + + Red [...] | KT | | | COMMENT | [facility];[address] [facility] | | LABORATORY | | | | Blvd;[place] [address] | | | | + + + + + + + + | Specimen | + + | | + + + + + + + | Performing | Address | City/State/Zipcode | Phone Number | | Organization | | | | + + + + + | [facility] | [address] | [place] [address] | [phone] | + + + + + POC ISTAT, CG8, Arterial (10/07/2019 12:37 PM PDT) + + + + + + | Component | Value | Ref Range | Performed | Pathologist | | | | | At | Signature | + + + + + + | pH, | 7.326 (L) | 7.350 - 7.450 | [facility] | | | Arterial, | | [...] | | | POC | performed at [facility];888 | g/dL | LABORATORY | | | | [address];[place] | | | | | | [address] | | | | + + + + + + + + | Specimen | + + | | + + + + + + + | Performing | Address | City/State/Zipcode | Phone Number | | Organization | | | | + + + + + | [facility] | [address] | [place] [address] | [phone] | + + + + + POC [...] (L)Comment: Testing | 13.7 - 16.7 | [facility] | | | POC | performed at [facility];888 | g/dL | LABORATORY | | | | [address];[place] | | | | | | [address] | | | | + + + + + + + + | Specimen | + + | | + + + + + + + | Performing | Address | City/State/Zipcode | Phone Number | | Organization | | | | + + + + + | [facility] | [address] | [place] [address] | [phone] | + + + + + POC [...] | | | POC | performed at [facility];888 | g/dL | LABORATORY | | | | [address];[place], [place] | | | | | | [address] | | | | + + + + + + + + | Specimen | + + | | + + + + + + + | Performing | Address | City/State/Zipcode | Phone Number | | Organization | | | | + + + + + | [facility] | [address] | [place] [address] | [phone] | + + + + + Red [...] | ORDER RECEIVED IN BLOOD | | [facility] | | | COMMENT | BANK. | | LABORATORY | | + + + + + + | BLOOD BANK | Testing performed at | | [facility] | | | COMMENT | [facility];[address] [facility] | | LABORATORY | | | | [address];[place] [address] | | | | + + + + + + + + | Specimen | + + | | + + + + + + + | Performing | Address | City/State/Zipcode | Phone Number | | Organization | | | | + + + + + | [facility] | [address] | [place] [address] | [phone] | + + + + + Magnesium (10/07/2019 3:55 AM PDT) + + + + + + | Component | Value | Ref Range | Performed | Pathologist | | | | | At | Signature | + + + + + + | Magnesium | 1.6 (L)Comment: Testing | 1.7 - 2.4 mg/dL | [facility] | | | | performed at [facility];[address] | | LABORATORY | | | | [address];[place], [place] | | | | | | [address] | | | | + + + + + + + + | Specimen | + + | Blood | + + + + + + + | Performing | Address | City/State/Zipcode | Phone Number | | Organization | | | | + + + + + | [facility] | [address] | [place] [address] | [phone] | + + + + + Type [...] + + + | BB BAND | SENIOR OUTSIDE SALES REPRESENTATIVE 0630 | | [facility] | | | | | | LABORATORY | | + + + + + + | UNIT # | [id number] | | [facility] | | | | [...] + + + | UNIT # | [id number] | | [facility] | | | | [...] + + + | UNIT # | [id number] | | [facility] | | | | [...] + + + | UNIT # | [id number] | | [facility] | | | | [...] | | | RESULT | performed at [facility];[employer] | | LABORATORY | | | | [address];[place], [place] | | | | | | [address] | | | | + + + + + + + + | Specimen | + + | Blood | + + + + + + + | Performing | Address | City/State/Zipcode | Phone Number | | Organization | | | | + + + + + | [facility] | [address] | [place] [address] | [phone] | + + + + + Basic [...] | | | | | performed at [facility];[address] | | | | | | [facility];[place], [place] | | | | | | [address] | | | | + + + + + + + + | Specimen | + + | Blood | + + + + + + + | Performing | Address | City/State/Zipcode | Phone Number | | Organization | | | | + + + + + | [facility] | [address] [facility] | [place] [address] | [phone] | + + + + + CBC [...] | | | Absolute | performed at [facility];888 | K/uL | LABORATORY | | | | [address];[place] | | | | | | [address] | | | | + + + + + + + + | Specimen | + + | Blood | + + + + + + + | Performing | Address | City/State/Zipcode | Phone Number | | Organization | | | | + + + + + | [facility] | [address] | [place] [address] | [phone] | + + + + + Magnesium (10/06/2019 6:27 AM PDT) + + + + + + | Component | Value | Ref Range | Performed | Pathologist | | | | | At | Signature | + + + + + + | Magnesium | 1.6 (L)Comment: Testing | 1.7 - 2.4 mg/dL | [facility] | | | | performed at [facility];[address] | | LABORATORY | | | | [address];[place] | | | | | | [address] | | | | + + + + + + + + | Specimen | + + | Blood | + + + + + + + | Performing | Address | City/State/Zipcode | Phone Number | | Organization | | | | + + + + + | [facility] | [address] | [place] [address] | [phone] | + + + + + Basic [...] | | | | | performed at [facility], [address] | | | | | | [address], | | | | | | [place] [address] | | | | + + + + + + + + | Specimen | + + | Blood | + + + + + + + | Performing | Address | City/State/Zipcode | Phone Number | | Organization | | | | + + + + + | [facility] | [address] [facility] | [place] [address] | [phone] | + + + + + CBC [...] | | | Absolute | performed at [facility], [address] | K/uL | LABORATORY | | | | [address], | | | | | | [place] [address] | | | | + + + + + + + + | Specimen | + + | Blood | + + + + + + + | Performing | Address | City/State/Zipcode | Phone Number | | Organization | | | | + + + + + | [facility] | [address] | [place] [address] | [phone] | + + + + + Magnesium (10/05/2019 5:02 AM PDT) + + + + + + | Component | Value | Ref Range | Performed | Pathologist | | | | | At | Signature | + + + + + + | Magnesium | 1.7Comment: Testing | 1.7 - 2.4 mg/dL | [facility] | | | | performed at [facility];888 | | LABORATORY | | | | [address];[place] | | | | | | [address] | | | | + + + + + + + + | Specimen | + + | Blood | + + + + + + + | Performing | Address | City/State/Zipcode | Phone Number | | Organization | | | | + + + + + | [facility] | [address] | [place] [address] | [phone] | + + + + + Basic [...] | | | | | performed at [facility], [address] | | | | | | [address], | | | | | | [place] [address] | | | | + + + + + + + + | Specimen | + + | Blood | + + + + + + + | Performing | Address | City/State/Zipcode | Phone Number | | Organization | | | | + + + + + | [facility] | [address] | [place] [address] | [phone] | + + + + + CBC [...] | | | Absolute | performed at [facility], [address] | K/uL | LABORATORY | | | | [address], | | | | | | [place] [address] | | | | + + + + + + + + | Specimen | + + | Blood | + + + + + + + | Performing | Address | City/State/Zipcode | Phone Number | | Organization | | | | + + + + + | [facility] | [address] | [place] [address] | [phone] | + + + + + ECHO [...] Procedure Note | + + | [facility], [id number] - 10/04/2019 12:10 PM PDT | | [...] + + | Performing | Address | City/State[facility] | Phone Number | | Organization | [...] [facility] | | | | performed at [facility];[address] | | LABORATORY | | | | [address];[place] | | | | | | [address] | | | | + + + + + + + + | Specimen | + + | Tissue - Both | | anterior nares (body | | structure) | + + + + + + + | Performing | Address | City/State/Zipcode | Phone Number | | Organization | | | | + + + + + | [facility] | [address] | [place] [address] | [phone] | + + + + + Zeinabime [...] | | | | | performed at [facility];[employer] | | | | | | [address];[place], [place] | | | | | | [address] | | | | + + + + + + + + | Specimen | + + | Blood | + + + + + + + | Performing | Address | City/State/Zipcode | Phone Number | | Organization | | | | + + + + + | [facility] | [address] | [place] [address] | [phone] | + + + + + Uric Acid (10/04/2019 4:26 AM PDT) + + + + + + | Component | Value | Ref Range | Performed | Pathologist | | | | | At | Signature | + + + + + + | Uric Acid | 3.2Comment: Testing | 3.2 - 8.6 mg/dL | [facility] | | | | performed at [facility], [address] | | LABORATORY | | | | [address], | | | | | | [place] [address] | | | | + + + + + + + + | Specimen | + + | Blood | + + + + + + + | Performing | Address | City/State/Zipcode | Phone Number | | Organization | | | | + + + + + | [facility] | [address] | [place] [address] | [phone] | + + + + + Lipid [...] | | | Calculated | performed at [facility], [address] | | LABORATORY | | | | [address], | | | | | | [place] [address] | | | | + + + + + + + + | Specimen | + + | Blood | + + + + + + + | Performing | Address | City/State/Zipcode | Phone Number | | Organization | | | | + + + + + | [facility] | [address] | [place] [address] | [phone] | + + + + + Comprehensive [...] | | | | | performed at [facility], [address] | | | | | | [facility], | | | | | | [place] [address] | | | | + + + + + + + + | Specimen | + + | Blood | + + + + + + + | Performing | Address | City/State/Zipcode | Phone Number | | Organization | | | | + + + + + | [facility] | [address] | [place] [address] | [phone] | + + + + + CBC [...] 0.08Comment: Testing | 0.00 - 0.10 | [facility] | | | Absolute | performed at [facility], [address] | K/uL | LABORATORY | | | | [address], | | | | | | [place] [address] | | | | + + + + + + + + | Specimen | + + | Blood | + + + + + + + | Performing | Address | City/State/Zipcode | Phone Number | | Organization | | | | + + + + + | [facility] | [address] | [place] [address] | [phone] | + + + + + Coronavirus [...] | | | | | performed at [facility];[address] | | | | | | [address];[place] | | | | | | [address] | | | | + + + + + + + + | Specimen | + + | Tissue - Entire | | nasopharynx (body | | structure) | + + + + + + + | Performing | Address | City/State/Zipcode | Phone Number | | Organization | | | | + + + + + | [facility] | [address] | [place] [address] | [phone] | + + + + + ECG [...] | | | | XIANG HART MD ([id number]) | | | | | | on [...] | | LABORATORY | | | | Blvd;[place] [address] | | | | + + + + + + + + | Specimen | + + | Blood | + + + + + + + | Performing | Address | City/State/Zipcode | Phone Number | | Organization | | | | + + + + + | [facility] | [address] | [place] [address] | [phone] | + + + + + Comprehensive [...] | >60Comment: GFR <60: | >60 | [facility] | | | GFR | CHRONIC [...] | | | | | | [facility] traceable | | | | | | equation.Testing | | | | | | performed at [facility];[address] | | | | | | [address] [facility];[place], [place] | | | | | | [address] | | | | + + + + + + + + | Specimen | + + | Blood | + + + + + + + | Performing | Address | City/State/Zipcode | Phone Number | | Organization | | | | + + + + + | [facility] | [address] | [place] [address] | [phone] | + + + + + CBC [...] | | | Absolute | performed at [facility];[address] | K/uL | LABORATORY | | | | [address];[place] | | | | | | [address] | | | | + + + + + + + + | Specimen | + + | Blood | + + + + + + + | Performing | Address | City/State/Zipcode | Phone Number | | Organization | | | | + + + + + | [facility] | [address] | [place] [address] | [phone] | + + + + + documented [...] | | | | | Starting [facility] 10/12/19 at 1744 | | | [...]
--- OUTSIDE RECORDS SUMMARY | ~2019-11-02 | XMS | Encounter Summary ---
Demographics + + + | Address | [address] | | | [place] [address] | + + + | Home Phone [...] + + + | Author | [facility] | | | and [place] | + + + | Organization | [facility] | | [...] Team Providers + +------+ + | Care Shear Assembler Name | Role | Phone | + +------+ + PCP | Unavailable | + +------+ + Encounter Details +--------+ + + + + | Date | Type | Department | Care Team | Description | +--------+ + + + + | 11/16/ | Hospital | [facility] | Conversion | Pain | | 2017 | Encounter | CONVERSION DEP [address] | Transaction, | | | | | [address] | Provider Unknown | | | | | [place] | | | | | | [address] | (Fax) | | | | | [phone] | | | +--------+ + + + [...] [place] | | | | | | [address] | | | | | | | | +--------+ + + + + | 11/07/ | Office | Vascular Surgery | Ricci De León DNP | | | 2019 | Visit | | [address] | | | | | | [place] | | | | | | [address] | | | | | | | [...]
--- OUTSIDE RECORDS SUMMARY | ~2019-11-02 | XMS | Encounter Summary ---
Demographics + + + | Address | [address] | | | [place] [address] | + + + | Home Phone [...] + + + | Author | [facility] | + + + | Organization | [facility] [employer] [facility] | + + + | Address | Unknown | + + + | Phone | Unavailable | + + + Support + + +---------+ + | Name | Relationship | Address | Phone | + + +---------+ + | Lele Conley | ECON | Unknown | | + + +---------+ + Care Team Providers + +------+ + | Care Environmental Technology Professor Name | Role | Phone | + [...] + + | 11/17/ | Emergency | [facility] | Cristhian Mayer, | | | 2016 | | Department [address] | [address] [facility] | | | | | [address] | [facility] | | | | | [facility] | [place], [place] | | | | | [place], [place] | [address] | | | | | [address] | [phone] | | | | | [phone] | | | +--------+ + + + [...] per ref pt [facility] be [facility] MCElectronically signed by Joanna Vuong at 10:58 PM [facility] Jojo Ayers - 11/16/2016 8:48 PM PDTHOLD-referring exp jorge placement elsewhere due to delays. Will call back to update if bed found elsewhere. E lectronically signed by Jojo Adams at 11/16/2016 8:48 PM [facility] AdamsJojo - 11/16/2016 8:20 [address] PDTSt [...] [facility] transfer l ist at this time. [facility] Carlie Mejia - 11/16/2016 5:49 PM PDTConnected [...] from transferring tonight. Paged group 18. [facility] [place] - Carlie Mcdowell - 11/16/2016 5:[address] Easton (Colorectal). [place] weeks signed by Carlie Lincoln at 11/16/2016 5:45 PM PDTdocumented in this encounter Plan of Treatment Not on filedocumented as of this encounter Visit Diagnoses Not on filedocumented in this encounter"
--- OUTSIDE RECORDS SUMMARY | ~2019-11-02 | XMS | Encounter Summary ---
Demographics + + + | Address | [address] | | | [place] [address] | + + + | Home Phone | | + + + | Preferred Language | Unknown | + + + | Marital Status | Single | + + + | Faith Affiliation | BAP | + + + | Race | White | + + + | Ethnic Group | Not or | + + + Author + + + | Author | [facility] | + + + | Organization | [facility] | + + + | Address | Unknown | + + + | Phone | Unavailable | + + + Support + + +---------+ + | Name | Relationship | Address | Phone | + + +---------+ + | Lele Conley | ECON | Unknown | | + + +---------+ + Care Team Providers + +------+ + | Care Reconstructive Surgeon Name | Role | Phone | + +------+ + PCP | Unavailable | + +------+ + Encounter Details +--------+ + + + + | Date | Type | Department | Care Team | Description | +--------+ + + + + | 04/30/ | Respiratory | Respiratory | Nikita Holliday | | | 2007 | Therapy | Therapy [address] [facility] | [phone] | | | | | [address] | | | | | | Mailcode: [address] | | | | | | [place], [place] | | | | | | [address] | | | | | | [phone] | | | +--------+ + + + [...] Caputo, | | | | | | INSIDE CHANNEL ACCOUNT MANAGER | | | | + + [...] [facility] | [address] | [place], [place] | | | THERAPY | [facility] | [address] | | + + + + + | [facility] | [address] [facility] [address] | [place], [place] | | | THERAPY | [facility] | [address] | | + + + + + [...] | THERAPY | | | | Moy, INSIDE CHANNEL ACCOUNT MANAGER | | | | + + [...] [facility] | [address] | [place], [place] | | | THERAPY | [address] [place] | [address] | | + + + + + | [facility] | [address] | [place], [place] | | | THERAPY | [address] | [address] | | + + + + + documented in this encounter Visit Diagnoses Not on filedocumented in this encounter"
--- OUTSIDE RECORDS SUMMARY | ~2019-11-02 | XMS | Encounter Summary ---
Demographics + + + | Address | [address] | | | [place] [address] | + + + | Home Phone [...] Providers + +------+ + | Care Guest Relations Officer Name | Role | Phone | + [...] + + | 10/06/ | Anesthesia | [facility] | Rudolph Lowery | | | 2020 | Event | [facility] | MD [address] | | | | | [address]PER[address] | [address] | | | | | [address] | [place] [address] | | | | | [place], [place] | [phone] | | | | | [address] | | | | | | [phone] | | | +--------+ + + + [...] +----+---+ + + | | 0 | [address] | | | | 8 | 43-degrees [...] Amanda Tim RN | | IV | apti-llz-lvvjuu catheter system; | | | | | [...] EVALUATION Jairo Theodore 59 y.o. male 1960 [id number] Procedure(s) REPAIR PSEUDOANEURYSM- FEMORAL (Right ) Cooperates? [...] Rudolph Lowery MD 10/07/2019 4:54 PM PDT [facility] Rudolph Lowery MD [...] EVALUATION Jairo Theodore 59 y.o. male 1960 [id number] Procedure(s): REPAIR PSEUDOANEURYSM- FEMORAL (Right ) Medical,anesthesia, [...] who presents as a tra [facility] ED for pseudoaneurysm of [...] NOTE Jairo Theodore 59 y.o. male 1960 [id number] REPAIR PSEUDOANEURYSM- FEMORAL (Right ) HANDOFF NOTE [...] Rudolph Lowery MD 10/07/2019 4:45 PM PDT [facility] signed by Rudolph Lowery MD [...] [place] | | | | | | [id number] | | | | | | | [...]
--- OUTSIDE RECORDS SUMMARY | ~2019-11-02 | XMS | Encounter Summary ---
Demographics + + + | Address | [address] | | | [place] [address] | + + + | Home Phone [...] Author + + + | Author | [facility] [employer] [facility] | + + + | Organization | [facility] [employer] [facility] | + + + | Address | Unknown | + + + | Phone | Unavailable | + + + Support + + +---------+ + | Name | Relationship | Address | Phone | + + +---------+ + | Lele Conley | ECON | Unknown | | + + +---------+ + Care Team Providers + +------+ + | Care Hot Stamp Operator Name | Role | Phone | [...] | | | Transcribed | [facility] | Beny Ayesha Catherine | | | | | Florin Mailcode: [address] | [place], [place] | | | | | [facility] | [address] | | | | | [place], [place] | [phone] | | | | | [address] | | | | | | [phone] | | | +--------+ + + + [...] 04/30/2007 12:00 AM PSTAssociated Order(s): OPERATION RECORD [id number] FROILAN JUAREZ [id number] Date: 04/30/2007 Attending Surgeon: Orlando Churchill M.D. Co-Surgeon: Rudolph Brewer M.D. Computer Forensics Examiner(s): Jacky Morgan M.D. 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 Procedures Performed: Endovascular repair of abdominal aortic pseudoaneurysm. Anesthesia: General. Indications: This is a 47-year-old man who was flown to [facility] with an abdominal aortic pseudoaneurysm at the proximal anastomosis of a previous aortobifemoral graft. He has suitable anatomy for endovascular repair of the pseudoaneurysm, and is taken to surgery for this. Findings: 1. The repair was performed through a right femoral cutdown accessing the distal moncada of his right aortofemoral graft limb. 2. The aneurysm was repaired with 2 [employer] endovascular components. The most proximal component is [...] direct vision into the abdominal aorta. A 4-Vietnamese pigtail catheter was then placed over the guidewire at approximately the level of the renal artery origins. A separate site on the graft limb was then punctured with an 18-gauge needle, and the guidewire advanced into the abdominal aorta. The patient was systematically heparinized at this point. A 16-Vietnamese sheath was then placed over the guidewire [...] the right aortofemoral graft limb. An iliac employee health rn that is 12 mm at the proximal [...] condition. Orlando Churchill M.D. OUSMANE / HS [id number] / [id number] / [id number] / Electronically signed by Orlando Churchill 05-13-2007 [...] Churchill MD - 04/30/2007 12:00 AM PST [id number] | | [id number] FROILAN JUAREZ [id number] Date: | | 04/30/2007 Attending Surgeon: Orlando Churchill M.D. Co-Surgeon: Rudolph Brewer M.D. | | Computer Forensics Examiner(s): Leroy Jay M.D. Marc Arevalo M.D. 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 Postoperative Diagnosis(es): Abdominal aortic | | pseudoaneurysm. Procedures Performed: Endovascular repair of abdominal aortic | | pseudoaneurysm. Anesthesia: General. Indications: This is a 47-year-old man who was | | flown to [facility] with an abdominal aortic pseudoaneurysm at [...] The aneurysm was repaired with 2 [employer] endovascular components. | | The most proximal [...] into the | | abdominal aorta. A 4-Vietnamese pigtail catheter was then placed over the guidewire at | | approximately the level of the renal artery origins. A separate site on the graft limb | | was then punctured with an 18-gauge needle, and the guidewire advanced into the | | abdominal aorta. The patient was systematically heparinized at this point. A 16-Vietnamese | | sheath was then placed over [...] aortofemoral graft limb. An | | iliac employee health rn that is 12 mm at the proximal [...] condition. Orlando Churchill M.D. OUSMANE / REBEL [id number] / [id number] / [id number] / D: | | 04/30/2007 Electronically signed [...] direct vision into the abdominal aorta. A 4-Vietnamese pigtail | | catheter was then placed over the guidewire at approximately the level of | | the renal artery origins. | | | | A separate site on the graft limb was then punctured with an 18-gauge | | needle, and the guidewire advanced into the abdominal aorta. The patient | | was systematically heparinized at this point. A 16-Vietnamese sheath was then | | placed over [...] | | aortofemoral graft limb. An iliac employee health rn that is 12 mm at the proximal [...] | | GJL / HS | | [id number] / [id number] / [id number] / | | | | | | | | | | | | Electronically signed by Orlando Churchill 05-13-2007 01:33:44 PM | | | | | + + documented in this encounter Visit Diagnoses Not on filedocumented in this encounter"
[~2019-11-02 20:20] MED LIST: KEFLEX500 MG PO; NORCO 5-325 TA1 EACH PO; OXYCODONE-ACET1 EAC1 PO
--- OUTSIDE RECORDS SUMMARY | 2019-11-02 20:22 | XMS ---
PreManage Notification: L[employer]Y [employer] Events No recent Security Events currently on file CRITERIA MET - History of Sepsis - [facility] - 2 Visits in 30 Days CARE PROVIDERS Name Unknown Rf Manager: Clinical 10/04/2019-Current PHONE: [phone] Brionna has no Care Guidelines for this patient. Care History Medical/Surgical 11/02/2019 [facility] - PATIENT HAS AN ESTABLISHING CARE APT WITH DR BAKER AT [facility] ON 12/13/19 @ 4:00PM. 10/30/2019 [facility] - CHW CONTACTED LISA- [place] ODD JOB WORKER- [phone]- TO SEE IF PATIENT IS ELIGIBLE FOR [facility] AND TO CONTACT PATIENT FOR [facility] WITH THE [facility]. - LISA STATED PATIENT IS ELIGIBLE FOR SERVICES AND WILL BE IN CONTACT WITH PATIENT FOR FOLLOW UP. 10/04/2019 [facility] \T\middot;\T\nbsp; PATIENT IS A -RECEIVES SERVICES THROUGH [place] IN [place]. \T\middot;\T\nbsp; Location: [address], [place] [address]- E.D. VISIT COUNT (12 MO.) 4 [facility] TOTAL 4 NOTE: Visits indicate total known visits. ED/UCC VISIT TRACKING (12 MO.) 11/02/2019 20:21 [facility] [place] TYPE: Emergency COMPLAINT: - WEAKNESS 10/28/2019 11:16 [facility] [place] TYPE: Emergency COMPLAINT: - WOUND CHECK DIAGNOSES: - Nicotine dependence, unspecified, uncomplicated - Cellulitis of right upper limb 10/23/2019 11:17 [facility] TYPE: Emergency COMPLAINT: - HAND LAC DIAGNOSES: - Laceration without foreign body of left hand, initial encount - Contact with knife, initial encounter - Laceration without foreign body of left hand, initial encount 10/03/2019 10:25 [facility] TYPE: Emergency COMPLAINT: - SKIN ISSUE, R LEG/FOOT SWOLLEN DIAGNOSES: - Aneurysm of artery of lower extremity - Cellulitis of right lower limb - Nicotine dependence, unspecified, uncomplicated INPATIENT VISIT TRACKING (12 MO.) 10/03/2019 22:09 [facility] [place] TYPE: Internal Medicine DIAGNOSES: - Peripheral vascular disease, unspecified - Cellulitis of right lower limb - pseudoaneurysm - Thrombosis due to vascular prosthetic devices, implants and g - Other acute postprocedural pain - Aneurysm of unspecified site [email or web address]
[2019-11-02] MEDS ORDERED: CLOPIDOGREL75 MG PO (21:23)
[2019-11-02] MEDS ORDERED: ATORVASTATIN CA40 MG PO (21:24)
[2019-11-02] MEDS ORDERED: CALCIUM ANTACI200 MG PO (21:24)
[2019-11-02] MEDS ORDERED: ASPIRIN81 MG PO (21:24)
[2019-11-02] MEDS ORDERED: ACETAMINOPHEN325 M1 PO (21:26)
[2019-11-02] MEDS ORDERED: CEPHALEXIN500 MG PO (21:27)
--- NOTE | 2019-11-02 22:20 | NUR ---
PATIENT ARRIVED VIA STRETCHER TO THE UNIT. TRANSFERED WITH MINIMAL ASSIST TO THE BED. PATIENT FEELS WEAK AND SLIGHTLY LIGHTHEADED WITH STANDING. PATIENT'S HR ELEVATED, 110'S. BP STABLE. PATIENT IS ALERT, DOES NOT PROVIDE DETAILED HISTORY. DENIES PAIN OR NAUSEA. SECOND IV SITE ESTABLISHED BY JOHANNA TERRY. IV FLUIDS STARTED. AWAITING PRBC FROM LAB. PATIENT HAS SEVERAL SCARS HEALING FROM RECENT PROCEDURE. TRENT INNER THIGHS, TRENT GROIN. RLQ. MIDLINE ABD. BRUISING ON LLQ. MULTIPLE SCRATCHES AND BRUSIES ON ARMS AND LEGS. HEALING SCAR ON LEFT HAND WITH STITCHES IN PLACE. DEEP BLACK HOLE ON RIGHT CHEEK. PATIENT REPORTS WAS A CYST THAT DRAINED NATURALLY.
--- NOTE | 2019-11-02 23:51 | NUR ---
2318 FIRST UNIT OF PRBC STARTED. PATIENT'S VS STABLE. PATIENT VERBALIZES UNDERSTANDING OF SIGNS OF TRANSFUSION REACTION. 2335 NO SIGNS OF TRANSFUSION REACTION. VS STABLE.
--- NOTE | 2019-11-03 00:31 | NUR ---
PATIENT UP TO THE [facility]. TRANSFERS WITH MINIMAL ASSIST. PATIENT HAD MEDIUM LOOSE BLACK STOOL. ASSISTED PATIENT BACK INTO BED. PATIENT DENIES ANY OTHER NEEDS. HR 120'S WITH ACTIVITY. 110'S AT REST.
--- NOTE | 2019-11-03 01:36 | NUR ---
15 MINUTES AFTER START OF 2 OF 2 PRBC, VSS. IV SITE WNL AND PT DENIES S/SX OF ALLERGIC REACTION. PUMP TITRATED TO 150MLS/HR. CALL LIGHT IN REACH. VSS.
--- NOTE | 2019-11-03 02:11 | NUR ---
CALL LIGHT ANSWERED. PT UP SBA TO BSC FOR BM. SMALL BLACK BM NOTED, 125MLS EMPTIED FROM URINAL. BLOOD CONTINUES TO INFUSE, SITE WNL. PT REQUESTING ICE CHIPS, OKAY TO GIVE PER PRIMARY HARIRSON FRY. ICE CHIPS PROVIDED. NO FURTHER NEEDS, CALL LIGHT IN REACH.
--- NOTE | 2019-11-03 03:00 | NUR ---
SECOND UNIT PRBC FINISHED. NO SIGNS OF REACTION. VS STABLE. IV SITE WNL X2. IF FLUIDS PER ORDER. SITE WNL. PATIENT DENIES ANY NEEDS. CALL LIGHT IN REACH.
--- NOTE | 2019-11-03 04:00 | NUR ---
ASSISTED PATIENT UP BSC. PATIENT HAD MEDIUM DARK BLACK FORMED STOOL. PATIENT DENIES ANY PAIN. DENIES FEELING DIZZY OR LIGHTHEADED. ASSISTED PATIENT BACK INTO BED. IV FLUIDS PER ORDER, SITE WNL.
--- NOTE | 2019-11-03 07:30 | NUR ---
PATIENT SHIFT REPORT RECIEVED FROM ADMISSIONS ADVISOR RN. PATIENT RESTING IN BED. PATIENT CALLS APPROPRIATELY. WILL CONTINUE TO CLOSELY MONITOR.
--- NOTE | 2019-11-03 09:00 | NUR ---
PATIENT RESTING IN BED. PATIENT ASSESSMENT COMPLETED. PATIENT BREATH SOUNDS CLEAR. BOWEL TONES ACTIVE. PATIENT HAS SOME TENDERNESS ON THE RIGHT LOWER QUADRANT. PATIENT UP TO THE CAMMODE AND HAD A SMALL BLACK SOFT STOOL. PATIENT IS ALERT AND ORIENTED,BUT WOULD LIKE TO KNOW THE PLAN FOR TODAY. NO OTHER CONCERNS AT THIS TIME. WILL CONTINUE TO CLSOELY MONITOR. RASCH IN TO SEE PATIENT. UPDATED MD THAT PATIENT IS STILL TACHYCARDIC WITH AMBULATIONS INTO THE 130'S. NO NEW ORDERS. WILL CONTINUE TO CLOSELY MONITOR.
--- NOTE | 2019-11-03 10:44 | NUR ---
PATIENT RESTING IN BED. PATIENT ASKING WHEN MD DIAZ WILL BE IN TO SEE HIM. PATIENT JUST WANTING TO KNOW THE PLAN FOR THE DAY. UPDATED THAT MD IS IN THE OPERTATING ROOM AT THIS TIME AND WHEN HE IS DONE HE WILL BE BACK TO SEE HIM. WILL CONTINUE TO CLOSELY MONITOR.
--- NOTE | 2019-11-03 11:02 | NUR ---
Received call from [facility]. Pt is currently on for wound care. Updated pt awaiting consult for EGD, HGB dropped from 14 to 6.3 and pt received 2 U PRBC. As this is a holiday weekend, they requests chart to be faxed next week if pt is dc with H&P and DC summary.
--- NOTE | 2019-11-03 12:03 | NUR ---
CONSULT RECEIVED FOR NUTRITION - PATIENT'S BMI IS 17.9. DID NOT DO A FULL NFPE HE IS IN THE ICU, IN BED WITH CUFFS ON AWAITING ENDOSCOPY FOR GI BLEED. HE SAID HE DOES NOT WEIGHT HIMSELF REGULARLY. CURRENT WEIGHT IS 111 LBS AND HE IS 5'6". HE HAS NO TEETH. PER H&P HE DRINKS SEVERAL BEERS A DAY. HE STATES HE HAS PLENTY OF FOOD AT HOME. HE DOES NOT EAT REGULAR MEALS, RATHER HE "EATS WHEN HE IS HUNGRY." HE SAID HE HAS A FREEZER FULL OF STEAKS THAT HE PLANS TO BARBECUE ONCE HE IS ABLE TO GO HOME. ONCE OK TO EAT, A REGULAR DIET WILL BE FINE. HE DIDN'T LIKE [facility] - HE WAS THERE FOR A FEW DAYS IN AUGUST. HE SAID HE DIDN'T EAT FOR THE LAST 2 DAYS WHILE THERE. PATIENT A BIT GRUMPY BECAUSE HE WANTS TO TALK TO THE DOCTOR TO KNOW WHAT THE PLAN IS.
--- NOTE | 2019-11-03 12:20 | NUR ---
CALLED MD KAMARA TO UPDATE THAT PATIENTS RESTING HR IS INCREASING SLIGHTLY AND PATIENTS STANDING HR IS 130. PATIENT DENEIS SOB, DIZZINESS, CHEST PAIN, AND PALPITATIONS. UPDATED THAT MD DIAZ HAS NOT BEEN IN TO SEE PATIENT. PER MD KAMARA. RECHECK A HEMOGLOBIN/HEMATOCRIT NOW. WILL CHECK AND CLOSELY MONITOR.
--- NOTE | 2019-11-03 12:43 | NUR ---
CALL FROM LAB REPORTING THAT PTS HEMOGLOBIN AND HEMATACRIT ARE CRITICAL AT 6.7 [address] REPORT[address] DR KAMARA, ORDER TO GIVE ONE UNIT OF BLOOD. NOTIFIED PTS PRIMARY RN.
--- NOTE | 2019-11-03 13:15 | NUR ---
BLOOD TRANSFUSION STARTED PER MD KAMARA. 1 UNIT AT THIS TIME. WILL CONTINUE TO CLOSELY MONITOR.
--- NOTE | 2019-11-03 13:45 | NUR ---
MD DIAZ IN TO SEE PATIENT. PLANS FOR PATIENT TO GO FOR AN UPPER SCOPE. PATIENT AGREEABLE TO PLAN. 1 UNIT OF PRBC INFUSING AT THIS TIME. PER MD DIAZ HE WOULD LIKE AN ADDITIONAL UNIT OF BLOOD GIVEN TO PATIENT OVER 1 HOUR. THIS WILL TOTAL 4 UNITS OF PRBC. PATIENT HAS ALSO HAD 1 UNIT OF PLATELETS.
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
--- NOTE | 2019-11-03 15:00 | NUR ---
DAT RN HERE TO TAKE PATIENT TO SCOPE. PATIENT STILL GETTING BLOOD TRANSFUSION AT THIS TIME. PATIENT STOOD AND TRANSFERED TO THE STRETCHER ON HIS OWN AND TOLERATED WELL. ALL QUESTIONS ANSWERED. WILL CONTINUE TO CLOSELY MONITOR.
--- NOTE | 2019-11-03 15:34 | NUR ---
Called and spoke with Maile at [facility]. W Tonja Ayoub had spoken with them last week. Dr. Goldstein declined pt, but their new Dr. Pompa will be there in November and pt is scheduled for December 12. I requested they schedule and appt priior to for fu when pt is discharged. They will speak with and let me know on Wednesday after the holiday. They request face sheet and chart to be faxed for Dr. Goldstein to review. H&P and face sheet faxed.
--- NOTE | 2019-11-03 16:07 | NUR ---
11/03/19 Elham7 Shayy Santos 1458- PT TO CCU IN LL POSITION WITH ORAL AIRWAY IN PLACE. EYES CLOSED. DOES NOT RESPOND TO VERBAL OR TACTILE STIMULI. BREATHING EASY AND UNLABORED. SPO2 >95% ON 4 L O2 VIA NC. 1506- ORAL AIRWAY REMOVED. PT CONTINUES TO SLEEP ON LEFT SIDE. O2 TITRATED TO 2 LITERS O2 VIA NC. BREATHING EASY AND UNLABORED. SPO2 >95%.
--- NOTE | 2019-11-03 16:30 | NUR ---
PATIENT BACK FROM OR. PATIENT HAD AN UPPER SCOPE COMPLETED. PER MD DIAZ PATIENT HAD AN ULCER WITH CLIPS PLACED. PATIENT UP TO THE CAMMODE AND TOLERATED WELL. PATIENT HAD AN INCONTINENT BM IN THE BED AND MORE BM IN THE CAMMODE. PATIENT DENIES DIZZINESS. BLOOD TRANSUSION COMPLETED. WILL CONTINUE TO CLOSELY MONITOR.
--- NOTE | 2019-11-03 17:49 | NUR ---
PATIENT RESTING IN BED. PATIENT HAS BEEN UP SEVERAL TIMES TO THE CAMMODE AND IS TOELRATING WELL. CLEAR LIQUID TRAY AT THE BEDSIDE. WILL CONTINUE TO CLSOELY MONITOR. NO OTHER NEEDS AT THIS TIME.
--- NOTE | 2019-11-03 18:47 | NUR ---
PATIENT RESTING IN BED AT THIS TIME. CALL LIGHT IN REACH. PATIENT CALLS APPROPRIATELY. PATIENT DENIES ANY NEEDS AT THIS TIME. WILL CONTINUE TO CLSOELY MONITOR. HR 90'S BP 130'S SYSTOLIC. PATIENT HAS HAD MULTIPLE LOOSE BLACK BMS SINCE HIS SCOPE. ICE WATER AT THE BEDSIDE.
--- NOTE | 2019-11-03 19:29 | NUR ---
REPORT RECEIVED FROM DAY SHIFT RN. PT HAS JUST GOTTEN BACK IN BED FROM [facility], AND NOW WANTS TO SLEEP. RESTING HR 80'S-90'S. DENIES PAIN/NEEDS AT THIS TIME.
--- NOTE | 2019-11-03 20:50 | NUR ---
IN TO ASSESS PT, GIVE HS MEDS AND CARE. PT ASSISTED UP TO BSC FOR SMALL BLACKISH/GREEN STOOL. DENIES PAIN/NAUSEA/SOB OR DIZZINESS. HR WENT FORM 90'S TO 100'S WHILE UP AND QUICKLY BACK DOWN ONCE IN BED. ALERT AND ORIENTED, EDUCATED REGARDING MEDS GIVEN, CARAFATE AND PROTONIX. CALL LIGHT IN REACH.
--- NOTE | 2019-11-03 21:34 | NUR ---
UP TO BSC, BACK TO BED, HAD SMALL GREEN/BLACK STOOL. HR WENT FROM 90 TO 100 WHEN UP, NOT HIGH LAST TIME HE WAS UP. CONT TO DENY PAIN/NAUSEA/SOB, DENIES DIZZINESS. CALL LIGHT IN REACH.
--- NOTE | 2019-11-03 23:15 | NUR ---
UP TO BSC THEN BACK TO BED. ASSESSMENT DONE, PT CONT TO DENY PAIN/NAUSEA/SOB. HR 80'S AT REST, UP TO 105 WHEN UP THEN BACK DOWN TO 80'S IN BED. CALL LIGHT IN REACH.
--- NOTE | 2019-11-04 02:20 | NUR ---
UP TO BSC THEN BACK TO BED. DENIES PAIN OR OTHER NEEDS. HR 80'S.
--- NOTE | 2019-11-04 05:41 | NUR ---
LAB IN TO DRAW
--- NOTE | 2019-11-04 07:00 | NUR ---
Report received, orders acknowledged.
--- NOTE | 2019-11-04 07:30 | NUR ---
Patient laying in bed watching tv. Denies pain or nausea. Patient states "I'm hungry, I need some real food." Clear liquid tray ordered for patient, discussed talking to MD about advancing diet if patient tolerates meal without pain or nausea. Patient denies any further needs at this time, call light within reach.
--- NOTE | 2019-11-04 08:00 | NUR ---
Patient laying in bed watching tv. Vital signs taken, assessment complete. AM medications given. Patient denies pain or nausea. No needs at this time, call light within reach.
--- NOTE | 2019-11-04 08:29 | NUR ---
Dr. Aburto in room to assess patient and discuss POC
--- NOTE | 2019-11-04 09:30 | NUR ---
Patient up to commode with 1PA, steady on feet. Small BM produced. Patient returns to chair. Denies pain or nausea after eating full liquid meal. Fluids infusing at 85 mls/hr. Denies needs at this time, call light within reach.
--- NOTE | 2019-11-04 09:55 | NUR ---
Patient requests to return to bed, which is accomodated. 1PA to bed, steady on feet. Warm blankets provided. Denies needs, call light within reach.
--- NOTE | 2019-11-04 10:16 | NUR ---
Patient laying in bed watching tv. Fluids infusing at 85 mls/hr. Call light within reach.
--- NOTE | 2019-11-04 11:32 | NUR ---
PATIENT USES CALL LIGHT AND STATES HIS RIGHT EAR IS "PLUGGED UP TIGHT", AND INQUIRES IF THAT IS SOMETHING HE CAN HAVE FIXED WHILE HE'S STILL HERE IN THE HOSPITAL. DISCUSSED WITH PATIENT THAT THIS IS NOT SOMETHING WE ARE ABLE TO PROVIDE FOR HIM. URINAL EMPTIED FOR 150 ML. PT DENIES FURTHER NEEDS. CONTINUE TO MONITOR.
--- NOTE | 2019-11-04 12:00 | NUR ---
Patient up to chair for lunch. SBA, steady on feet. Patient ate 75% of meal, no pain or nausea noted. Vital signs taken, assessment complete. Patient up to commode, BM produced. Patient returns to bed, SBA. Warm blanket provided, denies further needs. Call light within reach.
--- NOTE | 2019-11-04 13:15 | NUR ---
Patient up to commode with SBA, steady on feet. BM produced. Patient returns to bed with SBA. Denies pain or nausea, no further needs at this time. Call light within reach.
--- NOTE | 2019-11-04 14:39 | NUR ---
PT UP TO SIT IN CHAIR AT BEDSIDE.
--- NOTE | 2019-11-04 14:53 | NUR ---
DR DIAZ IN TO SEE PT. PT ORDERING REGULAR LUNCH
--- NOTE | 2019-11-04 15:30 | NUR ---
Patient up to commode with SBA. Small BM produced. Patient denies pain or nausea after eating meal. Returns to bed, denies further needs. Call light within reach.
--- NOTE | 2019-11-04 16:30 | NUR ---
Dr. Aburto in room to assess patient. Discharge plan discussed.
[2019-11-04] MEDS ORDERED: SUCRALFATE1 GM PO (16:31)
[2019-11-04] MEDS ORDERED: PANTOPRAZOLE SO40 MG PO (16:32)
--- NOTE | 2019-11-04 17:15 | NUR ---
Discharge instructions given. Patient verbalized understanding of importance of follow-up visit with PCP. Plan for patient to establish care with a PCP with home health nurse. Vital signs taken. All patient belongings collected. Patient leaves unit via wheelchair with nursing staff.
--- NOTE | 2019-11-05 11:20 | CONS ---
[facility] [address], [place] [address] Signed DATE OF CONSULTATION: 11/03/2019 PROBLEM: Anemia and probable melena. HISTORY: This 59-year-old white man has numerous medical problems, most of it related to vasculopathy. He has had peripheral vascular surgery including what sounds like aortobifemoral bypass as well as proximal femoral-popliteal bypass. The patient has had melena and was found to be significantly anemic and admitted through the emergency room by Dr. Aburto yesterday for that. He had no hematemesis. The patient had a pseudoaneurysm of the right aortofemoral bypass, which was recently repaired on October 03, 2019. His initial aorto-fem bypass was in 1999. The patient has ongoing alcohol and tobacco abuse and has had cellulitis of the right lower extremity as well. Since admission, he received 3 units of packed red cells. He also got a unit of platelets as he is taking Plavix currently. A request is made for consideration for upper endoscopy for possibility of an upper gastrointestinal source of his melena and anemia. His hematocrit most recently observed was 19.4 cells right now. His hematocrit was 23 previously. PHYSICAL EXAMINATION: GENERAL: This is a small white male with a full che. He is alert and oriented. Not diaphoretic. There is a small ulcerated skin lesion over his right face related to prior excision. HEENT: Trachea is midline. CHEST: Shows normal respiratory excursion. Pulses regular at 114. ABDOMEN: Nondistended and soft. He has a well-healed midline incision and has two femoral incisions that are well healed and without sign of ecchymosis or other particular problem. ASSESSMENT: The source of his melena and anemia is uncertain. It is unlikely vascular enteric fistula problem particularly though it is acknowledged that he did have a pseudoaneurysm repaired only a month ago today. He has been on aspirin and Plavix and peptic disease is quite possible given his underlying smoking and alcohol use. I have recommended upper endoscopy to be performed today to assess for a source for upper gastrointestinal bleeding. The risks of bleeding, infection, perforation, and so forth were reviewed with him. He understands. We will plan to use anesthesia for sedation in this situation Electronically Signed By: GABE DIAZ MD 11/05/19 1120 PATIENT NAME: LARRY MCGOVERN CONSULTATION DATE OF : 56 REPORT #: [id number] PHYSICIAN: GABE DIAZ MD PCP: NO PRIMARY CARE PHYSICIAN REPORT IS CONFIDENTIAL AND NOT TO BE RELEASED WITHOUT AUTHORIZATION [facility] [address], [place] [address] Signed given his overall medical infirmity. Additional transfusion of blood may be appropriate given the most recent hematocrit with his nurse. MD SONAM Sapp/RADHA /[id number] cc: Andrew Aburto MD Copies: ANDREW ABURTO MD ~ Electronically Signed By: GABE DIAZ MD 11/05/19 1120 PATIENT NAME: MCGOVERNLARRY CONSULTATION DATE OF : 56 REPORT #: [id number] PHYSICIAN: GABE DIAZ MD PCP: NO PRIMARY CARE PHYSICIAN REPORT IS CONFIDENTIAL AND NOT TO BE RELEASED WITHOUT AUTHORIZATION
--- NOTE | 2019-11-05 11:20 | OR ---
[facility] [address], [place] [address] Signed DATE OF OPERATION: 11/03/2019 SURGEON: Gabe Diaz MD PREOPERATIVE DIAGNOSES: 1. Melena with significant anemia (hematocrit 19 following transfusion). 2. Chronic alcoholism and smoking. 3. History of multiple vascular operations including repair of pseudoaneurysm on October 03, 2019, right femoral area from aortobifem bypass graft in the past. POSTOPERATIVE DIAGNOSES: 1. Second portion of duodenum ulcer with visible vessel, mild bleeding. 2. Hiatal hernia and small Schatzki's ring, no evidence of varices. PROCEDURES: 1. Esophagogastroduodenoscopy with biopsy. 2. Endoscopic control of bleeding vessel, duodenum (hemoclip). ANESTHESIA: Intravenous sedation propofol infusion; Chelsi Silva CRNA INDICATIONS: This markedly discrepant 59-year-old white man, who is a patient of Dr. Aburto, having been admitted to the hospital late yesterday. He has alcohol dependency and tobacco smoking and a month ago today underwent repair of femoral pseudoaneurysm following aortofemoral grafting a number of years ago. He presented with significant anemia. His hematocrit has been as low as 19.7. He does take Plavix and aspirin. He was noted to have frequent dark bloody stool and dizziness, for which evaluation in the emergency room prompted admission by Dr. Aburto to the Intensive Care Unit. The patient drinks several beers daily and smokes. He has undergone transfusion therapy at least 4 units of packed red cells as far as I know, and he is hemodynamically stable at this moment. He is to undergo upper endoscopy to better characterize the problem of his melena and resultant anemia. He understands the risks of bleeding, infection, perforation, and failure to control bleeding source if identified and wished to proceed. FINDINGS: The bleeding source was an ulcer in the duodenum. A visible vessel was noted. It was controlled with hemoclips, multiply applied. There was no sign of ongoing bleeding. He Electronically Signed By: GABE DIAZ MD 11/05/19 1120 PATIENT NAME: LARRY MCGOVERN OPERATIVE REPORT DATE OF : 56 REPORT #: [id number] PHYSICIAN: GABE DIAZ MD PCP: NO PRIMARY CARE PHYSICIAN REPORT IS CONFIDENTIAL AND NOT TO BE RELEASED WITHOUT AUTHORIZATION [facility] [address] [place], [place] [address] Signed had duodenitis and mild gastritis. CLOtest biopsies were thus far negative for H. pylori. Retroflexed view showed a small hiatal hernia and he did have a small Schatzki's ring. There were no esophageal varices. Stomach did have chronic gastritis. DESCRIPTION OF PROCEDURE: The patient was brought to the endoscopy suite and placed in lateral decubitus position. A unit of blood had just finished infusing, I believe unit #4 or possibly 5. A bite block was placed. Under full cardiopulmonary monitoring, he was given intravenous sedation with propofol infusional technique. The Olympus video upper endoscope was passed by hypopharynx after direct placement of a bite block. Vocal cords appeared normal. Esophagus was normal with no sign of varices or stricture, particularly, there is no Campuzano epithelium. Scope was advanced to the stomach, which was insufflated with air. Rugal folds were normal. There was no sign of blood or fluid in the stomach. The scope was passed into the duodenum, where a small amount of fresh blood was noted initially. The scope was passed to the second and third portions. The scope was then carefully withdrawn ulcerated area with a visible vessel. Irrigation was gently undertaken, showing no sign of spurting blood at this time, but a blood clot and recent stigmata of bleeding associated with the visible vessel. Meticulous application of hemoclips was undertaken ultimately of four, possibly five applied to the site providing excellent hemostasis and complete security to the site. The scope was withdrawn to the stomach and biopsies taken of the antrum for both YING and pathologic testing. Retroflexed view of the stomach showed a small hiatal hernia. The scope was withdrawn to the distal esophagus. There was affirmed to be no evidence of varices or Campuzano epithelium, although there was a small Schatzki ring. Careful withdrawal of scope showed no other abnormalities. The scope was removed, and the patient was taken to the recovery room in good condition. CONCLUDING DIAGNOSIS: Melena related to duodenal ulcer, multifactorial etiology, including chronic alcoholism and smoking and exacerbated by use of aspirin and Plavix. PLAN: I have reviewed with Dr. Aburto. We will initiate Carafate as well as continued use of PPI medication. A liquid diet may be permissible. Avoidance of smoking and drinking alcohol is paramount. We would avoid anti-platelet agents for the time being. Gabe Diaz MD Electronically Signed By: GABE DIAZ MD 11/05/19 1120 PATIENT NAME: LARRY MCGOVERN OPERATIVE REPORT DATE OF : 56 REPORT #: [id number] PHYSICIAN: GABE DIAZ MD PCP: NO PRIMARY CARE PHYSICIAN REPORT IS CONFIDENTIAL AND NOT TO BE RELEASED WITHOUT AUTHORIZATION [facility] [address] [place], [place] [address] Signed /[facility] /[id number] cc: Andrew Aburto MD Copies: ANDREW ABURTO MD ~ Electronically Signed By: GABE DIAZ MD 11/05/19 1120 PATIENT NAME: MCGOVERNLARRY OPERATIVE REPORT DATE OF : 56 REPORT #: [id number] PHYSICIAN: GABE DIAZ MD PCP: NO PRIMARY CARE PHYSICIAN REPORT IS CONFIDENTIAL AND NOT TO BE RELEASED WITHOUT AUTHORIZATION
== END 2019-11-04 17:18 | disposition home or self-care (01) | DRG 378 ==
LOC: ED 20:20 → CCU 21:54
PROVIDERS: Surgery; ADMIT Internal Medicine; ATTEND Internal Medicine
PROC: 30233R1 Transfusion of Nonautologous Platelets into Peripheral Vein, Percutaneous Approach (ICD-10-PCS; 2019-11-02)
PROC: 0DB68ZX Excision of Stomach, Via Natural or Artificial Opening Endoscopic, Diagnostic (ICD-10-PCS; 2019-11-03)
PROC: 30233N1 Transfusion of Nonautologous Red Blood Cells into Peripheral Vein, Percutaneous Approach (ICD-10-PCS; 2019-11-03)
PROC: 0W3P8ZZ Control Bleeding in Gastrointestinal Tract, Via Natural or Artificial Opening Endoscopic (ICD-10-PCS; principal; 2019-11-03 14:45)
DX: K26.4 Chronic or unspecified duodenal ulcer with hemorrhage (principal); D62 Acute posthemorrhagic anemia; F17.200 Nicotine dependence, unspecified, uncomplicated; K29.50 Unspecified chronic gastritis without bleeding; K44.9 Diaphragmatic hernia without obstruction or gangrene; K22.2 Esophageal obstruction; F10.20 Alcohol dependence, uncomplicated; Z79.02 Long term (current) use of antithrombotics/antiplatelets; Z79.82 Long term (current) use of aspirin; Z79.891 Long term (current) use of opiate analgesic; Z79.899 Other long term (current) drug therapy
CPT/HCPCS: 36415; 80048; 80053; 83735; 85014; 85018; 85025; 85610; 85730; 86850; 86900; 86901; 86920; C9113; C9803; G0480; J2001; J2704; J3480; J7120; J7121; P9035

== ENCOUNTER 2019-11-17 23:52 | Emergency (ER) | payer MEDICARE, OTHER ==
[~2019-11-17] VITALS: Ht 167.6 cm; Wt 58.5 kg
--- OUTSIDE RECORDS SUMMARY | ~2019-11-17 | XMS | Encounter Summary ---
Demographics + + + | Address | [address] | | | [place] [address] | + + + | Home Phone | | + + + | Preferred Language | Unknown | + + + | Marital Status | Single | + + + | Anabaptism Affiliation | 1009 | + + + | Race | White | + + + | Ethnic Group | Not or | + + + Author + + + | Author | [facility] | | | and [place] | + + + | Organization | [facility] | | | and [place] | + + + | Address | Unknown | + + + | Phone | Unavailable | + + + Support + + +---------+ + | Name | Relationship | Address | Phone | + + +---------+ + | Lele Conley | ECON | Unknown | | + + +---------+ + Care Team Providers + +------+ + | Care Civil Engineering Project Designer Name | Role | Phone | + +------+ + | No, Physician | PCP | Unavailable | + +------+ + Reason for Visit Auth/Cert +--------+--------+ + + + + | Status | Reason | Specialty | Diagnoses / | Referred By | Referred To | | | | | Procedures | Contact | Contact | +--------+--------+ + + + + | | | | Diagnoses | | | | | | | | | | | | | | pseudoaneury | | | | | | | sm | | | | | | | Procedures | | | | | | | Emergency/Ur | | | | | | | gent Care | | | +--------+--------+ + + + + Encounter Details +--------+ + + + + | Date | Type | Department | Care Team | Description | +--------+ + + + + | 10/07/ | Anesthesia | [facility] | [facility], | | | 2020 | Event | [facility] | DO [address] | | | | | [address] | [address] | | | | | [address]ON[address]EN[address] | [place] [address] | | | | | [place], [place] | [phone] | | | | | [address] | | | | | | [phone] | | | +--------+ + + + + Anesthesia Record + + + + + | Procedure Name | Responsible | Anesthesia Start | Anesthesia Stop Time | | | Anesthesiologist | Time | | + + + + + | THROMBECTOMY / | Orlando Ambriz, | 10/08/19 0938 | 10/08/19 1433 | | EMBOLECTOMY of fem | DO | | | | fem bypass (N/A ) | | | | + + + + + +----+---+ + + | Da | T | Event | Comment | | te | i | | | | | m | | | | | e | | | +----+---+ + + | 08 | 0 | An Checkout | Pre-use anesthesia machine/equipment checkout. | | /0 | 9 | | | | 9/ | 3 | | | | 20 | 8 | | | | 20 | | | | +----+---+ + + | | 0 | An Start | Reassessment prior to anesthesia induction/procedure. | | | 9 | | | | | 3 | | | | | 8 | | | +----+---+ + + | | 0 | An | | | | 9 | Induction | | | | 4 | | | | | 5 | | | +----+---+ + + | | 0 | An | | | | 9 | Intubation | | | | 4 | | | | | 6 | | | +----+---+ + + | | 0 | Anesthesia | | | | 9 | Ready | | | | 5 | | | | | 3 | | | +----+---+ + + | | 0 | Antibiotic | | | | 9 | Given | | | | 5 | | | | | 4 | | | +----+---+ + + | | 0 | First | | | | 9 | Inc/Proc St | | | | 5 | | | | | 8 | | | +----+---+ + + | | 1 | Royal | | | | 0 | 43-degrees | | | | 0 | | | | | 0 | | | +----+---+ + + | | 1 | Quick Note | PRBC transfusion Unit [id number] | | | 3 | | | | | 3 | | | | | 2 | | | +----+---+ + + | | 1 | Quick Note | PRB unit [id number] | | | 3 | | | | | 3 | | | | | 9 | | | +----+---+ + + | | 1 | Extubation/ | | | | 4 | Airway LDA | | | | 2 | Removal | | | | 8 | | | +----+---+ + + | | 1 | An Stop | Patient handed off to recovery nurse. | | | 3 | | | | | 3 | | | +----+---+ + + +------+ | Meds | +------+ + + + | Name | Total | + + + | ceFAZolin in dextrose (ANCEF) | 2 g | | IVPB 2 g | | + + + | midazolam 2 mg/mL | 2 mg | + + + | fentaNYL | 100 mcg | + + + | lidocaine 2% | 100 mg | + + + | rocuronium | 90 mg | + + + | succinylcholine | 100 mg | + + + | dexamethasone | 4 mg | + + + | phenylephrine | 200 mcg | + + + | neostigmine | 2 mg | + + + | glycopyrrolate | 0.4 mg | + + + | etomidate | 16 mg | + + + | heparin 5,000 units/mL injection | 7,000 Units | + + + | phenylephrine | 7,880 mcg | + + + | ondansetron (ZOFRAN) injection | 4 mg | | 4-8 mg | | + + + | esmolol | 20 mg | + + + | Plasmalyte | 1,800 mL | + + + | NS (Infusion) | 1,000 mL | + + + + + | Name | + + | N2O Flow Rate (L/Min) | + + | O2 Flow Rate (L/Min) | + + | Insp O2 | + + | Exp N2O | + + | Exp SEV | + + | Air Flow Rate (L/Min) | + + + +--------+ | Name | Total | + +--------+ | PRBC-INTRAOP | 600 mL | + +--------+ +--------+ + + + | Type | Details | Placement | Removal | +--------+ + + + | Wound | 10/07/19; 1615; Incision; | 10/07/19 1615 by | | | | Bilateral; groin | Beverley Logan | | | | | HARRISON Flanagan | | +--------+ + + + | Wound | 10/07/19; 1615; Incision; | 10/07/19 1615 by | | | | Bilateral; abdomen; right | Beverley Logan | | | | | HARRISON Flanagan | | +--------+ + + + | Wound | 10/08/19; 1358; Incision; Left; | 10/08/19 1358 by | | | | anterior; groin; Left Wound Vac | Georgie Catalan RN | | | | and AUGUSTUS drain | | | +--------+ + + + | Wound | 10/08/19; 1358; Incision; Right; | 10/08/19 1358 by | | | | anterior; groin; prevena Wound | Beverley Logan | | | | Vac and AUGUSTUS drain | HARRISON Flanagan | | +--------+ + + + | Wound | 10/08/19; 1417; Incision; | 10/08/19 1417 by | | | | Bilateral; leg; deny drain | Beverley Logan | | | | (bilateral) | HARRISON Flanagan | | +--------+ + + + | Periph | 10/06/19; 1856; Right; Posterior | 10/06/191856 by | 10/11/19 0900 by | | eral | (dorsal); Forearm; | Ian Linn RN | Amanda Tim RN | | IV | [id number] catheter system; | | | | | 20 gauge; distraction; IV leaking | | | | | ; 10/11/19; 0900 | | | +--------+ + + + | Urethr | 10/07/19; 0733; indicated due to | 10/07/19 0733 by | 10/09/198 by | | al | specific surgical procedure; All | Beverley Logan | Moreno Catalan RN | | Cathet | elements; All elements; All | HARRISON Flanagan | | | er | elements; indwelling single lumen | | | | | catheter; latex; 16; None; 1; | | | | | 10; 10; none (patient under | | | | | general anthesia); (patient | | | | | under anthesia); drainage bag to | | | | | dependent drainage; urethral | | | | | catheter removed, per | | | | | protocol/policy; short term use; | | | | | 10/09/19; 2338 | | | +--------+ + + + | Periph | 10/07/19; 0750 (created via | 10/07/19 0750 by | 10/09/19 0000 by | | eral | procedure documentation); Left; | Rudolph Lowery, | Urszula Austin, | | IV | Posterior (dorsal); Wrist; 18 | MD | RN | | | gauge; removed per | | | | | policy/procedure, site | | | | | symptomatic, catheter/device | | | | | intact; 10/09/19; 0000 | | | +--------+ + + + | Arteri | 10/07/19; 0753 (created via | 10/07/19 0753 by | 10/10/19 0431 by | | al | procedure documentation); | Rudolph Lowery, | Moreno Catalan RN | | Line | Alcohol; under GA; Right; radial | MD | | | | artery; 20 gauge; continuous | | | | | blood pressure monitoring, | | | | | frequent blood gas measurement; | | | | | ultrasound guided; arm board, | | | | | other (see comments) (mastisol); | | | | | no longer indicated (removed by | | | | | Dr garcia verbal order); | | | | | Procedure performed by | | | | | Chandler, after 2 failed attempts | | | | | by Dr. Lowery on the left arm. | | | | | 1st attempt got flash and it | | | | | threaded, but when the catheter | | | | | was hubbed there was no return of | | | | | blood or waveform, 2nd attempt | | | | | was more proximal, again threaded | | | | | catheter but no waveform or | | | | | pulsatile flow back. Both | | | | | attempts done under ultrasound. | | | | | At this point, Dr. Lowery asked | | | | | Dr. Arteaga to try. He opted for | | | | | placement in the other arm, | | | | | single attempt with ultrasound. | | | | | No complications. Patient | | | | | consented for a-line placement | | | | | prior to anesthesia. After | | | | | induction of GA, patient arm was | | | | | secured in preparation for | | | | | procedure. Artery was | | | | | identified with ultrasound.. | | | | | Area was prepped with ETOH wipe. | | | | | Under direct visualization, 20 | | | | | Gauge angiocath/needle was | | | | | inserted into artery with | | | | | confirmation of arterial blood | | | | | with subsequent advancement of | | | | | wire into artery. Using | | | | | seldinger technique 20 gauge | | | | | angiocath was advanced over | | | | | needle and wire into artery. | | | | | Proper placement was confirmed | | | | | with positive blood return | | | | | through angiocath and waveform | | | | | tracing on the monitor. Catheter | | | | | was secured in usual fashion. | | | | | No issues with procedure. ; | | | | | 10/10/19; 0431 | | | +--------+ + + + | Periph | 10/07/19; 0756 (created via | 10/07/19 0756 by | 10/09/19 0000 by | | eral | procedure documentation); Right; | Rudolph Lowery, | Urszula Austin, | | IV | Proximal, Medial; Forearm; 18 | MD | RN | | | gauge; site symptomatic, | | | | | catheter/device intact; 10/09/19; | | | | | 0000 | | | +--------+ + + + | Drain/ | 10/07/19; 1530; #1; Left; | 10/07/19 1530 by | 10/15/19 1021 by | | Device | (groin); gravity; 10/15/19; 1021 | Beverley Logan | Nigel Starkey RN | | Site | | HARRISON Flanagan | | +--------+ + + + | Drain/ | 10/07/19; 1532; #3; Right; | 10/07/19 1532 by | 10/11/19 0900 by | | Device | gravity; removed in past; | Beverley Logan | Kathie Llamas RN | | Ceeclia | 10/11/19; 09 (not present upon | HARRISON Flanagan | | | | arrival) | | | +--------+ + + + | Drain/ | 10/07/19; 153; #2; Right; | 10/07/19 1534 by | 10/11/19 0900 by | | Device | (groin); gravity; removed in | Beverley Logan | Kathie Llamas RN | | Site | past; 10/11/19; 0900 (not present | HARRISON Flanagan | | | | upon arrival) | | | +--------+ + + + | Drain/ | 10/08/19; #4; Right; anterior; | 10/08/19 0000 by | 10/11/19 0800 by | | Device | thigh; collapsible closed device; | Karishma Hunter RN | Amanda Tim RN | | Site | 10/11/19; 0800 | | | +--------+ + + + | Airway | Placement Date: 10/08/19; | 10/08/19 09 by | 10/08/19 1428 by | | | Placement Time: 945 (created via | Orlando Ambriz, | Orlando Ambriz, | | | procedure documentation); | DO | DO | | | Successful Technique: Mac; | | | | | Laryngoscope Blade Size: 4; | | | | | Attempts: 1; Airway Type: | | | | | endotracheal; Size: 8; Trauma: | | | | | none; Placement Check: exhaled | | | | | CO2 detection device, bilateral | | | | | chest rise, breath sounds equal | | | | | bilaterally; Removal Date: | | | | | 10/08/19; Removal Time: 142 | | | +--------+ + + + | Drain/ | 10/08/19; 1344; #5; Left | 10/08/19 1344 by | 10/11/19 0900 by | | Device | (bilateral drain 7 f deny | Beverley Logan | Kathie Llamas RN | | Site | drain); anterior; thigh; | Schoengarth, RN | | | | collapsible closed device; | | | | | removed in past; 10/11/19; 09 | | | | | (not present upon arrival) | | | +--------+ + + + documented in this encounter Social History + +-------+ +--------+ + | Tobacco Use | Types | Packs/Day | Years | Date | | | | | Used | | + +-------+ +--------+ + | Current Every Day | | 1 | | Quit: 10/03/2019 | | Smoker | | | | | + +-------+ +--------+ + + +---+---+---+ | Smokeless Tobacco: | | | | | Former User | | | | + +---+---+---+ + + +---------+ + | Alcohol Use | Drinks/Week | oz/Week | Comments | + + +---------+ + | Yes | 30 Cans of beer | 30.0 | last drink / | + + +---------+ + + + + | Sex Assigned at | Date Recorded | | | | + + + | Not on file | | + + + documented as of this encounter OR Notes Anesthesia Postprocedure Evaluation - Orlando Ambriz DO - 10/08/2019 2:39 PM PDTForm atting of this note might be different from the original. ANESTHESIA POSTANESTHESIA EVALUATION Jairo Theodore 59 y.o. male 1960 [id number] Procedure(s) THROMBECTOMY / EMBOLECTOMY of fem fem bypass (N/A ) BYPASS GRAFT FEMORAL-POPLITEAL (Bilateral Leg Upper) ANGIOGRAM - EXTREMITY BILATERAL (55518) (Bilateral ) Cooperates? Yes Mental Status Answers questions appropriately., Performs simple tasks. and Alert Respiratory Satisfactory - Airway patent (self maintained). Cardiovascular Satisfactory - Blood pressure and heart rate acceptable Temperature Satisfactory Pain Satisfactory N/V Control Satisfactory Hydration Satisfactory - No signs of dehydration Adverse Events ADVERSE EVENTS: No adverse events Vitals Value Taken Time Temp 36.3 C (97.3 F) 10/08/19 1432 Pulse 103 10/08/19 1438 Resp 17 10/08/19 1438 BP 88/72 10/08/19 1435 Arterial Line BP 92/61 10/08/19 1438 Arterial Line BP 2 SpO2 100 % 10/08/19 1438 Vitals shown include unvalidated device data. Electronically signed by Orlando Ambriz DO 10/08/2019 2:39 PM PDT [facility] Orlando Ambriz DO at 2019 2:39 PM PDTAnesthesia Procedure Notes - Orlando Ambriz DO - 10/08/2019 10:03 AM PDTAssociated Order(s): AirwayAnesthesia Airway Placement 10/08/2019 9:46 AM Preprocedure check: patient identified, oxygen, airway assessed, airway equipment checked a nd patient reassessment prior to induction Successful technique: Mac Laryngoscope blade size: 4 Attempts: 1 Airway type: endotracheal Size: 8 Cuffed: cuffed Route, reference point: right side of mouth Tube secured with: adhesive tape Trauma: none Tube placement verification: equal bilateral breath sounds, bilateral chest rise and carbon dioxide detection Performing provider: Orlando Ambriz DO Authorizing provider: Orlando Ambriz DO Please see intraoperative grid for any additional medication documentation. nesthesia Prepro cedure Evaluation - Orlando Ambriz DO - 10/08/2019 9:25 AM PDT ANESTHESIA PREANESTHESIA EVALUATION Jairo Theodore 59 y.o. male 1960 [id number] Procedure(s): THROMBECTOMY / EMBOLECTOMY of fem fem bypass (N/A ) Medical,anesthesia, drug, allergy histories reviewed, NPO status verified. ECG reviewed. Labs reviewed. (-) perioperative beta-martínez/statin not given/taken, Review of Systems / Med History Anesthesia History (+) previous surgery or anesthesia. Family Anesthesia History Family Anesthesia Negative except where noted below. Cardiovascular (+) hypertension and essential (+) coronary artery disease. (+) PVD: . Pulmonary (+) tobacco use.(+) current smoker. Gastrointestinal/Hepatic (+) alcohol problem. Hematology/Other (+) HIV. Obstetrics Negative except where noted below. Pediatric History Negative except where noted below. Psychology (+) substance abuse, alcohol, other, marijuana. Additional Comments: HPI from H&P note (03 October 2019) 59 y.o. 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 Per patient right pseudoaneurysm of the right groin has been getting bigger for at least a year. Right foot swelling for 5 days. Patient reports similar episodes at least twice a year but this time it has persited. Patient soaked his feet in epson salt two night in a row try ing to get the swelling down but it worsen. Right groin and foot are not painful but uncomf ortable. Patient is walking on his right heel due to pain in the front of his foot. Drinks a 6 pack of beer or more daily and smoke 1 ppd. No hx of withdrawal or DT or seizure. Pseudoaneurysm right aorto femoral bypass Alcohol abuse Tobacco abuse Cellulitis of right foot Echo 10-04-2019 There is normal left ventricular systolic function. The left ventricular ejection fractio n is 70%. There is moderate concentric left ventricular hypertrophy. There is normal left atrial pressure and grade I left ventricular diastolic dysfunction. Normal size right ventricle, with normal right ventricular systolic function. There is mild aortic sclerosis, without stenosis. No significant valvular abnormalities a re noted. Physical Exam Airway MP I, TM >3 FB, Mouth opening >2 FB. Neck: full ROM, extends >30 degrees. Facial hair present: Yes Dental (+) dentures-lower and dentures-upper. CV cardiovascular normal Pulm Clear to auscultation bilaterally. Neuro grossly normal. Other LABS: 06 October 2019: CBC: 8>13.6/38.9<140 BMP: 136/3.9/105/22/9/0.70<92 Mg 1.6 04 October 2019 Echo: There is normal left ventricular systolic function. The left ventricular ejection fracti on is 70%. There is moderate concentric left ventricular hypertrophy. There is normal left atrial pressure and grade I left ventricular diastolic dysfunction. Normal size right ventricle, with normal right ventricular systolic function. There is mild aortic sclerosis, without stenosis. No significant valvular abnormalities are noted. There are no previous echocardiographic studies available for comparison. 04 October 2019 carotid u/s: 1. Atherosclerotic vascular disease with some shadowing plaque, limiting proximal left ICA visualization. However, no high-grade stenosis of either internal carotid artery by velocity.1. Atherosclerotic vascular diseas e with some shadowing plaque, limiting proximal left ICA visualization. However, no high-grade stenosis of either internal carotid artery by velocity. Anesthesia Plan ASA: 3E Type: General. GETA Induction: Intravenous. Potential problems: None anticipated. Monitors: Standard ASA monitors. Arterial line and CVP (possible CVP. ) to aid in hemodynamic monitoring. Consent statement: Anesthetic plan, alternatives, risks and benefits discussed with patient. Consenting person understands and agrees to proceed. documented in thi s encounter Miscellaneous Notes Anesthesia Post-op Handoff - Orlando Ambriz DO - 10/08/2019 2:33 PM PDT ANESTHESIA HANDOFF NOTE Jairo Theodore 59 y.o. male 1960 [id number] THROMBECTOMY / EMBOLECTOMY of fem fem bypass (N/A ) BYPASS GRAFT FEMORAL-POPLITEAL (Bilateral Leg Upper) ANGIOGRAM - EXTREMITY BILATERAL (74989) (Bilateral ) HANDOFF NOTE Handoff Protocol Used: post-procedure handoff checklist completed The following were completed during the transfer of care: 1. Identification of patient 2. Identification of responsible practitioner (primary service) 3. Discussion of pertinent medical history 4. Discussion of the surgical/procedure course (procedure, reason for surgery, procedure pe rformed) 5. Intraoperative anesthetic management and issues/concerns 6. Expectations/plans for the early post-procedure period 7. Opportunity for questions and acknowledgement of understanding of report from receiving team Patient Location: Phase I Condition: awake and alert Airway/O2: face mask with O2 The significant anesthesia concerns and VS in Epic were reviewed with the receiving team. Orlando Ambriz DO 10/08/2019 2:33 PM PDT [facility] signed by Orlando Ambriz DO at 2019 2:34 PM PDTdocumented in this encounter Plan of Treatment +--------+ + + + + | Date | Type | Specialty | Care Team | Description | +--------+ + + + + | 02/06/ | Appointment | Radiology | Ricci De León DNP | | | 2019 | | | [address] | | | | | | [place] | | | | | | [address] | | | | | | | | +--------+ + + + + | 02/06/ | Office | Vascular Surgery | Ricci De León DNP | | 2019 | Visit | | [address] | | | | | | [place] | | | | | | [address] | | | | | | | | | | | | Magdiel Arteaga MD | | | | | | [address] | | | | | | [place] [facility] | | | | | | [place] [address] | | | | | | [phone] | | | | | | | | +--------+ + + + + documented as of this encounter Procedures + +--------+ + + + | Procedure Name | Priori | Date/Time | Associated Diagnosis | Comments | | | ty | | | | + +--------+ + + + | ANE AIRWAY NOTE | Routin | 10/08/2019 | | Results for this | | | e | 10:03 AM | | procedure are in the | | | | PDT | | results section. | + +--------+ + + + documented in this encounter Results Airway (10/08/2019 10:03 AM PDT) + + + | Narrative | Performed At | + + + | Orlando Ambriz DO 10/08/2019 10:03 AM Anesthesia Airway | | | Placement 10/08/2019 9:46 AM Preprocedure check: patient | | | identified, oxygen, airway assessed, airway equipment checked and | | | patient reassessment prior to induction Successful technique: Mac | | | Laryngoscope blade size: 4 Attempts: 1 Airway type: endotracheal | | | Size: 8 Cuffed: cuffed Route, reference point: right side of mouth | | | Tube secured with: adhesive tape Trauma: none Tube placement | | | verification: equal bilateral breath sounds, bilateral chest rise | | | and carbon dioxide detection Performing provider: Orlando Ambriz, | | | DO Authorizing provider: Orlando Ambriz DO Please see | | | intraoperative grid for any additional medication documentation. | | + + + documented in this encounter Visit Diagnoses Not on filedocumented in this encounter Administered Medications + +---------+ +------+------+------+ | Medication Order | MAR | Action | Dose | Rate | Site | | | Action | Date | | | | + +---------+ +------+------+------+ | balanced electrolytes in water | New Bag | 10/08/19 | | | | | (PLASMALYTE-148/NORMOSOL-R) | | 20 11:55 | | | | | infusion Intravenous, CONTINUOUS | | AM PDT | | | | | PRN, Starting 10/08/19 at | | | | | | | 1041, Anesthesia Intra-op | | | | | | + +---------+ +------+------+------+ +---------+ +---+---+---+ | New | 10/08/19 | | | | | | 20 10:41 | | | | | | AM PDT | | | | +---------+ +---+---+---+ +---+---+ | | | +---+---+ + +-------+ +-----+---+---+ | ceFAZolin in dextrose (ANCEF) | Given | 10/08/19 | 2 g | | | | IVPB 2 g 2 g, Intravenous, | | 20 9:52 | | | | | Administer over 30 Minutes, Prior | | AM PDT | | | | | to Incision, Starting 10/06/19 | | | | | | | at 1542, For 1 dose, Keep in | | | | | | | refrigerator., Indications: | | | | | | | Surgical Prophylaxis | | | | | | + +-------+ +-----+---+---+ +---+---+ | | | +---+---+ + +-------+ +------+---+---+ | dexamethasone (DECADRON) 4 | Given | 10/08/19 | 4 mg | | | | mg/mL injection Intravenous, | | 20 2:08 | | | | | PRN, Starting [place] 10/08/19 at 1408, | | PM PDT | | | | | Anesthesia Intra-op | | | | | | + +-------+ +------+---+---+ +---+---+ | | | +---+---+ + +-------+ +-------+---+---+ | esmolol (BREVIBLOC) 10 mg/mL | Given | 10/08/19 | 20 mg | | | | injection Intravenous, PRN, | | 20 2:36 | | | | | Starting [place] 8/9/20 at 1436, | | PM PDT | | | | | Anesthesia Intra-op | | | | | | + +-------+ +-------+---+---+ +---+---+ | | | +---+---+ + +-------+ +-------+---+---+ | etomidate (AMIDATE) injection | Given | 10/08/19 | 16 mg | | | | Intravenous, PRN, Starting Sun | | 20 9:45 | | | | | 10/08/19 at 0945, Anesthesia | | AM PDT | | | | | Intra-op | | | | | | + +-------+ +-------+---+---+ +---+---+ | | | +---+---+ + +-------+ +--------+---+---+ | fentaNYL (PF) injection | Given | 10/08/19 | 50 mcg | | | | Intravenous, PRN, Starting Sun | | 20 10:01 | | | | | 10/08/19 at 0938, Anesthesia | | AM PDT | | | | | Intra-op | | | | | | + +-------+ +--------+---+---+ +-------+ +--------+---+---+ | Given | 10/08/19 | 50 mcg | | | | | 20 9:38 | | | | | | AM PDT | | | | +-------+ +--------+---+---+ +---+---+ | | | +---+---+ + +-------+ +--------+---+---+ | glycopyrrolate (EMERALD) | Given | 10/08/19 | 0.4 mg | | | | injection Intravenous, PRN, | | 20 2:19 | | | | | Starting 10/08/19 at 1419, | | PM PDT | | | | | Anesthesia Intra-op | | | | | | + +-------+ +--------+---+---+ +---+---+ | | | +---+---+ + +-------+ +--------+---+---+ | heparin 5,000 units/mL | Given | 10/08/19 | 1,000 | | | | injection PRN, Starting Sun | | 20 12:58 | Units | | | | 10/08/19 at 0943, Intra-op | | PM PDT | | | | + +-------+ +--------+---+---+ +-------+ +--------+---+ + | Given | 10/08/19 | 5,000 | | Surgical | | | 20 12:03 | Units | | Site | | | PM PDT | | | | +-------+ +--------+---+ + | Given | 10/08/19 | 1,000 | | | | | 20 11:54 | Units | | | | | AM PDT | | | | +-------+ +--------+---+ + +---+---+ | | | +---+---+ + +-------+ +--------+---+---+ | lidocaine (PF) 2% injection | Given | 10/08/19 | 100 mg | | | | Intravenous, PRN, Starting Sun | | 20 9:45 | | | | | 10/08/19 at 0945, Anesthesia | | AM PDT | | | | | Intra-op | | | | | | + +-------+ +--------+---+---+ +---+---+ | | | +---+---+ + +-------+ +------+---+---+ | midazolam (VERSED) 1 mg/mL | Given | 10/08/19 | 2 mg | | | | injection Intravenous, PRN, | | 20 9:38 | | | | | Starting 10/08/19 at 0938, | | AM PDT | | | | | Anesthesia Intra-op | | | | | | + +-------+ +------+---+---+ +---+---+ | | | +---+---+ + +-------+ +------+---+---+ | neostigmine (BLOXIVERZ) 1 mg/mL | Given | 10/08/19 | 2 mg | | | | injection Intravenous, PRN, | | 20 2:19 | | | | | Starting 10/08/19 at 1419, | | PM PDT | | | | | Anesthesia Intra-op | | | | | | + +-------+ +------+---+---+ +---+---+ | | | +---+---+ + +-------+ +------+---+---+ | ondansetron (ZOFRAN) injection | Given | 10/08/19 | 4 mg | | | | 4-8 mg 4-8 mg, Intravenous, | | 20 2:08 | | | | | EVERY 6 HOURS PRN, Nausea, | | PM PDT | | | | | Vomiting, Starting 10/07/19 at | | | | | | | 1815 | | | | | | + +-------+ +------+---+---+ +-------+ +------+---+---+ | Given | 10/07/19 | 4 mg | | | | | 20 8:59 | | | | | | PM PDT | | | | +-------+ +------+---+---+ +---+---+ | | | +---+---+ + +-------+ +---------+---+---+ | phenylephrine (SHEEBA-SYNEPHRINE, | Given | 10/08/19 | 100 mcg | | | | VAZCULEP) 10 mg per mL injection | | 20 11:23 | | | | | Intravenous, PRN, Starting Sun | | AM PDT | | | | | 10/08/19 at 1033, Anesthesia | | | | | | | Intra-op | | | | | | + +-------+ +---------+---+---+ +-------+ +---------+---+---+ | Given | 10/08/19 | 100 mcg | | | | | 20 10:33 | | | | | | AM PDT | | | | +-------+ +---------+---+---+ +---+---+ | | | +---+---+ + + + +---------+-------+---+ | phenylephrine (SHEEBA-SYNEPHRINE, | Rate/Dos | 10/08/19 | 40 | 0.2 | | | VAZCULEP) 10 mg/mL injection | e Change | 20 2:36 | mcg/min | mL/hr | | | Intravenous, CONTINUOUS PRN, | | PM PDT | | | | | Starting 10/08/19 at 1048, | | | | | | | Anesthesia Intra-op | | | | | | + + + +---------+-------+---+ + + +---------+-------+---+ | Rate/Dose Change | 10/08/19 | 30 | 0.2 | | | | 20 2:08 | mcg/min | mL/hr | | | | PM PDT | | | | + + +---------+-------+---+ | Rate/Dose Change | 10/08/19 | 40 | 0.2 | | | | 20 1:43 | mcg/min | mL/hr | | | | PM PDT | | | | + + +---------+-------+---+ +---+---+ | | | +---+---+ + +---------+ +---+---+---+ | Red Blood Cells | New Bag | 10/08/19 | | | | | (PRBC-INTRAOP)-Transfuse | | 20 1:53 | | | | | | | PM PDT | | | | + +---------+ +---+---+---+ +---+---+ | | | +---+---+ + +---------+ +---+---+---+ | Red Blood Cells | New Bag | 10/08/19 | | | | | (PRBC-INTRAOP)-Transfuse | | 20 1:55 | | | | | | | PM PDT | | | | + +---------+ +---+---+---+ +---+---+ | | | +---+---+ + +-------+ +-------+---+---+ | rocuronium (ZEMURON) injection | Given | 10/08/19 | 10 mg | | | | Intravenous, PRN, Starting Sun | | 20 12:57 | | | | | 10/08/19 at 0945, Anesthesia | | PM PDT | | | | | Intra-op | | | | | | + +-------+ +-------+---+---+ +-------+ +-------+---+---+ | Given | 10/08/19 | 10 mg | | | | | 20 12:11 | | | | | | PM PDT | | | | +-------+ +-------+---+---+ | Given | 10/08/19 | 10 mg | | | | | 20 11:55 | | | | | | AM PDT | | | | +-------+ +-------+---+---+ +---+---+ | | | +---+---+ + +---------+ +---+---+---+ | sodium chloride 0.9% (NS) | New Bag | 10/08/19 | | | | | infusion Intravenous, CONTINUOUS | | 20 9:38 | | | | | PRN, Starting [place] 10/08/19 at | | AM PDT | | | | | 0938, Anesthesia Intra-op | | | | | | + +---------+ +---+---+---+ +---+---+ | | | +---+---+ + +-------+ +--------+---+---+ | succinylcholine (ANECTINE) | Given | 10/08/19 | 100 mg | | | | injection Intravenous, PRN, | | 20 9:45 | | | | | Starting 10/08/19 at 0945, | | AM PDT | | | | | Anesthesia Intra-op | | | | | | + +-------+ +--------+---+---+ +---+---+ | | | +---+---+ documented in this encounter"
--- OUTSIDE RECORDS SUMMARY | ~2019-11-17 | XMS | Encounter Summary ---
Demographics + + + | Address | [address] | | | [place] [address] | + + + | Home Phone | | + + + | Preferred Language | Unknown | + + + | Marital Status | Single | + + + | Yarsanism Affiliation | [id number] | + + + | Race | White | + + + | Ethnic Group | Not or | + + + Author + + + | Author | [facility] | | | and [place] | + + + | Organization | [facility] | | | and [...] Team Providers + +------+ + | Care Automobile Accessories Installer Name | Role | Phone | + +------+ + | Teresita Bob MD | PCP | | + +------+ + Reason for Referral Diagnostic/Screening (Routine) +--------+--------+ + + + + | Status | Reason | Specialty | Diagnoses / | Referred By | Referred To | | | | | Procedures | Contact | Contact | +--------+--------+ + + + + | Closed | | Radiology | Diagnoses | Ricci De León, | | | | | | PAD | DNP [address] | | | | | | (peripheral | [address] | | | | | | artery | [place] | | | | | | disease) | [place], [place] | | | | | | ([facility]LY [facility]) | [address] | | | | | | Procedures | Phone: | | | | | | VAS Lwr Ext | [phone] | | | | | | Art Bilat w | Fax: | | | | | | DIANNE Multi | [phone] | | | | | | Lvl | | | +--------+--------+ + + + + Reason for Visit + + + | Reason | Comments | + + + | Follow-up | | + + + Evaluate & Treat (Routine) +--------+--------+ + + + + | Status | Reason | Specialty | Diagnoses / | Referred By | Referred To | | | | | Procedures | Contact | Contact | +--------+--------+ + + + + | Closed | | Vascular | Diagnoses | [facility] | [place], | | | | Surgery | | [address] | Magdiel Green MD | | | | | Pseudoaneury | [address] | [address] | | | | | sm | [place] | [address] | | | | | Peripheral | [address] | [address] [place] | | | | | Arterial | Phone: | [place] | | | | | Disease | [phone] | [address] Phone: | | | | | | Fax: | [phone] | | | | | | [phone] | Fax: | | | | | | | [phone] | +--------+--------+ + + + + Encounter Details +--------+---------+ + + + | Date | Type | Department | Care Team | Description | +--------+---------+ + + + | 10/24/ | Office | [facility] | Ricci De León, CLYDE | PAD (peripheral | | 2020 | Visit | VASCULAR SURGERY | [address] | artery disease) | | | | [address] | [place] | ([facility]) (Primary Dx); | | | | [address] [place] | [address] | S/P aortobifemoral | | | | [address] | | bypass surgery; S/P | | | | [phone] | | femoral-femoral | | | | | | bypass surgery; S/P | | | | | | vascular bypass; | | | | | | Pseudoaneurysm (HCC) | | | | | | right aorto femoral | | | | | | bypass; Current | | | | | | tobacco use | +--------+---------+ + + + Social History + +-------+ +--------+ + | Tobacco Use | Types | Packs/Day | Years | Date | | | | | Used | | + +-------+ +--------+ + | Current Every Day | | 0.5 | | Quit: 10/03/2019 | | Smoker [...] of beer | 30.0 | last drink 8/3 | + + +---------+ + + + + | Sex Assigned at | Date Recorded | | | | + + + | Not on file | | + + + documented as of this encounter Last Filed Vital Signs + +---------+ + + | Vital Sign | Reading | Time Taken | Comments | + +---------+ + + | Blood Pressure | 143/86 | 10/25/2019 9:02 AM | | | | | PDT | | + +---------+ + + | Pulse | 83 | 10/25/2019 9:02 AM | | | | | PDT | | + +---------+ + + | Temperature | - | - | | + +---------+ + + | Respiratory Rate | - | - | | + +---------+ + + | Oxygen Saturation | 97% | 10/25/2019 9:02 AM | | | | | PDT | | + +---------+ + + | Inhaled Oxygen | - | - | | | Concentration | | | | + +---------+ + + | Weight | - | - | | + +---------+ + + | Height | - | - | | + +---------+ + + | Body Mass Index | - | - | | + +---------+ + + documented in this encounter Progress Notes Ricci De León DNP - 10/25/2019 9:30 AM [facility] [address] [place] [id number] Office: [phone] DATE OF VISIT: 10/25/2019 PATIENT NAME: Jairo Theodore : 1960; AGE: 59 y.o.; Sex:M PHONE NUMBER: ; ; PROVIDER: Ricci De León DNP PRIMARY CARE / REFERRING PHYSICIAN: No ref. provider found / Lauren Bob MD / [facility] [id number] REASON FOR EVALUATION / CHIEF COMPLAINT: Vascular Surgery Postoperative Visit for PAD The patient presents today for a Vascular Surgery Postoperative Visit. The patient has hist ory of tobacco and alcohol abuse, CAD, hypertension and PAD. He has had a previous Aortobife moral bypass in 1999 with subsequent occluded left limb. He then underwent a aorto-uni endo graft (right) in 2007. He has not seen a physician for several years. He recently presente d to an OSH with a right lower extremity cellulitis. While there he was found to have a lar ge right groin pulsatile mass. 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 CTA shows an aneurysmal limb starting just distal to the end of the endograft in the pelvis. Due to thrombosed right to left fem-fem bypass and left leg critical limb is chemia, he is status post the following procedure on 10/07/2019: Right retroperitoneal exposure of right aortobifemoral limb Repair of right femoral limb of axillary bifemoral bypass with interposition dacron graft Right femoral endarterectomy with patch angioplasty Left femoral endarterectomy Right to left femoral to femoral artery bypass with 8 mm PTFE Bilateral re-do groin exposures Right groin angiogram The patient's leg symptoms have gradually improved. Pain is controlled with current analges ics. The patient denies Fever or chills. He is taking aspirin, plavix and statin daily. He recently had a left hand laceration with his his pocket knife and started on keflex about 1 day ago. He has been having left groin clear drainage for about 1 week. VITAL SIGNS: BP 143/86 | Pulse 83 | SpO2 97% PHYSICAL EXAM: Constitutional: Well nourished, no signs of distress Cardiovascular: Normal rate, regular rhythm. Pulmonary/Chest: No respiratory distress. No adventitious sounds. Abdominal: Soft. No abdominal distension or tenderness. Musculoskeletal: Normal range of motion. Extremities: No cyanosis or clubbing. Moderate swelling in left ankle and foot, mild swelli ng in right ankle. Neurological: He is alert and oriented. VASCULAR: Palpable femoral pulses were present bilaterally. Dopplerable signals were prese nt in bilateral dorsalis pedis and posterior tibial arteries. Right abdominal and bilat eral medial thigh surgical incision wounds are healing well without signs of infection. M ild erythema in bilateral groin incisions, moderate serous drainage from left groin AUGUSTUS remov al site. Assessment & Plan: Peripheral arterial disease with status post aortobifem (1999), aorto-uni (right) endograft (2007), interposition graft of right fem limb of axillary bifem, bilateral fem endarterecto my, right to left fem-fem bypass - all tasha removed. Continue oral antibiotic daily, mon itor for signs of infection. Wound care discussed with patient. Weight restriction discussed . Elevate legs when sitting. Compression wraps to left leg daily. I've explained to the yomaira ent that in the event he experiences acute limb ischemia as evidenced by severe pain or cold ness or new lower leg wounds, the patient should contact me immediately to return to my clin ic or go to nearby emergency room right away. Return to vascular clinic in 2 week(s) for fur ther follow-up with arterial duplex ultrasound for surveillance study. Hypertension - The patient is advised to maintain his antihypertensive medication to keep s ystolic blood pressure target level of 130-140 mm Hg and diastolic blood pressure level of 7 0-80 mm Hg. The patient is advised that uncontrolled hypertension can accelerate atheroscler otic disease progression. Dyslipidemia - The patient is advised to undergo lipid level evaluation with fasting blood test every 6 months with target LDL level of less than 70 mg/dL. The patient is advised to c ontinue taking antiplatelet daily for life to reduce the risk of myocardial infarction and p eripheral arterial disease ( He is currently on aspirin and plavix). Additionally, the patie nt is informed that hyperlipidemia can accelerate atherosclerotic disease progression and ne gatively affect the outcome of lower leg vascular interventions. Smoking cessation - The patient is a cigarette smoker. I advised patient to quit, and offer ed support. Ricci De León DNP documented in this encounte r Plan of Treatment +--------+ + + + + | Date | Type | Specialty | Care Team | Description | +--------+ + + + + | 02/06/ | Appointment | Radiology | Ricci De León DNP | | 2019 | | | [address] | | | | | | [place] | | | | | | [address] | | | | | | | | +--------+ + + + + | 02/06/ | Office | Vascular Surgery | Ricci De León DNP | | 2019 | Visit | | [address] | | | | | | [place], [place] | | | | | | [address] | | | | | | | | | | | | Magdiel Arteaga MD | | | | | | [address] | | | | | | [place] [address] [place] | | | | | | [place] [address] | | | | | | [phone] | | | | | | | | +--------+ + + + + documented as of this encounter Results VAS Lwr Ext Art Bilat w DIANNE Multi Lvl (11/08/2019 10:48 AM PDT) + + | Specimen | + + | | + + + + + | Impressions | Performed At | + + + | 1. No hemodynamically significant stenosis throughout. 2. 2.8 fold | [facility] | | increased at the distal anastomosis of the right aortofemoral limb, | | | probably more due to geometry of the anastomosis rather than | | | significant stenosis. 3. Otherwise velocities are within normal | | | limits throughout all grafts and outflow. 1. Triphasic ankle | | | waveforms bilaterally. 2. ABIs and TBIs are within normal limits. | | | Final Report Signed by: Jacky Jay Shawn Sign Date/Time: | | | 11/08/2019 4:01 PM | | + + + + + + | Narrative | Performed At | + + + | LOWER EXTREMITY ARTERIAL EXAM WITH IMAGING CLINICAL | [facility] | | INFORMATION: PAD COMPARISON: None PROCEDURE: Using | | | continuous wave Doppler, systolic pressure measurements were recorded | | | at the bilateral ankles and right brachial artery and indices were | | | calculated. Additionally, Color-encoded duplex ultrasound was used | | | to investigate the arteries of the bilateral lower extremities. | | | FINDINGS: Vessel, peak systolic velocity in cm/sec, waveform | | | analysis: Right to left femoral/femoral bypass graft: Right | | | inflow via right aortofemoral limb: 112 cm/sec Prox anast: 154 cm/sec | | | Prox graft: 151 cm/sec Mid graft: 103 cm/sec Distal graft: 100 | | | cm/sec Distal anast: 121 cm/sec Distal outflow: 168 cm/sec Right | | | lower extremity: SHEET PILE HAMMER OPERATOR prox: 129 cm/sec SHEET PILE HAMMER OPERATOR dist: 120 cm/sec | | | Right femoral/popliteal bypass graft: Inflow: 129 cm/sec Prox anast: | | | 149, ratio 1.2 Prox graft: 59, ratio 0.4 Mid graft: 60, ratio 1.0 | | | Dist graft: 65, ratio 1.1 Dist anast: 55, ratio 0.8 Outflow: 84, | | | ratio 1.5. Left femoral/popliteal bypass graft: Inflow: 131 | | | cm/sec Prox anast: 200, ratio 1.5 Prox graft: 67, ratio 0.3 Mid | | | graft: 73, ratio 1.1 Dist graft: 66, ratio 0.9 Dist anast: 58, ratio | | | 0.9 Outflow: 60, ratio 1.0 Right brachial systolic blood | | | pressure: 160 mmHg Left brachial systolic blood pressure: 159 mmHg | | | Right posterior tibial: 165, DIANNE 1.03 Right dorsalis pedis: 156, | | | DIANNE 0.98 Right great toe: 131, TBI 0.82 Triphasic ankle waveforms. | | | Preserved digital waveform. Left posterior tibial: 167, DIANNE 1.04 | | | Left dorsalis pedis: 162, DIANNE 1.01 Left great toe: 42, TBI 0.89 | | | Triphasic ankle waveforms. Preserved digital waveform. | | + + + + + | Procedure Note | + + | Espinoza, [id number] - 11/08/2019 4:04 PM PDT | | LOWER EXTREMITY ARTERIAL EXAM WITH IMAGING | | | | CLINICAL INFORMATION: | | PAD | | | | COMPARISON: | | None | | | | PROCEDURE: | | Using continuous wave Doppler, systolic pressure measurements were | | recorded at the bilateral ankles and right brachial artery and indices | | were calculated. Additionally, Color-encoded duplex ultrasound was | | used to investigate the arteries of the bilateral lower extremities. | | | | FINDINGS: | | Vessel, peak systolic velocity in cm/sec, waveform analysis: | | | | Right to left femoral/femoral bypass graft: | | Right inflow via right aortofemoral limb: 112 cm/sec | | Prox anast: 154 cm/sec | | Prox graft: 151 cm/sec | | Mid graft: 103 cm/sec | | Distal graft: 100 cm/sec | | Distal anast: 121 cm/sec | | Distal outflow: 168 cm/sec | | | | Right lower extremity: | | SHEET PILE HAMMER OPERATOR prox: 129 cm/sec | | SHEET PILE HAMMER OPERATOR dist: 120 cm/sec | | | | Right femoral/popliteal bypass graft: | | Inflow: 129 cm/sec | | Prox anast: 149, ratio 1.2 | | Prox graft: 59, ratio 0.4 | | Mid graft: 60, ratio 1.0 | | Dist graft: 65, ratio 1.1 | | Dist anast: 55, ratio 0.8 | | Outflow: 84, ratio 1.5. | | | | Left femoral/popliteal bypass graft: | | Inflow: 131 cm/sec | | Prox anast: 200, ratio 1.5 | | Prox graft: 67, ratio 0.3 | | Mid graft: 73, ratio 1.1 | | Dist graft: 66, ratio 0.9 | | Dist anast: 58, ratio 0.9 | | Outflow: 60, ratio 1.0 | | | | Right brachial systolic blood pressure: 160 mmHg | | Left brachial systolic blood pressure: 159 mmHg | | | | Right posterior tibial: 165, DIANNE 1.03 | | Right dorsalis pedis: 156, DIANNE 0.98 | | Right great toe: 131, TBI 0.82 | | Triphasic ankle waveforms. Preserved digital waveform. | | | | Left posterior tibial: 167, DIANNE 1.04 | | Left dorsalis pedis: 162, DIANNE 1.01 | | Left great toe: 42, TBI 0.89 | | Triphasic ankle waveforms. Preserved digital waveform. | | | | IMPRESSION: | | 1. No hemodynamically significant stenosis throughout. | | 2. 2.8 fold increased at the distal anastomosis of the right | | aortofemoral limb, probably more due to geometry of the anastomosis | | rather than significant stenosis. | | 3. Otherwise velocities are within normal limits throughout all grafts | | and outflow. | | 1. Triphasic ankle waveforms bilaterally. | | 2. ABIs and TBIs are within normal limits. | | | | | | | | Final Report Signed by: Jacky Jay Shawn | | Sign Date/Time: 11/08/2019 4:01 PM | + + + +---------+ + + | Performing | Address | City/State/Zipcode | Phone Number | | Organization | | | | + +---------+ + + | [facility] | | | | + +---------+ + + documented in this encounter Visit Diagnoses + + | Diagnosis | + + | PAD (peripheral artery disease) (HCC) - Primary Unspecified disorders of arteries and | | arterioles | + + | S/P aortobifemoral bypass surgery Other postprocedural status | + + | S/P femoral-femoral bypass surgery | + + | S/P vascular bypass | + + | Pseudoaneurysm (HCC) right aorto femoral bypass Aneurysm of unspecified site | + + | Current tobacco use Tobacco use disorder | + + documented in this encounter"
--- OUTSIDE RECORDS SUMMARY | ~2019-11-17 | XMS | Encounter Summary ---
Demographics + + + | Address | [address] | | | [place] [address] | + + + | Home Phone | | + + + | Preferred Language | Unknown | + + + | Marital Status | Single | + + + | Tenriism Affiliation | [id number] | + + + | Race | White | + + + | Ethnic Group | Not or | + + + Author + + + | Author | [facility] | | | and [place] | + + + | Organization | [facility] | | [...] Team Providers + +------+ + | Care Channel Lip Wetter Name | Role | Phone | + [...] | | | | | disease) | [place], [place] | | | | | | ([facility]) | [address] | | | | | | Procedures | Phone: | | | | | | VAS Lwr Ext | [phone] | | | | | | Art Bilat w | Fax: | | | | | | DIANNE Multi | [phone] | | | | | | Lvl | | | +--------+--------+ + + + + Evaluate & Treat (Routine) + + + + + + + | Status | Reason | Specialty | Diagnoses / | Referred By | Referred To | | | | | Procedures | Contact | Contact | + + + + + + + | Authorized | Specialty | Surgery / | Diagnoses | Sarthak, Si, | [facility] | | | Services | General | Incisional | DNP [address] | Surgery 780 | | | Required | Surgery | hernia, | [address] | [address] | | | | | without | [place] | [address] | | | | | obstruction | [place], [place] | [place], [place] | | | | | or gangrene | [address] | [address] | | | | | | Phone: | Phone: | | | | | | [phone] | [phone] | | | | | | Fax: | Fax: | | | | | | [phone] | [phone] | + + + + + + + Diagnostic/Screening (Routine) + +--------+ + + + + | Status | Reason | Specialty | Diagnoses / | Referred By | Referred To | | | | | Procedures | Contact | Contact | + +--------+ + + + + | Authorized | | | Diagnoses | Ricci De León, | [facility] | | | | | Incisional | DNP [address] | HOSPITAL | | | | | hernia, | [address] | [address] | | | | | without | [place] | [address] | | | | | obstruction | [place], [place] | [place], [place] | | | | | or gangrene | [address] | [address] | | | | | Procedures | Phone: | Phone: | | | | | CT Abdomen | [phone] | [phone] | | | | | Pelvis wo | Fax: | Fax: | | | | | Contrast | [phone] | [phone] | + +--------+ + + + + Reason for Visit + + + | Reason | Comments | + + + | Follow-up | | + + + Encounter Details +--------+---------+ + + + | Date | Type | Department | Care Team | Description | +--------+---------+ + + + | 11/07/ | Office | [facility] | Ricci De León DNP | Incisional hernia, | | 2019 | Visit | VASCULAR SURGERY | [address] | without obstruction | | | | [address] [place] | [place] [address] [place] | or gangrene (Primary | | | | [place] | [address] | Dx); PAD | | | | [address] | | (peripheral artery | | | | [phone] | | disease) (HCC); S/P | | | | | | aortobifemoral | | | | | | bypass surgery; S/P | | | | | | femoral-femoral | | | | | | bypass surgery; S/P | | | | | | vascular bypass; | | | | | | Current tobacco use | +--------+---------+ + + + [...] + + + | Blood Pressure | 145/77 | 11/08/2019 10:12 AM | | | | | PDT | | + + + + + | Pulse | 83 | 11/08/2019 10:12 AM | | | | | PDT | | + + + + + | Temperature | 36.4 C (97.5 F) | 11/08/2019 10:12 AM | | | | | PDT | | + + + + + | Respiratory Rate | - | - | | + + + + + | Oxygen Saturation | 98% | 11/08/2019 10:12 AM | | | | | PDT | | + + + + + | Inhaled Oxygen | - | - | | | Concentration | | | | + + + + + | Weight | - | - | | + + + + + | Height | - | - | | + + + + + | Body Mass Index | - | - | | + + + + + documented in this encounter Progress Notes Ricci De León DNP - 11/08/2019 10:30 AM [facility] [address] [place] [address] Office: [phone] DATE OF VISIT: 11/08/2019 PATIENT NAME: Jairo Theodore : 1960; AGE: 59 y.o.; Sex:M PHONE NUMBER: ; ; PROVIDER: Ricci De León DNP PRIMARY CARE / REFERRING PHYSICIAN: Ricci De León DNP / Lauren Bob MD / [address] / [place] [facility] [address] REASON FOR EVALUATION / CHIEF COMPLAINT: Vascular [...] The patient's leg symptoms have gradually improved. He recently was admitted to [facility] on 11/02/2019 for GI bleed and has been holding his aspirin and plavix. His groin drainage and leg swelling have resolved. He reports his abdominal lump has gotten bigger in size. He denies any pain. VITAL SIGNS: BP 145/77 | Pulse 83 | Temp 36.4 C (97.5 F) (Temporal) | SpO2 98% PHYSICAL EXAM: Constitutional: Well nourished, no signs of distress Cardiovascular: Normal rate, regular rhythm. Pulmonary/Chest: No respiratory distress. No adventitious sounds. Abdominal: 3 x 4 cm hernia in right upper quadrant abdominal incision site. Musculoskeletal: Normal range of motion. Extremities: No cyanosis or clubbing. Mild swelling in bilateral ankles. Neurological: He is alert and oriented. VASCULAR: Palpable femoral pulses were present bilaterally. Dopplerable signals were prese nt in bilateral dorsalis pedis and posterior tibial arteries. Surgical incisions are he aled. Imagin11/08/2019 US BLE ART No hemodynamically significant stenosis throughout 2.8 fold increase at distal anastomosis of right aorto-fem limb due to tortuosity Normal ABIs and TBIs bilaterally Assessment & Plan: Peripheral arterial disease with status post aortobifem (1999), aorto-uni (right) endograft (2007), interposition graft of right fem limb of axillary bifem, bilateral fem endarterecto my, right to left fem-fem bypass - ultrasound reviewed with patient. Dr. Arteaga was in to a ssess the patient's hernia, recommended CT for further evaluation, referral to general surge ry, wear abdominal binder daily. Advised the patient to restart aspirin and plavix daily and follow up with GI. I've explained to the patient that in the event he experiences acute li mb ischemia as evidenced by severe pain or coldness or new lower leg wounds, the patient janeen uld contact me immediately to return to my clinic or go to nearby emergency room right away. Return to vascular clinic in 3 months for further follow-up with arterial duplex ultrasound for surveillance [...] support. Ricci De León DNP documented in t his encounter Plan of Treatment +--------+ + + + + | Date | Type | Specialty | Care Team | Description | +--------+ + + + + | 02/06/ | Appointment | Radiology | Ricci De León DNP | | | 2019 | | | [address] | | | | | | [place] | | | | | | [address] | | | | | | | | +--------+ + + + + | 02/06/ | Office | Vascular Surgery | Ricci De León DNP | | | 2019 | Visit | | [address] | | | | | | [place] | | | | | | [address] | | | | | | | | | | | | Magdiel Arteaga MD | | | | | | [address] | | | | | | [address] [address] [facility] | | | | | | [place] [address] | | | | | | [phone] | | | | | | | | +--------+ + + + + + +---------+--------+ + + | Name | Type | Priori | Associated Diagnoses | Order Schedule | | | | ty | | | + +---------+--------+ + + | CT Abdomen Pelvis wo | Imaging | Routin | Incisional hernia, | Expected: 11/08/2019 | | Contrast | | e | without obstruction | (Approximate), | | | | | or gangrene | Expires: 11/07/2020 | + +---------+--------+ + + | VAS Lwr Ext Art | Imaging | Routin | PAD (peripheral | Expected: 02/07/2020 | | Bilat w DIANNE Multi | | e | artery disease) | (Approximate), | | Lvl | | | (HCC) | Expires: 11/07/2020 | + +---------+--------+ + + + + +--------+ + + | Name | Type | Priori | Associated Diagnoses | Order Schedule | | | | ty | | | + + +--------+ + + | Ambulatory Referral | Outpatient | Routin | Incisional hernia, | Ordered: 11/08/2019 | | to [facility]erged With [facility] | Referral | e | without obstruction | | | Surgery | | | or gangrene | | + + +--------+ + + documented as of this encounter Visit Diagnoses + + | Diagnosis | + + | Incisional hernia, without obstruction or gangrene - Primary Incisional hernia | | without mention of obstruction or gangrene | + + | PAD (peripheral artery disease) (HCC) Unspecified disorders of arteries and | | arterioles | + + | S/P aortobifemoral bypass surgery Other postprocedural status | + + | S/P femoral-femoral bypass surgery | + + | S/P vascular bypass | + + | Current tobacco use Tobacco use disorder | + + documented in this encounter"
--- OUTSIDE RECORDS SUMMARY | ~2019-11-17 | XMS | Encounter Summary ---
Demographics + + + | Address | [address] | | | [place] [address] | + + + | Home Phone | | + + + | Preferred Language | Unknown | + + + | Marital Status | Single | + + + | Mu-Ism Affiliation | BAP | + + + [...] Team Providers + +------+ + | Care Alarm Installer Name | Role | Phone | [...] [address] | | | | | | [place] [address] | | +--------+ + + + + [...] Roman Reynoso - 05/13/2007 1:34 PM PDT [id number] [place] [id number] Admission Date: 04/29/2007 Discharge Date: 05/02/2007 Staff [...] abdominal aortic pseudoaneurysm. He was transferred to [facility] via [facility] for definitive care. During [...] appointment. I also e-mailed the Vascular Surgery structural steel shop supervisor with the patient's information to call the patient to schedule appointment as well. The patient should also follow up with his primary care doctor in 1 to 2 weeks and is to call to schedule appointment. Jacky Elizabeth M.D. PDF / HS [id number] / [id number] / [id number] / Reviewed or Edited By Roman Swartz M.D. on 05-10-2007 Electronically signed by Orlando Churchill 05-13-2007 01:33:23 PM documented in this encounter Plan of Treatment Not on filedocumented as of this encounter Visit Diagnoses Not on filedocumented in this encounter"
--- OUTSIDE RECORDS SUMMARY | ~2019-11-17 | XMS | Encounter Summary ---
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 Community Agency Name: [facility] Disciplines: RN and PT - RN for wound care Equipment Durable Medical Equipment Provider: Home Equipment at Discharge: none Equipment Used at Home: cane, straight, single point Pharmacy Pharmacy/Medication needs: Pt is going to use Rx Pharmacy and will use his Medicare Part D benefits. [employer] and Pt called [facility], got him reestablished with the [facility], has not been seen since 2018 . Pt is now assigned to [facility]. [employer] p/c with Rudolph at [facility], states they will be calling Pt for follow up appt and will send referral for outpatient wound care. [employer] DE[employer]MENT p/c with Carol at [facility], states she has received [facility] orders in the p ast and will follow up with Dr. Bob's office. [employer] provided referral and faxed Home health referral. [...] Bed Mobility Supine to Sit, Level of [place]: modified independent Sit to Supine, Level of [place]: modified independent Safety Issues: decreased use of legs for bridging/pushing Transfers Sit-Stand, Level of [place]: supervised Stand-Sit, Level of [place]: supervised Hhh-Hslsz-Fhg, Assistive Device: none Gait Level of [place]: supervised Assistive Device: none Distance (feet): 40 Goals Reflects last filed data and may be from multiple contributors. All Bed Mobility Goal Most Recent Value LTG Status new at 10/09/2019 1108 LTG [place] Level modified independent at 10/09/2019 1108 LTG Assistive Device none at 10/09/2019 1108 All Transfers Goal Most Recent Value LTG Status new at 10/09/2019 1108 LTG [place] Level modified independent at 10/09/2019 1108 LTG Assistive Device 2 wheeled walker (FWW) at 10/09/2019 1108 Gait Goal Most Recent Value LTG Status new at 10/09/2019 1108 LTG [place] Level modified independent at 10/09/2019 1108 LTG Assistive Device 2 wheeled walker (FWW) at 10/09/2019 1108 LTG Distance (feet) 100 at 10/09/2019 1108 Stair Goal Most Recent Value LTG Status new at 10/09/2019 1108 LTG [place] Level modified independent at 10/09/2019 1108 LTG [...] bed rails Supine to Sit, Level of [place]: modified independent Safety Issues: decreased use of legs for bridging/pushing Impairments: ROM decreased, strength decreased Transfers Sit-Stand, Level of [place]: stand by assist, verbal cues required Stand-Sit, Level of [place]: stand by assist, verbal cues required Ocz-Rcxll-Ode, Assistive Device: 2 wheeled walker (FWW), none Toilet, Level of [place]: stand by assist, verbal cues required Toilet, Assistive Device: 2 wheeled walker (FWW), grab bars Gait Gait Comments: antalgic gait with flexed trunk posture and intermittent crouch position Level of [place]: stand by assist, verbal cues required(verbal cues [...] LTG Status new at 10/09/2019 1108 LTG [place] Level modified independent at 10/09/2019 1108 LTG Assistive Device none at 10/09/2019 1108 All Transfers Goal Most Recent Value LTG Status new at 10/09/2019 1108 LTG [place] Level modified independent at 10/09/2019 1108 LTG Assistive Device 2 wheeled walker (FWW) at 10/09/2019 1108 Gait Goal Most Recent Value LTG Status new at 10/09/2019 1108 LTG [place] Level modified independent at 10/09/2019 1108 LTG Assistive Device 2 wheeled walker (FWW) at 10/09/2019 1108 LTG Distance (feet) 100 at 10/09/2019 1108 Stair Goal Most Recent Value LTG Status new at 10/09/2019 1108 LTG [place] Level modified independent at 10/09/2019 1108 LTG Assistive Device 1 rail at 10/09/2019 1108 LTG Number of Stairs 3 at 10/09/2019 1108 PT Time Calculation Individual Start Time: 1005 Individual Stop Time: 1047 Individual Total Time: 42 PT Total Treatment Time: 42 lan of Care - Field Raghu rodriguez RN - 10/14/2019 6:42 AM PDT Problem: [...] check complete. lan of Care - Mundo Novoa PT, DP T - 10/13/2019 10:39 AM [...] Bed Mobility Supine to Sit, Level of [place]: minimal assist (75% patient effort) Transfers Sit-Stand, Level of [place]: minimal assist (75% patient effort) Gait Level of [place]: minimal assist (75% patient effort) Assistive Device: [...] LTG Status new at 10/09/2019 1108 LTG [place] Level modified independent at 10/09/2019 1108 LTG Assistive Device none at 10/09/2019 1108 All Transfers Goal Most Recent Value LTG Status new at 10/09/2019 1108 LTG [place] Level modified independent at 10/09/2019 1108 LTG Assistive Device 2 wheeled walker (FWW) at 10/09/2019 1108 Gait Goal Most Recent Value LTG Status new at 10/09/2019 1108 LTG [place] Level modified independent at 10/09/2019 1108 LTG Assistive Device 2 wheeled walker (FWW) at 10/09/2019 1108 LTG Distance (feet) 100 at 10/09/2019 1108 Stair Goal Most Recent Value LTG Status new at 10/09/2019 1108 LTG [place] Level modified independent at 10/09/2019 1108 LTG Assistive Device 1 rail at 10/09/2019 1108 LTG Number of Stairs 3 at 10/09/2019 1108 lan of Care - Archana Art RN - 10/13/2019 9:21 AM PDTPatient more pleasant and cooperative today , but refused shower, and has poor appetite. All incisions still draining copiously, needed to be changed frequently this shift d/t drai nage and stools. Bilat wound vacs removed (per [...] participation. Pt with an i ncontinent BM. 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 PT assisting with mobility and [...] Transfers Additional Documentation: toilet Sit-Stand, Level of [place]: minimal assist (75% patient effort) Stand-Sit, Level of [place]: minimal assist (75% patient effort) Zkn-Gpqkx-Cqa, Assistive Device: 2 wheeled walker (FWW) Toilet, Level of [place]: minimal assist (75% patient effort) Toilet, Assistive Device: 2 wheeled walker (FWW) Safety Issues: loses balance backward, weight-shifting ability decreased, step length decre ased, sequencing ability decreased, balance decreased during turns Impairments: ROM decreased, strength decreased, impaired balance Gait Gait Comments: reduced step length BLE, excessive trunk flexion, reduced weight bearing RLE , avoidance COG over HAN Level of [place]: minimal assist (75% patient effort) Assistive Device: 2 wheeled walker (FWW) Distance (feet): 15x2 Goals Reflects last filed data and may be from multiple contributors. All Bed Mobility Goal Most Recent Value LTG Status new at 10/09/2019 1108 LTG [place] Level modified independent at 10/09/2019 1108 LTG Assistive Device none at 10/09/2019 1108 All Transfers Goal Most Recent Value LTG Status new at 10/09/2019 1108 LTG [place] Level modified independent at 10/09/2019 1108 LTG Assistive Device 2 wheeled walker (FWW) at 10/09/2019 1108 Gait Goal Most Recent Value LTG Status new at 10/09/2019 1108 LTG [place] Level modified independent at 10/09/2019 1108 LTG Assistive Device 2 wheeled walker (FWW) at 10/09/2019 1108 LTG Distance (feet) 100 at 10/09/2019 1108 Stair Goal Most Recent Value LTG Status new at 10/09/2019 1108 LTG [place] Level modified independent at 10/09/2019 1108 LTG [...] Recommendations: 2 wheeled walker (FWW), shower chair, expansion joint finisher, sock aide, long handled sponge, long handled [...] bed rails Supine to Sit, Level of [place]: minimal assist (75% patient effort) Sit to Supine, Level of [place]: moderate assist (50% patient effort) Safety Issues: decreased use of legs for bridging/pushing, decreased use of arms for pushin g/pulling Impairments: ROM decreased, strength decreased, postural control impaired, pain Transfers Additional Documentation: sit to/from stand Sit-Stand, Level of [place]: minimal assist (75% patient effort) Stand-Sit, Level of [place]: maximal assist (25% patient effort) Nhy-Rgtnt-Qwp, Assistive Device: 2 wheeled walker (FWW), gait belt Safety Issues: loses balance backward, weight-shifting ability decreased, step length decre ased, sequencing ability decreased, balance decreased during turns Impairments: ROM decreased, strength decreased, impaired balance ROM Comments: WFL Strength Comments: WFL. B supervisor uranium processing strength 4/5. B UE MMT 4/5 except for biceps 3+/5 Balance Sitting Balance: Static: good balance Sitting Balance: Dynamic: good balance Standing Balance: Static: poor balance Standing Balance: Dynamic: poor balance Goals Reflects last filed data and may be from multiple contributors. LB Dressing Goal Most Recent Value LTG Status new at 10/10/2019 1545 LTG [place] Level minimum assist (75% patient effort), set up required at 10/10/2019 1545 LTG Adaptive Equipment expansion joint finisher, sock-aid at 10/10/2019 1545 Toilet Transfer Goal Most Recent Value LTG Status new at 10/10/2019 1545 LTG [place] Level minimum assist (75% patient effort) at [...] at bedside in ICU on turnover by student driving instructor. Patient stat es he feels better, no [...] bed rails Supine to Sit, Level of [place]: minimal assist (75% patient effort) Transfers Bed-Chair, Level of [place]: minimal assist (75% patient effort) Mmf-Shcwo-Pvk, Assistive Device: 2 wheeled walker (FWW), gait belt Sit-Stand, Level of [place]: minimal assist (75% patient effort), stand by assist Stand-Sit, Level of [place]: minimal assist (75% patient effort), stand by assist Gait Gait Comments: reduced step length BLE, excessive trunk flexion, reduced weight bearing RLE , avoidance COG over HAN Level of [place]: minimal assist (75% patient effort), verbal cues [...] LTG Status new at 10/09/2019 1108 LTG [place] Level modified independent at 10/09/2019 1108 LTG Assistive Device none at 10/09/2019 1108 All Transfers Goal Most Recent Value LTG Status new at 10/09/2019 1108 LTG [place] Level modified independent at 10/09/2019 1108 LTG Assistive Device 2 wheeled walker (FWW) at 10/09/2019 1108 Gait Goal Most Recent Value LTG Status new at 10/09/2019 1108 LTG [place] Level modified independent at 10/09/2019 1108 LTG Assistive Device 2 wheeled walker (FWW) at 10/09/2019 1108 LTG Distance (feet) 100 at 10/09/2019 1108 Stair Goal Most Recent Value LTG Status new at 10/09/2019 1108 LTG [place] Level modified independent at 10/09/2019 1108 LTG [...] Family Contact Information: Name: Lele Conley (Roommate) [email or web address] signed by PORTILLO Varner at 10/10/2019 10:13 [...] HOB elevated Supine to Sit, Level of [place]: maximal assist (25% patient effort) Safety Issues: decreased use of legs for bridging/pushing, impaired trunk control for bed m obility Impairments: pain, strength decreased, ROM decreased Transfers Additional Documentation: sit to/from stand, bed to/from chair Bed-Chair, Level of [place]: moderate assist (50% patient effort) Qwt-Bhhrb-Bsj, Assistive Device: 2 wheeled walker (FWW) Sit-Stand, Level of [place]: minimal assist (75% patient effort) Stand-Sit, Level of [place]: minimal assist (75% patient effort) Eds-Afohg-Tga, Assistive Device: 2 wheeled walker (FWW) Safety [...] LTG Status new at 10/09/2019 1108 LTG [place] Level modified independent at 10/09/2019 1108 LTG Assistive Device none at 10/09/2019 1108 All Transfers Goal Most Recent Value LTG Status new at 10/09/2019 1108 LTG [place] Level modified independent at 10/09/2019 1108 LTG Assistive Device 2 wheeled walker (FWW) at 10/09/2019 1108 Gait Goal Most Recent Value LTG Status new at 10/09/2019 1108 LTG [place] Level modified independent at 10/09/2019 1108 LTG Assistive Device 2 wheeled walker (FWW) at 10/09/2019 1108 LTG Distance (feet) 100 at 10/09/2019 1108 Stair Goal Most Recent Value LTG Status new at 10/09/2019 1108 LTG [place] Level modified independent at 10/09/2019 1108 LTG [...] 1.7 Estimated Energy Needs Energy Calorie Requirements: 9296-2194(28-32 kcal/kg per 54.3 kg admit wt ) [...] Ongoing, progressing Flowsheets (Taken 10/09/2019 1024) Participants: welfare case worker dietitian/nutrition services advanced practice nurse nursing pharmacy [...] started on clear liquid diet. lan of [facility] - Viv Santos MSW - 10/09/2019 9:44 AM PDTAttended morning rounds. Pt transferred to ICU post -op for repair of thrombosed fem-fem artery bypass. Progressing. Await PT to eval and alissa baez recommendations. Has no PCP per CM note and FS. Insurance is [place] lan of [facility] Urszula Chaudhary RN - 10/09/2019 8:02 AM PDTProblem: Adult [...] phenergan for nausea control. Pt experienced dry-heaving, horace r it did not result in pt [...] 10/08/2019 2:31 PM PDT BRIEF OPERATIVE NOTE [facility] Pt. Name/Age/: Jairo Theodore 59 y.o. 1960 Med. Record Number: [id number] Date of admission: 10/03/2019 Date of Operation/Procedure: [...] disease (HCC) [I73.9] Surgeon: Magdiel Arteaga MD Refrigeration Repair Supervisor: Maicol Abel PA-C Anesthesia Provider(s): Anesthesiologist: Orlando Ambriz DO ELECTRICAL AND INSTRUMENT TECHNICIAN: Som Garcia CRNA Anesthesia Type: Anesthesia type not filed in the log. Procedure(s): THROMBECTOMY / EMBOLECTOMY of fem fem bypass BILATERAL BYPASS GRAFT FEMORAL-POPLITEAL WITH 6 MM PTFE ANGIOGRAM - EXTREMITY BILATERAL ([id number]) Operative Findings: Thrombosed femoral to femoral artery [...] Implant Name Type Inv. Item Serial No. Customer Training Specialist Lot No. LRB No. Used Action GRAFT VAS PROPATEN 6-80MM - [id number] Graft GRAFT VAS PROPATEN 6-80MM [id number] WL G SABINA - NEPTALIGO NA N/A 1 Implanted GRAFT VAS PROPATEN 6-80MM - [id number] Graft GRAFT VAS PROPATEN 6-80MM [id number] WL G ORE - WLGO NA N/A 1 Implanted Counts: Instrument, sponge, and needle counts were correct prior to closure and at the con clusion of the case. Complications: None Disposition: The patient was taken to PACU Immediate Post-Operative Condition: Stable Electronically signed by: Magdiel Arteaga MD, 10/08/2019, 2:31 PM PDT p Note - Magdiel Arteaga MD - 10/08/2019 10 :06 AM PDT [facility] OPERATIVE REPORT PATIENT NAME: Jairo Theodore [...] the femorofemoral bypass. Using 2 CV 6 [place]-Jamie sutures the 6 mm bypass was anastomos [...] astomosis was created with 2 CV 6 [place]-Jamie sutures. Prior to completing the anastomosis the [...] an antibiotic solution. Hemostasis was achieved. 7 [place] drains were placed in both groins and [...] Magdiel Arteaga MD Vascular Surgery Dictation software, EventTool, used which may contain error for similar sounding words even af ter review. Personal communication requested for any clarification. Electronically signed by: Magdiel Arteaga MD, 10/09/2019 10:06 AM PDT [facility] lan of Care - Aggie Hayden [...] Arteaga MD - 10/07/2019 7:00 PM PDT [facility] OPERATIVE REPORT PATIENT NAME: Jairo Theodore [...] vanced a wire and placed a 7 [place] sheath. We again attempted to select out [...] femoral endarterectomy was performed w ith a [place] elevator. There was good backbleeding from the [...] common femoral endarterectomy was performed using the [place] elevator. After performing the endarterect carlyle there [...] copiously irrigated. There was good hemostasis. 7 [place]ian flat [place] drains were placed in both [...] Magdiel Arteaga MD Vascular Surgery Dictation software, EventTool, used which may contain error for similar sounding words even af ter review. Personal communication requested for any clarification. Electronically signed by: Magdiel Arteaga MD, 10/09/2019 9:28 AM [facility] rief Op Note - Magdiel Arteaga MD - 10/07/2019 4:30 PM PDTFormatting of this note might be different from the or iginal. BRIEF OPERATIVE NOTE [facility] Pt. Name/Age/: Jairo Theodore 59 y.o. 1960 Med. Record Number: [id number] Date of admission: 10/03/2019 Date of Operation/Procedure: 10/07/2019 Preoperative Diagnosis: 1. Large right groin pseudoaneurysm 2. Peripheral arterial disease Postoperative Diagnosis: * Pseudoaneurysm (HCC) [I72.9] Surgeon: Magdiel Arteaga MD Refrigeration Repair Supervisor: Maicol Abel PA-C Anesthesia Provider(s): Anesthesiologist: Rudolph Lowery MD ELECTRICAL AND INSTRUMENT TECHNICIAN: Neville Rush CRNA Anesthesia Type: General Procedure(s): [...] Implant Name Type Inv. Item Serial No. Customer Training Specialist Lot No. LRB No. Used Action GRAFT GORE PROPATEN 8WOR34LY - [id number] Graft GRAFT GORE PROPATEN [id number] WL GORE - WLGO NA Right 1 Implanted GRAFT HEMGRD KNIT [id number] - [id number] Graft GRAFT HEMGRD KNIT [id number] OLED-T SALES - MAQU [id number] Right 1 Implanted [...] VSS with one SBP in 170s recheck [id number]. Report given to preop nurse and 0600IVPB [...] Injury Risk Flowsheets (Taken 10/05/20192019 by Candace Manriquez RN) Self-Care Promotion: independence encouraged Note: Patient [...] the bathroom clear of clutter. lan of Care - Carol Olivares MSW - 10/04/2019 12:52 [...] Notes: Pt resides with his friend in [place]. Pt is independent - no caregiver, home health, oxy gen / CPAP, outpatient services, or blood thinners. Pt reports he uses a cane. Pt reports th at he drinks about a six-pack a day. Pt denies resources for ETOH, reports that he will drin k "until I ". Electronically signed: PORTILLO HERRERA 10/04/2019 12:53 PM PDT lan of Care - Juli Sims RD - 10/04/2019 11:16 AM PDTFormatting of this note might be differ ent from the original. NUTRITION NOTE Summary Triggered for screening secondary to IBW <85%. 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 Pt scheduled for pseudoaneurysm repair on 10/04. [...] BUN 7* CREA 0.60* Estimated Energy Needs 4334-4061 kcal/day (28-32 kcal/kg per 54.3 kg admit [...] AM PDT lan of Diana - Oriana Vuong, [place] - 10/04/2019 1:26 AM PDT Problem: Fall [...] | | | 2019 | | | [address] | | | | | | [place] | | | | | | [id number] | | | | | | | | +--------+ + + + + | 02/06/ | Office | Vascular Surgery | Ricci De León DNP | | | 2019 | Visit | | [address] | | | | | | [place], [place] | | | | | | [address] | | | | | | | | | | | | Magdiel Arteaga MD | | | | | | [address] | | | | | | [place] [address] | | | | | | [place] [address] | | | | | | [phone] | | | | | | | [...] Expected: | | | | e | ([facility]) right aorto | 10/23/2019, Expires: | | | | | femoral bypass | 10/15/2020 | + +---------+--------+ + + | CBC w/ Auto | Lab | Routin | Pseudoaneurysm | Expected: | | Differential | | e | ([facility]) right aorto | 10/23/2019, Expires: | | | | | femoral bypass | 10/15/2020 | + +---------+--------+ + + | Phosphorus | Lab | Routin | Pseudoaneurysm | 1 Occurrences | | | | e | ([facility]) right aorto | starting 10/16/2019 [...] Expected: | | | | e | ([facility]) right aorto | 10/23/2019, Expires: [...] | Health | Referral | e | ([facility]) right aorto | | | | | | femoral bypass | | | | | | Cellulitis of right | | | | | | foot 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 ([facility]) | | | | | [...] | POC ISTAT, CG8, | Routin | 10/08/2019 | | [...] EXTREMITY BILATERAL | | 9:22 AM | ([facility]) Peripheral | | | (65936) | | PDT | arterial disease | | | | | | ([facility]) | | + +--------+ + + + | BYPASS GRAFT | | 10/08/2019 | Pseudoaneurysm | | | FEMORAL-POPLITEAL | | 9:22 AM | ([facility]) Peripheral | | | | | PDT | arterial disease | | | | | | ([facility]) | | + +--------+ + [...] + +--------+ + + + | POC MIRNA CG8, | Routin | 10/07/2019 | | [...] + + | MAGNESIUM | Routin | 10/07/2019 [...] + + | MAGNESIUM | Routin | 10/06/2019 [...] + + | MAGNESIUM | Routin | 10/05/2019 [...] | + +--------+ + + + | ECHO COMPLETE | Routin | 10/04/2019 | | Results for this | | | e | 3:31 PM | | procedure are in the | | | | PDT | | results section. | + +--------+ + + + | VAS CAROTID DUPLEX | Routin | 10/04/2019 | | Results for this | | BILATERAL | e | 11:50 AM | | procedure are in the | | | | PDT | | results section. | + +--------+ + + + | MRSA NAAT | Routin | 10/04/2019 | | Results for this | | | e | 9:41 AM | | procedure are in the | | | | PDT | | results section. | + +--------+ + + + | PROTIME INR | Routin | 10/04/2019 | | Results for this | | | e | 6:12 AM | | procedure are in the | | | | PDT | | results section. | + +--------+ + + + | LIPID PANEL | Routin | [...] | + +--------+ + + + | URIC ACID | Add-On | 10/04/2019 | | Results for this | | | | 4:26 AM | | procedure are in the | | | | PDT | | results section. | + +--------+ + + + | COMPREHENSIVE | Routin | 10/04/2019 | | Results for this | | METABOLIC PANEL | e | 4:26 AM | | procedure are in the | | | | PDT | | results section. | + +--------+ + + + | CORONAVIRUS | Routin | 10/04/2019 | | Results for this | | (COVID-19) NAAT | e | 12:49 AM | | procedure are in the | | | | PDT | | results section. | + +--------+ + + + | ECG 12 LEAD | Routin [...] + + | COMPREHENSIVE | STAT | 10/03/2019 | | Results for this | | METABOLIC PANEL | | 10:41 PM | | procedure are in the | | | | PDT | | results section. | + +--------+ + + + documented in this encounter Results CBC [...] LABORATORY | | | | performed at [facility], [address] | | | | | [address] [facility], | | | | | | [place] [address] | | | | + + + + + + + + | Specimen | + + | Blood | + + + + + + + | Performing | Address | City/State/Zipcode | Phone Number | | Organization | | | | + + + + + | [facility] | [address] | [place] [address] | [phone] | + + + + + Magnesium (10/16/2019 5:11 AM PDT) + + + + + + | Component | Value | Ref Range | Performed | Pathologist | | | | | At | Signature | + + + + + + | Magnesium | 1.7Comment: Testing | 1.7 - 2.4 mg/dL | [facility] | | | | performed at [facility];888 | | LABORATORY | | | | [address];[place] | | | | | | [address] | | | | + + + + + + + + | Specimen | + + | Blood | + + + + + + + | Performing | Address | City/State/Zipcode | Phone Number | | Organization | | | | + + + + + | [facility] | [address] | [place] [address] | [phone] | + + + + + Potassium (10/16/2019 5:11 AM PDT) + + + + + + | Component | Value | Ref Range | Performed | Pathologist | | | | | At | Signature | + + + + + + | K | 3.0 (L)Comment: Testing | 3.5 - 4.9 | [facility] | | | | performed at [facility];888 | mmol/L | LABORATORY | | | | [address];[place] | | | | | | [address] | | | | + + + + + + + + | Specimen | + + | Blood | + + + + + + + | Performing | Address | City/State/Zipcode | Phone Number | | Organization | | | | + + + + + | [facility] | [address] | [place] [address] | [phone] | + + + + + CBC [...] LABORATORY | | | | performed at [facility], [address] | | | | | [address], | | | | | | [place] [address] | | | | + + + + + + + + | Specimen | + + | Blood | + + + + + + + | Performing | Address | City/State/Zipcode | Phone Number | | Organization | | | | + + + + + | [facility] | [address] | [place] [address] | [phone] | + + + + + Magnesium (10/15/2019 5:13 AM PDT) + + + + + + | Component | Value | Ref Range | Performed | Pathologist | | | | | At | Signature | + + + + + + | Magnesium | 1.9Comment: Testing | 1.7 - 2.4 mg/dL | [facility] | | | | performed at [facility];[address] | | LABORATORY | | | | [address];[place], [place] | | | | | | [address] | | | | + + + + + + + + | Specimen | + + | Blood | + + + + + + + | Performing | Address | City/State/Zipcode | Phone Number | | Organization | | | | + + + + + | [facility] | [address] | [place] [address] | [phone] | + + + + + Basic [...] | | | | | performed at [facility], [address] | | | | | | [facility], | | | | | | [place] [address] | | | | + + + + + + + + | Specimen | + + | Blood | + + + + + + + | Performing | Address | City/State/Zipcode | Phone Number | | Organization | | | | + + + + + | [facility] | [address] | [place] [address] | [phone] | + + + + + Potassium (10/14/2019 3:28 PM PDT) + + + + + + | Component | Value | Ref Range | Performed | Pathologist | | | | | At | Signature | + + + + + + | K | 3.3 (L)Comment: Testing | 3.5 - 4.9 | [facility] | | | | performed at [facility];888 | mmol/L | LABORATORY | | | | [address];[place] | | | | | | [address] | | | | + + + + + + + + | Specimen | + + | Blood | + + + + + + + | Performing | Address | City/State/Zipcode | Phone Number | | Organization | | | | + + + + + | [facility] | [address] | [place] [address] | [phone] | + + + + + Magnesium (10/14/2019 3:28 PM PDT) + + + + + + | Component | Value | Ref Range | Performed | Pathologist | | | | | At | Signature | + + + + + + | Magnesium | 2.1Comment: Testing | 1.7 - 2.4 mg/dL | [facility] | | | | performed at [facility];[address] | | LABORATORY | | | | [address];[place], [place] | | | | | | [address] | | | | + + + + + + + + | Specimen | + + | Blood | + + + + + + + | Performing | Address | City/State/Zipcode | Phone Number | | Organization | | | | + + + + + | [facility] | [address] | [place] [address] | [phone] | + + + + + Phosphorus (10/14/2019 3:28 PM PDT) + + + + + + | Component | Value | Ref Range | Performed | Pathologist | | | | | At | Signature | + + + + + + | Phosphorus | 1.3 (L)Comment: Testing | 2.3 - 4.8 mg/dL | [facility] | | | | performed at [facility];[address] | | LABORATORY | | | | [address];[place], [place] | | | | | | [address] | | | | + + + + + + + + | Specimen | + + | Blood | + + + + + + + | Performing | Address | City/State/Zipcode | Phone Number | | Organization | | | | + + + + + | [facility] | [address] | [place] [address] | [phone] | + + + + + CBC [...] LABORATORY | | | | performed at [facility], [address] | | | | | [address], | | | | | | [place] [address] | | | | + + + + + + + + | Specimen | + + | Blood | + + + + + + + | Performing | Address | City/State/Zipcode | Phone Number | | Organization | | | | + + + + + | [facility] | [address] | [place] [address] | [phone] | + + + + + Magnesium (10/14/2019 5:49 AM PDT) + + + + + + | Component | Value | Ref Range | Performed | Pathologist | | | | | At | Signature | + + + + + + | Magnesium | 1.6 (L)Comment: Testing | 1.7 - 2.4 mg/dL | [facility] | | | | performed at [facility];[address] | | LABORATORY | | | | [address];[place] | | | | | | [address] | | | | + + + + + + + + | Specimen | + + | Blood | + + + + + + + | Performing | Address | City/State/Zipcode | Phone Number | | Organization | | | | + + + + + | [facility] | [address] | [place] [address] | [phone] | + + + + + Basic [...] | | | | | performed at [facility], [address] | | | | | | [address], | | | | | | [place] [address] | | | | + + + + + + + + | Specimen | + + | Blood | + + + + + + + | Performing | Address | City/State/Zipcode | Phone Number | | Organization | | | | + + + + + | [facility] | [address] | [place] [address] | [phone] | + + + + + Potassium (10/13/2019 11:07 AM PDT) + + + + + + | Component | Value | Ref Range | Performed | Pathologist | | | | | At | Signature | + + + + + + | K | 3.5Comment: Testing | 3.5 - 4.9 | [facility] | | | | performed at [facility];888 | mmol/L | LABORATORY | | | | [address];[place] | | | | | | [address] | | | | + + + + + + + + | Specimen | + + | Blood | + + + + + + + | Performing | Address | City/State/Zipcode | Phone Number | | Organization | | | | + + + + + | [facility] | [address] | [place] [address] | [phone] | + + + + + Potassium (10/13/2019 4:37 AM PDT) + + + + + + | Component | Value | Ref Range | Performed | Pathologist | | | | | At | Signature | + + + + + + | K | 3.5Comment: Testing | 3.5 - 4.9 | [facility] | | | | performed at [facility];888 | mmol/L | LABORATORY | | | | [address];[place], [place] | | | | | | [address] | | | | + + + + + + + + | Specimen | + + | Blood | + + + + + + + | Performing | Address | City/State/Zipcode | Phone Number | | Organization | | | | + + + + + | [facility] | [address] | [place] [address] | [phone] | + + + + + Magnesium (10/13/2019 4:37 AM PDT) + + + + + + | Component | Value | Ref Range | Performed | Pathologist | | | | | At | Signature | + + + + + + | Magnesium | 1.7Comment: Testing | 1.7 - 2.4 mg/dL | [facility] | | | | performed at [facility];[address] | | LABORATORY | | | | [address];[place] | | | | | | [address] | | | | + + + + + + + + | Specimen | + + | Blood | + + + + + + + | Performing | Address | City/State/Zipcode | Phone Number | | Organization | | | | + + + + + | [facility] | [address] | [place] [address] | [phone] | + + + + + Basic [...] | | | | | | MDRD IDMO traceable | | | | | | equation.Testing | | | | | | performed at [facility];[address] | | | | | | [facility];[place], [place] | | | | | | [address] | | | | + + + + + + + + | Specimen | + + | Blood | + + + + + + + | Performing | Address | City/State/Zipcode | Phone Number | | Organization | | | | + + + + + | [facility] | [address] | [place] [address] | [phone] | + + + + + Hemoglobin [...] [facility] | | | | performed at [facility];[address] | | LABORATORY | | | | [address];[place], [place] | | | | | | [address] | | | | + + + + + + + + | Specimen | + + | Blood | + + + + + + + | Performing | Address | City/State/Zipcode | Phone Number | | Organization | | | | + + + + + | [facility] | [address] | [place] [address] | [phone] | + + + + + Potassium (10/12/2019 4:28 PM PDT) + + + + + + | Component | Value | Ref Range | Performed | Pathologist | | | | | At | Signature | + + + + + + | K | 3.3 (L)Comment: Testing | 3.5 - 4.9 | [facility] | | | | performed at [facility];888 | mmol/L | LABORATORY | | | | [address];[place] | | | | | | [address] | | | | + + + + + + + + | Specimen | + + | Blood | + + + + + + + | Performing | Address | City/State/Zipcode | Phone Number | | Organization | | | | + + + + + | [facility] | [address] | [place] [address] | [phone] | + + + + + Clostridium [...] at | | | | | | [facility];[address] [place] [address] | | | | | | [facility];[place] [address] | | | | + + + + + + + + | Specimen | + + | Stool - Stool | | specimen (specimen) | + + + + + + + | Performing | Address | City/State/Zipcode | Phone Number | | Organization | | | | + + + + + | [facility] | [address] | [place] [address] | [phone] | + + + + + Potassium (10/12/2019 11:02 AM PDT) + + + + + + | Component | Value | Ref Range | Performed | Pathologist | | | | | At | Signature | + + + + + + | K | 3.3 (L)Comment: Testing | 3.5 - 4.9 | [facility] | | | | performed at [facility];[address] | mmol/L | LABORATORY | | | | [address];[place] | | | | | | [address] | | | | + + + + + + + + | Specimen | + + | Blood | + + + + + + + | Performing | Address | City/State/Zipcode | Phone Number | | Organization | | | | + + + + + | [facility] | [address] | [place] [address] | [phone] | + + + + + Type [...] + + + | BB BAND | [id number] | | [facility] | | | | | | LABORATORY | | + + + + + + | UNIT # | [id number] | | [facility] | | | | [...] | | | RESULT | performed at [facility];[address] | | LABORATORY | | | | [address];[place] | | | | | | [address] | | | | + + + + + + | UNIT # | [id number] | | [facility] | | | | [...] [facility] | [address] | [place] [address] | [phone] | + + + + + Red [...] BANK | Testing performed at | | [facility] | | | COMMENT | [facility];[address] | | LABORATORY | | | | [address];[place] [address] | | | | + + + + + + + + | Specimen | + + | | + + + + + + + | Performing | Address | City/State/Zipcode | Phone Number | | Organization | | | | + + + + + | [facility] | [address] | [place] [address] | [phone] | + + + + + Magnesium (10/12/2019 4:08 AM PDT) + + + + + + | Component | Value | Ref Range | Performed | Pathologist | | | | | At | Signature | + + + + + + | Magnesium | 1.9Comment: Testing | 1.7 - 2.4 mg/dL | [facility] | | | | performed at [facility] | | LABORATORY | | | | [address];[place] | | | | | | [address] | | | | + + + + + + + + | Specimen | + + | Blood | + + + + + + + | Performing | Address | City/State/Zipcode | Phone Number | | Organization | | | | + + + + + | [facility] | [address] | [place] [address] | [phone] | + + + + + Comprehensive [...] | | | | | performed at [facility];[address] | | | | | | [address] [facility];[place], [place] | | | | | | [address] | | | | + + + + + + + + | Specimen | + + | Blood | + + + + + + + | Performing | Address | City/State/Zipcode | Phone Number | | Organization | | | | + + + + + | [facility] | [address] | [place] [address] | [phone] | + + + + + CBC [...] | [facility] | | | | NURSING [id number] H | g/dL | LABORATORY | | [...] | [facility] | | | | NURSING [id number] | | LABORATORY | | | | [...] LABORATORY | | | | performed at [facility] | | | | | | [address];[place], [place] | | | | | | [address] | | | | + + + + + + + + | Specimen | + + | Blood | + + + + + + + | Performing | Address | City/State/Zipcode | Phone Number | | Organization | | | | + + + + + | [facility] | [address] | [place] [address] | [phone] | + + + + + Urinalysis [...] - 1.030 | [facility] | | | [place], | | | LABORATORY | | | [...] LABORATORY | | | | [facility], [address] [facility] | | | | | | [place] | | | | | | [address] | | | | + + + [...] | + + + + + | [facility] | [address] | [place] [address] | [phone] | + + + + + Osmolality, Urine (10/11/2019 11:16 AM PDT) + + + + + + | Component | Value | Ref Range | Performed | Pathologist | | | | | At | Signature | + + + + + + | OSMO URINE | 239Comment: Testing | 50 - 1,200 | [facility] | | | | performed at [facility], [address] | mOsm/kg | LABORATORY | | | | [address], | | | | | | [place] [address] | | | | + + + [...] | + + + + + | [facility] | [address] | [place] [address] | [phone] | + + + + + Culture, [...] | [facility] | | | Requests | [facility] [address] | | LABORATORY | | | | Blvd;[place] [address] | | | | + + + + + + | RESULT | NO GROWTH 6 DAYS | | [facility] | | | | | | LABORATORY | | + + + + + + | RESULT | Testing performed at | | [facility] | | | | [facility], [address] | | LABORATORY | | | | [place] | | | | | | [id number]: Testing | | | | | | performed at [facility], [address] | | | | | | [address] [facility] [place], [place] | | | | | | [address] | | | | + + + + + + + + | Specimen | + + | Blood - Swab of line | | insertion site | | (specimen) | + + + + + + + | Performing | Address | City/State/Zipcode | Phone Number | | Organization | | | | + + + + + | [facility] | [address] | [place] [address] | [phone] | + + + + + XR [...] Procedure Note | + + | Espinoza, [id number] - 10/11/2019 10:42 AM PDT | | [...] | | LABORATORY | | | | Blvd;[place] [address] | | | | + + + + + + | RESULT | NO GROWTH 6 DAYS | | [facility] | | | | | | LABORATORY | | + + + + + + | RESULT | Testing performed at | | [facility] | | | | [facility], [address] | | LABORATORY | | | | [place] | | | | | | [id number]: Testing | | | | | | performed at [facility], [address] | | | | | | [address] [place] | | | | | | [address] | | | | + + + + + + + + | Specimen | + + | Blood - Peripheral | | blood specimen | | (specimen) | + + + + + + + | Performing | Address | City/State/Zipcode | Phone Number | | Organization | | | | + + + + + | [facility] | [address] | [place] [address] | [phone] | + + + + + Sodium (10/11/2019 9:30 AM PDT) + + + + + + | Component | Value | Ref Range | Performed | Pathologist | | | | | At | Signature | + + + + + + | Na | 127 (L)Comment: Testing | 135 - 145 | [facility] | | | | performed at [facility];[address] | mmol/L | LABORATORY | | | | [address];[place] | | | | | | [address] | | | | + + + + + + + + | Specimen | + + | Blood | + + + + + + + | Performing | Address | City/State/Zipcode | Phone Number | | Organization | | | | + + + + + | [facility] | [address] | [place] [address] | [phone] | + + + + + Osmolality, Serum (10/11/2019 9:30 AM PDT) + + + + + + | Component | Value | Ref Range | Performed | Pathologist | | | | | At | Signature | + + + + + + | Osmolality, | 262 (L)Comment: Testing | 280 - 301 | [facility] | | | Serum | performed at [facility], [address] | mOsm/kg | LABORATORY | | | | [address] [place], | | | | | | [place] [address] | | | | + + + + + + + + | Specimen | + + | Blood | + + + + + + + | Performing | Address | City/State/Zipcode | Phone Number | | Organization | | | | + + + + + | [facility] | [address] | [place] [address] | [phone] | + + + + + Comprehensive [...] | | | | | performed at [facility];[address] | | | | | | [facility];[place], [place] | | | | | | [address] | | | | + + + + + + + + | Specimen | + + | Blood | + + + + + + + | Performing | Address | City/State/Zipcode | Phone Number | | Organization | | | | + + + + + | [facility] | [address] | [place] [address] | [phone] | + + + + + CBC [...] | 10.1Comment: NO NORMAL | fl | [facility] | | | | RANGE ESTABLISHEDTesting | | LABORATORY | | | | performed at [facility];[address] | | | | | | [address];[place] | | | | | | [address] | | | | + + + + + + + + | Specimen | + + | Blood | + + + + + + + | Performing | Address | City/State/Zipcode | Phone Number | | Organization | | | | + + + + + | [facility] | [address] | [place] [address] | [phone] | + + + + + Comprehensive [...] | | | | | performed at [facility];[address] | | | | | | [address];[place] | | | | | | [address] | | | | + + + + + + + + | Specimen | + + | Blood | + + + + + + + | Performing | Address | City/State/Zipcode | Phone Number | | Organization | | | | + + + + + | [facility] | [address] | [place] [address] | [phone] | + + + + + Magnesium (10/10/2019 4:16 AM PDT) + + + + + + | Component | Value | Ref Range | Performed | Pathologist | | | | | At | Signature | + + + + + + | Magnesium | 1.8Comment: Testing | 1.7 - 2.4 mg/dL | [facility] | | | | performed at [facility];[address] | | LABORATORY | | | | [address];[place] | | | | | | [address] | | | | + + + + + + + + | Specimen | + + | Blood | + + + + + + + | Performing | Address | City/State/Zipcode | Phone Number | | Organization | | | | + + + + + | [facility] | [address] | [place] [address] | [phone] | + + + + + CBC [...] 0.05Comment: Testing | 0.00 - 0.10 | [facility] | | | Absolute | performed at [facility];[address] | K/uL | LABORATORY | | | | [address];[place], [place] | | | | | | [address] | | | | + + + + + + + + | Specimen | + + | Blood | + + + + + + + | Performing | Address | City/State/Zipcode | Phone Number | | Organization | | | | + + + + + | [facility] | [address] | [place] [address] | [phone] | + + + + + Lactic Acid (10/09/2019 5:12 AM PDT) + + + + + + | Component | Value | Ref Range | Performed | Pathologist | | | | | At | Signature | + + + + + + | Lactate, | 1.8Comment: Testing | 0.4 - 2.0 | [facility] | | | Serum | performed at [facility];[address] | mmol/L | LABORATORY | | | | [address];[place], [place] | | | | | | [address] | | | | + + + + + + + + | Specimen | + + | Blood | + + + + + + + | Performing | Address | City/State/Zipcode | Phone Number | | Organization | | | | + + + + + | [facility] | [address] | [place] [address] | [phone] | + + + + + Comprehensive [...] | >60Comment: GFR <60: | >60 | [facility] | | | GFR | CHRONIC KIDNEY [...] | | | | | | MDRD [facility] traceable | | | | | | equation.Testing | | | | | | performed at [facility];[address] | | | | | | [facility];[place], [place] | | | | | | [address] | | | | + + + + + + + + | Specimen | + + | Blood | + + + + + + + | Performing | Address | City/State/Zipcode | Phone Number | | Organization | | | | + + + + + | [facility] | [address] [facility] | [place] [address] | [phone] | + + + + + Procalcitonin [...] | | | | | | at [facility];[address] [place] [address] | | | | | | [facility];[place] [address] | | | | + + + + + + + + | Specimen | + + | Blood | + + + + + + + | Performing | Address | City/State/Zipcode | Phone Number | | Organization | | | | + + + + + | [facility] | [address] | [place] [address] | [phone] | + + + + + Phosphorus (10/09/2019 5:10 AM PDT) + + + + + + | Component | Value | Ref Range | Performed | Pathologist | | | | | At | Signature | + + + + + + | Phosphorus | 4.0Comment: Testing | 2.3 - 4.8 mg/dL | [facility] | | | | performed at [facility];[address] | | LABORATORY | | | | [address];[place] | | | | | | [address] | | | | + + + + + + + + | Specimen | + + | Blood | + + + + + + + | Performing | Address | City/State/Zipcode | Phone Number | | Organization | | | | + + + + + | [facility] | [address] | [place] [address] | [phone] | + + + + + Magnesium (10/09/2019 5:10 AM PDT) + + + + + + | Component | Value | Ref Range | Performed | Pathologist | | | | | At | Signature | + + + + + + | Magnesium | 1.7Comment: Testing | 1.7 - 2.4 mg/dL | [facility] | | | | performed at [facility];[address] | | LABORATORY | | | | [address];[place] | | | | | | [address] | | | | + + + + + + + + | Specimen | + + | Blood | + + + + + + + | Performing | Address | City/State/Zipcode | Phone Number | | Organization | | | | + + + + + | [facility] | [address] | [place] [address] | [phone] | + + + + + CBC [...] | | | | | performed at [facility];[address] | | | | | | [facility] | | | | | | [address] | | | | + + + + + + + + | Specimen | + + | Blood | + + + + + + + | Performing | Address | City/State/Zipcode | Phone Number | | Organization | | | | + + + + + | [facility] | [address] | [place] [address] | [phone] | + + + + + POC [...] | | | POC | performed at [facility];[address] | | LABORATORY | | | | [address];[place], [place] | | | | | | [address] | | | | + + + + + + + + | Specimen | + + | | + + + + + + + | Performing | Address | City/State/Zipcode | Phone Number | | Organization | | | | + + + + + | [facility] | [address] | [place] [address] | [phone] | + + + + + Phosphorus (10/08/2019 5:23 PM PDT) + + + + + + | Component | Value | Ref Range | Performed | Pathologist | | | | | At | Signature | + + + + + + | Phosphorus | 3.4Comment: Testing | 2.3 - 4.8 mg/dL | KR | | | | performed at [facility];[address] | | LABORATORY | | | | [address];[place], [place] | | | | | | [address] | | | | + + + + + + + + | Specimen | + + | Blood | + + + + + + + | Performing | Address | City/State/Zipcode | Phone Number | | Organization | | | | + + + + + | [facility] | [address] [facility] | [place] [address] | [phone] | + + + + + Magnesium (10/08/2019 5:23 PM PDT) + + + + + + | Component | Value | Ref Range | Performed | Pathologist | | | | | At | Signature | + + + + + + | Magnesium | 1.8Comment: Testing | 1.7 - 2.4 mg/dL | KT | | | | performed at [facility];[address] | | LABORATORY | | | | [address];[place] | | | | | | [address] | | | | + + + + + + + + | Specimen | + + | Blood | + + + + + + + | Performing | Address | City/State/Zipcode | Phone Number | | Organization | | | | + + + + + | [facility] | [address] | [place] [address] | [phone] | + + + + + CBC [...] at | | | | | | [facility];[address];[place] [address] | | | | + + + + + + + + | Specimen | + + | Blood | + + + + + + + | Performing | Address | City/State/Zipcode | Phone Number | | Organization | | | | + + + + + | [facility] | [address] | [place] [address] | [phone] | + + + + + Basic [...] 6.3 (L) | 8.5 - 10.5 | KR | | | | | mg/dL | [...] | | | | | performed at [facility];88 | | | | | | [facility];[place], [place] | | | | | | [address] | | | | + + + + + + + + | Specimen | + + | Blood | + + + + + + + | Performing | Address | City/State/Zipcode | Phone Number | | Organization | | | | + + + + + | [facility] | [address] | [place] [address] | [phone] | + + + + + PTT (10/08/2019 5:23 PM PDT) + + + + + + | Component | Value | Ref Range | Performed | Pathologist | | | | | At | Signature | + + + + + + | PTT | 32Comment: Testing | 23 - 32 seconds | KT | | | | performed at [facility];[address] | | LABORATORY | | | | [address];[place], [place] | | | | | | [address] | | | | + + + + + + + + | Specimen | + + | Blood | + + + + + + + | Performing | Address | City/State/Zipcode | Phone Number | | Organization | | | | + + + + + | [facility] | [address] | [place] [address] | [phone] | + + + + + POC [...] | | | POC | performed at [facility];888 | g/dL | LABORATORY | | | | [address];[place], [place] | | | | | | [address] | | | | + + + + + + + + | Specimen | + + | | + + + + + + + | Performing | Address | City/State/Zipcode | Phone Number | | Organization | | | | + + + + + | [facility] | [address] | [place] [address] | [phone] | + + + + + POC ISTAT, CG8, Arterial (10/08/2019 1:22 PM PDT) + + + + + + | Component | Value | Ref Range | Performed | Pathologist | | | | | At | Signature | + + + + + + | pH, | 7.334 (L) | 7.350 - 7.450 | [facility] | | | Arterial, | | [...] | | | POC | performed at [facility];888 | g/dL | LABORATORY | | | | [address];[place] | | | | | | [address] | | | | + + + + + + + + | Specimen | + + | | + + + + + + + | Performing | Address | City/State/Zipcode | Phone Number | | Organization | | | | + + + + + | [facility] | [address] | [place] [address] | [phone] | + + + + + Basic [...] 7.2 (L) | 8.5 - 10.5 | [facility] | | | | | mg/dL | LABORATORY | | + + + + + + | Estimated | >60Comment: GFR <60: | >60 | [facility] | | | GFR | CHRONIC KIDNEY [...] | | | | | performed at [facility], [address] | | | | | | [facility], | | | | | | [place] [address] | | | | + + + + + + + + | Specimen | + + | Blood | + + + + + + + | Performing | Address | City/State/Zipcode | Phone Number | | Organization | | | | + + + + + | [facility] | [address] | [place] [address] | [phone] | + + + + + CBC [...] | | | Absolute | performed at [facility], [address] | K/uL | LABORATORY | | | | [address], | | | | | | [place] [address] | | | | + + + + + + + + | Specimen | + + | Blood | + + + + + + + | Performing | Address | City/State/Zipcode | Phone Number | | Organization | | | | + + + + + | [facility] | [address] | [place] [address] | [phone] | + + + + + Magnesium (10/08/2019 5:44 AM PDT) + + + + + + | Component | Value | Ref Range | Performed | Pathologist | | | | | At | Signature | + + + + + + | Magnesium | 1.6 (L)Comment: Testing | 1.7 - 2.4 mg/dL | [facility] | | | | performed at [facility];[address] | | LABORATORY | | | | [address];[place] | | | | | | [address] | | | | + + + + + + + + | Specimen | + + | Blood | + + + + + + + | Performing | Address | City/State/Zipcode | Phone Number | | Organization | | | | + + + + + | [facility] | [address] | [place] [address] | [phone] | + + + + + PTT (10/07/2019 5:21 PM PDT) + + + + + + | Component | Value | Ref Range | Performed | Pathologist | | | | | At | Signature | + + + + + + | PTT | 28Comment: Testing | 23 - 32 seconds | KT | | | | performed at [facility];[address] | | LABORATORY | | | | [address];[place] | | | | | | [address] | | | | + + + + + + + + | Specimen | + + | Blood - Artery, | | Radial, Right | + + + + + + + | Performing | Address | City/State/Zipcode | Phone Number | | Organization | | | | + + + + + | [facility] | [address] | [place] [address] | [phone] | + + + + + Protime [...] | | | | | performed at [facility] | | | | | | [facility];[place], [place] | | | | | | [address] | | | | + + + + + + + + | Specimen | + + | Blood - Artery, | | Radial, Right | + + + + + + + | Performing | Address | City/State/Zipcode | Phone Number | | Organization | | | | + + + + + | [facility] | [address] | [place] [address] | [phone] | + + + + + Basic [...] 7.0 (L) | 8.5 - 10.5 | [facility] | | | | | mg/dL | [...] | | | | | performed at [facility];[address] | | | | | | [facility];[place], [place] | | | | | | [address] | | | | + + + + + + + + | Specimen | + + | Blood - Artery, | | Radial, Right | + + + + + + + | Performing | Address | City/State/Zipcode | Phone Number | | Organization | | | | + + + + + | [facility] | [address] | [place] [address] | [phone] | + + + + + CBC [...] | 10.6Comment: NO NORMAL | fl | [facility] | | | | RANGE ESTABLISHEDTesting | | LABORATORY | | | | performed at [facility];[address] | | | | | | [address];[place] | | | | | | [address] | | | | + + + + + + + + | Specimen | + + | Blood - Right upper | | arm structure (body | | structure) | + + + + + + + | Performing | Address | City/State/Zipcode | Phone Number | | Organization | | | | + + + + + | [facility] | [address] | [place] [address] | [phone] | + + + + + Surgical [...] | including foreign body giant cell reaction. AMB:[facility]:C2NR MICROSCOPIC | | | EXAMINATION:Histologic sections [...] attached red-white | | | fibromembranous tissue. Pharmacist In Charge sections are submitted in | | | onecassette (A1).COLTEN (under the direct supervision of a pathologist) [...] | LABORATORY:The technical component was performed by [facility] | | | [facility], [address] [place] [address] (Group Insurance Special Agent: | | | Asia Rodriguez MD; CLIA# [id number]).Professional interpretation was | | | performed [facility], [address] | | | [place] [address] (Group Insurance Special Agent: Solitario | | | Jakcy Recio; CLIA#: [id number]). Diagnostician: Asia Rodriguez | | | MDPathologistElectronically Signed 10/10/2019 | | | | | |PERFORMING LABORATORY: | | |The technical component was performed by [facility], [address] [place] [address] (Group Insurance Special Agent: Asia Rodriguez MD; CLIA# [id number]). | | |[facility], [address] [place] [address] (Group Insurance Special Agent: Solitario Recio M.D.; CLIA#: [id number]). | | | | | |Diagnostician: Asia [...] | | | POC | performed at [facility];888 | g/dL | LABORATORY | | | | [address];[place] | | | | | | [address] | | | | + + + + + + + + | Specimen | + + | | + + + + + + + | Performing | Address | City/State/Zipcode | Phone Number | | Organization | | | | + + + + + | [facility] | [address] | [place] [address] | [phone] | + + + + + Red [...] | [facility] | | | COMMENT | [facility];[address] | | LABORATORY | | | | [address];[place] [address] | | | | + + + + + + + + | Specimen | + + | | + + + + + + + | Performing | Address | City/State/Zipcode | Phone Number | | Organization | | | | + + + + + | [facility] | [address] | [place] [address] | [phone] | + + + + + POC MIRNA CG8, Arterial (10/07/2019 12:37 PM PDT) + [...] | | | POC | performed at [facility];888 | g/dL | LABORATORY | | | | [address];[place], [place] | | | | | | [address] | | | | + + + + + + + + | Specimen | + + | | + + + + + + + | Performing | Address | City/State/Zipcode | Phone Number | | Organization | | | | + + + + + | [facility] | [address] | [place] [address] | [phone] | + + + + + POC ISLILLIE, CG8, Arterial (10/07/2019 10:47 AM PDT) + [...] | | | POC | performed at [facility];888 | g/dL | LABORATORY | | | | [address];[place] | | | | | | [address] | | | | + + + + + + + + | Specimen | + + | | + + + + + + + | Performing | Address | City/State/Zipcode | Phone Number | | Organization | | | | + + + + + | [facility] | [address] | [place] [address] | [phone] | + + + + + POC [...] | | | POC | performed at [facility];888 | g/dL | LABORATORY | | | | [address];[place], [place] | | | | | | [address] | | | | + + + + + + + + | Specimen | + + | | + + + + + + + | Performing | Address | City/State/Zipcode | Phone Number | | Organization | | | | + + + + + | [facility] | [address] | [place] [address] | [phone] | + + + + + Red [...] | [facility] | | | COMMENT | [facility];[address] | | LABORATORY | | | | [address];[place] [address] | | | | + + + + + + + + | Specimen | + + | | + + + + + + + | Performing | Address | City/State/Zipcode | Phone Number | | Organization | | | | + + + + + | [facility] | [address] | [place] [address] | [phone] | + + + + + Magnesium (10/07/2019 3:55 AM PDT) + + + + + + | Component | Value | Ref Range | Performed | Pathologist | | | | | At | Signature | + + + + + + | Magnesium | 1.6 (L)Comment: Testing | 1.7 - 2.4 mg/dL | [facility] | | | | performed at [facility];[address] | | LABORATORY | | | | [address];[place] | | | | | | [address] | | | | + + + + + + + + | Specimen | + + | Blood | + + + + + + + | Performing | Address | City/State/Zipcode | Phone Number | | Organization | | | | + + + + + | [facility] | [address] | [place] [address] | [phone] | + + + + + Type [...] + + + | BB BAND | HEALTH AND SAFETY REPRESENTATIVE 0630 | | [facility] | | | | | | LABORATORY | | + + + + + + | UNIT # | [id number] | | [facility] | | | | [...] + + + | UNIT # | [id number] | | [facility] | | | | [...] + + + | UNIT # | [id number] | | [facility] | | | | [...] + + + | UNIT # | [id number] | | [facility] | | | | [...] | | | RESULT | performed at [facility];[address] | | LABORATORY | | | | [address];[place] | | | | | | [address] | | | | + + + + + + + + | Specimen | + + | Blood | + + + + + + + | Performing | Address | City/State/Zipcode | Phone Number | | Organization | | | | + + + + + | [facility] | [address] | [place] [address] | [phone] | + + + + + Basic [...] | >60Comment: GFR <60: | >60 | [facility] | | | GFR | CHRONIC KIDNEY [...] | | | | | | MDRD IDMO traceable | | | | | | equation.Testing | | | | | | performed at [facility] | | | | | | [facility];[place], [place] | | | | | | [address] | | | | + + + + + + + + | Specimen | + + | Blood | + + + + + + + | Performing | Address | City/State/Zipcode | Phone Number | | Organization | | | | + + + + + | [facility] | [address] | [place] [address] | [phone] | + + + + + CBC [...] | | | Absolute | performed at [facility];[address] | K/uL | LABORATORY | | | | [address];[place], [place] | | | | | | [address] | | | | + + + + + + + + | Specimen | + + | Blood | + + + + + + + | Performing | Address | City/State/Zipcode | Phone Number | | Organization | | | | + + + + + | [facility] | [address] | [place] [address] | [phone] | + + + + + Magnesium (10/06/2019 6:27 AM PDT) + + + + + + | Component | Value | Ref Range | Performed | Pathologist | | | | | At | Signature | + + + + + + | Magnesium | 1.6 (L)Comment: Testing | 1.7 - 2.4 mg/dL | [facility] | | | | performed at [facility];[address] | | LABORATORY | | | | [address];[place], [place] | | | | | | [address] | | | | + + + + + + + + | Specimen | + + | Blood | + + + + + + + | Performing | Address | City/State/Zipcode | Phone Number | | Organization | | | | + + + + + | [facility] | [address] | [place] [address] | [phone] | + + + + + Basic [...] | | | | | performed at [facility], [address] | | | | | | [facility], | | | | | | [place] [address] | | | | + + + + + + + + | Specimen | + + | Blood | + + + + + + + | Performing | Address | City/State/Zipcode | Phone Number | | Organization | | | | + + + + + | [facility] | [address] | [place] [address] | [phone] | + + + + + CBC [...] | | | Absolute | performed at [facility], [address] | K/uL | LABORATORY | | | | [address], | | | | | | [place] [address] | | | | + + + + + + + + | Specimen | + + | Blood | + + + + + + + | Performing | Address | City/State/Zipcode | Phone Number | | Organization | | | | + + + + + | [facility] | [address] | [place] [address] | [phone] | + + + + + Magnesium (10/05/2019 5:02 AM PDT) + + + + + + | Component | Value | Ref Range | Performed | Pathologist | | | | | At | Signature | + + + + + + | Magnesium | 1.7Comment: Testing | 1.7 - 2.4 mg/dL | [facility] | | | | performed at [facility];[address] | | LABORATORY | | | | [address];[place] | | | | | | [address] | | | | + + + + + + + + | Specimen | + + | Blood | + + + + + + + | Performing | Address | City/State/Zipcode | Phone Number | | Organization | | | | + + + + + | [facility] | [address] | [place] [address] | [phone] | + + + + + Basic [...] | | | | | performed at [facility], [address] | | | | | | [facility], | | | | | | [place] [address] | | | | + + + + + + + + | Specimen | + + | Blood | + + + + + + + | Performing | Address | City/State/Zipcode | Phone Number | | Organization | | | | + + + + + | [facility] | [address] | [place] [address] | [phone] | + + + + + CBC [...] | | | | | [place] [address] | | | | + + + + + + + + | Specimen | + + | Blood | + + + + + + + | Performing | Address | City/State/Zipcode | Phone Number | | Organization | | | | + + + + + | [facility] | [address] | [place] [address] | [phone] | + + + + + ECHO [...] | Procedure Note | + + | [facility], 540226 - 10/04/2019 12:10 PM PDT | | [...] [facility] | | | | performed at [facility];[address] | | LABORATORY | | | | [address];[place] | | | | | | [address] | | | | + + + + + + + + | Specimen | + + | Tissue - Both | | anterior nares (body | | structure) | + + + + + + + | Performing | Address | City/State/Zipcode | Phone Number | | Organization | | | | + + + + + | [facility] | [address] | [place] [address] | [phone] | + + + + + Zeinabime [...] | | | | | performed at [facility] | | | | | | [facility];[place], [place] | | | | | | [address] | | | | + + + + + + + + | Specimen | + + | Blood | + + + + + + + | Performing | Address | City/State/Zipcode | Phone Number | | Organization | | | | + + + + + | [facility] | [address] | [place] [address] | [phone] | + + + + + Uric Acid (10/04/2019 4:26 AM PDT) + + + + + + | Component | Value | Ref Range | Performed | Pathologist | | | | | At | Signature | + + + + + + | Uric Acid | 3.2Comment: Testing | 3.2 - 8.6 mg/dL | [facility] | | | | performed at [facility], [address] | | LABORATORY | | | | [address], | | | | | | [place] [address] | | | | + + + + + + + + | Specimen | + + | Blood | + + + + + + + | Performing | Address | City/State/Zipcode | Phone Number | | Organization | | | | + + + + + | [facility] | [address] | [place] [address] | [phone] | + + + + + Lipid [...] | | | Calculated | performed at [facility], [address] | | LABORATORY | | | | [address], | | | | | | [place] [address] | | | | + + + + + + + + | Specimen | + + | Blood | + + + + + + + | Performing | Address | City/State/Zipcode | Phone Number | | Organization | | | | + + + + + | [facility] | [address] | [place] [address] | [phone] | + + + + + Comprehensive [...] | | | | | performed at [facility], [address] | | | | | | [facility], | | | | | | [place] [address] | | | | + + + + + + + + | Specimen | + + | Blood | + + + + + + + | Performing | Address | City/State/Zipcode | Phone Number | | Organization | | | | + + + + + | [facility] | [address] | [place] [address] | [phone] | + + + + + CBC [...] | | | Absolute | performed at [facility], [address] | K/uL | LABORATORY | | | | [address], | | | | | | [place] [address] | | | | + + + + + + + + | Specimen | + + | Blood | + + + + + + + | Performing | Address | City/State/Zipcode | Phone Number | | Organization | | | | + + + + + | [facility] | [address] | [place] [address] | [phone] | + + + + + Coronavirus (COVID-19) NAAT (10/04/2019 12:49 AM PDT) + + + + + + | Component | Value | Ref Range | Performed | Pathologist | | | | | At | Signature | + + + + + + | SARS-CoV-2, | NEGATIVEComment: This | NEG | [facility] | | | NAAT | test was developed and | | LABORATORY | | | (COVID-19) | its performance | | | | | | characteristics | | | | | | determined byCepid. It | | | | | | [...] | | | | | performed at [facility];[address] | | | | | | [address];[place], [place] | | | | | | [address] | | | | + + + + + + + + | Specimen | + + | Tissue - Entire | | nasopharynx (body | | structure) | + + + + + + + | Performing | Address | City/State/Zipcode | Phone Number | | Organization | | | | + + + + + | [facility] | [address] | [place] [address] | [phone] | + + + + + ECG [...] | | | | XIANG HART MD ([id number]) | | | | | | on [...] | | [facility] | | | | [facility];[address] | | LABORATORY | | | | [address];[place] [address] | | | | + + + + + + + + | Specimen | + + | Blood | + + + + + + + | Performing | Address | City/State/Zipcode | Phone Number | | Organization | | | | + + + + + | [facility] | [address] | [place] [address] | [phone] | + + + + + Comprehensive [...] | >60Comment: GFR <60: | >60 | [facility] | | | GFR | CHRONIC KIDNEY [...] | | | | | performed at [facility] | | | | | | [facility];[place], [place] | | | | | | [address] | | | | + + + + + + + + | Specimen | + + | Blood | + + + + + + + | Performing | Address | City/State/Zipcode | Phone Number | | Organization | | | | + + + + + | [facility] | [address] | [place] [address] | [phone] | + + + + + CBC [...] 0.06Comment: Testing | 0.00 - 0.10 | [facility] | | | Absolute | performed at [facility];[address] | K/uL | LABORATORY | | | | [address];[place], [place] | | | | | | [address] | | | | + + + + + + + + | Specimen | + + | Blood | + + + + + + + | Performing | Address | City/State/Zipcode | Phone Number | | Organization | | | | + + + + + | [facility] | [address] | [place] [address] | [phone] | + + + + + documented in this encounter Visit Diagnoses + + | Diagnosis | + + | Pseudoaneurysm (HCC) Aneurysm of unspecified site | + + | Peripheral arterial [...] | | | C (101.5 F), Starting Tu10/03/19 | | | | | | | [...] | | | | | | Starting [facility] 10/12/19 at 1744 | | | | [...] PRN, Hemorrhoidal | | | Pain, Starting [facility] 10/05/19 at 1227 | | + +---+ | | | + +---+ + +-------+ +--------+---+---+ | iohexol (OMNIPAQUE 240) 240 | Given | 10/08/19 | 90 mLs | | | | mg/mL injection PRN, Starting | | 20 2:04 | | | | | 10/08/19 at 1404, Intra-op | | PM PDT | | [...] 8:48 | | | | | Starting 10/03/19 at 2230 | | PM PDT | [...] | | | | | dose on 10/10/19 at 1400 | | AM PDT | [...] +--------+---+---+ | thrombin (recombinant) | Given | 10/08/19 | 5,000 | | | | (RECOTHROM) solution PRN, | | 20 9:44 | Units | | | | Starting 10/08/19 at 0944, | | AM PDT | | | [...]
--- OUTSIDE RECORDS SUMMARY | ~2019-11-17 | XMS | Encounter Summary ---
Demographics + + + | Address | [address] | | | [place] [address] | + + + | Home Phone [...] Author + + + | Author | [facility] | + + + | Organization | [facility] | + + + | Address | Unknown | + + + | Phone | Unavailable | + + + Support + + +---------+ + | Name | Relationship | Address | Phone | + + +---------+ + | Lele Conley | ECON | Unknown | | + + +---------+ + Care Team Providers + +------+ + | Care Tonsorial Artist Name | Role | Phone | + [...] [address] | | | | | [place] | | | | | [address] | [address] | | | | | [phone] | [phone] | | | | | | | [...] DEPARTMENT OF | [address] | [place] [address] | | | PATHOLOGY | [address] | | | + + + + + | [facility] DEPARTMENT OF | [address] | [place] [address] | | | PATHOLOGY | [address] [...] DEPARTMENT OF | [address] | [place] [address] | | | PATHOLOGY | [address] | | | + + + + + | [facility] DEPARTMENT OF | [address] | [place] [address] | | | PATHOLOGY | [address] [...] + | [facility] DEPARTMENT OF | [address] [facility] | [place] [address] | | | PATHOLOGY | [address] | | | + + + + + | [facility] DEPARTMENT OF | [address] [facility] | [place] [address] | | | PATHOLOGY | [address] [...] | + + + + + | [facility] DEPARTMENT OF | [address] | [place] [address] | | | PATHOLOGY | [address] | | | + + + + + | [facility] DEPARTMENT OF | [address] | [place] [address] | | | PATHOLOGY | [address] [...] | + + + + + | [facility] | [address] | [place] [address] | | | PATHOLOGY | [address] | | | + + + + + | [facility] | [facility] [address] | [place] [address] | | | PATHOLOGY | [address] [...] | + + + + + | [facility] DEPARTMENT OF | [address] | [place] [address] | | | PATHOLOGY | [address] | | | + + + + + | [facility] DEPARTMENT OF | [address] | [place] [address] | | | PATHOLOGY | [address] | | | + + + + + PHOSPHORUS, PLASMA (05/01/2007 2:10 AM PST) + +-------+ + + + | Component | Value | Ref Range | Performed | Pathologist | | | | | At | Signature | + +-------+ + + + | PHOSPHORUS, | 3.0 | 2.4 - 4.7 mg/dL | [facility] | | | PLASMA | | | [...] | + + + + + | [facility] DEPARTMENT | [address] [facility] | [place] [address] | | | PATHOLOGY | [address] | | | + + + + + | [facility] | [address] [place] [address] | [place] [address] | | | PATHOLOGY | [address] [...] | + + + + + | [facility] DEPARTMENT OF | [address] | [place] [address] | | | PATHOLOGY | [address] | | | + + + + + | [facility] DEPARTMENT OF | [address] | [place] [address] | | | PATHOLOGY | [address] [...] | + + + + + | [facility] DEPARTMENT OF | [address] | [place] [address] | | | PATHOLOGY | [address] | | | + + + + + | [facility] DEPARTMENT OF | [address] | [place] [address] | | | PATHOLOGY | [address] [...] | + + + + + | [facility] DEPARTMENT OF | [address] | [place] [address] | | | PATHOLOGY | [address] | | | + + + + + | [facility] DEPARTMENT OF | [address] | [place] [address] | | | PATHOLOGY | [address] [...] | + + + + + | [facility] DEPARTMENT OF | [address] | [place] [address] | | | PATHOLOGY | [address] | | | + + + + + | [facility] DEPARTMENT OF | [address] | [place] [address] | | | PATHOLOGY | [address] [...] | + + + + + | [facility] DEPARTMENT OF | [address] | [place] [address] | | | PATHOLOGY | [address] | | | + + + + + | [facility] DEPARTMENT OF | [address] | [place] [address] | | | PATHOLOGY | [address] [...] + + | [facility] DEPARTMENT OF | [address] | [place] [address] | | | PATHOLOGY | [address] | | | + + + + + | [facility] DEPARTMENT OF | [address] | [place] [address] | | | PATHOLOGY | [address] [...] | + + + + + | [facility] DEPARTMENT OF | [address] | [place] [address] | | | PATHOLOGY | [address] | | | + + + + + | [facility] DEPARTMENT OF | [address] | [place] [address] | | | PATHOLOGY | [address] [...] + | [facility] DEPARTMENT OF | [address] [facility] | [place] [address] | | | PATHOLOGY | [address] | | | + + + + + | [facility] DEPARTMENT OF | [address] [facility] | [place] [address] | | | PATHOLOGY | [address] [...] | + + + + + | [facility] | [address] [facility] | [place] [address] | | | PATHOLOGY | [address] | | | + + + + + | [facility] | [address] [facility] | [place] [address] | | | PATHOLOGY | [address] [...] endograftPrimary | | | | | | customer technical services manager: Mickey, | | | | | | PederMDAssistant | | | | | | attending customer technical services manager: | | | | | | Rudolph [...] | | | | | | 1. 4-Portuguese pigtail | | | | | | [...] endograftOperation5. | | | | | | 5-Portuguese pigtail | | | | | | [...] | | | | | technique a 4-Portuguese | | | | | | pigtail [...] a | | | | | | 16-Portuguese sheath was | | | | | [...] | | | | | | the 16-Portuguese sheath and | | | | | [...] | | | | | | balloon. A5-Portuguese | | | | | | pigtail [...] | | + +---------+ + + | [facility] DEPARTMENT OF | | | | | [...] DEPARTMENT OF | [address] | [place] [address] | | | PATHOLOGY | [address] | | | + + + + + | [facility] DEPARTMENT OF | [address] | [place] [address] | | | PATHOLOGY | [address] | | | + + + + + PHOSPHORUS, PLASMA (04/30/2007 4:05 AM PST) + +-------+ + + + | Component | Value | Ref Range | Performed | Pathologist | | | | | At | Signature | + +-------+ + + + | PHOSPHORUS, | 2.9 | 2.4 - 4.7 mg/dL | [facility] | | | PLASMA | | | [...] | + + + + + | [facility] | [address] | [place] [address] | | | PATHOLOGY | [address] | | | + + + + + | [facility] | [address] | [place] [address] | | | PATHOLOGY | [address] [...] | + + + + + | [facility] | [facility] | [place] [address] | | | PATHOLOGY | [address] | | | + + + + + | [facility] DEPARTMENT OF | [facility] | [place] [address] | | | PATHOLOGY | [address] [...] | + + + + + | [facility] DEPARTMENT OF | [address] | [place] [address] | | | PATHOLOGY | [address] | | | + + + + + | [facility] DEPARTMENT OF | [address] | [place] [address] | | | PATHOLOGY | [address] [...] | + + + + + | [facility] | [address] [facility] | [place] [address] | | | PATHOLOGY | [address] | | | + + + + + | [facility] | [address] [facility] | [place] [address] | | | PATHOLOGY | [address] [...] the | | | | | | [place] and | | | | | [...] | | + +---------+ + + | [facility] DEPARTMENT OF | | | | | [...] the | | | | | | [place] and | | | | | [...] | | + +---------+ + + | [facility] DEPARTMENT OF | | | | | [...] | | + +---------+ + + | [facility] DEPARTMENT OF | | | | | [...] DEPARTMENT OF | [address] | [place] [address] | | | PATHOLOGY | [address] | | | + + + + + | [facility] DEPARTMENT | [address] | [place] [address] | | | PATHOLOGY | [address] [...] | + + + + + | [facility] | [address] | [place] [address] | | | PATHOLOGY | [address] | | | + + + + + | [facility] | [address] [facility] | [place] [address] | | | PATHOLOGY | [address] [...] + + + | [facility] | [address] | [place] [address] | | | LABORATORY | | | [...] | + + + + + | [facility] | [address] [facility] | [place] [address] | | | PATHOLOGY | [address] | | | + + + + + | [facility] | [address] [facility] | [place] [address] | | | PATHOLOGY | [address] [...] | + + + + + | [facility] DEPARTMENT OF | [address] | [place] [address] | | | PATHOLOGY | [address] | | | + + + + + | [facility] DEPARTMENT OF | [address] | [place] [address] | | | PATHOLOGY | [address] [...] | + + + + + | [facility] | [address] | [place] [address] | | | PATHOLOGY | [address] | | | + + + + + | [facility] | [address] | [place] [address] | | | PATHOLOGY | [address] [...] | + + + + + | [facility] | [facility] | [place] [address] | | | PATHOLOGY | [address] | | | + + + + + | [facility] DEPARTMENT OF | [facility] | [place] [address] | | | PATHOLOGY | [address] [...] | + + + + + | [facility] DEPARTMENT OF | [address] | [place] [address] | | | PATHOLOGY | [address] | | | + + + + + | [facility] DEPARTMENT OF | [address] | [place] [address] | | | PATHOLOGY | [address] [...] + + | [facility] DEPARTMENT OF | [address] | [place] [address] | | | PATHOLOGY | [address] | | | + + + + + | [facility] DEPARTMENT OF | [address] | [place] [address] | | | PATHOLOGY | [address] | | | + + + + + PROTHROMBIN TIME (04/29/2007 6:15 PM PST) + + + + + + | Component | Value | Ref Range | Performed | Pathologist | | | | | At | Signature | + + + + + + | INR | 1.05Comment: | 0.90 - 1.20 INR | [facility] | | | | PT INR Therapeutic [...] | + + + + + | [facility] | [facility] | [place] [address] | | | PATHOLOGY | [address] | | | + + + + + | [facility] DEPARTMENT OF | [address] | [place] [address] | | | PATHOLOGY | [address] [...] DEPARTMENT OF | [address] | [place] [address] | | | PATHOLOGY | [address] | | | + + + + + | [facility] DEPARTMENT | [address] | [place] [address] | | | PATHOLOGY | [address] [...] | + + + + + | [facility] | [address] | [place] [address] | | | PATHOLOGY | [address] | | | + + + + + | [facility] | [address] | [place] [address] | | | PATHOLOGY | [address] | | | + + + + + documented in this encounter Visit Diagnoses Not on filedocumented in this encounter"
--- OUTSIDE RECORDS SUMMARY | ~2019-11-17 | XMS | Encounter Summary ---
Demographics + + + | Address | [address] | | | [place] [address] | + + + | Home Phone | | + + + | Preferred Language | Unknown | + + + | Marital Status | Single | + + + | Buddhist Affiliation | BAP | + + + | Race | White | + + + | Ethnic Group | Not or | + + + Author + + + | Author | [facility] | + + + | Organization | [facility] | + + + | Address | Unknown | + + + | Phone | Unavailable | + + + Support + + +---------+ + | Name | Relationship | Address | Phone | + + +---------+ + | Lele Conley | ECON | Unknown | | + + +---------+ + Care Team Providers + +------+ + | Care Postal Mail Carrier Name | Role | Phone | + [...] + + | 11/17/ | Emergency | [facility] Emergency | Cristhian Mayer, | | | 2016 | | Department [address] | [address] [facility] | | | | | [address] | [facility] | | | | | [facility] | [place], [place] | | | | | [place], [place] | [address] | | | | | [address] | [phone] | | | | | [phone] | | | +--------+ + + + [...] tablet by | 50 | 0 | / | | | hydrocodone-acetamin | oral route every 4-6 | | | 08 | | | ophen 5-500 mg Oral | hours as needed for | | | | | | Tablet | pain | | | | | + + + +---------+ + + documented as of this encounter Miscellaneous Notes Comm Joanna Flores - 11/16/2016 10:57 PM PDT10:57 PM 11/16/2016 per ref [facility] MCElectronically signed by Joanna Vuong at 10:[facility] Jojo Ayres - 11/16/2016 8:48 PM PDTHOLD-referring exp jorge placement elsewhere due to delays. Will call back to update if bed found elsewhere. E lectronically signed by Jojo Adams at 11/16/2016 8:48 [facility] AdamsJojo - 11/16/2016 8:20 PM PDTSt Hiren calling back asking about bed status and possibly calling elsewhere for transfer if beds not available. Informed we are looking for bed. ELLE jeffries call and offered possible [facility] transfer if team considering calling elsewhere for faste r transfer. Referring MD felt pt too ill for [facility]. Decided to leave pt on [facility] transfer l ist at this time. [facility] Carlie Mejia - 11/16/2016 5:49 PM PDTConnected ref to Dr. Easton (Colorectal Surg). 56 yom, presented c/o L buttock abscess that appears to be branching from pelvic abscess, s ome concern for pelvic tumor per ref surgeon. Pt presented hypotensive, tachycardic, and tac hypneic, SBP up from 70 to 90-100 w fluids, no pressors. Per Dr. Easton ref should speak with E GS attending, not clear this is a colorectal case. Connected ref to Dr. Mayer (EGS-Trauma). Pt chronically ill and lost to f/u, hx portal hype rtension, cirrhosis, alcoholism, and COPD. After consults from several local physicians ref has started pt on vanco, Levaquin, flagyl and cefepime. Current vitals BP 105/54, hr 90, rr 16, unlabored, 96% sats. WBC 21.2, 88 polys and 3 bands. Pt accepted in transfer to 10A bed preferred by Dr. Mayer (EGS-Trauma). OK for med surg if lack of 10A bed would prevent pt from transferring tonight. Paged group 18. omm [place] - Carlie Mcdowell - 11/16/2016 5:[address] Easton (Colorectal). [place] weesk signed by Carlie Lincoln at 11/16/2016 5:45 PM PDTdocumented in this encounter Plan of Treatment Not on filedocumented as of this encounter Visit Diagnoses Not on filedocumented in this encounter"
--- OUTSIDE RECORDS SUMMARY | ~2019-11-17 | XMS | Encounter Summary ---
Demographics + + + | Address | [address] | | | [place] [address] | + + + | Home Phone | | + + + | Preferred Language | Unknown | + + + | Marital Status | Single | + + + | Religion Affiliation | 1009 | + + + [...] Team Providers + +------+ + | Care Health Administration Teacher Name | Role | Phone | + [...] | | | | | | sm ([facility]) | MD Alissa [address] | | | | | | Cellulitis | [address] | | | | | | of right | [place], [place] | | | | | | foot | [phone] | | | | | | Thrombosis | Phone: | | | | | | of | [phone] | | | | | | femoral-femo | Fax: | | | | | | ral bypass | [phone] | | | | | | graft ([facility]) | | | | | | | [...] + + | 10/02/ | Hospital | [facility] | Jairo Renner MD | Pseudoaneurysm ([facility]) | | 2019 - | Encounter | [facility] | [address] | right aorto femoral | | | | [address] | [place] [address] | bypass (Primary | | 10/15/ | | [place], [place] | [phone] | Dx); Peripheral | | 2019 | | [address] | | arterial disease | | | | [phone] | Latoya Oh DO | ([facility]); | | | | | [address] | Pseudoaneurysm | | | | | [place] [address] | ([facility]); Peripheral | | | | | [phone] | arterial disease | | | | | | ([facility]); Cellulitis of | | | | | Chyna Shook MD | right foot; | | | | | [address] | Thrombosis of | | | | | [place] [address] | femoral-femoral | | | | | [phone] | bypass graft (HCC); | | | | | | Post-operative pain | | | | | Tera Vázquez | | | | | | Jose Castañeda MD [address] | | | | [address] | | | | | | [place] [address] | | | | | | [phone] | | | | | | | | | | | | Mundo Pack | | | | | | Poli Powell MD [address] | | | | [address] [place], [place] | | | | | | [address] | | | | | | | [...] GRAFT FEMORAL-POPLITEAL (Bilateral) ANGIOGRAM - EXTREMITY BILATERAL (94617) (Bilateral) Chief Complaint: No chief complaint on [...] who was admitted on 10/03/2019 Transfer from [facility] with bilateral hip and pelvic burning [...] have wound check in 2 weeks wit [facility] to provide transportation, continue with aspirin 81 mg daily, Plavix 75 mg daily, atorv astatin 40 mg daily. Active Problems: Alcohol abuse/ Tobacco abuse advised to stop smoking and drinking Cellulitis of right foot has been completely treated with Augmentin while in the hospital Discharge Information: Follow up: Teresita Bob MD [address] [place] [id number] Follow up for Home health Wound Care ZULY GRIFFIN [address] [address] Follow up Wound Care and Physical Therapy [...] you recover. Don t drive for at svdex5vlie after your surgery or while you are [...] better overnight Chest pain or trouble breathing Bit[employer] last reviewed this educational content on 11/29/201819997755-2020 [employer]. [address] [place] [address]. All righ ts reserved. This information is [...] of developing AAA decreases. To learn more Smokefree.gov/touf-di-lw-expert National Cancer Lowber Smoking Quitline:486-46Z-XYJJ (286-624-3821) [employer] last reviewed this educational content on 12/30/201819997320-3944 [employer]. [address] [place] [address]. All righ ts reserved. This information is [...] find a support program: Free national quitline 100-YQQQ-XGW (607-119-4972) [facility] quit-smoking programs [employer] [employer] 493-929-2303 [place] [employer] 735-480-7550 Support at home is important too. Family and friends can offer praise and reassurance. If t he smoker in your life finds it hard to quit, encourage them to keep trying. Try ojab-jst-dcisbha medicine Nicotine replacement therapymay make iteasier to [...] to quit smoking, try these resources: www.cdc.gov/tobacco/quit_smoking/ 596-HOSV-ZWQ (054-880-1213) www.smokefree.gov 304-30I-JLHN (526-914-7758) www.lung.org/stop-smoking/ 800-LUNGUSA (024-472-1519) Herve last reviewed this educational content on 01/29/201919993083-4281 [employer], MSDSonline.com. [address] [place] [address], [place] [address]. All righ ts reserved. This information is [...] PA- C - 10/16/2019 7:[address] [facility] Service: Vascular Surgery Progress Note Hospital Day: LOS: 13 days Post-Op Day: 11/06 SUBJECTIVE Patient Summary: The patient is a 59 y.o. male with significant past medical history of tobacco abuse, HTN, CAD, history of alcohol abuse who presented to [facility] with com plaints of cellulitis of right leg as well as enlarging pseudoaneurysm of right WIRER HELPER. He unde rwent aortobifemoral bypass in 1999. [...] scan which revealed enlargement of known right WIRER HELPER pseudoaneurysm. He was transferred to [facility] for evaluation and Vascular was [...] importance of following up with our office [place] [facility]. Still recommend discharge ho me with assist [...] outpatient. Disposition: Inpatient Code Status: Full Michael bAel PA-C 10/16/2019 uGerard bhagat RN - 10/15/2019 6:52 PM PDTA/O, AUGUSTUS removed today, wounds less oozy today, possible d/ c tomorrow Electronically signed by: Nigel Starkey RN 10/15/2019 6:53 PM PDT undo Pack MD - 10/15/2019 10:30 AM PDT . Jairo Theodore [id number] Hospital Day: 12 SUBJECTIVE Events Overnight: Patient [...] been in touch with his Merrill, Lele [phone] and he did not want me to [...] and management as well as Computerized Physician Mine Utility Operator. Dictation software, AirCell, used which may contain error for similar sounding words even af ter review. Portions of this chart may have been copied from previous notes for continuity of care. Mundo Pack MD, FACP, FAAP 10/15/2019 il son, Chelsi JUICE Hebert - 10/15/2019 8:[address] [facility] Service: Vascular Surgery Progress Note Hospital [...] history of alcohol abuse who presented to [facility] with com plaints of cellulitis of right leg as well as enlarging pseudoaneurysm of right WIRER HELPER. He unde rwent aortobifemoral bypass in 1999. [...] scan which revealed enlargement of known right WIRER HELPER pseudoaneurysm. He was transferred to [facility] for evaluation and Vascular was [...] Call with any neurovascular changes. [facility] of this patient. [...] - 10/14/2019 9:23 AM PDT Jairo Theodore [id number] Hospital Day: 11 SUBJECTIVE Events Overnight: Patient [...] been in touch with his Merrill, Lele [phone] and he did not want me to [...] and management as well as Computerized Physician Mine Utility Operator. Dictation software, AirCell, used which may contain error for similar sounding words even af ter review. Portions of this chart may have been copied from previous notes for continuity of care. Mundo Pack MD, FACP, FAAP 10/14/2019 il son, Chelsi HebertJUICE - 10/14/2019 8:[address] [facility] Service: Vascular Surgery Progress Note Hospital [...] history of alcohol abuse who presented to [facility] with com plaints of cellulitis of right leg as well as enlarging pseudoaneurysm of right WIRER HELPER. He unde rwent aortobifemoral bypass in 1999. [...] scan which revealed enlargement of known right WIRER HELPER pseudoaneurysm. He was transferred to [facility] for evaluation and Vascular was [...] 1.7 Estimated Energy Needs Energy Calorie Requirements: 3502-1788(28-32 kcal/kg per 54.3 kg admit wt ) [...] PA- C - 10/13/2019 10:[address] [facility] Service: Vascular Surgery Progress Note Hospital [...] history of alcohol abuse who presented to [facility] with com plaints of cellulitis of right leg as well as enlarging pseudoaneurysm of right WIRER HELPER. He unde rwent aortobifemoral bypass in 1999. [...] scan which revealed enlargement of known right WIRER HELPER pseudoaneurysm. He was transferred to [facility] for evaluation and Vascular was [...] different from t wyatt original. Jairo Theodore [id number] Hospital Day: 10 SUBJECTIVE Events Overnight: Patient [...] been in touch with his Merrill, Lele [phone] and he did not want me to [...] and management as well as Computerized Physician Mine Utility Operator. Dictation software, AirCell, used which may contain error for similar [...] different from the orig inal. Jairo Theodore [id number] Hospital Day: 9 SUBJECTIVE Events Overnight: Patient [...] been in touch with his Merrill, Lele [phone] and he did not want me to [...] and management as well as Computerized Physician Mine Utility Operator. Dictation software, AirCell, used which may contain error for similar sounding words even af ter review. Portions of this chart may have been copied from previous notes for continuity of care. Mundo Pack MD, FACP, FAAP 10/12/2019 il son, Chelsi Hebert, JUICE - 10/12/2019 9:[address] [facility] Service: Vascular Surgery Progress Note Hospital [...] history of alcohol abuse who presented to [facility] with com plaints of cellulitis of right leg as well as enlarging pseudoaneurysm of right WIRER HELPER. He unde rwent aortobifemoral bypass in 1999. [...] scan which revealed enlargement of known right WIRER HELPER pseudoaneurysm. He was transferred to [facility] for evaluation and Vascular was [...] Color, UA YELLOW Clarity, Urine CLEAR Specific [place], Urine 1.008 1.002 - 1.030 Leukocyte esterase, [...] BANK COMMENT Testing performed at [facility];[address] [place] [address] Type and Screen Collection Time: 10/12/19 7:52 AM Result Value Ref Range ABO Rh A POSITIVE Antibody Screen NEGATIVE BB BAND [id number] BB BAND Testing performed at [facility];[address] [place] [address] UNIT # [id number] Product Code LEUKODEPLETED PC Unit Division 00 Unit Status ALLOCATED Transfusion Status OK TO TRANSFUSE CROSSMATCH RESULT COMPATIBLE UNIT # [id number] Product Code LEUKODEPLETED PC Unit Division 00 [...] to chair with feet elevated. Please call [facility] any neurovascular changes. Appreciate hospitalitis assistance [...] different from the origina smooth Jairo Theodore [id number] Hospital Day: 8 SUBJECTIVE Events Overnight: Patient [...] right to left femoral [facility] mm PT[facility]. Continue with [...] been in touch with his Merrill, Lele [phone] and he did not want me to [...] and management as well as Computerized Physician Mine Utility Operator. Dictation software, AirCell, used which may contain error for similar sounding words even af ter review. Portions of this chart may have been copied from previous notes for continuity of care. Mundo Pack MD, FACP, FAAP 10/11/2019 il son, Chelsi Hebert, JUICE - 10/11/2019 6:[address] [facility] Service: Vascular Surgery Progress Note Hospital [...] history of alcohol abuse who presented to [facility] with com plaints of cellulitis of right leg as well as enlarging pseudoaneurysm of right WIRER HELPER. He unde rwent aortobifemoral bypass in 1999. [...] scan which revealed enlargement of known right WIRER HELPER pseudoaneurysm. He was transferred to [facility] for evaluation and Vascular was [...] Full Chelsi Arteaga PA-C 10/11/2019 Rachel Trinidad, [facility] - 10/10/2019 11:59 AM PDTFormatting of [...] PO medications. Thank You, Rachel Cifuentes, PharmD, [facility] 10/10/19 11:59 AM PDT rlene Lamar P A-C - 10/10/2019 11:[address] [facility] Service: Vascular Surgery Progress Note Hospital [...] history of alcohol abuse who presented to [facility] with com plaints of cellulitis of right leg as well as enlarging pseudoaneurysm of right WIRER HELPER. He unde rwent aortobifemoral bypass in 1999. [...] scan which revealed enlargement of known right WIRER HELPER pseudoaneurysm. He was transferred to [facility] for evaluation and Vascular was [...] might be different from the or iginal. [facility] Service: Produce Inspector Progress Note Jairo Theodore 59 y.o. [...] He was farnsworth sferred on 10/03/2019 from [facility] for right foot swelling and increase in [...] procedures. Tyler Elias MD 10/10/2019 Dictation software, AirCell, was used which may contain error with similar sound words even after review. Portions of this chart may have been copied from previous notes for continuity of care. Daniella Arias RN - 10/09/2019 10:20 AM PDTFamily/ respiratory care program director updated by pt. Chelsi Orta PA-C - 10/09/2019 7:[address] [facility] Service: Vascular Surgery Progress Note Hospital [...] history of alcohol abuse who presented to [facility] with com plaints of cellulitis of right leg as well as enlarging pseudoaneurysm of right WIRER HELPER. He unde rwent aortobifemoral bypass in 1999. [...] scan which revealed enlargement of known right WIRER HELPER pseudoaneurysm. He was transferred to [facility] for evaluation and Vascular was [...] Gr MD - 10/09/2019 1:28 AM PDT [facility] Service: Produce Inspector Progress Note Jairo Theodore 59 y.o. [...] He was farnsworth sferred on 10/03/2019 from [facility] for right foot swelling and increase in [...] procedures. Julian Gr MD 10/09/2019 Dictation software, AirCell, was used which may contain error with [...] by vascular surgery. R eport given to ELIGIBILITY EXAMINER. Pt safely transferred to room 94211. Incisions and dressings were teresa an and dry. Post tib and pedal pulses dopplerable. JADA SHINE RN Chyna Rashid MD - 10/08/2019 4:07 PM PDT [facility] Service: Hospitalist Progress Note Hospital Day: LOS: 5 days SUBJECTIVE Patient Summary: Mr. Theodore is a 59 yr old man active smoker 1ppday with alcohol abuse, hx of PAD, s/p right aorto bifemoral bypass in 1999 complicated by pseudoaneurysm, s/p revision, was transferred from [facility] ED for right foot swelling and increasing [...] Rashid MD - 10/07/2019 3:55 PM PDT [facility] Service: Hospitalist Progress Note Hospital Day: LOS: 4 days SUBJECTIVE Patient Summary: Mr. Theodore is a 59 yr old man active smoker 1ppday with alcohol abuse, hx of PAD, s/p right aorto bifemoral bypass in 1999 complicated by pseudoaneurysm, s/p revision, was transferred from [facility] ED for right foot swelling and increasing [...] A POSITIVE Antibody Screen NEGATIVE BB BAND SYSTEM CONTROLLER 0630 BB BAND Testing performed at [facility];[address] [place] [address] UNIT # [id number] Product Code LEUKODEPLETED PC Unit Division 00 Unit Status ISSUED Transfusion Status OK TO TRANSFUSE CROSSMATCH RESULT COMPATIBLE UNIT # [id number] Product Code LEUKODEPLETED PC Unit Division 00 Unit Status ISSUED Transfusion Status OK TO TRANSFUSE CROSSMATCH RESULT COMPATIBLE UNIT # [id number] Product Code LEUKODEPLETED PC Unit Division 00 Unit Status ALLOCATED Transfusion Status OK TO TRANSFUSE CROSSMATCH RESULT COMPATIBLE UNIT # [id number] Product Code LEUKODEPLETED PC Unit Division 00 Unit Status ALLOCATED Transfusion Status OK TO TRANSFUSE CROSSMATCH RESULT COMPATIBLE Red Blood Cells (PRBC) - Crossmatch and Hold Result Value Ref Range Product Code RED CELL GROUP Units ordered 2 BLOOD BANK COMMENT ORDER RECEIVED IN BLOOD BANK. BLOOD BANK COMMENT Testing performed at [facility];[address] [place] [address];[place] [address] POC ISTAT, CG8, Arterial Result Value Ref [...] BANK COMMENT Testing performed at [facility];[address] [place] [address];[place] [address] POC ISTAT, CG8, Arterial Result Value Ref [...] Milian PA-C - 10/07/2019 7:[address] [facility] Service: Vascular Surgery Progress Note Hospital Day: LOS: 4 days Post-Op Day: * No surgery date entered * SUBJECTIVE Patient Summary: The patient is a 59 y.o. male with significant past medical history of tobacco abuse, HTN, CAD, history of alcohol abuse who presented to [facility] with com plaints of cellulitis of right leg as well as enlarging pseudoaneurysm of right WIRER HELPER. He unde rwent aortobifemoral bypass in 1999. [...] scan which revealed enlargement of known right WIRER HELPER pseudoaneurysm. He was transferred to [facility] for evaluation and Vascular was [...] A POSITIVE Antibody Screen NEGATIVE BB BAND SYSTEM CONTROLLER 0630 BB BAND Testing performed at [facility];[address] [place] [address];[place] [address] UNIT # [id number] Product Code LEUKODEPLETED PC Unit Division 00 Unit Status ALLOCATED Transfusion Status OK TO TRANSFUSE CROSSMATCH RESULT COMPATIBLE UNIT # [id number] Product Code LEUKODEPLETED PC Unit Division 00 Unit Status ALLOCATED Transfusion Status OK TO TRANSFUSE CROSSMATCH RESULT COMPATIBLE Red Blood Cells (PRBC) - Crossmatch and Hold Collection Time: 10/07/19 6:30 AM Result Value Ref Range Product Code RED CELL GROUP Units ordered 2 BLOOD BANK COMMENT ORDER RECEIVED IN BLOOD BANK. BLOOD BANK COMMENT Testing performed at [facility];[address] [place] [address];[place] [address] PROBLEM LIST Principal Problem: Pseudoaneurysm right aorto [...] Shook MD - 10/06/2019 10:34 AM PDT [facility] Service: Hospitalist Progress Note Hospital Day: LOS: 3 days SUBJECTIVE Patient Summary: Mr. Theodore is a 59 yr old man active smoker 1ppday with alcohol abuse, hx of PAD, s/p right aorto bifemoral bypass in 1999 complicated by pseudoaneurysm, s/p revision, was transferred from [facility] ED for right foot swelling and increasing [...] Crum PA-C - 10/06/2019 9:[address] [facility] Service: Vascular Surgery Progress Note Hospital Day: LOS: 3 days Post-Op Day: * No surgery date entered * SUBJECTIVE Patient Summary: The patient is a 59 y.o. male with significant past medical history of tobacco abuse, HTN, CAD, history of alcohol abuse who presented to [facility] with com plaints of cellulitis of right leg as well as enlarging pseudoaneurysm of right WIRER HELPER. He unde rwent aortobifemoral bypass in 1999. [...] scan which revealed enlargement of known right WIRER HELPER pseudoaneurysm. He was transferred to [facility] for evaluation and Vascular was [...] Rashid MD - 10/05/2019 12:14 PM PDT [facility] Service: Hospitalist Progress Note Hospital Day: LOS: 2 days SUBJECTIVE Patient Summary: Mr. Theodore is a 59 yr old man active smoker 1ppday with alcohol abuse, hx of PAD, s/p right aorto bifemoral bypass in 1999 complicated by pseudoaneurysm, s/p revision, was transferred from [facility] ED for right foot swelling and increasing [...] Crum PA-C - 10/05/2019 8:[address] [facility] Service: Vascular Surgery Progress Note Hospital Day: LOS: 2 days Post-Op Day: * No surgery date entered * SUBJECTIVE Patient Summary: The patient is a 59 y.o. male with significant past medical history of tobacco abuse, HTN, CAD, history of alcohol abuse who presented to [facility] with com plaints of cellulitis of right leg as well as enlarging pseudoaneurysm of right WIRER HELPER. He unde rwent aortobifemoral bypass in 1999. [...] scan which revealed enlargement of known right WIRER HELPER pseudoaneurysm. He was transferred to [facility] for evaluation and Vascular was [...] and open repair for his enlarging right WIRER HELPER pseudoaneurysm. He will need r etroperitoneal exposure [...] Rashid MD - 10/04/2019 9:15 AM PDT [facility] Service: Hospitalist Progress Note Hospital Day: LOS: 1 day SUBJECTIVE Patient Summary: Mr. Theodore is a 59 yr old man active smoker 1ppday with alcohol abuse, hx of PAD, s/p right aorto bifemoral bypass in 1999 complicated by pseudoaneurysm, s/p revision, was transferred from [facility] ED for right foot swelling and increasing [...] BB BAND Testing performed at [facility];[address] [place] [address];[place] [address] ECG 12 lead Result Value Ref Range [...] check if blood cultures were taken at [facility] Prn pain medication Pseudoaneurysm right femoral artery [...] might be different from t he original. [facility] Service: Hospitalist Admission History & [...] who p resents as a transfer from [facility] ED for pseudoaneurysm of the right groin and celluli tis of the RLE. Per patient right pseudoaneurysm of the right groin has been getting bigger for at least a year. Right foot swelling for 5 days. Patient reports similar episodes at [facility] twice a year but this time [...] BB BAND Testing performed at [facility];[address] [place] [address];[place] [address] ECG 12 lead Result Value Ref Range INTERPRETATION TEXT Not Confirmed IMAGING No orders to display EKG at 2310: NSR, VR 72, Qtc 455. Data from [facility] -Ultrasound impression: 6.3 x 5.1 x 5.8 [...] prophylaxis Code Status: Full Code Dictation software, SoThree, used which may contain errors for similar [...] note might be different from the [facility] Service: Produce Inspector Initial Consult Note Jairo Theodore 59 [...] was transf erred 5 days ago from [facility] for right foot swelling and increase in [...] Surgeon: Magdiel Arteaga MD; Location: [facility] MAIN OR FEMORAL-FEMORAL BYPASS GRAFT N/A 10/07/2019 Procedure: BYPASS GRAFT FEMORAL-FEMORAL; Surgeon: Magdiel Arteaga MD; Location: [facility] MAIN OR OTHER SURGICAL HISTORY Right 10/07/2019 Procedure: REPAIR PSEUDOANEURYSM- FEMORAL; Surgeon: Magdiel Arteaga MD; Location: [facility] GABI N OR ALLERGIES Allergies Allergen Reactions [...] PDTAssociated Order(s): PROVIDER TO PROVIDER CONSUL T [facility] Service: Vascular Surgery Initial Consult Note Date of Admission: 10/03/2019 Date of Consultation: 10/04/2019 Reason for Consultation: Pseudoaneurysm of right WIRER HELPER Primary Care Physician: No Physician on file History Obtained From: Patient, chart review Code Status: Full Code CHIEF COMPLAINT: Right foot swelling and pain; Enlarging right femoral pseudoaneurysm HISTORY OF PRESENT ILLNESS The patient is a 59 y.o. male with significant past medical history of tobacco abuse, HTN, CAD, history of alcohol abuse who presented to [facility] with complaints of cellulitis o f right leg as well as enlarging pseudoaneurysm of right WIRER HELPER. He underwent aortobifemoral by pass in 1999. [...] which reveal ed enlargement of known right WIRER HELPER pseudoaneurysm. He was transferred to [facility] for evaluation and Vascular was [...] sodium chloride 0.9% 100 mL/hr at 10/03/19 8265 PRN Medications acetaminophen, calcium carbonate, LORazepam, melatonin, [...] - The patient was transferr ed to [facility] for evaluation of his enlarging pseudoaneurysm, which has been the same size for the last year he reports. [facility] but was lost to any follow up. He has a complex history regarding his aortic repair and his left si de is chronically occluded per review of [facility] notes and angiographic report from 2007. His C TA with runoff yesterday showed enlarging right femoral pseudoaneurysm. Left WIRER HELPER shows no in flow but reconstitutes. The patient will require revascularization and open repair for his e nlarging right WIRER HELPER pseudoaneurysm. He will need retroperitoneal exposure with [...] Current Outpt/Agency/Support Groups: yes Community Agency Name: [facility] Disciplines: RN and PT - RN for wound care Equipment Durable Medical Equipment Provider: Home Equipment at Discharge: none Equipment Used at Home: cane, straight, single point Pharmacy Pharmacy/Medication needs: Pt is going to use Rx Pharmacy and will use his Medicare Part D benefits. TELEVISION PRODUCTION ASSISTANT and Pt called [facility], got him reestablished with the [facility], has not been seen since 2018 . Pt is now assigned to [facility]. TELEVISION PRODUCTION ASSISTANT p/c with Rudolph at [facility], states they will be calling Pt for follow up appt and will send referral for outpatient wound care. TELEVISION PRODUCTION ASSISTANT p/c with Carol at [facility], states she has received [place] orders in the p ast and will follow up with Dr. Bob's office. TELEVISION PRODUCTION ASSISTANT provided referral and faxed Home health referral. Electronically signed: PORTILLO MCGUIRE 10/16/2019 1:16 PM PDT lan of Care - Avinash Phliip PT - 10/16/2019 11:55 AM PDT Physical [...] Bed Mobility Supine to Sit, Level of [place]: modified independent Sit to Supine, Level of [place]: modified independent Safety Issues: decreased use of legs for bridging/pushing Transfers Sit-Stand, Level of [place]: supervised Stand-Sit, Level of [place]: supervised Fra-Ktzij-Tvc, Assistive Device: none Gait Level of [place]: supervised Assistive Device: none Distance (feet): 40 Goals Reflects last filed data and may be from multiple contributors. All Bed Mobility Goal Most Recent Value LTG Status new at 10/09/2019 1108 LTG [place] Level modified independent at 10/09/2019 1108 LTG Assistive Device none at 10/09/2019 1108 All Transfers Goal Most Recent Value LTG Status new at 10/09/2019 1108 LTG [place] Level modified independent at 10/09/2019 1108 LTG Assistive Device 2 wheeled walker (FWW) at 10/09/2019 1108 Gait Goal Most Recent Value LTG Status new at 10/09/2019 1108 LTG [place] Level modified independent at 10/09/2019 1108 LTG Assistive Device 2 wheeled walker (FWW) at 10/09/2019 1108 LTG Distance (feet) 100 at 10/09/2019 1108 Stair Goal Most Recent Value LTG Status new at 10/09/2019 1108 LTG [place] Level modified independent at 10/09/2019 1108 LTG [...] H /H remains stable lan of Sigrid Salemron RN - 10/14/2019 12:00 PM PDTProblem: Skin [...] bed rails Supine to Sit, Level of [place]: modified independent Safety Issues: decreased use of legs for bridging/pushing Impairments: ROM decreased, strength decreased Transfers Sit-Stand, Level of [place]: stand by assist, verbal cues required Stand-Sit, Level of [place]: stand by assist, verbal cues required Aqi-Ssuqj-Dfk, Assistive Device: 2 wheeled walker (FWW), none Toilet, Level of [place]: stand by assist, verbal cues required Toilet, Assistive Device: 2 wheeled walker (FWW), grab bars Gait Gait Comments: antalgic gait with flexed trunk posture and intermittent crouch position Level of [place]: stand by assist, verbal cues required(verbal cues [...] LTG Status new at 10/09/2019 1108 LTG [place] Level modified independent at 10/09/2019 1108 LTG Assistive Device none at 10/09/2019 1108 All Transfers Goal Most Recent Value LTG Status new at 10/09/2019 1108 LTG [place] Level modified independent at 10/09/2019 1108 LTG Assistive Device 2 wheeled walker (FWW) at 10/09/2019 1108 Gait Goal Most Recent Value LTG Status new at 10/09/2019 1108 LTG [place] Level modified independent at 10/09/2019 1108 LTG Assistive Device 2 wheeled walker (FWW) at 10/09/2019 1108 LTG Distance (feet) 100 at 10/09/2019 1108 Stair Goal Most Recent Value LTG Status new at 10/09/2019 1108 LTG [place] Level modified independent at 10/09/2019 1108 LTG [...] Bed Mobility Supine to Sit, Level of [place]: minimal assist (75% patient effort) Transfers Sit-Stand, Level of [place]: minimal assist (75% patient effort) Gait Level of [place]: minimal assist (75% patient effort) Assistive Device: [...] LTG Status new at 10/09/2019 1108 LTG [place] Level modified independent at 10/09/2019 1108 LTG Assistive Device none at 10/09/2019 1108 All Transfers Goal Most Recent Value LTG Status new at 10/09/2019 1108 LTG [place] Level modified independent at 10/09/2019 1108 LTG Assistive Device 2 wheeled walker (FWW) at 10/09/2019 1108 Gait Goal Most Recent Value LTG Status new at 10/09/2019 1108 LTG [place] Level modified independent at 10/09/2019 1108 LTG Assistive Device 2 wheeled walker (FWW) at 10/09/2019 1108 LTG Distance (feet) 100 at 10/09/2019 1108 Stair Goal Most Recent Value LTG Status new at 10/09/2019 1108 LTG [place] Level modified independent at 10/09/2019 1108 LTG [...] participation. Pt with an i ncontinent BM. WEB UI SOFTWARE ENGINEER and PT assisting with mobility and pericare. [...] Transfers Additional Documentation: toilet Sit-Stand, Level of [place]: minimal assist (75% patient effort) Stand-Sit, Level of [place]: minimal assist (75% patient effort) Fbn-Paqsy-Rfm, Assistive Device: 2 wheeled walker (FWW) Toilet, Level of [place]: minimal assist (75% patient effort) Toilet, Assistive Device: 2 wheeled walker (FWW) Safety Issues: loses balance backward, weight-shifting ability decreased, step length decre ased, sequencing ability decreased, balance decreased during turns Impairments: ROM decreased, strength decreased, impaired balance Gait Gait Comments: reduced step length BLE, excessive trunk flexion, reduced weight bearing RLE , avoidance COG over HAN Level of [place]: minimal assist (75% patient effort) Assistive Device: 2 wheeled walker (FWW) Distance (feet): 15x2 Goals Reflects last filed data and may be from multiple contributors. All Bed Mobility Goal Most Recent Value LTG Status new at 10/09/2019 1108 LTG [place] Level modified independent at 10/09/2019 1108 LTG Assistive Device none at 10/09/2019 1108 All Transfers Goal Most Recent Value LTG Status new at 10/09/2019 1108 LTG [place] Level modified independent at 10/09/2019 1108 LTG Assistive Device 2 wheeled walker (FWW) at 10/09/2019 1108 Gait Goal Most Recent Value LTG Status new at 10/09/2019 1108 LTG [place] Level modified independent at 10/09/2019 1108 LTG Assistive Device 2 wheeled walker (FWW) at 10/09/2019 1108 LTG Distance (feet) 100 at 10/09/2019 1108 Stair Goal Most Recent Value LTG Status new at 10/09/2019 1108 LTG [place] Level modified independent at 10/09/2019 1108 LTG [...] Recommendations: 2 wheeled walker (FWW), shower chair, gm video, sock aide, long handled sponge, long handled [...] cheese snadwhiches since being a t the [facility] despite his chart saying he has been [...] bed rails Supine to Sit, Level of [place]: minimal assist (75% patient effort) Sit to Supine, Level of [place]: moderate assist (50% patient effort) Safety Issues: decreased use of legs for bridging/pushing, decreased use of arms for pushin g/pulling Impairments: ROM decreased, strength decreased, postural control impaired, pain Transfers Additional Documentation: sit to/from stand Sit-Stand, Level of [place]: minimal assist (75% patient effort) Stand-Sit, Level of [place]: maximal assist (25% patient effort) Vlj-Pkeqa-Xbq, Assistive Device: 2 wheeled walker (FWW), gait belt Safety Issues: loses balance backward, weight-shifting ability decreased, step length decre ased, sequencing ability decreased, balance decreased during turns Impairments: ROM decreased, strength decreased, impaired balance ROM Comments: WFL Strength Comments: WFL. B cdl dedicated truck driver strength 4/5. B UE MMT 4/5 except for biceps 3+/5 Balance Sitting Balance: Static: good balance Sitting Balance: Dynamic: good balance Standing Balance: Static: poor balance Standing Balance: Dynamic: poor balance Goals Reflects last filed data and may be from multiple contributors. LB Dressing Goal Most Recent Value LTG Status new at 10/10/2019 154 LTG [place] Level minimum assist (75% patient effort), set up required at 10/10/20191544 LTG Adaptive Equipment gm video, sock-aid at 10/10/20191544 Toilet Transfer Goal Most Recent Value LTG Status new at 10/10/2019 154 LTG [place] Level minimum assist (75% patient effort) at [...] at bedside in ICU on turnover by electric detector operator. Patient stat es he feels better, no [...] bed rails Supine to Sit, Level of [place]: minimal assist (75% patient effort) Transfers Bed-Chair, Level of [place]: minimal assist (75% patient effort) Eal-Ldcrs-Yha, Assistive Device: 2 wheeled walker (FWW), gait belt Sit-Stand, Level of [place]: minimal assist (75% patient effort), stand by assist Stand-Sit, Level of [place]: minimal assist (75% patient effort), stand by assist Gait Gait Comments: reduced step length BLE, excessive trunk flexion, reduced weight bearing RLE , avoidance COG over HAN Level of [place]: minimal assist (75% patient effort), verbal cues [...] LTG Status new at 10/09/2019 1108 LTG [place] Level modified independent at 10/09/2019 1108 LTG Assistive Device none at 10/09/2019 1108 All Transfers Goal Most Recent Value LTG Status new at 10/09/2019 1108 LTG [place] Level modified independent at 10/09/2019 1108 LTG Assistive Device 2 wheeled walker (FWW) at 10/09/2019 1108 Gait Goal Most Recent Value LTG Status new at 10/09/2019 1108 LTG [place] Level modified independent at 10/09/2019 1108 LTG Assistive Device 2 wheeled walker (FWW) at 10/09/2019 1108 LTG Distance (feet) 100 at 10/09/2019 1108 Stair Goal Most Recent Value LTG Status new at 10/09/2019 1108 LTG [place] Level modified independent at 10/09/2019 1108 LTG [...] Family Contact Information: Name: Lele Conley (Roommate) [id number] signed by PORTILLO Varner at 10/10/2019 10:13 [...] HOB elevated Supine to Sit, Level of [place]: maximal assist (25% patient effort) Safety Issues: decreased use of legs for bridging/pushing, impaired trunk control for bed m obility Impairments: pain, strength decreased, ROM decreased Transfers Additional Documentation: sit to/from stand, bed to/from chair Bed-Chair, Level of [place]: moderate assist (50% patient effort) Bpb-Qlyvn-Iam, Assistive Device: 2 wheeled walker (FWW) Sit-Stand, Level of [place]: minimal assist (75% patient effort) Stand-Sit, Level of [place]: minimal assist (75% patient effort) Jaq-Ihuet-Qen, Assistive Device: 2 wheeled walker (FWW) Safety [...] LTG Status new at 10/09/2019 1108 LTG [place] Level modified independent at 10/09/2019 1108 LTG Assistive Device none at 10/09/2019 1108 All Transfers Goal Most Recent Value LTG Status new at 10/09/2019 1108 LTG [place] Level modified independent at 10/09/2019 1108 LTG Assistive Device 2 wheeled walker (FWW) at 10/09/2019 1108 Gait Goal Most Recent Value LTG Status new at 10/09/2019 1108 LTG [place] Level modified independent at 10/09/2019 1108 LTG Assistive Device 2 wheeled walker (FWW) at 10/09/2019 1108 LTG Distance (feet) 100 at 10/09/2019 1108 Stair Goal Most Recent Value LTG Status new at 10/09/2019 1108 LTG [place] Level modified independent at 10/09/2019 1108 LTG [...] 1.7 Estimated Energy Needs Energy Calorie Requirements: 4649-0123(28-32 kcal/kg per 54.3 kg admit wt ) [...] Ongoing, progressing Flowsheets (Taken 10/09/2019 1024) Participants: behavioral health case manager dietitian/nutrition services advanced practice nurse nursing [...] started on clear liquid diet. lan of [facility] Viv Santos MSW - 10/09/2019 9:44 AM PDTAttended morning rounds. Pt transferred to ICU post -op for repair of thrombosed fem-fem artery bypass. Progressing. Await PT to julissa and alissa tinajero. Has no PCP per CM note and FS. [facility] is [facility] [employer]. lan of [facility] Urszula Garcia RN - 10/09/2019 8:02 AM [...] 10/08/2019 2:31 PM PDT BRIEF OPERATIVE NOTE [facility] Pt. Name/Age/: Jairo Theodore 59 y.o. 1960 Med. Record Number: [id number] Date of admission: 10/03/2019 Date of Operation/Procedure: [...] disease (HCC) [I73.9] Surgeon: Magdiel Arteaga MD Banana Grader: Maicol Abel PA-C Anesthesia Provider(s): Anesthesiologist: Orlando Ambriz DO LEVEL DESIGNER: Som Garcia CRNA Anesthesia Type: Anesthesia type not filed in the log. Procedure(s): THROMBECTOMY / EMBOLECTOMY of fem fem bypass BILATERAL BYPASS GRAFT FEMORAL-POPLITEAL WITH 6 MM PTFE ANGIOGRAM - EXTREMITY BILATERAL (51755) Operative Findings: Thrombosed femoral to femoral artery [...] Implant Name Type Inv. Item Serial No. Class B Truck Driver Lot No. LRB No. Used Action GRAFT VAS PROPATEN 6-80MM - [id number] Graft GRAFT VAS PROPATEN 6-80MM [id number] [facility] NA N/A 1 Implanted GRAFT VAS PROPATEN 6-80MM - [id number] Graft GRAFT VAS PROPATEN 6-80MM [id number] [facility] [...] MD - 10/08/2019 10 :06 AM PDT [facility] OPERATIVE REPORT PATIENT NAME: [...] the femorofemoral bypass. Using 2 CV 6 [place]-Jamie sutures the 6 mm bypass was anastomos [...] astomosis was created with 2 CV 6 [place]-Jamie sutures. Prior to completing the anastomosis the [...] an antibiotic solution. Hemostasis was achieved. 7 Welsh drains were placed in both groins and [...] Magdiel Arteaga MD Vascular Surgery Dictation software, AirCell, used which may contain error for similar sounding words even af ter review. Personal communication requested for any clarification. Electronically signed by: Magdiel Arteaga MD, 10/09/2019 10:06 AM PDT [facility] lan of Care - Aggie Hayden RN [...] Arteaga MD - 10/07/2019 7:00 PM PDT [facility] OPERATIVE REPORT PATIENT NAME: Jairo Theodore [...] vanced a wire and placed a 7 Welsh sheath. We again attempted to select out [...] femoral endarterectomy was performed w ith a Jenera elevator. There was good backbleeding from the [...] common femoral endarterectomy was performed using the Jenera elevator. After performing the endarterect carlyle there [...] copiously irrigated. There was good hemostasis. 7 Welsh flat AUGUSTUS drains were placed in both [...] Magdiel Arteaga MD Vascular Surgery Dictation software, AirCell, used which may contain error for similar sounding words even af ter review. Personal communication requested for any clarification. Electronically signed by: Magdiel Arteaga MD, 10/09/2019 9:28 AM PDT [facility] rief Op Note - Magdiel Arteaga MD - 10/07/2019 4:30 PM PDTFormatting of this note might be different from the or iginal. BRIEF OPERATIVE NOTE [facility] Pt. Name/Age/: Jairo Theodore 59 y.o. 1960 Med. Record Number: [id number] Date of admission: 10/03/2019 Date of Operation/Procedure: 10/07/2019 Preoperative Diagnosis: 1. Large right groin pseudoaneurysm 2. Peripheral arterial disease Postoperative Diagnosis: * Pseudoaneurysm (HCC) [I72.9] Surgeon: Magdiel Arteaga MD Banana Grader: Maicol Abel PA-C Anesthesia Provider(s): Anesthesiologist: Rudolph Lowery MD LEVEL DESIGNER: Neville Rush CRNA Anesthesia Type: General Procedure(s): [...] Implant Name Type Inv. Item Serial No. Class B Truck Driver Lot No. LRB No. Used Action GRAFT GORE PROPATEN [id number] - [id number] Graft GRAFT GORE PROPATEN [id number] WL GORE - WLGO NA Right 1 Implanted GRAFT HEMGRD KNIT [id number] - [id number] Graft GRAFT HEMGRD KNIT [id number] [employer]ES - MAQU [id number] Right 1 [...] VSS with one SBP in 170s recheck [id number]. Report given to preop nurse and 0600IVPB [...] and Optimize Oral Intake Flowsheets (Taken 10/05/2019 2765) Oral Nutrition Promotion: calorie dense foods provided Note: Pt tolerating oral liquids well. NPO at midnight. lan of [facility] Oriana Mar RN - 10/04/2019 8:07 PM [...] chart check and audit complete. lan of [facility] Zuleyka Ramos RN - 10/04/2019 6:55 PM [...] the bathroom clear of clutter. lan of [facility] Carol Olivares MSW - 10/04/2019 12:52 PM [...] Notes: Pt resides with his friend in [place]. Pt is independent - no caregiver, home [...] of RLE and enlarging pseudoaneurysm of right WIRER HELPER. Pt scheduled for pseudoaneurysm repair on 10/04. [...] BUN 7* CREA 0.60* Estimated Energy Needs 3863-6121 kcal/day (28-32 kcal/kg per 54.3 kg admit [...] | | | | | | [place] | | | | | | [id number] | | | | | | | | +--------+ + + + + | 02/06/ | Office | Vascular Surgery | Ricci De León DNP | | 2019 | Visit | | [address] | | | | | | [place] | | | | | | [id number] | | | | | | | | | | | | Magdiel Arteaga MD | | | | | | [address] | | | | | | [place] | | | | | | [place] [address] | | | | | | [phone] | | | | | | | [...] Expected: | | | | e | ([facility]) right aorto | 10/23/2019, Expires: | | | | | femoral bypass | 10/15/2020 | + +---------+--------+ + + | CBC w/ Auto | Lab | Routin | Pseudoaneurysm | Expected: | | Differential | | e | ([facility]) right aorto | 10/23/2019, Expires: | | [...] | Health | Referral | e | ([facility]) right aorto | | | | | | femoral bypass | | | | | | Cellulitis of right | | | | | | foot 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 ([facility]) | | | | | | Post-operative [...] EXTREMITY BILATERAL | | 9:22 AM | ([facility]) Peripheral | | | (61554) | | PDT | arterial disease | | | | | | ([facility]) | | + +--------+ + + + | BYPASS GRAFT | | 10/08/2019 | Pseudoaneurysm | | | FEMORAL-POPLITEAL | | 9:22 AM | ([facility]) Peripheral | | | | | PDT | arterial disease | | | | | | ([facility]) | | + +--------+ + + + | THROMBECTOMY / | | 10/08/2019 | Pseudoaneurysm | | | EMBOLECTOMY | | 9:22 AM | ([facility]) Peripheral | | | | | PDT | arterial disease | | | | | | ([facility]) | | + +--------+ + + + [...] | 10.2Comment: NO NORMAL | fl | JUAN M | | | | RANGE ESTABLISHEDTesting | | LABORATORY | | | | performed at [facility], [address] | | | [address], | | | | | | [place] [address] | | | | + + + + + + + + | Specimen | + + | Blood | + + + + + + + | Performing | Address | City/State/Zipcode | Phone Number | | Organization | | | | + + + + + | [facility] | [address] | [place] [address] | [phone] | + + + + + Magnesium (10/16/2019 5:11 AM PDT) + + + + + + | Component | Value | Ref Range | Performed | Pathologist | | | | | At | Signature | + + + + + + | Magnesium | 1.7Comment: Testing | 1.7 - 2.4 mg/dL | [facility] | | | | performed at [facility];[address] | | LABORATORY | | | | [address];[place], [place] | | | | | | [address] | | | | + + + + + + + + | Specimen | + + | Blood | + + + + + + + | Performing | Address | City/State/Zipcode | Phone Number | | Organization | | | | + + + + + | [facility] | [address] | [place] [address] | [phone] | + + + + + Potassium (10/16/2019 5:11 AM PDT) + + + + + + | Component | Value | Ref Range | Performed | Pathologist | | | | | At | Signature | + + + + + + | K | 3.0 (L)Comment: Testing | 3.5 - 4.9 | [facility] | | | | performed at [facility];[address] | mmol/L | LABORATORY | | | | [address];[place] | | | | | | [address] | | | | + + + + + + + + | Specimen | + + | Blood | + + + + + + + | Performing | Address | City/State/Zipcode | Phone Number | | Organization | | | | + + + + + | [facility] | [address] | [place] [address] | [phone] | + + + + + CBC [...] LABORATORY | | | | performed at [facility], [address] | | | | | [address], | | | | | | [place] [address] | | | | + + + + + + + + | Specimen | + + | Blood | + + + + + + + | Performing | Address | City/State/Zipcode | Phone Number | | Organization | | | | + + + + + | [facility] | [address] | [place] [address] | [phone] | + + + + + Magnesium [...] | | | performed at [facility];[address] | | LABORATORY | | | | [address];[place] | | | | | | [address] | | | | + + + + + + + + | Specimen | + + | Blood | + + + + + + + | Performing | Address | City/State/Zipcode | Phone Number | | Organization | | | | + + + + + | [facility] | [address] | [place] [address] | [phone] | + + + + + Basic [...] 7.5 (L) | 8.5 - 10.5 | KR [...] | | | | | performed at [facility], [address] | | | | | | [facility], | | | | | | [place] [address] | | | | + + + + + + + + | Specimen | + + | Blood | + + + + + + + | Performing | Address | City/State/Zipcode | Phone Number | | Organization | | | | + + + + + | [facility] | [address] | [place] [address] | [phone] | + + + + + Potassium (10/14/2019 3:28 PM PDT) + + + + + + | Component | Value | Ref Range | Performed | Pathologist | | | | | At | Signature | + + + + + + | K | 3.3 (L)Comment: Testing | 3.5 - 4.9 | [facility] | | | | performed at [facility];[address] | mmol/L | LABORATORY | | | | [address];[place], [place] | | | | | | [address] | | | | + + + + + + + + | Specimen | + + | Blood | + + + + + + + | Performing | Address | City/State/Zipcode | Phone Number | | Organization | | | | + + + + + | [facility] | [address] | [place] [address] | [phone] | + + + + + Magnesium (10/14/2019 3:28 PM PDT) + + + + + + | Component | Value | Ref Range | Performed | Pathologist | | | | | At | Signature | + + + + + + | Magnesium | 2.1Comment: Testing | 1.7 - 2.4 mg/dL | [place] | | | | performed at [facility];[address] | | LABORATORY | | | | [address];[place], [place] | | | | | | [address] | | | | + + + + + + + + | Specimen | + + | Blood | + + + + + + + | Performing | Address | City/State/Zipcode | Phone Number | | Organization | | | | + + + + + | [facility] | [address] | [place] [address] | [phone] | + + + + + Phosphorus [...] | | | performed at [facility];[address] | | LABORATORY | | | | [address];[place] | | | | | | [address] | | | | + + + + + + + + | Specimen | + + | Blood | + + + + + + + | Performing | Address | City/State/Zipcode | Phone Number | | Organization | | | | + + + + + | [facility] | [address] | [place] [address] | [phone] | + + + + + CBC [...] | 10.5Comment: NO NORMAL | fl | JUAN M | | | | RANGE ESTABLISHEDTesting | | LABORATORY | | | | performed at [facility], [address] | | | | | [address], | | | | | | [place] [address] | | | | + + + + + + + + | Specimen | + + | Blood | + + + + + + + | Performing | Address | City/State/Zipcode | Phone Number | | Organization | | | | + + + + + | [facility] | [address] | [place] [address] | [phone] | + + + + + Magnesium [...] | | | performed at [facility];[address] | | LABORATORY | | | | [address];[place], [place] | | | | | | [address] | | | | + + + + + + + + | Specimen | + + | Blood | + + + + + + + | Performing | Address | City/State/Zipcode | Phone Number | | Organization | | | | + + + + + | [facility] | [address] | [place] [address] | [phone] | + + + + + Basic [...] 7.6 (L) | 8.5 - 10.5 | [facility] | | | | | mg/dL | LABORATORY | | + + + + + + | Estimated | >60Comment: GFR <60: | >60 | [facility] | | | GFR | [...] | | | | | | MDRD IDDC traceable | | | | | | equation.Testing | | | | | | performed at [facility], [address] | | | | | | [facility], | | | | | | [place] [address] | | | | + + + + + + + + | Specimen | + + | Blood | + + + + + + + | Performing | Address | City/State/Zipcode | Phone Number | | Organization | | | | + + + + + | [facility] | [address] | [place] [address] | [phone] | + + + + + Potassium (10/13/2019 11:07 AM PDT) + + + + + + | Component | Value | Ref Range | Performed | Pathologist | | | | | At | Signature | + + + + + + | K | 3.5Comment: Testing | 3.5 - 4.9 | [facility] | | | | performed at [facility];888 | mmol/L | LABORATORY | | | | [address];[place], [place] | | | | | | [address] | | | | + + + + + + + + | Specimen | + + | Blood | + + + + + + + | Performing | Address | City/State/Zipcode | Phone Number | | Organization | | | | + + + + + | [facility] | [address] | [place] [address] | [phone] | + + + + + Potassium (10/13/2019 4:37 AM PDT) + + + + + + | Component | Value | Ref Range | Performed | Pathologist | | | | | At | Signature | + + + + + + | K | 3.5Comment: Testing | 3.5 - 4.9 | [facility] | | | | performed at [facility];888 | mmol/L | LABORATORY | | | | [address];[place] | | | | | | [address] | | | | + + + + + + + + | Specimen | + + | Blood | + + + + + + + | Performing | Address | City/State/Zipcode | Phone Number | | Organization | | | | + + + + + | [facility] | [address] | [place] [address] | [phone] | + + + + + Magnesium (10/13/2019 4:37 AM PDT) + + + + + + | Component | Value | Ref Range | Performed | Pathologist | | | | | At | Signature | + + + + + + | Magnesium | 1.7Comment: Testing | 1.7 - 2.4 mg/dL | [facility] | | | | performed at [facility];[address] | | LABORATORY | | | | [facility];[place], [place] | | | | | | [address] | | | | + + + + + + + + | Specimen | + + | Blood | + + + + + + + | Performing | Address | City/State/Zipcode | Phone Number | | Organization | | | | + + + + + | [facility] | [address] | [place] [address] | [phone] | + + + + + Basic [...] | >60Comment: GFR <60: | >60 | [facility] | | | GFR | [...] | | | | | | MDRD IDDC traceable | | | | | | equation.Testing | | | | | | performed at [facility] | | | | | | [facility];[place], [place] | | | | | | [address] | | | | + + + + + + + + | Specimen | + + | Blood | + + + + + + + | Performing | Address | City/State/Zipcode | Phone Number | | Organization | | | | + + + + + | [facility] | [address] | [place] [address] | [phone] | + + + + + Hemoglobin [...] Testing | 39.0 - 50.0 % | [facility] | | | | performed at [facility];[address] | | LABORATORY | | | | [address];[place], [place] | | | | | | [address] | | | | + + + + + + + + | Specimen | + + | Blood | + + + + + + + | Performing | Address | City/State/Zipcode | Phone Number | | Organization | | | | + + + + + | [facility] | [address] | [place] [address] | [phone] | + + + + + Potassium (10/12/2019 4:28 PM PDT) + + + + + + | Component | Value | Ref Range | Performed | Pathologist | | | | | At | Signature | + + + + + + | K | 3.3 (L)Comment: Testing | 3.5 - 4.9 | [facility] | | | | performed at [facility];888 | mmol/L | LABORATORY | | | | [address];[place] | | | | | | [address] | | | | + + + + + + + + | Specimen | + + | Blood | + + + + + + + | Performing | Address | City/State/Zipcode | Phone Number | | Organization | | | | + + + + + | [facility] | [address] | [place] [address] | [phone] | + + + + + Clostridium [...] C. | Negative for toxigenic | | [facility] | | | difficile, | C.difficile.Comment: | | LABORATORY | | | Interp | Testing performed at | | | | | | [facility];[address] | [address];[place] [address] | | | | + + + + + + + + | Specimen | + + | Stool - Stool | | specimen (specimen) | + + + + + + + | Performing | Address | City/State/Zipcode | Phone Number | | Organization | | | | + + + + + | [facility] | [address] | [place] [address] | [phone] | + + + + + Potassium (10/12/2019 11:02 AM PDT) + + + + + + | Component | Value | Ref Range | Performed | Pathologist | | | | | At | Signature | + + + + + + | K | 3.3 (L)Comment: Testing | 3.5 - 4.9 | [facility] | | | | performed at [facility];888 | mmol/L | LABORATORY | | | | [address];[place] | | | | | | [address] | | | | + + + + + + + + | Specimen | + + | Blood | + + + + + + + | Performing | Address | City/State/Zipcode | Phone Number | | Organization | | | | + + + + + | [facility] | [address] | [place] [address] | [phone] | + + + + + Type [...] + + + | BB BAND | [id number] | | [facility] | | | | | | LABORATORY | | + + + + + + | UNIT # | [id number] | | [facility] | | | | [...] | RESULT | performed at [facility] | | LABORATORY | | | | [address];[place], [place] | | | | | | [address] | | | | + + + + + + | UNIT # | [id number] | | [facility] | | | | [...] | + + + + + | [facility] | [address] | [place] [address] | [phone] | + + + + + Red [...] | | | COMMENT | [facility];[address] | | LABORATORY | | | | [address];[place] [address] | | | | + + + + + + + + | Specimen | + + | | + + + + + + + | Performing | Address | City/State/Zipcode | Phone Number | | Organization | | | | + + + + + | [facility] | [address] | [place] [address] | [phone] | + + + + + Magnesium [...] | | | performed at [facility];[address] | | LABORATORY | | | | [address];[place] | | | | | | [address] | | | | + + + + + + + + | Specimen | + + | Blood | + + + + + + + | Performing | Address | City/State/Zipcode | Phone Number | | Organization | | | | + + + + + | [facility] | [address] | [place] [address] | [phone] | + + + + + Comprehensive [...] | | | performed at [facility];88 | | | | | | [facility];[place], [place] | | | | | | [address] | | | | + + + + + + + + | Specimen | + + | Blood | + + + + + + + | Performing | Address | City/State/Zipcode | Phone Number | | Organization | | | | + + + + + | [facility] | [address] | [place] [address] | [phone] | + + + + + CBC [...] 17.0 | [facility] | | | | TONJA SANTANA | g/dL | LABORATORY | | | [...] | [facility] | | | | NURSING [id number] AJ | | LABORATORY | | | | [...] | | | performed at [facility];[address] | | | | | | [address];[place], [place] | | | | | | [address] | | | | + + + + + + + + | Specimen | + + | Blood | + + + + + + + | Performing | Address | City/State/Zipcode | Phone Number | | Organization | | | | + + + + + | [facility] | [address] | [place] [address] | [phone] | + + + + + Urinalysis [...] - 1.030 | [facility] | | | [place], | | | LABORATORY | | | [...] [place] | | | | | | [address] | | | | + + + [...] | + + + + + | [facility] | [address] | [place] [address] | [phone] | + + + + + Osmolality, Urine (10/11/2019 11:16 AM PDT) + + + + + + | Component | Value | Ref Range | Performed | Pathologist | | | | | At | Signature | + + + + + + | OSMO URINE | 239Comment: Testing | 50 - 1,200 | [facility] | | | | performed at [facility], [address] | mOsm/kg | LABORATORY | | | | [address], | | | | | | [place] [address] | | | | + + + [...] | + + + + + | [facility] | [address] | [place] [address] | [phone] | + + + + + Culture, [...] Special | Testing performed at | | [facility] | | | Requests | [facility];[address] | | LABORATORY | | | | [address];[place] [address] | | | | + + + + + + | RESULT | NO GROWTH 6 DAYS | | [facility] | | | | | | LABORATORY | | + + + + + + | RESULT | Testing performed at | | [facility] | | | | [facility], [address] | | LABORATORY | | | | [place] | | | | | | [address]Xbttfcp: Testing | | | | | | performed at [facility], [address] | | | | | | [place] | | | | | | [address] | | | | + + + + + + + + | Specimen | + + | Blood - Swab of line | | insertion site | | (specimen) | + + + + + + + | Performing | Address | City/State/Zipcode | Phone Number | | Organization | | | | + + + + + | [facility] | [address] | [place] [address] | [phone] | + + + + + XR [...] Procedure Note | + + | Espinoza, [id number] - 10/11/2019 10:42 AM PDT | | [...] | Special | R AC | | [facility] | | | Requests | | | LABORATORY | | + + + + + + | Special | Testing performed at | | [facility] | | | Requests | [facility];[address] | | LABORATORY | | | | [address];[place] [address] | | | | + + + + + + | RESULT | NO GROWTH 6 DAYS | | [facility] | | | | | | LABORATORY | | + + + + + + | RESULT | Testing performed at | | [facility] | | | | [facility], [address] [facility] | | LABORATORY | | | | [address], [place] | | | | | | [address]Ptlqxod: Testing | | | | | | performed at [facility], [address] | | | | | | [address], [place] | | | | | | [address] | | | | + + + + + + + + | Specimen | + + | Blood - Peripheral | | blood specimen | | (specimen) | + + + + + + + | Performing | Address | City/State/Zipcode | Phone Number | | Organization | | | | + + + + + | [facility] | [address] | [place] [address] | [phone] | + + + + + Sodium (10/11/2019 9:30 AM PDT) + + + + + + | Component | Value | Ref Range | Performed | Pathologist | | | | | At | Signature | + + + + + + | Na | 127 (L)Comment: Testing | 135 - 145 | [facility] | | | | performed at [facility];888 | mmol/L | LABORATORY | | | | [address];[place] | | | | | | [address] | | | | + + + + + + + + | Specimen | + + | Blood | + + + + + + + | Performing | Address | City/State/Zipcode | Phone Number | | Organization | | | | + + + + + | [facility] | [address] | [place] [address] | [phone] | + + + + + Osmolality, Serum (10/11/2019 9:30 AM PDT) + + + + + + | Component | Value | Ref Range | Performed | Pathologist | | | | | At | Signature | + + + + + + | Osmolality, | 262 (L)Comment: Testing | 280 - 301 | [facility] | | | Serum | performed at [facility], [address] | mOsm/kg | LABORATORY | | | | [address], | | | | | | [place] [address] | | | | + + + + + + + + | Specimen | + + | Blood | + + + + + + + | Performing | Address | City/State/Zipcode | Phone Number | | Organization | | | | + + + + + | [facility] | [address] | [place] [address] | [phone] | + + + + + Comprehensive [...] 34 | 10 - 65 U/L | [facility] | | | | | [...] | | | performed at [facility];[address] | | | | | | [facility];[place], [place] | | | | | | [address] | | | | + + + + + + + + | Specimen | + + | Blood | + + + + + + + | Performing | Address | City/State/Zipcode | Phone Number | | Organization | | | | + + + + + | [facility] | [address] | [place] [address] | [phone] | + + + + + CBC no Differential (10/11/2019 7:18 AM PDT) + + + + + + | Component | Value | Ref Range | Performed | Pathologist | | | | | At | Signature | + + + + + + | WBC | 21.39 (H) | 3.80 - 11.00 | KT | | | | | K/uL | [...] | | | performed at [facility];[address] | | | | | | [address];[place] | | | | | | [address] | | | | + + + + + + + + | Specimen | + + | Blood | + + + + + + + | Performing | Address | City/State/Zipcode | Phone Number | | Organization | | | | + + + + + | [facility] | [address] | [place] [address] | [phone] | + + + + + Comprehensive [...] | | | performed at [facility];[address] | | | | | | [facility];[place], [place] | | | | | | [address] | | | | + + + + + + + + | Specimen | + + | Blood | + + + + + + + | Performing | Address | City/State/Zipcode | Phone Number | | Organization | | | | + + + + + | [facility] | [address] | [place] [address] | [phone] | + + + + + Magnesium (10/10/2019 4:16 AM PDT) + + + + + + | Component | Value | Ref Range | Performed | Pathologist | | | | | At | Signature | + + + + + + | Magnesium | 1.8Comment: Testing | 1.7 - 2.4 mg/dL | [facility] | | | | performed at [facility];[address] | | LABORATORY | | | | [address];[place], [place] | | | | | | [address] | | | | + + + + + + + + | Specimen | + + | Blood | + + + + + + + | Performing | Address | City/State/Zipcode | Phone Number | | Organization | | | | + + + + + | [facility] | [address] | [place] [address] | [phone] | + + + + + CBC [...] | Absolute | performed at [facility];[address] | K/uL | LABORATORY | | | | [address];[place], [place] | | | | | | [address] | | | | + + + + + + + + | Specimen | + + | Blood | + + + + + + + | Performing | Address | City/State/Zipcode | Phone Number | | Organization | | | | + + + + + | [facility] | [address] | [place] [address] | [phone] | + + + + + Lactic [...] | Serum | performed at [facility];[address] | mmol/L | LABORATORY | | | | [address];[place] | | | | | | [address] | | | | + + + + + + + + | Specimen | + + | Blood | + + + + + + + | Performing | Address | City/State/Zipcode | Phone Number | | Organization | | | | + + + + + | [facility] | [address] | [place] [address] | [phone] | + + + + + Comprehensive [...] | | | performed at [facility] | | | | | | [facility];[place], [place] | | | | | | [address] | | | | + + + + + + + + | Specimen | + + | Blood | + + + + + + + | Performing | Address | City/State/Zipcode | Phone Number | | Organization | | | | + + + + + | [facility] | [address] | [place] [address] | [phone] | + + + + + Procalcitonin [...] | | | | at [facility];[address] | | | | | | [address];[place] [address] | | | | + + + + + + + + | Specimen | + + | Blood | + + + + + + + | Performing | Address | City/State/Zipcode | Phone Number | | Organization | | | | + + + + + | [facility] | [address] | [place] [address] | [phone] | + + + + + Phosphorus (10/09/2019 5:10 AM PDT) + + + + + + | Component | Value | Ref Range | Performed | Pathologist | | | | | At | Signature | + + + + + + | Phosphorus | 4.0Comment: Testing | 2.3 - 4.8 mg/dL | [facility] | | | | performed at [facility];[address] | | LABORATORY | | | | [facility];[place], [place] | | | | | | [address] | | | | + + + + + + + + | Specimen | + + | Blood | + + + + + + + | Performing | Address | City/State/Zipcode | Phone Number | | Organization | | | | + + + + + | [facility] | [address] | [place] [address] | [phone] | + + + + + Magnesium [...] | | | performed at [facility];[address] | | LABORATORY | | | | [address];[place], [place] | | | | | | [address] | | | | + + + + + + + + | Specimen | + + | Blood | + + + + + + + | Performing | Address | City/State/Zipcode | Phone Number | | Organization | | | | + + + + + | [facility] | [address] | [place] [address] | [phone] | + + + + + CBC [...] | | | performed at [facility] | | | | | | [address];[place], [place] | | | | | | [address] | | | | + + + + + + + + | Specimen | + + | Blood | + + + + + + + | Performing | Address | City/State/Zipcode | Phone Number | | Organization | | | | + + + + + | [facility] | [address] | [place] [address] | [phone] | + + + + + POC [...] | POC | performed at [facility];[address] | | LABORATORY | | | | [address];[place] | | | | | | [address] | | | | + + + + + + + + | Specimen | + + | | + + + + + + + | Performing | Address | City/State/Zipcode | Phone Number | | Organization | | | | + + + + + | [facility] | [address] | [place] [address] | [phone] | + + + + + Phosphorus [...] | | | performed at [facility];[address] | | LABORATORY | | | | [address];[place], [place] | | | | | | [address] | | | | + + + + + + + + | Specimen | + + | Blood | + + + + + + + | Performing | Address | City/State/Zipcode | Phone Number | | Organization | | | | + + + + + | [facility] | [address] | [place] [address] | [phone] | + + + + + Magnesium (10/08/2019 5:23 PM PDT) + + + + + + | Component | Value | Ref Range | Performed | Pathologist | | | | | At | Signature | + + + + + + | Magnesium | 1.8Comment: Testing | 1.7 - 2.4 mg/dL | [facility] | | | | performed at [facility] | | LABORATORY | | | | [facility];[place], [place] | | | | | | [address] | | | | + + + + + + + + | Specimen | + + | Blood | + + + + + + + | Performing | Address | City/State/Zipcode | Phone Number | | Organization | | | | + + + + + | [facility] | [address] | [place] [address] | [phone] | + + + + + CBC [...] | | | | | [facility];[address] [place] [address] | | | | | | [address];[place] [address] | | | | + + + + + + + + | Specimen | + + | Blood | + + + + + + + | Performing | Address | City/State/Zipcode | Phone Number | | Organization | | | | + + + + + | [facility] | [address] | [place] [address] | [phone] | + + + + + Basic [...] | | | performed at [facility] | | | | | | [facility];[place], [place] | | | | | | [address] | | | | + + + + + + + + | Specimen | + + | Blood | + + + + + + + | Performing | Address | City/State/Zipcode | Phone Number | | Organization | | | | + + + + + | [facility] | [address] | [place] [address] | [phone] | + + + + + PTT [...] | | | performed at [facility];[address] | | LABORATORY | | | | [address];[place] | | | | | | [address] | | | | + + + + + + + + | Specimen | + + | Blood | + + + + + + + | Performing | Address | City/State/Zipcode | Phone Number | | Organization | | | | + + + + + | [facility] | [address] | [place] [address] | [phone] | + + + + + EDWARD CASTILLO Arterial (10/08/2019 2:04 PM PDT) + + [...] | POC | performed at [facility];[address] | g/dL | LABORATORY | | | | [address];[place] | | | | | | [address] | | | | + + + + + + + + | Specimen | + + | | + + + + + + + | Performing | Address | City/State/Zipcode | Phone Number | | Organization | | | | + + + + + | [facility] | [address] | [place] [address] | [phone] | + + + + + POC ISTAT CG8, Arterial (10/08/2019 1:22 PM PDT) + [...] | POC | performed at [facility];[address] | g/dL | LABORATORY | | | | [address];[place], [place] | | | | | | [address] | | | | + + + + + + + + | Specimen | + + | | + + + + + + + | Performing | Address | City/State/Zipcode | Phone Number | | Organization | | | | + + + + + | [facility] | [address] | [place] [address] | [phone] | + + + + + Basic [...] | >60Comment: GFR <60: | >60 | [facility] | | | GFR | [...] | | | | | performed at [facility], [address] | | | | | | [facility], | | | | | | [place] [address] | | | | + + + + + + + + | Specimen | + + | Blood | + + + + + + + | Performing | Address | City/State/Zipcode | Phone Number | | Organization | | | | + + + + + | [facility] | [address] | [place] [address] | [phone] | + + + + + CBC [...] 0.08Comment: Testing | 0.00 - 0.10 | [facility] | | | Absolute | performed at [facility], [address] | K/uL | LABORATORY | | | | [address], | | | | | | [place] [address] | | | | + + + + + + + + | Specimen | + + | Blood | + + + + + + + | Performing | Address | City/State/Zipcode | Phone Number | | Organization | | | | + + + + + | [facility] | [address] | [place] [address] | [phone] | + + + + + Magnesium (10/08/2019 5:44 AM PDT) + + + + + + | Component | Value | Ref Range | Performed | Pathologist | | | | | At | Signature | + + + + + + | Magnesium | 1.6 (L)Comment: Testing | 1.7 - 2.4 mg/dL | [facility] | | | | performed at [facility];[address] | | LABORATORY | | | | [address];[place], [place] | | | | | | [address] | | | | + + + + + + + + | Specimen | + + | Blood | + + + + + + + | Performing | Address | City/State/Zipcode | Phone Number | | Organization | | | | + + + + + | [facility] | [address] | [place] [address] | [phone] | + + + + + PTT (10/07/2019 5:21 PM PDT) + + + + + + | Component | Value | Ref Range | Performed | Pathologist | | | | | At | Signature | + + + + + + | PTT | 28Comment: Testing | 23 - 32 seconds | KT | | | | performed at [facility];[address] | | LABORATORY | | | | [address];[place] | | | | | | [address] | | | | + + + + + + + + | Specimen | + + | Blood - Artery, | | Radial, Right | + + + + + + + | Performing | Address | City/State/Zipcode | Phone Number | | Organization | | | | + + + + + | [facility] | [address] | [place] [address] | [phone] | + + + + + Protime INR (10/07/2019 5:21 PM PDT) + + + + + + | Component | Value | Ref Range | Performed | Pathologist | | | | | At | Signature | + + + + + + | INR | 1.3Comment: REFERENCE | | [facility] | | | [...] | | | performed at [facility] | | | | | | [address] [facility];[place], [place] | | | | | | [address] | | | | + + + + + + + + | Specimen | + + | Blood - Artery, | | Radial, Right | + + + + + + + | Performing | Address | City/State/Zipcode | Phone Number | | Organization | | | | + + + + + | [facility] | [address] | [place] [address] | [phone] | + + + + + Basic [...] | >60Comment: GFR <60: | >60 | [facility] | | | GFR | [...] | | | | | | MDRD IDDC traceable | | | | | | equation.Testing | | | | | | performed at [facility];[address] | | | | | | [facility];[place], [place] | | | | | | [address] | | | | + + + + + + + + | Specimen | + + | Blood - Artery, | | Radial, Right | + + + + + + + | Performing | Address | City/State/Zipcode | Phone Number | | Organization | | | | + + + + + | [facility] | [address] | [place] [address] | [phone] | + + + + + CBC [...] | | | performed at [facility];[address] | | | | | | [address];[place], [place] | | | | | | [address] | | | | + + + + + + + + | Specimen | + + | Blood - Right upper | | arm structure (body | | structure) | + + + + + + + | Performing | Address | City/State/Zipcode | Phone Number | | Organization | | | | + + + + + | [facility] | [address] | [place] [address] | [phone] | + + + + + Surgical [...] attached red-white | | | fibromembranous tissue. Paper Cup Machine Operator sections are submitted in | | | [...] | LABORATORY:The technical component was performed by [facility] | | | [place], [address] [place] [id number] (Branch Mechanic: | | | Asia Rodriguez MD; CLIA# [id number]).Professional interpretation was | | | performed by [facility], [facility], [address] | | | [place] [address] (Branch Mechanic: Solitario | | | Jacky Recio; CLIA#: [id number]). Diagnostician: Asia Rodriguez | | | MDPathologistElectronically Signed 10/10/2019 | | | | | |PERFORMING LABORATORY: | | |The technical component was performed by [facility], [address] [place] [address] (Branch Mechanic: Asia Rodriguez MD; CLIA# [id number]). | | |Professional interpretation was performed by [facility], [facility], [address] [place] [address] (Branch Mechanic: Solitario Recio M.D.; CLIA#: [id number]). | | | | | |Diagnostician: Asia [...] | POC | performed at [facility];888 | g/dL | LABORATORY | | | | [address];[place], [place] | | | | | | [address] | | | | + + + + + + + + | Specimen | + + | | + + + + + + + | Performing | Address | City/State/Zipcode | Phone Number | | Organization | | | | + + + + + | [facility] | [address] | [place] [address] | [phone] | + + + + + Red [...] | | | COMMENT | [facility];[address] | | LABORATORY | | | | Blvd;[place] [address] | | | | + + + + + + + + | Specimen | + + | | + + + + + + + | Performing | Address | City/State/Zipcode | Phone Number | | Organization | | | | + + + + + | [facility] | [address] | [place] [address] | [phone] | + + + + + POC [...] | POC | performed at [facility];888 | g/dL | LABORATORY | | | | [address];[place] | | | | | | [address] | | | | + + + + + + + + | Specimen | + + | | + + + + + + + | Performing | Address | City/State/Zipcode | Phone Number | | Organization | | | | + + + + + | [facility] | [address] | [place] [address] | [phone] | + + + + + POC MIRNA, CG8, Arterial (10/07/2019 10:47 AM PDT) + [...] | POC | performed at [facility];888 | g/dL | LABORATORY | | | | [address];[place], [place] | | | | | | [address] | | | | + + + + + + + + | Specimen | + + | | + + + + + + + | Performing | Address | City/State/Zipcode | Phone Number | | Organization | | | | + + + + + | [facility] | [address] | [place] [address] | [phone] | + + + + + POC ISLILLIE, CG8, Arterial (10/07/2019 8:40 AM PDT) + [...] 14.3Comment: Testing | 13.7 - 16.7 | [facility] | | | POC | performed at [facility];888 | g/dL | LABORATORY | | | | [address];[place], [place] | | | | | | [address] | | | | + + + + + + + + | Specimen | + + | | + + + + + + + | Performing | Address | City/State/Zipcode | Phone Number | | Organization | | | | + + + + + | [facility] | [address] | [place] [address] | [phone] | + + + + + Red [...] BANK | Testing performed at | | [facility] | | | COMMENT | [facility];[address] | | LABORATORY | | | | Blvd;[place] [address] | | | | + + + + + + + + | Specimen | + + | | + + + + + + + | Performing | Address | City/State/Zipcode | Phone Number | | Organization | | | | + + + + + | [facility] | [address] | [place] [address] | [phone] | + + + + + Magnesium [...] | | | performed at [facility];8 | | LABORATORY | | | | [facility];[place], [place] | | | | | | [address] | | | | + + + + + + + + | Specimen | + + | Blood | + + + + + + + | Performing | Address | City/State/Zipcode | Phone Number | | Organization | | | | + + + + + | [facility] | [address] | [place] [address] | [phone] | + + + + + Type [...] + + + | BB BAND | SYSTEM CONTROLLER 0630 | | [facility] | | | | | | LABORATORY | | + + + + + + | UNIT # | [id number] | | [facility] | | | | [...] + + + | UNIT # | [id number] | | [facility] | | | | [...] + + + | UNIT # | [id number] | | [facility] | | | | [...] + + + | UNIT # | [id number] | | [facility] | | | | [...] | RESULT | performed at [facility];[address] | | LABORATORY | | | | [address];[place] | | | | | | [address] | | | | + + + + + + + + | Specimen | + + | Blood | + + + + + + + | Performing | Address | City/State/Zipcode | Phone Number | | Organization | | | | + + + + + | [facility] | [address] | [place] [address] | [phone] | + + + + + Basic [...] | | | performed at [facility];[address] | | | | | | [address];[place] | | | | | | [address] | | | | + + + + + + + + | Specimen | + + | Blood | + + + + + + + | Performing | Address | City/State/Zipcode | Phone Number | | Organization | | | | + + + + + | [facility] | [address] | [place] [address] | [phone] | + + + + + CBC [...] | Absolute | performed at [facility];[address] | K/uL | LABORATORY | | | | [address];[place] | | | | | | [address] | | | | + + + + + + + + | Specimen | + + | Blood | + + + + + + + | Performing | Address | City/State/Zipcode | Phone Number | | Organization | | | | + + + + + | [facility] | [address] | [place] [address] | [phone] | + + + + + Magnesium (10/06/2019 6:27 AM PDT) + + + + + + | Component | Value | Ref Range | Performed | Pathologist | | | | | At | Signature | + + + + + + | Magnesium | 1.6 (L)Comment: Testing | 1.7 - 2.4 mg/dL | [facility] | | | | performed at [facility];[address] | | LABORATORY | | | | [address];[place] | | | | | | [address] | | | | + + + + + + + + | Specimen | + + | Blood | + + + + + + + | Performing | Address | City/State/Zipcode | Phone Number | | Organization | | | | + + + + + | [facility] | [address] | [place] [address] | [phone] | + + + + + Basic [...] | | | | | performed at [facility], [address] | | | | | | [facility], | | | | | | [place] [address] | | | | + + + + + + + + | Specimen | + + | Blood | + + + + + + + | Performing | Address | City/State/Zipcode | Phone Number | | Organization | | | | + + + + + | [facility] | [address] | [place] [address] | [phone] | + + + + + CBC [...] | | | Absolute | performed at [facility], [address] | K/uL | LABORATORY | | | | [address], | | | | | | [place] [address] | | | | + + + + + + + + | Specimen | + + | Blood | + + + + + + + | Performing | Address | City/State/Zipcode | Phone Number | | Organization | | | | + + + + + | [facility] | [address] | [place] [address] | [phone] | + + + + + Magnesium (10/05/2019 5:02 AM PDT) + + + + + + | Component | Value | Ref Range | Performed | Pathologist | | | | | At | Signature | + + + + + + | Magnesium | 1.7Comment: Testing | 1.7 - 2.4 mg/dL | [facility] | | | | performed at [facility];[address] | | LABORATORY | | | | [address];[place] | | | | | | [address] | | | | + + + + + + + + | Specimen | + + | Blood | + + + + + + + | Performing | Address | City/State/Zipcode | Phone Number | | Organization | | | | + + + + + | [facility] | [address] | [place] [address] | [phone] | + + + + + Basic [...] | | | | | performed at [facility], [address] | | | | | | [facility], | | | | | | [place] [address] | | | | + + + + + + + + | Specimen | + + | Blood | + + + + + + + | Performing | Address | City/State/Zipcode | Phone Number | | Organization | | | | + + + + + | [facility] | [address] | [place] [address] | [phone] | + + + + + CBC [...] | | | Absolute | performed at [facility], [address] | K/uL | LABORATORY | | | | [address], | | | | | | [place] [address] | | | | + + + + + + + + | Specimen | + + | Blood | + + + + + + + | Performing | Address | City/State/Zipcode | Phone Number | | Organization | | | | + + + + + | [facility] | [address] | [place] [address] | [phone] | + + + + + ECHO [...] Procedure Note | + + | Espinoza, [id number] - 10/04/2019 12:10 PM PDT | | [...] + + | Performing | Address | City/State/[facility] | Phone Number | | Organization | [...] | | | performed at [facility];[address] | | LABORATORY | | | | [address];[place] | | | | | | [address] | | | | + + + + + + + + | Specimen | + + | Tissue - Both | | anterior nares (body | | structure) | + + + + + + + | Performing | Address | City/State/Zipcode | Phone Number | | Organization | | | | + + + + + | [facility] | [address] | [place] [address] | [phone] | + + + + + Protime INR (10/04/2019 6:12 AM PDT) + + + + + + | Component | Value | Ref Range | Performed | Pathologist | | | | | At | Signature | + + + + + + | INR | 1.1Comment: REFERENCE | | [facility] | | | | RANGE:0.9 [...] | | | performed at [facility];[address] | | | | | | [address];[place] | | | | | | [address] | | | | + + + + + + + + | Specimen | + + | Blood | + + + + + + + | Performing | Address | City/State/Zipcode | Phone Number | | Organization | | | | + + + + + | [facility] | [address] | [place] [address] | [phone] | + + + + + Uric Acid (10/04/2019 4:26 AM PDT) + + + + + + | Component | Value | Ref Range | Performed | Pathologist | | | | | At | Signature | + + + + + + | Uric Acid | 3.2Comment: Testing | 3.2 - 8.6 mg/dL | [facility] | | | | performed at [facility], [address] | | LABORATORY | | | | [address], | | | | | | [place] [address] | | | | + + + + + + + + | Specimen | + + | Blood | + + + + + + + | Performing | Address | City/State/Zipcode | Phone Number | | Organization | | | | + + + + + | [facility] | [address] | [place] [address] | [phone] | + + + + + Lipid [...] | | | Calculated | performed at [facility], [address] | | LABORATORY | | | | [address], | | | | | | [place] [address] | | | | + + + + + + + + | Specimen | + + | Blood | + + + + + + + | Performing | Address | City/State/Zipcode | Phone Number | | Organization | | | | + + + + + | [facility] | [address] | [place] [address] | [phone] | + + + + + Comprehensive [...] | >60Comment: GFR <60: | >60 | [facility] | | | GFR | [...] | | | | | performed at [facility], [address] | | | | | | [facility], | | | | | | [place] [address] | | | | + + + + + + + + | Specimen | + + | Blood | + + + + + + + | Performing | Address | City/State/Zipcode | Phone Number | | Organization | | | | + + + + + | [facility] | [address] | [place] [address] | [phone] | + + + + + CBC [...] 0.08Comment: Testing | 0.00 - 0.10 | [facility] | | | Absolute | performed at [facility], [address] | K/uL | LABORATORY | | | | [address], | | | | | | [place] [address] | | | | + + + + + + + + | Specimen | + + | Blood | + + + + + + + | Performing | Address | City/State/Zipcode | Phone Number | | Organization | | | | + + + + + | [facility] | [address] | [place] [address] | [phone] | + + + + + Coronavirus [...] | | | performed at [facility] | | | | | | [address];[place], [place] | | | | | | [address] | | | | + + + + + + + + | Specimen | + + | Tissue - Entire | | nasopharynx (body | | structure) | + + + + + + + | Performing | Address | City/State/Zipcode | Phone Number | | Organization | | | | + + + + + | [facility] | [address] | [place] [address] | [phone] | + + + + + ECG [...] | | | | XIANG HART MD ([id number]) | | | | | | on [...] | | [facility] | | | | [facility];[address] | | LABORATORY | | | | Blvd;[place] [address] | | | | + + + + + + + + | Specimen | + + | Blood | + + + + + + + | Performing | Address | City/State/Zipcode | Phone Number | | Organization | | | | + + + + + | [facility] | [address] | [place] [address] | [phone] | + + + + + Comprehensive [...] | | | performed at [facility];[address] | | | | | | [address] [facility];[place], [place] | | | | | | [address] | | | | + + + + + + + + | Specimen | + + | Blood | + + + + + + + | Performing | Address | City/State/Zipcode | Phone Number | | Organization | | | | + + + + + | [facility] | [address] | [place] [address] | [phone] | + + + + + CBC [...] | Absolute | performed at [facility];[address] | K/uL | LABORATORY | | | | [address];[place] | | | | | | [address] | | | | + + + + + + + + | Specimen | + + | Blood | + + + + + + + | Performing | Address | City/State/Zipcode | Phone Number | | Organization | | | | + + + + + | [facility] | [address] | [place] [address] | [phone] | + + + + + documented [...] 20 8:37 | | | | | Wed10/04/19 at 1100 | | AM PDT | [...] | | | | | | Starting [facility] 10/12/19 at 1744 | | | | [...] | | | | First dose on [facility] 10/10/19 at 1215 | | | | | [...] | | | | | | longer, rjevnk-mny-shoqe use of | | | | | [...] | | | | | | | fdaouy-thw-nimpa use of at least | | | [...] | | | | | | | eohjgx-ten-iozlq use of at least | | | [...] | | | | First dose on Urvashi 10/05/19 at 1300 | | AM PDT | [...] | 10/10/19 | 1 patch | | Arm-Rigeyal | | 1 patch 1 patch, Transdermal, [...] | | | | Tanya 10/08/19 at 1845, For 1 dose | [...] | | | | | 10/08/19 at 1930 | | | | [...]
--- OUTSIDE RECORDS SUMMARY | ~2019-11-17 | XMS | Encounter Summary ---
Demographics + + + | Address | [address] | | | [place] [address] | + + + | Home Phone | | + + + | Preferred Language | Unknown | + + + | Marital Status | Single | + + + | Zoroastrian Affiliation | 1009 | + + + | Race | White | + + + | Ethnic Group | Not or | + + + Author + + + | Author | [facility] | | | and [place] | + + + | Organization | [facility] | | | [...] Team Providers + +------+ + | Care Bench Lay Out Technician Name | Role | Phone | [...] + + | 11/06/ | Telephone | [facility] | Magdiel Arteaga MD | Consult | | 2020 | | VASCULAR SURGERY | [address] | (Transportation / [place] | | | | [address] [place] | [facility] | Referral ) | | | | [address] [place], [place] | [place] [address] | | | | | [address] | [phone] | | | | | [phone] | | | +--------+ + + + [...] [facility] | | | | | | [id number] | | | | | | | | +--------+ + + + + | 02/06/ | Office | Vascular Surgery | Ricci De León DNP | | | 2020 | Visit | | [address] | | | | | | [place] | | | | | | [address] | | | | | | | | | | | | Magdiel Arteaga MD | | | | | | [address] | | | | | | [place] | | | | | | [place] [address] | | | | | | [phone] | | | | | | | | +--------+ + + + + documented as of this encounter Visit Diagnoses Not on filedocumented in this encounter"
--- OUTSIDE RECORDS SUMMARY | ~2019-11-17 | XMS | Encounter Summary ---
Demographics + + + | Address | [address] | | | [place] [address] | + + + | Home Phone | | + + + | Preferred Language | Unknown | + + + | Marital Status | Single | + + + | Jewish Affiliation | 1009 | + + + | Race | White | + + + | Ethnic Group | Not or | + + + Author + + + | Author | [facility] | | | and [place] | + + + | Organization | [facility] | | [...] Team Providers + +------+ + | Care Tinsel Machine Operator Name | Role | Phone [...] + + | 10/06/ | Anesthesia | [facility] | Rudolph Lowery | | | 2020 | Event | [facility] | MD [address] | | | | | OPER[address] | [address] | | | | | [address] | [place] [address] | | | | | [place], [place] | [phone] | | | | | [address] | | | | | | [phone] | | | +--------+ + + + + Anesthesia Record + + + + + | Procedure Name | Responsible | Anesthesia Start | Anesthesia Stop Time | | | Anesthesiologist | Time | | + + + + + | REPAIR | Rudolph Lowery, | 10/07/19 0722 | 10/07/19 1645 | | PSEUDOANEURYSM- | MD | | | | FEMORAL (Right ) | | | | + + + + + +----+---+ + + | Da | T | Event | Comment | | te | i | | | | | m | | | | | e | | | +----+---+ + + | 08 | 0 | An Start | Reassessment prior to anesthesia induction/procedure. | | /0 | 7 | | | | 8/ | 2 | | | | 20 | 2 | | | | 20 | | | | +----+---+ + + | | 0 | An | | | | 7 | Induction | | | | 2 | | | | | 9 | | | +----+---+ + + | | 0 | An | | | | 7 | Intubation | | | | 3 | | | | | 0 | | | +----+---+ + + | | 0 | Antibiotic | | | | 7 | Given | | | | 3 | | | | | 1 | | | +----+---+ + + | | 0 | an ene now | | | | 7 | | | | | 4 | | | | | 3 | | | +----+---+ + + | | 0 | an ene now | | | | 7 | | | | | 5 | | | | | 9 | | | +----+---+ + + | | 0 | Anesthesia | | | | 8 | Ready | | | | 0 | | | | | 2 | | | +----+---+ + + | | 0 | Antibiotic | | | | 8 | Given | | | | 1 | | | | | 0 | | | +----+---+ + + | | 0 | First | | | | 8 | Inc/Proc St | | | | 2 | | | | | 2 | | | +----+---+ + + | | 0 | [place] | | | | 8 | 43-degrees | | | | 2 | | | | | 4 | | | +----+---+ + + | | 1 | Quick Note | Surgeon prepping the left arm. All infusions and fluids running | | | 0 | | through right arm. | | | 3 | | | | | 3 | | | +----+---+ + + | | 1 | Quick Note | Surgeon opted to do an abdominal incision for better exposure. | | | 0 | | | | | 4 | | | | | 7 | | | +----+---+ + + | | 1 | Quick Note | Left leg incision by surgeon | | | 1 | | | | | 4 | | | | | 0 | | | +----+---+ + + | | 1 | Quick Note | | | | 2 | | | | | 1 | | | | | 9 | | | +----+---+ + + | | 1 | Quick Note | Right Femoral clamp applied. | | | 2 | | | | | 2 | | | | | 4 | | | +----+---+ + + | | 1 | Quick Note | Surgeon tunneling the catheter. | | | 3 | | | | | 1 | | | | | 9 | | | +----+---+ + + | | 1 | Quick Note | | | | 3 | | | | | 5 | | | | | 0 | | | +----+---+ + + | | 1 | Quick Note | Right femoral clamp removed. | | | 4 | | | | | 1 | | | | | 1 | | | +----+---+ + + | | 1 | Quick Note | Acute drop in bp, confirmed with nibp, confirmed with surgeon no | | | 4 | | change in the field. May have been secondary to administration | | | 2 | | of clindamycin to quickly. | | | 1 | | | +----+---+ + + | | 1 | Quick Note | SPV measures at 11, and BP has trended down. Will give 500mL | | | 4 | | bolus. No acute bleeding from the surgical field. If no | | | 4 | | improvement with the fluid bolus, will consider repeat istat to | | | 9 | | assess H/H. | +----+---+ + + | | 1 | Quick Note | Attempted to let patient breath with pressure support, but his | | | 5 | | heart rate and blood pressure increased dramatically and given | | | 1 | | that they have more than 1 hour left, I didn't want to start to | | | 6 | | titrate more fentanyl at this point. So I re-paralyzed and will | | | | | wait until closer to skin closer. | +----+---+ + + | | 1 | Quick Note | Drop in bp due to opening of graft to left leg. | | | 5 | | | | | 2 | | | | | 0 | | | +----+---+ + + | | 1 | Quick Note | Had sudden loss of blood pressure. I quickly assessed. No | | | 5 | | change in HR, ET Co2 or pulse ox. I asked the surgeons and they | | | 3 | | felt a femoral pulse and I felt a carotid pulse. The only thing | | | 5 | | that was done at that time was the administration of the | | | | | protamine. I flushed and rae back on the a-line and I cycled | | | | | the blood pressure cuff, had blood return from the a-line and the | | | | | blood pressure cuff came back as systolic of 40. So I quickly | | | | | gave a bolus of phenylephrine and ephedrine and increased the | | | | | phenylephrine gtt with good response. | +----+---+ + + | | 1 | Quick Note | Gave the last 10mg of protamine slowly with a less exaggerated | | | 5 | | response of a drop in blood pressure that quickly responded to | | | 4 | | phenylephrine. Likely histamine release from protamine. Will | | | 4 | | put note in allergy for patient. | +----+---+ + + | | 1 | an ene now | | | | 6 | | | | | 3 | | | | | 2 | | | +----+---+ + + | | 1 | Extubation/ | | | | 6 | Airway LDA | | | | 3 | Removal | | | | 4 | | | +----+---+ + + | | 1 | an stop | | | | 6 | data | | | | 4 | | | | | 4 | | | +----+---+ + + | | 1 | An Stop | Patient handed off to recovery nurse. | | | 4 | | | | | 5 | | | +----+---+ + + +------+ | Meds | +------+ + + + | Name | Total | + + + | midazolam 2 mg/mL | 2 mg | + + + | fentaNYL | 250 mcg | + + + | lidocaine 2% | 50 mg | + + + | lidocaine 2% | 533.17 mg | + + + | propofol | 220 mg | + + + | rocuronium | 130 mg | + + + | ePHEDrine | 50 mg | + + + | phenylephrine | 775 mcg | + + + | labetalol (TRANDATE) 5 mg/mL | 10 mg | | injection 20 mg | | + + + | esmolol | 30 mg | + + + | propofol infusion | 881.02 mg | + + + | phenylephrine | 6,445 mcg | + + + | clindamycin 600 mg | 1,200 mg | + + + | ketamine | 32.47 mg | + + + | metoprolol | 3 mg | + + + | calcium chloride injection | 1,000 mg | + + + | heparin | 8,000 Units | + + + | protamine | 30 mg | + + + | sugammadex (BRIDION) injection (2 | 200 mg | | mL vial) | | + + + | Plasmalyte | 3,500 mL | + + + | NS (Infusion) | 2,000 mL | + + + + + [...] | eral | (dorsal); Forearm; | Ian T Temitope, RN | Amanda Tim RN | | IV | [id number] catheter system; | | | | | 20 gauge; distraction; IV leaking | | | | | ; 10/11/19; 0900 | | | +--------+ + + + | Airway | Placement Date: 10/07/19; | 10/07/19729 by | 10/07/19 163 by | | | Placement Time: 729 (created via | Rudolph Lowery, | Rudolhp Lowery, | | | procedure documentation); Mask | MD | MD | | | Ventilation: EZ; Airway Grade: | | | | | 2a; Successful Technique: Mac; | | | | | Laryngoscope Blade Size: 3; | | | | | Attempts: 1; Airway Type: | | | | | endotracheal; Size: 7.5; Airway | | | | | Tube Secured At: 20; Trauma: | | | | | none; Other Equipment: stylette; | | | | | Placement Check: exhaled CO2 | | | | | detection device, bilateral chest | | | | | rise; Removal Date: 10/07/19; | | | | | Removal Time: 1633; Additional | | | | | Comments: No issues with | | | | | intubation. ET tube placed | | | | | atraumatically with preservation | | | | | of oral structures in their | | | | | pre-operative state. | | | +--------+ + + + | Urethr | 10/07/19; 0733; indicated due to | 10/07/19 0733 by | 10/09/19 2338 by | | al | specific surgical procedure; All | Beverley L | Moreno Catalan RN | | Cathet [...] + + + | Periph | 10/07/19; 075 (created via | 10/07/19749 by | 10/09/19 0000 by | | [...] + + + | Arteri | 10/07/19; 075 (created via | 10/07/19 0753 by | [...] + + + | Drain/ | 10/07/19; 1531; Right; (groin); | 10/07/19 1531 by | 10/07/19 1649 by | | Device | gravity; duplicate entry; | Beverley Logan | Aleisha Jorge, | | Site | 10/07/19; 1649 | HARRISON Flanagan | RN | +--------+ + + + | Drain/ | 10/07/19; 1532; #3; Right; | 10/07/19 1532 by | 10/11/19 0900 by | | Device | gravity; removed in past; | Beverley Logan | Kathie Llamas RN | | Site | 10/11/19; 0900 (not present upon | HARRISON Flanagan | | | | arrival) | | | +--------+ + + + | Drain/ | 10/07/19; 1534; #2; Right; | 10/07/19 1534 by | 10/11/19 0900 by | | Device | (groin); gravity; removed in | Beverley Logan | Kathie Llamas RN | | Site | past; 10/11/19; 0900 (not present Maile Flanagan RN | | | | upon arrival) | [...] encounter OR Notes Anesthesia Postprocedure Evaluation - Rudolph Lowery MD - 10/07/2019 4:54 PM PDTFor matting of this note might be different from the original. ANESTHESIA POSTANESTHESIA EVALUATION Jairo Theodore 59 y.o. male 1960 [id number] Procedure(s) REPAIR PSEUDOANEURYSM- FEMORAL (Right ) Cooperates? Yes Mental Status Performs simple tasks. Respiratory Satisfactory - Airway patent (self maintained). Cardiovascular Satisfactory - Blood pressure and heart rate acceptable Temperature Satisfactory Pain Satisfactory N/V Control Satisfactory Hydration Satisfactory - No signs of dehydration Adverse Events ADVERSE EVENTS: No adverse events Vitals Value Taken Time Temp 36.5 C (97.7 F) 10/07/19 1642 Pulse 94 10/07/19 1652 Resp 18 10/07/19 1652 BP 136/68 10/07/19 1650 Arterial Line BP 131/77 10/07/19 1652 Arterial Line BP 2 SpO2 100 % 10/07/19 1652 Vitals shown include unvalidated device data. Electronically signed by Rudolph Lowery MD 10/07/2019 4:54 PM PDT [facility] Rudolph Lowery MD at 10/06 4:54 PM PDTAnesthesia Procedure Rudolph Chavez MD - 10/07/2019 8:39 A M PDTAssociated Order(s): PIV Intravenous Line Placement 10/07/2019 7:56 AM Indication: routine Preparation: alcohol patient was: under GA Side: right Orientation: proximal and medial Vein location: forearm Size: 18 g Localization technique: landmark Securement: transparent dressing Placed by: Rudolph Lowery MD Authorizing provider: Rudolph Lowery MD Please see intraoperative grid for any additional medication documentation. nesthesia Proce Rudolph Lozano MD - 10/07/2019 8:35 AM PDTAssociated Order(s): PIV Intravenous Line Placement 10/07/2019 7:50 AM Indication: routine Preparation: alcohol patient was: under GA Side: left Orientation: posterior (dorsal) Vein location: wrist Size: 18 g Localization technique: landmark Securement: transparent dressing and tape Placed by: Rudolph Lowery MD Authorizing provider: Rudolph Lowery MD Please see intraoperative grid for any additional medication documentation. nesthesia Rudolph Lord MD - 10/07/2019 8:34 AM PDTAssociated Order(s): AirwayAn esthesia Airway Placement 10/07/2019 7:30 AM Preprocedure check: patient identified, suction, airway equipment checked, oxygen, airway a ssessed and patient reassessment prior to induction Mask ventilation: easy Successful technique: Mac Laryngoscope blade size: 3 Airway grade: 2a (Partial view of glottis) Other equipment: stylette Attempts: 1 Airway type: endotracheal Size: 7.5 Cuffed: cuffed Route, reference point: right side of mouth (secured to the right side using a mask ties gi oneyda the patients large bushy che. ) Tube depth: 20 cm Tube secured with: adhesive tape Trauma: none Tube placement verification: bilateral chest rise and carbon dioxide detection Performing provider: Rudolph Lowery MD Authorizing provider: Rudolph Lowery MD Comments: No issues with intubation. ET tube placed atraumatically with preservation of oral structures in their pre-operative state. Please see intraoperative grid for any additional medication documentation. nesthesia Proce mable Notes - Rudolph Lowery MD - 10/07/2019 8:31 AM PDTAssociated Order(s): ALineArt erial Line Placement 10/07/2019 7:53 AM Indication: continuous blood pressure monitoring and acid-base/laboratory analysis Prep solution: alcohol Patient was: under GA Laterality: right Artery:radial Size: 20 g Localization technique: ultrasound Securement: transparent dressing, arm board and tape (mastisol) Performed by: Rudolph Lowery MD Authorizing provider: Rudolph Lowery MD Comments: Procedure performed by Dr. Arteaga, after [address] Lowery on the left arm. 1st attempt got flash and it threaded, but when the catheter was hubbed there was no return of blood or waveform, 2nd attempt was more proximal, again threaded catheter but no waveform or pulsatile flow back. Both attempts done under ultrasound. At this point, Dr Walter Lowery asked Dr. Arteaga to try. He opted for placement in the other arm, single attempt with ultrasound. No complications. Patient consented for a-line placement prior to anesthe franco. After induction of GA, patient arm was secured in preparation for procedure. Artery was identified with ultrasound.. Area was prepped with ETOH wipe. Under direct visualizati on, 20 Gauge angiocath/needle was inserted into artery with confirmation of arterial blood with subsequent advancement of wire into artery. Using seldinger technique 20 gauge angioca th was advanced over needle and wire into artery. Proper placement was confirmed with posit lance blood return through angiocath and waveform tracing on the monitor. Catheter was secure d in usual fashion. No issues with procedure. Please see intraoperative grid for any additional medication documentation. nesthesia Prepr ocedure Evaluation - Rudolph Lowery MD - 10/07/2019 6:43 AM PDTFormatting of this no te might be different from the original. ANESTHESIA PREANESTHESIA EVALUATION Jairo Theodore 59 y.o. male 1960 [id number] Procedure(s): REPAIR PSEUDOANEURYSM- FEMORAL (Right ) Medical,anesthesia, [...] who presents as a tra nsfer from [facility] ED for pseudoaneurysm of the right [...] hemodynamic monitoring. documented in th is encounter Miscellaneous Notes Anesthesia Post-op Handoff - Rudolph Lowery MD - 10/07/2019 4:45 PM PDTFormatting o f this note might be different from the original. ANESTHESIA HANDOFF NOTE Jairo Theodore 59 y.o. male 1960 [id number] REPAIR PSEUDOANEURYSM- FEMORAL (Right ) HANDOFF NOTE Handoff Protocol Used: post-procedure [...] receiving team Patient Location: Phase I Condition: alert, awake and oriented Airway/O2: face mask with O2 Multimodal analgesia: multimodal analgesia used between 6 hours prior to anesthesia start t o PACU discharge Comments: Patient stable on 25mcg/min of phenylephrine. Stable. Plan to go to floor 9. W ill get rainbow panel of labs per Dr. Arteaga's request to check h/h and bmp and coags. The significant anesthesia concerns and VS in Epic were reviewed with the receiving team. Rudolph Lowery MD 10/07/2019 4:45 PM PDT [facility] Rudolph Lowery MD at 10/06 4:46 PM PDTdocumented in this encounter Plan of Treatment +--------+ + + + + | Date | Type | Specialty | Care Team | Description | +--------+ + + + + | 02/06/ | Appointment | Radiology | Ricci De León DNP | | | 2019 | | | [address] | | | | | | [place] | | | | | | [address] | | | | | | | | +--------+ + + + + | 02/06/ | Office | Vascular Surgery | Ricci De León DNP | | 2019 | Visit | | [address] | | | | | | [place] | | | | | | [address] | | | | | | | | | | | | Magdiel Arteaga MD | | | | | | [address] | | | | | | [place] [facility] | | | | | | [place] [address] | | | | | | [phone] | | | | | | | [...] + + documented in this encounter Results PIV (10/07/2019 8:39 AM PDT) + + [...] Procedure | | | performed by Dr. Atreaga, after [address] Lowery [...] electrolytes in water | New Bag | 10/07/19 | | | | | (PLASMALYTE-148/NORMOSOL-R) | | 20 7:48 | | | | | infusion Intravenous, CONTINUOUS | | AM PDT | | | | | PRN, Starting 10/07/19 at | | | | | | | 0722, Anesthesia Intra-op | | | | | | + +---------+ +------+------+------+ +---------+ +---+---+---+ | New Bag | 10/07/19 | | | | | | 20 7:22 | | | | | | AM PDT | | | | +---------+ +---+---+---+ +---+---+ | | | +---+---+ + +-------+ +--------+---+---+ | calcium chloride injection | Given | 10/07/19 | 200 mg | | | | PRN, Starting 10/07/19 at 1105, | | 20 11:29 | | | | | Anesthesia Intra-op | | AM PDT | | | | + +-------+ +--------+---+---+ +-------+ +--------+---+---+ | Given | 10/07/19 | 200 mg | | | | | 20 11:25 | | | | | | AM PDT | | | | +-------+ +--------+---+---+ | Given | 10/07/19 | 200 mg | | | | | 20 11:16 | | | | | | AM PDT | | | | +-------+ +--------+---+---+ +---+---+ | | | +---+---+ + +-------+ +--------+---+---+ | clindamycin in dextrose | Given | 10/07/19 | 600 mg | | | | (CLEOCIN) IVPB Intravenous, | | 20 2:15 | | | | | Administer over 30 Minutes, PRN, | | PM PDT | | | | | Starting 10/07/19 at 0810, | | | | | | | Anesthesia Intra-op | | | | | | + +-------+ +--------+---+---+ +-------+ +--------+---+---+ | Given | 10/07/19 | 600 mg | | | | | 20 8:10 | | | | | | AM PDT | | | | +-------+ +--------+---+---+ +---+---+ | | | +---+---+ + +-------+ +-------+---+---+ | ePHEDrine 5 mg/mL injection | Given | 10/07/19 | 15 mg | | | | Intravenous, PRN, Starting Sat | | 20 3:39 | | | | | 10/07/19 at 0810, Anesthesia | | PM PDT | | | | | Intra-op | | | | | | + +-------+ +-------+---+---+ +-------+ +-------+---+---+ | Given | 10/07/19 | 10 mg | | | | | 20 2:23 | | | | | | PM PDT | | | | +-------+ +-------+---+---+ | Given | 10/07/19 | 15 mg | | | | | 20 8:11 | | | | | | AM PDT | | | | +-------+ +-------+---+---+ +---+---+ | | | +---+---+ + +-------+ +-------+---+---+ | esmolol (BREVIBLOC) 10 mg/mL | Given | 10/07/19 | 30 mg | | | | injection Intravenous, PRN, | | 20 7:30 | | | | | Starting 10/07/19 at 0730, | | AM PDT | | | | | Anesthesia Intra-op | | | | | | + +-------+ +-------+---+---+ +---+---+ | | | +---+---+ + +-------+ +--------+---+---+ | fentaNYL (PF) injection | Given | 10/07/19 | 50 mcg | | | | Intravenous, PRN, Starting Sat | | 20 4:08 | | | | | 10/07/19 at 0806, Anesthesia | | PM PDT | | | | | Intra-op | | | | | | + +-------+ +--------+---+---+ +-------+ +--------+---+---+ | Given | 10/07/19 | 25 mcg | | | | | 20 3:30 | | | | | | PM PDT | | | | +-------+ +--------+---+---+ | Given | 10/07/19 | 25 mcg | | | | | 20 11:36 | | | | | | AM PDT | | | | +-------+ +--------+---+---+ +---+---+ | | | +---+---+ + +-------+ +--------+---+---+ | heparin 1,000 units/mL | Given | 10/07/19 | 1,000 | | | | injection Intravenous, PRN, | | 20 2:29 | Units | | | | Starting 10/07/19 at 1220, | | PM PDT | | | | | Anesthesia Intra-op | | | | | | + +-------+ +--------+---+---+ +-------+ +--------+---+---+ | Given | 10/07/19 | 1,000 | | | | | 20 1:25 | Units | | | | | PM PDT | | | | +-------+ +--------+---+---+ | Given | 10/07/19 | 1,000 | | | | | 20 1:10 | Units | | | | | PM PDT | | | | +-------+ +--------+---+---+ +---+---+ | | | +---+---+ + + + + +-------+---+ | ketamine 100 mg/mL injection | Rate/Dos | 10/07/19 | 0.5 | 0.1 | | | Intravenous, CONTINUOUS PRN, | e Change | 20 1:24 | mcg/kg/m | mL/hr | | | Starting 10/07/19 at 0759, | | PM PDT | in | | | | Anesthesia Intra-op | | | | | | + + + + +-------+---+ + + + +-------+---+ | Rate/Dose Change | 10/07/19 | 1 | 0.1 | | | | 20 12:05 | mcg/kg/m | mL/hr | | | | PM PDT | in | | | + + + +-------+---+ | Rate/Dose Change | 10/07/19 | 1.5 | 0.1 | | | | 20 8:54 | mcg/kg/m | mL/hr | | | | AM PDT | in | | | + + + +-------+---+ +---+---+ | | | +---+---+ + +-------+ [...] +-------+---+---+ +---+---+ | | | +---+---+ + + + +-------+---------+---+ | lidocaine (PF) 2% injection | Restarte | 10/07/19 | 100 | 5 mL/hr | | | Intravenous, CONTINUOUS PRN, | d | 20 4:01 | mg/hr | | | | Starting 10/07/19 at 0759, | | PM PDT | | | | | Anesthesia Intra-op | | | | | | + + + +-------+---------+---+ + + + +---------+---+ | Rate/Dose Change | 10/07/19 | 50 mg/hr | 2.5 | | | | 20 3:04 | | mL/hr | | | | PM PDT | | | | + + + +---------+---+ | Rate/Dose Change | 10/07/19 | 60 mg/hr | 3 mL/hr | | | | 20 11:35 | | | | | | AM PDT | | | | + + + +---------+---+ +---+---+ | | | +---+---+ + +-------+ +-------+---+---+ | lidocaine (PF) 2% injection | Given | 10/07/19 | 50 mg | | | | Intravenous, PRN, Starting Sat | | 20 7:27 | | | | | 10/07/19 at 0727, Anesthesia | | AM PDT | | | | | Intra-op | | | | | | + +-------+ +-------+---+---+ +---+---+ | | | +---+---+ + +-------+ +------+---+---+ | metoprolol tartrate (LOPRESSOR) | Given | 10/07/19 | 1 mg | | | | injection Intravenous, PRN, | | 20 4:00 | | | | | Starting 10/07/19 at 1055, | | PM PDT | | | | | Anesthesia Intra-op | | | | | | + +-------+ +------+---+---+ +-------+ +------+---+---+ | Given | 10/07/19 | 1 mg | | | | | 20 3:30 | | | | | | PM PDT | | | | +-------+ +------+---+---+ | Given | 10/07/19 | 1 mg | | | | | 20 10:55 | | | | | | AM PDT | | | | +-------+ +------+---+---+ +---+---+ | | | +---+---+ + +-------+ +------+---+---+ | midazolam (VERSED) 1 mg/mL | Given | 10/07/19 | 2 mg | | | | injection Intravenous, PRN, | | 20 7:23 | | | | | Starting 10/07/19 at 0723, | | AM PDT | | | | | Anesthesia Intra-op | | | | | | + +-------+ +------+---+---+ +---+---+ | | | +---+---+ + +-------+ +---------+---+---+ | phenylephrine (SHEEBA-SYNEPHRINE, | Given | 10/07/19 | 200 mcg | | | | VAZCULEP) 10 mg per mL injection | | 20 4:32 | | | | | Intravenous, PRN, Starting Sat | | PM PDT | | | | | 10/07/19 at 1233, Anesthesia | | | | | | | Intra-op | | | | | | + +-------+ +---------+---+---+ +-------+ +---------+---+---+ | Given | 10/07/19 | 100 mcg | | | | | 20 4:09 | | | | | | PM PDT | | | | +-------+ +---------+---+---+ | Given | 10/07/19 | 100 mcg | | | | | 20 3:37 | | | | | | PM PDT | | | | +-------+ +---------+---+---+ +---+---+ | | | +---+---+ + + + +---------+-------+---+ | phenylephrine (SHEEBA-SYNEPHRINE, | Rate/Dos | 10/07/19 | 30 | 0.2 | | | VAZCULEP) 10 mg/mL injection | e Change | 20 4:32 | mcg/min | mL/hr | | | Intravenous, CONTINUOUS PRN, | | PM PDT | | | | | Starting 10/07/19 at 0807, | | | | | | | Anesthesia Intra-op | | | | | | + + + +---------+-------+---+ + + +---------+-------+---+ | Rate/Dose Change | 10/07/19 | 15 | 0.1 | | | | 20 4:25 | mcg/min | mL/hr | | | | PM PDT | | | | + + +---------+-------+---+ | Rate/Dose Change | 10/07/19 | 20 | 0.1 | | | | 20 4:24 | mcg/min | mL/hr | | | | PM PDT | | | | + + +---------+-------+---+ +---+---+ | | | +---+---+ + +-------+ +-------+---+---+ | propofol (DIPRIVAN) injection | Given | 10/07/19 | 20 mg | | | | Intravenous, PRN, Starting Sat | | 20 4:07 | | | | | 10/07/19 at 0805, Anesthesia | | PM PDT | | | | | Intra-op | | | | | | + +-------+ +-------+---+---+ +-------+ +-------+---+---+ | Given | 10/07/19 | 50 mg | | | | | 20 8:15 | | | | | | AM PDT | | | | +-------+ +-------+---+---+ | Given | 10/07/19 | 50 mg | | | | | 20 8:05 | | | | | | AM PDT | | | | +-------+ +-------+---+---+ +---+---+ | | | +---+---+ + + + + +-------+---+ | propofol infusion (DIPRIVAN) 10 | Rate/Dos | 10/07/19 | 25 | 8.1 | | | mg/mL infusion Intravenous, | e Change | 20 1:15 | mcg/kg/m | mL/hr | | | CONTINUOUS PRN, Starting Sat | | PM PDT | in | | | | 10/07/19 at 0759, Anesthesia | | | | | | | Intra-op | | | | | | + + + + +-------+---+ + + + + +---+ | Rate/Dose Change | 10/07/19 | 30 | 9.8 | | | | 20 11:11 | mcg/kg/m | mL/hr | | | | AM PDT | in | | | + + + + +---+ | Rate/Dose Change | 10/07/19 | 40 | 13 mL/hr | | | | 20 10:19 | mcg/kg/m | | | | | AM PDT | in | | | + + + + +---+ +---+---+ | | | +---+---+ + +-------+ +------+---+---+ | protamine injection | Given | 10/07/19 | 5 mg | | | | Intravenous, PRN, Starting Sat | | 20 3:42 | | | | | 10/07/19 at 1527, Anesthesia | | PM PDT | | | | | Intra-op | | | | | | + +-------+ +------+---+---+ +-------+ +-------+---+---+ | Given | 10/07/19 | 5 mg | | | | | 20 3:39 | | | | | | PM PDT | | | | +-------+ +-------+---+---+ | Given | 10/07/19 | 10 mg | | | | | 20 3:33 | | | | | | PM PDT | | | | +-------+ +-------+---+---+ +---+---+ | | | +---+---+ + +---------+ +---+---+---+ | Red Blood Cells | New Bag | 10/07/19 | | | | | (PRBC-INTRAOP)-Transfuse | | 20 12:41 | | | | | | | PM PDT | | | | + +---------+ +---+---+---+ +---+---+ | | | +---+---+ + +---------+ +---+---+---+ | Red Blood Cells | New Bag | 10/07/19 | | | | | (PRBC-INTRAOP)-Transfuse | | 20 1:01 | | | | | | | PM PDT | | | | + +---------+ +---+---+---+ +---+---+ | | | +---+---+ + +-------+ +-------+---+---+ | rocuronium (ZEMURON) injection | Given | 10/07/19 | 10 mg | | | | Intravenous, PRN, Starting Sat | | 20 3:14 | | | | | 10/07/19 at 0755, Anesthesia | | PM PDT | | | | | Intra-op | | | | | | + +-------+ +-------+---+---+ +-------+ +-------+---+---+ | Given | 10/07/19 | 10 mg | | | | | 20 2:17 | | | | | | PM PDT | | | | +-------+ +-------+---+---+ | Given | 10/07/19 | 10 mg | | | | | 20 1:17 | | | | | | PM PDT | | | | +-------+ +-------+---+---+ +---+---+ | | | +---+---+ + +---------+ +---+---+---+ | sodium chloride 0.9% (NS) | New Bag | 10/07/19 | | | | | infusion Intravenous, CONTINUOUS | | 20 7:59 | | | | | PRN, Starting 10/07/19 at | | AM PDT | | | | | 0759, Anesthesia Intra-op | | | | | | + +---------+ +---+---+---+ +---+---+ | | | +---+---+ + +-------+ +--------+---+---+ | sugammadex (BRIDION) injection | Given | 10/07/19 | 200 mg | | | | PRN, Starting 10/07/19 at | | 20 4:13 | | | | | 1613, Anesthesia Intra-op | | PM PDT | | | | + +-------+ +--------+---+---+ +---+---+ | | | +---+---+ documented in this encounter"
--- OUTSIDE RECORDS SUMMARY | ~2019-11-17 | XMS | Encounter Summary ---
Demographics + + + | Address | [address] | | | [place] [address] | + + + | Home Phone | | + + + | Preferred Language | Unknown | + + + | Marital Status | Single | + + + | Gnosticist Affiliation | [id number] | + + + | Race | White | + + + | Ethnic Group | Not or | + + + Author + + + | Author | [facility] | | | and [place] | + + + | Organization | [facility] | | | [...] Team Providers + +------+ + | Care Medical Communication Specialist Name | Role | Phone | [...] Provider Unknown | | | | | [place] | | | | | | [phone] | (Fax) | | | | | [phone] | | | +--------+ + + + [...] [place] | | | | | | [address] | | | | | | | | +--------+ + + + + | 02/06/ | Office | Vascular Surgery | Ricci De León DNP | | | 2019 | Visit | | [address] | | | | | | [place] | | | | | | [address] | | | | | | | | | | | | Magdiel Arteaga MD | | | | | | [address] | | | | | | [facility] | | | | | | [place] [address] | | | | | | [phone] | | | | | | | [...]
--- OUTSIDE RECORDS SUMMARY | ~2019-11-17 | XMS | Encounter Summary ---
Demographics + + + | Address | [address] | | | [place] [address] | + + + | Home Phone | | + + + | Preferred Language | Unknown | + + + | Marital Status | Single | + + + | Mosque Affiliation | BAP | + + + | Race | White | + + + | Ethnic Group | Not or | + + + Author + + + | Author | [facility] | + + + | Organization | [facility] | + + + | Address | Unknown | + + + | Phone | Unavailable | + + + Support + + +---------+ + | Name | Relationship | Address | Phone | + + +---------+ + | Lele Conley | ECON | Unknown | | + + +---------+ + Care Team Providers + +------+ + | Care Cabin Service Agent Name | Role | Phone | [...] | | | | | [place], | | | | | | [place] [phone] | | | +--------+ + + + [...] Anesthesia PostO p Report Patient: LARRY THEODORE [facility] Rec: [id number] Sex M Bdate: 1960 Date/Time Data Entered Into [facility] Anesth PostOp Surgery Date [id number] 05/02/07 12:07 Anesthesiologist NOEL CASH 05/02/07 12:07 [...] | + + | 05/02/2007 12:07 PM [facility] Anesthesia PostOp Report | | | | Patient: LARRY THEODORE [facility] Rec: [id number] Sex M Bdate: 1960 | | Date/Time Data | | Entered Into [facility] | | Anesth PostOp | | Surgery Date [id number] 05/02/07 12:07 | | Anesthesiologist NOEL CASH 05/02/07 12:07 | | | + + documented in this encounter Visit Diagnoses Not on filedocumented in this encounter"
--- OUTSIDE RECORDS SUMMARY | ~2019-11-17 | XMS | Clinical Summary ---
Demographics + + + | Address | [address] | | | [place] [address] | + + + | Home Phone [...] Team Providers + +------+ + | Care Field Service Specialist Name | Role | Phone | + +------+ + | No Pcp Per Patient | PCP | Unavailable | + +------+ + Source Comments [facility] is fully live on both [facility] and [facility] Allergies Not on File Medications + + [...] + +--------+ | MEDICARE | MEDICA | [id number] | 04/30/19 | [phone] | [address] | [address] | | | RE A & | | 08-Pre | [phone] | [address] | | | [address] | | sent | | [place], [place] | | | | | | | | [address] | | + +--------+ +--------+ + +--------+ | COMPENSATION AND BENEFITS ANALYST MEDICAID | COMPENSATION AND BENEFITS ANALYST | [id number] | 10/31/19 | | | Medica | [...] | | | 0 (Home) | [place] [address] | + +--------+ +--------+ + +"
--- OUTSIDE RECORDS SUMMARY | ~2019-11-17 | XMS | Encounter Summary ---
Demographics + + + | Address | [address] | | | [place] [address] | + + + | Home Phone [...] Author + + + | Author | [facility] | | | and [place] | + + + | Organization | [facility] | | | [...] Team Providers + +------+ + | Care Bill Cutter Name | Role | Phone | + [...] + + | 10/06/ | Surgery | [facility] | Magdiel Arteaga MD | REPAIR | | 2019 | | [facility] | [address] | [place]- | | | | OPERATING RO[address] | [address] | FEMORAL | | | [address] | [place] [address] | | | | | [place], [place] | [phone] | | | | | [address] | | | | | | [phone] | | | +--------+---------+ + + + [...] GRAFT FEMORAL-POPLITEAL (Bilateral) ANGIOGRAM - EXTREMITY BILATERAL (59788) (Bilateral) Chief Complaint: No chief complaint on [...] who was admitted on 10/03/2019 Transfer from [facility] with bilateral hip and pelvic burning [...] have wound check in 2 weeks wit [facility] to provide transportation, continue with aspirin 81 mg daily, Plavix 75 mg daily, atorv astatin 40 mg daily. Active Problems: Alcohol abuse/ Tobacco abuse advised to stop smoking and drinking Cellulitis of right foot has been completely treated with Augmentin while in the hospital Discharge Information: Follow up: Teresita Bob MD [address] [facility] [address] Follow up for Home health Wound Care [facility] [address] [phone] Follow up Wound Care and Physical [...] you recover. Don t drive for at [id number] after your surgery or while you are [...] better overnight Chest pain or trouble breathing Profista last reviewed this educational content on 11/29/201819993286-1712 [employer]. [address] [place] [address]. All righ ts reserved. This information is [...] of developing AAA decreases. To learn more Smokefree.gov/hffr-rn-zm-expert National Cancer [place] Smoking Quitline:977-04D-AFLL (924-728-8041) [employer]ista last reviewed this educational content on 12/30/201819990227-8578 [employer]. [address] [place] [address], [place] [address]. All righ ts reserved. This information is [...] find a support program: Free national quitline 070-UZFM-FLL (840-128-2916) [facility] quit-smoking programs [employer] [place] Lung Association 100-191-1150 [place] Cancer Society 833-184-6440 Support at home is important too. Family and friends can offer praise and reassurance. If t he smoker in your life finds it hard to quit, encourage them to keep trying. Try vdxw-vib-ivhoule medicine Nicotine replacement therapymay make iteasier to [...] to quit smoking, try these resources: www.cdc.gov/tobacco/quit_smoking/ 394-XROZ-JEL (370-455-0254) www.smokefree.gov 514-16I-XJGY (254-871-0355) www.lung.org/stop-smoking/ 800-LUNGUSA (863-104-1778) Herve lynn reviewed this educational content on 01/29/201919995223-5719 [employer]. [address] [place] [address]. All righ ts reserved. This information is [...] PA- C - 10/16/2019 7:20 AM PDT [facility] Service: Vascular Surgery Progress Note Hospital Day: LOS: 13 days Post-Op Day: 11/06 SUBJECTIVE Patient Summary: The patient is a 59 y.o. 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 He unde rwent aortobifemoral bypass in [...] scan which revealed enlargement of known right NOVELTY TWISTER OPERATOR pseudoaneurysm. He was transferred to [facility] for evaluation and Vascular was consulted for [...] importance of following up with our office usp. Still recommend discharge ho me with assist [...] 10/15/2019 10:30 AM PDT . Jairo Theodore [id number] Hospital Day: 12 SUBJECTIVE Events Overnight: Patient [...] been in touch with his Merrill, Lele [phone] and he did not want me to [...] and management as well as Computerized Physician Official Court Reporter. Dictation software, Probki [employer] okna, used which may contain error for similar sounding words even af ter review. Portions of this chart may have been copied from previous notes for continuity of care. 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 He unde rwent aortobifemoral bypass in [...] scan which revealed enlargement of known right NOVELTY TWISTER OPERATOR pseudoaneurysm. He was transferred to [facility] for evaluation and Vascular was consulted for [...] with any neurovascular changes. [facility] with management of this patient. [...] - 10/14/2019 9:23 AM PDT Jairo Theodore [id number] Hospital Day: 11 SUBJECTIVE Events Overnight: Patient [...] been in touch with his Merrill, Lele [phone] and he did not want me to [...] and management as well as Computerized Physician Official Court Reporter. Dictation software, Probki [employer] okna, used which may contain error for similar sounding words even af ter review. Portions of this chart may have been copied from previous notes for continuity of care. 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 He unde rwent aortobifemoral bypass in [...] scan which revealed enlargement of known right NOVELTY TWISTER OPERATOR pseudoaneurysm. 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 He unde rwent aortobifemoral bypass in [...] scan which revealed enlargement of known right NOVELTY TWISTER OPERATOR pseudoaneurysm. He was transferred to [facility] for evaluation and Vascular was consulted for [...] different from t wyatt original. Jairo Theodore [id number] Hospital Day: 10 SUBJECTIVE Events Overnight: Patient [...] been in touch with his Merrill, Lele [phone] and he did not want me to [...] and management as well as Computerized Physician Official Court Reporter. Dictation software, Probki Iz okna, used which may contain error for similar [...] different from the orig inal. Jairo Theodore [id number] Hospital Day: 9 SUBJECTIVE Events Overnight: Patient [...] been in touch with his Merrill, Lele [phone] and he did not want me to [...] and management as well as Computerized Physician Official Court Reporter. Dictation software, Probki Iz okna, used which may contain error for similar sounding words even af ter review. Portions of this chart may have been copied from previous notes for continuity of care. 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 He unde rwent aortobifemoral bypass in [...] scan which revealed enlargement of known right NOVELTY TWISTER OPERATOR pseudoaneurysm. He was transferred to [facility] for evaluation and Vascular was consulted for [...] Color, UA YELLOW Clarity, Urine CLEAR Specific [place], Urine 1.008 1.002 - 1.030 Leukocyte esterase, [...] BANK. BLOOD BANK COMMENT Testing performed at [facility];[address] [place] [address] Type and Screen Collection Time: 10/12/19 7:52 AM Result Value Ref Range ABO Rh A POSITIVE Antibody Screen NEGATIVE BB BAND [id number] BB BAND Testing performed at [facility];[address] [place] [address] UNIT # [id number] Product Code LEUKODEPLETED PC Unit Division 00 Unit Status ALLOCATED Transfusion Status OK TO TRANSFUSE CROSSMATCH RESULT COMPATIBLE UNIT # [id number] Product Code LEUKODEPLETED PC Unit Division 00 [...] to chair with feet elevated. Please call [facility] any neurovascular changes. Appreciate hospitalitis assistance [...] from the originluis rebollar Jairo Kwaku Theodore [id number] Hospital Day: 8 SUBJECTIVE Events Overnight: Patient [...] been in touch with his Merrill, Lele [phone] and he did not want me to [...] and management as well as Computerized Physician Official Court Reporter. Dictation software, Probki Iz okna, used which may contain error for similar sounding words even af ter review. Portions of this chart may have been copied from previous notes for continuity of care. 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 He unde rwent aortobifemoral bypass in [...] scan which revealed enlargement of known right NOVELTY TWISTER OPERATOR pseudoaneurysm. He was transferred to [facility] for evaluation and Vascular was consulted for [...] PO medications. 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 He unde rwent aortobifemoral bypass in [...] scan which revealed enlargement of known right NOVELTY TWISTER OPERATOR pseudoaneurysm. He was transferred to [facility] for evaluation and Vascular was consulted for [...] might be different from the or iginal. [facility] Service: Mangle Roll Operator Progress Note Jairo Kwaku Theodore 59 y.o. [...] He was farnsworth sferred on 10/03/2019 from [facility] for right foot swelling and increase [...] procedures. Tyler Elias MD 10/10/2019 Dictation software, Probki Iz okna, was used which may contain error with similar sound words even after review. Portions of this chart may have been copied from previous notes for continuity of care. aniella Coleman RN - 10/09/2019 10:20 AM PDTFamily/ care rep updated by pt. 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 He unde rwent aortobifemoral bypass in [...] scan which revealed enlargement of known right NOVELTY TWISTER OPERATOR pseudoaneurysm. He was transferred to [facility] for evaluation and Vascular was consulted for [...] Gr MD - 10/09/2019 1:28 AM PDT [facility] Service: Mangle Roll Operator Progress Note Jairo Theodore 59 y.o. Hospital [...] He was farnsworth sferred on 10/03/2019 from [facility] for right foot swelling and increase [...] procedures. Julian Gr MD 10/09/2019 Dictation software, Probki Iz okna, was used which may contain error with [...] by vascular surgery. R eport given to GLOBE CHANGER. Pt safely transferred to room 32361. Incisions and dressings were teresa an and dry. Post tib and pedal pulses dopplerable. JADA SHINE RN Chyna Rashid MD - 10/08/2019 4:07 PM PDT [facility] Service: Hospitalist Progress Note Hospital Day: LOS: 5 days SUBJECTIVE Patient Summary: Mr. Theodore is a 59 yr old man active smoker 1ppday with alcohol abuse, hx of PAD, s/p right aorto bifemoral bypass in 1999 complicated by pseudoaneurysm, s/p revision, was transferred from [facility] ED for right foot swelling and increasing [...] endarterectomy, right to left femoral [facility]. Patient had an EBL of [...] obtained. Magdiel Arteaga MD Vascular Surgery Jada Wilknis RN - 10/07/2019 7:45 PM PDTPt arrived at 1800. SBPs in 70-80s upon arrival. N eo increased to 50mcg. Pedal pulses remain absent. Post tib pulses dopplerable. Medicated fo r pain with PRN tylenol. Remains on RA. HR 90-110s. JADA SHINE RN Chyna Rashid MD - 10/07/2019 3:55 PM PDT [facility] Service: Hospitalist Progress Note Hospital Day: LOS: 4 days SUBJECTIVE Patient Summary: Mr. Theodore is a 59 yr old man active smoker 1ppday with alcohol abuse, hx of PAD, s/p right aorto bifemoral bypass in 1999 complicated by pseudoaneurysm, s/p revision, was transferred from [facility] ED for right foot swelling and [...] A POSITIVE Antibody Screen NEGATIVE BB BAND LETTER SORTING MACHINE OPERATOR 0630 BB BAND Testing performed at [facility];[address] [place] [address];[place] [address] UNIT # [id number] Product Code LEUKODEPLETED PC Unit Division 00 Unit Status ISSUED Transfusion Status OK TO TRANSFUSE CROSSMATCH RESULT COMPATIBLE UNIT # [id number] Product Code LEUKODEPLETED PC Unit Division 00 Unit Status ISSUED Transfusion Status OK TO TRANSFUSE CROSSMATCH RESULT COMPATIBLE UNIT # [id number] Product Code LEUKODEPLETED PC Unit Division 00 Unit Status ALLOCATED Transfusion Status OK TO TRANSFUSE CROSSMATCH RESULT COMPATIBLE UNIT # [id number] Product Code LEUKODEPLETED PC Unit Division 00 Unit Status ALLOCATED Transfusion Status OK TO TRANSFUSE CROSSMATCH RESULT COMPATIBLE Red Blood Cells (PRBC) - Crossmatch and Hold Result Value Ref Range Product Code RED CELL GROUP Units ordered 2 BLOOD BANK COMMENT ORDER RECEIVED IN BLOOD BANK. BLOOD BANK COMMENT Testing performed at [facility];[address] [place] [address];[place] [address] POC ISTAT, CG8, Arterial Result Value Ref [...] BANK. BLOOD BANK COMMENT Testing performed at [facility];[address] [place] [address];[place] [address] POC ISTAT, CG8, Arterial Result Value Ref [...] Milian PA-C - 10/07/2019 7:08 AM PDT [facility] Service: Vascular Surgery Progress Note Hospital Day: LOS: 4 days Post-Op Day: * No surgery date entered * SUBJECTIVE Patient Summary: The patient is a 59 y.o. 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 He unde rwent aortobifemoral bypass in [...] scan which revealed enlargement of known right NOVELTY TWISTER OPERATOR pseudoaneurysm. He was transferred to [facility] for evaluation and Vascular was consulted for [...] A POSITIVE Antibody Screen NEGATIVE BB BAND LETTER SORTING MACHINE OPERATOR 0630 BB BAND Testing performed at [facility];[address] [place] [address] UNIT # [id number] Product Code LEUKODEPLETED PC Unit Division 00 Unit Status ALLOCATED Transfusion Status OK TO TRANSFUSE CROSSMATCH RESULT COMPATIBLE UNIT # [id number] Product Code LEUKODEPLETED PC Unit Division 00 Unit Status ALLOCATED Transfusion Status OK TO TRANSFUSE CROSSMATCH RESULT COMPATIBLE Red Blood Cells (PRBC) - Crossmatch and Hold Collection Time: 10/07/19 6:30 AM Result Value Ref Range Product Code RED CELL GROUP Units ordered 2 BLOOD BANK COMMENT ORDER RECEIVED IN BLOOD BANK. BLOOD BANK COMMENT Testing performed at [facility];[address] [place] [address] PROBLEM LIST Principal Problem: Pseudoaneurysm right aorto [...] Shook MD - 10/06/2019 10:34 AM PDT [facility] Service: Hospitalist Progress Note Hospital Day: LOS: 3 days SUBJECTIVE Patient Summary: Mr. Theodore is a 59 yr old man active smoker 1ppday with alcohol abuse, hx of PAD, s/p right aorto bifemoral bypass in 1999 complicated by pseudoaneurysm, s/p revision, was transferred from [facility] ED for right foot swelling and [...] Crum PA-C - 10/06/2019 9:32 AM PDT [facility] Service: Vascular Surgery Progress Note Hospital Day: LOS: 3 days Post-Op Day: * No surgery date entered * SUBJECTIVE Patient Summary: The patient is a 59 y.o. 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 He unde rwent aortobifemoral bypass in [...] scan which revealed enlargement of known right NOVELTY TWISTER OPERATOR pseudoaneurysm. He was transferred to [facility] for evaluation and Vascular was consulted for [...] Status: Full Code Arlene Lamar PA-C 10/06/2019 aHley Rashid MD - 10/05/2019 12:14 PM PDT [facility] Service: Hospitalist Progress Note Hospital Day: LOS: 2 days SUBJECTIVE Patient Summary: Mr. Theodore is a 59 yr old man active smoker 1ppday with alcohol abuse, hx of PAD, s/p right aorto bifemoral bypass in 1999 complicated by pseudoaneurysm, s/p revision, was transferred from [facility] ED for right foot swelling and [...] Crum PA-C - 10/05/2019 8:18 AM PDT [facility] Service: Vascular Surgery Progress Note Hospital Day: LOS: 2 days Post-Op Day: * No surgery date entered * SUBJECTIVE Patient Summary: The patient is a 59 y.o. 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 He unde rwent aortobifemoral bypass in [...] scan which revealed enlargement of known right NOVELTY TWISTER OPERATOR pseudoaneurysm. He was transferred to [facility] for evaluation and Vascular was consulted for [...] and open repair for his enlarging right NOVELTY TWISTER OPERATOR pseudoaneurysm. He will need r etroperitoneal [...] Rashid MD - 10/04/2019 9:15 AM PDT [facility] Service: Hospitalist Progress Note Hospital Day: LOS: 1 day SUBJECTIVE Patient Summary: Mr. Theodore is a 59 yr old man active smoker 1ppday with alcohol abuse, hx of PAD, s/p right aorto bifemoral bypass in 1999 complicated by pseudoaneurysm, s/p revision, was transferred from [facility] ED for right foot swelling and increasing [...] LYTY 0809 BB BAND Testing performed at [facility];[address];[place] [address] ECG 12 lead Result Value Ref Range [...] check if blood cultures were taken at [facility] Prn pain medication Pseudoaneurysm right femoral [...] might be different from t he original. [facility] Service: Hospitalist Admission History & Physical Date [...] who p resents as a transfer from [facility] ED for pseudoaneurysm of the right groin and celluli tis of the RLE. Per patient right pseudoaneurysm of the right groin has been getting bigger for at least a year. Right foot swelling for 5 days. Patient reports similar episodes at [facility] twice a year but [...] LYTY 0809 BB BAND Testing performed at [facility];[address] [place] [address];[place] [address] ECG 12 lead Result Value Ref Range INTERPRETATION TEXT Not Confirmed IMAGING No orders to display EKG at 2310: NSR, VR 72, Qtc 455. Data from [facility] -Ultrasound impression: 6.3 x 5.1 x 5.8 [...] delirium tremens, seizures from withdrawals or withdrawals -[facility] protocol initiated Tobacco abuse: -Quit smoking today smoke a pack of cigarettes per day -Nicotine patch Hypokalemia GI and DVT prophylaxis Code Status: Full Code Dictation software, [employer] used which may contain errors for similar [...] this note might be different from the [facility] Service: Mangle Roll Operator Initial Consult Note Jairo Theodore 59 y.o. [...] was transf erred 5 days ago from [facility] for right foot swelling and increase [...] ENDARTERECTOMY FEMORAL; Surgeon: Magdiel Arteaga MD; Location: [facility] MAIN OR FEMORAL-FEMORAL BYPASS GRAFT N/A 10/07/2019 Procedure: BYPASS GRAFT FEMORAL-FEMORAL; Surgeon: Magdiel Arteaga MD; Location: [facility] MAIN OR OTHER SURGICAL HISTORY Right 10/07/2019 Procedure: REPAIR PSEUDOANEURYSM- FEMORAL; Surgeon: Magdiel Arteaga MD; Location: [facility] GABI N OR ALLERGIES Allergies Allergen Reactions [...] file Gets together: Not on file Attends church service: Not on file Active member of [...] PDTAssociated Order(s): PROVIDER TO PROVIDER CONSUL T [facility] Service: Vascular Surgery Initial Consult Note Date of Admission: 10/03/2019 Date of Consultation: 10/04/2019 Reason for Consultation: Pseudoaneurysm of right NOVELTY TWISTER OPERATOR Primary Care Physician: Maribel Physician on file History Obtained From: Patient, chart review Code Status: Full Code CHIEF COMPLAINT: Right foot swelling and pain; Enlarging right femoral pseudoaneurysm HISTORY OF PRESENT ILLNESS The patient is a 59 y.o. male with significant past medical history of tobacco abuse, HTN, CAD, history of alcohol abuse who presented to [facility] with complaints of cellulitis o f right leg as well as enlarging pseudoaneurysm of right NOVELTY TWISTER OPERATOR. He underwent aortobifemoral by pass in [...] which reveal ed enlargement of known right NOVELTY TWISTER OPERATOR pseudoaneurysm. He was transferred to [facility] for evaluation and Vascular was consulted for [...] - The patient was transferr ed to [facility] for evaluation of his enlarging pseudoaneurysm, which has been the same size for the last year he reports. [facility] but was lost to any follow up. 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 His C TA with runoff yesterday showed enlarging right femoral pseudoaneurysm. Left NOVELTY TWISTER OPERATOR shows no in flow but reconstitutes. The patient will require revascularization and open repair for his e nlarging right NOVELTY TWISTER OPERATOR pseudoaneurysm. He will need retroperitoneal exposure [...] will use his Medicare Part D benefits. SITE WORKER and Pt called [facility], got him reestablished with the [facility], has not been seen since 2018 . Pt is now assigned to [facility]. SITE WORKER p/c with Rudolph at [facility], states they will be calling Pt for follow up appt and will send referral for outpatient wound care. SITE WORKER p/c with Carol at [facility], states she has received [facility] orders in the p ast and will follow up with Dr. Bob's office. SITE WORKER provided referral and faxed Home health [...] Bed Mobility Supine to Sit, Level of Braxton: modified independent Sit to Supine, Level of Braxton: modified independent Safety Issues: decreased use of legs for bridging/pushing Transfers Sit-Stand, Level of Braxton: supervised Stand-Sit, Level of Braxton: supervised Mgu-Llank-Owo, Assistive Device: none Gait Level of Braxton: supervised Assistive Device: none Distance (feet): 40 Goals Reflects last filed data and may be from multiple contributors. All Bed Mobility Goal Most Recent Value LTG Status new at 10/09/2019 1108 LTG Braxton Level modified independent at 10/09/2019 1108 LTG Assistive Device none at 10/09/2019 1108 All Transfers Goal Most Recent Value LTG Status new at 10/09/2019 1108 LTG Braxton Level modified independent at 10/09/2019 1108 LTG Assistive Device 2 wheeled walker (FWW) at 10/09/2019 1108 Gait Goal Most Recent Value LTG Status new at 10/09/2019 1108 LTG Braxton Level modified independent at 10/09/2019 1108 LTG Assistive Device 2 wheeled walker (FWW) at 10/09/2019 1108 LTG Distance (feet) 100 at 10/09/2019 1108 Stair Goal Most Recent Value LTG Status new at 10/09/2019 1108 LTG Braxton Level modified independent at 10/09/2019 1108 LTG [...] bed rails Supine to Sit, Level of Braxton: modified independent Safety Issues: decreased use of legs for bridging/pushing Impairments: ROM decreased, strength decreased Transfers Sit-Stand, Level of Braxton: stand by assist, verbal cues required Stand-Sit, Level of Braxton: stand by assist, verbal cues required [id number], Assistive Device: 2 wheeled walker (FWW), none Toilet, Level of Braxton: stand by assist, verbal cues required Toilet, Assistive Device: 2 wheeled walker (FWW), grab bars Gait Gait Comments: antalgic gait with flexed trunk posture and intermittent crouch position Level of Braxton: stand by assist, verbal cues required(verbal cues [...] LTG Status new at 10/09/2019 1108 LTG Braxton Level modified independent at 10/09/2019 1108 LTG Assistive Device none at 10/09/2019 1108 All Transfers Goal Most Recent Value LTG Status new at 10/09/2019 1108 LTG Braxton Level modified independent at 10/09/2019 1108 LTG Assistive Device 2 wheeled walker (FWW) at 10/09/2019 1108 Gait Goal Most Recent Value LTG Status new at 10/09/2019 1108 LTG Braxton Level modified independent at 10/09/2019 1108 LTG Assistive Device 2 wheeled walker (FWW) at 10/09/2019 1108 LTG Distance (feet) 100 at 10/09/2019 1108 Stair Goal Most Recent Value LTG Status new at 10/09/2019 1108 LTG Braxton Level modified independent at 10/09/2019 1108 LTG [...] Bed Mobility Supine to Sit, Level of Braxton: minimal assist (75% patient effort) Transfers Sit-Stand, Level of Braxton: minimal assist (75% patient effort) Gait Level of Braxton: minimal assist (75% patient effort) Assistive Device: [...] LTG Status new at 10/09/2019 1108 LTG Braxton Level modified independent at 10/09/2019 1108 LTG Assistive Device none at 10/09/2019 1108 All Transfers Goal Most Recent Value LTG Status new at 10/09/2019 1108 LTG Braxton Level modified independent at 10/09/2019 1108 LTG Assistive Device 2 wheeled walker (FWW) at 10/09/2019 1108 Gait Goal Most Recent Value LTG Status new at 10/09/2019 1108 LTG Braxton Level modified independent at 10/09/2019 1108 LTG Assistive Device 2 wheeled walker (FWW) at 10/09/2019 110 LTG Distance (feet) 100 at 10/09/2019 1108 Stair Goal Most Recent Value LTG Status new at 10/09/2019 1108 LTG Braxton Level modified independent at 10/09/2019 1108 LTG [...] participation. Pt with an i ncontinent BM. CLOCK AND WATCH HANDS PAINTER and PT assisting with mobility and pericare. [...] Transfers Additional Documentation: toilet Sit-Stand, Level of Braxton: minimal assist (75% patient effort) Stand-Sit, Level of Braxton: minimal assist (75% patient effort) Syw-Rwiuw-Fog, Assistive Device: 2 wheeled walker (FWW) Toilet, Level of Braxton: minimal assist (75% patient effort) Toilet, Assistive Device: 2 wheeled walker (FWW) Safety Issues: loses balance backward, weight-shifting ability decreased, step length decre ased, sequencing ability decreased, balance decreased during turns Impairments: ROM decreased, strength decreased, impaired balance Gait Gait Comments: reduced step length BLE, excessive trunk flexion, reduced weight bearing RLE , avoidance COG over HAN Level of Braxton: minimal assist (75% patient effort) Assistive Device: 2 wheeled walker (FWW) Distance (feet): 15x2 Goals Reflects last filed data and may be from multiple contributors. All Bed Mobility Goal Most Recent Value LTG Status new at 10/09/2019 1108 LTG Braxton Level modified independent at 10/09/2019 1108 LTG Assistive Device none at 10/09/2019 1108 All Transfers Goal Most Recent Value LTG Status new at 10/09/2019 1108 LTG Braxton Level modified independent at 10/09/2019 1108 LTG Assistive Device 2 wheeled walker (FWW) at 10/09/2019 1108 Gait Goal Most Recent Value LTG Status new at 10/09/2019 1108 LTG Braxton Level modified independent at 10/09/2019 1108 LTG Assistive Device 2 wheeled walker (FWW) at 10/09/2019 1108 LTG Distance (feet) 100 at 10/09/2019 1108 Stair Goal Most Recent Value LTG Status new at 10/09/2019 1108 LTG Braxton Level modified independent at 10/09/2019 1108 LTG [...] Recommendations: 2 wheeled walker (FWW), shower chair, supercalender operator helper, sock aide, long handled sponge, long handled [...] bed rails Supine to Sit, Level of Braxton: minimal assist (75% patient effort) Sit to Supine, Level of Braxton: moderate assist (50% patient effort) Safety Issues: decreased use of legs for bridging/pushing, decreased use of arms for pushin g/pulling Impairments: ROM decreased, strength decreased, postural control impaired, pain Transfers Additional Documentation: sit to/from stand Sit-Stand, Level of Braxton: minimal assist (75% patient effort) Stand-Sit, Level of Braxton: maximal assist (25% patient effort) Lev-Zahqk-Jvr, Assistive Device: 2 wheeled walker (FWW), gait belt Safety Issues: loses balance backward, weight-shifting ability decreased, step length decre ased, sequencing ability decreased, balance decreased during turns Impairments: ROM decreased, strength decreased, impaired balance ROM Comments: WFL Strength Comments: WFL. B windows desktop engineer strength 4/5. B UE MMT 4/5 except for biceps 3+/5 Balance Sitting Balance: Static: good balance Sitting Balance: Dynamic: good balance Standing Balance: Static: poor balance Standing Balance: Dynamic: poor balance Goals Reflects last filed data and may be from multiple contributors. LB Dressing Goal Most Recent Value LTG Status new at 10/10/2019 1545 LTG Braxton Level minimum assist (75% patient effort), set up required at 10/10/2019 1545 LTG Adaptive Equipment supercalender operator helper, sock-aid at 10/10/2019 1545 Toilet Transfer Goal Most Recent Value LTG Status new at 10/10/2019 1545 LTG Braxton Level minimum assist (75% patient effort) at [...] Orders have been placed for transfer. GLEN Brgigs 10/10/2019 12:08 PM PDT lan of [facility] - Ramone, Mundo Powell MD - 10/10/2019 12:04 PM PDTPatient seen and examined briefly as day progress note has been made, at bedside in ICU on turnover by registered dietician. Patient stat es he feels better, no [...] bed rails Supine to Sit, Level of Braxton: minimal assist (75% patient effort) Transfers Bed-Chair, Level of Braxton: minimal assist (75% patient effort) Gmv-Xqvvh-Wvf, Assistive Device: 2 wheeled walker (FWW), gait belt Sit-Stand, Level of Braxton: minimal assist (75% patient effort), stand by assist Stand-Sit, Level of Braxton: minimal assist (75% patient effort), stand by assist Gait Gait Comments: reduced step length BLE, excessive trunk flexion, reduced weight bearing RLE , avoidance COG over HAN Level of Braxton: minimal assist (75% patient effort), verbal cues [...] LTG Status new at 10/09/2019 1108 LTG Braxton Level modified independent at 10/09/2019 1108 LTG Assistive Device none at 10/09/2019 1108 All Transfers Goal Most Recent Value LTG Status new at 10/09/2019 1108 LTG Braxton Level modified independent at 10/09/2019 1108 LTG Assistive Device 2 wheeled walker (FWW) at 10/09/2019 1108 Gait Goal Most Recent Value LTG Status new at 10/09/2019 1108 LTG Braxton Level modified independent at 10/09/2019 1108 LTG Assistive Device 2 wheeled walker (FWW) at 10/09/2019 1108 LTG Distance (feet) 100 at 10/09/2019 1108 Stair Goal Most Recent Value LTG Status new at 10/09/2019 1108 LTG Braxton Level modified independent at 10/09/2019 1108 LTG [...] Family Contact Information: Name: Lele Conley (Roommate) [id number] signed by PORTILLO Varner at 10/10/2019 10:13 [...] HOB elevated Supine to Sit, Level of Braxton: maximal assist (25% patient effort) Safety Issues: decreased use of legs for bridging/pushing, impaired trunk control for bed m obility Impairments: pain, strength decreased, ROM decreased Transfers Additional Documentation: sit to/from stand, bed to/from chair Bed-Chair, Level of Braxton: moderate assist (50% patient effort) Qsu-Ktpev-Gmn, Assistive Device: 2 wheeled walker (FWW) Sit-Stand, Level of Braxton: minimal assist (75% patient effort) Stand-Sit, Level of Braxton: minimal assist (75% patient effort) Sgr-Gdoay-Dqn, Assistive Device: 2 wheeled walker (FWW) Safety [...] LTG Status new at 10/09/2019 1108 LTG Braxton Level modified independent at 10/09/2019 1108 LTG Assistive Device none at 10/09/2019 1108 All Transfers Goal Most Recent Value LTG Status new at 10/09/2019 1108 LTG Braxton Level modified independent at 10/09/2019 1108 LTG Assistive Device 2 wheeled walker (FWW) at 10/09/2019 1108 Gait Goal Most Recent Value LTG Status new at 10/09/2019 1108 LTG Braxton Level modified independent at 10/09/2019 1108 LTG Assistive Device 2 wheeled walker (FWW) at 10/09/2019 1108 LTG Distance (feet) 100 at 10/09/2019 1108 Stair Goal Most Recent Value LTG Status new at 10/09/2019 1108 LTG Braxton Level modified independent at 10/09/2019 1108 LTG [...] 1.7 Estimated Energy Needs Energy Calorie Requirements: 9406-5160(28-32 kcal/kg per 54.3 kg admit wt ) [...] progressing Flowsheets (Taken 10/09/2019 1024) Participants: case investigator dietitian/nutrition services advanced practice nurse nursing pharmacy [...] per CM note and FS. Insurance is [facility]. lan of [facility] Urszula [...] wean off Wade. Electronical ly signed by mAanda Tim RN at 10/08/2019 7:52 PM PDTBrief Op Note - Magdiel Arteaga MD - 10/08/2019 2:31 PM PDT BRIEF OPERATIVE NOTE [facility] Pt. Name/Age/: Jairo Theodore 59 y.o. 1960 Med. Record Number: [id number] Date of admission: 10/03/2019 Date of Operation/Procedure: [...] disease (HCC) [I73.9] Surgeon: Magdiel Arteaga MD Dental Practitioner: Maicol Abel PA-C Anesthesia Provider(s): Anesthesiologist: Orlando Ambriz DO SERVICE SPECIALIST: Som Garcia CRNA Anesthesia Type: Anesthesia type not filed in the log. Procedure(s): THROMBECTOMY / EMBOLECTOMY of fem fem bypass BILATERAL BYPASS GRAFT FEMORAL-POPLITEAL WITH 6 MM PTFE ANGIOGRAM - EXTREMITY BILATERAL (60583) Operative Findings: Thrombosed femoral to femoral artery [...] Implant Name Type Inv. Item Serial No. Movie Theater Manager Lot No. LRB No. Used Action GRAFT VAS PROPATEN 6-80MM - [id number] Graft GRAFT VAS PROPATEN 6-80MM [id number] WL G ORE - WLGO NA N/A 1 Implanted GRAFT VAS PROPATEN 6-80MM - [id number] Graft GRAFT VAS PROPATEN 6-80MM [id number] WL G ORE - WLGO NA N/A 1 Implanted Counts: Instrument, sponge, and needle counts were correct prior to closure and at the con clusion of the case. Complications: None Disposition: The patient was taken to PACU Immediate Post-Operative Condition: Stable Electronically signed by: Magdiel Arteaga MD, 10/08/2019, 2:31 PM PDT p Note - Magdiel Arteaga MD - 10/08/2019 10 :06 AM PDT [facility] OPERATIVE REPORT PATIENT NAME: Jairo Theodore AGE: [...] Vesseloops proximally and distally. Then using the Zaeb tunneler I tunneled a 6 mm ringed PTFE graft in both legs. I first performed the fe moral to popliteal artery bypass in the left lower extremity. Clamps were applied to the pr ofunda, SFA and the femorofemoral bypass. Using a #11 blade a graftotomy was made in the ho od of the femorofemoral bypass. Using 2 CV 6 [place]-Jamie sutures the 6 mm bypass was anastomos [...] astomosis was created with 2 CV 6 [place]-Jamie sutures. Prior to completing the anastomosis the [...] an antibiotic solution. Hemostasis was achieved. 7 Georgian drains were placed in both groins and [...] Magdiel Arteaga MD Vascular Surgery Dictation software, Probki Iz okna, used which may contain error for similar sounding words even af ter review. Personal communication requested for any clarification. Electronically signed by: Magdiel Arteaga MD, 10/09/2019 10:06 AM PDT [facility] lan of Care - Aggie Hayden [...] Arteaga MD - 10/07/2019 7:00 PM PDT [facility] OPERATIVE REPORT PATIENT NAME: Jairo Theodore AGE: [...] vanced a wire and placed a 7 Georgian sheath. We again attempted to select out [...] femoral endarterectomy was performed w ith a [place] elevator. There was good backbleeding from the [...] common femoral endarterectomy was performed using the [place] elevator. After performing the endarterect carlyle there [...] copiously irrigated. There was good hemostasis. 7 Georgian flat AUGUSTUS drains were placed in both [...] Magdiel Arteaga MD Vascular Surgery Dictation software, Probki Iz okna, used which may contain error for similar sounding words even af ter review. Personal communication requested for any clarification. Electronically signed by: Magdiel Arteaga MD, 10/09/2019 9:28 AM PDT [facility] rief Op Note - Magdiel Arteaga MD - 10/07/2019 4:30 PM PDTFormatting of this note might be different from the or iginal. BRIEF OPERATIVE NOTE [facility] Pt. Name/Age/: Jairo Theodore 59 y.o. 1960 Med. Record Number: [id number] Date of admission: 10/03/2019 Date of Operation/Procedure: 10/07/2019 Preoperative Diagnosis: 1. Large right groin pseudoaneurysm 2. Peripheral arterial disease Postoperative Diagnosis: * Pseudoaneurysm (HCC) [I72.9] Surgeon: Magdiel Arteaga MD Dental Practitioner: Maicol Abel PA-C Anesthesia Provider(s): Anesthesiologist: Rudolph Lowery MD SERVICE SPECIALIST: Neville Rush CRNA Anesthesia Type: General Procedure(s): [...] Implant Name Type Inv. Item Serial No. Movie Theater Manager Lot No. LRB No. Used Action GRAFT GORE PROPATEN [id number] - [id number] Graft GRAFT GORE PROPATEN [id number] WL GORE - WLGO NA Right 1 Implanted GRAFT HEMGRD KNIT [id number] - [id number] Graft GRAFT HEMGRD KNIT [id number] [employer] - MAQU [id number] Right 1 Implanted [...] VSS with one SBP in 170s recheck [id number]. Report given to preop nurse and 0600IVPB [...] the bathroom clear of clutter. lan of [facility] - Carol Olivares MSW - 10/04/2019 12:52 [...] Notes: Pt resides with his friend in [place]. 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 Pt scheduled for pseudoaneurysm repair on [...] BUN 7* CREA 0.60* Estimated Energy Needs 2966-3745 kcal/day (28-32 kcal/kg per 54.3 kg admit [...] MCKEON | | | | | | [id number] | | | | | | | | +--------+ + + + + | 02/06/ Office | Vascular Surgery | Ricci De León, DNP | | | 2019 | Visit | | [address] | | | | | | [place], [place] | | | | | | [address] | | | | | | | | | | | | Magdiel Arteaga MD | | | | | | [address] | | | | | | [place] | | | | | | [place] [address] | | | | | | [phone] | | | | | | | [...] | | | e | ([facility]) right aorto | 10/23/2019, Expires: | | [...] | | | e | ([facility]) right aorto | starting 10/16/2019 | | [...] | | | e | ([facility]) right aorto | 10/23/2019, Expires: | | [...] | Referral | e | ([facility]) right aorto | | | | | | femoral bypass | | | | | | Cellulitis of right | | | | | | foot 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 ([facility]) | | | | | | Post-operative [...] + + | TYPE AND SCREEN | ZACAHRY | 10/12/2019 | | Results for this [...] LABORATORY | | | | performed at [facility], [address] | | | | | | [address] [facility], | | | | | | [place] [address] | | | | + + + + + + + + | Specimen | + + | Blood | + + + + + + + | Performing | Address | City/State/Zipcode | Phone Number | | Organization | | | | + + + + + | [facility] | [address] | [place] [address] | [phone] | + + + + + Magnesium (10/16/2019 5:11 AM PDT) + + + + + + | Component | Value | Ref Range | Performed | Pathologist | | | | | At | Signature | + + + + + + | Magnesium | 1.7Comment: Testing | 1.7 - 2.4 mg/dL | [facility] | | | | performed at [facility];[address] | | LABORATORY | | | | [address];[place] | | | | | | [address] | | | | + + + + + + + + | Specimen | + + | Blood | + + + + + + + | Performing | Address | City/State/Zipcode | Phone Number | | Organization | | | | + + + + + | [facility] | [address] | [place] [address] | [phone] | + + + + + Potassium (10/16/2019 5:11 AM PDT) + + + + + + | Component | Value | Ref Range | Performed | Pathologist | | | | | At | Signature | + + + + + + | K | 3.0 (L)Comment: Testing | 3.5 - 4.9 | [facility] | | | | performed at [facility];[address] | mmol/L | LABORATORY | | | | [address];[place] | | | | | | [address] | | | | + + + + + + + + | Specimen | + + | Blood | + + + + + + + | Performing | Address | City/State/Zipcode | Phone Number | | Organization | | | | + + + + + | [facility] | [address] | [place] [address] | [phone] | + + + + + CBC [...] LABORATORY | | | | performed at [facility], [address] | | | | | [address], | | | | | | [place] [address] | | | | + + + + + + + + | Specimen | + + | Blood | + + + + + + + | Performing | Address | City/State/Zipcode | Phone Number | | Organization | | | | + + + + + | [facility] | [address] | [place] [address] | [phone] | + + + + + Magnesium (10/15/2019 5:13 AM PDT) + + + + + + | Component | Value | Ref Range | Performed | Pathologist | | | | | At | Signature | + + + + + + | Magnesium | 1.9Comment: Testing | 1.7 - 2.4 mg/dL | JUAN M | | | | performed at [facility];[address] | | LABORATORY | | | | [address];[place] | | | | | | [address] | | | | + + + + + + + + | Specimen | + + | Blood | + + + + + + + | Performing | Address | City/State/Zipcode | Phone Number | | Organization | | | | + + + + + | [facility] | [address] | [place] [address] | [phone] | + + + + + Basic [...] | | | | | performed at [facility], [address] | | | | | | [address], | | | | | | [place] [address] | | | | + + + + + + + + | Specimen | + + | Blood | + + + + + + + | Performing | Address | City/State/Zipcode | Phone Number | | Organization | | | | + + + + + | [facility] | [address] | [place] [address] | [phone] | + + + + + Potassium (10/14/2019 3:28 PM PDT) + + + + + + | Component | Value | Ref Range | Performed | Pathologist | | | | | At | Signature | + + + + + + | K | 3.3 (L)Comment: Testing | 3.5 - 4.9 | [facility] | | | | performed at [facility];[address] | mmol/L | LABORATORY | | | | [address];[place] | | | | | | [address] | | | | + + + + + + + + | Specimen | + + | Blood | + + + + + + + | Performing | Address | City/State/Zipcode | Phone Number | | Organization | | | | + + + + + | [facility] | [address] | [place] [address] | [phone] | + + + + + Magnesium (10/14/2019 3:28 PM PDT) + + + + + + | Component | Value | Ref Range | Performed | Pathologist | | | | | At | Signature | + + + + + + | Magnesium | 2.1Comment: Testing | 1.7 - 2.4 mg/dL | [facility] | | | | performed at [facility];[address] | | LABORATORY | | | | [address];[place] | | | | | | [address] | | | | + + + + + + + + | Specimen | + + | Blood | + + + + + + + | Performing | Address | City/State/Zipcode | Phone Number | | Organization | | | | + + + + + | [facility] | [address] | [place] [address] | [phone] | + + + + + Phosphorus (10/14/2019 3:28 PM PDT) + + + + + + | Component | Value | Ref Range | Performed | Pathologist | | | | | At | Signature | + + + + + + | Phosphorus | 1.3 (L)Comment: Testing | 2.3 - 4.8 mg/dL | [facility] | | | | performed at [facility];[address] | | LABORATORY | | | | [address];[place] | | | | | | [address] | | | | + + + + + + + + | Specimen | + + | Blood | + + + + + + + | Performing | Address | City/State/Zipcode | Phone Number | | Organization | | | | + + + + + | [facility] | [address] | [place] [address] | [phone] | + + + + + CBC [...] LABORATORY | | | | performed at [facility], [address] | | | | | | [address], | | | | | | [place] [address] | | | | + + + + + + + + | Specimen | + + | Blood | + + + + + + + | Performing | Address | City/State/Zipcode | Phone Number | | Organization | | | | + + + + + | [facility] | [address] | [place] [address] | [phone] | + + + + + Magnesium (10/14/2019 5:49 AM PDT) + + + + + + | Component | Value | Ref Range | Performed | Pathologist | | | | | At | Signature | + + + + + + | Magnesium | 1.6 (L)Comment: Testing | 1.7 - 2.4 mg/dL | [facility] | | | | performed at [facility];[address] | | LABORATORY | | | | [address];[place] | | | | | | [address] | | | | + + + + + + + + | Specimen | + + | Blood | + + + + + + + | Performing | Address | City/State/Zipcode | Phone Number | | Organization | | | | + + + + + | [facility] | [address] | [place] [address] | [phone] | + + + + + Basic [...] | | | | | performed at [facility], [address] | | | | | | [facility], | | | | | | [place] [address] | | | | + + + + + + + + | Specimen | + + | Blood | + + + + + + + | Performing | Address | City/State/Zipcode | Phone Number | | Organization | | | | + + + + + | [facility] | [address] | [place] [address] | [phone] | + + + + + Potassium (10/13/2019 11:07 AM PDT) + + + + + + | Component | Value | Ref Range | Performed | Pathologist | | | | | At | Signature | + + + + + + | K | 3.5Comment: Testing | 3.5 - 4.9 | [facility] | | | | performed at [facility];[address] | mmol/L | LABORATORY | | | | [address];[place] | | | | | | [address] | | | | + + + + + + + + | Specimen | + + | Blood | + + + + + + + | Performing | Address | City/State/Zipcode | Phone Number | | Organization | | | | + + + + + | [facility] | [address] | [place] [address] | [phone] | + + + + + Potassium (10/13/2019 4:37 AM PDT) + + + + + + | Component | Value | Ref Range | Performed | Pathologist | | | | | At | Signature | + + + + + + | K | 3.5Comment: Testing | 3.5 - 4.9 | [facility] | | | | performed at [facility];888 | mmol/L | LABORATORY | | | | [facility];[place], [place] | | | | | | [address] | | | | + + + + + + + + | Specimen | + + | Blood | + + + + + + + | Performing | Address | City/State/Zipcode | Phone Number | | Organization | | | | + + + + + | [facility] | [address] | [place] [address] | [phone] | + + + + + Magnesium (10/13/2019 4:37 AM PDT) + + + + + + | Component | Value | Ref Range | Performed | Pathologist | | | | | At | Signature | + + + + + + | Magnesium | 1.7Comment: Testing | 1.7 - 2.4 mg/dL | [facility] | | | | performed at [facility];[address] | | LABORATORY | | | | [address];[place] | | | | | | [address] | | | | + + + + + + + + | Specimen | + + | Blood | + + + + + + + | Performing | Address | City/State/Zipcode | Phone Number | | Organization | | | | + + + + + | [facility] | [address] | [place] [address] | [phone] | + + + + + Basic [...] | | | | performed at [facility] | | | | | | [facility];[place], [place] | | | | | | [address] | | | | + + + + + + + + | Specimen | + + | Blood | + + + + + + + | Performing | Address | City/State/Zipcode | Phone Number | | Organization | | | | + + + + + | [facility] | [address] | [place] [address] | [phone] | + + + + + Hemoglobin [...] | | | | performed at [facility];888 | | LABORATORY | | | | [address] [facility];[place], [place] | | | | | | [address] | | | | + + + + + + + + | Specimen | + + | Blood | + + + + + + + | Performing | Address | City/State/Zipcode | Phone Number | | Organization | | | | + + + + + | [facility] | [address] | [place] [address] | [phone] | + + + + + Potassium (10/12/2019 4:28 PM PDT) + + + + + + | Component | Value | Ref Range | Performed | Pathologist | | | | | At | Signature | + + + + + + | K | 3.3 (L)Comment: Testing | 3.5 - 4.9 | [facility] | | | | performed at [facility];888 | mmol/L | LABORATORY | | | | [address];[place] | | | | | | [address] | | | | + + + + + + + + | Specimen | + + | Blood | + + + + + + + | Performing | Address | City/State/Zipcode | Phone Number | | Organization | | | | + + + + + | [facility] | [address] | [place] [address] | [phone] | + + + + + Clostridium [...] | | | | | | [facility];[address] [place] [address] | | | | | | [facility];[place] [address] | | | | + + + + + + + + | Specimen | + + | Stool - Stool | | specimen (specimen) | + + + + + + + | Performing | Address | City/State/Zipcode | Phone Number | | Organization | | | | + + + + + | [facility] | [address] | [place] [address] | [phone] | + + + + + Potassium (10/12/2019 11:02 AM PDT) + + + + + + | Component | Value | Ref Range | Performed | Pathologist | | | | | At | Signature | + + + + + + | K | 3.3 (L)Comment: Testing | 3.5 - 4.9 | [facility] | | | | performed at [facility];888 | mmol/L | LABORATORY | | | | [address];[place], [place] | | | | | | [address] | | | | + + + + + + + + | Specimen | + + | Blood | + + + + + + + | Performing | Address | City/State/Zipcode | Phone Number | | Organization | | | | + + + + + | [facility] | [address] | [place] [address] | [phone] | + + + + + Type [...] + + + | BB BAND | [id number] | | [facility] | | | | | | LABORATORY | | + + + + + + | UNIT # | [id number] | | [facility] | | | | [...] | | RESULT | performed at [facility];[address] | | LABORATORY | | | | [address];[place], [place] | | | | | | [address] | | | | + + + + + + | UNIT # | [id number] | | [facility] | | | | [...] | [address] | [place] [address] | [phone] | + + + + + Red [...] BANK | Testing performed at | | [facility] | | | COMMENT | [facility];[address] | | LABORATORY | | | | [address];[place] [address] | | | | + + + + + + + + | Specimen | + + | | + + + + + + + | Performing | Address | City/State/Zipcode | Phone Number | | Organization | | | | + + + + + | [facility] | [address] | [place] [address] | [phone] | + + + + + Magnesium (10/12/2019 4:08 AM PDT) + + + + + + | Component | Value | Ref Range | Performed | Pathologist | | | | | At | Signature | + + + + + + | Magnesium | 1.9Comment: Testing | 1.7 - 2.4 mg/dL | [facility] | | | | performed at [facility];[address] | | LABORATORY | | | | [address];[place], [place] | | | | | | [address] | | | | + + + + + + + + | Specimen | + + | Blood | + + + + + + + | Performing | Address | City/State/Zipcode | Phone Number | | Organization | | | | + + + + + | [facility] | [address] | [place] [address] | [phone] | + + + + + Comprehensive [...] | >60Comment: GFR <60: | >60 | [facility] | | | GFR | CHRONIC KIDNEY [...] | | | | | | MDRD [facility] traceable | | | | | | equation.Testing | | | | | | performed at [facility];[address] | | | | | | [address] [facility];[place], [place] | | | | | | [address] | | | | + + + + + + + + | Specimen | + + | Blood | + + + + + + + | Performing | Address | City/State/Zipcode | Phone Number | | Organization | | | | + + + + + | [facility] | [address] [facility] | [place] [address] | [phone] | + + + + + CBC [...] | [facility] | | | | NURSING [id number] H | g/dL | LABORATORY | | [...] | [facility] | | | | NURSING [id number] | | LABORATORY | | | | [...] LABORATORY | | | | performed at [facility];[address] | | | | | | [address];[place] | | | | | | [address] | | | | + + + + + + + + | Specimen | + + | Blood | + + + + + + + | Performing | Address | City/State/Zipcode | Phone Number | | Organization | | | | + + + + + | [facility] | [address] | [place] [address] | [phone] | + + + + + Urinalysis [...] - 1.030 | [facility] | | | [place], | | | LABORATORY | | | [...] | | LABORATORY | | | | [facility], [address] | | | | | | [place] | | | | | | [address] | | | | + + + [...] | + + + + + | [facility] | [address] | [place] [address] | [phone] | + + + + + Osmolality, Urine (10/11/2019 11:16 AM PDT) + + + + + + | Component | Value | Ref Range | Performed | Pathologist | | | | | At | Signature | + + + + + + | OSMO URINE | 239Comment: Testing | 50 - 1,200 | [facility] | | | | performed at [facility], [address] | mOsm/kg | LABORATORY | | | | [address], | | | | | | [place] [address] | | | | + + + [...] | + + + + + | [facility] | [address] | [place] [address] | [phone] | + + + + + Culture, [...] | | LABORATORY | | | | Blvd;[place] [address] | | | | + + + + + + | RESULT | NO GROWTH 6 DAYS | | [facility] | | | | | | LABORATORY | | + + + + + + | RESULT | Testing performed at | | [facility] | | | | [facility], [address] [facility] | | LABORATORY | | | | [facility], [place], [place] | | | | | | [address]Sttvrwl: Testing | | | | | | performed at [facility], [address] | | | | | | [address] [facility], [place], [place] | | | | | | [address] | | | | + + + + + + + + | Specimen | + + | Blood - Swab of line | | insertion site | | (specimen) | + + + + + + + | Performing | Address | City/State/Zipcode | Phone Number | | Organization | | | | + + + + + | [facility] | [address] | [place] [address] | [phone] | + + + + + XR [...] Procedure Note | + + | Espinoza, [id number] - 10/11/2019 10:42 AM PDT | | [...] LABORATORY | | | | Blvd;[place] [address] | | | | + + + + + + | RESULT | NO GROWTH 6 DAYS | | [facility] | | | | | | LABORATORY | | + + + + + + | RESULT | Testing performed at | | [facility] | | | | [facility], [address] | | LABORATORY | | | | [place] | | | | | | [address]Ptzfjaw: Testing | | | | | | performed at [facility], [address] | | | | | | [address] [place] | | | | | | [address] | | | | + + + + + + + + | Specimen | + + | Blood - Peripheral | | blood specimen | | (specimen) | + + + + + + + | Performing | Address | City/State/Zipcode | Phone Number | | Organization | | | | + + + + + | [facility] | [address] | [place] [address] | [phone] | + + + + + Sodium (10/11/2019 9:30 AM PDT) + + + + + + | Component | Value | Ref Range | Performed | Pathologist | | | | | At | Signature | + + + + + + | Na | 127 (L)Comment: Testing | 135 - 145 | [facility] | | | | performed at [facility];888 | mmol/L | LABORATORY | | | | [address];[place] | | | | | | [address] | | | | + + + + + + + + | Specimen | + + | Blood | + + + + + + + | Performing | Address | City/State/Zipcode | Phone Number | | Organization | | | | + + + + + | [facility] | [address] | [place] [address] | [phone] | + + + + + Osmolality, Serum (10/11/2019 9:30 AM PDT) + + + + + + | Component | Value | Ref Range | Performed | Pathologist | | | | | At | Signature | + + + + + + | Osmolality, | 262 (L)Comment: Testing | 280 - 301 | [facility] | | | Serum | performed at [facility], [address] | mOsm/kg | LABORATORY | | | | [address], | | | | | | [place] [address] | | | | + + + + + + + + | Specimen | + + | Blood | + + + + + + + | Performing | Address | City/State/Zipcode | Phone Number | | Organization | | | | + + + + + | [facility] | [address] | [place] [address] | [phone] | + + + + + Comprehensive [...] | | | | performed at [facility];[address] | | | | | | [facility];[place], [place] | | | | | | [address] | | | | + + + + + + + + | Specimen | + + | Blood | + + + + + + + | Performing | Address | City/State/Zipcode | Phone Number | | Organization | | | | + + + + + | [facility] | [address] | [place] [address] | [phone] | + + + + + CBC [...] LABORATORY | | | | performed at [facility];[address] | | | | | | [address];[place] | | | | | | [address] | | | | + + + + + + + + | Specimen | + + | Blood | + + + + + + + | Performing | Address | City/State/Zipcode | Phone Number | | Organization | | | | + + + + + | [facility] | [address] | [place] [address] | [phone] | + + + + + Comprehensive [...] | | | | performed at [facility];[address] | | | | | | [address] [facility];[place], [place] | | | | | | [address] | | | | + + + + + + + + | Specimen | + + | Blood | + + + + + + + | Performing | Address | City/State/Zipcode | Phone Number | | Organization | | | | + + + + + | [facility] | [address] | [place] [address] | [phone] | + + + + + Magnesium (10/10/2019 4:16 AM PDT) + + + + + + | Component | Value | Ref Range | Performed | Pathologist | | | | | At | Signature | + + + + + + | Magnesium | 1.8Comment: Testing | 1.7 - 2.4 mg/dL | [facility] | | | | performed at [facility];[address] | | LABORATORY | | | | [address];[place], [place] | | | | | | [address] | | | | + + + + + + + + | Specimen | + + | Blood | + + + + + + + | Performing | Address | City/State/Zipcode | Phone Number | | Organization | | | | + + + + + | [facility] | [address] | [place] [address] | [phone] | + + + + + CBC [...] | | Absolute | performed at [facility];[address] | K/uL | LABORATORY | | | | [address];[place] | | | | | | [address] | | | | + + + + + + + + | Specimen | + + | Blood | + + + + + + + | Performing | Address | City/State/Zipcode | Phone Number | | Organization | | | | + + + + + | [facility] | [address] | [place] [address] | [phone] | + + + + + Lactic Acid (10/09/2019 5:12 AM PDT) + + + + + + | Component | Value | Ref Range | Performed | Pathologist | | | | | At | Signature | + + + + + + | Lactate, | 1.8Comment: Testing | 0.4 - 2.0 | [facility] | | | Serum | performed at [facility];888 | mmol/L | LABORATORY | | | | [address];[place] | | | | | | [address] | | | | + + + + + + + + | Specimen | + + | Blood | + + + + + + + | Performing | Address | City/State/Zipcode | Phone Number | | Organization | | | | + + + + + | [facility] | [address] | [place] [address] | [phone] | + + + + + Comprehensive [...] | >60Comment: GFR <60: | >60 | [facility] | | | GFR | CHRONIC KIDNEY [...] | | | | | | MDRD [facility]PA traceable | | | | | | equation.Testing | | | | | | performed at [facility];[address] | | | | | | [facility];[place], [place] | | | | | | [address] | | | | + + + + + + + + | Specimen | + + | Blood | + + + + + + + | Performing | Address | City/State/Zipcode | Phone Number | | Organization | | | | + + + + + | [facility] | [address] | [place] [address] | [phone] | + + + + + Procalcitonin (10/09/2019 5:10 AM PDT) + + + + + + | Component | Value | Ref Range | Performed | Pathologist | | | | | At | Signature | + + + + + + | PROCALCITON | 0.65 (H)Comment: | <0.5 ng/mL | [facility] | | | IN | INTERPRETIVE | [...] | | | | | at [facility];[address] [place] [address] | | | | | | [facility];[place] [address] | | | | + + + + + + + + | Specimen | + + | Blood | + + + + + + + | Performing | Address | City/State/Zipcode | Phone Number | | Organization | | | | + + + + + | [facility] | [address] [facility] | [place] [address] | [phone] | + + + + + Phosphorus (10/09/2019 5:10 AM PDT) + + + + + + | Component | Value | Ref Range | Performed | Pathologist | | | | | At | Signature | + + + + + + | Phosphorus | 4.0Comment: Testing | 2.3 - 4.8 mg/dL | [facility] | | | | performed at [facility];[address] | | LABORATORY | | | | [address];[place] | | | | | | [address] | | | | + + + + + + + + | Specimen | + + | Blood | + + + + + + + | Performing | Address | City/State/Zipcode | Phone Number | | Organization | | | | + + + + + | [facility] | [address] [facility] | [place] [address] | [phone] | + + + + + Magnesium (10/09/2019 5:10 AM PDT) + + + + + + | Component | Value | Ref Range | Performed | Pathologist | | | | | At | Signature | + + + + + + | Magnesium | 1.7Comment: Testing | 1.7 - 2.4 mg/dL | [facility] | | | | performed at [facility];[address] | | LABORATORY | | | | [address];[place], [place] | | | | | | [address] | | | | + + + + + + + + | Specimen | + + | Blood | + + + + + + + | Performing | Address | City/State/Zipcode | Phone Number | | Organization | | | | + + + + + | [facility] | [address] | [place] [address] | [phone] | + + + + + CBC [...] | | | | performed at [facility];[address] | | | | | | [address];[place] | | | | | | [address] | | | | + + + + + + + + | Specimen | + + | Blood | + + + + + + + | Performing | Address | City/State/Zipcode | Phone Number | | Organization | | | | + + + + + | [facility] | [address] | [place] [address] | [phone] | + + + + + POC [...] | | POC | performed at [facility];[address] | | LABORATORY | | | | [address];[place] | | | | | | [address] | | | | + + + + + + + + | Specimen | + + | | + + + + + + + | Performing | Address | City/State/Zipcode | Phone Number | | Organization | | | | + + + + + | [facility] | [address] | [place] [address] | [phone] | + + + + + Phosphorus (10/08/2019 5:23 PM PDT) + + + + + + | Component | Value | Ref Range | Performed | Pathologist | | | | | At | Signature | + + + + + + | Phosphorus | 3.4Comment: Testing | 2.3 - 4.8 mg/dL | [facility] | | | | performed at [facility];[address] | | LABORATORY | | | | [address];[place], [place] | | | | | | [address] | | | | + + + + + + + + | Specimen | + + | Blood | + + + + + + + | Performing | Address | City/State/Zipcode | Phone Number | | Organization | | | | + + + + + | [facility] | [address] | [place] [address] | [phone] | + + + + + Magnesium (10/08/2019 5:23 PM PDT) + + + + + + | Component | Value | Ref Range | Performed | Pathologist | | | | | At | Signature | + + + + + + | Magnesium | 1.8Comment: Testing | 1.7 - 2.4 mg/dL | [facility] | | | | performed at [facility];[address] | | LABORATORY | | | | [address];[place] | | | | | | [address] | | | | + + + + + + + + | Specimen | + + | Blood | + + + + + + + | Performing | Address | City/State/Zipcode | Phone Number | | Organization | | | | + + + + + | [facility] | [address] | [place] [address] | [phone] | + + + + + CBC [...] | | | | | | [facility];[address] | | | | | [address];[place] [address] | | | | + + + + + + + + | Specimen | + + | Blood | + + + + + + + | Performing | Address | City/State/Zipcode | Phone Number | | Organization | | | | + + + + + | [facility] | [address] | [place] [address] | [phone] | + + + + + Basic [...] | | | | performed at [facility] | | | | | | [facility];[place], [place] | | | | | | [address] | | | | + + + + + + + + | Specimen | + + | Blood | + + + + + + + | Performing | Address | City/State/Zipcode | Phone Number | | Organization | | | | + + + + + | [facility] | [address] | [place] [address] | [phone] | + + + + + PTT (10/08/2019 5:23 PM PDT) + + + + + + | Component | Value | Ref Range | Performed | Pathologist | | | | | At | Signature | + + + + + + | PTT | 32Comment: Testing | 23 - 32 seconds | [facility] | | | | performed at [facility];8 | | LABORATORY | | | | [address];[place] | | | | | | [address] | | | | + + + + + + + + | Specimen | + + | Blood | + + + + + + + | Performing | Address | City/State/Zipcode | Phone Number | | Organization | | | | + + + + + | [facility] | [address] | [place] [address] | [phone] | + + + + + POC [...] | | POC | performed at [facility];888 | g/dL | LABORATORY | | | | [address];[place], [place] | | | | | | [address] | | | | + + + + + + + + | Specimen | + + | | + + + + + + + | Performing | Address | City/State/Zipcode | Phone Number | | Organization | | | | + + + + + | [facility] | [address] | [place] [address] | [phone] | + + + + + POC ISTAT, CG8, Arterial (10/08/2019 1:22 PM PDT) + + + + + + | Component | Value | Ref Range | Performed | Pathologist | | | | | At | Signature | + + + + + + | pH, | 7.334 (L) | 7.350 - 7.450 | [facility] | | | Arterial, | | | [...] | | POC | performed at [facility];888 | g/dL | LABORATORY | | | | [address];[place], [place] | | | | | | [address] | | | | + + + + + + + + | Specimen | + + | | + + + + + + + | Performing | Address | City/State/Zipcode | Phone Number | | Organization | | | | + + + + + | [facility] | [address] | [place] [address] | [phone] | + + + + + Basic [...] | | | | | performed at [facility], [address] | | | | | | [facility], | | | | | | [place] [address] | | | | + + + + + + + + | Specimen | + + | Blood | + + + + + + + | Performing | Address | City/State/Zipcode | Phone Number | | Organization | | | | + + + + + | [facility] | [address] | [place] [address] | [phone] | + + + + + CBC [...] | | | Absolute | performed at [facility], [address] | K/uL | LABORATORY | | | | [address], | | | | | | [place] [address] | | | | + + + + + + + + | Specimen | + + | Blood | + + + + + + + | Performing | Address | City/State/Zipcode | Phone Number | | Organization | | | | + + + + + | [facility] | [address] | [place] [address] | [phone] | + + + + + Magnesium (10/08/2019 5:44 AM PDT) + + + + + + | Component | Value | Ref Range | Performed | Pathologist | | | | | At | Signature | + + + + + + | Magnesium | 1.6 (L)Comment: Testing | 1.7 - 2.4 mg/dL | [facility] | | | | performed at [facility];[address] | | LABORATORY | | | | [address];[place] | | | | | | [address] | | | | + + + + + + + + | Specimen | + + | Blood | + + + + + + + | Performing | Address | City/State/Zipcode | Phone Number | | Organization | | | | + + + + + | [facility] | [address] | [place] [address] | [phone] | + + + + + PTT (10/07/2019 5:21 PM PDT) + + + + + + | Component | Value | Ref Range | Performed | Pathologist | | | | | At | Signature | + + + + + + | PTT | 28Comment: Testing | 23 - 32 seconds | KT | | | | performed at [facility];[address] | | LABORATORY | | | | [address];[place], [place] | | | | | | [address] | | | | + + + + + + + + | Specimen | + + | Blood - Artery, | | Radial, Right | + + + + + + + | Performing | Address | City/State/Zipcode | Phone Number | | Organization | | | | + + + + + | [facility] | [address] | [place] [address] | [phone] | + + + + + Protime INR (10/07/2019 5:21 PM PDT) + + + + + + | Component | Value | Ref Range | Performed | Pathologist | | | | | At | Signature | + + + + + + | INR | 1.3Comment: REFERENCE | | [facility] | | | | RANGE:0.9 - 1.2 [...] | | | | performed at [facility];[address] | | | | | | [facility];[place], [place] | | | | | | [address] | | | | + + + + + + + + | Specimen | + + | Blood - Artery, | | Radial, Right | + + + + + + + | Performing | Address | City/State/Zipcode | Phone Number | | Organization | | | | + + + + + | [facility] | [address] | [place] [address] | [phone] | + + + + + Basic [...] | | | | performed at [facility];[address] | | | | | | [facility];[place], [place] | | | | | | [address] | | | | + + + + + + + + | Specimen | + + | Blood - Artery, | | Radial, Right | + + + + + + + | Performing | Address | City/State/Zipcode | Phone Number | | Organization | | | | + + + + + | [facility] | [address] | [place] [address] | [phone] | + + + + + CBC [...] LABORATORY | | | | performed at [facility];[address] | | | | | | [address];[place] | | | | | | [address] | | | | + + + + + + + + | Specimen | + + | Blood - Right upper | | arm structure (body | | structure) | + + + + + + + | Performing | Address | City/State/Zipcode | Phone Number | | Organization | | | | + + + + + | [facility] | [address] | [place] [address] | [phone] | + + + + + Surgical [...] | including foreign body giant cell reaction. AMB:[facility]:C2NR MICROSCOPIC | | | EXAMINATION:Histologic sections [...] attached red-white | | | fibromembranous tissue. Coupon Redemption Clerk sections are submitted in | | | [...] | LABORATORY:The technical component was performed by [facility] | | | [employer], [address] [place] [address] (Instructor Adjunct Surgical Technician: | | | Asia Rodriguez MD; CLIA# [id number]).Professional interpretation was | | | performed by [facility], [facility] | | | [place] [address] (Instructor Adjunct Surgical Technician: Solitario | | | Jacky Recio; CLIA#: [id number]). Diagnostician: Asia Rodriguez | | | MDPathologistElectronically Signed 10/10/2019 | | | | | |PERFORMING LABORATORY: | | |The technical component was performed by [employer], [address] [place] [address] (Instructor Adjunct Surgical Technician: Asia Rodriguez MD; CLIA# [id number]). | | |Professional interpretation was performed by [employer], [facility], [address] [place] [address] (Instructor Adjunct Surgical Technician: Solitario Recio M.D.; CLIA#: [id number]). | | | | | |Diagnostician: Asia [...] | | POC | performed at [facility];888 | g/dL | LABORATORY | | | | [address];[place], [place] | | | | | | [address] | | | | + + + + + + + + | Specimen | + + | | + + + + + + + | Performing | Address | City/State/Zipcode | Phone Number | | Organization | | | | + + + + + | [facility] | [address] | [place] [address] | [phone] | + + + + + Red [...] | [facility] | | | COMMENT | [facility];[address] | | LABORATORY | | | | [address];[place] [address] | | | | + + + + + + + + | Specimen | + + | | + + + + + + + | Performing | Address | City/State/Zipcode | Phone Number | | Organization | | | | + + + + + | [facility] | [address] | [place] [address] | [phone] | + + + + + POC [...] (L)Comment: Testing | 13.7 - 16.7 | [facility] | | | POC | performed at [facility];[address] | g/dL | LABORATORY | | | | [address];[place], [place] | | | | | | [address] | | | | + + + + + + + + | Specimen | + + | | + + + + + + + | Performing | Address | City/State/Zipcode | Phone Number | | Organization | | | | + + + + + | [facility] | [address] | [place] [address] | [phone] | + + + + + POC [...] | | POC | performed at [facility];888 | g/dL | LABORATORY | | | | [address];[place], [place] | | | | | | [address] | | | | + + + + + + + + | Specimen | + + | | + + + + + + + | Performing | Address | City/State/Zipcode | Phone Number | | Organization | | | | + + + + + | [facility] | [address] | [place] [address] | [phone] | + + + + + POC ISLILLIE, CG8, Arterial (10/07/2019 8:40 AM PDT) + + + + + + | Component | Value | Ref Range | Performed | Pathologist | | | | | At | Signature | + + + + + + | pH, | 7.314 (L) | 7.350 - 7.450 | [facility] | | | Arterial, | | | [...] | | POC | performed at [facility];888 | g/dL | LABORATORY | | | | [address];[place] | | | | | | [address] | | | | + + + + + + + + | Specimen | + + | | + + + + + + + | Performing | Address | City/State/Zipcode | Phone Number | | Organization | | | | + + + + + | [facility] | [address] | [place] [address] | [phone] | + + + + + Red [...] | [facility] | | | COMMENT | [facility];[address] [facility] | | LABORATORY | | | | Blvd;[place] [address] | | | | + + + + + + + + | Specimen | + + | | + + + + + + + | Performing | Address | City/State/Zipcode | Phone Number | | Organization | | | | + + + + + | [facility] | [address] | [place] [address] | [phone] | + + + + + Magnesium (10/07/2019 3:55 AM PDT) + + + + + + | Component | Value | Ref Range | Performed | Pathologist | | | | | At | Signature | + + + + + + | Magnesium | 1.6 (L)Comment: Testing | 1.7 - 2.4 mg/dL | [facility] | | | | performed at [facility];[address] | | LABORATORY | | | | [address];[place], [place] | | | | | | [address] | | | | + + + + + + + + | Specimen | + + | Blood | + + + + + + + | Performing | Address | City/State/Zipcode | Phone Number | | Organization | | | | + + + + + | [facility] | [address] [facility] | [place] [address] | [phone] | + + + + + Type [...] + + + | BB BAND | LETTER SORTING MACHINE OPERATOR 0630 | | [facility] | | | | | | LABORATORY | | + + + + + + | UNIT # | [id number] | | [facility] | | | | [...] + + + | UNIT # | [id number] | | [facility] | | | | [...] + + + | UNIT # | [id number] | | [facility] | | | | [...] + + + | UNIT # | [id number] | | [facility] | | | | [...] | | RESULT | performed at [facility];88 | | LABORATORY | | | | [address];[place], [place] | | | | | | [address] | | | | + + + + + + + + | Specimen | + + | Blood | + + + + + + + | Performing | Address | City/State/Zipcode | Phone Number | | Organization | | | | + + + + + | [facility] | [address] | [place] [address] | [phone] | + + + + + Basic [...] | >60Comment: GFR <60: | >60 | [facility] | | | GFR | CHRONIC KIDNEY [...] | | | | | | MDRD [facility] traceable | | | | | | equation.Testing | | | | | | performed at [facility] | | | | | | [facility];[place], [place] | | | | | | [address] | | | | + + + + + + + + | Specimen | + + | Blood | + + + + + + + | Performing | Address | City/State/Zipcode | Phone Number | | Organization | | | | + + + + + | [facility] | [address] | [place] [address] | [phone] | + + + + + CBC [...] 0.07Comment: Testing | 0.00 - 0.10 | [facility] | | | Absolute | performed at [facility];[address] | K/uL | LABORATORY | | | | [address];[place] | | | | | | [address] | | | | + + + + + + + + | Specimen | + + | Blood | + + + + + + + | Performing | Address | City/State/Zipcode | Phone Number | | Organization | | | | + + + + + | [facility] | [address] | [place] [address] | [phone] | + + + + + Magnesium (10/06/2019 6:27 AM PDT) + + + + + + | Component | Value | Ref Range | Performed | Pathologist | | | | | At | Signature | + + + + + + | Magnesium | 1.6 (L)Comment: Testing | 1.7 - 2.4 mg/dL | [facility] | | | | performed at [facility] | | LABORATORY | | | | [facility];[place], [place] | | | | | | [address] | | | | + + + + + + + + | Specimen | + + | Blood | + + + + + + + | Performing | Address | City/State/Zipcode | Phone Number | | Organization | | | | + + + + + | [facility] | [address] | [place] [address] | [phone] | + + + + + Basic [...] | >60Comment: GFR <60: | >60 | [facility] | | | GFR | CHRONIC KIDNEY [...] | | | | | | MDRD IDPA traceable | | | | | | equation.Testing | | | | | | performed at [facility], [address] | | | | | | [facility], | | | | | | [place] [address] | | | | + + + + + + + + | Specimen | + + | Blood | + + + + + + + | Performing | Address | City/State/Zipcode | Phone Number | | Organization | | | | + + + + + | [facility] | [address] | [place] [address] | [phone] | + + + + + CBC [...] 0.08Comment: Testing | 0.00 - 0.10 | [facility] | | | Absolute | performed at [facility], [address] | K/uL | LABORATORY | | | | [address], | | | | | | [place] [address] | | | | + + + + + + + + | Specimen | + + | Blood | + + + + + + + | Performing | Address | City/State/Zipcode | Phone Number | | Organization | | | | + + + + + | [facility] | [address] [facility] | [place] [address] | [phone] | + + + + + Magnesium (10/05/2019 5:02 AM PDT) + + + + + + | Component | Value | Ref Range | Performed | Pathologist | | | | | At | Signature | + + + + + + | Magnesium | 1.7Comment: Testing | 1.7 - 2.4 mg/dL | [facility] | | | | performed at [facility] | | LABORATORY | | | | [address];[place], [place] | | | | | | [address] | | | | + + + + + + + + | Specimen | + + | Blood | + + + + + + + | Performing | Address | City/State/Zipcode | Phone Number | | Organization | | | | + + + + + | [facility] | [address] | [place] [address] | [phone] | + + + + + Basic [...] | >60Comment: GFR <60: | >60 | [facility] | | | GFR | CHRONIC KIDNEY [...] | | | | | | MDRD IDPA traceable | | | | | | equation.Testing | | | | | | performed at [facility], [address] | | | | | | [facility], | | | | | | [place] [address] | | | | + + + + + + + + | Specimen | + + | Blood | + + + + + + + | Performing | Address | City/State/Zipcode | Phone Number | | Organization | | | | + + + + + | [facility] | [address] | [place] [address] | [phone] | + + + + + CBC [...] [address], | | | | | | [place] [address] | | | | + + + + + + + + | Specimen | + + | Blood | + + + + + + + | Performing | Address | City/State/Zipcode | Phone Number | | Organization | | | | + + + + + | [facility] | [address] | [place] [address] | [phone] | + + + + + ECHO [...] Procedure Note | + + | Espinoza, [id number] - 10/04/2019 12:10 PM PDT | | [...] | | | | performed at [facility];[address] | | LABORATORY | | | | [address];[place], [place] | | | | | | [address] | | | | + + + [...] [facility] | [address] | [place] [address] | [phone] | + + + + + Protime [...] | | | | performed at [facility] | | | | | | [address] [facility];[place], [place] | | | | | | [address] | | | | + + + + + + + + | Specimen | + + | Blood | + + + + + + + | Performing | Address | City/State/Zipcode | Phone Number | | Organization | | | | + + + + + | [facility] | [address] | [place] [address] | [phone] | + + + + + Uric Acid (10/04/2019 4:26 AM PDT) + + + + + + | Component | Value | Ref Range | Performed | Pathologist | | | | | At | Signature | + + + + + + | Uric Acid | 3.2Comment: Testing | 3.2 - 8.6 mg/dL | [facility] | | | | performed at [facility], [address] | | LABORATORY | | | | [address], | | | | | | [place] [address] | | | | + + + + + + + + | Specimen | + + | Blood | + + + + + + + | Performing | Address | City/State/Zipcode | Phone Number | | Organization | | | | + + + + + | [facility] | [address] | [place] [address] | [phone] | + + + + + Lipid [...] | 80Comment: Testing | <100 mg/dL | [facility] | | | Calculated | performed at [facility], [address] | | LABORATORY | | | | [address], | | | | | | [place] [address] | | | | + + + + + + + + | Specimen | + + | Blood | + + + + + + + | Performing | Address | City/State/Zipcode | Phone Number | | Organization | | | | + + + + + | [facility] | [address] | [place] [address] | [phone] | + + + + + Comprehensive [...] | | | | | performed at [facility], [address] | | | | | | [address], | | | | | | [place] [address] | | | | + + + + + + + + | Specimen | + + | Blood | + + + + + + + | Performing | Address | City/State/Zipcode | Phone Number | | Organization | | | | + + + + + | [facility] | [address] | [place] [address] | [phone] | + + + + + CBC [...] | | | Absolute | performed at [facility], [address] | K/uL | LABORATORY | | | | [address], | | | | | | [place] [address] | | | | + + + + + + + + | Specimen | + + | Blood | + + + + + + + | Performing | Address | City/State/Zipcode | Phone Number | | Organization | | | | + + + + + | [facility] | [address] | [place] [address] | [phone] | + + + + + Coronavirus (COVID-19) NAAT (10/04/2019 12:49 AM PDT) + + + + + + | Component | Value | Ref Range | Performed | Pathologist | | | | | At | Signature | + + + + + + | SARS-CoV-2, | NEGATIVEComment: This | NEG | [facility] | | | NAAT | test was developed and | | LABORATORY | | | (COVID-19) | its performance | | | | | | characteristics | | | | | | [facility]. It | | | | | | [...] | | | | performed at [facility];[address] | | | | | | [facility];[place], [place] | | | | | | [address] | | | | + + + + + + + + | Specimen | + + | Tissue - Entire | | nasopharynx (body | | structure) | + + + + + + + | Performing | Address | City/State/Zipcode | Phone Number | | Organization | | | | + + + + + | [facility] | [address] | [place] [address] | [phone] | + + + + + ECG [...] | | | | XIANG HART MD ([id number]) | | | | | | on [...] LABORATORY | | | | [address];[place] [address] | | | | + + + + + + + + | Specimen | + + | Blood | + + + + + + + | Performing | Address | City/State/Zipcode | Phone Number | | Organization | | | | + + + + + | [facility] | [address] | [place] [address] | [phone] | + + + + + Comprehensive [...] | | | | performed at [facility] | | | | | | [facility];[place], [place] | | | | | | [address] | | | | + + + + + + + + | Specimen | + + | Blood | + + + + + + + | Performing | Address | City/State/Zipcode | Phone Number | | Organization | | | | + + + + + | [facility] | [address] | [place] [address] | [phone] | + + + + + CBC [...] 0.06Comment: Testing | 0.00 - 0.10 | [facility] | | | Absolute | performed at [facility];[address] | K/uL | LABORATORY | | | | [address];[place], [place] | | | | | | [address] | | | | + + + + + + + + | Specimen | + + | Blood | + + + + + + + | Performing | Address | City/State/Zipcode | Phone Number | | Organization | | | | + + + + + | [facility] | [address] | [place] [address] | [phone] | + + + + + documented [...]
--- OUTSIDE RECORDS SUMMARY | ~2019-11-17 | XMS | Encounter Summary ---
Demographics + + + | Address | [address] | | | [place] [address] | + + + | Home Phone | | + + + | Preferred Language | Unknown | + + + | Marital Status | Single | + + + | Zoroastrian Affiliation | BAP | + + + | Race | White | + + + | Ethnic Group | Not or | + + + Author + + + | Author | [facility] | + + + | Organization | [facility] | + + + | Address | Unknown | + + + | Phone | Unavailable | + + + Support + + +---------+ + | Name | Relationship | Address | Phone | + + +---------+ + | Lele Conley | ECON | Unknown | | + + +---------+ + Care Team Providers + +------+ + | Care Forest Scientist Name | Role | Phone | [...] | | | Transcribed | [facility] | Beny Ayesha Catherine | | | | | Florin Mailcode: [address] | [place], [place] | | | | | [facility] | [address] | | | | | [place], [place] | [phone] | | | | | [address] | | | | | | [phone] | | | +--------+ + + + [...] 04/30/2007 12:00 AM PSTAssociated Order(s): OPERATION RECORD [id number] FROILAN JUAREZ [id number] Date: 04/30/2007 Attending Surgeon: [place] Churchill M.D. Co-Surgeon: Rudolph Brewer M.D. Water Treatment Plant Mechanic(s): Jacky Morgan M.D. 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 Procedures Performed: Endovascular repair of abdominal aortic pseudoaneurysm. Anesthesia: General. Indications: This is a 47-year-old man who was flown to [facility] with [...] 2. The aneurysm was repaired with 2 [employer] endovascular components. The most proximal component is [...] direct vision into the abdominal aorta. A 4-Maldivian pigtail catheter was then placed over the guidewire at approximately the level of the renal artery origins. A separate site on the graft limb was then punctured with an 18-gauge needle, and the guidewire advanced into the abdominal aorta. The patient was systematically heparinized at this point. A 16-Maldivian sheath was then placed over the guidewire [...] the right aortofemoral graft limb. An iliac medicare sales representative that is 12 mm at the proximal [...] condition. [place] Churchill M.D. OUSMANE / HS [id number] / [id number] / [id number] / Electronically signed by [place] Churchill 05-13-2007 [...] Churchill MD - 04/30/2007 12:00 AM PST [id number] | | [id number] FROILAN JUAREZ [id number] Date: | | 04/30/2007 Attending Surgeon: [place] Churchill M.D. Co-Surgeon: Rudolph Brewer M.D. | | Water Treatment Plant Mechanic(s): Leroy Jay M.D. Marc Arevalo M.D. Preoperative [...] The aneurysm was repaired with 2 [employer] endovascular components. | | The most proximal [...] into the | | abdominal aorta. A 4-Maldivian pigtail catheter was then placed over the guidewire at | | approximately the level of the renal artery origins. A separate site on the graft limb | | was then punctured with an 18-gauge needle, and the guidewire advanced into the | | abdominal aorta. The patient was systematically heparinized at this point. A 16-Maldivian | | sheath was then placed over [...] aortofemoral graft limb. An | | iliac medicare sales representative that is 12 mm at the proximal [...] condition. [place] Churchill M.D. OUSMANE / REBEL [id number] / [id number] / [id number] / D: | | 04/30/2007 Electronically signed [...] direct vision into the abdominal aorta. A 4-Maldivian pigtail | | catheter was then placed over the guidewire at approximately the level of | | the renal artery origins. | | | | A separate site on the graft limb was then punctured with an 18-gauge | | needle, and the guidewire advanced into the abdominal aorta. The patient | | was systematically heparinized at this point. A 16-Maldivian sheath was then | | placed over [...] | | aortofemoral graft limb. An iliac medicare sales representative that is 12 mm at the proximal [...] | | GJL / HS | | [id number] / [id number] / [id number] / | | | | | | | | | | | | Electronically signed by [place] Churchill 05-13-2007 01:33:44 PM | | | | | + + documented in this encounter Visit Diagnoses Not on filedocumented in this encounter"
--- OUTSIDE RECORDS SUMMARY | ~2019-11-17 | XMS | Encounter Summary ---
Demographics + + + | Address | [address] | | | [place] [address] | + + + | Home Phone [...] Phone | + + +---------+ + | Leel Conley | ECON | Unknown | | + + +---------+ + Care Team Providers + +------+ + | Care Territory Service Representative Name | Role | Phone | + +------+ + | No, Physician | PCP | Unavailable | + +------+ + Encounter Details +--------+ + + + + | Date | Type | Department | Care Team | Description | +--------+ + + + + | 10/06/ | Anesthesia | [facility] | Rudolph Lowery | | | 2020 | Event | [facility] | MD [address] | | | | | [address]PER[address] | [address] | | | | | [address] | [place] [address] | | | | | [place], [place] | [phone] | | | | | [address] | | | | | | [phone] | Hossein Gregorio, Taisha, | | | | | | GENETIC SCIENTIST [address] [facility] | | | | | | [place] [address] | | | | | | [phone] | | | | | | | [...] EVALUATION Jairo Covarrubiases 59 y.o. male 1960 [id number] Procedure(s): REPAIR PSEUDOANEURYSM- FEMORAL (Right ) Medical,anesthesia, [...] who presents as a tra nsfer from [facility] ED for pseudoaneurysm of the right [...] | | | | | | [place] | | | | | | [address] | | | | | | | | +--------+ + + + + | 02/06/ | Office | Vascular Surgery | Ricci De León DNP | | 2019 | Visit | | [address] | | | | | | [place] | | | | | | [address] | | | | | | | | | | | | Magdiel Arteaga MD | | | | | | [address] | | | | | | [place] [facility] | | | | | | [place] [address] | | | | | | [phone] | | | | | | | | +--------+ + + + + documented as of this encounter Visit Diagnoses Not on filedocumented in this encounter"
--- OUTSIDE RECORDS SUMMARY | ~2019-11-17 | XMS | Encounter Summary ---
Demographics + + + | Address | [address] | | | [place] [address] | + + + | Home Phone | | + + + | Preferred Language | Unknown | + + + | Marital Status | Single | + + + | Taoism Affiliation | BAP | + + + | Race | White | + + + | Ethnic Group | Not or | + + + Author + + + | Author | [facility] | + + + | Organization | [facility] | + + + | Address | Unknown | + + + | Phone | Unavailable | + + + Support + + +---------+ + | Name | Relationship | Address | Phone | + + +---------+ + | Lele Conley | ECON | Unknown | | + + +---------+ + Care Team Providers + +------+ + | Care Trailer Mechanic Name | Role | Phone | + +------+ + PCP | Unavailable | + +------+ + Encounter Details +--------+ + + + + | Date | Type | Department | Care Team | Description | +--------+ + + + + | 04/30/ | Respiratory | Respiratory | Nikita Holliday | | | 2007 | Therapy | Therapy [address] [facility] | [phone] | | | | | [address] | | | | | | Mailcode: [address] | | | | | | [place], [place] | | | | | | [address] | | | | | | [phone] | | | +--------+ + + + [...] Caputo, | | | | | | CONTRACT ASSOCIATE MANAGER | | | | + + + [...] [facility] | [address] | [place], [place] | | | THERAPY | [facility] | [address] | | + + + + + | [facility] | [address] [facility] [address] | [place], [place] | | | THERAPY | [facility] | [address] | | + + + + + [...] | THERAPY | | | | Moy, CONTRACT ASSOCIATE MANAGER | | | | + + + [...] [facility] | [address] | [place], [place] | | | THERAPY | [address] | [address] | | + + + + + | [facility] | [address] | [place], [place] | | | THERAPY | [address] | [address] | | + + + + + documented in this encounter Visit Diagnoses Not on filedocumented in this encounter"
--- OUTSIDE RECORDS SUMMARY | ~2019-11-17 | XMS | Encounter Summary ---
Demographics + + + | Address | [address] | | | [place] [address] | + + + | Home Phone [...] Team Providers + +------+ + | Care Passenger Representative Name | Role | Phone | [...] | | | | | disease) | [place], [place] | | | | | | ([facility]) | [address] | | | | | | Procedures | Phone: | | | | | | VAS Lwr Ext | [phone] | | | | | | Art Bilat w | Fax: | | | | | | DIANNE Multi | [phone] | | | | | | Lvl [...] | | | | | disease) | [place], [place] | | | | | | ([facility]) | [address] | | | | | | Procedures | Phone: | | | | | | VAS Lwr Ext | [phone] | | | | | | Art Bilat w | Fax: | | | | | | DIANNE Multi | [phone] | | | | | | Lvl [...] | | ULTRASOUND [address] | [place], [place] | ([facility]) | | | | [address] | [address] | | | | | [place], [place] | | | | | | [address] | | | | | | [phone] | | | +--------+ + + + [...] [place] | | | | | | [address] | | | | | | | | +--------+ + + + + | 02/06/ | Office | Vascular Surgery | iRcci De León DNP | | | 2019 | Visit | | [address] | | | | | | [place], [place] | | | | | | [address] | | | | | | | | | | | | Magdiel Arteaga MD | | | | | | [address] | | | | | | [place] [address] | | | | | | [place] [address] | | | | | | [phone] | | | | | | | [...] LEVEL | | PDT | ([facility]) | results section. | + [...] cm/sec Right | | | lower extremity: STONE FABRICATOR prox: 129 cm/sec STONE FABRICATOR dist: 120 cm/sec | | | Right [...] Procedure Note | + + | Espinoza, [id number] - 11/08/2019 4:04 PM PDT | | [...] | | Right lower extremity: | | STONE FABRICATOR prox: 129 cm/sec | | STONE FABRICATOR dist: 120 cm/sec | | | | [...]
--- OUTSIDE RECORDS SUMMARY | ~2019-11-17 | XMS | Encounter Summary ---
Demographics + + + | Address | [address] | | | [place] [address] | + + + | Home Phone | | + + + | Preferred Language | Unknown | + + + | Marital Status | Single | + + + | Yazidi Affiliation | BAP | + + + [...] Team Providers + +------+ + | Care Material Damage Adjuster Name | Role | Phone | + [...] | | | | cribed | | [facility] | | | | | | [place] [address] | | | | | | [phone] | | +--------+ + + + + [...] Bina Harrington - 05/18/2007 9:27 AM PDT [id number] 05/12/19 08 [id number] FROILAN JUAREZ [id number] Date: 05/12/2007 Patient: Jairo Theodore MR# [id number] The patient called to say that he is not able to keep his appointment on May 16, 2007, due to transportation issues. The patient cannot afford gas from [employer]. He states he is doing well. His incision line is without erythema, edema, or exudate. He is having no pain and not requiring any oxycodone. He is in the process of finding a PCP. He does have a 6-month refill of his metoprolol which he is taking. Bina Harrington, N.P. / [id number] / [id number] / [id number] / [id number] C: 05/18/2007 rosa documented in this encounter Plan of Treatment Not on filedocumented as of this encounter Visit Diagnoses Not on filedocumented in this encounter"
--- OUTSIDE RECORDS SUMMARY | ~2019-11-17 | XMS | Encounter Summary ---
Demographics + + + | Address | [address] | | | [place] [address] | + + + | Home Phone [...] + + + | Author | [facility] | + + + | Organization | [facility] | + + + | Address | Unknown | + + + | Phone | Unavailable | + + + Support + + +---------+ + | Name | Relationship | Address | Phone | + + +---------+ + | Lele Conley | ECON | Unknown | | + + +---------+ + Care Team Providers + +------+ + | Care Nut Orchardist Name | Role | Phone | + [...] [address] | | | | | | [place], [place] | | | | | | [address] | | | +--------+ + + + [...]
--- OUTSIDE RECORDS SUMMARY | ~2019-11-17 | XMS | Encounter Summary ---
Demographics + + + | Address | [address] | | | [place] [address] | + + + | Home Phone | | + + + | Preferred Language | Unknown | + + + | Marital Status | Single | + + + | Cheondoism Affiliation | BAP | + + + [...] Providers + +------+ + | Care Financial Underwriter Name | Role | Phone | + [...] | | | | nscribed | | [facility] | | | | | | [place] [address] | | | | | | [phone] | | +--------+ + + + + [...] Bina Harrington - 05/13/2007 1:35 PM PDT [id number] 8005/02/2007 [id number] THEODOREKOLE JUAREZ [id number] Admission Date: 04/29/2007 Discharge Date: 05/02/2007 Staff Physician: Bina Harrington N.P. ADDENDUM The patient phoned prescription of Keflex 500 mg p.o. q.i.d. x5 days to [facility] at [phone]. Bina Harrington N.P. / [id number] / [id number] / [id number] / Reviewed or Edited By Bina Harrington on 05-04-2007 Electronically signed by Orlando Churchill 05-13-2007 01:33:53 PM documented in this encounter Plan of Treatment Not on filedocumented as of this encounter Visit Diagnoses Not on filedocumented in this encounter"
--- OUTSIDE RECORDS SUMMARY | ~2019-11-17 | XMS | Encounter Summary ---
Demographics + + + | Address | [address] | | | [place] [address] | + + + | Home Phone [...] Author + + + | Author | [facility] | | | and [place] | + + + | Organization | [facility] | | [...] Team Providers + +------+ + | Care Lather Apprentice Name | Role | Phone | [...] + + + | 10/16/ Telephone | [facility] | Rachel Juarez, | Follow-up | | 2019 | | VASCULAR SURGERY | RN | | | | | [address] | | | | | | [place] | | | | | | [address] | | | | | | [phone] | | | +--------+ + + + [...] Justinjeanne Iveth Desmond [facility] and [...] | | | | | | [place] | | | | | | [place] [address] | | | | | | [phone] | | | | | | | | +--------+ + + + + documented as of this encounter Visit Diagnoses Not on filedocumented in this encounter"
--- OUTSIDE RECORDS SUMMARY | ~2019-11-17 | XMS | Encounter Summary ---
Demographics + + + | Address | [address] | | | [place] [address] | + + + | Home Phone | | + + + | Preferred Language | Unknown | + + + | Marital Status | Single | + + + | Baptist Affiliation | BAP | + + + | Race | White | + + + | Ethnic Group | Not or | + + + Author + + + | Author | [facility] | + + + | Organization | [facility] | + + + | Address | Unknown | + + + | Phone | Unavailable | + + + Support + + +---------+ + | Name | Relationship | Address | Phone | + + +---------+ + | Lele Conley | ECON | Unknown | | + + +---------+ + Care Team Providers + +------+ + | Care Equipment Cleaner And Tester Name | Role | Phone | + [...] | | | | Physicians Katelyn, | [place], [place] | | | | | [address] [place] [address] | [address] | | | | | [place], [place] | [phone] | | | | | [address] | | | | | | [phone] | | | +--------+ + + + [...] Jairo know this was called to his [facility] in [place] at [phone]. 10 :25 AM PDTTelephone Encounter - Nicolas [...]
--- OUTSIDE RECORDS SUMMARY | ~2019-11-17 | XMS | Clinical Summary ---
Demographics + + + | Address | [address] | | | [place] [address] | + + + | Home Phone [...] Author + + + | Author | [facility] | | | and [place] | + + + | Organization | [facility] | | | [...] Team Providers + +------+ + | Care Home Theatre Technician Name | Role | Phone | [...] automatically from request for surgery | | [id number] | + + Encounters +--------+ + + [...] | | | | | | disease) ([facility]); S/P | | | | | [...] | | | | | | ([facility]) | +--------+ + + + + [...] Medicine | Jairo Renner MD | 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 - | Encounter | | Latoya Oh DO | right aorto femoral | | | | | Chyna Thomas MD | bypass (Primary | | 10/15/ | | | Tera Vázquez | Dx); Peripheral | | 2020 | | | Jose Logan MD | arterial disease | | | | | Mundo Pack | ([facility]); | | | | | Poli Powell MD | Pseudoaneurysm | | | | | | ([facility]); Peripheral | | | | | | arterial disease | | | | | | ([facility]); Cellulitis of | | | | | | right foot; | | | | | | 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 ([facility]); | | | | | | [...] [place] | | | | | | [address] | | | | | | | | +--------+ + + + + | 02/06/ | Office | Vascular Surgery | Ricci De León DNP | | | 2019 | Visit | | [address] | | | | | | [place] | | | | | | [address] | | | | | | | | | | | | Magdiel Arteaga MD | | | | | | [address] | | | | | | [facility] | | | | | | [place] [address] | | | | | | [phone] | | | | | | | [...] Lot | + +-------+------+ +--------+--------+--------+ | Graft Salineno Propaten [id number] | Graft | | WLGO | | | [id number] | | - [id number]: | | | | | | 50A | | Qty: 1 on 10/07/2019 by | | | | | | /[id number] | | Magdiel Arteaga MD at [facility] | | | | | | [id number] | | [facility] | | | | | | 5 /NA | | CENTER | | | | | | | + +-------+------+ +--------+--------+--------+ | Graft Hemgrd Knit 43eur5mn - | Graft | | MAQUET | | | [id number] | | [id number]: Qty: 1 | | | CARDIOVASCU | | | 8-40 | | on 10/07/2019 by Magdiel Arteaga | | | LAR US | | | /[id number] | | MD Norma at [facility] | | | SALES - | | | [address] | | [facility] | | | MAQU | | | /[id number] | + +-------+------+ +--------+--------+--------+ | Graft Vas Propaten 6-80mm - | Graft | | WLGO | | 02/22/ | [id number] | | [id number]: Qty: | | | | | 2023 | 80A | | 1 on 10/08/2019 by Chandler, | | | | | | /[id number] | | Magdiel Green MD at [facility] | | | | | | 29PP01 | | [facility] | | | | | | 1 /NA | + +-------+------+ +--------+--------+--------+ | Graft Vas Propaten 6-80mm - | Graft | | WLGO | | 06/27/ | [id number] | | [id number]: Qty: | | | | | 4 | 80A | | 1 on 10/08/2019 by Chandler, | | | | | | /[id number] | | Magdiel Green MD at [facility] | | | | | | 96PP02 | | [facility] | | | | | | 2 [...] | MULTI LEVEL | | PDT | ([facility]) | results section. | + +--------+ [...] BILATERAL | | 9:22 AM | ([facility]) Peripheral | | | (51692) | | PDT | arterial disease | | | | | | ([facility]) | | + +--------+ + + + | BYPASS GRAFT | | 10/08/2019 | Pseudoaneurysm | | | FEMORAL-POPLITEAL | | 9:22 AM | ([facility]) Peripheral | | | | | PDT | arterial disease | | | | | | ([facility]) | | + +--------+ + + [...] +--------+ + + + | POC MIRNA, SCOTT8, | Routin | 10/07/2019 | | [...] | FEMORAL-FEMORAL | | 7:07 AM | ([facility]) | | | | | PDT [...] cm/sec Right | | | lower extremity: MILITARY SOURCE OPERATIONS SPECIALIST prox: 129 cm/sec MILITARY SOURCE OPERATIONS SPECIALIST dist: 120 cm/sec | | | Right [...] Procedure Note | + + | Espinoza, [id number] - 11/08/2019 4:04 PM PDT | | [...] | | Right lower extremity: | | MILITARY SOURCE OPERATIONS SPECIALIST prox: 129 cm/sec | | MILITARY SOURCE OPERATIONS SPECIALIST dist: 120 cm/sec | | | | [...] | | | performed at [facility], [address] | | | | | [address] [facility] [address], | | | | | | [place] [address] | | | | + + + + + + + + | Specimen | + + | Blood | + + + + + + + | Performing | Address | City/State/Zipcode | Phone Number | | Organization | | | | + + + + + | [facility] | [address] | [place] [address] | [phone] | + + + + + Potassium [...] - 4.9 | [facility] | | | | performed at [facility];[address] | mmol/L | LABORATORY | | | | [address];[place] | | | | | | [address] | | | | + + + + + + + + | Specimen | + + | Blood | + + + + + + + | Performing | Address | City/State/Zipcode | Phone Number | | Organization | | | | + + + + + | [facility] | [address] | [place] [address] | [phone] | + + + + + Magnesium [...] 2.4 mg/dL | [facility] | | | | performed at [facility];8 | | LABORATORY | | | | [address];[place] | | | | | | [address] | | | | + + + + + + + + | Specimen | + + | Blood | + + + + + + + | Performing | Address | City/State/Zipcode | Phone Number | | Organization | | | | + + + + + | [facility] | [address] | [place] [address] | [phone] | + + + + + Basic [...] | | | performed at [facility], [address] | | | | | | [address] [facility], | | | | | | [place] [address] | | | | + + + + + + + + | Specimen | + + | Blood | + + + + + + + | Performing | Address | City/State/Zipcode | Phone Number | | Organization | | | | + + + + + | [facility] | [address] | [place] [address] | [phone] | + + + + + Phosphorus [...] 4.8 mg/dL | [facility] | | | | performed at [facility];[address] | | LABORATORY | | | | [facility];[place], [place] | | | | | | [address] | | | | + + + + + + + + | Specimen | + + | Blood | + + + + + + + | Performing | Address | City/State/Zipcode | Phone Number | | Organization | | | | + + + + + | [facility] | [address] | [place] [address] | [phone] | + + + + + Hemoglobin [...] M | | | | performed at [facility];[address] | | LABORATORY | | | | [address];[place] | | | | | | [address] | | | | + + + + + + + + | Specimen | + + | Blood | + + + + + + + | Performing | Address | City/State/Zipcode | Phone Number | | Organization | | | | + + + + + | [facility] | [address] | [place] [address] | [phone] | + + + + + Clostridium [...] at | | | | | | [facility];[address] | [address];[place] [address] | | | | + + + + + + + + | Specimen | + + | Stool - Stool | | specimen (specimen) | + + + + + + + | Performing | Address | City/State/Zipcode | Phone Number | | Organization | | | | + + + + + | [facility] | [address] | [place] [address] | [phone] | + + + + + Red [...] + + + | BB BAND | [id number] | | [facility] | | | | | | LABORATORY | | + + + + + + | UNIT # | [id number] | | [facility] | | | | [...] | | | RESULT | performed at [facility];[address] | | LABORATORY | | | | [address];[place], [place] | | | | | | [address] | | | | + + + + + + | UNIT # | [id number] | | [facility] | | | | [...] M LABORATORY | [address] | [place] [address] | [phone] | + + + + + Red [...] | ORDER RECEIVED IN BLOOD | | [facility] | | | COMMENT | BANK. | | LABORATORY | | + + + + + + | BLOOD BANK | Testing performed at | | [facility] | | | COMMENT | [facility];[address] [facility] | | LABORATORY | | | | Bl;[place] [address] | | | | + + + + + + + + | Specimen | + + | | + + + + + + + | Performing | Address | City/State/Zipcode | Phone Number | | Organization | | | | + + + + + | [facility] | [address] | [place] [address] | [phone] | + + + + + Comprehensive [...] | | | | | performed at [facility];[address] | | | | | | [address];[place], [place] | | | | | | [address] | | | | + + + + + + + + | Specimen | + + | Blood | + + + + + + + | Performing | Address | City/State/Zipcode | Phone Number | | Organization | | | | + + + + + | [facility] | [address] | [place] [address] | [phone] | + + + + + Urinalysis [...] - 1.030 | [facility] | | | [address], | | | LABORATORY | | | [...] | | LABORATORY | | | | [address], [address] | | | | | | [place] | | | | | | [address] | | | | + + + [...] + + | [facility] | [address] | [place] [address] | [phone] | + + + + + Osmolality, [...] | | | | | [place] [address] | | | | + + + [...] + + | [facility] | [address] | [place] [address] | [phone] | + + + + + Culture, [...] | [facility] | | | Requests | [facility];[address] | | LABORATORY | | | | [address];[place] [address] | | | | + + + + + + | RESULT | NO GROWTH 6 DAYS | | [facility] | | | | | | LABORATORY | | + + + + + + | RESULT | Testing performed at | | [facility] | | | | [facility], [address] | | LABORATORY | | | | [address], [place] | | | | | | [address]Ijefqzi: Testing | | | | | | performed at [facility], [address] | | | | | | [address], [place] | | | | | | [address] | | | | + + + [...] + + | [facility] | [address] | [place] [address] | [phone] | + + + + + XR [...] Procedure Note | + + | Espinoza, [id number] - 10/11/2019 10:42 AM PDT | | [...] [facility] | | | | performed at [facility];[address] | mmol/L | LABORATORY | | | | [address];[place], [place] | | | | | | [address] | | | | + + + + + + + + | Specimen | + + | Blood | + + + + + + + | Performing | Address | City/State/Zipcode | Phone Number | | Organization | | | | + + + + + | [facility] | [address] | [place] [address] | [phone] | + + + + + Osmolality, Serum (10/11/2019 9:30 AM PDT) + + + + + + | Component | Value | Ref Range | Performed | Pathologist | | | | | At | Signature | + + + + + + | Osmolality, | 262 (L)Comment: Testing | 280 - 301 | [facility] | | | Serum | performed at [facility], [address] | mOsm/kg | LABORATORY | | | | [address], | | | | | | [place] [address] | | | | + + + + + + + + | Specimen | + + | Blood | + + + + + + + | Performing | Address | City/State/Zipcode | Phone Number | | Organization | | | | + + + + + | [facility] | [address] | [place] [address] | [phone] | + + + + + CBC [...] | | | Absolute | performed at [facility];[address] | K/uL | LABORATORY | | | | [address];[place] | | | | | | [address] | | | | + + + + + + + + | Specimen | + + | Blood | + + + + + + + | Performing | Address | City/State/Zipcode | Phone Number | | Organization | | | | + + + + + | [facility] | [address] | [place] [address] | [phone] | + + + + + Lactic Acid (10/09/2019 5:12 AM PDT) + + + + + + | Component | Value | Ref Range | Performed | Pathologist | | | | | At | Signature | + + + + + + | Lactate, | 1.8Comment: Testing | 0.4 - 2.0 | [facility] | | | Serum | performed at [facility];[address] | mmol/L | LABORATORY | | | | [address];[place], [place] | | | | | | [address] | | | | + + + + + + + + | Specimen | + + | Blood | + + + + + + + | Performing | Address | City/State/Zipcode | Phone Number | | Organization | | | | + + + + + | [facility] | [address] | [place] [address] | [phone] | + + + + + Procalcitonin (10/09/2019 5:10 AM PDT) + + + + + + | Component | Value | Ref Range | Performed | Pathologist | | | | | At | Signature | + + + + + + | PROCALCITON | 0.65 (H)Comment: | <0.5 ng/mL | [facility] | | | IN | INTERPRETIVE [...] | | | | | | at [facility];[address] [place] [address] | | | | | | [facility];[place] [address] | | | | + + + + + + + + | Specimen | + + | Blood | + + + + + + + | Performing | Address | City/State/Zipcode | Phone Number | | Organization | | | | + + + + + | [facility] | [address] | [place] [address] | [phone] | + + + + + POC [...] | | | POC | performed at [facility];[address] | | LABORATORY | | | | [address];[place], [place] | | | | | | [address] | | | | + + + + + + + + | Specimen | + + | | + + + + + + + | Performing | Address | City/State/Zipcode | Phone Number | | Organization | | | | + + + + + | [facility] | [address] | [place] [address] | [phone] | + + + + + PTT [...] [facility] | | | | performed at [facility];[address] | | LABORATORY | | | | [address];[place], [place] | | | | | | [address] | | | | + + + + + + + + | Specimen | + + | Blood | + + + + + + + | Performing | Address | City/State/Zipcode | Phone Number | | Organization | | | | + + + + + | [facility] | [address] | [place] [address] | [phone] | + + + + + POC [...] | | | POC | performed at [facility];[address] | g/dL | LABORATORY | | | | [address] [place];[place] | | | | | | [address] | | | | + + + + + + + + | Specimen | + + | | + + + + + + + | Performing | Address | City/State/Zipcode | Phone Number | | Organization | | | | + + + + + | [facility] | [address] | [place] [address] | [phone] | + + + + + Red [...] | | | | | performed at [facility];[address] | | | | | | [facility];[place], [place] | | | | | | [address] | | | | + + + + + + + + | Specimen | + + | Blood - Artery, | | Radial, Right | + + + + + + + | Performing | Address | City/State/Zipcode | Phone Number | | Organization | | | | + + + + + | [facility] | [address] [facility] | [place] [address] | [phone] | + + + + + Surgical [...] including foreign body giant cell reaction. AMB:[facility]:C2NR MICROSCOPIC | | | EXAMINATION:Histologic sections of [...] attached red-white | | | fibromembranous tissue. Sash Clamp Operator sections are submitted in | | [...] | LABORATORY:The technical component was performed by [facility] | | | [facility], [address] [place] [address] (Marine Designer: | | | Asia Rodriguez MD; CLIA# [id number]).Professional interpretation was | | | performed by [facility], [address] | | | [place] [address] (Marine Designer: Solitario | | | Jacky Recio; CLIA#: [id number]). Diagnostician: Asia Rodriguez | | | MDPathologistElectronically Signed 10/10/2019 | | | | | |PERFORMING LABORATORY: | | |The technical component was performed by [facility], [address] [place] [address] (Marine Designer: Asia Rodriguez MD; CLIA# [id number]). | | |Professional interpretation was performed by [facility], [address] [place] [address] (Marine Designer: Solitario Recio M.D.; CLIA#: [id number]). | | | | | |Diagnostician: Asia [...] | Rudolph Lowery MD Authorizing provider: Rudolph Lowery, | | | MD Please see intraoperative [...] Procedure Note | + + | Espinoza, [id number] - 10/04/2019 12:10 PM PDT | | [...] [facility] | | | | performed at [facility];[address] | | LABORATORY | | | | [address];[place] | | | | | | [address] | | | | + + + + + + + + | Specimen | + + | Tissue - Both | | anterior nares (body | | structure) | + + + + + + + | Performing | Address | City/State/Zipcode | Phone Number | | Organization | | | | + + + + + | [facility] | [address] | [place] [address] | [phone] | + + + + + Lipid [...] | Calculated | performed at [facility], [address] | | LABORATORY | | | | [address], | | | | | | [place] [address] | | | | + + + + + + + + | Specimen | + + | Blood | + + + + + + + | Performing | Address | City/State/Zipcode | Phone Number | | Organization | | | | + + + + + | [facility] | [address] | [place] [address] | [phone] | + + + + + Uric Acid (10/04/2019 4:26 AM PDT) + + + + + + | Component | Value | Ref Range | Performed | Pathologist | | | | | At | Signature | + + + + + + | Uric Acid | 3.2Comment: Testing | 3.2 - 8.6 mg/dL | [facility] | | | | performed at [facility], [address] | | LABORATORY | | | | [address], | | | | | | [place] [address] | | | | + + + + + + + + | Specimen | + + | Blood | + + + + + + + | Performing | Address | City/State/Zipcode | Phone Number | | Organization | | | | + + + + + | [facility] | [address] | [place] [address] | [phone] | + + + + + Coronavirus (COVID-19) NAAT (10/04/2019 12:49 AM PDT) + + + + + + | Component | Value | Ref Range | Performed | Pathologist | | | | | At | Signature | + + + + + + | SARS-CoV-2, | NEGATIVEComment: This | NEG | [facility] | | | NAAT | test [...] | | | | | performed at [facility] | | | | | | [address];[place], [place] | | | | | | [address] | | | | + + + + + + + + | Specimen | + + | Tissue - Entire | | nasopharynx (body | | structure) | + + + + + + + | Performing | Address | City/State/Zipcode | Phone Number | | Organization | | | | + + + + + | [facility] | [address] | [place] [address] | [phone] | + + + + + ECG [...] | | | | ELLA HART MD ([id number]) | | | | | | on [...] +---------+--------+ | [place] | [place] | [id number] | 10/03/19 | | | Indemn | | | COMMUN | | 20-Pre | | | ity | | | ITY | | sent | | | | | | CARE | | | | | | + +--------+ +--------+ +---------+--------+ | [employer]MIN | [place] | [id number] | | | | Indemn | | | NS | | 009-Pr | | | ity | | | ADMIN | | esent | | | | | | [place] | | | | | | | | [place] | | | | | | + +--------+ +--------+ +---------+--------+ | MEDICARE | MEDICA | [id number] | 04/30/19 | [phone] | | Medica | | | RE | | 08-Pre | 5 | | re | | | PART A | | sent | | | | | | AND B | | | | | | + +--------+ +--------+ +---------+--------+ | MEDICAID [place] | MEDICA | [id number] | 05/31/19 | [phone] | | Medica [...] Self | [birth year] | [address] | | | al/Fam | | 8 | [phone] | [address] [place], | | | [place] | | | 0 (Home) | [place] [address] | + +--------+ +--------+ + + | Jairo Theodore | Person | Self | [birth year] | [address] | | | al/Fam | | 1960 | [phone] | [address] [place], | | | [place] | | | 0 (Home) | [place] [address] | + +--------+ +--------+ + + Advance Directives + + + + + | Type | Date Recorded | Patient | Explanation | | | | Sash Clamp Operator | | + + + + + | Power of | | | | | Regulatory Manager | | | | + + + [...]
--- OUTSIDE RECORDS SUMMARY | ~2019-11-17 | XMS | Encounter Summary ---
Demographics + + + | Address | [address] | | | [place] [address] | + + + | Home Phone | | + + + | Preferred Language | Unknown | + + + | Marital Status | Single | + + + | Oriental Orthodox Affiliation | BAP | + + + | Race | White | + + + | Ethnic Group | Not or | + + + Author + + + | Author | [facility] | + + + | Organization | [facility] | + + + | Address | Unknown | + + + | Phone | Unavailable | + + + Support + + +---------+ + | Name | Relationship | Address | Phone | + + +---------+ + | Lele Conley | ECON | Unknown | | + + +---------+ + Care Team Providers + +------+ + | Care Extractor Machine Operator Name | Role | Phone [...] | | | | | INDIGO Res[address] [facility] | [facility] [address] | | | | | [address] Mailcode: [address] | [place], [place] | | | | | [facility] | [address] | | | | | [place], [place] | [phone] | | | | | [address] | | | | | | [phone] | | | +--------+ + + + [...] + + + + | PRODUCT | [id number] | | [facility] | | | UNIT [...] DEPARTMENT OF | [address] | [place] [address] | | | PATHOLOGY | [address] | | | + + + + + | [facility] DEPARTMENT OF | [address] | [place] [address] | | | PATHOLOGY | [address] [...] DEPARTMENT OF | [address] | [place] [address] | | | PATHOLOGY | [address] | | | + + + + + | [facility] | [address] | [place] [address] | | | PATHOLOGY | [address] | | | + + + + + documented in this encounter Visit Diagnoses Not on filedocumented in this encounter"
[~2019-11-17 23:52] MED LIST changes: +ACETAMINOPHEN325 M1 PO; +ASPIRIN81 MG PO; +ATORVASTATIN CA40 MG PO; +CALCIUM ANTACI200 MG PO; +CEPHALEXIN500 MG PO; +CLOPIDOGREL75 MG PO; +PANTOPRAZOLE SO40 MG PO; +SUCRALFATE1 GM PO
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
[2019-11-18] MEDS ORDERED: FUROSEMIDE20 MG PO (09:48)
[2019-11-18] MEDS ORDERED: CEPHALEXIN500 MG PO (09:48)
[2019-11-18] MEDS ORDERED: POTASSIUM CHLO10 ME2 PO (09:49)
== END 2019-11-18 03:32 | disposition left against medical advice (07) ==
LOC: ED 23:52
DX: K56.609 Unspecified intestinal obstruction, unspecified as to partial versus complete obstruction (principal); F17.200 Nicotine dependence, unspecified, uncomplicated; Z79.899 Other long term (current) drug therapy
CPT/HCPCS: 74177; 80053; 81001; 83690; 83735; 85025; 96361; 99284-25; J1170; J1885; J2405; J7030; Q9967

== ENCOUNTER 2019-11-18 09:15 | Inpatient (IN) | payer MEDICARE, OTHER ==
[~2019-11-18] VITALS: Ht 167.6 cm; Wt 58.1 kg
--- OUTSIDE RECORDS SUMMARY | ~2019-11-18 | XMS | Encounter Summary ---
Demographics + + + | Address | [address] | | | [place] [address] | + + + | Home Phone | | + + + | Preferred Language | Unknown | + + + | Marital Status | Single | + + + | Worship Affiliation | 1009 | + + + | Race | White | + + + | Ethnic Group | Not or | + + + Author + + + | Author | [facility] | | | and [place] | + + + | Organization | [facility] | | | [...] Team Providers + +------+ + | Care Vegetable Packer Name | Role | Phone | + +------+ + PCP | Unavailable | + +------+ + Encounter Details +--------+ + + + + | Date | Type | Department | Care Team | Description | +--------+ + + + + | 11/16/ | Hospital | [facility] | Conversion | Pain | | 2017 | Encounter | CONVERSION [address] | Transaction, | | | | | [address] | Provider Unknown | | | | | [place] | | | | | | [phone] | (Fax) | | | | | [phone] | | | +--------+ + + + [...] as of this encounter Plan of Treatment +--------+ + + + + | Date | Type | Specialty | Care Team | Description | +--------+ + + + + | 02/06/ | Appointment | Radiology | Ricci De León DNP | | | 2019 | | | [address] | | | | | | [place] | | | | | | [address] | | | | | | | | +--------+ + + + + | 02/06/ | Office | Vascular Surgery | Ricci De León DNP | | | 2019 | Visit | | [address] | | | | | | [place] | | | | | | [address] | | | | | | | | | | | | Magdiel Arteaga MD | | | | | | [address] | | | | | | [place] [facility] | | | | | | [place] [address] | | | | | | [phone] | | | | | | | [...] Note | + + | Rafita Doran - 10/13/2018 10:07 AM PDT This is a non-reportable procedure | | without a radiologist report and isused for image storage only | + + documented in this encounter Visit Diagnoses + + | Diagnosis | + + | Pain Generalized pain | + + documented in this encounter"
--- OUTSIDE RECORDS SUMMARY | ~2019-11-18 | XMS | Encounter Summary ---
Demographics + + + | Address | [address] | | | [place] [address] | + + + | Home Phone | | + + + | Preferred Language | Unknown | + + + | Marital Status | Single | + + + | [employer] Affiliation | 1009 | + + + | Race | White | + + + | Ethnic Group | Not or | + + + Author + + + | Author | [facility] | | | and [place] | + + + | Organization | [facility] | | | [...] Team Providers + +------+ + | Care Child Care Assistant Name | Role | Phone | + [...] + + | 10/07/ | Anesthesia | [facility] | [facility], | | | 2020 | Event | [facility] | DO [address] | | | | | OPER[address] | [address] | | | | | [address] | [place] [address] | | | | | [place], [place] | [phone] | | | | | [address] | | | | | | [phone] | | | +--------+ + + + [...] +----+---+ + + | | 1 | Hamilton | | | | 0 | 43-degrees | | | | 0 | | | | | 0 | | | +----+---+ + + | | 1 | Quick Note | PRBC transfusion Unit [id number] | | | 3 | | | | | 3 | | | | | 2 | | | +----+---+ + + | | 1 | Quick Note | PRB unit [id number] | | | 3 | | | [...] Catalan RN | | | | and AGUUSTUS drain | | | +--------+ + + [...] Amanda Tim RN | | IV | [id number] catheter system; | | | | | [...] Logan | Kathie Llamas RN | | Cecelia | 10/11/19; 09 (not present upon | [...] EVALUATION Jairo Theodore 59 y.o. male 1960 [id number] Procedure(s) THROMBECTOMY / EMBOLECTOMY of fem fem bypass (N/A ) BYPASS GRAFT FEMORAL-POPLITEAL (Bilateral Leg Upper) ANGIOGRAM - EXTREMITY BILATERAL (44035) (Bilateral ) Cooperates? Yes Mental Status Answers [...] Orlando Ambriz DO 10/08/2019 2:39 PM PDT [facility] Ambriz [facility] [...] EVALUATION Jairo Theodore 59 y.o. male 1960 [id number] Procedure(s): THROMBECTOMY / EMBOLECTOMY of fem fem [...] as a tra nsfer from [facility] ED for pseudoaneurysm of the right [...] NOTE Jairo Theodore 59 y.o. male 1960 [id number] THROMBECTOMY / EMBOLECTOMY of fem fem bypass (N/A ) BYPASS GRAFT FEMORAL-POPLITEAL (Bilateral Leg Upper) ANGIOGRAM - EXTREMITY BILATERAL (42891) (Bilateral ) HANDOFF NOTE Handoff Protocol Used: [...] Orlando Ambriz DO 10/08/2019 2:33 PM PDT [facility] Ambriz [facility] at 2019 [...] [place] | | | | | | [address] | | | | | | | | +--------+ + + + + | 02/06/ | Office | Vascular Surgery | Ricci De León DNP | | 2019 | Visit | | [address] | | | | | | [place] | | | | | | [address] | | | | | | | | | | | | Magdiel Arteaga MD | | | | | | [address] | | | | | | [place] [facility] | | | | | | [place] [address] | | | | | | [phone] | | | | | | | [...] | | | | | PRN, Starting Safford 10/08/19 at 1408, | | PM PDT | | | | | Anesthesia Intra-op | | | | | | + +-------+ +------+---+---+ +---+---+ | | | +---+---+ + +-------+ +-------+---+---+ | esmolol (BREVIBLOC) 10 mg/mL | Given | 10/08/19 | 20 mg | | | | injection Intravenous, PRN, | | 20 2:36 | | | | | Starting Safford 8/9/20 at 1436, | | PM PDT [...] | | | | | PRN, Starting Safford 10/08/19 at | | AM PDT | [...]
--- OUTSIDE RECORDS SUMMARY | ~2019-11-18 | XMS | Clinical Summary ---
Demographics + + + | Address | [address] | | | [place] [address] | + + + | Home Phone | | + + + | Preferred Language | Unknown | + + + | Marital Status | Single | + + + | Moravian Affiliation | 1009 | + + + | Race | White | + + + | Ethnic Group | Not or | + + + Author + + + | Author | [facility] | | | and [place] | + + + | Organization | [facility] | | | [...] Team Providers + +------+ + | Care Manager Installation Name | Role | Phone | + +------+ + | Teresita Bob MD | PCP | | + +------+ + Allergies + + + + + + | Active Allergy | Reactions | Severity | Noted | Comments | | | | | Date | | + + + + + + | Protamine | Other (See Comments) | | 10/07/19 | Significant | | | | | 20 | hypotension, SBP in | | | | | | the 40s, responded | | | | | | to ephedrine and | | | | | | phenylephrine. Able | | | | | | to give rest of | | | | | | protamine but | | | | | | extremely slow | | | | | | infusion rate. | + + + + + + Medications + + + +---------+------+------+-------+ | Medication | Sig | Dispensed | Refills | Star | End | Statu | | | | | | t | Date | s | | | | | | Date | | | + + + +---------+------+------+-------+ | calcium carbonate | Chew and swallow 2 | 90 | 0 | 08/1 | | Activ | | (TUMS) 500 mg | tablets every 4 | tablet | | 7/20 | | e | | chewable tablet | hours as needed for | | | 20 | | | | | Indigestion. | | | | | | + + + +---------+------+------+-------+ | clopidogrel | Take 1 tablet by | 30 | 1 | 09/29 | | Activ | | (PLAVIX) 75 mg | mouth Daily. | tablet | | 10/18 | | e | | tablet | | | | 20 | | | + + + +---------+------+------+-------+ +---+ + | | Additional | | | InformationPatient | | | not taking. Reported | | | on 11/08/2019 10:14 | | | AM | +---+ + + + +--------+---+------+------+-------+ | cephalexin | | | 0 | 08/2 | | Activ | | (KEFLEX) 500 mg | | | | 07/18 | | e | | capsule | | | | 20 | | | + + +--------+---+------+------+-------+ | | | | 0 | 08/2 | | Activ | | oxyCODONE-acetaminop | | | | 5/20 | | e | | hen (PERCOCET) 5-325 | | | | 20 | | | | mg per tablet | | | | | | | + + +--------+---+------+------+-------+ | pantoprazole | Take 40 mg by mouth | | 0 | 09/0 | | Activ | | (PROTONIX) 40 mg | Daily. | | | 5/20 | | e | | tablet | | | | 20 | | | + + +--------+---+------+------+-------+ | sucralfate | take 1 tablet by | | 0 | 09/0 | | Activ | | (CARAFATE) 1 g | mouth before meals | | | 5/20 | | e | | tablet | and at bedtime | | | 20 | | | + + +--------+---+------+------+-------+ | acetaminophen | Take 2 tablets by | 120 | 0 | 08 | 10/30 | Expir | | (TYLENOL) 325 mg | mouth every 4 hours | tablet | | 09/17 | 08/18 | ed | | tablet | as needed for Pain | | | 20 | 20 | | | | (or fever >= 38.6 C | | | | | | | | (101.5 F)) for up to | | | | | | | | 30 days. | | | | | | + + +--------+---+------+------+-------+ | aspirin 81 mg | Chew and swallow 1 | 30 | 1 | 09/29 | 10/30 | Expir | | chewable tablet | tablet Daily for 30 | tablet | | / | 09/17 | ed | | | days. | | | 20 | 20 | | + + +--------+---+------+------+-------+ +---+ + | | Additional | | | InformationPatient | | | not taking. Reported | | | on 11/08/2019 10:14 | | | AM | +---+ + + + +--------+---+------+------+-------+ | atorvaSTATin | Take 1 tablet by | 30 | 1 | 09/29 | 10/30 | Expir | | (LIPITOR) 40 mg | mouth nightly for 30 | tablet | | 09/17 | 08/18 | ed | | tablet | days. | | | 20 | 20 | | + + +--------+---+------+------+-------+ +---+ + | | Additional | | | InformationPatient | | | not taking. Reported | | | on 11/08/2019 10:14 | | | AM | +---+ + Active Problems + + + | Problem | Noted Date | + + + | Thrombosis of femoral-femoral bypass graft | 10/09/2019 | + + + | Pseudoaneurysm (HCC) right aorto femoral bypass | 10/03/2019 | + + + | Alcohol abuse | 10/03/2019 | + + + | Tobacco abuse | 10/03/2019 | + + + | Anemia | 11/17/2016 | + + + | Cirrhosis of liver | 11/17/2016 | + + + | COPD (chronic obstructive pulmonary disease) | 11/17/2016 | + + + | Coronary atherosclerosis | 11/17/2016 | + + + | Hypercoagulopathy | 11/17/2016 | + + + | Pelvic abscess in male | 11/17/2016 | + + + | Sepsis | 11/17/2016 | + + + | Thrombocytopenia | 11/17/2016 | + + + Resolved Problems + + + + | Problem | Noted | Resolved | | | Date | Date | + + + + | Acute hyponatremia | 10/10/19 | | | | 20 | 0 | + + + + | Post-operative pain | 10/09/19 | | | | 20 | 0 | + + + + | Postprocedural hypotension | 10/09/19 | | | | 20 | 0 | + + + + | Leucocytosis | 10/09/19 | | | | 20 | 0 | + + + + | Cellulitis of right foot | 10/04/19 | | | | 20 | 0 | + + + + | Peripheral arterial disease | 10/03/19 | | | | 20 | 0 | + + + + + + | Overview: Added automatically from request for surgery | | [id number] | + + Encounters +--------+ + + + + | Date | Type | Specialty | Care Team | Description | +--------+ + + + + | 11/07/ | Office | Vascular Surgery | Ricci De León DNP | Incisional hernia, | | 2019 | Visit | | | without obstruction | | | | | | or gangrene (Primary | | | | | | Dx); PAD | | | | | | (peripheral artery | | | | | | disease) ([facility]); S/P | | | | | | aortobifemoral | | | | | | bypass surgery; S/P | | | | | | femoral-femoral | | | | | | bypass surgery; S/P | | | | | | vascular bypass; | | | | | | Current tobacco use | +--------+ + + + + | 11/07/ | Hospital | Radiology | Ricci De León DNP | PAD (peripheral | | 2019 | Encounter | | | artery disease) | | | | | | ([facility]) | +--------+ + + + + | 11/06/ | Telephone | Vascular Surgery | Magdiel Arteaga MD | Consult | | 2019 | | | | ([facility]portation / [facility] | | | | | | Referral ) | +--------+ + + + + | 10/24/ | Office | Vascular Surgery | Ricci De León DNP | PAD (peripheral | | 2020 | Visit | | | artery disease) | | | | | | (HCC) (Primary Dx); | | | | | | S/P aortobifemoral | | | | | | [...] | | | | tobacco use | +--------+ + + + + | 10/16/ | Telephone | Vascular Surgery | Rachel Juarez, | Follow-up | | 2019 | | | RN | | +--------+ + + + + | 10/07/ | Anesthesia | | Katina | | | 2019 | Event | | DO Orlando | | +--------+ + + + + | 10/07/ | Surgery | | Magdiel Arteaga MD | THROMBECTOMY / | | 2019 | | | | EMBOLECTOMY of fem | | | | | | fem bypass | +--------+ + + + + | 10/06/ | Anesthesia | | Rudolph Lowery | | | 2019 | Event | | MD Ketan | | +--------+ + + + + | 10/06/ | Surgery | | Magdiel Arteaga MD | REPAIR | | 2019 | | | | PSEUDOANEURYSM- | | | | | | FEMORAL | +--------+ + + + + | 10/06/ | Anesthesia | | Rudolph Lowery | | | 2020 | Event | | MD Ketan Hossein | | | | | | Taisha Perkins CRNA | | +--------+ + + + + | 10/02/ | Hospital | Internal Medicine | Jairo Renner MD | Pseudoaneurysm ([facility]) | | 2019 - | Encounter | | Latoya Oh DO | right aorto femoral | | | | | Chyna Thomas MD | bypass (Primary | | 10/15/ | | | Tera Váqzuez | Dx); Peripheral | | 2020 | | | Jose oLgan MD | arterial disease | | | | | Mundo Pack | ([facility]); | | | | | Poli Powell MD | Pseudoaneurysm | | | | | | ([facility]); Peripheral | | | | | | arterial disease | | | | | | ([facility]); Cellulitis of | | | | | | right foot; | | | | | | 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 ([facility]); | | | | | | Post-operative pain | +--------+ + + + + from Last 3 Months Family History + + +------+ + | Medical History | Relation | Name | Comments | + + +------+ + | Stroke | Father | | | + + +------+ + | Aneurysm | Mother | | | + + +------+ + + +------+ + + | Relation | Name | Status | Comments | + +------+ + + | Father | | | | + +------+ + + | Mother | | | | + +------+ + + Social History + +-------+ +--------+ [...] on file | | + + + Last Filed Vital Signs + + + [...] + | Respiratory Rate | 18 | 10/16/2019 7:06 AM | | | | | PDT [...] | | + + + + + Plan of Treatment +--------+ + + + + | Date | Type | Specialty | Care Team | Description | +--------+ + + + + | 02/06/ | Appointment | Radiology | Ricci De León DNP | | | 2019 | | | [address] | | | | | | [place] | | | | | | [address] | | | | | | | | +--------+ + + + + | 02/06/ | Office | Vascular Surgery | Ricci De León DNP | | | 2019 | Visit | | [address] | | | | | | [place] | | | | | | [address] | | | | | | | | | | | | Magdiel Arteaga MD | | | | | | [address] | | | | | | [place] [facility] | | | | | | [place] [address] | | | | | | [phone] | | | | | | | | +--------+ + + + + + + + + + | Health Maintenance | Due Date | Last | Comments | | | | Done | | + + + + + | Hepatitis C | | | | | Screening | 8 | | | + + + + + | Vaccine: | | | | | Pneumococcal 19-64 | 4 | | | | (1 of 1 - PPSV23) | | | | + + + + + | Colorectal Cancer | | | | | Screening | 8 | | | | (Colonoscopy) | | | | + + + + + | Vaccine: Zoster (1 | | | | | of 2) | 8 | | | + + + + + | Adult Annual | | | | | Wellness Visit | 0 | | | + + + + + | Vaccine: Influenza | | | | | (#1) | 0 | | | + + + + + | Vaccine: | | 10/23/19 | | | Dtap/Tdap/Td (2 - | 0 | 20 | | | Td) | | | | + + + + + Implants + +-------+------+ +--------+--------+--------+ | Implanted | Type | Area | Manufacture | Device | Shelf | Model | | | | | r | | Expira | / | | | | | | Identi | tion | Serial | | | | | | fier | Date | / Lot | + +-------+------+ +--------+--------+--------+ | Graft [place] Propaten [id number] | Graft | | [facility] - | | | [id number] | | - [id number]: | | | [facility] | | | 50A | | Qty: 1 on 10/07/2019 by | | | | | | /[id number] | | Magdiel Arteaga MD at [facility] | | | | | | [id number] | | [facility] | | | | | | 5 /NA | | CENTER | | | | | | | + +-------+------+ +--------+--------+--------+ | Graft Hemgrd Knit [id number] - | Graft | | MAQUET | | | [id number] | | [id number]: Qty: 1 | | | CARDIOVASCU | | | 8-40 | | on 10/07/2019 by Magdiel Arteaga | | | LAR US | | | /[id number] | | MD Norma at [facility] | | | SALES - | | | [address] | | [facility] | | | MAQU | | | /[id number] | + +-------+------+ +--------+--------+--------+ | Graft Vas Propaten 6-80mm - | Graft | | [facility] - | | 02/22/ | [id number] | | [id number]: Qty: | | | [facility] | | 3 | 80A | | 1 on 10/08/2019 by Chandler, | | | | | | /[id number] | | Magdiel Green MD at [facility] | | | | | | [id number] | | [facility] | | | | | | 1 /NA | + +-------+------+ +--------+--------+--------+ | Graft Vas Propaten 6-80mm - | Graft | | [facility] - | | 06/27/ | [id number] | | [id number]: Qty: | | | [facility] | | 2023 | 80A | | 1 on 10/08/2019 by Chandler, | | | | | | /[id number] | | Magdiel Green MD at [facility] | | | | | | [id number] | | [facility] | | | | | | 2 /NA | + +-------+------+ +--------+--------+--------+ Procedures + +--------+ + + + | Procedure Name | Priori | Date/Time | Associated Diagnosis | Comments | | | ty | | | | + +--------+ + + + | VAS LOWER EXTREMITY | Routin | 11/08/2019 | PAD (peripheral | Results for this | | ARTERIAL BILAT W DIANNE | e | 10:48 AM | artery disease) | procedure are in the | | MULTI LEVEL | | PDT | ([facility]) | results section. | + +--------+ + [...] EXTREMITY BILATERAL | | 9:22 AM | ([facility]) Peripheral | | | (63598) | | PDT | arterial disease | | | | | | ([facility]) | | + +--------+ + + + | BYPASS GRAFT | | 10/08/2019 | Pseudoaneurysm | | | FEMORAL-POPLITEAL | | 9:22 AM | ([facility]) Peripheral | | | | | PDT | arterial disease | | | | | | (HCC) | | + +--------+ + + + | THROMBECTOMY / | | 10/08/2019 | Pseudoaneurysm | | | EMBOLECTOMY | | 9:22 AM | (HCC) Peripheral | | | | | PDT [...] | POC MIRNA, CG8, | Routin | 10/07/2019 | | [...] + +--------+ + + + | POC RADUT CG8, | Routin | 10/07/2019 | | [...] + +--------+ + + + | ANE PERIPHERAL IV | Routin | 10/07/2019 | | Results for this | | LINE NOTE | e | 8:39 AM | | procedure are in the | | | | PDT | | results section. | + +--------+ + + + | ANE PERIPHERAL IV | Routin | 10/07/2019 | | Results for this | | LINE NOTE | e | 8:35 AM | | procedure are in the | | | | PDT | | results section. | + +--------+ + + + | ANE AIRWAY NOTE | Routin | 10/07/2019 | | Results for this | | | e | 8:34 AM | | procedure are in the | | | | PDT | | results section. | + +--------+ + + + | ANE ARTERIAL LINE | Routin | 10/07/2019 | | Results for this | | NOTE | e | 8:31 AM | | procedure are in the | | | | PDT | | results section. | + +--------+ + + + | BYPASS GRAFT | | 10/07/2019 | Pseudoaneurysm | | | FEMORAL-FEMORAL | | 7:07 AM | ([facility]) | | | | | PDT | | | + +--------+ + + + +---+--------+ | | Case | | | Notes | | | DrWalter | | | Chandler | | | [...] results section. | + +--------+ +---+ + from Last 3 Months Results VAS Lwr Ext Art Bilat w [...] cm/sec Right | | | lower extremity: [employer] prox: 129 cm/sec [employer] dist: 120 cm/sec | | | Right [...] Procedure Note | + + | Espinoza, [id number] - 11/08/2019 4:04 PM PDT | | [...] | | Right lower extremity: | | [employer] prox: 129 cm/sec | | [employer] dist: 120 cm/sec | | | | [...] | | | + +---------+ + + CBC no Differential (10/16/2019 5:11 AM PDT)Only the most recent of 6 results within the t martha period is included. + + + + + + | [...] LABORATORY | | | | performed at [facility], [address] | | | | | [address] [facility], | | | | | | [place] [address] | | | | + + + + + + + + | Specimen | + + | Blood | + + + + + + + | Performing | Address | City/State/Zipcode | Phone Number | | Organization | | | | + + + + + | [facility] | [address] | [place] [address] | [phone] | + + + + + Potassium (10/16/2019 5:11 AM PDT)Only the most recent of 6 results within the time period is included. + + + + + + | Component | Value | Ref Range | Performed | Pathologist | | | | | At | Signature | + + + + + + | K | 3.0 (L)Comment: Testing | 3.5 - 4.9 | [facility] | | | | performed at [facility];[address] | mmol/L | LABORATORY | | | | [address];[place] | | | | | | [address] | | | | + + + + + + + + | Specimen | + + | Blood | + + + + + + + | Performing | Address | City/State/Zipcode | Phone Number | | Organization | | | | + + + + + | [facility] | [address] | [place] [address] | [phone] | + + + + + Magnesium (10/16/2019 5:11 AM PDT)Only the most recent of 13 results within the time hugo jeffries is included. + + + + + + | Component | Value | Ref Range | Performed | Pathologist | | | | | At | Signature | + + + + + + | Magnesium | 1.7Comment: Testing | 1.7 - 2.4 mg/dL | [facility] | | | | performed at [facility];[address] | | LABORATORY | | | | [address];[place] | | | | | | [address] | | | | + + + + + + + + | Specimen | + + | Blood | + + + + + + + | Performing | Address | City/State/Zipcode | Phone Number | | Organization | | | | + + + + + | [facility] | [address] | [place] [address] | [phone] | + + + + + Basic Metabolic Panel (10/15/2019 5:13 AM PDT)Only the most recent of 9 results within the time period is included. + + + + + + | [...] | | | | | | MDRD IDUT traceable | | | | | | equation.Testing | | | | | | performed at [facility], [address] | | | | | | [facility], | | | | | | [place] [address] | | | | + + + + + + + + | Specimen | + + | Blood | + + + + + + + | Performing | Address | City/State/Zipcode | Phone Number | | Organization | | | | + + + + + | [facility] | [address] | [place] [address] | [phone] | + + + + + Phosphorus (10/14/2019 3:28 PM PDT)Only the most recent of 3 results within the time perio d is included. + + + + + + | Component | Value | Ref Range | Performed | Pathologist | | | | | At | Signature | + + + + + + | Phosphorus | 1.3 (L)Comment: Testing | 2.3 - 4.8 mg/dL | [facility] | | | | performed at [facility];[address] | | LABORATORY | | | | [facility];[place], [place] | | | | | | [address] | | | | + + + + + + + + | Specimen | + + | Blood | + + + + + + + | Performing | Address | City/State/Zipcode | Phone Number | | Organization | | | | + + + + + | [facility] | [address] | [place] [address] | [phone] | + + + + + Hemoglobin [...] Testing | 39.0 - 50.0 % | [facility] | | | | performed at [facility];[address] | | LABORATORY | | | | [address];[place], [place] | | | | | | [address] | | | | + + + + + + + + | Specimen | + + | Blood | + + + + + + + | Performing | Address | City/State/Zipcode | Phone Number | | Organization | | | | + + + + + | [facility] | [address] | [place] [address] | [phone] | + + + + + Clostridium [...] at | | | | | | [facility];[address] | | | | | | [address];[place] [address] | | | | + + + + + + + + | Specimen | + + | Stool - Stool | | specimen (specimen) | + + + + + + + | Performing | Address | City/State/Zipcode | Phone Number | | Organization | | | | + + + + + | [facility] | [address] | [place] [address] | [phone] | + + + + + Red Blood Cells (PRBC) - Transfuse (10/12/2019 3:00 PM PDT)Only the most recent of 2 resul ts within the time period is included.Type and Screen (10/12/2019 7:52 AM PDT)Only the most recent of 3 results within the time period is included. + + + + + + | [...] + + + | BB BAND | [id number] | | [facility] | | | | | | LABORATORY | | + + + + + + | UNIT # | [id number] | | [facility] | | | | [...] | | | RESULT | performed at [facility];[address] | | LABORATORY | | | | [address];[place] | | | | | | [address] | | | | + + + + + + | UNIT # | [id number] | | [facility] | | | | [...] + | [facility] | [address] | [place] [address] | [phone] | + + + + + Red Blood Cells (PRBC) - Crossmatch (10/12/2019 7:41 AM PDT)Only the most recent of 3 resu lts within the time period is included. + + + + + + | [...] | ORDER RECEIVED IN BLOOD | | [facility] | | | COMMENT | BANK. | | LABORATORY | | + + + + + + | BLOOD BANK | Testing performed at | | [facility] | | | COMMENT | [facility];[address] [facility] | | LABORATORY | | | | [address];[place] [address] | | | | + + + + + + + + | Specimen | + + | | + + + + + + + | Performing | Address | City/State/Zipcode | Phone Number | | Organization | | | | + + + + + | [facility] | [address] | [place] [address] | [phone] | + + + + + Comprehensive Metabolic Panel (10/12/2019 4:08 AM PDT)Only the most recent of 6 results wi thin the time period is included. + + + + + + | [...] | | | | | performed at [facility];[address] | | | | | | [address];[place], [place] | | | | | | [address] | | | | + + + + + + + + | Specimen | + + | Blood | + + + + + + + | Performing | Address | City/State/Zipcode | Phone Number | | Organization | | | | + + + + + | [facility] | [address] [facility] | [place] [address] | [phone] | + + + + + Urinalysis [...] - 1.030 | [facility] | | | [place], | | | LABORATORY | | | [...] [place] | | | | | | [address] | | | | + + + [...] | + + + + + | [facility] | [address] | [place] [address] | [phone] | + + + + + Osmolality, Urine (10/11/2019 11:16 AM PDT) + + + + + + | Component | Value | Ref Range | Performed | Pathologist | | | | | At | Signature | + + + + + + | OSMO URINE | 239Comment: Testing | 50 - 1,200 | [facility] | | | | performed at [facility], [address] | mOsm/kg | LABORATORY | | | | [address], | | | | | | [place] [address] | | | | + + + [...] + | [facility] | [address] | [place] [address] | [phone] | + + + + + Culture, Blood (10/11/2019 10:15 AM PDT)Only the most recent of 2 results within the time alexa abdi is included. + + + + + + | [...] [facility] | | | Requests | [facility];[address] | | LABORATORY | | | | [address];[place] [address] | | | | + + + + + + | RESULT | NO GROWTH 6 DAYS | | [facility] | | | | | | LABORATORY | | + + + + + + | RESULT | Testing performed at | | [facility] | | | | [facility], [address] [facility] | | LABORATORY | | | | [address], [place], [place] | | | | | | [address]Mvzaqnh: Testing | | | | | | performed at [facility], [address] | | | | | | [address], [place], [place] | | | | | | [address] | | | | + + + + + + + + | Specimen | + + | Blood - Swab of line | | insertion site | | (specimen) | + + + + + + + | Performing | Address | City/State/Zipcode | Phone Number | | Organization | | | | + + + + + | [facility] | [address] | [place] [address] | [phone] | + + + + + XR [...] Procedure Note | + + | Espinoza, [id number] - 10/11/2019 10:42 AM PDT | | [...] | | | + +---------+ + + Sodium (10/11/2019 9:30 AM PDT) + + + + + + | Component | Value | Ref Range | Performed | Pathologist | | | | | At | Signature | + + + + + + | Na | 127 (L)Comment: Testing | 135 - 145 | [facility] | | | | performed at [facility];[address] | mmol/L | LABORATORY | | | | [address];[place] | | | | | | [address] | | | | + + + + + + + + | Specimen | + + | Blood | + + + + + + + | Performing | Address | City/State/Zipcode | Phone Number | | Organization | | | | + + + + + | [facility] | [address] | [place] [address] | [phone] | + + + + + Osmolality, Serum (10/11/2019 9:30 AM PDT) + + + + + + | Component | Value | Ref Range | Performed | Pathologist | | | | | At | Signature | + + + + + + | Osmolality, | 262 (L)Comment: Testing | 280 - 301 | [facility] | | | Serum | performed at [facility], [address] | mOsm/kg | LABORATORY | | | | [address], | | | | | | [place] [address] | | | | + + + + + + + + | Specimen | + + | Blood | + + + + + + + | Performing | Address | City/State/Zipcode | Phone Number | | Organization | | | | + + + + + | [facility] | [address] | [place] [address] | [phone] | + + + + + CBC with Differential (10/10/2019 4:16 AM PDT)Only the most recent of 9 results within the time period is included. + + + + + + | [...] 0.05Comment: Testing | 0.00 - 0.10 | [facility] | | | Absolute | performed at [facility];[address] | [address] | LABORATORY | | | | [address];[place], [place] | | | | | | [address] | | | | + + + + + + + + | Specimen | + + | Blood | + + + + + + + | Performing | Address | City/State/Zipcode | Phone Number | | Organization | | | | + + + + + | [facility] | [address] | [place] [address] | [phone] | + + + + + Lactic Acid (10/09/2019 5:12 AM PDT) + + + + + + | Component | Value | Ref Range | Performed | Pathologist | | | | | At | Signature | + + + + + + | Lactate, | 1.8Comment: Testing | 0.4 - 2.0 | [facility] | | | Serum | performed at [facility];[address] | mmol/L | LABORATORY | | | | [address];[place] | | | | | | [address] | | | | + + + + + + + + | Specimen | + + | Blood | + + + + + + + | Performing | Address | City/State/Zipcode | Phone Number | | Organization | | | | + + + + + | [facility] | [address] | [place] [address] | [phone] | + + + + + Procalcitonin (10/09/2019 5:10 AM PDT) + + + + + + | Component | Value | Ref Range | Performed | Pathologist | | | | | At | Signature | + + + + + + | PROCALCITON | 0.65 (H)Comment: | <0.5 ng/mL | [facility] | | | IN | INTERPRETIVE | [...] | | | | | | at [facility];[address] [place] [address] | | | | | | [facility];[place] [address] | | | | + + + + + + + + | Specimen | + + | Blood | + + + + + + + | Performing | Address | City/State/Zipcode | Phone Number | | Organization | | | | + + + + + | [facility] | [address] | [place] [address] | [phone] | + + + + + POC [...] | | | POC | performed at [facility];[address] | | LABORATORY | | | | [address];[place], [place] | | | | | | [address] | | | | + + + + + + + + | Specimen | + + | | + + + + + + + | Performing | Address | City/State/Zipcode | Phone Number | | Organization | | | | + + + + + | [facility] | [address] | [place] [address] | [phone] | + + + + + PTT (10/08/2019 5:23 PM PDT)Only the most recent of 2 results within the time period is in cluded. + + + + + + | Component | Value | Ref Range | Performed | Pathologist | | | | | At | Signature | + + + + + + | PTT | 32Comment: Testing | 23 - 32 seconds | [facility] | | | | performed at [facility];[address] | | LABORATORY | | | | [address];[place] | | | | | | [address] | | | | + + + + + + + + | Specimen | + + | Blood | + + + + + + + | Performing | Address | City/State/Zipcode | Phone Number | | Organization | | | | + + + + + | [facility] | [address] | [place] [address] | [phone] | + + + + + POC ISTAT, CG8, Arterial (10/08/2019 2:04 PM PDT)Only the most recent of 6 results within the time period is included. + + + + + + | Component | Value | Ref Range | Performed | Pathologist | | | | | At | Signature | + + + + + + | pH, | 7.291 (L) | 7.350 - 7.450 | [facility] | | | Arterial, | | | [...] | | | POC | performed at [facility];[address] | g/dL | LABORATORY | | | | [address];[place] | | | | | | [address] | | | | + + + + + + + + | Specimen | + + | | + + + + + + + | Performing | Address | City/State/Zipcode | Phone Number | | Organization | | | | + + + + + | [facility] | [address] | [place] [address] | [phone] | + + + + + Red Blood Cells (PRBC-INTRAOP)-Transfuse (10/08/2019 1:55 PM PDT)Only the most recent of 4 results within the time period is included.Airway (10/08/2019 10:03 AM PDT) + + + [...] medication documentation. | | + + + Protime INR (10/07/2019 5:21 PM PDT)Only the most recent of 2 results within the time maddie od is included. + + + + + + | Component | Value | Ref Range | Performed | Pathologist | | | | | At | Signature | + + + + + + | INR | 1.3Comment: REFERENCE | | [facility] | | | | RANGE:0.9 - 1.2 [...] | | | | | performed at [facility];[address] | | | | | | [facility];[place], [place] | | | | | | [address] | | | | + + + + + + + + | Specimen | + + | Blood - Artery, | | Radial, Right | + + + + + + + | Performing | Address | City/State/Zipcode | Phone Number | | Organization | | | | + + + + + | [facility] | [address] | [place] [address] | [phone] | + + + + + Surgical [...] | including foreign body giant cell reaction. AMB:[facility]:C2NR MICROSCOPIC | | | EXAMINATION:Histologic sections of [...] | | | ofirregularly-shaped, somewhat tubular, synthetic thomas-white, mesh-like | | | material encased in a scant amount of attached red-white | | | fibromembranous tissue. Typing Teacher sections are submitted in | | | [...] | LABORATORY:The technical component was performed by [facility] | | | [email or web address], [address] [place] [address] (Director Packaging: | | | Asia Rodriguez MD; CLIA# [id number]).Professional interpretation was | | | performed by [facility], [address] | | | [place] [address] (Director Packaging: Solitario | | | Jacyk Recio; CLIA#: [id number]). Diagnostician: Asia Rodriguez | | | MDPathologistElectronically Signed 10/10/2019 | | | | | |PERFORMING LABORATORY: | | |The technical component was performed by [facility], [address] [place] [address] (Director Packaging: Asia Rodriguez MD; CLIA# [id number]). | | |[facility], [address] [place] [address] (Director Packaging: Solitario Recio M.D.; CLIA#: [id number]). | | | | | |Diagnostician: Asia [...] | | | + +---------+ + + PIV (10/07/2019 8:39 AM PDT) + + + | Narrative | Performed At | + + + | Rudolph Lowery MD 10/07/2019 8:40 AM Intravenous | | | Line Placement 10/07/2019 7:56 AM Indication: routine Preparation: | | | alcohol patient was: under GA Side: right Orientation: proximal | | | and medial Vein location: forearm Size: 18 g Localization | | | technique: landmark Securement: transparent dressing Placed by: | | | Rudolph Lowery MD Authorizing provider: Rudolph Lowery | | | Please see intraoperative grid for any additional medication | | | documentation. | | + + + PIV (10/07/2019 8:35 AM PDT) + + + | Narrative | Performed At | + + + | Rudolph Lowery MD 10/07/2019 8:39 AM Intravenous | | | Line Placement 10/07/2019 7:50 AM Indication: routine Preparation: | | | alcohol patient was: under GA Side: left Orientation: posterior | | | (dorsal) Vein location: wrist Size: 18 g Localization technique: | | | landmark Securement: transparent dressing and tape Placed by: uRdolph | | | Ketan Lowery MD Authorizing provider: Rudolph Lowery MD | | | Please see intraoperative grid for any additional medication | | | documentation. | | + + + Airway (10/07/2019 8:34 AM PDT) + + + | Narrative | Performed At | + + + | Rudolph Lowery MD 10/07/2019 8:35 AM Anesthesia Airway | | | Placement 10/07/2019 7:30 AM Preprocedure check: patient | | | identified, suction, airway equipment checked, oxygen, airway | | | assessed and patient reassessment prior to induction Mask | | | ventilation: easy Successful technique: Mac Laryngoscope blade | | | size: 3 Airway grade: 2a (Partial view of glottis) Other | | | equipment: stylette Attempts: 1 Airway type: endotracheal Size: 7.5 | | | Cuffed: cuffed Route, reference point: right side of mouth (secured | | | to the right side using a mask ties given the patients large bushy | | | che. ) Tube depth: 20 cm Tube secured with: adhesive tape Trauma: | | | none Tube placement verification: bilateral chest rise and carbon | | | dioxide detection Performing provider: Rudolph Lowery MD | | | Authorizing provider: Rudolph Lowery MD Comments: No issues | | | with intubation. ET tube placed atraumatically with | | | preservation of oral structures in their pre-operative state. | | | Please see intraoperative grid for any additional medication | | | documentation. | | + + + Arlette (10/07/2019 8:31 AM PDT) + + + | Narrative | Performed At | + + + | Rudolph Lowery MD 10/07/2019 8:34 AM Arterial Line | | | Placement 10/07/2019 7:53 AM Indication: continuous blood pressure | | | monitoring and acid-base/laboratory analysis Prep solution: alcohol | | | Patient was: under GA Laterality: right Artery:radial Size: 20 g | | | Localization technique: ultrasound Securement: transparent dressing, | | | arm board and tape (mastisol) Performed by: Rudolph Lowery MD | | | Authorizing provider: Rudolph Lowery MD Comments: Procedure | | | performed by Dr. Arteaga, after [address] Lowery on | | | the left arm. 1st attempt got flash and it threaded, but when the | | | catheter was hubbed there was no return of blood or waveform, 2nd | | | attempt was more proximal, again threaded catheter but no waveform or | | | pulsatile flow back. Both attempts done under ultrasound. At | | | this point, Dr. Lowery asked Dr. Arteaga to try. He opted for | | | placement in the other arm, single attempt with ultrasound. No | | | complications. Patient consented for a-line placement prior to | | | anesthesia. After induction of GA, patient arm was secured in | | | preparation for procedure. Artery was identified with | | | ultrasound.. Area was prepped with ETOH wipe. Under direct | | | visualization, 20 Gauge angiocath/needle was inserted into artery | | | with confirmation of arterial blood with subsequent advancement of | | | wire into artery. Using seldinger technique 20 gauge angiocath was | | | advanced over needle and wire into artery. Proper placement was | | | confirmed with positive blood return through angiocath and waveform | | | tracing on the monitor. Catheter was secured in usual fashion. | | | No issues with procedure. Please see intraoperative grid | | | for any additional medication documentation. | | + + + ECHO Complete (10/04/2019 3:31 [...] Procedure Note | + + | Espinoza, [id number] - 10/04/2019 12:10 PM PDT | | [...] + + | Performing | Address | City/State/[facility] | Phone Number | | Organization | [...] [facility] | | | | performed at [facility];[address] | | LABORATORY | | | | [address];[place], [place] | | | | | | [address] | | | | + + + + + + + + | Specimen | + + | Tissue - Both | | anterior nares (body | | structure) | + + + + + + + | Performing | Address | City/State/Zipcode | Phone Number | | Organization | | | | + + + + + | [facility] | [address] | [place] [address] | [phone] | + + + + + Lipid [...] | | | Calculated | performed at [facility], [address] | | LABORATORY | | | | [address], | | | | | | [place] [address] | | | | + + + + + + + + | Specimen | + + | Blood | + + + + + + + | Performing | Address | City/State/Zipcode | Phone Number | | Organization | | | | + + + + + | [facility] | [address] | [place] [address] | [phone] | + + + + + Uric Acid (10/04/2019 4:26 AM PDT) + + + + + + | Component | Value | Ref Range | Performed | Pathologist | | | | | At | Signature | + + + + + + | Uric Acid | 3.2Comment: Testing | 3.2 - 8.6 mg/dL | [facility] | | | | performed at [facility], [address] | | LABORATORY | | | | [address], | | | | | | [place] [address] | | | | + + + + + + + + | Specimen | + + | Blood | + + + + + + + | Performing | Address | City/State/Zipcode | Phone Number | | Organization | | | | + + + + + | [facility] | [address] | [place] [address] | [phone] | + + + + + Coronavirus (COVID-19) NAAT (10/04/2019 12:49 AM PDT) + + + + + + | Component | Value | Ref Range | Performed | Pathologist | | | | | At | Signature | + + + + + + | SARS-CoV-2, | NEGATIVEComment: This | NEG | [facility] | | | NAAT | test was [...] | | | | | performed at [facility] | | | | | | [facility];[place], [place] | | | | | | [address] | | | | + + + + + + + + | Specimen | + + | Tissue - Entire | | nasopharynx (body | | structure) | + + + + + + + | Performing | Address | City/State/Zipcode | Phone Number | | Organization | | | | + + + + + | [facility] | [address] | [place] [address] | [phone] | + + + + + ECG [...] | | | | ELLA HART MD ([id number]) | | | | | | on [...] | | | + +---------+ + + from Last 3 Months Insurance + +--------+ +--------+ +---------+--------+ | Payer | Benefi | Subscriber | Effect | Phone | Address | Type | | | t Plan | ID | lance | | | | | | / | | Dates | | | | | | Group | | | | | | + +--------+ +--------+ +---------+--------+ | [employer] [place] | [id number] | 10/03/19 | | | Indemn | | | COMMUN | | 20-Pre | | | ity | | | ITY | | sent | | | | | | CARE | | | | | | + +--------+ +--------+ +---------+--------+ | [employer] | [place] | [id number] | | | | Indemn | | | NS | | 009-Pr | | | ity | | | ADMIN | | esent | | | | | | [place] | | | | | | | | [place] | | | | | | + +--------+ +--------+ +---------+--------+ | MEDICARE | MEDICA | [id number] | 04/30/19 | [phone] | | Medica | | | RE | | 08-Pre | 5 | | re | | | PART A | | sent | | | | | | AND B | | | | | | + +--------+ +--------+ +---------+--------+ | [place] | MEDICA | [id number] | 05/31/19 | [phone] | | Medica | | | ID | | 18-Pre | 2 | | id | | | [place] | | sent | | | | + +--------+ +--------+ +---------+--------+ + +--------+ +--------+ + + | Guarantor Name | Accoun | Relation to | Date | Phone | Billing Address | | | t Type | Patient | of | | | | | | | | | | + +--------+ +--------+ + + | Jairo Theodore | Person | Self [birth year] [address] | | | al/Fam | | [address] | [phone] | [address] [place], | | | [place] | | | [address] (Home) | [place] [address] | + +--------+ +--------+ + + | Jairo Theodore | Person | Self [birth year] [address] | | | al/Fam | | 1960 | [phone] | [address] [place], | | | [place] | | | [address] (Home) | [place] [address] | + +--------+ +--------+ + + Advance Directives + + + + + | Type | Date Recorded | Patient | Explanation | | | | Typing Teacher | | + + + + + | Power of | | | | | Acreage Reporter | | | | + + + + + | Advance | 10/10/2019 7:45 | | | | Directive | PM | | | + + + + + + + + + + | Code Status | Date | Date | Comments | | | Activated | Inactivated | | + + + + + | Full Code | 10/07/2019 | 10/07/2019 | | | | 3:45 PM | 6:15 PM | | + + + + + + + + +---+ | | | | | + + + +---+ | Full Code | 10/03/2019 | 10/06/2019 | | | | 10:36 PM | 3:40 PM | | + + + +---+
--- OUTSIDE RECORDS SUMMARY | ~2019-11-18 | XMS | Clinical Summary ---
Demographics + + + | Address | [address] | | | [place] [address] | + + + | Home Phone | | + + + | Preferred Language | Unknown | + + + | Marital Status | Single | + + + | Temple Affiliation | 1009 | + + + | Race | White | + + + | Ethnic Group | Not or | + + + Author + + + | Author | [facility] | | | and [place] | + + + | Organization | [facility] | | | [...] Team Providers + +------+ + | Care Primary Health Organisation Manager Name | Role | Phone | + [...] automatically from request for surgery | | [id number] | + + Encounters +--------+ + + [...] | | | | | | disease) ([facility]); S/P | | | | | | [...] disease) | | | | | | (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); | | | | | Poli Powell MD | Pseudoaneurysm | | | | | | ([facility]); Peripheral | | | | | | arterial disease | | | | | | (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); | | | | | | Post-operative [...] [place] | | | | | | [address] | | | | | | | | +--------+ + + + + | 02/06/ | Office | Vascular Surgery | Ricci De León DNP | | | 2019 | Visit | | [address] | | | | | | [place] | | | | | | [address] | | | | | | | | | | | | Magdiel Arteaga MD | | | | | | [address] | | | | | | [facility] | | | | | | [place] [address] | | | | | | [phone] | | | | | | | [...] Lot | + +-------+------+ +--------+--------+--------+ | Graft [place] Propaten [id number] | Graft | | [facility] - | | | [id number] | | - [id number]: | | | [facility] | | | 50A | | Qty: 1 on 10/07/2019 by | | | | | | /[id number] | | Magdiel Arteaga MD at [facility] | | | | | | [id number] | | [facility] | | | | | | 5 /NA | | CENTER | | | | | | | + +-------+------+ +--------+--------+--------+ | Graft Hemgrd Knit [id number] - | Graft | | MAQUET | | | [id number] | | [id number]: Qty: 1 | | | CARDIOVASCU | | | 8-40 | | on 10/07/2019 by Magdiel Arteaga | | | LAR US | | | /[id number] | | MD Norma at [facility] | | | SALES - | | | [address] | | [facility] | | | MAQU | | | /[id number] | + +-------+------+ +--------+--------+--------+ | Graft Vas Propaten 6-80mm - | Graft | | [facility] - | | 02/22/ | [id number] | | [id number]: Qty: | | | [facility] | | 3 | 80A | | 1 on 10/08/2019 by Chandler, | | | | | | /[id number] | | Magdiel Green MD at [facility] | | | | | | [id number] | | [facility] | | | | | | 1 /NA | + +-------+------+ +--------+--------+--------+ | Graft Vas Propaten 6-80mm - | Graft | | [facility] - | | 06/27/ | [id number] | | [id number]: Qty: | | | [facility] | | 2023 | 80A | | 1 on 10/08/2019 by Chandler, | | | | | | /[id number] | | Magdiel Green MD at [facility] | | | | | | [id number] | | [facility] | | | | | | 2 [...] | MULTI LEVEL | | PDT | ([facility]) | results section. | + +--------+ + [...] EXTREMITY BILATERAL | | 9:22 AM | ([facility]) Peripheral | | | (28909) | | PDT | arterial disease | | | | | | ([facility]) | | + +--------+ + + + | BYPASS GRAFT | | 10/08/2019 | Pseudoaneurysm | | | FEMORAL-POPLITEAL | | 9:22 AM | ([facility]) Peripheral | | | | | [...] | FEMORAL-FEMORAL | | 7:07 AM | ([facility]) | | | | | PDT [...] cm/sec Right | | | lower extremity: MECHANICAL TEST TECHNICIAN prox: 129 cm/sec MECHANICAL TEST TECHNICIAN dist: 120 cm/sec | | | Right [...] Procedure Note | + + | Espinoza, [id number] - 11/08/2019 4:04 PM PDT | | [...] | | Right lower extremity: | | MECHANICAL TEST TECHNICIAN prox: 129 cm/sec | | MECHANICAL TEST TECHNICIAN dist: 120 cm/sec | | | | [...] LABORATORY | | | | performed at [facility], [address] | | | | | [address] [facility], | | | | | | [place] [address] | | | | + + + + + + + + | Specimen | + + | Blood | + + + + + + + | Performing | Address | City/State/Zipcode | Phone Number | | Organization | | | | + + + + + | [facility] | [address] | [place] [address] | [phone] | + + + + + Potassium [...] (L)Comment: Testing | 3.5 - 4.9 | [facility] | | | | performed at [facility];[address] | mmol/L | LABORATORY | | | | [address];[place] | | | | | | [address] | | | | + + + + + + + + | Specimen | + + | Blood | + + + + + + + | Performing | Address | City/State/Zipcode | Phone Number | | Organization | | | | + + + + + | [facility] | [address] | [place] [address] | [phone] | + + + + + Magnesium [...] Testing | 1.7 - 2.4 mg/dL | [facility] | | | | performed at [facility];[address] | | LABORATORY | | | | [address];[place] | | | | | | [address] | | | | + + + + + + + + | Specimen | + + | Blood | + + + + + + + | Performing | Address | City/State/Zipcode | Phone Number | | Organization | | | | + + + + + | [facility] | [address] | [place] [address] | [phone] | + + + + + Basic [...] | | | | | | MDRD IDWY traceable | | | | | | equation.Testing | | | | | | performed at [facility], [address] | | | | | | [facility], | | | | | | [place] [address] | | | | + + + + + + + + | Specimen | + + | Blood | + + + + + + + | Performing | Address | City/State/Zipcode | Phone Number | | Organization | | | | + + + + + | [facility] | [address] | [place] [address] | [phone] | + + + + + Phosphorus [...] Testing | 2.3 - 4.8 mg/dL | [facility] | | | | performed at [facility];[address] | | LABORATORY | | | | [facility];[place], [place] | | | | | | [address] | | | | + + + + + + + + | Specimen | + + | Blood | + + + + + + + | Performing | Address | City/State/Zipcode | Phone Number | | Organization | | | | + + + + + | [facility] | [address] | [place] [address] | [phone] | + + + + + Hemoglobin [...] KT | | | | performed at [facility];[address] | | LABORATORY | | | | [address];[place], [place] | | | | | | [address] | | | | + + + + + + + + | Specimen | + + | Blood | + + + + + + + | Performing | Address | City/State/Zipcode | Phone Number | | Organization | | | | + + + + + | [facility] | [address] | [place] [address] | [phone] | + + + + + Clostridium [...] at | | | | | | [facility];[address] | | | | | | [address];[place] [address] | | | | + + + + + + + + | Specimen | + + | Stool - Stool | | specimen (specimen) | + + + + + + + | Performing | Address | City/State/Zipcode | Phone Number | | Organization | | | | + + + + + | [facility] | [address] | [place] [address] | [phone] | + + + + + Red [...] + + + | BB BAND | [id number] | | [facility] | | | | | | LABORATORY | | + + + + + + | UNIT # | [id number] | | [facility] | | | | [...] | | | RESULT | performed at [facility];[address] | | LABORATORY | | | | [address];[place] | | | | | | [address] | | | | + + + + + + | UNIT # | [id number] | | [facility] | | | | [...] M LABORATORY | [address] | [place] [address] | [phone] | + + + + + Red [...] | ORDER RECEIVED IN BLOOD | | [facility] | | | COMMENT | BANK. | | LABORATORY | | + + + + + + | BLOOD BANK | Testing performed at | | [facility] | | | COMMENT | [facility];[address] [facility] | | LABORATORY | | | | Blvd;[place] [address] | | | | + + + + + + + + | Specimen | + + | | + + + + + + + | Performing | Address | City/State/Zipcode | Phone Number | | Organization | | | | + + + + + | [facility] | [address] | [place] [address] | [phone] | + + + + + Comprehensive [...] | | | | | performed at [facility];[address] | | | | | | [address];[place], [place] | | | | | | [address] | | | | + + + + + + + + | Specimen | + + | Blood | + + + + + + + | Performing | Address | City/State/Zipcode | Phone Number | | Organization | | | | + + + + + | [facility] | [address] [facility] | [place] [address] | [phone] | + + + + + Urinalysis [...] - 1.030 | [facility] | | | [place], | | | LABORATORY | | | [...] | | | | [facility], [address] | | | | | | [place] | | | | | | [address] | | | | + + + [...] | + + + + + | [facility] | [address] | [place] [address] | [phone] | + + + + + Osmolality, [...] | | | | | [place] [address] | | | | + + + [...] M LABORATORY | [address] | [place] [address] | [phone] | + + + + + Culture, [...] | | LABORATORY | | | | [address];[place] [address] | | | | + + + + + + | RESULT | NO GROWTH 6 DAYS | | [facility] | | | | | | LABORATORY | | + + + + + + | RESULT | Testing performed at | | [facility] | | | | [facility], [address] [facility] | | LABORATORY | | | | [address], [place], [place] | | | | | | [address]esto: Testing | | | | | | performed at [facility], [address] | | | | | | [address], [place], [place] | | | | | | [address] | | | | + + + + + + + + | Specimen | + + | Blood - Swab of line | | insertion site | | (specimen) | + + + + + + + | Performing | Address | City/State/Zipcode | Phone Number | | Organization | | | | + + + + + | [facility] | [address] | [place] [address] | [phone] | + + + + + XR [...] Procedure Note | + + | Espinoza, [id number] - 10/11/2019 10:42 AM PDT | | [...] KR | | | | performed at [facility];[address] | mmol/L | LABORATORY | | | | [address];[place] | | | | | | [address] | | | | + + + + + + + + | Specimen | + + | Blood | + + + + + + + | Performing | Address | City/State/Zipcode | Phone Number | | Organization | | | | + + + + + | [facility] | [address] | [place] [address] | [phone] | + + + + + Osmolality, Serum (10/11/2019 9:30 AM PDT) + + + + + + | Component | Value | Ref Range | Performed | Pathologist | | | | | At | Signature | + + + + + + | Osmolality, | 262 (L)Comment: Testing | 280 - 301 | [facility] | | | Serum | performed at [facility], [address] | mOsm/kg | LABORATORY | | | | [address], | | | | | | [place] [address] | | | | + + + + + + + + | Specimen | + + | Blood | + + + + + + + | Performing | Address | City/State/Zipcode | Phone Number | | Organization | | | | + + + + + | [facility] | [address] | [place] [address] | [phone] | + + + + + CBC [...] 0.05Comment: Testing | 0.00 - 0.10 | [facility] | | | Absolute | performed at [facility];[address] | K/uL | LABORATORY | | | | [address];[place], [place] | | | | | | [address] | | | | + + + + + + + + | Specimen | + + | Blood | + + + + + + + | Performing | Address | City/State/Zipcode | Phone Number | | Organization | | | | + + + + + | [facility] | [address] | [place] [address] | [phone] | + + + + + Lactic Acid (10/09/2019 5:12 AM PDT) + + + + + + | Component | Value | Ref Range | Performed | Pathologist | | | | | At | Signature | + + + + + + | Lactate, | 1.8Comment: Testing | 0.4 - 2.0 | [facility] | | | Serum | performed at [facility];[address] | mmol/L | LABORATORY | | | | [address];[place] | | | | | | [address] | | | | + + + + + + + + | Specimen | + + | Blood | + + + + + + + | Performing | Address | City/State/Zipcode | Phone Number | | Organization | | | | + + + + + | [facility] | [address] | [place] [address] | [phone] | + + + + + Procalcitonin (10/09/2019 5:10 AM PDT) + + + + + + | Component | Value | Ref Range | Performed | Pathologist | | | | | At | Signature | + + + + + + | PROCALCITON | 0.65 (H)Comment: | <0.5 ng/mL | [facility] | | | IN | INTERPRETIVE | [...] | | | | | | at [facility];[address] [place] [address] | | | | | | [facility];[place] [address] | | | | + + + + + + + + | Specimen | + + | Blood | + + + + + + + | Performing | Address | City/State/Zipcode | Phone Number | | Organization | | | | + + + + + | [facility] | [address] | [place] [address] | [phone] | + + + + + POC [...] | | | POC | performed at [facility];[address] | | LABORATORY | | | | [address];[place], [place] | | | | | | [address] | | | | + + + + + + + + | Specimen | + + | | + + + + + + + | Performing | Address | City/State/Zipcode | Phone Number | | Organization | | | | + + + + + | [facility] | [address] | [place] [address] | [phone] | + + + + + PTT [...] [facility] | | | | performed at [facility];[address] | | LABORATORY | | | | [address];[place] | | | | | | [address] | | | | + + + + + + + + | Specimen | + + | Blood | + + + + + + + | Performing | Address | City/State/Zipcode | Phone Number | | Organization | | | | + + + + + | [facility] | [address] | [place] [address] | [phone] | + + + + + POC [...] 7.291 (L) | 7.350 - 7.450 | [facility] | | | Arterial, | [...] | | | POC | performed at [facility];[address] | g/dL | LABORATORY | | | | [address];[place] | | | | | | [address] | | | | + + + + + + + + | Specimen | + + | | + + + + + + + | Performing | Address | City/State/Zipcode | Phone Number | | Organization | | | | + + + + + | [facility] | [address] | [place] [address] | [phone] | + + + + + Red [...] | INR | 1.3Comment: REFERENCE | | [facility] | | | | RANGE:0.9 [...] | | | | | performed at [facility];[address] | | | | | | [facility] [facility];[place], [place] | | | | | | [address] | | | | + + + + + + + + | Specimen | + + | Blood - Artery, | | Radial, Right | + + + + + + + | Performing | Address | City/State/Zipcode | Phone Number | | Organization | | | | + + + + + | [facility] | [address] | [place] [address] | [phone] | + + + + + Surgical [...] | including foreign body giant cell reaction. AMB:[facility]:C2NR MICROSCOPIC | | | EXAMINATION:Histologic sections [...] attached red-white | | | fibromembranous tissue. Carpenter Inspector sections are submitted in | | | [...] | LABORATORY:The technical component was performed by [employer] | | | Walk-in Appointment Scheduler, [address] [place] [address] (Cinder Pit Worker: | | | Asia Rodriguez MD; CLIA# [id number]).Professional interpretation was | | | performed by [facility], [address] | | | [place] [address] (Cinder Pit Worker: Solitario | | | Jacky Recio; CLIA#: [id number]). Diagnostician: Asia Rodriguez | | | MDPathologistElectronically Signed 10/10/2019 | | | | | |PERFORMING LABORATORY: | | |The technical component was performed by [employer], [address] [place] [address] (Cinder Pit Worker: Asia Rodriguez MD; CLIA# [id number]). | | |Professional interpretation [facility], [address] [place] [address] (Cinder Pit Worker: Solitario Recio M.D.; CLIA#: [id number]). | | | | | |Diagnostician: Asia [...] Securement: transparent dressing and tape Placed by: Rudolph | | | Ketan Lowery MD Authorizing [...] Procedure Note | + + | Espinoza, [id number] - 10/04/2019 12:10 PM PDT | | [...] + + | Performing | Address | City/State/[facility] | Phone Number | | Organization | [...] [facility] | | | | performed at [facility];[address] | | LABORATORY | | | | [address];[place], [place] | | | | | | [address] | | | | + + + + + + + + | Specimen | + + | Tissue - Both | | anterior nares (body | | structure) | + + + + + + + | Performing | Address | City/State/Zipcode | Phone Number | | Organization | | | | + + + + + | [facility] | [address] | [place] [address] | [phone] | + + + + + Lipid [...] | | | Calculated | performed at [facility], [address] | | LABORATORY | | | | [address], | | | | | | [place] [address] | | | | + + + + + + + + | Specimen | + + | Blood | + + + + + + + | Performing | Address | City/State/Zipcode | Phone Number | | Organization | | | | + + + + + | [facility] | [address] | [place] [address] | [phone] | + + + + + Uric Acid (10/04/2019 4:26 AM PDT) + + + + + + | Component | Value | Ref Range | Performed | Pathologist | | | | | At | Signature | + + + + + + | Uric Acid | 3.2Comment: Testing | 3.2 - 8.6 mg/dL | [facility] | | | | performed at [facility], [address] | | LABORATORY | | | | [address], | | | | | | [place] [address] | | | | + + + + + + + + | Specimen | + + | Blood | + + + + + + + | Performing | Address | City/State/Zipcode | Phone Number | | Organization | | | | + + + + + | [facility] | [address] | [place] [address] | [phone] | + + + + + Coronavirus [...] | | | | | performed at [facility] | | | | | | [facility];[place], [place] | | | | | | [address] | | | | + + + + + + + + | Specimen | + + | Tissue - Entire | | nasopharynx (body | | structure) | + + + + + + + | Performing | Address | City/State/Zipcode | Phone Number | | Organization | | | | + + + + + | [facility] | [address] | [place] [address] | [phone] | + + + + + ECG [...] | | | | ELLA HART MD ([id number]) | | | | | | on [...] +---------+--------+ | [employer] | [place] | [id number] | 10/03/19 | | | Indemn | | | COMMUN | | 20-Pre | | | ity | | | ITY | | sent | | | | | | CARE | | | | | | + +--------+ +--------+ +---------+--------+ | [employer] | [place] | [id number] | | | | Indemn | | | NS | | 009-Pr | | | ity | | | ADMIN | | esent | | | | | | [place] | | | | | | | | [place] | | | | | | + +--------+ +--------+ +---------+--------+ | MEDICARE | MEDICA | [id number] | 04/30/19 | [phone] | | Medica | | | RE | | 08-Pre | 5 | | re | | | PART A | | sent | | | | | | AND B | | | | | | + +--------+ +--------+ +---------+--------+ | MEDICAID [place] | MEDICA | [id number] | 05/31/19 | [phone] | | Medica [...] Self | [birth year] | [address] | | | al/Fam | | 8 | [phone] | [address] [place], | | | [place] | | | [address] (Home) | [place] [address] | + +--------+ +--------+ + + | Jairo Theodore | Person | Self | [birth year] | [address] | | | al/Fam | | 1960 | [phone] | [address] [place], | | | [place] | | | 0 (Home) | [place] [address] | + +--------+ +--------+ + + Advance Directives + + + + + | Type | Date Recorded | Patient | Explanation | | | | Carpenter Inspector | | + + + + + | Power of | | | | | Purchasing Assistant | | | | + + + [...]
--- OUTSIDE RECORDS SUMMARY | ~2019-11-18 | XMS | Encounter Summary ---
Demographics + + + | Address | [address] | | | [place] [address] | + + + | Home Phone [...] Author + + + | Author | [facility] [facility] | + + + | Organization | [facility] [email or web address] [facility] | + + + | Address | Unknown | + + + | Phone | Unavailable | + + + Support + + +---------+ + | Name | Relationship | Address | Phone | + + +---------+ + | Lele Conley | ECON | Unknown | | + + +---------+ + Care Team Providers + +------+ + | Care Necktie Maker Name | Role | Phone | + [...] | | | | | INDIGO [employer] [facility] | [facility] [address] | | | | | [address] Mailcode: [address] | [place], [place] | | | | | [facility] | [address] | | | | | [place], [place] | [phone] | | | | | [address] | | | | | | [phone] | | | +--------+ + + + [...] + + + + | PRODUCT | [id number] | | [facility] | | | UNIT [...] DEPARTMENT OF | [address] | [place] [address] | | | PATHOLOGY | [address] | | | + + + + + | [facility] DEPARTMENT OF | [address] | [place] [address] | | | PATHOLOGY | [address] [...] DEPARTMENT OF | [address] | [place] [address] | | | PATHOLOGY | [address] | | | + + + + + | [facility] | [address] | [place] [address] | | | PATHOLOGY | [address] | | | + + + + + documented in this encounter Visit Diagnoses Not on filedocumented in this encounter"
--- OUTSIDE RECORDS SUMMARY | ~2019-11-18 | XMS | Encounter Summary ---
Demographics + + + | Address | [address] | | | [place] [address] | + + + | Home Phone | | + + + | Preferred Language | Unknown | + + + | Marital Status | Single | + + + | Pentecostal Affiliation | 1009 | + + + | Race | White | + + + | Ethnic Group | Not or | + + + Author + + + | Author | [facility] | | | and [place] | + + + | Organization | [facility] | | | [...] Team Providers + +------+ + | Care Concert Or Lecture Hall Manager Name | Role | Phone | [...] | | | | | disease) | [place], [place] | | | | | | ([facility]) | [address] | | | | | | Procedures | Phone: | | | | | | VAS Lwr Ext | [phone] | | | | | | Art Bilat w | Fax: | | | | | | DIANNE Multi | [phone] | | | | | | Lvl [...] | | | | | Peripheral | [address] | [place] | | | | | Arterial | Phone: | [place] | | | | | Disease | [phone] | [address] Phone: | | | | | | Fax: | [phone] | | | | | | [phone] | Fax: | | | | | | | [phone] | +--------+--------+ + + + + Encounter Details +--------+---------+ + + + | Date | Type | Department | Care Team | Description | +--------+---------+ + + + | 10/24/ | Office | [facility] | Ricci De León, CLYDE | PAD (peripheral | | 2020 | Visit | VASCULAR SURGERY | [address] | artery disease) | | | | [address] | [place] | ([facility]) (Primary Dx); | | | | [place] | [address] | S/P aortobifemoral | | | | [address] | | bypass surgery; S/P | | | | [phone] | | femoral-femoral | | | | [...] De León DNP - 10/25/2019 9:30 AM [facility] [address] [place] [id number] Office: [phone] DATE OF VISIT: 10/25/2019 PATIENT NAME: Jairo Theodore : 1960; AGE: 59 y.o.; Sex:M PHONE NUMBER: ; ; PROVIDER: Ricci De León DNP PRIMARY CARE / REFERRING PHYSICIAN: No ref. provider found / Lauren Bob MD [facility] [address] REASON FOR EVALUATION / CHIEF COMPLAINT: Vascular [...] [place] | | | | | | [address] | | | | | | | | +--------+ + + + + | 02/06/ | Office | Vascular Surgery | Ricci De León DNP | | 2019 | Visit | | [address] | | | | | | [place], [place] | | | | | | [address] | | | | | | | | | | | | Magdiel Arteaga MD | | | | | | [address] | | | | | | [place] [address] [place] | | | | | | [place] [address] | | | | | | [phone] | | | | | | | [...] cm/sec Right | | | lower extremity: HONEYCOMB DECAPPER prox: 129 cm/sec HONEYCOMB DECAPPER dist: 120 cm/sec | | | Right [...] Procedure Note | + + | Espinoza, [id number] - 11/08/2019 4:04 PM PDT | | [...] | | Right lower extremity: | | HONEYCOMB DECAPPER prox: 129 cm/sec | | HONEYCOMB DECAPPER dist: 120 cm/sec | | | | [...]
--- OUTSIDE RECORDS SUMMARY | ~2019-11-18 | XMS | Encounter Summary ---
Demographics + + + | Address | [address] | | | [place] [address] | + + + | Home Phone | | + + + | Preferred Language | Unknown | + + + | Marital Status | Single | + + + | Scientologist Affiliation | 1009 | + + + | Race | White | + + + | Ethnic Group | Not or | + + + Author + + + | Author | [facility] | | | and [place] | + + + | Organization | [facility] | | | and [...] Team Providers + +------+ + | Care Rn Hospice Name | Role | Phone | + +------+ + | Teresita Bob MD | PCP | | + +------+ + Reason for Visit +---------+--------+ + | Reason | Onset | Comments | | | Date | | +---------+--------+ + | Consult | 11/06/ | Transportation / [facility] Ref[facility] | | | 2020 | | +---------+--------+ + Encounter Details +--------+ + + + + | Date | Type | Department | Care Team | Description | +--------+ + + + + | 11/06/ | Telephone | [facility] | Magdiel Arteaga MD | Consult | | 2020 | | VASCULAR SURGERY | [address] | ([facility] / [facility] | | | | [address] [place] | [place] [facility] | Referral ) | | | | [place], [place] | [place] [address] | | | | | [address] | [phone] | | | | | [phone] | | | +--------+ + + + [...] + + documented as of this encounter Miscellaneous Notes Telephone Encounter - Kathie Hernandez - 11/07/2019 6:26 PM PDTSpoke with patient, Axel fernandez - We were unable to secure a [facility] Referral prior to your scheduled appointment with Dr. Krysta smallwood - Jairo stated that he feels he needs to be seen with or without the [facility] Referral in place do to; above his right groin scar there is a bulge (belly area) that popped up about t wo days ago - also stated that he still has not heard back from the [facility] Transport[facility] so he is not sure if he has a ride tomorrow morning over to [facility] as of yet - Axel fernandez will either call us after 8am to reschedule or he will see us at his scheduled appointm ent at 9am - MMN docum ented in this encounter Plan of Treatment +--------+ + + + + | Date | Type | Specialty | Care Team | Description | +--------+ + + + + | 02/06/ | Appointment | Radiology | Ricci De León, CLYDE | | | 2019 | | | [address] | | | | | | [place] | | | | | | [address] | | | | | | | | +--------+ + + + + | 02/06/ | Office | Vascular Surgery | Ricci De León DNP | | | 2020 | Visit | | [address] | | | | | | [place] | | | | | | [address] | | | | | | | | | | | | Magdiel Arteaga MD | | | | | | [address] | | | | | | [place] [facility] | | | | | | [place] [address] | | | | | | [phone] | | | | | | | | +--------+ + + + + documented as of this encounter Visit Diagnoses Not on filedocumented in this encounter"
--- OUTSIDE RECORDS SUMMARY | ~2019-11-18 | XMS | Encounter Summary ---
Demographics + + + | Address | [address] | | | [place] [address] | + + + | Home Phone | | + + + | Preferred Language | Unknown | + + + | Marital Status | Single | + + + | Presybeterian Affiliation | 1009 | + + + | Race | White | + + + | Ethnic Group | Not or | + + + Author + + + | Author | [facility] | | | and [place] | + + + | Organization | [facility] | | | and [...] Team Providers + +------+ + | Care New Car Salesperson Name | Role | Phone | + [...] | | | | | disease) | [place], [place] | | | | | | ([facility]) | [address] | | | | | | Procedures | Phone: | | | | | | VAS Lwr Ext | [phone] | | | | | | Art Bilat w | Fax: | | | | | | DIANNE Multi | [phone] | | | | | | Lvl [...] | | | | | obstruction | [place], [place] | [place] | | | | | or gangrene | [address] | [address] | | | | | | Phone: | Phone: | | | | | | [phone] | [phone] | | | | | | Fax: | Fax: | | | | | | [phone] | [phone] | + + + + + + [...] | | | | | obstruction | [place] [place] [place] | [place], [place] | | | | | or gangrene | [address] | [address] | | | | | Procedures | Phone: | Phone: | | | | | CT Abdomen | [phone] | [phone] | | | | | Pelvis wo | Fax: | Fax: | | | | | Contrast | [phone] | [phone] | + +--------+ + + + + Reason for Visit + + + | Reason | Comments | + + + | Follow-up | | + + + Encounter Details +--------+---------+ + + + | Date | Type | Department | Care Team | Description | +--------+---------+ + + + | 11/07/ | Office | [facility] | Ricci De León DNP | Incisional hernia, | | 2019 | Visit | VASCULAR SURGERY | [address] | without obstruction | | | | [address] [place] | [place] | or gangrene (Primary | | | | [place] | [address] | Dx); PAD | | | | [address] | | (peripheral artery | | | | [phone] | | disease) (HCC); S/P | | [...] De León DNP - 11/08/2019 10:30 AM [facility] [address] [place] [address] Office: [phone] DATE OF VISIT: 11/08/2019 PATIENT NAME: Jairo Theodore : 1960; AGE: 59 y.o.; Sex:M PHONE NUMBER: ; ; PROVIDER: Ricci De León DNP PRIMARY CARE / REFERRING PHYSICIAN: Ricci De León DNP / Lauren Bob MD / [address] / [facility] [address] REASON FOR EVALUATION / CHIEF COMPLAINT: Vascular [...] gradually improved. He recently was admitted to [facility] on 11/02/2019 for GI bleed and has [...] [place] | | | | | | [address] | | | | | | | | +--------+ + + + + | 02/06/ | Office | Vascular Surgery | Ricci De León DNP | | | 2019 | Visit | | [address] | | | | | | [place] | | | | | | [address] | | | | | | | | | | | | Magdiel Arteaga MD | | | | | | [address] | | | | | | [place] [facility] | | | | | | [place] [address] | | | | | | [phone] | | | | | | | [...] hernia, | Ordered: 11/08/2019 | | to [facility] | Referral | e | [...]
--- OUTSIDE RECORDS SUMMARY | ~2019-11-18 | XMS | Encounter Summary ---
Demographics + + + | Address | [address] | | | [place] [address] | + + + | Home Phone | | + + + | Preferred Language | Unknown | + + + | Marital Status | Single | + + + | Adventist Affiliation | BAP | + + + | Race | White | + + + | Ethnic Group | Not or | + + + Author + + + | Author | [facility] | + + + | Organization | [facility] | + + + | Address | Unknown | + + + | Phone | Unavailable | + + + Support + + +---------+ + | Name | Relationship | Address | Phone | + + +---------+ + | Lele Conley | ECON | Unknown | | + + +---------+ + Care Team Providers + +------+ + | Care Timber Harvester Operator Name | Role | Phone | [...] | | | | Physicians Katelyn, | [place], [place] | | | | | [address] [place] [address] | [address] | | | | | [place], [place] | [phone] | | | | | [address] | | | | | | [phone] | | | +--------+ + + + [...] this encounter Miscellaneous Notes Telephone Encounter - Luara Lucas Ma - 05/26/2007 10:25 AM PDTPer Jairo Asencio was given Vicoden 5/500, quantity of 50 with no refills. Directions to take 1 tablet by mouth every 4-6 hours as needed for pain. I let Jairo know this was called to his [facility] in [place] at [phone]. 10 :25 AM PDTTelephone Encounter - Nicolas Turner - 05/26/2007 10:09 AM PDTI spoke with the yomaira ent regarding the left leg pain. He is having thigh, calf, and foot pain. 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 I informed the patient that there is a risk to leaving the left leg pain unattended to. I kassandra mmended coming in to our clinic for evaluation for limb ischemia. The patient does not think that the limb is ischemic and he just wants to relieve some of the nighttime discomfort. He has an appt with a new primary MD. He will come to the ER if the pain worsens. Electronical ly signed by Nicolas Turner at 05/26/2007 10:09 AM PDTTelephone Encounter - Pam Rodriguez - 05/25/2007 2:13 PM PDTPt called re numbness and achiness in legs. He would like a prescrip tion for Vicodin called into his pharmacy.Electronically signed by Pam Rodriguez at 2007 2:13 PM PDTdocumented in this encounter Plan of Treatment Not on filedocumented as of this encounter Visit Diagnoses Not on filedocumented in this encounter"
--- OUTSIDE RECORDS SUMMARY | ~2019-11-18 | XMS | Encounter Summary ---
Demographics + + + | Address | [address] | | | [place] [address] | + + + | Home Phone | | + + + | Preferred Language | Unknown | + + + | Marital Status | Single | + + + | Taoist Affiliation | BAP | + + + | Race | White | + + + | Ethnic Group | Not or | + + + Author + + + | Author | [facility] | + + + | Organization | [facility] | + + + | Address | Unknown | + + + | Phone | Unavailable | + + + Support + + +---------+ + | Name | Relationship | Address | Phone | + + +---------+ + | Lele Conley | ECON | Unknown | | + + +---------+ + Care Team Providers + +------+ + | Care Collection Agent Name | Role | Phone | + [...] [address] | | | | | | [place], [place] | | | | | | [address] | | | +--------+ + + + [...] + documented as of this encounter Procedure Janet Holliday, Faculty - 07/22/2011 10:15 AM PDTAssociated Order(s): ORDERS OTHERElectronically sig linnette by Faculty Miya at 07/22/2011 10:15 AM PDTOther, Faculty - 07/22/2011 9:38 AM PDTAssoc iated Order(s): ORDERS OTHER Tdocumented in this encounter Plan of Treatment Not [...]
--- OUTSIDE RECORDS SUMMARY | ~2019-11-18 | XMS | Encounter Summary ---
Demographics + + + | Address | [address] | | | [place] [address] | + + + | Home Phone | | + + + | Preferred Language | Unknown | + + + | Marital Status | Single | + + + | Sabianism Affiliation | BAP | + + + | Race | White | + + + | Ethnic Group | Not or | + + + Author + + + | Author | [facility] | + + + | Organization | [facility] [employer] [facility] | + + + | Address | Unknown | + + + | Phone | Unavailable | + + + Support + + +---------+ + | Name | Relationship | Address | Phone | + + +---------+ + | Lele Conley | ECON | Unknown | | + + +---------+ + Care Team Providers + +------+ + | Care Case Briefer Name | Role | Phone | + [...] [address] | | | | | | [place], [place] | | | | | | [address] | | | +--------+ + + + [...]
--- OUTSIDE RECORDS SUMMARY | ~2019-11-18 | XMS | Encounter Summary ---
Demographics + + + | Address | [address] | | | [place] [address] | + + + | Home Phone | | + + + | Preferred Language | Unknown | + + + | Marital Status | Single | + + + | Amish Affiliation | 1009 | + + + | Race | White | + + + | Ethnic Group | Not or | + + + Author + + + | Author | [facility] | | | and [place] | + + + | Organization | [facility] | | | [...] Team Providers + +------+ + | Care Hub Bander Name | Role | Phone | + [...] + + | 10/07/ | Surgery | [facility] | Magdiel Arteaga MD | THROMBECTOMY / | | 2019 | [facility] | [address] | EMBOLECTOMY of fem | | | | OPERATING RO[address] | [address] | fem bypass | | | | [address] | [place] [address] | | | | | [place], [place] | [phone] | | | | | [address] | | | | | | [phone] | | | +--------+---------+ + + + [...] GRAFT FEMORAL-POPLITEAL (Bilateral) ANGIOGRAM - EXTREMITY BILATERAL (88816) (Bilateral) Chief Complaint: No chief complaint on [...] on 10/03/2019 Transfer from [facility] with bilateral hip and pelvic burning pain [...] have wound check in 2 weeks wit [facility] to provide transportation, continue with aspirin 81 mg daily, Plavix 75 mg daily, atorv astatin 40 mg daily. Active Problems: Alcohol abuse/ Tobacco abuse advised to stop smoking and drinking Cellulitis of right foot has been completely treated with Augmentin while in the hospital Discharge Information: Follow [facility]: [facility] Bob [facility] [id number] Follow up for Home health Wound Care [facility] [address] [place] [phone] Follow up Wound Care and Physical [...] you recover. Don t drive for at [id number] after your surgery or while you are [...] Herve last reviewed this educational content on 11/29/201819998319-2402 The [employer]. [address] [place] [address], [place] [address]. All righ ts reserved. This information is [...] of developing AAA decreases. To learn more Smokefree.gov/dmrt-wi-ai-expert National Cancer Sears Smoking Quitline:176-00Q-UIOX (101-841-5025) [employer] last reviewed this educational content on 12/30/201819998011-3929 The [employer]. [address] [place] [address], [place] [address]. All righ ts reserved. This information is [...] find a support program: Free national quitline 231-ASQH-HKA (447-655-8640) [facility] quit-smoking programs Swedish [employer] Association 084-780-6811 Swedish [employer] Society 460-112-0301 Support at home is important too. Family and friends can offer praise and reassurance. If t he smoker in your life finds it hard to quit, encourage them to keep trying. Try iiyx-edm-kmbxdiy medicine Nicotine replacement therapymay make iteasier to [...] to quit smoking, try these resources: www.cdc.gov/tobacco/quit_smoking/ 242-YEAY-YRM (998-107-5141) www.smokefree.gov 818-45Y-NQQP (141-532-5879) www.lung.org/stop-smoking/ 800-LUNGUSA (477-086-5343) [employer] lynn reviewed this educational content on 01/29/201919992111-1080 The [employer]. [address] [place] [address]. All righ ts reserved. This information is [...] PA- C - 10/16/2019 7:20 AM PDT [facility] Service: Vascular Surgery Progress Note Hospital Day: LOS: 13 days Post-Op Day: 11/06 SUBJECTIVE Patient Summary: The patient is a 59 y.o. 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 He unde rwent aortobifemoral bypass in 1999. [...] which revealed enlargement of known right MANAGER DISASTER RECOVERY pseudoaneurysm. He was transferred to [facility] [...] importance of following up with our office care home. Still recommend discharge ho me with assist [...] 10/15/2019 10:30 AM PDT . Jairo Theodore [id number] Hospital Day: 12 SUBJECTIVE Events Overnight: Patient [...] right to left femoral [facility] with 8 mm PTFE. Continue with [...] been in touch with his Merrill, Lele [phone] and he did not want me to call him.. More th an 35 minutes spent directly face to face with patient and more than 65% spent for physical examination and discussing care and counseling about patient illness with patient and relat augutsa at bedside, on chart review, coordinating care with other providers, formulating a plan of care and management as well as Computerized Physician Director Graphics. Dictation software, [employer], used which may contain error for similar sounding words even af ter review. Portions of this chart may have been copied from previous notes for continuity of care. Mundo Pack MD, FACP, FAAP 10/15/2019 il son, Chelsi Hebert PA-C - 10/15/2019 8:47 AM PDT [facility] Service: Vascular Surgery Progress Note Hospital [...] of alcohol abuse who presented to [facility] with com plaints of cellulitis of right leg as well as enlarging pseudoaneurysm of right MANAGER DISASTER RECOVERY. He unde rwent aortobifemoral bypass in 1999. [...] which revealed enlargement of known right MANAGER DISASTER RECOVERY pseudoaneurysm. He was transferred to [facility] [...] swelling. Call with any neurovascular changes. Appr [facility] assistance with management of this patient. Disposition: [...] - 10/14/2019 9:23 AM PDT Jairo Theodore [id number] Hospital Day: 11 SUBJECTIVE Events Overnight: Patient [...] been in touch with his Merrill, Lele [phone] and he did not want me to [...] and management as well as Computerized Physician Director Graphics. Dictation software, [employer], used which may contain error for similar sounding words even af ter review. Portions of this chart may have been copied from previous notes for continuity of care. 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 He unde rwent aortobifemoral bypass in 1999. [...] which revealed enlargement of known right MANAGER DISASTER RECOVERY pseudoaneurysm. 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 He unde rwent aortobifemoral bypass in 1999. [...] which revealed enlargement of known right MANAGER DISASTER RECOVERY pseudoaneurysm. He was transferred to [facility] [...] different from t wyatt original. Jairo Theodore [id number] Hospital Day: 10 SUBJECTIVE Events Overnight: Patient [...] right to left femoral to [facility] with 8 mm PTFE. Continue with [...] been in touch with his Merrill, Lele [phone] and he did not want me to [...] and management as well as Computerized Physician Director Graphics. Dictation software, [employer], used which may contain error for similar [...] different from the orig inal. Jairo Theodore [id number] Hospital Day: 9 SUBJECTIVE Events Overnight: Patient [...] right to left femoral to femoral [facility] with 8 mm PTFE. Continue with [...] been in touch with his Merrill, Lele [phone] and he did not want me to [...] and management as well as Computerized Physician Director Graphics. Dictation software, [employer], used which may contain error for similar sounding words even af ter review. Portions of this chart may have been copied from previous notes for continuity of care. Mundo Pack MD, FACP, FAAP 10/12/2019 il son, Chelsi Hebert PA-C - 10/12/2019 9:17 AM PDT [facility] Service: Vascular Surgery Progress Note Hospital [...] of alcohol abuse who presented to [facility] with com plaints of cellulitis of right leg as well as enlarging pseudoaneurysm of right MANAGER DISASTER RECOVERY. He unde rwent aortobifemoral bypass in 1999. [...] which revealed enlargement of known right MANAGER DISASTER RECOVERY pseudoaneurysm. He was transferred to [facility] [...] Color, UA YELLOW Clarity, Urine CLEAR Specific [place], Urine 1.008 1.002 - 1.030 Leukocyte esterase, [...] BANK. BLOOD BANK COMMENT Testing performed at [facility];[address] [place] [address] Type and Screen Collection Time: 10/12/19 7:52 AM Result Value Ref Range ABO Rh A POSITIVE Antibody Screen NEGATIVE BB BAND [id number] BB BAND Testing performed at [facility];[address] [place] [address] UNIT # [id number] Product Code LEUKODEPLETED PC Unit Division 00 Unit Status ALLOCATED Transfusion Status OK TO TRANSFUSE CROSSMATCH RESULT COMPATIBLE UNIT # [id number] Product Code LEUKODEPLETED PC Unit Division 00 [...] call wit h any neurovascular changes. [facility] this pat [...] be different from the originluis lWalter Theodore [id number] Hospital Day: 8 SUBJECTIVE Events Overnight: Patient [...] right to left femoral to femoral [facility] with 8 mm PTFE. Continue with [...] been in touch with his Merrill, Lele [phone] and he did not want me to [...] and management as well as Computerized Physician Director Graphics. Dictation software, [employer], used which may contain error for similar sounding words even af ter review. Portions of this chart may have been copied from previous notes for continuity of care. 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 He unde rwent aortobifemoral bypass in 1999. [...] which revealed enlargement of known right MANAGER DISASTER RECOVERY pseudoaneurysm. He was transferred to [facility] [...] Full Chelsi Arteaga PA-C 10/11/2019 Rachel Trinidad [facility] - 10/10/2019 11:59 AM PDTFormatting of this [...] PO medications. Thank You, Rachel Cifuentes, PharmD, [facility] 10/10/19 11:59 AM PDT Electronically signed by Rachel Cifuentes [facility] at 10/10/2019 11:59 AM Arlene Crum P A-C - 10/10/2019 11:36 AM PDT [facility] Service: Vascular Surgery Progress Note Hospital [...] of alcohol abuse who presented to [facility] with com plaints of cellulitis of right leg as well as enlarging pseudoaneurysm of right MANAGER DISASTER RECOVERY. He unde rwent aortobifemoral bypass in 1999. [...] which revealed enlargement of known right MANAGER DISASTER RECOVERY pseudoaneurysm. He was transferred to [facility] [...] might be different from the or iginal. [facility] Service: Excavation Laborer Progress Note Jairo Theodore 59 y.o. Hospital [...] was farnsworth sferred on 10/03/2019 from [facility] for right foot swelling and increase [...] procedures. Tyler Elias MD 10/10/2019 Dictation software, [employer], was used which may contain error with similar sound words even after review. Portions of this chart may have been copied from previous notes for continuity of care. Daniella Airas RN - 10/09/2019 10:20 AM PDTFamily/ career agent updated by pt. Chelsi Orta PA-C - 10/09/2019 7:08 AM PDT [facility] Service: Vascular Surgery Progress Note Hospital [...] of alcohol abuse who presented to [facility] with com plaints of cellulitis of right leg as well as enlarging pseudoaneurysm of right MANAGER DISASTER RECOVERY. He unde rwent aortobifemoral bypass in 1999. [...] which revealed enlargement of known right MANAGER DISASTER RECOVERY pseudoaneurysm. He was transferred to [facility] [...] Gr MD - 10/09/2019 1:[address] [facility] Service: Excavation Laborer Progress Note Jairo Theodore 59 y.o. Hospital [...] was farnsworth sferred on 10/03/2019 from [facility] for right foot swelling and increase [...] procedures. Julian Gr MD 10/09/2019 Dictation software, [employer], was used which may contain error with [...] by vascular surgery. R eport given to HOT TAMALE WORKER. Pt safely transferred to room 27180. Incisions and dressings were teresa an and dry. Post tib and pedal pulses dopplerable. JADA SHINE RN Chyna Rashid MD - 10/08/2019 4:[address] [facility] Service: Hospitalist Progress Note Hospital Day: LOS: 5 days SUBJECTIVE Patient Summary: Mr. Theodore is a 59 yr old man active smoker 1ppday with alcohol abuse, hx of PAD, s/p right aorto bifemoral bypass in 1999 complicated by pseudoaneurysm, s/p revision, was transferred from [facility] ED for right foot swelling and increasing [...] endarterectomy, right to left femoral [facility]. Patient had an EBL [...] Rashid MD - 10/07/2019 3:[address] [facility] Service: Hospitalist Progress Note Hospital Day: LOS: 4 days SUBJECTIVE Patient Summary: Mr. Theodore is a 59 yr old man active smoker 1ppday with alcohol abuse, hx of PAD, s/p right aorto bifemoral bypass in 1999 complicated by pseudoaneurysm, s/p revision, was transferred from [facility] ED for right foot swelling and [...] A POSITIVE Antibody Screen NEGATIVE BB BAND VICE PRESIDENT AND PORTFOLIO MANAGER 0630 BB BAND Testing performed at [facility];[address] [place] [address];[place] [address] UNIT # [id number] Product Code LEUKODEPLETED PC Unit Division 00 Unit Status ISSUED Transfusion Status OK TO TRANSFUSE CROSSMATCH RESULT COMPATIBLE UNIT # [id number] Product Code LEUKODEPLETED PC Unit Division 00 Unit Status ISSUED Transfusion Status OK TO TRANSFUSE CROSSMATCH RESULT COMPATIBLE UNIT # [id number] Product Code LEUKODEPLETED PC Unit Division 00 Unit Status ALLOCATED Transfusion Status OK TO TRANSFUSE CROSSMATCH RESULT COMPATIBLE UNIT # [id number] Product Code LEUKODEPLETED PC Unit Division 00 Unit Status ALLOCATED Transfusion Status OK TO TRANSFUSE CROSSMATCH RESULT COMPATIBLE Red Blood Cells (PRBC) - Crossmatch and Hold Result Value Ref Range Product Code RED CELL GROUP Units ordered 2 BLOOD BANK COMMENT ORDER RECEIVED IN BLOOD BANK. BLOOD BANK COMMENT Testing performed at [facility];[address] [place] [address];[place] [address] POC ISTAT, CG8, Arterial Result Value Ref [...] BANK. BLOOD BANK COMMENT Testing performed at [facility];[address] [place] [address];[place] [address] POC ISTAT, CG8, Arterial Result Value Ref [...] Milian PA-C - 10/07/2019 7:08 AM PDT [facility] Service: Vascular Surgery Progress Note Hospital Day: LOS: 4 days Post-Op Day: * No surgery date entered * SUBJECTIVE Patient Summary: The patient is a 59 y.o. 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 He unde rwent aortobifemoral bypass in 1999. [...] which revealed enlargement of known right MANAGER DISASTER RECOVERY pseudoaneurysm. He was [place] [facility] [...] A POSITIVE Antibody Screen NEGATIVE BB BAND VICE PRESIDENT AND PORTFOLIO MANAGER 0630 BB BAND Testing performed at [facility];[address] [place] [address] UNIT # [id number] Product Code LEUKODEPLETED PC Unit Division 00 Unit Status ALLOCATED Transfusion Status OK TO TRANSFUSE CROSSMATCH RESULT COMPATIBLE UNIT # [id number] Product Code LEUKODEPLETED PC Unit Division 00 Unit Status ALLOCATED Transfusion Status OK TO TRANSFUSE CROSSMATCH RESULT COMPATIBLE Red Blood Cells (PRBC) - Crossmatch and Hold Collection Time: 10/07/19 6:30 AM Result Value Ref Range Product Code RED CELL GROUP Units ordered 2 BLOOD BANK COMMENT ORDER RECEIVED IN BLOOD BANK. BLOOD BANK COMMENT Testing performed at [facility];[address] [place] [address] PROBLEM LIST Principal Problem: Pseudoaneurysm right aorto [...] Shook MD - 10/06/2019 10:[address] [facility] Service: Hospitalist Progress Note Hospital Day: LOS: 3 days SUBJECTIVE Patient Summary: Mr. Theodore is a 59 yr old man active smoker 1ppday with alcohol abuse, hx of PAD, s/p right aorto bifemoral bypass in 1999 complicated by pseudoaneurysm, s/p revision, was transferred from [place] ED for right foot swelling and increasing [...] Crum PA-C - 10/06/2019 9:32 AM PDT [facility] Service: Vascular Surgery Progress Note Hospital Day: LOS: 3 days Post-Op Day: * No surgery date entered * SUBJECTIVE Patient Summary: The patient is a 59 y.o. 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 He unde rwent aortobifemoral bypass in 1999. [...] which revealed enlargement of known right MANAGER DISASTER RECOVERY pseudoaneurysm. He was transferred to [facility] [...] Rashid MD - 10/05/2019 12:[address] [facility] Service: Hospitalist Progress Note Hospital Day: LOS: 2 days SUBJECTIVE Patient Summary: Mr. Theodore is a 59 yr old man active smoker 1ppday with alcohol abuse, hx of PAD, s/p right aorto bifemoral bypass in 1999 complicated by pseudoaneurysm, s/p revision, was transferred from [facility] ED for right foot swelling and [...] Crum PA-C - 10/05/2019 8:18 AM PDT [facility] Service: Vascular Surgery Progress Note Hospital Day: LOS: 2 days Post-Op Day: * No surgery date entered * SUBJECTIVE Patient Summary: The patient is a 59 y.o. 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 He unde rwent aortobifemoral bypass in 1999. [...] which revealed enlargement of known right MANAGER DISASTER RECOVERY pseudoaneurysm. He was transferred to [facility] [...] open repair for his enlarging right MANAGER DISASTER RECOVERY pseudoaneurysm. He will need r etroperitoneal exposure [...] Rashid MD - 10/04/2019 9:[address] [facility] Service: Hospitalist Progress Note Hospital Day: LOS: 1 day SUBJECTIVE Patient Summary: Mr. Theodore is a 59 yr old man active smoker 1ppday with alcohol abuse, hx of PAD, s/p right aorto bifemoral bypass in 1999 complicated by pseudoaneurysm, s/p revision, was transferred from [facility] ED for right foot swelling and increasing [...] LYTY 0809 BB BAND Testing performed at [facility];[address] [place] [address];[place] [address] ECG 12 lead Result Value Ref Range [...] if blood cultures were taken at [facility] Prn pain medication Pseudoaneurysm right femoral [...] might be different from t he original. [facility] Service: Hospitalist Admission History & Physical [...] who p resents as a transfer from [facility] ED for pseudoaneurysm of the right groin and celluli tis of the RLE. Per patient right pseudoaneurysm of the right groin has been getting bigger for at least a year. Right foot swelling for 5 days. Patient reports similar episodes at [facility] twice a year but this time [...] LYTY 0809 BB BAND Testing performed at [facility];[address] [place] [address];[place] [address] ECG 12 lead Result Value Ref Range INTERPRETATION TEXT Not Confirmed IMAGING No orders to display EKG at 2310: NSR, VR 72, Qtc 455. Data from [facility] -Ultrasound impression: 6.3 x 5.1 x 5.8 [...] delirium tremens, seizures from withdrawals or withdrawals -[facility] protocol initiated Tobacco abuse: -Quit smoking today smoke a pack of cigarettes per day -Nicotine patch Hypokalemia GI and DVT prophylaxis Code Status: Full Code Dictation software, [employer], used which may contain errors for similar [...] this note might be different from the [facility] Service: Excavation Laborer Initial Consult Note Jairo Theodore 59 y.o. [...] transf erred 5 days ago from [facility] for right foot swelling and increase [...] ENDARTERECTOMY FEMORAL; Surgeon: Magdiel Arteaga MD; Location: [facility] MAIN OR FEMORAL-FEMORAL BYPASS GRAFT N/A 10/07/2019 Procedure: BYPASS GRAFT FEMORAL-FEMORAL; Surgeon: Magdiel Arteaga MD; Location: [facility] MAIN OR OTHER SURGICAL HISTORY Right 10/07/2019 Procedure: REPAIR PSEUDOANEURYSM- FEMORAL; Surgeon: Magdiel Arteaga MD; Location: [facility] GABI N OR ALLERGIES Allergies Allergen Reactions [...] file Gets together: Not on file Attends buddhism service: Not on file Active member of [...] PDTAssociated Order(s): PROVIDER TO PROVIDER CONSUL T [facility] Service: Vascular Surgery Initial Consult Note Date of Admission: 10/03/2019 Date of Consultation: 10/04/2019 Reason for Consultation: Pseudoaneurysm of right MANAGER DISASTER RECOVERY Primary Care Physician: No Physician on file History Obtained From: Patient, chart review Code Status: Full Code CHIEF COMPLAINT: Right foot swelling and pain; Enlarging right femoral pseudoaneurysm HISTORY OF PRESENT ILLNESS The patient is a 59 y.o. male with significant past medical history of tobacco abuse, HTN, CAD, history of alcohol abuse who presented to [facility] with complaints of cellulitis o f right leg as well as enlarging pseudoaneurysm of right MANAGER DISASTER RECOVERY. He underwent aortobifemoral by pass in 1999. [...] reveal ed enlargement of known right MANAGER DISASTER RECOVERY pseudoaneurysm. He was [place] [facility] [...] de is chronically occluded per review of [facility] notes and angiographic report from 2007. His C TA with runoff yesterday showed enlarging right femoral pseudoaneurysm. Left MANAGER DISASTER RECOVERY shows no in flow but reconstitutes. The patient will require revascularization and open repair for his e nlarging right MANAGER DISASTER RECOVERY pseudoaneurysm. He will need retroperitoneal exposure with [...] Current Outpt/Agency/Support Groups: yes Community Agency Name: [facility] Disciplines: RN and PT - RN for wound care Equipment Durable Medical Equipment Provider: Home Equipment at Discharge: none Equipment Used at Home: cane, straight, single point Pharmacy Pharmacy/Medication needs: Pt is going to use [facility] and will use his Medicare Part D benefits. AGRICULTURE WORKER and Pt called [facility], got him reestablished with the [facility], has not been seen since 2018 . Pt is now assigned to [facility]. AGRICULTURE WORKER p/c with Rudolph [facility] [facility] Team Linda Bob, states they will be calling Pt for follow up appt and will send referral for outpatient wound care. AGRICULTURE WORKER p/c with Carol at [facility], states she has received [facility] in the p ast and will follow up with Dr. Bob's office. AGRICULTURE WORKER provided referral and faxed Home health referral. [...] Bed Mobility Supine to Sit, Level of Car[place]: modified independent Sit to Supine, Level of [place]: modified independent Safety Issues: decreased use of legs for bridging/pushing Transfers Sit-Stand, Level of [place]: supervised Stand-Sit, Level of [place]: supervised Kir-Wfxcx-Knj, Assistive Device: none Gait Level of [place]: supervised Assistive Device: none Distance (feet): 40 Goals Reflects last filed data and may be from multiple contributors. All Bed Mobility Goal Most Recent Value LTG Status new at 10/09/2019 1108 LTG [place] Level modified independent at 10/09/2019 1108 LTG Assistive Device none at 10/09/2019 1108 All Transfers Goal Most Recent Value LTG Status new at 10/09/2019 1108 LTG [place] Level modified independent at 10/09/2019 1108 LTG Assistive Device 2 wheeled walker (FWW) at 10/09/2019 1108 Gait Goal Most Recent Value LTG Status new at 10/09/2019 1108 LTG [place] Level modified independent at 10/09/2019 1108 LTG Assistive Device 2 wheeled walker (FWW) at 10/09/2019 1108 LTG Distance (feet) 100 at 10/09/2019 1108 Stair Goal Most Recent Value LTG Status new at 10/09/2019 1108 LTG [place] Level modified independent at 10/09/2019 1108 LTG [...] chart, per PA request. Chart check complete. iSgrid Calzada RN lan of Care - Makenzie [...] bed rails Supine to Sit, Level of [place]: modified independent Safety Issues: decreased use of legs for bridging/pushing Impairments: ROM decreased, strength decreased Transfers Sit-Stand, Level of [place]: stand by assist, verbal cues required Stand-Sit, Level of [place]: stand by assist, verbal cues required Tzx-Kcdxu-Sko, Assistive Device: 2 wheeled walker (FWW), none Toilet, Level of [place]: stand by assist, verbal cues required Toilet, Assistive Device: 2 wheeled walker (FWW), grab bars Gait Gait Comments: antalgic gait with flexed trunk posture and intermittent crouch position Level of Carleton: stand by assist, verbal cues required(verbal cues [...] LTG Status new at 10/09/2019 1108 LTG [place] Level modified independent at 10/09/2019 1108 LTG Assistive Device none at 10/09/2019 1108 All Transfers Goal Most Recent Value LTG Status new at 10/09/2019 1108 LTG [place] Level modified independent at 10/09/2019 1108 LTG Assistive Device 2 wheeled walker (FWW) at 10/09/2019 1108 Gait Goal Most Recent Value LTG Status new at 10/09/2019 1108 LTG [place] Level modified independent at 10/09/2019 1108 LTG Assistive Device 2 wheeled walker (FWW) at 10/09/2019 1108 LTG Distance (feet) 100 at 10/09/2019 1108 Stair Goal Most Recent Value LTG Status new at 10/09/2019 1108 LTG [place] Level modified independent at 10/09/2019 1108 LTG [...] Bed Mobility Supine to Sit, Level of Car[place]: minimal assist (75% patient effort) Transfers Sit-Stand, Level of Car[place]: minimal assist (75% patient effort) Gait Level of Car[place]: minimal assist (75% patient effort) Assistive Device: [...] LTG Status new at 10/09/2019 1108 LTG [place] Level modified independent at 10/09/2019 1108 LTG Assistive Device none at 10/09/2019 1108 All Transfers Goal Most Recent Value LTG Status new at 10/09/2019 1108 LTG [place] Level modified independent at 10/09/2019 1108 LTG Assistive Device 2 wheeled walker (FWW) at 10/09/2019 1108 Gait Goal Most Recent Value LTG Status new at 10/09/2019 1108 LTG [place] Level modified independent at 10/09/2019 1108 LTG Assistive Device 2 wheeled walker (FWW) at 10/09/2019 1108 LTG Distance (feet) 100 at 10/09/2019 1108 Stair Goal Most Recent Value LTG Status new at 10/09/2019 1108 LTG [place] Level modified independent at 10/09/2019 1108 LTG [...] participation. Pt with an i ncontinent BM. THIN FILM TECHNICIAN and PT assisting with mobility and pericare. [...] Transfers Additional Documentation: toilet Sit-Stand, Level of Carleton: minimal assist (75% patient effort) Stand-Sit, Level of Car[place]: minimal assist (75% patient effort) Ium-Hkzli-Wrc, Assistive Device: 2 wheeled walker (FWW) Toilet, Level of Carleton: minimal assist (75% patient effort) Toilet, Assistive Device: 2 wheeled walker (FWW) Safety Issues: loses balance backward, weight-shifting ability decreased, step length decre ased, sequencing ability decreased, balance decreased during turns Impairments: ROM decreased, strength decreased, impaired balance Gait Gait Comments: reduced step length BLE, excessive trunk flexion, reduced weight bearing RLE , avoidance COG over HAN Level of Carleton: minimal assist (75% patient effort) Assistive Device: 2 wheeled walker (FWW) Distance (feet): 15x2 Goals Reflects last filed data and may be from multiple contributors. All Bed Mobility Goal Most Recent Value LTG Status new at 10/09/2019 1108 LTG [place] Level modified independent at 10/09/2019 1108 LTG Assistive Device none at 10/09/2019 1108 All Transfers Goal Most Recent Value LTG Status new at 10/09/2019 1108 LTG [place] Level modified independent at 10/09/2019 1108 LTG Assistive Device 2 wheeled walker (FWW) at 10/09/2019 1108 Gait Goal Most Recent Value LTG Status new at 10/09/2019 1108 LTG [place] Level modified independent at 10/09/2019 1108 LTG Assistive Device 2 wheeled walker (FWW) at 10/09/2019 1108 LTG Distance (feet) 100 at 10/09/2019 1108 Stair Goal Most Recent Value LTG Status new at 10/09/2019 1108 LTG [place] Level modified independent at 10/09/2019 1108 LTG [...] Recommendations: 2 wheeled walker (FWW), shower chair, dev ops engineer, sock aide, long handled sponge, long handled [...] bed rails Supine to Sit, Level of Car[place]: minimal assist (75% patient effort) Sit to Supine, Level of [place]: moderate assist (50% patient effort) Safety Issues: decreased use of legs for bridging/pushing, decreased use of arms for pushin g/pulling Impairments: ROM decreased, strength decreased, postural control impaired, pain Transfers Additional Documentation: sit to/from stand Sit-Stand, Level of Car[place]: minimal assist (75% patient effort) Stand-Sit, Level of Car[place]: maximal assist (25% patient effort) Los-Tnwlv-Iih, Assistive Device: 2 wheeled walker (FWW), gait belt Safety Issues: loses balance backward, weight-shifting ability decreased, step length decre ased, sequencing ability decreased, balance decreased during turns Impairments: ROM decreased, strength decreased, impaired balance ROM Comments: WFL Strength Comments: WFL. B plastic top assembler strength 4/5. B UE MMT 4/5 except for biceps 3+/5 Balance Sitting Balance: Static: good balance Sitting Balance: Dynamic: good balance Standing Balance: Static: poor balance Standing Balance: Dynamic: poor balance Goals Reflects last filed data and may be from multiple contributors. LB Dressing Goal Most Recent Value LTG Status new at 10/10/2019 1545 LTG [place] Level minimum assist (75% patient effort), set up required at 10/10/2019 1545 LTG Adaptive Equipment dev ops engineer, sock-aid at 10/10/2019 1545 Toilet Transfer Goal Most Recent Value LTG Status new at 10/10/2019 1545 LTG [place] Level minimum assist (75% patient effort) at [...] at bedside in ICU on turnover by assembler engine. Patient stat es he feels better, no [...] bed rails Supine to Sit, Level of Car[place]: minimal assist (75% patient effort) Transfers Bed-Chair, Level of Car[place]: minimal assist (75% patient effort) Gsp-Amamb-Gzl, Assistive Device: 2 wheeled walker (FWW), gait belt Sit-Stand, Level of Car[place]: minimal assist (75% patient effort), stand by assist Stand-Sit, Level of [place]: minimal assist (75% patient effort), stand by assist Gait Gait Comments: reduced step length BLE, excessive trunk flexion, reduced weight bearing RLE , avoidance COG over HAN Level of Car[place]: minimal assist (75% patient effort), verbal cues [...] LTG Status new at 10/09/2019 1108 LTG [place] Level modified independent at 10/09/2019 1108 LTG Assistive Device none at 10/09/2019 1108 All Transfers Goal Most Recent Value LTG Status new at 10/09/2019 1108 LTG [place] Level modified independent at 10/09/2019 1108 LTG Assistive Device 2 wheeled walker (FWW) at 10/09/2019 1108 Gait Goal Most Recent Value LTG Status new at 10/09/2019 1108 LTG [place] Level modified independent at 10/09/2019 1108 LTG Assistive Device 2 wheeled walker (FWW) at 10/09/2019 1108 LTG Distance (feet) 100 at 10/09/2019 1108 Stair Goal Most Recent Value LTG Status new at 10/09/2019 1108 LTG [place] Level modified independent at 10/09/2019 1108 LTG [...] Family Contact Information: Name: Lele Conley (Roommate) [id number] signed by PORTILLO Varner at 10/10/2019 10:13 [...] HOB elevated Supine to Sit, Level of Carleton: maximal assist (25% patient effort) Safety Issues: decreased use of legs for bridging/pushing, impaired trunk control for bed m obility Impairments: pain, strength decreased, ROM decreased Transfers Additional Documentation: sit to/from stand, bed to/from chair Bed-Chair, Level of Car[place]: moderate assist (50% patient effort) Ncj-Ajciv-Gpv, Assistive Device: 2 wheeled walker (FWW) Sit-Stand, Level of [place]: minimal assist (75% patient effort) Stand-Sit, Level of Car[place]: minimal assist (75% patient effort) Mpe-Cpoci-Khl, Assistive Device: 2 wheeled walker (FWW) Safety [...] LTG Status new at 10/09/2019 1108 LTG [place] Level modified independent at 10/09/2019 1108 LTG Assistive Device none at 10/09/2019 1108 All Transfers Goal Most Recent Value LTG Status new at 10/09/2019 1108 LTG [place] Level modified independent at 10/09/2019 1108 LTG Assistive Device 2 wheeled walker (FWW) at 10/09/2019 1108 Gait Goal Most Recent Value LTG Status new at 10/09/2019 1108 LTG [place] Level modified independent at 10/09/2019 1108 LTG Assistive Device 2 wheeled walker (FWW) at 10/09/2019 1108 LTG Distance (feet) 100 at 10/09/2019 1108 Stair Goal Most Recent Value LTG Status new at 10/09/2019 1108 LTG [place] Level modified independent at 10/09/2019 1108 LTG [...] 1.7 Estimated Energy Needs Energy Calorie Requirements: 1913-7537(28-32 kcal/kg per 54.3 kg admit wt ) [...] Ongoing, progressing Flowsheets (Taken 10/09/2019 1024) Participants: outsole caser dietitian/nutrition services advanced practice nurse nursing pharmacy [...] clear liquid diet. lan of [facility] - Viv Santos MSW - 10/09/2019 9:44 AM PDTAttended morning rounds. Pt transferred to ICU post -op for repair of thrombosed fem-fem artery bypass. Progressing. Await PT to eval and alissa baez recommendations. Has no PCP per CM note and FS. [place] is [place] lan of [facility] Urszula Chaudhary RN - 10/09/2019 8:02 [...] 10/08/2019 2:31 PM PDT BRIEF OPERATIVE NOTE [facility] Pt. Name/Age/: Jairo Theodore 59 y.o. 1960 Med. Record Number: [id number] Date of admission: 10/03/2019 Date of Operation/Procedure: [...] disease (HCC) [I73.9] Surgeon: Magdiel Arteaga MD Construction Equipment Overhauler: Maicol Abel PA-C Anesthesia Provider(s): Anesthesiologist: Orlando Ambriz DO ENGINE LATHE SET UP OPERATOR TOOL: Som Garcia CRNA Anesthesia Type: Anesthesia type not filed in the log. Procedure(s): THROMBECTOMY / EMBOLECTOMY of fem fem bypass BILATERAL BYPASS GRAFT FEMORAL-POPLITEAL WITH 6 MM PTFE ANGIOGRAM - EXTREMITY BILATERAL (54584) Operative Findings: Thrombosed femoral to femoral artery [...] Implant Name Type Inv. Item Serial No. Karate Black Belt Lot No. LRB No. Used Action GRAFT VAS PROPATEN 6-80MM - [id number] Graft GRAFT VAS PROPATEN 6-80MM [id number] WL G SABINA - NEPTALIGO NA N/A 1 Implanted GRAFT VAS PROPATEN 6-80MM - [id number] Graft GRAFT VAS PROPATEN 6-80MM [id number] WL G ORE - WLGO NA N/A 1 Implanted Counts: Instrument, sponge, and needle counts were correct prior to closure and at the con clusion of the case. Complications: None Disposition: The patient was taken to PACU Immediate Post-Operative Condition: Stable Electronically signed by: Magdiel Arteaga MD, 10/08/2019, 2:31 PM PDT p Note - Magdiel Arteaga MD - 10/08/2019 10 :06 AM PDT [facility] OPERATIVE REPORT PATIENT NAME: Jairo Theodore AGE: [...] the femorofemoral bypass. Using 2 CV 6 [place]-Jamie sutures the 6 mm bypass was anastomos [...] astomosis was created with 2 CV 6 [place]-Jamie sutures. Prior to completing the anastomosis the [...] an antibiotic solution. Hemostasis was achieved. 7 Haitian drains were placed in both groins and [...] Magdiel Arteaga MD Vascular Surgery Dictation software, [employer], used which may contain error for similar sounding words even af ter review. Personal communication requested for any clarification. Electronically signed by: Magdiel Arteaga MD, 10/09/2019 10:06 AM PDT [facility] lan of Care - Aggie Hayden [...] Arteaga MD - 10/07/2019 7:00 PM PDT [facility] OPERATIVE REPORT PATIENT NAME: Jairo Theodore AGE: [...] vanced a wire and placed a 7 Haitian sheath. We again attempted to select out [...] femoral endarterectomy was performed w ith a [place] elevator. There was good backbleeding from the [...] common femoral endarterectomy was performed using the [place] elevator. After performing the endarterect carlyle there [...] copiously irrigated. There was good hemostasis. 7 Haitian flat [place] drains were placed in both [...] Magdiel Arteaga MD Vascular Surgery Dictation software, [employer], used which may contain error for similar sounding words even af ter review. Personal communication requested for any clarification. Electronically signed by: Magdiel Arteaga MD, 10/09/2019 9:28 AM [facility] rief Op Note - Magdiel Arteaga MD - 10/07/2019 4:30 PM PDTFormatting of this note might be different from the or iginal. BRIEF OPERATIVE NOTE [facility] Pt. Name/Age/: Jairo Theodore 59 y.o. 1960 Med. Record Number: [id number] Date of admission: 10/03/2019 Date of Operation/Procedure: 10/07/2019 Preoperative Diagnosis: 1. Large right groin pseudoaneurysm 2. Peripheral arterial disease Postoperative Diagnosis: * Pseudoaneurysm (HCC) [I72.9] Surgeon: Magdiel Arteaga MD Construction Equipment Overhauler: Maicol Abel PA-C Anesthesia Provider(s): Anesthesiologist: Rudolph Lowery MD ENGINE LATHE SET UP OPERATOR TOOL: Neville Rush CRNA Anesthesia Type: General Procedure(s): [...] Implant Name Type Inv. Item Serial No. Karate Black Belt Lot No. LRB No. Used Action GRAFT GORE PROPATEN [id number] - [id number] Graft GRAFT GORE PROPATEN [id number] WL GORE - WLGO NA Right 1 Implanted GRAFT HEMGRD KNIT [id number] - [id number] Graft GRAFT HEMGRD KNIT [id number] [employer] SALES - MAQU [id number] Right 1 Implanted [...] VSS with one SBP in 170s recheck [id number]. Report given to preop nurse and 0600IVPB [...] Notes: Pt resides with his friend in [place]. 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 Pt scheduled for pseudoaneurysm repair on 10/04. [...] BUN 7* CREA 0.60* Estimated Energy Needs 6948-9754 kcal/day (28-32 kcal/kg per 54.3 kg admit [...] [place]KEON | | | | | | [id number] | | | | | | | | +--------+ + + + + | 02/06/ | Office | Vascular Surgery | Ricci De León DNP | | | 2019 | Visit | | [address] | | | | | | [place], [place] | | | | | | [address] | | | | | | | | | | | | Magdiel Arteaga MD | | | | | | [address] | | | | | | [place] [address] | | | | | | [place] [address] | | | | | | [phone] | | | | | | | [...] | | | | e | ([facility]) right aorto | 10/23/2019, Expires: | | | | | femoral bypass | 10/15/2020 | + +---------+--------+ + + | CBC w/ Auto | Lab | Routin | Pseudoaneurysm | Expected: | | Differential | | e | ([facility]) right aorto | 10/23/2019, Expires: | | | | | femoral bypass | 10/15/2020 | + +---------+--------+ + + | Phosphorus | Lab | Routin | Pseudoaneurysm | 1 Occurrences | | | | e | ([facility]) right aorto | starting 10/16/2019 | | [...] | | | | e | ([facility]) right aorto | 10/23/2019, Expires: | | [...] Health | Referral | e | ([facility]) right aorto | | | | | | femoral bypass | | | | | | Cellulitis of right | | | | | | foot 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 ([facility]) | | | | | | Post-operative [...] BILATERAL | | 9:22 AM | ([facility]) Peripheral | | | (51522) | | PDT | arterial disease | | | | | | ([facility]) | | + +--------+ + + + | BYPASS GRAFT | | 10/08/2019 | Pseudoaneurysm | | | FEMORAL-POPLITEAL | | 9:22 AM | ([facility]) Peripheral | | | | | PDT | arterial disease | | | | | | ([facility]) | | + +--------+ + + + [...] LABORATORY | | | | performed at [facility], [address] | | | [address], | | | | | | [place] [address] | | | | + + + + + + + + | Specimen | + + | Blood | + + + + + + + | Performing | Address | City/State/Zipcode | Phone Number | | Organization | | | | + + + + + | [facility] | [address] | [place] [address] | [phone] | + + + + + Magnesium (10/16/2019 5:11 AM PDT) + + + + + + | Component | Value | Ref Range | Performed | Pathologist | | | | | At | Signature | + + + + + + | Magnesium | 1.7Comment: Testing | 1.7 - 2.4 mg/dL | JUAN [facility] | | | | performed at [facility];[address] | | LABORATORY | | | | [address];[place] | | | | | | [address] | | | | + + + + + + + + | Specimen | + + | Blood | + + + + + + + | Performing | Address | City/State/Zipcode | Phone Number | | Organization | | | | + + + + + | [facility] | [address] | [place] [address] | [phone] | + + + + + Potassium (10/16/2019 5:11 AM PDT) + + + + + + | Component | Value | Ref Range | Performed | Pathologist | | | | | At | Signature | + + + + + + | K | 3.0 (L)Comment: Testing | 3.5 - 4.9 | [facility] | | | | performed at [facility];[address] | mmol/L | LABORATORY | | | | [address];[place] | | | | | | [address] | | | | + + + + + + + + | Specimen | + + | Blood | + + + + + + + | Performing | Address | City/State/Zipcode | Phone Number | | Organization | | | | + + + + + | [facility] | [address] | [place] [address] | [phone] | + + + + + CBC [...] LABORATORY | | | | performed at [facility], [address] | | | [address] | [address], | | | | | | [place] [address] | | | | + + + + + + + + | Specimen | + + | Blood | + + + + + + + | Performing | Address | City/State/Zipcode | Phone Number | | Organization | | | | + + + + + | [facility] | [address] | [place] [address] | [phone] | + + + + + Magnesium (10/15/2019 5:13 AM PDT) + + + + + + | Component | Value | Ref Range | Performed | Pathologist | | | | | At | Signature | + + + + + + | Magnesium | 1.9Comment: Testing | 1.7 - 2.4 mg/dL | [facility] | | | | performed at [facility];[address] | | LABORATORY | | | | [address];[place], [place] | | | | | | [address] | | | | + + + + + + + + | Specimen | + + | Blood | + + + + + + + | Performing | Address | City/State/Zipcode | Phone Number | | Organization | | | | + + + + + | [facility] | [address] | [place] [address] | [phone] | + + + + + Basic [...] | | | | | performed at [facility], [address] | | | | | | [facility], | | | | | | [place] [address] | | | | + + + + + + + + | Specimen | + + | Blood | + + + + + + + | Performing | Address | City/State/Zipcode | Phone Number | | Organization | | | | + + + + + | [facility] | [address] | [place] [address] | [phone] | + + + + + Potassium (10/14/2019 3:28 PM PDT) + + + + + + | Component | Value | Ref Range | Performed | Pathologist | | | | | At | Signature | + + + + + + | K | 3.3 (L)Comment: Testing | 3.5 - 4.9 | [facility] | | | | performed at [facility];[address] | mmol/L | LABORATORY | | | | [address];[place] | | | | | | [address] | | | | + + + + + + + + | Specimen | + + | Blood | + + + + + + + | Performing | Address | City/State/Zipcode | Phone Number | | Organization | | | | + + + + + | [facility] | [address] | [place] [address] | [phone] | + + + + + Magnesium (10/14/2019 3:28 PM PDT) + + + + + + | Component | Value | Ref Range | Performed | Pathologist | | | | | At | Signature | + + + + + + | Magnesium | 2.1Comment: Testing | 1.7 - 2.4 mg/dL | [facility] | | | | performed at [facility];[address] | | LABORATORY | | | | [address];[place], [place] | | | | | | [address] | | | | + + + + + + + + | Specimen | + + | Blood | + + + + + + + | Performing | Address | City/State/Zipcode | Phone Number | | Organization | | | | + + + + + | [facility] | [address] | [place] [address] | [phone] | + + + + + Phosphorus [...] HOSPITAL | | | | performed at [facility];[address] | | LABORATORY | | | | [address];[place], [place] | | | | | | [address] | | | | + + + + + + + + | Specimen | + + | Blood | + + + + + + + | Performing | Address | City/State/Zipcode | Phone Number | | Organization | | | | + + + + + | [facility] | [address] | [place] [address] | [phone] | + + + + + CBC [...] LABORATORY | | | | performed at [facility], [address] | | | | | [address], | | | | | | [place] [address] | | | | + + + + + + + + | Specimen | + + | Blood | + + + + + + + | Performing | Address | City/State/Zipcode | Phone Number | | Organization | | | | + + + + + | [facility] | [address] | [place] [address] | [phone] | + + + + + Magnesium [...] HOSPITAL | | | | performed at [facility];[address] | | LABORATORY | | | [address];[place] | | | | | | [address] | | | | + + + + + + + + | Specimen | + + | Blood | + + + + + + + | Performing | Address | City/State/Zipcode | Phone Number | | Organization | | | | + + + + + | [facility] | [address] | [place] [address] | [phone] | + + + + + Basic [...] | | | | | performed at [facility], [address] | | | | | | [address], | | | | | | [place] [address] | | | | + + + + + + + + | Specimen | + + | Blood | + + + + + + + | Performing | Address | City/State/Zipcode | Phone Number | | Organization | | | | + + + + + | [facility] | [address] | [place] [address] | [phone] | + + + + + Potassium (10/13/2019 11:07 AM PDT) + + + + + + | Component | Value | Ref Range | Performed | Pathologist | | | | | At | Signature | + + + + + + | K | 3.5Comment: Testing | 3.5 - 4.9 | [facility] | | | | performed at [facility];[address] | mmol/L | LABORATORY | | | | [address];[place] | | | | | | [address] | | | | + + + + + + + + | Specimen | + + | Blood | + + + + + + + | Performing | Address | City/State/Zipcode | Phone Number | | Organization | | | | + + + + + | [facility] | [address] | [place] [address] | [phone] | + + + + + Potassium (10/13/2019 4:37 AM PDT) + + + + + + | Component | Value | Ref Range | Performed | Pathologist | | | | | At | Signature | + + + + + + | K | 3.5Comment: Testing | 3.5 - 4.9 | [facility] | | | | performed at [facility];[address] | mmol/L | LABORATORY | | | | [address];[place], [place] | | | | | | [address] | | | | + + + + + + + + | Specimen | + + | Blood | + + + + + + + | Performing | Address | City/State/Zipcode | Phone Number | | Organization | | | | + + + + + | [facility] | [address] | [place] [address] | [phone] | + + + + + Magnesium (10/13/2019 4:37 AM PDT) + + + + + + | Component | Value | Ref Range | Performed | Pathologist | | | | | At | Signature | + + + + + + | Magnesium | 1.7Comment: Testing | 1.7 - 2.4 mg/dL | [facility] | | | | performed at [facility];[address] | | LABORATORY | | | | [address];[place] | | | | | | [address] | | | | + + + + + + + + | Specimen | + + | Blood | + + + + + + + | Performing | Address | City/State/Zipcode | Phone Number | | Organization | | | | + + + + + | [facility] | [address] | [place] [address] | [phone] | + + + + + Basic [...] | | | | | | MDRD IDAL traceable | | | | | | equation.Testing | | | | | | performed at [facility];[address] | | | | | | [facility];[place], [place] | | | | | | [address] | | | | + + + + + + + + | Specimen | + + | Blood | + + + + + + + | Performing | Address | City/State/Zipcode | Phone Number | | Organization | | | | + + + + + | [facility] | [address] | [place] [address] | [phone] | + + + + + Hemoglobin [...] [facility] | | | | performed at [facility];[address] | | LABORATORY | | | | [address];[place], [place] | | | | | | [address] | | | | + + + + + + + + | Specimen | + + | Blood | + + + + + + + | Performing | Address | City/State/Zipcode | Phone Number | | Organization | | | | + + + + + | [facility] | [address] | [place] [address] | [phone] | + + + + + Potassium (10/12/2019 4:28 PM PDT) + + + + + + | Component | Value | Ref Range | Performed | Pathologist | | | | | At | Signature | + + + + + + | K | 3.3 (L)Comment: Testing | 3.5 - 4.9 | [facility] | | | | performed at [facility];[address] | mmol/L | LABORATORY | | | | [address];[place] | | | | | | [address] | | | | + + + + + + + + | Specimen | + + | Blood | + + + + + + + | Performing | Address | City/State/Zipcode | Phone Number | | Organization | | | | + + + + + | [facility] | [address] | [place] [address] | [phone] | + + + + + Clostridium [...] at | | | | | | [facility];[address] [place] [address] | | | | | | [facility];[place] [address] | | | | + + + + + + + + | Specimen | + + | Stool - Stool | | specimen (specimen) | + + + + + + + | Performing | Address | City/State/Zipcode | Phone Number | | Organization | | | | + + + + + | [facility] | [address] | [place] [address] | [phone] | + + + + + Potassium (10/12/2019 11:02 AM PDT) + + + + + + | Component | Value | Ref Range | Performed | Pathologist | | | | | At | Signature | + + + + + + | K | 3.3 (L)Comment: Testing | 3.5 - 4.9 | [facility] | | | | performed at [facility];[address] | mmol/L | LABORATORY | | | | [address];[place] | | | | | | [address] | | | | + + + + + + + + | Specimen | + + | Blood | + + + + + + + | Performing | Address | City/State/Zipcode | Phone Number | | Organization | | | | + + + + + | [facility] | [address] | [place] [address] | [phone] | + + + + + Type [...] + + + | BB BAND | [id number] | | [facility] | | | | | | LABORATORY | | + + + + + + | UNIT # | [id number] | | [facility] | | | | [...] | | | RESULT | performed at [facility];[address] | | LABORATORY | | | | [address];[place] | | | | | | [address] | | | | + + + + + + | UNIT # | [id number] | | [facility] | | | | [...] | [address] | [place] [address] | [phone] | + + + + + Red [facility] | | | COMMENT | [facility];[address] | | LABORATORY | | | | [address];[place] [address] | | | | + + + + + + + + | Specimen | + + | | + + + + + + + | Performing | Address | City/State/Zipcode | Phone Number | | Organization | | | | + + + + + | [facility] | [address] | [place] [address] | [phone] | + + + + + Magnesium (10/12/2019 4:08 AM PDT) + + + + + + | Component | Value | Ref Range | Performed | Pathologist | | | | | At | Signature | + + + + + + | Magnesium | 1.9Comment: Testing | 1.7 - 2.4 mg/dL | [facility] | | | | performed at [facility] | | LABORATORY | | | | [address];[place] | | | | | | [address] | | | | + + + + + + + + | Specimen | + + | Blood | + + + + + + + | Performing | Address | City/State/Zipcode | Phone Number | | Organization | | | | + + + + + | [facility] | [address] | [place] [address] | [phone] | + + + + + Comprehensive [...] | | | | | performed at [facility];[address] | | | | | | [address] [facility];[place], [place] | | | | | | [address] | | | | + + + + + + + + | Specimen | + + | Blood | + + + + + + + | Performing | Address | City/State/Zipcode | Phone Number | | Organization | | | | + + + + + | [facility] | [address] | [place] [address] | [phone] | + + + + + CBC [...] | [facility] | | | | NURSING [id number] H | g/dL | LABORATORY | | [...] | [facility] | | | | NURSING [id number] | | LABORATORY | | | | [...] LABORATORY | | | | performed at [facility] | | | | | | [address];[place], [place] | | | | | | [address] | | | | + + + + + + + + | Specimen | + + | Blood | + + + + + + + | Performing | Address | City/State/Zipcode | Phone Number | | Organization | | | | + + + + + | [facility] | [address] | [place] [address] | [phone] | + + + + + Urinalysis [...] - 1.030 | [facility] | | | [place], | | | LABORATORY | | | [...] LABORATORY | | | | [address], [address] [facility] | | | | | | [place] | | | | | | [address] | | | | + + + [...] | [facility] | [address] | [place] [address] | [phone] | + + + + + Osmolality, [...] mOsm/kg | LABORATORY | | | | [address], | | | | | | [place] [address] | | | | + + + [...] | [facility] | [address] | [place] [address] | [phone] | + + + + + Culture, [...] | [facility] | | | Requests | [facility] [address] | | LABORATORY | | | | Blvd;[place] [address] | | | | + + + + + + | RESULT | NO GROWTH 6 DAYS | | [facility] | | | | | | LABORATORY | | + + + + + + | RESULT | Testing performed at | | [facility] | | | | TCL, [address] | | LABORATORY | | | | [place] | | | | | | [address]Xicdjyr: Testing | | | | | | performed at [facility], [address] | | | | | | [address] [facility] [place], [place] | | | | | | [address] | | | | + + + [...] [facility] | [address] | [place] [address] | [phone] | + + + + + XR [...] Procedure Note | + + | Espinoza, [id number] - 10/11/2019 10:42 AM PDT | | [...] | | LABORATORY | | | | Blvd;[place] [address] | | | | + + + + + + | RESULT | NO GROWTH 6 DAYS | | [facility] | | | | | | LABORATORY | | + + + + + + | RESULT | Testing performed at | | [facility] | | | | TCL, [address] | | LABORATORY | | | | [place] | | | | | | [address]Nwamxnj: Testing | | | | | | performed at [facility], [address] | | | | | | [address] [place] | | | | | | [address] | | | | + + + [...] | [facility] | [address] | [place] [address] | [phone] | + + + + + Sodium (10/11/2019 9:30 AM PDT) + + + + + + | Component | Value | Ref Range | Performed | Pathologist | | | | | At | Signature | + + + + + + | Na | 127 (L)Comment: Testing | 135 - 145 | [facility] | | | | performed at [facility];[address] | mmol/L | LABORATORY | | | | [address];[place] | | | | | | [address] | | | | + + + + + + + + | Specimen | + + | Blood | + + + + + + + | Performing | Address | City/State/Zipcode | Phone Number | | Organization | | | | + + + + + | [facility] | [address] | [place] [address] | [phone] | + + + + + Osmolality, [...] [place], | | | | | | [place] [address] | | | | + + + + + + + + | Specimen | + + | Blood | + + + + + + + | Performing | Address | City/State/Zipcode | Phone Number | | Organization | | | | + + + + + | [facility] | [address] | [place] [address] | [phone] | + + + + + Comprehensive [...] | | | | | performed at [facility];[address] | | | | | | [facility];[place], [place] | | | | | | [address] | | | | + + + + + + + + | Specimen | + + | Blood | + + + + + + + | Performing | Address | City/State/Zipcode | Phone Number | | Organization | | | | + + + + + | [facility] | [address] | [place] [address] | [phone] | + + + + + CBC [...] LABORATORY | | | | performed at [facility];[address] | | | | | | [address];[place] | | | | | | [address] | | | | + + + + + + + + | Specimen | + + | Blood | + + + + + + + | Performing | Address | City/State/Zipcode | Phone Number | | Organization | | | | + + + + + | [facility] | [address] | [place] [address] | [phone] | + + + + + Comprehensive [...] | | | | | performed at [facility];[address] | | | | | | [address];[place] | | | | | | [address] | | | | + + + + + + + + | Specimen | + + | Blood | + + + + + + + | Performing | Address | City/State/Zipcode | Phone Number | | Organization | | | | + + + + + | [facility] | [address] | [place] [address] | [phone] | + + + + + Magnesium (10/10/2019 4:16 AM PDT) + + + + + + | Component | Value | Ref Range | Performed | Pathologist | | | | | At | Signature | + + + + + + | Magnesium | 1.8Comment: Testing | 1.7 - 2.4 mg/dL | [facility] | | | | performed at [facility];[address] | | LABORATORY | | | | [address];[place] | | | | | | [address] | | | | + + + + + + + + | Specimen | + + | Blood | + + + + + + + | Performing | Address | City/State/Zipcode | Phone Number | | Organization | | | | + + + + + | [facility] | [address] | [place] [address] | [phone] | + + + + + CBC [...] 0.05Comment: Testing | 0.00 - 0.10 | [facility] | | | Absolute | performed at [facility];[address] | K/uL | LABORATORY | | | | [address];[place], [place] | | | | | | [address] | | | | + + + + + + + + | Specimen | + + | Blood | + + + + + + + | Performing | Address | City/State/Zipcode | Phone Number | | Organization | | | | + + + + + | [facility] | [address] | [place] [address] | [phone] | + + + + + Lactic Acid (10/09/2019 5:12 AM PDT) + + + + + + | Component | Value | Ref Range | Performed | Pathologist | | | | | At | Signature | + + + + + + | Lactate, | 1.8Comment: Testing | 0.4 - 2.0 | [facility] | | | Serum | performed at [facility];888 | mmol/L | LABORATORY | | | | [address];[place], [place] | | | | | | [address] | | | | + + + + + + + + | Specimen | + + | Blood | + + + + + + + | Performing | Address | City/State/Zipcode | Phone Number | | Organization | | | | + + + + + | [facility] | [address] | [place] [address] | [phone] | + + + + + Comprehensive [...] | | | | | | MDRD [facility] traceable | | | | | | equation.Testing | | | | | | performed at [facility];[address] | | | | | | [facility];[place], [place] | | | | | | [address] | | | | + + + + + + + + | Specimen | + + | Blood | + + + + + + + | Performing | Address | City/State/Zipcode | Phone Number | | Organization | | | | + + + + + | [facility] | [address] [facility] | [place] [address] | [phone] | + + + + + Procalcitonin [...] | | | | | | at [facility];[address] [place] [address] | | | | | | [facility];[place] [address] | | | | + + + + + + + + | Specimen | + + | Blood | + + + + + + + | Performing | Address | City/State/Zipcode | Phone Number | | Organization | | | | + + + + + | [facility] | [address] | [place] [address] | [phone] | + + + + + Phosphorus (10/09/2019 5:10 AM PDT) + + + + + + | Component | Value | Ref Range | Performed | Pathologist | | | | | At | Signature | + + + + + + | Phosphorus | 4.0Comment: Testing | 2.3 - 4.8 mg/dL | [facility] | | | | performed at [facility];[address] | | LABORATORY | | | | [address];[place] | | | | | | [address] | | | | + + + + + + + + | Specimen | + + | Blood | + + + + + + + | Performing | Address | City/State/Zipcode | Phone Number | | Organization | | | | + + + + + | [facility] | [address] | [place] [address] | [phone] | + + + + + Magnesium (10/09/2019 5:10 AM PDT) + + + + + + | Component | Value | Ref Range | Performed | Pathologist | | | | | At | Signature | + + + + + + | Magnesium | 1.7Comment: Testing | 1.7 - 2.4 mg/dL | [facility] | | | | performed at [facility];[address] | | LABORATORY | | | | [address];[place] | | | | | | [address] | | | | + + + + + + + + | Specimen | + + | Blood | + + + + + + + | Performing | Address | City/State/Zipcode | Phone Number | | Organization | | | | + + + + + | [facility] | [address] | [place] [address] | [phone] | + + + + + CBC [...] | | | | | performed at [facility];[address] | | | | | | [facility] | | | | | | [address] | | | | + + + + + + + + | Specimen | + + | Blood | + + + + + + + | Performing | Address | City/State/Zipcode | Phone Number | | Organization | | | | + + + + + | [facility] | [address] | [place] [address] | [phone] | + + + + + POC [...] | | | POC | performed at [facility];[address] | | LABORATORY | | | | [address];[place], [place] | | | | | | [address] | | | | + + + + + + + + | Specimen | + + | | + + + + + + + | Performing | Address | City/State/Zipcode | Phone Number | | Organization | | | | + + + + + | [facility] | [address] | [place] [address] | [phone] | + + + + + Phosphorus (10/08/2019 5:23 PM PDT) + + + + + + | Component | Value | Ref Range | Performed | Pathologist | | | | | At | Signature | + + + + + + | Phosphorus | 3.4Comment: Testing | 2.3 - 4.8 mg/dL | [facility] | | | | performed at [facility];[address] | | LABORATORY | | | | [address];[place], [place] | | | | | | [address] | | | | + + + + + + + + | Specimen | + + | Blood | + + + + + + + | Performing | Address | City/State/Zipcode | Phone Number | | Organization | | | | + + + + + | [facility] | [address] [facility] [facility] [address] | [place] [address] | [phone] | + + + + + Magnesium (10/08/2019 5:23 PM PDT) + + + + + + | Component | Value | Ref Range | Performed | Pathologist | | | | | At | Signature | + + + + + + | Magnesium | 1.8Comment: Testing | 1.7 - 2.4 mg/dL | KT | | | | performed at [facility];[address] | | LABORATORY | | | | [address];[place] | | | | | | [address] | | | | + + + + + + + + | Specimen | + + | Blood | + + + + + + + | Performing | Address | City/State/Zipcode | Phone Number | | Organization | | | | + + + + + | [facility] | [address] | [place] [address] | [phone] | + + + + + CBC [...] at | | | | | | [facility];[address];[place] [address] | | | | + + + + + + + + | Specimen | + + | Blood | + + + + + + + | Performing | Address | City/State/Zipcode | Phone Number | | Organization | | | | + + + + + | [facility] | [address] | [place] [address] | [phone] | + + + + + Basic [...] | | | | | performed at [facility];[address] | | | | | | [facility];[place], [place] | | | | | | [address] | | | | + + + + + + + + | Specimen | + + | Blood | + + + + + + + | Performing | Address | City/State/Zipcode | Phone Number | | Organization | | | | + + + + + | [facility] | [address] | [place] [address] | [phone] | + + + + + PTT (10/08/2019 5:23 PM PDT) + + + + + + | Component | Value | Ref Range | Performed | Pathologist | | | | | At | Signature | + + + + + + | PTT | 32Comment: Testing | 23 - 32 seconds | KT | | | | performed at [facility];[address] | | LABORATORY | | | | [address];[place], [place] | | | | | | [address] | | | | + + + + + + + + | Specimen | + + | Blood | + + + + + + + | Performing | Address | City/State/Zipcode | Phone Number | | Organization | | | | + + + + + | [facility] | [address] | [place] [address] | [phone] | + + + + + POC [...] | | | POC | performed at [facility];888 | g/dL | LABORATORY | | | | [address];[place], [place] | | | | | | [address] | | | | + + + + + + + + | Specimen | + + | | + + + + + + + | Performing | Address | City/State/Zipcode | Phone Number | | Organization | | | | + + + + + | [facility] | [address] | [place] [address] | [phone] | + + + + + POC ISTAT, CG8, Arterial (10/08/2019 1:22 PM PDT) + + + + + + | Component | Value | Ref Range | Performed | Pathologist | | | | | At | Signature | + + + + + + | pH, | 7.334 (L) | 7.350 - 7.450 | [facility] [...] | | | POC | performed at [facility];888 | g/dL | LABORATORY | | | | [address];[place] | | | | | | [address] | | | | + + + + + + + + | Specimen | + + | | + + + + + + + | Performing | Address | City/State/Zipcode | Phone Number | | Organization | | | | + + + + + | [facility] | [address] | [place] [address] | [phone] | + + + + + Basic [...] 7.2 (L) | 8.5 - 10.5 | [facility] | | | | | mg/dL [...] | | | | | performed at [facility], [address] | | | | | | [facility], | | | | | | [place] [address] | | | | + + + + + + + + | Specimen | + + | Blood | + + + + + + + | Performing | Address | City/State/Zipcode | Phone Number | | Organization | | | | + + + + + | [facility] | [address] | [place] [address] | [phone] | + + + + + CBC [...] | | | Absolute | performed at [facility], [address] | K/uL | LABORATORY | | | | [place], | | | | | | [place] [address] | | | | + + + + + + + + | Specimen | + + | Blood | + + + + + + + | Performing | Address | City/State/Zipcode | Phone Number | | Organization | | | | + + + + + | [facility] | [address] | [place] [address] | [phone] | + + + + + Magnesium [...] HOSPITAL | | | | performed at [facility];[address] | | LABORATORY | | | | [address];[place] | | | | | | [address] | | | | + + + + + + + + | Specimen | + + | Blood | + + + + + + + | Performing | Address | City/State/Zipcode | Phone Number | | Organization | | | | + + + + + | [facility] | [address] | [place] [address] | [phone] | + + + + + PTT (10/07/2019 5:21 PM PDT) + + + + + + | Component | Value | Ref Range | Performed | Pathologist | | | | | At | Signature | + + + + + + | PTT | 28Comment: Testing | 23 - 32 seconds | KT | | | | performed at [facility];[address] | | LABORATORY | | | | [address];[place] | | | | | | [address] | | | | + + + + + + + + | Specimen | + + | Blood - Artery, | | Radial, Right | + + + + + + + | Performing | Address | City/State/Zipcode | Phone Number | | Organization | | | | + + + + + | [facility] | [address] | [place] [address] | [phone] | + + + + + Protime [...] | | | | | performed at [facility] | | | | | | [facility];[place], [place] | | | | | | [address] | | | | + + + + + + + + | Specimen | + + | Blood - Artery, | | Radial, Right | + + + + + + + | Performing | Address | City/State/Zipcode | Phone Number | | Organization | | | | + + + + + | [facility] | [address] | [place] [address] | [phone] | + + + + + Basic [...] 7.0 (L) | 8.5 - 10.5 | [facility] | | | | | mg/dL [...] | | | | | performed at [facility];[address] | | | | | | [facility];[place], [place] | | | | | | [address] | | | | + + + + + + + + | Specimen | + + | Blood - Artery, | | Radial, Right | + + + + + + + | Performing | Address | City/State/Zipcode | Phone Number | | Organization | | | | + + + + + | [facility] | [address] | [place] [address] | [phone] | + + + + + CBC [...] LABORATORY | | | | performed at [facility];[address] | | | | | | [address];[place] | | | | | | [address] | | | | + + + [...] | [facility] | [address] | [place] [address] | [phone] | + + + + + Surgical [...] | including foreign body giant cell reaction. AMB:[facility]:C2NR MICROSCOPIC | | | EXAMINATION:Histologic sections [...] attached red-white | | | fibromembranous tissue. Preflight Mechanic sections are submitted in | | | [...] | LABORATORY:The technical component was performed by [facility] | | | [facility], [address] [place] [address] (Molding Cutter: | | | Asia Rodriguez MD; CLIA# [id number]).Professional interpretation was | | | performed by [facility], [address] | | | [place] [address] (Molding Cutter: Solitario | | | Jacky Recio; CLIA#: [id number]). Diagnostician: Asia Rodriguez | | | MDPathologistElectronically Signed 10/10/2019 | | | | | |PERFORMING LABORATORY: | | |The technical component was performed by [facility], [address] [place] [address] (Molding Cutter: Asia Rodriguez MD; CLIA# [id number]). | | |Professional interpretation was [facility], [address] [place] [address] (Molding Cutter: Solitario Recio M.D.; CLIA#: [id number]). | | | | | |Diagnostician: Asia [...] | | | POC | performed at [facility];[address] | g/dL | LABORATORY | | | | [address];[place] | | | | | | [address] | | | | + + + + + + + + | Specimen | + + | | + + + + + + + | Performing | Address | City/State/Zipcode | Phone Number | | Organization | | | | + + + + + | [facility] | [address] | [place] [address] | [phone] | + + + + + Red [...] | [facility] | | | COMMENT | [facility];[address] | | LABORATORY | | | | [address];[place] [address] | | | | + + + + + + + + | Specimen | + + | | + + + + + + + | Performing | Address | City/State/Zipcode | Phone Number | | Organization | | | | + + + + + | [facility] | [address] | [place] [address] | [phone] | + + + + + POC [...] | | | POC | performed at [facility];[address] | g/dL | LABORATORY | | | | [address];[place], [place] | | | | | | [address] | | | | + + + + + + + + | Specimen | + + | | + + + + + + + | Performing | Address | City/State/Zipcode | Phone Number | | Organization | | | | + + + + + | [facility] | [address] | [place] [address] | [phone] | + + + + + POC [...] | | | POC | performed at [facility];888 | g/dL | LABORATORY | | | | [address];[place] | | | | | | [address] | | | | + + + + + + + + | Specimen | + + | | + + + + + + + | Performing | Address | City/State/Zipcode | Phone Number | | Organization | | | | + + + + + | [facility] | [address] | [place] [address] | [phone] | + + + + + POC [...] | | | POC | performed at [facility];888 | g/dL | LABORATORY | | | | [address];[place], [place] | | | | | | [address] | | | | + + + + + + + + | Specimen | + + | | + + + + + + + | Performing | Address | City/State/Zipcode | Phone Number | | Organization | | | | + + + + + | [facility] | [address] | [place] [address] | [phone] | + + + + + Red [...] | [facility] | | | COMMENT | [facility];[address] | LABORATORY | | | | [address];[place] [address] | | | | + + + + + + + + | Specimen | + + | | + + + + + + + | Performing | Address | City/State/Zipcode | Phone Number | | Organization | | | | + + + + + | [facility] | [address] | [place] [address] | [phone] | + + + + + Magnesium [...] HOSPITAL | | | | performed at [facility];[address] | | LABORATORY | | | | [address];[place] | | | | | | [address] | | | | + + + + + + + + | Specimen | + + | Blood | + + + + + + + | Performing | Address | City/State/Zipcode | Phone Number | | Organization | | | | + + + + + | [facility] | [address] | [place] [address] | [phone] | + + + + + Type [...] + + + | BB BAND | VICE PRESIDENT AND PORTFOLIO MANAGER 0630 | | [facility] | | | | | | LABORATORY | | + + + + + + | UNIT # | [id number] | | [facility] | | | | [...] + + + | UNIT # | [id number] | | [facility] | | | | [...] + + + | UNIT # | [id number] | | [facility] | | | | [...] + + + | UNIT # | [id number] | | [facility] | | | | [...] | | | RESULT | performed at [facility];[address] | | LABORATORY | | | | [address];[place] | | | | | | [address] | | | | + + + + + + + + | Specimen | + + | Blood | + + + + + + + | Performing | Address | City/State/Zipcode | Phone Number | | Organization | | | | + + + + + | [facility] | [address] | [place] [address] | [phone] | + + + + + Basic [...] | | | | | | MDRD IDAL traceable | | | | | | equation.Testing | | | | | | performed at [facility] | | | | | | [facility];[place], [place] | | | | | | [address] | | | | + + + + + + + + | Specimen | + + | Blood | + + + + + + + | Performing | Address | City/State/Zipcode | Phone Number | | Organization | | | | + + + + + | [facility] | [address] | [place] [address] | [phone] | + + + + + CBC [...] | | | Absolute | performed at [facility];[address] | K/uL | LABORATORY | | | | [address];[place], [place] | | | | | | [address] | | | | + + + + + + + + | Specimen | + + | Blood | + + + + + + + | Performing | Address | City/State/Zipcode | Phone Number | | Organization | | | | + + + + + | [facility] | [address] | [place] [address] | [phone] | + + + + + Magnesium [...] HOSPITAL | | | | performed at [facility];[address] | | LABORATORY | | | | [address];[place], [place] | | | | | | [address] | | | | + + + + + + + + | Specimen | + + | Blood | + + + + + + + | Performing | Address | City/State/Zipcode | Phone Number | | Organization | | | | + + + + + | [facility] | [address] | [place] [address] | [phone] | + + + + + Basic [...] | | | | | performed at [facility], [address] | | | | | | [facility], | | | | | | [place] [address] | | | | + + + + + + + + | Specimen | + + | Blood | + + + + + + + | Performing | Address | City/State/Zipcode | Phone Number | | Organization | | | | + + + + + | [facility] | [address] | [place] [address] | [phone] | + + + + + CBC [...] | | | Absolute | performed at [facility], [address] | K/uL | LABORATORY | | | | [address], | | | | | | [place] [address] | | | | + + + + + + + + | Specimen | + + | Blood | + + + + + + + | Performing | Address | City/State/Zipcode | Phone Number | | Organization | | | | + + + + + | [facility] | [address] | [place] [address] | [phone] | + + + + + Magnesium (10/05/2019 5:02 AM PDT) + + + + + + | Component | Value | Ref Range | Performed | Pathologist | | | | | At | Signature | + + + + + + | Magnesium | 1.7Comment: Testing | 1.7 - 2.4 mg/dL | KT | | | | performed at [facility];[address] | | LABORATORY | | | | [address];[place] | | | | | | [address] | | | | + + + + + + + + | Specimen | + + | Blood | + + + + + + + | Performing | Address | City/State/Zipcode | Phone Number | | Organization | | | | + + + + + | [facility] | [address] | [place] [address] | [phone] | + + + + + Basic [...] | | | | | performed at [facility], [address] | | | | | | [facility], | | | | | | [place] [address] | | | | + + + + + + + + | Specimen | + + | Blood | + + + + + + + | Performing | Address | City/State/Zipcode | Phone Number | | Organization | | | | + + + + + | [facility] | [address] | [place] [address] | [phone] | + + + + + CBC [...] | | | | | [place] [address] | | | | + + + + + + + + | Specimen | + + | Blood | + + + + + + + | Performing | Address | City/State/Zipcode | Phone Number | | Organization | | | | + + + + + | [facility] | [address] | [place] [address] | [phone] | + + + + + ECHO [...] | Procedure Note | + + | [facility], [id number] - 10/04/2019 12:10 PM PDT | | [...] [facility] | | | | performed at [facility];[address] | | LABORATORY | | | | [address];[place] | | | | | | [address] | | | | + + + [...] | [facility] | [address] | [place] [address] | [phone] | + + + + + Zeinabime [...] | | | | | performed at [facility] | | | | | | [facility];[place], [place] | | | | | | [address] | | | | + + + + + + + + | Specimen | + + | Blood | + + + + + + + | Performing | Address | City/State/Zipcode | Phone Number | | Organization | | | | + + + + + | [facility] | [address] | [place] [address] | [phone] | + + + + + Uric [...] | | | | | [place] [address] | | | | + + + + + + + + | Specimen | + + | Blood | + + + + + + + | Performing | Address | City/State/Zipcode | Phone Number | | Organization | | | | + + + + + | [facility] | [address] | [place] [address] | [phone] | + + + + + Lipid [...] | | | Calculated | performed at [facility], [address] | | LABORATORY | | | | [address], | | | | | | [place] [address] | | | | + + + + + + + + | Specimen | + + | Blood | + + + + + + + | Performing | Address | City/State/Zipcode | Phone Number | | Organization | | | | + + + + + | [facility] | [address] | [place] [address] | [phone] | + + + + + Comprehensive [...] | | | | | performed at [facility], [address] | | | | | | [facility], | | | | | | [place] [address] | | | | + + + + + + + + | Specimen | + + | Blood | + + + + + + + | Performing | Address | City/State/Zipcode | Phone Number | | Organization | | | | + + + + + | [facility] | [address] | [place] [address] | [phone] | + + + + + CBC [...] | | | Absolute | performed at [facility], [address] | K/uL | LABORATORY | | | | [address], | | | | | | [place] [address] | | | | + + + + + + + + | Specimen | + + | Blood | + + + + + + + | Performing | Address | City/State/Zipcode | Phone Number | | Organization | | | | + + + + + | [facility] | [address] | [place] [address] | [phone] | + + + + + Coronavirus (COVID-19) NAAT (10/04/2019 12:49 AM PDT) + + + + + + | Component | Value | Ref Range | Performed | Pathologist | | | | | At | Signature | + + + + + + | SARS-CoV-2, | NEGATIVEComment: This | NEG | [facility] | | | NAAT | test [...] | | | | | performed at [facility];[address] | | | | | | [address];[place], [place] | | | | | | [address] | | | | + + + [...] | [facility] | [address] | [place] [address] | [phone] | + + + + + ECG [...] | | | | XIANG HART MD ([id number]) | | | | | | on [...] | | [facility] | | | | [facility];[address] | LABORATORY | | | | [address];[place] [address] | | | | + + + + + + + + | Specimen | + + | Blood | + + + + + + + | Performing | Address | City/State/Zipcode | Phone Number | | Organization | | | | + + + + + | [facility] | [address] | [place] [address] | [phone] | + + + + + Comprehensive [...] | | | | | performed at [facility] | | | | | | [facility];[place], [place] | | | | | | [address] | | | | + + + + + + + + | Specimen | + + | Blood | + + + + + + + | Performing | Address | City/State/Zipcode | Phone Number | | Organization | | | | + + + + + | [facility] | [address] | [place] [address] | [phone] | + + + + + CBC [...] | | | Absolute | performed at [facility];[address] | K/uL | LABORATORY | | | | [address];[place], [place] | | | | | | [address] | | | | + + + + + + + + | Specimen | + + | Blood | + + + + + + + | Performing | Address | City/State/Zipcode | Phone Number | | Organization | | | | + + + + + | [facility] | [address] | [place] [address] | [phone] | + + + + + documented [...] | | | | | | Starting [facility] 10/12/19 at 1744 | | | [...] PRN, Hemorrhoidal | | | Pain, Starting [facility] 10/05/19 at 1227 | | + [...]
--- OUTSIDE RECORDS SUMMARY | ~2019-11-18 | XMS | Encounter Summary ---
Demographics + + + | Address | [address] | | | [place] [address] | + + + | Home Phone [...] Team Providers + +------+ + | Care Dial Polisher Name | Role | Phone | + +------+ + | No, Physician | PCP | Unavailable | + +------+ + Encounter Details +--------+ + + + + | Date | Type | Department | Care Team | Description | +--------+ + + + + | 10/06/ | Anesthesia | [facility] | Rudolph Lowery | | | 2020 | Event | [facility] | MD Ketan [address] | | | | | [address] | [address] | | | | | [address] | [place] [address] | | | | | [place], [place] | [phone] | | | | | [address] | | | | | | [phone] | Hossein Gregorio, Taisha, | | | | | | LIVESTOCK BROKER [address] [facility] | | | | | | [place] [address] | | | | | | [phone] | | | | | | | [...] EVALUATION Jairo Covarrubiases 59 y.o. male 1960 [id number] Procedure(s): REPAIR PSEUDOANEURYSM- FEMORAL (Right ) Medical,anesthesia, [...] who presents as a tra nsfer from [facility] ED for pseudoaneurysm of the right [...] | | 2019 | | | [address] | | | | | | [place] | | | | | | [address] | | | | | | | | +--------+ + + + + | 02/06/ | Office | Vascular Surgery | Ricci De León DNP | | 2019 | Visit | | [address] | | | | | | [place] | | | | | | [address] | | | | | | | | | | | | Magdiel Arteaga MD | | | | | | [address] | | | | | | [place] [facility] | | | | | | [place] [address] | | | | | | [phone] | | | | | | | | +--------+ + + + + documented as of this encounter Visit Diagnoses Not on filedocumented in this encounter"
--- OUTSIDE RECORDS SUMMARY | ~2019-11-18 | XMS | Encounter Summary ---
Demographics + + + | Address | [address] | | | [place] [address] | + + + | Home Phone | | + + + | Preferred Language | Unknown | + + + | Marital Status | Single | + + + | Gnosticist Affiliation | BAP | + + + | Race | White | + + + | Ethnic Group | Not or | + + + Author + + + | Author | [facility] [employer] [facility] | + + + | Organization | [facility] | + + + | Address | Unknown | + + + | Phone | Unavailable | + + + Support + + +---------+ + | Name | Relationship | Address | Phone | + + +---------+ + | Lele Conley | ECON | Unknown | | + + +---------+ + Care Team Providers + +------+ + | Care Senior Qualitative Researcher Name | Role | Phone | + [...] | | | | Physicians Katelyn, | [place], [place] | | | | | [address] [place] [address] | [address] | | | | | [place], [place] | [phone] | | | | | [address] | | | | | | [phone] | | | +--------+ + + + [...] Jairo know this was called to his [employer] pharm acy in [place] at [phone]. 10 :25 AM PDTTelephone Encounter - Nicolas [...]
--- OUTSIDE RECORDS SUMMARY | ~2019-11-18 | XMS | Encounter Summary ---
Demographics + + + | Address | [address] | | | [place] [address] | + + + | Home Phone | | + + + | Preferred Language | Unknown | + + + | Marital Status | Single | + + + | Scientologist Affiliation | BAP | + + + | Race | White | + + + | Ethnic Group | Not or | + + + Author + + + | Author | [facility] | + + + | Organization | [facility] [email or web address] [facility] | + + + | Address | Unknown | + + + | Phone | Unavailable | + + + Support + + +---------+ + | Name | Relationship | Address | Phone | + + +---------+ + | Lele Conley | ECON | Unknown | | + + +---------+ + Care Team Providers + +------+ + | Care Carburetor Repairer Name | Role | Phone | + +------+ + PCP | Unavailable | + +------+ + Encounter Details +--------+ + + + + | Date | Type | Department | Care Team | Description | +--------+ + + + + | 04/30/ | Respiratory | Respiratory | Nikita Holliday | | | 2007 | Therapy | Therapy [address] [facility] | [phone] | | | | | [address] | | | | | | Mailcode: [address] | | | | | | [place], [place] | | | | | | [address] | | | | | | [phone] | | | +--------+ + + + [...] Caputo, | | | | | | RAG GRADER | | | | + + + [...] [facility] | [address] | [place], [place] | | | THERAPY | [facility] | [address] | | + + + + + | [facility] | [address] | [place], [place] | | | THERAPY | [facility] | [address] | | + + + + + [...] | | THERAPY | | | | Moy, RAG GRADER | | | | + + + [...] [facility] | [address] | [place], [place] | | | THERAPY | [address] | [address] | | + + + + + | [facility] | [address] | [place], [place] | | | THERAPY | [place] | [address] | | + + + + + documented in this encounter Visit Diagnoses Not on filedocumented in this encounter"
--- OUTSIDE RECORDS SUMMARY | ~2019-11-18 | XMS | Encounter Summary ---
Demographics + + + | Address | [address] | | | [place] [address] | + + + | Home Phone [...] Author + + + | Author | [facility] | + + + | Organization | [facility] [facility] | + + + | Address | Unknown | + + + | Phone | Unavailable | + + + Support + + +---------+ + | Name | Relationship | Address | Phone | + + +---------+ + | Lele Conley | ECON | Unknown | | + + +---------+ + Care Team Providers + +------+ + | Care Hog Operator Name | Role | Phone | [...] + + | 11/17/ | Emergency | [facility] Emergency | Cristhian Mayer, | | | 2016 | | Department [address] | [address] [facility] | | | | | [address] | [facility] | | | | | [facility] | [place], [place] | | | | | [place], [place] | [address] | | | | | [address] | [phone] | | | | | [phone] | | | +--------+ + + + [...] per ref pt [facility] be going to [facility] MCElectronically signed by Joanna Vuong at 10:58 PM PDT[facility] Jojo Ayers - 11/16/2016 8:48 PM PDTHOLD-referring exp jorge placement elsewhere due to delays. Will call back to update if bed found elsewhere. E lectronically signed by Jojo Adams at 11/16/2016 8:48 PM PDTMcl[facility] AdamsJojo - 11/16/2016 8:[address] [...] [facility] transfer [facility]. [facility] Carlie Mejia - 11/16/2016 5:49 PM PDTConnected [...] from transferring tonight. Paged group 18. omm [place] - Carlie Mcdowell - 11/16/2016 5:[address] Easton (Colorectal). Aurora weeks signed by Carlie Lincoln at 11/16/2016 5:45 PM PDTdocumented in this encounter Plan of Treatment Not on filedocumented as of this encounter Visit Diagnoses Not on filedocumented in this encounter"
--- OUTSIDE RECORDS SUMMARY | ~2019-11-18 | XMS | Encounter Summary ---
Demographics + + + | Address | [address] | | | [place] [address] | + + + | Home Phone | | + + + | Preferred Language | Unknown | + + + | Marital Status | Single | + + + | Rastafarian Affiliation | 1009 | + + + | Race | White | + + + | Ethnic Group | Not or | + + + Author + + + | Author | [facility] | | | and [place] | + + + | Organization | [facility] | | | [...] Team Providers + +------+ + | Care Signalman Name | Role | Phone | + [...] + + | 10/06/ | Surgery | [facility] | Magdiel Arteaga MD | REPAIR | | 2019 | | [facility] | [address] | PSEUDOANEURYSM- | | | | OPERATING RO[address] | [address] | FEMORAL | | | | [address] | [place] [address] | | | | | [place], [place] | [phone] | | | | | [address] | | | | | | [phone] | | | +--------+---------+ + + + [...] GRAFT FEMORAL-POPLITEAL (Bilateral) ANGIOGRAM - EXTREMITY BILATERAL (94017) (Bilateral) Chief Complaint: No chief complaint on [...] who was admitted on 10/03/2019 Transfer from [facility] with bilateral hip and pelvic burning [...] have wound check in 2 weeks wit [facility] to provide transportation, continue with aspirin 81 mg daily, Plavix 75 mg daily, atorv astatin 40 mg daily. Active Problems: Alcohol abuse/ Tobacco abuse advised to stop smoking and drinking Cellulitis of right foot has been completely treated with Augmentin while in the hospital Discharge Information: Follow up: Teresita Bob MD [address] [facility] [address] Follow up for Home health Wound Care [facility] [address] [id number] Follow up Wound Care and Physical [...] you recover. Don t drive for at [id number] after your surgery or while you are [...] better overnight Chest pain or trouble breathing [employer] last reviewed this educational content on 11/29/201819990856-7659 [employer]. [address] [place] [address]. All righ ts reserved. This information is [...] of developing AAA decreases. To learn more Smokefree.gov/fevv-rx-it-expert National Cancer [place] Smoking Quitline:246-57T-KPMX (212-580-0573) [employer] last reviewed this educational content on 12/30/201819996516-5458 [employer]. [address] [place] [address], [place] [address]. All righ ts reserved. This information is [...] find a support program: Free national quitline 907-IKJF-PYX (827-698-9562) [facility] quit-smoking programs [employer] 330-598-7517 [employer] 565-754-2596 Support at home is important too. Family and friends can offer praise and reassurance. If t he smoker in your life finds it hard to quit, encourage them to keep trying. Try uone-mvp-hqqtewi medicine Nicotine replacement therapymay make iteasier to [...] to quit smoking, try these resources: www.cdc.gov/tobacco/quit_smoking/ 537-YGJY-ZRC (261-858-4042) www.smokefree.gov 049-29H-EYDN (526-908-7939) www.lung.org/stop-smoking/ 800-LUNGUSA (816-472-8551) Herve lynn reviewed this educational content on 01/29/201919991963-8163 [employer]. [address] [place] [address]. All righ ts reserved. This information is [...] PA- C - 10/16/2019 7:20 AM PDT [facility] Service: Vascular Surgery Progress Note Hospital Day: LOS: 13 days Post-Op Day: 11/06 SUBJECTIVE Patient Summary: The patient is a 59 y.o. male with significant past medical history of tobacco abuse, HTN, CAD, history of alcohol abuse who presented to [facility] with com plaints of cellulitis of right leg as well as enlarging pseudoaneurysm of right FURNACE UNLOADER. He unde rwent aortobifemoral bypass in 1999. [...] scan which revealed enlargement of known right FURNACE UNLOADER pseudoaneurysm. He was transferred to [facility] for evaluation and Vascular was consulted [...] importance of following up with our office [facility]. Still recommend discharge ho me with assist [...] 10/15/2019 10:30 AM PDT . Jairo Theodore [id number] Hospital Day: 12 SUBJECTIVE Events Overnight: Patient [...] right [facility] femoral [facility] 8 [facility]. Continue with [...] interaction with him, he stated that he limno s been in touch with his Merrill, Lele [phone] and he did not want me to [...] and management as well as Computerized Physician Shift Production Associate. Dictation software, [employer], used which may contain error for similar sounding words even af ter review. Portions of this chart may have been copied from previous notes for continuity of care. Mundo Pack MD, FACP, FAAP 10/15/2019 il son, Chelsi Hebert PA-C - 10/15/2019 8:47 AM PDT [facility] Service: Vascular Surgery Progress Note Hospital [...] history of alcohol abuse who presented to [facility] with com plaints of cellulitis of right leg as well as enlarging pseudoaneurysm of right FURNACE UNLOADER. He unde rwent aortobifemoral bypass in 1999. [...] scan which revealed enlargement of known right FURNACE UNLOADER pseudoaneurysm. He was transferred to [facility] for evaluation and Vascular was consulted [...] swelling. Call with any neurovascular changes. [facility]r [facility] with management of this patient. [...] - 10/14/2019 9:23 AM PDT Jairo Theodore [id number] Hospital Day: 11 SUBJECTIVE Events Overnight: Patient [...] been in touch with his Merrill, Lele [phone] and he did not want me to [...] and management as well as Computerized Physician Shift Production Associate. Dictation software, [employer], used which may contain error for similar sounding words even af ter review. Portions of this chart may have been copied from previous notes for continuity of care. Mundo Pack MD, FACP, FAAP 10/14/2019 il son, Chelsi Hebert PA-C - 10/14/2019 8:44 AM PDT [facility] Service: Vascular Surgery Progress Note Hospital [...] history of alcohol abuse who presented to [facility] with com plaints of cellulitis of right leg as well as enlarging pseudoaneurysm of right FURNACE UNLOADER. He unde rwent aortobifemoral bypass in 1999. [...] scan which revealed enlargement of known right FURNACE UNLOADER pseudoaneurysm. He was transferred to [facility] for evaluation and Vascular was consulted [...] 1.7 Estimated Energy Needs Energy Calorie Requirements: 6026-6435(28-32 kcal/kg per 54.3 kg admit wt ) [...] PA- C - 10/13/2019 10:33 AM PDT [facility] Service: Vascular Surgery Progress Note Hospital [...] history of alcohol abuse who presented to [facility] with com plaints of cellulitis of right leg as well as enlarging pseudoaneurysm of right FURNACE UNLOADER. He unde rwent aortobifemoral bypass in 1999. [...] scan which revealed enlargement of known right FURNACE UNLOADER pseudoaneurysm. He was transferred to [facility] for evaluation and Vascular was consulted [...] different from t wyatt original. Jairo Theodore [id number] Hospital Day: 10 SUBJECTIVE Events Overnight: Patient [...] right to left femoral [facility] 8 mm PTFE. Continue with [...] been in touch with his Merrill, Lele [phone] and he did not want me to [...] and management as well as Computerized Physician Shift Production Associate. Dictation software, [employer], used which may contain error for similar [...] different from the orig inal. Jairo Theodore [id number] Hospital Day: 9 SUBJECTIVE Events Overnight: Patient [...] right to left femoral to [facility] with 8 mm PTFE. Continue with [...] been in touch with his Merrill, Lele [phone] and he did not want me to [...] and management as well as Computerized Physician Shift Production Associate. Dictation software, [employer], used which may contain error for similar sounding words even af ter review. Portions of this chart may have been copied from previous notes for continuity of care. Mundo Pack MD, FACP, FAAP 10/12/2019 il son, Chelsi HebertJUICE - 10/12/2019 9:17 AM PDT [facility] Service: Vascular Surgery Progress Note Hospital [...] history of alcohol abuse who presented to [facility] with com plaints of cellulitis of right leg as well as enlarging pseudoaneurysm of right FURNACE UNLOADER. He unde rwent aortobifemoral bypass in 1999. [...] scan which revealed enlargement of known right FURNACE UNLOADER pseudoaneurysm. He was transferred to [facility] for evaluation and Vascular was consulted [...] Color, UA YELLOW Clarity, Urine CLEAR Specific [place], Urine 1.008 1.002 - 1.030 Leukocyte esterase, [...] BANK. BLOOD BANK COMMENT Testing performed at [facility];[address] [place] [address] Type and Screen Collection Time: 10/12/19 7:52 AM Result Value Ref Range ABO Rh A POSITIVE Antibody Screen NEGATIVE BB BAND [id number] BB BAND Testing performed at [facility];[address] [place] [address] UNIT # [id number] Product Code LEUKODEPLETED PC Unit Division 00 Unit Status ALLOCATED Transfusion Status OK TO TRANSFUSE CROSSMATCH RESULT COMPATIBLE UNIT # [id number] Product Code LEUKODEPLETED PC Unit Division 00 [...] to chair with feet elevated. Please call [facility] any neurovascular changes. Appreciate hospitalitis assistance with [...] from the originluis rebollar Jairo Kwaku Theodore [id number] Hospital Day: 8 SUBJECTIVE Events Overnight: Patient [...] right to left femoral to [facility] with 8 mm PTFE. Continue with [...] been in touch with his Merrill, Lele [phone] and he did not want me to [...] and management as well as Computerized Physician Shift Production Associate. Dictation software, [employer], used which may contain error for similar sounding words even af ter review. Portions of this chart may have been copied from previous notes for continuity of care. Mundo Pack MD, FACP, FAAP 10/11/2019 il son, Chelsi HebertJUICE - 10/11/2019 6:45 AM PDT [facility] Service: Vascular Surgery Progress Note Hospital [...] history of alcohol abuse who presented to [facility] with com plaints of cellulitis of right leg as well as enlarging pseudoaneurysm of right FURNACE UNLOADER. He unde rwent aortobifemoral bypass in 1999. [...] scan which revealed enlargement of known right FURNACE UNLOADER pseudoaneurysm. He was transferred to [facility] for evaluation and Vascular was consulted [...] Full Chelsi Arteaga PA-C 10/11/2019 Rachel Trinidad [facility] - 10/10/2019 11:59 AM PDTFormatting [...] PO medications. Thank You, Rachel Cifuentes, PharmD, [facility] 10/10/19 11:59 AM PDT Arlene Crum P A-C - 10/10/2019 11:36 AM PDT [facility] Service: Vascular Surgery Progress Note Hospital [...] history of alcohol abuse who presented to [facility] with com plaints of cellulitis of right leg as well as enlarging pseudoaneurysm of right FURNACE UNLOADER. He unde rwent aortobifemoral bypass in 1999. [...] scan which revealed enlargement of known right FURNACE UNLOADER pseudoaneurysm. He was transferred to [facility] for evaluation and Vascular was consulted [...] be different from the or iginal. [facility]: Clinical Field Specialist Progress Note Jairo Kwaku Theodore 59 y.o. [...] He was farnsworth sferred on 10/03/2019 from [facility] for right foot swelling and increase in [...] procedures. Tyler Elias MD 10/10/2019 Dictation software, [employer], was used which may contain error with similar sound words even after review. Portions of this chart may have been copied from previous notes for continuity of care. aniella Coleman RN - 10/09/2019 10:20 AM PDTFamily/ acute care nurse updated by pt. Chelsi Orta PA-C - 10/09/2019 7:08 AM PDT [facility] Service: Vascular Surgery Progress Note Hospital [...] history of alcohol abuse who presented to [facility] with com plaints of cellulitis of right leg as well as enlarging pseudoaneurysm of right FURNACE UNLOADER. He unde rwent aortobifemoral bypass in 1999. [...] scan which revealed enlargement of known right FURNACE UNLOADER pseudoaneurysm. He was transferred to [facility] for evaluation and Vascular was consulted [...] MD - 10/09/2019 1:28 AM PDT [facility]: Clinical Field Specialist Progress Note Jairo Theodore 59 [facility].o. Hospital [...] He was farnsworth sferred on 10/03/2019 from [facility] for right foot swelling and increase in [...] procedures. Julian Gr MD 10/09/2019 Dictation software, [employer], was used which may contain error with [...] by vascular surgery. R eport given to DELIVERY DRIVER ASSISTANT. Pt safely transferred to room 21653. Incisions and dressings were teresa an and dry. Post tib and pedal pulses dopplerable. JADA SHINE RN Chyna Rashid MD - 10/08/2019 4:07 PM PDT [facility]: Hospitalist Progress Note Hospital Day: LOS: 5 days SUBJECTIVE Patient Summary: Mr. Theodore is a 59 yr old man active smoker 1ppday with alcohol abuse, hx of PAD, s/p right aorto bifemoral bypass in 1999 complicated by pseudoaneurysm, s/p revision, was transferred from [facility] ED for right foot swelling and increasing [...] endarterectomy, right to [facility] femoral [facility]. Patient had an EBL [...] MD - 10/07/2019 3:55 PM PDT [facility]: Hospitalist Progress Note Hospital Day: LOS: 4 days SUBJECTIVE Patient Summary: Mr. Theodore is a 59 yr old man active smoker 1ppday with alcohol abuse, hx of PAD, s/p right aorto bifemoral bypass in 1999 complicated by pseudoaneurysm, s/p revision, was transferred from [facility] ED for right foot swelling and increasing [...] A POSITIVE Antibody Screen NEGATIVE BB BAND RUBBER LINER 0630 BB BAND Testing performed at [facility];[address] [place] [address];[place] [address] UNIT # [id number] Product Code LEUKODEPLETED PC Unit Division 00 Unit Status ISSUED Transfusion Status OK TO TRANSFUSE CROSSMATCH RESULT COMPATIBLE UNIT # [id number] Product Code LEUKODEPLETED PC Unit Division 00 Unit Status ISSUED Transfusion Status OK TO TRANSFUSE CROSSMATCH RESULT COMPATIBLE UNIT # [id number] Product Code LEUKODEPLETED PC Unit Division 00 Unit Status ALLOCATED Transfusion Status OK TO TRANSFUSE CROSSMATCH RESULT COMPATIBLE UNIT # [id number] Product Code LEUKODEPLETED PC Unit Division 00 Unit Status ALLOCATED Transfusion Status OK TO TRANSFUSE CROSSMATCH RESULT COMPATIBLE Red Blood Cells (PRBC) - Crossmatch and Hold Result Value Ref Range Product Code RED CELL GROUP Units ordered 2 BLOOD BANK COMMENT ORDER RECEIVED IN BLOOD BANK. BLOOD BANK COMMENT Testing performed at [facility];[address] [place] [address];[place] [address] POC ISTAT, CG8, Arterial Result Value Ref [...] BANK. BLOOD BANK COMMENT Testing performed at [facility];[address] [place] [address];[place] [address] POC ISTAT, CG8, Arterial Result Value Ref [...] Milian PA-C - 10/07/2019 7:08 AM PDT [facility] Service: Vascular Surgery Progress Note Hospital Day: LOS: 4 days Post-Op Day: * No surgery date entered * SUBJECTIVE Patient Summary: The patient is a 59 y.o. male with significant past medical history of tobacco abuse, HTN, CAD, history of alcohol abuse who presented to [facility] with com plaints of cellulitis of right leg as well as enlarging pseudoaneurysm of right FURNACE UNLOADER. He unde rwent aortobifemoral bypass in 1999. [...] scan which revealed enlargement of known right FURNACE UNLOADER pseudoaneurysm. He was transferred to [facility] for evaluation and Vascular was consulted [...] A POSITIVE Antibody Screen NEGATIVE BB BAND RUBBER LINER 0630 BB BAND Testing performed at [facility];[address] [place] [address] UNIT # [id number] Product Code LEUKODEPLETED PC Unit Division 00 Unit Status ALLOCATED Transfusion Status OK TO TRANSFUSE CROSSMATCH RESULT COMPATIBLE UNIT # [id number] Product Code LEUKODEPLETED PC Unit Division 00 Unit Status ALLOCATED Transfusion Status OK TO TRANSFUSE CROSSMATCH RESULT COMPATIBLE Red Blood Cells (PRBC) - Crossmatch and Hold Collection Time: 10/07/19 6:30 AM Result Value Ref Range Product Code RED CELL GROUP Units ordered 2 BLOOD BANK COMMENT ORDER RECEIVED IN BLOOD BANK. BLOOD BANK COMMENT Testing performed at [facility];[address] [place] [address] PROBLEM LIST Principal Problem: Pseudoaneurysm right aorto [...] MD - 10/06/2019 10:34 AM PDT [facility]: Hospitalist Progress Note Hospital Day: LOS: 3 days SUBJECTIVE Patient Summary: Mr. Theodore is a 59 yr old man active smoker 1ppday with alcohol abuse, hx of PAD, s/p right aorto bifemoral bypass in 1999 complicated by pseudoaneurysm, s/p revision, was transferred from [facility] ED for right foot swelling and increasing [...] Crum PA-C - 10/06/2019 9:32 AM PDT [facility] Service: Vascular Surgery Progress Note Hospital Day: LOS: 3 days Post-Op Day: * No surgery date entered * SUBJECTIVE Patient Summary: The patient is a 59 y.o. male with significant past medical history of tobacco abuse, HTN, CAD, history of alcohol abuse who presented to [facility] with com plaints of cellulitis of right leg as well as enlarging pseudoaneurysm of right FURNACE UNLOADER. He unde rwent aortobifemoral bypass in 1999. [...] scan which revealed enlargement of known right FURNACE UNLOADER pseudoaneurysm. He was transferred to [facility] for evaluation and Vascular was consulted [...] MD - 10/05/2019 12:14 PM PDT [facility]: Hospitalist Progress Note Hospital Day: LOS: 2 days SUBJECTIVE Patient Summary: Mr. Theodore is a 59 yr old man active smoker 1ppday with alcohol abuse, hx of PAD, s/p right aorto bifemoral bypass in 1999 complicated by pseudoaneurysm, s/p revision, was transferred from [facility] ED for right foot swelling and increasing [...] Crum PA-C - 10/05/2019 8:18 AM PDT [facility] Service: Vascular Surgery Progress Note Hospital Day: LOS: 2 days Post-Op Day: * No surgery date entered * SUBJECTIVE Patient Summary: The patient is a 59 y.o. male with significant past medical history of tobacco abuse, HTN, CAD, history of alcohol abuse who presented to [facility] with com plaints of cellulitis of right leg as well as enlarging pseudoaneurysm of right FURNACE UNLOADER. He unde rwent aortobifemoral bypass in 1999. [...] scan which revealed enlargement of known right FURNACE UNLOADER pseudoaneurysm. He was transferred to [facility] for evaluation and Vascular was consulted [...] and open repair for his enlarging right FURNACE UNLOADER pseudoaneurysm. He will need r etroperitoneal exposure [...] MD - 10/04/2019 9:15 AM PDT [facility]: Hospitalist Progress Note Hospital Day: LOS: 1 day SUBJECTIVE Patient Summary: Mr. Theodore is a 59 yr old man active smoker 1ppday with alcohol abuse, hx of PAD, s/p right aorto bifemoral bypass in 1999 complicated by pseudoaneurysm, s/p revision, was transferred from [facility] ED for right foot swelling and increasing [...] LYTY 0809 BB BAND Testing performed at [facility];[address];[place] [address] ECG 12 lead Result Value Ref Range [...] check if blood cultures were taken at [facility] Prn pain medication Pseudoaneurysm right femoral artery [...] be different from t he original. [facility]: Hospitalist Admission History & Physical Date [...] who p resents as a transfer from [facility] ED for pseudoaneurysm of the right groin [...] LYTY 0809 BB BAND Testing performed at [facility];[address] [place] [address];[place] [address] ECG 12 lead Result Value Ref Range INTERPRETATION TEXT Not Confirmed IMAGING No orders to display EKG at 2310: NSR, VR 72, Qtc 455. Data from [facility] -Ultrasound impression: 6.3 x 5.1 x 5.8 [...] delirium tremens, seizures from withdrawals or withdrawals -[facility] protocol initiated Tobacco abuse: -Quit smoking today smoke a pack of cigarettes per day -Nicotine patch Hypokalemia GI and DVT prophylaxis Code Status: Full Code Dictation software, [employer], used which may contain errors for similar [...] this note might be different from the [facility]: Clinical Field Specialist Initial Consult Note Jairo Theodore 59 y.o. [...] was transf erred 5 days ago from [facility] for right foot swelling and increase in [...] ENDARTERECTOMY FEMORAL; Surgeon: Magdiel Arteaga MD; Location: [facility] MAIN OR FEMORAL-FEMORAL BYPASS GRAFT N/A 10/07/2019 Procedure: BYPASS GRAFT FEMORAL-FEMORAL; Surgeon: Magdiel Arteaga MD; Location: [facility] MAIN OR OTHER SURGICAL HISTORY Right 10/07/2019 Procedure: REPAIR PSEUDOANEURYSM- FEMORAL; Surgeon: Magdiel Arteaga MD; Location: [facility] GABI N OR ALLERGIES Allergies Allergen Reactions [...] file Gets together: Not on file Attends pentecostalism service: Not on file Active member of [...] Order(s): PROVIDER TO PROVIDER CONSUL T [facility]: Vascular Surgery Initial Consult Note Date of Admission: 10/03/2019 Date of Consultation: 10/04/2019 Reason for Consultation: Pseudoaneurysm of right FURNACE UNLOADER Primary Care Physician: Maribel Physician on file History Obtained From: Patient, chart review Code Status: Full Code CHIEF COMPLAINT: Right foot swelling and pain; Enlarging right femoral pseudoaneurysm HISTORY OF PRESENT ILLNESS The patient is a 59 y.o. male with significant past medical history of tobacco abuse, HTN, CAD, history of alcohol abuse who presented to [facility] with complaints of cellulitis o f right leg as well as enlarging pseudoaneurysm of right FURNACE UNLOADER. He underwent aortobifemoral by pass in 1999. [...] which reveal ed enlargement of known right FURNACE UNLOADER pseudoaneurysm. He was transferred to [facility] for evaluation and Vascular was consulted [...] The patient was transferr ed to [facility] for evaluation of his enlarging pseudoaneurysm, which has been the same size for the last year he reports. [facility] but was lost to any follow up. 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 His C TA with runoff yesterday showed enlarging right femoral pseudoaneurysm. Left FURNACE UNLOADER shows no in flow but reconstitutes. The patient will require revascularization and open repair for his e nlarging right FURNACE UNLOADER pseudoaneurysm. He will need retroperitoneal exposure with [...] Current Outpt/Agency/Support Groups: yes Community Agency Name: [facility] Home Health Disciplines: RN and PT - RN for wound care Equipment Durable Medical Equipment Provider: Home Equipment at Discharge: none Equipment Used at Home: cane, straight, single point Pharmacy Pharmacy/Medication needs: Pt is going to use Rx Pharmacy and will use his Medicare Part D benefits. PANEL MAKER and Pt called [facility], got him reestablished with the [facility], has not been seen since 2018 . Pt is now assigned to Team Linda Bob. PANEL MAKER p/c with Rudolph at [facility] Bob, states they will be calling Pt for follow up appt and will send referral for outpatient wound care. PANEL MAKER p/c with Carol at [facility], states she has received [facility] in the p ast and will follow up with Dr. Bob's office. PANEL MAKER provided referral and faxed Home health referral. [...] Bed Mobility Supine to Sit, Level of Falls: modified independent Sit to Supine, Level of Falls: modified independent Safety Issues: decreased use of legs for bridging/pushing Transfers Sit-Stand, Level of Falls: supervised Stand-Sit, Level of Falls: supervised Jsu-Ezzrv-Qrr, Assistive Device: none Gait Level of Falls: supervised Assistive Device: none Distance (feet): 40 Goals Reflects last filed data and may be from multiple contributors. All Bed Mobility Goal Most Recent Value LTG Status new at 10/09/2019 1108 LTG Falls Level modified independent at 10/09/2019 1108 LTG Assistive Device none at 10/09/2019 1108 All Transfers Goal Most Recent Value LTG Status new at 10/09/2019 1108 LTG Falls Level modified independent at 10/09/2019 1108 LTG Assistive Device 2 wheeled walker (FWW) at 10/09/2019 1108 Gait Goal Most Recent Value LTG Status new at 10/09/2019 1108 LTG Falls Level modified independent at 10/09/2019 1108 LTG Assistive Device 2 wheeled walker (FWW) at 10/09/2019 1108 LTG Distance (feet) 100 at 10/09/2019 1108 Stair Goal Most Recent Value LTG Status new at 10/09/2019 1108 LTG Falls Level modified independent at 10/09/2019 1108 LTG [...] bed rails Supine to Sit, Level of Falls: modified independent Safety Issues: decreased use of legs for bridging/pushing Impairments: ROM decreased, strength decreased Transfers Sit-Stand, Level of Falls: stand by assist, verbal cues required Stand-Sit, Level of Falls: stand by assist, verbal cues required Shp-Nnjwo-Fyj, Assistive Device: 2 wheeled walker (FWW), none Toilet, Level of Falls: stand by assist, verbal cues required Toilet, Assistive Device: 2 wheeled walker (FWW), grab bars Gait Gait Comments: antalgic gait with flexed trunk posture and intermittent crouch position Level of Falls: stand by assist, verbal cues required(verbal cues [...] LTG Status new at 10/09/2019 1108 LTG Falls Level modified independent at 10/09/2019 1108 LTG Assistive Device none at 10/09/2019 1108 All Transfers Goal Most Recent Value LTG Status new at 10/09/2019 1108 LTG Falls Level modified independent at 10/09/2019 1108 LTG Assistive Device 2 wheeled walker (FWW) at 10/09/2019 1108 Gait Goal Most Recent Value LTG Status new at 10/09/2019 1108 LTG Falls Level modified independent at 10/09/2019 1108 LTG Assistive Device 2 wheeled walker (FWW) at 10/09/2019 1108 LTG Distance (feet) 100 at 10/09/2019 1108 Stair Goal Most Recent Value LTG Status new at 10/09/2019 1108 LTG Falls Level modified independent at 10/09/2019 1108 LTG [...] Bed Mobility Supine to Sit, Level of Falls: minimal assist (75% patient effort) Transfers Sit-Stand, Level of Falls: minimal assist (75% patient effort) Gait Level of Falls: minimal assist (75% patient effort) Assistive Device: [...] LTG Status new at 10/09/2019 1108 LTG Falls Level modified independent at 10/09/2019 1108 LTG Assistive Device none at 10/09/2019 1108 All Transfers Goal Most Recent Value LTG Status new at 10/09/2019 1108 LTG Falls Level modified independent at 10/09/2019 1108 LTG Assistive Device 2 wheeled walker (FWW) at 10/09/2019 1108 Gait Goal Most Recent Value LTG Status new at 10/09/2019 1108 LTG Falls Level modified independent at 10/09/2019 1108 LTG Assistive Device 2 wheeled walker (FWW) at 10/09/2019 110 LTG Distance (feet) 100 at 10/09/2019 1108 Stair Goal Most Recent Value LTG Status new at 10/09/2019 1108 LTG Falls Level modified independent at 10/09/2019 1108 LTG [...] participation. Pt with an i ncontinent BM. LOAN ORIGINATOR and PT assisting with mobility and pericare. [...] Transfers Additional Documentation: toilet Sit-Stand, Level of Falls: minimal assist (75% patient effort) Stand-Sit, Level of Falls: minimal assist (75% patient effort) Oak-Xrplk-Kpr, Assistive Device: 2 wheeled walker (FWW) Toilet, Level of Falls: minimal assist (75% patient effort) Toilet, Assistive Device: 2 wheeled walker (FWW) Safety Issues: loses balance backward, weight-shifting ability decreased, step length decre ased, sequencing ability decreased, balance decreased during turns Impairments: ROM decreased, strength decreased, impaired balance Gait Gait Comments: reduced step length BLE, excessive trunk flexion, reduced weight bearing RLE , avoidance COG over HAN Level of Falls: minimal assist (75% patient effort) Assistive Device: 2 wheeled walker (FWW) Distance (feet): 15x2 Goals Reflects last filed data and may be from multiple contributors. All Bed Mobility Goal Most Recent Value LTG Status new at 10/09/2019 1108 LTG Falls Level modified independent at 10/09/2019 1108 LTG Assistive Device none at 10/09/2019 1108 All Transfers Goal Most Recent Value LTG Status new at 10/09/2019 1108 LTG Falls Level modified independent at 10/09/2019 1108 LTG Assistive Device 2 wheeled walker (FWW) at 10/09/2019 1108 Gait Goal Most Recent Value LTG Status new at 10/09/2019 1108 LTG Falls Level modified independent at 10/09/2019 1108 LTG Assistive Device 2 wheeled walker (FWW) at 10/09/2019 1108 LTG Distance (feet) 100 at 10/09/2019 1108 Stair Goal Most Recent Value LTG Status new at 10/09/2019 1108 LTG Falls Level modified independent at 10/09/2019 1108 LTG [...] Recommendations: 2 wheeled walker (FWW), shower chair, breastfeeding peer counselor, sock aide, long handled sponge, long handled [...] bed rails Supine to Sit, Level of Falls: minimal assist (75% patient effort) Sit to Supine, Level of Falls: moderate assist (50% patient effort) Safety Issues: decreased use of legs for bridging/pushing, decreased use of arms for pushin g/pulling Impairments: ROM decreased, strength decreased, postural control impaired, pain Transfers Additional Documentation: sit to/from stand Sit-Stand, Level of Falls: minimal assist (75% patient effort) Stand-Sit, Level of Falls: maximal assist (25% patient effort) Mwh-Kahic-Hvp, Assistive Device: 2 wheeled walker (FWW), gait belt Safety Issues: loses balance backward, weight-shifting ability decreased, step length decre ased, sequencing ability decreased, balance decreased during turns Impairments: ROM decreased, strength decreased, impaired balance ROM Comments: WFL Strength Comments: WFL. B multiple wire sawyer strength 4/5. B UE MMT 4/5 except for biceps 3+/5 Balance Sitting Balance: Static: good balance Sitting Balance: Dynamic: good balance Standing Balance: Static: poor balance Standing Balance: Dynamic: poor balance Goals Reflects last filed data and may be from multiple contributors. LB Dressing Goal Most Recent Value LTG Status new at 10/10/2019 1545 LTG Falls Level minimum assist (75% patient effort), set up required at 10/10/2019 1545 LTG Adaptive Equipment breastfeeding peer counselor, sock-aid at 10/10/2019 1545 Toilet Transfer Goal Most Recent Value LTG Status new at 10/10/2019 1545 LTG Falls Level minimum assist (75% patient effort) at [...] PDT lan of [facility] - Ramone, Mundo Pwoell MD - 10/10/2019 12:04 PM PDTPatient seen and examined briefly as day progress note has been made, at bedside in ICU on turnover by banquet line cook. Patient stat es he feels better, no [...] bed rails Supine to Sit, Level of Falls: minimal assist (75% patient effort) Transfers Bed-Chair, Level of Falls: minimal assist (75% patient effort) And-Zfysz-Tsi, Assistive Device: 2 wheeled walker (FWW), gait belt Sit-Stand, Level of Falls: minimal assist (75% patient effort), stand by assist Stand-Sit, Level of Falls: minimal assist (75% patient effort), stand by assist Gait Gait Comments: reduced step length BLE, excessive trunk flexion, reduced weight bearing RLE , avoidance COG over HAN Level of Falls: minimal assist (75% patient effort), verbal cues [...] LTG Status new at 10/09/2019 1108 LTG Falls Level modified independent at 10/09/2019 1108 LTG Assistive Device none at 10/09/2019 1108 All Transfers Goal Most Recent Value LTG Status new at 10/09/2019 1108 LTG Falls Level modified independent at 10/09/2019 1108 LTG Assistive Device 2 wheeled walker (FWW) at 10/09/2019 1108 Gait Goal Most Recent Value LTG Status new at 10/09/2019 1108 LTG Falls Level modified independent at 10/09/2019 1108 LTG Assistive Device 2 wheeled walker (FWW) at 10/09/2019 1108 LTG Distance (feet) 100 at 10/09/2019 1108 Stair Goal Most Recent Value LTG Status new at 10/09/2019 1108 LTG Falls Level modified independent at 10/09/2019 1108 LTG [...] Family Contact Information: Name: Lele Conley (Roommate) [id number] signed by PORTILLO Varner at 10/10/2019 10:13 [...] HOB elevated Supine to Sit, Level of Falls: maximal assist (25% patient effort) Safety Issues: decreased use of legs for bridging/pushing, impaired trunk control for bed m obility Impairments: pain, strength decreased, ROM decreased Transfers Additional Documentation: sit to/from stand, bed to/from chair Bed-Chair, Level of Falls: moderate assist (50% patient effort) Asy-Rqpcu-Mha, Assistive Device: 2 wheeled walker (FWW) Sit-Stand, Level of Falls: minimal assist (75% patient effort) Stand-Sit, Level of Falls: minimal assist (75% patient effort) Zva-Kmoak-Wjt, Assistive Device: 2 wheeled walker (FWW) Safety [...] LTG Status new at 10/09/2019 1108 LTG Falls Level modified independent at 10/09/2019 1108 LTG Assistive Device none at 10/09/2019 1108 All Transfers Goal Most Recent Value LTG Status new at 10/09/2019 1108 LTG Falls Level modified independent at 10/09/2019 1108 LTG Assistive Device 2 wheeled walker (FWW) at 10/09/2019 1108 Gait Goal Most Recent Value LTG Status new at 10/09/2019 1108 LTG Falls Level modified independent at 10/09/2019 1108 LTG Assistive Device 2 wheeled walker (FWW) at 10/09/2019 1108 LTG Distance (feet) 100 at 10/09/2019 1108 Stair Goal Most Recent Value LTG Status new at 10/09/2019 1108 LTG Falls Level modified independent at 10/09/2019 1108 LTG [...] 1.7 Estimated Energy Needs Energy Calorie Requirements: 5545-4278(28-32 kcal/kg per 54.3 kg admit wt ) [...] Ongoing, progressing Flowsheets (Taken 10/09/2019 1024) Participants: field case manager dietitian/nutrition services advanced practice nurse [...] started on clear liquid diet. lan of [facility] Viv Santos MSW - 10/09/2019 9:44 AM PDTAttended morning rounds. Pt transferred to ICU post -op for repair of thrombosed fem-fem artery bypass. Progressing. Await PT to julissa and alissa tinajero. Has no PCP per CM note and FS. Insurance is [facility]. lan of [facility] Urszula Garcia RN - 10/09/2019 8:02 [...] 10/08/2019 2:31 PM PDT BRIEF OPERATIVE NOTE [facility] Pt. Name/Age/: Jairo Theodore 59 y.o. 1960 Med. Record Number: [id number] Date of admission: 10/03/2019 Date of Operation/Procedure: [...] disease (HCC) [I73.9] Surgeon: Magdiel Arteaga MD Cashier And Waiter/Waitress: Maicol Abel PA-C Anesthesia Provider(s): Anesthesiologist: Orlando Ambriz DO ELECTRICAL ENGINEER MEP: Som Garcia CRNA Anesthesia Type: Anesthesia type not filed in the log. Procedure(s): THROMBECTOMY / EMBOLECTOMY of fem fem bypass BILATERAL BYPASS GRAFT FEMORAL-POPLITEAL WITH 6 MM PTFE ANGIOGRAM - EXTREMITY BILATERAL (62698) Operative Findings: Thrombosed femoral to femoral artery [...] Implant Name Type Inv. Item Serial No. Collector Of Internal Revenue Lot No. LRB No. Used Action GRAFT VAS PROPATEN 6-80MM - [id number] Graft GRAFT VAS PROPATEN 6-80MM [id number] WL G ORE - WLGO NA N/A 1 Implanted GRAFT VAS PROPATEN 6-80MM - [id number] Graft GRAFT VAS PROPATEN 6-80MM [id number] WL G ORE - WLGO NA N/A 1 Implanted Counts: Instrument, sponge, and needle counts were correct prior to closure and at the con clusion of the case. Complications: None Disposition: The patient was taken to PACU Immediate Post-Operative Condition: Stable Electronically signed by: Magdiel Arteaga MD, 10/08/2019, 2:31 PM PDT p Note - Magdiel Arteaga MD - 10/08/2019 10 :06 AM PDT [facility] OPERATIVE REPORT PATIENT NAME: Jairo Theodore [...] the femorofemoral bypass. Using 2 CV 6 Millbrook-Jamie sutures the 6 mm bypass was anastomos [...] astomosis was created with 2 CV 6 Millbrook-Jamie sutures. Prior to completing the anastomosis the [...] an antibiotic solution. Hemostasis was achieved. 7 Bangladeshi drains were placed in both groins and [...] Magdiel Arteaga MD Vascular Surgery Dictation software, [employer], used which may contain error for similar sounding words even af ter review. Personal communication requested for any clarification. Electronically signed by: Magdiel Arteaga MD, 10/09/2019 10:06 AM PDT [facility] lan of Care - Aggie Hayden [...] Arteaga MD - 10/07/2019 7:00 PM PDT [facility] OPERATIVE REPORT PATIENT NAME: Jairo Theodore [...] vanced a wire and placed a 7 Bangladeshi sheath. We again attempted to select out [...] femoral endarterectomy was performed w ith a Carson elevator. There was good backbleeding from the [...] common femoral endarterectomy was performed using the Carson elevator. After performing the endarterect carlyle there [...] copiously irrigated. There was good hemostasis. 7 Bangladeshi flat AUGUSTUS drains were placed in both [...] Magdiel Arteaga MD Vascular Surgery Dictation software, [employer], used which may contain error for similar sounding words even af ter review. Personal communication requested for any clarification. Electronically signed by: Magdiel Arteaga MD, 10/09/2019 9:28 AM PDT [facility] rief Op Note - Magdiel Arteaga MD - 10/07/2019 4:30 PM PDTFormatting of this note might be different from the or iginal. BRIEF OPERATIVE NOTE [facility] Pt. Name/Age/: Jairo Theodore 59 y.o. 1960 Med. Record Number: [id number] Date of admission: 10/03/2019 Date of Operation/Procedure: 10/07/2019 Preoperative Diagnosis: 1. Large right groin pseudoaneurysm 2. Peripheral arterial disease Postoperative Diagnosis: * Pseudoaneurysm (HCC) [I72.9] Surgeon: Magdiel Arteaga MD Cashier And Waiter/Waitress: Maicol Abel PA-C Anesthesia Provider(s): Anesthesiologist: Rudolph Lowery MD ELECTRICAL ENGINEER MEP: Neville Rush CRNA Anesthesia Type: General Procedure(s): [...] Implant Name Type Inv. Item Serial No. Collector Of Internal Revenue Lot No. LRB No. Used Action GRAFT GORE PROPATEN [id number] - [id number] Graft GRAFT GORE PROPATEN [id number] WL GORE - WLGO NA Right 1 Implanted GRAFT HEMGRD KNIT [id number] - [id number] Graft GRAFT HEMGRD KNIT [id number] [employer] - MAQU [id number] Right 1 Implanted [...] VSS with one SBP in 170s recheck [id number]. Report given to preop nurse and [id number] [...] bathroom clear of clutter. lan of [facility] - Carol Olivares MSW - 10/04/2019 12:52 [...] Notes: Pt resides with his friend in [place]. 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 Pt scheduled for pseudoaneurysm repair on 10/04. [...] BUN 7* CREA 0.60* Estimated Energy Needs 3004-8743 kcal/day (28-32 kcal/kg per 54.3 kg admit [...] MCKEON | | | | | | [id number] | | | | | | | | +--------+ + + + + | 02/06/ Office | Vascular Surgery | Ricci De León, DNP | | | 2019 | Visit | | [address] | | | | | | [place], [place] | | | | | | [address] | | | | | | | | | | | | Magdiel Arteaga MD | | | | | | [address] | | | | | | [place] [address] | | | | | | [place] [address] | | | | | | [phone] | | | | | | | [...] Expected: | | | | e | ([facility]) right aorto | 10/23/2019, Expires: | [...] Occurrences | | | | e | ([facility]) right aorto | starting 10/16/2019 | [...] Expected: | | | | e | ([facility]) right aorto | 10/23/2019, Expires: | [...] | Health | Referral | e | ([facility]) right aorto | | | | | | femoral bypass | | | | | | Cellulitis of right | | | | | | foot 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 ([facility]) | | | | | | [...] LABORATORY | | | | performed at [facility], [address] | | | | | | [address] [facility], | | | | | | [place] [address] | | | | + + + + + + + + | Specimen | + + | Blood | + + + + + + + | Performing | Address | City/State/Zipcode | Phone Number | | Organization | | | | + + + + + | [facility] | [address] | [place] [address] | [phone] | + + + + + Magnesium (10/16/2019 5:11 AM PDT) + + + + + + | Component | Value | Ref Range | Performed | Pathologist | | | | | At | Signature | + + + + + + | Magnesium | 1.7Comment: Testing | 1.7 - 2.4 mg/dL | [facility] | | | | performed at [facility];[address] | | LABORATORY | | | | [address];[place] | | | | | | [address] | | | | + + + + + + + + | Specimen | + + | Blood | + + + + + + + | Performing | Address | City/State/Zipcode | Phone Number | | Organization | | | | + + + + + | [facility] | [address] | [place] [address] | [phone] | + + + + + Potassium (10/16/2019 5:11 AM PDT) + + + + + + | Component | Value | Ref Range | Performed | Pathologist | | | | | At | Signature | + + + + + + | K | 3.0 (L)Comment: Testing | 3.5 - 4.9 | [facility] | | | | performed at [facility];[address] | mmol/L | LABORATORY | | | | [address];[place] | | | | | | [address] | | | | + + + + + + + + | Specimen | + + | Blood | + + + + + + + | Performing | Address | City/State/Zipcode | Phone Number | | Organization | | | | + + + + + | [facility] | [address] | [place] [address] | [phone] | + + + + + CBC [...] LABORATORY | | | | performed at [facility], [address] | | | | | [address], | | | | | | [place] [address] | | | | + + + + + + + + | Specimen | + + | Blood | + + + + + + + | Performing | Address | City/State/Zipcode | Phone Number | | Organization | | | | + + + + + | [facility] | [address] | [place] [address] | [phone] | + + + + + Magnesium (10/15/2019 5:13 AM PDT) + + + + + + | Component | Value | Ref Range | Performed | Pathologist | | | | | At | Signature | + + + + + + | Magnesium | 1.9Comment: Testing | 1.7 - 2.4 mg/dL | [facility] | | | | performed at [facility];[address] | | LABORATORY | | | | [address];[place] | | | | | | [address] | | | | + + + + + + + + | Specimen | + + | Blood | + + + + + + + | Performing | Address | City/State/Zipcode | Phone Number | | Organization | | | | + + + + + | [facility] | [address] | [place] [address] | [phone] | + + + + + Basic [...] | | | | | performed at [facility], [address] | | | | | | [address], | | | | | | [place] [address] | | | | + + + + + + + + | Specimen | + + | Blood | + + + + + + + | Performing | Address | City/State/Zipcode | Phone Number | | Organization | | | | + + + + + | [facility] | [address] | [place] [address] | [phone] | + + + + + Potassium (10/14/2019 3:28 PM PDT) + + + + + + | Component | Value | Ref Range | Performed | Pathologist | | | | | At | Signature | + + + + + + | K | 3.3 (L)Comment: Testing | 3.5 - 4.9 | [facility] | | | | performed at [facility];[address] | mmol/L | LABORATORY | | | | [address];[place] | | | | | | [address] | | | | + + + + + + + + | Specimen | + + | Blood | + + + + + + + | Performing | Address | City/State/Zipcode | Phone Number | | Organization | | | | + + + + + | [facility] | [address] | [place] [address] | [phone] | + + + + + Magnesium (10/14/2019 3:28 PM PDT) + + + + + + | Component | Value | Ref Range | Performed | Pathologist | | | | | At | Signature | + + + + + + | Magnesium | 2.1Comment: Testing | 1.7 - 2.4 mg/dL | [facility] | | | | performed at [facility];[address] | | LABORATORY | | | | [address];[place] | | | | | | [address] | | | | + + + + + + + + | Specimen | + + | Blood | + + + + + + + | Performing | Address | City/State/Zipcode | Phone Number | | Organization | | | | + + + + + | [facility] | [address] | [place] [address] | [phone] | + + + + + Phosphorus (10/14/2019 3:28 PM PDT) + + + + + + | Component | Value | Ref Range | Performed | Pathologist | | | | | At | Signature | + + + + + + | Phosphorus | 1.3 (L)Comment: Testing | 2.3 - 4.8 mg/dL | [facility] | | | | performed at [facility];[address] | | LABORATORY | | | | [address];[place] | | | | | | [address] | | | | + + + + + + + + | Specimen | + + | Blood | + + + + + + + | Performing | Address | City/State/Zipcode | Phone Number | | Organization | | | | + + + + + | [facility] | [address] | [place] [address] | [phone] | + + + + + CBC [...] LABORATORY | | | | performed at [facility], [address] | | | | | | [address], | | | | | | [place] [address] | | | | + + + + + + + + | Specimen | + + | Blood | + + + + + + + | Performing | Address | City/State/Zipcode | Phone Number | | Organization | | | | + + + + + | [facility] | [address] | [place] [address] | [phone] | + + + + + Magnesium (10/14/2019 5:49 AM PDT) + + + + + + | Component | Value | Ref Range | Performed | Pathologist | | | | | At | Signature | + + + + + + | Magnesium | 1.6 (L)Comment: Testing | 1.7 - 2.4 mg/dL | [facility] | | | | performed at [facility];[address] | | LABORATORY | | | | [address];[place] | | | | | | [address] | | | | + + + + + + + + | Specimen | + + | Blood | + + + + + + + | Performing | Address | City/State/Zipcode | Phone Number | | Organization | | | | + + + + + | [facility] | [address] | [place] [address] | [phone] | + + + + + Basic [...] | | | | | performed at [facility], [address] | | | | | | [facility], | | | | | | [place] [address] | | | | + + + + + + + + | Specimen | + + | Blood | + + + + + + + | Performing | Address | City/State/Zipcode | Phone Number | | Organization | | | | + + + + + | [facility] | [address] | [place] [address] | [phone] | + + + + + Potassium (10/13/2019 11:07 AM PDT) + + + + + + | Component | Value | Ref Range | Performed | Pathologist | | | | | At | Signature | + + + + + + | K | 3.5Comment: Testing | 3.5 - 4.9 | [facility] | | | | performed at [facility];[address] | mmol/L | LABORATORY | | | | [address];[place] | | | | | | [address] | | | | + + + + + + + + | Specimen | + + | Blood | + + + + + + + | Performing | Address | City/State/Zipcode | Phone Number | | Organization | | | | + + + + + | [facility] | [address] | [place] [address] | [phone] | + + + + + Potassium (10/13/2019 4:37 AM PDT) + + + + + + | Component | Value | Ref Range | Performed | Pathologist | | | | | At | Signature | + + + + + + | K | 3.5Comment: Testing | 3.5 - 4.9 | [facility] | | | | performed at [facility];[address] | mmol/L | LABORATORY | | | | [facility];[place], [place] | | | | | | [address] | | | | + + + + + + + + | Specimen | + + | Blood | + + + + + + + | Performing | Address | City/State/Zipcode | Phone Number | | Organization | | | | + + + + + | [facility] | [address] | [place] [address] | [phone] | + + + + + Magnesium (10/13/2019 4:37 AM PDT) + + + + + + | Component | Value | Ref Range | Performed | Pathologist | | | | | At | Signature | + + + + + + | Magnesium | 1.7Comment: Testing | 1.7 - 2.4 mg/dL | [facility] | | | | performed at [facility];[address] | | LABORATORY | | | | [address];[place] | | | | | | [address] | | | | + + + + + + + + | Specimen | + + | Blood | + + + + + + + | Performing | Address | City/State/Zipcode | Phone Number | | Organization | | | | + + + + + | [facility] | [address] | [place] [address] | [phone] | + + + + + Basic [...] | | | | | performed at [facility] | | | | | | [facility];[place], [place] | | | | | | [address] | | | | + + + + + + + + | Specimen | + + | Blood | + + + + + + + | Performing | Address | City/State/Zipcode | Phone Number | | Organization | | | | + + + + + | [facility] | [address] | [place] [address] | [phone] | + + + + + Hemoglobin [...] [facility] | | | | performed at [facility];[address] | | LABORATORY | | | | [facility];[place], [place] | | | | | | [address] | | | | + + + + + + + + | Specimen | + + | Blood | + + + + + + + | Performing | Address | City/State/Zipcode | Phone Number | | Organization | | | | + + + + + | [facility] | [address] | [place] [address] | [phone] | + + + + + Potassium (10/12/2019 4:28 PM PDT) + + + + + + | Component | Value | Ref Range | Performed | Pathologist | | | | | At | Signature | + + + + + + | K | 3.3 (L)Comment: Testing | 3.5 - 4.9 | [facility] | | | | performed at [facility];[address] | mmol/L | LABORATORY | | | | [address];[place] | | | | | | [address] | | | | + + + + + + + + | Specimen | + + | Blood | + + + + + + + | Performing | Address | City/State/Zipcode | Phone Number | | Organization | | | | + + + + + | [facility] | [address] | [place] [address] | [phone] | + + + + + Clostridium [...] at | | | | | | [facility];[address] [place] [address] | | | | | | [facility];[place] [address] | | | | + + + + + + + + | Specimen | + + | Stool - Stool | | specimen (specimen) | + + + + + + + | Performing | Address | City/State/Zipcode | Phone Number | | Organization | | | | + + + + + | [facility] | [address] | [place] [address] | [phone] | + + + + + Potassium (10/12/2019 11:02 AM PDT) + + + + + + | Component | Value | Ref Range | Performed | Pathologist | | | | | At | Signature | + + + + + + | K | 3.3 (L)Comment: Testing | 3.5 - 4.9 | [facility] | | | | performed at [facility];888 | mmol/L | LABORATORY | | | | [address];[place], [place] | | | | | | [address] | | | | + + + + + + + + | Specimen | + + | Blood | + + + + + + + | Performing | Address | City/State/Zipcode | Phone Number | | Organization | | | | + + + + + | [facility] | [address] | [place] [address] | [phone] | + + + + + Type [...] + + + | BB BAND | [id number] | | [facility] | | | | | | LABORATORY | | + + + + + + | UNIT # | [id number] | | [facility] | | | | [...] | | | RESULT | performed at [facility];[address] | | LABORATORY | | | | [address];[place], [place] | | | | | | [address] | | | | + + + + + + | UNIT # | [id number] | | [facility] | | | | [...] + + | [facility] | [address] | [place] [address] | [phone] | + + + + + Red [...] | Testing performed at | | [facility] | | | COMMENT | [facility];[address] | | LABORATORY | | | | [address];[place] [address] | | | | + + + + + + + + | Specimen | + + | | + + + + + + + | Performing | Address | City/State/Zipcode | Phone Number | | Organization | | | | + + + + + | [facility] | [address] | [place] [address] | [phone] | + + + + + Magnesium (10/12/2019 4:08 AM PDT) + + + + + + | Component | Value | Ref Range | Performed | Pathologist | | | | | At | Signature | + + + + + + | Magnesium | 1.9Comment: Testing | 1.7 - 2.4 mg/dL | [facility] | | | | performed at [facility];[address] | | LABORATORY | | | | [address];[place], [place] | | | | | | [address] | | | | + + + + + + + + | Specimen | + + | Blood | + + + + + + + | Performing | Address | City/State/Zipcode | Phone Number | | Organization | | | | + + + + + | [facility] | [address] | [place] [address] | [phone] | + + + + + Comprehensive [...] >60Comment: GFR <60: | >60 | [facility] | | | GFR | CHRONIC [...] | | | | | | MDRD [facility] traceable | | | | | | equation.Testing | | | | | | performed at [facility];[address] | | | | | | [facility];[place], [place] | | | | | | [address] | | | | + + + + + + + + | Specimen | + + | Blood | + + + + + + + | Performing | Address | City/State/Zipcode | Phone Number | | Organization | | | | + + + + + | [facility] | [address] [facility] | [place] [address] | [phone] | + + + + + CBC [...] | [facility] | | | | NURSING [id number] H | g/dL | LABORATORY | | [...] | [facility] | | | | NURSING [id number] | | LABORATORY | | | | [...] LABORATORY | | | | performed at [facility];[address] | | | | | | [address];[place] | | | | | | [address] | | | | + + + + + + + + | Specimen | + + | Blood | + + + + + + + | Performing | Address | City/State/Zipcode | Phone Number | | Organization | | | | + + + + + | [facility] | [address] | [place] [address] | [phone] | + + + + + Urinalysis [...] - 1.030 | [facility] | | | [place], | | | LABORATORY | | | [...] | | LABORATORY | | | | [facility], [address] | | | | | | [place] | | | | | | [address] | | | | + + + [...] + + + + + | [facility] | [address] | [place] [address] | [phone] | + + + + + Osmolality, Urine (10/11/2019 11:16 AM PDT) + + + + + + | Component | Value | Ref Range | Performed | Pathologist | | | | | At | Signature | + + + + + + | OSMO URINE | 239Comment: Testing | 50 - 1,200 | [facility] | | | | performed at [facility], [address] | mOsm/kg | LABORATORY | | | | [address], | | | | | | [place] [address] | | | | + + + [...] + + + + + | [facility] | [address] | [place] [address] | [phone] | + + + + + Culture, [...] | | LABORATORY | | | | Blvd;[place] [address] | | | | + + + + + + | RESULT | NO GROWTH 6 DAYS | | [facility] | | | | | | LABORATORY | | + + + + + + | RESULT | Testing performed at | | [facility] | | | | [facility], [address] [facility] | | LABORATORY | | | | [facility], [place], [place] | | | | | | [address]Gsbydxc: Testing | | | | | | performed at [facility], [address] | | | | | | [facility], [place], [place] | | | | | | [address] | | | | + + + + + + + + | Specimen | + + | Blood - Swab of line | | insertion site | | (specimen) | + + + + + + + | Performing | Address | City/State/Zipcode | Phone Number | | Organization | | | | + + + + + | [facility] | [address] | [place] [address] | [phone] | + + + + + XR [...] Procedure Note | + + | Espinoza, [id number] - 10/11/2019 10:42 AM PDT | | [...] LABORATORY | | | | Blvd;[place] [address] | | | | + + + + + + | RESULT | NO GROWTH 6 DAYS | | [facility] | | | | | | LABORATORY | | + + + + + + | RESULT | Testing performed at | | [facility] | | | | [facility], [address] | | LABORATORY | | | | [place] | | | | | | [address]Pkmhoeu: Testing | | | | | | performed at [facility], [address] | | | | | | [address] [place] | | | | | | [address] | | | | + + + + + + + + | Specimen | + + | Blood - Peripheral | | blood specimen | | (specimen) | + + + + + + + | Performing | Address | City/State/Zipcode | Phone Number | | Organization | | | | + + + + + | [facility] | [address] | [place] [address] | [phone] | + + + + + Sodium (10/11/2019 9:30 AM PDT) + + + + + + | Component | Value | Ref Range | Performed | Pathologist | | | | | At | Signature | + + + + + + | Na | 127 (L)Comment: Testing | 135 - 145 | [facility] | | | | performed at [facility];888 | mmol/L | LABORATORY | | | | [address];[place] | | | | | | [address] | | | | + + + + + + + + | Specimen | + + | Blood | + + + + + + + | Performing | Address | City/State/Zipcode | Phone Number | | Organization | | | | + + + + + | [facility] | [address] | [place] [address] | [phone] | + + + + + Osmolality, Serum (10/11/2019 9:30 AM PDT) + + + + + + | Component | Value | Ref Range | Performed | Pathologist | | | | | At | Signature | + + + + + + | Osmolality, | 262 (L)Comment: Testing | 280 - 301 | [facility] | | | Serum | performed at [facility], [address] | mOsm/kg | LABORATORY | | | | [place], | | | | | | [place] [address] | | | | + + + + + + + + | Specimen | + + | Blood | + + + + + + + | Performing | Address | City/State/Zipcode | Phone Number | | Organization | | | | + + + + + | [facility] | [address] | [place] [address] | [phone] | + + + + + Comprehensive [...] | | | | | performed at [facility];[address] | | | | | | [facility];[place], [place] | | | | | | [address] | | | | + + + + + + + + | Specimen | + + | Blood | + + + + + + + | Performing | Address | City/State/Zipcode | Phone Number | | Organization | | | | + + + + + | [facility] | [address] | [place] [address] | [phone] | + + + + + CBC [...] LABORATORY | | | | performed at [facility];[address] | | | | | | [address];[place] | | | | | | [address] | | | | + + + + + + + + | Specimen | + + | Blood | + + + + + + + | Performing | Address | City/State/Zipcode | Phone Number | | Organization | | | | + + + + + | [facility] | [address] | [place] [address] | [phone] | + + + + + Comprehensive [...] | | | | | performed at [facility];[address] | | | | | | [facility];[place], [place] | | | | | | [address] | | | | + + + + + + + + | Specimen | + + | Blood | + + + + + + + | Performing | Address | City/State/Zipcode | Phone Number | | Organization | | | | + + + + + | [facility] | [address] | [place] [address] | [phone] | + + + + + Magnesium (10/10/2019 4:16 AM PDT) + + + + + + | Component | Value | Ref Range | Performed | Pathologist | | | | | At | Signature | + + + + + + | Magnesium | 1.8Comment: Testing | 1.7 - 2.4 mg/dL | [facility] | | | | performed at [facility];[address] | | LABORATORY | | | | [address];[place], [place] | | | | | | [address] | | | | + + + + + + + + | Specimen | + + | Blood | + + + + + + + | Performing | Address | City/State/Zipcode | Phone Number | | Organization | | | | + + + + + | [facility] | [address] | [place] [address] | [phone] | + + + + + CBC [...] | | | Absolute | performed at [facility];[address] | K/uL | LABORATORY | | | | [address];[place] | | | | | | [address] | | | | + + + + + + + + | Specimen | + + | Blood | + + + + + + + | Performing | Address | City/State/Zipcode | Phone Number | | Organization | | | | + + + + + | [facility] | [address] | [place] [address] | [phone] | + + + + + Lactic Acid (10/09/2019 5:12 AM PDT) + + + + + + | Component | Value | Ref Range | Performed | Pathologist | | | | | At | Signature | + + + + + + | Lactate, | 1.8Comment: Testing | 0.4 - 2.0 | [facility] | | | Serum | performed at [facility];[address] | mmol/L | LABORATORY | | | | [address];[place] | | | | | | [address] | | | | + + + + + + + + | Specimen | + + | Blood | + + + + + + + | Performing | Address | City/State/Zipcode | Phone Number | | Organization | | | | + + + + + | [facility] | [address] | [place] [address] | [phone] | + + + + + Comprehensive [...] >60Comment: GFR <60: | >60 | [facility] | | | GFR | CHRONIC [...] | | | | | | MDRD [facility] traceable | | | | | | equation.Testing | | | | | | performed at [facility];[address] | | | | | | [facility];[place], [place] | | | | | | [address] | | | | + + + + + + + + | Specimen | + + | Blood | + + + + + + + | Performing | Address | City/State/Zipcode | Phone Number | | Organization | | | | + + + + + | [facility] | [address] | [place] [address] | [phone] | + + + + + Procalcitonin (10/09/2019 5:10 AM PDT) + + + + + + | Component | Value | Ref Range | Performed | Pathologist | | | | | At | Signature | + + + + + + | PROCALCITON | 0.65 (H)Comment: | <0.5 ng/mL | [facility] | | | IN | INTERPRETIVE [...] | | | | | | at [facility];[address] [place] [address] | | | | | | [facility];[place] [address] | | | | + + + + + + + + | Specimen | + + | Blood | + + + + + + + | Performing | Address | City/State/Zipcode | Phone Number | | Organization | | | | + + + + + | [facility] | [address] | [place] [address] | [phone] | + + + + + Phosphorus (10/09/2019 5:10 AM PDT) + + + + + + | Component | Value | Ref Range | Performed | Pathologist | | | | | At | Signature | + + + + + + | Phosphorus | 4.0Comment: Testing | 2.3 - 4.8 mg/dL | [facility] | | | | performed at [facility];[address] | | LABORATORY | | | | [address];[place] | | | | | | [address] | | | | + + + + + + + + | Specimen | + + | Blood | + + + + + + + | Performing | Address | City/State/Zipcode | Phone Number | | Organization | | | | + + + + + | [facility] | [address] | [place] [address] | [phone] | + + + + + Magnesium (10/09/2019 5:10 AM PDT) + + + + + + | Component | Value | Ref Range | Performed | Pathologist | | | | | At | Signature | + + + + + + | Magnesium | 1.7Comment: Testing | 1.7 - 2.4 mg/dL | [facility] | | | | performed at [facility];[address] | | LABORATORY | | | | [address];[place], [place] | | | | | | [address] | | | | + + + + + + + + | Specimen | + + | Blood | + + + + + + + | Performing | Address | City/State/Zipcode | Phone Number | | Organization | | | | + + + + + | [facility] | [address] | [place] [address] | [phone] | + + + + + CBC [...] | | | | | performed at [facility];[address] | | | | | | [address];[place] | | | | | | [address] | | | | + + + + + + + + | Specimen | + + | Blood | + + + + + + + | Performing | Address | City/State/Zipcode | Phone Number | | Organization | | | | + + + + + | [facility] | [address] | [place] [address] | [phone] | + + + + + POC Glucose (10/09/2019 12:47 AM PDT) + + + + + + | Component | Value | Ref Range | Performed | Pathologist | | | | | At | Signature | + + + + + + | Glucose, | 128 (H)Comment: Testing | 65 - 99 mg/dL | [facility] | | | POC | performed at [facility];[address] | | LABORATORY | | | | [address];[place] | | | | | | [address] | | | | + + + + + + + + | Specimen | + + | | + + + + + + + | Performing | Address | City/State/Zipcode | Phone Number | | Organization | | | | + + + + + | [facility] | [address] | [place] [address] | [phone] | + + + + + Phosphorus (10/08/2019 5:23 PM PDT) + + + + + + | Component | Value | Ref Range | Performed | Pathologist | | | | | At | Signature | + + + + + + | Phosphorus | 3.4Comment: Testing | 2.3 - 4.8 mg/dL | [facility] | | | | performed at [facility];[address] | | LABORATORY | | | | [address];[place], [place] | | | | | | [address] | | | | + + + + + + + + | Specimen | + + | Blood | + + + + + + + | Performing | Address | City/State/Zipcode | Phone Number | | Organization | | | | + + + + + | [facility] | [address] | [place] [address] | [phone] | + + + + + Magnesium (10/08/2019 5:23 PM PDT) + + + + + + | Component | Value | Ref Range | Performed | Pathologist | | | | | At | Signature | + + + + + + | Magnesium | 1.8Comment: Testing | 1.7 - 2.4 mg/dL | [facility] | | | | performed at [facility];[address] | | LABORATORY | | | | [address];[place] | | | | | | [address] | | | | + + + + + + + + | Specimen | + + | Blood | + + + + + + + | Performing | Address | City/State/Zipcode | Phone Number | | Organization | | | | + + + + + | [facility] | [address] | [place] [address] | [phone] | + + + + + CBC [...] at | | | | | | [facility];[address] | [address];[place] [address] | | | | + + + + + + + + | Specimen | + + | Blood | + + + + + + + | Performing | Address | City/State/Zipcode | Phone Number | | Organization | | | | + + + + + | [facility] | [address] | [place] [address] | [phone] | + + + + + Basic [...] | | | | | performed at [facility] | | | | | | [facility] [employer];[place], [place] | | | | | | [address] | | | | + + + + + + + + | Specimen | + + | Blood | + + + + + + + | Performing | Address | City/State/Zipcode | Phone Number | | Organization | | | | + + + + + | [facility] | [address] | [place] [address] | [phone] | + + + + + PTT (10/08/2019 5:23 PM PDT) + + + + + + | Component | Value | Ref Range | Performed | Pathologist | | | | | At | Signature | + + + + + + | PTT | 32Comment: Testing | 23 - 32 seconds | [facility] | | | | performed at [facility];8 | | LABORATORY | | | | [address];[place] | | | | | | [address] | | | | + + + + + + + + | Specimen | + + | Blood | + + + + + + + | Performing | Address | City/State/Zipcode | Phone Number | | Organization | | | | + + + + + | [facility] | [address] | [place] [address] | [phone] | + + + + + POC ISTAT, CG8, Arterial (10/08/2019 2:04 PM PDT) + + + + + + | Component | Value | Ref Range | Performed | Pathologist | | | | | At | Signature | + + + + + + | pH, | 7.291 (L) | 7.350 - 7.450 | [facility] | | | Arterial, | | | LABORATORY | | | POC | | | | | + + + + + + | pCO2, | 39 | 35 - 45 mmHg | [facility] [...] | | | POC | performed at [facility];888 | g/dL | LABORATORY | | | | [address];[place], [place] | | | | | | [address] | | | | + + + + + + + + | Specimen | + + | | + + + + + + + | Performing | Address | City/State/Zipcode | Phone Number | | Organization | | | | + + + + + | [facility] | [address] | [place] [address] | [phone] | + + + + + POC ISTAT, CG8, Arterial (10/08/2019 1:22 PM PDT) + + + + + + | Component | Value | Ref Range | Performed | Pathologist | | | | | At | Signature | + + + + + + | pH, | 7.334 (L) | 7.350 - 7.450 | [facility] | | | Arterial, | | [...] | | | POC | performed at [facility];888 | g/dL | LABORATORY | | | | [address];[place], [place] | | | | | | [address] | | | | + + + + + + + + | Specimen | + + | | + + + + + + + | Performing | Address | City/State/Zipcode | Phone Number | | Organization | | | | + + + + + | [facility] | [address] | [place] [address] | [phone] | + + + + + Basic [...] | | | | | performed at [facility], [address] | | | | | | [facility], | | | | | | [place] [address] | | | | + + + + + + + + | Specimen | + + | Blood | + + + + + + + | Performing | Address | City/State/Zipcode | Phone Number | | Organization | | | | + + + + + | [facility] | [address] | [place] [address] | [phone] | + + + + + CBC [...] | | | Absolute | performed at [facility], [address] | K/uL | LABORATORY | | | | [place], | | | | | | [place] [address] | | | | + + + + + + + + | Specimen | + + | Blood | + + + + + + + | Performing | Address | City/State/Zipcode | Phone Number | | Organization | | | | + + + + + | [facility] | [address] | [place] [address] | [phone] | + + + + + Magnesium (10/08/2019 5:44 AM PDT) + + + + + + | Component | Value | Ref Range | Performed | Pathologist | | | | | At | Signature | + + + + + + | Magnesium | 1.6 (L)Comment: Testing | 1.7 - 2.4 mg/dL | [facility] | | | | performed at [facility];[address] | | LABORATORY | | | | [address];[place] | | | | | | [address] | | | | + + + + + + + + | Specimen | + + | Blood | + + + + + + + | Performing | Address | City/State/Zipcode | Phone Number | | Organization | | | | + + + + + | [facility] | [address] | [place] [address] | [phone] | + + + + + PTT (10/07/2019 5:21 PM PDT) + + + + + + | Component | Value | Ref Range | Performed | Pathologist | | | | | At | Signature | + + + + + + | PTT | 28Comment: Testing | 23 - 32 seconds | [facility] | | | | performed at [facility];[address] | | LABORATORY | | | | [address];[place], [place] | | | | | | [address] | | | | + + + + + + + + | Specimen | + + | Blood - Artery, | | Radial, Right | + + + + + + + | Performing | Address | City/State/Zipcode | Phone Number | | Organization | | | | + + + + + | [facility] | [address] | [place] [address] | [phone] | + + + + + Protime INR (10/07/2019 5:21 PM PDT) + + + + + + | Component | Value | Ref Range | Performed | Pathologist | | | | | At | Signature | + + + + + + | INR | 1.3Comment: REFERENCE | | [facility] | | | | RANGE:0.9 - [...] | | | | | performed at [facility];[address] | | | | | | [facility];[place], [place] | | | | | | [address] | | | | + + + + + + + + | Specimen | + + | Blood - Artery, | | Radial, Right | + + + + + + + | Performing | Address | City/State/Zipcode | Phone Number | | Organization | | | | + + + + + | [facility] | [address] | [place] [address] | [phone] | + + + + + Basic [...] | | | | | performed at [facility];[address] | | | | | | [facility];[place], [place] | | | | | | [address] | | | | + + + + + + + + | Specimen | + + | Blood - Artery, | | Radial, Right | + + + + + + + | Performing | Address | City/State/Zipcode | Phone Number | | Organization | | | | + + + + + | [facility] | [address] | [place] [address] | [phone] | + + + + + CBC [...] LABORATORY | | | | performed at [facility];[address] | | | | | | [address];[place] | | | | | | [address] | | | | + + + + + + + + | Specimen | + + | Blood - Right upper | | arm structure (body | | structure) | + + + + + + + | Performing | Address | City/State/Zipcode | Phone Number | | Organization | | | | + + + + + | [facility] | [address] | [place] [address] | [phone] | + + + + + Surgical [...] | including foreign body giant cell reaction. AMB:[facility]:C2NR MICROSCOPIC | | | EXAMINATION:Histologic sections of [...] attached red-white | | | fibromembranous tissue. Client Support Representative sections are submitted in | | | [...] | LABORATORY:The technical component was performed by [facility] | | | [employer] [facility], [address] [place] [address] (Bi Report Developer: | | | Asia Rodriguez MD; CLIA# [id number]).Professional interpretation was | | | performed by [facility], [facility] | | | [place] [address] (Bi Report Developer: Solitario | | | Jacky Recio; CLIA#: [id number]). Diagnostician: Asia Rodriguez | | | MDPathologistElectronically Signed 10/10/2019 | | | | | |PERFORMING LABORATORY: | | |The technical component was performed by [facility], [address] [place] [address] (Bi Report Developer: sAia Rodriguez MD; CLIA# [id number]). | | |Professional interpretation was performed by [facility], [facility], [address] [place] [address] (Bi Report Developer: Solitario Recio M.D.; CLIA#: [id number]). | | | | | |Diagnostician: Asia [...] | | | POC | performed at [facility];[address] | g/dL | LABORATORY | | | | [address];[place], [place] | | | | | | [address] | | | | + + + + + + + + | Specimen | + + | | + + + + + + + | Performing | Address | City/State/Zipcode | Phone Number | | Organization | | | | + + + + + | [facility] | [address] | [place] [address] | [phone] | + + + + + Red [...] | [facility] | | | COMMENT | [facility];[address] | | LABORATORY | | | | Blvd;[place] [address] | | | | + + + + + + + + | Specimen | + + | | + + + + + + + | Performing | Address | City/State/Zipcode | Phone Number | | Organization | | | | + + + + + | [facility] | [address] | [place] [address] | [phone] | + + + + + POC SCOTT [id number], Arterial (10/07/2019 12:37 PM PDT) + + [...] (L)Comment: Testing | 13.7 - 16.7 | [facility] | | | POC | performed at [facility];[address] | g/dL | LABORATORY | | | | [address];[place], [place] | | | | | | [address] | | | | + + + + + + + + | Specimen | + + | | + + + + + + + | Performing | Address | City/State/Zipcode | Phone Number | | Organization | | | | + + + + + | [facility] | [address] | [place] [address] | [phone] | + + + + + POC [...] | | | POC | performed at [facility];888 | g/dL | LABORATORY | | | | [address];[place], [place] | | | | | | [address] | | | | + + + + + + + + | Specimen | + + | | + + + + + + + | Performing | Address | City/State/Zipcode | Phone Number | | Organization | | | | + + + + + | [facility] | [address] | [place] [address] | [phone] | + + + + + POC ISLILLIE, CG8, Arterial (10/07/2019 8:40 AM PDT) + + + + + + | Component | Value | Ref Range | Performed | Pathologist | | | | | At | Signature | + + + + + + | pH, | 7.314 (L) | 7.350 - 7.450 | [facility] | | | Arterial, | | [...] | | | POC | performed at [facility];[address] | g/dL | LABORATORY | | | | [address];[place] | | | | | | [address] | | | | + + + + + + + + | Specimen | + + | | + + + + + + + | Performing | Address | City/State/Zipcode | Phone Number | | Organization | | | | + + + + + | [facility] | [address] | [place] [address] | [phone] | + + + + + Red [...] | [facility] | | | COMMENT | [facility];[address] [facility] | | LABORATORY | | | | Blvd;[place] [address] | | | | + + + + + + + + | Specimen | + + | | + + + + + + + | Performing | Address | City/State/Zipcode | Phone Number | | Organization | | | | + + + + + | [facility] | [address] | [place] [address] | [phone] | + + + + + Magnesium (10/07/2019 3:55 AM PDT) + + + + + + | Component | Value | Ref Range | Performed | Pathologist | | | | | At | Signature | + + + + + + | Magnesium | 1.6 (L)Comment: Testing | 1.7 - 2.4 mg/dL | [facility] | | | | performed at [facility];[address] | | LABORATORY | | | | [address];[place], [place] | | | | | | [address] | | | | + + + + + + + + | Specimen | + + | Blood | + + + + + + + | Performing | Address | City/State/Zipcode | Phone Number | | Organization | | | | + + + + + | [facility] | [address] | [place] [address] | [phone] | + + + + + Type [...] + + + | BB BAND | [address] | | [facility] | | | | | | LABORATORY | | + + + + + + | UNIT # | [id number] | | [facility] | | | | [...] + + + | UNIT # | [id number] | | [facility] | | | | [...] + + + | UNIT # | [id number] | | [facility] | | | | [...] + + + | UNIT # | [id number] | | [facility] | | | | [...] | | | RESULT | performed at [facility];[address] | | LABORATORY | | | | [address];[place], [place] | | | | | | [address] | | | | + + + + + + + + | Specimen | + + | Blood | + + + + + + + | Performing | Address | City/State/Zipcode | Phone Number | | Organization | | | | + + + + + | [facility] | [address] | [place] [address] | [phone] | + + + + + Basic [...] >60Comment: GFR <60: | >60 | [facility] | | | GFR | CHRONIC [...] | | | | | | MDRD [facility] traceable | | | | | | equation.Testing | | | | | | performed at [facility] | | | | | | [employer];[place], [place] | | | | | | [address] | | | | + + + + + + + + | Specimen | + + | Blood | + + + + + + + | Performing | Address | City/State/Zipcode | Phone Number | | Organization | | | | + + + + + | [facility] | [address] | [place] [address] | [phone] | + + + + + CBC [...] 0.07Comment: Testing | 0.00 - 0.10 | [facility] | | | Absolute | performed at [facility];[address] | K/uL | LABORATORY | | | | [address];[place] | | | | | | [address] | | | | + + + + + + + + | Specimen | + + | Blood | + + + + + + + | Performing | Address | City/State/Zipcode | Phone Number | | Organization | | | | + + + + + | [facility] | [address] | [place] [address] | [phone] | + + + + + Magnesium (10/06/2019 6:27 AM PDT) + + + + + + | Component | Value | Ref Range | Performed | Pathologist | | | | | At | Signature | + + + + + + | Magnesium | 1.6 (L)Comment: Testing | 1.7 - 2.4 mg/dL | [facility] | | | | performed at [facility] | | LABORATORY | | | | [facility];[place], [place] | | | | | | [address] | | | | + + + + + + + + | Specimen | + + | Blood | + + + + + + + | Performing | Address | City/State/Zipcode | Phone Number | | Organization | | | | + + + + + | [facility] | [address] | [place] [address] | [phone] | + + + + + Basic [...] >60Comment: GFR <60: | >60 | [facility] | | | GFR | CHRONIC [...] | | | | | | MDRD IDIA traceable | | | | | | equation.Testing | | | | | | performed at [facility], [address] | | | | | | [facility], | | | | | | [place] [address] | | | | + + + + + + + + | Specimen | + + | Blood | + + + + + + + | Performing | Address | City/State/Zipcode | Phone Number | | Organization | | | | + + + + + | [facility] | [address] | [place] [address] | [phone] | + + + + + CBC [...] 0.08Comment: Testing | 0.00 - 0.10 | [facility] | | | Absolute | performed at [facility], [address] | K/uL | LABORATORY | | | | [address], | | | | | | [place] [address] | | | | + + + + + + + + | Specimen | + + | Blood | + + + + + + + | Performing | Address | City/State/Zipcode | Phone Number | | Organization | | | | + + + + + | [facility] | [address] [facility] | [place] [address] | [phone] | + + + + + Magnesium (10/05/2019 5:02 AM PDT) + + + + + + | Component | Value | Ref Range | Performed | Pathologist | | | | | At | Signature | + + + + + + | Magnesium | 1.7Comment: Testing | 1.7 - 2.4 mg/dL | [facility] | | | | performed at [facility] | | LABORATORY | | | | [address];[place], [place] | | | | | | [address] | | | | + + + + + + + + | Specimen | + + | Blood | + + + + + + + | Performing | Address | City/State/Zipcode | Phone Number | | Organization | | | | + + + + + | [facility] | [address] | [place] [address] | [phone] | + + + + + Basic [...] >60Comment: GFR <60: | >60 | [facility] | | | GFR | CHRONIC [...] | | | | | | MDRD IDIA traceable | | | | | | equation.Testing | | | | | | performed at [facility], [address] | | | | | | [facility], | | | | | | [place] [address] | | | | + + + + + + + + | Specimen | + + | Blood | + + + + + + + | Performing | Address | City/State/Zipcode | Phone Number | | Organization | | | | + + + + + | [facility] | [address] | [place] [address] | [phone] | + + + + + CBC [...] [address], | | | | | | [place] [address] | | | | + + + + + + + + | Specimen | + + | Blood | + + + + + + + | Performing | Address | City/State/Zipcode | Phone Number | | Organization | | | | + + + + + | [facility] | [address] | [place] [address] | [phone] | + + + + + ECHO [...] Procedure Note | + + | Espinoza, [id number] - 10/04/2019 12:10 PM PDT | | [...] KT | | | | performed at [facility];[address] | | LABORATORY | | | | [address];[place], [place] | | | | | | [address] | | | | + + + + + + + + | Specimen | + + | Tissue - Both | | anterior nares (body | | structure) | + + + + + + + | Performing | Address | City/State/Zipcode | Phone Number | | Organization | | | | + + + + + | [facility] | [address] | [place] [address] | [phone] | + + + + + Protime [...] | | | | | performed at [facility] | | | | | | [facility];[place], [place] | | | | | | [address] | | | | + + + + + + + + | Specimen | + + | Blood | + + + + + + + | Performing | Address | City/State/Zipcode | Phone Number | | Organization | | | | + + + + + | [facility] | [address] | [place] [address] | [phone] | + + + + + Uric Acid (10/04/2019 4:26 AM PDT) + + + + + + | Component | Value | Ref Range | Performed | Pathologist | | | | | At | Signature | + + + + + + | Uric Acid | 3.2Comment: Testing | 3.2 - 8.6 mg/dL | [facility] | | | | performed at [facility], [address] | | LABORATORY | | | | [address], | | | | | | [place] [address] | | | | + + + + + + + + | Specimen | + + | Blood | + + + + + + + | Performing | Address | City/State/Zipcode | Phone Number | | Organization | | | | + + + + + | [facility] | [address] | [place] [address] | [phone] | + + + + + Lipid [...] | 80Comment: Testing | <100 mg/dL | [facility] | | | Calculated | performed at [facility], [address] | | LABORATORY | | | | [address], | | | | | | [place] [address] | | | | + + + + + + + + | Specimen | + + | Blood | + + + + + + + | Performing | Address | City/State/Zipcode | Phone Number | | Organization | | | | + + + + + | [facility] | [address] | [place] [address] | [phone] | + + + + + Comprehensive [...] | | | | | performed at [facility], [address] | | | | | | [address], | | | | | | [place] [address] | | | | + + + + + + + + | Specimen | + + | Blood | + + + + + + + | Performing | Address | City/State/Zipcode | Phone Number | | Organization | | | | + + + + + | [facility] | [address] | [place] [address] | [phone] | + + + + + CBC [...] | | | Absolute | performed at [facility], [address] | K/uL | LABORATORY | | | | [address], | | | | | | [place] [address] | | | | + + + + + + + + | Specimen | + + | Blood | + + + + + + + | Performing | Address | City/State/Zipcode | Phone Number | | Organization | | | | + + + + + | [facility] | [address] | [place] [address] | [phone] | + + + + + Coronavirus (COVID-19) NAAT (10/04/2019 12:49 AM PDT) + + + + + + | Component | Value | Ref Range | Performed | Pathologist | | | | | At | Signature | + + + + + + | SARS-CoV-2, | NEGATIVEComment: This | NEG | [facility] | | | NAAT | test was developed and | | LABORATORY | | | (COVID-19) | its performance | | | | | | characteristics | | | | | | determined by[facility]. It | | | | | | [...] | | | | | performed at [facility];[address] | | | | | | [facility] [employer];[place], [place] | | | | | | [address] | | | | + + + + + + + + | Specimen | + + | Tissue - Entire | | nasopharynx (body | | structure) | + + + + + + + | Performing | Address | City/State/Zipcode | Phone Number | | Organization | | | | + + + + + | [facility] | [address] | [place] [address] | [phone] | + + + + + ECG [...] | | | | XIANG HART MD ([id number]) | | | | | | on [...] | | [facility] | | | | [address] | | LABORATORY | | | | [address];[place] [address] | | | | + + + + + + + + | Specimen | + + | Blood | + + + + + + + | Performing | Address | City/State/Zipcode | Phone Number | | Organization | | | | + + + + + | [facility] | [address] | [place] [address] | [phone] | + + + + + Comprehensive [...] | | | | | performed at [facility] | | | | | | [employer];[place], [place] | | | | | | [address] | | | | + + + + + + + + | Specimen | + + | Blood | + + + + + + + | Performing | Address | City/State/Zipcode | Phone Number | | Organization | | | | + + + + + | [facility] | [address] | [place] [address] | [phone] | + + + + + CBC [...] 0.06Comment: Testing | 0.00 - 0.10 | [facility] | | | Absolute | performed at [facility];[address] | K/uL | LABORATORY | | | | [address];[place], [place] | | | | | | [address] | | | | + + + + + + + + | Specimen | + + | Blood | + + + + + + + | Performing | Address | City/State/Zipcode | Phone Number | | Organization | | | | + + + + + | [facility] | [address] | [place] [address] | [phone] | + + + + + documented [...] | | | | | Starting [facility] 10/12/19 at 1744 | | | [...] | | | | First dose on 10/10/19 at 1215 | | | | [...]
--- OUTSIDE RECORDS SUMMARY | ~2019-11-18 | XMS | Encounter Summary ---
Demographics + + + | Address | [address] | | | [place] [address] | + + + | Home Phone [...] Team Providers + +------+ + | Care Umbrella Frame Maker Name | Role | Phone | [...] | | | | cribed | | [facility] | | | | | | [place] [address] | | | | | | [phone] | | +--------+ + + + + [...] Bina Harrington - 05/18/2007 9:27 AM PDT [id number] 05/12/19 08 [id number] FROILAN JUAREZ [id number] Date: 05/12/2007 Patient: Jairo Theodore MR# [id number] The patient called to say that he is not able to keep his appointment on May 16, 2007, due to transportation issues. The patient cannot afford gas from [employer]. He states he is doing well. His incision line is without erythema, edema, or exudate. He is having no pain and not requiring any oxycodone. He is in the process of finding a PCP. He does have a 6-month refill of his metoprolol which he is taking. Bina Harrington, N.P. / [id number] / [id number] / [id number] / [id number] C: 05/18/2007 rosa documented in this encounter Plan of Treatment Not on filedocumented as of this encounter Visit Diagnoses Not on filedocumented in this encounter"
--- OUTSIDE RECORDS SUMMARY | ~2019-11-18 | XMS | Clinical Summary ---
Demographics + + + | Address | [address] | | | [place] [address] | + + + | Home Phone | | + + + | Preferred Language | Unknown | + + + | Marital Status | Single | + + + | Pentecostal Affiliation | BAP | + + + [...] Team Providers + +------+ + | Care Optomechanical Technician Name | Role | Phone | + +------+ + | No Pcp Per Patient | PCP | Unavailable | + +------+ + Source Comments ASHUTOSH is fully live on both [facility] and [facility]Patient.[facility] Allergies Not on File Medications + + [...] | | | | vaccination (#1) | 0 | | | + + +-------+ + [...] + +--------+ | MEDICARE | MEDICA | [id number] | 04/30/19 | [phone] | [address] | [address] | | | RE A & | | 08-Pre | [address] | [address] | re | | | B | | sent | | [place], [place] | | | | | | | | [address] | | + +--------+ +--------+ + +--------+ | [employer] MED[employer] | [employer] | [id number] | 10/31/19 | | | Medica | [...] | | | 0 (Home) | [place] [address] | + +--------+ +--------+ + +"
--- OUTSIDE RECORDS SUMMARY | ~2019-11-18 | XMS | Encounter Summary ---
Demographics + + + | Address | [address] | | | [place] [address] | + + + | Home Phone | | + + + | Preferred Language | Unknown | + + + | Marital Status | Single | + + + | Quaker Affiliation | BAP | + + + [...] Team Providers + +------+ + | Care Plate Molder Name | Role | Phone | + [...] | | | | cribed | | [facility] | | | | | | [place] [address] | | | | | | [phone] | | +--------+ + + + + [...] Bina Harrington - 05/18/2007 9:27 AM PDT [id number] 05/12/19 08 [id number] FROILAN JUAREZ [id number] Date: 05/12/2007 Patient: Jairo Theodore MR# [id number] The patient called to say that he is not able to keep his appointment on May 16, 2007, due to transportation issues. The patient cannot afford gas from [employer]. He states he is doing well. His incision line is without erythema, edema, or exudate. He is having no pain and not requiring any oxycodone. He is in the process of finding a PCP. He does have a 6-month refill of his metoprolol which he is taking. Bina Harrington, N.P. / [id number] / [id number] / [id number] / [id number] C: 05/18/2007 rosa documented in this encounter Plan of Treatment Not on filedocumented as of this encounter Visit Diagnoses Not on filedocumented in this encounter"
--- OUTSIDE RECORDS SUMMARY | ~2019-11-18 | XMS | Encounter Summary ---
Demographics + + + | Address | [address] | | | [place] [address] | + + + | Home Phone [...] Team Providers + +------+ + | Care Potato Chip Processing Supervisor Name | Role | Phone | + +------+ + PCP | Unavailable | + +------+ + Encounter Details +--------+ + + + + | Date | Type | Department | Care Team | Description | +--------+ + + + + | 11/16/ | Hospital | [facility] GENER[facility] IP | Conversion | Pain | | 2017 | Encounter | CONVERSION DEP [address] | Transaction, | | | | | [address] | Provider Unknown | | | | | [place] | | | | | | [address] | (Fax) | | | | | [phone] | | | +--------+ + + + [...] [place] | | | | | | [address] | | | | | | | | +--------+ + + + + | 02/06/ | Office | Vascular Surgery | Ricci De León DNP | | | 2019 | Visit | | [address] | | | | | | [place] | | | | | | [address] | | | | | | | | | | | | Magdiel Arteaga MD | | | | | | [address] | | | | | | [facility] | | | | | | [place] [address] | | | | | | [phone] | | | | | | | [...]
--- OUTSIDE RECORDS SUMMARY | ~2019-11-18 | XMS | Encounter Summary ---
Demographics + + + | Address | [address] | | | [place] [address] | + + + | Home Phone [...] + + | Author | [facility] | + + + | Organization | [facility] | + + + | Address | Unknown | + + + | Phone | Unavailable | + + + Support + + +---------+ + | Name | Relationship | Address | Phone | + + +---------+ + | Lele Conley | ECON | Unknown | | + + +---------+ + Care Team Providers + +------+ + | Care Admin Secretary Name | Role | Phone | + [...] + + | 11/17/ | Emergency | [facility] Emergency | Cristhian Mayer, | | | 2016 | | Department [address] | [address] [facility] | | | | | [address] | [facility] | | | | | [facility] | [place], [place] | | | | | [place], [place] | [address] | | | | | [address] | [phone] | | | | | [phone] | | | +--------+ + + + [...] per ref pt [facility] MCElectronically signed by Joanna Vuong at 10:58 PM [facility] Jojo Ayers - 11/16/2016 8:48 PM PDTHOLD-referring exp jorge placement elsewhere due to delays. Will call back to update if bed found elsewhere. E lectronically signed by Jojo Adams at 11/16/2016 8:48 PM PDTFormerly [facility] AdamsJjoo - 11/16/2016 8:20 [address] PDTSt Hiren calling [...] [facility] transfer [facility] Carlie Mejia - 11/16/2016 5:49 PM [...] from transferring tonight. Paged group 18. omm [place] - Carlie Mcdowell - 11/16/2016 5:[address] [place] (Colorectal). [place] [facility] signed by Carlie Lincoln at 11/16/2016 5:45 PM PDTdocumented in this encounter Plan of Treatment Not on filedocumented as of this encounter Visit Diagnoses Not on filedocumented in this encounter"
--- OUTSIDE RECORDS SUMMARY | ~2019-11-18 | XMS | Encounter Summary ---
Demographics + + + | Address | [address] | | | [place] [address] | + + + | Home Phone | | + + + | Preferred Language | Unknown | + + + | Marital Status | Single | + + + | Restorationism Affiliation | [id number] | + + + | Race | White | + + + | Ethnic Group | Not or | + + + Author + + + | Author | [facility] | | | and [place] | + + + | Organization | [facility] | | [...] Team Providers + +------+ + | Care Bingo Usher Name | Role | Phone | + [...] | | | | | | sm ([facility]) | MD Alissa [address] | | | | | | Cellulitis | [address] | | | | | | of right | [place], [place] | | | | | | foot | [phone] | | | | | | Thrombosis | Phone: | | | | | | of | [phone] | | | | | | femoral-femo | Fax: | | | | | | ral bypass | [phone] | | | | | | graft ([facility]) | | | | | [...] + + | 10/02/ | Hospital | [facility] | Jairo Renner MD | Pseudoaneurysm ([facility]) | | 2019 - | Encounter | [facility] | [address] | right aorto femoral | | | | [address] | [place] [address] | bypass (Primary | | 10/15/ | | [place], [place] | [phone] | Dx); Peripheral | | 2019 | | [address] | | arterial disease | | | | [phone] | Latoya Oh DO | ([facility]); | | | | | [address] | Pseudoaneurysm | | | | | [place] [address] | ([facility]); Peripheral | | | | | [phone] | arterial disease | | | | | | ([facility]); Cellulitis of | | | | | Chyna Shook MD | right foot; | | | | | [address] | Thrombosis of | | | | | [place] [address] | femoral-femoral | | | | | [phone] | bypass graft (HCC); | | | | | | Post-operative pain | | | | | Tera Vázquez | | | | | | Jose Castañeda MD [address] | | | | [address] | | | | | | [place] [address] | | | | | | [phone] | | | | | | | | | | | | Mundo Pack | | | | | | Poli Powell MD [address] | | | | [address] [place], [place] | | | | | | [address] | | | | | | | [...] GRAFT FEMORAL-POPLITEAL (Bilateral) ANGIOGRAM - EXTREMITY BILATERAL (86071) (Bilateral) Chief Complaint: No chief complaint on [...] who was admitted on 10/03/2019 Transfer from [facility] with bilateral hip and pelvic [...] have wound check in 2 weeks wit [facility] to provide transportation, continue with aspirin 81 mg daily, Plavix 75 mg daily, atorv astatin 40 mg daily. Active Problems: Alcohol abuse/ Tobacco abuse advised to stop smoking and drinking Cellulitis of right foot has been completely treated with Augmentin while in the hospital Discharge Information: Follow up: Teresita Bob MD [address] [place] [id number] Follow up for Home health Wound Care ZULY GRIFFIN [address] [address] Follow up Wound Care and Physical Therapy [...] you recover. Don t drive for at [id number] after your surgery or while you are [...] better overnight Chest pain or trouble breathing [employer] last reviewed this educational content on 11/29/201819994102-8140 [employer]. [address] [place] [address]. All righ ts reserved. This information is [...] of developing AAA decreases. To learn more Smokefree.gov/ftdb-iq-nk-expert National Cancer [place] Smoking Quitline:774-78R-FAIC (822-179-5944) [employer] last reviewed this educational content on 12/30/201819990656-7443 [employer]. [address] [place] [address]. All righ ts reserved. This information is [...] find a support program: Free national quitline 692-QQWJ-XZH (987-948-1874) [facility] quit-smoking programs [employer] 921-590-2801 [employer] 908-791-1668 Support at home is important too. Family and friends can offer praise and reassurance. If t he smoker in your life finds it hard to quit, encourage them to keep trying. Try aexo-jcq-neqyobn medicine Nicotine replacement therapymay make iteasier to [...] to quit smoking, try these resources: www.cdc.gov/tobacco/quit_smoking/ 657-VQVB-NCV (228-312-8314) www.smokefree.gov 673-60P-DXDZ (986-057-7314) www.lung.org/stop-smoking/ 800-LUNGUSA (162-080-9192) [employer] last reviewed this educational content on 01/29/201919991384-6515 [employer], [employer]. [address] [place] [address], [place] [address]. All righ ts reserved. This information is [...] PA- C - 10/16/2019 7:20 AM PDT [facility] Service: Vascular Surgery Progress Note Hospital Day: LOS: 13 days Post-Op Day: 11/06 SUBJECTIVE Patient Summary: The patient is a 59 y.o. male with significant past medical history of tobacco abuse, HTN, CAD, history of alcohol abuse who presented to [facility] with com plaints of cellulitis of right leg as well as enlarging pseudoaneurysm of right EGG BREAKER. He unde rwent aortobifemoral bypass in 1999. [...] scan which revealed enlargement of known right EGG BREAKER pseudoaneurysm. He was transferred to [facility] for evaluation and Vascular was consulted for [...] importance of following up with our office alf. Still recommend discharge ho me with assist [...] outpatient. Disposition: Inpatient Code Status: Full Michael Aebl PA-C 10/16/2019 uGerard bhagat RN - 10/15/2019 6:52 PM PDTA/O, AUGUSTUS removed today, wounds less oozy today, possible d/ c tomorrow Electronically signed by: Nigel Starkey RN 10/15/2019 6:53 PM PDT undo Pack MD - 10/15/2019 10:30 AM PDT . Jairo Theodore [id number] Hospital Day: 12 SUBJECTIVE Events Overnight: Patient [...] been in touch with his Merrill, Lele [phone] and he did not want me to [...] and management as well as Computerized Physician Software Technical Lead. Dictation software, Qzzr, used which may contain error for similar sounding words even af ter review. Portions of this chart may have been copied from previous notes for continuity of care. Mundo Pack MD, FACP, FAAP 10/15/2019 il son, Chelsi JUICE Hebert - 10/15/2019 8:47 AM PDT [facility] Service: Vascular Surgery Progress Note [...] history of alcohol abuse who presented to [facility] with com plaints of cellulitis of right leg as well as enlarging pseudoaneurysm of right EGG BREAKER. He unde rwent aortobifemoral bypass in 1999. [...] scan which revealed enlargement of known right EGG BREAKER pseudoaneurysm. He was transferred to [facility] for evaluation and Vascular was consulted for [...] with any neurovascular changes. [facility] with management of this patient. [...] - 10/14/2019 9:23 AM PDT Jairo Theodore [id number] Hospital Day: 11 SUBJECTIVE Events Overnight: Patient [...] been in touch with his Merrill, Lele [phone] and he did not want me to [...] and management as well as Computerized Physician Software Technical Lead. Dictation software, Qzzr, used which may contain error for similar sounding words even af ter review. Portions of this chart may have been copied from previous notes for continuity of care. Mundo Pack MD, FACP, FAAP 10/14/2019 il son, Chelsi HebertJUICE - 10/14/2019 8:44 AM PDT [facility] Service: Vascular Surgery Progress Note [...] history of alcohol abuse who presented to [facility] with com plaints of cellulitis of right leg as well as enlarging pseudoaneurysm of right EGG BREAKER. He unde rwent aortobifemoral bypass in 1999. [...] scan which revealed enlargement of known right EGG BREAKER pseudoaneurysm. He was transferred to [facility] for evaluation and Vascular was consulted for [...] 1.7 Estimated Energy Needs Energy Calorie Requirements: 0715-5003(28-32 kcal/kg per 54.3 kg admit wt ) [...] PA- C - 10/13/2019 10:33 AM PDT [facility] Service: Vascular Surgery Progress Note [...] history of alcohol abuse who presented to [facility] with com plaints of cellulitis of right leg as well as enlarging pseudoaneurysm of right EGG BREAKER. He unde rwent aortobifemoral bypass in 1999. [...] scan which revealed enlargement of known right EGG BREAKER pseudoaneurysm. He was transferred to [facility] for evaluation and Vascular was consulted for [...] different from t wyatt original. Jairo Theodore [id number] Hospital Day: 10 SUBJECTIVE Events Overnight: Patient [...] been in touch with his Merrill, Lele [phone] and he did not want me to [...] and management as well as Computerized Physician Software Technical Lead. Dictation software, Qzzr, used which may contain error for similar [...] different from the orig inal. Jairo Theodore [id number] Hospital Day: 9 SUBJECTIVE Events Overnight: Patient [...] been in touch with his Merrill, Lele [phone] and he did not want me to [...] and management as well as Computerized Physician Software Technical Lead. Dictation software, Qzzr, used which may contain error for similar sounding words even af ter review. Portions of this chart may have been copied from previous notes for continuity of care. Mundo Pack MD, FACP, FAAP 10/12/2019 il son, Chelsi Hebert, JUICE - 10/12/2019 9:17 AM PDT [facility] Service: Vascular Surgery Progress Note [...] history of alcohol abuse who presented to [facility] with com plaints of cellulitis of right leg as well as enlarging pseudoaneurysm of right EGG BREAKER. He unde rwent aortobifemoral bypass in 1999. [...] scan which revealed enlargement of known right EGG BREAKER pseudoaneurysm. He was transferred to [facility] for evaluation and Vascular was consulted for [...] Color, UA YELLOW Clarity, Urine CLEAR Specific Barry, Urine 1.008 1.002 - 1.030 Leukocyte esterase, [...] BANK. BLOOD BANK COMMENT Testing performed at [facility];[address] [place] [address] Type and Screen Collection Time: 10/12/19 7:52 AM Result Value Ref Range ABO Rh A POSITIVE Antibody Screen NEGATIVE BB BAND [id number] BB BAND Testing performed at [facility];[address] [place] [address] UNIT # [id number] Product Code LEUKODEPLETED PC Unit Division 00 Unit Status ALLOCATED Transfusion Status OK TO TRANSFUSE CROSSMATCH RESULT COMPATIBLE UNIT # [id number] Product Code LEUKODEPLETED PC Unit Division 00 [...] to chair with feet elevated. Please call [facility] any neurovascular changes. Appreciate hospitalitis assistance [...] different from the origina smooth Jairo Theodore [id number] Hospital Day: 8 SUBJECTIVE Events Overnight: Patient [...] right to left femoral to femoral artery [facility] with 8 mm PTFE. Continue with postop [...] been in touch with his Merrill, Lele [phone] and he did not want me to [...] and management as well as Computerized Physician Software Technical Lead. Dictation software, Qzzr, used which may contain error for similar sounding words even af ter review. Portions of this chart may have been copied from previous notes for continuity of care. Mundo Pack MD, FACP, FAAP 10/11/2019 il son, Chelsi Hebert, JUICE - 10/11/2019 6:45 AM PDT [facility] Service: Vascular Surgery Progress Note [...] history of alcohol abuse who presented to [facility] with com plaints of cellulitis of right leg as well as enlarging pseudoaneurysm of right EGG BREAKER. He unde rwent aortobifemoral bypass in 1999. [...] scan which revealed enlargement of known right EGG BREAKER pseudoaneurysm. He was transferred to [facility] for evaluation and Vascular was consulted for [...] PO medications. Thank You, Rachel Cifuentes, PharmD, [facility] 10/10/19 11:59 AM PDT rlene Lamar P A-C - 10/10/2019 11:36 AM PDT [facility] Service: Vascular Surgery Progress Note [...] history of alcohol abuse who presented to [facility] with com plaints of cellulitis of right leg as well as enlarging pseudoaneurysm of right EGG BREAKER. He unde rwent aortobifemoral bypass in 1999. [...] scan which revealed enlargement of known right EGG BREAKER pseudoaneurysm. He was transferred to [facility] for evaluation and Vascular was consulted for [...] might be different from the or iginal. [facility] Service: Ditching Machine Engineer Progress Note Jairo Theodore 59 y.o. Hospital [...] He was farnsworth sferred on 10/03/2019 from [facility] for right foot swelling and increase [...] procedures. Tyler Elias MD 10/10/2019 Dictation software, Qzzr, was used which may contain error with similar sound words even after review. Portions of this chart may have been copied from previous notes for continuity of care. Daniella Arias RN - 10/09/2019 10:20 AM PDTFamily/ home care liaison updated by pt. Chelsi Orta PA-C - 10/09/2019 7:08 AM PDT [facility] Service: Vascular Surgery Progress Note [...] history of alcohol abuse who presented to [facility] with com plaints of cellulitis of right leg as well as enlarging pseudoaneurysm of right EGG BREAKER. He unde rwent aortobifemoral bypass in 1999. [...] scan which revealed enlargement of known right EGG BREAKER pseudoaneurysm. He was transferred to [facility] for evaluation and Vascular was consulted for [...] Gr MD - 10/09/2019 1:28 AM PDT [facility] Service: Ditching Machine Engineer Progress Note Jairo Theodore 59 y.o. Hospital [...] He was farnsworth sferred on 10/03/2019 from [facility] for right foot swelling and increase [...] procedures. Julian Gr MD 10/09/2019 Dictation software, Qzzr, was used which may contain error with [...] by vascular surgery. R eport given to CHEF & OWNER. Pt safely transferred to room 82770. Incisions and dressings were teresa an and dry. Post tib and pedal pulses dopplerable. JADA SHINE RN Chyna Rashid MD - 10/08/2019 4:07 PM PDT [facility] Service: Hospitalist Progress Note Hospital Day: LOS: 5 days SUBJECTIVE Patient Summary: Mr. Theodore is a 59 yr old man active smoker 1ppday with alcohol abuse, hx of PAD, s/p right aorto bifemoral bypass in 1999 complicated by pseudoaneurysm, s/p revision, was transferred from [facility] ED for right foot swelling and [...] Rashid MD - 10/07/2019 3:55 PM PDT [facility] Service: Hospitalist Progress Note Hospital Day: LOS: 4 days SUBJECTIVE Patient Summary: Mr. Theodore is a 59 yr old man active smoker 1ppday with alcohol abuse, hx of PAD, s/p right aorto bifemoral bypass in 1999 complicated by pseudoaneurysm, s/p revision, was transferred from [facility] ED for right foot swelling and [...] A POSITIVE Antibody Screen NEGATIVE BB BAND FINANCE CLERK 0630 BB BAND Testing performed at [facility];[address] [place] [address] UNIT # [id number] Product Code LEUKODEPLETED PC Unit Division 00 Unit Status ISSUED Transfusion Status OK TO TRANSFUSE CROSSMATCH RESULT COMPATIBLE UNIT # [id number] Product Code LEUKODEPLETED PC Unit Division 00 Unit Status ISSUED Transfusion Status OK TO TRANSFUSE CROSSMATCH RESULT COMPATIBLE UNIT # [id number] Product Code LEUKODEPLETED PC Unit Division 00 Unit Status ALLOCATED Transfusion Status OK TO TRANSFUSE CROSSMATCH RESULT COMPATIBLE UNIT # [id number] Product Code LEUKODEPLETED PC Unit Division 00 Unit Status ALLOCATED Transfusion Status OK TO TRANSFUSE CROSSMATCH RESULT COMPATIBLE Red Blood Cells (PRBC) - Crossmatch and Hold Result Value Ref Range Product Code RED CELL GROUP Units ordered 2 BLOOD BANK COMMENT ORDER RECEIVED IN BLOOD BANK. BLOOD BANK COMMENT Testing performed at [facility];[address] [place] [address];[place] [address] POC ISTAT, CG8, Arterial Result Value Ref [...] BANK. BLOOD BANK COMMENT Testing performed at [facility];[address] [place] [address];[place] [address] POC ISTAT, CG8, Arterial Result Value Ref [...] Milian PA-C - 10/07/2019 7:08 AM PDT [facility] Service: Vascular Surgery Progress Note Hospital Day: LOS: 4 days Post-Op Day: * No surgery date entered * SUBJECTIVE Patient Summary: The patient is a 59 y.o. male with significant past medical history of tobacco abuse, HTN, CAD, history of alcohol abuse who presented to [facility] with com plaints of cellulitis of right leg as well as enlarging pseudoaneurysm of right EGG BREAKER. He unde rwent aortobifemoral bypass in 1999. [...] scan which revealed enlargement of known right EGG BREAKER pseudoaneurysm. He was transferred to [facility] for evaluation and Vascular was consulted for [...] A POSITIVE Antibody Screen NEGATIVE BB BAND FINANCE CLERK 0630 BB BAND Testing performed at [facility];[address] [place] [address];[place] [address] UNIT # [id number] Product Code LEUKODEPLETED PC Unit Division 00 Unit Status ALLOCATED Transfusion Status OK TO TRANSFUSE CROSSMATCH RESULT COMPATIBLE UNIT # [id number] Product Code LEUKODEPLETED PC Unit Division 00 Unit Status ALLOCATED Transfusion Status OK TO TRANSFUSE CROSSMATCH RESULT COMPATIBLE Red Blood Cells (PRBC) - Crossmatch and Hold Collection Time: 10/07/19 6:30 AM Result Value Ref Range Product Code RED CELL GROUP Units ordered 2 BLOOD BANK COMMENT ORDER RECEIVED IN BLOOD BANK. BLOOD BANK COMMENT Testing performed at [facility];[address] [place] [address];[place] [address] PROBLEM LIST Principal Problem: Pseudoaneurysm right aorto [...] Shook MD - 10/06/2019 10:34 AM PDT [facility] Service: Hospitalist Progress Note Hospital Day: LOS: 3 days SUBJECTIVE Patient Summary: Mr. Theodore is a 59 yr old man active smoker 1ppday with alcohol abuse, hx of PAD, s/p right aorto bifemoral bypass in 1999 complicated by pseudoaneurysm, s/p revision, was transferred from [facility] ED for right foot swelling and [...] Crum PA-C - 10/06/2019 9:32 AM PDT [facility] Service: Vascular Surgery Progress Note Hospital Day: LOS: 3 days Post-Op Day: * No surgery date entered * SUBJECTIVE Patient Summary: The patient is a 59 y.o. male with significant past medical history of tobacco abuse, HTN, CAD, history of alcohol abuse who presented to [facility] with com plaints of cellulitis of right leg as well as enlarging pseudoaneurysm of right EGG BREAKER. He unde rwent aortobifemoral bypass in 1999. [...] scan which revealed enlargement of known right EGG BREAKER pseudoaneurysm. He was transferred to [facility] for evaluation and Vascular was consulted for [...] Rashid MD - 10/05/2019 12:14 PM PDT [facility] Service: Hospitalist Progress Note Hospital Day: LOS: 2 days SUBJECTIVE Patient Summary: Mr. Theodore is a 59 yr old man active smoker 1ppday with alcohol abuse, hx of PAD, s/p right aorto bifemoral bypass in 1999 complicated by pseudoaneurysm, s/p revision, was [facility] for right foot swelling and increasing [...] Crum PA-C - 10/05/2019 8:18 AM PDT [facility] Service: Vascular Surgery Progress Note Hospital Day: LOS: 2 days Post-Op Day: * No surgery date entered * SUBJECTIVE Patient Summary: The patient is a 59 y.o. male with significant past medical history of tobacco abuse, HTN, CAD, history of alcohol abuse who presented to [facility] with com plaints of cellulitis of right leg as well as enlarging pseudoaneurysm of right EGG BREAKER. He unde rwent aortobifemoral bypass in 1999. [...] scan which revealed enlargement of known right EGG BREAKER pseudoaneurysm. He was transferred to [facility] for evaluation and Vascular was consulted for [...] and open repair for his enlarging right EGG BREAKER pseudoaneurysm. He will need r etroperitoneal exposure [...] Rashid MD - 10/04/2019 9:15 AM PDT [facility] Service: Hospitalist Progress Note Hospital Day: LOS: 1 day SUBJECTIVE Patient Summary: Mr. Theodore is a 59 yr old man active smoker 1ppday with alcohol abuse, hx of PAD, s/p right aorto bifemoral bypass in 1999 complicated by pseudoaneurysm, s/p revision, was [facility] for right foot swelling and increasing [...] LYTY 0809 BB BAND Testing performed at [facility];[address] [place] [address];[place] [address] ECG 12 lead Result Value Ref Range [...] check if blood cultures were taken at [facility] Prn pain medication Pseudoaneurysm right femoral [...] might be different from t he original. [facility] Service: Hospitalist Admission History & [...] who p resents as a transfer from [facility] ED for pseudoaneurysm of the right groin and celluli tis of the RLE. Per patient right pseudoaneurysm of the right groin has been getting bigger for at least a year. Right foot swelling for 5 days. Patient [facility] but this time [...] LYTY 0809 BB BAND Testing performed at [facility];[address] [place] [address];[place] [address] ECG 12 lead Result Value Ref Range INTERPRETATION TEXT Not Confirmed IMAGING No orders to display EKG at 2310: NSR, VR 72, Qtc 455. Data from [facility] -Ultrasound impression: 6.3 x 5.1 [...] delirium tremens, seizures from withdrawals or withdrawals -[facility] protocol initiated Tobacco abuse: -Quit smoking today smoke a pack of cigarettes per day -Nicotine patch Hypokalemia GI and DVT prophylaxis Code Status: Full Code Dictation software, [employer], used which may contain errors for similar [...] this note might be different from the [facility] Service: Ditching Machine Engineer Initial Consult Note Jairo Theodore 59 y.o. [...] was transf erred 5 days ago from [facility] for right foot swelling and increase [...] ENDARTERECTOMY FEMORAL; Surgeon: Magdiel Arteaga MD; Location: [facility] MAIN OR FEMORAL-FEMORAL BYPASS GRAFT N/A 10/07/2019 Procedure: BYPASS GRAFT FEMORAL-FEMORAL; Surgeon: Magdiel Arteaga MD; Location: [facility] MAIN OR OTHER SURGICAL HISTORY Right 10/07/2019 Procedure: REPAIR PSEUDOANEURYSM- FEMORAL; Surgeon: Magdiel Arteaga MD; Location: [facility] GABI N OR [...] file Gets together: Not on file Attends taoism service: Not on file Active member of [...] PDTAssociated Order(s): PROVIDER TO PROVIDER CONSUL T [facility] Service: Vascular Surgery Initial Consult Note Date of Admission: 10/03/2019 Date of Consultation: 10/04/2019 Reason for Consultation: Pseudoaneurysm of right EGG BREAKER Primary Care Physician: No Physician on file History Obtained From: Patient, chart review Code Status: Full Code CHIEF COMPLAINT: Right foot swelling and pain; Enlarging right femoral pseudoaneurysm HISTORY OF PRESENT ILLNESS The patient is a 59 y.o. male with significant past medical history of tobacco abuse, HTN, CAD, history of alcohol abuse who presented to [facility] with complaints of cellulitis o f right leg as well as enlarging pseudoaneurysm of right EGG BREAKER. He underwent aortobifemoral by pass in 1999. [...] which reveal ed enlargement of known right EGG BREAKER pseudoaneurysm. He was transferred to [facility] for evaluation and Vascular was consulted for [...] sodium chloride 0.9% 100 mL/hr at 10/03/19 8825 PRN Medications acetaminophen, calcium carbonate, LORazepam, melatonin, [...] - The patient was transferr ed to [facility] for evaluation of his enlarging pseudoaneurysm, which has been the same size for the last year he reports. [facility] year but was lost to any follow up. He has a complex history regarding his aortic repair and his left si de is chronically occluded per review of [facility] notes and angiographic report from 2007. His C TA with runoff yesterday showed enlarging right femoral pseudoaneurysm. Left EGG BREAKER shows no in flow but reconstitutes. The patient will require revascularization and open repair for his e nlarging right EGG BREAKER pseudoaneurysm. He will need retroperitoneal exposure with [...] Current Outpt/Agency/Support Groups: yes Community Agency Name: [facility] Home Health Disciplines: RN and PT - RN for wound care Equipment Durable Medical Equipment Provider: Home Equipment at Discharge: none Equipment Used at Home: cane, straight, single point Pharmacy Pharmacy/Medication needs: Pt is going to use Rx Pharmacy and will use his Medicare Part D benefits. MOLDER FITTING and Pt called [facility], got him reestablished with the [facility], has not been seen since 2018 . Pt is now assigned to [facility]. MOLDER FITTING p/c with Rudolph at [facility], states they will be calling Pt for follow up appt and will send referral for outpatient wound care. MOLDER FITTING p/c with Carol at [facility], states she has received RI orders in the p ast and will follow up with Dr. Bob's office. MOLDER FITTING provided referral and faxed Home health referral. [...] Bed Mobility Supine to Sit, Level of [place]: modified independent Sit to Supine, Level of [place]: modified independent Safety Issues: decreased use of legs for bridging/pushing Transfers Sit-Stand, Level of [place]: supervised Stand-Sit, Level of [place]: supervised Qao-Zgiwb-Qse, Assistive Device: none Gait Level of [place]: supervised Assistive Device: none Distance (feet): 40 Goals Reflects last filed data and may be from multiple contributors. All Bed Mobility Goal Most Recent Value LTG Status new at 10/09/2019 1108 LTG [place] Level modified independent at 10/09/2019 1108 LTG Assistive Device none at 10/09/2019 1108 All Transfers Goal Most Recent Value LTG Status new at 10/09/2019 1108 LTG [place] Level modified independent at 10/09/2019 1108 LTG Assistive Device 2 wheeled walker (FWW) at 10/09/2019 1108 Gait Goal Most Recent Value LTG Status new at 10/09/2019 1108 LTG [place] Level modified independent at 10/09/2019 1108 LTG Assistive Device 2 wheeled walker (FWW) at 10/09/2019 1108 LTG Distance (feet) 100 at 10/09/2019 1108 Stair Goal Most Recent Value LTG Status new at 10/09/2019 1108 LTG [place] Level modified independent at 10/09/2019 1108 LTG [...] bed rails Supine to Sit, Level of [place]: modified independent Safety Issues: decreased use of legs for bridging/pushing Impairments: ROM decreased, strength decreased Transfers Sit-Stand, Level of [place]: stand by assist, verbal cues required Stand-Sit, Level of [place]: stand by assist, verbal cues required Tit-Aurjm-Scm, Assistive Device: 2 wheeled walker (FWW), none Toilet, Level of [place]: stand by assist, verbal cues required Toilet, Assistive Device: 2 wheeled walker (FWW), grab bars Gait Gait Comments: antalgic gait with flexed trunk posture and intermittent crouch position Level of [place]: stand by assist, verbal cues required(verbal cues [...] LTG Status new at 10/09/2019 1108 LTG [place] Level modified independent at 10/09/2019 1108 LTG Assistive Device none at 10/09/2019 1108 All Transfers Goal Most Recent Value LTG Status new at 10/09/2019 1108 LTG [place] Level modified independent at 10/09/2019 1108 LTG Assistive Device 2 wheeled walker (FWW) at 10/09/2019 1108 Gait Goal Most Recent Value LTG Status new at 10/09/2019 1108 LTG [place] Level modified independent at 10/09/2019 1108 LTG Assistive Device 2 wheeled walker (FWW) at 10/09/2019 1108 LTG Distance (feet) 100 at 10/09/2019 1108 Stair Goal Most Recent Value LTG Status new at 10/09/2019 1108 LTG [place] Level modified independent at 10/09/2019 1108 LTG [...] Bed Mobility Supine to Sit, Level of [place]: minimal assist (75% patient effort) Transfers Sit-Stand, Level of [place]: minimal assist (75% patient effort) Gait Level of [place]: minimal assist (75% patient effort) Assistive Device: [...] LTG Status new at 10/09/2019 1108 LTG [place] Level modified independent at 10/09/2019 1108 LTG Assistive Device none at 10/09/2019 1108 All Transfers Goal Most Recent Value LTG Status new at 10/09/2019 1108 LTG [place] Level modified independent at 10/09/2019 1108 LTG Assistive Device 2 wheeled walker (FWW) at 10/09/2019 1108 Gait Goal Most Recent Value LTG Status new at 10/09/2019 1108 LTG [place] Level modified independent at 10/09/2019 1108 LTG Assistive Device 2 wheeled walker (FWW) at 10/09/2019 1108 LTG Distance (feet) 100 at 10/09/2019 1108 Stair Goal Most Recent Value LTG Status new at 10/09/2019 1108 LTG [place] Level modified independent at 10/09/2019 1108 LTG [...] participation. Pt with an i ncontinent BM. LAB SYSTEMS ANALYST and PT assisting with mobility and pericare. Pt benefits from 1+1 assist due to lines/tubes and having 2 wound vacs. He reports his pain is fairly well controlled, m ostly limited by stiffness in his LEs. Only 1 Augutsus drain remains. Pt still needs min A [...] Transfers Additional Documentation: toilet Sit-Stand, Level of [place]: minimal assist (75% patient effort) Stand-Sit, Level of [place]: minimal assist (75% patient effort) Kdx-Mcjwf-Yit, Assistive Device: 2 wheeled walker (FWW) Toilet, Level of [place]: minimal assist (75% patient effort) Toilet, Assistive Device: 2 wheeled walker (FWW) Safety Issues: loses balance backward, weight-shifting ability decreased, step length decre ased, sequencing ability decreased, balance decreased during turns Impairments: ROM decreased, strength decreased, impaired balance Gait Gait Comments: reduced step length BLE, excessive trunk flexion, reduced weight bearing RLE , avoidance COG over HAN Level of [place]: minimal assist (75% patient effort) Assistive Device: 2 wheeled walker (FWW) Distance (feet): 15x2 Goals Reflects last filed data and may be from multiple contributors. All Bed Mobility Goal Most Recent Value LTG Status new at 10/09/2019 1108 LTG [place] Level modified independent at 10/09/2019 1108 LTG Assistive Device none at 10/09/2019 1108 All Transfers Goal Most Recent Value LTG Status new at 10/09/2019 1108 LTG [place] Level modified independent at 10/09/2019 1108 LTG Assistive Device 2 wheeled walker (FWW) at 10/09/2019 1108 Gait Goal Most Recent Value LTG Status new at 10/09/2019 1108 LTG [place] Level modified independent at 10/09/2019 1108 LTG Assistive Device 2 wheeled walker (FWW) at 10/09/2019 1108 LTG Distance (feet) 100 at 10/09/2019 1108 Stair Goal Most Recent Value LTG Status new at 10/09/2019 1108 LTG [place] Level modified independent at 10/09/2019 1108 LTG [...] Recommendations: 2 wheeled walker (FWW), shower chair, supervisor braiding, sock aide, long handled sponge, long handled [...] cheese snadwhiches since being a t the [facility] despite his chart saying he has [...] bed rails Supine to Sit, Level of [place]: minimal assist (75% patient effort) Sit to Supine, Level of [place]: moderate assist (50% patient effort) Safety Issues: decreased use of legs for bridging/pushing, decreased use of arms for pushin g/pulling Impairments: ROM decreased, strength decreased, postural control impaired, pain Transfers Additional Documentation: sit to/from stand Sit-Stand, Level of [place]: minimal assist (75% patient effort) Stand-Sit, Level of [place]: maximal assist (25% patient effort) Vqo-Tcjoj-Gxs, Assistive Device: 2 wheeled walker (FWW), gait belt Safety Issues: loses balance backward, weight-shifting ability decreased, step length decre ased, sequencing ability decreased, balance decreased during turns Impairments: ROM decreased, strength decreased, impaired balance ROM Comments: WFL Strength Comments: WFL. B sanding supervisor strength 4/5. B UE MMT 4/5 except for biceps 3+/5 Balance Sitting Balance: Static: good balance Sitting Balance: Dynamic: good balance Standing Balance: Static: poor balance Standing Balance: Dynamic: poor balance Goals Reflects last filed data and may be from multiple contributors. LB Dressing Goal Most Recent Value LTG Status new at 10/10/2019 154 LTG [place] Level minimum assist (75% patient effort), set up required at 10/10/20191544 LTG Adaptive Equipment supervisor braiding, sock-aid at 10/10/20191544 Toilet Transfer Goal Most Recent Value LTG Status new at 10/10/2019 154 LTG [place] Level minimum assist (75% patient effort) at [...] at bedside in ICU on turnover by vp care management. Patient stat es he feels better, no [...] bed rails Supine to Sit, Level of [place]: minimal assist (75% patient effort) Transfers Bed-Chair, Level of [place]: minimal assist (75% patient effort) Bjg-Ozpuw-Srp, Assistive Device: 2 wheeled walker (FWW), gait belt Sit-Stand, Level of [place]: minimal assist (75% patient effort), stand by assist Stand-Sit, Level of [place]: minimal assist (75% patient effort), stand by assist Gait Gait Comments: reduced step length BLE, excessive trunk flexion, reduced weight bearing RLE , avoidance COG over HAN Level of [place]: minimal assist (75% patient effort), verbal cues [...] LTG Status new at 10/09/2019 1108 LTG [place] Level modified independent at 10/09/2019 1108 LTG Assistive Device none at 10/09/2019 1108 All Transfers Goal Most Recent Value LTG Status new at 10/09/2019 1108 LTG [place] Level modified independent at 10/09/2019 1108 LTG Assistive Device 2 wheeled walker (FWW) at 10/09/2019 1108 Gait Goal Most Recent Value LTG Status new at 10/09/2019 1108 LTG [place] Level modified independent at 10/09/2019 1108 LTG Assistive Device 2 wheeled walker (FWW) at 10/09/2019 1108 LTG Distance (feet) 100 at 10/09/2019 1108 Stair Goal Most Recent Value LTG Status new at 10/09/2019 1108 LTG [place] Level modified independent at 10/09/2019 1108 LTG [...] Family Contact Information: Name: Lele Conley (Roommate) Bggaheiauaugii signed by PORTILLO Varner at 10/10/2019 10:13 [...] HOB elevated Supine to Sit, Level of [place]: maximal assist (25% patient effort) Safety Issues: decreased use of legs for bridging/pushing, impaired trunk control for bed m obility Impairments: pain, strength decreased, ROM decreased Transfers Additional Documentation: sit to/from stand, bed to/from chair Bed-Chair, Level of [place]: moderate assist (50% patient effort) Yug-Okays-Rnd, Assistive Device: 2 wheeled walker (FWW) Sit-Stand, Level of [place]: minimal assist (75% patient effort) Stand-Sit, Level of [place]: minimal assist (75% patient effort) Krb-Fmxnq-Lwa, Assistive Device: 2 wheeled walker (FWW) Safety [...] LTG Status new at 10/09/2019 1108 LTG [place] Level modified independent at 10/09/2019 1108 LTG Assistive Device none at 10/09/2019 1108 All Transfers Goal Most Recent Value LTG Status new at 10/09/2019 1108 LTG [place] Level modified independent at 10/09/2019 1108 LTG Assistive Device 2 wheeled walker (FWW) at 10/09/2019 1108 Gait Goal Most Recent Value LTG Status new at 10/09/2019 1108 LTG [place] Level modified independent at 10/09/2019 1108 LTG Assistive Device 2 wheeled walker (FWW) at 10/09/2019 1108 LTG Distance (feet) 100 at 10/09/2019 1108 Stair Goal Most Recent Value LTG Status new at 10/09/2019 1108 LTG [place] Level modified independent at 10/09/2019 1108 LTG [...] 1.7 Estimated Energy Needs Energy Calorie Requirements: 2414-7885(28-32 kcal/kg per 54.3 kg admit wt ) [...] progressing Flowsheets (Taken 10/09/2019 1024) Participants: case checker dietitian/nutrition services advanced practice nurse nursing pharmacy [...] started on clear liquid diet. lan of [facility] Viv Santos MSW - 10/09/2019 9:44 AM PDTAttended morning rounds. Pt transferred to ICU post -op for repair of thrombosed fem-fem artery bypass. Progressing. Await PT to julissa and alissa tinajero. Has no PCP per CM note and FS. [facility] lan of [facility] Urszula Garcia RN - 10/09/2019 8:02 [...] PM PDT BRIEF OPERATIVE NOTE [facility] Pt. Name/Age/: Jairo Theodore 59 y.o. 1960 Med. Record Number: [id number] Date of admission: 10/03/2019 Date of Operation/Procedure: [...] disease (HCC) [I73.9] Surgeon: Magdiel Arteaga MD Pneumatic Tool Repairer: Maicol Abel PA-C Anesthesia Provider(s): Anesthesiologist: Orlando Ambriz DO WINK CUTTER OPERATOR: Som Garcia CRNA Anesthesia Type: Anesthesia type not filed in the log. Procedure(s): THROMBECTOMY / EMBOLECTOMY of fem fem bypass BILATERAL BYPASS GRAFT FEMORAL-POPLITEAL WITH 6 MM PTFE ANGIOGRAM - EXTREMITY BILATERAL (17008) Operative Findings: Thrombosed femoral to femoral artery [...] Implant Name Type Inv. Item Serial No. Crop Roller Lot No. LRB No. Used Action GRAFT VAS PROPATEN 6-80MM - [id number] Graft GRAFT VAS PROPATEN 6-80MM [id number] [facility] NA N/A 1 Implanted GRAFT VAS PROPATEN 6-80MM - [id number] Graft GRAFT VAS PROPATEN 6-80MM [id number] [facility] NA N/A 1 Implanted Counts: Instrument, sponge, and needle counts were correct prior to closure and at the con clusion of the case. Complications: None Disposition: The patient was taken to PACU Immediate Post-Operative Condition: Stable Electronically signed by: Magdiel Arteaga MD, 10/08/2019, 2:31 PM PDT p Note - Magdiel Arteaga MD - 10/08/2019 10 :06 AM PDT [facility] OPERATIVE REPORT PATIENT NAME: [...] the femorofemoral bypass. Using 2 CV 6 Pine Knot-Jamie sutures the 6 mm bypass was anastomos [...] astomosis was created with 2 CV 6 Pine Knot-Jamie sutures. Prior to completing the anastomosis the [...] an antibiotic solution. Hemostasis was achieved. 7 Portuguese drains were placed in both groins and [...] Magdiel Arteaga MD Vascular Surgery Dictation software, Qzzr, used which may contain error for similar sounding words even af ter review. Personal communication requested for any clarification. Electronically signed by: Magdiel Arteaga MD, 10/09/2019 10:[address] [facility] lan of Care - Aggie [...] Arteaga MD - 10/07/2019 7:00 PM PDT [facility] OPERATIVE REPORT PATIENT NAME: [...] vanced a wire and placed a 7 Portuguese sheath. We again attempted to select out [...] femoral endarterectomy was performed w ith a [place] elevator. There was good backbleeding from the [...] common femoral endarterectomy was performed using the [place] elevator. After performing the endarterect carlyle there [...] copiously irrigated. There was good hemostasis. 7 Portuguese flat AUGUSTUS drains were placed in both [...] Magdiel Arteaga MD Vascular Surgery Dictation software, Qzzr, used which may contain error for similar sounding words even af ter review. Personal communication requested for any clarification. Electronically signed by: Magdiel Arteaga MD, 10/09/2019 9:[address] [facility] rief Op Note - Magdiel Arteaga MD - 10/07/2019 4:30 PM PDTFormatting of this note might be different from the or iginal. BRIEF OPERATIVE NOTE [facility] Pt. Name/Age/: Jairo Theodore 59 y.o. 1960 Med. Record Number: [id number] Date of admission: 10/03/2019 Date of Operation/Procedure: 10/07/2019 Preoperative Diagnosis: 1. Large right groin pseudoaneurysm 2. Peripheral arterial disease Postoperative Diagnosis: * Pseudoaneurysm (HCC) [I72.9] Surgeon: Magdiel Arteaga MD Pneumatic Tool Repairer: Maicol Abel PA-C Anesthesia Provider(s): Anesthesiologist: Rudolph Lowery MD WINK CUTTER OPERATOR: Neville Rush CRNA Anesthesia Type: General [...] Implant Name Type Inv. Item Serial No. Crop Roller Lot No. LRB No. Used Action GRAFT GORE PROPATEN [id number] - [id number] Graft GRAFT GORE PROPATEN [id number] WL GORE - WLGO NA Right 1 Implanted GRAFT HEMGRD KNIT [id number] - [id number] Graft GRAFT HEMGRD KNIT [id number] [email or web address] - MAQU [id number] Right 1 [...] VSS with one SBP in 170s recheck [id number]. Report given to preop nurse and 0600IVPB [...] and Optimize Oral Intake Flowsheets (Taken 10/05/2019 9695) Oral Nutrition Promotion: calorie dense foods provided Note: Pt tolerating oral liquids well. NPO at midnight. lan of [facility] Oriana Mar RN - 10/04/2019 8:07 [...] chart check and audit complete. lan of [facility] Zuleyka Ramos RN - 10/04/2019 6:55 [...] the bathroom clear of clutter. lan of [facility] Carol Olivares MSW - 10/04/2019 12:52 [...] Notes: Pt resides with his friend in [place]. Pt is independent - no caregiver, home [...] of RLE and enlarging pseudoaneurysm of right EGG BREAKER. Pt scheduled for pseudoaneurysm repair on 10/04. [...] BUN 7* CREA 0.60* Estimated Energy Needs 5157-9253 kcal/day (28-32 kcal/kg per 54.3 kg admit [...] [place] | | | | | | [id number] | | | | | | | | +--------+ + + + + | 02/06/ | Office | Vascular Surgery | Ricci De León DNP | | 2019 | Visit | | [address] | | | | | | [place] | | | | | | [id number] | | | | | | | | | | | | Magdiel Arteaga MD | | | | | | [address] | | | | | | [place] | | | | | | [place] [address] | | | | | | [phone] | | | | | | | [...] Expected: | | | | e | ([facility]) right aorto | 10/23/2019, Expires: | | | | | femoral bypass | 10/15/2020 | + +---------+--------+ + + | CBC w/ Auto | Lab | Routin | Pseudoaneurysm | Expected: | | Differential | | e | ([facility]) right aorto | 10/23/2019, Expires: [...] | Health | Referral | e | ([facility]) right aorto | | | | | | femoral bypass | | | | | | Cellulitis of right | | | | | | foot 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 ([facility]) | | | | | [...] | | 9:22 AM | ([facility]) Peripheral | | | (30889) | | PDT | arterial disease | | | | | | ([facility]) | | + +--------+ + + + | BYPASS GRAFT | | 10/08/2019 | Pseudoaneurysm | | | FEMORAL-POPLITEAL | | 9:22 AM | ([facility]) Peripheral | | | | | PDT | arterial disease | | | | | | ([facility]) | | + +--------+ + + + | THROMBECTOMY / | | 10/08/2019 | Pseudoaneurysm | | | EMBOLECTOMY | | 9:22 AM | ([facility]) Peripheral | | | | | PDT | arterial disease | | | | | | ([facility]) | | + +--------+ + [...] LABORATORY | | | | performed at [facility], [address] | | | [address], | | | | | | [place] [address] | | | | + + + + + + + + | Specimen | + + | Blood | + + + + + + + | Performing | Address | City/State/Zipcode | Phone Number | | Organization | | | | + + + + + | [facility] | [address] | [place] [address] | [phone] | + + + + + Magnesium (10/16/2019 5:11 AM PDT) + + + + + + | Component | Value | Ref Range | Performed | Pathologist | | | | | At | Signature | + + + + + + | Magnesium | 1.7Comment: Testing | 1.7 - 2.4 mg/dL | [facility] | | | | performed at [facility];[address] | | LABORATORY | | | | [address];[place], [place] | | | | | | [address] | | | | + + + + + + + + | Specimen | + + | Blood | + + + + + + + | Performing | Address | City/State/Zipcode | Phone Number | | Organization | | | | + + + + + | [facility] | [address] | [place] [address] | [phone] | + + + + + Potassium (10/16/2019 5:11 AM PDT) + + + + + + | Component | Value | Ref Range | Performed | Pathologist | | | | | At | Signature | + + + + + + | K | 3.0 (L)Comment: Testing | 3.5 - 4.9 | [facility] | | | | performed at [facility];[address] | mmol/L | LABORATORY | | | [address];[place] | | | | | | [address] | | | | + + + + + + + + | Specimen | + + | Blood | + + + + + + + | Performing | Address | City/State/Zipcode | Phone Number | | Organization | | | | + + + + + | [facility] | [address] | [place] [address] | [phone] | + + + + + CBC [...] LABORATORY | | | | performed at [facility], [address] | | [address], | | | | | | [place] [address] | | | | + + + + + + + + | Specimen | + + | Blood | + + + + + + + | Performing | Address | City/State/Zipcode | Phone Number | | Organization | | | | + + + + + | [facility] | [address] [facility] | [place] [address] | [phone] | + + + + + Magnesium (10/15/2019 5:13 AM PDT) + + + + + + | Component | Value | Ref Range | Performed | Pathologist | | | | | At | Signature | + + + + + + | Magnesium | 1.9Comment: Testing | 1.7 - 2.4 mg/dL | [facility] | | | | performed at [facility];[address] | | LABORATORY | | | | [address];[place] | | | | | | [address] | | | | + + + + + + + + | Specimen | + + | Blood | + + + + + + + | Performing | Address | City/State/Zipcode | Phone Number | | Organization | | | | + + + + + | [facility] | [address] | [place] [address] | [phone] | + + + + + Basic [...] | | | | | performed at [facility], [address] | | | | | | [facility], | | | | | | [place] [address] | | | | + + + + + + + + | Specimen | + + | Blood | + + + + + + + | Performing | Address | City/State/Zipcode | Phone Number | | Organization | | | | + + + + + | [facility] | [address] | [place] [address] | [phone] | + + + + + Potassium (10/14/2019 3:28 PM PDT) + + + + + + | Component | Value | Ref Range | Performed | Pathologist | | | | | At | Signature | + + + + + + | K | 3.3 (L)Comment: Testing | 3.5 - 4.9 | [facility] | | | | performed at [facility];[address] | mmol/L | LABORATORY | | | | [address];[place], [place] | | | | | | [address] | | | | + + + + + + + + | Specimen | + + | Blood | + + + + + + + | Performing | Address | City/State/Zipcode | Phone Number | | Organization | | | | + + + + + | [facility] | [address] | [place] [address] | [phone] | + + + + + Magnesium [...] | LABORATORY | | | | [address];[place], [place] | | | | | | [address] | | | | + + + + + + + + | Specimen | + + | Blood | + + + + + + + | Performing | Address | City/State/Zipcode | Phone Number | | Organization | | | | + + + + + | [facility] | [address] | [place] [address] | [phone] | + + + + + Phosphorus (10/14/2019 3:28 PM PDT) + + + + + + | Component | Value | Ref Range | Performed | Pathologist | | | | | At | Signature | + + + + + + | Phosphorus | 1.3 (L)Comment: Testing | 2.3 - 4.8 mg/dL | [facility] | | | | performed at [facility];[address] | | LABORATORY | | | | [address];[place] | | | | | | [address] | | | | + + + + + + + + | Specimen | + + | Blood | + + + + + + + | Performing | Address | City/State/Zipcode | Phone Number | | Organization | | | | + + + + + | [facility] | [address] | [place] [address] | [phone] | + + + + + CBC [...] LABORATORY | | | | performed at [facility], [address] | | | | | [address], | | | | | | [place] [address] | | | | + + + + + + + + | Specimen | + + | Blood | + + + + + + + | Performing | Address | City/State/Zipcode | Phone Number | | Organization | | | | + + + + + | [facility] | [address] | [place] [address] | [phone] | + + + + + Magnesium [...] | LABORATORY | | | | [address];[place], [place] | | | | | | [address] | | | | + + + + + + + + | Specimen | + + | Blood | + + + + + + + | Performing | Address | City/State/Zipcode | Phone Number | | Organization | | | | + + + + + | [facility] | [address] | [place] [address] | [phone] | + + + + + Basic [...] 7.6 (L) | 8.5 - 10.5 | [facility] | | | | | mg/dL | LABORATORY | | + + + + + + | Estimated | >60Comment: GFR <60: | >60 | [facility] | | | GFR | CHRONIC KIDNEY [...] | | | | | | MDRD IDAZ traceable | | | | | | equation.Testing | | | | | | performed at [facility], [address] | | | | | | [facility], | | | | | | [place] [address] | | | | + + + + + + + + | Specimen | + + | Blood | + + + + + + + | Performing | Address | City/State/Zipcode | Phone Number | | Organization | | | | + + + + + | [facility] | [address] | [place] [address] | [phone] | + + + + + Potassium (10/13/2019 11:07 AM PDT) + + + + + + | Component | Value | Ref Range | Performed | Pathologist | | | | | At | Signature | + + + + + + | K | 3.5Comment: Testing | 3.5 - 4.9 | [facility] | | | | performed at [facility];[address] | mmol/L | LABORATORY | | | | [address];[place], [place] | | | | | | [address] | | | | + + + + + + + + | Specimen | + + | Blood | + + + + + + + | Performing | Address | City/State/Zipcode | Phone Number | | Organization | | | | + + + + + | [facility] | [address] | [place] [address] | [phone] | + + + + + Potassium (10/13/2019 4:37 AM PDT) + + + + + + | Component | Value | Ref Range | Performed | Pathologist | | | | | At | Signature | + + + + + + | K | 3.5Comment: Testing | 3.5 - 4.9 | [facility] | | | | performed at [facility];888 | mmol/L | LABORATORY | | | | [address];[place] | | | | | | [address] | | | | + + + + + + + + | Specimen | + + | Blood | + + + + + + + | Performing | Address | City/State/Zipcode | Phone Number | | Organization | | | | + + + + + | [facility] | [address] | [place] [address] | [phone] | + + + + + Magnesium (10/13/2019 4:37 AM PDT) + + + + + + | Component | Value | Ref Range | Performed | Pathologist | | | | | At | Signature | + + + + + + | Magnesium | 1.7Comment: Testing | 1.7 - 2.4 mg/dL | [facility] | | | | performed at [facility];[address] | | LABORATORY | | | | [facility];[place], [place] | | | | | | [address] | | | | + + + + + + + + | Specimen | + + | Blood | + + + + + + + | Performing | Address | City/State/Zipcode | Phone Number | | Organization | | | | + + + + + | [facility] | [address] | [place] [address] | [phone] | + + + + + Basic [...] | >60Comment: GFR <60: | >60 | [facility] | | | GFR | CHRONIC KIDNEY [...] | | | | | | MDRD IDAZ traceable | | | | | | equation.Testing | | | | | | performed at [facility] | | | | | | [facility];[place], [place] | | | | | | [address] | | | | + + + + + + + + | Specimen | + + | Blood | + + + + + + + | Performing | Address | City/State/Zipcode | Phone Number | | Organization | | | | + + + + + | [facility] | [address] | [place] [address] | [phone] | + + + + + Hemoglobin [...] Testing | 39.0 - 50.0 % | [facility] | | | | performed at [facility];[address] | | LABORATORY | | | | [address];[place], [place] | | | | | | [address] | | | | + + + + + + + + | Specimen | + + | Blood | + + + + + + + | Performing | Address | City/State/Zipcode | Phone Number | | Organization | | | | + + + + + | [facility] | [address] | [place] [address] | [phone] | + + + + + Potassium [...] | LABORATORY | | | | [address];[place] | | | | | | [address] | | | | + + + + + + + + | Specimen | + + | Blood | + + + + + + + | Performing | Address | City/State/Zipcode | Phone Number | | Organization | | | | + + + + + | [facility] | [address] | [place] [address] | [phone] | + + + + + Clostridium [...] C. | Negative for toxigenic | | [facility] | | | difficile, | C.difficile.Comment: | | LABORATORY | | | Interp | Testing performed at | | | | | | [facility];[address] | | [address];[place] [address] | | | | + + + + + + + + | Specimen | + + | Stool - Stool | | specimen (specimen) | + + + + + + + | Performing | Address | City/State/Zipcode | Phone Number | | Organization | | | | + + + + + | [facility] | [address] | [place] [address] | [phone] | + + + + + Potassium (10/12/2019 11:02 AM PDT) + + + + + + | Component | Value | Ref Range | Performed | Pathologist | | | | | At | Signature | + + + + + + | K | 3.3 (L)Comment: Testing | 3.5 - 4.9 | [facility] | | | | performed at [facility];888 | mmol/L | LABORATORY | | | | [address];[place] | | | | | | [address] | | | | + + + + + + + + | Specimen | + + | Blood | + + + + + + + | Performing | Address | City/State/Zipcode | Phone Number | | Organization | | | | + + + + + | [facility] | [address] | [place] [address] | [phone] | + + + + + Type [...] + + + | BB BAND | [id number] | | [facility] | | | | | | LABORATORY | | + + + + + + | UNIT # | [id number] | | [facility] | | | | [...] [facility] | | LABORATORY | | | | [address];[place], [place] | | | | | | [address] | | | | + + + + + + | UNIT # | [id number] | | [facility] | | | | [...] | + + + + + | [facility] | [address] | [place] [address] | [phone] | + + + + + Red [...] | [facility] | | | COMMENT | [facility];[address] | | LABORATORY | | | | [address];[place] [address] | | | | + + + + + + + + | Specimen | + + | | + + + + + + + | Performing | Address | City/State/Zipcode | Phone Number | | Organization | | | | + + + + + | [facility] | [address] | [place] [address] | [phone] | + + + + + Magnesium (10/12/2019 4:08 AM PDT) + + + + + + | Component | Value | Ref Range | Performed | Pathologist | | | | | At | Signature | + + + + + + | Magnesium | 1.9Comment: Testing | 1.7 - 2.4 mg/dL | [facility] | | | | performed at [facility];[address] | | LABORATORY | | | | [address];[place] | | | | | | [address] | | | | + + + + + + + + | Specimen | + + | Blood | + + + + + + + | Performing | Address | City/State/Zipcode | Phone Number | | Organization | | | | + + + + + | [facility] | [address] | [place] [address] | [phone] | + + + + + Comprehensive [...] [facility];[address] | | | | | | [facility];[place], [place] | | | | | | [address] | | | | + + + + + + + + | Specimen | + + | Blood | + + + + + + + | Performing | Address | City/State/Zipcode | Phone Number | | Organization | | | | + + + + + | [facility] | [address] | [place] [address] | [phone] | + + + + + CBC [...] | [facility] | | | | NURSING [id number] | | LABORATORY | | | [...] LABORATORY | | | | performed at [facility];[address] | | | | | | [address];[place], [place] | | | | | | [address] | | | | + + + + + + + + | Specimen | + + | Blood | + + + + + + + | Performing | Address | City/State/Zipcode | Phone Number | | Organization | | | | + + + + + | [facility] | [address] | [place] [address] | [phone] | + + + + + Urinalysis [...] - 1.030 | [facility] | | | [place], | | | LABORATORY | | | [...] [place] | | | | | | [address] | | | | + + + [...] | + + + + + | [facility] | [address] | [place] [address] | [phone] | + + + + + Osmolality, Urine (10/11/2019 11:16 AM PDT) + + + + + + | Component | Value | Ref Range | Performed | Pathologist | | | | | At | Signature | + + + + + + | OSMO URINE | 239Comment: Testing | 50 - 1,200 | [facility] | | | | performed at [facility], [address] | mOsm/kg | LABORATORY | | | | [address], | | | | | | [place] [address] | | | | + + + [...] | + + + + + | [facility] | [address] | [place] [address] | [phone] | + + + + + Culture, [...] Special | Testing performed at | | [facility] | | | Requests | [facility];[address] | | LABORATORY | | | | [address];[place] [address] | | | | + + + + + + | RESULT | NO GROWTH 6 DAYS | | [facility] | | | | | | LABORATORY | | + + + + + + | RESULT | Testing performed at | | [facility] | | | | [facility], [address] | | LABORATORY | | | | [place] | | | | | | [id number]: Testing | | | | | | performed at [facility], [address] | | | | | | [place] | | | | | | [address] | | | | + + + + + + + + | Specimen | + + | Blood - Swab of line | | insertion site | | (specimen) | + + + + + + + | Performing | Address | City/State/Zipcode | Phone Number | | Organization | | | | + + + + + | [facility] | [address] | [place] [address] | [phone] | + + + + + XR [...] Procedure Note | + + | Espinoza, [id number] - 10/11/2019 10:42 AM PDT | | [...] Special | Testing performed at | | [facility] | | | Requests | [facility];[address] | | LABORATORY | | | | [address];[place] [address] | | | | + + + + + + | RESULT | NO GROWTH 6 DAYS | | [facility] | | | | | | LABORATORY | | + + + + + + | RESULT | Testing performed at | | [facility] | | | | [facility], [address] [facility] | | LABORATORY | | | | [address], [place] | | | | | | [address]Auzylec: Testing | | | | | | performed at [facility], [address] | | | | | | [address], [place] | | | | | | [address] | | | | + + + + + + + + | Specimen | + + | Blood - Peripheral | | blood specimen | | (specimen) | + + + + + + + | Performing | Address | City/State/Zipcode | Phone Number | | Organization | | | | + + + + + | [facility] | [address] | [place] [address] | [phone] | + + + + + Sodium [...] [place] | | | | | | [address] | | | | + + + + + + + + | Specimen | + + | Blood | + + + + + + + | Performing | Address | City/State/Zipcode | Phone Number | | Organization | | | | + + + + + | [facility] | [address] | [place] [address] | [phone] | + + + + + Osmolality, Serum (10/11/2019 9:30 AM PDT) + + + + + + | Component | Value | Ref Range | Performed | Pathologist | | | | | At | Signature | + + + + + + | Osmolality, | 262 (L)Comment: Testing | 280 - 301 | [facility] | | | Serum | performed at [facility], [address] | mOsm/kg | LABORATORY | | | | [address], | | | | | | [place] [address] | | | | + + + + + + + + | Specimen | + + | Blood | + + + + + + + | Performing | Address | City/State/Zipcode | Phone Number | | Organization | | | | + + + + + | [facility] | [address] | [place] [address] | [phone] | + + + + + Comprehensive [...] 34 | 10 - 65 U/L | [facility] | | | | | | LABORATORY [...] | | | | | | MDRD [facility] traceable | | | | | | equation.Testing | | | | | | performed at [facility];[address] | | | | | | [facility];[place], [place] | | | | | | [address] | | | | + + + + + + + + | Specimen | + + | Blood | + + + + + + + | Performing | Address | City/State/Zipcode | Phone Number | | Organization | | | | + + + + + | [facility] | [address] | [place] [address] | [phone] | + + + + + CBC [...] LABORATORY | | | | performed at [facility];[address] | | | | | | [address];[place] | | | | | | [address] | | | | + + + + + + + + | Specimen | + + | Blood | + + + + + + + | Performing | Address | City/State/Zipcode | Phone Number | | Organization | | | | + + + + + | [facility] | [address] | [place] [address] | [phone] | + + + + + Comprehensive [...] CITY;[address] | | | | | | [facility];[place], [place] | | | | | | [address] | | | | + + + + + + + + | Specimen | + + | Blood | + + + + + + + | Performing | Address | City/State/Zipcode | Phone Number | | Organization | | | | + + + + + | [facility] | [address] | [place] [address] | [phone] | + + + + + Magnesium (10/10/2019 4:16 AM PDT) + + + + + + | Component | Value | Ref Range | Performed | Pathologist | | | | | At | Signature | + + + + + + | Magnesium | 1.8Comment: Testing | 1.7 - 2.4 mg/dL | [facility] | | | | performed at [facility];[address] | | LABORATORY | | | | [address];[place], [place] | | | | | | [address] | | | | + + + + + + + + | Specimen | + + | Blood | + + + + + + + | Performing | Address | City/State/Zipcode | Phone Number | | Organization | | | | + + + + + | [facility] | [address] | [place] [address] | [phone] | + + + + + CBC [...] | LABORATORY | | | | [address];[place], [place] | | | | | | [address] | | | | + + + + + + + + | Specimen | + + | Blood | + + + + + + + | Performing | Address | City/State/Zipcode | Phone Number | | Organization | | | | + + + + + | [facility] | [address] | [place] [address] | [phone] | + + + + + Lactic [...] | LABORATORY | | | | [address];[place] | | | | | | [address] | | | | + + + + + + + + | Specimen | + + | Blood | + + + + + + + | Performing | Address | City/State/Zipcode | Phone Number | | Organization | | | | + + + + + | [facility] | [address] | [place] [address] | [phone] | + + + + + Comprehensive [...] [facility] | | | | | | [facility];[place], [place] | | | | | | [address] | | | | + + + + + + + + | Specimen | + + | Blood | + + + + + + + | Performing | Address | City/State/Zipcode | Phone Number | | Organization | | | | + + + + + | [facility] | [address] | [place] [address] | [phone] | + + + + + Procalcitonin [...] [facility];[address] | | | | | | [address];[place] [address] | | | | + + + + + + + + | Specimen | + + | Blood | + + + + + + + | Performing | Address | City/State/Zipcode | Phone Number | | Organization | | | | + + + + + | [facility] | [address] | [place] [address] | [phone] | + + + + + Phosphorus (10/09/2019 5:10 AM PDT) + + + + + + | Component | Value | Ref Range | Performed | Pathologist | | | | | At | Signature | + + + + + + | Phosphorus | 4.0Comment: Testing | 2.3 - 4.8 mg/dL | [facility] | | | | performed at [facility];[address] | | LABORATORY | | | | [facility];[place], [place] | | | | | | [address] | | | | + + + + + + + + | Specimen | + + | Blood | + + + + + + + | Performing | Address | City/State/Zipcode | Phone Number | | Organization | | | | + + + + + | [facility] | [address] | [place] [address] | [phone] | + + + + + Magnesium (10/09/2019 5:10 AM PDT) + + + + + + | Component | Value | Ref Range | Performed | Pathologist | | | | | At | Signature | + + + + + + | Magnesium | 1.7Comment: Testing | 1.7 - 2.4 mg/dL | [facility] | | | | performed at [facility];[address] | | LABORATORY | | | | [address];[place], [place] | | | | | | [address] | | | | + + + + + + + + | Specimen | + + | Blood | + + + + + + + | Performing | Address | City/State/Zipcode | Phone Number | | Organization | | | | + + + + + | [facility] | [address] | [place] [address] | [phone] | + + + + + CBC [...] [facility] | | | | | | [address];[place], [place] | | | | | | [address] | | | | + + + + + + + + | Specimen | + + | Blood | + + + + + + + | Performing | Address | City/State/Zipcode | Phone Number | | Organization | | | | + + + + + | [facility] | [address] | [place] [address] | [phone] | + + + + + POC [...] [place] | | | | | | [address] | | | | + + + + + + + + | Specimen | + + | | + + + + + + + | Performing | Address | City/State/Zipcode | Phone Number | | Organization | | | | + + + + + | [facility] | [address] | [place] [address] | [phone] | + + + + + Phosphorus (10/08/2019 5:23 PM PDT) + + + + + + | Component | Value | Ref Range | Performed | Pathologist | | | | | At | Signature | + + + + + + | Phosphorus | 3.4Comment: Testing | 2.3 - 4.8 mg/dL | [facility] | | | | performed at [facility];[address] | | LABORATORY | | | | [address];[place], [place] | | | | | | [address] | | | | + + + + + + + + | Specimen | + + | Blood | + + + + + + + | Performing | Address | City/State/Zipcode | Phone Number | | Organization | | | | + + + + + | [facility] | [address] | [place] [address] | [phone] | + + + + + Magnesium (10/08/2019 5:23 PM PDT) + + + + + + | Component | Value | Ref Range | Performed | Pathologist | | | | | At | Signature | + + + + + + | Magnesium | 1.8Comment: Testing | 1.7 - 2.4 mg/dL | [facility] | | | | performed at [facility] | | LABORATORY | | | | [facility];[place], [place] | | | | | | [address] | | | | + + + + + + + + | Specimen | + + | Blood | + + + + + + + | Performing | Address | City/State/Zipcode | Phone Number | | Organization | | | | + + + + + | [facility] | [address] | [place] [address] | [phone] | + + + + + CBC [...] [facility];[address] [place] [address] | | | | | | [address];[place] [address] | | | | + + + + + + + + | Specimen | + + | Blood | + + + + + + + | Performing | Address | City/State/Zipcode | Phone Number | | Organization | | | | + + + + + | [facility] | [address] | [place] [address] | [phone] | + + + + + Basic [...] [facility] | | | | | | [facility];[place], [place] | | | | | | [address] | | | | + + + + + + + + | Specimen | + + | Blood | + + + + + + + | Performing | Address | City/State/Zipcode | Phone Number | | Organization | | | | + + + + + | [facility] | [address] | [place] [address] | [phone] | + + + + + PTT (10/08/2019 5:23 PM PDT) + + + + + + | Component | Value | Ref Range | Performed | Pathologist | | | | | At | Signature | + + + + + + | PTT | 32Comment: Testing | 23 - 32 seconds | [facility] | | | | performed at [facility];[address] | | LABORATORY | | | | [address];[place] | | | | | | [address] | | | | + + + + + + + + | Specimen | + + | Blood | + + + + + + + | Performing | Address | City/State/Zipcode | Phone Number | | Organization | | | | + + + + + | [facility] | [address] | [place] [address] | [phone] | + + + + + EDWARD [...] | LABORATORY | | | | [address];[place] | | | | | | [address] | | | | + + + + + + + + | Specimen | + + | | + + + + + + + | Performing | Address | City/State/Zipcode | Phone Number | | Organization | | | | + + + + + | [facility] | [address] | [place] [address] | [phone] | + + + + + POC [...] | LABORATORY | | | | [address];[place], [place] | | | | | | [address] | | | | + + + + + + + + | Specimen | + + | | + + + + + + + | Performing | Address | City/State/Zipcode | Phone Number | | Organization | | | | + + + + + | [facility] | [address] | [place] [address] | [phone] | + + + + + Basic [...] | >60Comment: GFR <60: | >60 | [facility] | | | GFR | CHRONIC KIDNEY [...] | | | | | | MDRD [facility] traceable | | | | | | equation.Testing | | | | | | performed at [facility], [address] | | | | | | [facility], | | | | | | [place] [address] | | | | + + + + + + + + | Specimen | + + | Blood | + + + + + + + | Performing | Address | City/State/Zipcode | Phone Number | | Organization | | | | + + + + + | [facility] | [address] | [place] [address] | [phone] | + + + + + CBC [...] 0.08Comment: Testing | 0.00 - 0.10 | [facility] | | | Absolute | performed at [facility], [address] | K/uL | LABORATORY | | | | [address], | | | | | | [place] [address] | | | | + + + + + + + + | Specimen | + + | Blood | + + + + + + + | Performing | Address | City/State/Zipcode | Phone Number | | Organization | | | | + + + + + | [facility] | [address] | [place] [address] | [phone] | + + + + + Magnesium (10/08/2019 5:44 AM PDT) + + + + + + | Component | Value | Ref Range | Performed | Pathologist | | | | | At | Signature | + + + + + + | Magnesium | 1.6 (L)Comment: Testing | 1.7 - 2.4 mg/dL | [facility] | | | | performed at [facility];[address] | | LABORATORY | | | | [address];[place], [place] | | | | | | [address] | | | | + + + + + + + + | Specimen | + + | Blood | + + + + + + + | Performing | Address | City/State/Zipcode | Phone Number | | Organization | | | | + + + + + | [facility] | [address] | [place] [address] | [phone] | + + + + + PTT [...] [place] | | | | | | [address] | | | | + + + + + + + + | Specimen | + + | Blood - Artery, | | Radial, Right | + + + + + + + | Performing | Address | City/State/Zipcode | Phone Number | | Organization | | | | + + + + + | [facility] | [address] | [place] [address] | [phone] | + + + + + [facility] [...] [facility] [place] | | | | | | [address] [facility];[place], [place] | | | | | | [address] | | | | + + + + + + + + | Specimen | + + | Blood - Artery, | | Radial, Right | + + + + + + + | Performing | Address | City/State/Zipcode | Phone Number | | Organization | | | | + + + + + | [facility] | [address] | [place] [address] | [phone] | + + + + + Basic [...] | >60Comment: GFR <60: | >60 | [facility] | | | GFR | CHRONIC KIDNEY [...] | | | | | | MDRD IDAZ traceable | | | | | | equation.Testing | | | | | | performed at [facility];[address] | | | | | | [facility];[place], [place] | | | | | | [address] | | | | + + + + + + + + | Specimen | + + | Blood - Artery, | | Radial, Right | + + + + + + + | Performing | Address | City/State/Zipcode | Phone Number | | Organization | | | | + + + + + | [facility] | [address] | [place] [address] | [phone] | + + + + + CBC [...] LABORATORY | | | | performed at [facility];[address] | [address];[place], [place] | | | | | | [address] | | | | + + + + + + + + | Specimen | + + | Blood - Right upper | | arm structure (body | | structure) | + + + + + + + | Performing | Address | City/State/Zipcode | Phone Number | | Organization | | | | + + + + + | [facility] | [address] | [place] [address] | [phone] | + + + + + Surgical [...] attached red-white | | | fibromembranous tissue. International Account Manager sections are submitted in | | | [...] | LABORATORY:The technical component was performed by [facility] | | | [employer] [address] [place] [address] (Line Service Attendant: | | | Asia Rodriguez MD; CLIA# [id number]).Professional interpretation was | | | performed by [employer], [facility], [address] | | | [place] [address] (Line Service Attendant: Solitario | | | Jacky Recio; CLIA#: [id number]). Diagnostician: Asia Rodriguez | | | MDPathologistElectronically Signed 10/10/2019 | | | | | |PERFORMING LABORATORY: | | |The technical component was performed by [employer], [address] [place] [address] (Line Service Attendant: Asia Rodriguez MD; CLIA# [id number]). | | |Professional interpretation was performed by [employer], [facility], [address] [place] [address] (Line Service Attendant: Solitario Recio M.D.; CLIA#: [id number]). | | | | | |Diagnostician: Asia [...] | LABORATORY | | | | [address];[place], [place] | | | | | | [address] | | | | + + + + + + + + | Specimen | + + | | + + + + + + + | Performing | Address | City/State/Zipcode | Phone Number | | Organization | | | | + + + + + | [facility] | [address] | [place] [address] | [phone] | + + + + + Red [...] | [facility] | | | COMMENT | [facility];[address] | | LABORATORY | | | | [address];[place] [address] | | | | + + + + + + + + | Specimen | + + | | + + + + + + + | Performing | Address | City/State/Zipcode | Phone Number | | Organization | | | | + + + + + | [facility] | [address] | [place] [address] | [phone] | + + + + + POC [...] | LABORATORY | | | | [address];[place] | | | | | | [address] | | | | + + + + + + + + | Specimen | + + | | + + + + + + + | Performing | Address | City/State/Zipcode | Phone Number | | Organization | | | | + + + + + | [facility] | [address] | [place] [address] | [phone] | + + + + + POC [...] | LABORATORY | | | | [address];[place], [place] | | | | | | [address] | | | | + + + + + + + + | Specimen | + + | | + + + + + + + | Performing | Address | City/State/Zipcode | Phone Number | | Organization | | | | + + + + + | [facility] | [address] | [place] [address] | [phone] | + + + + + POC [...] 14.3Comment: Testing | 13.7 - 16.7 | [facility] | | | POC | performed at [facility];888 | g/dL | LABORATORY | | | | [address];[place], [place] | | | | | | [address] | | | | + + + + + + + + | Specimen | + + | | + + + + + + + | Performing | Address | City/State/Zipcode | Phone Number | | Organization | | | | + + + + + | [facility] | [address] | [place] [address] | [phone] | + + + + + Red [...] BANK | Testing performed at | | [facility] | | | COMMENT | [facility];[address] | | LABORATORY | | | | Blvd;[place] [address] | | | | + + + + + + + + | Specimen | + + | | + + + + + + + | Performing | Address | City/State/Zipcode | Phone Number | | Organization | | | | + + + + + | [facility] | [address] | [place] [address] | [phone] | + + + + + Magnesium [...] | | LABORATORY | | | | [facility], [place] | | | | | | [address] | | | | + + + + + + + + | Specimen | + + | Blood | + + + + + + + | Performing | Address | City/State/Zipcode | Phone Number | | Organization | | | | + + + + + | [facility] | [address] | [place] [address] | [phone] | + + + + + Type [...] + + + | BB BAND | FINANCE CLERK 0630 | | [facility] | | | | | | LABORATORY | | + + + + + + | UNIT # | [id number] | | [facility] | | | | [...] + + + | UNIT # | [id number] | | [facility] | | | | [...] + + + | UNIT # | [id number] | | [facility] | | | | [...] + + + | UNIT # | [id number] | | [facility] | | | | [...] | LABORATORY | | | | [address];[place] | | | | | | [address] | | | | + + + + + + + + | Specimen | + + | Blood | + + + + + + + | Performing | Address | City/State/Zipcode | Phone Number | | Organization | | | | + + + + + | [facility] | [address] | [place] [address] | [phone] | + + + + + Basic [...] [place] | | | | | | [address] | | | | + + + + + + + + | Specimen | + + | Blood | + + + + + + + | Performing | Address | City/State/Zipcode | Phone Number | | Organization | | | | + + + + + | [facility] | [address] | [place] [address] | [phone] | + + + + + CBC [...] | LABORATORY | | | | [address];[place] | | | | | | [address] | | | | + + + + + + + + | Specimen | + + | Blood | + + + + + + + | Performing | Address | City/State/Zipcode | Phone Number | | Organization | | | | + + + + + | [facility] | [address] | [place] [address] | [phone] | + + + + + Magnesium (10/06/2019 6:27 AM PDT) + + + + + + | Component | Value | Ref Range | Performed | Pathologist | | | | | At | Signature | + + + + + + | Magnesium | 1.6 (L)Comment: Testing | 1.7 - 2.4 mg/dL | [facility] | | | | performed at [facility];[address] | | LABORATORY | | | | [address];[place] | | | | | | [address] | | | | + + + + + + + + | Specimen | + + | Blood | + + + + + + + | Performing | Address | City/State/Zipcode | Phone Number | | Organization | | | | + + + + + | [facility] | [address] | [place] [address] | [phone] | + + + + + Basic [...] | | | | | performed at [facility], [address] | | | | | | [facility], | | | | | | [place] [address] | | | | + + + + + + + + | Specimen | + + | Blood | + + + + + + + | Performing | Address | City/State/Zipcode | Phone Number | | Organization | | | | + + + + + | [facility] | [address] | [place] [address] | [phone] | + + + + + CBC [...] | | | Absolute | performed at [facility], [address] | K/uL | LABORATORY | | | | [address], | | | | | | [place] [address] | | | | + + + + + + + + | Specimen | + + | Blood | + + + + + + + | Performing | Address | City/State/Zipcode | Phone Number | | Organization | | | | + + + + + | [facility] | [address] | [place] [address] | [phone] | + + + + + Magnesium [...] | LABORATORY | | | | [address];[place] | | | | | | [address] | | | | + + + + + + + + | Specimen | + + | Blood | + + + + + + + | Performing | Address | City/State/Zipcode | Phone Number | | Organization | | | | + + + + + | [facility] | [address] | [place] [address] | [phone] | + + + + + Basic [...] | | | | | performed at [facility], [address] | | | | | | [facility], | | | | | | [place] [address] | | | | + + + + + + + + | Specimen | + + | Blood | + + + + + + + | Performing | Address | City/State/Zipcode | Phone Number | | Organization | | | | + + + + + | [facility] | [address] | [place] [address] | [phone] | + + + + + CBC [...] | | | Absolute | performed at [facility], [address] | K/uL | LABORATORY | | | | [place], | | | | | | [place] [address] | | | | + + + + + + + + | Specimen | + + | Blood | + + + + + + + | Performing | Address | City/State/Zipcode | Phone Number | | Organization | | | | + + + + + | [facility] | [address] | [place] [address] | [phone] | + + + + + ECHO [...] Procedure Note | + + | Espinoza, [id number] - 10/04/2019 12:10 PM PDT | | [...] + + | Performing | Address | City/State/[facility] | Phone Number | | Organization | [...] | LABORATORY | | | | [address];[place] | | | | | | [address] | | | | + + + + + + + + | Specimen | + + | Tissue - Both | | anterior nares (body | | structure) | + + + + + + + | Performing | Address | City/State/Zipcode | Phone Number | | Organization | | | | + + + + + | [facility] | [address] | [place] [address] | [phone] | + + + + + Protime INR (10/04/2019 6:12 AM PDT) + + + + + + | Component | Value | Ref Range | Performed | Pathologist | | | | | At | Signature | + + + + + + | INR | 1.1Comment: REFERENCE | | [facility] | | | | RANGE:0.9 - 1.2 [...] [place] | | | | | | [address] | | | | + + + + + + + + | Specimen | + + | Blood | + + + + + + + | Performing | Address | City/State/Zipcode | Phone Number | | Organization | | | | + + + + + | [facility] | [address] | [place] [address] | [phone] | + + + + + Uric Acid (10/04/2019 4:26 AM PDT) + + + + + + | Component | Value | Ref Range | Performed | Pathologist | | | | | At | Signature | + + + + + + | Uric Acid | 3.2Comment: Testing | 3.2 - 8.6 mg/dL | [facility] | | | | performed at [facility], [address] | | LABORATORY | | | | [address], | | | | | | [place] [address] | | | | + + + + + + + + | Specimen | + + | Blood | + + + + + + + | Performing | Address | City/State/Zipcode | Phone Number | | Organization | | | | + + + + + | [facility] | [address] | [place] [address] | [phone] | + + + + + Lipid [...] | | | Calculated | performed at [facility], [address] | | LABORATORY | | | | [address], | | | | | | [place] [address] | | | | + + + + + + + + | Specimen | + + | Blood | + + + + + + + | Performing | Address | City/State/Zipcode | Phone Number | | Organization | | | | + + + + + | [facility] | [address] | [place] [address] | [phone] | + + + + + Comprehensive [...] | >60Comment: GFR <60: | >60 | [facility] | | | GFR | CHRONIC KIDNEY [...] | | | | | | MDRD [facility] traceable | | | | | | equation.Testing | | | | | | performed at [facility], [address] | | | | | | [facility], | | | | | | [place] [address] | | | | + + + + + + + + | Specimen | + + | Blood | + + + + + + + | Performing | Address | City/State/Zipcode | Phone Number | | Organization | | | | + + + + + | [facility] | [address] | [place] [address] | [phone] | + + + + + CBC [...] 0.08Comment: Testing | 0.00 - 0.10 | [facility] | | | Absolute | performed at [facility], [address] | K/uL | LABORATORY | | | | [address], | | | | | | [place] [address] | | | | + + + + + + + + | Specimen | + + | Blood | + + + + + + + | Performing | Address | City/State/Zipcode | Phone Number | | Organization | | | | + + + + + | [facility] | [address] | [place] [address] | [phone] | + + + + + Coronavirus [...] [facility] | | | | | | [address];[place], [place] | | | | | | [address] | | | | + + + + + + + + | Specimen | + + | Tissue - Entire | | nasopharynx (body | | structure) | + + + + + + + | Performing | Address | City/State/Zipcode | Phone Number | | Organization | | | | + + + + + | [facility] | [address] | [place] [address] | [phone] | + + + + + ECG [...] | | | | XIANG HART MD ([id number]) | | | | | | on [...] | | LABORATORY | | | | Blvd;[place] [address] | | | | + + + + + + + + | Specimen | + + | Blood | + + + + + + + | Performing | Address | City/State/Zipcode | Phone Number | | Organization | | | | + + + + + | [facility] | [address] | [place] [address] | [phone] | + + + + + Comprehensive [...] | | | | | | [facility];[place], [place] | | | | | | [address] | | | | + + + + + + + + | Specimen | + + | Blood | + + + + + + + | Performing | Address | City/State/Zipcode | Phone Number | | Organization | | | | + + + + + | [facility] | [address] | [place] [address] | [phone] | + + + + + CBC [...] [place] | | | | | | [address] | | | | + + + + + + + + | Specimen | + + | Blood | + + + + + + + | Performing | Address | City/State/Zipcode | Phone Number | | Organization | | | | + + + + + | [facility] | [address] | [place] [address] | [phone] | + + + + + documented [...] | | | | | | Starting [facility] 10/12/19 at 1744 | | | | [...] | | | | First dose on [facility] 10/10/19 at 1215 | | [...] | | | | | | longer, yldllr-rrp-ouqpd use of | | | | | [...] | | | | | | | munhbv-zme-ginqi use of at least | | | [...] | | | | | | | aicllr-xvl-lgcyi use of at least | | | [...]
--- OUTSIDE RECORDS SUMMARY | ~2019-11-18 | XMS | Encounter Summary ---
Demographics + + + | Address | [address] | | | [place] [address] | + + + | Home Phone | | + + + | Preferred Language | Unknown | + + + | Marital Status | Single | + + + | Christian Affiliation | 1009 | + + + [...] Team Providers + +------+ + | Care Mail Handlers Supervisor Name | Role | Phone | [...] + + | 11/06/ | Telephone | [facility] | Magdiel Arteaga MD | Consult | | 2020 | | VASCULAR SURGERY | [address] | ([place]portation / [place] | | | | [address] | [address] [address] [facility] | Referral ) | | | | E [place], [place] | [place] [address] | | | | | [address] | [phone] | | | | | [phone] | | | +--------+ + + + [...] [place] | | | | | | [address] | | | | | | | | +--------+ + + + + | 02/06/ | Office | Vascular Surgery | Ricci De León DNP | | | 2020 | Visit | | [address] | | | | | | [place] | | | | | | [address] | | | | | | | | | | | | Magdiel Arteaga MD | | | | | | [address] | | | | | | [place] [facility] | | | | | | [place] [address] | | | | | | [phone] | | | | | | | | +--------+ + + + + documented as of this encounter Visit Diagnoses Not on filedocumented in this encounter"
--- OUTSIDE RECORDS SUMMARY | ~2019-11-18 | XMS | Encounter Summary ---
Demographics + + + | Address | [address] | | | [place] [address] | + + + | Home Phone | | + + + | Preferred Language | Unknown | + + + | Marital Status | Single | + + + | Restorationist Affiliation | 1009 | + + + | Race | White | + + + | Ethnic Group | Not or | + + + Author + + + | Author | [facility] | | | and [place] | + + + | Organization | [facility] | | | [...] Team Providers + +------+ + | Care Mill And Coal Transport Operator Name | Role | Phone | [...] | | | | | disease) | [place], [place] | | | | | | ([facility]) | [address] | | | | | | Procedures | Phone: | | | | | | VAS Lwr Ext | [phone] | | | | | | Art Bilat w | Fax: | | | | | | DIANNE Multi | [phone] | | | | | | Lvl [...] | | | | | Peripheral | [address] | [address] [place] | | | | | Arterial | Phone: | [place] | | | | | Disease | [phone] | [address] Phone: | | | | | | Fax: | [phone] | | | | | | [phone] | Fax: | | | | | | | [phone] | +--------+--------+ + + + + Encounter Details +--------+---------+ + + + | Date | Type | Department | Care Team | Description | +--------+---------+ + + + | 10/24/ | Office | [facility] | Ricci De León, CLYDE | PAD (peripheral | | 2020 | Visit | VASCULAR SURGERY | [address] | artery disease) | | | | [address] | [place] | ([facility]) (Primary Dx); | | | | [place] | [address] | S/P aortobifemoral | | | | [address] | | bypass surgery; S/P | | | | [phone] | | femoral-femoral | | | | [...] De León DNP - 10/25/2019 9:30 AM [facility] [address] [place] [id number] Office: [phone] DATE OF VISIT: 10/25/2019 PATIENT NAME: Jairo Theodore : 1960; AGE: 59 y.o.; Sex:M PHONE NUMBER: ; ; PROVIDER: Ricci De León DNP PRIMARY CARE / REFERRING PHYSICIAN: No ref. provider found / Lauren Bob MD / [facility] [address] REASON FOR EVALUATION / CHIEF COMPLAINT: Vascular [...] [place] | | | | | | [address] | | | | | | | | +--------+ + + + + | 02/06/ | Office | Vascular Surgery | Ricci De León DNP | | 2019 | Visit | | [address] | | | | | | [place], [place] | | | | | | [address] | | | | | | | | | | | | Magdiel Arteaga MD | | | | | | [address] | | | | | | [address] [address] | | | | | | [place] [address] | | | | | | [phone] | | | | | | | [...] | | Final Report Signed by: Jacky Jya Shawn Sign Date/Time: | | | 11/08/2019 [...] cm/sec Right | | | lower extremity: CCU NURSE prox: 129 cm/sec CCU NURSE dist: 120 cm/sec | | | Right [...] Procedure Note | + + | Espinoza, [id number] - 11/08/2019 4:04 PM PDT | | [...] | | Right lower extremity: | | CCU NURSE prox: 129 cm/sec | | CCU NURSE dist: 120 cm/sec | | | | [...]
--- OUTSIDE RECORDS SUMMARY | ~2019-11-18 | XMS | Encounter Summary ---
Demographics + + + | Address | [address] | | | [place] [address] | + + + | Home Phone | | + + + | Preferred Language | Unknown | + + + | Marital Status | Single | + + + | Rastafari Affiliation | 1009 | + + + | Race | White | + + + | Ethnic Group | Not or | + + + Author + + + | Author | [facility] | | | and [place] | + + + | Organization | [facility] | | | and [...] Team Providers + +------+ + | Care Contract Negotiator Name | Role | Phone | + [...] | | | | | disease) | [place], [place] | | | | | | ([facility]) | [address] | | | | | | Procedures | Phone: | | | | | | VAS Lwr Ext | [phone] | | | | | | Art Bilat w | Fax: | | | | | | DIANNE Multi | [phone] | | | | | | Lvl | | | +--------+--------+ + + + + Reason for Visit Diagnostic/Screening (Routine) +--------+--------+ + + + + [...] | | | | | disease) | [place], [place] | | | | | | ([facility]) | [address] | | | | | | Procedures | Phone: | | | | | | VAS Lwr Ext | [phone] | | | | | | Art Bilat w | Fax: | | | | | | DIANNE Multi | [phone] | | | | | | Lvl | | | +--------+--------+ + + + + Encounter Details +--------+ + + + + | Date | Type | Department | Care Team | Description | +--------+ + + + + | 11/07/ | Hospital | [facility] | Ricci De León DNP | PAD (peripheral | | 2020 | Encounter | VASCULAR SURGERY | [address] | artery disease) | | | | ULTRASOUND [address] | [address] [place], [place] | ([facility]) | | | | [address] | [address] | | | | | [place], [place] | | | | | | [address] | | | | | | [phone] | | | +--------+ + + + [...] + + + +---------+ + + | cephalexin | | | 0 | 10/24/19 | | | (KEFLEX) 500 mg | | | | 20 | | | capsule | | | | | | + + + +---------+ + + | clopidogrel | Take 1 tablet by | 30 | 1 | 10/17/19 | | | (PLAVIX) 75 mg | mouth Daily. | tablet | | 20 | | | tablet | | | | | | + + + +---------+ + + | | | | 0 | 10/24/19 | | | oxyCODONE-acetaminop | | | | 20 | | | hen (PERCOCET) 5-325 | | | | | | | mg per tablet | | | | | | + + + +---------+ + + | pantoprazole | Take 40 mg by mouth | | 0 | 11/04/19 | | | (PROTONIX) 40 mg | Daily. | | | 20 | | | tablet | | | | | | + + + +---------+ + + | sucralfate | take 1 tablet by | | 0 | 11/04/19 | | | (CARAFATE) 1 g | mouth before meals | | | 20 | | | tablet | and at bedtime | | | | | + + [...] [place] | | | | | | [address] | | | | | | | | +--------+ + + + + | 02/06/ | Office | Vascular Surgery | Ricci De León DNP | | | 2019 | Visit | | [address] | | | | | | [place], [place] | | | | | | [address] | | | | | | | | | | | | Magdiel Arteaga MD | | | | | | [address] | | | | | | [address] [address] | | | | | | [place] [address] | | | | | | [phone] | | | | | | | [...] | MULTI LEVEL | | PDT | ([facility]) | results section. | + +--------+ + + + documented in this encounter Results VAS Lwr Ext Art [...] | | Final Report Signed by: Jacky Jay, Anthony Sign Date/Time: | | | 11/08/2019 4:01 [...] cm/sec Right | | | lower extremity: SECURITY FIELD SUPERVISOR prox: 129 cm/sec SECURITY FIELD SUPERVISOR dist: 120 cm/sec | | | Right [...] Procedure Note | + + | Espinoza, [id number] - 11/08/2019 4:04 PM PDT | | [...] | | Right lower extremity: | | SECURITY FIELD SUPERVISOR prox: 129 cm/sec | | SECURITY FIELD SUPERVISOR dist: 120 cm/sec | | | | [...] and | | arterioles | + + documented in this encounter"
--- OUTSIDE RECORDS SUMMARY | ~2019-11-18 | XMS | Encounter Summary ---
Demographics + + + | Address | [address] | | | [place] [address] | + + + | Home Phone | | + + + | Preferred Language | Unknown | + + + | Marital Status | Single | + + + | Yazdanism Affiliation | 1009 | + + + | Race | White | + + + | Ethnic Group | Not or | + + + Author + + + | Author | [facility] | | | and [place] | + + + | Organization | [facility] | | | [...] Team Providers + +------+ + | Care Assistant Media Planner Name | Role | Phone | + [...] + + | 10/06/ | Anesthesia | [facility] | Rudolph Lowery | | | 2020 | Event | [facility] | MD [address] | | | | | OPER[address] ROOM [address] | [address] | | | | | [address] | [place] [address] | | | | | [place], [place] | [phone] | | | | | [address] | | | | | | [phone] | | | +--------+ + + + [...] +----+---+ + + | | 0 | [place] | | | | 8 | 43-degrees [...] Amanda Tim RN | | IV | dgmj-npm-jnkehn catheter system; | | | | | [...] EVALUATION Jairo Theodore 59 y.o. male 1960 [id number] Procedure(s) REPAIR PSEUDOANEURYSM- FEMORAL (Right ) Cooperates? [...] Rudolph Lowery MD 10/07/2019 4:54 PM PDT PEACEHEALTHElectronically signed by Rudolph Lowery MD at 10/06 [...] board and tape (mastisol) Performed by: Rudolph Loweyr MD Authorizing provider: Rudolph Lowery MD Comments: [...] EVALUATION Jairo Theodore 59 y.o. male 1960 [id number] Procedure(s): REPAIR PSEUDOANEURYSM- FEMORAL (Right ) Medical,anesthesia, [...] who presents as a tra nsfer from [facility] ED for pseudoaneurysm of the right [...] NOTE Jairo Theodore 59 y.o. male 1960 [id number] REPAIR PSEUDOANEURYSM- FEMORAL (Right ) HANDOFF NOTE [...] Rudolph Lowery MD 10/07/2019 4:45 PM PDT PEACEHEALTHElectronically signed by Rudolph Lowery MD at 10/06 [...] [place] | | | | | | [address] | | | | | | | | +--------+ + + + + | 02/06/ | Office | Vascular Surgery | Ricci De León DNP | | 2019 | Visit | | [address] | | | | | | [place] | | | | | | [address] | | | | | | | | | | | | Magdiel Arteaga MD | | | | | | [address] | | | | | | [place] [facility] | | | | | | [place] [address] | | | | | | [phone] | | | | | | | [...] | this point, Dr. Lowery asked Dr. Aretaga to try. He opted for | | [...]
--- OUTSIDE RECORDS SUMMARY | ~2019-11-18 | XMS | Encounter Summary ---
Demographics + + + | Address | [address] | | | [place] [address] | + + + | Home Phone [...] Team Providers + +------+ + | Care Retail Service Lead Merchandiser Name | Role | Phone | + [...] + + | 10/07/ | Anesthesia | [facility] | [facility], | | | 2020 | Event | [facility] | DO Orlando [address] | | | | | OPERATING ROOM [address] | [address] | | | | | [address] | [place] [address] | | | | | [place], [place] | [phone] | | | | | [address] | | | | | | [phone] | | | +--------+ + + + [...] +----+---+ + + | | 1 | [place] | | | | 0 | 43-degrees | | | | 0 | | | | | 0 | | | +----+---+ + + | | 1 | Quick Note | PRBC transfusion Unit [id number] | | | 3 | | | | | 3 | | | | | 2 | | | +----+---+ + + | | 1 | Quick Note | PRB unit [id number] | | | 3 | | | [...] | eral | (dorsal); Forearm; | Ian Lnin RN | Amanda Tim RN | | IV | moxg-rzo-clspjt catheter system; | | | | | [...] EVALUATION Jairo Theodore 59 y.o. male 1960 [id number] Procedure(s) THROMBECTOMY / EMBOLECTOMY of fem fem bypass (N/A ) BYPASS GRAFT FEMORAL-POPLITEAL (Bilateral Leg Upper) ANGIOGRAM - EXTREMITY BILATERAL (79063) (Bilateral ) Cooperates? Yes Mental Status Answers [...] Orlando Ambriz DO 10/08/2019 2:39 PM PDT [facility] signed by Orlando Ambriz DO at 2019 [...] EVALUATION Jairo Theodore 59 y.o. male 1960 [id number] Procedure(s): THROMBECTOMY / EMBOLECTOMY of fem fem [...] a tra nsfer from [facility] ED for pseudoaneurysm of the [...] NOTE Jairo Theodore 59 y.o. male 1960 [id number] THROMBECTOMY / EMBOLECTOMY of fem fem bypass (N/A ) BYPASS GRAFT FEMORAL-POPLITEAL (Bilateral Leg Upper) ANGIOGRAM - EXTREMITY BILATERAL (21271) (Bilateral ) HANDOFF NOTE Handoff Protocol Used: [...] Orlando Ambriz DO 10/08/2019 2:33 PM PDT [facility] signed by Orlando Ambriz DO at 2019 [...] [place] | | | | | | [address] | | | | | | | | +--------+ + + + + | 02/06/ | Office | Vascular Surgery | Ricci De León DNP | | 2019 | Visit | | [address] | | | | | | [place] | | | | | | [address] | | | | | | | | | | | | Magdiel Arteaga MD | | | | | | [address] | | | | | | [place] [facility] | | | | | | [place] [address] | | | | | | [phone] | | | | | | | [...] | | | | | PRN, Starting Minier 10/08/19 at 1408, | | PM PDT | | | | | Anesthesia Intra-op | | | | | | + +-------+ +------+---+---+ +---+---+ | | | +---+---+ + +-------+ +-------+---+---+ | esmolol (BREVIBLOC) 10 mg/mL | Given | 10/08/19 | 20 mg | | | | injection Intravenous, PRN, | | 20 2:36 | | | | | Starting Minier 8/9/20 at 1436, | | PM PDT [...] | | | | | PRN, Starting Minier 10/08/19 at | | AM PDT | [...]
--- OUTSIDE RECORDS SUMMARY | ~2019-11-18 | XMS | Encounter Summary ---
Demographics + + + | Address | [address] | | | [place] [address] | + + + | Home Phone [...] Author + + + | Author | [facility] | | | and [place] | + + + | Organization | [facility] | | | [...] Team Providers + +------+ + | Care Ice Skating Teacher Name | Role | Phone | [...] + + | 10/06/ | Anesthesia | [facility] | Rudolph Lowery | | | 2020 | Event | [facility] | MD [address] | | | | | OPERATING ROOM [address] | [address] | | | | | [address] | [place] [address] | | | | | [place], [place] | [phone] | | | | | [address] | | | | | | [phone] | | | +--------+ + + + [...] +----+---+ + + | | 0 | [place] | | | | 8 | 43-degrees [...] Amanda Tim RN | | IV | iawm-zyz-sbqxwx catheter system; | | | | | [...] EVALUATION Jairo Theodore 59 y.o. male 1960 [id number] Procedure(s) REPAIR PSEUDOANEURYSM- FEMORAL (Right ) Cooperates? [...] Rudolph Lowery MD 10/07/2019 4:54 PM PDT [facility] Rudolph Lowery MD at [...] EVALUATION Jairo Theodore 59 y.o. male 1960 [id number] Procedure(s): REPAIR PSEUDOANEURYSM- FEMORAL (Right ) Medical,anesthesia, [...] who presents as a tra nsfer from [facility] ED for pseudoaneurysm of the [...] NOTE Jairo Theodore 59 y.o. male 1960 [id number] REPAIR PSEUDOANEURYSM- FEMORAL (Right ) HANDOFF NOTE [...] Rudolph Lowery MD 10/07/2019 4:45 PM PDT [facility] Rudolph Lowery MD at [...] [place] | | | | | | [address] | | | | | | | | +--------+ + + + + | 02/06/ | Office | Vascular Surgery | Ricci De León DNP | | 2019 | Visit | | [address] | | | | | | [place] | | | | | | [address] | | | | | | | | | | | | Magdiel Arteaga MD | | | | | | [address] | | | | | | [place] [facility] | | | | | | [place] [address] | | | | | | [phone] | | | | | | | [...]
--- OUTSIDE RECORDS SUMMARY | ~2019-11-18 | XMS | Clinical Summary ---
Demographics + + + | Address | [address] | | | [place] [address] | + + + | Home Phone [...] Team Providers + +------+ + | Care Communications Agent Name | Role | Phone | + +------+ + | No Pcp Per Patient | PCP | Unavailable | + +------+ + Source Comments [facility] is fully live on both [facility] and [facility] InPatient.[facility] Allergies Not on File Medications + + [...] + +--------+ | MEDICARE | MEDICA | [id number] | 04/30/19 | [phone] | [address] | [address] | | | RE A & | | 08-Pre | [address] | [address] | re | | | [address] | | sent | | [place], [place] | | | | | | | | [address] | | + +--------+ +--------+ + +--------+ | MEAT MOLDER MEDICAID | MEAT MOLDER | [id number] | 10/31/19 | | | [address] | [...] | | | 0 (Home) | [place] [address] | + +--------+ +--------+ + +"
--- OUTSIDE RECORDS SUMMARY | ~2019-11-18 | XMS | Encounter Summary ---
Demographics + + + | Address | [address] | | | [place] [address] | + + + | Home Phone | | + + + | Preferred Language | Unknown | + + + | Marital Status | Single | + + + | Evangelical Affiliation | [id number] | + + + | Race | White | + + + | Ethnic Group | Not or | + + + Author + + + | Author | [facility] | | | and [place] | + + + | Organization | [facility] | | | [...] Team Providers + +------+ + | Care Fabric Machine Operator Name | Role | Phone [...] + + + | 10/16/ Telephone | [facility] | Rachel Juarez, | Follow-up | | 2019 | | VASCULAR SURGERY | RN | | | | | [address] | | | | | | [place] | | | | | | [address] | | | | | | [phone] | | | +--------+ + + + [...] Justinjeanne Iveth Desmond - [facility]20/2019 2[facility] and [...] | | | | | | [place] | | | | | | [place] [address] | | | | | | [phone] | | | | | | | | +--------+ + + + + documented as of this encounter Visit Diagnoses Not on filedocumented in this encounter"
--- OUTSIDE RECORDS SUMMARY | ~2019-11-18 | XMS | Encounter Summary ---
Demographics + + + | Address | [address] | | | [place] [address] | + + + | Home Phone | | + + + | Preferred Language | Unknown | + + + | Marital Status | Single | + + + | Hoahaoism Affiliation | BAP | + + + | Race | White | + + + | Ethnic Group | Not or | + + + Author + + + | Author | [facility] | + + + | Organization | [facility] | + + + | Address | Unknown | + + + | Phone | Unavailable | + + + Support + + +---------+ + | Name | Relationship | Address | Phone | + + +---------+ + | Lele Conley | ECON | Unknown | | + + +---------+ + Care Team Providers + +------+ + | Care Contact Centre Supervisor Name | Role | Phone | [...] | | | Transcribed | [facility] | [address]y Ayesha Catherine | | | | | Florin Mailcode: [address] | [place], [place] | | | | | [facility] | [address] | | | | | [place], [place] | [phone] | | | | | [address] | | | | | | [phone] | | | +--------+ + + + [...] 04/30/2007 12:00 AM PSTAssociated Order(s): OPERATION RECORD [id number] [place] JUAREZ [id number] Date: 04/30/2007 Attending Surgeon: Orlando Churchill M.D. Co-Surgeon: Rudolph Brewer M.D. Care Team Coordinator Scheduler(s): Jacky Morgan M.D. 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 Procedures Performed: Endovascular repair of abdominal aortic pseudoaneurysm. Anesthesia: General. Indications: This is a 47-year-old man who was flown to [facility] with an abdominal aortic pseudoaneurysm at the proximal anastomosis of a previous aortobifemoral graft. He has suitable anatomy for endovascular repair of the pseudoaneurysm, and is taken to surgery for this. Findings: 1. The repair was performed through a right femoral cutdown accessing the distal moncada of his right aortofemoral graft limb. 2. The aneurysm was repaired with 2 [employer] endovascular components. The most proximal component is [...] direct vision into the abdominal aorta. A 4-Norwegian pigtail catheter was then placed over the guidewire at approximately the level of the renal artery origins. A separate site on the graft limb was then punctured with an 18-gauge needle, and the guidewire advanced into the abdominal aorta. The patient was systematically heparinized at this point. A 16-Norwegian sheath was then placed over the guidewire [...] the right aortofemoral graft limb. An iliac network systems consultant that is 12 mm at the proximal [...] condition. Orlando Churchill M.D. OUSMANE / HS [id number] / [id number] / [id number] / Electronically signed by Orlando Churchill 05-13-2007 [...] Churchill MD - 04/30/2007 12:00 AM PST [id number] | | [id number] FROILAN JUAREZ [id number] Date: | | 04/30/2007 Attending Surgeon: Orlando Churchill M.D. Co-Surgeon: Rudolph Brewer M.D. | | Care Team Coordinator Scheduler(s): Leroy Jay M.D. Marc Arevalo M.D. 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 Postoperative Diagnosis(es): Abdominal aortic | | pseudoaneurysm. Procedures Performed: Endovascular repair of abdominal aortic | | pseudoaneurysm. Anesthesia: General. Indications: This is a 47-year-old man who was | | flown to [facility] with an abdominal aortic pseudoaneurysm at [...] The aneurysm was repaired with 2 [employer] endovascular components. | | The most proximal [...] into the | | abdominal aorta. A 4-Norwegian pigtail catheter was then placed over the guidewire at | | approximately the level of the renal artery origins. A separate site on the graft limb | | was then punctured with an 18-gauge needle, and the guidewire advanced into the | | abdominal aorta. The patient was systematically heparinized at this point. A 16-Norwegian | | sheath was then placed over [...] aortofemoral graft limb. An | | iliac network systems consultant that is 12 mm at the proximal [...] condition. Orlando Churchill M.D. OUSMANE / REBEL [id number] / [id number] / [id number] / D: | | 04/30/2007 Electronically signed [...] direct vision into the abdominal aorta. A 4-Norwegian pigtail | | catheter was then placed over the guidewire at approximately the level of | | the renal artery origins. | | | | A separate site on the graft limb was then punctured with an 18-gauge | | needle, and the guidewire advanced into the abdominal aorta. The patient | | was systematically heparinized at this point. A 16-Norwegian sheath was then | | placed over [...] | | aortofemoral graft limb. An iliac network systems consultant that is 12 mm at the proximal [...] | | GJL / HS | | [id number] / [id number] / [id number] / | | | | | | | | | | | | Electronically signed by Orlando Churchill 05-13-2007 01:33:44 PM | | | | | + + documented in this encounter Visit Diagnoses Not on filedocumented in this encounter"
--- OUTSIDE RECORDS SUMMARY | ~2019-11-18 | XMS | Encounter Summary ---
Demographics + + + | Address | [address] | | | [place] [address] | + + + | Home Phone | | + + + | Preferred Language | Unknown | + + + | Marital Status | Single | + + + | Church Affiliation | BAP | + + + | Race | White | + + + | Ethnic Group | Not or | + + + Author + + + | Author | [facility] | + + + | Organization | [facility] | + + + | Address | Unknown | + + + | Phone | Unavailable | + + + Support + + +---------+ + | Name | Relationship | Address | Phone | + + +---------+ + | Lele Conley | ECON | Unknown | | + + +---------+ + Care Team Providers + +------+ + | Care Dairy Nutrition Specialist Name | Role | Phone | [...] [address] | | | | | [place], [place] | [place] | | | | | [address] | [address] | | | | | [phone] | [phone] | | | | | | | [...] DEPARTMENT OF | [address] | [place] [address] | | | PATHOLOGY | [address] | | | + + + + + | [facility] DEPARTMENT OF | [address] | [place] [address] | | | PATHOLOGY | [address] [...] DEPARTMENT OF | [address] | [place] [address] | | | PATHOLOGY | [address] | | | + + + + + | [facility] DEPARTMENT OF | [address] | [place] [address] | | | PATHOLOGY | [address] [...] | [facility] DEPARTMENT OF | [address] | [place] [address] | | | PATHOLOGY | [address] | | | + + + + + | [facility] DEPARTMENT OF | [address] | [place] [address] | | | PATHOLOGY | [address] [...] | + + + + + | [facility] DEPARTMENT OF | [address] | [place] [address] | | | PATHOLOGY | [address] | | | + + + + + | [facility] DEPARTMENT OF | [address] | [place] [address] | | | PATHOLOGY | [address] [...] | + + + + + | [facility] | [address] | [place] [address] | | | PATHOLOGY | [address] | | | + + + + + | [facility] | [facility] [address] | [place] [address] | | | PATHOLOGY | [address] [...] | + + + + + | [facility] DEPARTMENT OF | [address] | [place] [address] | | | PATHOLOGY | [address] | | | + + + + + | [facility] DEPARTMENT OF | [address] | [place] [address] | | | PATHOLOGY | [address] | | | + + + + + PHOSPHORUS, PLASMA (05/01/2007 2:10 AM PST) + +-------+ + + + | Component | Value | Ref Range | Performed | Pathologist | | | | | At | Signature | + +-------+ + + + | PHOSPHORUS, | 3.0 | 2.4 - 4.7 mg/dL | [facility] | | | PLASMA | [...] | + + + + + | [facility] DEPARTMENT | [address] | [place] [address] | | | PATHOLOGY | [address] | | | + + + + + | [facility] | [address] [place] [address] | [place] [address] | | | PATHOLOGY | [address] [...] | + + + + + | [facility] DEPARTMENT OF | [address] | [place] [address] | | | PATHOLOGY | [address] | | | + + + + + | [facility] DEPARTMENT OF | [address] | [place] [address] | | | PATHOLOGY | [address] [...] | + + + + + | [facility] DEPARTMENT OF | [address] | [place] [address] | | | PATHOLOGY | [address] | | | + + + + + | [facility] DEPARTMENT OF | [address] | [place] [address] | | | PATHOLOGY | [address] [...] | + + + + + | [facility] DEPARTMENT OF | [address] | [place] [address] | | | PATHOLOGY | [address] | | | + + + + + | [facility] DEPARTMENT OF | [address] | [place] [address] | | | PATHOLOGY | [address] [...] | + + + + + | [facility] DEPARTMENT OF | [address] | [place] [address] | | | PATHOLOGY | [address] | | | + + + + + | [facility] DEPARTMENT OF | [address] | [place] [address] | | | PATHOLOGY | [address] [...] | + + + + + | [facility] DEPARTMENT OF | [address] | [place] [address] | | | PATHOLOGY | [address] | | | + + + + + | [facility] DEPARTMENT OF | [address] | [place] [address] | | | PATHOLOGY | [address] [...] + + | [facility] DEPARTMENT OF | [address] | [place] [address] | | | PATHOLOGY | [address] | | | + + + + + | [facility] DEPARTMENT OF | [address] | [place] [address] | | | PATHOLOGY | [address] [...] | + + + + + | [facility] DEPARTMENT OF | [address] | [place] [address] | | | PATHOLOGY | [address] | | | + + + + + | [facility] DEPARTMENT OF | [address] | [place] [address] | | | PATHOLOGY | [address] [...] | [facility] DEPARTMENT OF | [address] | [place] [address] | | | PATHOLOGY | [address] | | | + + + + + | [facility] DEPARTMENT OF | [address] | [place] [address] | | | PATHOLOGY | [address] [...] + + + + + | [facility] | [address] | [place] [address] | | | PATHOLOGY | [address] | | | + + + + + | [facility] | [address] | [place] [address] | | | PATHOLOGY | [address] [...] endograftPrimary | | | | | | processing clerk: Mickey, | | | | | | PederMDAssistant | | | | | | attending processing clerk: | | | | | | Rudolph [...] | | | | | | 1. 4-Citizen Of The [place] pigtail | | | | | | [...] endograftOperation5. | | | | | | 5-Citizen Of [place] pigtail | | | | | | [...] | | | | | technique a 4-Citizen Of [place] | | | | | | pigtail [...] a | | | | | | 16-Citizen Of [place] sheath was | | | | | [...] | | | | | | the 16-Citizen Of [place] sheath and | | | | | [...] | | | | | | balloon. A5-Citizen Of [place] | | | | | | pigtail [...] | | + +---------+ + + | [facility] DEPARTMENT OF | | | [...] DEPARTMENT OF | [address] | [place] [address] | | | PATHOLOGY | [address] | | | + + + + + | [facility] DEPARTMENT OF | [address] | [place] [address] | | | PATHOLOGY | [address] [...] + + + + + | [facility] | [address] | [place] [address] | | | PATHOLOGY | [address] | | | + + + + + | [facility] | [address] | [place] [address] | | | PATHOLOGY | [address] [...] + + + + + | [facility] | [facility] | [place] [address] | | | PATHOLOGY | [address] | | | + + + + + | [facility] DEPARTMENT OF | [facility] | [place] [address] | | | PATHOLOGY | [address] [...] | + + + + + | [facility] DEPARTMENT OF | [address] | [place] [address] | | | PATHOLOGY | [address] | | | + + + + + | [facility] DEPARTMENT OF | [address] | [place] [address] | | | PATHOLOGY | [address] [...] + + + + + | [facility] | [address] | [place] [address] | | | PATHOLOGY | [address] | | | + + + + + | [facility] | [address] | [place] [address] | | | PATHOLOGY | [address] [...] the | | | | | | umatilla tribe common and | | | | | [...] | | + +---------+ + + | [facility] DEPARTMENT OF | | | [...] the | | | | | | umatilla tribe common and | | | | | [...] | | + +---------+ + + | [facility] DEPARTMENT OF | | | [...] | | + +---------+ + + | [facility] DEPARTMENT OF | | | [...] DEPARTMENT OF | [address] | [place] [address] | | | PATHOLOGY | [address] | | | + + + + + | [facility] DEPARTMENT | [address] | [place] [address] | | | PATHOLOGY | [address] [...] + + + + + | [facility] | [address] | [place] [address] | | | PATHOLOGY | [address] | | | + + + + + | [facility] | [address] | [place] [address] | | | PATHOLOGY | [address] [...] + + + | [facility] | [address] | [place] [address] | | | LABORATORY | | | [...] + + + + + | [facility] | [address] | [place] [address] | | | PATHOLOGY | [address] | | | + + + + + | [facility] | [address] | [place] [address] | | | PATHOLOGY | [address] [...] DEPARTMENT OF | [address] | [place] [address] | | | PATHOLOGY | [address] | | | + + + + + | [facility] DEPARTMENT OF | [address] | [place] [address] | | | PATHOLOGY | [address] [...] | + + + + + | [facility] | [address] | [place] [address] | | | PATHOLOGY | [address] | | | + + + + + | [facility] | [address] | [place] [address] | | | PATHOLOGY | [address] [...] + + + + + | [facility] | [facility] | [place] [address] | | | PATHOLOGY | [address] | | | + + + + + | [facility] DEPARTMENT OF | [facility] | [place] [address] | | | PATHOLOGY | [address] [...] | + + + + + | [facility] DEPARTMENT OF | [address] | [place] [address] | | | PATHOLOGY | [address] | | | + + + + + | [facility] DEPARTMENT OF | [address] | [place] [address] | | | PATHOLOGY | [address] [...] + + | [facility] DEPARTMENT OF | [address] | [place] [address] | | | PATHOLOGY | [address] | | | + + + + + | [facility] DEPARTMENT OF | [address] | [place] [address] | | | PATHOLOGY | [address] | | | + + + + + PROTHROMBIN TIME (04/29/2007 6:15 PM PST) + + + + + + | Component | Value | Ref Range | Performed | Pathologist | | | | | At | Signature | + + + + + + | INR | 1.05Comment: | 0.90 - 1.20 INR | [facility] | | | | PT [...] + + + + + | [facility] | [facility] | [place] [address] | | | PATHOLOGY | [address] | | | + + + + + | [facility] DEPARTMENT OF | [address] | [place] [address] | | | PATHOLOGY | [address] [...] DEPARTMENT OF | [address] | [place] [address] | | | PATHOLOGY | [address] | | | + + + + + | [facility] DEPARTMENT | [address] | [place] [address] | | | PATHOLOGY | [address] [...] + + + + + | [facility] | [address] | [place] [address] | | | PATHOLOGY | [address] | | | + + + + + | [facility] | [address] | [place] [address] | | | PATHOLOGY | [address] | | | + + + + + documented in this encounter Visit Diagnoses Not on filedocumented in this encounter"
--- OUTSIDE RECORDS SUMMARY | ~2019-11-18 | XMS | Encounter Summary ---
Demographics + + + | Address | [address] | | | [place] [address] | + + + | Home Phone [...] Author + + + | Author | [facility] | | | and [place] | + + + | Organization | [facility] | | [...] Team Providers + +------+ + | Care Loan Assistant Name | Role | Phone | + +------+ + | No, Physician | PCP | Unavailable | + +------+ + Encounter Details +--------+ + + + + | Date | Type | Department | Care Team | Description | +--------+ + + + + | 10/06/ | Anesthesia | [facility] | Rudolph Lowery | | | 2020 | Event | [facility] | MD [address] | | | | | OPERATING ROOM [address] | [address] | | | | | [address] | [place] [address] | | | | | [place], [place] | [phone] | | | | | [address] | | | | | | [phone] | Hossein Gregorio, Taisha, | | | | | | BAG SEALER [address] [facility] | | | | | | [place] [address] | | | | | | [phone] | | | | | | | [...] Logan | | | | | HARRISON Flaangan | | +-------+ + +---------+ | Wound [...] EVALUATION Jairo Covarrubiases 59 y.o. male 1960 [id number] Procedure(s): REPAIR PSEUDOANEURYSM- FEMORAL (Right ) Medical,anesthesia, [...] presents as a tra nsfer from [facility] ED for pseudoaneurysm of the right [...] [place] | | | | | | [address] | | | | | | | | +--------+ + + + + | 02/06/ | Office | Vascular Surgery | Ricci De León DNP | | 2019 | Visit | | [address] | | | | | | [place] | | | | | | [address] | | | | | | | | | | | | Magdiel Arteaga MD | | | | | | [address] | | | | | | [place] [facility] | | | | | | [place] [address] | | | | | | [phone] | | | | | | | | +--------+ + + + + documented as of this encounter Visit Diagnoses Not on filedocumented in this encounter"
--- OUTSIDE RECORDS SUMMARY | ~2019-11-18 | XMS | Encounter Summary ---
Demographics + + + | Address | [address] | | | [place] [address] | + + + | Home Phone | | + + + | Preferred Language | Unknown | + + + | Marital Status | Single | + + + | Congregational Affiliation | BAP | + + + | Race | White | + + + | Ethnic Group | Not or | + + + Author + + + | Author | [facility] | + + + | Organization | [facility] | + + + | Address | Unknown | + + + | Phone | Unavailable | + + + Support + + +---------+ + | Name | Relationship | Address | Phone | + + +---------+ + | Lele Conley | ECON | Unknown | | + + +---------+ + Care Team Providers + +------+ + | Care Pond Tender Name | Role | Phone | + +------+ + PCP | Unavailable | + +------+ + Encounter Details +--------+ + + + + | Date | Type | Department | Care Team | Description | +--------+ + + + + | 04/30/ | Respiratory | Respiratory | Nikita Holliday | | | 2007 | Therapy | Therapy [address] [facility] | [phone] | | | | | [address] | | | | | | Mailcode: [address] | | | | | | [place], [place] | | | | | | [address] | | | | | | [phone] | | | +--------+ + + + [...] Caputo, | | | | | | MATERIAL SPREADER | | | | + + + [...] [facility] | [address] | [place], [place] | | | THERAPY | [facility] | [address] | | + + + + + | [facility] | [address] [facility] [address] | [place], [place] | | | THERAPY | [facility] | [address] | | + + + + + [...] | THERAPY | | | | Moy, MATERIAL SPREADER | | | | + + + [...] [facility] | [address] | [place], [place] | | | THERAPY | [address] | [address] | | + + + + + | [facility] | [address] | [place], [place] | | | THERAPY | [address] | [address] | | + + + + + documented in this encounter Visit Diagnoses Not on filedocumented in this encounter"
--- OUTSIDE RECORDS SUMMARY | ~2019-11-18 | XMS | Encounter Summary ---
Demographics + + + | Address | [address] | | | [place] [address] | + + + | Home Phone | | + + + | Preferred Language | Unknown | + + + | Marital Status | Single | + + + | Baptism Affiliation | BAP | + + + | Race | White | + + + | Ethnic Group | Not or | + + + Author + + + | Author | [facility] | + + + | Organization | [facility] | + + + | Address | Unknown | + + + | Phone | Unavailable | + + + Support + + +---------+ + | Name | Relationship | Address | Phone | + + +---------+ + | Lele Conley | ECON | Unknown | | + + +---------+ + Care Team Providers + +------+ + | Care Crm Administrator Name | Role | Phone | + [...] [address] | | | | | [place], [place] | [place] | | | | | [address] | [address] | | | | | [phone] | [phone] | | | | | | | [...] DEPARTMENT OF | [address] | [place] [address] | | | PATHOLOGY | [address] | | | + + + + + | [facility] DEPARTMENT OF | [address] | [place] [address] | | | PATHOLOGY | [address] [...] DEPARTMENT OF | [address] | [place] [address] | | | PATHOLOGY | [address] | | | + + + + + | [facility] DEPARTMENT OF | [address] | [place] [address] | | | PATHOLOGY | [address] [...] + | [facility] DEPARTMENT OF | [address] [facility] | [place] [address] | | | PATHOLOGY | [address] | | | + + + + + | [facility] DEPARTMENT OF | [address] [facility] [facility] | [place] [address] | | | PATHOLOGY | [address] [...] | + + + + + | [facility] DEPARTMENT OF | [address] | [place] [address] | | | PATHOLOGY | [address] | | | + + + + + | [facility] DEPARTMENT OF | [address] | [place] [address] | | | PATHOLOGY | [address] [...] | + + + + + | [facility] | [address] | [place] [address] | | | PATHOLOGY | [address] | | | + + + + + | [facility] | [facility] [address] | [place] [address] | | | PATHOLOGY | [address] [...] | + + + + + | [facility] DEPARTMENT OF | [address] | [place] [address] | | | PATHOLOGY | [address] | | | + + + + + | [facility] DEPARTMENT OF | [address] | [place] [address] | | | PATHOLOGY | [address] | | | + + + + + PHOSPHORUS, PLASMA (05/01/2007 2:10 AM PST) + +-------+ + + + | Component | Value | Ref Range | Performed | Pathologist | | | | | At | Signature | + +-------+ + + + | PHOSPHORUS, | 3.0 | 2.4 - 4.7 mg/dL | [facility] | | | PLASMA | | [...] | + + + + + | [facility] DEPARTMENT | [address] [facility] [facility] | [place] [address] | | | PATHOLOGY | [address] | | | + + + + + | [facility] | [address] [place] [address] | [place] [address] | | | PATHOLOGY | [address] [...] | + + + + + | [facility] DEPARTMENT OF | [address] | [place] [address] | | | PATHOLOGY | [address] | | | + + + + + | [facility] DEPARTMENT OF | [address] | [place] [address] | | | PATHOLOGY | [address] [...] | + + + + + | [facility] DEPARTMENT OF | [address] | [place] [address] | | | PATHOLOGY | [address] | | | + + + + + | [facility] DEPARTMENT OF | [address] | [place] [address] | | | PATHOLOGY | [address] [...] | + + + + + | [facility] DEPARTMENT OF | [address] | [place] [address] | | | PATHOLOGY | [address] | | | + + + + + | [facility] DEPARTMENT OF | [address] | [place] [address] | | | PATHOLOGY | [address] [...] | + + + + + | [facility] DEPARTMENT OF | [address] | [place] [address] | | | PATHOLOGY | [address] | | | + + + + + | [facility] DEPARTMENT OF | [address] | [place] [address] | | | PATHOLOGY | [address] [...] | + + + + + | [facility] DEPARTMENT OF | [address] | [place] [address] | | | PATHOLOGY | [address] | | | + + + + + | [facility] DEPARTMENT OF | [address] | [place] [address] | | | PATHOLOGY | [address] [...] + + | [facility] DEPARTMENT OF | [address] | [place] [address] | | | PATHOLOGY | [address] | | | + + + + + | [facility] DEPARTMENT OF | [address] | [place] [address] | | | PATHOLOGY | [address] [...] | + + + + + | [facility] DEPARTMENT OF | [address] | [place] [address] | | | PATHOLOGY | [address] | | | + + + + + | [facility] DEPARTMENT OF | [address] | [place] [address] | | | PATHOLOGY | [address] [...] | [facility] DEPARTMENT OF | [address] [facility] [facility] | [place] [address] | | | PATHOLOGY | [address] | | | + + + + + | [facility] DEPARTMENT OF | [address] | [place] [address] | | | PATHOLOGY | [address] [...] | + + + + + | [facility] | [address] | [place] [address] | | | PATHOLOGY | [address] | | | + + + + + | [facility] | [address] | [place] [address] | | | PATHOLOGY | [address] [...] endograftPrimary | | | | | | hemodialysis rn: Mickey, | | | | | | PederMDAssistant | | | | | | attending hemodialysis rn: | | | | | | Rudolph [...] | | | | | | 1. 4-Fijian pigtail | | | | | | [...] endograftOperation5. | | | | | | 5-Fijian pigtail | | | | | | [...] | | | | | technique a 4-Fijian | | | | | | pigtail [...] a | | | | | | 16-Fijian sheath was | | | | | [...] | | | | | | the 16-Fijian sheath and | | | | | [...] | | | | | | balloon. A5-Fijian | | | | | | pigtail [...] | | + +---------+ + + | [facility] DEPARTMENT OF | | | | [...] DEPARTMENT OF | [address] | [place] [address] | | | PATHOLOGY | [address] | | | + + + + + | [facility] DEPARTMENT OF | [address] | [place] [address] | | | PATHOLOGY | [address] | | | + + + + + PHOSPHORUS, PLASMA (04/30/2007 4:05 AM PST) + +-------+ + + + | Component | Value | Ref Range | Performed | Pathologist | | | | | At | Signature | + +-------+ + + + | PHOSPHORUS, | 2.9 | 2.4 - 4.7 mg/dL | [facility] | | | PLASMA | | | [...] | + + + + + | [facility] | [address] | [place] [address] | | | PATHOLOGY | [address] | | | + + + + + | [facility] | [address] | [place] [address] | | | PATHOLOGY | [address] [...] | + + + + + | [facility] | [facility] [address] | [place] [address] | | | PATHOLOGY | [address] | | | + + + + + | [facility] DEPARTMENT OF | [facility] [address] | [place] [address] | | | PATHOLOGY | [address] [...] | + + + + + | [facility] DEPARTMENT OF | [address] | [place] [address] | | | PATHOLOGY | [address] | | | + + + + + | [facility] DEPARTMENT OF | [address] | [place] [address] | | | PATHOLOGY | [address] [...] | + + + + + | [facility] | [address] [facility] [facility] [facility] | [place] [address] | | | PATHOLOGY | [address] | | | + + + + + | [facility] | [address] | [place] [address] | | | PATHOLOGY | [address] [...] the | | | | | | [place] and | | | | | [...] | | + +---------+ + + | [facility] DEPARTMENT OF | | | | [...] the | | | | | | [place] and | | | | | [...] | | + +---------+ + + | [facility] DEPARTMENT OF | | | | [...] | | + +---------+ + + | [facility] DEPARTMENT OF | | | | [...] DEPARTMENT OF | [address] | [place] [address] | | | PATHOLOGY | [address] | | | + + + + + | [facility] DEPARTMENT | [address] | [place] [address] | | | PATHOLOGY | [address] [...] | + + + + + | [facility] | [address] | [place] [address] | | | PATHOLOGY | [address] | | | + + + + + | [facility] | [address] | [place] [address] | | | PATHOLOGY | [address] [...] + + + | [facility] | [address] | [place] [address] | | | LABORATORY | | | [...] | + + + + + | [facility] | [address] | [place] [address] | | | PATHOLOGY | [address] | | | + + + + + | [facility] | [address] | [place] [address] | | | PATHOLOGY | [address] [...] | + + + + + | [facility] DEPARTMENT OF | [address] | [place] [address] | | | PATHOLOGY | [address] | | | + + + + + | [facility] DEPARTMENT OF | [address] | [place] [address] | | | PATHOLOGY | [address] [...] | + + + + + | [facility] | [address] | [place] [address] | | | PATHOLOGY | [address] | | | + + + + + | [facility] | [address] | [place] [address] | | | PATHOLOGY | [address] [...] | + + + + + | [facility] | [facility] [address] | [place] [address] | | | PATHOLOGY | [address] | | | + + + + + | [facility] DEPARTMENT OF | [facility] [address] | [place] [address] | | | PATHOLOGY | [address] [...] | + + + + + | [facility] DEPARTMENT OF | [address] | [place] [address] | | | PATHOLOGY | [address] | | | + + + + + | [facility] DEPARTMENT OF | [address] | [place] [address] | | | PATHOLOGY | [address] [...] DEPARTMENT OF | [address] | [place] [address] | | | PATHOLOGY | [address] | | | + + + + + | [facility] DEPARTMENT OF | [address] | [place] [address] | | | PATHOLOGY | [address] | | | + + + + + PROTHROMBIN TIME (04/29/2007 6:15 PM PST) + + + + + + | Component | Value | Ref Range | Performed | Pathologist | | | | | At | Signature | + + + + + + | INR | 1.05Comment: | 0.90 - 1.20 INR | [facility] | | | | PT INR [...] | + + + + + | [facility] | [facility] | [place] [address] | | | PATHOLOGY | [address] | | | + + + + + | [facility] DEPARTMENT OF | [address] | [place] [address] | | | PATHOLOGY | [address] [...] DEPARTMENT OF | [address] | [place] [address] | | | PATHOLOGY | [address] | | | + + + + + | [facility] DEPARTMENT | [address] | [place] [address] | | | PATHOLOGY | [address] [...] | + + + + + | [facility] | [address] | [place] [address] | | | PATHOLOGY | [address] | | | + + + + + | [facility] | [address] | [place] [address] | | | PATHOLOGY | [address] | | | + + + + + documented in this encounter Visit Diagnoses Not on filedocumented in this encounter"
--- OUTSIDE RECORDS SUMMARY | ~2019-11-18 | XMS | Encounter Summary ---
Demographics + + + | Address | [address] | | | [place] [address] | + + + | Home Phone [...] + | Author | [facility] | + + + | Organization | [facility] | + + + | Address | Unknown | + + + | Phone | Unavailable | + + + Support + + +---------+ + | Name | Relationship | Address | Phone | + + +---------+ + | Lele Conley | ECON | Unknown | | + + +---------+ + Care Team Providers + +------+ + | Care Bilingual Case Manager Name | Role | Phone | [...] | | | | | [address] [facility] | [facility] [address] | | | | | [address] Mailcode: [address] | [place], [place] | | | | | [facility] | [address] | | | | | [place], [place] | [phone] | | | | | [address] | | | | | | [phone] | | | +--------+ + + + [...] + + + + | PRODUCT | [id number] | | [facility] | | | UNIT [...] DEPARTMENT OF | [address] | [place] [address] | | | PATHOLOGY | [address] | | | + + + + + | [facility] DEPARTMENT OF | [address] | [place] [address] | | | PATHOLOGY | [address] [...] DEPARTMENT OF | [address] | [place] [address] | | | PATHOLOGY | [address] | | | + + + + + | [facility] | [address] | [place] [address] | | | PATHOLOGY | [address] | | | + + + + + documented in this encounter Visit Diagnoses Not on filedocumented in this encounter"
--- OUTSIDE RECORDS SUMMARY | ~2019-11-18 | XMS | Encounter Summary ---
Demographics + + + | Address | [address] | | | [place] [address] | + + + | Home Phone | | + + + | Preferred Language | Unknown | + + + | Marital Status | Single | + + + | Restoration Affiliation | BAP | + + + | Race | White | + + + | Ethnic Group | Not or | + + + Author + + + | Author | [facility] | + + + | Organization | [facility] | + + + | Address | Unknown | + + + | Phone | Unavailable | + + + Support + + +---------+ + | Name | Relationship | Address | Phone | + + +---------+ + | Lele Conley | ECON | Unknown | | + + +---------+ + Care Team Providers + +------+ + | Care Smocking Machine Operator Name | Role | Phone [...] | | | | | [place], | | | | | | [place] [address] | | | +--------+ + + + [...] Anesthesia PostO p Report Patient: LARRY THEODORE [facility] Rec: [id number] Sex M Bdate: 1960 Date/Time Data Entered Into [facility] Anesth PostOp Surgery Date [id number] 05/02/07 12:07 Anesthesiologist NOEL CASH 05/02/07 12:07 [...] | + + | 05/02/2007 12:07 PM [facility] Anesthesia PostOp Report | | | | Patient: LARRY THEODORE [facility] Rec: [id number] Sex M Bdate: 1960 | | Date/Time Data | | Entered Into [facility] | | Anesth PostOp | | Surgery Date [id number] 05/02/07 12:07 | | Anesthesiologist NOEL CASH 05/02/07 12:07 | | | + + documented in this encounter Visit Diagnoses Not on filedocumented in this encounter"
--- OUTSIDE RECORDS SUMMARY | ~2019-11-18 | XMS | Encounter Summary ---
Demographics + + + | Address | [address] | | | [place] [address] | + + + | Home Phone | | + + + | Preferred Language | Unknown | + + + | Marital Status | Single | + + + | Spiritism Affiliation | BAP | + + + [...] Team Providers + +------+ + | Care Advisor Consultant Name | Role | Phone | [...] | | | | nscribed | | [facility] | | | | | | [place] [address] | | | | | | [phone] | | +--------+ + + + + [...] Bina Harrington - 05/13/2007 1:35 PM PDT [id number] 8005/02/2007 [id number] [place] [id number] Admission Date: 04/29/2007 Discharge Date: 05/02/2007 Staff Physician: Bina Harrington N.P. ADDENDUM The patient phoned prescription of Keflex 500 mg p.o. q.i.d. x5 days to [facility] at [phone]. Bina Harrington N.P. / [id number] / [id number] / [id number] / Reviewed or Edited By Bina Harrington on 05-04-2007 Electronically signed by Orlando Churchill 05-13-2007 01:33:53 PM documented in this encounter Plan of Treatment Not on filedocumented as of this encounter Visit Diagnoses Not on filedocumented in this encounter"
--- OUTSIDE RECORDS SUMMARY | ~2019-11-18 | XMS | Encounter Summary ---
Demographics + + + | Address | [address] | | | [place] [address] | + + + | Home Phone | | + + + | Preferred Language | Unknown | + + + | Marital Status | Single | + + + | Samaritan Affiliation | 1009 | + + + | Race | White | + + + | Ethnic Group | Not or | + + + Author + + + | Author | [facility] | | | and [place] | + + + | Organization | [facility] | | [...] Team Providers + +------+ + | Care Hand Assembler Name | Role | Phone | + [...] | | | | | disease) | [place], [place] | | | | | | ([facility]) | [address] | | | | | | Procedures | Phone: | | | | | | VAS Lwr Ext | [phone] | | | | | | Art Bilat w | Fax: | | | | | | DIANNE Multi | [phone] | | | | | | Lvl [...] | | | | | disease) | [place], [place] | | | | | | ([facility]) | [address] | | | | | | Procedures | Phone: | | | | | | VAS Lwr Ext | [phone] | | | | | | Art Bilat w | Fax: | | | | | | DIANNE Multi | [phone] | | | | | | Lvl | | | +--------+--------+ + + + + Encounter Details +--------+ + + + + | Date | Type | Department | Care Team | Description | +--------+ + + + + | 11/07/ | Hospital | [facility] | Ricci De León DNP | PAD (peripheral | | 2020 | Encounter | VASCULAR SURGERY | [address] | artery disease) | | | | ULTRASOUND [address] | [place], [place] | ([facility]) | | | | [address] | [address] | | | | | [place], [place] | | | | | | [address] | | | | | | [phone] | | | +--------+ + + + [...] [place] | | | | | | [address] | | | | | | | | +--------+ + + + + | 02/06/ | Office | Vascular Surgery | Ricci De León DNP | | | 2019 | Visit | | [address] | | | | | | [place], [place] | | | | | | [address] | | | | | | | | | | | | Magdiel Arteaga MD | | | | | | [address] | | | | | | [address] | | | | | | [place] [address] | | | | | | [phone] | | | | | | | [...] | MULTI LEVEL | | PDT | ([facility]) | results section. | + +--------+ [...] cm/sec Right | | | lower extremity: POT LINER prox: 129 cm/sec POT LINER dist: 120 cm/sec | | | Right [...] Procedure Note | + + | Espinoza, [id number] - 11/08/2019 4:04 PM PDT | | [...] | | Right lower extremity: | | POT LINER prox: 129 cm/sec | | POT LINER dist: 120 cm/sec | | | | [...]
--- OUTSIDE RECORDS SUMMARY | ~2019-11-18 | XMS | Encounter Summary ---
Demographics + + + | Address | [address] | | | [place] [address] | + + + | Home Phone | | + + + | Preferred Language | Unknown | + + + | Marital Status | Single | + + + | Muslim Affiliation | 1009 | + + + | Race | White | + + + | Ethnic Group | Not or | + + + Author + + + | Author | [facility] | | | and [place] | + + + | Organization | [facility] | | [...] Team Providers + +------+ + | Care Control Tower Operator Name | Role | Phone | [...] + + | 10/06/ | Surgery | [facility] | Magdiel Arteaga MD | REPAIR | | 2019 | | [facility] | [address] | PSEUDOANEURYSM- | | | | OPERATING RO[address] | [address] | FEMORAL | | | [address] | [place] [address] | | | | | [place], [place] | [phone] | | | | | [address] | | | | | | [phone] | | | +--------+---------+ + + + [...] GRAFT FEMORAL-POPLITEAL (Bilateral) ANGIOGRAM - EXTREMITY BILATERAL (42715) (Bilateral) Chief Complaint: No chief complaint on [...] who was admitted on 10/03/2019 Transfer from [facility] with bilateral hip and pelvic burning pain [...] have wound check in 2 weeks wit [facility] to provide transportation, continue with aspirin 81 mg daily, Plavix 75 mg daily, atorv astatin 40 mg daily. Active Problems: Alcohol abuse/ Tobacco abuse advised to stop smoking and drinking Cellulitis of right foot has been completely treated with Augmentin while in the hospital Discharge Information: Follow up: Teresita Bob MD [address] [facility] [address] Follow up for Home health Wound Care [facility] [address] [id number] Follow up Wound Care and [...] you recover. Don t drive for at [id number] after your surgery or while you are [...] better overnight Chest pain or trouble breathing [employer] last reviewed this educational content on 11/29/201819993689-8015 [facility] [employer]. [address] [address]. All righ ts reserved. This information is [...] of developing AAA decreases. To learn more Smokefree.gov/mmtr-ah-xs-expert National Cancer Stout Smoking Quitline:671-52A-BEOX (439-915-8195) [employer] last reviewed this educational content on 12/30/201819998434-5138 [facility]. [address] [place] [address], [place] [address]. All righ ts reserved. This information is [...] find a support program: Free national quitline 292-SYXQ-YEZ (345-383-4665) [facility] quit-smoking programs [employer] 515-330-2489 [employer] 606-201-5869 Support at home is important too. Family and friends can offer praise and reassurance. If t he smoker in your life finds it hard to quit, encourage them to keep trying. Try woit-fup-ltuueos medicine Nicotine replacement therapymay make iteasier to [...] to quit smoking, try these resources: www.cdc.gov/tobacco/quit_smoking/ 462-ACEN-KBB (796-696-7042) www.smokefree.gov 915-19B-KAUY (469-325-5434) www.lung.org/stop-smoking/ 800-LUNGUSA (928-704-3890) Herve lynn reviewed this educational content on 01/29/201919997889-9024 [facility]. [address] [place] [address]. All righ ts reserved. This information is [...] PA- C - 10/16/2019 7:20 AM PDT [facility] Service: Vascular Surgery Progress Note Hospital Day: LOS: 13 days Post-Op Day: 11/06 SUBJECTIVE Patient Summary: The patient is a 59 y.o. 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 He unde rwent aortobifemoral bypass in 1999. [...] scan which revealed enlargement of known right GRILL PREP COOK pseudoaneurysm. He was transferred to [facility] for evaluation and Vascular was consulted for [...] 10/15/2019 10:30 AM PDT . Jairo Theodore [id number] Hospital Day: 12 SUBJECTIVE Events Overnight: Patient [...] right [facility] 8 mm PTFE. Continue with [...] been in touch with his Merrill, Lele [phone] and he did not want me to [...] and management as well as Computerized Physician Flatwork Ironer. Dictation software, [employer], used which may contain error for similar sounding words even af ter review. Portions of this chart may have been copied from previous notes for continuity of care. 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 He unde rwent aortobifemoral bypass in 1999. [...] scan which revealed enlargement of known right GRILL PREP COOK pseudoaneurysm. He was transferred to [facility] for evaluation and Vascular was consulted for [...] swelling. Call with any neurovascular changes. [facility]. Disposition: [...] - 10/14/2019 9:23 AM PDT Jairo Theodore [id number] Hospital Day: 11 SUBJECTIVE Events Overnight: Patient [...] been in touch with his Merrill, Lele [phone] and he did not want me to [...] and management as well as Computerized Physician Flatwork Ironer. Dictation software, [employer], used which may contain error for similar sounding words even af ter review. Portions of this chart may have been copied from previous notes for continuity of care. 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 He unde rwent aortobifemoral bypass in 1999. [...] scan which revealed enlargement of known right GRILL PREP COOK pseudoaneurysm. 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 He unde rwent aortobifemoral bypass in 1999. [...] scan which revealed enlargement of known right GRILL PREP COOK pseudoaneurysm. He was transferred to [facility] for evaluation and Vascular was consulted for [...] different from t wyatt original. Jairo Theodore [id number] Hospital Day: 10 SUBJECTIVE Events Overnight: Patient [...] right [facility] 8 mm PTFE. Continue with [...] been in touch with his Merrill, Lele [phone] and he did not want me to [...] and management as well as Computerized Physician Flatwork Ironer. Dictation software, [employer], used which may contain error for similar [...] different from the orig inal. Jairo Theodore [id number] Hospital Day: 9 SUBJECTIVE Events Overnight: Patient [...] right to left femoral [facility] with 8 mm PTFE. Continue with [...] been in touch with his Merrill, Lele [phone] and he did not want me to [...] and management as well as Computerized Physician Flatwork Ironer. Dictation software, [employer], used which may contain error for similar sounding words even af ter review. Portions of this chart may have been copied from previous notes for continuity of care. 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 He unde rwent aortobifemoral bypass in 1999. [...] scan which revealed enlargement of known right GRILL PREP COOK pseudoaneurysm. He was transferred to [facility] for evaluation and Vascular was consulted for [...] Color, UA YELLOW Clarity, Urine CLEAR Specific Kohler, Urine 1.008 1.002 - 1.030 Leukocyte esterase, [...] BANK. BLOOD BANK COMMENT Testing performed at [facility];[address] [place] [address] Type and Screen Collection Time: 10/12/19 7:52 AM Result Value Ref Range ABO Rh A POSITIVE Antibody Screen NEGATIVE BB BAND [id number] BB BAND Testing performed at [facility];[address] [place] [address] UNIT # [id number] Product Code LEUKODEPLETED PC Unit Division 00 Unit Status ALLOCATED Transfusion Status OK TO TRANSFUSE CROSSMATCH RESULT COMPATIBLE UNIT # [id number] Product Code LEUKODEPLETED PC Unit Division 00 [...] to chair with feet elevated. [facility] changes. Appreciate hospitalitis assistance [...] from the originluis rebollar Jairo Kwaku Theodore [id number] Hospital Day: 8 SUBJECTIVE Events Overnight: Patient [...] right to left femoral [facility] with 8 mm PTFE. Continue with [...] been in touch with his Merrill, Lele [phone] and he did not want me to [...] and management as well as Computerized Physician Flatwork Ironer. Dictation software, [employer], used which may contain error for similar sounding words even af ter review. Portions of this chart may have been copied from previous notes for continuity of care. 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 He unde rwent aortobifemoral bypass in 1999. [...] scan which revealed enlargement of known right GRILL PREP COOK pseudoaneurysm. He was transferred to [facility] for evaluation and Vascular was consulted for [...] Full Chelsi Arteaga PA-C 10/11/2019 Rachel Trinidad [facility] - 10/10/2019 11:59 AM PDTFormatting [...] PO medications. Thank You, Rachel Cifuentes, PharmD, 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 He unde rwent aortobifemoral bypass in 1999. [...] scan which revealed enlargement of known right GRILL PREP COOK pseudoaneurysm. He was transferred to [facility] for evaluation and Vascular was consulted for [...] might be different from the or iginal. [facility] Service: Consumer Relations Specialist Progress Note Jairo Kwaku Theodore 59 [...] He was farnsworth sferred on 10/03/2019 from [facility] for right foot swelling and increase [...] procedures. Tyler Elias MD 10/10/2019 Dictation software, [employer], was used which may contain error with similar sound words even after review. Portions of this chart may have been copied from previous notes for continuity of care. aniella Coleman RN - 10/09/2019 10:20 AM PDTFamily/ day care teacher updated by pt. 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 He unde rwent aortobifemoral bypass in 1999. [...] scan which revealed enlargement of known right GRILL PREP COOK pseudoaneurysm. He was transferred to [facility] for evaluation and Vascular was consulted for [...] Gr MD - 10/09/2019 1:28 AM PDT [facility] Service: Consumer Relations Specialist Progress Note Jairo Theodore 59 y.o. [...] He was farnsworth sferred on 10/03/2019 from [facility] for right foot swelling and increase [...] procedures. Julian Gr MD 10/09/2019 Dictation software, [employer], was used which may contain error with [...] by vascular surgery. R eport given to VEST FINISHER. Pt safely transferred to room 07278. Incisions and dressings were teresa an and dry. Post tib and pedal pulses dopplerable. JADA SHINE RN Chyna Rashid MD - 10/08/2019 4:07 PM PDT [facility] Service: Hospitalist Progress Note Hospital Day: LOS: 5 days SUBJECTIVE Patient Summary: Mr. Theodore is a 59 yr old man active smoker 1ppday with alcohol abuse, hx of PAD, s/p right aorto bifemoral bypass in 1999 complicated by pseudoaneurysm, s/p revision, was transferred from [facility] ED for right foot swelling and increasing [...] endarterectomy, right [facility]. Patient had an EBL [...] Rashid MD - 10/07/2019 3:55 PM PDT [facility] Service: Hospitalist Progress Note Hospital Day: LOS: 4 days SUBJECTIVE Patient Summary: Mr. Theodore is a 59 yr old man active smoker 1ppday with alcohol abuse, hx of PAD, s/p right aorto bifemoral bypass in 1999 complicated by pseudoaneurysm, s/p revision, was transferred from [facility] ED for right foot swelling and [...] A POSITIVE Antibody Screen NEGATIVE BB BAND TELESALES SUPERVISOR 0630 BB BAND Testing performed at [facility];[address] [place] [address];[place] [address] UNIT # [id number] Product Code LEUKODEPLETED PC Unit Division 00 Unit Status ISSUED Transfusion Status OK TO TRANSFUSE CROSSMATCH RESULT COMPATIBLE UNIT # [id number] Product Code LEUKODEPLETED PC Unit Division 00 Unit Status ISSUED Transfusion Status OK TO TRANSFUSE CROSSMATCH RESULT COMPATIBLE UNIT # [id number] Product Code LEUKODEPLETED PC Unit Division 00 Unit Status ALLOCATED Transfusion Status OK TO TRANSFUSE CROSSMATCH RESULT COMPATIBLE UNIT # [id number] Product Code LEUKODEPLETED PC Unit Division 00 Unit Status ALLOCATED Transfusion Status OK TO TRANSFUSE CROSSMATCH RESULT COMPATIBLE Red Blood Cells (PRBC) - Crossmatch and Hold Result Value Ref Range Product Code RED CELL GROUP Units ordered 2 BLOOD BANK COMMENT ORDER RECEIVED IN BLOOD BANK. BLOOD BANK COMMENT Testing performed at [facility];[address] [place] [address];[place] [address] POC ISTAT, CG8, Arterial Result Value Ref [...] BANK. BLOOD BANK COMMENT Testing performed at [facility];[address] [place] [address];[place] [address] POC ISTAT, CG8, Arterial Result Value Ref [...] Milian PA-C - 10/07/2019 7:08 AM PDT [facility] Service: Vascular Surgery Progress Note Hospital Day: LOS: 4 days Post-Op Day: * No surgery date entered * SUBJECTIVE Patient Summary: The patient is a 59 y.o. 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 He unde rwent aortobifemoral bypass in 1999. [...] scan which revealed enlargement of known right GRILL PREP COOK pseudoaneurysm. He was transferred to [facility] for evaluation and Vascular was consulted for [...] A POSITIVE Antibody Screen NEGATIVE BB BAND TELESALES SUPERVISOR 0630 BB BAND Testing performed at [facility];[address] [place] [address] UNIT # [id number] Product Code LEUKODEPLETED PC Unit Division 00 Unit Status ALLOCATED Transfusion Status OK TO TRANSFUSE CROSSMATCH RESULT COMPATIBLE UNIT # [id number] Product Code LEUKODEPLETED PC Unit Division 00 Unit Status ALLOCATED Transfusion Status OK TO TRANSFUSE CROSSMATCH RESULT COMPATIBLE Red Blood Cells (PRBC) - Crossmatch and Hold Collection Time: 10/07/19 6:30 AM Result Value Ref Range Product Code RED CELL GROUP Units ordered 2 BLOOD BANK COMMENT ORDER RECEIVED IN BLOOD BANK. BLOOD BANK COMMENT Testing performed at [facility];[address] [place] [address] PROBLEM LIST Principal Problem: Pseudoaneurysm right aorto [...] Shook MD - 10/06/2019 10:34 AM PDT [facility] Service: Hospitalist Progress Note Hospital Day: LOS: 3 days SUBJECTIVE Patient Summary: Mr. Theodore is a 59 yr old man active smoker 1ppday with alcohol abuse, hx of PAD, s/p right aorto bifemoral bypass in 1999 complicated by pseudoaneurysm, s/p revision, was transferred from [facility] ED for right foot swelling and [...] Crum PA-C - 10/06/2019 9:32 AM PDT [facility] Service: Vascular Surgery Progress Note Hospital Day: LOS: 3 days Post-Op Day: * No surgery date entered * SUBJECTIVE Patient Summary: The patient is a 59 y.o. 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 He unde rwent aortobifemoral bypass in 1999. [...] scan which revealed enlargement of known right GRILL PREP COOK pseudoaneurysm. He was transferred to [facility] for evaluation and Vascular was consulted for [...] Rashid MD - 10/05/2019 12:14 PM PDT [facility] Service: Hospitalist Progress Note Hospital Day: LOS: 2 days SUBJECTIVE Patient Summary: Mr. Theodore is a 59 yr old man active smoker 1ppday with alcohol abuse, hx of PAD, s/p right aorto bifemoral bypass in 1999 complicated by pseudoaneurysm, s/p revision, was transferred from [facility] ED for right foot swelling and [...] Crum PA-C - 10/05/2019 8:18 AM PDT [facility] Service: Vascular Surgery Progress Note Hospital Day: LOS: 2 days Post-Op Day: * No surgery date entered * SUBJECTIVE Patient Summary: The patient is a 59 y.o. 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 He unde rwent aortobifemoral bypass in 1999. [...] scan which revealed enlargement of known right GRILL PREP COOK pseudoaneurysm. He was transferred to [facility] for evaluation and Vascular was consulted for [...] and open repair for his enlarging right GRILL PREP COOK pseudoaneurysm. He will need r etroperitoneal exposure [...] Rashid MD - 10/04/2019 9:15 AM PDT [facility] Service: Hospitalist Progress Note Hospital Day: LOS: 1 day SUBJECTIVE Patient Summary: Mr. Theodore is a 59 yr old man active smoker 1ppday with alcohol abuse, hx of PAD, s/p right aorto bifemoral bypass in 1999 complicated by pseudoaneurysm, s/p revision, was transferred from [facility] ED for right foot swelling and increasing [...] LYTY 0809 BB BAND Testing performed at [facility];[address] [facility];[place] [address] ECG 12 lead Result Value Ref Range [...] check if blood cultures were taken at [facility] Prn pain medication Pseudoaneurysm right femoral [...] might be different from t he original. [facility] Service: Hospitalist Admission History & Physical Date [...] who p resents as a transfer from [facility] ED for pseudoaneurysm of the right groin and celluli tis of the RLE. Per patient right pseudoaneurysm of the right groin has been getting bigger for at least a year. Right foot swelling for 5 days. Patient reports similar episodes at [facility] twice a year but [...] LYTY 0809 BB BAND Testing performed at [facility];[address] [place] [address];[place] [address] ECG 12 lead Result Value Ref Range INTERPRETATION TEXT Not Confirmed IMAGING No orders to display EKG at 2310: NSR, VR 72, Qtc 455. Data from [facility] -Ultrasound impression: 6.3 x 5.1 x [...] delirium tremens, seizures from withdrawals or withdrawals -[facility] protocol initiated Tobacco abuse: -Quit smoking today smoke a pack of cigarettes per day -Nicotine patch Hypokalemia GI and DVT prophylaxis Code Status: Full Code Dictation software, 1-800-DOCTORS, used which may contain errors for similar [...] this note might be different from the [facility] Service: Consumer Relations Specialist Initial Consult Note Jairo Theodore 59 [...] was transf erred 5 days ago from [facility] for right foot swelling and increase [...] ENDARTERECTOMY FEMORAL; Surgeon: Magdiel Arteaga MD; Location: [facility] MAIN OR FEMORAL-FEMORAL BYPASS GRAFT N/A 10/07/2019 Procedure: BYPASS GRAFT FEMORAL-FEMORAL; Surgeon: Magdiel Arteaga MD; Location: [facility] MAIN OR OTHER SURGICAL HISTORY Right 10/07/2019 Procedure: REPAIR PSEUDOANEURYSM- FEMORAL; Surgeon: Magdiel Arteaga MD; Location: [facility] GABI N OR ALLERGIES Allergies [...] file Gets together: Not on file Attends zoroastrian service: Not on file Active member of [...] PDTAssociated Order(s): PROVIDER TO PROVIDER CONSUL T [facility] Service: Vascular Surgery Initial Consult Note Date of Admission: 10/03/2019 Date of Consultation: 10/04/2019 Reason for Consultation: Pseudoaneurysm of right GRILL PREP COOK Primary Care Physician: Maribel Physician on file History Obtained From: Patient, chart review Code Status: Full Code CHIEF COMPLAINT: Right foot swelling and pain; Enlarging right femoral pseudoaneurysm HISTORY OF PRESENT ILLNESS The patient is a 59 y.o. 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 He underwent aortobifemoral by pass in 1999. [...] which reveal ed enlargement of known right GRILL PREP COOK pseudoaneurysm. He was transferred to [facility] for evaluation and Vascular was consulted for [...] - The patient was transferr ed to [facility] for evaluation of his enlarging pseudoaneurysm, which [...] yesterday showed enlarging right femoral pseudoaneurysm. Left GRILL PREP COOK shows no in flow but reconstitutes. The patient will require revascularization and open repair for his e nlarging right GRILL PREP COOK pseudoaneurysm. He will need retroperitoneal exposure with [...] Current Outpt/Agency/Support Groups: yes Community Agency Name: [facility] Home Health Disciplines: RN and PT - RN for wound care Equipment Durable Medical Equipment Provider: Home Equipment at Discharge: none Equipment Used at Home: cane, straight, single point Pharmacy Pharmacy/Medication needs: Pt is going to use [facility] and will use his Medicare Part D benefits. TRANSFORMATION LEAD and Pt called [facility], got him reestablished with the [facility], has not been seen since 2018 . Pt is now assigned to Team Linda Bob. TRANSFORMATION LEAD p/c with Rudolph at [facility] Team Linda Bob, states they will be calling Pt for follow up appt and will send referral for outpatient wound care. TRANSFORMATION LEAD p/c with Carol at [facility], states she has received [facility] orders in the p ast and will follow up with Dr. Bob's office. TRANSFORMATION LEAD provided referral and faxed Home health referral. [...] Bed Mobility Supine to Sit, Level of [place]: modified independent Sit to Supine, Level of [place]: modified independent Safety Issues: decreased use of legs for bridging/pushing Transfers Sit-Stand, Level of [place]: supervised Stand-Sit, Level of [place]: supervised Tpv-Tlhdy-Hja, Assistive Device: none Gait Level of [place]: supervised Assistive Device: none Distance (feet): 40 Goals Reflects last filed data and may be from multiple contributors. All Bed Mobility Goal Most Recent Value LTG Status new at 10/09/2019 1108 LTG [place] Level modified independent at 10/09/2019 1108 LTG Assistive Device none at 10/09/2019 1108 All Transfers Goal Most Recent Value LTG Status new at 10/09/2019 1108 LTG [place] Level modified independent at 10/09/2019 1108 LTG Assistive Device 2 wheeled walker (FWW) at 10/09/2019 1108 Gait Goal Most Recent Value LTG Status new at 10/09/2019 1108 LTG [place] Level modified independent at 10/09/2019 1108 LTG Assistive Device 2 wheeled walker (FWW) at 10/09/2019 1108 LTG Distance (feet) 100 at 10/09/2019 1108 Stair Goal Most Recent Value LTG Status new at 10/09/2019 1108 LTG [place] Level modified independent at 10/09/2019 1108 LTG Assistive Device 1 rail at 10/09/2019 1108 LTG Number of Stairs 3 at 10/09/2019 1108 PT Time Calculation Individual Start Time: 1048 Individual Stop Time: 1113 Individual Total Time: 25 PT Total Treatment Time: 25 lan of Celeset Smith RN - 10/16/2019 11:06 AM PDTPt ready for discharge. Ambulating well with no a ssistive devices. Nonskid socks in place. Bed in low position and locked. Celeste Gavriia RN 10/16/19 lan of Elijah Bradley RN [...] bed rails Supine to Sit, Level of [place]: modified independent Safety Issues: decreased use of legs for bridging/pushing Impairments: ROM decreased, strength decreased Transfers Sit-Stand, Level of [place]: stand by assist, verbal cues required Stand-Sit, Level of [place]: stand by assist, verbal cues required Hvp-Btedx-Sql, Assistive Device: 2 wheeled walker (FWW), none Toilet, Level of [place]: stand by assist, verbal cues required Toilet, Assistive Device: 2 wheeled walker (FWW), grab bars Gait Gait Comments: antalgic gait with flexed trunk posture and intermittent crouch position Level of [place]: stand by assist, verbal cues required(verbal cues [...] LTG Status new at 10/09/2019 1108 LTG [place] Level modified independent at 10/09/2019 1108 LTG Assistive Device none at 10/09/2019 1108 All Transfers Goal Most Recent Value LTG Status new at 10/09/2019 1108 LTG [place] Level modified independent at 10/09/2019 1108 LTG Assistive Device 2 wheeled walker (FWW) at 10/09/2019 1108 Gait Goal Most Recent Value LTG Status new at 10/09/2019 1108 LTG [place] Level modified independent at 10/09/2019 1108 LTG Assistive Device 2 wheeled walker (FWW) at 10/09/2019 1108 LTG Distance (feet) 100 at 10/09/2019 1108 Stair Goal Most Recent Value LTG Status new at 10/09/2019 1108 LTG [place] Level modified independent at 10/09/2019 1108 LTG [...] Bed Mobility Supine to Sit, Level of [place]: minimal assist (75% patient effort) Transfers Sit-Stand, Level of [place]: minimal assist (75% patient effort) Gait Level of [place]: minimal assist (75% patient effort) Assistive Device: [...] LTG Status new at 10/09/2019 1108 LTG [place] Level modified independent at 10/09/2019 1108 LTG Assistive Device none at 10/09/2019 1108 All Transfers Goal Most Recent Value LTG Status new at 10/09/2019 1108 LTG [place] Level modified independent at 10/09/2019 1108 LTG Assistive Device 2 wheeled walker (FWW) at 10/09/2019 1108 Gait Goal Most Recent Value LTG Status new at 10/09/2019 1108 LTG [place] Level modified independent at 10/09/2019 1108 LTG Assistive Device 2 wheeled walker (FWW) at 10/09/2019 110 LTG Distance (feet) 100 at 10/09/2019 1108 Stair Goal Most Recent Value LTG Status new at 10/09/2019 1108 LTG [place] Level modified independent at 10/09/2019 1108 LTG [...] participation. Pt with an i ncontinent BM. CANAL SUPERINTENDENT and PT assisting with mobility and pericare. [...] Transfers Additional Documentation: toilet Sit-Stand, Level of [place]: minimal assist (75% patient effort) Stand-Sit, Level of [place]: minimal assist (75% patient effort) Ctk-Ncnin-Kys, Assistive Device: 2 wheeled walker (FWW) Toilet, Level of [place]: minimal assist (75% patient effort) Toilet, Assistive Device: 2 wheeled walker (FWW) Safety Issues: loses balance backward, weight-shifting ability decreased, step length decre ased, sequencing ability decreased, balance decreased during turns Impairments: ROM decreased, strength decreased, impaired balance Gait Gait Comments: reduced step length BLE, excessive trunk flexion, reduced weight bearing RLE , avoidance COG over HAN Level of [place]: minimal assist (75% patient effort) Assistive Device: 2 wheeled walker (FWW) Distance (feet): 15x2 Goals Reflects last filed data and may be from multiple contributors. All Bed Mobility Goal Most Recent Value LTG Status new at 10/09/2019 1108 LTG [place] Level modified independent at 10/09/2019 1108 LTG Assistive Device none at 10/09/2019 1108 All Transfers Goal Most Recent Value LTG Status new at 10/09/2019 1108 LTG [place] Level modified independent at 10/09/2019 1108 LTG Assistive Device 2 wheeled walker (FWW) at 10/09/2019 1108 Gait Goal Most Recent Value LTG Status new at 10/09/2019 1108 LTG [place] Level modified independent at 10/09/2019 1108 LTG Assistive Device 2 wheeled walker (FWW) at 10/09/2019 1108 LTG Distance (feet) 100 at 10/09/2019 1108 Stair Goal Most Recent Value LTG Status new at 10/09/2019 1108 LTG [place] Level modified independent at 10/09/2019 1108 LTG [...] Recommendations: 2 wheeled walker (FWW), shower chair, oyster sorter, sock aide, long handled sponge, long handled [...] bed rails Supine to Sit, Level of [place]: minimal assist (75% patient effort) Sit to Supine, Level of [place]: moderate assist (50% patient effort) Safety Issues: decreased use of legs for bridging/pushing, decreased use of arms for pushin g/pulling Impairments: ROM decreased, strength decreased, postural control impaired, pain Transfers Additional Documentation: sit to/from stand Sit-Stand, Level of [place]: minimal assist (75% patient effort) Stand-Sit, Level of [place]: maximal assist (25% patient effort) Gyf-Ontgw-Ezr, Assistive Device: 2 wheeled walker (FWW), gait belt Safety Issues: loses balance backward, weight-shifting ability decreased, step length decre ased, sequencing ability decreased, balance decreased during turns Impairments: ROM decreased, strength decreased, impaired balance ROM Comments: WFL Strength Comments: WFL. B specialist field engineer strength 4/5. B UE MMT 4/5 except for biceps 3+/5 Balance Sitting Balance: Static: good balance Sitting Balance: Dynamic: good balance Standing Balance: Static: poor balance Standing Balance: Dynamic: poor balance Goals Reflects last filed data and may be from multiple contributors. LB Dressing Goal Most Recent Value LTG Status new at 10/10/2019 1545 LTG [place] Level minimum assist (75% patient effort), set up required at 10/10/2019 1545 LTG Adaptive Equipment oyster sorter, sock-aid at 10/10/2019 1545 Toilet Transfer Goal Most Recent Value LTG Status new at 10/10/2019 1545 LTG [place] Level minimum assist (75% patient effort) at [...] at bedside in ICU on turnover by project development leader. Patient stat es he feels better, no [...] bed rails Supine to Sit, Level of [place]: minimal assist (75% patient effort) Transfers Bed-Chair, Level of [place]: minimal assist (75% patient effort) Oue-Qytbz-Seq, Assistive Device: 2 wheeled walker (FWW), gait belt Sit-Stand, Level of [place]: minimal assist (75% patient effort), stand by assist Stand-Sit, Level of [place]: minimal assist (75% patient effort), stand by assist Gait Gait Comments: reduced step length BLE, excessive trunk flexion, reduced weight bearing RLE , avoidance COG over HAN Level of [place]: minimal assist (75% patient effort), verbal cues [...] LTG Status new at 10/09/2019 1108 LTG [place] Level modified independent at 10/09/2019 1108 LTG Assistive Device none at 10/09/2019 1108 All Transfers Goal Most Recent Value LTG Status new at 10/09/2019 1108 LTG [place] Level modified independent at 10/09/2019 1108 LTG Assistive Device 2 wheeled walker (FWW) at 10/09/2019 1108 Gait Goal Most Recent Value LTG Status new at 10/09/2019 1108 LTG [place] Level modified independent at 10/09/2019 1108 LTG Assistive Device 2 wheeled walker (FWW) at 10/09/2019 1108 LTG Distance (feet) 100 at 10/09/2019 1108 Stair Goal Most Recent Value LTG Status new at 10/09/2019 1108 LTG [place] Level modified independent at 10/09/2019 1108 LTG [...] Family Contact Information: Name: Lele Conley (Roommate) Hibplptqcelnib signed by PORTILLO Varner at 10/10/2019 10:13 [...] HOB elevated Supine to Sit, Level of [place]: maximal assist (25% patient effort) Safety Issues: decreased use of legs for bridging/pushing, impaired trunk control for bed m obility Impairments: pain, strength decreased, ROM decreased Transfers Additional Documentation: sit to/from stand, bed to/from chair Bed-Chair, Level of [place]: moderate assist (50% patient effort) Aqw-Usxvh-Fct, Assistive Device: 2 wheeled walker (FWW) Sit-Stand, Level of [place]: minimal assist (75% patient effort) Stand-Sit, Level of [place]: minimal assist (75% patient effort) Cpw-Gkgrv-Qzh, Assistive Device: 2 wheeled walker (FWW) Safety [...] LTG Status new at 10/09/2019 1108 LTG [place] Level modified independent at 10/09/2019 1108 LTG Assistive Device none at 10/09/2019 1108 All Transfers Goal Most Recent Value LTG Status new at 10/09/2019 1108 LTG [place] Level modified independent at 10/09/2019 1108 LTG Assistive Device 2 wheeled walker (FWW) at 10/09/2019 1108 Gait Goal Most Recent Value LTG Status new at 10/09/2019 1108 LTG [place] Level modified independent at 10/09/2019 1108 LTG Assistive Device 2 wheeled walker (FWW) at 10/09/2019 1108 LTG Distance (feet) 100 at 10/09/2019 1108 Stair Goal Most Recent Value LTG Status new at 10/09/2019 1108 LTG [place] Level modified independent at 10/09/2019 1108 LTG [...] 1.7 Estimated Energy Needs Energy Calorie Requirements: 8320-2697(28-32 kcal/kg per 54.3 kg admit wt ) [...] Ongoing, progressing Flowsheets (Taken 10/09/2019 1024) Participants: keycase assembler dietitian/nutrition services advanced practice nurse nursing pharmacy [...] started on clear liquid diet. lan of [facility] Viv Santos MSW - 10/09/2019 9:44 AM PDTAttended morning rounds. Pt transferred to ICU post -op for repair of thrombosed fem-fem artery bypass. Progressing. Await PT to julissa and alissa tinajero. Has no PCP per CM note and FS. Insurance is [facility]. lan of [facility] Urszula Garcia RN - 10/09/2019 8:02 [...] 10/08/2019 2:31 PM PDT BRIEF OPERATIVE NOTE [facility] Pt. Name/Age/: Jairo Theodore 59 y.o. 1960 Med. Record Number: [id number] Date of admission: 10/03/2019 Date of Operation/Procedure: [...] disease (HCC) [I73.9] Surgeon: Magdiel Arteaga MD Business Development Coordinator: Maicol Abel PA-C Anesthesia Provider(s): Anesthesiologist: Orlando Ambriz DO HAND BANDER: Som Garcia CRNA Anesthesia Type: Anesthesia type not filed in the log. Procedure(s): THROMBECTOMY / EMBOLECTOMY of fem fem bypass BILATERAL BYPASS GRAFT FEMORAL-POPLITEAL WITH 6 MM PTFE ANGIOGRAM - EXTREMITY BILATERAL (39312) Operative Findings: Thrombosed femoral to femoral artery [...] Implant Name Type Inv. Item Serial No. Load Out Person Lot No. LRB No. Used Action GRAFT VAS PROPATEN 6-80MM - [id number] Graft GRAFT VAS PROPATEN 6-80MM [id number] WL G ORE - WLGO NA N/A 1 Implanted GRAFT VAS PROPATEN 6-80MM - [id number] Graft GRAFT VAS PROPATEN 6-80MM [id number] WL G ORE - WLGO NA N/A 1 Implanted Counts: Instrument, sponge, and needle counts were correct prior to closure and at the con clusion of the case. Complications: None Disposition: The patient was taken to PACU Immediate Post-Operative Condition: Stable Electronically signed by: Magdiel Arteaga MD, 10/08/2019, 2:31 PM PDT p Note - Magdiel Arteaga MD - 10/08/2019 10 :06 AM PDT [facility] OPERATIVE REPORT PATIENT NAME: Jairo [...] the femorofemoral bypass. Using 2 CV 6 Cartwright-Jamie sutures the 6 mm bypass was anastomos [...] astomosis was created with 2 CV 6 Cartwright-Jamie sutures. Prior to completing the anastomosis the [...] an antibiotic solution. Hemostasis was achieved. 7 [place] drains were placed in both groins and [...] Magdiel Arteaga MD Vascular Surgery Dictation software, [employer], used which may contain error for similar sounding words even af ter review. Personal communication requested for any clarification. Electronically signed by: Magdiel Arteaga MD, 10/09/2019 10:06 AM PDT [facility] lan of Care - [...] PM PDT [facility] OPERATIVE REPORT PATIENT NAME: Jairo [...] vanced a wire and placed a 7 [place] sheath. We again attempted to select out [...] femoral endarterectomy was performed w ith a [place] elevator. There was good backbleeding from the [...] common femoral endarterectomy was performed using the [employer] elevator. After performing the endarterect carlyle there [...] copiously irrigated. There was good hemostasis. 7 [place] flat AUGUSTUS drains were placed in both [...] Magdiel Arteaga MD Vascular Surgery Dictation software, [employer], used which may contain error for similar sounding words even af ter review. Personal communication requested for any clarification. Electronically signed by: Magdiel Arteaga MD, 10/09/2019 9:28 AM PDT [facility] rief Op Note - Magdiel Arteaga MD - 10/07/2019 4:30 PM PDTFormatting of this note might be different from the or iginal. BRIEF OPERATIVE NOTE [facility] Pt. Name/Age/: Jairo Theodore 59 y.o. 1960 Med. Record Number: [id number] Date of admission: 10/03/2019 Date of Operation/Procedure: 10/07/2019 Preoperative Diagnosis: 1. Large right groin pseudoaneurysm 2. Peripheral arterial disease Postoperative Diagnosis: * Pseudoaneurysm (HCC) [I72.9] Surgeon: Magdiel Arteaga MD Business Development Coordinator: Maicol Abel PA-C Anesthesia Provider(s): Anesthesiologist: Rudolph Lowery MD HAND BANDER: Neville Rush CRNA Anesthesia Type: General Procedure(s): [...] Implant Name Type Inv. Item Serial No. Load Out Person Lot No. LRB No. Used Action GRAFT GORE PROPATEN [id number] - [id number] Graft GRAFT GORE PROPATEN [id number] WL GORE - WLGO NA Right 1 Implanted GRAFT HEMGRD KNIT [id number] - [id number] Graft GRAFT HEMGRD KNIT [id number] [employer] SALES - MAQU [id number] Right 1 Implanted [...] VSS with one SBP in 170s recheck [id number]. Report given to preop nurse and [id number] [...] bathroom clear of clutter. lan of [facility] - Carol Olivares MSW - 10/04/2019 [...] Notes: Pt resides with his friend in [place]. Pt is independent - no caregiver, home [...] of RLE and enlarging pseudoaneurysm of right GRILL PREP COOK. Pt scheduled for pseudoaneurysm repair on 10/04. [...] BUN 7* CREA 0.60* Estimated Energy Needs 8318-4308 kcal/day (28-32 kcal/kg per 54.3 kg admit [...] MCKEON | | | | | | [id number] | | | | | | | | +--------+ + + + + | 02/06/ Office | Vascular Surgery | Ricci De León, DNP | | | 2019 | Visit | | [address] | | | | | | [place], [place] | | | | | | [address] | | | | | | | | | | | | Magdiel Arteaga MD | | | | | | [address] | | | | | | [place] [address] | | | | | | [place] [address] | | | | | | [phone] | | | | | | | [...] Expected: | | | | e | ([facility]) right aorto | 10/23/2019, Expires: | | [...] Occurrences | | | | e | ([facility]) right aorto | starting 10/16/2019 | | [...] Expected: | | | | e | ([facility]) right aorto | 10/23/2019, Expires: | | [...] | Health | Referral | e | ([facility]) right aorto | | | | | | femoral bypass | | | | | | Cellulitis of right | | | | | | foot 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 ([facility]) | | | | | | Post-operative [...] LABORATORY | | | | performed at [facility], [address] | | | | | | [address] [facility], | | | | | | [place] [address] | | | | + + + + + + + + | Specimen | + + | Blood | + + + + + + + | Performing | Address | City/State/Zipcode | Phone Number | | Organization | | | | + + + + + | [facility] | [address] | [place] [address] | [phone] | + + + + + Magnesium (10/16/2019 5:11 AM PDT) + + + + + + | Component | Value | Ref Range | Performed | Pathologist | | | | | At | Signature | + + + + + + | Magnesium | 1.7Comment: Testing | 1.7 - 2.4 mg/dL | [facility] | | | | performed at [facility];[address] | | LABORATORY | | | | [address];[place] | | | | | | [address] | | | | + + + + + + + + | Specimen | + + | Blood | + + + + + + + | Performing | Address | City/State/Zipcode | Phone Number | | Organization | | | | + + + + + | [facility] | [address] | [place] [address] | [phone] | + + + + + Potassium (10/16/2019 5:11 AM PDT) + + + + + + | Component | Value | Ref Range | Performed | Pathologist | | | | | At | Signature | + + + + + + | K | 3.0 (L)Comment: Testing | 3.5 - 4.9 | [facility] | | | | performed at [facility];[address] | mmol/L | LABORATORY | | | | [address];[place] | | | | | | [address] | | | | + + + + + + + + | Specimen | + + | Blood | + + + + + + + | Performing | Address | City/State/Zipcode | Phone Number | | Organization | | | | + + + + + | [facility] | [address] | [place] [address] | [phone] | + + + + + CBC [...] LABORATORY | | | | performed at [facility], [address] | | | | | [address], | | | | | | [place] [address] | | | | + + + + + + + + | Specimen | + + | Blood | + + + + + + + | Performing | Address | City/State/Zipcode | Phone Number | | Organization | | | | + + + + + | [facility] | [address] | [place] [address] | [phone] | + + + + + Magnesium (10/15/2019 5:13 AM PDT) + + + + + + | Component | Value | Ref Range | Performed | Pathologist | | | | | At | Signature | + + + + + + | Magnesium | 1.9Comment: Testing | 1.7 - 2.4 mg/dL | [facility] | | | | performed at [facility];[address] | | LABORATORY | | | | [address];[place] | | | | | | [address] | | | | + + + + + + + + | Specimen | + + | Blood | + + + + + + + | Performing | Address | City/State/Zipcode | Phone Number | | Organization | | | | + + + + + | [facility] | [address] | [place] [address] | [phone] | + + + + + Basic [...] | | | | | performed at [facility], [address] | | | | | | [address], | | | | | | [place] [address] | | | | + + + + + + + + | Specimen | + + | Blood | + + + + + + + | Performing | Address | City/State/Zipcode | Phone Number | | Organization | | | | + + + + + | [facility] | [address] | [place] [address] | [phone] | + + + + + Potassium (10/14/2019 3:28 PM PDT) + + + + + + | Component | Value | Ref Range | Performed | Pathologist | | | | | At | Signature | + + + + + + | K | 3.3 (L)Comment: Testing | 3.5 - 4.9 | [facility] | | | | performed at [facility];[address] | mmol/L | LABORATORY | | | | [address];[place] | | | | | | [address] | | | | + + + + + + + + | Specimen | + + | Blood | + + + + + + + | Performing | Address | City/State/Zipcode | Phone Number | | Organization | | | | + + + + + | [facility] | [address] | [place] [address] | [phone] | + + + + + Magnesium (10/14/2019 3:28 PM PDT) + + + + + + | Component | Value | Ref Range | Performed | Pathologist | | | | | At | Signature | + + + + + + | Magnesium | 2.1Comment: Testing | 1.7 - 2.4 mg/dL | [facility] | | | | performed at [facility];[address] | | LABORATORY | | | | [address];[place] | | | | | | [address] | | | | + + + + + + + + | Specimen | + + | Blood | + + + + + + + | Performing | Address | City/State/Zipcode | Phone Number | | Organization | | | | + + + + + | [facility] | [address] | [place] [address] | [phone] | + + + + + Phosphorus (10/14/2019 3:28 PM PDT) + + + + + + | Component | Value | Ref Range | Performed | Pathologist | | | | | At | Signature | + + + + + + | Phosphorus | 1.3 (L)Comment: Testing | 2.3 - 4.8 mg/dL | [facility] | | | | performed at [facility];[address] | | LABORATORY | | | | [address];[place] | | | | | | [address] | | | | + + + + + + + + | Specimen | + + | Blood | + + + + + + + | Performing | Address | City/State/Zipcode | Phone Number | | Organization | | | | + + + + + | [facility] | [address] | [place] [address] | [phone] | + + + + + CBC [...] LABORATORY | | | | performed at [facility], [address] | | | | | [address], | | | | | | [place] [address] | | | | + + + + + + + + | Specimen | + + | Blood | + + + + + + + | Performing | Address | City/State/Zipcode | Phone Number | | Organization | | | | + + + + + | [facility] | [address] | [place] [address] | [phone] | + + + + + Magnesium (10/14/2019 5:49 AM PDT) + + + + + + | Component | Value | Ref Range | Performed | Pathologist | | | | | At | Signature | + + + + + + | Magnesium | 1.6 (L)Comment: Testing | 1.7 - 2.4 mg/dL | [facility] | | | | performed at [facility];[address] | | LABORATORY | | | | [address];[place] | | | | | | [address] | | | | + + + + + + + + | Specimen | + + | Blood | + + + + + + + | Performing | Address | City/State/Zipcode | Phone Number | | Organization | | | | + + + + + | [facility] | [address] | [place] [address] | [phone] | + + + + + Basic [...] | | | | | performed at [facility], [address] | | | | | | [facility] [place], | | | | | | [place] [address] | | | | + + + + + + + + | Specimen | + + | Blood | + + + + + + + | Performing | Address | City/State/Zipcode | Phone Number | | Organization | | | | + + + + + | [facility] | [address] | [place] [address] | [phone] | + + + + + Potassium (10/13/2019 11:07 AM PDT) + + + + + + | Component | Value | Ref Range | Performed | Pathologist | | | | | At | Signature | + + + + + + | K | 3.5Comment: Testing | 3.5 - 4.9 | [facility] | | | | performed at [facility];[address] | mmol/L | LABORATORY | | | | [address];[place] | | | | | | [address] | | | | + + + + + + + + | Specimen | + + | Blood | + + + + + + + | Performing | Address | City/State/Zipcode | Phone Number | | Organization | | | | + + + + + | [facility] | [address] | [place] [address] | [phone] | + + + + + Potassium (10/13/2019 4:37 AM PDT) + + + + + + | Component | Value | Ref Range | Performed | Pathologist | | | | | At | Signature | + + + + + + | K | 3.5Comment: Testing | 3.5 - 4.9 | [facility] | | | | performed at [facility];[address] | mmol/L | LABORATORY | | | | [facility];[place], [place] | | | | | | [address] | | | | + + + + + + + + | Specimen | + + | Blood | + + + + + + + | Performing | Address | City/State/Zipcode | Phone Number | | Organization | | | | + + + + + | [facility] | [address] | [place] [address] | [phone] | + + + + + Magnesium (10/13/2019 4:37 AM PDT) + + + + + + | Component | Value | Ref Range | Performed | Pathologist | | | | | At | Signature | + + + + + + | Magnesium | 1.7Comment: Testing | 1.7 - 2.4 mg/dL | [facility] | | | | performed at [facility];[address] | | LABORATORY | | | | [address];[place] | | | | | | [address] | | | | + + + + + + + + | Specimen | + + | Blood | + + + + + + + | Performing | Address | City/State/Zipcode | Phone Number | | Organization | | | | + + + + + | [facility] | [address] | [place] [address] | [phone] | + + + + + Basic [...] | | | | | performed at [facility] [facility] [place] | | | | | | [facility];[place], [place] | | | | | | [address] | | | | + + + + + + + + | Specimen | + + | Blood | + + + + + + + | Performing | Address | City/State/Zipcode | Phone Number | | Organization | | | | + + + + + | [facility] | [address] | [place] [address] | [phone] | + + + + + Hemoglobin [...] [facility] | | | | performed at [facility];[address] | | LABORATORY | | | | [address] [facility];[place], [place] | | | | | | [address] | | | | + + + + + + + + | Specimen | + + | Blood | + + + + + + + | Performing | Address | City/State/Zipcode | Phone Number | | Organization | | | | + + + + + | [facility] | [address] | [place] [address] | [phone] | + + + + + Potassium (10/12/2019 4:28 PM PDT) + + + + + + | Component | Value | Ref Range | Performed | Pathologist | | | | | At | Signature | + + + + + + | K | 3.3 (L)Comment: Testing | 3.5 - 4.9 | [facility] | | | | performed at [facility];888 | mmol/L | LABORATORY | | | | [address];[place] | | | | | | [address] | | | | + + + + + + + + | Specimen | + + | Blood | + + + + + + + | Performing | Address | City/State/Zipcode | Phone Number | | Organization | | | | + + + + + | [facility] | [address] | [place] [address] | [phone] | + + + + + Clostridium [...] at | | | | | | [facility];[address] [place] [address] | | | | | | [facility];[place] [address] | | | | + + + + + + + + | Specimen | + + | Stool - Stool | | specimen (specimen) | + + + + + + + | Performing | Address | City/State/Zipcode | Phone Number | | Organization | | | | + + + + + | [facility] | [address] | [place] [address] | [phone] | + + + + + Potassium (10/12/2019 11:02 AM PDT) + + + + + + | Component | Value | Ref Range | Performed | Pathologist | | | | | At | Signature | + + + + + + | K | 3.3 (L)Comment: Testing | 3.5 - 4.9 | [facility] | | | | performed at [facility];888 | mmol/L | LABORATORY | | | | [address];[place], [place] | | | | | | [address] | | | | + + + + + + + + | Specimen | + + | Blood | + + + + + + + | Performing | Address | City/State/Zipcode | Phone Number | | Organization | | | | + + + + + | [facility] | [address] | [place] [address] | [phone] | + + + + + Type [...] + + + | BB BAND | [id number] | | [facility] | | | | | | LABORATORY | | + + + + + + | UNIT # | [id number] | | [facility] | | | | [...] | | | RESULT | performed at [facility];[address] | | LABORATORY | | | | [address];[place], [place] | | | | | | [address] | | | | + + + + + + | UNIT # | [id number] | | [facility] | | | | [...] | [address] | [place] [address] | [phone] | + + + + + Red [...] BANK | Testing performed at | | [facility] | | | COMMENT | [facility];[address] | | LABORATORY | | | | Blvd;[place] [address] | | | | + + + + + + + + | Specimen | + + | | + + + + + + + | Performing | Address | City/State/Zipcode | Phone Number | | Organization | | | | + + + + + | [facility] | [address] | [place] [address] | [phone] | + + + + + Magnesium (10/12/2019 4:08 AM PDT) + + + + + + | Component | Value | Ref Range | Performed | Pathologist | | | | | At | Signature | + + + + + + | Magnesium | 1.9Comment: Testing | 1.7 - 2.4 mg/dL | [facility] | | | | performed at [facility];[address] | | LABORATORY | | | | [address];[place], [place] | | | | | | [address] | | | | + + + + + + + + | Specimen | + + | Blood | + + + + + + + | Performing | Address | City/State/Zipcode | Phone Number | | Organization | | | | + + + + + | [facility] | [address] | [place] [address] | [phone] | + + + + + Comprehensive [...] | >60Comment: GFR <60: | >60 | [facility] | | | GFR | CHRONIC KIDNEY [...] | | | | | | MDRD [facility] traceable | | | | | | equation.Testing | | | | | | performed at [facility];[address] | | | | | | [address] [facility];[place], [place] | | | | | | [address] | | | | + + + + + + + + | Specimen | + + | Blood | + + + + + + + | Performing | Address | City/State/Zipcode | Phone Number | | Organization | | | | + + + + + | [facility] | [address] [facility] | [place] [address] | [phone] | + + + + + CBC [...] | [facility] | | | | NURSING [id number] H | g/dL | LABORATORY | | [...] | [facility] | | | | NURSING [id number] | | LABORATORY | | | | [...] LABORATORY | | | | performed at [facility];[address] | | | | | | [address];[place] | | | | | | [address] | | | | + + + + + + + + | Specimen | + + | Blood | + + + + + + + | Performing | Address | City/State/Zipcode | Phone Number | | Organization | | | | + + + + + | [facility] | [address] | [place] [address] | [phone] | + + + + + Urinalysis [...] - 1.030 | [facility] | | | [place], | | | LABORATORY | | | [...] | | LABORATORY | | | | [facility], [address] | | | | | | [place] | | | | | | [address] | | | | + + + [...] | + + + + + | [facility] | [address] | [place] [address] | [phone] | + + + + + Osmolality, Urine (10/11/2019 11:16 AM PDT) + + + + + + | Component | Value | Ref Range | Performed | Pathologist | | | | | At | Signature | + + + + + + | OSMO URINE | 239Comment: Testing | 50 - 1,200 | [facility] | | | | performed at [facility], [address] | mOsm/kg | LABORATORY | | | | [address], | | | | | | [place] [address] | | | | + + + [...] | + + + + + | [facility] | [address] | [place] [address] | [phone] | + + + + + Culture, [...] | | LABORATORY | | | | Blvd;[place] [address] | | | | + + + + + + | RESULT | NO GROWTH 6 DAYS | | [facility] | | | | | | LABORATORY | | + + + + + + | RESULT | Testing performed at | | [facility] | | | | [facility], [address] [facility] | | LABORATORY | | | | [facility], [place], [place] | | | | | | [id number]: Testing | | | | | | performed at [facility], [address] | | | | | | [address] [facility], [place], [place] | | | | | | [address] | | | | + + + + + + + + | Specimen | + + | Blood - Swab of line | | insertion site | | (specimen) | + + + + + + + | Performing | Address | City/State/Zipcode | Phone Number | | Organization | | | | + + + + + | [facility] | [address] | [place] [address] | [phone] | + + + + + XR [...] Report | | | Signed by: Jacky Mercdao John Sign Date/Time: 10/11/2019 10:39 AM | [...] Procedure Note | + + | Espinoza, [id number] - 10/11/2019 10:42 AM PDT | | [...] LABORATORY | | | | Blvd;[place] [address] | | | | + + + + + + | RESULT | NO GROWTH 6 DAYS | | [facility] | | | | | | LABORATORY | | + + + + + + | RESULT | Testing performed at | | [facility] | | | | [facility], [address] | | LABORATORY | | | | [place] | | | | | | [id number]: Testing | | | | | | performed at [facility], [address] | | | | | | [address] [place] | | | | | | [address] | | | | + + + + + + + + | Specimen | + + | Blood - Peripheral | | blood specimen | | (specimen) | + + + + + + + | Performing | Address | City/State/Zipcode | Phone Number | | Organization | | | | + + + + + | [facility] | [address] | [place] [address] | [phone] | + + + + + Sodium (10/11/2019 9:30 AM PDT) + + + + + + | Component | Value | Ref Range | Performed | Pathologist | | | | | At | Signature | + + + + + + | Na | 127 (L)Comment: Testing | 135 - 145 | [facility] | | | | performed at [facility];888 | mmol/L | LABORATORY | | | | [address];[place] | | | | | | [address] | | | | + + + + + + + + | Specimen | + + | Blood | + + + + + + + | Performing | Address | City/State/Zipcode | Phone Number | | Organization | | | | + + + + + | [facility] | [address] | [place] [address] | [phone] | + + + + + Osmolality, Serum (10/11/2019 9:30 AM PDT) + + + + + + | Component | Value | Ref Range | Performed | Pathologist | | | | | At | Signature | + + + + + + | Osmolality, | 262 (L)Comment: Testing | 280 - 301 | [facility] | | | Serum | performed at [facility], [address] | mOsm/kg | LABORATORY | | | | [address], | | | | | | [place] [address] | | | | + + + + + + + + | Specimen | + + | Blood | + + + + + + + | Performing | Address | City/State/Zipcode | Phone Number | | Organization | | | | + + + + + | [facility] | [address] | [place] [address] | [phone] | + + + + + Comprehensive [...] | | | | | performed at [facility];[address] | | | | | | [facility];[place], [place] | | | | | | [address] | | | | + + + + + + + + | Specimen | + + | Blood | + + + + + + + | Performing | Address | City/State/Zipcode | Phone Number | | Organization | | | | + + + + + | [facility] | [address] | [place] [address] | [phone] | + + + + + CBC [...] LABORATORY | | | | performed at [facility];[address] | | | | | | [address];[place] | | | | | | [address] | | | | + + + + + + + + | Specimen | + + | Blood | + + + + + + + | Performing | Address | City/State/Zipcode | Phone Number | | Organization | | | | + + + + + | [facility] | [address] | [place] [address] | [phone] | + + + + + Comprehensive [...] | | | | | performed at [facility];[address] | | | | | | [address] [facility];[place], [place] | | | | | | [address] | | | | + + + + + + + + | Specimen | + + | Blood | + + + + + + + | Performing | Address | City/State/Zipcode | Phone Number | | Organization | | | | + + + + + | [facility] | [address] | [place] [address] | [phone] | + + + + + Magnesium (10/10/2019 4:16 AM PDT) + + + + + + | Component | Value | Ref Range | Performed | Pathologist | | | | | At | Signature | + + + + + + | Magnesium | 1.8Comment: Testing | 1.7 - 2.4 mg/dL | [facility] | | | | performed at [facility];[address] | | LABORATORY | | | | [address];[place], [place] | | | | | | [address] | | | | + + + + + + + + | Specimen | + + | Blood | + + + + + + + | Performing | Address | City/State/Zipcode | Phone Number | | Organization | | | | + + + + + | [facility] | [address] | [place] [address] | [phone] | + + + + + CBC [...] | | | Absolute | performed at [facility];[address] | K/uL | LABORATORY | | | | [address];[place] | | | | | | [address] | | | | + + + + + + + + | Specimen | + + | Blood | + + + + + + + | Performing | Address | City/State/Zipcode | Phone Number | | Organization | | | | + + + + + | [facility] | [address] | [place] [address] | [phone] | + + + + + Lactic Acid (10/09/2019 5:12 AM PDT) + + + + + + | Component | Value | Ref Range | Performed | Pathologist | | | | | At | Signature | + + + + + + | Lactate, | 1.8Comment: Testing | 0.4 - 2.0 | [facility] | | | Serum | performed at [facility];888 | mmol/L | LABORATORY | | | | [address];[place] | | | | | | [address] | | | | + + + + + + + + | Specimen | + + | Blood | + + + + + + + | Performing | Address | City/State/Zipcode | Phone Number | | Organization | | | | + + + + + | [facility] | [address] | [place] [address] | [phone] | + + + + + Comprehensive [...] | >60Comment: GFR <60: | >60 | [facility] | | | GFR | CHRONIC KIDNEY [...] | | | | | | MDRD IDMI traceable | | | | | | equation.Testing | | | | | | performed at [facility];[address] | | | | | | [facility];[place], [place] | | | | | | [address] | | | | + + + + + + + + | Specimen | + + | Blood | + + + + + + + | Performing | Address | City/State/Zipcode | Phone Number | | Organization | | | | + + + + + | [facility] | [address] | [place] [address] | [phone] | + + + + + Procalcitonin (10/09/2019 5:10 AM PDT) + + + + + + | Component | Value | Ref Range | Performed | Pathologist | | | | | At | Signature | + + + + + + | PROCALCITON | 0.65 (H)Comment: | <0.5 ng/mL | [facility] | | | IN | INTERPRETIVE | [...] | | | | | | at [facility];[address] [place] [address] | | | | | | [facility];[place] [address] | | | | + + + + + + + + | Specimen | + + | Blood | + + + + + + + | Performing | Address | City/State/Zipcode | Phone Number | | Organization | | | | + + + + + | [facility] | [address] [facility] | [place] [address] | [phone] | + + + + + Phosphorus (10/09/2019 5:10 AM PDT) + + + + + + | Component | Value | Ref Range | Performed | Pathologist | | | | | At | Signature | + + + + + + | Phosphorus | 4.0Comment: Testing | 2.3 - 4.8 mg/dL | [facility] | | | | performed at [facility];[address] | | LABORATORY | | | | [address];[place] | | | | | | [address] | | | | + + + + + + + + | Specimen | + + | Blood | + + + + + + + | Performing | Address | City/State/Zipcode | Phone Number | | Organization | | | | + + + + + | [facility] | [address] [facility] | [place] [address] | [phone] | + + + + + Magnesium (10/09/2019 5:10 AM PDT) + + + + + + | Component | Value | Ref Range | Performed | Pathologist | | | | | At | Signature | + + + + + + | Magnesium | 1.7Comment: Testing | 1.7 - 2.4 mg/dL | [facility] | | | | performed at [facility];[address] | | LABORATORY | | | | [address];[place], [place] | | | | | | [address] | | | | + + + + + + + + | Specimen | + + | Blood | + + + + + + + | Performing | Address | City/State/Zipcode | Phone Number | | Organization | | | | + + + + + | [facility] | [address] | [place] [address] | [phone] | + + + + + CBC [...] | | | | | performed at [facility];[address] | | | | | | [address];[place] | | | | | | [address] | | | | + + + + + + + + | Specimen | + + | Blood | + + + + + + + | Performing | Address | City/State/Zipcode | Phone Number | | Organization | | | | + + + + + | [facility] | [address] | [place] [address] | [phone] | + + + + + POC [...] | | | POC | performed at [facility];[address] | | LABORATORY | | | | [address];[place] | | | | | | [address] | | | | + + + + + + + + | Specimen | + + | | + + + + + + + | Performing | Address | City/State/Zipcode | Phone Number | | Organization | | | | + + + + + | [facility] | [address] | [place] [address] | [phone] | + + + + + Phosphorus (10/08/2019 5:23 PM PDT) + + + + + + | Component | Value | Ref Range | Performed | Pathologist | | | | | At | Signature | + + + + + + | Phosphorus | 3.4Comment: Testing | 2.3 - 4.8 mg/dL | [facility] | | | | performed at [facility];[address] | | LABORATORY | | | | [address];[place], [place] | | | | | | [address] | | | | + + + + + + + + | Specimen | + + | Blood | + + + + + + + | Performing | Address | City/State/Zipcode | Phone Number | | Organization | | | | + + + + + | [facility] | [address] | [place] [address] | [phone] | + + + + + Magnesium (10/08/2019 5:23 PM PDT) + + + + + + | Component | Value | Ref Range | Performed | Pathologist | | | | | At | Signature | + + + + + + | Magnesium | 1.8Comment: Testing | 1.7 - 2.4 mg/dL | [facility] | | | | performed at [facility];[address] | | LABORATORY | | | | [address];[place] | | | | | | [address] | | | | + + + + + + + + | Specimen | + + | Blood | + + + + + + + | Performing | Address | City/State/Zipcode | Phone Number | | Organization | | | | + + + + + | [facility] | [address] | [place] [address] | [phone] | + + + + + CBC [...] at | | | | | | [facility];[address] | | | | [address];[place] [address] | | | | + + + + + + + + | Specimen | + + | Blood | + + + + + + + | Performing | Address | City/State/Zipcode | Phone Number | | Organization | | | | + + + + + | [facility] | [address] | [place] [address] | [phone] | + + + + + Basic [...] | | | | | performed at [facility] | | | | | | [facility];[place], [place] | | | | | | [address] | | | | + + + + + + + + | Specimen | + + | Blood | + + + + + + + | Performing | Address | City/State/Zipcode | Phone Number | | Organization | | | | + + + + + | [facility] | [address] | [place] [address] | [phone] | + + + + + PTT (10/08/2019 5:23 PM PDT) + + + + + + | Component | Value | Ref Range | Performed | Pathologist | | | | | At | Signature | + + + + + + | PTT | 32Comment: Testing | 23 - 32 seconds | [facility] | | | | performed at [facility];8 | | LABORATORY | | | | [address];[place] | | | | | | [address] | | | | + + + + + + + + | Specimen | + + | Blood | + + + + + + + | Performing | Address | City/State/Zipcode | Phone Number | | Organization | | | | + + + + + | [facility] | [address] | [place] [address] | [phone] | + + + + + POC [...] | | | POC | performed at [facility];888 | g/dL | LABORATORY | | | | [address];[place], [place] | | | | | | [address] | | | | + + + + + + + + | Specimen | + + | | + + + + + + + | Performing | Address | City/State/Zipcode | Phone Number | | Organization | | | | + + + + + | [facility] | [address] | [place] [address] | [phone] | + + + + + POC ISTAT, CG8, Arterial (10/08/2019 1:22 PM PDT) + + + + + + | Component | Value | Ref Range | Performed | Pathologist | | | | | At | Signature | + + + + + + | pH, | 7.334 (L) | 7.350 - 7.450 | [facility] | | | Arterial, | | | [...] | | | POC | performed at [facility];888 | g/dL | LABORATORY | | | | [address];[place], [place] | | | | | | [address] | | | | + + + + + + + + | Specimen | + + | | + + + + + + + | Performing | Address | City/State/Zipcode | Phone Number | | Organization | | | | + + + + + | [facility] | [address] | [place] [address] | [phone] | + + + + + Basic [...] | | | | | performed at [facility], [address] | | | | | | [facility] [place], | | | | | | [place] [address] | | | | + + + + + + + + | Specimen | + + | Blood | + + + + + + + | Performing | Address | City/State/Zipcode | Phone Number | | Organization | | | | + + + + + | [facility] | [address] | [place] [address] | [phone] | + + + + + CBC [...] | | | Absolute | performed at [facility], [address] | K/uL | LABORATORY | | | | [address], | | | | | | [place] [address] | | | | + + + + + + + + | Specimen | + + | Blood | + + + + + + + | Performing | Address | City/State/Zipcode | Phone Number | | Organization | | | | + + + + + | [facility] | [address] | [place] [address] | [phone] | + + + + + Magnesium (10/08/2019 5:44 AM PDT) + + + + + + | Component | Value | Ref Range | Performed | Pathologist | | | | | At | Signature | + + + + + + | Magnesium | 1.6 (L)Comment: Testing | 1.7 - 2.4 mg/dL | [facility] | | | | performed at [facility];[address] | | LABORATORY | | | | [address];[place] | | | | | | [address] | | | | + + + + + + + + | Specimen | + + | Blood | + + + + + + + | Performing | Address | City/State/Zipcode | Phone Number | | Organization | | | | + + + + + | [facility] | [address] | [place] [address] | [phone] | + + + + + PTT (10/07/2019 5:21 PM PDT) + + + + + + | Component | Value | Ref Range | Performed | Pathologist | | | | | At | Signature | + + + + + + | PTT | 28Comment: Testing | 23 - 32 seconds | [facility] | | | | performed at [facility];[address] | | LABORATORY | | | | [address];[place], [place] | | | | | | [address] | | | | + + + + + + + + | Specimen | + + | Blood - Artery, | | Radial, Right | + + + + + + + | Performing | Address | City/State/Zipcode | Phone Number | | Organization | | | | + + + + + | [facility] | [address] | [place] [address] | [phone] | + + + + + Protime INR (10/07/2019 5:21 PM PDT) + + + + + + | Component | Value | Ref Range | Performed | Pathologist | | | | | At | Signature | + + + + + + | INR | 1.3Comment: REFERENCE | | [facility] | | | | RANGE:0.9 - 1.2 [...] | | | | | performed at [facility];[address] | | | | | | [facility];[place], [place] | | | | | | [address] | | | | + + + + + + + + | Specimen | + + | Blood - Artery, | | Radial, Right | + + + + + + + | Performing | Address | City/State/Zipcode | Phone Number | | Organization | | | | + + + + + | [facility] | [address] | [place] [address] | [phone] | + + + + + Basic [...] | | | | | performed at [facility];[address] | | | | | | [facility];[place], [place] | | | | | | [address] | | | | + + + + + + + + | Specimen | + + | Blood - Artery, | | Radial, Right | + + + + + + + | Performing | Address | City/State/Zipcode | Phone Number | | Organization | | | | + + + + + | [facility] | [address] | [place] [address] | [phone] | + + + + + CBC [...] LABORATORY | | | | performed at [facility];[address] | | | | | | [address];[place] | | | | | | [address] | | | | + + + + + + + + | Specimen | + + | Blood - Right upper | | arm structure (body | | structure) | + + + + + + + | Performing | Address | City/State/Zipcode | Phone Number | | Organization | | | | + + + + + | [facility] | [address] | [place] [address] | [phone] | + + + + + Surgical [...] | including foreign body giant cell reaction. AMB:[facility]:C2NR MICROSCOPIC | | | EXAMINATION:Histologic sections [...] attached red-white | | | fibromembranous tissue. Patient Assessment Coordinator sections are submitted in | | | [...] | LABORATORY:The technical component was performed by [facility] | | | [place], [address] [place] [address] (Production Cook: | | | Asia Rodriguez MD; CLIA# [id number]).Professional interpretation was | | | performed by [facility], [facility] | | | [place] [address] (Production Cook: Sol[employer] | | | Jacky Recio; CLIA#: [id number]). Diagnostician: Asia Rodriguez | | | MDPathologistElectronically Signed 10/10/2019 | | | | | |PERFORMING LABORATORY: | | |The technical component was performed by [facility], [address] [place] [address] (Production Cook: Asia Rodriguez MD; CLIA# [id number]). | | |Professional interpretation was performed by [facility], [facility], [address] [place] [address] (Production Cook: Solitario Recio M.D.; CLIA#: [id number]). | | | | | |Diagnostician: Asia [...] | | | POC | performed at [facility];[address] | g/[address] | LABORATORY | | | | [address];[place], [place] | | | | | | [address] | | | | + + + + + + + + | Specimen | + + | | + + + + + + + | Performing | Address | City/State/Zipcode | Phone Number | | Organization | | | | + + + + + | [facility] | [address] | [place] [address] | [phone] | + + + + + Red [...] | [facility] | | | COMMENT | [facility];[address] | LABORATORY | | | | [address];[place] [address] | | | | + + + + + + + + | Specimen | + + | | + + + + + + + | Performing | Address | City/State/Zipcode | Phone Number | | Organization | | | | + + + + + | [facility] | [address] | [place] [address] | [phone] | + + + + + POC [...] (L)Comment: Testing | 13.7 - 16.7 | [facility] | | | POC | performed at [facility];[address] | [address] | LABORATORY | | | [address];[place], [place] | | | | | | [address] | | | | + + + + + + + + | Specimen | + + | | + + + + + + + | Performing | Address | City/State/Zipcode | Phone Number | | Organization | | | | + + + + + | [facility] | [address] | [place] [address] | [phone] | + + + + + POC [...] | | | POC | performed at [facility];[address] | g/dL | LABORATORY | | | | [address];[place], [place] | | | | | | [address] | | | | + + + + + + + + | Specimen | + + | | + + + + + + + | Performing | Address | City/State/Zipcode | Phone Number | | Organization | | | | + + + + + | [facility] | [address] | [place] [address] | [phone] | + + + + + POC ISLILLIE, CG8, Arterial (10/07/2019 8:40 AM PDT) + + + + + + | Component | Value | Ref Range | Performed | Pathologist | | | | | At | Signature | + + + + + + | pH, | 7.314 (L) | 7.350 - 7.450 | [facility] | | | Arterial, | | | [...] | | | POC | performed at [facility];888 | g/dL | LABORATORY | | | | [address];[place] | | | | | | [address] | | | | + + + + + + + + | Specimen | + + | | + + + + + + + | Performing | Address | City/State/Zipcode | Phone Number | | Organization | | | | + + + + + | [facility] | [address] | [place] [address] | [phone] | + + + + + Red [...] | [facility] | | | COMMENT | [facility];[address] [facility] | | LABORATORY | | | | Blvd;[place] [address] | | | | + + + + + + + + | Specimen | + + | | + + + + + + + | Performing | Address | City/State/Zipcode | Phone Number | | Organization | | | | + + + + + | [facility] | [address] | [place] [address] | [phone] | + + + + + Magnesium (10/07/2019 3:55 AM PDT) + + + + + + | Component | Value | Ref Range | Performed | Pathologist | | | | | At | Signature | + + + + + + | Magnesium | 1.6 (L)Comment: Testing | 1.7 - 2.4 mg/dL | [facility] | | | | performed at [facility];[address] | | LABORATORY | | | | [address];[place], [place] | | | | | | [address] | | | | + + + + + + + + | Specimen | + + | Blood | + + + + + + + | Performing | Address | City/State/Zipcode | Phone Number | | Organization | | | | + + + + + | [facility] | [address] | [place] [address] | [phone] | + + + + + Type [...] + + + | BB BAND | TELESALES SUPERVISOR [address]30 | | [facility] | | | | | | LABORATORY | | + + + + + + | UNIT # | [id number] | | [facility] | | | | [...] + + + | UNIT # | [id number] | | [facility] | | | | [...] + + + | UNIT # | [id number] | | [facility] | | | | [...] + + + | UNIT # | [id number] | | [facility] | | | | [...] | | | RESULT | performed at [facility];[address] | | LABORATORY | | | | [address];[place], [place] | | | | | | [address] | | | | + + + + + + + + | Specimen | + + | Blood | + + + + + + + | Performing | Address | City/State/Zipcode | Phone Number | | Organization | | | | + + + + + | [facility] | [address] | [place] [address] | [phone] | + + + + + Basic [...] | >60Comment: GFR <60: | >60 | [facility] | | | GFR | CHRONIC KIDNEY [...] | | | | | | MDRD [facility] traceable | | | | | | equation.Testing | | | | | | performed at [facility] | | | | | | [facility];[place], [place] | | | | | | [address] | | | | + + + + + + + + | Specimen | + + | Blood | + + + + + + + | Performing | Address | City/State/Zipcode | Phone Number | | Organization | | | | + + + + + | [facility] | [address] | [place] [address] | [phone] | + + + + + CBC [...] 0.07Comment: Testing | 0.00 - 0.10 | [facility] | | | Absolute | performed at [facility];[address] | K/uL | LABORATORY | | | | [address];[place] | | | | | | [address] | | | | + + + + + + + + | Specimen | + + | Blood | + + + + + + + | Performing | Address | City/State/Zipcode | Phone Number | | Organization | | | | + + + + + | [facility] | [address] | [place] [address] | [phone] | + + + + + Magnesium (10/06/2019 6:27 AM PDT) + + + + + + | Component | Value | Ref Range | Performed | Pathologist | | | | | At | Signature | + + + + + + | Magnesium | 1.6 (L)Comment: Testing | 1.7 - 2.4 mg/dL | [facility] | | | | performed at [facility] | | LABORATORY | | | | [facility];[place], [place] | | | | | | [address] | | | | + + + + + + + + | Specimen | + + | Blood | + + + + + + + | Performing | Address | City/State/Zipcode | Phone Number | | Organization | | | | + + + + + | [facility] | [address] | [place] [address] | [phone] | + + + + + Basic [...] | >60Comment: GFR <60: | >60 | [facility] | | | GFR | CHRONIC KIDNEY [...] | | | | | | MDRD IDMI traceable | | | | | | equation.Testing | | | | | | performed at [facility], [address] | | | | | | [facility], [place], | | | | | | [place] [address] | | | | + + + + + + + + | Specimen | + + | Blood | + + + + + + + | Performing | Address | City/State/Zipcode | Phone Number | | Organization | | | | + + + + + | [facility] | [address] | [place] [address] | [phone] | + + + + + CBC [...] 0.08Comment: Testing | 0.00 - 0.10 | [facility] | | | Absolute | performed at [facility], [address] | K/uL | LABORATORY | | | | [address], | | | | | | [place] [address] | | | | + + + + + + + + | Specimen | + + | Blood | + + + + + + + | Performing | Address | City/State/Zipcode | Phone Number | | Organization | | | | + + + + + | [facility] | [address] [facility] | [place] [address] | [phone] | + + + + + Magnesium (10/05/2019 5:02 AM PDT) + + + + + + | Component | Value | Ref Range | Performed | Pathologist | | | | | At | Signature | + + + + + + | Magnesium | 1.7Comment: Testing | 1.7 - 2.4 mg/dL | [facility] | | | | performed at [facility] | | LABORATORY | | | | [address];[place], [place] | | | | | | [address] | | | | + + + + + + + + | Specimen | + + | Blood | + + + + + + + | Performing | Address | City/State/Zipcode | Phone Number | | Organization | | | | + + + + + | [facility] | [address] | [place] [address] | [phone] | + + + + + Basic [...] | >60Comment: GFR <60: | >60 | [facility] | | | GFR | CHRONIC KIDNEY [...] | | | | | | MDRD IDMI traceable | | | | | | equation.Testing | | | | | | performed at [facility], [address] | | | | | | [facility], [place], | | | | | | [place] [address] | | | | + + + + + + + + | Specimen | + + | Blood | + + + + + + + | Performing | Address | City/State/Zipcode | Phone Number | | Organization | | | | + + + + + | [facility] | [address] | [place] [address] | [phone] | + + + + + CBC [...] [address], | | | | | | [place] [address] | | | | + + + + + + + + | Specimen | + + | Blood | + + + + + + + | Performing | Address | City/State/Zipcode | Phone Number | | Organization | | | | + + + + + | [facility] | [address] | [place] [address] | [phone] | + + + + + ECHO [...] Procedure Note | + + | Espinoza, [id number] - 10/04/2019 12:10 PM PDT | | [...] KT | | | | performed at [facility];[address] | | LABORATORY | | | | [address];[place], [place] | | | | | | [address] | | | | + + + [...] [facility] | [address] | [place] [address] | [phone] | + + + + + Protime [...] | | | | | performed at [facility] | | | | | | [address] [facility];[place], [place] | | | | | | [address] | | | | + + + + + + + + | Specimen | + + | Blood | + + + + + + + | Performing | Address | City/State/Zipcode | Phone Number | | Organization | | | | + + + + + | [facility] | [address] | [place] [address] | [phone] | + + + + + Uric Acid (10/04/2019 4:26 AM PDT) + + + + + + | Component | Value | Ref Range | Performed | Pathologist | | | | | At | Signature | + + + + + + | Uric Acid | 3.2Comment: Testing | 3.2 - 8.6 mg/dL | [facility] | | | | performed at [facility], [address] | | LABORATORY | | | | [address], | | | | | | [place] [address] | | | | + + + + + + + + | Specimen | + + | Blood | + + + + + + + | Performing | Address | City/State/Zipcode | Phone Number | | Organization | | | | + + + + + | [facility] | [address] | [place] [address] | [phone] | + + + + + Lipid [...] | 80Comment: Testing | <100 mg/dL | [facility] | | | Calculated | performed at [facility], [address] | | LABORATORY | | | | [address], | | | | | | [place] [address] | | | | + + + + + + + + | Specimen | + + | Blood | + + + + + + + | Performing | Address | City/State/Zipcode | Phone Number | | Organization | | | | + + + + + | [facility] | [address] | [place] [address] | [phone] | + + + + + Comprehensive [...] | | | | | performed at [facility], [address] | | | | | | [address], | | | | | | [place] [address] | | | | + + + + + + + + | Specimen | + + | Blood | + + + + + + + | Performing | Address | City/State/Zipcode | Phone Number | | Organization | | | | + + + + + | [facility] | [address] | [place] [address] | [phone] | + + + + + CBC [...] | | | Absolute | performed at [facility], [address] | K/uL | LABORATORY | | | | [address], | | | | | | [place] [address] | | | | + + + + + + + + | Specimen | + + | Blood | + + + + + + + | Performing | Address | City/State/Zipcode | Phone Number | | Organization | | | | + + + + + | [facility] | [address] | [place] [address] | [phone] | + + + + + Coronavirus (COVID-19) NAAT (10/04/2019 12:49 AM PDT) + + + + + + | Component | Value | Ref Range | Performed | Pathologist | | | | | At | Signature | + + + + + + | SARS-CoV-2, | NEGATIVEComment: This | NEG | [facility] | | | NAAT | test was developed and | | LABORATORY | | | (COVID-19) | its performance | | | | | | characteristics | | | | | | [facility] It | | | | | | [...] | | | | | performed at [facility];[address] | | | | | | [facility];[place], [place] | | | | | | [address] | | | | + + + + + + + + | Specimen | + + | Tissue - Entire | | nasopharynx (body | | structure) | + + + + + + + | Performing | Address | City/State/Zipcode | Phone Number | | Organization | | | | + + + + + | [facility] | [address] | [place] [address] | [phone] | + + + + + ECG [...] | | | | XIANG HART MD ([id number]) | | | | | | on [...] LABORATORY | | | | [address];[place] [address] | | | | + + + + + + + + | Specimen | + + | Blood | + + + + + + + | Performing | Address | City/State/Zipcode | Phone Number | | Organization | | | | + + + + + | [facility] | [address] | [place] [address] | [phone] | + + + + + Comprehensive [...] | | | | | performed at [facility] | | | | | | [facility];[place], [place] | | | | | | [address] | | | | + + + + + + + + | Specimen | + + | Blood | + + + + + + + | Performing | Address | City/State/Zipcode | Phone Number | | Organization | | | | + + + + + | [facility] | [address] | [place] [address] | [phone] | + + + + + CBC [...] 0.06Comment: Testing | 0.00 - 0.10 | [facility] | | | Absolute | performed at [facility];[address] | [address] | LABORATORY | | | | [address];[place], [place] | | | | | | [address] | | | | + + + + + + + + | Specimen | + + | Blood | + + + + + + + | Performing | Address | City/State/Zipcode | Phone Number | | Organization | | | | + + + + + | [facility] | [address] | [place] [address] | [phone] | + + + + + documented [...] | | | | | | Starting [facility] 10/12/19 at 1744 | | | [...]
--- OUTSIDE RECORDS SUMMARY | ~2019-11-18 | XMS | Encounter Summary ---
Demographics + + + | Address | [address] | | | [place] [address] | + + + | Home Phone | | + + + | Preferred Language | Unknown | + + + | Marital Status | Single | + + + | Sabianist Affiliation | BAP | + + + | Race | White | + + + | Ethnic Group | Not or | + + + Author + + + | Author | [facility] [employer] [facility] | + + + | Organization | [facility] [employer] [facility] | + + + | Address | Unknown | + + + | Phone | Unavailable | + + + Support + + +---------+ + | Name | Relationship | Address | Phone | + + +---------+ + | Lele Conley | ECON | Unknown | | + + +---------+ + Care Team Providers + +------+ + | Care Topographical Surveyor Name | Role | Phone | + [...] | | Transcribed | [facility] | Beny Ayesha Catherine | | | | | Florin Mailcode: [address] | [place], [place] | | | | | [facility] | [address] | | | | | [place], [place] | [phone] | | | | | [address] | | | | | | [phone] | | | +--------+ + + + [...] 04/30/2007 12:00 AM PSTAssociated Order(s): OPERATION RECORD [id number] FROILAN JUAREZ [id number] Date: 04/30/2007 Attending Surgeon: Orlando Churchill M.D. Co-Surgeon: Rudolph Brewer M.D. Bus Greaser(s): Jacky Morgan M.D. 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 Procedures Performed: Endovascular repair of abdominal aortic pseudoaneurysm. Anesthesia: General. Indications: This is a 47-year-old man who was flown [facility] [...] 2. The aneurysm was repaired with 2 [employer] endovascular components. The most proximal component is [...] direct vision into the abdominal aorta. A 4-[place] Islander pigtail catheter was then placed over the guidewire at approximately the level of the renal artery origins. A separate site on the graft limb was then punctured with an 18-gauge needle, and the guidewire advanced into the abdominal aorta. The patient was systematically heparinized at this point. A 16-[place] Islander sheath was then placed over the guidewire [...] the right aortofemoral graft limb. An iliac radiological health specialist that is 12 mm at the proximal [...] condition. Orlando Churchill M.D. OUSMANE / HS [id number] / [id number] / [id number] / Electronically signed by Orlando Churchill 05-13-2007 [...] Churchill MD - 04/30/2007 12:00 AM PST [id number] | | [id number] FROILAN JUAREZ [id number] Date: | | 04/30/2007 Attending Surgeon: Orlando Churchill M.D. Co-Surgeon: Rudolph Brewer M.D. | | Bus Greaser(s): Leroy Jay M.D. Marc Arevalo M.D. Preoperative [...] The aneurysm was repaired with 2 [employer] endovascular components. | | The most proximal [...] into the | | abdominal aorta. A 4-[place] Islander pigtail catheter was then placed over the guidewire at | | approximately the level of the renal artery origins. A separate site on the graft limb | | was then punctured with an 18-gauge needle, and the guidewire advanced into the | | abdominal aorta. The patient was systematically heparinized at this point. A 16-[place] Islander | | sheath was then placed over [...] aortofemoral graft limb. An | | iliac radiological health specialist that is 12 mm at the proximal [...] condition. Orlando Churchill M.D. OUSMANE / REBEL [id number] / [id number] / [id number] / D: | | 04/30/2007 Electronically signed [...] direct vision into the abdominal aorta. A 4-[place] Islander pigtail | | catheter was then placed over the guidewire at approximately the level of | | the renal artery origins. | | | | A separate site on the graft limb was then punctured with an 18-gauge | | needle, and the guidewire advanced into the abdominal aorta. The patient | | was systematically heparinized at this point. A 16-[place] Islander sheath was then | | placed over [...] | | aortofemoral graft limb. An iliac radiological health specialist that is 12 mm at the proximal [...] | | GJL / HS | | [id number] / [id number] / [id number] / | | | | | | | | | | | | Electronically signed by Orlando Churchill 05-13-2007 01:33:44 PM | | | | | + + documented in this encounter Visit Diagnoses Not on filedocumented in this encounter"
--- OUTSIDE RECORDS SUMMARY | ~2019-11-18 | XMS | Encounter Summary ---
Demographics + + + | Address | [address] | | | [place] [address] | + + + | Home Phone [...] Providers + +------+ + | Care Manager Fine Name | Role | Phone | + [...] + + + | 10/16/ Telephone | [facility] | Rachel Juarez, | Follow-up | | 2019 | | VASCULAR SURGERY | RN | | | | | [address] | | | | | | [place] | | | | | | [address] | | | | | | [phone] | | | +--------+ + + + [...] Justinjeanne Iveth Desmond - [facility]/2019 [facility] [...] | | | | | | [place] | | | | | | [place] [address] | | | | | | [phone] | | | | | | | | +--------+ + + + + documented as of this encounter Visit Diagnoses Not on filedocumented in this encounter"
--- OUTSIDE RECORDS SUMMARY | ~2019-11-18 | XMS | Encounter Summary ---
Demographics + + + | Address | [address] | | | [place] [address] | + + + | Home Phone | | + + + | Preferred Language | Unknown | + + + | Marital Status | Single | + + + | Yarsani Affiliation | BAP | + + + | Race | White | + + + | Ethnic Group | Not or | + + + Author + + + | Author | [facility] [employer] [facility] | + + + | Organization | [facility] | + + + | Address | Unknown | + + + | Phone | Unavailable | + + + Support + + +---------+ + | Name | Relationship | Address | Phone | + + +---------+ + | Lele Conley | ECON | Unknown | | + + +---------+ + Care Team Providers + +------+ + | Care Warp Spinner Name | Role | Phone | + [...] | | | | | [place], | | | | | | [place] [address] | | | +--------+ + + + [...] Anesthesia PostO p Report Patient: LARRY THEODORE [facility] Rec: [id number] Sex M Bdate: 1960 Date/Time Data Entered Into [facility] Anesth PostOp Surgery Date [id number] 05/02/07 12:07 Anesthesiologist NOEL CASH 05/02/07 12:07 [...] | + + | 05/02/2007 12:07 PM [facility] Anesthesia PostOp Report | | | | Patient: LARRY THEODORE [facility] Rec: [id number] Sex M Bdate: 1960 | | Date/Time Data | | Entered Into [facility] | | Anesth PostOp | | Surgery Date [id number] 05/02/07 12:07 | | Anesthesiologist NOEL CASH 05/02/07 12:07 | | | + + documented in this encounter Visit Diagnoses Not on filedocumented in this encounter"
--- OUTSIDE RECORDS SUMMARY | ~2019-11-18 | XMS | Encounter Summary ---
Demographics + + + | Address | [address] | | | [place] [address] | + + + | Home Phone | | + + + | Preferred Language | Unknown | + + + | Marital Status | Single | + + + | Latter Day Affiliation | BAP | + + + [...] Team Providers + +------+ + | Care [place] Seamer Name | Role | Phone | + [...] Rd | | | | | | [place] [address] | | +--------+ + + + + [...] Roman Reynoso - 05/13/2007 1:34 PM PDT [id number] FROILAN JUAREZ [id number] Admission Date: 04/29/2007 Discharge Date: 05/02/2007 Staff [...] pseudoaneurysm. He was transferred to [facility] via [facility] for definitive care. During [...] appointment. I also e-mailed the Vascular Surgery button broacher with the patient's information to call the patient to schedule appointment as well. The patient should also follow up with his primary care doctor in 1 to 2 weeks and is to call to schedule appointment. Jacky Elizabeth M.D. PDF / HS [id number] / [id number] / [id number] / Reviewed or Edited By Roman Swartz M.D. on 05-10-2007 Electronically signed by Orlando Churchill 05-13-2007 01:33:23 PM documented in this encounter Plan of Treatment Not on filedocumented as of this encounter Visit Diagnoses Not on filedocumented in this encounter"
--- OUTSIDE RECORDS SUMMARY | ~2019-11-18 | XMS | Encounter Summary ---
Demographics + + + | Address | [address] | | | [place] [address] | + + + | Home Phone | | + + + | Preferred Language | Unknown | + + + | Marital Status | Single | + + + | Mosque Affiliation | [id number] | + + + [...] Team Providers + +------+ + | Care Optical Glass Wet Inspector Name | Role | Phone | [...] | | | | | | sm ([facility]) | MD Alissa [address] | | | | | | Cellulitis | [address] | | | | | | of right | [place], [place] | | | | | | foot | [phone] | | | | | | Thrombosis | Phone: | | | | | | of | [phone] | | | | | | femoral-femo | Fax: | | | | | | ral bypass | [phone] | | | | | | graft ([facility]) | | | | | | | [...] + + | 10/02/ | Hospital | [facility] | Jairo Renner MD | Pseudoaneurysm ([facility]) | | 2019 - | Encounter | [facility] | [address] | right aorto femoral | | | | [address] | [place] [address] | bypass (Primary | | 10/15/ | | [place], [place] | [phone] | Dx); Peripheral | | 2019 | | [id number] | | arterial disease | | | | [phone] | Latoya Oh DO | ([facility]); | | | | | [address] | Pseudoaneurysm | | | | | [place] [address] | ([facility]); Peripheral | | | | | [phone] | arterial disease | | | | | | ([facility]); Cellulitis of | | | | | Chyna Shook MD | right foot; | | | | | [address] | Thrombosis of | | | | | [place] [address] | femoral-femoral | | | | | [phone] | bypass graft (HCC); | | | | | | Post-operative pain | | | | | Tera Vázquez | | | | | | Jose Castañeda MD [address] | | | | | [address] | | | | | | [place] [address] | | | | | | [phone] | | | | | | | | | | | | Mundo Pack | | | | | | Poli Powell MD [address] | | | | [address] [place], [place] | | | | | | [address] | | | | | | | [...] GRAFT FEMORAL-POPLITEAL (Bilateral) ANGIOGRAM - EXTREMITY BILATERAL (82460) (Bilateral) Chief Complaint: No chief complaint on [...] who was admitted on 10/03/2019 Transfer from [facility] with bilateral hip and pelvic burning pain [...] Discharge Information: Follow up: Teresita Bob MD [address] [place] [id number] Follow up for Home health Wound Care ZULY GRIFFIN [address] [phone] Follow up Wound Care and Physical Therapy [...] you recover. Don t drive for at [id number] after your surgery or while you are [...] better overnight Chest pain or trouble breathing 365[employer]s ([email or web address].me) last reviewed this educational content on 11/29/201819996062-3093 The [employer]. [address] [place] [address]. All righ ts reserved. This information is [...] of developing AAA decreases. To learn more Smokefree.gov/mnsg-hc-po-expert National Cancer [place] Smoking Quitline:601-70L-TYCO (744-854-4686) [employer] ([employer]) last reviewed this educational content on 12/30/201819994485-3308 The [employer]. [address] [place] [address]. All righ ts reserved. This information is [...] find a support program: Free national quitline 789-WKSW-LNN (411-666-9073) [facility] quit-smoking programs [employer] [employer] 686-813-4986 [place] [employer] 177-633-2732 Support at home is important too. Family and friends can offer praise and reassurance. If t he smoker in your life finds it hard to quit, encourage them to keep trying. Try fadl-mde-sfowikj medicine Nicotine replacement therapymay make iteasier to [...] to quit smoking, try these resources: www.cdc.gov/tobacco/quit_smoking/ 040-GGSI-ACC (980-967-4666) www.smokefree.gov 713-13F-GWLX (673-492-7471) www.lung.org/stop-smoking/ 800-LUNGUSA (110-833-6744) Herve last reviewed this educational content on 01/29/201919993738-6801 [employer]. [address] [place] [address], [place] [address]. All righ ts reserved. This information is [...] Wheelchair escort to exit. VSS . Celeste Gzuman. HARRISON Gaviria 10/16/19 Michael Milian PA- C - 10/16/2019 7:20 AM PDT [facility] Service: Vascular Surgery Progress Note Hospital Day: LOS: 13 days Post-Op Day: 11/06 SUBJECTIVE Patient Summary: The patient is a 59 y.o. 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 He unde rwent aortobifemoral bypass in 1999. [...] scan which revealed enlargement of known right OBSTETRICAL ANESTHESIOLOGIST pseudoaneurysm. He was transferred to [facility] for evaluation and Vascular was consulted [...] 10/15/2019 10:30 AM PDT . Jairo Theodore [id number] Hospital Day: 12 SUBJECTIVE Events Overnight: Patient [...] been in touch with his Merrill, Lele [phone] and he did not want me to [...] and management as well as Computerized Physician Administration Professional. Dictation software, [employer], used which may contain error for similar sounding words even af ter review. Portions of this chart may have been copied from previous notes for continuity of care. 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 He unde rwent aortobifemoral bypass in 1999. [...] scan which revealed enlargement of known right OBSTETRICAL ANESTHESIOLOGIST pseudoaneurysm. He was transferred to [facility] for evaluation and Vascular was consulted [...] swelling. Call with any neurovascular changes. [facility] of this [...] - 10/14/2019 9:23 AM PDT Jairo Theodore [id number] Hospital Day: 11 SUBJECTIVE Events Overnight: Patient [...] been in touch with his Merrill, Lele [phone] and he did not want me to [...] and management as well as Computerized Physician Administration Professional. Dictation software, [employer], used which may contain error for similar sounding words even af ter review. Portions of this chart may have been copied from previous notes for continuity of care. Mundo Pack MD, FACP, FAAP 10/14/2019 il son, Chelsi HebertJUICE - 10/14/2019 8:44 AM PDT [facility] Service: Vascular Surgery Progress Note Hospital [...] history of alcohol abuse who presented to [facility] with com plaints of cellulitis of right leg as well as enlarging pseudoaneurysm of right OBSTETRICAL ANESTHESIOLOGIST. He unde rwent aortobifemoral bypass in 1999. [...] scan which revealed enlargement of known right OBSTETRICAL ANESTHESIOLOGIST pseudoaneurysm. He was transferred to [facility] for evaluation and Vascular was consulted [...] 1.7 Estimated Energy Needs Energy Calorie Requirements: 9569-0113(28-32 kcal/kg per 54.3 kg admit wt ) [...] PA- C - 10/13/2019 10:33 AM PDT [facility] Service: Vascular Surgery Progress Note Hospital [...] history of alcohol abuse who presented to [facility] with com plaints of cellulitis of right leg as well as enlarging pseudoaneurysm of right OBSTETRICAL ANESTHESIOLOGIST. He unde rwent aortobifemoral bypass in 1999. [...] scan which revealed enlargement of known right OBSTETRICAL ANESTHESIOLOGIST pseudoaneurysm. He was transferred to [facility] for evaluation and Vascular was consulted [...] different from t wyatt original. Jairo Theodore [id number] Hospital Day: 10 SUBJECTIVE Events Overnight: Patient [...] been in touch with his Merrill, Lele [phone] and he did not want me to [...] and management as well as Computerized Physician Administration Professional. Dictation software, [employer], used which may contain error for similar [...] different from the orig inal. Jairo Theodore [id number] Hospital Day: 9 SUBJECTIVE Events Overnight: Patient [...] been in touch with his Merrill, Lele [phone] and he did not want me to [...] and management as well as Computerized Physician Administration Professional. Dictation software, [employer], used which may contain error for similar sounding words even af ter review. Portions of this chart may have been copied from previous notes for continuity of care. Mundo Pack MD, FACP, FAAP 10/12/2019 il son, Chelsi Hebert, JUICE - 10/12/2019 9:17 AM PDT [facility] Service: Vascular Surgery Progress Note Hospital [...] history of alcohol abuse who presented to [facility] with com plaints of cellulitis of right leg as well as enlarging pseudoaneurysm of right OBSTETRICAL ANESTHESIOLOGIST. He unde rwent aortobifemoral bypass in 1999. [...] scan which revealed enlargement of known right OBSTETRICAL ANESTHESIOLOGIST pseudoaneurysm. He was transferred to [facility] for evaluation and Vascular was consulted [...] Color, UA YELLOW Clarity, Urine CLEAR Specific [place], Urine 1.008 1.002 - 1.030 Leukocyte esterase, [...] BANK. BLOOD BANK COMMENT Testing performed at [facility];[address] [place] [address] Type and Screen Collection Time: 10/12/19 7:52 AM Result Value Ref Range ABO Rh A POSITIVE Antibody Screen NEGATIVE BB BAND [id number] BB BAND Testing performed at [facility];[address] [place] [address] UNIT # [id number] Product Code LEUKODEPLETED PC Unit Division 00 Unit Status ALLOCATED Transfusion Status OK TO TRANSFUSE CROSSMATCH RESULT COMPATIBLE UNIT # [id number] Product Code LEUKODEPLETED PC Unit Division 00 [...] to chair with feet elevated. Please call [facility] any neurovascular changes. Appreciate hospitalitis assistance [...] different from the origina smooth Jairo Theodore [id number] Hospital Day: 8 SUBJECTIVE Events Overnight: Patient [...] right to left femoral [facility] mm PT[facility]. Continue [...] been in touch with his Merrill, Lele [phone] and he did not want me to [...] and management as well as Computerized Physician Administration Professional. Dictation software, [employer], used which may contain error for similar sounding words even af ter review. Portions of this chart may have been copied from previous notes for continuity of care. Mundo Pack MD, FACP, FAAP 10/11/2019 il son, Chelsi Hebert, JUICE - 10/11/2019 6:45 AM PDT [facility] Service: Vascular Surgery Progress Note Hospital [...] history of alcohol abuse who presented to [facility] with com plaints of cellulitis of right leg as well as enlarging pseudoaneurysm of right OBSTETRICAL ANESTHESIOLOGIST. He unde rwent aortobifemoral bypass in 1999. [...] scan which revealed enlargement of known right OBSTETRICAL ANESTHESIOLOGIST pseudoaneurysm. He was transferred to [facility] for evaluation and Vascular was consulted [...] Arteaga PA-C 10/11/2019 Rachel Trinidad, [facility] - 10/10/2019 11:59 AM PDTFormatting [...] PO medications. Thank You, Rachel Cifuentes, PharmD, [facility] 10/10/19 11:59 AM PDT rlene Lamar P A-C - 10/10/2019 11:36 AM PDT [facility] Service: Vascular Surgery Progress Note Hospital [...] history of alcohol abuse who presented to [facility] with com plaints of cellulitis of right leg as well as enlarging pseudoaneurysm of right OBSTETRICAL ANESTHESIOLOGIST. He unde rwent aortobifemoral bypass in 1999. [...] scan which revealed enlargement of known right OBSTETRICAL ANESTHESIOLOGIST pseudoaneurysm. He was transferred to [facility] for evaluation and Vascular was consulted [...] be different from the or iginal. [facility] Service: Data Review Specialist Progress Note Jairo Theodore 59 y.o. [...] He was farnsworth sferred on 10/03/2019 from [facility] for right foot swelling and increase in [...] procedures. Tyler Elias MD 10/10/2019 Dictation software, [employer], was used which may contain error with similar sound words even after review. Portions of this chart may have been copied from previous notes for continuity of care. Daniella Arias RN - 10/09/2019 10:20 AM PDTFamily/ multi care technician updated by pt. Chelsi Orta PA-C - 10/09/2019 7:08 AM PDT [facility] Service: Vascular Surgery Progress Note Hospital [...] history of alcohol abuse who presented to [facility] with com plaints of cellulitis of right leg as well as enlarging pseudoaneurysm of right OBSTETRICAL ANESTHESIOLOGIST. He unde rwent aortobifemoral bypass in 1999. [...] scan which revealed enlargement of known right OBSTETRICAL ANESTHESIOLOGIST pseudoaneurysm. He was transferred to [facility] for evaluation and Vascular was consulted [...] To be determined Code Status: Prior Chelsi rAteaga PA-C 10/09/2019 Associated attestation - Magdiel Arteaga MD - 10/09/2019 10:38 AM PDTI saw and evaluated th e patient, participated in the management, and agree with the findings in the above note. W e discussed the case and the treatment plan. Magdiel Arteaga MD Vascular Surgery Julian Gr MD - 10/09/2019 1:[address] [facility] Service: Data Review Specialist Progress Note Jairo Theodore 59 y.o. [...] He was farnsworth sferred on 10/03/2019 from [facility] for right foot swelling and increase in [...] procedures. Julian Gr MD 10/09/2019 Dictation software, [employer], was used which may contain error with [...] by vascular surgery. R eport given to PRESIDENT AND CHIEF COMMERCIAL OFFICER. Pt safely transferred to room 10249. Incisions and dressings were teresa an and dry. Post tib and pedal pulses dopplerable. JADA SHINE RN Chyna Rashid MD - 10/08/2019 4:[address] [facility] Service: Hospitalist Progress Note Hospital Day: LOS: 5 days SUBJECTIVE Patient Summary: Mr. Theodore is a 59 yr old man active smoker 1ppday with alcohol abuse, hx of PAD, s/p right aorto bifemoral bypass in 1999 complicated by pseudoaneurysm, s/p revision, was transferred from [facility] ED for right foot swelling and increasing [...] MD - 10/07/2019 3:[address] [facility] Service: Hospitalist Progress Note Hospital Day: LOS: 4 days SUBJECTIVE Patient Summary: Mr. Theodore is a 59 yr old man active smoker 1ppday with alcohol abuse, hx of PAD, s/p right aorto bifemoral bypass in 1999 complicated by pseudoaneurysm, s/p revision, was transferred from [facility] ED for right foot swelling and increasing [...] A POSITIVE Antibody Screen NEGATIVE BB BAND FINISHER SCREWDOWN 0630 BB BAND Testing performed at [facility];[address] [place] [address] UNIT # [id number] Product Code LEUKODEPLETED PC Unit Division 00 Unit Status ISSUED Transfusion Status OK TO TRANSFUSE CROSSMATCH RESULT COMPATIBLE UNIT # [id number] Product Code LEUKODEPLETED PC Unit Division 00 Unit Status ISSUED Transfusion Status OK TO TRANSFUSE CROSSMATCH RESULT COMPATIBLE UNIT # [id number] Product Code LEUKODEPLETED PC Unit Division 00 Unit Status ALLOCATED Transfusion Status OK TO TRANSFUSE CROSSMATCH RESULT COMPATIBLE UNIT # [id number] Product Code LEUKODEPLETED PC Unit Division 00 Unit Status ALLOCATED Transfusion Status OK TO TRANSFUSE CROSSMATCH RESULT COMPATIBLE Red Blood Cells (PRBC) - Crossmatch and Hold Result Value Ref Range Product Code [employer] Units ordered 2 BLOOD BANK COMMENT ORDER RECEIVED IN BLOOD BANK. BLOOD BANK COMMENT Testing performed at [facility];[address] [place] [address];[place] [address] POC ISTAT, CG8, Arterial Result Value Ref [...] BANK. BLOOD BANK COMMENT Testing performed at [facility];[address] [place] [address];[place] [address] POC ISTAT, CG8, Arterial Result Value Ref [...] Vertebral: 62/12 Antegrade Left: Vertebral: 75/12 Antegrade Aluren scale images: Right: No significant atherosclerotic plaque [...] Milian PA-C - 10/07/2019 7:08 AM PDT [facility] Service: Vascular Surgery Progress Note Hospital Day: LOS: 4 days Post-Op Day: * No surgery date entered * SUBJECTIVE Patient Summary: The patient is a 59 y.o. 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 He unde rwent aortobifemoral bypass in 1999. [...] scan which revealed enlargement of known right OBSTETRICAL ANESTHESIOLOGIST pseudoaneurysm. He was transferred to [facility] for evaluation and Vascular was consulted [...] A POSITIVE Antibody Screen NEGATIVE BB BAND FINISHER SCREWDOWN 0630 BB BAND Testing performed at [facility];[address] [place] [address];[place] [address] UNIT # [id number] Product Code LEUKODEPLETED PC Unit Division 00 Unit Status ALLOCATED Transfusion Status OK TO TRANSFUSE CROSSMATCH RESULT COMPATIBLE UNIT # [id number] Product Code LEUKODEPLETED PC Unit Division 00 Unit Status ALLOCATED Transfusion Status OK TO TRANSFUSE CROSSMATCH RESULT COMPATIBLE Red Blood Cells (PRBC) - Crossmatch and Hold Collection Time: 10/07/19 6:30 AM Result Value Ref Range Product Code RED CELL GROUP Units ordered 2 BLOOD BANK COMMENT ORDER RECEIVED IN BLOOD BANK. BLOOD BANK COMMENT Testing performed at [facility];[address] [place] [address];[place] [address] PROBLEM LIST Principal Problem: Pseudoaneurysm right aorto [...] this morning. Magdiel Arteaga MD Vascular Surgery Cyhna Shook MD - 10/06/2019 10:[address] [facility] Service: Hospitalist Progress Note Hospital Day: LOS: 3 days SUBJECTIVE Patient Summary: Mr. Theodore is a 59 yr old man active smoker 1ppday with alcohol abuse, hx of PAD, s/p right aorto bifemoral bypass in 1999 complicated by pseudoaneurysm, s/p revision, was transferred from [facility] ED for right foot swelling and increasing [...] Crum PA-C - 10/06/2019 9:32 AM PDT [facility] Service: Vascular Surgery Progress Note Hospital Day: LOS: 3 days Post-Op Day: * No surgery date entered * SUBJECTIVE Patient Summary: The patient is a 59 y.o. 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 He unde rwent aortobifemoral bypass in 1999. [...] scan which revealed enlargement of known right OBSTETRICAL ANESTHESIOLOGIST pseudoaneurysm. He was transferred to [facility] for evaluation and Vascular was consulted [...] MD - 10/05/2019 12:[address] [facility] Service: Hospitalist Progress Note Hospital Day: LOS: 2 days SUBJECTIVE Patient Summary: Mr. Theodore is a 59 yr old man active smoker 1ppday with alcohol abuse, hx of PAD, s/p right aorto bifemoral bypass in 1999 complicated by pseudoaneurysm, s/p revision, was transferred from [facility] ED for right foot swelling and increasing [...] Crum PA-C - 10/05/2019 8:18 AM PDT [facility] Service: Vascular Surgery Progress Note Hospital Day: LOS: 2 days Post-Op Day: * No surgery date entered * SUBJECTIVE Patient Summary: The patient is a 59 y.o. 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 He unde rwent aortobifemoral bypass in 1999. [...] scan which revealed enlargement of known right OBSTETRICAL ANESTHESIOLOGIST pseudoaneurysm. He was transferred to [facility] for evaluation and Vascular was consulted [...] and open repair for his enlarging right OBSTETRICAL ANESTHESIOLOGIST pseudoaneurysm. He will need r etroperitoneal exposure [...] MD - 10/04/2019 9:[address] [facility] Service: Hospitalist Progress Note Hospital Day: LOS: 1 day SUBJECTIVE Patient Summary: Mr. Theodore is a 59 yr old man active smoker 1ppday with alcohol abuse, hx of PAD, s/p right aorto bifemoral bypass in 1999 complicated by pseudoaneurysm, s/p revision, was transferred from [facility] ED for right foot swelling and increasing [...] LYTY 0809 BB BAND Testing performed at [facility];[address] [place] [address];[place] [address] ECG 12 lead Result Value Ref Range [...] check if blood cultures were taken at [facility] Prn pain medication Pseudoaneurysm right femoral artery [...] be different from t he original. [facility] Service: Hospitalist Admission History & Physical [...] resents as a transfer from [facility] ED for pseudoaneurysm of the right groin and celluli tis of the RLE. Per patient right pseudoaneurysm of the right groin has been getting bigger for at least a year. Right foot swelling for 5 days. Patient reports similar episodes at [facility] twice a year but this [...] LYTY 0809 BB BAND Testing performed at [facility];[address] [place] [address];[place] [address] ECG 12 lead Result Value Ref Range INTERPRETATION TEXT Not Confirmed IMAGING No orders to display EKG at 2310: NSR, VR 72, Qtc 455. Data from [facility] -Ultrasound impression: 6.3 x 5.1 x 5.8 [...] prophylaxis Code Status: Full Code Dictation software, [employer], used which may contain errors for similar [...] this note might be different from the [facility]: Data Review Specialist Initial Consult Note Jairo Theodore 59 [...] was transf erred 5 days ago from [facility] for right foot swelling and increase in [...] ENDARTERECTOMY FEMORAL; Surgeon: Magdiel Arteaga MD; Location: [facility] MAIN OR FEMORAL-FEMORAL BYPASS GRAFT N/A 10/07/2019 Procedure: BYPASS GRAFT FEMORAL-FEMORAL; Surgeon: Magdiel Arteaga MD; Location: [facility] MAIN OR OTHER SURGICAL HISTORY Right 10/07/2019 Procedure: REPAIR PSEUDOANEURYSM- FEMORAL; Surgeon: Magdiel Arteaga MD; Location: [facility] GABI N OR ALLERGIES Allergies Allergen Reactions [...] file Gets together: Not on file Attends bahai service: Not on file Active member of [...] Order(s): PROVIDER TO PROVIDER CONSUL T [facility] Service: Vascular Surgery Initial Consult Note Date of Admission: 10/03/2019 Date of Consultation: 10/04/2019 Reason for Consultation: Pseudoaneurysm of right OBSTETRICAL ANESTHESIOLOGIST Primary Care Physician: No Physician on file History Obtained From: Patient, chart review Code Status: Full Code CHIEF COMPLAINT: Right foot swelling and pain; Enlarging right femoral pseudoaneurysm HISTORY OF PRESENT ILLNESS The patient is a 59 y.o. male with significant past medical history of tobacco abuse, HTN, CAD, history of alcohol abuse who presented to [facility] with complaints of cellulitis o f right leg as well as enlarging pseudoaneurysm of right OBSTETRICAL ANESTHESIOLOGIST. He underwent aortobifemoral by pass in 1999. [...] which reveal ed enlargement of known right OBSTETRICAL ANESTHESIOLOGIST pseudoaneurysm. He was transferred to [facility] for evaluation and Vascular was consulted [...] sodium chloride 0.9% 100 mL/hr at 10/03/19 4645 PRN Medications acetaminophen, calcium carbonate, LORazepam, melatonin, [...] - The patient was transferr ed to [facility] for evaluation of his enlarging pseudoaneurysm, which has been the same size for the last year he reports. [facility] but was lost to any follow up. 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 His C TA with runoff yesterday showed enlarging right femoral pseudoaneurysm. Left OBSTETRICAL ANESTHESIOLOGIST shows no in flow but reconstitutes. The patient will require revascularization and open repair for his e nlarging right OBSTETRICAL ANESTHESIOLOGIST pseudoaneurysm. He will need retroperitoneal exposure with [...] Current Outpt/Agency/Support Groups: yes Community Agency Name: [facility] Home Health Disciplines: RN and PT - RN for wound care Equipment Durable Medical Equipment Provider: Home Equipment at Discharge: none Equipment Used at Home: cane, straight, single point Pharmacy Pharmacy/Medication needs: Pt is going to use Rx Pharmacy and will use his Medicare Part D benefits. BOOKKEEPING ASSISTANT and Pt called [facility], got him reestablished with the [facility], has not been seen since 2018 . Pt is now assigned to [facility]. BOOKKEEPING ASSISTANT p/c with Rudolph at [facility], states they will be calling Pt for follow up appt and will send referral for outpatient wound care. BOOKKEEPING ASSISTANT p/c with Carol at [facility], states she has received [place] orders in the p ast and will follow up with Dr. Bob's office. BOOKKEEPING ASSISTANT provided referral and faxed Home health [...] Bed Mobility Supine to Sit, Level of Pat[place]: modified independent Sit to Supine, Level of [place]: modified independent Safety Issues: decreased use of legs for bridging/pushing Transfers Sit-Stand, Level of [place]: supervised Stand-Sit, Level of [place]: supervised Qfe-[id number]-Ajb, Assistive Device: none Gait Level of [place]: supervised Assistive Device: none Distance (feet): 40 Goals Reflects last filed data and may be from multiple contributors. All Bed Mobility Goal Most Recent Value LTG Status new at 10/09/2019 1108 LTG [place] Level modified independent at 10/09/2019 1108 LTG Assistive Device none at 10/09/2019 1108 All Transfers Goal Most Recent Value LTG Status new at 10/09/2019 1108 LTG [place] Level modified independent at 10/09/2019 1108 LTG Assistive Device 2 wheeled walker (FWW) at 10/09/2019 1108 Gait Goal Most Recent Value LTG Status new at 10/09/2019 1108 LTG [place] Level modified independent at 10/09/2019 1108 LTG Assistive Device 2 wheeled walker (FWW) at 10/09/2019 1108 LTG Distance (feet) 100 at 10/09/2019 1108 Stair Goal Most Recent Value LTG Status new at 10/09/2019 1108 LTG [place] Level modified independent at 10/09/2019 1108 LTG [...] bed rails Supine to Sit, Level of [place]: modified independent Safety Issues: decreased use of legs for bridging/pushing Impairments: ROM decreased, strength decreased Transfers Sit-Stand, Level of [place]: stand by assist, verbal cues required Stand-Sit, Level of [place]: stand by assist, verbal cues required Gap-Uibsy-Uqw, Assistive Device: 2 wheeled walker (FWW), none Toilet, Level of [place]: stand by assist, verbal cues required Toilet, Assistive Device: 2 wheeled walker (FWW), grab bars Gait Gait Comments: antalgic gait with flexed trunk posture and intermittent crouch position Level of [place]: stand by assist, verbal cues required(verbal cues [...] LTG Status new at 10/09/2019 1108 LTG [place] Level modified independent at 10/09/2019 1108 LTG Assistive Device none at 10/09/2019 1108 All Transfers Goal Most Recent Value LTG Status new at 10/09/2019 1108 LTG [place] Level modified independent at 10/09/2019 1108 LTG Assistive Device 2 wheeled walker (FWW) at 10/09/2019 1108 Gait Goal Most Recent Value LTG Status new at 10/09/2019 1108 LTG [place] Level modified independent at 10/09/2019 1108 LTG Assistive Device 2 wheeled walker (FWW) at 10/09/2019 1108 LTG Distance (feet) 100 at 10/09/2019 1108 Stair Goal Most Recent Value LTG Status new at 10/09/2019 1108 LTG [place] Level modified independent at 10/09/2019 1108 LTG [...] Bed Mobility Supine to Sit, Level of [place]: minimal assist (75% patient effort) Transfers Sit-Stand, Level of [place]: minimal assist (75% patient effort) Gait Level of [place]: minimal assist (75% patient effort) Assistive Device: [...] LTG Status new at 10/09/2019 1108 LTG [place] Level modified independent at 10/09/2019 1108 LTG Assistive Device none at 10/09/2019 1108 All Transfers Goal Most Recent Value LTG Status new at 10/09/2019 1108 LTG [place] Level modified independent at 10/09/2019 1108 LTG Assistive Device 2 wheeled walker (FWW) at 10/09/2019 1108 Gait Goal Most Recent Value LTG Status new at 10/09/2019 1108 LTG [place] Level modified independent at 10/09/2019 1108 LTG Assistive Device 2 wheeled walker (FWW) at 10/09/2019 1108 LTG Distance (feet) 100 at 10/09/2019 1108 Stair Goal Most Recent Value LTG Status new at 10/09/2019 1108 LTG [place] Level modified independent at 10/09/2019 1108 LTG [...] complete. P DTPlan of Care - Avinash Crareon, PT - 10/11/2019 11:30 AM PDTFormatting of [...] participation. Pt with an i ncontinent BM. SKILLED NURSING PROFESSIONAL and PT assisting with mobility and pericare. [...] Transfers Additional Documentation: toilet Sit-Stand, Level of [place]: minimal assist (75% patient effort) Stand-Sit, Level of [place]: minimal assist (75% patient effort) Pcq-Cumwp-Tvn, Assistive Device: 2 wheeled walker (FWW) Toilet, Level of [place]: minimal assist (75% patient effort) Toilet, Assistive Device: 2 wheeled walker (FWW) Safety Issues: loses balance backward, weight-shifting ability decreased, step length decre ased, sequencing ability decreased, balance decreased during turns Impairments: ROM decreased, strength decreased, impaired balance Gait Gait Comments: reduced step length BLE, excessive trunk flexion, reduced weight bearing RLE , avoidance COG over HAN Level of [place]: minimal assist (75% patient effort) Assistive Device: 2 wheeled walker (FWW) Distance (feet): 15x2 Goals Reflects last filed data and may be from multiple contributors. All Bed Mobility Goal Most Recent Value LTG Status new at 10/09/2019 1108 LTG [place] Level modified independent at 10/09/2019 1108 LTG Assistive Device none at 10/09/2019 1108 All Transfers Goal Most Recent Value LTG Status new at 10/09/2019 1108 LTG [place] Level modified independent at 10/09/2019 1108 LTG Assistive Device 2 wheeled walker (FWW) at 10/09/2019 1108 Gait Goal Most Recent Value LTG Status new at 10/09/2019 1108 LTG [place] Level modified independent at 10/09/2019 1108 LTG Assistive Device 2 wheeled walker (FWW) at 10/09/2019 1108 LTG Distance (feet) 100 at 10/09/2019 1108 Stair Goal Most Recent Value LTG Status new at 10/09/2019 1108 LTG [place] Level modified independent at 10/09/2019 1108 LTG [...] Recommendations: 2 wheeled walker (FWW), shower chair, technology lab teacher, sock aide, long handled sponge, long handled [...] cheese snadwhiches since being a t the [facility] despite his chart saying he has [...] bed rails Supine to Sit, Level of Pat[place]: minimal assist (75% patient effort) Sit to Supine, Level of [place]: moderate assist (50% patient effort) Safety Issues: decreased use of legs for bridging/pushing, decreased use of arms for pushin g/pulling Impairments: ROM decreased, strength decreased, postural control impaired, pain Transfers Additional Documentation: sit to/from stand Sit-Stand, Level of [place]: minimal assist (75% patient effort) Stand-Sit, Level of [place]: maximal assist (25% patient effort) Zmc-Dscia-Xxz, Assistive Device: 2 wheeled walker (FWW), gait belt Safety Issues: loses balance backward, weight-shifting ability decreased, step length decre ased, sequencing ability decreased, balance decreased during turns Impairments: ROM decreased, strength decreased, impaired balance ROM Comments: WFL Strength Comments: WFL. B surgical coordinator strength 4/5. B UE MMT 4/5 except for biceps 3+/5 Balance Sitting Balance: Static: good balance Sitting Balance: Dynamic: good balance Standing Balance: Static: poor balance Standing Balance: Dynamic: poor balance Goals Reflects last filed data and may be from multiple contributors. LB Dressing Goal Most Recent Value LTG Status new at 10/10/2019 154 LTG [place] Level minimum assist (75% patient effort), set up required at 10/10/20191544 LTG Adaptive Equipment technology lab teacher, sock-aid at 10/10/20191544 Toilet Transfer Goal Most Recent Value LTG Status new at 10/10/2019 154 LTG [place] Level minimum assist (75% patient effort) at [...] at bedside in ICU on turnover by distribution collection operator. Patient stat es he feels better, [...] bed rails Supine to Sit, Level of [place]: minimal assist (75% patient effort) Transfers Bed-Chair, Level of [place]: minimal assist (75% patient effort) Niq-Lcdwv-Wdv, Assistive Device: 2 wheeled walker (FWW), gait belt Sit-Stand, Level of [place]: minimal assist (75% patient effort), stand by assist Stand-Sit, Level of [place]: minimal assist (75% patient effort), stand by assist Gait Gait Comments: reduced step length BLE, excessive trunk flexion, reduced weight bearing RLE , avoidance COG over HAN Level of [place]: minimal assist (75% patient effort), verbal cues [...] LTG Status new at 10/09/2019 1108 LTG [place] Level modified independent at 10/09/2019 1108 LTG Assistive Device none at 10/09/2019 1108 All Transfers Goal Most Recent Value LTG Status new at 10/09/2019 1108 LTG [place] Level modified independent at 10/09/2019 1108 LTG Assistive Device 2 wheeled walker (FWW) at 10/09/2019 1108 Gait Goal Most Recent Value LTG Status new at 10/09/2019 1108 LTG [place] Level modified independent at 10/09/2019 1108 LTG Assistive Device 2 wheeled walker (FWW) at 10/09/2019 1108 LTG Distance (feet) 100 at 10/09/2019 1108 Stair Goal Most Recent Value LTG Status new at 10/09/2019 1108 LTG [place] Level modified independent at 10/09/2019 1108 LTG [...] Family Contact Information: Name: Lele Conley (Roommate) Hcebcyeladjsdo signed by PORTILLO Varner at 10/10/2019 10:13 [...] HOB elevated Supine to Sit, Level of [place]: maximal assist (25% patient effort) Safety Issues: decreased use of legs for bridging/pushing, impaired trunk control for bed m obility Impairments: pain, strength decreased, ROM decreased Transfers Additional Documentation: sit to/from stand, bed to/from chair Bed-Chair, Level of [place]: moderate assist (50% patient effort) Heg-Rvdkq-Aba, Assistive Device: 2 wheeled walker (FWW) Sit-Stand, Level of [place]: minimal assist (75% patient effort) Stand-Sit, Level of [place]: minimal assist (75% patient effort) Hsa-Xhxpq-Plq, Assistive Device: 2 wheeled walker (FWW) Safety [...] LTG Status new at 10/09/2019 1108 LTG [place] Level modified independent at 10/09/2019 1108 LTG Assistive Device none at 10/09/2019 1108 All Transfers Goal Most Recent Value LTG Status new at 10/09/2019 1108 LTG [place] Level modified independent at 10/09/2019 1108 LTG Assistive Device 2 wheeled walker (FWW) at 10/09/2019 1108 Gait Goal Most Recent Value LTG Status new at 10/09/2019 1108 LTG [place] Level modified independent at 10/09/2019 1108 LTG Assistive Device 2 wheeled walker (FWW) at 10/09/2019 1108 LTG Distance (feet) 100 at 10/09/2019 1108 Stair Goal Most Recent Value LTG Status new at 10/09/2019 1108 LTG [place] Level modified independent at 10/09/2019 1108 LTG [...] 1.7 Estimated Energy Needs Energy Calorie Requirements: 8246-1740(28-32 kcal/kg per 54.3 kg admit wt ) [...] progressing Flowsheets (Taken 10/09/2019 1024) Participants: case management social worker dietitian/nutrition services advanced practice nurse nursing [...] liquid diet. lan of [facility] Viv Santos MSW - 10/09/2019 9:44 AM PDTAttended morning rounds. Pt transferred to ICU post -op for repair of thrombosed fem-fem artery bypass. Progressing. Await PT to julissa and alissa tinajero. Has no PCP per CM note and FS. [facility] Urszula Garcia RN - 10/09/2019 8:02 AM [...] Theodore 59 y.o. 1960 Med. Record Number: [id number] Date of admission: 10/03/2019 Date of Operation/Procedure: [...] disease (HCC) [I73.9] Surgeon: Magdiel Arteaga MD Metal Milling Machine Operator: Maicol Abel PA-C Anesthesia Provider(s): Anesthesiologist: Orlando Ambriz DO CASINO FLOOR SUPERVISOR: Som Garcia CRNA Anesthesia Type: Anesthesia type not filed in the log. Procedure(s): THROMBECTOMY / EMBOLECTOMY of fem fem bypass BILATERAL BYPASS GRAFT FEMORAL-POPLITEAL WITH 6 MM PTFE ANGIOGRAM - EXTREMITY BILATERAL (42246) Operative Findings: Thrombosed femoral to femoral artery [...] Implant Name Type Inv. Item Serial No. Sewage Screen Operator Lot No. LRB No. Used Action GRAFT VAS PROPATEN 6-80MM - [id number] Graft GRAFT VAS PROPATEN 6-80MM [id number] [facility] NA N/A 1 Implanted GRAFT VAS PROPATEN 6-80MM - [id number] Graft GRAFT VAS PROPATEN 6-80MM [id number] [facility] NA N/A 1 Implanted Counts: Instrument, sponge, and needle counts were correct prior to closure and at the con clusion of the case. Complications: None Disposition: The patient was taken to PACU Immediate Post-Operative Condition: Stable Electronically signed by: Magdiel Arteaga MD, 10/08/2019, 2:31 PM PDT p Note - Magdiel Arteaga MD - 10/08/2019 10 :06 AM PDT [facility] OPERATIVE REPORT PATIENT NAME: [...] the femorofemoral bypass. Using 2 CV 6 [place]-Jamie sutures the 6 mm bypass was anastomos [...] astomosis was created with 2 CV 6 [place]-Jamie sutures. Prior to completing the anastomosis the [...] an antibiotic solution. Hemostasis was achieved. 7 Lithuanian drains were placed in both groins and [...] Magdiel Arteaga MD Vascular Surgery Dictation software, [employer], used which may contain error for similar [...] Arteaga MD - 10/07/2019 7:00 PM PDT [facility] OPERATIVE REPORT PATIENT NAME: Jairo [...] vanced a wire and placed a 7 Lithuanian sheath. We again attempted to select out [...] endarterectomy was performed w ith a [place] elevator. There was good backbleeding from the [...] femoral endarterectomy was performed using the [place] elevator. After performing the endarterect carlyle there [...] copiously irrigated. There was good hemostasis. 7 Lithuanian flat AUGUSTUS drains were placed in both [...] Magdiel Arteaga MD Vascular Surgery Dictation software, [employer], used which may contain error for similar [...] Theodore 59 y.o. 1960 Med. Record Number: [id number] Date of admission: 10/03/2019 Date of Operation/Procedure: 10/07/2019 Preoperative Diagnosis: 1. Large right groin pseudoaneurysm 2. Peripheral arterial disease Postoperative Diagnosis: * Pseudoaneurysm (HCC) [I72.9] Surgeon: Magdiel Arteaga MD Metal Milling Machine Operator: Maicol Abel PA-C Anesthesia Provider(s): Anesthesiologist: Rudolph Lowery MD CASINO FLOOR SUPERVISOR: Neville Rush CRNA Anesthesia Type: General Procedure(s): [...] Implant Name Type Inv. Item Serial No. Sewage Screen Operator Lot No. LRB No. Used Action GRAFT GORE PROPATEN [id number] - [id number] Graft GRAFT GORE PROPATEN [id number] 5 WL GORE - WLGO NA Right 1 Implanted GRAFT HEMGRD KNIT [id number] - [id number] Graft GRAFT HEMGRD KNIT [id number] [employer] - MAQU [id number] Right 1 [...] VSS with one SBP in 170s recheck ILP230i. Report given to preop nurse and 0600IVPB [...] and Optimize Oral Intake Flowsheets (Taken 10/05/2019 9435) Oral Nutrition Promotion: calorie dense foods provided Note: Pt tolerating oral liquids well. NPO at midnight. lan of [facility] Oriana Mar RN - 10/04/2019 8:07 PM [...] audit complete. lan of [facility] Zuleyka Ramos RN - 10/04/2019 6:55 PM [...] of clutter. lan of [facility] Carol Olivares MSW - 10/04/2019 12:52 PM [...] Notes: Pt resides with his friend in [place]. Pt is independent - no caregiver, home [...] of RLE and enlarging pseudoaneurysm of right OBSTETRICAL ANESTHESIOLOGIST. Pt scheduled for pseudoaneurysm repair on 10/04. [...] BUN 7* CREA 0.60* Estimated Energy Needs 4262-1549 kcal/day (28-32 kcal/kg per 54.3 kg admit [...] [place] | | | | | | [id number] | | | | | | | | +--------+ + + + + | 02/06/ | Office | Vascular Surgery | Ricci De León DNP | | 2019 | Visit | | [address] | | | | | | [place] | | | | | | [id number] | | | | | | | | | | | | Magdiel Arteaga MD | | | | | | [address] | | | | | | [place] | | | | | | [place] [address] | | | | | | [phone] | | | | | | | [...] Expected: | | | | e | ([facility]) right aorto | 10/23/2019, Expires: | | | | | femoral bypass | 10/15/2020 | + +---------+--------+ + + | CBC w/ Auto | Lab | Routin | Pseudoaneurysm | Expected: | | Differential | | e | ([facility]) right aorto | 10/23/2019, Expires: | | [...] | Health | Referral | e | ([facility]) right aorto | | | | | | femoral bypass | | | | | | Cellulitis of right | | | | | | foot 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 ([facility]) | | | | | | Post-operative [...] EXTREMITY BILATERAL | | 9:22 AM | ([facility]) Peripheral | | | (66712) | | PDT | arterial disease | | | | | | ([facility]) | | + +--------+ + + + | BYPASS GRAFT | | 10/08/2019 | Pseudoaneurysm | | | FEMORAL-POPLITEAL | | 9:22 AM | ([facility]) Peripheral | | | | | PDT | arterial disease | | | | | | ([facility]) | | + +--------+ + + + | THROMBECTOMY / | | 10/08/2019 | Pseudoaneurysm | | | EMBOLECTOMY | | 9:22 AM | ([facility]) Peripheral | | | | | PDT | arterial disease | | | | | | ([facility]) | | + +--------+ + + + [...] LABORATORY | | | | performed at [facility], [address] | | [address], | | | | | | [place] [address] | | | | + + + + + + + + | Specimen | + + | Blood | + + + + + + + | Performing | Address | City/State/Zipcode | Phone Number | | Organization | | | | + + + + + | [facility] | [address] | [place] [address] | [phone] | + + + + + Magnesium (10/16/2019 5:11 AM PDT) + + + + + + | Component | Value | Ref Range | Performed | Pathologist | | | | | At | Signature | + + + + + + | Magnesium | 1.7Comment: Testing | 1.7 - 2.4 mg/dL | [facility] | | | | performed at [facility];[address] | | LABORATORY | | | | [address];[place], [place] | | | | | | [address] | | | | + + + + + + + + | Specimen | + + | Blood | + + + + + + + | Performing | Address | City/State/Zipcode | Phone Number | | Organization | | | | + + + + + | [facility] | [address] | [place] [address] | [phone] | + + + + + Potassium (10/16/2019 5:11 AM PDT) + + + + + + | Component | Value | Ref Range | Performed | Pathologist | | | | | At | Signature | + + + + + + | K | 3.0 (L)Comment: Testing | 3.5 - 4.9 | [facility] | | | | performed at [facility];[address] | mmol/L | LABORATORY | | | [address];[place] | | | | | | [address] | | | | + + + + + + + + | Specimen | + + | Blood | + + + + + + + | Performing | Address | City/State/Zipcode | Phone Number | | Organization | | | | + + + + + | [facility] | [address] | [place] [address] | [phone] | + + + + + CBC [...] LABORATORY | | | | performed at [facility], [address] | | [address], | | | | | | [place] [address] | | | | + + + + + + + + | Specimen | + + | Blood | + + + + + + + | Performing | Address | City/State/Zipcode | Phone Number | | Organization | | | | + + + + + | [facility] | [address] | [place] [address] | [phone] | + + + + + Magnesium (10/15/2019 5:13 AM PDT) + + + + + + | Component | Value | Ref Range | Performed | Pathologist | | | | | At | Signature | + + + + + + | Magnesium | 1.9Comment: Testing | 1.7 - 2.4 mg/dL | J[facility] | | | | performed at [facility];[address] | | LABORATORY | | | | [address];[place] | | | | | | [address] | | | | + + + + + + + + | Specimen | + + | Blood | + + + + + + + | Performing | Address | City/State/Zipcode | Phone Number | | Organization | | | | + + + + + | [facility] | [address] | [place] [address] | [phone] | + + + + + Basic [...] | | | | | performed at [facility], [address] | | | | | | [facility], | | | | | | [place] [address] | | | | + + + + + + + + | Specimen | + + | Blood | + + + + + + + | Performing | Address | City/State/Zipcode | Phone Number | | Organization | | | | + + + + + | [facility] | [address] | [place] [address] | [phone] | + + + + + Potassium (10/14/2019 3:28 PM PDT) + + + + + + | Component | Value | Ref Range | Performed | Pathologist | | | | | At | Signature | + + + + + + | K | 3.3 (L)Comment: Testing | 3.5 - 4.9 | [facility] | | | | performed at [facility];[address] | mmol/L | LABORATORY | | | | [address];[place], [place] | | | | | | [address] | | | | + + + + + + + + | Specimen | + + | Blood | + + + + + + + | Performing | Address | City/State/Zipcode | Phone Number | | Organization | | | | + + + + + | [facility] | [address] | [place] [address] | [phone] | + + + + + Magnesium (10/14/2019 3:28 PM PDT) + + + + + + | Component | Value | Ref Range | Performed | Pathologist | | | | | At | Signature | + + + + + + | Magnesium | 2.1Comment: Testing | 1.7 - 2.4 mg/dL | [place] | | | | performed at [facility];[address] | | LABORATORY | | | | [address];[place], [place] | | | | | | [address] | | | | + + + + + + + + | Specimen | + + | Blood | + + + + + + + | Performing | Address | City/State/Zipcode | Phone Number | | Organization | | | | + + + + + | [facility] | [address] | [place] [address] | [phone] | + + + + + Phosphorus (10/14/2019 3:28 PM PDT) + + + + + + | Component | Value | Ref Range | Performed | Pathologist | | | | | At | Signature | + + + + + + | Phosphorus | 1.3 (L)Comment: Testing | 2.3 - 4.8 mg/dL | [facility] | | | | performed at [facility];[address] | | LABORATORY | | | | [address];[place] | | | | | | [address] | | | | + + + + + + + + | Specimen | + + | Blood | + + + + + + + | Performing | Address | City/State/Zipcode | Phone Number | | Organization | | | | + + + + + | [facility] | [address] | [place] [address] | [phone] | + + + + + CBC [...] LABORATORY | | | | performed at [facility], [address] | | | | | [address], | | | | | | [place] [address] | | | | + + + + + + + + | Specimen | + + | Blood | + + + + + + + | Performing | Address | City/State/Zipcode | Phone Number | | Organization | | | | + + + + + | [facility] | [address] | [place] [address] | [phone] | + + + + + Magnesium (10/14/2019 5:49 AM PDT) + + + + + + | Component | Value | Ref Range | Performed | Pathologist | | | | | At | Signature | + + + + + + | Magnesium | 1.6 (L)Comment: Testing | 1.7 - 2.4 mg/dL | [place] | | | | performed at [facility] [facility];[address] | | LABORATORY | | | | [address];[place], [place] | | | | | | [address] | | | | + + + + + + + + | Specimen | + + | Blood | + + + + + + + | Performing | Address | City/State/Zipcode | Phone Number | | Organization | | | | + + + + + | [facility] | [address] | [place] [address] | [phone] | + + + + + Basic [...] 7.6 (L) | 8.5 - 10.5 | [facility] | | | | | mg/dL | LABORATORY | | + + + + + + | Estimated | >60Comment: GFR <60: | >60 | [facility] | | | GFR | CHRONIC [...] | | | | | | MDRD IDGA traceable | | | | | | equation.Testing | | | | | | performed at [facility], [address] | | | | | | [facility], | | | | | | [place] [address] | | | | + + + + + + + + | Specimen | + + | Blood | + + + + + + + | Performing | Address | City/State/Zipcode | Phone Number | | Organization | | | | + + + + + | [facility] | [address] | [place] [address] | [phone] | + + + + + Potassium (10/13/2019 11:07 AM PDT) + + + + + + | Component | Value | Ref Range | Performed | Pathologist | | | | | At | Signature | + + + + + + | K | 3.5Comment: Testing | 3.5 - 4.9 | [facility] | | | | performed at [facility];[address] | mmol/L | LABORATORY | | | | [address];[place], [place] | | | | | | [address] | | | | + + + + + + + + | Specimen | + + | Blood | + + + + + + + | Performing | Address | City/State/Zipcode | Phone Number | | Organization | | | | + + + + + | [facility] | [address] | [place] [address] | [phone] | + + + + + Potassium (10/13/2019 4:37 AM PDT) + + + + + + | Component | Value | Ref Range | Performed | Pathologist | | | | | At | Signature | + + + + + + | K | 3.5Comment: Testing | 3.5 - 4.9 | [facility] | | | | performed at [facility];[address] | mmol/L | LABORATORY | | | | [address];[place] | | | | | | [address] | | | | + + + + + + + + | Specimen | + + | Blood | + + + + + + + | Performing | Address | City/State/Zipcode | Phone Number | | Organization | | | | + + + + + | [facility] | [address] | [place] [address] | [phone] | + + + + + Magnesium (10/13/2019 4:37 AM PDT) + + + + + + | Component | Value | Ref Range | Performed | Pathologist | | | | | At | Signature | + + + + + + | Magnesium | 1.7Comment: Testing | 1.7 - 2.4 mg/dL | [facility] | | | | performed at [facility];[address] | | LABORATORY | | | | [facility];[place], [place] | | | | | | [address] | | | | + + + + + + + + | Specimen | + + | Blood | + + + + + + + | Performing | Address | City/State/Zipcode | Phone Number | | Organization | | | | + + + + + | [facility] | [address] | [place] [address] | [phone] | + + + + + Basic [...] | >60Comment: GFR <60: | >60 | [facility] | | | GFR | CHRONIC [...] | | | | | | MDRD IDGA traceable | | | | | | equation.Testing | | | | | | performed at [facility] | | | | | | [facility];[place], [place] | | | | | | [address] | | | | + + + + + + + + | Specimen | + + | Blood | + + + + + + + | Performing | Address | City/State/Zipcode | Phone Number | | Organization | | | | + + + + + | [facility] | [address] | [place] [address] | [phone] | + + + + + Hemoglobin [...] Testing | 39.0 - 50.0 % | [facility] | | | | performed at [facility];[address] | | LABORATORY | | | | [address];[place], [place] | | | | | | [address] | | | | + + + + + + + + | Specimen | + + | Blood | + + + + + + + | Performing | Address | City/State/Zipcode | Phone Number | | Organization | | | | + + + + + | [facility] | [address] | [place] [address] | [phone] | + + + + + Potassium (10/12/2019 4:28 PM PDT) + + + + + + | Component | Value | Ref Range | Performed | Pathologist | | | | | At | Signature | + + + + + + | K | 3.3 (L)Comment: Testing | 3.5 - 4.9 | [facility] | | | | performed at [facility];[address] | mmol/L | LABORATORY | | | | [address];[place] | | | | | | [address] | | | | + + + + + + + + | Specimen | + + | Blood | + + + + + + + | Performing | Address | City/State/Zipcode | Phone Number | | Organization | | | | + + + + + | [facility] | [address] | [place] [address] | [phone] | + + + + + Clostridium [...] C. | Negative for toxigenic | | [facility] | | | difficile, | C.difficile.Comment: | | LABORATORY | | | Interp | Testing performed at | | | | | | [facility];[address];[place] [address] | | | | + + + + + + + + | Specimen | + + | Stool - Stool | | specimen (specimen) | + + + + + + + | Performing | Address | City/State/Zipcode | Phone Number | | Organization | | | | + + + + + | [facility] | [address] | [place] [address] | [phone] | + + + + + Potassium (10/12/2019 11:02 AM PDT) + + + + + + | Component | Value | Ref Range | Performed | Pathologist | | | | | At | Signature | + + + + + + | K | 3.3 (L)Comment: Testing | 3.5 - 4.9 | [facility] | | | | performed at [facility];[address] | mmol/L | LABORATORY | | | | [address];[place] | | | | | | [address] | | | | + + + + + + + + | Specimen | + + | Blood | + + + + + + + | Performing | Address | City/State/Zipcode | Phone Number | | Organization | | | | + + + + + | [facility] | [address] | [place] [address] | [phone] | + + + + + Type [...] + + + | BB BAND | [id number] | | [facility] | | | | | | LABORATORY | | + + + + + + | UNIT # | [id number] | | [facility] | | | | [...] | | | RESULT | performed at [facility] | | LABORATORY | | | | [address];[place], [place] | | | | | | [address] | | | | + + + + + + | UNIT # | [id number] | | [facility] | | | | [...] | + + + + + | [facility] | [address] | [place] [address] | [phone] | + + + + + Red [...] | [facility] | | | COMMENT | [facility];[address] | | LABORATORY | | | | [address];[place] [address] | | | | + + + + + + + + | Specimen | + + | | + + + + + + + | Performing | Address | City/State/Zipcode | Phone Number | | Organization | | | | + + + + + | [facility] | [address] | [place] [address] | [phone] | + + + + + Magnesium (10/12/2019 4:08 AM PDT) + + + + + + | Component | Value | Ref Range | Performed | Pathologist | | | | | At | Signature | + + + + + + | Magnesium | 1.9Comment: Testing | 1.7 - 2.4 mg/dL | [facility] | | | | performed at [facility];[address] | | LABORATORY | | | | [address];[place] | | | | | | [address] | | | | + + + + + + + + | Specimen | + + | Blood | + + + + + + + | Performing | Address | City/State/Zipcode | Phone Number | | Organization | | | | + + + + + | [facility] | [address] | [place] [address] | [phone] | + + + + + Comprehensive [...] | | | | | performed at [facility];[address] | | | | | | [facility];[place], [place] | | | | | | [address] | | | | + + + + + + + + | Specimen | + + | Blood | + + + + + + + | Performing | Address | City/State/Zipcode | Phone Number | | Organization | | | | + + + + + | [facility] | [address] | [place] [address] | [phone] | + + + + + CBC [...] | [facility] | | | | NURSING [id number] AJ | | LABORATORY | | | [...] LABORATORY | | | | performed at [facility];[address] | | | | | | [address];[place], [place] | | | | | | [address] | | | | + + + + + + + + | Specimen | + + | Blood | + + + + + + + | Performing | Address | City/State/Zipcode | Phone Number | | Organization | | | | + + + + + | [facility] | [address] | [place] [address] | [phone] | + + + + + Urinalysis [...] - 1.030 | [facility] | | | [place], | | | LABORATORY | | | [...] [place] | | | | | | [address] | | | | + + + [...] | + + + + + | [facility] | [address] | [place] [address] | [phone] | + + + + + Osmolality, Urine (10/11/2019 11:16 AM PDT) + + + + + + | Component | Value | Ref Range | Performed | Pathologist | | | | | At | Signature | + + + + + + | OSMO URINE | 239Comment: Testing | 50 - 1,200 | [facility] | | | | performed at [facility], [address] | mOsm/kg | LABORATORY | | | | [address], | | | | | | [place] [address] | | | | + + + [...] | + + + + + | [facility] | [address] | [place] [address] | [phone] | + + + + + Culture, [...] Special | Testing performed at | | [facility] | | | Requests | [facility];[address] | | LABORATORY | | | | [address];[place] [address] | | | | + + + + + + | RESULT | NO GROWTH 6 DAYS | | [facility] | | | | | | LABORATORY | | + + + + + + | RESULT | Testing performed at | | [facility] | | | | [facility], [address] | | LABORATORY | | | | [place] | | | | | | [address]Aeqzgej: Testing | | | | | | performed at [facility], [address] | | | | | | [place] | | | | | | [address] | | | | + + + + + + + + | Specimen | + + | Blood - Swab of line | | insertion site | | (specimen) | + + + + + + + | Performing | Address | City/State/Zipcode | Phone Number | | Organization | | | | + + + + + | [facility] | [address] | [place] [address] | [phone] | + + + + + XR [...] Procedure Note | + + | Espinoza, [id number] - 10/11/2019 10:42 AM PDT | | [...] Special | Testing performed at | | [facility] | | | Requests | [facility];[address] | | LABORATORY | | | | [address];[place] [address] | | | | + + + + + + | RESULT | NO GROWTH 6 DAYS | | [facility] | | | | | | LABORATORY | | + + + + + + | RESULT | Testing performed at | | [facility] | | | | [facility], [address] [facility] | | LABORATORY | | | | [address], [place] | | | | | | [address]Cqsqths: Testing | | | | | | performed at [facility], [address] | | | | | | [address], [place] | | | | | | [address] | | | | + + + + + + + + | Specimen | + + | Blood - Peripheral | | blood specimen | | (specimen) | + + + + + + + | Performing | Address | City/State/Zipcode | Phone Number | | Organization | | | | + + + + + | [facility] | [address] | [place] [address] | [phone] | + + + + + Sodium (10/11/2019 9:30 AM PDT) + + + + + + | Component | Value | Ref Range | Performed | Pathologist | | | | | At | Signature | + + + + + + | Na | 127 (L)Comment: Testing | 135 - 145 | [facility] | | | | performed at [facility];[address] | mmol/L | LABORATORY | | | | [address];[place] | | | | | | [address] | | | | + + + + + + + + | Specimen | + + | Blood | + + + + + + + | Performing | Address | City/State/Zipcode | Phone Number | | Organization | | | | + + + + + | [facility] | [address] | [place] [address] | [phone] | + + + + + Osmolality, Serum (10/11/2019 9:30 AM PDT) + + + + + + | Component | Value | Ref Range | Performed | Pathologist | | | | | At | Signature | + + + + + + | Osmolality, | 262 (L)Comment: Testing | 280 - 301 | [facility] | | | Serum | performed at [facility], [address] | mOsm/kg | LABORATORY | | | | [address], | | | | | | [place] [address] | | | | + + + + + + + + | Specimen | + + | Blood | + + + + + + + | Performing | Address | City/State/Zipcode | Phone Number | | Organization | | | | + + + + + | [facility] | [address] | [place] [address] | [phone] | + + + + + Comprehensive [...] 34 | 10 - 65 U/L | [facility] | | | | | [...] | | | | | | MDRD [facility] traceable | | | | | | equation.Testing | | | | | | performed at [facility];[address] | | | | | | [facility];[place], [place] | | | | | | [address] | | | | + + + + + + + + | Specimen | + + | Blood | + + + + + + + | Performing | Address | City/State/Zipcode | Phone Number | | Organization | | | | + + + + + | [facility] | [address] | [place] [address] | [phone] | + + + + + CBC [...] LABORATORY | | | | performed at [facility];[address] | | | | | | [address];[place] | | | | | | [address] | | | | + + + + + + + + | Specimen | + + | Blood | + + + + + + + | Performing | Address | City/State/Zipcode | Phone Number | | Organization | | | | + + + + + | [facility] | [address] | [place] [address] | [phone] | + + + + + Comprehensive [...] | | | | | performed at [facility];[address] | | | | | | [facility];[place], [place] | | | | | | [address] | | | | + + + + + + + + | Specimen | + + | Blood | + + + + + + + | Performing | Address | City/State/Zipcode | Phone Number | | Organization | | | | + + + + + | [facility] | [address] | [place] [address] | [phone] | + + + + + Magnesium (10/10/2019 4:16 AM PDT) + + + + + + | Component | Value | Ref Range | Performed | Pathologist | | | | | At | Signature | + + + + + + | Magnesium | 1.8Comment: Testing | 1.7 - 2.4 mg/dL | [facility] | | | | performed at [facility];[address] | | LABORATORY | | | | [address];[place], [place] | | | | | | [address] | | | | + + + + + + + + | Specimen | + + | Blood | + + + + + + + | Performing | Address | City/State/Zipcode | Phone Number | | Organization | | | | + + + + + | [facility] | [address] | [place] [address] | [phone] | + + + + + CBC [...] | | | Absolute | performed at [facility];[address] | K/uL | LABORATORY | | | | [address];[place], [place] | | | | | | [address] | | | | + + + + + + + + | Specimen | + + | Blood | + + + + + + + | Performing | Address | City/State/Zipcode | Phone Number | | Organization | | | | + + + + + | [facility] | [address] | [place] [address] | [phone] | + + + + + Lactic Acid (10/09/2019 5:12 AM PDT) + + + + + + | Component | Value | Ref Range | Performed | Pathologist | | | | | At | Signature | + + + + + + | Lactate, | 1.8Comment: Testing | 0.4 - 2.0 | [facility] | | | Serum | performed at [facility];[address] | mmol/L | LABORATORY | | | | [address];[place] | | | | | | [address] | | | | + + + + + + + + | Specimen | + + | Blood | + + + + + + + | Performing | Address | City/State/Zipcode | Phone Number | | Organization | | | | + + + + + | [facility] | [address] | [place] [address] | [phone] | + + + + + Comprehensive [...] | | | | | performed at [facility] | | | | | | [facility];[place], [place] | | | | | | [address] | | | | + + + + + + + + | Specimen | + + | Blood | + + + + + + + | Performing | Address | City/State/Zipcode | Phone Number | | Organization | | | | + + + + + | [facility] | [address] | [place] [address] | [phone] | + + + + + Procalcitonin [...] | | | | | | at [facility];[address] | | | | | | [address];[place] [address] | | | | + + + + + + + + | Specimen | + + | Blood | + + + + + + + | Performing | Address | City/State/Zipcode | Phone Number | | Organization | | | | + + + + + | [facility] | [address] | [place] [address] | [phone] | + + + + + Phosphorus (10/09/2019 5:10 AM PDT) + + + + + + | Component | Value | Ref Range | Performed | Pathologist | | | | | At | Signature | + + + + + + | Phosphorus | 4.0Comment: Testing | 2.3 - 4.8 mg/dL | [facility] | | | | performed at [facility];[address] | | LABORATORY | | | | [facility];[place], [place] | | | | | | [address] | | | | + + + + + + + + | Specimen | + + | Blood | + + + + + + + | Performing | Address | City/State/Zipcode | Phone Number | | Organization | | | | + + + + + | [facility] | [address] | [place] [address] | [phone] | + + + + + Magnesium (10/09/2019 5:10 AM PDT) + + + + + + | Component | Value | Ref Range | Performed | Pathologist | | | | | At | Signature | + + + + + + | Magnesium | 1.7Comment: Testing | 1.7 - 2.4 mg/dL | [facility] | | | | performed at [facility];[address] | | LABORATORY | | | | [address];[place], [place] | | | | | | [address] | | | | + + + + + + + + | Specimen | + + | Blood | + + + + + + + | Performing | Address | City/State/Zipcode | Phone Number | | Organization | | | | + + + + + | [facility] | [address] | [place] [address] | [phone] | + + + + + CBC [...] | | | | | performed at [facility] | | | | | | [address];[place], [place] | | | | | | [address] | | | | + + + + + + + + | Specimen | + + | Blood | + + + + + + + | Performing | Address | City/State/Zipcode | Phone Number | | Organization | | | | + + + + + | [facility] | [address] | [place] [address] | [phone] | + + + + + POC [...] | | | POC | performed at [facility];[address] | | LABORATORY | | | | [address];[place] | | | | | | [address] | | | | + + + + + + + + | Specimen | + + | | + + + + + + + | Performing | Address | City/State/Zipcode | Phone Number | | Organization | | | | + + + + + | [facility] | [address] | [place] [address] | [phone] | + + + + + Phosphorus (10/08/2019 5:23 PM PDT) + + + + + + | Component | Value | Ref Range | Performed | Pathologist | | | | | At | Signature | + + + + + + | Phosphorus | 3.4Comment: Testing | 2.3 - 4.8 mg/dL | [facility] | | | | performed at [facility];[address] | | LABORATORY | | | | [address];[place], [place] | | | | | | [address] | | | | + + + + + + + + | Specimen | + + | Blood | + + + + + + + | Performing | Address | City/State/Zipcode | Phone Number | | Organization | | | | + + + + + | [facility] | [address] | [place] [address] | [phone] | + + + + + Magnesium (10/08/2019 5:23 PM PDT) + + + + + + | Component | Value | Ref Range | Performed | Pathologist | | | | | At | Signature | + + + + + + | Magnesium | 1.8Comment: Testing | 1.7 - 2.4 mg/dL | [facility] | | | | performed at [facility] | | LABORATORY | | | | [facility];[place], [place] | | | | | | [address] | | | | + + + + + + + + | Specimen | + + | Blood | + + + + + + + | Performing | Address | City/State/Zipcode | Phone Number | | Organization | | | | + + + + + | [facility] | [address] | [place] [address] | [phone] | + + + + + CBC [...] at | | | | | | [facility];[address] [place] [address] | | | | | | [address];[place] [address] | | | | + + + + + + + + | Specimen | + + | Blood | + + + + + + + | Performing | Address | City/State/Zipcode | Phone Number | | Organization | | | | + + + + + | [facility] | [address] | [place] [address] | [phone] | + + + + + Basic [...] | | | | | performed at [facility] | | | | | | [facility];[place], [place] | | | | | | [address] | | | | + + + + + + + + | Specimen | + + | Blood | + + + + + + + | Performing | Address | City/State/Zipcode | Phone Number | | Organization | | | | + + + + + | [facility] | [address] | [place] [address] | [phone] | + + + + + PTT (10/08/2019 5:23 PM PDT) + + + + + + | Component | Value | Ref Range | Performed | Pathologist | | | | | At | Signature | + + + + + + | PTT | 32Comment: Testing | 23 - 32 seconds | [facility] | | | | performed at [facility];[address] | | LABORATORY | | | | [address];[place] | | | | | | [address] | | | | + + + + + + + + | Specimen | + + | Blood | + + + + + + + | Performing | Address | City/State/Zipcode | Phone Number | | Organization | | | | + + + + + | [facility] | [address] | [place] [address] | [phone] | + + + + + EDWARD [...] | | | POC | performed at [facility];[address] | g/dL | LABORATORY | | | | [address];[place] | | | | | | [address] | | | | + + + + + + + + | Specimen | + + | | + + + + + + + | Performing | Address | City/State/Zipcode | Phone Number | | Organization | | | | + + + + + | [facility] | [address] | [place] [address] | [phone] | + + + + + POC [...] | | | POC | performed at [facility];[address] | g/dL | LABORATORY | | | | [address];[place], [place] | | | | | | [address] | | | | + + + + + + + + | Specimen | + + | | + + + + + + + | Performing | Address | City/State/Zipcode | Phone Number | | Organization | | | | + + + + + | [facility] | [address] | [place] [address] | [phone] | + + + + + Basic [...] | >60Comment: GFR <60: | >60 | [facility] | | | GFR | CHRONIC [...] | | | | | | MDRD [facility] traceable | | | | | | equation.Testing | | | | | | performed at [facility], [address] | | | | | | [facility], | | | | | | [place] [address] | | | | + + + + + + + + | Specimen | + + | Blood | + + + + + + + | Performing | Address | City/State/Zipcode | Phone Number | | Organization | | | | + + + + + | [facility] | [address] | [place] [address] | [phone] | + + + + + CBC [...] 0.08Comment: Testing | 0.00 - 0.10 | [facility] | | | Absolute | performed at [facility], [address] | LABORATORY | | | | [address], | | | | | | [place] [address] | | | | + + + + + + + + | Specimen | + + | Blood | + + + + + + + | Performing | Address | City/State/Zipcode | Phone Number | | Organization | | | | + + + + + | [facility] | [address] | [place] [address] | [phone] | + + + + + Magnesium (10/08/2019 5:44 AM PDT) + + + + + + | Component | Value | Ref Range | Performed | Pathologist | | | | | At | Signature | + + + + + + | Magnesium | 1.6 (L)Comment: Testing | 1.7 - 2.4 mg/dL | [facility] | | | | performed at [facility];[address] | LAB[address]AT[address] | | | [address];[place], [place] | | | | | | [address] | | | | + + + + + + + + | Specimen | + + | Blood | + + + + + + + | Performing | Address | City/State/Zipcode | Phone Number | | Organization | | | | + + + + + | [facility] | [address] | [place] [address] | [phone] | + + + + + PTT (10/07/2019 5:21 PM PDT) + + + + + + | Component | Value | Ref Range | Performed | Pathologist | | | | | At | Signature | + + + + + + | PTT | 28Comment: Testing | 23 - 32 seconds | KT | | | | performed at [facility];[address] | [address] | | | [address];[place] | | | | | | [address] | | | | + + + + + + + + | Specimen | + + | Blood - Artery, | | Radial, Right | + + + + + + + | Performing | Address | City/State/Zipcode | Phone Number | | Organization | | | | + + + + + | [facility] | [address] | [place] [address] | [phone] | + + + + + Protime [...] | | | | | performed at [facility] | | | | | | [address] [facility];[place], [place] | | | | | | [address] | | | | + + + + + + + + | Specimen | + + | Blood - Artery, | | Radial, Right | + + + + + + + | Performing | Address | City/State/Zipcode | Phone Number | | Organization | | | | + + + + + | [facility] | [address] | [place] [address] | [phone] | + + + + + Basic [...] | >60Comment: GFR <60: | >60 | [facility] H[facility]PITAL | | | GFR | CHRONIC [...] | | | | | | MDRD IDGA traceable | | | | | | equation.Testing | | | | | | performed at [facility];[address] | | | | | | [facility];[place], [place] | | | | | | [address] | | | | + + + + + + + + | Specimen | + + | Blood - Artery, | | Radial, Right | + + + + + + + | Performing | Address | City/State/Zipcode | Phone Number | | Organization | | | | + + + + + | [facility] | [address] | [place] [address] | [phone] | + + + + + CBC [...] LABORATORY | | | | performed at [facility];[address] | | | | | | [address];[place], [place] | | | | | | [address] | | | | + + + + + + + + | Specimen | + + | Blood - Right upper | | arm structure (body | | structure) | + + + + + + + | Performing | Address | City/State/Zipcode | Phone Number | | Organization | | | | + + + + + | [facility] | [address] | [place] [address] | [phone] | + + + + + Surgical [...] attached red-white | | | fibromembranous tissue. Residential Treatment Specialist sections are submitted in | | | [...] | LABORATORY:The technical component was performed by [facility] | | | [employer], [address] [place] [address] (Diamond Grinder: | | | Asia Rodriguez MD; CLIA# [id number]).Professional interpretation was | | | performed by [employer], [facility], [address] | | | [place] [address] (Diamond Grinder: Solitario | | | Jacky Recio; CLIA#: [id number]). Diagnostician: Asia Rodriguez | | | MDPathologistElectronically Signed 10/10/2019 | | | | | |PERFORMING LABORATORY: | | |The technical component was performed by [employer], [address] [place] [address] (Diamond Grinder: Asia Rodriguez MD; CLIA# [id number]). | | |Professional interpretation was performed by [employer], [facility], [address] [place] [address] (Diamond Grinder: Solitario Recio M.D.; CLIA#: [id number]). | | | | | |Diagnostician: Asia [...] | | | POC | performed at [facility];888 | g/dL | LABORATORY | | | | [address];[place], [place] | | | | | | [address] | | | | + + + + + + + + | Specimen | + + | | + + + + + + + | Performing | Address | City/State/Zipcode | Phone Number | | Organization | | | | + + + + + | [facility] | [address] | [place] [address] | [phone] | + + + + + Red [...] | [facility] | | | COMMENT | [facility];[address] | | LABORATORY | | | | [address];[place] [address] | | | | + + + + + + + + | Specimen | + + | | + + + + + + + | Performing | Address | City/State/Zipcode | Phone Number | | Organization | | | | + + + + + | [facility] | [address] | [place] [address] | [phone] | + + + + + POC [...] | | | POC | performed at [facility];888 | g/dL | LABORATORY | | | | [address];[place] | | | | | | [address] | | | | + + + + + + + + | Specimen | + + | | + + + + + + + | Performing | Address | City/State/Zipcode | Phone Number | | Organization | | | | + + + + + | [facility] | [address] | [place] [address] | [phone] | + + + + + POC [...] | | | POC | performed at [facility];888 | g/dL | LABORATORY | | | | [address];[place], [place] | | | | | | [address] | | | | + + + + + + + + | Specimen | + + | | + + + + + + + | Performing | Address | City/State/Zipcode | Phone Number | | Organization | | | | + + + + + | [facility] | [address] | [place] [address] | [phone] | + + + + + POC [...] 14.3Comment: Testing | 13.7 - 16.7 | [facility] | | | POC | performed at [facility];888 | g/dL | LABORATORY | | | | [address];[place], [place] | | | | | | [address] | | | | + + + + + + + + | Specimen | + + | | + + + + + + + | Performing | Address | City/State/Zipcode | Phone Number | | Organization | | | | + + + + + | [facility] | [address] | [place] [address] | [phone] | + + + + + Red [...] BANK | Testing performed at | | [facility] | | | COMMENT | [facility];[address] | | LABORATORY | | | | Bl[address];[place] [address] | | | | + + + + + + + + | Specimen | + + | | + + + + + + + | Performing | Address | City/State/Zipcode | Phone Number | | Organization | | | | + + + + + | [facility] | [address] | [place] [address] | [phone] | + + + + + Magnesium (10/07/2019 3:55 AM PDT) + + + + + + | Component | Value | Ref Range | Performed | Pathologist | | | | | At | Signature | + + + + + + | Magnesium | 1.6 (L)Comment: Testing | 1.7 - 2.4 mg/dL | [facility] | | | | performed at [facility];8 | | LABORATORY | | | | [facility];[place], [place] | | | | | | [address] | | | | + + + + + + + + | Specimen | + + | Blood | + + + + + + + | Performing | Address | City/State/Zipcode | Phone Number | | Organization | | | | + + + + + | [facility] | [address] | [place] [address] | [phone] | + + + + + Type [...] + + + | BB BAND | [address] | | [facility] | | | | | | LABORATORY | | + + + + + + | UNIT # | [id number] | | [facility] | | | | [...] + + + | UNIT # | [id number] | | [facility] | | | | [...] + + + | UNIT # | [id number] | | [facility] | | | | [...] + + + | UNIT # | [id number] | | [facility] | | | | [...] | | | RESULT | performed at [facility];[address] | | LABORATORY | | | | [address];[place] | | | | | | [address] | | | | + + + + + + + + | Specimen | + + | Blood | + + + + + + + | Performing | Address | City/State/Zipcode | Phone Number | | Organization | | | | + + + + + | [facility] | [address] | [place] [address] | [phone] | + + + + + Basic [...] | | | | | performed at [facility];[address] | | | | | | [address];[place] | | | | | | [address] | | | | + + + + + + + + | Specimen | + + | Blood | + + + + + + + | Performing | Address | City/State/Zipcode | Phone Number | | Organization | | | | + + + + + | [facility] | [address] | [place] [address] | [phone] | + + + + + CBC [...] | | | Absolute | performed at [facility];[address] | K/uL | LABORATORY | | | | [address];[place] | | | | | | [address] | | | | + + + + + + + + | Specimen | + + | Blood | + + + + + + + | Performing | Address | City/State/Zipcode | Phone Number | | Organization | | | | + + + + + | [facility] | [address] | [place] [address] | [phone] | + + + + + Magnesium (10/06/2019 6:27 AM PDT) + + + + + + | Component | Value | Ref Range | Performed | Pathologist | | | | | At | Signature | + + + + + + | Magnesium | 1.6 (L)Comment: Testing | 1.7 - 2.4 mg/dL | [facility] | | | | performed at [facility];[address] | | LABORATORY | | | | [address];[place] | | | | | | [address] | | | | + + + + + + + + | Specimen | + + | Blood | + + + + + + + | Performing | Address | City/State/Zipcode | Phone Number | | Organization | | | | + + + + + | [facility] | [address] | [place] [address] | [phone] | + + + + + Basic [...] | | | | | performed at [facility], [address] | | | | | | [facility], | | | | | | [place] [address] | | | | + + + + + + + + | Specimen | + + | Blood | + + + + + + + | Performing | Address | City/State/Zipcode | Phone Number | | Organization | | | | + + + + + | [facility] | [address] | [place] [address] | [phone] | + + + + + CBC [...] | | | Absolute | performed at [facility], [address] | K/uL | LABORATORY | | | | [address], | | | | | | [place] [address] | | | | + + + + + + + + | Specimen | + + | Blood | + + + + + + + | Performing | Address | City/State/Zipcode | Phone Number | | Organization | | | | + + + + + | [facility] | [address] | [place] [address] | [phone] | + + + + + Magnesium (10/05/2019 5:02 AM PDT) + + + + + + | Component | Value | Ref Range | Performed | Pathologist | | | | | At | Signature | + + + + + + | Magnesium | 1.7Comment: Testing | 1.7 - 2.4 mg/dL | [facility] | | | | performed at [facility];[address] | | LABORATORY | | | | [address];[place] | | | | | | [address] | | | | + + + + + + + + | Specimen | + + | Blood | + + + + + + + | Performing | Address | City/State/Zipcode | Phone Number | | Organization | | | | + + + + + | [facility] | [address] | [place] [address] | [phone] | + + + + + Basic [...] | | | | | performed at [facility], [address] | | | | | | [facility], | | | | | | [place] [address] | | | | + + + + + + + + | Specimen | + + | Blood | + + + + + + + | Performing | Address | City/State/Zipcode | Phone Number | | Organization | | | | + + + + + | [facility] | [address] | [place] [address] | [phone] | + + + + + CBC [...] | | | Absolute | performed at [facility], [address] | K/uL | LABORATORY | | | | [address], | | | | | | [place] [address] | | | | + + + + + + + + | Specimen | + + | Blood | + + + + + + + | Performing | Address | City/State/Zipcode | Phone Number | | Organization | | | | + + + + + | [facility] | [address] | [place] [address] | [phone] | + + + + + ECHO [...] Procedure Note | + + | Espinoza, [id number] - 10/04/2019 12:10 PM PDT | | [...] + + | Performing | Address | City/State/[facility] | Phone Number | | Organization | [...] [facility] | | | | performed at [facility];[address] | | LABORATORY | | | | [address];[place] | | | | | | [address] | | | | + + + + + + + + | Specimen | + + | Tissue - Both | | anterior nares (body | | structure) | + + + + + + + | Performing | Address | City/State/Zipcode | Phone Number | | Organization | | | | + + + + + | [facility] | [address] | [place] [address] | [phone] | + + + + + Protime INR (10/04/2019 6:12 AM PDT) + + + + + + | Component | Value | Ref Range | Performed | Pathologist | | | | | At | Signature | + + + + + + | INR | 1.1Comment: REFERENCE | | [facility] | | | | RANGE:0.9 - [...] | | | | | performed at [facility];[address] | | | | | | [address];[place] | | | | | | [address] | | | | + + + + + + + + | Specimen | + + | Blood | + + + + + + + | Performing | Address | City/State/Zipcode | Phone Number | | Organization | | | | + + + + + | [facility] | [address] | [place] [address] | [phone] | + + + + + Uric Acid (10/04/2019 4:26 AM PDT) + + + + + + | Component | Value | Ref Range | Performed | Pathologist | | | | | At | Signature | + + + + + + | Uric Acid | 3.2Comment: Testing | 3.2 - 8.6 mg/dL | [facility] | | | | performed at [facility], [address] | | LABORATORY | | | | [address], | | | | | | [place] [address] | | | | + + + + + + + + | Specimen | + + | Blood | + + + + + + + | Performing | Address | City/State/Zipcode | Phone Number | | Organization | | | | + + + + + | [facility] | [address] | [place] [address] | [phone] | + + + + + Lipid [...] | | | Calculated | performed at [facility], [address] | | LABORATORY | | | | [address], | | | | | | [place] [address] | | | | + + + + + + + + | Specimen | + + | Blood | + + + + + + + | Performing | Address | City/State/Zipcode | Phone Number | | Organization | | | | + + + + + | [facility] | [address] | [place] [address] | [phone] | + + + + + Comprehensive [...] | >60Comment: GFR <60: | >60 | [facility] | | | GFR | CHRONIC [...] | | | | | | MDRD [facility] traceable | | | | | | equation.Testing | | | | | | performed at [facility], [address] | | | | | | [facility], | | | | | | [place] [address] | | | | + + + + + + + + | Specimen | + + | Blood | + + + + + + + | Performing | Address | City/State/Zipcode | Phone Number | | Organization | | | | + + + + + | [facility] | [address] | [place] [address] | [phone] | + + + + + CBC [...] 0.08Comment: Testing | 0.00 - 0.10 | [facility] | | | Absolute | performed at [facility], [address] | K/uL | LABORATORY | | | | [address], | | | | | | [place] [address] | | | | + + + + + + + + | Specimen | + + | Blood | + + + + + + + | Performing | Address | City/State/Zipcode | Phone Number | | Organization | | | | + + + + + | [facility] | [address] | [place] [address] | [phone] | + + + + + Coronavirus [...] | | | | | performed at [facility] | | | | | | [address];[place], [place] | | | | | | [address] | | | | + + + + + + + + | Specimen | + + | Tissue - Entire | | nasopharynx (body | | structure) | + + + + + + + | Performing | Address | City/State/Zipcode | Phone Number | | Organization | | | | + + + + + | [facility] | [address] | [place] [address] | [phone] | + + + + + ECG [...] | | | | XIANG HART MD ([id number]) | | | | | | on [...] | | LABORATORY | | | | Blvd;[place] [address] | | | | + + + + + + + + | Specimen | + + | Blood | + + + + + + + | Performing | Address | City/State/Zipcode | Phone Number | | Organization | | | | + + + + + | [facility] | [address] | [place] [address] | [phone] | + + + + + Comprehensive [...] | | | | | performed at [facility];[address] | | | | | | [address] [facility];[place], [place] | | | | | | [address] | | | | + + + + + + + + | Specimen | + + | Blood | + + + + + + + | Performing | Address | City/State/Zipcode | Phone Number | | Organization | | | | + + + + + | [facility] | [address] | [place] [address] | [phone] | + + + + + CBC [...] | | | Absolute | performed at [facility];[address] | K/uL | LABORATORY | | | | [address];[place] | | | | | | [address] | | | | + + + + + + + + | Specimen | + + | Blood | + + + + + + + | Performing | Address | City/State/Zipcode | Phone Number | | Organization | | | | + + + + + | [facility] | [address] | [place] [address] | [phone] | + + + + + documented [...] | | | | | | Starting [facility] 10/12/19 at 1744 | | | [...] | | | | [facility] dose [facility] 10/10[facility]19 at 1215 | | | | [...] | | | | | | longer, mylmsa-pyv-mvfpn use of | | | | | [...] | | | | | | | lzadvn-xsu-nuxjv use of at least | | | [...] | | | | | | | wbcykp-gvv-vxneo use of at least | | | [...]
--- OUTSIDE RECORDS SUMMARY | ~2019-11-18 | XMS | Encounter Summary ---
Demographics + + + | Address | [address] | | | [place] [address] | + + + | Home Phone [...] Providers + +------+ + | Care Plate Shop Helper Name | Role | Phone | [...] [address] | | | | | | [place] [address] | | +--------+ + + + + [...] Roman Reynoso - 05/13/2007 1:34 PM PDT [id number] [place] [id number] Admission Date: 04/29/2007 Discharge Date: 05/02/2007 Staff [...] appointment. I also e-mailed the Vascular Surgery manufacturing scheduler with the patient's information to call the patient to schedule appointment as well. The patient should also follow up with his primary care doctor in 1 to 2 weeks and is to call to schedule appointment. Jacky Elizabeth M.D. PDF / HS [id number] / [id number] / [id number] / Reviewed or Edited By Roman Swartz M.D. on 05-10-2007 Electronically signed by Orlando Churchill 05-13-2007 01:33:23 PM documented in this encounter Plan of Treatment Not on filedocumented as of this encounter Visit Diagnoses Not on filedocumented in this encounter"
--- OUTSIDE RECORDS SUMMARY | ~2019-11-18 | XMS | Encounter Summary ---
Demographics + + + | Address | [address] | | | [place] [address] | + + + | Home Phone [...] Author + + + | Author | [facility] | | | and [place] | + + + | Organization | [facility] | | | [...] Team Providers + +------+ + | Care Traffic Investigator Name | Role | Phone | + [...] | | | | | disease) | [place], [place] | | | | | | ([facility]) | [address] | | | | | | Procedures | Phone: | | | | | | VAS Lwr Ext | [phone] | | | | | | Art Bilat w | Fax: | | | | | | DIANNE Multi | [phone] | | | | | | Lvl [...] | | | | | obstruction | [place], [place] | [place] | | | | | or gangrene | [address] | [address] | | | | | | Phone: | Phone: | | | | | | [phone] | [phone] | | | | | | Fax: | Fax: | | | | | | [phone] | [phone] | + + + + + + [...] | | | | | obstruction | [place] [place] | [place], [place] | | | | | or gangrene | [address] | [address] | | | | | Procedures | Phone: | Phone: | | | | | CT Abdomen | [phone] | [phone] | | | | | Pelvis wo | Fax: | Fax: | | | | | Contrast | [phone] | [phone] | + +--------+ + + + + Reason for Visit + + + | Reason | Comments | + + + | Follow-up | | + + + Encounter Details +--------+---------+ + + + | Date | Type | Department | Care Team | Description | +--------+---------+ + + + | 11/07/ | Office | [facility] | Ricci De León DNP | Incisional hernia, | | 2019 | Visit | VASCULAR SURGERY | [address] | without obstruction | | | | [address] [place] | [place] | or gangrene (Primary | | | | [place] | [address] | Dx); PAD | | | | [address] | | (peripheral artery | | | | [phone] | | disease) (HCC); S/P | | [...] De León DNP - 11/08/2019 10:30 AM [facility] [address] [place] [address] Office: [phone] DATE OF VISIT: 11/08/2019 PATIENT NAME: Jairo Theodore : 1960; AGE: 59 y.o.; Sex:M PHONE NUMBER: ; ; PROVIDER: Ricci De León DNP PRIMARY CARE / REFERRING PHYSICIAN: Ricci De León DNP / Lauren Bob MD / [address] / [place] [facility] [address] REASON FOR EVALUATION / CHIEF COMPLAINT: Vascular [...] gradually improved. He recently was admitted to [facility] on 11/02/2019 for GI bleed and [...] [place] | | | | | | [address] | | | | | | | | +--------+ + + + + | 02/06/ | Office | Vascular Surgery | Ricci De León DNP | | | 2019 | Visit | | [address] | | | | | | [place] | | | | | | [address] | | | | | | | | | | | | Magdiel Arteaga MD | | | | | | [address] | | | | | | [place] [facility] | | | | | | [place] [address] | | | | | | [phone] | | | | | | | [...] hernia, | Ordered: 11/08/2019 | | to [facility] | Referral | e | without [...]
--- OUTSIDE RECORDS SUMMARY | ~2019-11-18 | XMS | Encounter Summary ---
Demographics + + + | Address | [address] | | | [place] [address] | + + + | Home Phone [...] Team Providers + +------+ + | Care Cheesemaking Laborer Name | Role | Phone | + [...] Center | | | | | | [place] [address] | | | | | | [phone] | | +--------+ + + + + [...] Bina Harrington - 05/13/2007 1:35 PM PDT [id number] 8005/02/2007 [id number] [place] [id number] Admission Date: 04/29/2007 Discharge Date: 05/02/2007 Staff Physician: Bina Harrington N.P. ADDENDUM The patient phoned prescription of Keflex 500 mg p.o. q.i.d. x5 days to [facility] at [phone]. Bina Harrington N.P. / [id number] / [id number] / [id number] / Reviewed or Edited By Bina Harrington on 05-04-2007 Electronically signed by Orlando Churchill 05-13-2007 01:33:53 PM documented in this encounter Plan of Treatment Not on filedocumented as of this encounter Visit Diagnoses Not on filedocumented in this encounter"
--- OUTSIDE RECORDS SUMMARY | ~2019-11-18 | XMS | Encounter Summary ---
Demographics + + + | Address | [address] | | | [place] [address] | + + + | Home Phone | | + + + | Preferred Language | Unknown | + + + | Marital Status | Single | + + + | Mormon Affiliation | 1009 | + + + [...] Team Providers + +------+ + | Care Restaurant Greeter Name | Role | Phone | + [...] + + | 10/07/ | Surgery | [facility] | Magdiel Arteaga MD | THROMBECTOMY / | | 2019 | [facility] | [address] | EMBOLECTOMY of fem | | | | OPERATING RO[address] | [address] | fem bypass | | | | [address] | [place] [address] | | | | | [place], [place] | [phone] | | | | | [phone] | | | | | | [phone] | | | +--------+---------+ + + + [...] GRAFT FEMORAL-POPLITEAL (Bilateral) ANGIOGRAM - EXTREMITY BILATERAL (13313) (Bilateral) Chief Complaint: No chief complaint on [...] admitted on 10/03/[address] [facility] with bilateral hip and pelvic burning [...] have wound check in 2 weeks wit [facility] to provide transportation, continue with aspirin 81 mg daily, Plavix 75 mg daily, atorv astatin 40 mg daily. Active Problems: Alcohol abuse/ Tobacco abuse advised to stop smoking and drinking Cellulitis of right foot has been completely treated with Augmentin while in the hospital Discharge Information: [facility] [address] Follow up for Home health Wound Care [facility] [facility] [address] [place] [phone] Follow up Wound Care and Physical [...] you recover. Don t drive for at [id number] after your surgery or while you are [...] Herve last reviewed this educational content on 11/29/201819991234-8328 [employer]. [address] [place] [address], [place] [address]. All righ ts reserved. This information is [...] of developing AAA decreases. To learn more Smokefree.gov/jezc-ml-nv-expert National Cancer [place] Smoking Quitline:211-07N-JZQO (410-435-3923) Navdy last reviewed this educational content on 12/30/201819993990-6806 [employer]. [address] [place] [address], [place] [address]. All righ ts reserved. This information is [...] find a support program: Free national quitline 286-GSMN-OYF (926-978-9502) [facility] quit-smoking programs [employer] 952-220-1479 [employer] 901-730-3751 Support at home is important too. Family and friends can offer praise and reassurance. If t he smoker in your life finds it hard to quit, encourage them to keep trying. Try cltf-ztb-drujpym medicine Nicotine replacement therapymay make iteasier to [...] to quit smoking, try these resources: www.cdc.gov/tobacco/quit_smoking/ 678-XSBL-QZA (833-082-8818) www.smokefree.gov 351-79T-LTCC (949-723-7312) www.lung.org/stop-smoking/ 800-LUNGUSA (555-179-7885) [employer] lynn reviewed this educational content on 01/29/201919994736-8900 [employer]. [address] [place] [address]. All righ ts reserved. This information is [...] PA- C - 10/16/2019 7:20 AM PDT Service: Vascular Surgery Progress Note Hospital Day: LOS: 13 days Post-Op Day: 11/06 SUBJECTIVE Patient Summary: The patient is a 59 y.o. male with significant past medical history of tobacco abuse, HTN, CAD, history of alcohol abuse who presented to [facility] with com plaints of cellulitis of right leg as well as enlarging pseudoaneurysm of right MANAGED CARE PROVIDER. He unde rwent aortobifemoral bypass in 1999. [...] scan which revealed enlargement of known right MANAGED CARE PROVIDER pseudoaneurysm. He was transferred to [facility] for evaluation and Vascular was consulted [...] importance of following up with our office halfway. Still recommend discharge ho me with assist [...] 10/15/2019 10:30 AM PDT . Jairo Theodore [id number] Hospital Day: 12 SUBJECTIVE Events Overnight: Patient [...] been in touch with his Merrill, Lele [phone] and he did not want me to [...] and management as well as Computerized Physician Pit Steward. Dictation software, Superfocus, used which may contain error for similar sounding words even af ter review. Portions of this chart may have been copied from previous notes for continuity of care. Mundo Pack MD, FACP, FAAP 10/15/2019 il son, Chelsi Hebert PA-C - 10/15/2019 8:47 AM PDT Service: Vascular Surgery Progress Note Hospital Day: [...] history of alcohol abuse who presented to [facility] with com plaints of cellulitis of right leg as well as enlarging pseudoaneurysm of right MANAGED CARE PROVIDER. He unde rwent aortobifemoral bypass in 1999. [...] scan which revealed enlargement of known right MANAGED CARE PROVIDER pseudoaneurysm. He was transferred to [facility] for evaluation and Vascular was consulted [...] swelling. Call with any neurovascular changes. Appr [facility] assistance with management of this patient. Disposition: Inpatient Code Status: Full Chesli Arteaga PA-C 10/15/2019 Zuleyka Avila RN - [...] - 10/14/2019 9:23 AM PDT Jairo Theodore [id number] Hospital Day: 11 SUBJECTIVE Events Overnight: Patient [...] been in touch with his Merrill, Lele [phone] and he did not want me to [...] and management as well as Computerized Physician Pit Steward. Dictation software, Superfocus, used which may contain error for similar sounding words even af ter review. Portions of this chart may have been copied from previous notes for continuity of care. Mundo Pack MD, FACP, FAAP 10/14/2019 il son, Chelsi Hebert PA-C - 10/14/2019 8:44 AM PDT Service: Vascular Surgery Progress Note Hospital Day: [...] history of alcohol abuse who presented to [facility] with com plaints of cellulitis of right leg as well as enlarging pseudoaneurysm of right MANAGED CARE PROVIDER. He unde rwent aortobifemoral bypass in 1999. [...] scan which revealed enlargement of known right MANAGED CARE PROVIDER pseudoaneurysm. He was transferred to [facility] for evaluation and Vascular was consulted [...] 1.7 Estimated Energy Needs Energy Calorie Requirements: 9185-3170(28-32 kcal/kg per 54.3 kg admit wt ) [...] PA- C - 10/13/2019 10:33 AM PDT Service: Vascular Surgery Progress Note Hospital Day: [...] history of alcohol abuse who presented to [facility] with com plaints of cellulitis of right leg as well as enlarging pseudoaneurysm of right MANAGED CARE PROVIDER. He unde rwent aortobifemoral bypass in 1999. [...] scan which revealed enlargement of known right MANAGED CARE PROVIDER pseudoaneurysm. He was transferred to [facility] for evaluation and Vascular was consulted [...] different from t wyatt original. Jairo Theodore [id number] Hospital Day: 10 SUBJECTIVE Events Overnight: Patient [...] been in touch with his Merrill, Lele [phone] and he did not want me to [...] and management as well as Computerized Physician Pit Steward. Dictation software, Superfocus, used which may contain error for similar [...] different from the orig inal. Jairo Theodore [id number] Hospital Day: 9 SUBJECTIVE Events Overnight: Patient [...] been in touch with his Merrill, Lele [phone] and he did not want me to [...] and management as well as Computerized Physician Pit Steward. Dictation software, Superfocus, used which may contain error for similar sounding words even af ter review. Portions of this chart may have been copied from previous notes for continuity of care. Mundo Pack MD, FACP, FAAP 10/12/2019 il son, Chelsi Hebert PA-C - 10/12/2019 9:17 AM PDT Service: Vascular Surgery Progress Note Hospital Day: [...] history of alcohol abuse who presented to [facility] with com plaints of cellulitis of right leg as well as enlarging pseudoaneurysm of right MANAGED CARE PROVIDER. He unde rwent aortobifemoral bypass in 1999. [...] scan which revealed enlargement of known right MANAGED CARE PROVIDER pseudoaneurysm. He was transferred to [facility] for evaluation and Vascular was consulted [...] Color, UA YELLOW Clarity, Urine CLEAR Specific Browning, Urine 1.008 1.002 - 1.030 Leukocyte esterase, [...] performed at [facility];[address] [place] [address] Type and Screen Collection Time: 10/12/19 7:52 AM Result Value Ref Range ABO Rh A POSITIVE Antibody Screen NEGATIVE BB BAND [id number] BB BAND Testing performed at [facility];[address] [place] [address] UNIT # [id number] Product Code LEUKODEPLETED PC Unit Division 00 Unit Status ALLOCATED Transfusion Status OK TO TRANSFUSE CROSSMATCH RESULT COMPATIBLE UNIT # [id number] Product Code LEUKODEPLETED PC Unit Division 00 [...] call wit h any neurovascular changes. Appreciate [facility] assistance with management of this pat [...] be different from the originluis lWalter Theodore [id number] Hospital Day: 8 SUBJECTIVE Events Overnight: Patient [...] been in touch with his Merrill, Lele [phone] and he did not want me to [...] and management as well as Computerized Physician Pit Steward. Dictation software, Superfocus, used which may contain error for similar sounding words even af ter review. Portions of this chart may have been copied from previous notes for continuity of care. Mundo Pack MD, FACP, FAAP 10/11/2019 il son, Chelsi Hebert PA-C - 10/11/2019 6:45 AM PDT Service: Vascular Surgery Progress Note Hospital Day: [...] history of alcohol abuse who presented to [facility] with com plaints of cellulitis of right leg as well as enlarging pseudoaneurysm of right MANAGED CARE PROVIDER. He unde rwent aortobifemoral bypass in 1999. [...] scan which revealed enlargement of known right MANAGED CARE PROVIDER pseudoaneurysm. He was transferred to [facility] for evaluation and Vascular was consulted [...] Chelsi Arteaga PA-C 10/11/2019 Rachel Trinidad [facility] - 10/10/2019 11:59 AM PDTFormatting [...] P A-C - 10/10/2019 11:36 AM PDT Service: Vascular Surgery Progress Note Hospital Day: [...] history of alcohol abuse who presented to [facility] with com plaints of cellulitis of right leg as well as enlarging pseudoaneurysm of right MANAGED CARE PROVIDER. He unde rwent aortobifemoral bypass in 1999. [...] scan which revealed enlargement of known right MANAGED CARE PROVIDER pseudoaneurysm. He was transferred to [facility] for evaluation and Vascular was consulted [...] might be different from the or iginal. [facility] Service: [place] Hat Smearer Progress Note Jairo Theodore 59 y.o. Hospital [...] He was farnsworth sferred on 10/03/2019 from [facility] for right foot swelling and increase [...] procedures. Tyler Elias MD 10/10/2019 Dictation software, Superfocus, was used which may contain error with similar sound words even after review. Portions of this chart may have been copied from previous notes for continuity of care. Daniella Arias RN - 10/09/2019 10:20 AM PDTFamily/ child care attendant school updated by pt. Chelsi Orta PA-C - 10/09/2019 7:08 AM PDT Service: Vascular Surgery Progress Note Hospital Day: [...] history of alcohol abuse who presented to [facility] with com plaints of cellulitis of right leg as well as enlarging pseudoaneurysm of right MANAGED CARE PROVIDER. He unde rwent aortobifemoral bypass in 1999. [...] scan which revealed enlargement of known right MANAGED CARE PROVIDER pseudoaneurysm. He was transferred to [facility] for evaluation and Vascular was consulted [...] Gr MD - 10/09/2019 1:28 AM PDT [facility] Service: [place] Hat Smearer Progress Note Jairo Theodore 59 y.o. Hospital [...] He was farnsworth sferred on 10/03/2019 from [facility] for right foot swelling and increase [...] procedures. Julian Gr MD 10/09/2019 Dictation software, Superfocus, was used which may contain error with [...] by vascular surgery. R eport given to WATER PLUMBER. Pt safely transferred to room 54600. Incisions and dressings were teresa an and dry. Post tib and pedal pulses dopplerable. JADA SHINE RN Chyna Rashid MD - 10/08/2019 4:07 PM PDT [facility] Service: Hospitalist Progress Note Hospital Day: LOS: 5 days SUBJECTIVE Patient Summary: Mr. Theodore is a 59 yr old man active smoker 1ppday with alcohol abuse, hx of PAD, s/p right aorto bifemoral bypass in 1999 complicated by pseudoaneurysm, s/p revision, was transferred from [facility] ED for right foot swelling and increasing [...] Rashid MD - 10/07/2019 3:55 PM PDT [facility] Service: Hospitalist Progress Note Hospital Day: LOS: 4 days SUBJECTIVE Patient Summary: Mr. Theodore is a 59 yr old man active smoker 1ppday with alcohol abuse, hx of PAD, s/p right aorto bifemoral bypass in 1999 complicated by pseudoaneurysm, s/p revision, was transferred from [facility] ED for right foot swelling and [...] A POSITIVE Antibody Screen NEGATIVE BB BAND CARDIAC RN 0630 BB BAND Testing performed at [facility];[address] [place] [address];[place] [address] UNIT # [id number] Product Code LEUKODEPLETED PC Unit Division 00 Unit Status ISSUED Transfusion Status OK TO TRANSFUSE CROSSMATCH RESULT COMPATIBLE UNIT # [id number] Product Code LEUKODEPLETED PC Unit Division 00 Unit Status ISSUED Transfusion Status OK TO TRANSFUSE CROSSMATCH RESULT COMPATIBLE UNIT # [id number] Product Code LEUKODEPLETED PC Unit Division 00 Unit Status ALLOCATED Transfusion Status OK TO TRANSFUSE CROSSMATCH RESULT COMPATIBLE UNIT # [id number] Product Code LEUKODEPLETED PC Unit Division 00 Unit Status ALLOCATED Transfusion Status OK TO TRANSFUSE CROSSMATCH RESULT COMPATIBLE Red Blood Cells (PRBC) - Crossmatch and Hold Result Value Ref Range Product Code RED CELL GROUP Units ordered 2 BLOOD BANK COMMENT ORDER RECEIVED IN BLOOD BANK. BLOOD BANK COMMENT Testing performed at [facility];[address] [place] [address];[place] [address] POC ISTAT, CG8, Arterial Result Value Ref [...] [facility];[address] [place] [address];[place] [address] POC ISTAT, CG8, Arterial Result Value Ref [...] Milian PA-C - 10/07/2019 7:08 AM PDT Service: Vascular Surgery Progress Note Hospital Day: LOS: 4 days Post-Op Day: * No surgery date entered * SUBJECTIVE Patient Summary: The patient is a 59 y.o. male with significant past medical history of tobacco abuse, HTN, CAD, history of alcohol abuse who presented to [facility] with com plaints of cellulitis of right leg as well as enlarging pseudoaneurysm of right MANAGED CARE PROVIDER. He unde rwent aortobifemoral bypass in 1999. [...] scan which revealed enlargement of known right MANAGED CARE PROVIDER pseudoaneurysm. He was transferred to [facility] for evaluation and Vascular was consulted [...] A POSITIVE Antibody Screen NEGATIVE BB BAND CARDIAC RN 0630 BB BAND Testing performed at [facility];[address] [place] [address] UNIT # [id number] Product Code LEUKODEPLETED PC Unit Division 00 Unit Status ALLOCATED Transfusion Status OK TO TRANSFUSE CROSSMATCH RESULT COMPATIBLE UNIT # [id number] Product Code LEUKODEPLETED PC Unit Division 00 Unit Status ALLOCATED Transfusion Status OK TO TRANSFUSE CROSSMATCH RESULT COMPATIBLE Red Blood Cells (PRBC) - Crossmatch and Hold Collection Time: 10/07/19 6:30 AM Result Value Ref Range Product Code RED CELL GROUP Units ordered 2 BLOOD BANK COMMENT ORDER RECEIVED IN BLOOD BANK. BLOOD BANK COMMENT Testing performed at [facility];[address] [place] [address] PROBLEM LIST Principal Problem: Pseudoaneurysm right aorto [...] Shook MD - 10/06/2019 10:34 AM PDT [facility] Service: Hospitalist Progress Note Hospital Day: LOS: 3 days SUBJECTIVE Patient Summary: Mr. Theodore is a 59 yr old man active smoker 1ppday with alcohol abuse, hx of PAD, s/p right aorto bifemoral bypass in 1999 complicated by pseudoaneurysm, s/p revision, was transferred from [facility] ED for right foot swelling and increasing [...] Crum PA-C - 10/06/2019 9:32 AM PDT Service: Vascular Surgery Progress Note Hospital Day: LOS: 3 days Post-Op Day: * No surgery date entered * SUBJECTIVE Patient Summary: The patient is a 59 y.o. male with significant past medical history of tobacco abuse, HTN, CAD, history of alcohol abuse who presented to [facility] with com plaints of cellulitis of right leg as well as enlarging pseudoaneurysm of right MANAGED CARE PROVIDER. He unde rwent aortobifemoral bypass in 1999. [...] scan which revealed enlargement of known right MANAGED CARE PROVIDER pseudoaneurysm. He was transferred to [facility] for evaluation and Vascular was consulted [...] Rashid MD - 10/05/2019 12:14 PM PDT [facility] Service: Hospitalist Progress Note Hospital Day: LOS: 2 days SUBJECTIVE Patient Summary: Mr. Theodore is a 59 yr old man active smoker 1ppday with alcohol abuse, hx of PAD, s/p right aorto bifemoral bypass in 1999 complicated by pseudoaneurysm, s/p revision, was transferred from [facility] ED for right foot swelling and [...] Crum PA-C - 10/05/2019 8:18 AM PDT Service: Vascular Surgery Progress Note Hospital Day: LOS: 2 days Post-Op Day: * No surgery date entered * SUBJECTIVE Patient Summary: The patient is a 59 y.o. male with significant past medical history of tobacco abuse, HTN, CAD, history of alcohol abuse who presented to [facility] with com plaints of cellulitis of right leg as well as enlarging pseudoaneurysm of right MANAGED CARE PROVIDER. He unde rwent aortobifemoral bypass in 1999. [...] scan which revealed enlargement of known right MANAGED CARE PROVIDER pseudoaneurysm. He was transferred to [facility] for evaluation and Vascular was consulted [...] and open repair for his enlarging right MANAGED CARE PROVIDER pseudoaneurysm. He will need r etroperitoneal exposure [...] Rashid MD - 10/04/2019 9:15 AM PDT [facility] Service: Hospitalist Progress Note Hospital Day: LOS: 1 day SUBJECTIVE Patient Summary: Mr. Theodore is a 59 yr old man active smoker 1ppday with alcohol abuse, hx of PAD, s/p right aorto bifemoral bypass in 1999 complicated by pseudoaneurysm, s/p revision, was transferred from [facility] ED for right foot swelling and increasing [...] [facility];[address] [place] [address];[place] [address] ECG 12 lead Result Value Ref Range [...] check if blood cultures were taken at [facility] Prn pain medication Pseudoaneurysm right femoral [...] might be different from t he original. [facility] Service: Hospitalist Admission History & Physical [...] who p resents as a transfer from [facility] ED for pseudoaneurysm of the right groin and celluli tis of the RLE. Per patient right pseudoaneurysm of the right groin has been getting bigger for at least a year. Right foot swelling for 5 days. Patient reports [facility] a [facility] but this [...] [facility];[address] [place] [address];[place] [address] ECG 12 lead Result Value Ref Range INTERPRETATION TEXT Not Confirmed IMAGING No orders to display EKG at 2310: NSR, VR 72, Qtc 455. Data from [facility] -Ultrasound impression: 6.3 x 5.1 x [...] delirium tremens, seizures from withdrawals or withdrawals -[facility] protocol initiated Tobacco abuse: -Quit smoking today smoke a pack of cigarettes per day -Nicotine patch Hypokalemia GI and DVT prophylaxis Code Status: Full Code Dictation software, [employer], used which may contain errors for similar [...] this note might be different from the [facility] Service: [place] Hat Smearer Initial Consult Note Jairo Theodore 59 y.o. [...] was transf erred 5 days ago from [facility] for right foot swelling and increase [...] file Gets together: Not on file Attends synagogue service: Not on file Active member of [...] PDTAssociated Order(s): PROVIDER TO PROVIDER CONSUL T [facility] Service: Vascular Surgery Initial Consult Note Date of Admission: 10/03/2019 Date of Consultation: 10/04/2019 Reason for Consultation: Pseudoaneurysm of right MANAGED CARE PROVIDER Primary Care Physician: No Physician on file History Obtained From: Patient, chart review Code Status: Full Code CHIEF COMPLAINT: Right foot swelling and pain; Enlarging right femoral pseudoaneurysm HISTORY OF PRESENT ILLNESS The patient is a 59 y.o. male with significant past medical history of tobacco abuse, HTN, CAD, history of alcohol abuse who presented to [facility] with complaints of cellulitis o f right leg as well as enlarging pseudoaneurysm of right MANAGED CARE PROVIDER. He underwent aortobifemoral by pass in 1999. [...] which reveal ed enlargement of known right MANAGED CARE PROVIDER pseudoaneurysm. He was transferred to [facility] for evaluation and Vascular was consulted [...] - The patient was transferr ed to [facility] for evaluation of his enlarging pseudoaneurysm, which has been the same size for the last year he reports. [facility] last year but was lost to any follow up. He has a complex history regarding his aortic repair and his left si de is chronically occluded per review of [facility] notes and angiographic report from 2007. His C TA with runoff yesterday showed enlarging right femoral pseudoaneurysm. Left MANAGED CARE PROVIDER shows no in flow but reconstitutes. The patient will require revascularization and open repair for his e nlarging right MANAGED CARE PROVIDER pseudoaneurysm. He will need retroperitoneal exposure with [...] yes Community Agency Name: [facility] Disciplines: RN and PT - RN for wound care Equipment Durable Medical Equipment Provider: Home Equipment at Discharge: none Equipment Used at Home: cane, straight, single point Pharmacy Pharmacy/Medication needs: Pt is going to use Rx Pharmacy and will use his Medicare Part D benefits. WOODEN BARREL MECHANIC and Pt called [facility], got him reestablished with the [facility], has not been seen since 2018 . Pt is now assigned to [facility] Bob. WOODEN BARREL MECHANIC p/c with Rudolph at [facility] Bob, states they will be calling Pt for follow up appt and will send referral for outpatient wound care. WOODEN BARREL MECHANIC p/c with Carol at [facility], states she has received [facility] orders in the p ast and will follow up with Dr. Bob's office. WOODEN BARREL MECHANIC provided referral and faxed Home health referral. [...] Bed Mobility Supine to Sit, Level of [place]: modified independent Sit to Supine, Level of [place]: modified independent Safety Issues: decreased use of legs for bridging/pushing Transfers Sit-Stand, Level of [place]: supervised Stand-Sit, Level of [place]: supervised Dql-Jzira-Dmz, Assistive Device: none Gait Level of [place]: supervised Assistive Device: none Distance (feet): 40 Goals Reflects last filed data and may be from multiple contributors. All Bed Mobility Goal Most Recent Value LTG Status new at 10/09/2019 1108 LTG [place] Level modified independent at 10/09/2019 1108 LTG Assistive Device none at 10/09/2019 1108 All Transfers Goal Most Recent Value LTG Status new at 10/09/2019 1108 LTG [place] Level modified independent at 10/09/2019 1108 LTG Assistive Device 2 wheeled walker (FWW) at 10/09/2019 1108 Gait Goal Most Recent Value LTG Status new at 10/09/2019 1108 LTG [place] Level modified independent at 10/09/2019 1108 LTG Assistive Device 2 wheeled walker (FWW) at 10/09/2019 1108 LTG Distance (feet) 100 at 10/09/2019 1108 Stair Goal Most Recent Value LTG Status new at 10/09/2019 1108 LTG [place] Level modified independent at 10/09/2019 1108 LTG [...] bed rails Supine to Sit, Level of [place]: modified independent Safety Issues: decreased use of legs for bridging/pushing Impairments: ROM decreased, strength decreased Transfers Sit-Stand, Level of [place]: stand by assist, verbal cues required Stand-Sit, Level of [place]: stand by assist, verbal cues required Ayx-Izcbf-Ive, Assistive Device: 2 wheeled walker (FWW), none Toilet, Level of [place]: stand by assist, verbal cues required Toilet, Assistive Device: 2 wheeled walker (FWW), grab bars Gait Gait Comments: antalgic gait with flexed trunk posture and intermittent crouch position Level of [place]: stand by assist, verbal cues required(verbal cues [...] LTG Status new at 10/09/2019 1108 LTG [place] Level modified independent at 10/09/2019 1108 LTG Assistive Device none at 10/09/2019 1108 All Transfers Goal Most Recent Value LTG Status new at 10/09/2019 1108 LTG [place] Level modified independent at 10/09/2019 1108 LTG Assistive Device 2 wheeled walker (FWW) at 10/09/2019 1108 Gait Goal Most Recent Value LTG Status new at 10/09/2019 1108 LTG [place] Level modified independent at 10/09/2019 1108 LTG Assistive Device 2 wheeled walker (FWW) at 10/09/2019 1108 LTG Distance (feet) 100 at 10/09/2019 1108 Stair Goal Most Recent Value LTG Status new at 10/09/2019 1108 LTG [place] Level modified independent at 10/09/2019 1108 LTG [...] Bed Mobility Supine to Sit, Level of [place]: minimal assist (75% patient effort) Transfers Sit-Stand, Level of [place]: minimal assist (75% patient effort) Gait Level of [place]: minimal assist (75% patient effort) Assistive Device: [...] LTG Status new at 10/09/2019 1108 LTG [place] Level modified independent at 10/09/2019 1108 LTG Assistive Device none at 10/09/2019 1108 All Transfers Goal Most Recent Value LTG Status new at 10/09/2019 1108 LTG [place] Level modified independent at 10/09/2019 1108 LTG Assistive Device 2 wheeled walker (FWW) at 10/09/2019 1108 Gait Goal Most Recent Value LTG Status new at 10/09/2019 1108 LTG [place] Level modified independent at 10/09/2019 1108 LTG Assistive Device 2 wheeled walker (FWW) at 10/09/2019 1108 LTG Distance (feet) 100 at 10/09/2019 1108 Stair Goal Most Recent Value LTG Status new at 10/09/2019 1108 LTG [place] Level modified independent at 10/09/2019 1108 LTG [...] participation. Pt with an i ncontinent BM. UPSCALE SECURITY OFFICER and PT assisting with mobility and pericare. [...] Transfers Additional Documentation: toilet Sit-Stand, Level of [place]: minimal assist (75% patient effort) Stand-Sit, Level of [place]: minimal assist (75% patient effort) Mdx-Nnmzh-Jvt, Assistive Device: 2 wheeled walker (FWW) Toilet, Level of [place]: minimal assist (75% patient effort) Toilet, Assistive Device: 2 wheeled walker (FWW) Safety Issues: loses balance backward, weight-shifting ability decreased, step length decre ased, sequencing ability decreased, balance decreased during turns Impairments: ROM decreased, strength decreased, impaired balance Gait Gait Comments: reduced step length BLE, excessive trunk flexion, reduced weight bearing RLE , avoidance COG over HAN Level of [place]: minimal assist (75% patient effort) Assistive Device: 2 wheeled walker (FWW) Distance (feet): 15x2 Goals Reflects last filed data and may be from multiple contributors. All Bed Mobility Goal Most Recent Value LTG Status new at 10/09/2019 1108 LTG [place] Level modified independent at 10/09/2019 1108 LTG Assistive Device none at 10/09/2019 1108 All Transfers Goal Most Recent Value LTG Status new at 10/09/2019 1108 LTG [place] Level modified independent at 10/09/2019 1108 LTG Assistive Device 2 wheeled walker (FWW) at 10/09/2019 1108 Gait Goal Most Recent Value LTG Status new at 10/09/2019 1108 LTG [place] Level modified independent at 10/09/2019 1108 LTG Assistive Device 2 wheeled walker (FWW) at 10/09/2019 1108 LTG Distance (feet) 100 at 10/09/2019 1108 Stair Goal Most Recent Value LTG Status new at 10/09/2019 1108 LTG [place] Level modified independent at 10/09/2019 1108 LTG [...] Recommendations: 2 wheeled walker (FWW), shower chair, human anatomy teacher, sock aide, long handled sponge, long [...] bed rails Supine to Sit, Level of [place]: minimal assist (75% patient effort) Sit to Supine, Level of [place]: moderate assist (50% patient effort) Safety Issues: decreased use of legs for bridging/pushing, decreased use of arms for pushin g/pulling Impairments: ROM decreased, strength decreased, postural control impaired, pain Transfers Additional Documentation: sit to/from stand Sit-Stand, Level of [place]: minimal assist (75% patient effort) Stand-Sit, Level of [place]: maximal assist (25% patient effort) Adg-Atbqd-Jea, Assistive Device: 2 wheeled walker (FWW), gait belt Safety Issues: loses balance backward, weight-shifting ability decreased, step length decre ased, sequencing ability decreased, balance decreased during turns Impairments: ROM decreased, strength decreased, impaired balance ROM Comments: WFL Strength Comments: WFL. B school examiner strength 4/5. B UE MMT 4/5 except for biceps 3+/5 Balance Sitting Balance: Static: good balance Sitting Balance: Dynamic: good balance Standing Balance: Static: poor balance Standing Balance: Dynamic: poor balance Goals Reflects last filed data and may be from multiple contributors. LB Dressing Goal Most Recent Value LTG Status new at 10/10/2019 1545 LTG [place] Level minimum assist (75% patient effort), set up required at 10/10/2019 1545 LTG Adaptive Equipment human anatomy teacher, sock-aid at 10/10/2019 1545 Toilet Transfer Goal Most Recent Value LTG Status new at 10/10/2019 1545 LTG [place] Level minimum assist (75% patient effort) at [...] at bedside in ICU on turnover by hockey scout. Patient stat es he feels better, no [...] bed rails Supine to Sit, Level of [place]: minimal assist (75% patient effort) Transfers Bed-Chair, Level of [place]: minimal assist (75% patient effort) Kzl-Ghjpr-Boe, Assistive Device: 2 wheeled walker (FWW), gait belt Sit-Stand, Level of [place]: minimal assist (75% patient effort), stand by assist Stand-Sit, Level of [place]: minimal assist (75% patient effort), stand by assist Gait Gait Comments: reduced step length BLE, excessive trunk flexion, reduced weight bearing RLE , avoidance COG over HAN Level of [place]: minimal assist (75% patient effort), verbal cues [...] LTG Status new at 10/09/2019 1108 LTG [place] Level modified independent at 10/09/2019 1108 LTG Assistive Device none at 10/09/2019 1108 All Transfers Goal Most Recent Value LTG Status new at 10/09/2019 1108 LTG [place] Level modified independent at 10/09/2019 1108 LTG Assistive Device 2 wheeled walker (FWW) at 10/09/2019 1108 Gait Goal Most Recent Value LTG Status new at 10/09/2019 1108 LTG [place] Level modified independent at 10/09/2019 1108 LTG Assistive Device 2 wheeled walker (FWW) at 10/09/2019 1108 LTG Distance (feet) 100 at 10/09/2019 1108 Stair Goal Most Recent Value LTG Status new at 10/09/2019 1108 LTG [place] Level modified independent at 10/09/2019 1108 LTG [...] Family Contact Information: Name: Lele Conley (Roommate) [email or web address] signed by PORTILLO Varner at 10/10/2019 10:13 [...] HOB elevated Supine to Sit, Level of [place]: maximal assist (25% patient effort) Safety Issues: decreased use of legs for bridging/pushing, impaired trunk control for bed m obility Impairments: pain, strength decreased, ROM decreased Transfers Additional Documentation: sit to/from stand, bed to/from chair Bed-Chair, Level of [place]: moderate assist (50% patient effort) Ddk-Kejaf-Wac, Assistive Device: 2 wheeled walker (FWW) Sit-Stand, Level of [place]: minimal assist (75% patient effort) Stand-Sit, Level of [place]: minimal assist (75% patient effort) Qiy-Phszo-Umm, Assistive Device: 2 wheeled walker (FWW) Safety [...] LTG Status new at 10/09/2019 1108 LTG [place] Level modified independent at 10/09/2019 1108 LTG Assistive Device none at 10/09/2019 1108 All Transfers Goal Most Recent Value LTG Status new at 10/09/2019 1108 LTG [place] Level modified independent at 10/09/2019 1108 LTG Assistive Device 2 wheeled walker (FWW) at 10/09/2019 1108 Gait Goal Most Recent Value LTG Status new at 10/09/2019 1108 LTG [place] Level modified independent at 10/09/2019 1108 LTG Assistive Device 2 wheeled walker (FWW) at 10/09/2019 1108 LTG Distance (feet) 100 at 10/09/2019 1108 Stair Goal Most Recent Value LTG Status new at 10/09/2019 1108 LTG [place] Level modified independent at 10/09/2019 1108 LTG [...] 1.7 Estimated Energy Needs Energy Calorie Requirements: 1765-2838(28-32 kcal/kg per 54.3 kg admit wt ) [...] progressing Flowsheets (Taken 10/09/2019 1024) Participants: case finisher dietitian/nutrition services advanced practice nurse nursing pharmacy [...] started on clear liquid diet. lan of [facility] - Viv Santos MSW - 10/09/2019 9:44 AM PDTAttended morning rounds. Pt transferred to ICU post -op for repair of thrombosed fem-fem artery bypass. Progressing. Await PT to eval and alissa baez recommendations. Has no PCP per CM note and FS. [place] is [place]-. [facility] of [facility] Urszula Chaudhary RN - 10/09/2019 8:02 [...] Theodore 59 y.o. 1960 Med. Record Number: [id number] Date of admission: 10/03/2019 Date of Operation/Procedure: [...] disease (HCC) [I73.9] Surgeon: Magdiel Arteaga MD Dumper Bulk System: Maicol Abel PA-C Anesthesia Provider(s): Anesthesiologist: Orlando Ambriz DO TOOL AND DIE MAKER: Som Garcia CRNA Anesthesia Type: Anesthesia type not filed in the log. Procedure(s): THROMBECTOMY / EMBOLECTOMY of fem fem bypass BILATERAL BYPASS GRAFT FEMORAL-POPLITEAL WITH 6 MM PTFE ANGIOGRAM - EXTREMITY BILATERAL (29221) Operative Findings: Thrombosed femoral to femoral artery [...] Implant Name Type Inv. Item Serial No. Human Resource Assistant Lot No. LRB No. Used Action GRAFT VAS PROPATEN 6-80MM - [id number] Graft GRAFT VAS PROPATEN 6-80MM [id number] WL G SABINA - NEPTALIGO NA N/A 1 Implanted GRAFT VAS PROPATEN 6-80MM - [id number] Graft GRAFT VAS PROPATEN 6-80MM [id number] WL G ORE - WLGO NA N/A 1 Implanted Counts: Instrument, sponge, and needle counts were correct prior to closure and at the con clusion of the case. Complications: None Disposition: The patient was taken to PACU Immediate Post-Operative Condition: Stable Electronically signed by: Magdiel Arteaga MD, 10/08/2019, 2:31 PM PDT p Note - Magdiel Arteaga MD - 10/08/2019 10 :06 AM PDT [facility] OPERATIVE REPORT PATIENT NAME: Jairo Theoodre AGE: 59 y.o. TODAY'S DATE: 10/09/2019 Surgeon: [...] the femorofemoral bypass. Using 2 CV 6 [place]-Jamie sutures the 6 mm bypass was anastomos [...] astomosis was created with 2 CV 6 [place]-Jamie sutures. Prior to completing the anastomosis the [...] Magdiel Arteaga MD Vascular Surgery Dictation software, Superfocus, used which may contain error for similar [...] Arteaga MD - 10/07/2019 7:00 PM PDT [facility] OPERATIVE REPORT PATIENT NAME: Jairo Theodore [...] femoral endarterectomy was performed w ith a [place] elevator. There was good backbleeding from the [...] common femoral endarterectomy was performed using the [place] elevator. After performing the endarterect carlyle there [...] Magdiel Arteaga MD Vascular Surgery Dictation software, Superfocus, used which may contain error for similar sounding words even af ter review. Personal communication requested for any clarification. Electronically signed by: Magdiel Arteaga MD, 10/09/2019 9:28 AM [facility] rief Op Note - Magdiel Arteaga MD - 10/07/2019 4:30 PM PDTFormatting of this note might be different from the or iginal. BRIEF OPERATIVE NOTE [facility] Pt. Name/Age/: Jairo Theodore 59 y.o. 1960 Med. Record Number: [id number] Date of admission: 10/03/2019 Date of Operation/Procedure: 10/07/2019 Preoperative Diagnosis: 1. Large right groin pseudoaneurysm 2. Peripheral arterial disease Postoperative Diagnosis: * Pseudoaneurysm (HCC) [I72.9] Surgeon: Magdiel Arteaga MD Dumper Bulk System: Maicol Abel PA-C Anesthesia Provider(s): Anesthesiologist: Rudolph Lowery MD TOOL AND DIE MAKER: Neville Rush CRNA Anesthesia Type: General Procedure(s): [...] Implant Name Type Inv. Item Serial No. Human Resource Assistant Lot No. LRB No. Used Action GRAFT GORE PROPATEN [id number] - [id number] Graft GRAFT GORE PROPATEN [id number] WL GORE - WLGO NA Right 1 Implanted GRAFT HEMGRD KNIT [id number] - [id number] Graft GRAFT HEMGRD KNIT [id number] [employer] - MAQU [id number] Right 1 Implanted [...] VSS with one SBP in 170s recheck [id number]. Report given to preop nurse and 0600IVPB [...] Notes: Pt resides with his friend in [place]. Pt is independent - no caregiver, home [...] of RLE and enlarging pseudoaneurysm of right MANAGED CARE PROVIDER. Pt scheduled for pseudoaneurysm repair on 10/04. [...] BUN 7* CREA 0.60* Estimated Energy Needs 0809-8479 kcal/day (28-32 kcal/kg per 54.3 kg admit [...] [place] | | | | | | [address]45972 | | | | | | | | +--------+ + + + + | 02/06/ | Office | Vascular Surgery | Ricci De León DNP | | | 2019 | Visit | | [address] | | | | | | [place], [place] | | | | | | [address] | | | | | | | | | | | | Magdiel Arteaga MD | | | | | | [address] | | | | | | [place] [address] | | | | | | [place] [address] | | | | | | [phone] | | | | | | | [...] Expected: | | | | e | ([facility]) right aorto | 10/23/2019, Expires: | | | | | femoral bypass | 10/15/2020 | + +---------+--------+ + + | CBC w/ Auto | Lab | Routin | Pseudoaneurysm | Expected: | | Differential | | e | ([facility]) right aorto | 10/23/2019, Expires: | | | | | femoral bypass | 10/15/2020 | + +---------+--------+ + + | Phosphorus | Lab | Routin | Pseudoaneurysm | 1 Occurrences | | | | e | ([facility]) right aorto | starting 10/16/2019 [...] Expected: | | | | e | ([facility]) right aorto | 10/23/2019, Expires: [...] | Health | Referral | e | ([facility]) right aorto | | | | | | femoral bypass | | | | | | Cellulitis of right | | | | | | foot 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 ([facility]) | [facility] Peripheral | | | (40440) | | PDT | arterial disease | | | | | | ([facility]) | | + +--------+ + + + | BYPASS GRAFT | | 10/08/2019 | Pseudoaneurysm | | | FEMORAL-POPLITEAL | | 9:22 AM | ([facility]) Peripheral | | | | | PDT | arterial disease | | | | | | ([facility]) | | + +--------+ + [...] LABORATORY | | | | performed at [facility], [address] | | | | | [address] [facility] [address], | | | | | | [place] [address] | | | | + + + + + + + + | Specimen | + + | Blood | + + + + + + + | Performing | Address | City/State/Zipcode | Phone Number | | Organization | | | | + + + + + | [facility] | [address] | [place] [address] | [phone] | + + + + + Magnesium [...] [place] | | | | | | [address] | | | | + + + + + + + + | Specimen | + + | Blood | + + + + + + + | Performing | Address | City/State/Zipcode | Phone Number | | Organization | | | | + + + + + | [facility] | [address] | [place] [address] | [phone] | + + + + + Potassium [...] [place] | | | | | | [address] | | | | + + + + + + + + | Specimen | + + | Blood | + + + + + + + | Performing | Address | City/State/Zipcode | Phone Number | | Organization | | | | + + + + + | [facility] | [address] | [place] [address] | [phone] | + + + + + CBC [...] LABORATORY | | | | performed at [facility], [address] | | | | | [address], | | | | | | [place] [address] | | | | + + + + + + + + | Specimen | + + | Blood | + + + + + + + | Performing | Address | City/State/Zipcode | Phone Number | | Organization | | | | + + + + + | [facility] | [address] | [place] [address] | [phone] | + + + + + Magnesium [...] | LABORATORY | | | | [address];[place], [place] | | | | | | [address] | | | | + + + + + + + + | Specimen | + + | Blood | + + + + + + + | Performing | Address | City/State/Zipcode | Phone Number | | Organization | | | | + + + + + | [facility] | [address] | [place] [address] | [phone] | + + + + + Basic [...] | | | | | performed at [facility], [address] | | | | | | [facility], | | | | | | [place] [address] | | | | + + + + + + + + | Specimen | + + | Blood | + + + + + + + | Performing | Address | City/State/Zipcode | Phone Number | | Organization | | | | + + + + + | [facility] | [address] | [place] [address] | [phone] | + + + + + Potassium [...] [place] | | | | | | [address] | | | | + + + + + + + + | Specimen | + + | Blood | + + + + + + + | Performing | Address | City/State/Zipcode | Phone Number | | Organization | | | | + + + + + | [facility] | [address] | [place] [address] | [phone] | + + + + + Magnesium [...] | LABORATORY | | | | [address];[place], [place] | | | | | | [address] | | | | + + + + + + + + | Specimen | + + | Blood | + + + + + + + | Performing | Address | City/State/Zipcode | Phone Number | | Organization | | | | + + + + + | [facility] | [address] | [place] [address] | [phone] | + + + + + Phosphorus [...] | LABORATORY | | | | [address];[place], [place] | | | | | | [address] | | | | + + + + + + + + | Specimen | + + | Blood | + + + + + + + | Performing | Address | City/State/Zipcode | Phone Number | | Organization | | | | + + + + + | [facility] | [address] | [place] [address] | [phone] | + + + + + CBC [...] LABORATORY | | | | performed at [facility], [address] | | | | | [address], | | | | | | [place] [address] | | | | + + + + + + + + | Specimen | + + | Blood | + + + + + + + | Performing | Address | City/State/Zipcode | Phone Number | | Organization | | | | + + + + + | [facility] | [address] | [place] [address] | [phone] | + + + + + Magnesium [...] | LABORATORY | | | | [address];[place] | | | | | | [address] | | | | + + + + + + + + | Specimen | + + | Blood | + + + + + + + | Performing | Address | City/State/Zipcode | Phone Number | | Organization | | | | + + + + + | [facility] | [address] | [place] [address] | [phone] | + + + + + Basic [...] | | | | | performed at [facility], [address] | | | | | | [address], | | | | | | [place] [address] | | | | + + + + + + + + | Specimen | + + | Blood | + + + + + + + | Performing | Address | City/State/Zipcode | Phone Number | | Organization | | | | + + + + + | [facility] | [address] | [place] [address] | [phone] | + + + + + Potassium (10/13/2019 11:07 AM PDT) + + + + + + | Component | Value | Ref Range | Performed | Pathologist | | | | | At | Signature | + + + + + + | K | 3.5Comment: Testing | 3.5 - 4.9 | [facility] | | | | performed at [facility];[address] | mmol/L | LABORATORY | | | | [address];[place] | | | | | | [address] | | | | + + + + + + + + | Specimen | + + | Blood | + + + + + + + | Performing | Address | City/State/Zipcode | Phone Number | | Organization | | | | + + + + + | [facility] | [address] | [place] [address] | [phone] | + + + + + Potassium [...] | LABORATORY | | | | [address];[place], [place] | | | | | | [address] | | | | + + + + + + + + | Specimen | + + | Blood | + + + + + + + | Performing | Address | City/State/Zipcode | Phone Number | | Organization | | | | + + + + + | [facility] | [address] | [place] [address] | [phone] | + + + + + Magnesium [...] [place] | | | | | | [address] | | | | + + + + + + + + | Specimen | + + | Blood | + + + + + + + | Performing | Address | City/State/Zipcode | Phone Number | | Organization | | | | + + + + + | [facility] | [address] | [place] [address] | [phone] | + + + + + Basic [...] | | | | | | MDRD IDFL traceable | | | | | | equation.Testing | | | | | | performed at [facility];[address] | | | | | | [facility];[place], [place] | | | | | | [address] | | | | + + + + + + + + | Specimen | + + | Blood | + + + + + + + | Performing | Address | City/State/Zipcode | Phone Number | | Organization | | | | + + + + + | [facility] | [address] | [place] [address] | [phone] | + + + + + Hemoglobin [...] | LABORATORY | | | | [address];[place], [place] | | | | | | [address] | | | | + + + + + + + + | Specimen | + + | Blood | + + + + + + + | Performing | Address | City/State/Zipcode | Phone Number | | Organization | | | | + + + + + | [facility] | [address] | [place] [address] | [phone] | + + + + + Potassium [...] | LABORATORY | | | | [address] | | | | | | [address] | | | | + + + + + + + + | Specimen | + + | Blood | + + + + + + + | Performing | Address | City/State/Zipcode | Phone Number | | Organization | | | | + + + + + | [facility] | [address] | [place] [address] | [phone] | + + + + + Clostridium [...] | | [facility];[address] [place] [address] | | | | | | [facility];[place] [address] | | | | + + + [...] HOSPITAL LABORATORY | [address] | [place] [address] | [phone] | + + + + + Potassium [...] | LABORATORY | | | | [address];[place] | | | | | | [address] | | | | + + + + + + + + | Specimen | + + | Blood | + + + + + + + | Performing | Address | City/State/Zipcode | Phone Number | | Organization | | | | + + + + + | [facility] | [address] | [place] [address] | [phone] | + + + + + Type [...] + + + | BB BAND | [id number] | | [facility] | | | | | | LABORATORY | | + + + + + + | UNIT # | [id number] | | [facility] | | | | [facility];[address] | | LABORATORY | | | | [address];[place] | | | | | | [address] | | | | + + + + + + | UNIT # | [id number] | | [facility] | | | | [...] | [address] | [place] [address] | [phone] | + + + + + Red [...] [facility] | | | COMMENT | [facility];[address] | | LABORATORY | | | | [address];[place] [address] | | | | + + + + + + + + | Specimen | + + | | + + + + + + + | Performing | Address | City/State/Zipcode | Phone Number | | Organization | | | | + + + + + | [facility] | [address] | [place] [address] | [phone] | + + + + + Magnesium [...] performed at [facility] | | LABORATORY | | | | [address];[place] | | | | | | [address] | | | | + + + + + + + + | Specimen | + + | Blood | + + + + + + + | Performing | Address | City/State/Zipcode | Phone Number | | Organization | | | | + + + + + | [facility] | [address] | [place] [address] | [phone] | + + + + + Comprehensive [...] | | | | | | [facility];[place], [place] | | | | | | [address] | | | | + + + + + + + + | Specimen | + + | Blood | + + + + + + + | Performing | Address | City/State/Zipcode | Phone Number | | Organization | | | | + + + + + | [facility] | [address] | [place] [address] | [phone] | + + + + + CBC [...] | [facility] | | | | NURSING [id number] H | g/dL | LABORATORY | | [...] | [facility] | | | | NURSING [id number] | | LABORATORY | | | | [...] performed at [facility] | | | | | | [address];[place], [place] | | | | | | [address] | | | | + + + + + + + + | Specimen | + + | Blood | + + + + + + + | Performing | Address | City/State/Zipcode | Phone Number | | Organization | | | | + + + + + | [facility] | [address] | [place] [address] | [phone] | + + + + + Urinalysis [...] - 1.030 | [facility] | | | [place], | | | LABORATORY | | | [...] LABORATORY | | | | [place], [address] [facility] | | | | | | [place] | | | | | | [address] | | | | + + + [...] HOSPITAL LAB[facility]ATORY | [address] | [place] [address] | [phone] | + + + + + Osmolality, Urine (10/11/2019 11:16 AM PDT) + + + + + + | Component | Value | Ref Range | Performed | Pathologist | | | | | At | Signature | + + + + + + | OSMO URINE | 239Comment: Testing | 50 - 1,200 | [facility] | | | | performed at [facility], [address] | mOsm/kg | LABORATORY | | | | [address], | | | | | | [place] [address] | | | | + + + [...] HOSPITAL LAB[facility]ATORY | [address] | [place] [address] | [phone] | + + + + + Culture, [...] Requests | [facility] [address] | | LABORATORY | | | | Blvd;[place] [address] | | | | + + + [...] LABORATORY | | | | [address] | | | | | | [address]Ymczsve: Testing | | | | | | performed at [facility], [address] | | | | | | [address] [facility] [place], [place] | | | | | | [address] | | | | + + + [...] [facility] | [address] | [place] [address] | [phone] | + + + + + XR [...] Procedure Note | + + | Espinoza, [id number] - 10/11/2019 10:42 AM PDT | | [...] | | LABORATORY | | | | Blvd;[place] [address] | | | | + + + [...] LABORATORY | | | | [address] | | | | | | [address]Yngzxjm: Testing | | | | | | performed at [facility], [address] | | | | | | [address] [place] | | | | | | [address] | | | | + + + [...] LABORATORY | [address] | [place] [address] | [phone] | + + + + + Sodium (10/11/2019 9:30 AM PDT) + + + + + + | Component | Value | Ref Range | Performed | Pathologist | | | | | At | Signature | + + + + + + | Na | 127 (L)Comment: Testing | 135 - 145 | [facility] | | | | performed at [facility];[address] | mmol/L | LABORATORY | | | | [address];[place] | | | | | | [address] | | | | + + + + + + + + | Specimen | + + | Blood | + + + + + + + | Performing | Address | City/State/Zipcode | Phone Number | | Organization | | | | + + + + + | [facility] | [address] | [place] [address] | [phone] | + + + + + Osmolality, [...] [address], | | | | | | [place] [address] | | | | + + + + + + + + | Specimen | + + | Blood | + + + + + + + | Performing | Address | City/State/Zipcode | Phone Number | | Organization | | | | + + + + + | [facility] | [address] | [place] [address] | [phone] | + + + + + Comprehensive [...] [facility];[address] | | | | | | [facility];[place], [place] | | | | | | [address] | | | | + + + + + + + + | Specimen | + + | Blood | + + + + + + + | Performing | Address | City/State/Zipcode | Phone Number | | Organization | | | | + + + + + | [facility] | [address] | [place] [address] | [phone] | + + + + + CBC [...] [place] | | | | | | [address] | | | | + + + + + + + + | Specimen | + + | Blood | + + + + + + + | Performing | Address | City/State/Zipcode | Phone Number | | Organization | | | | + + + + + | [facility] | [address] | [place] [address] | [phone] | + + + + + Comprehensive [...] [place] | | | | | | [address] | | | | + + + + + + + + | Specimen | + + | Blood | + + + + + + + | Performing | Address | City/State/Zipcode | Phone Number | | Organization | | | | + + + + + | [facility] | [address] | [place] [address] | [phone] | + + + + + Magnesium [...] | LABORATORY | | | | [address];[place] | | | | | | [address] | | | | + + + + + + + + | Specimen | + + | Blood | + + + + + + + | Performing | Address | City/State/Zipcode | Phone Number | | Organization | | | | + + + + + | [facility] | [address] | [place] [address] | [phone] | + + + + + CBC [...] | LABORATORY | | | | [address];[place], [place] | | | | | | [address] | | | | + + + + + + + + | Specimen | + + | Blood | + + + + + + + | Performing | Address | City/State/Zipcode | Phone Number | | Organization | | | | + + + + + | [facility] | [address] | [place] [address] | [phone] | + + + + + Lactic [...] | LABORATORY | | | | [address];[place], [place] | | | | | | [address] | | | | + + + + + + + + | Specimen | + + | Blood | + + + + + + + | Performing | Address | City/State/Zipcode | Phone Number | | Organization | | | | + + + + + | [facility] | [address] | [place] [address] | [phone] | + + + + + Comprehensive [...] | >60Comment: GFR <60: | >60 | [facility] | | | GFR | CHRONIC [...] | | | | | | MDRD [facility] traceable | | | | | | equation.Testing | | | | | | performed at [facility];[address] | | | | | | [facility];[place], [place] | | | | | | [address] | | | | + + + + + + + + | Specimen | + + | Blood | + + + + + + + | Performing | Address | City/State/Zipcode | Phone Number | | Organization | | | | + + + + + | [facility] | [address] [facility] | [place] [address] | [phone] | + + + + + Procalcitonin [...] | at [facility];[address] [place] [address] | | | | | | [facility];[place] [address] | | | | + + + + + + + + | Specimen | + + | Blood | + + + + + + + | Performing | Address | City/State/Zipcode | Phone Number | | Organization | | | | + + + + + | [facility] | [address] | [place] [address] | [phone] | + + + + + Phosphorus [...] | LABORATORY | | | | [address];[place] | | | | | | [address] | | | | + + + + + + + + | Specimen | + + | Blood | + + + + + + + | Performing | Address | City/State/Zipcode | Phone Number | | Organization | | | | + + + + + | [facility] | [address] | [place] [address] | [phone] | + + + + + Magnesium [...] [place] | | | | | | [address] | | | | + + + + + + + + | Specimen | + + | Blood | + + + + + + + | Performing | Address | City/State/Zipcode | Phone Number | | Organization | | | | + + + + + | [facility] | [address] | [place] [address] | [phone] | + + + + + CBC [...] [facility];[address] | | | | | | [facility];[place] | | | | | | [address] | | | | + + + + + + + + | Specimen | + + | Blood | + + + + + + + | Performing | Address | City/State/Zipcode | Phone Number | | Organization | | | | + + + + + | [facility] | [address] | [place] [address] | [phone] | + + + + + POC [...] | LABORATORY | | | | [address];[place], [place] | | | | | | [address] | | | | + + + + + + + + | Specimen | + + | | + + + + + + + | Performing | Address | City/State/Zipcode | Phone Number | | Organization | | | | + + + + + | [facility] | [address] | [place] [address] | [phone] | + + + + + Phosphorus [...] | LABORATORY | | | | [address];[place], [place] | | | | | | [address] | | | | + + + + + + + + | Specimen | + + | Blood | + + + + + + + | Performing | Address | City/State/Zipcode | Phone Number | | Organization | | | | + + + + + | [facility] | [address] [facility] [facility] | [place] [address] | [phone] | + + + + + Magnesium [...] [place] | | | | | | [address] | | | | + + + + + + + + | Specimen | + + | Blood | + + + + + + + | Performing | Address | City/State/Zipcode | Phone Number | | Organization | | | | + + + + + | [facility] | [address] | [place] [address] | [phone] | + + + + + CBC [...] | | [facility];[address] | | | | | | [address];[place] [address] | | | | + + + + + + + + | Specimen | + + | Blood | + + + + + + + | Performing | Address | City/State/Zipcode | Phone Number | | Organization | | | | + + + + + | [facility] | [address] | [place] [address] | [phone] | + + + + + Basic [...] [facility];[address] | | | | | | [facility];[place], [place] | | | | | | [address] | | | | + + + + + + + + | Specimen | + + | Blood | + + + + + + + | Performing | Address | City/State/Zipcode | Phone Number | | Organization | | | | + + + + + | [facility] | [address] | [place] [address] | [phone] | + + + + + PTT [...] | LABORATORY | | | | [address];[place], [place] | | | | | | [address] | | | | + + + + + + + + | Specimen | + + | Blood | + + + + + + + | Performing | Address | City/State/Zipcode | Phone Number | | Organization | | | | + + + + + | [facility] | [address] | [place] [address] | [phone] | + + + + + POC [...] | LABORATORY | | | | [address];[place], [place] | | | | | | [address] | | | | + + + + + + + + | Specimen | + + | | + + + + + + + | Performing | Address | City/State/Zipcode | Phone Number | | Organization | | | | + + + + + | [facility] | [address] | [place] [address] | [phone] | + + + + + POC ISTAT, CG8, Arterial (10/08/2019 1:22 PM PDT) + + + + + + | Component | Value | Ref Range | Performed | Pathologist | | | | | At | Signature | + + + + + + | pH, | 7.334 (L) | 7.350 - 7.450 | [facility] [...] | LABORATORY | | | | [address];[place] | | | | | | [address] | | | | + + + + + + + + | Specimen | + + | | + + + + + + + | Performing | Address | City/State/Zipcode | Phone Number | | Organization | | | | + + + + + | [facility] | [address] | [place] [address] | [phone] | + + + + + Basic [...] 7.2 (L) | 8.5 - 10.5 | [facility] | | | | | mg/dL | LABORATORY | | + + + + + + | Estimated | >60Comment: GFR <60: | >60 | [facility] | | | GFR | CHRONIC [...] | | | | | performed at [facility], [address] | | | | | | [facility], | | | | | | [place] [address] | | | | + + + + + + + + | Specimen | + + | Blood | + + + + + + + | Performing | Address | City/State/Zipcode | Phone Number | | Organization | | | | + + + + + | [facility] | [address] | [place] [address] | [phone] | + + + + + CBC [...] | | | Absolute | performed at [facility], [address] | K/uL | LABORATORY | | | | [address], | | | | | | [place] [address] | | | | + + + + + + + + | Specimen | + + | Blood | + + + + + + + | Performing | Address | City/State/Zipcode | Phone Number | | Organization | | | | + + + + + | [facility] | [address] | [place] [address] | [phone] | + + + + + Magnesium [...] [place] | | | | | | [address] | | | | + + + + + + + + | Specimen | + + | Blood | + + + + + + + | Performing | Address | City/State/Zipcode | Phone Number | | Organization | | | | + + + + + | [facility] | [address] | [place] [address] | [phone] | + + + + + PTT [...] | LABORATORY | | | | [address];[place] | | | | | | [address] | | | | + + + [...] LABORATORY | [address] | [place] [address] | [phone] | + + + + + Protime [...] performed at [facility] | | | | | | [facility];[place], [place] | | | | | | [address] | | | | + + + [...] HOSPITAL LAB[facility]ATORY | [address] | [place] [address] | [phone] | + + + + + Basic [...] 7.0 (L) | 8.5 - 10.5 | [facility] | | | | | mg/dL [...] [facility];[address] | | | | | | [facility];[place], [place] | | | | | | [...] HOSPITAL LABORATORY | [address] | [place] [address] | [phone] | + + + + + CBC [...] [place] | | | | | | [address] | | | | + + + [...] HOSPITAL LABORATORY | [address] | [place] [address] | [phone] | + + + + + Surgical [...] | including foreign body giant cell reaction. [facility] MICROSCOPIC | | | EXAMINATION:Histologic [...] red-white | | | fibromembranous tissue. Supervisor Grading sections are submitted in | | | [...] | LABORATORY:The technical component was performed by [facility] | | | [facility], [address] [place] [address] (Physical Education Teacher: | | | Asia Rodriguez MD; CLIA# [id number]).Professional interpretation was | | | performed by [facility], [address] | | | [place] [address] (Physical Education Teacher: Solitario | | | Jacky Recio; CLIA#: [id number]). Diagnostician: Asia Rodriguez | | | MDPathologistElectronically Signed 10/10/2019 | | | | | |PERFORMING LABORATORY: | | |The technical component was performed by [employer], [address] [place] [address] (Physical Education Teacher: Asia Rodriguez MD; CLIA# [id number]). | | |Professional interpretation was performed by [facility], [address] [place] [address] (Physical Education Teacher: Solitario Recio M.D.; CLIA#: [id number]). | | | | | |Diagnostician: Asia [...] [place] | | | | | | [address] | | | | + + + + + + + + | Specimen | + + | | + + + + + + + | Performing | Address | City/State/Zipcode | Phone Number | | Organization | | | | + + + + + | [facility] | [address] | [place] [address] | [phone] | + + + + + Red [...] LABORATORY | | | | Blvd;[place] [address] | | | | + + + + + + + + | Specimen | + + | | + + + + + + + | Performing | Address | City/State/Zipcode | Phone Number | | Organization | | | | + + + + + | [facility] | [address] | [place] [address] | [phone] | + + + + + POC [...] | LABORATORY | | | | [address];[place], [place] | | | | | | [address] | | | | + + + + + + + + | Specimen | + + | | + + + + + + + | Performing | Address | City/State/Zipcode | Phone Number | | Organization | | | | + + + + + | [facility] | [address] | [place] [address] | [phone] | + + + + + POC [...] | LABORATORY | | | | [address];[place] | | | | | | [address] | | | | + + + + + + + + | Specimen | + + | | + + + + + + + | Performing | Address | City/State/Zipcode | Phone Number | | Organization | | | | + + + + + | [facility] | [address] | [place] [address] | [phone] | + + + + + POC [...] | LABORATORY | | | | [address];[place], [place] | | | | | | [address] | | | | + + + + + + + + | Specimen | + + | | + + + + + + + | Performing | Address | City/State/Zipcode | Phone Number | | Organization | | | | + + + + + | [facility] | [address] | [place] [address] | [phone] | + + + + + Red [...] | | LABORATORY | | | | Blvd;[place] [address] | | | | + + + + + + + + | Specimen | + + | | + + + + + + + | Performing | Address | City/State/Zipcode | Phone Number | | Organization | | | | + + + + + | [facility] | [address] | [place] [address] | [phone] | + + + + + Magnesium [...] [place] | | | | | | [address] | | | | + + + + + + + + | Specimen | + + | Blood | + + + + + + + | Performing | Address | City/State/Zipcode | Phone Number | | Organization | | | | + + + + + | [facility] | [address] | [place] [address] | [phone] | + + + + + Type [...] + + + | BB BAND | CARDIAC RN 0630 | | [facility] | | | | | | LABORATORY | | + + + + + + | UNIT # | [id number] | | [facility] | | | | [...] + + + | UNIT # | [id number] | | [facility] | | | | [...] + + + | UNIT # | [id number] | | [facility] | | | | [...] + + + | UNIT # | [id number] | | [facility] | | | | [...] | LABORATORY | | | | [address];[place] | | | | | | [address] | | | | + + + + + + + + | Specimen | + + | Blood | + + + + + + + | Performing | Address | City/State/Zipcode | Phone Number | | Organization | | | | + + + + + | [facility] | [address] | [place] [address] | [phone] | + + + + + Basic [...] | >60Comment: GFR <60: | >60 | [facility] | | | GFR | CHRONIC [...] | | | | | | MDRD IDFL traceable | | | | | | equation.Testing | | | | | | performed at [facility] | | | | | | [facility];[place], [place] | | | | | | [address] | | | | + + + + + + + + | Specimen | + + | Blood | + + + + + + + | Performing | Address | City/State/Zipcode | Phone Number | | Organization | | | | + + + + + | [facility] | [address] | [place] [address] | [phone] | + + + + + CBC [...] | LABORATORY | | | | [address];[place], [place] | | | | | | [address] | | | | + + + + + + + + | Specimen | + + | Blood | + + + + + + + | Performing | Address | City/State/Zipcode | Phone Number | | Organization | | | | + + + + + | [facility] | [address] | [place] [address] | [phone] | + + + + + Magnesium [...] | LABORATORY | | | | [address];[place], [place] | | | | | | [address] | | | | + + + + + + + + | Specimen | + + | Blood | + + + + + + + | Performing | Address | City/State/Zipcode | Phone Number | | Organization | | | | + + + + + | [facility] | [address] | [place] [address] | [phone] | + + + + + Basic [...] | | | | | performed at [facility], [address] | | | | | | [facility], | | | | | | [place] [address] | | | | + + + + + + + + | Specimen | + + | Blood | + + + + + + + | Performing | Address | City/State/Zipcode | Phone Number | | Organization | | | | + + + + + | [facility] | [address] | [place] [address] | [phone] | + + + + + CBC [...] | | | Absolute | performed at [facility], [address] | K/uL | LABORATORY | | | | [address], | | | | | | [place] [address] | | | | + + + + + + + + | Specimen | + + | Blood | + + + + + + + | Performing | Address | City/State/Zipcode | Phone Number | | Organization | | | | + + + + + | [facility] | [address] | [place] [address] | [phone] | + + + + + Magnesium [...] | LABORATORY | | | | [address];[place] | | | | | | [address] | | | | + + + + + + + + | Specimen | + + | Blood | + + + + + + + | Performing | Address | City/State/Zipcode | Phone Number | | Organization | | | | + + + + + | [facility] | [address] | [place] [address] | [phone] | + + + + + Basic [...] | | | | | performed at [facility], [address] | | | | | | [facility], | | | | | | [place] [address] | | | | + + + + + + + + | Specimen | + + | Blood | + + + + + + + | Performing | Address | City/State/Zipcode | Phone Number | | Organization | | | | + + + + + | [facility] | [address] | [place] [address] | [phone] | + + + + + CBC [...] [place], | | | | | | [place] [address] | | | | + + + + + + + + | Specimen | + + | Blood | + + + + + + + | Performing | Address | City/State/Zipcode | Phone Number | | Organization | | | | + + + + + | [facility] | [address] | [place] [address] | [phone] | + + + + + ECHO [...] | Procedure Note | + + | [facility], [address] - 10/04/2019 12:10 PM PDT | | [...] [facility];[address] | | LABORATORY | | | | [address];[place] | | | | | | [address] | | | | + + + [...] [facility] | [address] | [place] [address] | [phone] | + + + + + Zeinabime [...] performed at [facility] | | | | | | [facility];[place], [place] | | | | | | [address] | | | | + + + + + + + + | Specimen | + + | Blood | + + + + + + + | Performing | Address | City/State/Zipcode | Phone Number | | Organization | | | | + + + + + | [facility] | [address] | [place] [address] | [phone] | + + + + + Uric [...] | | | | | [place] [address] | | | | + + + + + + + + | Specimen | + + | Blood | + + + + + + + | Performing | Address | City/State/Zipcode | Phone Number | | Organization | | | | + + + + + | [facility] | [address] | [place] [address] | [phone] | + + + + + Lipid [...] | | | Calculated | performed at [facility], [address] | | LABORATORY | | | | [address], | | | | | | [place] [address] | | | | + + + + + + + + | Specimen | + + | Blood | + + + + + + + | Performing | Address | City/State/Zipcode | Phone Number | | Organization | | | | + + + + + | [facility] | [address] | [place] [address] | [phone] | + + + + + Comprehensive [...] | | | | | performed at [facility], [address] | | | | | | [facility], | | | | | | [place] [address] | | | | + + + + + + + + | Specimen | + + | Blood | + + + + + + + | Performing | Address | City/State/Zipcode | Phone Number | | Organization | | | | + + + + + | [facility] | [address] | [place] [address] | [phone] | + + + + + CBC [...] | | | Absolute | performed at [facility], [address] | K/uL | LABORATORY | | | | [address], | | | | | | [place] [address] | | | | + + + + + + + + | Specimen | + + | Blood | + + + + + + + | Performing | Address | City/State/Zipcode | Phone Number | | Organization | | | | + + + + + | [facility] | [address] | [place] [address] | [phone] | + + + + + Coronavirus (COVID-19) NAAT (10/04/2019 12:49 AM PDT) + + + + + + | Component | Value | Ref Range | Performed | Pathologist | | | | | At | Signature | + + + + + + | SARS-CoV-2, | NEGATIVEComment: This | NEG | [facility] | | | NAAT | test [...] | | | | | | [address];[place], [place] | | | | | | [address] | | | | + + + [...] HOSPITAL LABORATORY | [address] | [place] [address] | [phone] | + + + + + ECG [...] | | | | XIANG HART MD ([id number]) | | | | | | on [...] | | [facility] | | | | [facility];[address] | | LABORATORY | | | | Blvd;[place] [address] | | | | + + + + + + + + | Specimen | + + | Blood | + + + + + + + | Performing | Address | City/State/Zipcode | Phone Number | | Organization | | | | + + + + + | [facility] | [address] | [place] [address] | [phone] | + + + + + Comprehensive [...] | >60Comment: GFR <60: | >60 | [facility] | | | GFR | CHRONIC [...] performed at [facility] | | | | | | [facility];[place], [place] | | | | | | [address] | | | | + + + + + + + + | Specimen | + + | Blood | + + + + + + + | Performing | Address | City/State/Zipcode | Phone Number | | Organization | | | | + + + + + | [facility] | [address] | [place] [address] | [phone] | + + + + + CBC [...] 0.06Comment: Testing | 0.00 - 0.10 | [facility] | | | Absolute | performed at [facility];[address] | [address] | | | | [address];[place], [place] | | | | | | [address] | | | | + + + + + + + + | Specimen | + + | Blood | + + + + + + + | Performing | Address | City/State/Zipcode | Phone Number | | Organization | | | | + + + + + | [facility] | [address] | [place] [address] | [phone] | + + + + + documented [...] | | | | | | Starting [facility] 10/12/19 at 1744 | | | [...] PRN, Hemorrhoidal | | | Pain, Starting [facility] 10/05/19 at 1227 | | + [...]
--- OUTSIDE RECORDS SUMMARY | 2019-11-18 09:18 | XMS ---
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 Care History Medical/Surgical 11/02/2019 [facility] - PATIENT HAS AN ESTABLISHING CARE APT WITH DR SUTTON 11/14/2019 @ 2:00PM- PATIENT WILL TRANSFER TO DR BAKER ONCE PHYSICIAN IS AT THE CLINIC. 10/30/2019 [facility] - W CONTACTED LISA- DE MECHANICAL PRESS OPERATOR- [phone]- TO SEE IF PATIENT IS ELIGIBLE FOR [facility] BENEF[facility] AND TO CONTACT PATIENT FOR FOLLOW UP WITH THE [facility]. - LISA STATED PATIENT IS ELIGIBLE FOR SERVICES AND WILL BE IN CONTACT WITH PATIENT FOR FOLLOW UP. 10/04/2019 [facility] \T\middot;\T\nbsp; PATIENT IS A -RECEIVES SERVICES THROUGH [facility] IN [place]. \T\middot;\T\nbsp; Location: [address], [place] [address]- E.D. VISIT COUNT (12 MO.) 6 [facility] TOTAL 6 NOTE: Visits indicate total known visits. ED/UCC VISIT TRACKING (12 MO.) 11/18/2019 09:16 [facility] [place] TYPE: Emergency COMPLAINT: - ABD PAIN 11/17/2019 23:53 [facility] [place] TYPE: Emergency [...] Care COMPLAINT: - GI BLEED DIAGNOSES: - long term care social worker (current) use of antithrombotics/antiplatelets - FPC (current) use of opiate analgesic - Other longwall shearer operator (current) drug therapy - Esophageal obstruction - FPC (current) use of opiate analgesic - Nicotine dependence, unspecified, uncomplicated - Unspecified chronic gastritis without bleeding - Nicotine dependence, unspecified, uncomplicated - Acute posthemorrhagic anemia - Diaphragmatic hernia without obstruction or gangrene - [facility]PC (current) use of aspirin - Other longwall shearer operator (current) drug therapy - Esophageal obstruction - Alcohol dependence, uncomplicated - [facility] (current) use of antithrombotics/antiplatelets - [facility]PC (current) use of aspirin - Alcohol dependence, uncomplicated - Acute posthemorrhagic anemia - Chronic or unspecified duodenal ulcer with hemorrhage - Chronic or unspecified duodenal ulcer with hemorrhage - Gastrointestinal hemorrhage, unspecified - Unspecified chronic gastritis without bleeding - Diaphragmatic hernia without obstruction or gangrene 10[facility]03[facility]2019 22:09 [facility] TYPE: Internal Medicine DIAGNOSES: - Peripheral vascular disease, unspecified - Cellulitis of right lower limb - pseudoaneurysm - Thrombosis due to vascular prosthetic devices, implants and g - Other acute postprocedural pain - Aneurysm of unspecified site [email or web address]
[2019-11-18] MEDS ORDERED: FUROSEMIDE20 MG PO (09:48)
[2019-11-18] MEDS ORDERED: CEPHALEXIN500 MG PO (09:48)
[2019-11-18] MEDS ORDERED: POTASSIUM CHLO10 ME2 PO (09:49)
--- NOTE | 2019-11-18 14:40 | NUR ---
Report recieved from Jordy TERRY in ED. Pt then brought to [facility] room by Laruen TERRY. Initial vitals were taken and assessment completed by this RN. Pt was able to transfer himself to the bed without difficulty. Pt alert and oriented x3. CASH GRAIN FARMER assisted the pt in a full body hibbaclense cleaning. Pt reports 0/10 pain, slight nausea relieved by alcohol swab sniff. Pt intake admission information completed and pre-procedure checklist completed printed and placed in chart. Pt has small open wound on his R face cheek, appearing dry and without s/sx of infection, but dark matter viewed inside it. Medications from pt home were given to pharmacy. SCDs placed. I.S. at bedside. Pt compliant with NPO orders. Pt left lying in bed, side rails up, bed in lowest position, call light within reach, pts eyes closed and breathing even and unlabored.
--- NOTE | 2019-11-18 16:15 | NUR ---
PATIENT TO FLOOR VIA STRETCHER, ABLE TO TRANSFER TO BED WITH NO PROBLEM. THIS BAIL BONDSMAN IN TO TAKE VITALS AND ASSIST PATIENT WITH PRE SURGICAL WIPES. TORSO AND ARMS CIPED, PATIENT AGREED HE WAS ABLE TO REACH LEGS AND GROIN, WILL CALL IF HE NEEDS ASSISTANCE. NON SKID SOCKS PLACED ON FEET, PATIENT IS AWARE HE IS NPO AT THIS TIME. HARRISON BAKER IN ROOM FOR ASSESSMENT, CALL LIGHT WITHIN REACH
--- NOTE | 2019-11-18 17:00 | NUR ---
Reassessment of pain and pt is reporting 8/10 pain in his abdomen and requesting pain meds. Dominique TERRY pulling pain meds per orders.
--- NOTE | 2019-11-18 17:45 | NUR ---
Emilia from OR arrived to transport pt to surgery. Pt reported pain level 3/10. IV pump confirmed that pt had recieved 43mls of LR fluid presurgery. SCDs on pt. Report was given to Emilia from this RN, including concerns for vascularity of lower extremities. ABX and new bag of LR hung and ready for OR, LR connected and running by gravity upon transport.
--- NOTE | 2019-11-18 18:34 | NUR ---
Pt admitted from ED this afternoon. Here for incarcerated hernia repair. Sent to surgery.
--- NOTE | 2019-11-18 20:37 | NUR ---
11/18/192036 Sanam Leo PATIENT IS SNORING ON ARRIVAL TO PACU. JAW LIFT PERFORMED AND SNORING STOPS - PATIENT IS EXCHANGING WELL - FOG SEEN IN MASK. ORAL AIRWAY IN PLACE.
--- NOTE | 2019-11-18 21:13 | NUR ---
returned from surgery, awake, alert and oriented, tolerating ice chips, no n/v, no c/o pain. CPOX inplace, scds,
--- NOTE | 2019-11-18 21:27 | NUR ---
pt is bk from pacu/or, got pt vitals, urinal in place, call light in place, bedside table in place, scds set, rn in rm for assesment
--- NOTE | 2019-11-18 22:07 | NUR ---
AWAKE, TOLERATING FULL LIQUIDS WELL, AND ICE CHIPS, NO N/V C/O MILD ABD DISCOMFORT, MEDICATED . WATCHING TV, CALL LIHGT AT BEDSIDE
--- NOTE | 2019-11-18 22:24 | NUR ---
PT VOIDED 200CC MEDIUM YELLOW URINE IN URINAL, NO C/O N/V OR PAIN. HELPED WITH REPOSITIONING. ON ROOM AIR, AUGUSTUS WITH NO DRAINAGE, R ADB DRESSING INTACT. SCDS, CPOX IN PLACE. IVF INFUSING.
--- NOTE | 2019-11-18 23:32 | NUR ---
on room air, eyes closed, no resp distress, ivf infusing w/o problems, 2 grzegorz with very scant amount of sanguineous drainage. scds and cpox
--- NOTE | 2019-11-19 00:22 | NUR ---
resting, no distress, on room air, eyes closed. ivf infusing, no s/sx pain, no n/v. call light and fluids at bedside
--- NOTE | 2019-11-19 01:54 | NUR ---
medicated with Toradol 15mg IV per abd discomfort. awake, watching tv, ivf infusing, vodied, tolerating fluids well. Isaak #1 drained 30cc sanguineous colored drainage, #2 drained 60cc serosanguineous drainage. site intact, R abd dressing intact. Pt coop, no requests fluids and call light at bedside
--- NOTE | 2019-11-19 02:43 | NUR ---
got pt a warm blanket, no further requests at this time
--- NOTE | 2019-11-19 04:32 | NUR ---
pt called, jesus bell, with rn asst, got pt cleaned up and on bsc, changed bed linens, pt is on bsc and will call when feels like done passing bm, call light in place, no further request at this time
--- NOTE | 2019-11-19 04:47 | NUR ---
got pt off bsc, pt is bk in bed, fresh water provided, bsc emptied and recorded,
--- NOTE | 2019-11-19 04:52 | NUR ---
pt had more semiliquid brown bm in bsc, skin care done, back to bed. Medicated with 2 [place] c/o abd pain . dressing intact, 2 Patrick tubes patent. tolerating full fluids juice and applesauce well. Coop, no s/sx ETOH Withdrawals. CIWA 2
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
--- NOTE | 2019-11-19 08:00 | NUR ---
pt resting in bed refuses up to chair stating he just wants to sleep. refuses full liquid breakfast stating he needs steak and eggs, "if I put liquid in I get liquid out, I need something real to eat" pt denies pain, or needs of. variety of food items offered pt repeats he is not hungry.
--- NOTE | 2019-11-19 09:39 | NUR ---
PATIENT RESTING IN BED. PATIENT DENIES PAIN. THIS RN ASKS PATIENT IF HE WOULD LIKE A MOTRIN TO STAY ON TOP OF PAIN. PATIENT STATES AGREEMENT TO THIS PLAN.
--- NOTE | 2019-11-19 10:15 | NUR ---
PATIENT RESTING IN BED WATCHING TV. MORNING ASSESSMENT COMPLETED. SCD'S PLACED. NO REQUESTS AT THIS TIME. CALL LIGHT WITHIN REACH. PATIENT STATES HE WOULD LIKE TO TAKE A NAP.
--- NOTE | 2019-11-19 11:55 | NUR ---
PT UP TO BATJROOM, HAD SMALL BM AND FRESH PULL-UP PROVIDED, #2 AUGUSTUS EMPTY AT THIS TIME. SEE FLOW SHEET. PT BACK TO THE BED AMBULATES WELL NO ASSISTANCE NEEDED. ATE SOME OF HIS LUNCH ABOUT 40%. PT STATES "I JUST HAVE NOT EATEN MUCH LATLEY" BUT HE IS TOLERATING FOOD SO FAR.
--- NOTE | 2019-11-19 11:55 | NUR ---
DR REZA WAS IN TO SEE PT APPROX 1000. QUESTIONS ASKED AND ANSWERED. DIET ADVANCED PER PT REQUEST, HE WAS CAUTIONED TO GO SLOW. PT IS INSTRUCTED TO AMBULATE SEVERAL TIMES THIS SHIFT. NO LIFTING OR PULLING. PT VERBALIZES UNDERSTANDING. MENU PROVIDED APPROPRIATE FOOD CHOICES DISCUSSED. PT PASSING STOOL THIS SHIFT. AGREES HE WILL AMBULATE THE [place] LATER. PT IS ABLE TO APPROPRIATELY DESCRIBE EMPTY OF AUGUSTUS DRAIN, DECLINES HANDS ON AT THIS TIME.
--- NOTE | 2019-11-19 13:26 | NUR ---
PT UP AND AMBULATES 3 LAPS SBA, WELL TOELRATED. RETURNS TO ROOM. PT DENIES PAIN, NAUSEA, OR OTHER DISCOMFORTS. AGREES HIS ABDOMEN IS TENDER BUT STATES IT IS NOT PAINFUL.
--- NOTE | 2019-11-19 13:50 | NUR ---
PERSONAL CARE ITEMS PROVIDED PT ENCOURAGED TO DO SELF CARES. HE DENIES NEED OF ASSIST.
--- NOTE | 2019-11-19 14:29 | NUR ---
PATIENT RESTING IN BED. PATIENT DENIES PAIN AND NAUSEA. JUAQUIN IN TO SEE PATIENT. GIVES VERBAL ORDER TO JEANETTE CORNEJO. LON REID'D PER MD ORDER. NO FURTHER REQUESTS AT THIS TIME.
--- NOTE | 2019-11-19 18:23 | NUR ---
PATIENT ASLEEP IN BED. RESPIRATIONS EVEN AND UNLABORED. CALL LIGHT WITHIN REACH.
--- NOTE | 2019-11-19 19:20 | NUR ---
SHIFT REPORT FROM NURSE TIFFANY AND NURSE EDWARD. PT LAYING IN BED, NO REQUESTS AT THIS TIME. CALL LIGHT WITHIN REACH
--- NOTE | 2019-11-19 19:48 | EKG ---
[facility] [address] [facility] [place], [place] [address] Signed Normal sinus rhythm Normal ECG When compared with ECG of 16-NOV-2016 11:43, QT has shortened Confirmed by ANDREW KAMARA MD ([id number]) on 11/19/2019 7:48:24 PM Electronically Signed By: ANDREW KAMARA MD 11/19/191947 PATIENT NAME: FROILANLARRY Electrocardiogram DATE OF : 56 PHYSICIAN: ANDREW KAMARA MD REPORT #: [id number] REPORT IS CONFIDENTIAL AND NOT TO BE RELEASED WITHOUT AUTHORIZATION
--- NOTE | 2019-11-19 20:30 | NUR ---
got pt vitals, whiteboard updated, reported to rn temp of 99.1, call light in place, no further request at this time
--- NOTE | 2019-11-19 21:38 | NUR ---
ASSESSMENT COMPLETE. VS AND I/O'S COMPLETE. PATIENT DENIES NEEDS FOR PRN MEDICATIONS. PT STATES HE WILL CALL FOR ANY NEEDS. CALL LIGHT IN REACH, BED IN LOW POSITION, LIGHTS OFF. IV WNL, AUGUSTUS DRAINS WNL. INCISION COVERED, SCANT AMOUNT OF DRAINAGE, OTHERWISE C/D/I. NO FURTHER NEEDS STATED AT THIS TIME.
--- NOTE | 2019-11-20 00:23 | NUR ---
provide pt fresh apple juice, no further requests at this time
--- NOTE | 2019-11-20 00:40 | NUR ---
ANSWERED CALL LIGHT, PT REPORTS 6/10 PAIN IN ABD AFTER COUGHING. PO PAIN RELIEVER GIVEN. URINALS EMPTIED, AUGUSTUS DRAINS CHECKED, WNL. TEMP RECHECKED: 98.5. NO FURTHER NEEDS AT THIS TIME.
--- NOTE | 2019-11-20 01:28 | NUR ---
CHECKED ON PATIENT, SLEEPING IN BED, LIGHTS OFF. BREATHING EVEN AND UNLABORED, CALL LIGHT IN REACH.
--- NOTE | 2019-11-20 03:20 | NUR ---
pt called for more apple juice, provided, tossed out old cup and recored intake, emptied and recorded pt's urinal, pt has call light in hand, no further requests from pt at this time
--- NOTE | 2019-11-20 04:44 | NUR ---
CHECKED ON PATIENT, SLEEPING IN BED, BREATHING EVEN AND UNLABORED. NO APPARENT NEEDS AT THIS TIME. CALL LIGHT WITHIN REACH
--- NOTE | 2019-11-20 06:15 | NUR ---
PATIENT DOING WELL THIS SHIFT, INDEPENDENT IN ROOM, UP TO BR TO VOID. REFUSED SCDS DURING NIGHT IN ORDER TO MAINTAIN INDEPENDENCE. A+Ox4, VSS. AUGUSTUS DRAINS WNL, INCISION COVERED, C/D/I. IV WNL, SALINE LOCKED. 1+ EDEMA IN BLE. DENIED PAIN OR NAUSEA THIS SHIFT. REINFORCE EDUCATION REGARDING DISCHARGE AND MANAGEMENT OF AUGUSTUS DRAINS/ABD INCISION.
--- NOTE | 2019-11-20 06:36 | NUR ---
took pt vitals, i&os are in, rn emptied urinals and jps, pt relaxed in bed at this time, no further requests, pt has call light
--- NOTE | 2019-11-20 07:45 | NUR ---
PATIENT RESTING IN BED. WHITE BOARD UPDATED. PATIENT'S HANDS AND FACE WASHED. ONE PERSON ASSISTING. PATIENT REFUSED TO TAKE A SHOWER TODAY. CALL LIGHT WITHIN REACH. NO OTHER NEEDS AT THIS TIME
--- NOTE | 2019-11-20 08:20 | NUR ---
REPORT RECEIVED. PT LYING IN BED AWAKE. DENIES NEEDS. CALL LIGHT IN REACH.
[2019-11-20] MEDS ORDERED: IBUPROFEN600 MG PO (09:02)
--- NOTE | 2019-11-20 09:06 | NUR ---
ROOUNDED WITH DR REZA. DISCHARGE PLAN DISCUSSED. AUGUSTUS DRAINS REMOVED BY DR. GUILLEN TOLERATED WELL.
--- NOTE | 2019-11-20 09:21 | NUR ---
PATIENT USING THE BATHROOM. PATIENT BACKS TO BED. VITAL SIGNS AND I&O DONE. CALL LIGHT WITHIN REACH. NO OTHER NEEDS AT THIS TIME
[2019-11-20] MEDS ORDERED: TYLENOL325 MG PO (09:55)
[2019-11-20] MEDS ORDERED: K-TAB10 MEQ PO (09:55)
--- NOTE | 2019-11-20 10:00 | NUR ---
Spoke with Jairo he is dressed and ready for discharge. States he still lives with his roommate and he will assist him with any needs. Pt states he has 3 steps into his mobile home, he denies issues with steps. Pt has his cane with him and will use. Pt denies further needs and is anxious to go home.
--- NOTE | 2019-11-20 10:31 | OR ---
[facility] [address] [place], [place] [address] Signed DATE OF OPERATION: 11/18/2019 SURGEON: Jozef You MD PREOPERATIVE DIAGNOSES: 1. Incarcerated right abdominal incisional hernia. 2. Ethanol abuse with Laennec's cirrhosis and ascites. 3. Peripheral vascular disease. POSTOPERATIVE DIAGNOSES: 1. Incarcerated right abdominal incisional hernia. 2. Ethanol abuse with Laennec's cirrhosis and ascites. 3. Peripheral vascular disease. PROCEDURE: Reduction and mesh repair of incisional hernia. ANESTHESIA: General endotracheal by Emerson Packer CRNA, in addition to tap block. INDICATIONS FOR PROCEDURE: This is a 59-year-old male with a history of ethanol abuse, Laennec's cirrhosis, chronic peripheral vascular disease and ongoing tobacco consumption, who presented with an incarcerated incisional hernia of his right lateral abdominal wall. Attempted reduction of the hernia in the ED under MAC sedation was unsuccessful and due to the concern about a closed loop obstruction of small bowel and persistent discomfort, he was scheduled for emergency operative management. FINDINGS AND DESCRIPTION OF PROCEDURE: The patient was maintained supine, pausing to confirm his identity, proposed procedure and safety checklist. General endotracheal anesthesia was induced, and the abdomen was widely prepared with chlorhexidine solution and draped. The sub-dermis surrounding the scar overlying the hernia was infiltrated with 1% lidocaine and an elliptical incision made to remove the prior cicatrix, developing tissue planes upon the hernia sac. The skin over the hernia was erythematous, glistening and within 2 - 3 mm of the dermis, indicative of potential erosion through skin. Electronically Signed By: JOZEF YOU MD 11/20/19 1031 PATIENT NAME: LARRY MCGOVERN OPERATIVE REPORT DATE OF : 56 REPORT #: [id number] PHYSICIAN: JOZEF YOU MD PCP: IAN SUTTON MD REPORT IS CONFIDENTIAL AND NOT TO BE RELEASED WITHOUT AUTHORIZATION [facility] [address] [place], [place] [address] Signed The hernia sac was isolated from the subcutaneous tissue circumferentially, noting the edges of the dehisced fascia retracted ~6 cm by palpation, and dissection could not extend beyond this point due to dense fibrosis. The hernia sac was therefore opened and ascitic fluid was released, examining the incarcerated loops of small bowel and noting viability without evidence of ischemic necrosis. There were adhesions that fused omentum to the hernia sac that were divided in order to facilitate reduction of the incarcerated viscera. The neck of the sac through the peritoneum was an estimated 2.5 cm in diameter and tight, precluding safe reduction of the incarcerated viscera. The neck was therefore incised an additional 2 cm that allowed full reduction of the intestinal loop and omentum. Palpation within the abdominal cavity and peritoneal surfaces revealed no additional lesions in the region. The peritoneum was therefore reapproximated with continuous 3-0 Vicryl to close the hernia defect. Undermining of the subcutaneous tissue upon the anterior rectus sheath and external oblique aponeurosis was performed, noting that the abdominal wall was thinned to no more than 5 mm in greatest thickness. For this reason, it was decided to correct this hernia with an onlay polypropylene mesh. It was also necessary to create a relaxing incision laterally in the external oblique fascia to permit apposition of the fascia without tension, achieving meticulous hemostasis with electrocautery. The fascia was thereafter reapproximated with interrupted [id number] 0 Prolene Sutures, avoiding tension on the suture line. To re-enforce the repair, polypropylene mesh was soaked in antibiotic solution, trimmed to size and fitted into the subcutaneous space as an onlay graft that extended 3 to 3.5 cm beyond the edges of the fascial closure circumferentially. The mesh was anchored to the subcutaneous pocket with 2-0 Prolene sutures, fixing the mesh to the anterior rectus sheath medially, the external oblique aponeurosis laterally and along the reconstructed fascial suture line with staggered 2-0 Prolene to re-enforce the fascial apposition and hopefully preclude recurrence of a hernia. Palpation revealed satisfactory closure with no tension. Next, drains were placed into the wound, utilizing a 10 mm flat Patrick drain in the subfascial area upon the repaired peritoneum to remove ascites and minimize any seroma that might ensue. A 7 mm drain was also placed subcutaneously upon the mesh, then both catheters were exteriorized separately Electronically Signed By: JOZEF YOU MD 11/20/19 1031 PATIENT NAME: LARRY MCGOVERN OPERATIVE REPORT DATE OF : 56 REPORT #: [id number] PHYSICIAN: JOZEF YOU MD PCP: IAN SUTTON MD REPORT IS CONFIDENTIAL AND NOT TO BE RELEASED WITHOUT AUTHORIZATION [facility] [address] [place] [id number] Signed through stab wounds in the lateral abdominal wall inferior to the skin incision. The subcutaneous tissue was reapproximated with interrupted 3-0 Vicryl while skin closure completed with tasha. The drains were connected to closed system suction and dressings were applied. The luggage liner next administered TAP blocks laterally before the patient was transported to the PACU in satisfactory condition. Sponge, instrument, and needle counts were correct; no intraoperative complications or adverse events were recognized; and no specimens were submitted for histology. EBL was 20 mL. Jozef You MD MWK/MODL /[id number] Copies: ~ Electronically Signed By: JOZEF YOU MD 11/20/19 1031 PATIENT NAME: LARRY MCGOVERN OPERATIVE REPORT DATE OF : 56 REPORT #: [id number] PHYSICIAN: JOZEF YOU MD PCP: IAN SUTTON MD REPORT IS CONFIDENTIAL AND NOT TO BE RELEASED WITHOUT AUTHORIZATION
--- NOTE | 2019-11-20 10:50 | NUR ---
DISCHARGE INSTRUCTIONS PROVIDED. INCISION C/D/I WIHT BRAYAN IN PLACE. NO REDNESS AND WELL APPROXIMATED. IV DC'D AND WNL. DC UNDERSTOOD.
--- NOTE | 2019-11-20 13:12 | NUR ---
PT SITTING IN CHAIR, ALERT, ORIENTED AND WAITING FOR DC. PT WILL BE GOING HOME FOLLOWING DC. PT IS FEELING MUCH BETTER, EXCITED TO GO. GAVE BLESSING
== END 2019-11-20 10:40 | disposition home or self-care (01) | DRG 355 ==
LOC: ED 09:15 → MS 15:16
PROVIDERS: ADMIT Surgery; ATTEND Surgery
PROC: 3E0T3BZ Introduction of Anesthetic Agent into Peripheral Nerves and Plexi, Percutaneous Approach (ICD-10-PCS; 2019-11-18)
PROC: 0WUF0JZ Supplement Abdominal Wall with Synthetic Substitute, Open Approach (ICD-10-PCS; principal; 2019-11-18 16:58)
DX: K43.0 Incisional hernia with obstruction, without gangrene (principal); G89.18 Other acute postprocedural pain; F17.200 Nicotine dependence, unspecified, uncomplicated; F10.10 Alcohol abuse, uncomplicated; I73.9 Peripheral vascular disease, unspecified; K70.31 Alcoholic cirrhosis of liver with ascites
CPT/HCPCS: 00832; 36415; 64488; 74250; 76942; 80053; 83605; 85025; 85610; 85730; 93005; 93010; 94760; 94762; A9270; C1781; C9803; J0690; J1100; J1170; J1200; J1885; J2001; J2270; J2370; J2405; J2704; J2765; J3010; J7121

== ENCOUNTER 2020-08-05 08:41 | Emergency (ER) | payer MEDICARE, OTHER ==
[~2020-08-05] VITALS: Ht 167.6 cm; Wt 58.1 kg
[~2020-08-05 08:41] MED LIST changes: -ATORVASTATIN CA40 MG PO; +FUROSEMIDE20 MG PO; +IBUPROFEN600 MG PO; +K-TAB10 MEQ PO; +POTASSIUM CHLO10 ME2 PO; +TYLENOL325 MG PO
[2020-08-05] MEDS ORDERED: ATORVASTATIN CA40 MG PO (09:04)
[2020-08-05] MEDS ORDERED: LISINOPRIL10 MG PO (09:04)
== END 2020-08-05 12:37 | disposition home or self-care (01) ==
LOC: ED 08:41
DX: K59.00 Constipation, unspecified (principal); E87.6 Hypokalemia; F17.200 Nicotine dependence, unspecified, uncomplicated; Z79.899 Other long term (current) drug therapy
CPT/HCPCS: 74018; 74177; 80053; 81001; 83690; 85025; 96375; 99285-25; J1885; J2270; J2405; J3475; J3480; J7030; Q9967

== ENCOUNTER 2021-01-16 08:35 | Day surgery (SDC) | payer MEDICARE, OTHER ==
[~2021-01-16] VITALS: Ht 170.2 cm; Wt 48.0 kg
[~2021-01-16 08:35] MED LIST changes: +ATORVASTATIN CA40 MG PO; +LISINOPRIL10 MG PO; +PLAVIX75 MG PO
--- NOTE | 2021-01-16 12:22 | NUR ---
01/16/21 1222 Sheets,Vibha 1209 PT ARRIVED TO PACU ON 4L VIA NC, VSS. PT ASLEEP AND RESP EVEN AND UNLABORED. PT NONAROUSABLE TO TACTILE STIMULI. 1220 PT WAKES AND O2 REMOVED. PT DENIES PAIN AND WARM AIR GIVEN PER REQUEST. VSS.
[2021-01-16] MEDS ORDERED: SUCRALFATE1 GM PO (13:01)
[2021-01-16] MEDS ORDERED: CHILD TYLENOL120 M2 PO (13:05)
--- NOTE | 2021-01-18 10:50 | OR ---
[facility] [address] [place], [place] [address] Signed DATE OF OPERATION: 01/16/2021 SURGEON: Gabe Diaz MD PREOPERATIVE DIAGNOSES: 1. Hypopharyngeal carcinoma, status post chemo radiation therapy. 2. Severe proximal odynophagia and difficulty of swallowing, weight loss. POSTOPERATIVE DIAGNOSES: 1. Hypopharyngeal carcinoma, status post chemo radiation therapy. 2. Severe proximal odynophagia and difficulty of swallowing, weight loss. PROCEDURES: 1. Esophagogastroduodenoscopy. 2. Percutaneous endoscopic gastrostomy tube placement. ANESTHESIA: Intravenous sedation propofol; Kendell Miller CRNA and local 10 mL of 1% lidocaine. INDICATION: This 61-year-old white man is patient of Ian Sutton and Dr. Ramos. He is referred for a PEG feeding tube if possible on the basis of poor swallowing following chemoradiation therapy for right hypopharyngeal carcinoma. It appears that there has been a good effect of the therapy; however, he does have significant odynophagia and poor ability to swallow and eat on that basis. He has certainly lost a considerable amount of weight through all of this. We have discussed the risks and benefits of a feeding tube approach and he strongly wishes to proceed with that if possible. An endoscopic approach is anticipated, though an open procedure might be necessary as he does have a long midline abdominal incision from prior vascular surgery. He understands the risks of bleeding, infection, and perforation related to upper endoscopy and PEG tube placement and wishes to proceed. FINDINGS: Patient is quite markedly cachectic and a thin abdominal wall was noted. Endoscopy did show friability and irritation of the hypopharynx particularly on the right side. The vocal cords appeared normal. The esophagus, stomach and duodenum were essentially normal. Has had a bit of a hiatal hernia, but not much really and placement of the tube was in the distal antrum. Tube was placed without complication showing good function. The marking on the tube in relation to the flange is at 3 cm. Flushing of the tube showed good function and no complications occurred so far as can be told. Electronically Signed By: GABE DIAZ MD 01/18/21 1050 PATIENT NAME: LARRY MCGOVERN OPERATIVE REPORT DATE OF : 56 REPORT #: [id number] PHYSICIAN: GABE DIAZ MD PCP: IAN SUTTON MD REPORT IS CONFIDENTIAL AND NOT TO BE RELEASED WITHOUT AUTHORIZATION [facility] [address] [place], [place] [address] Signed DESCRIPTION OF PROCEDURE: The patient was brought to the surgical endoscopy suite and placed in a supine position. He was given intravenous sedation with propofol infusional technique. Preoperative medication of Ancef had been given 2 g in total. The flexible upper endoscope was passed in the hypopharynx while patient was in the supine position with a bite block in place. Hypopharynx was friable and chronically inflamed. Vocal cords appeared normal. Scope was advanced in the esophagus without problem, passage down the esophagus showed to be no esophageal pathology including the GE junction. There was no stricture. The scope was passed in the stomach which was insufflated with air. Rugal folds were normal. The stomach appeared to have a transverse lie in configuration. The antrum appeared normal, pylorus was normal, scope was passed through into the duodenum, which was normal. The scope was withdrawn and retroflexed view undertaken showed no sign of large hiatal hernia proper. Transillumination of the abdominal wall was easily noted. Impression of the anterior abdominal wall just to the left of the midline showed a deep impression consistent with the stomach being in in continuity with the abdominal wall. It was deemed reasonable that a percutaneous endoscopic gastrostomy be performed rather than open gastrostomy. The space between the costal margins and xiphoid and upper midline incision was prepared with Betadine solution and draped sterilely. A 1% lidocaine was injected locally. A small transverse incision was made over the area of maximal light output from the scope with an #11 blade. Using the needle and obturator under direct visualization, the needle was passed through the abdominal wall using sterile technique. The obturator was removed and the flexible wire passed down the needle. A snare was used to grasp the wire and withdrawn through the mouth entirely removing the wire and the endoscope in continuity. The Bard kit PEG tube was passed over the wire and down the esophagus and ultimately onto the abdominal wall. Once it emerged from the abdominal wall, it was gently grasped and manipulated down the hypopharynx to the esophagus, GE junction and stomach. It was tightened up gently and the scope reintroduced and affirmed to the position of the jones of the gastrostomy tube device. It was able to be snugged up a bit more, the flange was applied to it as were the other attachments. The catheter was flushed with saline showing good function. A heavy nylon was passed around the collar of the bolster for the device securing it tightly. The bolster appeared to be most appropriately fixed at approximately 3 cm as visualized of the abdominal wall. Electronically Signed By: GABE DIAZ MD 01/18/21 1050 PATIENT NAME: LARRY MCGOVERN OPERATIVE REPORT DATE OF : 56 REPORT #: [id number] PHYSICIAN: GABE DIAZ MD PCP: IAN SUTTON MD REPORT IS CONFIDENTIAL AND NOT TO BE RELEASED WITHOUT AUTHORIZATION [facility] [address] [place], [place] [address] Signed Reinspection of the stomach and esophagus showed no sign of untoward trauma from passage of the PEG tube and the scope was then removed. Bacitracin gel was applied to the exit site of the device as was gauze dressing and two OpSites to secure the tube firmly. The patient was allowed to emerge from anesthesia and taken to the recovery room in good condition having suffered no complications. Sponge, needle, and instrument counts were reported as correct x3. MD SONAM Sapp/PRIYANKAL /[id number] cc: MD Deniz Bender MD, PH.D. Copies: IAN SUTTON DMD, JUNO ~ Electronically Signed By: GABE DIAZ MD 01/18/21 1050 PATIENT NAME: LARRY MCGOVERN OPERATIVE REPORT DATE OF : 56 REPORT #: [id number] PHYSICIAN: GABE DIAZ MD PCP: IAN SUTTON MD REPORT IS CONFIDENTIAL AND NOT TO BE RELEASED WITHOUT AUTHORIZATION
== END 2021-01-16 13:50 | disposition home or self-care (01) ==
LOC: DS 08:35
PROVIDERS: ATTEND Surgery
PROC: 0DH63UZ Insertion of Feeding Device into Stomach, Percutaneous Approach (ICD-10-PCS; principal; 2021-01-16 11:15)
DX: C13.1 Malignant neoplasm of aryepiglottic fold, hypopharyngeal aspect (principal); K44.9 Diaphragmatic hernia without obstruction or gangrene; I10 Essential (primary) hypertension; E78.00 Pure hypercholesterolemia, unspecified; R63.4 Abnormal weight loss; I73.9 Peripheral vascular disease, unspecified; F17.210 Nicotine dependence, cigarettes, uncomplicated; Z79.899 Other long term (current) drug therapy; Z79.02 Long term (current) use of antithrombotics/antiplatelets; Z79.1 Long term (current) use of non-steroidal anti-inflammatories (NSAID); Z68.20 Body mass index [BMI] 20.0-20.9, adult
CPT/HCPCS: J0690; J2001; J2704; J3010; J7121

== ENCOUNTER 2021-03-09 09:40 | Emergency (ER) | payer MEDICARE, OTHER ==
[~2021-03-09] VITALS: Ht 170.2 cm; Wt 47.6 kg
[~2021-03-09 09:40] MED LIST changes: +CHILD TYLENOL120 M2 PO
--- OUTSIDE RECORDS SUMMARY | 2021-03-09 09:42 | XMS ---
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 Care History Medical/Surgical 11/02/2019 [facility] - PATIENT HAS AN ESTABLISHING CARE APT WITH DR SUTTON 11/14/2019 @ 2:00PM- PATIENT WILL TRANSFER TO DR BAKER ONCE PHYSICIAN IS AT THE CLINIC. 10/30/2019 [facility] - W CONTACTED LISA- [place] PP[facility] COORDINATOR- [phone]- TO SEE IF PATIENT IS ELIGIBLE FOR [facility] BEN[facility] AND TO CONTACT PATIENT FOR [facility] WITH THE [facility]. - LISA STATED PATIENT IS ELIGIBLE FOR SERVICES AND WILL BE IN CONTACT WITH PATIENT FOR FOLLOW UP. 10/04/2019 [facility] \T\middot;\T\nbsp; PATIENT IS A -RECEIVES SERVICES THROUGH [facility] IN [place]. \T\middot;\T\nbsp; Location: [address], [place] [address]- E.D. VISIT COUNT (12 MO.) 2 [facility] TOTAL 2 NOTE: Visits indicate total known visits. ED/UCC VISIT TRACKING (12 MO.) 03/09/2021 09:40 [facility] [place] TYPE: Emergency COMPLAINT: - FALL 08/05/2020 08:42 [facility] [place] TYPE: Emergency COMPLAINT: - CONSTIPATION, VOMITING DIAGNOSES: - Nicotine dependence, unspecified, uncomplicated - Other detention (current) drug therapy - Constipation, unspecified - Hypokalemia INPATIENT VISIT TRACKING (12 MO.) No inpatient visits to display in this time frame [email or web address]
[2021-03-09] MEDS ORDERED: GABAPENTIN300 MG PO (09:48)
--- NOTE | 2021-03-09 16:32 | EKG ---
[facility] [address] [facility] [place], [place] [address] Signed Accelerated Junctional rhythm Septal infarct (cited on or before 14-JAN-2021) Prolonged QT Abnormal ECG When compared with ECG of 14-JAN-2021 15:31, Junctional rhythm has replaced Sinus rhythm QT has lengthened Confirmed by TALIB RIOS DO ([id number]) on 03/09/2021 4:32:40 PM Electronically Signed By: TALIB RIOS DO 03/09/21 1632 PATIENT NAME: FROILANLARRY Electrocardiogram DATE OF : 56 PHYSICIAN: TALIB RIOS DO REPORT #: [id number] REPORT IS CONFIDENTIAL AND NOT TO BE RELEASED WITHOUT AUTHORIZATION
== END 2021-03-09 16:00 | disposition short-term general hospital (02) ==
LOC: ED 09:40
DX: S72.141A Displaced intertrochanteric fracture of right femur, initial encounter for closed fracture (principal); E87.6 Hypokalemia; E87.1 Hypo-osmolality and hyponatremia; D69.6 Thrombocytopenia, unspecified; I10 Essential (primary) hypertension; E78.00 Pure hypercholesterolemia, unspecified; K70.31 Alcoholic cirrhosis of liver with ascites; F17.200 Nicotine dependence, unspecified, uncomplicated; Z79.899 Other long term (current) drug therapy; Z85.01 Personal history of malignant neoplasm of esophagus; Z20.822 Contact with and (suspected) exposure to COVID-19; W19.XXXA Unspecified fall, initial encounter
CPT/HCPCS: 71045; 73502; 80053; 84132; 84295; 85025; 85610; 93005; 93010; 96374; 96375; 96376; 99285-25; C9803; J1170; J2405; J7030; U0003

== ENCOUNTER 2021-06-01 03:46 | Inpatient (IN) | payer MEDICARE, OTHER ==
[~2021-06-01] VITALS: Ht 170.2 cm; Wt 48.0 kg
[~2021-06-01 03:46] MED LIST changes: +GABAPENTIN300 MG PO
--- OUTSIDE RECORDS SUMMARY | 2021-06-01 03:48 | XMS ---
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 Care History Medical/Surgical 11/02/2019 [facility] - PATIENT HAS AN ESTABLISHING CARE APT WITH DR SUTTON 11/14/2019 @ 2:00PM- PATIENT WILL TRANSFER TO DR BAKER ONCE PHYSICIAN IS AT THE CLINIC. 10/30/2019 [facility] - W CONTACTED LISA- [facility] REFINED SYRUP OPERATOR- [phone]- TO SEE IF PATIENT IS ELIGIBLE FOR [facility] BEN[facility] AND TO CONTACT PATIENT FOR FOLLOW UP WITH THE [facility]. - LISA STATED PATIENT IS ELIGIBLE FOR SERVICES AND WILL BE IN CONTACT WITH PATIENT FOR FOLLOW UP. 10/04/2019 [facility] \T\middot;\T\nbsp; PATIENT IS A -RECEIVES SERVICES THROUGH [facility] IN [facility]. \T\middot;\T\nbsp; Location: [address], [place] [address]- E.D. VISIT COUNT (12 MO.) 3 [facility] TOTAL 3 NOTE: Visits indicate total known visits. ED/UCC VISIT TRACKING (12 MO.) 06/01/2021 03:47 [facility] TYPE: Emergency COMPLAINT: - FALL 03/09/2021 09:40 [facility] TYPE: Emergency COMPLAINT: - FALL DIAGNOSES: - Essential (primary) hypertension - Other alf (current) drug therapy - Unspecified fall, initial encounter - Pain in right hip - Nicotine dependence, unspecified, uncomplicated - Pure hypercholesterolemia, unspecified - Thrombocytopenia, unspecified - Personal history of malignant neoplasm of esophagus - Hypo-osmolality and hyponatremia - Displaced intertrochanteric fracture of right femur, initial encounter for closed fracture - Hypokalemia - Alcoholic cirrhosis of liver with ascites 08/05/2020 08:42 [facility] TYPE: Emergency COMPLAINT: - CONSTIPATION, VOMITING DIAGNOSES: - Nicotine dependence, unspecified, uncomplicated - Other alf (current) drug therapy - Constipation, unspecified - Hypokalemia INPATIENT VISIT TRACKING (12 MO.) 03/09/2021 17:26 [facility] TYPE: Medical Surgical DIAGNOSES: - Unspecified cirrhosis of liver - Unspecified severe protein-calorie malnutrition - Malignant neoplasm of pharynx, unspecified - HIP FRACTURE - Fracture of unspecified part of neck of right femur, initial encounter for closed fracture [email or web address]
[2021-06-01] MEDS ORDERED: CYCLOBENZAPRINE10 MG PO (04:34)
--- NOTE | 2021-06-01 11:17 | NUR ---
New admit to the medical floor. Patient awake, alert to self and place, unsure of dates and a poor historian. Patient reports chronic back and right hip pain. Patient's bp noted to be elevated now and upon ED admit. IV kcl infusing. Patient oriented to room and call light. Bed alarm intact.
[2021-06-01] MEDS ORDERED: PENTOXIFYLLINE400 MG PO (11:33)
[2021-06-01] MEDS ORDERED: OXYCODONE HCL5 MG PO (11:33)
[2021-06-01] MEDS ORDERED: SUCRALFATE1 GM PO (11:36)
[2021-06-01] MEDS ORDERED: POTASSIUM CHLO20 ME2 PO (11:37)
[2021-06-01] MEDS ORDERED: LISINOPRIL20 MG PO (11:38)
--- NOTE | 2021-06-01 14:15 | NUR ---
PATIENT IN BED RESTING. VITALS AND I&O'S CHARTED. BLOOD PRESSURE HIGH. BLOOD PRESSURE TAKEN ON MACHINE IN ROOM WAS 214/116, BLOOD PRESSURE TAKEN MANUALLY WAS 200/108, RN NOTIFED. CALL LIGHT IN REACH. NO FURTHER NEEDS AT THIS TIME.
--- NOTE | 2021-06-01 14:45 | NUR ---
pt voided 200mls clear yellow urine in urine. while staff held urinal. pt is cooperative with hospital routine.
--- NOTE | 2021-06-01 16:01 | NUR ---
PT APPEARS TO BE SLEEPING AT THIS TIME. CALL LIGHT WITHIN REACH AT THIS TIME.
--- NOTE | 2021-06-01 17:51 | NUR ---
PATIENT IN BED RESTING WITH EYES CLOSED. VITALS AND I&O'S CHARTED. RN NOTIFIED ABOUT CHANGE IN BLOOD PRESSURE. PATIENT NOT REALLY WAKING UP ENOUGH TO FOLLOW COMMANDS, RN NOTIFED. CALL LIGHT IN REACH. BED ALARM ON.
--- NOTE | 2021-06-01 17:57 | NUR ---
pt contioues to sleep at this time, awaken when spoke to. Repositioned at this time, denies and refused to eat dinner at this time also. side rails x4 up and bed alarm on.
--- NOTE | 2021-06-01 19:14 | NUR ---
RECEIVED REPORT FROM JANELLE TERRY WHO ASSUMED CARE THIS AFTERNOON OF PATIENT WHO WAS ADMITTED FROM THE ER THIS MORNING. PT ON TELE #4 HAS RECEIVED IV POTASSIUM, PT CAN BE INCONTINENT. HAS BEEN ENCOURAGED TO DRINK ENSURE. SLEEPING IN BED AT THIS TIME.
--- NOTE | 2021-06-01 20:20 | NUR ---
IN TO GET VITALS AND CHECK ON PATIENT. TOOK BP AND WAS IN 80'S SYSTOLIC, RECHECKED AND IS 85/57. PT IS GETTING MAINTANENCE FLUIDS AT CONTROLLED RATE BUT HAS NOR BEEN DRINKING MUCH PO FLUID, STILL FULL FROM CHANGE OF SHIFT.
--- NOTE | 2021-06-01 21:10 | NUR ---
IN ROOM TO RECHECK BP AND WAKE PATIENT UP TO TAKE HIS GABAPENTIN. PT'S MOUTH IS REALLY DRY IT TOOK MULTIPLE ATTEMPTS TO GET PT TO SUCK SOME ENSUSRE JUICE BUT MANAGED TO GET HIS GABABPENTIN GUMMED THEN SWALLOWED. PT WILL NOT TAKE BIG ENOUGH SIPS. BP IS STILL 85 SYSTOLIC.
--- NOTE | 2021-06-01 21:20 | NUR ---
PT ASSESSMENT COMPLETE. NS 500ML INFUSING PER VERBAL ORDER FROM DR KAMARA WHEN I CALLED HER. PT IS DRY NO URINE NOTED HAD HELD URINAL FOR PT TO VOID EARLIER BUT COULDN'T.
--- NOTE | 2021-06-01 21:22 | NUR ---
CALLED DR KAMARA ABOUT THIS PATIENT'S BP TREND DOWN. DISCUSSED THAT PATIENT WAS GIVEN A DOSE OF LISINORIL FOR AN EARLIER HIGH BP. REPORTED TO HER PT ISNT AWAKE AND ALERT AENOUGH TO TAKE ENOUGH PO FLIUDS ONLY A FEW SIPS BUT NOT MAKING ANY GREAT EFFORT AND DECREASED URINE OUTPUT. VERBAL ORDERS FOR 500 ML NORMAL SALINE OVER 1 HR IN ADDITION TO MAINTANENCE FLUIDS.
--- NOTE | 2021-06-01 23:00 | NUR ---
MD PLACED ORDERS IN FOR IV POTASSIUM, 10 meq PER BAG, X 3. FIRST BAG STARTED, ADDED 10 MG (1ML) 1% LIDOCAINE TO BAG. PT IS ASLEEP, BARELY STIRS WHEN i AM IN ROOM SPEAKING WITH HIM BUT WILL MOVES HIS ARMS AND HANDS AND TURN SIDES IN SLEEP.
--- NOTE | 2021-06-02 00:06 | NUR ---
1ST IV BAG OF POTASSIUM COMPLETE, 2ND BAG STARTED. PT HAS NOT COMPLAINED OF ANY PAIN WITH INFUSION, NO REDNESS OR SWELLING NOTED TO SITE, PT STILL APPEARS VERY GROGGY. RECHECKED VITALS, BP IS UP TO 98/52. PT HAS VOIDED ABOUT 125 ML URINE IN URINAL WITH THIS RN ASSISTING.
--- NOTE | 2021-06-02 02:05 | NUR ---
3rd bag of IV potassium 10 MEQ complete. patient is continuing to sleep, eyes closed, visualized rise and fall of chest. pt stirs when talked to and touched but completely wake up to see if he needs to void.
--- NOTE | 2021-06-02 04:31 | NUR ---
in room to check on patient, called out to pt and shook his arm, he stirs and opens eyes. pt asked if he needs to void, shakes his head "no" and tries to go back to sleep. looked at patient's bottom and linen no signs of pt having been incontinent. attempted to have pt try voiding in urinal pt is not having any of it. obtained vitals.
--- NOTE | 2021-06-02 04:48 | NUR ---
PT ASSESSMENT COMPLETED. PT CONTINUNG TO SLEEP AND NOT PARTICIPATING IN ASSESMENT WHEN ASKED TO DO CERTIAN THINGS OR WHEN ASKED QUESTIONS. AATTEMPTED TO GET PT TO SWALLOW SOME WATER WILL ONLY TAKE A FEW SIPS AND SHAKE HEAD AND TURN AWAY.
--- NOTE | 2021-06-02 05:52 | NUR ---
labor economics professor x 2 in room to draw labs. pt cooperative and more awake, is able to answer his name when they ask for his identification.
--- NOTE | 2021-06-02 06:54 | NUR ---
PHONED, NOTIFIED OF CRITICAL POTASSIUM VALUE. TELEPHONE ORDER TO HOLD MORNING LISINOPRIL REPEATED BACK. PRIMARY RN UPDATED.
--- NOTE | 2021-06-02 07:40 | NUR ---
REPORT RECIEVED FROM NIGHT RN. PT RESTING IN BED WITH EYES CLOSED, CALL LIGHT IN REACH, BED ALARM ON.
--- NOTE | 2021-06-02 09:28 | NUR ---
RN IN ROOM TO ADMINISTER SCHEDULED MEDS. PT DISOREIENTED TO PLACE AND TIME. STATES HE IS IN [facility] OR [facility] AND THE YEAR IS 2001 - REORIENTED - PT UNSURE HOW HE GO TO [place]. PT SHOWED SOME INTEREST IN BREAKFAST EATING 10%. PT RATES PAIN IS 10/10 IN LEGS AND HIPS. PRN PAIN MEDICATION ADMINISTERED. PT REPOSISTIONED TO EDGE OF BED WITH ASSISSTANCE TO USE URINAL. SIGNIFICANT DELAY IN INITIATING STREAM. UNABLE TO PRODUCE URINE AT THIS TIME. IV SALINE LOCKED, FLUSHED WELL WITHOUT PAIN. PT WISHES TO AMBULATE BUT WEAK IN LOWER EXTREMETIES - PT EVAL COULD BE BENEFICIAL FOR UNDERSTANDING OF BASELINE AND CASE MANAGMENT PLACEMENT. PIVOT TRANSFER TO CHAIR REQUIRED FULL ASSIST BY 2 RNS. BED LINENS CHANGED.
--- NOTE | 2021-06-02 13:52 | NUR ---
Rounded on patient who is sitting up to chair, urinal on floor, patient exposed and asleep in chair. Opens eyes with this RN entry and states he was "just about to use that thing", resituated with urinal, will continue to reorient
--- NOTE | 2021-06-02 13:59 | NUR ---
PT UP IN CHAIR, VITALS DONE, HARRISON CLEANING IN ROOM TO HELP WITH VITALS. NO OTHER NEEDS AND HIS CALL LIGHT IS IN HIS LAP.
--- NOTE | 2021-06-02 14:17 | NUR ---
PT SITTING IN CHAIR, RESPONDED APPROPRIATELY TO MY EARLY QUESTIONS. PT DID SAY HE WASN'T HUNGRY. SAID HE DOESN'T EAT UNTIL 4 PM. SHARED WITH HARRISON RODRIGUEZ. PT SAID HE REMEMBERS ME FROM [facility]-CLEARLY NOT SURE WHERE HE IS. VISITED A MOMENT WITH PT. HE REACHED OUT TO SHAKE MY HAND, GAVE ENCOURAGEMENT, WILL FOLLOW NEEDED
--- NOTE | 2021-06-02 14:42 | NUR ---
Rounded on patient who is resting in chair removing coban from IV site. Pt confused to time/date/situation, attempted to reorient and loosely wrapped to protect IV site. Call light in reach, watching tv.
--- NOTE | 2021-06-02 14:48 | NUR ---
MED REC COMPLETE. PT REPORTS NO LONGER TAKING CARAFATE DUE TO HASSLE OF DISSOLVING TABLETS. IF CARAFATE REQUIRED, SUGGEST ORDERING SUSPENSION.
--- NOTE | 2021-06-02 15:44 | NUR ---
Pt c/o pain to buttocks/back, transferred to bed with 2PA. pt had incontinent stool and void, maddie care complete. Pt states "more comfortable" in bed, blankets given, call light in reach.
--- NOTE | 2021-06-02 16:00 | NUR ---
Attempted to see this pt and he is sleeping. Will see tomorrow.
--- NOTE | 2021-06-02 16:16 | NUR ---
RN IN ROOM TO ASSESS PT AND ADMINISTER SCHEDULED MEDS. PT RATES HIS PAIN A 9/10. PRN PAIN MEDICATION FOR THIS. PT ALSO PROVIDED ENSURE DRINK WITH ICE CREAM MIXED IN - PT ENJOYED THIS. PT CONTINUES TO C/O FEELING OF NEEDING TO URINATE BUT UNABLE TO INITIATE STREAM WHEN PROVIDED THE URINAL. WILL CONTINUE TO MONITOR OUTPUT. CALL LIGHT IN REACH. DENIES FURTHER NEEDS.
--- NOTE | 2021-06-02 18:06 | NUR ---
PATIENT IN BED WATCHING TV AND WANTING TO CALL HIS FRIEND ON THE PHONE. VITALS AND I&O'S CHARTED. CALL LIGHT IN REACH. BED ALARM ON. NO FURTHER NEEDS AT THIS TIME.
--- NOTE | 2021-06-02 20:01 | NUR ---
REPORT RECEIVED FROM DAY SHIFT RN. PT LYING IN BED RESTING WITH EYES CLOSED. RESPIRATIONS EVEN. CALL LIGHT IN REACH. BED ALARM FOR SAFETY.
--- NOTE | 2021-06-02 21:40 | NUR ---
PT AWAKE IN BED. REPORTS RLE PAIN AND BEING UNABLE TO VOID. BLADDER SCAN >[address] KAMARA NOTIFIED. ORDERS RECEIVED TO PLACE JULIEN AND LEAVE FOR THE NIGHT. VERIFIED WITH READ BACK METHOD.
--- NOTE | 2021-06-02 22:30 | NUR ---
V/S AND I&O'S COMPLETED AND RECORDED. 2 PA. CLEANED AND CHANGED PATIENT'S GOWN CHUX AND ATTENDS. PATIENT IS INCONTINENT URINE AND BOWEL MOVEMENT. BLADDER SCANNED SHOWED 900+ URINE. HARRISON CHOE AND STUDENT NURSE AL WERE IN THE ROOM.
--- NOTE | 2021-06-02 23:00 | NUR ---
JULIEN PLACED BY STUDENT NURSE AL PER ORDER WITH IMMEDIATE RETURN OF 750 ML YELLOW URINE. STERILE TECHNIQUE MAINTAINED. PT KIMMY WELL. EVENING ASSESSMENT COMPLETE. SCHEDULED MEDS ADMIN PER EMAR. PRN FOR PAIN ADMIN FOR 710 RLE PAIN. PT ORIENTED TO SELF. TELE #4. HR 80'S. WARM BLANKET PROVIDED. 2PA TO REPOSITION IN BED. PT DENIES QUESTIONS OR CONCERNS. CALL LIGHT IN REACH. BED ALARM FOR SAFETY.
--- NOTE | 2021-06-03 01:07 | NUR ---
PT RESTING IN BED WITH EYES CLOSED. RESPIRATIONS EVEN. CALL LIGHT IN REACH. BED ALARM FOR SAFETY.
--- NOTE | 2021-06-03 03:20 | NUR ---
PT RESTING IN BED WITH EYES CLOSED. RESPIRATIONS EVEN. SpO2 93% ON RA. HR 80'S. PT DENIES PAIN AT THIS TIME. ASSISTED TO REPOSITION. JULIEN PATENT WITH YELLOW URINE. DENIES NEEDS AT THIS TIME. CALL LIGHT IN REACH. BED ALARM FOR SAFETY.
--- NOTE | 2021-06-03 06:17 | NUR ---
VS AND I&O COMPLETE. PT REPORTS HE IS RESTING WELL. AGREES THAT HE IS COMFORTABLE AT THIS TIME. DENIES NEEDS. BED ALARM FOR SAFETY.
--- NOTE | 2021-06-03 09:00 | NUR ---
Spoke with Jairo. He states he rents a room from [facility]. He has a cane. He is using a walker in the hospital and is a two person assist. He has a peg tube, but does not use. States he has poor appetite and had difficulty swallowing following chemo and radiation. Swallowing is better now, but appetite is poor. He is a and served in [place] He did not serve during war time and is not service connected. He declines placement to a SNF or assisted living. Pt plans on dc to home. I will check with [facility] to see if pt qualifies for detention medicaid cg.
--- NOTE | 2021-06-03 09:16 | NUR ---
RN IN ROOM TO ADMINISTER SCHEDULED MEDS. PT SITTING ELEVATED IN BED EATING BREAKFAST. ORIENTED X 3. PT VERBAL WITH STAFF REGARDING DISLIKE OF BREAKFAST TRAY. PT APPEARS TO BE MORE CLEAR MENTALLY THIS MORNING. PT RATES PAIN "ANNOYING" - NO NUMBER PROVIDED. IV SITE RE-DRESSED - SOME MOISTURE NOTED AND IV PUMP FREQUENTLY ALARMING DISTAL OCCLUSION. FLUSHED WELL BEFORE INFUSION BEGAN. WILL CONTINUE TO ASSESS. BED ALARM ON. CALL LIGHT IN REACH.
--- NOTE | 2021-06-03 10:16 | NUR ---
PATIENT IN BED WATCHING TV. VITALS AND I&O'S CHARTED. CALL LIGHT IN REACH. BED ALARM ON. NO FURTHER NEEDS AT THIS TIME.
--- NOTE | 2021-06-03 11:21 | NUR ---
RN IN ROOM TO ASSESS PT. PT REQUESTS PRN PAIN MEDS FOR 10/10 PAIN - WANTS TO WORK WITH OT LATER AFTER MEDS. PT SITTING UP IN BED WATCHING TV. ORIENTED AND APPROPRIATE. ASSESSMENT AND VS WNL. JULIEN IN PLACE AND DRAINING WELL. CALL LIGHT IN REACH.
--- NOTE | 2021-06-03 13:00 | NUR ---
Called and spoke with Nimco Boyce at [facility]. Gave update on pt. She will call and complete financial evaluation. They are now seeing pts in their homes, he would not recieve an function eval until he returns home.
--- NOTE | 2021-06-03 13:48 | NUR ---
ENSURE MILKSHAKE PROVIDED TO PT TO HELP SUPPLEMENT LUNCH - PT WATCHING TV AND USING REMOTE TO NAVIGATE CHANNELS INDEPENDENTLY.
--- NOTE | 2021-06-03 13:57 | NUR ---
PATIENT SITTING UP IN BED WATCHING TV. VITALS AND I&O'S CHARTED. FRESH WATER GIVEN. BED ALARM ON. CALL LIGHT IN REACH. NO FURTHER NEEDS AT THIS TIME.
--- NOTE | 2021-06-03 14:20 | NUR ---
PT SITTING UP IN BED, JUST FINISHING UP MEAL. PT HAD EATEN ABOUT HALF, SAID IT WAS OK. HE SEEMS ALERT AND ORIENTED-MENTIONED DTHAT WE SHOULD GO FISHING! GAVE BLESSING AND WILL FOLLOW NEEDED
--- NOTE | 2021-06-03 14:23 | NUR ---
PT SITTING ON EDGE OF BED WORKING WITH PT - APPEARS ORIENTED AND IN GOOD SPIRITS.
--- NOTE | 2021-06-03 15:33 | NUR ---
FOCUSED ASSESSMENT COMPLETE. PT ALERT AND ORIENTED AND COOPERATIVE WITH CARE. PT GOWN AND BEDDING CHANGED AFTER PT SPILLED COFFEE ON LAP. ABLE TO ASSIST STAFF WITH TRANSFER TO SIDE OF BED AND STAND WITH WALKER. BACK TO BED WITH CALL LIGHTIN REACH.
--- NOTE | 2021-06-03 16:37 | NUR ---
Spoke with pt, he did receive a call from Nimco and they will follow up with him when he goes home.
--- NOTE | 2021-06-03 16:59 | NUR ---
PT RESTING IN BED WITH EYES CLOSED, RR EVEN AND UNLABORED. CALL LIGHT IN REACH.
--- NOTE | 2021-06-03 18:39 | NUR ---
PT RESTING IN BED WATCHING TV. VS AND I/O WNL. PATIENT ORIENTED AND DENIES NEEDS AT THIS TIME. CALL LIGHT IN REACH.
--- NOTE | 2021-06-03 19:19 | NUR ---
IN ROOM FOR REPORT, PT IS RESTING WITH EYES CLOSED, RR IS EVEN AND UNLABORED. CALL LIGHT IS CLOSE.
--- NOTE | 2021-06-03 21:05 | NUR ---
PT IS RESTING WITH EYES CLOSED, RR IS EVEN AND UNLABORED. CALL LIGHT IS CLOSE.
--- NOTE | 2021-06-03 23:15 | NUR ---
ADMINISTERED MEDICATIONS AND COMPLETED ASSESSMENT. PT DENIES PAIN AT THIS TIME. WITH REPOSITIONING PT IN BED HE DID MOAN WITH MOVEMENT OF HIS R LEG. HEEL PROTECTORS IN PLACE AND PILLOW NEXT TO HIS R LEG TO KEEP IT OFF RAILING. PT DENIES COUGH BUT THIS RN DID HEAR SOME INTERMITTENT COUGHING. JULIEN CATH IN PLACE AND DRAINING WELL, ATTENDS ARE CLEAN. PT HAS NO SIGNS OF ETOH WITHDRAWAL. REMOVED TELE PER DR'S ORDERS. VS AND I&O'S ENTERED. PT DENIES FURTHER NEEDS. CALL LIGHT IS CLOSE.
--- NOTE | 2021-06-04 01:23 | NUR ---
PT IS RESTING WITH EYES CLOSED, RR IS EVEN AND UNLABORED. CALL LIGHT IS CLOSE.
--- NOTE | 2021-06-04 03:38 | NUR ---
PT IS RESTING WITH EYES CLOSED, RR IS EVEN AND UNLABORED. CALL LIGHT IS CLOSE.
--- NOTE | 2021-06-04 05:13 | NUR ---
PT IS RESTING WITH EYES CLOSED, RR IS EVEN AND UNLABORED. CALL LIGHT IS CLOSE.
--- NOTE | 2021-06-04 05:45 | NUR ---
PT IS AWAKE IN BED, VS & I&O'S ENTERED. 300MLS OF URINE EMPTIED FROM JULIEN CATH. PT DENIES PAIN AT THIS TIME. FRESH ICEWATER PROVIDED. CALL LIGHT IS CLOSE.
--- NOTE | 2021-06-04 07:35 | NUR ---
Patient is sleeping, bedside shift report completed at the patient's door. He appears to be in no acute distress at this time. Respiration at 18
--- NOTE | 2021-06-04 08:35 | NUR ---
Patient continues to rest, appears to be in no acute distress, respiration at 20
--- NOTE | 2021-06-04 09:41 | NUR ---
Breakfast set up for the patient, AM assessment and medications completed. IV flushed. Pain medication given as well. Updated the patient on the plan of care also. Patient verbalized the only really thing he wants to do today is to find his wallet and cellphone today, which he says he brought into the hospital.
--- NOTE | 2021-06-04 11:14 | NUR ---
PATIENT UP TO BATHROOM FOR BM. PATIENT WAS ALSO INCONTINENT OF STOOL IN BRIEF. PATIENT CLEANED UP AND NEW GOWN PROVIDED. LINEN CHANGED WARM BLANKET PROVIDED. PATIENT REFUSED TO SIT UP IN CHAIR AND STATES "I JUST WANT A DAMN BEER." JULIEN EMPTIED, CALL LIGHT IN EASY REACH
--- NOTE | 2021-06-04 12:40 | NUR ---
Patient has no needs at this time, HOB 45 degrees and he is eating lunch.
--- NOTE | 2021-06-04 15:02 | NUR ---
IV fluids started, 1500 medication given. SCDs placed, assessment completed
--- NOTE | 2021-06-04 18:45 | NUR ---
Notified MD of increased BP, advised to continue to monitor at this time with him having no compliants, denying pain or headaches. He is on Hypertonic Sodium IVF at this time, this potentially could be in play.
--- NOTE | 2021-06-04 19:52 | NUR ---
IN ROOM FOR REPORT, PT IS RESTING IN BED. HIS GOWN IS PRETTY SOAKED FROM IV LEAKING. IT WAS INFUSING 3% NS AT 25MLS PER HOUR. WILL CALL DR CALERO.
--- NOTE | 2021-06-04 20:02 | NUR ---
SPOKE WITH DR CALERO ABOUT PT'S LEAKING IV, HE SAID TO GO AHEAD AND DRAW THE LABS NOW AND HE WILL REASSESS. DO NOT START THE 3% NS AT THIS TIME. NO FURTHER ORDERS RECEIVED.
--- NOTE | 2021-06-04 20:38 | NUR ---
COMPLETED ASSESSMENT, HARRISON MARLEY STAYED TO TRY TO START IV. PT WAS POKED 4 TIME WITHOUT SUCCESS. CALLED [employer] SYSTEMS PROGRAMMER TO TRY WITH US MACHINE. PT REPORTS PAIN 10/10 ADMINISTERED 10MG PO OXYCODONE AND MELATONIN WITH SCHEDULED MED. VS AND I&O ENTERED. LAB ON WAY TO GET BLOOD DRAWN. PT DENIES FURTHER NEEDS. CALL LIGHT IS CLSOE.
--- NOTE | 2021-06-04 21:51 | NUR ---
IN ROOM TO RESTART 3%NS AT CHANGED RATE OF 30 MLS/HR PER DR CALERO'S NEW ORDERS. PT IS RESTING WITH EYES CLOSED, RR IS EVEN AND UNLABORED. CALL LIGHT IS CLOSE.
--- NOTE | 2021-06-04 23:52 | NUR ---
PT IS RESTING WITH EYES CLOSED, RR IS EVEN AND UNLABORED. CALL LIGHT IS CLOSE.
--- NOTE | 2021-06-05 01:04 | NUR ---
PT IS RESTING WITH EYES CLOSED, RR IS EVEN AND UNLABORED. CALL LIGHT IS CLOSE.
--- NOTE | 2021-06-05 03:17 | NUR ---
PT IS RESTING WITH EYES CLOSED, RR IS EVEN AND UNLABORED. CALL LIGHT IS CLOSE. IV IS INFUSING FINE.
--- NOTE | 2021-06-05 05:35 | NUR ---
IN ROOM TO STOP IV FLUIDS PER DR'S ORDERS. IV IS FLUSHED AND SL.
--- NOTE | 2021-06-05 05:53 | NUR ---
PT IS AWAKE IN BED. CHIEF RISK OFFICER IN ROOM TRYING FOR LAB DRAW. PT REPORTS PAIN AT 8/10 AT THIS TIME. ADMINISTERED 10MG PO OXYCODONE. FRESH ICEWATER PROVIDED AND PT DENIES FURTHER NEEDS AT THIS TIME. CALL LIGHT IS CLOSE.
--- NOTE | 2021-06-05 12:14 | NUR ---
Received a call from Nimco at [facility]. She is following up to see when pt will dc and they can complete assessment in the home for possibility of in home cg. Updated per 929 report pt will dc tomorrow.
--- NOTE | 2021-06-05 13:15 | NUR ---
aDMIN oXYCODONE 10MG PO FOR REPORTS OF HIP/BACK PAIN.
--- NOTE | 2021-06-05 13:43 | NUR ---
PATIENT SITTING UP IN BED, VITALS AND I&OS CHARTED. JULIEN EMPTIED. PATIENT C/O OF BEING VERY PAINFUL, STATES "HIS NURSE KNOWS" CALL LIGHT IN EASY REACH. NO OTHER NEEDS AT THIS TIME
--- NOTE | 2021-06-05 15:07 | NUR ---
Tylenol 650mg po admin for head, back and hip pain.
--- NOTE | 2021-06-05 15:54 | NUR ---
Patient sitting up in bed watching tv, no acute distress. Patient reports he still has a headache. Bp retaken; 167/73, p 89. Patient denies needs at this time. Ice pack provided. Call light within reach.
--- NOTE | 2021-06-05 16:00 | NUR ---
Spoke with Jairo. He plans on dc tomorrow. His roommate with drive him home. He denies needs. He spoke with Nimco Boyce and is aware [facility] will follow up with him next week.
--- NOTE | 2021-06-05 19:57 | NUR ---
PT ALERT AND WANTING UPDATE FOR PLAN TO DISCHARGE. STATES HE WAS HOPING TO "SMOKE A BOWL TONIGHT".
--- NOTE | 2021-06-05 22:46 | NUR ---
pt CALLING OUT. IN ROOM TO ASSIST. pt PULLING ON JULIEN, REMINDED pt WHAT THE JULIEN CATHETER WAS. pt SHOUTED "I KNOW WHAT IT IS! I NEED TO GO HOME!" ASKED pt ORIENTATION QUESTIONS, pt ORIENTED TO SELF, ABLE TO RECITE ADDRESS. pt ORIENTED TO BEING IN THE HOSPITAL, THOUGHT HE HAD BEEN BROUGHT TODAY. pt ABLE TO TELL ME THE MONTH AND THE DAY OF THE WEEK. pt STATED THAT HE NEEDED TO GO HOME TO TAKE CARE OF HIS DOG. DISCUSSED THAT ACCORDING TO THE CHART IT LOOKED LIKE HE WOULD GO HOME TOMORROW AND THAT HIS FRIEND WOULD BE PICKING HIM UP. pt INSISTED HE NEEDED TO GO HOME. TALKED TO PRIMARY RN AND CHARGE. CALLED DR CALERO AND EXPLAINED THE SITUATION. TALKED TO pt VIA PHONE. REQUESTED THAT THIS RN CALL THE pt's FRIEND, ROSE. THE pt CALLED ROSE ON HIS CELLPHONE. ROSE ASSURED pt THAT HE HAD BEEN IN THE HOSPITAL A COUPLE DAYS. pt HUNG UP THE PHONE AND STATED THAT HE WOULD STAY THE NIGHT. PROVIDED FRESH ICE WATER. CALL LIGHT WITHIN REACH. BED ALARM ON. DR CALERO UPDATED ON pt DECISION. PRIMARY RN UPDATED.
--- NOTE | 2021-06-06 02:49 | NUR ---
pt will occassionally start pulling at lang and state that he "is getting out of here". Pt will agree to stay after talking to him about his condition. He recently stated that he wants to go home to have a beer.
--- NOTE | 2021-06-06 06:56 | NUR ---
pt SET OFF BED ALARM. pt GETTING OUT OF BED, IN TO ASSIST. pt STATED "I'M GOING HOME" TALKED ABOUT THE RISKS OF LEAVING AND ENCOURAGED HIM TO STAY. pt STATED "I'M GOING NOW" DC'D IV, PRESSURE DRESSING. pt DRESSED SELF. CALLED DR CALERO, DR LALIT JULIEN BE PULLED, PULLED PER ORDERS. pt SIGNED AMA FORM. pt CALLED FOR A RIDE HOME.
--- NOTE | 2021-06-06 07:03 | NUR ---
GISSEL TERRY IN ROOM WITH PT. PT TELLS HER HE IS LEAVING AMA. HAD PT SIGN THE AMA FORM AND REVIEWED IT WITH HIM. PT HAS CALLED HIS ROOMMATE FOR A RIDE. GISSEL TERRY IS IN ROOM ASSISTING PT TO GET READY TO LEAVE.
--- NOTE | 2021-06-06 07:19 | NUR ---
pt WHEELED FROM THE BUILDING, MET BY FRIEND ROSE.
[2021-06-06] MEDS ORDERED: CARVEDILOL6.25 MG PO (09:23)
[2021-06-06] MEDS ORDERED: UROXATRAL10 MG PO (09:24)
== END 2021-06-06 07:19 | disposition left against medical advice (07) | DRG 641 ==
LOC: ED 03:46 → MS 09:11
PROVIDERS: ADMIT Internal Medicine; ATTEND Internal Medicine
DX: E87.1 Hypo-osmolality and hyponatremia (principal); Z20.822 Contact with and (suspected) exposure to COVID-19; S76.811A Strain of other specified muscles, fascia and tendons at thigh level, right thigh, initial encounter; E87.6 Hypokalemia; R33.9 Retention of urine, unspecified; D64.9 Anemia, unspecified; D69.6 Thrombocytopenia, unspecified; F10.10 Alcohol abuse, uncomplicated; K70.30 Alcoholic cirrhosis of liver without ascites; I10 Essential (primary) hypertension; G89.4 Chronic pain syndrome; E78.5 Hyperlipidemia, unspecified; F17.200 Nicotine dependence, unspecified, uncomplicated; Z96.641 Presence of right artificial hip joint; Z98.890 Other specified postprocedural states; Z92.21 Personal history of antineoplastic chemotherapy; Z85.819 Personal history of malignant neoplasm of unspecified site of lip, oral cavity, and pharynx; Z79.899 Other long term (current) drug therapy; Z92.3 Personal history of irradiation; W06.XXXA Fall from bed, initial encounter
CPT/HCPCS: 36415; 73552; 80048; 80053; 80076; 81001; 83735; 83930; 83935; 84100; 84295; 84550; 85025; 85060; 96374; 97110; 97116; 97161; 97165; 97530; 99284-25; A9270; C9803; J2270; J3480; J7030; J7040; J7060; J7131; U0003

== ENCOUNTER 2021-09-16 15:23 | Inpatient (IN) | payer MEDICARE, OTHER ==
[~2021-09-16] VITALS: Ht 170.2 cm; Wt 44.5 kg
[~2021-09-16 15:23] MED LIST changes: +CARVEDILOL6.25 MG PO; +CYCLOBENZAPRINE10 MG PO; +LISINOPRIL20 MG PO; +OXYCODONE HCL5 MG PO; +PENTOXIFYLLINE400 MG PO; +POTASSIUM CHLO20 ME2 PO; +UROXATRAL10 MG PO
--- OUTSIDE RECORDS SUMMARY | 2021-09-16 15:24 | XMS ---
PreManage Notification: LARRY MCGOVERN Security Gerontology Aide Events No recent Security Events currently on file CRITERIA MET - [facility] CARE PROVIDERS MASHA Godoy It Audit Manager: Clinical 10/04/2019-Current [facility] \F\ [facility] PHONE: [phone] Brionna has no Care Guidelines for this patient. Care History Medical/Surgical 11/02/2019 [facility] - PATIENT HAS AN ESTABLISHING CARE APT WITH DR SUTTON 11/14/2019 @ 2:00PM- PATIENT WILL TRANSFER TO DR BAKER ONCE PHYSICIAN IS AT THE CLINIC. 10/30/2019 [facility] - W CONTACTED LISA- [place] [employer]- [phone] TO SEE IF PATIENT IS ELIGIBLE FOR [facility] BENEF[facility] AND TO CONTACT PATIENT FOR FOLLOW UP WITH THE [facility]. - LISA STATED PATIENT IS ELIGIBLE FOR SERVICES AND WILL BE IN CONTACT WITH PATIENT FOR FOLLOW UP. 10/04/2019 [facility] \T\middot;\T\nbsp; PATIENT IS A -RECEIVES [place] THROUGH [place]. \T\middot;\T\nbsp; Location: [address], [place] [address]- E.D. VISIT COUNT (12 MO.) [address] [facility] TOTAL 3 NOTE: Visits indicate total known visits. ED/UCC VISIT TRACKING (12 MO.) 09/16/2021 15:23 [facility] TYPE: Emergency COMPLAINT: - ALTERED LOC 06/01/2021 03:47 [facility] TYPE: Emergency COMPLAINT: - FALL 03/09/2021 09:40 [facility] TYPE: Emergency COMPLAINT: - FALL DIAGNOSES: - Essential (primary) hypertension - Other medical terminologist (current) drug therapy - Unspecified fall, initial encounter - Pain in right hip - Nicotine dependence, unspecified, uncomplicated - Pure hypercholesterolemia, unspecified - Thrombocytopenia, unspecified - Personal history of malignant neoplasm of esophagus - Hypo-osmolality and hyponatremia - Displaced intertrochanteric fracture of right femur, initial encounter for closed fracture - Hypokalemia - Alcoholic cirrhosis of liver with ascites INPATIENT VISIT TRACKING (12 MO.) 06/01/2021 09:11 [facility] TYPE: Medical Surgical COMPLAINT: - HYPOKALEMIA, HYPONATREMIA DIAGNOSES: - Contact with and (suspected) exposure to COVID-19 - Personal history of irradiation - Retention of urine, unspecified - Nicotine dependence, unspecified, uncomplicated - 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, oral cavity, and pharynx - Anemia, unspecified - Other specified postprocedural states - Fall from bed, initial encounter - Alcoholic cirrhosis of liver without ascites - Hyperlipidemia, unspecified - Alcohol abuse, uncomplicated - Body mass index [BMI] 19.9 or less, adult - Chronic pain syndrome - Hyperlipidemia, unspecified - Thrombocytopenia, unspecified - Alcohol abuse, uncomplicated - Anemia, unspecified - Hypo-osmolality and hyponatremia - Unspecified severe protein-calorie malnutrition - Thrombocytopenia, unspecified - Strain of other specified muscles, fascia and tendons at thigh level, right thigh, initial encounter - Presence of right artificial hip joint - Strain of other specified muscles, fascia and tendons at thigh level, right thigh, initial encounter - Personal history of antineoplastic chemotherapy - Presence of right artificial hip joint - Hypokalemia - Retention of urine, unspecified - Nicotine dependence, unspecified, uncomplicated - Alcoholic cirrhosis of liver without ascites - Essential (primary) hypertension - Fall from bed, initial encounter - Chronic pain syndrome - Contact with and (suspected) exposure to COVID-19 - Other care home (current) drug therapy - Personal history of antineoplastic chemotherapy - Other specified postprocedural states - Hypokalemia - 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
--- NOTE | 2021-09-16 19:35 | NUR ---
PT ARRIVED FROM ED, HE IS DROWSY, DISORIENTED, FIGITING, NO ANSWER QUESTIONS.
--- NOTE | 2021-09-16 19:40 | NUR ---
AT CCU NURSES STATION UPDATED OF PT HAVING ELEVATED ST SEGMENT 1.3.
--- NOTE | 2021-09-16 20:56 | NUR ---
PT RESTING IN BED RELAXED, OCCASSIONAL FIGITING, NEW IV TO BE STARTED FOR DRIP, MAG REPLACE AND K AND NA REPLACE. PT NOT VERBALIZING, DROWSY.
--- NOTE | 2021-09-16 21:29 | NUR ---
PT VERY AGGITATED, WITH STAFF ATTEMPTING TO START IV, PT PULLING AND BALLING HIS FISTS, HE IS VERBALIZING, "STOP THIS, GET OFF ME, THAT HURTS", ATIVAN 0.5MG IV ADMINISTERED FOR AGGITATION.
--- NOTE | 2021-09-16 22:03 | NUR ---
LABETALOL STARTED, DUE TO MONITOR SCREEN ON COMPUTER NOT WORKING, DOUBLE CHECKED MED AND IV PUMP PROGRAM WITH ADONIS TERRY. WILL MONITOR FOR TITRATION NEEDS PER ORDERS
--- NOTE | 2021-09-16 22:06 | NUR ---
LABETALOL AND IVF WITH 40K MIXED AND PROVIDED TO UNIT AT 2130
--- NOTE | 2021-09-16 23:44 | NUR ---
PT RESTLESS IN BED CONTINUES TO SWING LEGS OVER RAILS, WHILE TRY ING TO ORIENT PT HE SAID "WHY AM IN THE HOSPITAL?" PT THEN EDUCATED AND UPDATED ON THE EVENTS LEADING TO HIS ADMISSION. PT DOES NOT STAY ORIENTED AND DOES NOT FOLLOW DIRECTION/REDIRECTION IN REGARDS TO STAYING IN BED AND NOT PULLING ON MONITOR LINES.
--- NOTE | 2021-09-17 00:16 | NUR ---
pt iv in left upper arm infiltrated and pt right fa/wrist began bleeding while staff looking for iv sites nothing infusing at the time. two new 22 ga sites established required three staff rns to assist in holding pt arms to prevent him from pinching and pulling arms away from iv starts.
--- NOTE | 2021-09-17 00:57 | NUR ---
CALLED CCU NURSES STATION FOR UPDATES, UPDATED ON PT LABETALOL DRIP AND EFFECT ON B/P AND MAP OVER FIRST PART OF SHIFT. SAID TO HOLD DRIP FOR NOW AND MONITOR IF SBP >220 OR DBP >120 THEN CALL FOR LABETALOL PUSH ORDER.
--- NOTE | 2021-09-17 01:49 | NUR ---
nicardapine drip started at this time.
--- NOTE | 2021-09-17 02:29 | NUR ---
PT NICARDIPINE DRIP TITRATED DOWN TO 0.6MG/HR AT THIS TIME HIS MAP IS 110
--- NOTE | 2021-09-17 03:18 | NUR ---
PT INTERMITTENLY RESTLESS IN BED, HE PULLED HIS OXIMETRY STICKER OFF HIS FINGER, REPLACED AT THIS TIME
--- NOTE | 2021-09-17 03:57 | NUR ---
PT REPOSITIONED, GOWN AND DRAW SHEET CHANGED DUE TO SCANT AMOUNT OF BLOOD DROPS DUE TO IV STARTS, ALSO NOTED RIGHT UPPER FA IV SITE BLEEDING AROUND HUB SLIGHTLY, NEW DRESSING PLACED, IV SITE PATENT. PT ORIENTED TO SELF AND PLACE. CONTINUE TO REORIENT TO EVENT AND CARE PLAN. PT NOT COOPERATIVE, HE FLICKED HIS FINGER HITTING KARI TERRY IN THE FACE AND TRIED TO PINCH HER WHILE PROVIDING CARE. PT ADMINISTERED ATIVAN 0.5MG IV PRN FOR AGITATION.
--- NOTE | 2021-09-17 04:20 | NUR ---
PT RESTING QUIETLY IN BED EYES CLOSED RR REGULAR. NO DISTRESS NOTED AT THIS TIME.
--- NOTE | 2021-09-17 06:12 | NUR ---
DR. CALERO NOTIFIED OF PT'S LABS AT THIS TIME. NEW ORDERS GIVEN TO STOP CURRENT IVF AND ADMINISTER 40 MEQ IV POTASSIUM (K-RIDERS). WILL CONTINUE PLAN OF CARE AND NOTIFY PRIMARY RN.
--- NOTE | 2021-09-17 07:40 | NUR ---
Attempted to see pt. He is obtunded. Update from Rn's he was found wandering in his yard by his neighbor and brought to the hospital. Will attempt to call emergency contact later.
--- NOTE | 2021-09-17 08:15 | NUR ---
PATIENT AWAKE IN BED, WASHCLOTH PROVIDED FAR FACE AND HANDS, PATIENT WASHED FACE AND THEN LAID CLOTH ON HIS CHEST AND CLOSED HIS EYES. VITALS AND I&OS CHARTED. JULIEN EMPTIED. RN IN TO ASSESS PATIENT. CALL LIGHT IN EASY REACH, ALARM ON FOR SAFETY
--- NOTE | 2021-09-17 08:17 | NUR ---
IN PATIENT'S ROOM FOR ASSESSMENT. PT RESTING AND APPERAS COMFORTABLE. REMAINS ON NICARDIPINE GTT AT 0.8 MG/HR. LAST BP 156/101 (116). HR IN THE 90-100s. PT ANSWERS AND NAME QUESTIONS APPROPRIATELY, AND STATES HE IS AT [facility]. PT OVERALL NOT VERY CONVERSIVE AND WANTING TO REST. NO AM MEDS DUE AT THIS TIME. CONTINUE TO MONITOR BP CLOSELY. BED ALARM ON FOR SAFETY.
--- NOTE | 2021-09-17 08:55 | NUR ---
NICARDIPINE TITRATED DOWN 0.6 MG/HR AT THIS TIME, DUE TO MAP BEING 111.
--- NOTE | 2021-09-17 10:53 | NUR ---
PATIENT BECOMING MORE AWAKE AND ALERT, ANSWERING QUESTIONS. PATIENT SETS OFF BED ALARM X2. PT ASKING FOR TERESA D. WILL DISCUSS WITH MD ADVANCING DIET TOLERATED. IV SITES INFUSING WELL W/O DIFFICULTY. 1200 LABS WILL BE DRAWN TO SEE SODIUM AND POTASSIUM. PT ALSO STATES, "I'M HEADED DOWN TO [place] K." WILL CONTINUE TO MONITR.
--- NOTE | 2021-09-17 12:23 | NUR ---
PATIENT REPOSITIONED IN BED, VITALS AND IS&OS CHARTED. CLEAR LIQ TRAY AT BEDSIDE, PATIENT REFUSING INTAKE OTHER THAN JUICE AND WATER AT THIS TIME. JULIEN EMPTIED. ALARM ON FOR SAFETY.
--- NOTE | 2021-09-17 14:08 | NUR ---
ADMINISTERED MED PER ORDER. PT SWALLOWED WO DIFF.
--- NOTE | 2021-09-17 15:09 | NUR ---
JULIEN D/C PER ORDER. PT UP AND OUT OF BED AND SETS ALARM OFF. PT STATES HE WANTS TO GO TO HIS HOME. REORIENTED TO THE HOSPTIAL AND PT STATES, "HOW IN THE HELL DID I GET HERE?" EXPLAINED TO PATIENT HIS ADMISSION TO HOSPITAL AND THAT HIS FRIEND ROSE CALLED 911 AND EMS BROUGHT HIM TO HOSPITAL. EXPLAINED HIS LOW LAB VALUES AGAIN. PT THEN WALKS INTO BATHROOM, AND IS FAIRLY UNSTEADY, ATTEMPTS TO VOID, BUT SINCE JULIEN WAS JUST REMOVED, UNABLE TO. PT NOW BACK IN BED AND GIVEN MORE ORANGE JUICE. WILL CONTINUE TO MONITOR CLOSELY. BED ALARM FOR SAFETY.
--- NOTE | 2021-09-17 15:20 | NUR ---
PATIENT UP OUT OF BED AGAIN AND STATES HE NEEDS TO GO HOME. PT DEMANDING NURSES TO GET OUT OF HIS WAY, AND ALMOST RIPS HIS IV SITES OUT. EXPLAINED TO PATIENT AGAIN FOR REASON TO BE IN HOSPITAL. PT STATES HE IS GOING TO DRIVE HIS RIG HOME, AN EXPLAINED TO PATIENT THAT HIS RIG IS NOT HERE, DUE TO COMING IN VIA EMS. PT NOW BACK IN BED. IVF CONNECTED. PT'S FRIEND ROSE CALLED AND NOW TALKING TO PATIENT ON THE PHONE. CONTINUE ABRAHAM ONITOR.
--- NOTE | 2021-09-17 17:53 | NUR ---
PATIENT MOANING IN BED AND ABOUT TO GET UP OUT OF BED. WHEN ASKING PATIENT WHERE HE IS HEADED, HE STATES, "I'M HEADED HOME. I'VE GOT A DOG TO TAKE CARE OF. AND I'VE GOT THINGS TO DO." REMINDED PATIENT THAT HE DOES NOT HAVE HIS CAR HERE, AND THAT WE WOULD LIKE TO COLLECT 1800 LABS WHICH HE IS AGREEABLE TO AT THIS TIME. PT DENIES NEEDING TO VOID YET. JULIEN D/C EARLIER THIS AFTERNOON. WILL CONTINUE TO MONITOR AND BED ALARM REMAINS ON FOR SAFETY.
--- NOTE | 2021-09-17 18:27 | NUR ---
PATIENT AGAIN UP AND SETTING BED ALARM OFF. PT STATES HE IS GOING HOME. PT BECOMING TANGLED IN CORDS, IV LINES, AND NOT WILLING TO LISTEN TO NURSING STAFF. IV DISCONNECTED. PATIENT WAS AGREEABLE TO LAB DRAW 10 MINUTES PRIOR BUT NOW STATES HE WILL NOT ALLOW THE LAB DRAW TO OCCUR. PT STATES HE IS GOING HOME. WHEN ASKNG HOW HE WOULD GET HOME, HE SAID, "I'VE GOT A WAY, IT DOESN'T MATTER." DISCUSSED WITH PATIENT THAT HIS CAR IS NOT HERE AND HE STATES, "I KNOW." OFFERED TO CALL HIS FRIEND ROSE, BUT HE DENIES WANTING TO TALK TO HIM. PT THEN UP AGAIN AND TYRING TO WALK INTO [place] WIHTOUT A GOWN ON AND WHILE STILL CONNECTED TO CORDS. PT ALLOWS THIS RN TO PLACE A GOWN ON PATIENT AND TO DISCONNECT MONITOR CORDS. WALKED IN [place] ALL THE WAY DOWN TO END, PT UNSTEADY ON FEET AT TIMES, BUT OTHERWISE HOLDING ONTO WALL DOWN THE DOMÍNGUEZ. WHEN WE REACH THE END HE TRIES TO GO OUT CCU DOORS TO "GO HOME" BUT REMINDED PATIENT THAT HIS PERSONAL BELONGINGS ARE BACK IN HIS ROOM, AND THAT WE WOULD NEED TO GET HIM DRESSED AND HIS IV SITES TAKEN OUT BEFORE HE COULD LEAVE AMA. PT AGREEABLE TO WALK BACK TO ROOM. UPON ENTRY TO ROOM, PATIENT CLIMBS INTO BED AND C/O BEING COLD. WARM BLANKETS PROVIDD FOR PATIENT, AND HE IS NOW RESTING WITH EYES CLOSED. BED ALARM PLACED BACK ON. WILL CONTINUE TO MONITOR. PT STILL WAS REFUSING [address] BE DRA[address] CALERO TO BE UPDATED.
--- NOTE | 2021-09-17 19:03 | NUR ---
PT CONTINUES TO REST AT THIS TIME. BED ALARM ON FOR SAFETY. HR IN THE 70s MOST RECENT BP 177/99. CONTINUE TO MONITOR.
--- NOTE | 2021-09-17 19:56 | NUR ---
AT BEDSIDE TO ASK PT PERMISSION TO DRAW LABS, PT OPENS EYES BUT REFUSES TO VERBALIZEWITH STAFF. THIS RN ALSO ATTEMPTING TO COMMUNICATE WITH PT HE REFUSES TO ANSWER. SAID HE WOULD ORDER LABS AND SEE IF HE WILL ALLOW THIS.
--- NOTE | 2021-09-17 22:00 | NUR ---
NOTIFIED OF PT CRITICAL POTASSIUM 2.3 AND THAT PT HAS NOT HAD URINE OUT SINCE JULIEN REMOVED AT 1500, PT BLADDER SCAN WAS 129ML. SAID TO CONTINUE TO MONITOR FOR URINE OUT, NO NEW ORDERS FOR THAT, HE WOULD PLACED NEW ORDERS FOR LOW K AND TELEMETRY FOR TRANSFER TO M/S.
--- NOTE | 2021-09-17 22:25 | NUR ---
SPOKE TO SASHA TERRY OVER [employer] PHONE TO REQUEST IVF TO BE MIXED FOR NEW ORDER
--- NOTE | 2021-09-18 00:23 | NUR ---
PT REFUSED COREG AT THIS TIME. HE OPENED HIS EYES AND NODDED THAT HE WOULD TAKE THE MEDICATION, HE THEN SHUT HIS EYES AND REFUSED TO INTERACT AND REFUSED TO OPEN HIS MOUTH.
--- NOTE | 2021-09-18 03:18 | NUR ---
PT ALERT AND ORIENTED, ASKING FOR WATER, HE REPORTS HE DOES NOT FEEL THE NEED TO URINATE AT THIS TIME. WATER PROVIDED. PT HAS NO OTHER REQUESTS AT THIS TIME
--- NOTE | 2021-09-18 03:49 | NUR ---
PT SITTING UP WATCHING TV. URINAL PROVIDED, DISCUSSED WITH PT NEED TO BLADDER SCAN AGAIN IF HE DOESNT FEEL LIKE HE CAN VOID, HE SAID, "WAIT A WHILE" WILL MONITOR
--- NOTE | 2021-09-18 04:10 | NUR ---
PT SAID "NO" TO THIS RN IN REGARDS TO HAVING A BLADDER SCAN AT THIS TIME.
--- NOTE | 2021-09-18 04:55 | NUR ---
UPDATED ON THE PHONE AT THIS TIME, TO PT NOT HAVING VOIDED URINE SINCE JULIEN OUT AND HE IS NOW REFUSING TO ALLOW STAFF TO BLADDER SCAN AT THIS TIME
--- NOTE | 2021-09-18 07:44 | NUR ---
REPORT RECIEVED. INCONT OF LARGE AMOUNT OF URINE. TELE 9 APPLIED. UP TO CHAIR WITH ASSIST. REPORT TO MED-SURG.
--- NOTE | 2021-09-18 09:32 | NUR ---
RN IN ROOM TO ASSESS PT - PT UP IN CHAIR UPON ENTRY WITH CLASSIFICATION OFFICER IN ROOM. PT EXPRESSESS WANTING TO "GET THE HECK OUT OF HERE", STATES HE HAS "THINGS TO DO AT HOME". PT NOTED TO BE SMOKER AND ETOH USE AT HOME WELL MARJIUANA USE DAILY. NICOTINE COVERAGE ORDERED NIO. IV SITE TOLERATING IV INFUSION WITHOUT DIFFICULTY. PT HELPED WITH TELEPHONE TO CALL NEIGHBOR ROSE - NO ANSWER. PT ORIENTED X4 - SPEECH SLOW TO RESPOND. IMPULSIVE TO AMBULATE IN ROOM UNATTENDED, CHAIR ALARM PLACED.
--- NOTE | 2021-09-18 10:30 | NUR ---
Spoke with pt and he states he cont. to live with his friend Lele and his . He has a cane and a walker. Last admission I set him up with the state to evaluate for a in licensed home inspector. He states he told them to leave. He denies needs or wants. Plans on leaving AMA as soon as Lele arrives.
--- NOTE | 2021-09-18 10:40 | NUR ---
Notified by staff, Lele here and would like to speak with me. Lele feels pt needs to be placed. Discussed this would be to a SNF or SHELTER/Residential care. Pt does not qualify for a SNF and does not agree to placement. Lele states he will not kick him out, but Karthik is requiring more and more help. He states Karthik did tell the state to leave when they attempted to evaluate. He asks if there is anyone else who can assist him. I let him know I will call [facility] and ask if they can complete a needs assessment. They do have programs for . I renato give them Lele's number to call. Lele is in agreement with this. Karthik just wanting to leave.
--- NOTE | 2021-09-18 10:40 | NUR ---
RN ROUNDING ON PT - PT UP IN HALLWAY ANXIOUS TO GO HOME. RN ABLE TO GET AHOLD OF ROSE - ROOMATE- HERE TO GET HIM. ROSE REQUESTS TO TALK TO MARISELA HAMMOND, CONVERSATION HAD ABOUT POSSIBLE NEXT STEPS FOR PT HE IS UNFIT TO TAKE CARE OF HIM AT HIS HOUSE. CARD FOR STEPHANY ALSO PROVIDED. NOTIFIED OF PT REQUEST TO LEAVE AMA. MD ROUNDS AND COMPLETES AMA PAPERWORK AFTER TALKING WITH PT. RN WITNESS PT SIGNATURE. ROSE HERE TO TAKE HIM HOME.
--- NOTE | 2021-09-18 14:22 | NUR ---
Called and left a message for Celeste bowden [facility]. Asked if they could contact Lele to assist Karthik with a needs assessmen. Left Lele's number.
--- NOTE | 2021-09-18 15:53 | EKG ---
[facility] [address] [place] [address] Signed Poor data quality, interpretation may be adversely affected Sinus tachycardia Biatrial enlargement Indeterminate axis Pulmonary disease pattern Minimal voltage criteria for LVH, may be normal variant ( Herman product ) Septal infarct (cited on or before 14-JAN-2021) Abnormal ECG When compared with ECG of 09-MAR-2021 10:11, Sinus rhythm has replaced Junctional rhythm Questionable change in initial forces of Septal leads QT has shortened Confirmed by RIAN CALERO MD ([id number]) on 09/18/2021 3:53:38 PM Electronically Signed By: RIAN CALERO MD 09/18/21 1553 PATIENT NAME: LARRY MCGOVERN Electrocardiogram DATE OF : 56 PHYSICIAN: RIAN CALERO MD REPORT #: [id number] REPORT IS CONFIDENTIAL AND NOT TO BE RELEASED WITHOUT AUTHORIZATION
== END 2021-09-18 11:15 | disposition left against medical advice (07) | DRG 682 ==
LOC: ED 15:23 → MS 19:26 → CCU 19:26 → MS 09-18 08:25
PROVIDERS: ADMIT Internal Medicine; ATTEND Internal Medicine
DX: N17.9 Acute kidney failure, unspecified (principal); G93.41 Metabolic encephalopathy; E87.1 Hypo-osmolality and hyponatremia; E87.6 Hypokalemia; Z20.822 Contact with and (suspected) exposure to COVID-19; I16.0 Hypertensive urgency; N40.0 Benign prostatic hyperplasia without lower urinary tract symptoms; E86.0 Dehydration; G89.4 Chronic pain syndrome; D69.6 Thrombocytopenia, unspecified; D72.819 Decreased white blood cell count, unspecified; C10.9 Malignant neoplasm of oropharynx, unspecified; K70.30 Alcoholic cirrhosis of liver without ascites; E78.5 Hyperlipidemia, unspecified; I73.9 Peripheral vascular disease, unspecified; F17.210 Nicotine dependence, cigarettes, uncomplicated; Z98.890 Other specified postprocedural states; Z79.899 Other long term (current) drug therapy
CPT/HCPCS: 36415; 70450; 71045; 80048; 80053; 80076; 81001; 82140; 83735; 83930; 83935; 85025; 85060; 85610; 85730; 87088; 93005; 93010; 96365; 96366; 96375; 96376; 99285-25; A9270; C9803; G0480; J2060; J2250; J3475; J3480; J7030; J7060; U0003

== ENCOUNTER 2021-10-01 07:50 | Inpatient (IN) | payer MEDICARE, OTHER ==
[~2021-10-01] VITALS: Ht 170.2 cm; Wt 44.4 kg
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
--- NOTE | 2021-10-01 14:32 | NUR ---
PATIENT ARRIVES TO CCU AT 1415 VIA STRETCHER. PT MOVED FROM ER STRETCHER TO CCU BED. PT HAS SLING ON RIGHT ARM, RIGHT SHOULDER IS LARGE, BRUISED, AND SWOLLEN. PER CXR, PT HAS FX OF HUMERUS. DR. CALERO IN ROOM TO SEE PATIENT. IVF TO BE STARTED. IV SITES IN LEFT ARM FLUSHING WELL. SKIN TEAR ON RIGHT HAND NOTED. BRUISING NOTED ALL THROUGH OUT BODY.
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
--- NOTE | 2021-10-01 16:23 | NUR ---
PT WILLING TO USE NICOTINE PATCH. PT DROWSY. ASSSITED WITH REPOSITIONING IN THE BED. HEART RATE INTHE 80S. SPO2 = 95% ON ROOM AIR. BED ALARM IN PLACE. WILL CONTINUE TO MONITOR.
--- NOTE | 2021-10-01 17:22 | NUR ---
pt incontinent of urine. pericare provided. pt repositioned in bed. PT refuses to eat. call light within reach. will continue to monitor.
--- NOTE | 2021-10-01 20:40 | EKG ---
[facility] [address] [facility] [place] [address] Signed Poor data quality, interpretation may be adversely affected Sinus rhythm with premature supraventricular complexes and with occasional premature ventricular complexes Right atrial enlargement Septal infarct (cited on or before 14-JAN-2021) Prolonged QT Abnormal ECG When compared with ECG of 16-SEP-2021 16:34, Significant changes have occurred Confirmed by RIAN CALERO MD ([id number]) on 10/01/2021 8:40:32 PM Electronically Signed By: RIAN CALERO MD 10/01/[id number] PATIENT NAME: LARRY MCGOVERN Electrocardiogram DATE OF : 56 PHYSICIAN: RIAN CALERO MD REPORT #: [id number] REPORT IS CONFIDENTIAL AND NOT TO BE RELEASED WITHOUT AUTHORIZATION
--- NOTE | 2021-10-01 20:46 | NUR ---
PATIENT ORIENTED TO SELF AND SITUATION IN GENERAL TERMS. PATIENT AWARE BEING IN THE HOSPITAL BUT ALSO STATES THAT HE WOULD LIKE TO "GO UP TO HIS ROOM AND SHOWER" THEN COME BACK. PATIENT ALLOWS THIS RN TO DRESS THE WOUND ON HIS HAND AND FLUSH IV SITES. IVF PER ORDER, SITE HAS SOME BLOOD UNDER THE BANDAGE BUT FLUSHES EASILY AND DRAWS BACK BLOOD. VS STABLE. PATIENT REPORTS PAIN IN RIGHT ARM AND ALLOWS SLING TO BE PUT IN PLACE. BRUISING NOTED ON MOST OF UPPER RIGHT ARM/SHOULDER. OTHER AREAS OF BRUISING ON LEFT UPPER ARM, LEFT HIP, AND TRENT LOWER LEGS. ATTENDS WET, VENESSA CARE DONE. NEW ATTENDS IN PLACE. PATIENT REPORTS PAIN AND REQUEST PRN PAIN MEDS. DISCUSSED WITH , VERBAL ORDERS RECEIVED AND VERIFIED VIA REPEAT BACK.
--- NOTE | 2021-10-01 22:15 | NUR ---
LAB IN FOR 2200 DRAW. PATIENT IS ALERT BUT CONTINUES TO BE CONFUSED. REPORTS HE NEEDS TO GO HOME AND NOT ABLE TO ORIENT PATIENT. WILL CONTINUE TO MONITOR.
--- NOTE | 2021-10-01 22:30 | NUR ---
PATIENT ATTENDS CHANGED; WEIGHT OBTAINED FOR I&O'S. PATIENT RESTING IN BED, WATCHING TV. DENIED ANY NEEDS.
--- NOTE | 2021-10-01 22:50 | NUR ---
AWARE OF NEW LAB RESULTS, INCLUDING CRITICAL LAB VALUE. TO PLACE ORDERS.
--- NOTE | 2021-10-02 00:05 | NUR ---
PATIENT RECEIVING IV K+ REPLACEMENT. IV SITE WNL. PATIENT IS ALERT BUT ORIENTED TO SELF AND SURROUNDINGS BUT NOT YEAR OR CURRENT EVENTS. PATIENT REPORTS HE PLANS TO LEAVE AFTER "WE ARE DONE WITH HIM" AND DOESN'T PLAN TO STAY THE NIGHT. PATIENT ALSO STATES HE WILL HAVE HIS PICK HIM UP AND IT IS KNOWN THAT HIS WIDE . THIS RN DOESN'T ATTEMPT TO REORIENT AT THIS TIME AND ALLOWS PATIENT TO VERBALIZE HE REQUEST.
--- NOTE | 2021-10-02 01:30 | NUR ---
PATIENT ATTEMPTS TO SWALLOW HIS PO K+ AND THEN CHANGED HIS MIND, SPITTING THEM OUT AND TELLING THE RN ADONIS THAT HE MIGHT TAKE THEM LATER BUT FEELS HE HAS ALREADY TAKEN TO MANY PILLS. PATIENT BECOMING MORE WITHDRAWN AND NOT ABLE TO REASON WITH HIM. VS STABLE.
--- NOTE | 2021-10-02 04:00 | NUR ---
ALLOWING PATIENT TO REST WITH EYES CLOSED. ATTENDS IS DRY. VS STABLE. IV FLUIDS PER ORDER, SITE WNL.
--- NOTE | 2021-10-02 05:15 | NUR ---
PATIENT WOKE EASILY. DENIED ANY NEEDS. ATTENDS CHANGED. IV FLUIDS PER ORDER, SITE WNL. PATIENT CONTINUES TO DECLINE PO K+. AWARE.
--- NOTE | 2021-10-02 07:38 | NUR ---
REPORT RECIEVED, CARE OF PT ASSUMED AT THIS TIME. LAB IN ROOM AT THIS TIME FOR BLOOD DRAW. PT ALERT BUT DISORIENTED TO TIME, DATE, OR CURRENT CONDITION. PT DENIES PAIN. RIGHT ARM IN A SLING. PLAN OF CARE FOR DAY ESTABLISHED. CALL LIGHT WITHIN REACH. WILL CONTINUE TO MONITOR.
--- NOTE | 2021-10-02 07:51 | NUR ---
DR CONNOR IN ROOM AT THIS [facility] TO ASSESS PT.
--- NOTE | 2021-10-02 08:29 | NUR ---
IMAGING IN ROOM AT THIS TIME TO DO RIGHT SHOULDER XRAY
--- NOTE | 2021-10-02 08:53 | NUR ---
DR CALERO UPDATED ON PT LAB VALUES. TELEPHONE ORDER FOR POTASSIUME RECIEVED (SEE EMAR). BED BATH COMPLETED BY CUSTOM CLOTHIER. WILL CONTINUE TO MONITOR.
--- NOTE | 2021-10-02 08:58 | NUR ---
PATIENT INCONTINENT OF URINE, BRIEF AND ARGELIA REPLACED. PATIENT SITTING UP IN BED FOR BREAKFAST, SLOW TO RESPOND BUT ABLE TO EAT AND DRINK WITH HIS LEFT HAND WITH LITTLE ASSISTANCE AND CUES. VITALS CHARTED.
--- NOTE | 2021-10-02 09:04 | NUR ---
ATTEMPTED TO SPEAK WITH PATIENT. PATIENT APPEARS SLEEPY AND DOES NOT ANSWER QUESTIONS. PATIENT CLOSES EYES, BUT NODS WHEN THIS RN STATES SHE WILL COME BACK LATER.
--- NOTE | 2021-10-02 09:23 | NUR ---
PT GIVEN ORAL POTASSIUM IN APPLESAUCE. PT ATE HALF OF THE POTASSIUM.
--- NOTE | 2021-10-02 10:00 | NUR ---
DR CALERO IN ROOM TO ASSESS PT.
--- NOTE | 2021-10-02 11:15 | NUR ---
PT PLACED ON 4 L NC. SPO2 = 92%. PT REMAINS DROWSY, AWAKENS TO VOICE. 3% NS AND IV POTASSIUM NOW INFUSING. CALL LIGHT WITHIN REACH. AND BED ALARM IN PLACE. WILL CONTINUE TO MONITOR.
--- NOTE | 2021-10-02 12:02 | NUR ---
REPORT RECEIVED VIA PHONE FROM JOHANNA TERRY, ALL QUESTIONS ANSWERED. PT TO RM115 VIA BED. PT ON 4LNC O2, O2 SATS 91%. PT DROWSY, AWAKENS EASILY, ALERT TO SELF AND PLACE, UNAWARE OF SITUATION AND TIME. SLING ON RIGHT UPPER EXTREMITY. PT INSTRUCTED LEGAL RECOVERY SPECIALIST LIGHT USE, WITHIN REACH. BED ALARM ON. DENIES NEEDS AT THIS TIME.
--- NOTE | 2021-10-02 12:25 | NUR ---
PATIENT REFUSED LUNCH PRIOR TO BEING TRANSFERRED TO THE MEDICAL FLOOR.
--- NOTE | 2021-10-02 13:14 | NUR ---
PT RESTING IN BED WITH EYES CLOSED, RESPIRATIONS EVEN AND UNLABORED. BED ALARM ON. CALL LIGHT IN REACH.
--- NOTE | 2021-10-02 15:58 | NUR ---
REPORT RECEIVED FROM KIMMY, RN AND PT. CARE RESUMED.
--- NOTE | 2021-10-02 19:20 | NUR ---
PT LEFT HAND SKIN TEAR DRESSING SATURATED WITH SS FLUID. CLEANED AND REDRESSED. PT. IS NOW USING CALL LIGHT APPROPRIATELY FOR WATER AND IS ORIENTED TO ALL BUT PLACE.
--- NOTE | 2021-10-02 19:30 | NUR ---
Patient in bed w/back brace and RUE sling in place. On 4L O2. Denies needs at this time. Call light within reach. Bed alarm in place.
--- NOTE | 2021-10-02 19:50 | NUR ---
CALLED LIGHT ON, IN TO CHECK PT, PT INDACTEDS NO CURRENT NEEDS AT THIS TIME
--- NOTE | 2021-10-02 23:13 | NUR ---
Patient resting in bed. IV in left wrist started leaking and became dislodged. Still attempting to reinsert new IV. Dressing on back of right hand changed. Call light within reach.
--- NOTE | 2021-10-03 02:30 | NUR ---
Patient asleep in bed. Call light within reach. Still working on obtaining IV access.
--- NOTE | 2021-10-03 04:12 | NUR ---
Central line inserted. Fluids/antibiotics restarted at approximately 0400. Patient resting comfortably in bed. Call light within reach.
--- NOTE | 2021-10-03 05:13 | NUR ---
Patient remains very confused. Responds slowly to commands. Appears to ignore commands/questions at times. Disoriented to time. Does not call. Bed alarm in place. Scatter rhonchi throughout airspace. On RA. Placed on RA by Juvenal MERINO. HR sounds regular. Central line infusing appropriately. Has not been out of bed. Incontinent of urine. Bowel sounds active. No BM on shift.
--- NOTE | 2021-10-03 07:01 | NUR ---
DR CALERO AWARE OF THE GRAM POSITIVE COCCI BLOOD CULTURE ,
--- NOTE | 2021-10-03 08:00 | NUR ---
REPORT RECEIVED FROM NIGHT RN AND PT. CARE RESUMED. PT. IS DROWSY AND AWAKENS TO LOUD SOUND OR TOUCH. HE IS SLOW TO RESPOND AND ANSWERS SOME QUESTIONS APPROPRIATELY. ORIENTED TO SELF. PULSES IN ALL EXTREMITIES WEAK AND LUE COOL WITH +2 EDEMA PRESENT. ELEVATED EXTREMITY ON PILLOW. PT. ASSISTED WITH TURNING AND POSITIONED WITH PILLOWS. CENTRAL LINE HAS BRISK BLOOD RETURN AND FLUSHES IN ALL LUMENS. ASSESSMENT COMPLETED. BACK BRACE REMOVED WHILE PT. SLEEPING. PT. ABLE TO SWALLOW PO MEDS. LEFT RESTING WITH BED ALARM ON. AND CURTAIN OPEN.
--- NOTE | 2021-10-03 09:57 | NUR ---
THIS NURSE AND BEHAVIORAL MEDICAL DIRECTOR CHANGED BRIEF AND CLEANED PT. LEFT RESTING WITH CALL LIGHT IN REACH AND ALARM ON.
--- NOTE | 2021-10-03 11:45 | NUR ---
Attempted to speak with pt. Pt opens eyes when name spoken loudly, pt is not does not answer questions and returns to sleep.
--- NOTE | 2021-10-03 14:12 | NUR ---
LABS DRAWN FROM CENTRAL LINE. 10ML WASTED. CLAVE CHANGED AND LINE SALINE LOCKED. ALCOHOL CAB APPLIED.
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
--- NOTE | 2021-10-03 15:53 | NUR ---
THE OCCUPATIONAL THERAPIST AND I CHANGED PATIENT'S TAPED ATTENDS. HE DID HELP BY LIFTING HIS BOTTOM. WHEN I GOT BACK FROM LUNCH. AT 12:40PM
--- NOTE | 2021-10-03 15:56 | NUR ---
NURSE AND I CHANGED PATIENT'S TAPED ATTEND ABOUT 5MINS. AGO. GOT HIM SOME ICE WATER. AND WE PULLED HIM UP INTO HIS BED ALSO BED ALARM IS ON AND CURTAIN IS OPEN SO I CAN KEEP AN EYE ON HIM.
--- NOTE | 2021-10-03 19:11 | NUR ---
CHECKED PATIENT'S TAPED ATTEND AND IT WAS DRY. BED ALARM IS ON.
--- NOTE | 2021-10-03 19:38 | NUR ---
Patient in bed. Finishing vancomyacin drip. Appears in no distress. Denies needs at this time. Call light within reach. Bed alarm in place.
--- NOTE | 2021-10-03 23:22 | NUR ---
CHANGED CENTRAL LINE DRESSING WITH STERILE TECHNIQUE. PATIENT NEEDED CUEING AND DIRECTIONS TO TURN HIS HEAD TO THE SIDE DURING DRESSING CHANGE.
--- NOTE | 2021-10-04 | NUR ---
In bed resting. No signs of distress. Call light within reach. Patient had been confused while awake. Asking to leave bed to "find weed in car". Attempted to reorient patient without success. On RA. Bed alarm in place. Call light within reach.
--- NOTE | 2021-10-04 02:08 | NUR ---
Patient resting in bed. On RA. Call light within reach. Bed alarm on.
--- NOTE | 2021-10-04 03:00 | NUR ---
BED ALARM SET OFF, IN TO CHECK ON PT, PT WITH LEGS OFF THE BED, LIGHT ON TO SEE PT HAD BLOOD ON HIM, PT HAS PULLED HIS IV LINE FROM NECK, PRESSURE PLACED ON PTs NECK, CALLED FOR RN HELP IMMEDITALY, PRESSURE IN PLACE UNTIL RN TOOK OVER FOR DRESSING APPLICATION, CLEANED PT UP, PT ALSO INCONT OF URINE, NEW ATTENDS IN PLACE, BOOSTED, ICE WATER FILLED, BED ALARM IN PLACE
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
--- NOTE | 2021-10-04 05:02 | NUR ---
Patient has remained very confused throughout shift. Has not been sleeping. Has been having conversations with self in room. Bed alarm in place. Unable to reorient patient. Lung sounds are harsh in bases. Occasional cough noted. On RA. Infusing 3%NS at rate of 35 in L AC. Patient did not tolerate sling. Dressing in place over site of former central line. Has not been out of bed. Incontinent of bowel and bladder.
--- NOTE | 2021-10-04 08:00 | NUR ---
PT. IS AGGITATED THIS MORNING AND THIS NURSE ASSISTED PRESS SETUP OPERATOR WITH BLOOD DRAW. LEFT RESTING WITH ALARM ON
--- NOTE | 2021-10-04 08:30 | NUR ---
PT RESTING IN BED. PT INCONTINENT OF UNRINE. ARGELIA AND BRIEF CHANGED. BACK BRACE PUT ON. PT MOVED TO CHAIR W/ 2 PA. LINEN CHANGED. PT CALL LIGHT WITHIN REACH. NO FURTHER NEEDS AT THIS TIME.
--- NOTE | 2021-10-04 09:00 | NUR ---
REPORT RECEIVED FROM NIGHT RN AND PT. CARE RESUMED. PT. SPONTANEOUSLY SPEAKING TO PEOPLE NOT IN THE ROOM AND ANSWERS TO QUESTIONS ARE INAPPROPRIATE. HE APPEARS MORE CONFUSED THAN YESTERDAY. ATTENDS CHANGED AND BRACE PLACED ON PT. PT. AMBULATED WITH MAX 2PA TO THE CHAIR. ASSESSMENT COMPLETED AND MEDS ADMIN. CHAIR ALARM ON. PT. IS AGITATED AT TIMES. LEFT RESTING WITH CURTAIN OPEN AND CALL LIGHT IN REACH.
--- NOTE | 2021-10-04 10:48 | NUR ---
IV ABX infusing to PIV WNL. Pt disoriented to all at this time, unable to state , surroundings. Chair alarm in place.
--- NOTE | 2021-10-04 13:55 | NUR ---
ASSESSMENT COMPLETED. PT. IS UP IN THE CHAIR HE CONTINUES TO BE CONFUSED AND UNABLE TO FOLLOW COMMANDS. BUE HAVE INCREASED EDEMA AND RUESATURATED IN SEROSANGUINOUS DRAINAGE. PT. RECENTLY OBSERVED PICKING AT IT. REDRESSED WITH BLANCHEYN. PT. SWALLOWING PILLS WELL AND REFUSES FOOD, HE HAS DRANK SEVERAL CLEAR ENSURES IN PLACE OF MEALS. ASSISTED WITH REPOSITIONING. LEFT RESTING WITH CHAIR ALARM ON AND CALL LIGHT IN REACH.
--- NOTE | 2021-10-04 15:27 | NUR ---
PT. FOUND TO HAVE A HARDENED RAISED NODULE ON SCROTUM. HE DENIES PAIN IN THE AREA. WILL CONTINUE TO MONITOR.
--- NOTE | 2021-10-04 15:59 | NUR ---
PT HAD BM AND NEEDED DEPENDS CHANGED. UPON CHANGING DEPENDS HORSE RIDER'S REALISED SHOWER NEEDED. PT GOT INTO SHOWER CHAIR W/ 2 PA BY 2 HORSE RIDER'S. PT HAIR AND BODY WASHED AND DRYED. ABCESS SEEN ON PTS SCROTUM AND NURSE NOTIFIED. PATIENT CHANGED INTO NEW GOWN WITH NEW DEPEND. PT SAT INTO BED. PT HEAVY BREATHING. NURSE TOOK OVER AND IS ASSISTING PT IN ROOM.
--- NOTE | 2021-10-04 16:09 | NUR ---
PT. C/O SOB. BREATH SOUNDS MORE WET AND GURGLING. LUNGS COARSE THROUGHOUT. PULSE OX NOT READING WELL ON FINGER. RT CONTACTED AND PULSE OX PLACED ON EAR. 02 SAT IS 90% AT REST. PT. ARMS ELEVATED. RUE INCREASED EDEMA AND PULSE FOUND WITH DOPPLER. PT. WILL CONTINUE TO MONITOR.
--- NOTE | 2021-10-04 20:44 | NUR ---
pt resting, no distress, bed alarms on
--- NOTE | 2021-10-04 21:15 | NUR ---
2114 PT MOVED TO ROOM 110 FOR SAFETY. PT AWAKE, PROCEDURE EXPLAINED, COOPERATIVE.
--- NOTE | 2021-10-04 21:45 | NUR ---
vs taken, pt heavly incont of urine, cleaned up, no further needs at this time pt has been settled to new room, 115 to 110
--- NOTE | 2021-10-04 21:51 | NUR ---
PT AWAKE, SEMI COOP WTIH ASSESSMENT. ON ROOM AIR, MOIST NON PRODUCTIVE COUGH FREQUENT, PT SWALLOWS HIS SPUTUM. LUNGS DIM SHALLOW BREATHING, IS AT BEDSIDE, ENCOURAGED TO USE, DECLINED. HOB ELEVATED TO COMFORT. HAD A BM EARLIER IN AM SHIFT, WAS INCONTINENT OF LARGE AMOUNT OF URINE AT THIS TIME. SKIN BARRIER,/CARE DONE. CLEAN ATTENDS IN PLACE. REPOSITIONED, HELPED. EDEMA TO R ARM, LIMITED MOTION/HX OF FX. OPEN AREAS AL ELBOW, OPEN TO AIR. ECHYMOTIC R [facility] TO WRIST AREA AND LEFT ARM , ALLEVYN TO L WRIST AREA,PLUS ECHYMOTIC BRUISED AREAS OVER OTHER PARTS OF BODY, RED AREA BUTTOCKS, BARRIER CREAM APPLIED. 2SL LFA. IVF IWTRH 40MEQ K STARTED AT THIS TIME. 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 PT INSTRUCTED SEVERAL TIMES.
--- NOTE | 2021-10-05 00:10 | NUR ---
pt awake watching tv, no c/o, ivf infusing. call light and liquids at hands reach
--- NOTE | 2021-10-05 02:15 | NUR ---
IN TO ASSIST RN WITH CHANGING PT DUE TO INCONT, BED ALARM REMAINS IN PLACE, NO FURTHER NEEDS AT THIS TIME
--- NOTE | 2021-10-05 02:18 | NUR ---
inc of urine, attends and gown changed. skin care, moist non prod cough present, coop with assessment, coarse lung sound howb elevated onroom air. call ligth and fluids t ashu r arm edema, in pillow. refused sling. moves LE.
--- NOTE | 2021-10-05 04:49 | NUR ---
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 has weeping wounds in arsm, R arm edema, tenderness, weeping areas ss drainage. has aquacell, and allevyn dressings over SARAH and elbow area, edema 2+ arm and hand. allevyn to L wrist and GILBERTO. SL patent, IVF infusing w/o problems. both areas covered with manjinder wrap as pt took coban off and was picking at iv sites. bruising over arms, chest improving. turns and repositioned, has been incontinent of urine several times, lotion to red peir area. semicooperataiv with cleaning due to R arm discomofrt but declines pain meds "they dont work" staed. tolerating liquids well, no emesis. On room air, moist non productive cough present, lungs coarse bilat, no sob with exertion call light and
--- NOTE | 2021-10-05 07:41 | NUR ---
PT SLEEPING SOUNDLY AT TIME OF SHIFT EXCHANGE, LEFT UNDISTURBED. BREATHING EVEV AND UNLABORED CALL LIGHT IN REACH.
--- NOTE | 2021-10-05 08:00 | NUR ---
PATIENT UP IN CHAIR AFTER AM CARES. NO OTHER NEEDS AT THIS TIME. CHAIR ALARM ON, CALL LIGHT IN REACH.
--- NOTE | 2021-10-05 09:44 | NUR ---
PT IS UP IN THE CHAIR REFUSES BREAKFAST AND OFFERS OF OTHER CHOICES. AGREES TO MORE COFFEE. PT NON-RESPOSIVE TO SEVERAL QUESTIONS BUT DOES ANSWER "NO" WHEN ASKED IF HE IS IN PAIN. ALSO SAYS "NO" WHEN THIS FRAME STRIPPER ANNOUNCED A DRESSING CHANGE TO HIS HAND. REISTIVE TO IV ABX WELL, BUT THEY ARE INFUSING AT THIS TIME. PT WATCHING TV. CALL LIGHT IN LAP. DOES NOT RESPOND WHEN ASKED IF ANYTHING CAN BE BROUGHT.
--- NOTE | 2021-10-05 09:51 | NUR ---
PATIENT UP IN CHAIR HAVING COFFEE, VITALS AND I/O'S COMPLETED. NO OTHER NEEDS AT THIS TIME. CALL LIGHT WITHIN REACH.
--- NOTE | 2021-10-05 11:29 | NUR ---
PT CONTINUES UP IN THE CHAIR MORE VERBAL AT THIS TIME, REQUESTS TO GO TO THE BATHROOM. BSC PROVIDED PT WAS INCONTINENT OF STOOL. WORKING WITH P/T PT RESPONDS "YES" WHEN OFFERED TYLENOL.
--- NOTE | 2021-10-05 13:17 | NUR ---
PT CONTINUES UP IN THE CHAIR BACK AND ARM BRACES ARE IN PLACE. NOON MEAL SERVED
--- NOTE | 2021-10-05 13:20 | NUR ---
PT RESTING IN CHAIR. VITALS AND I'S AND O'S COMPLETED. NO COMPLAINTS. CALL LIGHT WITHIN REACH. NO FURTHER NEEDS AT THIS TIME.
--- NOTE | 2021-10-05 15:21 | NUR ---
PT CONTINUES UP IN THE CHAIR THIS SHIFT, OFFERED TO ASSIST HIM TO THE BED FOR A TIME HE REFUSES. REPOSITIONED FOR COMFORT.
--- NOTE | 2021-10-05 17:10 | NUR ---
PT UP IN THE CHAIR WATCHING TV. REQUESTS H20 REFILL REFUSES OFFER OF FOOD ITEMS OF CHOICE. AGREES HE IS COMFORTABLE AT THIS TIME
--- NOTE | 2021-10-05 18:33 | NUR ---
PT CONTINUES IN THE CHAIR, AGAIN REFUSES BED. BACK BRACE AND SLING IN PLACE. PT DOES NOT EAT EVENING MEAL BUT DRINKS ENSURE. 2ND ENSURE BROUGHT TO CHAIR SIDE. HE REFUSES OFFER OF OTHER FOOD ITEMS.
--- NOTE | 2021-10-05 18:39 | NUR ---
PATIENT BACK IN BED AFTER DINNER. VITALS AND I/O'S COMPLETED. BED ALARM ON. BRACE TAKEN OFF. NO OTHER NEEDS AT THIS TIME. CALL LIGHT WITHIN REACH.
--- NOTE | 2021-10-05 22:12 | NUR ---
pt on room air, repostiioned in bed, moist non productive cough in place, lungs with crackles and dim at bases much improved than yesterday. denies CP . much more coop with procedures, all procedures explained prior to. R arm edema2+, bruising w allevyn and aquacell in place Declines sling at this time. bruising both hips, chest and L arm, bruising edema and 1+ Allevyn to R wrist and elbows in place, 2 SL patent, flushed easily. Incontinent of urine, red maddie, barrier cream to area, clear attends, gown changed. tolerated meds with applesauce, and sips of fluids, floated in pillows. Cont wih Contact MRSA+ Isolation precautions in place. call light and fluids at hands reach.
--- NOTE | 2021-10-05 22:17 | NUR ---
Tylenol given per R arm pain,
--- NOTE | 2021-10-06 00:49 | NUR ---
Resting, hob elevated, eyes closed, no distress, on room air. R arm elevated in pillows. bed alrm on, fluid and call light at hands reach, cont on isolation precautions
--- NOTE | 2021-10-06 03:04 | NUR ---
RESTING, EYES CLOSED, NO RESPIRATORY DISTRESS, HOB ELEVATED, CALL LIGHT AND FLUIDSA T BEDSIDE, R ARM IN PILLOW
--- NOTE | 2021-10-06 05:30 | NUR ---
pt turned and repositioned, incontinent of urine, clean attends in place. very cooperative, calm, tolerated clear ensure drink, no cough, hob elevated.
--- NOTE | 2021-10-06 05:44 | NUR ---
Pt on contact isolation precautions BC + MRSA. Pt on room air, lungs dim at bases fine crackles at this time, moist non productive cough present off and on. tolerating clear ensures and sips of fluids, no cough afterwards. hob elevated for aspiration precautions. R arm edema, tender, declines sling at HS, pt to wear back brace when up. Bruising and edema, limited mobility R arm, humeral fx. palpable but faint radil pulses R arm. bruising over R and L shoulder, arms, chest, hips, outer knees area, multiple allevyn and aquacell dressings over arms due to ss weeping. 2 SL patent LA, covered with manjinder wrap to protect IVs. very cooperative, alert to name and situation, following instructions, Flat affect. fall precautions in place, call light at hands reach. fluid at hands reach.
--- NOTE | 2021-10-06 07:14 | NUR ---
PT RESTING SOUNLDY AT SHIFT REPORT. LEFT UNDISTURBED, APPEARS COMFORTABLY RESTING. CALL LIGHT AND NEEDED ITEMS IN REACH.
--- NOTE | 2021-10-06 08:40 | NUR ---
PT UP TO THE CHAIR BACK AND ARM BRACES IN PLACE. APPEARS MUCH IMPROVED TODAY RESPONDING APPROPRIATELY, EVEN CALLING THIS [employer] DEVELOPER BY NAME. BREAKFAST IS SERVED, PT DRINKS AN ENSURE EARLIER BEFORE MORNING MEDS. CALL LIGHT IN REACH DENIES OTHER NEEDS OF AT THIS TIME
--- NOTE | 2021-10-06 10:05 | NUR ---
INTO ROOM TO CHECK ON PATIENT, PATIENT SITTING IN CHAIR. PATIENT WATCHING TV AND EATING BREAFAST. REVISITED OUR CONVERSATION ON WEDNESDAY REGARDING PLACEMENT. PATIENT IS STILL AGREEABLE TO PLACEMENT AT THIS TIME. HE IS ALSO AGREEABLE FOR CONTACTING [facility] TO DISCUSS BODY CLEANER MEDICAID. PATIENT ASKING HOW ROSE (FRIEND AND LANDLORD) FEELS ABOUT HE PLACEMENT. I ADVISED THE PATIENT THAT I HAD SPOKE WITH ROSE LAST WEEK AND THIS AM. ROSE AGREES THAT PATIENT NEEDS PLACEMENT FOR MORE ADEQUATE CARE HE IS NO LONGER ABLE TO LIFT THE PATIENT IN THE HOME. I ADVISED PATIENT THAT I WILL UPDATE ROSE ABOUT HIS PLACMENT SOON WE HAVE AN ANSWER. PATIENT AGREES. NO FURTHER NEEDS AT THIS TIME.
--- NOTE | 2021-10-06 10:32 | NUR ---
PT UP IN THE CHAIR WORKING WITH O/T
--- NOTE | 2021-10-06 11:16 | NUR ---
PT WORKS WITH P/T THEN REQUESTS TO LAY DOWN FOR A TIME. RESTING IN BED NOW EYES CLOSED
--- NOTE | 2021-10-06 12:23 | NUR ---
PT SLEEPING SOUNDLY
--- NOTE | 2021-10-06 13:55 | NUR ---
PT SLEEPING SOUNDLY AT TIME MEAL IS SERVED. WAKES LATER REFUSES MEAL, OFFERED NEW FOOD, DIFFERENT FOOD, HEAT TIMES UP, HE CONTINUES TO REFUSE. ENSURE SERVED, HE SEEMS TO DO WELL WITH THESE AND HAS DRANK 3 OF THEM THIS SHIFT. PT RESETING IN BED, ANTICIPATE SHOWER SOON. DENIES NEED OF ANYTHING
--- NOTE | 2021-10-06 15:10 | NUR ---
SPOKE WITH TILA AT [facility] REGARDING BIBLE WORKER MEDICAID. TILA WILL CALL BACK TO SPEAK WITH THE PATIENT TODAY OR TOMORROW.
--- NOTE | 2021-10-06 16:39 | NUR ---
PT TO THE SHOWER 2PA WELL WASHED AND RETURNS TO BED REFUSES CHAIR SAYS HE WANTS TO REST. ALL DRESSINGS CHANGED. DR CALERO IN TO SEE PT. PT ENCOURAGED TO COUGH AND CLEAR HIS LUNGS. USES I/S WITH ASSIST.
--- NOTE | 2021-10-06 18:50 | NUR ---
PT REFUSES EVENING MEAL, ENSURE PROVIDED. REQUESTS URINAL UNABLE TO VOID AT THAT TIME REQUESTS HE HAVE SOME PRIVACY.
--- NOTE | 2021-10-06 19:06 | NUR ---
WE GAVE PATIENT A SHOWER AROUND FOUR THIS AFTERNOON. WE DID EVERYTHING. ALSO BED LINENS WERE CHANGED BY NURSE. AFTER SHOWER PATIENT WANTED TO GO BACK TO BED.
--- NOTE | 2021-10-06 19:31 | NUR ---
RECEIVED REPORT FROM DAY SHIFT RN. PATIENT IS RESTING IN BED WITH EYES CLSOED, RR 17. CALL LIGHT IN REACH.
--- NOTE | 2021-10-06 21:50 | NUR ---
PATIENT ASSESMENT COMPLETED. PATIENTS VITALS TAKEN AND RECORDED. INTAKE AND OUTPUT RECORDED. PATIENTS PM MEDS GIVEN IN APPLESAUCE. PATIENT DENIES ANY PAIN. PATIENT IS USIING URINAL IN BED AT THIS TIME. FRESH WATER PROVIDED. RIGHT ARM IN SLING. NO FURTHER NEEDS NOTED. AT THIS TIME. CALL LIGHT IN REACH.
--- NOTE | 2021-10-06 23:20 | NUR ---
2pa. THIS PRODUCT OPERATIONS ASSOCIATE AND PRIMARY RN KARI CHANGED PATIENT'S INCONTINENT URINE AND BM AND PLACED FRESH ATTENDS AND APPLIED BARRIER CREAM. PATIENT REPOSITIONED PILLOWS ON HIS RIGHT SIDE. GOWN CHANGED. CALL LIGHT ON HANDS REACH.
--- NOTE | 2021-10-06 23:36 | NUR ---
PATIENT INCONT URINE. PATIENT ALSO VOIDED SMALL AMOUNT IN URINAL. VENESSA CARE COMPLETED. PATIENT REPOSITIONED IN BED. NO FURTHER NEEDS NOTED. CALL LIGHT IN REACH.
--- NOTE | 2021-10-07 02:14 | NUR ---
PATIENT IS RESTING IN BED WITH EYES CLOSED, RR 15. CALL LIGHT IN REACH.
--- NOTE | 2021-10-07 03:34 | NUR ---
PATIENTS ATTEND CHANGED AND VENESSA CARE COMPLETED. PATIENT REPOSITIONED IN BED. PATIENT DENIES ANY NEEDS. FRESH ICE WATER PROVIDED. NO FURTHER NEEDS NOTED. CALL LIGHT IN REACH.
--- NOTE | 2021-10-07 03:41 | NUR ---
2PA. CHANGED INCONTINENT ATTENDS AND CHUX. PATIENT REPOSITIONED. ICE WATER REFILLED. CALL LIGHT WITHIN REACH.
--- NOTE | 2021-10-07 06:40 | NUR ---
PATIENTS VITALS TAKEN AND RECORDED. ATTEND [facility] AND VENESSA CARE COMPLETED. PATIENTS INTAKE AND OUTPUT RECORDED. PATIENT REPOSITIONED IN BED. PATIENT DENIES ANY NEEDS. CALL LIGHT IN REACH.
--- NOTE | 2021-10-07 07:30 | NUR ---
THIS RN RECEIVED SHIFT REPORT FROM HARRISON PIERCE. PATIENT RESTING QUIETLY ON HIS RIGHT SIDE, EYES CLOSED, RESPIRATIONS ARE REGULAR AND EVEN, AND CALL LIGHT IS IN REACH. PATIENT HAS NO CARE NEEDS AT THIS TIME.
--- NOTE | 2021-10-07 08:45 | NUR ---
Spoke with Jairo. He remains agreeable to placement to a SNF or [facility], depending on what is available at discharge. I contacted [facility] and they will review his chart. Chart has also been faxed to Alexandr Garduno.
--- NOTE | 2021-10-07 08:54 | NUR ---
WENT IN THIS MORING CHANGED HIM AND HELPED HIM WASH HIS FACE AND USE MOUTH WASH. HE DID HIS IS THREE TIMES. AND HIS FIGUEROA TWICE. SET HIM UP FOR HIS BREAKFAST IN BED. ALSO OPENED EVERYTHING ON HIS TRAY. PATIENT IS NOW EATING.
--- NOTE | 2021-10-07 09:00 | NUR ---
THIS RN IN TO SEE PATIENT. PATIENT HAS C/O 8 LOW BACK AND RT ARM PAIN. 2.5MG PO XYCODONE GIVEN WITH OTHER AM MEDS IN APLESAUCE. PATIENT ATE 25% OF BREAKFAST. AM ASSESSMENT COMPLETE. PATIENT CONTINUES TO WORK ON HIS COFFEE AND DENIES ANY OTHER CARE NEEDS AT THIS TIME. CALL LIGHT IS IN REACH.
--- NOTE | 2021-10-07 11:13 | NUR ---
PATIENT UP IN THE BEDSIDE ARMCHAIR IN HIS BACK BRACE DRINKING COFFE AND WATCHING TV. PATIENT BACK PAIN HE SAYS IS "CONSIDERABLLY BETTER". PATIENT DENIES ANY OTHER CARE NEEDS AT THIS TIME. CALL LIGHT IN REACH.
--- NOTE | 2021-10-07 15:09 | NUR ---
PATIENT BACK IN BED NOW PATIENT WATED TO LAY DOWN AND TAKE HIS BACK BRACE OFF. AFTERNOON ASSESSMENT COMPLETE. PATIENT DENIES ANY CARE NEEDS AT THIS TIME AND JUST WANTS TO TAKE A NAP. CALL LIGHT IS IN REACH AND BED IS IN LOW POSITION. PATIENT CAN BE VISULAIZED IN BED FROM THE NURSES STATION DESK.
--- NOTE | 2021-10-07 17:10 | NUR ---
THIS RN IN AND GAVE 1700 ANTIBIOTIC IN APPLESAUCE AND PATIENT TOOK IT WITH EASE. DINNEER ARRIVING AND PATIENT READY TO EAT. CALL LIGHT IN REACH.
--- NOTE | 2021-10-07 18:06 | NUR ---
MARQUEZ SEVERINO IN WORKING WITH PATIENT AT THIS TIME. PATIENTHAS NO NURSE CARE NEEDS FROM THIS RN AT THIS TIME. CALL LIGHT IS IN REACH.
--- NOTE | 2021-10-07 18:59 | NUR ---
NURSE AND I CHANGED HIM ALSO HIS ARGEILA AND GOWN.
--- NOTE | 2021-10-07 22:25 | NUR ---
pt awake, watching tv, on room air, lungs dim at bases, no cough. tolerating meds with pudin, ensure clear liquids and fluids, R arm sling in place, edema much improved, dressing inplace, L arm bruising, dressing intact. 2 sl LFA patent, inc of urine, was changed, turned and repositionined, affect much better, cooperative
--- NOTE | 2021-10-08 00:32 | NUR ---
Resting, R arm slilng in place, much improved bruising and decreaed edema. elevated in pillows. eyes closed, call light at hands reach, fluids at bedside
--- NOTE | 2021-10-08 02:29 | NUR ---
hob elevated to comofrt, sling R arm, eyes closed, on room air, no distress. call light at hands reach. fluid at bedside. Continues on contact isolation precautions
--- NOTE | 2021-10-08 05:16 | NUR ---
pt awakened easily, no c/o pain, inc of large amount of urine, skin care. coop. much improved mentation and decreaed edema R arm and hand, occ moist non prod cough present
--- NOTE | 2021-10-08 05:21 | NUR ---
V/S AND I&O'S TAKEN AND RECORDED. CHANGED INCONTINENT ATTENDS. PATIENT REPOSITONED.
--- NOTE | 2021-10-08 05:22 | NUR ---
PT CONT ON CONTACT ISOLATION PRECAUTIONS BC+ MRSA. MUCH MORE COOPERATIVE,SLOW TO ANSWER QUESTIONS, ALL PROCEDURES EXPLAINED, HELPFUL. ON ROOM AIR, LUNGS FINE CRACKLES TO DIM AT BASES, OCC MOIST NON PRODUCTIVE COUGH PRESENT AT TIMES. TOLERATING LIQUIDS WELL, NO COUGH AFTERWARDS. MOVING L ARM MUCH BETTER. SLING R ARM, MUCH IMPROVED EDEMA AND DECREAED BRUISING BOTH ARMS, BACK AND CHEST. BRUISING HIPS, AND L INNER THIGH HEALING. ALLEVYN TO L HAND AND R ARM WITH OLD DRAINAGE. 2 SL LFA INTACT PATENT, COVERED WITH GAUZE FOR PROTECTION. PT INCONTINENT OF URINE SKIN CARE, BARRIER CREAM, CLEAN ATTENDS. HELPED WITH REPOSITIONING. CALL LIGHT AT HANDS REACH, FLUIDS AT HANDS REACH
--- NOTE | 2021-10-08 07:24 | NUR ---
THIS RN RECEIVED SHIFT REPORT FROM HARRISON ALCANTARA. PATIENT RESTING QUIETLY IN RESPIRATIONS ARE REGULAR AND EVEN, EYES ARE CLOSED, AND CALL LIGHT IS IN REACH. PATIENT HS NO NURSE CARE NEEDS AT THIS TIME.
--- NOTE | 2021-10-08 09:00 | NUR ---
THIS RN IN TO SEE PATIENT AND AM ASSESSMENT COMPLETE. PATIENT TOOK AM MEDS IN APPLESAUCE WITHOUT DIFFICULTY. BREAKFAST SET UP FOR PATIENT TO EAT. IV'S FLUSHED AND WNL. VS STABLE. PATIENT HAS NO C/O PAIN. SLING REMAINS IN PLACE ON RIGHT ARM. PATIENT DENIES ANY OTHER CARE NEEDS FROM THIS RN AT THIS TIME. CALL LIGHT IS IN REACH.
--- NOTE | 2021-10-08 11:28 | NUR ---
BASSAM AND GÓMEZ TIRE FABRIC INSPECTOR'S IN CHANGING PATIENT FOR LARGE INCONTINENCE OF URINE. PATIENT HAS REFUSED TO GET OUT OF BED TODAY. OT TRIED TO WORK WITH PATIENT FOR 30 MINUTES AND PATIENT WOULD NOT GET UP. THIS RN HAS INFORMED PATIENT HE NEEDS TO GET OUT OF BED AND PATIENT REFUSED VERBALLY AND THEN JUST STOPPED PAYING ATTENTION TO ME. MAYCOL AND GÓMEZ HAVE ALSO JUST TRIED TO GET HIM UP AND THE PATIENT HAS REFUSED. PATIENT'S CALL LIGHT IS IN REACH AND HAS NO NURSING NEEDS FROM THIS RN AT THIS TIME.
--- NOTE | 2021-10-08 11:33 | NUR ---
PT WAS INCONT OF URINE IN BRIEF. THIS CNA2 ALONG W/UNDERBASTER CHRISTOPHER PERFORMED VENESSA CARE ON PT. CHANGED BRIEF & INCONT PAD. PT WAS ABLE TO LIFT HIPS & MOVE INDEPENDENTLY. PT REFUSED TO GET UP INTO CHAIR. NO OTHER REQUESTS. CALL LIGHT IN REACH.
--- NOTE | 2021-10-08 12:28 | NUR ---
PATIENT RESTING QUIETLY IN BED WATCHING TV. PATIENT HAS BEEN IGNORING STAFF WHEN TRYING TO INTERACT. THIS RN HAS GIVEN REPORT TO HARRISON VANN WHO WILL BE TAKING OVER CARE AT 1PM. PATIENT HAS NO NURSE CARE NEEDS AT THIS TIME. CALL LIGHT IS IN REACH.
--- NOTE | 2021-10-08 15:20 | NUR ---
PT. ASSISTED WITH PUTTING ON BACK BRACE. AMBULATED WITH SBA AND NINI WALKER TO THE CHAIR ABOUT 7 STEPS. TOLERATED WELL AND STEADY GAIT. BROUGHT ENSURE AND BLANKET. LEFT RESTING WITH ALARM ON.
--- NOTE | 2021-10-08 15:49 | NUR ---
Spoke with [facility], Nimco Boyce. She was able to complete inital assessment with Jairo today and will set up a financial eval for tomorrow. Let her know I have been in contact with [facility] and Tonja RN, was planning on seeing pt tomorrow. She asks I let her know if they will accept as she can then assign someone to the case. It depends on where pt is going. I will call her tomorrow after Tonja visits. Texted Tonja and she will see pt in the am.
--- NOTE | 2021-10-08 15:51 | NUR ---
Spoke with Dr. Conti and gave update as he is checking for any movement on this pt. Let him know, [facility] will eval tomorrow. He asks if pt could go to a SNF and I let him know as of yesterday there are 0 SNF beds available in a 70 mile radius. Also pt would not be able to go to [place] as he as [facility] as his secondary. I have sent his chart to [facility], but there has been 0 response. There will be one bed open at [facility] in [place] on Wednesday, pt that bed has already been filled if the pt discharges. I did call [facility] in [place] and spoke with Raegan. She states there is a very slight possibilty they could have a bed open. It would be available only if [facility] does not have a placement. I faxed the chart and she will let me know tomorrow if the bed opens for Wednesday.
--- NOTE | 2021-10-08 17:47 | NUR ---
PATIENT REFUSED TO EAT DINNER, GIVEN ZOFRAN BECAUSE, "THIS DINNER IS MAKING ME SICK." PATIENT BACK TO BED WITH 1PA AND NINI-WALKER. PATIENT INCONTINENT OF URINE, NEW ATTENDS IN PLACE AND BED ALARM IS ON. PATIENT IS SIPPING ON ENSURE AND WATCHING TV.
--- NOTE | 2021-10-08 18:37 | NUR ---
PATIENT GIVEN 2.5MG OF OXYCODONE FOR 8/10 RIGHT ARM PAIN.
--- NOTE | 2021-10-08 18:50 | NUR ---
TIA AND I JUST CHANGED PATIENT AND PUT A PILLOW UNDER HIS ARM AND ALSO FLOATED HIS HIPS.
--- NOTE | 2021-10-08 19:15 | NUR ---
REPORT RECEIVED FROM SOO. PT IS AWAKE AND IN BED. CALL LIGHT IIS IN HIS HAND. NO NEEDS AT THIS TIME.
--- NOTE | 2021-10-08 21:15 | NUR ---
PT IS C/O PAIN IN HIS BACK AND SHOULDER THAT THE PREVIIOUS PAIN MEDS DID NOT RELIEVE. DR CALERO WAS CALLED AND HIS PO PAIN MED ORDER WAS CHANGED. PT WAS GIVEN THE EXTRA DOSE ORDERED.
--- NOTE | 2021-10-08 23:40 | NUR ---
PT IS AWAKE AND WATCHING TV. HOLDING HIS CALL LIGHT.
--- NOTE | 2021-10-09 01:42 | NUR ---
PT FINISHED HIS CHOCOLATE ENSURE. HE WAS INCONTINENT OF URINE AND WAS CLEANED AND CHANGED. THE CHUX UNDER HIM WAS WET WELL AND WAS CHANGED. PT TOLERATED THE MOVING AND TURNING WELL. BED ALARM IS ON.
--- NOTE | 2021-10-09 03:44 | NUR ---
bed alarm going off, this rn in room to assess. pt reoriented to date and time. bed alarm resumed, pt talking about going home, states, "oh you better just let me go...i think i'm due for a beer". pt updated on poc. no additional needs verbalized. call light in reach.
--- NOTE | 2021-10-09 07:30 | NUR ---
REPORT RECEIVED FROM NIGHT RN - PT RESTING IN BED ASLEEP, RR EVEN AND UNLABORED, CALL LIGHT IN REACH. NEAR NURSES STATION WITH BED ALARM ON.
--- NOTE | 2021-10-09 08:45 | NUR ---
RN IN ROOM TO ASSESS PT - SCHEDULED MEDS ADMINISTERED. PT UP IN CHAIR WITH BACK BRACE AND ARM SLING IN PLACE. PT ASKING TO "GET OUT OF HERE", TALKS OF PARKING TRUCK "JUST OVER THERE", TALKING ABOUT A CHILD HE NEEDS TO GET BACK TO. RN AND TOWNSHIP CLERK ATTEMPT TO REORIENT PT. IV SITES X2 FLUSH WITHOUT DIFFICULTY. ALLYVNS IN PLACE, DRAINAGE NOTED ON SEVERAL, WILL CHANGE. PT UP TO BATHROOM USING HEMIWALKER AND TOWNSHIP CLERK STANDBY - ATTENDS CHANGED - INC URINE.
--- NOTE | 2021-10-09 09:09 | NUR ---
Pt watching TV and eating. Denies need. Awaiting visit from [facility].
--- NOTE | 2021-10-09 11:06 | NUR ---
Notified by Charge nurse pt is wanting to leave AMA. Discussed he cannot return to where he has been staying with his friend Lele. She asks I speak with pt. Called and spoke with Lele and he states pt cannot return, but he will visit him. Called [facility] and asked if they could visit and do a mental health assessment.
--- NOTE | 2021-10-09 11:06 | NUR ---
PT USES CALL LIGHT TO REQUEST HELP GOING TO BATHROOM - PT THEN ATTEMPTED TO LEAVE ROOM TO LEAVE AMA. RN'S AND SECURITY ABLE TO REDIRECT PATIENT TO WAIT UNTIL CM AND DR. CALERO COULD SPEAK TO HIM. CM IN TOUCH WITH ROSE AND OTHER RESOURCES. PT SITTING ON EDGE OF BED WITH SECURITY AT BEDSIDE - PT PROVIDED ENSURE DRINK.
--- NOTE | 2021-10-09 11:35 | NUR ---
Lele here and spoke with pt. Pt stating he wants to go and Lele let him know he cannot cont. to provide his care. Pt would like to see his little dog, Geo. Lele states he will bring him in.
--- NOTE | 2021-10-09 11:37 | NUR ---
PT RESTING IN BED WATCHING TV - FRIEND ROSE LEFT TO GO GET HIS DOG TO VISIT - PT CALM AT THIS TIME.
--- NOTE | 2021-10-09 12:20 | NUR ---
Felipe Hernández here from [facility] to evaluate pt. Updated on pts diagnosis and behaviors. He was able to evaluate and states pt is not a harm to self or others. If he wants to leave he will be able to do so. He also reports pt would not be placeable to any mental health program due to his illness and comorbidities. Pt has settled down at this point and is agreeable to placement to a SNF if available.
--- NOTE | 2021-10-09 13:00 | NUR ---
FRIEND ROSE IN ROOM WITH PTS SARBJIT HERRY TO VISIT. PT APPEARS VERY HAPPY BY THIS.
--- NOTE | 2021-10-09 14:00 | NUR ---
Called and spoke with Raegan from [facility] in [place]. They will not accept this pt due to his flight risk. They are requiring all pts to be on a 14 day isolation even when they are vaccinated. Agreed pt would not be able to tolerate this. Awaiting [facility] to visit pt for eval.
--- NOTE | 2021-10-09 15:42 | NUR ---
PT REQUESTS PRN PAIN MEDICATION AND NICOTINE LOZENGE - STATES PAIN MED IS "NOT DOING NOTHIN". OFFERED ICE PACK AND HEAT PACK - DENIED. PT REPOSISTIONED IN BED WITH BACK BRACE OFF. CALL LIGHT IN REACH.
--- NOTE | 2021-10-09 16:49 | NUR ---
RN ROUNDING ON PT - WATCHING TV IN BED, NO DISTRESS NOTED. CALL LIGHT IN HAND.
--- NOTE | 2021-10-09 18:33 | NUR ---
RN IN ROOM TO OBTAIN VS/I&O. PT INC OF URIN IN BED - FULL LINEN CHANGE AND GOWN. PT BACK TO BED, DENIES FURTHER NEEDS. BP ELEVATED BUT SUSPECT IT WAS FROM RECENT MOVEMENT OUT OF BED TO CLEAN UP. PT CONTINUES TO HAVE MINIMAL FOOD INTAKE BUT DRIKING LOTS OF FLUID. CALL LIGHT IN REACH.
--- NOTE | 2021-10-09 20:22 | NUR ---
Pt onroom air, lungs with crackles at bases, tolerating liquids well, occ moist non productive cough present. ensure given took meds iwth pudin. R arm decreased edema noted, improving/resolving bruising R arm, axilla, hands, L arm back and bilat hips. moving hands well, allevyn dressing to L hand, bandaid L elbow came off, scabbed over area dry. moist areas R arm abd applied, sling R arm, good cms, 2 SL LFA, patent, was inc of urine, wanted urinal but when nurse went to applied he was already urinating at that time. and he voided large amount of yellow urine while being changed. Irritable but redirectable. call light and fluids at hands reach
--- NOTE | 2021-10-09 22:00 | NUR ---
PT IRRITBLE, 'WHEN CAN I GET OUT OF HERE'. EXPLAINED THAT HE NEEDS HELP RECOVERING FROM FX/PT, AND WE ARE LOOKING FOR PLACEMENT . ANGRY, REDIRECTABLE WHEN INSTRUCTED AGAIN ON ABOVE. TOLERATING CLEAR ENSURES. CALL LIGHT AT HANDS REACH. SLING IN PLACE L ARM ELEVATED IN PILLOWS.
--- NOTE | 2021-10-09 23:20 | NUR ---
pt WAVED THIS RN INTO ROOM, pt STATES, "YOU GOTTA GET ME A PHONE SO I CAN CALL MY NATHANAEL AND GET HOME". pt THEN STATES, "I'M HERE FOR THE MEETING, THE NO FALL MEETING". pt REORINETED TO PLACE AND TIME AND SITUATION, BED ALARM REMAINS ON AND CALL LIGHT IN REACH. WILL CONTINUE TO MONITOR. CALL LIGHT IN REACH.
--- NOTE | 2021-10-09 23:57 | NUR ---
awake, moving all extremities well, pt is dressed in street clothes which he dressed himself earlier when he tried to leave facility and was redirected back to room. sling in place R arm pt moving arm. cont to ask when he can be dc'd, alert to self only, reoriented, calmer. cont on contact precautions isolation and fall precautions
--- NOTE | 2021-10-09 23:58 | NUR ---
dr arambula at rn station, made aware of evening sbp of 183 before receiving scheduled po cardiac med by primary rn caryl. no new orders received at this time. will continue to monitor.
--- NOTE | 2021-10-10 05:04 | NUR ---
turned and repositioned, incontinent of urine, skin care done, barrier cream, [facility], irritable mood. call light at handsa reach
--- NOTE | 2021-10-10 05:05 | NUR ---
Pt on room air, lungs crackles at bases, moist non productive cough present, aspiration precautions. tolerated fluids well. 2 sl patent,edema and bruising R arm resolving, ss drainage from r arm several areas weeping, abd to area. allevyn to several other areas both R and L arm. bruising r axilla, back, L arm, hips and inner R hip area healing. Sling R arm, Pt to wear brace when up. Pt did dressed up himself last night, took brace off, did not wear back brace, used hemiwalker and tried to leave facility, walking unsteady . redirected bycharge nurse and male RN, went back to room, c/o that "I need to go and check on my dog, my car may get stolen, I need to get out of here" redirectable went back to bed, irritable mood most of this night. call light at hands reach, bed alarm on. cont on contact isolation
--- NOTE | 2021-10-10 08:02 | NUR ---
PATIENT UP IN CHAIR AFTER CHANGING UNDERGARMENTS AND USING RESTROOM. CHAIR ALARM ON, WELL SLING AND BACKBRACE. NO OTHER NEEDS AT THIS TIME, CALL LIGHT IN REACH.
--- NOTE | 2021-10-10 08:23 | NUR ---
SPOKE WITH MISSAEL TERRY AT [facility]. THEY WILL NOT BE COMING TO EVALUATE THE PATIENT AFTER REVIEW OF NOTES. PER MISSAEL TERRY PATIENT DECLINED DUE TO STAFFING.
--- NOTE | 2021-10-10 08:30 | NUR ---
REPORT RECEIVED FROM NIGHT RN AND PT. CARE RESUMED. PT. IS ALERT AND ORIENTED. HE IS EATING BREAKFAST IN THE CHAIR. ASSESSMENT COMPLETED. DISCUSSED MEDS, POC, AND SAFETY. PT. DENIES FURTHER NEEDS. LEFT RESTING WITH CALL LIGHT IN REACH.
--- NOTE | 2021-10-10 08:38 | NUR ---
[facility]KE [facility] PER JUAQUIN THEY ARE WILLING TO REVIEW THE PATIENT CHART, BUT HAVE A WAITLIST FOR MEDICAID BEDS AT THIS TIME. CHART FAXED FOR REVIEW. CONTACTED [facility], NO BEDS AVAILABLE AT THIS TIME.
--- NOTE | 2021-10-10 09:20 | NUR ---
PATIENT IN BED,RESTING. VITALS AND I/O'S COMPLETED. NO OTHER NEEDS AT THIS TIME. CALL LIGHT WITHIN REACH.
--- NOTE | 2021-10-10 10:00 | NUR ---
SPOKE WITH TILA AT [facility]. UPDATE GIVEN THAT [facility] HAS DECLINED AT THIS TIME. DISCUSSED CASE MANAGEMENT TO CONTACT [facility] AND [facility] TODAY FOR POSSIBLE PLACEMENT. UPDATED TILA OF PATIENT NEEDS BASED ON PT/OT NOTES. FINANCIAL ASSESSMENT SCHEDULE FOR 10/13/21 AT 1430. BYRON MEIER RN UPDATED.
--- NOTE | 2021-10-10 10:49 | NUR ---
pt reporting 10/10 pain in right arm/sholder/hip. 2.5mg oxycodone admisntered. pt watching tv and being cooperative. bed alarm on and call light in reach.
--- NOTE | 2021-10-10 11:58 | NUR ---
PT ALERT, SITTING UP IN BED WATCHING TV. PT HAVINGA BETTER DAY, PLEASANT, JUST TIRED OF BEING HERE. PT MENTIONED HE WAS JUST TRYING TO COPE. GAVE COMFORT AND ENCOURAGEMENT. WILL FOLLOW
--- NOTE | 2021-10-10 13:10 | NUR ---
PATIENT LYING IN BED. VITALS AND I/O'S COMPLETED. NO OTHER NEEDS AT THIS TIME. CALL LIGHT WITHIN REACH.
--- NOTE | 2021-10-10 13:21 | NUR ---
UPDATED ABOUT ELEVATED BLOOD PRESSURES. WILL CONTINUE TO MONITOR
--- NOTE | 2021-10-10 14:37 | NUR ---
REFERRAL FOR PLACEMENT FAXED TO [facility] AND [facility]. PER STAFF AT [facility] THEY CURRENTLY HAVE A WAITING LIST, BUT THEY WILL REVIEW THE CHART. LEFT MESSAGE FOR [facility] IN [facility] TO CHECK BED AVAILABILITY.
--- NOTE | 2021-10-10 16:54 | NUR ---
pt. c/o right back pain. admin pain med. and water. will continue to monitor.
--- NOTE | 2021-10-10 20:32 | NUR ---
on room air, inc of urine, changed, r arm sling inplace, c/o pain, medicated with oxycodone 2.5mgpo
--- NOTE | 2021-10-10 22:47 | NUR ---
ON CONTACT ISOLATION PRECAUTIONS, R ARM IN SLING, ELEVATED IN PILLOWS. ABD IN PLACE BELOW R ELBOW DUE TO WEEPING AREA, DRAINAGE SMALL AMOUNT SS DRAINAGE. EYES CLOSED, ON ROOM AIR, NO DISTRESS. CALL LIGHT AT HANDS REACH
--- NOTE | 2021-10-11 00:24 | NUR ---
PT RESTING, EYES CLOSED, SLING R ARM, CALL LIGHT AND FLUIDS AT BEDSIDE, BED ALARM ON.
--- NOTE | 2021-10-11 02:30 | NUR ---
used call light, wanted a chocolate ensure, given. cooperative, inc of urine, changed. cooperative, sling in R arm
--- NOTE | 2021-10-11 05:43 | NUR ---
Pt on room air, lungs dim at bases, fine crackles, moist non prod cough present, healing bruising and edema R arm, sling in place, abd in below elbow due to ss drainage. edema to hands 1+. bruising improving. Was medicated with Oxycodone per R arm pain, effective.2 SL patent. inc of large amunt of urine, skin care, clean attends, gown and bedding changed. toleraring liquids well, moving l arm more. wears brace when up. cooperative, less irritable. uses call light, 1pa/hemiwalker. Cont on contact precaution isolation
--- NOTE | 2021-10-11 08:01 | NUR ---
PATIENT IN CHAIR WAITING FOR BREAKFAST, AM CARE COMPLETED. BACK BRACE ON, CALL LIGHT WITHIN REACH.
--- NOTE | 2021-10-11 08:54 | NUR ---
PATIENT BACK IN BED AFTER BREAKFAST. NO OTHER NEEDS AT THIS TIME, CALL MOIRA HARDY.
--- NOTE | 2021-10-11 09:46 | NUR ---
PATIENT IN BED RESTING. VITALS AND I/O'S COMPLETED. NURSE NOTIFIED OF HIGH BP. NO OTHER NEEDS AT THIS TIME. CALL LIGHT WITHIN REACH.
--- NOTE | 2021-10-11 09:54 | NUR ---
PATIENT IN BED RESTING. HAS NO OTHER NEEDS AT THIS TIME. VITALS AND I/O'S COMPLETED. CALL LIGHT WITHIN REACH.
--- NOTE | 2021-10-11 10:14 | NUR ---
INFORMED DR KAMARA OF BP 197/78 HR 91. PT SCHEDULED COREG AND SPIRONOLACTONE TO BE GIVEN. WILL REASSESS AFTER MED ADMINISTRATION.
--- NOTE | 2021-10-11 10:32 | NUR ---
MORNING ASSESSMENT COMPLETE. PT LYING IN BED WITH EYES CLOSED, AWAKENS TO VOICE. SLING IN PLACE ON RIGHT ARM, BRUISING NOTED. ALLEVYN TO RIGHT UPPER ARM AND LEFT HAND, DRESSING INTACT. L FOREARM AND L WRIST IV FLUSHED, DRESSING CDI. PT DENIES NEEDS AT THIS TIME. CALL LIGHT IN REACH, BED ALARM ON.
--- NOTE | 2021-10-11 10:32 | NUR ---
PT BP 175/77 HR 88 AFTER SCHEDULED BP MEDICATIONS
--- NOTE | 2021-10-11 11:32 | NUR ---
PT RESTING IN BED WITH EYES CLOSED, RESPIRATIONS EVEN AND UNLABORED. CALL LIGHT IN REACH, BED ALARM ON.
--- NOTE | 2021-10-11 13:08 | NUR ---
PT RESTING IN BED WITH EYES CLOSED, RESPIRATIONS EVEN AND UNLBAORED. AWAKENS TO VOICE. CALL LIGHT IN REACH, BED ALARM ON.
--- NOTE | 2021-10-11 13:55 | NUR ---
NURSE KIMMY COMPLETED VITALS AND I/O'S. PATIENT IN BED. CALL LIGHT WITHIN REACH.
--- NOTE | 2021-10-11 17:38 | NUR ---
PT ASSISTED BACK TO BED FROM CHAIR BY ROYAL ZAYAS, VITAL SIGNS TAKEN. WARM BLANKETS PROVIDED. PT DENIES FURTHER NEEDS AT THIS TIME. CALL LIGHT IN REACH.
--- NOTE | 2021-10-11 17:44 | NUR ---
PATIENT BACK TO BED AFTER MEAL. SOME COMPLAINTS OF PAIN, NURSE NOTIFIED. BED ALARM ON, VITALS AND I/O'S COMPLETED. CALL LIGHT WITHIN REACH.
--- NOTE | 2021-10-11 19:15 | NUR ---
pt hob elevated to comofrt, on room air, eyes closed, sling r arm. on contact isolation
--- NOTE | 2021-10-11 22:04 | NUR ---
Pt on contact isolation precautions. MRSA + in BC. Awake.On room air, lungs dim at bases, moist non productive occassional cough present. R arm edema improving 1+ shoulder, FA and hand present,scabbed over dagoberto healing, no new moist areas at thist martha. Sling inplace.Clean new arm sling given due to old sling soiled with old drainage. bruising R arm, axilla, back, hips, L arm, inner L hip and scattered renee over chest healing. no new open areas L arm, scabbed over dagoberto healing, Allevyn L wrist with old drainage, allevyn R above elbow dagoberto . good CMS, Inc of large amount of urine, skin care, attends and gown changed. barrier cream. LE elevated w pillows, tolerating iquids well, no cough after drinking. hob elevated to comofrt. coopeartive, calm, helped with turning. repositioned in bed. no c/o pain at this time. call light and fluids at hands reach. Bed alarm in place, Pt alert to self, place semi aware of situation, stated "I want to go back to my place, my dog misses me". reminded that he still needs PT as he has an injured R arm. "I know, but I can still manage" stated. cont to reinofrce POC and fall precautions safety.
--- NOTE | 2021-10-12 00:16 | NUR ---
resting, no distress, eyes closed, call light by bedside
--- NOTE | 2021-10-12 03:05 | NUR ---
Awakes easily, on room air, no resp distress. R arm sling inplace, elevated in pillows, inc of urine, skin care, clean attends, repositioned in bed. call ligth and fluids at hands reach. Bed alarm on
--- NOTE | 2021-10-12 05:50 | NUR ---
Pt has slept well this shift. On room air, lungs dim at bases. moist non productive cough present. edemat and bruising R arm healing, scabbed over dagoberto healing. Sling in place, bruising of L arm, back R arm, R axilla, back, hips, inner L thigh, Allevyn dressing to L wrist, and R elbow area. SL x2 patent, was covered with kerlix at begining of shift, was picking at it, covered with coban afterwards and pt took off . SL area covered with manjinder wraps to present IV sites. pt instructed. better speech, aware of self, place, situation. Pt tolerating liquids well, meds given with puding. hob elevated, fall and aspiration precautions inplace. Does not call when incontinent. skin care, clean attends. gown changed x2. Pt unable to follow instrutions for cornet/IS use. helps with turning Pt to be up in chair for meals and to use back brace at all times when up. Bed alarm on
--- NOTE | 2021-10-12 06:49 | NUR ---
Coop with lab drawing, awake, hob elevated, on room air, inc of large amount of urine and had a smear of hard bm. cooperative. sling R arm, bed alrm on. fresh fluids given
--- NOTE | 2021-10-12 09:08 | NUR ---
PATIENT UP TO BATHROOM AND BACK TO BED, 1PA NINI WALKER. VITALS AND I&O'S CHARTED. RN IN ROOM AT THIS TIME. CALL LIGHT IN REACH. NO FURTHER NEEDS AT THIS TIME.
--- NOTE | 2021-10-12 09:27 | NUR ---
MORNING ASSESSMENT COMPLETE. PT AWAKE IN BED EATING BREAKFAST. DENIES PAIN AT THIS TIME. ARM SLING IN PLACE. ALLEVYN TO UPPER RIGHT ARM INTACT, ALLEVYN TO LEFT HAND CHANGED. BRUISING AND EDEMA TO UPPER RIGHT ARM IMPROVING. BOTH IV SITE FLUSHED AND PATENT. PT DENIES NEEDS AT THIS TIME. CALL LIGHT IN REACH.
--- NOTE | 2021-10-12 11:43 | NUR ---
PT IN BED VISITING WITH FRIEND. DENIES NEEDS AT THIS TIME CALL LIGHTIN ANTONY.
--- NOTE | 2021-10-12 12:27 | NUR ---
PT ASSISTED FROM BED TO CHAIR, BACK BRACE IN PLACE. PT BRIEF, GOWN AND ARM SLING CHANGED. PERICARE PROVIDED. DENIES FURTHER NEEDS AT THIS TIME. CALL LIGHT IN REACH.
--- NOTE | 2021-10-12 13:23 | NUR ---
PATIENT IN BED RESTING AT THIS TIME. VITALS AND I&O'S CHARTED. CALL LIGHT IN REACH. NO FURTHER NEEDS AT THIS TIME.
--- NOTE | 2021-10-12 15:09 | NUR ---
PT AWAKE IN BED, FRESH ICE WATER PROVIDED. DENIES FURTHER NEEDS AT THIS TIME. CALL LIGHT IN REACH.
--- NOTE | 2021-10-12 16:51 | NUR ---
PT BRIEF, LINENS CHANGED. DENIES FURTHER NEEDS AT THIS TIME. CALL LIGHT IN REACH.
--- NOTE | 2021-10-12 17:48 | NUR ---
PATIENT'S INTAKE IS IMPROVING OVER THE LAST 2 DAYS. WE ARE SENDING WHOLE MILK AND ENSURE ENLIVE AT EACH MEAL WHICH HE DRINKS BOTH WELL. REGULAR DIET IN PLACE. WILL CONTINUE ENSURE AND WHOLE MILK TO PROVIDE CALORIES AND PROTEIN.
--- NOTE | 2021-10-12 17:50 | NUR ---
PATIENT IN BED WATCHING TV AT THIS TIME. VITALS AND I&O'S CHARTED. PATIENT REQUESTING PAIN MEDS FOR 9 OUT OF 10 PAIN, RN NOTIFIED. CALL LIGHT IN REACH. NO FURTHER NEEDS AT THIS TIME.
--- NOTE | 2021-10-12 19:44 | NUR ---
PT IN BED, HOB ELEVATED. R ARM SLING IN PLACE, ELEVATED IN PILLOWS, MUCH IMPROVED EDEMA TO SHOULDERS AND HAND, TRACE. BRUISIGN RESOLVING EVERYWHERE/SCATTERED OVER UPPER BODY AND HIPS. ALLEVYN TO L WRIST AND R ELBOW. COOPERATIVE. ON ROOM AIR, LUNGS CLEAR DIM AT BASES, MUCH IMPROVED, MOIST NON PROD COUGH PRESENT. TOLERATING LIQUIDS WEL.. LE ELEVATED, CALL LIGHT AND FLUIDS AT HANDS REACH. BED ALARM ON. C/O LEONARDO BANDAGE COVERING 2 SL WAS ITCHNG, REMOVED, PT AWARE THAT IT WILL BE REWRAP SOMETIME LATER, STATED UNDERSTANDING
--- NOTE | 2021-10-12 23:22 | NUR ---
Resting, hob elevated, on room air, no distress, eyes closed. sling R arm, cll light and fluids at hands reach
--- NOTE | 2021-10-13 01:37 | NUR ---
Pt awake, c/o 8-9/10 R arm pain. medicated with Oxycodone 2.5mg po. R sling removed at thist martha, arm elevated inpillows, decreaed edema to shulder, elbow and hand. allevyn dressing x2 with old drainage. improving bruisiing all other upper body areas too. Inc of urine, cleansed. gown and bedding changed. cooperative. tolerating liquids well. call light and fluids at hands reach. Bed alarm on.
--- NOTE | 2021-10-13 03:35 | NUR ---
RESTING, EYES CLOSED, NO DISTRESS, ONROOM AIR, CALL LIGHT AND FLUIDS AT HANDS REACH. BED ALRM ON
--- NOTE | 2021-10-13 05:27 | NUR ---
Pt has slept well this shift. On room air, lungs clear, moist non prod cough present. tolerating liquids well. R arm sling was removed at his request. improved edema to R arm and hand, bruising of upper chest improving. Incontinent of urine several times, attends changed. uses call light, Bed alarm in place
--- NOTE | 2021-10-13 06:12 | NUR ---
Pt awake, inc of large amount of urine, whole bed and gown changed, cooperative. clean attends in place, skin care done. fluids and cll light at hands reach. Bed alarm on, moves L arm and LE very well, helped with repositioning. R arm improved movement, tender
--- NOTE | 2021-10-13 07:30 | NUR ---
PT IN BED. WARM WASH CLOTH GIVEN. PT SAT UP. BRIEF CHECKED. PT SOILED BRIEF. BRIEF CHANGED. WARM BLANKET GIVEN. PT DECLINED GETTING INTO CHAIR FOR BREAKFAST. PT SAT UP IN BED.
--- NOTE | 2021-10-13 07:37 | NUR ---
PT SITTING UP IN BED WATCHING TV AT TIME OF SHIFT REPORT. FRESH H20 TO BEDSIDE, CALL LIGHT AND NEEDED ITEMS IN REACH. PT DENIES NEEDS AT THIS TIME
--- NOTE | 2021-10-13 10:00 | NUR ---
RECVD A CALL FROM ROSE, UPDATE GIVEN ON PATIENT PLACEMENT. THIS RN WAS ADVISED THIS AM THAT THE PATIENT WAS ADVISING STAFF HE HAD A TRAILOR ON SOME PROPERTY THAT HE WISHES TO DISCHARGE TO. ROSE STATES THAT THE PATIENTS TRAILOR BURNT DOWN APPROX 5 YEARS AGO. ROSE STATES WHEN HE WAS HERE TO VISIT THE PATIENT YESTERDAY, HE REMINDED THE PATIENT THAT THE TRAILOR WAS NOT AN OPTION. ADVISED ROSE THAT WE WILL UPDATE HIM WITH A DISCHARGE PLAN FOR THE PATIENT SOON A BED BECOMES AVAILABLE.
--- NOTE | 2021-10-13 11:17 | NUR ---
PT UP TO WORK WITH P/T. RETURNS TO RESTING IN BED AFTERWARD
--- NOTE | 2021-10-13 11:30 | NUR ---
RECVD CALL FROM JUAQUIN AT [facility], PATIENT HAS BEEN DECLINED FOR PLACEMENT.
--- NOTE | 2021-10-13 12:00 | NUR ---
PT DECLINED GOING TO CHAIR FOR LUNCH. PT CHECKED IF BRIEF WAS SOILED. BRIEF CHANGED. PT SAT UP IN BED. APPLE JUICE GIVEN PER PT REQ. WATER REFRESHED. NO FURTHER NEEDS AT THIS TIME. CALL LIGHT WITHIN REACH.
--- NOTE | 2021-10-13 12:59 | NUR ---
SPOKE WITH LUZ MARIA FROM [facility], CHART RECVD ON WEDNESDAY. WILL REVIEW CHART TODAY AND CALL BACK WITH DETERMINATION.
--- NOTE | 2021-10-13 14:10 | NUR ---
PT ALERT, ORIENTED AND STTING UP IN BED EATING LUNCH WITH TV ON. PT SEEMS TO BE ENJOYING LUNCH. GOOD VISIT, GAVE BLESSING AND WILL FOLLOW
--- NOTE | 2021-10-13 14:35 | NUR ---
SPOKE WITH MARIANNA TERRY AT [facility], NO AVAILABLE BEDS AT THIS TIME.
--- NOTE | 2021-10-13 14:37 | NUR ---
PT RESTING IN BED REQUESTS PHONE AND PHONE BOOK. PROVIDED. PT DENIES OTHER NEEDS AT THIS TIME
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
--- NOTE | 2021-10-13 16:15 | NUR ---
PT LAYING IN BED. BRIEF CHANGED DUE TO BEING SOILED. NO FURTHER NEEDS AT THIS TIME. CALL LIGHT WITHIN REACH.
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
--- NOTE | 2021-10-13 18:05 | NUR ---
PT SITTING UP IN BED. VITALS AND I'S AND O'S TAKEN. NO FURTHER NEEDS AT THIS TIME. CALL LIGHT WITHIN REACH.
--- NOTE | 2021-10-13 18:31 | NUR ---
PT GIVEN PAIN MED PER STEPHANIER CONVERSATION THAT HE WOULD LIKE TO HAVE PAIN MEDS REGULARLY. STATES PAIN MED IS NOT VERY EFFECTIVE BUT IT HELPS. PAIN CONTROL STRATEGIES DISCUSSED.
--- NOTE | 2021-10-13 19:05 | NUR ---
BEDSIDE REPORT RECIEVED FROM OFFGOING RNEDWARD. PT RESTING IN BED CALL LIGHT IN REACH.
--- NOTE | 2021-10-13 19:20 | NUR ---
PATIENT CALLED WANTING CHOCOLATE ENSURE X2. PROVIDED.
--- NOTE | 2021-10-13 21:15 | NUR ---
PT ASSESSMENT COMPLETE. PT C/O ITCHING BACK. LOTION APPLIED. PT REPORTS PAIN TO RUE, RATES 9/10. PT AWARE UNABLE TO HAVE PRN YET, STATES THAT HE CAN WAIT UNTIL IT IS AVAILABLE. PT DENIES SOB OR NAUSEA. PT INCONTINENT OF URINE, ATTENDS IN PLACE. CHANGED AT THIS TIME. RUE WITH BRUISING AND ALLEVYN DRESSING IN PLACE. LUE WITH ALLEVYN. BOTH ALLEVYN C/D/I. RUE ELVATED ON PILLOW. APPLE JUICE PROVIDED PER PT REQUEST. IV FLUSHED WITH NS. WNL, PATENT, SL. PT DENIES FURTHER NEEDS AT THIS TIME. CALL LIGHT IN REACH.
--- NOTE | 2021-10-13 23:20 | NUR ---
PT ROUNDING. PT REPORTS PAIN 10/10 TO R ARM/SHOULDER. PRN ADMINISTERED. SEE EMAR. PT DENIES FURTHER NEEDS AT THIS TIME.
--- NOTE | 2021-10-14 01:43 | NUR ---
PT RESTING IN BED WATCHING TV. HAND ICER AT BEDSIDE. PT STATES THAT PAIN TO ARM CONTINUES AFTER PRN ADMINISTRATION. ICE PACK OFFERED, PT DECLINES. PT DENIES FURTHER NEEDS, HAND ICER REMAINS AT BEDSIDE.
--- NOTE | 2021-10-14 03:01 | NUR ---
THIS SALES PLANNING COORDINATOR AND PRIMARY RN IVAN CHANGED PATIENT'S INCONTINENT ATTENDS.
--- NOTE | 2021-10-14 04:10 | NUR ---
PT UTILIZES CALL LIGHT, REQUESTS TO GET UP TO THE BATHROOM, STATES THAT HE NEEDS TO HAVE A BOWEL MOVEMENT. PT UP TO THE BATHROOM AND BACK TO BED WITH 1 PA AND HEMIWALKER. PT TOLERATED WELL. PT ASSESSMENT COMPLETE. PT STATES THAT PAIN CONTINUES RUE, DENIES SOB OR NAUSEA. BRUISING TO RUE UNCHANGED FROM PREVIOUS, ELEVATED ON PILLOW. ALLEVYN FOAM PRESENT TO R ELBOW. OLD DRAINAGE PRESENT. BUES WITH VARIOUS SCABS PRESENT. UNCHANGED FROM PREVIOUS. ATTENDS IN PLACE FOR INCONTINCE. IV SL. PT DENIES FURTHER NEEDS AT THIS TIME. CALL LIGHT IN REACH.
--- NOTE | 2021-10-14 07:33 | NUR ---
PT RESTING IN BED WATCHING TV AT TIME OF SHIFT EXCHANGE, NONPARTICIPATORY. NO C/O PAIN OR OTHER DISCOMFORTS. FRESH H20 TO BEDSIDE CALL LIGHT IN REACH.
--- NOTE | 2021-10-14 10:38 | NUR ---
PT TRANSFERS BACK TO BED FROM CHAIR WITHOUT USING THE CALL LIGHT. ENCOURAGED PT TO ALLOW SBA FOR SAFETY. RESTING IN BED NOW WATCHING TV RESISTIVE TO WORKING WITH O/T. PAIN MEDS ADMINISTERED IN ANTICIPATION OF P/T THIS SHIFT.
--- NOTE | 2021-10-14 11:14 | NUR ---
PT OUT OF ROOM WITH O/T.
--- NOTE | 2021-10-14 11:15 | NUR ---
PT ALERT, ORIENTED AND WATCHING TV. HAD GOOD VISIT TODAY. PT NEEDED ASSISTANCE WITH PILLOW FOR SUPPORT OF R YOCASTA. REQUESTED PRAYER AND DISCUSSION REGARDING CHANGING UP HIS MEAL ORDERS. MARQUEZ BANEGAS AND HARRISON LEON WILL ASSIST. WILL FOLLOW
--- NOTE | 2021-10-14 12:30 | NUR ---
Notified by staff, pt cancelled finanical eval by [employer] and told them he did not want to apply for long term care pharmacist medicaid for placement.
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
--- NOTE | 2021-10-14 14:15 | NUR ---
Spoke with Lele and he will assist Jairo. He has an appt tomorrow at 10am, but otherwise is free all this week. Texted Nimco Boyce at [facility] and let her know if she schedules an eval Lele will assist Jairo.
--- NOTE | 2021-10-14 14:44 | NUR ---
Received a text from Nimco and she will set up an appt for Oct 17 for 1pm. I will call Lele and let him know the time.
--- NOTE | 2021-10-14 14:48 | NUR ---
Called Lele and updated to time of call and he states he will arrive early. CAlled IT and requested a conference phone to use.
--- NOTE | 2021-10-14 16:55 | NUR ---
PT HAS REMAINED RESTING IN BED WATCHING TV ALL SHIFT. REFUSES TO GET UP AND WORK WITH P/T.
--- NOTE | 2021-10-14 18:15 | NUR ---
PT RESTING IN BED WATCHING TV ASKS WHERE A GOOD PLACE TO GO SMOKE IS. PT NOTIFIED NOT ON CAMPUS, SNACK OFFERED
--- NOTE | 2021-10-14 19:05 | NUR ---
PT IN CHAIR, R ARM SLING IN PLACE, VISITING WITH FRIEND WHO BROUGHT PTS DOG. DENIES C/O PAIN, ON ROOM AIR.
--- NOTE | 2021-10-14 19:20 | NUR ---
PT OUT IN [place] WALKING, FWW, FRIEND ROSE WITH HIM. PT WANTING TO LEAVE AND GO OUTSIDE WITH HIS FRIEND. NOTED A HAND WOOD SANDER IN PT RIGHT HAND, WHEN QUESTIONED ABOUT THE HAND WOOD SANDER HE SAID HE FOUND IT ON THE FLOOR. TOLD ROSE TO TAKE THE HAND WOOD SANDER HOME, PT WON'T NEED THE HAND WOOD SANDER HERE. ROSE SAID OH OK. PT BACK TO HIS ROOM, NOTED BED SOAKED WITH URINE, PT WENT TO CHAIR TO SIT WHILE SHAPE CARVER AND THIS RN CHANGED HIS BED. CHAIR ALARM IN PLACE.
--- NOTE | 2021-10-14 19:30 | NUR ---
THIS SWIMMING POOL MAINTENANCE AND RECRUITMENT OFFICER JULISA IN THE ROOM. CHANGED THE BED LINEN WAS SOAKED WITH URINE. PATIENT WAS SITTING ON THE CHAIR. VISITOR WITH DOG IN THE ROOM. THIS SWIMMING POOL MAINTENANCE HELPED PATIENT CHANGED THE GOWN TOOK THE WET PANTS OFF PLACED FRESH ATTENDS. PATIENT IS BACK IN BED. CALL LIGHT IN REACH.
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
--- NOTE | 2021-10-15 00:04 | NUR ---
pt hob elevated, r arm elevated in pillows, eys closed, no resp distress. call light and fluids at hands reach, LE elevated
--- NOTE | 2021-10-15 02:29 | NUR ---
PT PULLED IV OUT FROM LWRIST. LFA IVSL PATENT. COVERED WITH LEOANRDO WRAP TO PREVENT FURTHER ACCIDENTAL PULLING OF SITE. PROCEDURE EXPLAINED. PT ON ROOM AIR, LUNGS CLEAR, INC OF LARGE AMOUNT OF URINE. BLADDER STENT IN PLACE. NO C/O PAIN. WHOLE BEDDING ERASMO AND GOWN, SKIN CARE. CLEAN ATTENDS INPLACE. HOB ELEVATED. OJ GIVEN ON REQUESTS. CALL LIGHT AT HANDS REACH. BED ALARM ON.
--- NOTE | 2021-10-15 04:01 | NUR ---
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
--- NOTE | 2021-10-15 05:05 | NUR ---
Pt on room air, clear lungs, abd soft, non distended, incontinent of large amount of urine several times, skin care, clean attends and whole bedding and gown changes done this shift. more alert, oriented, irritable mood. Pt had a visitor who provided pt with cigarrets and a glass cylinder flanger. Pt got off from chair threw R arm sling off, got dressed by self and was trying to walk out to go ut for a smoke, reminded that we are a non smoking hosp and itemd comfiscated charge nurse and supervisor shuttle veneering aware. Pt back to bed. used hemiwalker very well, minimum of assist. R arm improved edema allevyn to upper elbow area with old drainage, scabbed areas healing. sling off at HS his requests, bruising over R arm axilla, lateral area, chest and r hip improving. bruising L arm, back, lateral area, hip and inner thigh improving. Pt pulled SL LW off. LFA sl patent. covered with manjinder wrap to prevent further accidental dislodgement. pt instructed, no answer, unable to gauge understanding. Was medicated x1 with Oxycodone 2.5 per R arm pain. Incontinent of large amount of urine. bladder stent visible and low abd hernia present, call light and fluids at bedside Turned and repositioned. tolerating fluids well, meds given with puding, tolerated well. Fall and aspiration precautions in place
--- NOTE | 2021-10-15 06:37 | NUR ---
Incontinent of large amount of urine, bedding and gown changed, skinc are, clean attends and linen. On room air, watching tv. tolerating liquids well, no emesis, no cough at this time. call light anfd fluids at hands reach
--- NOTE | 2021-10-15 08:40 | NUR ---
Spoke with Jairo. We discussed his declining [employer] for medicaid. He states he thinks he messed up as he is going to need a lot of help. Discussed Lele will be here the next time they call to assist him. He states Lele let him know. Attempted to call [facility] and unable to reach, voice mail is full.
--- NOTE | 2021-10-15 09:10 | NUR ---
Admin oxycodone 2.5mg po for right arm pain. Right arm is currently in a sling, cms intact. Patient reports he did not sleep well last night. Fresh water provided to patient at this time. Personal supplies and call light within reach.
--- NOTE | 2021-10-15 10:52 | NUR ---
Attempted to call Taryn at [facility]. Was able to reach her voice mail. Asked if she has had time to review the chart Kaushal ANTONIO sent on Wednesday. Requested return call.
--- NOTE | 2021-10-15 10:53 | NUR ---
PT ALERT, ORIENTED AND SITTING UP IN BED WITH TV ON. PT HAD GOOD NIGHT'S SLEEP AND SEEMS IN BETTER SPIRITS TODAY. HAD GOOD VISIT, PRAYED WITH PT. WILL FOLLOW NEEDED
--- NOTE | 2021-10-15 13:03 | NUR ---
Patient sitting up in bed watching tv, no distress noted. Patient has sling on right arm at this time, cms intact. Patient reports his pain is tolerable at this time. No current needs at this time. Call light within reach.
--- NOTE | 2021-10-15 14:36 | NUR ---
aDMIN oXYCODONE 2.5MG PO for reports of 5/10 right arm and back pain.
--- NOTE | 2021-10-15 20:00 | NUR ---
PT CALLED, REQUESTED AND RECEIVED A PEN.
--- NOTE | 2021-10-15 20:56 | NUR ---
PT ON ROOM AIR, MUCH MORE ALERT AND ORIENTED, AWARE OF SURROUNDING, PLACE, DATE, NAME AND SITUATION. R ARM ALING IN PLACE. DECREASED EDEMA TO SHOULDER AND HAND. BRUISING ALL OVER BODY IMPROVING. SL LFA PATENT. INC OF LARGE AMOUNT OFURINA PLUSE USED URINAL 3X, VOIDED SMALL AMOUNT OF YELOOW URINE, NO C/O PAIN AT THIST DALIA. TOLERATING LIQUIDS AND MANY SNACKS SINCE BEGINIGN OF SHIFT. CALL LIGHT, REMOTE CONTROL AND FLUIDS AT HANDS REACH. BED ALRM ON, HOB ELEVATED, FALL AND ASPIRATION PRECAUTIONS IN PLACE
--- NOTE | 2021-10-15 22:40 | NUR ---
PT HOB ELEVATED TO COMOFRT, SLING R ARM, ELEVATED IN PILLOWS. EYES CLOSED BED ALARM IN PLACE, CALL LIGHT AND FLUIDS AT HANDS REACH
--- NOTE | 2021-10-16 01:18 | NUR ---
PT INCONTINENT OF URINE, ATTENDS CHANGED. NO BM. TOLERATING LIQUIDS WELL, SNACK AND FRESH FLUIDS AND JUICE GIVEN, COOPERATIVE, SLINIG R ARM REMOVED AT THIS REQUESTS. HELPED WITH REPOSITIONING
--- NOTE | 2021-10-16 01:49 | NUR ---
PT CALLED, WANTED LIGHT ON, BLOOD ON SHEET, NOTED IV CATH ON BEDSIDE TABLE, INTACT. PT SAID IT WAS ITCHING, DIDN'T "KNOW" I DID THAT. AREA COVERED WITH BETH GUEVARA RN NOTIFIED.
--- NOTE | 2021-10-16 04:20 | NUR ---
Pt resating, eys closed, moves extremities while in bed, call light fluids nd bed alarm
--- NOTE | 2021-10-16 05:40 | NUR ---
Pt on room air, lungs clear, no cough. Has tolerated many snacks, juice and liquids well, no emesis. Incontinent of large amunt of urine, has used urinal off and on at begining of shift. not since 1999. Pt encouraged to do self care. R arm improved mobility, took sling off, decreased edema, Allevyn dressing R elbow area. decreased bruising over various parts of upper body, hips and L inner thigh. Pt took IV LS off. c/o itching, cream applied to arms and back. irritable mood, redirectable. will try to restart IV site. pt helping with turning and repositioning. call light and fluidsa t hands rech. Bed alarm in place
--- NOTE | 2021-10-16 06:37 | NUR ---
Dr Conti notified via phone of pts pulling SL last noc. new orders "ok to leave IV SL out".
--- NOTE | 2021-10-16 08:38 | NUR ---
RECVD NOTICE FROM [facility] AT [facility] THAT THEY WILL HAVE BEDS AVAILABLE NEXT WEEK. CHART UPDATES FAXED. PER CHART TO NURSING TODAY FOR REVIEW.
--- NOTE | 2021-10-16 09:00 | NUR ---
REPORT RECEIVED FROM NIGHT RN AND PT. CARE RESUMED. PT. IS AGITATED AND CURSING/YELLING THAT HE DOES NOT WANT TO SEE THE PROGRAM SERVICES ASSISTANT ANYMORE. DISCUSSED APPOPROPRIATE COMMUNICATION. ASSESSMENT COMPLETED. PT. REFUSES TIME IN THE CHAIR AND AMBULATED WITH HEMIWALKER AND SBA.SLING IN PLACE. REFUSES BACK BRACE. LEFT RESTING WITH CALL LIGHT IN REACH.
--- NOTE | 2021-10-16 11:24 | NUR ---
CHANGED PATIENT BEFORE HE GOT UP TO EAT HIS BREAKFAST.
--- NOTE | 2021-10-16 14:13 | NUR ---
PT. USED CALL LIGHT APPROPRIATELY AND C/O BACK PAIN. ADMIN PAIN MED AND BROUGHT ICE. PT. MORE PLEASANT. LEFT RESTING WITH CALL LIGHT IN REACH.
--- NOTE | 2021-10-16 15:37 | NUR ---
PT CALLED FOR A BREIF CHANGE. THIS CNA2 AND RN PERFORMED VENESSA CARE/BRIEF CHANGE. PT WAS ABLE TO MOVE FROM ONE SIDE TO THE OTHER W/MINIMAL ASSISTANCE. NO OTHER REQUESTS AT THIS TIME. CALL LIGHT IN REACH.
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
--- NOTE | 2021-10-16 21:23 | NUR ---
Pt on room air, lungs clear, bilat, tolerating liquids well, no cough. Sling R arm off at his reuests at this time, elevated with pillows, pt encouraged to help move R arm by holding it with his left hand, did well. trace edema to R elbow present, scabbed over areas over R and L arm healing, Allevyn to R elbow and L arm in place. no IV site. bruiseing over upper body back and R axilla and lateral area resolving. Pt irritable, reasured, procedure explained. more cooperative. Pt instructed to use urinal, snacks and juice given after each time he used urinal. Was incontinent of small amount of urine in attends had medium hard dark brown stool. skin care, slight redness of L inner scrotal/inguinal are and upper buttocks crease noted. barrier cream applied. pt cooperative, legs elavated with pillows. r arm elevated. Pt used call light, reassured multiple times of placement to custodial. unable to gauge degree of understanding as he closed his eyes and does not talk afterwards. Reassured, watching tv. Call light, snacks, juice at hands reach. Bed alarm on
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
--- NOTE | 2021-10-17 00:20 | NUR ---
PT GETTING OOB, ALREADY WALKING TO THE TOILET, INCONT BM AND MORE IN THE TOILET, PT PROVIDED HIS NINI WALKER, BACK TO BED, PT TALKS OF THINKING IT IS LOOKS LIKE HIS TRAILER, ASKED HOW HE GOT IN HERE, HE KNOWS HE'S BEEN IN THE HOSPITAL, WHEN ASKED, PT RECALLS THAT HE NEEDS TO USE HIS ARM SLING AND BACK-BRACE, NO FURTHER NEEDS, BED ALARM SET
--- NOTE | 2021-10-17 01:31 | NUR ---
resting, eys closed, repositions self inbed, bed alarm on. fluids and call light at hands reach
--- NOTE | 2021-10-17 03:37 | NUR ---
Pt resting,no distress, eyes closed, call light and fluids t hands reach, bed alarm on
--- NOTE | 2021-10-17 04:29 | NUR ---
pt was irritable, angry at begining of shift, redirectable. got dressed and tried to leave the hosp redirectable. had changed street clothes, and used hemiwalker, Back in bed, has used urinal several times, Up to br x1, voided plus was incontinent of urine. R arm much improved movement, trace of edema. took sling off. Pt to use sling R arm and back brace when up. declines back brace. no IV site. multiple scabbed areas over arms improving, bruising healing. was c/o itchy back, cream appliled as per orders. cooperative, confused at times, follows instructions. bed alrm on, tolerating liquids and sncks. Bed alrm on. anxious over placement to care home. explained to him and reassured.
--- NOTE | 2021-10-17 06:15 | NUR ---
pt continues to use urinal t/o this shift. was incontinent of urine smear of bm, plus a bm earlier on when he got out of bed. tolerating liquids well. moved R arm on his own when changing gown. much improved movement, good cms, call light and fluids at hands reach. Bed alarm on, helped with turning. alert to self and place. pleasant, all procedures explained
--- NOTE | 2021-10-17 09:00 | NUR ---
REPORT RECEIVED FROM NIGHT RN AND PT CARE RESUMED. PT. IS DROWSY BUT AWAKENS EASILY TO SOUND. ORIENTED TO ALL. HE IS STILL CONFUSED AT TIMES. ASSESSMENT COMPLETED. PT. DENIES FURTHER NEEDS. LEFT RESTING WITH ALARM ON AND CALL LIGHT IN REACH.
--- NOTE | 2021-10-17 10:26 | NUR ---
ATTEMPTED TO CHECK ON PATIENT, PATIENT RESTING IN BED. APPOINTMENT SCHEDULE WITH [facility] FOR 1300 TODAY.
--- NOTE | 2021-10-17 14:51 | NUR ---
PT BROUGHT ORANGE JUICE PER REQUEST. LEFT RESTING WITH CALL LIGHT IN REACH.
--- NOTE | 2021-10-17 15:20 | NUR ---
I ASKED PATIENT IF HE WOULD LIKE TO TAKE A SHOWER TODAY AND HE SAID TOMORROW.
--- NOTE | 2021-10-17 21:10 | NUR ---
IN TO ASSIST RN WITH A SET OF VITALS FOR CARDIAC MEDS, EMPTIED URINAL
--- NOTE | 2021-10-17 23:47 | NUR ---
CALL LIGHT ANSWERED, URINAL EMPTIED AND RETURNED TO PT'S REACH. CRANBERRY JUICE PROVIDED PER REQUEST. ASSISTED PT TO CHANGE IN TO NEW ATTENDS AND SWEATPANTS. DENIES FURTHER REQUESTS.
--- NOTE | 2021-10-18 08:30 | NUR ---
REPORT RECEIVED FROM NIGHT RN AND PT. CARE RESUMED. PT. IS DROWSY BUT AWAKENS EASILY TO VOICE. HE IS ORIENTED TO ALL BUT DATE. ASSESSMENT COMPLETED AND MEDS ADMIN. PT. LEFT RESTING WITH CALL LIGHT IN REACH.
--- NOTE | 2021-10-18 09:10 | NUR ---
Rounded on patient who is currently working with physical therapy. Pt on room air, A+O, no needs apparent at this time. Call light in reach.
--- NOTE | 2021-10-18 11:49 | NUR ---
PATIENT CALLED HE NEEDED SOMEONE TO HELP HIM RUB LOTION ON HIS ELBOW ON HIS BROKEN ARM AND ALSO ON HIS OTHER ELBOW.
--- NOTE | 2021-10-18 14:37 | NUR ---
THIS RN IS TAKING OVER PATIENT CARE FOR THE PATIENT. REGPORT GIVEN BY HARRISON VANN. PATIENT HAS JUST HAD PAIN MEDICATION AND IS WATCHING TV AND HAS NO NURSE CARE NEEDS AT THIS TIME. PATIENT REFUSES TO WEAR HIS RIGHT ARM SLING WHILE IN BED AND REFUSES TO WEAR HIS BACK BRAE WHEN HE IS UP AND ABOUT IN THE ROOM. CALL LIGHT IS IN REACH AND PATIENT HAS NO CARE NEEDS AT THIS TIME.
--- NOTE | 2021-10-18 14:41 | NUR ---
PT. GIVEN PAIN MED. REPORTS RIGHT SHOULDER PAIN. FRIEND AND DOG VISITING. DENIES FURTHER NEEDS
--- NOTE | 2021-10-18 15:41 | NUR ---
PATIENT IS UNABLE TO CALL SOMEONE ON THE PHONE AND THIS RN WENT IN, FRANTZ SAYS HE DIALED 9 AND A LOCAL# AND CAN'T GET THROUGH. THIS RN DIALED THE NUMBER FOR HIM AND A LIBERTARIAN PICKED UP AND I GAVE HIM THE PHONE. PATIENT HAS NO OTHER CARE NEEDS AT THIS TIME. CALL LIGHT IN REACH.
--- NOTE | 2021-10-18 15:48 | NUR ---
PATIENT CALLING AGAIN SAYING HE CAN'T GET HIS PHONE TO WORK. THIS RN WENT IN AND SHOWED HIM HOW TO DIAL HIS PHONE AND CALLED THE NEXT NUMBER HE WAS TRYING TO REACH AND THE [employer] ANSWERED. PATIENT HAS NO OTHER CARE NEEDS FROM THIS RN AT THIS TIME. CALL LIGHT IN REACH AND AFTERNOON ASSESSMENT COMPLETE.
--- NOTE | 2021-10-18 17:55 | NUR ---
PATIENT EATING HIS DINNER AND REQUESTED AN ENSURE WHICH WAS GIVEN TO ADD TO HIS MEAL. PATIENT DENIED ANY OTHER NEEDS AT THIS TIME. CALL LIGHT IS IN REACH.
--- NOTE | 2021-10-18 18:46 | NUR ---
PATIENT CALLED WITH A ITCHY RT SHOULDER AND THIS RN APPLIED BENADRYL CREAM. PATIENT HAD NO OTHER CARE NEEDS AT THIS TIME. CALL LIGHT IN REACH.
--- NOTE | 2021-10-18 19:15 | NUR ---
SHIFT REPORT RECEIVED FROM DAYSHIFT HARRISON MODI AT BEDSIDE. pt AWAKE AND RESTING IN BED, BED ALARM ON FOR SAFETY. pt USING URINAL AND DENIES NEEDS OR CONCERNS. CALL LIGHT IN REACH.
--- NOTE | 2021-10-18 19:34 | NUR ---
IN TO EMPTY URINAL FOR PT, PROVIDED JUICE, NO FURTHER NEEDS AT THIS TIME
--- NOTE | 2021-10-18 21:00 | NUR ---
assessment complete, pt has already called a few times asking for "something for pain and some lotion for my back". scheduled meds given along with prn pain medication for reported 9/10 pain. upon entering room, pt was found resting in bed with eyes closed, rr even and unlabored. right arm in sling per md orders. bed alarm on, call light in reach. moderate bruise noted to right lateral side, allevyn noted to right elbow "from fall" per pt. pt boosted in bed, no reddness noted to coccyx. cms intact to extremities x4, strong bilateral radial and pedal pulses noted. scd's in place. no additional needs. will monitor for changes.
--- NOTE | 2021-10-18 23:35 | NUR ---
ROUNDED ON pt, pt AWAKE AND WATCHING TV, BED ALARM REMAINS ON AND CALL LIGHT IN REACH. NO NEEDS OR CONCERNS.
--- NOTE | 2021-10-18 23:42 | NUR ---
pt wants help scratching back, regular lotion provided and appiled to pt
--- NOTE | 2021-10-19 01:05 | NUR ---
PRN BENADRYL CREAM APPLIED TO BACK PER pt REQUEST. NO ADDITIONAL NEEDS, CALL LIGHT IN REACH. BED ALARM REMAINS ON.
--- NOTE | 2021-10-19 03:13 | NUR ---
ROUNDED ON pt, pt RESTING IN BED. EYES CLOSED, RR EVEN AND UNLABORED. NO DISTRESS NOTED, ON RA. BED ALARM ON AND CALL LIGHT IN REACH.
--- NOTE | 2021-10-19 05:28 | NUR ---
ASSESSMENT COMPLETE, NO ACUTE CHANGES. pt AWOKE TO VOICE. BED ALARM REMAISN ON. pt REMOVED RIGHT ARM AND WAS FOUND ON BEDSIDE UPON ENTERING ROOM, pt REFUSED TO PUT BACK ON AT THIS TIME. EDUCATE AND ENCOURAGE USE OF ARM SLING. CMS INTACT, pt DENIES NUMBNESS AND TINGLING. NO ADDITIONAL NEEDS, CALL LIGHT IN REACH. VSS AND I&O'S COMPLETE.
--- NOTE | 2021-10-19 07:11 | NUR ---
MESSAGE SENT TO DR CALERO REGARDING [facility]MP TO RLQ APPROX SIZE OF A TENNIS BALL-BONIFACIO WITH ZIT LIKE PIMPLE ON TOP. DAYSHIFT HARRISON MODI ALSO MADE AWARE AND TO FURTHER DISCUSS WITH .
--- NOTE | 2021-10-19 07:20 | NUR ---
patient resting in the bed. refused to get up for breakfast. vitals done early per RN for cardiac meds. urinal emptied. call light with in reach. no further needs at this time.
--- NOTE | 2021-10-19 07:29 | NUR ---
THIS RN RECEIVED SHIFT REPORT FROM HARRISON WOODS. PATIENT RESTING QUIETLY IN BED WATCHING TV AND DENIES ANY CARE NEEDS AT THIS TIME. CALL LIGHT IS IN REACH AND BED ALARM IS ON.
--- NOTE | 2021-10-19 08:18 | NUR ---
PATIENT HAS C/O PAIN, BUT PAIN 5/10 IN FLACC SCALE. 2.5MG PO OXYCODONE GIVEN WITH AM MEDS. AM ASEESSMEN COMPLETE. RT ELBOW ALLEVYN HAS COME OFF AND NO DRAINAGE NOTED SO LEFT OPEN TO AIR AT THIS TIME. BREAKFAST HAS ARRIVED AND EXTRA CRANBERRY JUICE AND FRESH ICE WATER GIVEN AT PATIENT'S REQUEST. PATIENT EATING AND DENIES ANY OTHER CARE NEEDS AT THIS TIME. CALL LIGHT IN REACH AND BED ALARM IS ON.
--- NOTE | 2021-10-19 09:10 | NUR ---
PT VITALS & I&O'S DOCUMENTED. PT REQUESTED A HOT PACK FOR HIS R SHOULDER. HEAT PACK MADE/PLACED. HE STATED "IT HELPS". AKSED PT IF HE WOULD LIKE A SHOWER TODAY HE STATED HE "GOT A SHOWER YESTERDAY, EVERY OTHER DAY IS GOOD". CALLED DOWN AND ORDERED LUNCH FOR PT. NO OTHER REQUESTS AT THIS TIME. IN BED WATCHING TV. CALL LIGHT IN REACH.
--- NOTE | 2021-10-19 10:10 | NUR ---
JAKE CALLED FOR ITCHING ON HIS BACK. THIS RN APPLIED BENADRYL CREAM TO THE BACK AND RIGHT SHOULDER. ALSO APPLIED CREAM TO BOTH OF THE PATIENT'S LEGS. HERE AND GOING IN TO SEE PATIENT. CALL LIGHT IS IN REACH.
--- NOTE | 2021-10-19 10:25 | NUR ---
WANTED THIS RN TO WALK PATIENT OFF O2 TO SEE HOW IS O2 SATS ARE. PATIENT WALKED 2 LAPS AROUND MED/SURG AND O2 WAS 88-89% THE ENTIRE TIME. INFORMED AND HE IS ORDERING A HOME O2 QUALIFIER. THIS RN HAS CALLED RT AND THEY WILL BE COMING TO SEE PATIENT. PATIENT TALKING ON THE PHONE TO HIS SON. CALL LIGHT IS IN REACH.
--- NOTE | 2021-10-19 12:07 | NUR ---
REPORT RECEIVED FROM HARRISON MODI. PT TALKING ON PHONE WHILE RESTING IN BED. LUNCH DELIVERED. 1 PERSON ASSIST UP TO CHAIR FOR LUNCH. PT ASSISTED WITH MEAL TRAY PREP. PT REPORTS PAIN AT 11/08, PT UPDATED ON PLAN OF CARE AND PAIN MANAGEMENT. PT VERBAZLIES UNDERSTANDING. SLING IN PLACE. NO ADDITONAL REQUESTS OR COMPLAINTS. CALL LIGHT WITHIN REACH. CHAIR ALARM ON.
--- NOTE | 2021-10-19 12:49 | NUR ---
THIS RN TO ROOM TO CHECK ON PT. PT REMAINS UP TO CHAIR. FINISHED WITH LUNCH. PT DENIES PAIN AND NAUSEA. WARM BLANKET PROVIDED. PT UPDATED ON PLAN OF CARE. PT REPORTS HE IS WAITING FOR HIS TO ARRIVE. OXGYEN SATURATION OF98% ON 3L O2 BY NC. CALL LIGHT WITHIN REACH.
--- NOTE | 2021-10-19 12:51 | NUR ---
PT CALL LIGHT ON. PT REQUESTS HIS DISHES BE REMOVED. DISHES REMOVED. PT IS BACK TO BED AND RESTING WITH SLING IN PLACE. PT DENIES ADDITIONAL REQUESTS OR COMPLAINTS. CALL LIGHT WITHIN REACH. BED RAILS UP.
--- NOTE | 2021-10-19 14:27 | NUR ---
AFTERNOON ASSESSMENT AND MEDICATION DUE. PT RESTING IN BED. HEAD OF BED ELEVATED TO 15 DEGREES. PT REPORTS 10/10 PAIN IN RIGHT ARM AND SHOULDER. SEE MAR FOR MEDICATION GIVEN. HEAT PACK PROVIDED. PT ALERT AND ORIENTD TO ALL. CONTROLLED MOVEMENT WITH STRONG TRIPLE VALVE MECHANIC STRENGTH NOTED TO RIGHT ARM/HAND. LUNG SOUNDS CLEAR, HEART TONES REGULAR ALTHOUGH DISTANT. STRONG RADIAL PULSES NOTED. TRACE EDEMA UNCHANGED TO BILATERAL UPPER ARMS. CMS INTACT. PT DENIES NUMBNESS OR TINGLING TO RIGHT HAND/ARM. PT REPORTS TINGLING TO LEFT FINGERTIPS AT TIMES. SLING IN PLACE TO RIGHT ARM. PT REQUESTS PADS FOR HIS HEELS AND RIGHT ELBOW. HEEL PROTECTORS APPLIED. HEEL PROTECTOR ALSO APPLED TO RIGHT ELBOW WHICH PT STATES "HELPS A LOT." PT REPORTS PAIN HAS NOW DECREASED TO 7/10. SCAB LIKE CRATER NOTED TO RIGHT CHEEK. PT STATES THIS HAS "BEEN THERE FOR A LONG TIME." CANCER LIKE IN APPEARANCE. HOLE ALSO NOTED TO BACK OF MOUTH ON RIGHT SIDE ~ PEA SIZED. ZIT LIKE NODULE WITH SWELLING NOTED TO RLQ. MUPIROCIN OINTMENT APPLIED. WARM COMPRESS APPLIED. BANDAID APPLIED. PT STATES "NO ONE TELLS ME WHAT SHIT IS GOING ON ARROUND HERE." PLAN OF CARE REVIEWED WITH PT. PT VERBALIZES UNDERSTANDING AND STATES HIS QUESITONS HAVE BEEN ANSWERED BUT IS UNWILLING OR UNABLE TO REPEAT BACK INFORMATION. PT CONTINUES RESTING IN BED, NO ADDITONAL REQUESTS OR COMPLAINTS. CALL LIGHT WITHIN REACH. BED RAILS UP.
--- NOTE | 2021-10-19 15:37 | NUR ---
THIS RN TO ROOM TO CHECK ON PT. PT RESTING IN BED. PT REPORTS PAIN IN RIGHT ARM IS NOW 8/10. PT REPORTS HEAT PACKS ARE HELPING. MD AWARE OF PAIN LEVEL. PT ASSISTED WITH USING URINAL. NO ADDITIONAL REQUESTS OR COMPLAINTS. CALL LIGHT WITHIN REACH. BED RAILS UP.
--- NOTE | 2021-10-19 16:05 | NUR ---
PT HERE FOR DECONDITIONING AND ENCEPHALOPATHY. PT UP TO CHAIR FOR MEALS, UP WITH PHYSICAL THERAPY, AND UP IN ROOM WITH 1 PERSON ASSIST AND NINI WALKER. PT TOELRATING REGULAR DIET WITH GOOD APPITITE, ENSURE PROVIDED AND CONSUMED. CMS REMAINS INTACT TO RIGHT ARM. SLING IN PLACE, PRN PAIN MEDICATION GIVEN. NEW "ZIT LIKE" SORE NOTED TO RIGHT ABDOMEN, CREAM APPLIED, HEAT PACK APPLIED. PT UPDATED ON PLAN OF CARE AND VERBALIZES UNDERSTANDING. PT VOIDING QUANITTY SUFFICIENT. PT USES CALL LIGHT FREQUENTLY AND MAKES NEEDS KNOWN.
--- NOTE | 2021-10-19 17:08 | NUR ---
DINNER DELIVERED TO PT. 1 PERSON ASSIST WITH NINI WALKER UP TO CHAIR FOR DINNER. PT REPORTS FEEING ITCHY. ANTI ITCH CREAM APPLIED TO BACK AND LEGS. PT DENIES ADDITONAL REQUESTS OR COMPLAINTS. URINAL EMPTIED OF 125 ML CLEAR YELLOW URINE. CALL LIGHT WITHIN REACH.
--- NOTE | 2021-10-19 17:44 | NUR ---
THIS RN TO ROOM TO CHECK ON PT. PT BACK TO BED AFTER DINNER. PT REPORTS 8/10 PAIN IN RIGHT ARM, MD AWARE, PT UPDATED ON TIMING FOR NEXT PAIN MEDICATION. PT BOOSTED IN BED AND REPORTS FEELING COMFORTABLE. SCD'S, HEEL PROTECTORS IN PLACE. NO ADDITONAL REQUESTS OR COMPLAINTS. CALL LIGHT WITHIN REACH. BED RAILS UP.
--- NOTE | 2021-10-19 18:52 | NUR ---
THIS RN TO ROOM TO CHECK ON PT. PT RESTING IN BED. PT ASSISTED WITH CHANGING TV CHANNELS. PT DENIES REQUESTS OR COMPLAINTS. CALL LIGHT WITHIN REACH. BED RAILS UP.
--- NOTE | 2021-10-19 21:03 | NUR ---
ENSURE CHOCOLATE FLAVOR PROVIDED.
--- NOTE | 2021-10-19 21:49 | NUR ---
much more alert and oriented today, coop with assessment. on room air, lungs clear bila. Has used the urinel several times since begining of shift. has tolerated snacks and ensures well. dry non productive cough heard occassionally. L arm much improve. pt able to reposition and move R arm grabbing wrist with L hand. no edema noted R arm, very minimum bruising present on R shoulder, back, axillary area and arm. purplish bruise R lateral improving. Bruising center chest, L arm resolving, bruisngn bilat hip bone area and L inner thigh improving. R abd hernia and urinary stent present. small raised area R mid pubic over protruding hernia. another light raised area noted R low neck area. Gown and linen changed as he was incontinent too. cooperative, used urinal while changing too, voiding clear yellow urine. skin care plus Venicream applied to whole back and arms clean attends in place, heel protectors to heel and R elbow. Medicated with Oxycodone 2.5mg per c/o R arm pain. hob elevated to comfort, call light and fluidsa t hands reach. Bed alrm in place,
--- NOTE | 2021-10-19 23:27 | NUR ---
rESTING, EYES CLOSED, NO DISTRESS. CLL LIGHT AND FLUIDSA T BEDSIDE, BED ALARM ON
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
--- NOTE | 2021-10-20 03:06 | NUR ---
PT WAS INCONTINENT OF URINE. HIS ATTENDS AND CHUXAND GOWN WERE WET. PT WAS CLEANED WITH WARMED BATH WIPES. GOWN, ATTENDS AND CHUX WERE CHANGED. SLING WAS PLACED ON PT'S RIGHT ARM TO HELP STABILIZE DURING CARES AND TURNING.
--- NOTE | 2021-10-20 03:25 | NUR ---
pt used call light, voided in urinal, asked for cranberry use. coop with assessment, no changes lungs, clear, R arm sling in place. call light and fluids at hands reach, bed alrm in place
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
--- NOTE | 2021-10-20 06:30 | NUR ---
Pt incontinent of urine in attends, skin care done. irritable but redirectable.Sling in R arm, call light and fluids at bedside, Bed alarm in place. heel and elbow protectors removed at his requests
--- NOTE | 2021-10-20 07:41 | NUR ---
REPORT FROM VITALIY ALCANTARA RN.
--- NOTE | 2021-10-20 08:00 | NUR ---
PT LAYING IN BED. PT DECLINED WARM WASH CLOTH. PT ASSISTED TO CHAIR BY 1 PA DONE BY MARQUEZ. PT GIVEN A NEW GOWN. WHEN CHECKED PT HAD USED URINAL AND DEPENDS WAS DRY. FRESH ICE WATER GIVEN. BED MADE. WARM BLANKET GIVEN. PRIOR TO LEAVING ROOM PT REQ MORE ICE WATER AND ORANGE JUICE. BOTH GIVEN TO PT. NO FURTHER NEEDS. CALL LIGHT WITHIN REACH.
--- NOTE | 2021-10-20 08:58 | NUR ---
MEDICAL CHART PACKET FAXED TO [facility] FOR REVIEW OF PLACEMENT POSSIBILITES.
--- NOTE | 2021-10-20 09:35 | NUR ---
PT IN BED. VITALS AND I'S AND O'S TAKEN. PT DECLINED NEEDING TO USE THE RESTROOM. PER PT REQ MORE COFFEE PROVIDED. NO FURTHER NEEDS. CALL LIGHT WITHIN REACH.
--- NOTE | 2021-10-20 10:06 | NUR ---
MORNING ASSESSMENT IS DONE. PATIENT AGREED TO WEAR NICOTINE PATCH. FRIEND IN ROOM DISCUSSING HOUSING POSSIBILITIES WITH PATIENT. PATIENT DENIES NEEDS AT THIS TIME.
--- NOTE | 2021-10-20 11:30 | NUR ---
Called and spoke with Nimco Boyce from [facility]. She states they are in need of a release from [facility] for Lele to be his medical scientific officer so they can speak with him. They have mailed the form. She is unsure where the form was sent. I asked if they could fax the form to me and I will fax it back when he signs. She states she will soeak with the person who did the financial eval and call me back. UPdated all SNFS have declined to take this pt. [employer] faxed the chart to Alexandre Quintero this am. I need to know if he will qualify for medicaid placement funds. She states she will call me back and speak with Anna Moscoso to see when she would be able to complete the physical assessment.
--- NOTE | 2021-10-20 11:50 | NUR ---
RANDALL FROM [facility] RESPONDED TO A MESSAGE I HAD LEFT AND SAYS [facility] IS NOT GOING TO TAKE THE PATIENT THEY DO NOT FEEL THE PATIENT HAS A A DC PLAN GOOD ENOUGH TO KEEP PATIENT FROM BEING STUCK AT THE FACILITY IN A NEWS EDITOR CARE CAPACITY THAT THEY MAY NOT BE ABLE TO ACCOMIDATE ESPECIALLY GIVEN HIS NEW CANCER DX'S. AWAITING A RESPONSE FROM [facility] TO SEE IF THEY MIGHT BE ABLE TO TAKE THE PATIENT AT THEIR FACILITY.
--- NOTE | 2021-10-20 13:19 | NUR ---
THIS RN HAS RECEIVED SHIFT REPORT FROM HARRISON RUSH AND I WILL BE TAKING OVER PATIENT'S CARE FOR THE REMAINDER OF THE SHIFT. PATIENT CURRENTLY RESTING QUIETLY IN SEMI-FOWLERS POSITION, EYES CLOSED, CALL LIGHT IN REACH. PATIENT HAS NO NURSE CARE NEEDS AT THIS TIME.
--- NOTE | 2021-10-20 13:45 | NUR ---
PT IN BED. VITALS AND I'S AND O'S TAKEN. NO FURTHER NEEDS. CALL LIGHT WITHIN REACH.
--- NOTE | 2021-10-20 14:00 | NUR ---
Received fax from [facility] for Application for [employer] and Authorized Editor & Co Founder form. Called Lele and he will be back tomorrow and will sign the medical rep form. Took the Medic[employer] application form to pts with the 10 pages of his initial eval. 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
--- NOTE | 2021-10-20 14:11 | NUR ---
PT ALERT, ORIENTED AND WATCHING TV. PT WELCOMED ME IN, HAVING A ROUGH DAY. PT MENTIONED HE THINKS HE IS TO GO TO A SNF TOMORROW. GAVE ENCOURAGEMENT, PT REQUESTED PRAYER. WILL FOLLOW
--- NOTE | 2021-10-20 14:27 | NUR ---
THIS RN IN TO SEE PATIENT AND DID AFTERNOON ASSESSMENT. PATIENT HAS NO MORE ALLEVYNS AND ALL AREAS HAVE DRIED OUT AND SCABBED UP. PATIENT HAS NO C/O PAIN OR NAUSEA AND DENIES ANY CARE NEEDS AT THIS TIME. CALL LIGHT IS IN REACH.
--- NOTE | 2021-10-20 15:10 | NUR ---
THIS RN IN AND APPLIED ANTIBIOTIC CREAM TO PATIENT'S ABD SORE AND REAPPLIED A BANDAID OVER IT. PT NOW IN ROOM AND WORKING WITH PATIENT CALL LIGHT IS IN REACH.
--- NOTE | 2021-10-20 17:00 | NUR ---
PATIENT CALLED FOR PAIN MEDICATION FOR RIGHT ARM PAIN OF 09/07. 2.5MG PO OXYCODONE GIVEN. PATIENT UP IN THE BEDSIDE ARMCHAIR AND DINNER HAS JUST ARRIVED AND MARQUEZ ORDAZ IS SETTING UP PATIENT'S MEAL FOR HIM. PATIENT HAD NO OTHER NURSE CARE NEEDS FOR THIS RN AT THIS TIME.
--- NOTE | 2021-10-20 17:30 | NUR ---
PT ASSISTED TO BED. PT VITALS AND I'S AND O'S TAKEN. NO FURTHER NEEDS. CALL LIGHT WITHIN REACH.
--- NOTE | 2021-10-20 19:10 | NUR ---
REPORT RECEIVED FROM LY TERRY. PT IS ASKING FOR MORE "ITCH" CREAM. IT WAS APPLIED AT 1751 AND IS SNOT AVAILABLE TO REAPPLY THIS SOON. PT IS ADVISED IT CAN BE GIVEN LATER. CALL LIGHT AND URINAL IN REACH.
--- NOTE | 2021-10-20 20:35 | NUR ---
URINAL EMPTIED. PT'S GOWN AND CHUX ARE DAMP WITH URINE. PT IS CLEANED. GOWN, ATTENDS AND CHUX ARE CHANGED . PT TOLERATED TURNING WELL. HE DOES HAVE HIS SLING ON DURING PROCEDURES.
--- NOTE | 2021-10-20 22:07 | NUR ---
PT REQUESTING SNACKS. GIVEN PUDDING AND PHILL CRACKERS.
--- NOTE | 2021-10-20 23:23 | NUR ---
PT STOOD AT BESIDE WITH HEMIWALKER AND VOIDED. HE WAS ASSISTED BACK TO BED AND REPOSITIONED WITH PILLOWS. HE HAS HIS CHANNEL CHANGER AND CALLL LIGHT IN REACH WELL HIS URINAL.
--- NOTE | 2021-10-20 23:41 | NUR ---
PT HAS MADE REPEATED REQUESTS FOR HIS BACK SCRATCHED, JUICE, SNACKS, AND HAVE HIS BED REMADE. ALL NEEDS WERE ADDRESSED AND PT SEEMS MORE COMFORTABLE.
--- NOTE | 2021-10-21 05:53 | NUR ---
IN TO DO VS, PT WITH EYES CLOSED, RESPONDS TO REQUESTS. NO NEEDS AT THIS TIME.
--- NOTE | 2021-10-21 07:27 | NUR ---
THIS RN RECEIVED SHIFT REPORT FROM HARRISON MORALES. PATIENT RESTING QUIETLY IN LOW FOWLERS POSITION, EYES CLOSED, RESPIRATIONS ARE REGULAR AND EVEN, AND CALL LIGHT IS IN REACH. PATIENT HAS NO NURSE CARE NEEDS AT THIS TIME.
--- NOTE | 2021-10-21 08:00 | NUR ---
THIS RN IN TO SEE PATIENT. PATIENT HAS COMPLAINT OF 9/10 RT ARM AND SHOULDER PAIN. 2.5MG OXYCODONE GIVEN WITH AM MEDS. PATIENT'S BREAKFAST HAS ARRIVED AND AM ASSESSMENT COMPLETE. AM CREAMS APPLIED. URINAL EMPTIED. PATIENT DENIES ANY OTHER CARE NEEDS AT THIS TIME. CALL LIGHT IS IN REACH.
--- NOTE | 2021-10-21 09:30 | NUR ---
Pt discussed in am meeting with Dr. Babcock. CM cont. to attempt to place this pt. He can no longer live at his friends home as he requires to much care for Lele and his . WE have contacted multiple nursing homes, AF, and ALFS/Residential care. All have declined. Pt was declined by [facility] yesterday as they are concerned pt will need residential care. The do not have the beds to keep any pts residential. Pt's chart was faxed to [place] to [facility] and [facility] today. Asked if they could eval this pt for placement. I also asked Vandana, if pt is accepted for residential care if they would take this pt for rehab. Per RANDALL he spoke with Pantera, Intermediate Card Tender, and he is agreeable to review this chart again. Oma from [facility] states they don't have any medicaid beds open, she will speak with management to check if they can take this pt anyway. Esther from [place] to [facility] will review the chart and requested updated progress notes and nurses notes. All faxed.
--- NOTE | 2021-10-21 10:10 | NUR ---
Pts friend, Lele, here. Took papers from [facility] to room and pt and Lele signed. Originals given to Lele and he will take to Nimco Boyce at [facility] along with bank statements.
--- NOTE | 2021-10-21 10:47 | NUR ---
PATIENT CALLED REQUESTING JUICE. PATIENT HAS TERESA-D IN THE FRIDGE AND A BOTTLE WAS TAKEN TO HIM. PATIENT HAD NO OTHER CARE NEEDS AT THIS TIME. CALL LIGHT IS IN REACH.
--- NOTE | 2021-10-21 14:43 | NUR ---
PATIENT CALLED WANTING PAIN MEDICATION FOR RT ARM/SHOULDER PAIN / AND AN ITCHY RIGHT ELBOW. 2.5MG PO OXYCODONE GIVEN AND BENARYL CREAM APPLIED TO RT ELBOW. AFTERNOON ASSESSMENT COMPLETE. PATIENT HAVE AN ARGUMENT WITH HIS MALE FRIEND IN THE ROOM. THIS RN STEPPED OUT FOR PRIVACY. CALL LIGHT IS IN REACH.
--- NOTE | 2021-10-21 16:44 | NUR ---
PATIENT RESTING QUIETLY IN SEMI-FOWLERS POSITION, RESPIRATIONS REGUALR AND EVEN, EYES CLOSED, AND CALL LIGHT IN REACH. PATIENT HAS NO CURRENT NUSING CARE NEEDS AT THIS TIME.
--- NOTE | 2021-10-21 18:49 | NUR ---
THIS RN IN TO CHECK ON THE PATIENT AND HE SAYS,"I'M DOING ALRIGHT." PATIENT DENIES ANY CARE NEEDS AT THIS TIME AND IS WATCHING TV. CALL LIGHT IS IN REACH.
--- NOTE | 2021-10-21 19:15 | NUR ---
REPORT RECEIVED FROM LY TERRY. PT IS AWAKE AND ALERT. WATCHING TV IN BED. SAID HIS BACK AND RIGHT ELBOW ARE ITCHY. DISCUSSED TIMES AND TYPES OF CREAMS AVAILABLE. PT OK WITH THAT.
--- NOTE | 2021-10-21 21:35 | NUR ---
PT WAS CLEANED AND CHANGED AFTER AN INCONTINENT EPISODE. HE HAD BENADRYLCREAM APPLIED TO HIS RIGHT ARM PER ORDER.HAD VANICREAM APPLIED TO HIS BACK AND SHOULDERS.
--- NOTE | 2021-10-22 00:40 | NUR ---
EMPTIED URINAL. CHANGED ATTENDS, GOWN AND PILLOW CASES. PRIMARY RN AND THIS WOOD CHOPPER. PATIENT BOOSTED UP IN BED. CALL LIGHT AND SIDE TABLE WITHIN REACH.
--- NOTE | 2021-10-22 00:42 | NUR ---
PT WAS GIVEN 2.5 MG PO OXYCODONE FOR CONTINUED PAIN IN HIS RIGHT SHOULDER. HE WAS SALSO GIVEN MELATONIN 6 MG PO FOR SLEEP.
--- NOTE | 2021-10-22 02:00 | NUR ---
PT APPEARS TO BE SLEEPING. HE WAS GIVEN MELATONIN 6 MG PO BEFORE MN. THIS SEEMS TO WORK WELL FOR HIM.
--- NOTE | 2021-10-22 07:45 | NUR ---
REPORT RECEIVED FROM NIGHT RN AND PT. CARE RESUMED. PT. IS ALERT AND ORIENTED TO ALL. ASSESSMENT COMPLETED. NEW SLING PLACED ON R ARM. PT. IS AGITATED AND VERBALLY ABUSIVE TO STAFF THIS MORNING. HE STATES HE IS ANGRY BREAKFAST IS NOT HERE AND HE HAS TO SIT IN THE CHAIR. PATIENT IS CURSING AND STATES HE IS GOING TO YELL IF HE DOES NOT GET BREAKFAST. PT. BROUGHT ENSURE AND APPLE SAUCE. PT. STATES HE "DOES NOT LIKE THE FUCKING STRAWBERRY AND I ALREADY TOLD YOU PEOPLE THAT!" THIS NURSE DISCUSSED APPROPRIATE COMMUNICATION AND BEHAVIOR. PT. LEFT RESTING WITH CALL LIGHT IN REACH.
--- NOTE | 2021-10-22 09:00 | NUR ---
PT. USED CALL LIGHT TO ASK FOR COFFEE. BROUGHT COFFEE. DENIES FURTHER NEEDS.
--- NOTE | 2021-10-22 09:55 | NUR ---
Received notification from Oma at [facility], they cannot take this pt as they do not have any medicaid beds open.
--- NOTE | 2021-10-22 10:46 | NUR ---
FAXED CLINICALS TO [facility] WITH RETURN CONFIRMATION 10/22/21 1040AM. SENT FACESHEET/ED REPORT/H&P/LAST 4 PROG NOTES/PT EVAL AND LAST 3 NOTES/OT EVAL AND LAST 3 NOTES/CURRENT MED LIST.
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
--- NOTE | 2021-10-22 13:00 | NUR ---
Received a text from [facility], they will take this pt. They would like him there midmorning. I will contact the van and check available times for transport tomorrow.
--- NOTE | 2021-10-22 13:30 | NUR ---
Spoke with [facility], they have an opening at 1000 tomorrow and will need to use our wc. Notified [facility]. Notified Dr. Babcock and he will complete orders. In and spoke with pt. he states he understands. States, "I guess Brooks homeless as I can't return to Lele's because I need alot of help". Let him know I have left a message for Lele pt will discharge tomorrow at 10.
--- NOTE | 2021-10-22 14:13 | NUR ---
PT ALERT, ORIENTED AND SITTING IN BED WATCHING TV. PT HAD HAD TRIP OUTSIDE WITH P.T. SEEMED TO ENJOY. TALKED ABOUT FISHING, PT GAVE HIS BACKGROUND, ENCOURAGEMENT SHARED AN PRAYED WITH PT. WILL FOLLOW
--- NOTE | 2021-10-22 14:30 | NUR ---
Received written orders from Dr. Gloria VARELA, orders, covid test from [facility], Covid vaccin documentation, and POLST to K[facility] at [facility] with a note I will fax the dc summary in the AM.
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
--- NOTE | 2021-10-22 15:30 | NUR ---
PT. C/O ITCHING ON R SHOULDER CREAM APPLIED. PT. ASKED FOR THE NONEMERGENT POLICE NUMBER. CHARGE NURSE IN THE ROOM TO ASSIST.
--- NOTE | 2021-10-22 19:07 | NUR ---
PT CALL LIGHT ON. PT REPORTS HIS BACK IS ITCHING, BENADRYL CREAM NOT YET DUE. LOTION APPLIED. PT REPORTS 9/10 PAIN IN RIGHT ARM, PT VERBALIZES UNDERSTANDING OF PAIN CONTROL OPTIONS. MD AWARE. NO ADDITIONAL REQUESTS OR COMPLAINTS. CALL LIGHT WITHIN REACH. PTS PRIMARY RN UPDATED.
--- NOTE | 2021-10-22 19:41 | NUR ---
PT REQUESTING HEEL PROTC. TO BE PUT ON, PT WOULD LIKE AN ENUSRE, PROVIDED, NO FURTHER NEEDS AT THIS TIME
--- NOTE | 2021-10-22 19:55 | NUR ---
PT CALLED AGAIN, PT WORRIED ABOUT HOW HE WILL BE ABLE TO GET MAIL DELIVERED TO HIS HALF-WAY, TOLD PT WE WILL FIND OUT
[2021-10-22] MEDS ORDERED: OXYCODONE HCL5 MG PO (21:24)
--- NOTE | 2021-10-23 02:17 | NUR ---
PATIENT CALLED AND REQUESTED JUICE. JUICE PROVIDED PER ORDER. NO FURTHER NEEDS NOTED. CALL LIGHT IN REACH.
--- NOTE | 2021-10-23 05:34 | NUR ---
PT RESTING TONIGHT, MEDICATED FOR ITCHY BACK AND RIGHT UPPER ARM. ORAL PAIN MEDICATION GIVE IN THE NIGHT. VOIDING CLEAR YELLOW URINE.
--- NOTE | 2021-10-23 08:00 | NUR ---
Spoke with [facility] and and Pepe from the van. All remains in place for this pt to dc today. Per Dr. Babcock he does not currently have priviledges to write RX for pain pills as this has not been set up through medicare and medicaid. Let him know I will get the RX from Dr. Conti our other hospitalist if he is in the clinic today.
--- NOTE | 2021-10-23 08:30 | NUR ---
Called the clinic and Dr. Conti is not in today. Called pts pcp office and spoke with Rakel, she will check with Dr. Nixon Goldstein and see if he would be willing to write the rx for pain pills for this pt.
--- NOTE | 2021-10-23 08:36 | NUR ---
Oxycodone 2.5mg po admin for reports of 7/10 right arm pain.
--- NOTE | 2021-10-23 09:50 | NUR ---
Spoke with Dr. Meléndez from the ER and he wrote RX for 20 oxy. Rx placed in envelope and sent with pt in an envelope.
--- NOTE | 2021-10-23 16:45 | NUR ---
Received a message from pt's friend Lele, he states he has Shameka gay.
== END 2021-10-23 10:00 | DRG 871 ==
LOC: ED 07:50 → CCU 13:40 → MS 10-02 12:00
PROVIDERS: ADMIT Internal Medicine; ATTEND Internal Medicine
PROC: 3E03329 Introduction of Other Anti-infective into Peripheral Vein, Percutaneous Approach (ICD-10-PCS; principal; 2021-10-01)
PROC: 02HV33Z Insertion of Infusion Device into Superior Vena Cava, Percutaneous Approach (ICD-10-PCS; 2021-10-03)
DX: A41.81 Sepsis due to Enterococcus (principal); G93.41 Metabolic encephalopathy; S32.029A Unspecified fracture of second lumbar vertebra, initial encounter for closed fracture; S32.129A Unspecified Zone II fracture of sacrum, initial encounter for closed fracture; S32.139A Unspecified Zone III fracture of sacrum, initial encounter for closed fracture; S42.211A Unspecified displaced fracture of surgical neck of right humerus, initial encounter for closed fracture; N17.9 Acute kidney failure, unspecified; E87.1 Hypo-osmolality and hyponatremia; N30.00 Acute cystitis without hematuria; D68.4 Acquired coagulation factor deficiency; C78.5 Secondary malignant neoplasm of large intestine and rectum; C79.2 Secondary malignant neoplasm of skin; Z20.822 Contact with and (suspected) exposure to COVID-19; A41.02 Sepsis due to Methicillin resistant Staphylococcus aureus; R65.20 Severe sepsis without septic shock; E87.6 Hypokalemia; L02.221 Furuncle of abdominal wall; R29.6 Repeated falls; D69.6 Thrombocytopenia, unspecified; I25.10 Atherosclerotic heart disease of native coronary artery without angina pectoris; N18.9 Chronic kidney disease, unspecified; I12.9 Hypertensive chronic kidney disease with stage 1 through stage 4 chronic kidney disease, or unspecified chronic kidney disease; J98.4 Other disorders of lung; E78.00 Pure hypercholesterolemia, unspecified; F17.210 Nicotine dependence, cigarettes, uncomplicated; Z85.819 Personal history of malignant neoplasm of unspecified site of lip, oral cavity, and pharynx; N40.0 Benign prostatic hyperplasia without lower urinary tract symptoms; K70.31 Alcoholic cirrhosis of liver with ascites; F10.10 Alcohol abuse, uncomplicated; G89.4 Chronic pain syndrome; W06.XXXA Fall from bed, initial encounter; Z93.1 Gastrostomy status; Z87.81 Personal history of (healed) traumatic fracture; Z79.899 Other long term (current) drug therapy; Z79.891 Long term (current) use of opiate analgesic; Z98.890 Other specified postprocedural states
CPT/HCPCS: 36415; 70450; 71045; 73030; 74177; 80048; 80053; 80202; 81001; 83605; 83735; 84132; 85025; 85060; 85610; 87040; 87077; 87088; 87186; 87502; 93005; 93010; 94760; 97110; 97116; 97163; 97166; 97530; 97535; A9270; C9803; G0480; J0692; J1885; J2405; J3370; J3475; J3480; J7030; J7050; J7060; J7131; Q9967; U0003

== ENCOUNTER 2021-12-30 15:33 | Inpatient (IN) | payer MEDICARE, OTHER ==
[~2021-12-30] VITALS: Ht 170.2 cm; Wt 46.7 kg
--- NOTE | 2021-12-30 18:50 | NUR ---
REPORT RECEIVED FROM HARRISON DÍAZ. AWAITING PTS ARRIVAL TO MED/SURG.
--- NOTE | 2021-12-30 19:30 | NUR ---
PT ARRIVED FROM ER VIA BED. TRANSFERRED WITH 3 PA TO [facility] SUR[facility] BED. PT IS ALERT AND ORIENTED TO ALL BUT DATE/TIME. DEPENDS PLACED D/T FREQUENT INCONTINENCE, CONDOM CATH PULLED OFF DURING MOVE FROM ER BED TO MEDR BED. VITAL SIGNS COMPLETE. NONSLIP SOCKS PLACED. ICE WATER PROVIDED AT BEDSIDE. IV IS PATENT AND HAS BRISK BLOOD RETURN. REAL ESTATE REPHARRISON EMANUEL AT BEDSIDE PERFORMING ADMISSION.
--- NOTE | 2021-12-30 19:45 | NUR ---
PT ADMITTED FROM ED @ 1933 TO ROOM 119. ALERT, REQUIRED STAFF TO MOVE HIM OVER FROM STRETCHER TO BED. STATES HE WALKS AT HOME. NOT ATE FOR COUPLE DAYS, DOESN'T TAKE MEDICATIONS BECAUSE "CAN'T REMEMBER WHAT TO TAKE". RA LIVES AT HOME WITH ROSE Godoy CELL PHONE AT BEDSIDE. WALLET PLACED IN GREEN PATIENT BAG, INSIDE HIS WET DIRTY CLOTHES PT BAG. ASKED PT IF HE KNOWS HOW TO CALL US, HE SAID YES 911, I NEED TO GO TO THE HOSPITAL. REMINDED HIM HE WAS IN THE HOSPITAL, HE SAID YES. THEN HE SAID HE WANTED TO CALL A CAB TO TAKE HIM HOME. REMINDED HIM THAT HE IS SICK, AND NEEDS MEDICATIONS AND WILL RETURN HOME WHEN HE IS BETTER. DRANK CUP WATER, REFILLED. DENIED WANTING FOOD, EVEN PUDDING. STATES HE DRINKS BEER, HASN'T DRANK "FOR COUPLE DAYS", BUT STILL HAVE 3 LEFT FROM THE "6 PACK" HE BOUGHT OVER WEEKEND. DENIES DRUG USE, BUT OCCASSIONAL THC USE. BED ALARM PLACED.
--- NOTE | 2021-12-30 19:47 | NUR ---
CALL MADE TO DR CALERO THERE IS NO DIET ORDER IN PLACE. TELEPHONE ORDER READ BACK FOR REGULAR DIET. PRODUCT DISTRIBUTION SPECIALISTHARRISON EGAN MADE AWARE.
--- NOTE | 2021-12-30 20:21 | NUR ---
IN ROOM FOR CLAY GRINDER AND PT ASSESSMENT. PT IS ALERT AND ORIENTED TO ALL BUT DATE AND TIME. PT STATES HE IS NOT EXPERIENCING ANY PAIN, NAUSEA, DIZZINESS, CHEST PAIN, N/T. BEDDING CHANGED D/T INCONTINENCE, CONDOM CATH PLACED BY ДМИТРИЙ TERRY. PT HAD SMALL, HARD BM. FLUIDS INFUSING DIRECTED, PT ABLE TO SWALLOW ORAL MEDS WITHOUT DIFFICULTY. WASHCLOTH WITH COBAN PLACED ON AC TO PREVENT DISLODGEMENT OR OCCLUSION.
--- NOTE | 2021-12-31 00:01 | NUR ---
IN ROOM TO ASSIST TO REPOSITION IN BED. PT HAD REMOVED CLOTHING AND GOWN. INCOTINENT OF MEDIUM SIZED FIRM BM WITH SOFT BM ALSO. VENESSA CARE DONE. PT NOT COOPERATIVE DURING CARES AND NOT ABLE TO ASSIST. VENESSA CARE DONE BY STAFF AND CLEAN BRIEF IN PLACE. LINENS AND GOWN CHANGED. PT WITH INCREASED CONFUSION AND NOT ANSWERING ORIENTATION QUESTIONS. WILL ANSWER SIMPLE YES OR NO QUESTIONS. DENIES PAIN. VS WNL. PT MOVED NEAR NURSES STATION FOR CLOSER OBSERVATION. ALL BELONGINGS MOVED WITH PT. BED ALARM FOR SAFETY.
--- NOTE | 2021-12-31 00:29 | NUR ---
IV PUMP ALARMING. PT PULLED IV OUT OF LEFT AC. TIP INTACT. PT CONTINUES PULLING OFF CLOTHING AND BLANKETS AND PUTTING LEGS OVER SIDERAILS. ATTEMPTED TO REORIENT. PT REMAINS CONFUSED. BED ALARM FOR SAFETY. IN VIEW OF NURSES STATION.
--- NOTE | 2021-12-31 01:18 | NUR ---
IN ROOM FOR NEW IV PLACEMENT FOR CONTINUOUS FLUIDS D/T PT PULLING OUT 1ST IV. PT WAS COOPERATIVE WITH INTERVENTION, LESS RESTLESS. IV NOW IN PLACE RUNNING CONTINUOS FLUIDS DIRECTED. SECURED WITH COBAN TO PREVENT REMOVAL. CALL LIGHT WITHIN REACH, BED ALARM ON.
--- NOTE | 2021-12-31 01:30 | NUR ---
IN PT ROOM FOR MEDIA SENIOR RECRUITER. PT SWALLOWED 1 OF 3 KLOR-CON PILLS WITH AN ENTIRE ENSURE, APPLESAUCE AND WATER. THE OTHER 2 THE PT REFUSED TO SWALLOW AND WOULD ONLY SUCK ON THE PILLS IN HIS MOUTH. BED ALARM ON, CALL LIGHT WITHIN REACH, NO FURTHER NEEDS AT THIS TIME.
--- NOTE | 2021-12-31 06:44 | NUR ---
IN PT ROOM TO ASSIST WITH BED CHANGE D/T INCONTINENCE. NEW BEDDING, NEW DEPENDS, VENESSA CARE PERFORMED, CONDOM CATH REMOVED. NO SIGNS OF SKIN BREAKDOWN ON REAR SIDE. NO ACUTE CHANGES FROM PREVIOUS ASSESSMENT. PT IS NONCOMPLIANT TO ANYTHING ON BODY AND RARELY FOLLOWS COMMANDS (REMOVES BLANKETS, GOWN). PT REPORTS NO PAIN, N/T, DIZZINESS, NAUSEA, OR DIFFICULTY BREATHING. IV FLUIDS INFUSING DIRECTED, SITE SECURED W/COBAN TO PREVENT PT REMOVAL. NO ACUTE CHANGES FROM PREVIOUS ASSESSMENT. CALL LIGHT WITHIN REACH, BED ALARM ON, NO FURTHER NEEDS AT THIS TIME.
--- NOTE | 2021-12-31 07:03 | NUR ---
REPORT RECEIVED FROM HARRISON GUILLERMO. PT RESTING IN BED ON BACK IN SUPINE POSITION WITH EYES CLOSED, RESPIRATIONS EVEN AND UNLABORED. BED RAILS UP. CALL LIGHT WITHIN REACH. BED ALARM ON. HEAD OF BED ELEVATED TO 15 DEGREES.
--- NOTE | 2021-12-31 07:22 | NUR ---
UNEVENTFUL NIGHT FOR PT. ADMITTED AT 1930, THROUGHOUT NIGHT RESTLESS AND NONCOMPLIANT TO FOLLOWING COMMANDS. FREQUENTLY INCONTINENT AND DOES NOT USE CALL LIGHT. BED ALARM MUST BE ON FOR RESTLESSNESS. PT REPORTS NO PAIN, NAUSEA, DIZZINESS, SOB THROUGHOUT SHIFT. NO PRN MEDS GIVEN. PT PULLED OUT LAC IV AND REPLACED IN LEFT BICEP, SECURED WITH COBAN. PT DID NOT TAKE 2 OF LAST 3 KLOR-CON. VSS. FREQUENTLY DROWSY AND ORIENTED TO ONLY SELF. NO SIGNS OF SKIN BREAKDOWN ON REAR, FREQUENTLY REPOSITIONS SELF IN BED. VERY HEAVY 2PA D/T WEAKNESS.
--- NOTE | 2021-12-31 08:13 | NUR ---
MORNING ASSESSMENT AND MEDICAITON DUE. PT RESTING IN BED WITH EYES CLOSED. LAB AT BEDSIDE FOR MORNING LAB DRAW. PT REPSONDS TO VOICE BUT DOES NOT OPEN EYES TO COMMAND. PT DENIES PAIN AND NAUSA REPORTING HE FEELS COMFORTABLE. PT OREINTED TO PERSON AND PLACE BUT IS UNABLE TO STATES MONTH ("APRIL"), YEAR OR REASON FOR HOSPITALIZATION. PT FOLLOWS DIRECTIONS INCONSISTANTLY, DOES NOT SQUEEZE HANDS WHEN ASKED OR OPEN EYES, BUT DOES ROLL SIDE TO SIDE FOR DEPENDS CHANGED. VENESSA CARE DONE. DEPENDS CHANGED. DEPENDS HAS SMALL AMOUNT OF WETNESS AT THIS TIME. GENERALIZED WEAKNESS CONTINUES. PT RESPONDS TO TOUCH IN ALL EXTREMITIES INDICATING SENSATION IS LIKELY INTACT. LUNG SOUNDS CLEAR. HEART TONES REGULAR. ABDOMEN SOFT AND NON TENDER. CIWA OF 2 AT THIS TIME RELATED TO PTS DISORIENATION AND INABILITY TO ADD NUMBERS. MEDICAITON GIVEN. PT TAKES SIPS OF ENSURE. NO ADDITIONAL NEEDS AT THIS TIME. CALL LIGHT WITHIN REACH. BED RAILS UP. BED ALARM ON.
--- NOTE | 2021-12-31 08:51 | NUR ---
PT NOTED TO HAVE SPIT OUT SMALL AMOUNT OF HIS CARVAIDOL. REMAINING PILL PLACED BACK IN MOUTH AND PT SWALLOWS IT WITH SIPS OF ENSURE. IV INFUSION COMPLETE. IV SALINE LOCKED AND COVERED WITH A SOCK TO PROTECT SITE. ALCOHOL CAP APPLIED. PT CONTINUES RESTING IN BED, FOLLOWING MINMAL DIRECTIONS. BED RAILS UP. CALL LIGHT WITHIN REACH. BED ALARM ON.
--- NOTE | 2021-12-31 09:20 | NUR ---
THIS RN TO ROOM TO CHECK ON PT. PT RESTING IN BED ON LEFT SIDE WITH EYES CLOSED. RESPIRATIONS EVEN AND UNLABORED. BED RAILS UP. CALL LIGHT WIHTIN REACH. BED ALARM ON. PT ALLOWED TO REST.
--- NOTE | 2021-12-31 10:18 | NUR ---
THIS RN TO ROOM TO CHECK ON PT. BROWN FLUID NOTED OVER PTS CHEST. PT DENIES NAUSEA AND DENIES EMESIS. FLUIDS LOOKS STOOL LIKE IN [place]. PT CLEANED, NEW SHEETS APPLIED. ZOFRAN GIVEN. PT BOOSTED IN BED. HEAD OF BED REMAINS ELEVATED TO [address] CALERO CALLS AND REQUESTS PT WORK WITH PHYSICAL THERAPY. DR CALERO UPDATED ON PT STATUS. OCCPATIONAL THERAPY TO BEDSIDE. THIS RN AND OT ATTEMPT TO SIT PT AT EDGE OF BED, PT UNABLE TO FOLLOW DIRECTIONS AND UNABLE TO MAINTAIN SITTING POSITION. PT ASSISTED BACK TO BED AND POSITIONED ON LEFT SIDE, SUPPORETED WITH PILLOWS, HEAD OF BED ELEVATED TO 30 DEGREES. LARRY, CASE MANAGEMENT TO BEDSIDE TO EVALUATE PT. PT UNABLE TO COHERENTLY ANSWER QUESTIONS. DR. CALERO UPDATED, STATES HE WILL COME TO EVALUTE PT. NO ADDITONAL NEW ORDERS. NO ADDITIONAL NEEDS AT THIS TIME. BED RAILS UP. CALL LIGHT WITHIN REACH. BED ALARM ON.
--- NOTE | 2021-12-31 10:39 | NUR ---
Resting in Bed.Nursing concerned about patient.Patient not as resposive.HARRISON Mendoza notifed MD to reassess.Patient has cancer and history of falling.Patient would only answer a few questions and go back to sleep. Patient left [facility] in . to live in an Apartment with friend Lele.May need placement if possible.
--- NOTE | 2021-12-31 11:10 | NUR ---
THIS RN TO ROOM TO CHECK ON PT. PT RESTING ON LEFT SIDE WITH EYES CLOSED, RESPIRATIONS EVEN AND UNLABORED. PT AWAKENS TO VOIDE AND FIRM SHAKE, PT SHAKES HEAD "NO" WHEN ASKED IF HE HAS ANY PAIN." PT DOES NOT FOLLOW ANY ADDITIONAL DIRECTIONS. PT ALLOWED TO REST. CALL LIGHT WITHIN REACH. BED RAILS UP. BED ALARM ON.
--- NOTE | 2021-12-31 12:39 | NUR ---
THIS RN TO ROOM TO CHECK ON PT. PTS DEPENDS AND CHUX SATRUATED WITH URIN. PT RESPONDS TO VOICE, WORDS UNINTELLAGABLE. PT DENIES PAIN BUT STATES "YEA" TO ALL OTHER QUESTIONS INCLUDING "WHAT DID THE DOCTOR TELL YOU? " PT STATES "YEA." VENESSA CARE DONE, DEDPENS, CHUX AND DRAW SHEET CHANGED. PT REPOSITIONED TO RIGHT SIDE LYING, SUPPORTED WITH PILLOWS. PT DECLINES LUNCH. PT DENIES ADDITONAL REQUESTS OR COMPLAINTS. CALL LIGHT WITHIN REACH. BED RAILS UP. BED ALARM ON.
--- NOTE | 2021-12-31 12:55 | NUR ---
THIS RN TO ROOM WITH MD FOR ROUNDS. PT RESPONDS INTERMITTANLY TO QUESTIONS AND FOLLOWS SOME COMMANDS BUT NOT ALL. PT KEEPS EYES CLOSED THROUGHOUT ENCOUNTER. BLOOD PRESSURE REASSESSED PER MD REQUEST. NOW 114/64 WITH HEART RATE OF 72. NEW ORDERS PLACED. PT CONTINUES RESTING ON RIGHT SIDE. BED RAILS UP. BED ALARM ON.
--- NOTE | 2021-12-31 13:20 | NUR ---
NEW ORDERS PLACED BY DR CALERO. X-RAY CALLED AND TO BEDSIDE FOR IMAGING. CBG ORDER GIVEN BY DR CALERO, TAKEN AT BEDSIDE, BLOOD SUGAR = 112. IV FLUID BOLUS STARTED. POTASSIUM GIVEN. LAB STATES THEY HAVE ENOUGH URINE FROM PTS ER VISIT TO RUN TOX SCREEN. ORDERS PLACED BY HARRISON PIKE PER DR CALERO. LAB TO BEDSIDE FOR LAB DRAW. NO ADDITONAL NEEDS AT THIS TIME. CALL LIGHT WITHIN REACH. BED ALARM ON. BED RAILS UP.
--- NOTE | 2021-12-31 14:47 | NUR ---
AFTERNOON ASSESSMENT DUE. PT RESTING IN BED. RESPONDS VERBALLLY TO VOICE BUT DOES NOT ALWAYS ANSWER QUESTIONS APPROPRIATLY. PT DENIES PAIN AND REPORTS FEELING "FINE." PT FOLLOWS SOME DIRECTIONS BUT IS VERY INCONSISTANT. PT OREINTED TO SELF AND TOWN BUT DOES NOT KNOW PLACE, TIME, DATE, SURROUNDINGS OR SITUATION. PT REPORTS HUNGER BUT WILL NOT OPEN EYES TO COMMAND. ENSURE PROVIDED. PT ASSISTED WITH DRINKING 1/2 BOTTLE OF ENSURE. PT DENEIS NAUSEA. 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 PHYSICAL THERAPY TO BEDISDE TO WORK WITH PT. PT RESISTS LEG STAIGHTENING EXERCISES. PT REMAINS UNABLE TO MAINTAIN SITTING POSITION. TOE NAILS NOTED TO BE CLUBBED. CIWA REMAINS AT 2. NO NAUSEA NOTED AT THIS TIME. PT REPOSITIONED TO LEFT SIDE LYING IN CASE OF NASUEA. HEAD OF BED ELEVATED TO 30 DEGREES. BED RAILS UP. CALL LIGHT WIHTIN REACH. BED ALARM ON.
--- NOTE | 2021-12-31 15:20 | NUR ---
THIS RN TO ROOM WITH DR CALERO FOR ROUNDS. PT VERBALIZES UNDERSTANDING OF PLAN OF CARE AND STATES HIS QUESTIONS HAVE BEEN ANSWERED. PT DENIES PAIN AND NAUSEA. PT REPORTS HE IS READY TO GET UP TO AMBULATE. PT UP WITH MARQUEZ SEVERINO TO RIDE BY WHEELCHAIR TO THE KITCHEN TO PICK OUT SOME SNACKS. NO ADDITIONAL REQUESTS OR COMPLAINTS. MARQUEZ SEVERINO, WITH PT.
--- NOTE | 2021-12-31 15:57 | NUR ---
THIS RN TO ROOM TO CHECK ON PT. PT RESTING WITH EYES CLOSED, RESPONDS TO VOICE AND STATES "I DON'T NEED ANYTHING, I'M JUST GETTING MY SHIT DONE." PT DENIES PAIN AND NAUSEA. HEAD OF BED REMAINS ELEVATED TO 30 DEGREES. NO ADDITIONAL NEEDS AT THIS TIME. CALL LIGHT WITHIN REACH. BED RAILS UP. BED ALARM ON.
--- NOTE | 2021-12-31 15:59 | NUR ---
PT HERE FOR HYPONATREMIA AND HYPO KALEMIA. PT REMAINS IN BED THIS SHIFT, ATTEMPTS MADE TO GET PT UP WITH OCCUPATIONAL AND PHYSICAL THERAPY BUT PT UNABLE TO MAINTAIN SITTING POSITION. PT REPOSITIONED ABLE. PT HAS VERY MINIMAL APPITITE FOR REGULAR DIET, DRINKS ENSURE OCCATIONALLY. ONE EPISODE OF POSSIBLE EMESIS NOTED THIS SHIFT. ZOFRAN GIVEN. PT DISORINTED TO ALL BUT SELF AND OCCATIONALLY PLACE THIS SHIFT. WORDS GARBLED AND DO NOT ALWAYS FIT THE QUESTION ANSWERED. WORK UP DONE RELATED TO PTS LETHERGY AND CONFUSION. PT FOLLOWS COMMANDS INCONSISTANTLY AND USUALLY HAS EYES CLOSED THIS SHIFT. PT DENIES PAIN SO FAR THIS SHIFT. CIWA SCORES OF 2. BOWEL TONES ACTIVE THIS SHIFT. PT INCONTINANT THROUGH OUT SHIFT, DEPENDS WITH VENESSA CARE. CASE MANAGEMENT INVOLVED. PT DOES NOT USE CALL LIGHT, BED ALARM FOR SAFETY.
--- NOTE | 2021-12-31 16:16 | NUR ---
THIS RN TO ROOM TO CHECK ON PT. PT CONTINUES TO TALK IN GARBLED WORDS THAT DO NOT MAKES SINCE. PT STATES "NO" WHEN ASKED IF HE IS IN PAIN. PT REPOSITIONED TO RIGHT SIDE, SUPPORTED WITH PILLOWS OVER NATHANAEL PROMINANCES. PT ATTEMPTS TO SIT UP WITH REPOSITIONING BUT REMAINS UNABLE TO MAINTAIN A SITTING POSITION. NO ADDITONAL NEEDS AT THIS TIME. PT DECLINES WATER AND ENSURE. HEAD OF BED REMAINS ELEVATED TO 25 DEGREES. BED RAILS UP. BED ALARM ON. CALL LIGHT WITHIN REACH.
--- NOTE | 2021-12-31 17:07 | NUR ---
THIS RN TO ROOM TO CHECK ON PT. PT RESTING IN SUPINE POSITION WITH EYES CLOSED, HAS REPOSITIONED HIMSELF. PT MOVING ARMS AND LEGS, SLOW TO RESPOND TO QUESTIONS. PT ASKED IF HE IS HUNGRY. PT DECLINES DINNER. PT DENIES PAIN AND NASUEA. NO ADDITIONAL NEEDS AT THIS TIME. DEPENDS DRY. BED RAILS UP. CALL LIGHT WITHIN REACH. BED ALARM ON.
--- NOTE | 2021-12-31 18:27 | NUR ---
THIS RN TO ROOM TO CHECK ON PT. PT CONTINUES RESTING WITH EYES CLOSED. REPONDS TO VOICE. DEPENDS CHANGED, VENESSA CARE DONE. PT REPOSITIONED TO LEFT SIDE, SUPPORTED WITH PILLOWS OVER NATHANAEL PROMINANCES. HEAD OF BED ELEVATED TO 25 DEGREES. BED RAILS UP. CALL LIGHT WITHIN REACH. BED ALARM ON.
--- NOTE | 2021-12-31 19:00 | NUR ---
RECEIVED REPORT FROM ROBSON TERRY. PT IS RESTING IN BED WITH EYES CLOSED. RESPIRATIONS ARE EVEN AND UNLABORED, NO SIGNS OF DISTRESS. CONTINUOUS FLUIDS RUNNING DIRECTED (SEE EMAR). CALL LIGHT WITHIN REACH, BED ALARM ON.
--- NOTE | 2021-12-31 19:57 | NUR ---
pt RESTING QUIELTY IN BED, BILATERAL FEET/LEGS HANGING OFF THE EDGE OF THE BED, pt REPOSIIONED IN BED. NO ADDITIONAL NEEDS, CALL LIGHT IN REACH. BED ALARM REMAINS ON FOR SAFETY.
--- NOTE | 2021-12-31 21:18 | NUR ---
IN PT ROOM FOR VITALS, I/O'S, ASSESSMENT. PT IS RESTING IN BED, FREQUENTLY DROWSY. PT IS ORIENTED ONLY TO SELF. REQUIRED REORIENTATION TO SURROUNDING, PT BELIEVES HE IS [place] THE [place] AND LEFT THE HOSPITAL LAST NIGHT. PT RESTLESS AND FREQUENTLY REPOSITIONING SELF IN BED, BED ALARM ON. IV FLUSHES WELL AND CONTINUOUS FLUIDS ARE INFUSING DIRECTED (SEE EMAR). PT REPORTS NO PAIN, NAUSEA, DIZZINESS, N/T, OR SOB. PT DEPENDS DRY AT THIS TIME BUT FREQUENTLY INCONTINENT. PILLOWS PLACED UNDER RT SIDE FOR HIP FLOATING AND UNDER LEGS. NO EVIDENCE OF SKIN BREAKDOWN ON BACK SIDE. PT INFREQUENTLY FOLLOWS COMMANDS. CALL LIGHT WITHIN REACH, NO FURTHER NEEDS AT THIS TIME.
--- NOTE | 2021-12-31 23:02 | NUR ---
PT RESTING IN BED WITH EYS CLOSED. RESPIRATIONS ARE EVEN AND UNLABORED, NO SIGNS OF DISTRESS. CALL LIGHT WITHIN REACH, BED ALARM ON.
--- NOTE | 2022-01-01 00:25 | NUR ---
IN PT ROOM D/T FREQUENT INCONTINENCE. PT HAD SM INCONTINENCE IN DEPENDS AND LARGE INCONTINENCE DURING VENESSA CARE AND DEPENDS CHANGE. NEW BEDDING PROVIDED AND CHUCKS IN PLACE, PAD IN DEPENDS FOR INCONTINENCE. 2 ALLEYVN DATED AND PLACED ON BONY COCCYX PROMINENCES. REPOSITIONED W/PILLOWS PLACED UNDER HIPS FOR FLOATING AND UNDER KNEES D/T PT REFUSAL OF SCD'S. IV FLUIDS ADMINISTERING DIRECTED. BED ALARM ON, CALL LIGHT WITHIN REACH, PT NOW RESTING WITH EYES CLOSED.
--- NOTE | 2022-01-01 03:48 | NUR ---
IN PT ROOM FOR NEW BAG OF CONTINUOUS FLUIDS. CONTINUED AT RATE OF 75 ML/HR (SEE EMAR). IV SITE IS PATENT AND WNL. PT IS RESTING IN BED WITH EYES CLOSED. RESPIRATIONS ARE EVEN AND UNLABORED, NO SIGNS OF DISTRESS. CALL LIGHT WITHIN REACH, BED ALARM ON.
--- NOTE | 2022-01-01 05:38 | NUR ---
IN PT ROOM FOR MORNING VITALS. PT AWAKENS TO VOICE, BUT REMAINS DROWSY. NO ACUTE CHANGES FROM PREVIOUS ASSESSMENT. PT REMAINS ONLY ORIENTED TO SELF. ALLEVYNS IN PLACE ON BACKSIDE FOR PREVENTATIVE MEASURES FOR BONY PROMINENCES. VSS. PERFORMED VENESSA CARE AND DEPENDS CHANGE D/T INCONTINENCE. CHUX, DEPENDS, AND PAD IN PLACE. PT HAS UNPRODUCTIVE OCCASIONAL COUGH, LOWER LUNGS ARE DIMINISHED D/T INABILITY TO TAKE DEEP BREATHS. PT CONTINUES TO NOT FOLLOW COMMANDS. BED ALARM ON, CALL LIGHT WITHIN REACH, FLUIDS INFUSING DIRECTED, NO FURTHER NEEDS AT THIS TIME.
--- NOTE | 2022-01-01 06:57 | NUR ---
UNEVENTFUL NIGHT FOR PT. PT SLEPT MAJORITY OF THE NIGHT. PT REQUIRED FREQUENT CHANGING D/T INCONTINENT EPISODES. PT DISORIENTED TO ALL BUT SELF, FREQUENTLY DROWSY. NO PRN MEDS GIVEN. ALLEVYN PLACED X2 ON BONY PROMINENCES ON BACK PREVENTATIVE MEASURES. PT DOES NOT USE CALL LIGHT APPROPRIATELY OR FOLLOW COMMANDS. BED ALARM ON FOR SAFETY. AM LABS PENDING.
--- NOTE | 2022-01-01 07:20 | NUR ---
recieved shift report. pt in bed, eyes closed. breathing even and unlabored. call light within reach.
--- NOTE | 2022-01-01 08:30 | NUR ---
PT SLEEPING IN BED. PT IS SITTING AT A 45 DEGREE. TRIED WAKING UP SEVERAL TIMES TO EAT BUT PT WOULD NOT WAKE UP ENOUGH TO. RN NOTIFED.
--- NOTE | 2022-01-01 09:57 | NUR ---
PT LAYING IN BED, AWAKE. PT DISORIENTED TO ALL, BUT DATE. PT DENIES PAIN AT THIS TIME. OCCUP. THERAPY IN ROOM AT THIS TIME TO WORK WITH PT. CALL LIGHT WITHIN REACH. BED ALARM ON.
--- NOTE | 2022-01-01 09:58 | NUR ---
MED REC COMPLETE
--- NOTE | 2022-01-01 10:27 | NUR ---
THIS SN INTO PT ROOM WITH PRIMARY NURSE TO PERFORM PT ASSESSMENT. VITALS AND ASSESSMENT DONE. PT ORIENTED ONLY TO SELF. OT ARRIVED TO GET PT UP TO CHAIR, THIS SN STAYED TO ASSIST WITH ADLS AND CHANGE BEDDING. PT TOLERATED WELL AND PARTICIPATED IN PUTTING ON SOCKS AND NEW GOWN. PT NOW AWAKE RESTING IN CHAIR, DRINKING ENSURE, WATCHING TV. 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
--- NOTE | 2022-01-01 11:00 | NUR ---
IN PT ROOM. PT UP IN RECLINER. DENIES ANY FURTHER NEEDS. CALL LIGHT WITHIN REACH.
--- NOTE | 2022-01-01 11:54 | NUR ---
THIS SN INTO PT ROOM TO CHECK ON PT. PT SITTING UP IN CHAIR AWAKE, DRINKING WATER. WARM BLANKET PROVIDED. 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 CHAIR ALARM ON.
--- NOTE | 2022-01-01 12:30 | NUR ---
pt in recliner, awake. call light within reach. chair alarm on. call light within reach.
--- NOTE | 2022-01-01 13:09 | NUR ---
PT UP TO THE BSC. AMBULATE 1PA WITHOUT DIFFICULTY. PT BACK IN CHAIR. CALL LIGHT WITHIN REACH. CHAIR ALARM ON.
--- NOTE | 2022-01-01 14:00 | NUR ---
PT IN RECLINER. DENIES ANY NEEDS AT THIS TIME. CALL LIGHT WITHIN REACH. CHAIR ALARM ON.
--- NOTE | 2022-01-01 14:25 | NUR ---
THIS SN INTO PT ROOM TO CHECK ON PT AND ENCOURAGE DRINKING OF GASTROGRAFIN IN APPLE JUICE; PT DRINKING BUT NEEDS REMINDERS. PT AWAKE SITTING IN CHAIR. VITALS TAKEN, I&O'S RECORDED. PT SHOWED INTEREST IN VS BY ASKING "WHAT'S MY TEMPERATURE". ASSISTED PT TO USE URINAL, NO OUTPUT RECORDED. PT CONTINUES TO BE DISORIENTED TO LOCATION AND DATE OF THE MONTH. PT DENIES ANY OTHER NEEDS AT THIS TIME, CALL LIGHT WITHIN REACH, CHAIR ALARM ON.
--- NOTE | 2022-01-01 15:43 | NUR ---
Pt back to room from ct, IV fluids reconnected. Pt in recliner, chair alarm on, call light in reach.
--- NOTE | 2022-01-01 16:43 | NUR ---
PT REQUESTING CIGARETTES. PT NOTIFIED THAT HE IS UNABLE TO SMOKE WHILE IN THE HOSPITAL AND OFFERED TO LOOKING NICOTINE PATCH. PT REFUSED.
--- NOTE | 2022-01-01 17:11 | NUR ---
PT SITTING IN RECLINER, AWAKE. CHAIR ALARM ON, CALL LIGHT WITHIN REACH. PT DENIES ANY NEEDS AT THIS TIME.
--- NOTE | 2022-01-01 17:44 | NUR ---
PT SITTING UPRIGHT IN CHAIR, EATING DINNER DEMONSTRATING GOOD APPETITE. PT DENIES ANY FURTHER NEEDS, CALL LIGHT WITHIN REACH, CHAIR ALARM ON.
--- NOTE | 2022-01-01 18:01 | NUR ---
PT CHAIR ALARM SOUNDED SO THIS CNA2 WENT IN TO ROOM TO ASSIST PT. HE WAS STANDING IN FRONT OF CHAIR AND I ASKED HIM WHERE HE WAS HEADED AND HE STATED "I'M CATCHING A RIDE WITH HIM" AND POINTS TOWARDS HIS LEFT SIDE. I ASKED THE PT "WHO IS HE? IS HE HERE?" HE SAID "YES! HE'S STANDING RIGHT THERE, HE'S WAITING FOR ME TO LOAD UP AND GO TO THE DALLES". I ASKED WHAT THE LUIGI NAME WAS AND HE STATED HE DIDNT KNOW HE WAS JUST READY FOR HIM TO GO. I CALLED HIS RN INTO ROOM TO ASSIST AND REDIRECT HIM TO GET INTO BED. PT SITUATED AND TURNED TV ON TO WESTERNS HE IS CONTENT. CALL LIGHT IN REACH, WATER REFILLED.
--- NOTE | 2022-01-01 18:22 | NUR ---
PT RESTING IN BED, EYES CLOSED. BREATHING EVEN AND UNLABORED. CALL LIGHT WITHIN REACH.
--- NOTE | 2022-01-01 18:58 | NUR ---
PT LAYING IN BED, RESTING, EYES CLOSED. BREATHING EVEN AND UNLABORED. CALL LIGHT WITHIN REACH.
--- NOTE | 2022-01-01 19:33 | NUR ---
RECEIVED REPORT FROM REED TERRY. PT IS LAYING IN BED W/EYES CLOSED. RESPIRATIONS ARE EVEN AND UNLABORED, NO SIGNS OF DISTRESS. BED ALARM ON, CALL LIGHT WITHIN REACH.
--- NOTE | 2022-01-01 20:50 | NUR ---
x2 CNAs IN TO BOOST PT IN BED, HOB AT 30, NO FURTHER NEEDS
--- NOTE | 2022-01-01 22:35 | NUR ---
IN PT ROOM D/T DONE WITH ENSURE, NO DIFFICULTY SWALLOWING. PT UP TO BATHROOM W/1PA W/FWW. COMPLETE BED CHANGE PERFORMED D/T LARGE INCONTINENCE. VENESSA CARE PERFORMED D/T LARGE BM IN DEPENDS. URINAL PLACED AT BEDSIDE. PERFORMED, NEW GOWN IN PLACE, NEW DEPENDS IN PLACE. PT ORIENTED TO ALL BUT DATE/TIME/EVENT. ALLEYVNS STILL IN PLACE X2 FOR BONY PROMINENCES ON BACK. LUNGS CLEAR THROUGHOUT. PT FOLLOWING DIRECTIONS AT THIS TIME. NEW COBAN AND SOCK PLACED ON IV SITE, WNL AND CONTINUOUS FLUIDS RUNNING DIRECTED (SEE EMAR). PT NOW RESTING IN BED WATCHING TV. PT REPORTS NO PAIN, NAUSEA, N/T, DIZZINESS, OR SOB. CALL LIGHT WITHIN REACH, BED ALARM ON, NO FURTHER NEEDS AT THIS TIME.
--- NOTE | 2022-01-01 23:21 | NUR ---
PT AWAKE AND ALERT WATCHING TV IN BED. CHOCOLATE ENSURE PROVIDED D/T REPORTED DECREASE APPETITE DURING DAY SHIFT. CALL LIGHT WITHIN REACH, HOB ELEVATED TO 90 DEGREES.
--- NOTE | 2022-01-02 00:29 | NUR ---
PT RESTING IN ROOM WITH EYES CLOSED, RESPIRATIONS ARE EVEN AND UNLABORED, NO SIGNS OF DISTRESS. CALL LIGHT WITHIN REACH, BED ALARM ON.
--- NOTE | 2022-01-02 03:46 | NUR ---
PT RESTING ON BACK WITH EYES CLOSED. RESPIRATIONS ARE EVEN AND UNLABORED, NO SIGNS OF DISTRESS. CALL LIGHT WITHIN REACH, BED ALARM ON.
--- NOTE | 2022-01-02 06:05 | NUR ---
IN PT ROOM FOR ASSESSMENT AND ASSISTANCE WITH PT IN BATHROOM. PT HAD LARGE EPISODE OF INCONTINENCE IN BED AND URINATED ON BATHROOM FLOOR AFTER STANDING UP FROM TOILET. VENESSA CARE PERFORMED, LOWER EXTREMETIES CLEANED WITH BATH WIPES, NEW DEPENDS IN PLACE. PT NOW SITTING IN CHAIR WITH WARM BLANKET, FRESH ICE WATER IN HAND, AND CHAIR ALARM ON. CALL LIGHT WITHIN REACH, IV FLUIDS RUNNING DIRECTED, NO FURTHER NEEDS AT THIS TIME. NO ACUTE CHANGES FROM PREVIOUS ASSESSMENT. PT REPORTS NO PAIN, NAUSEA, DIZZINESS, SOB.
--- NOTE | 2022-01-02 06:25 | NUR ---
UNEVENTFUL NIGHT FOR PT. PT SLEPT MAJORITY OF THE NIGHT. UP X2 FOR BEDDING CHANGE AND TO USE RESTROOM. PT LARGE EPISODE OF INCONTINENCE AND LARGE BM IN DEPENDS, VENESSA CARE PERFORMED. RA. URINE OUTPUT SUFFICIENT. ORIENTED TO ALL BUT TIME/DATE/EVENT OF ADMIT. PT FLAT AFFECT AND OCCASIONALLY FOLLOWS DIRECTIONS. LACK OF APPETITE BUT FULL ENSURE DRANK. REFUSES TO TOLERATE SCD'S. [address] ON BONY PROMINENCES. ABLE TO ADJUST SELF IN BED, NO SIGNS OF SKIN BREAKDOWN. NO AM LABS.
--- NOTE | 2022-01-02 07:25 | NUR ---
RECIEVED SHIFT REPORT. PT RESTING IN BED, CALL LIGHT WITHIN REACH.
--- NOTE | 2022-01-02 07:47 | NUR ---
PT CHAIR ALARM SOUNDED SO THIS CNA2 ASSISTED PT. HE HAD INCONTINENCE IN HIS BRIEF SO I PERFORMED VENESSA CARE AND CHANGED BRIEF. PT STOOD IN FRONT OF CHAIR W/STBY ASSIT, NO HANDS ON. PT IS BACK IN CHAIR W/WARM BLANKET, FRESH WATER AND ORANGE JUICE. CHAIR ALARM RESET, CALL LIGHT IN REACH
--- NOTE | 2022-01-02 08:08 | NUR ---
PT SITTING UP IN CHAIR WITH TV ON. WARM BLANKET PROVIDED. BREAKFAST ARRIVED AND ASSISTED PT WITH SET UP. CALL LIGHT WITHIN REACH, PT DENIES ANY FURTHER NEEDS AT THIS TIME.
--- NOTE | 2022-01-02 08:14 | NUR ---
PT UP IN RECLINER EATING BREAKFAST. PT DISORIENTED TO EVENT, SITUATION, AND PLACE. DENIES PAIN AT THIS TIME. CHAIR ALARM ON, CALL LIGHT WITHIN REACH.
--- NOTE | 2022-01-02 08:52 | NUR ---
Patient is sittng up in the chair drinking coffee.Patient states at this time he will be going home to his apartment where he lives with Lele. Jairo says this is the plan for now,but it might change if he finds somewhere else.
--- NOTE | 2022-01-02 09:07 | NUR ---
THIS SN INTO PT ROOM WITH INSTRUCTOR (DAVID MORRIS) TO GIVE AM MEDICATIONS (SEE EMAR). PT SITTING UP IN CHAIR WATCHING WESTERNS. PT WAS ABLE TO GIVE NAME AND DATE OF ACCURATELY, AND WHEN ASKED WHAT TODAY'S DATE WAS, REPLIED "THE 4TH OR 5TH". PT WAS ALSO ABLE TO TEACH-BACK REASON FOR MEDICATION ADMINISTRATION. PT TOLERATED PILL WELL WITH DRINK. CALL LIGHT WITHIN REACH, BED ALARM ON.
--- NOTE | 2022-01-02 09:31 | NUR ---
PT IN RECLINER, PT ABLE TO STATE WHERE HE WAS AT, AND STATES "IM HERE BECAUSE I CANT WALK". DENIES ANY PAIN AT THIS TIME. CHAIR ALARM IS ON AND IN PLACE. CALL LIGHT WITHIN REACH.
--- NOTE | 2022-01-02 10:03 | NUR ---
PT SITTING IN RECLINER. PHYSICAL THERAPY WORKING WITH PATIENT AT THIS TIME.
--- NOTE | 2022-01-02 10:15 | NUR ---
THIS SN INTO PT ROOM TO PERFORM ASSESSMENT, TAKE VS, AND RECORD I&O'S. PT SITTING UPRIGHT IN CHAIR. WHEN PT WAS ASKED IF HE KNEW WHERE HE WAS, HE RESPONDED "[facility]". PT ANSWERED CALL ON CELLULAR PHONE. CALL LIGHT WITHIN REACH, BED ALARM ON.
--- NOTE | 2022-01-02 10:51 | NUR ---
SPOKE TO ROSE, LARRY'S FRIEND WHERE HE LIVES AT THIS TIME.ROSE STATES HE CAN NOT TAKE LARRY BECAUSE " ROSE HAS HEALTH ISSUES" AND LARRY DOES NOT LISTEN TO HIM. ROSE SAYS LARRY IS TO MUCH WORK. SO NO LARRY CAN NOT COME BACK.
--- NOTE | 2022-01-02 11:25 | NUR ---
SPOKE TO LARRY ABOUT GOING TO ASSISSTIVE LIVING IN [place]. Patient IS AGREEABLE SINCE HE HAS NO WHERE TO LIVE BECAUSE HIS ROOMMATE WILL NOT LET HIM COME BACK HOME.
--- NOTE | 2022-01-02 11:39 | NUR ---
PT IN RECLINER, AWAKE. CHAIR ALARM ON, CALL LIGHT WITHIN REACH.
--- NOTE | 2022-01-02 12:16 | NUR ---
[facility] CONTACTED AND RECORDS SENT.FELIPE CALLED AND TURNED DOWN PLACEMENT AT THIS [place] FOR PATIENT AT [facility].
--- NOTE | 2022-01-02 12:30 | NUR ---
PT IN RECLINER, AWAKE. CHAIR ALARM ON. CALL LIGHT WITHIN REACH.
--- NOTE | 2022-01-02 14:51 | NUR ---
PT RESTING IN HIS CHAIR, EYES CLOSED. CHAIR ALARM ON. CALL LIGHT WITHIN REACH. BREATHING EVEN AND UNLABORED
--- NOTE | 2022-01-02 14:53 | NUR ---
PT IN RECLINER. PT IS CONFUSED AT THIS TIME STATING HE IS AT THE "[facility], TODAY IS HIS BIRTHDAY AND HE IS TRYING TO REMEMBER HOW TO RUN THE AIR PLANES." PT REDIRECTED HE IS AT THE [facility] AND THE DATE. PT CONTINUES TO DISAGREE. PT DENIES PAIN AT THIS TIME. CALL LIGHT WITHIN REACH. CHAIR ALARM ON.
--- NOTE | 2022-01-02 15:00 | NUR ---
PT IN RECLINER, EYES CLOSED, BREATHING EVEN AND UNLABORED. CHAIR ALARM ON. CALL LIGHT WITHIN REACH.
--- NOTE | 2022-01-02 16:00 | NUR ---
CHAIR ALARM RINGING. THIS NURSE TO BEDSIDE TO FING PT WITH URINE SATURATED CLOTHS AND LINENS. PT ASSISTED TO BATHROOM FOR SHOWER. PT SHOWER WITH ASSISTENCE BUT DID MOST CARES INDEPENDENTLY. LINENS CHANGED. PT ASSITED BACK TO BED. BED ALARM IN PLACE AND ENSURE PROVIDED.
--- NOTE | 2022-01-02 16:48 | NUR ---
AMBULATED PT TO BATHROOM TO ATTEMPT TO VOID. PT DENEIS NEED TO VOID BUT ONCE IN BATHROOM VOIDED LARGE UNMEASURED VOID IN TOILET. PT THEN ASSISTED BACK TO BED. BED ALARM IN PLACE.
--- NOTE | 2022-01-02 16:49 | NUR ---
pt layin in bed resting, eyes closed, breathing even and unlabored. bed alarm on. call light within reach.
--- NOTE | 2022-01-02 17:57 | NUR ---
PT LAYING IN BED, AWAKE. STATES IS NOT HUNGRY FOR DINNER. DENIES ANY PAIN. PT INCONT. OF URINE. BED ALARM ON. CALL LIGHT WITHIN REACH.
--- NOTE | 2022-01-02 18:09 | NUR ---
PT LAYING IN BED. GIVEN CARVEDILOL GIVEN EARLY DUE TO ELEVATED BP (SEE VS HISTORY). GAVE OKAY TO GIVE.
--- NOTE | 2022-01-02 18:11 | NUR ---
DR CALLED BACK TO FLOOR. INFORMED MD OF ELEVATED BP. VERBAL ORDER RECEIVED TO ADMISNTER COREG EARLY. PRIMARY NURSE NOTIFIED.
--- NOTE | 2022-01-02 18:50 | NUR ---
PT REQUESTING CLOTHES, WANTING TO LEAVE TO SMOKE A CIG. PT REMINDED HE IS IN THE HOSPITAL, PT STATES OTHERWISE. ROMAN IN ROOM TO TAKE PT TO THE REST ROOM.
--- NOTE | 2022-01-02 20:47 | NUR ---
PT ASSISTED WITH URINAL AFTER GET OOB, PT INCONT AT THIS TIME, NEW GOWN, CHUX, LINENS, ATTENDS IN PLACE, ASSISTED RN WITH VS, BED ALARM RESUMED, NO FURTHER NEEDS AT THIS TIME
--- NOTE | 2022-01-02 20:47 | NUR ---
PT ALARM GOING OFF, OUT OF BED "LEONELA GOING SOMEWHERE TO BUY CIGARRETTS" REDIRECTED, AFTER SEVERAL CUES, BACK TO BED WAS INCONTINENT OF URINE, BEDDING AND ATTENDS CHANGED, SKINC ARE, ALLEVYN TO BUTTOCKS AREA IN PLACE, STABLE GAIT AT THIS TIME, WAS WALKING INDEPENDENTLY IN ROOM. ALERT TO SELF. IRRITABLE AT [facility], BETTER, REORIETED TO HOSPITAL STAY AND POLICIIES, NOT RECEPTIVE. COOP WITH ASSESSMENT, BED ALARM ON. MARITZA PER NICOTINE PATCH
--- NOTE | 2022-01-02 22:02 | NUR ---
PT USING THE URINAL, PT HAD SET OFF THE BED ALARM REACHING THE BEDSIDE TABLE
--- NOTE | 2022-01-03 00:51 | NUR ---
hob elevated, O2 1LNC, cpox post op in place sats 96%, pulse 60, no resp distress, call light and fluids at hands reach
--- NOTE | 2022-01-03 00:58 | NUR ---
on room air, resting, eyes closed, no distress, bed alrm in place. call light and fluids at hands reach
--- NOTE | 2022-01-03 02:37 | NUR ---
on room air, eyes closed, no distress, moving extremities and turns self in bed, call light and fluids at bedside, bed alarm on
--- NOTE | 2022-01-03 04:17 | NUR ---
oN ROOM AIR, TURNS AND REPOSITINS SELF IN BED, FLUIDS AND CALL LIGHT AT HANDS REACH, BED ALRM ON
--- NOTE | 2022-01-03 06:11 | NUR ---
Pt was irritable and upset at begining of shift, trying to leave facility to go out and buy smokes. redirected and back to bed. 1pa/fww, incontinent of large amounts of urine and bowels several times, GILBERTO SL patent. tolerating liquids well, no emesis, no c/o pain. Bed alarm in place
--- NOTE | 2022-01-03 07:20 | NUR ---
recieved shift report. pt laying in bed resting. call light within reach. bed alarm on.
--- NOTE | 2022-01-03 08:50 | NUR ---
PT AWAKE IN CHAIR EATING BREAKFAST. PT DIORIENTED TO PLACE, EVENT, DATE, AND SURROUNDINGS. PT BELIEVES HE IS IN [place] GETTING SURGERY. EXPLAINED TO PT WHERE HE IS AND WHY. PT DENIES PAIN AT THIS TIME. CALL LIGHT WITHIN REACH. CHAIR ALARM ON.
--- NOTE | 2022-01-03 09:50 | NUR ---
PT LAYING IN BED AT THIS TIME, AWAKE. BED ALARM ON. CALL LIGHT WITHIN REACH.
--- NOTE | 2022-01-03 10:36 | NUR ---
PT IN BED, EYES CLOSED, BREATHING EVEN AND UNLABORED. BED ALARM ON. CALL LIGHT WITHIN REACH.
--- NOTE | 2022-01-03 11:28 | NUR ---
PT RESTING IN BED, EYES CLOSED, BREATHING EVEN AND UNLABORED. CALL LIGHT WITHIN REACH. BED ALARM ON.
--- NOTE | 2022-01-03 13:13 | NUR ---
PT LAYING IN BED, AWAKE. BED ALARM ON. CALL LIGHT WITHIN REACH.
--- NOTE | 2022-01-03 14:14 | NUR ---
IN FOR VITAL SIGNS. PT WITHOUT VOID. PT STOOD AT EDGE OF BED AND VOIDED 200. ATTENDS DRY. VITALS WNL. PT GOT SELF BACK IN BED INDEPENDENTLY. BED ALARM PLACED.
--- NOTE | 2022-01-03 14:27 | NUR ---
PT LAYING IN BED, AWAKE. BED ALARM ON, CALL LIGHT WITHIN REACH.
--- NOTE | 2022-01-03 15:03 | NUR ---
THIS RN IN ROOM TO ASSIST PT TO THE BATHROOM. PT AMBULATED, 1PA WITH A FWW. PT IN CHAIR, CHAIR ALARM ON, CALL LIGHT WITHIN REACH.
--- NOTE | 2022-01-03 17:33 | NUR ---
PT SITTING UP IN BED EATING DINNER, REFUSES TO GET TO CHAIR X4. VITAL SIGNS TAKEN AND I&O'S RECORDED. PT DENIES FURTHER NEEDS AT THIS TIME. DRY ATTENDS.
--- NOTE | 2022-01-03 18:33 | NUR ---
PT IS LAYING IN BED, AWAKE. CALL LIGHT WITHIN REACH.
--- NOTE | 2022-01-03 19:27 | NUR ---
Pt in bed, calm on room air, was walked to and attends changed as he was incontinent.
--- NOTE | 2022-01-03 19:45 | NUR ---
Pt in chair, up to br, voided, back to chair, took Coumadin and sips of water, Coop with assessment, On 1LNC, pleasant, cooperative, clear speech, alert to self and situation. chair alarm in place, legs elevated. Abd soft firm large, denies problems. scabbed over healing area R above knee area. call light at hands reach
--- NOTE | 2022-01-03 20:47 | NUR ---
PT IN BED, FLAT AFFECT, COOPERATIVE WITH ASSESSMENT. ON ROOM AIR, LUNGS CLEAR BILAT, ABD SOFT. WAS INCONTINENT OF URINE, SKIN CARE, ATTENDS CHANGED. CLEMENTINE MACIAS PATENT. COOPERATIVE, OJ JUICE GIVEN WITH MEDS. NO C/O PAIN, NICOTINE PATCH REMOED R BACK. BED ALRM ON PER FALL PRECAUTIONS. PT WATCHING TV. CALL LIGHT AT HANDS REACH
--- NOTE | 2022-01-03 21:40 | NUR ---
2124 - WALKING BY ROOM NOTED THAT PT HAD TAKN COBAN DRESSING OFF THAT WAS PLACED OVER SL. PULLING AT SL DRESSING. REDIRECTED, COBAN REPLACED. 230 - PT TOOK COBAN DRESSING OFF. FLAT AFFECT, REDIRECTED, COBAN REPLACED AGAIN FOLLOWED BY KERLIX DRESSING AND LEONARDO WRAP. HE JUST TOOK LEONARDO WRAP DRESSING OFF AGAIN. REDIRECTED, ELSIE LEFT ON. CONT TO OBSERVE FOR FURTHER PT PULLING AT DRESSING, IV SITE
--- NOTE | 2022-01-03 23:56 | NUR ---
AWAKE, CALM, WATCHING TV, ON ROOM AIR. DRESSING OVER L SL INTACT
--- NOTE | 2022-01-04 00:44 | NUR ---
bed alrm going off, pt getting out of bed, incontinent of urine, 1pa/fww walked to br, voided small amount too and had a small soft bm. did own care, back to bed, small pimple with white center intact, non tender. coop with assessment, back to bed, total bed changed and clean gown and attends
--- NOTE | 2022-01-04 01:29 | NUR ---
pulling at dressing over IV site, redirecvted, awake, flat irritable affect.. call light and fluids t hands reach. Bed alarm in place
--- NOTE | 2022-01-04 02:44 | NUR ---
bed alrms going off again. pt awake, restless trying to get out of be "Brooks going home, my is waiting for me", redirected, semireceptive, back to bed, bed alrm in place
--- NOTE | 2022-01-04 03:12 | NUR ---
bed alrm going off, pt trying to get out of bed," I need to go home" redirected back to bed, incontinent of urine, attend changed,bed alerm on alarm on
--- NOTE | 2022-01-04 03:59 | NUR ---
Pt calmer, eyes closed, no distress, fluids and call light at hands reach. Bed alarm in place
--- NOTE | 2022-01-04 04:53 | NUR ---
Pt on room air, flat affect. Has been restless and irritable off and on this shift. Pulling at IV site, patent at thist martha, covered and pt taken dressing off several times, currently Kerlix dressing over IV SL site. Pt is incoantinent of urine and bladder, changed several times, has not used to urinal, Up to br twice 1PA/FWW. Back to bed. Has been trying and was succfessful getting out of sbed severalt imes, "Mywife is waiting for me, my firned s are coming over, I need to and pick my friends at the [place]" redirected. Back to bed. semireceptive to instructions. Currently resting at this time, eyes closed, no distress, Tolerating liquids well. does not use call light. Bed alrm on for precautions.
--- NOTE | 2022-01-04 05:42 | NUR ---
Bed alarm going off. pt irritable, trying to get out of bed, redirectable attends changed, incontinent, skinc are done. Back to chair, more pleasant. chair alarm in place. fluids and call light by hands darcie, legs elevated in chair
--- NOTE | 2022-01-04 07:13 | NUR ---
PT AWAKE IN BED. DENIES FURTHER NEEDS. AT BEDSIDE. CALL LIGHT WITHIN REACH.
--- NOTE | 2022-01-04 07:17 | NUR ---
RECEIVED SHIFT REPORT. PT IN RECLINER, EYES CLOSED. BREATHING EVEN AND UNLABORED. CHAIR ALARM ON. CALL LIGHT WITHIN REACH.
--- NOTE | 2022-01-04 07:55 | NUR ---
PATIENT UP IN CHAIR FOR MEAL. DID NOT WANT TO DO AM CARE, WILL APPROACH LATER. CALL LIGHT WITHIN REACH.
--- NOTE | 2022-01-04 09:29 | NUR ---
PT IN CHAIR EATING BREAKFAST. PT DENIES PAIN AT THIS TIME. DISORIENTED TO ALL BUT PERSON. PT STATES HE IS [place]". DENIES ANY FURTHER NEEDS. CALL LIGHT WITHIN REACH. CHAIR ALARM ON
--- NOTE | 2022-01-04 10:30 | NUR ---
PT UP IN RECLINER, AWAKE WATCHING TV. CHAIR ALARM ON. CALL LIGHT WITHIN REACH.
--- NOTE | 2022-01-04 11:28 | NUR ---
PT RESTING IN BED, EYES CLOSED. BREATHING EVEN AND UNLABORD. CALL LIGHT WITHIN REACH, CHAIR ALARM ON.
--- NOTE | 2022-01-04 12:20 | NUR ---
PT IN RECLINER, EATING LUNCH. CALL LIGHT WITHIN REACH. CHAIR ALARM ON.
--- NOTE | 2022-01-04 13:00 | NUR ---
PATIENT INCONTINENT OF STOOL, UP TO BATHROOM TO GET CLEANED UP. PATIENT UP TO AMBULATE IN HALLWAY WITH 1PA AND FWW.
--- NOTE | 2022-01-04 13:22 | NUR ---
PT IN RECLINER, AWAKE. CALL LIGHT WITHIN REACH. AT BEDSIDE. CHAIR ALARM ON.
--- NOTE | 2022-01-04 14:35 | NUR ---
PT IN RECLINER, AWAKE. PT CONTINUES TO BE DISORIENTED TO ALL. DENIES PAIN AT THIS TIME. CALL LIGHT WITHIN REACH. CHAIR ALARM ON.
--- NOTE | 2022-01-04 16:15 | NUR ---
PT SITTING IN CHAIR, AWAKE. CALL LIGHT WITHIN REACH. CHAIR ALARM ON.
--- NOTE | 2022-01-04 17:23 | NUR ---
PATIENT IN BED WATCHING TV AFTER MEAL. VITALS AND I/O'S COMPLETED, PT HAS NO OTHER NEEDS AT THIS TIME. BED ALARM IS ON. CALL LIGHT WITHIN REACH.
--- NOTE | 2022-01-04 21:30 | NUR ---
PT DROWSY, EYES CLOSED, NO IDSTRESS, AWAKES EASILY, WAS INCONTINENT OF LARGE AMOUNT OF URINE AND BM. SKIN CARE, BEDDING AND GOWN CHANGED. COOPERATIVE, ASSESSMENT COMPLETED. SL GILBERTO PATENT, COVERED WITH COBAN, LEONARDO WRAP REMOVED AND REWRAPPED. REPOSITIONED IN BED. BED LARM IN PLACE,
--- NOTE | 2022-01-04 21:50 | NUR ---
ASSISTED PRIMARY RN MARICRUZ. CHANGED PATIENT'S INCONTINENT URINE AND A SMEAR OF BM. CHANGED GOWN, CHUX, SHEETS AND BLANKET. WARM BLANKET PROVIDED. V/S AND I&O'S COMPPLETED.
--- NOTE | 2022-01-04 23:54 | NUR ---
Bed alrm going off, pt plaed legs between rails. Noted that he pulled his IV out, tip intact, coban applied. Was incontinent of large amount of urine smear of bm, skin care, clean attends, gown chaged, 1PA/FWW back to bed, tolerated well. flat affect. "Wheres my care" redirected, back on bed tolerated sips of fluids, Bed alrm on . will notify MD about pt pulling SL
--- NOTE | 2022-01-05 01:11 | NUR ---
Pt on room air, moving extremities, eyes closed, bed alarm inplace
--- NOTE | 2022-01-05 04:46 | NUR ---
Pt has slept this shift.. forgetful, flat affect. on room air. inc of urine and smears of bm. skin care. Allevyn to coccyx and low buttocks area intact. Redirectable. Pt pulled IV site out intentionally, redirected, states that he is ready to go home. Up to br w 1PA, ambulated well. bed and gown changes . tolerating diet and fluids well. Bed alarm in place. fall precautions
--- NOTE | 2022-01-05 06:54 | NUR ---
Dr Babcock notified of pt pulling IV out earlier. "No need to restart IV"
--- NOTE | 2022-01-05 07:30 | NUR ---
THIS RN RECEIVED SHIFT REPORT FROM HARRISON ALCANTARA. PATIENT RESTING QUIETLY IN BED IN LOW FOWLERS POSITION, EYES CLOSED, RESPIRATIONS ARE REGULAR AND EVEN, AND CALL LIGHT IS IN REACH. PATIENT HAS NO NURSE CARE NEEDS AT THIS TIME.
--- NOTE | 2022-01-05 08:40 | NUR ---
LEFT MESG FOR TILA AT [facility] TO CONFIRM CONFIGURATION MANAGEMENT ARCHITECT DISABILITY ELIGABILITY.
--- NOTE | 2022-01-05 08:58 | NUR ---
PT RESTING IN BED. VITALS TAKEN. IS AND OS NOT COMPLETE PT IS STILL EATING BREAKFAST. NO FURTHER NEEDS. CALL LIGHT WITHIN REACH.
--- NOTE | 2022-01-05 09:00 | NUR ---
THIS RN IN TO SEE PATIENT AND AM ASSESSMENT COMPLETE. PATIENT REFUSES TO GET OUT OF BED. [place] PATCH TO LEFT SHOULDER. AM B/P MED GIVEN. PATIENT EATING BREAKFAST NOW. CALL LIGHT IN REACH. PATIENT HAS NO OTHER CARE NEEDS AT THIS TIME.
--- NOTE | 2022-01-05 09:43 | NUR ---
IS AND OS COMPLETE. PT BRIEF CHECKED. BRIEF SOILED AND CHANGED. PT AGREED TO GETTING UP BUT SOON PT SAT UP IN BED, PT STATED THAT HE WOULD LIKE TO LAY BACK DOWN IN BED FOR AWHILE. PT ASSISTED BACK INTO LAYING INTO BED. NO FURTHER NEEDS. CALL LIGHT WITHIN REACH.
--- NOTE | 2022-01-05 09:52 | NUR ---
PER TILA AT [facility] PATIENT ATTEMPTED TO QUALIFY FOR [facility] DUE TO BEING TO AMBULATORY. WILL UPDATE HEALTH PRACTICE MANAGER AND MD.
--- NOTE | 2022-01-05 09:55 | NUR ---
Spoke to Lele, who is Jairo's friend and who Jairo lived with prior to being hospitalized. Lele says Jairo can no live with him and he will not change is mind and this is final!
--- NOTE | 2022-01-05 10:08 | NUR ---
IN TALKING WITH THE PATIENT WITH CM WELL.
[2022-01-05] MEDS ORDERED: LOSARTAN POTASS25 MG PO (10:23)
[2022-01-05] MEDS ORDERED: CARVEDILOL25 MG PO (10:23)
[2022-01-05] MEDS ORDERED: KETOCONAZOLE15 GM TOP (10:26)
[2022-01-05] MEDS ORDERED: MYNEPHRON CAPSUL1 MG PO (10:27)
--- NOTE | 2022-01-05 10:27 | NUR ---
RECVD CALL BACK FROM ROSE FINN PATIENT ROOMATE. EXPLAINED THAT I HAVE SPOKEN WITH [facility] AND LARRY DID NOT QUALIFY FOR [facility] MEDICAID AFTER HIS LAST VISIT AT [facility]. ADVISED THAT UNFORTUNATRLY WHEN THE PATIENT CHOSE TO LEAVE [facility] IT WILL BE DIFFICULT FOR PLACEMENT FOR THE FUTURE. I ALSO ADVISED THAT THE PATIENT HAS BEEN SIGNED OFF BY PT AT THIS TIME. ROSE STATES THAT HE IS WILLING TO COME GET THE PATIENT, BUT WOULD LIKE TO SEE IF THERE ARE ANY CAREGIVING SERVICES AVAILABLE TO THE PATIENT AT THIS TIME. I ADVISED ROSE I WILL CONTACT TILA AT [facility] TO SEE IF ANYTHING IS AVAILABLE TO THE PATIENT AT THIS TIME. ROSE STATES HE WILL COME GET THE PATIENT WHEN HIS IS READY TO DC. DR. FERREIRA AND STAFF UPDATED.
--- NOTE | 2022-01-05 11:47 | NUR ---
THIS RN IN TO SEE PATIENT AND DC HIM TO HOME. PATIENT PULLED HIS OWN IV OUT EARLIER ON [employer], SO NO IV TO PULL. PATIENT DISINTERESTED ANY ALL HIS DC, F/U, MEDICATION, AND HOME CARE INSTRUCTIONS, SO INSTRUCTIONS ALSO GIVEN TO ROSE PATIENT'S FRIEND. PATIENT NODDED UNDERSTANDING AND ROSE VERBALIZED UNDERSTANDING OF INSTRUCTIONS. PATIENT'S PANTS WER COVERED IN URINE AND STOOL WHEN HE CAME IN, SO PATIENT DC'D IN [facility] AND HIS JACKET. ROSE DRIVING PATIENT BACK TO THERE HOME.
--- NOTE | 2022-01-05 11:47 | NUR ---
SPOKE WITH [facility] PRIOR TO DISCHARGE. [facility] ROSE STATES HE WILL CONTACT THE RESOURCES TODAY WHEN THEY RETURN HOME.
== END 2022-01-05 11:47 | disposition home or self-care (01) | DRG 640 ==
LOC: ED 15:33 → MS 15:35
PROVIDERS: ADMIT Internal Medicine; ATTEND Family Medicine
DX: E87.1 Hypo-osmolality and hyponatremia (principal); E43 Unspecified severe protein-calorie malnutrition; G93.41 Metabolic encephalopathy; D68.9 Coagulation defect, unspecified; Z68.1 Body mass index [BMI] 19.9 or less, adult; K70.30 Alcoholic cirrhosis of liver without ascites; E87.6 Hypokalemia; R29.6 Repeated falls; M54.9 Dorsalgia, unspecified; G89.29 Other chronic pain; L21.9 Seborrheic dermatitis, unspecified; I16.0 Hypertensive urgency; I10 Essential (primary) hypertension; D69.59 Other secondary thrombocytopenia; C10.9 Malignant neoplasm of oropharynx, unspecified; F17.210 Nicotine dependence, cigarettes, uncomplicated; Z20.822 Contact with and (suspected) exposure to COVID-19; Z98.890 Other specified postprocedural states; Z79.899 Other long term (current) drug therapy
CPT/HCPCS: 36415; 70470; 71045; 71260; 74177; 80048; 80053; 81001; 82140; 82306; 83735; 84100; 85025; 87502; A9270; J2405; J3475; J3480; J7030; J7120; J7121; Q9967; U0003

== ENCOUNTER 2022-01-13 12:00 | Inpatient (IN) | payer OTHER, MEDICARE ==
[~2022-01-13] VITALS: Ht 170.2 cm; Wt 49.9 kg
[~2022-01-13 12:00] MED LIST changes: +CARVEDILOL25 MG PO; +KETOCONAZOLE15 GM TOP; +LOSARTAN POTASS25 MG PO; +MYNEPHRON CAPSUL1 MG PO
--- NOTE | 2022-01-13 17:52 | EKG ---
[facility] [address] [facility] [facility] [address] [place] [address] Signed Normal sinus rhythm Cannot rule out Anteroseptal infarct (cited on or before 14-JAN-2021) Abnormal ECG When compared with ECG of 01-OCT-2021 08:19, premature ventricular complexes are no longer present premature supraventricular complexes are no longer present ST no longer depressed in Inferior leads T wave amplitude has decreased in Inferior leads QT has shortened Confirmed by RIAN CALERO MD ([id number]) on 01/13/2022 5:52:45 PM Electronically Signed By: RIAN CALERO MD 01/13/221751 PATIENT NAME: LARRY MCGOVERN Electrocardiogram DATE OF : 56 PHYSICIAN: RIAN CALERO MD REPORT #: [id number] REPORT IS CONFIDENTIAL AND NOT TO BE RELEASED WITHOUT AUTHORIZATION
[2022-01-29] MEDS ORDERED: LIPITOR40 MG PO (13:44)
[2022-01-29] MEDS ORDERED: LOSARTAN POTASS50 MG PO (13:45)
[2022-01-29] MEDS ORDERED: HYDRALAZINE HCL10 MG PO (13:45)
[2022-01-29] MEDS ORDERED: CARVEDILOL25 MG PO (13:45)
[2022-01-29] MEDS ORDERED: LO-DOSE ASPIRIN81 MG PO (13:46)
[2022-01-29] MEDS ORDERED: ARTHRICREAM85 GM TOP (13:46)
[2022-01-29] MEDS ORDERED: ONDANSETRON ODT4 MG SL (13:46)
== END 2022-01-29 14:50 | disposition home or self-care (01) | DRG 65 ==
LOC: ED 12:00 → MS 12:02
PROVIDERS: ADMIT Internal Medicine; ATTEND Internal Medicine
DX: I63.9 Cerebral infarction, unspecified (principal); N30.00 Acute cystitis without hematuria; I10 Essential (primary) hypertension; K70.30 Alcoholic cirrhosis of liver without ascites; Z85.819 Personal history of malignant neoplasm of unspecified site of lip, oral cavity, and pharynx; B95.7 Other staphylococcus as the cause of diseases classified elsewhere; R29.6 Repeated falls; Z20.822 Contact with and (suspected) exposure to COVID-19; E78.00 Pure hypercholesterolemia, unspecified; F17.210 Nicotine dependence, cigarettes, uncomplicated; Z95.828 Presence of other vascular implants and grafts; F10.10 Alcohol abuse, uncomplicated; Z79.899 Other long term (current) drug therapy
CPT/HCPCS: 36415; 70450; 71045; 80053; 80061; 81001; 82140; 83036; 84484; 85025; 87077; 87088; 87186; 87502; 93005; 93010; 93306; 93880; 97110; 97116; 97162; 97166; A9270; C9803; J0360; J0696; J2405; J7121; U0003